=== PATIENT | female | born 1960 | race Caucasian/White ===

== ENCOUNTER → 2016-06-30 | Outpatient (CLI) | payer MEDICARE, MEDICAID ==
[~2016-06-30] MED LIST: ABILIFY5 MG PO; ACYCLOVIR800 MG PO; AEROCHAMBER1 DEV IH; AK-TRACIN500 U/GM OP; ALBUTEROL2 PUFFS/17 IN; AMOXICILLIN AND1 TA2 PO; AMOXIL500 MG PO; ARIPIPRAZOLE5 MG PO; AUGMENTIN; AUGMENTIN1 TA2 PO; AZITHROMYCIN250 M1 PO; BACLOFEN 10MG T10 MG PO; BACTROBAN2% TP; BENADRYL 50MG C50 MG PO; BENZONATATE100 MG PO; BISOPROLOL5 MG PO; BREO ELLIPTA1 POW IH; BROMFED DM COU118 ML PO; BUSPAR 10MG TAB10 MG PO; BUSPIRONE 5MG TA5 MG PO; CEFDINIR 300MG300 MG PO; CEFUROXIME AXE500 MG PO; CETIRIZINE HCL10 MG PO; CHEWABLE ASPIRI81 MG PO; CIPRO 250MG TA250 MG PO; CLINDAMYCIN HC300 MG PO; CLONAZEPAM0.5 M1 PO; DARVOCET-N6 EACH/PAK PO; DIABETA5 MG PO; DICLOFENAC 50MG50 MG PO; DOXEPIN 25MG CA25 MG PO; DOXYCYCLINE HY100 M3 PO; DOXYCYCLINE HY100 M4 PO; DOXYCYCLINE100 M1 PO; EC NAPROSYN500 MG PO; ESCITALOPRAM20 MG PO; ETODOLAC200 MG PO; ETODOLAC400 MG PO; FLEXERIL10 MG PO; FLUOXETINE HYDR20 MG PO; FUROSEMIDE 20MG20 MG PO; FUROSEMIDE 40MG40 M1 PO; GABAPENTIN 600600 MG PO; GABAPENTIN300 M1 PO; GABAPENTIN300 MG PO; GLYBURIDE5 MG PO; GOLYTELY 44000 ML/BO PO; HUMALOG100 U/ML SC; HYDROXYYZINE PA25 MG PO; HYDROXYZINE 25M25 MG PO; HYDROXYZINE PAM25 MG PO; INDOMETHACIN50 MG PO; INSULIN GL100 UNITS/ SC; Isosorbide Mono60 MG PO; K-DUR 2020 MEQ PO; KEFLEX 500MG.500 MG PO; KEFLEX500 M1 PO; LASIX40 MG PO; LEXAPRO 20 MG T20 MG PO; LISINOPRIL HCTZ1 TAB PO; LISINOPRIL10 MG PO; LISINOPRIL2.5 MG PO; LOMOTIL 2.5MG.2.5 MG PO; LORTAB 5/500 501 TAB PO; LORTAB 500 MG-71 TAB PO; LOVASTATIN20 MG PO; LYRICA50 M1 PO; MACROBID 100MG100 M1 PO; MACROBID 100MG100 MG PO; MACROBID100 M3 PO; MEDROL 4MG. DOSE4 MG PO; MELOXICAM15 MG PO; MORGIDOX 1X100100 MG PO; MOTRIN 600MG.600 MG PO; Monodox100 MG PO; NAPROSYN500 M1 PO; NAPROXEN SODIU500 MG PO; NOVOLIN 70/30 710 ML SC; NOVOLOG FLEX100 U/ML SC; NOVOLOG MIX 70/10 M1 SC; OMEPRAZOLE40 MG PO; OMNICEF 300 MG300 MG PO; ONDANSETRON HYDR8 MG PO; ONDANSETRON4 M1 PO; PENTOXIFYL XR400 MG PO; PERCOCET 325 MG1 TA3 PO; PERCOCET 325 MG1 TA4 PO; PHENERGAN 25MG.25 M1 PO; POTASSIUM CHLO10 ME1 PO; POTASSIUM CHLO20 ME4 PO; PRAMIPEXOLE DIHY1 M1 PO; PREDNISONE 10MG10 MG PO; PREDNISONE20 MG PO; PREGABALIN 50MG50 MG PO; PROAIR HFA0.09 MG/AC INH; PROZAC 20MG CAP20 MG PO; ROBAXIN500 M1 PO; SINGULAIR10 MG PO; SYNTHROID 0.1M0.1 MG PO; SYNTHROID0.075 MG PO; TESSALON PERLE100 M1 PO; TESSALON PERLE100 MG PO; TIZANIDINE HCL 44 MG PO; TOPAMAX50 MG PO; TRAMADOL 50MG T50 M1 PO; TRAMADOL 50MG T50 MG PO; TRAMADOL HYDROC50 M1 PO; TRIMOX500 MG PO; TUSSIONEX PENN115 ML PO; TYLENOL W/CODEI1 TA2 PO; ULTRAM 50 MG TA50 MG PO; ULTRAM50 MG PO; VIBRAMYCIN 100100 MG PO; ZITHROMAX TRI-500 M1 PO; ZITHROMAX Z PA250 MG PO; ZITHROMAX Z-PA250 M1 PO; ZOFRAN ODT4 MG PO; ZYPREXA15 MG PO; ZYPREXA5 MG PO
[2016-06-30 18:55] LABS: LYMPH # 2.8 K/mm3 (0.7-4.5); LYMPH % 31.3 % (10-50.0)
== END ==
LOC: LAB 17:50
PROVIDERS: Nurse Practitioner Family
DX: D72.829 Elevated white blood cell count, unspecified (principal)

== ENCOUNTER 2016-07-04 14:32 | Emergency (ER) | payer MEDICARE, MEDICAID ==
[~2016-07-04] VITALS: Ht 167.6 cm; Wt 102.1 kg
[~2016-07-04 14:32] MED LIST changes: -BROMFED DM COU118 ML PO
[2016-07-04 15:13] LABS: HEMOGLOBIN 12.3 g/dL (12.2-16.2); LYMPH # 3.5 K/mm3 (0.7-4.5); LYMPH % 26.3 % (10-50.0)
[2016-07-04 15:39] LABS: BUN 18 mg/dL (7-18)
[2016-07-04 15:41] LABS: GFR (ESTIMATED) 74 ML/MIN (59-)
--- NOTE | 2016-07-04 16:36 | Emergency Room Report ---
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 N Clinical Suspician of Infection? N Mental Status: 1 - Regular (Normal Baseline) Sepsis Risk:Low Sepsis Risk Have you (or family members/close friends) recently traveled outside the [place]? N If Yes, where/when: Have you had exposure to infectious disease within the past month? N TB? Other? Specify: Comment The patient says she is here because her blood pressure was low at home, 83 systolic. She says that she had a "blackout spell" on the toilet and caught herself before she fell. She says that her family told her that she was very drowsy. She denies alcohol or drug use. She says she is not on any pain medications or sedating medications such as nerve pills were benzodiazepines. She says she has a chronic cough for 3-4 years due to chronic obstructive pulmonary disease. She has had vomiting and diarrhea for 3 weeks. She says she has seen her PCP and has been diagnosed with a virus. She says that she has some chronic hoarseness and is supposed to have a swallowing test tomorrow. She has artery been evaluated by ENT and they told her she did not have a mass in her throat. ALLERGIES Coded Allergies: Sulfa (Sulfonamide Antibiotics) (06/06/16) levofloxacin (From LEVAQUIN) (06/06/16) Home Medications Active Scripts Naproxen (Naprosyn 500MG Tab) 500 MG PO BID #14 TAB Prov: 06/13/16 Methylprednisolone (Medrol Dose Vikram) 4 MG PO UD #1 VIKRAM Prov: 06/13/16 Reported Medications Furosemide 40 MG PO BID #30 TAB Topiramate (Topamax) 50 MG PO DAILY Buspirone Hcl (Buspar 10MG) 10 MG PO TID IBUPROFEN (Motrin 600MG) 600 MG PO Q6HP PRN PAIN #90 Gabapentin 300 MG PO TID #90 TIZANIDINE HCL (Tizanidine Hcl 4 Mg Tablet) 4 MG PO Q8 #90 FLUTICASONE/VILANTEROL (Breo Ellipta 100-25 Mcg INH) 1 POW IH DAILY #60 Pentoxifylline 400 MG PO DAILY #60 Levothyroxine Sodium (Synthroid 0.1MG) 100 MCG PO DAILY INSULIN ASPART PROTAM & ASPART (Novolog Mix 70-30 Vial) 65 UNITS SC BID Lovastatin 10 MG PO DAILY #15 Lisinopril 10 MG PO DAILY #30 Escitalopram Oxalate (Lexapro 20MG) 20 MG PO DAILY PRAMIPEXOLE DI-HCL (Pramipexole Dihydrochloride) 1 MG PO TID #90 TAB Omeprazole (Omeprazole 40MG) 40 MG PO DAILY #30 History Medical History General CAD? No Angina: Yes [place]: No Hypertension? Yes Hyperlipidemia? No CHF? Yes DVT? No PE? No COPD? Yes Asthma? Yes Anemia? No GERD? No Gastric ulcers? No GI Bleed? No Hernia? Yes Thyroid Problems? No Hypothyroidism? No CVA? No Seizures? 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 Yes Renal Insuffiency? No End Stage Renal Disease? No UTI? Yes Stones? No BPH? No GB Disease: Yes Nephritic Syndrome? No Asplenia? No Hepatitis? No Sickle Cell Disease? No Arthritis? Yes Migraines? No Cataracts? Yes Glaucoma? No MRSA? No HIV? No TB? No Anxiety? No Depression? No Cancer? No More? 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 Respiratory cough (chronic), shortness of breath (chronic) Cardiovascular denies chest pain Gastrointestinal denies diarrhea, denies vomiting Physical Exam Vital Signs Vital Signs Date Time Temp Pulse Resp B/P Pulse O2 O2 Flow FiO2 Ox Delivery Rate 07/04 1613 68 16 115/62 97 07/04 1443 98.5 71 16 134/70 96 General Appearance obese Eye Exam - bilateral eye normal exam, bilateral eye PERRL, bilateral eye EOMI Ear, Nose, Throat hearing grossly normal, normal ENT inspection Neck normal inspection, non-tender, supple, full range of motion Respiratory Status Yes: trachea midline, chest symmetrical, non tender chest. No: respiratory distress. Lung Sounds bilateral: normal breath sounds, lungs clear. 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 Mental status normal mood/affect Skin warm/dry, multiple scars on her chest back and arms. She says she has a nervous condition causing her to pick her skin. Medical Decision Making LABS/Meds/Orders Pt receiving controlled substance in ED? No Results/Orders Laboratory Tests 07/04/16 1659: ABG pH 7.32 L, ABG pCO2 (Temp Corrct 41.1, ABG pO2 (Temp Correct 79.0 L, ABG HCO3 20.9 L, ABG Total CO2 22.2 L, ABG O2 Sat (Calculated) 95.4, ABG Base Excess -5.1 L, [place]acho Test Y, Blood Gas Comments R/R 07/04/16 1650: Opiates Screen NEGATIVE, Urine Methadone Screen NEGATIVE, Barbiturates NEGATIVE, Phencyclidine Screen NEGATIVE, Amphetamines Screen NEGATIVE, Benzodiazepines Screen NEGATIVE, Cocaine Screen NEGATIVE, Marijuana (THC) Screen NEGATIVE, Urine Color YELLOW, Urine Appearance CLEAR, Urine pH 6.0, Ur Specific [place] <= 1.005 , Urine Protein NEGATIVE, Urine Ketones NEGATIVE, Urine Blood NEGATIVE, Urine Nitrate NEGATIVE, Urine Bilirubin NEGATIVE, Urine Urobilinogen 0.2, Ur Leukocyte Esterase 1+ H, Urine WBC 5-10, Ur Squamous Epith Cells OCC, Amorphous Sediment 1+, Urine Glucose NEGATIVE 07/04/16 1457: TSH 1.26, Free T4 1.04 07/04/16 1457: Sodium 141, Potassium 3.5, Chloride 105, Carbon Dioxide 25, BUN 18, Creatinine 0.8, Estimated Creat Clear 125, Estimated GFR (MDRD) 74, Glucose 160 H, Calcium 8.9, Total Bilirubin 0.2, AST 12 L, ALT 18, Alkaline Phosphatase 90, Creatine Kinase 82, CK-MB (CK-2) Rel Index 2.2, CK and CKMB Interp 1.8, Troponin I < 0.02 , Total Protein 7.2, Albumin 3.3 L, Globulin 3.9 H, Albumin/Globulin Ratio 0.8 L, WBC 13.2 H, RBC 4.33, Hgb 12.3, Hct 37.4, MCV 86.5, RDW 14.5, Plt Count 308 , MPV 8.3, Gran % 66.0, Gran # 8.7 H, Lymphocytes % 26.3, Monocytes % 4.1, Eosinophils % 2.9, Basophils % 0.7, Lymphocytes # 3.5, Monocytes # 0.5, Eosinophils # 0.4, Basophils # 0.1, PUBS MCHC 33.0, MCH 28.6, Salicylates 5.2, Acetaminophen 0 L, Alcohols 0 Current Medication Orders Sig/Lyla Start time Last Medication Dose Route Stop Time Status Admin Sodium Chloride 10 ML PRN PRN 07/04 1500 AC IV 07/05 1448 Orders Procedure Date/time Status CULTURE, URINE 07/04 1650 Active URINALYSIS/COMPLETE 07/04 1643 Complete ARTERIAL BLOOD GAS REQUEST 07/04 1635 Active THYROID STIMULATING HORMONE 07/04 1634 Complete SALICYLATE 07/04 1634 Complete FREE T4 07/04 1634 Complete DRUG ABUSE SCREEN (TRIAGE) 07/04 1634 Complete ALCOHOL 07/04 1634 Complete Acetaminophen 07/04 1634 Complete WRAPAROUND FACILITATOR 07/04 1459 Active ELECTROCARDIOGRAM REQUEST 07/04 1458 Active IV SALINE LOCK 07/04 1448 Active CBC WITH AUTO DIFF 07/04 1448 Complete CARDIAC ENZYMES 07/04 1448 Complete CHEM 12 PROFILE 07/04 1448 Complete 12 LEAD EKG-LUCIANA (INITIAL) 07/04 UNK Active CM/EKG CM/EKG Comments EKG interpreted by Gee Meeks MD: Rhythm: sinus Rate: 67 [place]: normal Ectopy: none Conduction: First-degree AV block ST Segment Changes: none T Wave Changes: none Q Waves: none No evidence of acute ischemia or injury Progress - The patient had a chest CT done here on June 28, result reviewed. She refuses chest x-ray today. 5:30 PM: The patient says she feels better and wants to go home. Blood pressure rechecked, 121 systolic in the LEFT arm on 2 sequential readings. Departure Departure Disposition DC Home or Self Care(routine) Clinical Impression Primary Impression: History of hypotension Secondary Impressions: Drowsiness, Near syncope Condition STABLE Referrals Pablo SANCHEZ,Jose Rafael Franks (Family) Call for appointment, to be seen within 2 days Additional Instructions Return to the emergency department if your blood pressure drops again or if fainting or any other concern. ED Critical Care Critical Care No at [id number]
[2016-07-04 17:00] LABS: ALLEN'S TEST Y; ARTERIAL ABE -5.1 MMOL/L (-2.4-+2.3); ARTERIAL TCO2 22.2 MMOL/L (23-27); OXYGEN R/A
[2016-07-04 17:04] LABS: URINE BILIRUBIN - DIPSTICK NEGATIVE (NEG); URINE BLOOD NEGATIVE (NEG)
[2016-07-04 17:16] LABS: AMPHETAMINES/METAMPHETAMINES NEGATIVE ng/mL (<1000)
[2016-07-04 17:27] LABS: URINE SQUAMOUS CELLS OCC #/hpf (0-5)
[2016-07-04 17:45] VITALS: BP 121/76
[2016-09-12] MEDS ORDERED: MEDROL 4MG. DOSE4 MG PO (13:10)
[2016-09-12] MEDS ORDERED: ZITHROMAX Z PA250 MG PO (13:10)
[2016-09-12] MEDS ORDERED: BROMFED DM COU118 ML PO (13:10)
== END 2016-07-04 17:46 | disposition home or self-care (01) ==
LOC: ER 14:32
PROVIDERS: Emergency Medicine
DX: I95.9 Hypotension, unspecified (principal); R55 Syncope and collapse; E10.9 Type 1 diabetes mellitus without complications; Z79.4 Long term (current) use of insulin; Z72.0 Tobacco use; J44.9 Chronic obstructive pulmonary disease, unspecified; Z79.899 Other long term (current) drug therapy
CPT/HCPCS: G6040

== ENCOUNTER 2016-07-12 15:51 | Emergency (ER) | payer MEDICARE, MEDICAID ==
[~2016-07-12] VITALS: Ht 167.6 cm; Wt 102.5 kg
--- NOTE | 2016-07-12 16:00 | Emergency Room Report ---
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 N Clinical Suspician of Infection? N Mental Status: 1 - Regular (Normal Baseline) Sepsis Risk:Low Sepsis Risk Have you (or family members/close friends) recently traveled outside the [place]? N If Yes, where/when: Have you had exposure to infectious disease within the past month? N TB? Other? Specify: Source patient, RN notes reviewed, old records Exam Limitations no limitations Comment This is a 55-year-old female with a past medical history significant for chronic obstructive pulmonary disease, hypertension, congestive heart failure, diabetes mellitus who presents to the emergency department for sternal chest pressure that is nonradiating and began last night while at rest. No exacerbating or alleviating factors except for coughing which makes the pain worse. However, she does have pain at baseline even when not coughing. She has no history of coronary stents, but does have nonocclusive disease on cardiac cath 10/2015. She has no shortness of breath, vomiting, diaphoresis with a pressure. It is nonradiating. She has had pain like this before secondary to her chronic obstructive pulmonary disease. She denies any recent illnesses including no fevers. ALLERGIES Coded Allergies: Sulfa (Sulfonamide Antibiotics) (06/06/16) levofloxacin (From LEVAQUIN) (06/06/16) Home Medications Active Scripts Naproxen (Naprosyn 500MG Tab) 500 MG PO BID #14 TAB Prov: 06/13/16 Methylprednisolone (Medrol Dose Vikram) 4 MG PO UD #1 VIKRAM Prov: 06/13/16 Reported Medications Furosemide 40 MG PO BID #30 TAB Topiramate (Topamax) 50 MG PO DAILY Buspirone Hcl (Buspar 10MG) 10 MG PO TID IBUPROFEN (Motrin 600MG) 600 MG PO Q6HP PRN PAIN #90 Gabapentin 300 MG PO TID #90 TIZANIDINE HCL (Tizanidine Hcl 4 Mg Tablet) 4 MG PO Q8 #90 FLUTICASONE/VILANTEROL (Breo Ellipta 100-25 Mcg INH) 1 POW IH DAILY #60 Pentoxifylline 400 MG PO DAILY #60 Levothyroxine Sodium (Synthroid 0.1MG) 100 MCG PO DAILY INSULIN ASPART PROTAM & ASPART (Novolog Mix 70-30 Vial) 65 UNITS SC BID Lovastatin 10 MG PO DAILY #15 Lisinopril 10 MG PO DAILY #30 Escitalopram Oxalate (Lexapro 20MG) 20 MG PO DAILY PRAMIPEXOLE DI-HCL (Pramipexole Dihydrochloride) 1 MG PO TID #90 TAB Omeprazole (Omeprazole 40MG) 40 MG PO DAILY #30 History Medical History General CAD? No Angina: Yes [place]: No Hypertension? Yes Hyperlipidemia? No CHF? Yes DVT? No PE? No COPD? Yes Asthma? Yes Anemia? No GERD? No Gastric ulcers? No GI Bleed? No Hernia? Yes Thyroid Problems? No Hypothyroidism? No CVA? No Seizures? 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 Yes Renal Insuffiency? No End Stage Renal Disease? No UTI? Yes Stones? No BPH? No GB Disease: Yes Nephritic Syndrome? No Asplenia? No Hepatitis? No Sickle Cell Disease? No Arthritis? Yes Migraines? No Cataracts? Yes Glaucoma? No MRSA? No HIV? No TB? No Anxiety? No Depression? No Cancer? No More? 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/A Family History Family Hx Diabetes Yes CAD Yes Hypertension Yes Hyperlipidemia No Cancer Yes TB No Social History Smoking Hx Smoker: Current Every Day Smoker Tobacco: Yes Type Cigarettes Packs/day 1 1/2 - 2 Packs Alcohol Alcohol: No Review of Systems All Other Systems Reviewed and Negative Physical Exam Vital Signs Vital Signs Date Time Temp Pulse Resp B/P Pulse O2 O2 Flow FiO2 Ox Delivery Rate 07/12 1553 98.4 78 16 150/80 96 General Appearance normal appearance, WD/WN Eye Exam - bilateral eye normal exam, bilateral eye PERRL, bilateral eye EOMI Neck normal inspection, non-tender, supple, full range of motion Respiratory Status Yes: chest symmetrical, non tender chest. No: respiratory distress. Lung Sounds bilateral: normal breath sounds, lungs clear. Cardiovascular normal exam, regular rate/rhythm, no peripheral edema, no gallop, no JVD, no murmur, no rub, normal peripheral pulses Peripheral Pulses Pulses normal Yes Gastrointestinal normal bowel sounds, normal exam, non tender Back normal inspection, no CVA tenderness, no vertebral tenderness Neurologic alert, no motor/sensory deficits, oriented x 3 Skin intact, normal color, warm/dry Medical Decision Making LABS/Meds/Orders Pt receiving controlled substance in ED? No Results/Orders Laboratory Tests 07/12/16 1605: Sodium 142, Potassium 3.2 L, Chloride 105, Carbon Dioxide 27, BUN 15, Creatinine 0.7, Estimated Creat Clear 143, Estimated GFR (MDRD) 86, Glucose 107 H, Calcium 9.2, Total Bilirubin 0.3, AST 11 L, ALT 16, Alkaline Phosphatase 91, Creatine Kinase 87, CK-MB (CK-2) Rel Index 1.6, CK and CKMB Interp 1.4, Troponin I < 0.02, Total Protein 7.3, Albumin 3.5, Globulin 3.8 H, Albumin/Globulin Ratio 0.9 L, WBC 10.4, RBC 3.99 L, Hgb 11.4 L, Hct 33.0 L, MCV 82.8, RDW 15.6, Plt Count 317, Gran % 74.7, Gran # 7.8, Lymphocytes % 21.1, Monocytes % 4.2, Lymphocytes # 2.2, Monocytes # 0.4, PUBS MCHC 34.5, MCH 28.6 Current Medication Orders Sig/Lyla Start time Last Medication Dose Route Stop Time Status Admin Aspirin 324 MG ONCE ONE 07/12 1600 DC 07/12 PO 07/12 1601 1601 Aspirin 0 .STK-MED ONE 07/12 1600 DC .ROUTE Sodium Chloride 10 ML PRN PRN 07/12 1600 AC IV 07/13 1558 Aspirin 0 .STK-MED ONE 07/12 1558 DC .ROUTE Orders Procedure Date/time Status TROPONIN I 07/12 1900 Active ELECTROCARDIOGRAM REQUEST 07/12 1559 Active IV SALINE LOCK 07/12 1558 Active CBC WITH AUTO DIFF 07/12 1558 Complete CARDIAC ENZYMES 07/12 155 Complete CHEM 12 PROFILE 07/12 155 Complete 12 LEAD EKG-PRISCILLA (INITIAL) 07/12 UNK Active CM/EKG CM/EKG EKG rate (75), no evid. of ischemic chgs, normal QRS, normal MS XRAY/CT/US XRAY/CT/US XRAY chest Xray Results normal/NAD Departure Departure Disposition Against Medical Advice Clinical Impression Primary Impression: Chest pain Qualifiers: Chest pain type: unspecified Qualified Code: R07.9 - Chest pain, unspecified Condition STABLE Referrals Lois Egan (Family) ED Critical Care Critical Care No Comments Patient has a reassuring chest x-ray with no signs of a widened mediastinum, cardiac megaly, pneumothorax or focal consolidation to suggest pneumonia. Electrocardiogram does not show any signs of acute ischemia. Her vital signs are stable with no signs of worrisome hypo-or significant hypertension. She does not have any distress while in the emergency department. She was given a full strength aspirin. Her initial troponin is negative and a second is ordered at 1900. However, when I went to reassess the patient and discussed results she decided that she would not like to wait and wants to leave AGAINST MEDICAL ADVICE. I have discussed the risks of this including , disability, worsening condition in front of her and 3 other family members with her and she still states that she would like to go home and understands these risks. She has sound decision-making capacity and leaves AGAINST MEDICAL ADVICE. She did recently have a cardiac catheterization in October of last year which showed nonocclusive disease, and this is reassuring, but would not rule out unstable angina which I have explained to her. She will need to follow up with primary care provider tomorrow for reevaluation. Other differential diagnoses include esophageal spasm, costochondritis, bronchospasm, chest wall strain. at 1706
[2016-07-12 16:13] LABS: HEMOGLOBIN 11.4 g/dL (12.2-16.2)
[2016-07-12 16:14] LABS: LYMPH # 2.2 K/mm3 (0.7-4.5); LYMPH % 21.1 % (10-50.0)
--- NOTE | 2016-07-12 16:33 | RADIOLOGY REPORT PS360 ---
CHEST(2 VIEWS-NOT PORTABLE) HISTORY: Chest pain, pressure, cough CHEST PAIN COMPARISON: 06/21/2016 FINDINGS: The cardiomediastinal silhouette and pulmonary vascularity are within normal limits. There is a described opacity in the left lung base is no longer apparent consistent with improvement in atelectasis or infiltrate. The lungs are clear. Mild again change thoracic spine.. No acute bony abnormalities. IMPRESSION: No acute finding
[2016-07-12 16:48] LABS: BUN 15 mg/dL (7-18)
[2016-07-12 16:50] LABS: GFR (ESTIMATED) 86 ML/MIN (59-)
[2016-07-12 17:10] VITALS: BP 145/78
[2016-09-12] MEDS ORDERED: BROMFED DM COU118 ML PO (13:10)
[2016-09-12] MEDS ORDERED: MEDROL 4MG. DOSE4 MG PO (13:10)
[2016-09-12] MEDS ORDERED: ZITHROMAX Z PA250 MG PO (13:10)
== END 2016-07-12 17:11 | disposition left against medical advice (07) ==
LOC: ER 15:51
PROVIDERS: Emergency Medicine
DX: R07.9 Chest pain, unspecified (principal); J44.9 Chronic obstructive pulmonary disease, unspecified; I50.9 Heart failure, unspecified; E11.9 Type 2 diabetes mellitus without complications; Z79.4 Long term (current) use of insulin; I10 Essential (primary) hypertension; Z72.0 Tobacco use

== ENCOUNTER → 2016-07-17 | Outpatient (CLI) | payer MEDICARE, MEDICAID ==
[~2016-07-17] MED LIST changes: +BROMFED DM COU118 ML PO
== END ==
LOC: RAD 09:11
DX: R10.10 Upper abdominal pain, unspecified (principal); K86.89 Other specified diseases of pancreas

== ENCOUNTER 2016-08-29 20:57 | Emergency (ER) | payer MEDICARE, MEDICAID ==
[~2016-08-29] VITALS: Ht 167.6 cm; Wt 90.7 kg
[~2016-08-29 20:57] MED LIST changes: -BROMFED DM COU118 ML PO
--- NOTE | 2016-08-29 21:59 | Emergency Room Report ---
History of Present Illness Time Seen by MD Kaba ALLERGIES Coded Allergies: Sulfa (Sulfonamide Antibiotics) (08/15/16) levofloxacin (From LEVAQUIN) (08/15/16) Home Medications Active Scripts Naproxen (Naprosyn 500MG Tab) 500 MG PO BID #14 TAB Prov: 06/13/16 Reported Medications Furosemide 40 MG PO BID #30 TAB Topiramate (Topamax) 50 MG PO DAILY Buspirone Hcl (Buspar 10MG) 10 MG PO TID IBUPROFEN (Motrin 600MG) 600 MG PO Q6HP PRN PAIN #90 FLUTICASONE/VILANTEROL (Breo Ellipta 100-25 Mcg INH) 1 POW IH DAILY #60 Levothyroxine Sodium (Synthroid 0.1MG) 100 MCG PO DAILY INSULIN ASPART PROTAM & ASPART (Novolog Mix 70-30 Vial) 65 UNITS SC BID Lovastatin 10 MG PO DAILY #15 Escitalopram Oxalate (Lexapro 20MG) 20 MG PO DAILY Omeprazole (Omeprazole 40MG) 40 MG PO DAILY #30 History Medical History General CAD? No Angina: Yes [place]: No Hypertension? Yes Hyperlipidemia? No CHF? Yes DVT? No PE? No COPD? Yes Asthma? Yes Anemia? No GERD? No Gastric ulcers? No GI Bleed? No Hernia? Yes Thyroid Problems? No Hypothyroidism? No CVA? No Seizures? 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 Yes Renal Insuffiency? No End Stage Renal Disease? No UTI? Yes Stones? No BPH? No GB Disease: Yes Nephritic Syndrome? No Asplenia? No Hepatitis? No Sickle Cell Disease? No Arthritis? Yes Migraines? No Cataracts? Yes Glaucoma? No MRSA? No HIV? No TB? No Anxiety? No Depression? No Cancer? No More? 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 Respiratory denies cough, denies shortness of breath Cardiovascular denies chest pain, denies syncope Gastrointestinal denies abdominal pain, denies diarrhea, denies vomiting Genitourinary denies: dysuria, frequency, hesitancy, hematuria. Musculoskeletal denies back pain, denies joint pain, denies joint swelling, denies neck pain Skin denies rash Psychiatric/Neurological see HPI, headache, denies seizure Physical Exam Vital Signs Vital Signs Date Time Temp Pulse Resp B/P Pulse O2 O2 Flow FiO2 Ox Delivery Rate 08/29 2058 98.5 77 16 110/62 98 - WBC >12,000 or <4,000 or 10% bands? 2 or more SIRS Criteria Met? B/P:110/62 MAP:78 Creatinine >2.0? UA output<0.5ml/kg/hr for 2 hrs? Platelet count >100,000? Lactate >2.0mmol/1? INR >1.2 or PTT > than 60 sec? Evidence of Organ Dysfunction? Provider documented clinical suspician of infection? N Sepsis Criteria Count: 0 Sepsis Risk: Low Sepsis Risk General Appearance no apparent distress Eye Exam - bilateral eye PERRL, bilateral eye EOMI Ear, Nose, Throat normal ENT inspection Neck non-tender Respiratory Status No: respiratory distress. 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 No Results/Orders Orders Procedure Date/time Status DIET-NOTHING BY MOUTH 08/[address] HEAD W/O CONTRAST 08/[address] CERVICAL SPINE W/O CONT. 08/[address] HEAD REQ 03/[address] SCAN REQ 08/29 2105 Complete XRAY/CT/US XRAY/CT/US CT head, C-spine CT interpretation by discussed w/radiologist Time results known: 2156 CT Results no fracture seen Departure Departure Time of Disposition 2153 Disposition DC Home or Self Care(routine) Clinical Impression Primary Impression: Head contusion Qualifiers: Encounter type: initial encounter Contusion of head detail: scalp Qualified Code: S00.03XA - Contusion of scalp, initial encounter Condition STABLE Referrals Pablo SANCHEZ,Jose Rafael Franks (Family) Patient Instructions DI for Headache Additional Instructions fluids and see pcp Discharge Counseling Counseled pt/family regarding diagnosis, test results, follow up needs ED Critical Care Critical Care No at 2155
[2016-08-29 22:02] VITALS: BP 115/60
--- NOTE | 2016-08-30 05:08 | RADIOLOGY REPORT PS360 ---
CT HEAD W/O CONTRAST HISTORY: Headache following injury HIT HEAD ON WINDOW SILL ORDERING PHYSICIAN: Daniela Shah MD PATIENT AGE: 55 years COMPARISON: 09/01/2015 TECHNIQUE: Axial images obtained without contrast. Brain and bone windows reviewed. FINDINGS: No midline shift, mass effect, intracranial hemorrhage, hydrocephalus, or extra-axial fluid collection is evident. The calvarium has an unremarkable appearance. No mastoid effusion. The visualized paranasal sinuses are unremarkable. IMPRESSION: Negative CT head without contrast. No acute finding.
--- NOTE | 2016-08-30 05:11 | RADIOLOGY REPORT PS360 ---
CT CERVICAL SPINE W/O CONT INDICATION: Neck pain following injury HIT HEAD ON WINDOW SILL ORDERING PHYSICIAN: Daniela Shah MD PATIENT AGE: 55 years COMPARISON: None TECHNIQUE: Axial images are obtained without contrast. Sagittal and coronal reformatted images are reviewed as well. FINDINGS: No fracture or dislocation is evident. C2-C3, C3-C4, present unremarkable appearance. Minimal degenerative disc disease C4-C5. Degenerative disc disease C5-C6 with uncovertebral hypertrophy and left-sided foraminal narrowing and lateral recess narrowing area in C6-C7: Degenerative disc disease with endplate hypertrophic change. C7-T1 unremarkable. Lung apices are clear. Scattered small nodes are present within the neck. IMPRESSION: 1. No acute fracture. 2. Spondylosis of the cervical spine as described above
[2016-09-12] MEDS ORDERED: MEDROL 4MG. DOSE4 MG PO (13:10)
[2016-09-12] MEDS ORDERED: BROMFED DM COU118 ML PO (13:10)
[2016-09-12] MEDS ORDERED: ZITHROMAX Z PA250 MG PO (13:10)
== END 2016-08-29 22:03 | disposition home or self-care (01) ==
LOC: ER 20:57
DX: S00.03XA Contusion of scalp, initial encounter (principal); W22.8XXA Striking against or struck by other objects, initial encounter; Y92.009 Unspecified place in unspecified non-institutional (private) residence as the place of occurrence of the external cause

== ENCOUNTER 2016-12-11 08:37 | Emergency (ER) | payer MEDICARE ==
[~2016-12-11] VITALS: Ht 167.6 cm; Wt 99.8 kg
[~2016-12-11 08:37] MED LIST changes: +BENTYL GENERIC10 MG PO; +BROMFED DM COU118 ML PO; +RANITIDINE 150150 MG PO
--- NOTE | 2016-12-11 08:51 | Emergency Room Report ---
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 N Clinical Suspician of Infection? N Mental Status: 1 - Regular (Normal Baseline) Sepsis Risk:Low Sepsis Risk Have you (or family members/close friends) recently traveled outside the [place]? N If Yes, where/when: Have you had exposure to infectious disease within the past month? N TB? Other? Specify: Patient with chronic sciatica, also recently placed on diuretic per Dr. Pritchett for edema, which is improving. She states she always has foot numbness and is diabetic, but symptoms seem somewhat worse over the last 24 hours. No loss of bowel or bladder function. She states her "varicose vein popped out" on the right thigh and she is worried about possible DVT. No SOB. No calf pain or any new or acute edema today. ALLERGIES Coded Allergies: Sulfa (Sulfonamide Antibiotics) (08/15/16) levofloxacin (From LEVAQUIN) (08/15/16) Home Medications Reported Medications Hydroxyzine Pamoate 25 MG PO Q6 #90 Dicyclomine Hcl (Bentyl (Generic) 10MG Capsule) 10 MG PO Q6H #120 RANITIDINE HCL (Ranitidine HCl) 150 MG PO DAILY #30 Furosemide 40 MG PO BID #30 TAB Topiramate (Topamax) 50 MG PO DAILY Buspirone Hcl (Buspar 10MG) 10 MG PO TID FLUTICASONE/VILANTEROL (Breo Ellipta 100-25 Mcg INH) 1 POW IH DAILY #60 Levothyroxine Sodium (Synthroid 0.1MG) 100 MCG PO DAILY INSULIN ASPART PROTAM & ASPART (Novolog Mix 70-30 Vial) 65 UNITS SC BID Lovastatin 10 MG PO DAILY #15 Escitalopram Oxalate (Lexapro 20MG) 20 MG PO DAILY Omeprazole (Omeprazole 40MG) 40 MG PO DAILY #30 History Medical History General CAD? No Angina: Yes [place]: No Hypertension? Yes Hyperlipidemia? No CHF? Yes DVT? No PE? No COPD? Yes Asthma? Yes Anemia? No GERD? No Gastric ulcers? No GI Bleed? No Hernia? Yes Thyroid Problems? No Hypothyroidism? No CVA? No Seizures? 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 Yes Renal Insuffiency? No End Stage Renal Disease? No UTI? Yes Stones? No BPH? No GB Disease: Yes Nephritic Syndrome? No Asplenia? No Hepatitis? No Sickle Cell Disease? No Arthritis? Yes Migraines? No Cataracts? Yes Glaucoma? No MRSA? No HIV? No TB? No Anxiety? No Depression? No Cancer? No More? 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 LMP N/A Family History Family Hx Diabetes Yes CAD Yes Hypertension Yes Hyperlipidemia No Cancer Yes TB No Social History Smoking Hx Smoker: Current Every Day Smoker Tobacco: Yes Type Cigarettes Packs/day 1 1/2 - 2 Packs Alcohol Alcohol: No Review of Systems All Other Systems Reviewed and Negative Cardiovascular see HPI Musculoskeletal see HPI Psychiatric/Neurological see HPI Physical Exam Vital Signs Vital Signs Date Time Temp Pulse Resp B/P Pulse O2 O2 Flow FiO2 Ox Delivery Rate 12/11 0840 98.5 86 16 116/79 98 General Appearance normal appearance, WD/WN, no apparent distress Eye Exam - bilateral eye normal exam, bilateral eye PERRL, bilateral eye EOMI Neck normal inspection, non-tender, supple, full range of motion Respiratory Status Yes: trachea midline, chest symmetrical, non tender chest. No: respiratory distress, tender on palpation, use of accessory muscles, pain on inspiration, pain on expiration, productive cough, non productive cough. Lung Sounds bilateral: normal breath sounds, lungs clear. Cardiovascular normal exam, regular rate/rhythm, no peripheral edema, no gallop, no JVD, no murmur, no rub, normal peripheral pulses Peripheral Pulses Peripheral Pulses 2+ dorsalis pedis (R), 2+ dorsalis pedis (L) (and PT bilaterally) Gastrointestinal normal bowel sounds, normal exam, non tender, soft, no organomegaly, no pulsatile mass, no guarding, no rebound Back normal inspection, no vertebral tenderness, bowel/bladder continent, strt leg raising(L)-NML, strt leg raising(R)-NML Extremities non-tender, normal range of motion, normal capillary refill, no calf tenderness, varicosities on right lateral thigh, no ropiness, neg Reynold's, neg edema, no asymmetry Strength 5 Upper Ext (L), 5 Upper Ext (R), 5 Lower Ext (L), 5 Lower Ext (R) Neurologic alert, normal exam, no motor/sensory deficits, oriented x 3, peripheral neuropathy bilateral feet, neg straight leg test; no numbness to leg Glascow Coma Scale Glascow Coma Scale Response Value EYE response: 4 Spontaneously 4 MOTOR response: 6 OBEYS 6 VERBAL response: 5 Oriented & Converses 5 Total 15 Reflexes DTR 2+ ankle (R), 2+ ankle (L) Skin intact, normal color, warm/dry Medical Decision Making LABS/Meds/Orders Pt receiving controlled substance in ED? No Results/Orders Current Medication Orders Sig/Lyla Start time Last Medication Dose Route Stop Time Status Admin Naproxen 500 MG ONCE ONE 12/11 1000 AC PO 12/11 1001 Orders Procedure Date/time Status VENOUS LOWER EXT RT 12/11 0848 Complete XRAY/CT/US XRAY/CT/US Ultrasound lower extremity US results normal (neg DVT per tech) Departure Departure Time of Disposition 0956 Disposition DC Home or Self Care(routine) Clinical Impression Primary Impression: Right leg pain Ruled Out Impressions: DVT (deep venous thrombosis) Condition STABLE Referrals ORLY RODRIGUEZ (Family) Patient Instructions DI for Leg Pain Additional Instructions See your family doctor for follow up on pain of right leg and chronic sciatica; see Dr. Pritchett regarding chronic edema of leg; continue current medications; Rx Naproxen Discharge Counseling Counseled pt/family regarding diagnosis, test results, medications/RX, home care, follow up needs Prescriptions Current Visit Scripts NAPROXEN (NAPROXEN 500MG TAB) 500 MG PO BIDP PRN pain #20 TAB ED Critical Care Critical Care No at 1000
--- OUTSIDE RECORDS SUMMARY | 2016-12-11 09:24 | External Medical Summary Rpt ---
Author Author , Organization [employer] Address Unknown Phone Unavailable Care Team Providers Care Insurance Administrator Name Role Phone JARED-YANIQUE MOH, Unavailable Unavailable JARED-YANIQUE MOH PETER JULIÁN, PETER Unavailable Unavailable JULIÁN MIRANDA MICHAEL, MIRANDA Unavailable Unavailable MICHAEL [facility], Unavailable Unavailable [facility], Unavailable Unavailable [facility] [employer] Unavailable Unavailable INC, [employer] ALFARIS MOH, ALFARIS Unavailable Unavailable MOH JESUS SHANTHI, JESUS SHANTHI Unavailable Unavailable LUKE BERMUDEZ JR, Unavailable Unavailable LUKE BERMUDEZ JR, CHANI Unavailable Unavailable CHELSY MARRUFO, Unavailable Unavailable CHELSY DUEÑAS ALMAS FAD, ALMAS FAD Unavailable Unavailable [facility] Unavailable Unavailable SERVICES, [facility] Unavailable Unavailable SERVICES, [facility] Un[facility] Un[facility]available [facility]available [facility] COTTO BRO, COTTO Unavailable Unavailable BRO BEINEKE, BEINEKE Unavailable Unavailable BEINEKE ANITA, BEINEKE Unavailable Unavailable ANITA BESSON CATRACHITO, BESSON Unavailable Unavailable CATRACHITO BESSON, LAURIE A, Unavailable Unavailable BESSON, LAURIE A BAZZI TAR, BAZZI Unavailable Unavailable TAR ROB JANET, Unavailable Unavailable ROB JANET VIVIANA OLIVIA, Unavailable Unavailable VIVIANA OLIVIA MAR JARRELL, Unavailable Unavailable MAR JARRELL WILLIAM G, Unavailable Unavailable KANNAN LEYVA FLANNERY, FLANNERY Unavailable Unavailable FLANNERY ALL, FLANNERY ALL Unavailable Unavailable RISAGEORGIANA, Unavailable Unavailable [facility]ISAGE[facility]NA [facility] Unavailable Unavailable SERVICE, [facility] Unavailable Unavailable SERVICE, [facility] BRIZUELA JAM, BRIZUELA JAM Unavailable Unavailable SOMERS LAR, SOMERS LAR Unavailable Unavailable C SOPHIE LYONS MD Unavailable Unavailable [facility], José LYONS MD [facility], [facility] Unavailable Unavailable [facility], Unavailable [facility]available [facility]IP[facility] & Unavailable Unavailable DUBILIER, [facility] MICHAEL TER, MICHAEL TER Unavailable Unavailable CARIAS AMBREEN, CARIAS Unavailable Unavailable AMBREEN ARETHA, RAN J, Unavailable Unavailable CARIAS, RAN J [facility] Unavailable Unavailable [facility]available Unavailable [facility], Unavailable Unavailable [facility] Unavailable Unavailable ASSOCIATE, [facility]OCI[facility] Unavailable Unavailable LA, [facility] Unavailable Unavailable [facility], [facility], KHURRAM A, Unavailable Unavailable SUM[facility], KHURRAM A [facility] Unavailable Unavailable [facility] COOK KARLA, COOK KARLA Unavailable Unavailable CERDICK JR PETR, CEDRICK Unavailable Unavailable JR PETR HOMER AYLA, Unavailable Unavailable HOMER AYLA HOMER, FREDO, Unavailable Unavailable HOMER, FREDO [facility], Unavailable Unavailable [facility] Un[facility] Unavailable [facility]IP[facility], [facility] Unavailable Unavailable [facility], [facility] Unavailable Unavailable CON[facility]ULTANTS P[facility], [facility] JANELLE, JANELLE Unavailable Unavailable [facility] Unavailable [facility], [facility] ARVIZU DEIDRA, Unavailable Unavailable ARVIZU DEIDRA ARVIZU DEIDRA, Unavailable Unavailable ARVIZU DEIDRA GAFFNEY PJ, GAFFNEY PJ Unavailable Unavailable [facility] Unavailable Unavailable SPECIAL, [facility] Unavailable Unavailable [place], [facility] GARO FERNANDEZ, Unavailable Unavailable GARO FERNANDEZ [facility] Unavailable Unavailable LLC, [facility] [employer], [facility] [facility] Unavailable Unavailable [facility] INC, [facility] Unavailable Unavailable [facility] Unavailable Unavailable [facility], [facility] FALLUAMARA NEZAR M, Unavailable Unavailable IRMA NELAMAR M MUSTAPHA ZHAO, Unavailable Unavailable SIMBA NAJERA, Unavailable Unavailable SIMBA JOHNSON CHA, ISRA Unavailable Unavailable DAYANA LANDRUM, FOSTER Unavailable Unavailable [facility]OS[facility] LANDRUM, FERGUSON Unavailable Unavailable LUCITA SANFORD FRYMRA Unavailable Unavailable JR GINA MARTINEZ, Unavailable Unavailable JR GINA MARTINEZ GAINEY Unavailable Unavailable VICTORIA MAKI, VICTORIA Unavailable Unavailable SHANTHI VICTORIA, JOSEPH S, Unavailable Unavailable VICTORIA, JOSEPH S GAL THO, GAL THO Unavailable Unavailable MEJIA ROSARIO E, Unavailable Unavailable MEJIA ROSARIO E MANUEL OSWALD, JACKSON OSWALD Unavailable Unavailable GISELLE SHEA, Unavailable Unavailable GISELLE SHEA HARRIES Unavailable Unavailable JANET CARIN GONZALES HARRIES Unavailable Unavailable ERVIN RODRIGEZ, Unavailable Unavailable ERVIN DEL ROSARIO [facility] Unavailable Unavailable INC, [facility] Unavailable Unavailable HOSPITAL P, [facility] P BARRY CARY HARVEY, Unavailable Unavailable BARRY RAMIREZ, VIJI RAMIREZ Unavailable Unavailable [facility], Unavailable Unavailable [facility], Unavailable Unavailable [facility] MARIANA GALEANA, Unavailable Unavailable MARIANA GALEANA [facility] Unavailable Unavailable [place] SHAK[facility] HAYDEN SHAKILA Unavailable [facility]available [facility] Un[facility] KEKELLEN GONZALES KEDING Unavailable Unavailable JANET [facility] Unavailable Unavailable ERVIN WICK, Unavailable Unavailable ERVIN HOFF [facility] Unavailable Unavailable LLC, D, [facility], [facility] Un[facility] Unavailable Unavailable IMAGING [facility], [facility] LETTYFORTINO, LETTY, Unavailable Unavailable FORTINO [facility] Un[facility] Unavailable Unavailable HOLDING, [facility] Unavailable Unavailable HOLDING, [facility] MARY EDWARDS, HERNANDEZ Unavailable Unavailable JERRY OSWALDO HERNANDEZ, Unavailable Unavailable OSWALDO HERNANDEZ [facility] Un[facility] ERLIN CAMACHO, Unavailable Unavailable ERLIN CAMACHO LEVY LIZ Unavailable Unavailable LUCIANA JR, LUCIANA JR Unavailable Unavailable LUCIANA JR DWI, LUCIANA Unavailable Unavailable JR DWI HUA CHOWDHURY, Unavailable Unavailable HAU CHOWDHURY [facility] Unavailable Unavailable [facility], [facility] Unavailable Unavailable [email or web address] [facility] Unavailable Unavailable INTERNAL MED, [facility] Unavailable Unavailable INTERNAL [facility]I, [facility] M E D SUPPLIES, M E D Unavailable Unavailable SUPPLIES M E D SUPPL[facility], M E D Unavailable Unavailable SUPPLIES [facility], Unavailable Unavailable [facility] Unavailable Unavailable SERVICES, [facility] MARNI LUIS ALFREDO, Unavailable Unavailable MARNI LUIS ALFREDO MARNI LUIS ALFREDO, Unavailable Unavailable MARNI LUSI ALFREDO ESPINO JAM, Unavailable Unavailable ESPINO JAM ESPINO JAM, Unavailable Unavailable ESPINO JAM MCKEMIE JR PETR, Unavailable Unavailable MCKEMIE JR PETR MCKEMIE JR, KANNAN Unavailable Unavailable F, MCKEMIE JR, KANNAN F [facility], Unavailable [facility]available [facility] HONEY, RACHEL P, Unavailable Unavailable HONEY, RACHEL P PAGAN PETR, PAGAN PETR Unavailable Unavailable PAGAN, KANNAN F, Unavailable Unavailable PAGAN, KANNAN F MANN BET, MANN Unavailable Unavailable BET HANCOCK CAROLYN, HANCOCK Unavailable Unavailable LILIYA BAIRD, Unavailable Unavailable LILIYA ESCOBAR JOHN, Unavailable Unavailable [facility], [facility] Unavailable [facility] Unavailable Unavailable LABS, LLC [facility], Unavailable Unavailable PLL[facility], [facility] Unavailable Unavailable LAB, [facility] PAVEZ MAR, PAVEZ MAR Unavailable Unavailable PAWSAT MAR, PAWSAT Unavailable Unavailable MAR PAWSAT MAR, PAWSAT Unavailable Unavailable MAR JHONATAN JILLIAN, JHONATAN JILLIAN Unavailable Unavailable PETTEY JAM, PETTEY Unavailable Unavailable JAM NARGIS II LENORA, NARGIS Unavailable Unavailable II LENORA [facility], Unavailable Unavailable [facility] PUND, CHRISTOPHER R, Unavailable Unavailable PUND, CHRISTOPHER R [facility], Unavailable Unavailable [facility], Unavailable Unavailable [facility] ALBERTS, ALBERTS Unavailable Unavailable KEREN TOD, KEREN TOD Unavailable Unavailable RENUSCH, RENUSCH Unavailable Unavailable RENUSCH ILIR, RENUSCH Unavailable Unavailable ILIRCHERYL JACOBSEN A, Unavailable Unavailable CHERYL REAL A KEVIN CATRACHITO, KEVIN CATRACHITO Unavailable Unavailable [id number], Unavailable Unavailable [id number] Unavailable Unavailable [facility]38, [facility] SADEK MOH, SADEK MOH Unavailable Unavailable AKUA PETR, AKUA Unavailable Unavailable PETR SCALF, SCALF Unavailable Unavailable PALOMO CATRACHITO, Unavailable Unavailable PALOMO CATRACHITO [facility], Unavailable Unavailable [facility] SCIFRES ANG, SCIFRES Unavailable Unavailable ANG [facility], Unavailable Unavailable [facility] SHASHY SOBEIDA, SHASHY Unavailable Unavailable SOBEIDA SOKAN, SOKAN Unavailable Unavailable SOKAN, GRACE O, Unavailable Unavailable SOKAN, GRACE O [facility] Unavailable Unavailable EQU[facility], [facility] Unavailable Unavailable EQUIPME, [facility] SOTINGEANU ANITA, Unavailable Unavailable SOTINGEANU ANITA [facility] Unavailable Unavailable EMERGENCY PH[facility], [facility] GARCIA RAY, GARCIA Unavailable Unavailable RAY NATACHA PHI, NATACHA PHI Unavailable Unavailable NATACHA, NICOLE A, Unavailable Unavailable NATACHA, NICOLE A [facility] Unavailable Unavailable HOSPITALS, [facility], Unavailable Unavailable [facility] USERY AND, [facility]ERY AND Unavailable Unavailable [facility], Unavailable Unavailable [facility] Madelyn Lemus MD, Unavailable Unavailable Kylee Valverde MD, Unavailable Unavailable Kylee CORDERO [facility] Unavailable Unavailable [address], [facility] FRANCISCO SINGH Unavailable Unavailable MARCELINO DEIDRA, MARCELINO Unavailable Unavailable DEIDRA JULY SHANTHI, JULY Unavailable Unavailable SHANTHI [facility] Unavailable Unavailable OF [facility], [facility] [place] [facility], Unavailable [facility], Unavailable [facility] Purpose Continuity of Care Document - 07-11-2007 through 2016 Problems Code Diagnosis DOS Provider Status 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 C11531 PAIN IN 11-06-2016 [facility]G [facility] INC R01602 PAIN IN 11-06-2016 [facility] LEFT [facility]G [facility] INC 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 10-23-2016 [facility] RAL DISC [facility] D/O INC W/RADICULOP ATHY LUMB RGN M549 DORSALGIA 10-23-2016 [facility] UNSPECIFIED [facility] INC R300 DYSURIA 10-19-2016 [facility] INC E039 HYPOTHYROID 10-05-2016 [facility] ISM [facility] UNSPECIFIED INC M7702 MEDIAL 09-19-2016 [facility] EPICONDYLIT [facility] IS LEFT INC ELBOW J040 ACUTE 2016 [facility] LARYNGITIS PHYSICIAN GROUP [id number] SPONDYLOSIS 09-15-2016 [facility] MYELOPATH/R HOSPITALS ADICULOPATH Y THOR RGN [id number] SPONDYLOSIS 09-15-2016 [facility] MYELOPATH/R HOSPITALS ADICULPATHY LS RGN M546 PAIN IN 09-15-2016 [facility] J069 ACUTE UPPER 09-12-2016 [facility] RESPIRATORY INC INFECTION UNSPECIFIED E07.9 DISORDER OF 09-08-2016 THYROID, UNSPECIFIED E11.9 TYPE 2 09-08-2016 DIABET[facility] WITHOUT COMPLICATIO NS E78.00 PURE 09-08-2016 HYPERCHOLES TEROLEMIA, UNSPECIFIED F17.210 NICOTINE 09-08-2016 DEPENDENCE, CIGARETTES, UNCOMPLICAT ED F32.9 MAJOR 09-08-2016 DEPRESSIVE DISORDER, SINGLE EPISODE, UNSPECIFIED F41.9 ANXIETY 09-08-2016 DISORDER, UNSPECIFIED I10 ESSENTIAL 09-08-2016 (PRIMARY) HYPERTENSIO N 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 J40 BRONCHITIS, 09-08-2016 NOT SPECIFIED ACUTE OR CHRONIC J44.9 CHRONIC 09-08-2016 OBSTRUCTIVE PULMONARY DISEASE, UNSPECIFIED K21.9 GASTRO-ESOP 09-08-2016 HAGEAL REFLUX DISEASE WITHOUT ESOPHAGITIS R05 COUGH 09-08-2016 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 OF NON-STEROID AL ANTI-INFLAM MATORIES (NSAID) Z79.4 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 APPRENTICE 09-08-2016 (CURRENT) USE OF INSULIN Z79.82 MARINE ENGINE MACHINIST APPRENTICE 09-08-2016 (CURRENT) USE OF ASPIRIN Z79.899 OTHER LONG 09-08-2016 TERM (CURRENT) DRUG THERAPY Z88.2 ALLERGY 09-08-2016 STATUS TO SULFONAMIDE S STATUS Z88.3 ALLERGY 09-08-2016 STATUS TO OTHER ANTI-INFECT ANNABELLA AGENTS STATUS K35609 PAIN IN 09-08-2016 [facility] LEFT ELBOW PHYSICIANS GROUP J40 BRONCHITIS 09-06-2016 [facility] NOT N EMERGENCY SPECIFIED PHYS ACUTE OR CHRONIC R05 COUGH 09-06-2016 [facility] R0602 SHORTNESS 09-06-2016 [facility] M542 CERVICALGIA 08-29-2016 [facility] R51 HEADACHE 08-29-2016 [facility] [id number] CONTUSION 08-29-2016 [facility] OF SCALP PHYSICIANS, INITIAL PLLC ENCOUNTER M229EQD UNSPECIFIED 08-29-2016 [facility] OF MEDICAL NECK IMAGING ASS INITIAL ENCOUNTER S44KSXA UNSPECIFIED 08-29-2016 [facility] INITIAL SERVICE ENCOUNTER E52530 PRIMARY 08-22-2016 [facility] OSTEOARTHRI MEDICAL TIS LEFT IMAGING ASS ELBOW E119 TYPE 2 08-15-2016 [facility]ABETES [facility] MELLITUS INC WITHOUT COMPLICATIO NS I10 ESSENTIAL 08-15-2016 [facility] PRIMARY [facility] HYPERTENSIO INC N J449 CHRONIC 08-15-2016 [facility] OBSTRUCTIVE [facility] PULMONARY INC DISEASE UNS K8689 OTHER 08-15-2016 [facility] SPECIFIED [facility]ICIANS, DISEASES OF [facility] PANCREAS R1084 GENERALIZED 08-15-2016 [facility] ABDOMINAL PHYSICIANS, PAIN [facility] Z720 TOBACCO USE 08-15-2016 [facility] INC Z794 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 ENGINE MACHINIST APPRENTICE 08-15-2016 [facility] CURRENT USE [facility] OF INSULIN INC R8299 OTHER 08-07-2016 [facility] ABNORMAL [facility] FINDINGS IN INC URINE L15921 MIGRAINE 08-04-2016 [facility] UNS [facility]YSICIANS, INTRACTABLE PLLC W/STATUS MIGRAINOSUS E56202 UNSPECIFIED 08-04-2016 [facility] WITH ACUTE LLC EXACERBATIO N F8336WZ CONTUSION 08-04-2016 [facility] EYEBALL & PHYSICIANS, ORBITAL PLLC TISSUES RT EYE INIT E95927 ELEVATED 07-26-2016 [facility] BLOOD [facility] CELL [facility]OS[facility] P UNSPECIFIED K529 NONINFECTIV 07-14-2016 [facility] E [facility] GASTROENTER INC ITIS & COLITIS UNS I509 HEART 07-12-2016 [facility] P R0789 OTHER CHEST 07-12-2016 [facility]ANS, [facility] R079 CHEST PAIN 07-12-2016 [facility] P I272 OTHER 07-05-2016 [facility] SECONDARY [facility] PULMONARY INC HYPERTENSIO N I5030 UNSPECIFIED 07-05-2016 [facility] DIASTOLIC [facility] CONGESTIVE INC HEART FAILURE I959 HYPOTENSION 07-05-2016 [facility] UNSPECIFIED INC E109 TYPE 1 07-04-2016 [facility] MELLITUS [facility] P WITHOUT COMPLICATIO NS I9589 OTHER 07-04-2016 [facility] HYPOTENSION PHYSICIANS, [facility] R400 SOMNOLENCE 07-04-2016 [facility], PLLC R55 SYNCOPE AND 07-04-2016 [facility] COLLAPSE PHYSICIANS, [facility] P80808 OTHER LONG 07-04-2016 [facility] TERM [facility] CURRENT INC DRUG THERAPY G8929 OTHER 06-29-2016 [facility] CHRONIC [facility] PAIN INC M4807 SPINAL 06-29-2016 [facility] STENOSIS [facility] LUMBOSACRAL INC REGION R042 HEMOPTYSIS 06-28-2016 [facility] R918 OTHER 06-28-2016 [facility] NONSPECIFIC [facility] ABNORMAL INC FINDING OF LUNG FIELD Q08765 TYPE 2 06-21-2016 [facility] DIABETES [facility] MELLITUS INC W/HYPOGLYCE NIKOLAY W/O COMA M5432 SCIATICA 06-13-2016 [facility] LEFT SIDE PHYSICIANS, [facility] M5442 LUMBAGO 06-13-2016 [facility] WITH PHYSICIANS, SCIATICA PLL LEFT SIDE Z85566 TYPE 2 06-12-2016 [facility] MELLITUS MEDICAL WITH FOOT EQUIPME ULCER V96095 TYPE 2 06-12-2016 [facility] MELLITUS MEDICAL WITH OTHER EQUIPME SKIN ULCER G894 CHRONIC 06-12-2016 [facility] PAIN PHYSICIANS SYNDROME GROUP M4307 SPONDYLOLYS 06-12-2016 [facility] IS PHYSICIANS LUMBOSACRAL GROUP REGION C39793 PERSONAL 06-12-2016 [facility] HISTORY OF PHYSICIANS NICOTINE GROUP DEPENDENCE N19652 PERSONAL 06-12-2016 [facility] HISTORY OF PHYSICIANS OTHER GROUP SPECIFIED CONDITIONS E876 HYPOKALEMIA 06-06-2016 [facility] PH[facility]ANS, [facility] K5900 CONSTIPATIO 06-06-2016 [facility] N [facility]ICAL UNSPECIFIED IMAGING ASS N200 CALCULUS OF 06-06-2016 [facility] N3000 ACUTE 06-06-2016 [facility] CYSTITIS PHYSICIANS, WITHOUT PLLC HEMATURIA N390 URINARY 06-06-2016 [facility] TRACT PHYSICIANS, INFECTION [facility] SITE NOT SPECIFIED R531 WEAKNESS 06-06-2016 [facility] R634 ABNORMAL 06-06-2016 [facility] J050 ACUTE 05-18-2016 [facility] OBSTRUCTIVE PHYSICIANS, LARYNGITIS PLL CROUP L299 PRURITUS 05-18-2016 [facility] UNSPECIFIED PHYSICIANS, PLLC M5127 OTH 05-17-2016 [facility] INTERVERTEB MEDICAL RAL DISC IMAGING ASS DISPLACEMEN T LS REGION M5136 OTH 05-17-2016 [facility] 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 M545 LOW BACK 05-17-2016 [facility] PAIN [facility]ICAL [facility] ASS I55538 PAIN IN 05-13-2016 [facility] KNEE [facility]ICAL IMAGING ASS N5243WA CONTUSION 05-13-2016 [facility] OF RIGHT PHYSICIANS, KNEE PLLC INITIAL ENCOUNTER L75416 MIGRAINE 05-09-2016 [facility] W/O AURA PHYSICIANS, NOT INTRACT PLLC W/O STAT MIGRAIN U83791 PAIN IN 05-08-2016 [facility] RIGHT HIP [facility] INC B351 TINEA 04-13-2016 [facility] UNGUIUM [facility] ANKLE CE I7090 UNSPECIFIED 04-13-2016 [place] FOOT & ATHEROSCLER ANKLE CE OSIS C56696 PAIN IN 04-13-2016 [facility] & LIMB ANKLE CE R0781 PLEURODYNIA 03-31-2016 [facility] R52 PAIN 03-31-2016 [facility] UNSPECIFIED [facility]ANCE SERVICE O73857Y CONTUSION 03-31-2016 [facility] UNS FRONT PHYSICIANS, WALL THORAX PLLC INITIAL ENCNTR X896CTC UNSPECIFIED 03-31-2016 [facility] INJURY OF MEDICAL THORAX IMAGING ASS INITIAL ENCOUNTER L0291 CUTANEOUS 03-20-2016 [facility] ABSCESS [facility] UNSPECIFIED INC T28870R CONTUSION 03-17-2016 [facility] LEFT FRONT PHYSICIANS, WALL THORAX PLLC INITIAL ENC N00595W CONTUSION 03-17-2016 [facility] OF LEFT PHYSICIANS, SHOULDER PLLC INITIAL ENCOUNTER J30203 NON-PRSS 03-14-2016 [facility] CHRN ULCER PHYSICIANS SKIN OTH GROUP SITES UNS SEVERITY M70552 CELLULITIS 03-09-2016 [facility] OF [facility]OS[facility] ABDOMINAL INC WALL L8453SG OTHER 03-09-2016 [facility] COMPLICATIO PHYSICIANS, NS PROC NEC PLLC INITIAL ENCOUNTER E049 NONTOXIC 02-17-2016 [facility] GOITER PHYSICIANS UNSPECIFIED GROUP R1310 DYSPHAGIA 02-17-2016 [facility] UNSPECIFIED PHYSICIANS GROUP [id number] UNS FOREIGN 02-17-2016 [facility] BODY PHYSICIANS LARYNX CAUS GROUP OTH INJURY INIT ENC J05984 PAIN IN 02-10-2016 [facility] LEFT HIP MEDICAL IMAGING ASS I909MEG STRAIN 02-10-2016 [facility] MUSCLE FASC [facility] & TENDON INC NECK LEVL INIT ENC D8646VT CONTUSION 02-10-2016 [facility] OF LEFT HIP MEM [facility]OS[facility] INITIAL INC ENCOUNTER V76940I UNSPECIFIED 02-10-2016 [facility] INJURY MEDICAL LEFT HIP IMAGING ASS INITIAL ENCOUNTER U44866 UNSPECIFIED 02-07-2016 [facility] KERATITIS LEFT EYE R221 LOCALIZED 02-05-2016 [facility] SWELLING [facility] MASS AND INC LUMP NECK R4702 DYSPHASIA 02-03-2016 [facility] INC R5383 OTHER 06-15-2015 [facility] FATIGUE [facility] INC K10666R CONTUSION 06-03-2015 [facility] RT FRONT PHYSICIANS, WALL THORAX PLLC INITIAL ENCOUNTER K72986 PAIN IN 05-29-2015 [facility] RIGHT WRIST MEDICAL IMAGING ASS C38631 PAIN IN 05-29-2015 [facility] UNSPECIFIED MEDICAL HIP IMAGING ASS Z79689 PAIN IN 05-29-2015 [facility] LEFT KNEE MEDICAL IMAGING ASS K2866IB CONTUSION 05-29-2015 [facility] OF NOSE MEDICAL INITIAL IMAGING ASS ENCOUNTER M4976QR CONTUSION 05-29-2015 [facility] OTHER PART PHYSICIANS, OF HEAD PLL INITIAL ENCOUNTER F30117I UNSPECIFIED 05-29-2015 [facility] SPRAIN [facility] RIGHT WRIST INC INITIAL ENCOUNTER L3906TC SPRAIN 05-29-2015 [facility] UNSPECIFIED [facility] SITE LT INC KNEE INITIAL ENCNTR Z043 ENCOUNTER 05-29-2015 [facility] EXAM & MEDICAL OBSERVATION IMAGING ASS FOLLOW OTH ACCIDENT E1121 TYPE 2 05-25-2015 [facility] MELLITUS HOSPITAL P W/DIABETIC NEPHROPATHY I96 GANGRENE 05-25-2015 [facility] NOT ANESTH OF ELSEWHERE THE BLUE CLASSIFIED H51380 NON-PRSS 05-25-2015 [facility] TORO & OTH PART RT DUBILIER FT W/UNS SEVERITY P21915 OTHER ACUTE 05-25-2015 [facility] OSTEOMYELIT HOSPITAL P IS RIGHT ANKLE AND FOOT Z9111 PATIENTS 05-25-2015 [facility] CE WITH HOSPITAL P DIETARY REGIMEN [id number] NON-PRSS 05-24-2015 [facility] FOOT UNS SEVERITY M2011 HALLUX 05-24-2015 [facility], ACQUIRED [facility] RIGHT FOOT 7231 CERVICALGIA 03-06-2015 [facility] 7802 SYNCOPE AND 03-06-2015 [facility] 7840 HEADACHE 03-06-2015 [facility] 65314 INJURY OF 03-06-2015 [facility] OTHER [facility] AND UNSPECIFIED 87621 ACUTE PAIN 03-05-2015 [facility] TO [facility] TRAUMA SERVICE 74949 PAIN IN 03-05-2015 [facility] REGION AND THIGH 8470 NECK SPRAIN 03-05-2015 [facility], [facility] 920 CONTUSION 03-05-2015 [facility], [facility] NECK EXCEPT EYE [id number] UNSPECIFIED 03-05-2015 [facility] 7881 DYSURIA 02-24-2015 [place] [address] DIAB W/O 02-09-2015 [facility] COMP TYPE I HOME [JUV] NOT MEDICAL STATED EQUIPME UNCNTRL 53438 OBSTRUCTIVE 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 EQUIPME 59280 EXTRINSIC 02-09-2015 [facility] ASTHMA, HOME UNSPECIFIED MEDICAL EQUIPME 55541 DIAB W/OTH 02-03-2015 [facility] TYPE I INC [JUV] NOT UNCNTRL 4019 UNSPECIFIED 02-03-2015 [facility] HYPERTENSIO INC N 4139 OTHER AND 02-03-2015 [facility]NSPECIFIED [facility] ANGINA INC PECTORIS 496 CHRONIC 02-03-2015 [facility] [facility] OBSTRUCTION INC NEC 46474 OTHER 02-03-2015 [facility] FATIGUE INC V5867 LONG-TERM 02-03-2015 [facility] USE OF [facility] INSULIN INC 7906 OTHER 02-01-2015 [facility] ABNORMAL [facility] BLOOD INC CHEMISTRY V7389 SPECIAL 02-01-2015 [facility] SCREENING [facility] EXAMINATION INC OTH SPEC VIRAL DZ 7295 PAIN IN 01-06-2015 [facility] SOFT MEDICAL TISSUES OF IMAGING ASS LIMB 94791 SWELLING OF 01-06-2015 [facility] LIMB [facility]ICAL IMAGING ASS 7823 EDEMA 01-06-2015 [facility] INC 64858 CHEST PAIN 12-31-2014 [place] UNSPECIFIED MEDICAL IMAGING ASS 67029 PAIN IN 12-17-2014 [place] JOINT, MEDICAL SHOULDER IMAGING ASS REGION 12906 PAIN IN 12-17-2014 [place] JOINT, MEDICAL FOREARM IMAGING ASS 56169 PAIN IN 12-17-2014 [place] JOINT, MEDICAL LOWER LEG IMAGING ASS 8408 SPRAIN&STRA 12-17-2014 [facility] IN OTH SPEC [facility] SITES INC SHOULDER&UP PER ARM 8409 SPRAIN&STRA 12-17-2014 [facility] IN UNSPEC PHYSICIANS, SITE [facility] SHOULDER&UP PER ARM 42492 SPRAIN AND 12-17-2014 [facility] STRAIN OF [facility] UNSPECIFIED INC SITE OF WRIST 8449 SPRAIN&STRA 12-17-2014 [facility] IN OF [facility] UNSPECIFIED INC SITE OF KNEE&LEG 9221 CONTUSION 12-17-2014 [facility] OF CHEST [facility] WALL INC 28304 OTHER 12-17-2014 [place] INJURY OF MEDICAL CHEST WALL IMAGING ASS 99564 OTHER 12-17-2014 [place] INJURY OF MEDICAL OTHER SITES IMAGING ASS OF TRUNK 9592 INJURY 12-17-2014 [place] OTHER&UNSPE MEDICAL CIFIED IMAGING ASS SHOULDER&UP PER ARM 9593 INJURY 12-17-2014 [place] OTHER&UNSPE MEDICAL CIFIED IMAGING ASS ELBOW FOREARM&WRI ST 9597 INJURY 12-17-2014 [place] OTHER&UNSPE MEDICAL CIFIED KNEE IMAGING ASS LEG ANKLE&FOOT V714 OBSERVATION 12-17-2014 [facility] OTHER IMAGING ASS ACCIDENT 5718 OTHER 12-16-2014 [facility] C LIVER DISEASE 70918 ABDOMINAL 12-16-2014 [facility] PAIN RIGHT SERV UPPER [facility] QUADRANT 7892 SPLENOMEGAL 12-16-2014 [facility] 2512 HYPOGLYCEMI 11-25-2014 [facility] A, [facility] UNSPECIFIED INC 13570 SHORTNESS 11-11-2014 [facility] OF BREATH SERV [facility] 07062 DIAB 10-23-2014 [facility] W/NEURO [facility] MANIFESTS INC TYPE II/UNS TYPE UNCNTRL 92100 UNSPECIFIED 10-23-2014 [facility] CELLULITIS [facility] AND INC ABSCESS OF TOE 77805 ULCER OF 10-23-2014 [facility] OTHER PART PATHOLOGY OF FOOT SERVICES 7224 DEGENERATIO 10-17-2014 [place] N OF MEDICAL CERVICAL IMAGING ASS INTERVERTEB RAL DISC 25376 DIAB W/O 09-27-2014 [facility] COMP TYPE [facility] II/UNS NOT INC STATED UNCNTRL 2724 OTHER AND 09-27-2014 [facility] UNSPECIFIED [facility] INC HYPERLIPIDE NIKOLAY 44257 OBESITY, 09-27-2014 [facility] UNSPECIFIED SEAGRAVES INTERNAL MED 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 INC UNSPECIFIED 49004 ALTERED 09-27-2014 [facility] MENTAL SEAGRAVES STATUS INTERNAL MED 7862 COUGH 09-27-2014 [facility] 11208 POISONING 09-27-2014 [facility] BY OPIUM , ZACKERY UNSPECIFIED INTERNAL MED E8502 ACCIDENTAL 09-27-2014 [facility] P ATED NARCOTICS 5180 PULMONARY 09-26-2014 [facility] COLLAPSE [facility]ICAL IMAGING ASS 28508 FEVER 09-26-2014 [facility] 7869 OTH 09-26-2014 [place] SYMPTOMS MEDICAL INVOLVING IMAGING ASS RESPIRATORY SYSTEM&CHES T V053 NEED PROPH 09-07-2014 [place] [facility] VACC&INOCUL SERV AT AGAINST FOUNDATION VIRAL HEP 48741 CONTUSION 09-03-2014 [facility] P 61031 CONTUSION 09-03-2014 [facility] P 32404 CLOSED 05-01-2014 [facility] FRACTURE PHYSICIANS METACARPAL GROUP BONE SITE UNSPECIFIED E8888 OTHER FALL 04-28-2014 [facility] N EMERGENCY PHYS V1582 PERS HX 04-28-2014 [facility] TOBACCO USE [facility] PRESENTING INC HAZARDS HEALTH 2104 BENIGN 04-27-2014 E[facility], NOSE NEOPLASM AND THROAT OTHER&UNSPE SPECIAL CIFIED PARTS MOUTH 80814 DYSFUNCTION 04-27-2014 E[facility], NOSE OF AND THROAT EUSTACHIAN SPECIAL TUBE 75231 OTOGENIC 04-27-2014 E[facility], NOSE PAIN AND THROAT SPECIAL 98482 DYSPHAGIA 04-27-2014 E[facility], NOSE UNSPECIFIED AND THROAT SPECIAL 4770 ALLERGIC 04-13-2014 [facility] RHINITIS [facility] DUE TO POLLEN 4778 ALLERGIC 04-13-2014 [facility] RHINITIS [facility] DUE TO OTHER ALLERGEN 4772 ALLERGIC 04-06-2014 [facility] RHINITIS [facility] DUE TO ANIMAL HAIR AND DANDER 49340 CHRONIC 04-06-2014 [facility] OBSTRUCTIVE [facility] AL[facility] ASTHMA UNSPECIFIED 97876 SENSORINEUR 04-03-2014 [facility], NOSE AL HEARING AND THROAT LOSS SPECIAL BILATERAL 2728 OTHER 03-19-2014 [facility] 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 28260 DIAB 03-16-2014 [facility]/OPHTH VISION [facility]IF[facility]S CENTER TYPE II/UNS NOT UNCNTRL 5939 UNSPECIFIED 03-03-2014 [facility] DISORDER N EMERGENCY OF KIDNEY PHYS AND URETER 5990 URINARY 03-03-2014 [facility] TRACT N EMERGENCY INFECTION PHYS SITE NOT SPECIFIED 94769 OTHER 01-28-2014 [facility] DISORDER OF STOMACH AND DUODENUM 5715 CIRRHOSIS 01-28-2014 [facility] WITHOUT MENTION OF ALCOHOL 5723 PORTAL 01-28-2014 [facility] N V7651 SPECIAL 01-28-2014 [facility] NEOPLASMS COLON 2168 BENIGN 01-21-2014 [facility] NEOPLASM OF DERMATOLOGY OTHER SPECIFIED SITES OF SKIN 2382 NEOPLASM OF 01-21-2014 [facility] UNCERTAIN DERMATOLOGY BEHAVIOR OF SKIN 6869 UNSPEC 01-21-2014 [facility] LOCAL DERMATOLOGY INFECTION SKIN&SUBCUT ANEOUS TISSUE 6983 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 CHRONICUS 6984 DERMATITIS 01-21-2014 [facility] FACTITIA DERMATOLOGY 7821 RASH AND 01-21-2014 [facility] OTHER DIAGNOSTICS NONSPECIFIC SKIN ERUPTION 7291 UNSPECIFIED 01-14-2014 [facility]ALGIA [facility] AND INC MYOSITIS 2409 GOITER, 12-23-2013 [facility] UNSPECIFIED [facility] INC 06121 ABDOMINAL 12-15-2013 [facility] PAIN OTHER [facility] SPECIFIED INC SITE 62557 OTHER ACUTE 12-01-2013 [facility] 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 5778 OTHER 12-01-2013 [facility] MEDICAL SPECIFIED SERV DISEASE OF FOUNDATIO PANCREAS 58336 DIARRHEA 12-01-2013 [facility] 09426 ABDOMINAL 12-01-2013 [facility] PAIN, SERV UNSPECIFIED FOUNDATIO SITE 7948 NONSPECIFIC 12-01-2013 [place] MEDICAL ABNORMAL SERV RESULTS FOUNDATIO LIVR FUNCTION STUDY V762 SCREENING 11-19-2013 [facility] MALIGNANT NEOPLASM OF THE CERVIX 92269 OTHER CHEST 11-08-2013 [facility] PAIN N EMERGENCY PHYS 71601 OTHER 11-08-2013 [place] NONSPECIFIC MEDICAL ABNORMAL IMAGING ASS FINDING OF LUNG FIELD 7242 LUMBAGO 09-23-2013 [facility] INC V571 OTHER 09-23-2013 [facility] PHYSICAL [facility] THERAPY INC V5869 LONG-TERM 09-17-2013 [facility] (CURRENT) [facility] USE OF INC OTHER MEDICATIONS 7226 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 UNSPEC 86343 DEGEN 09-11-2013 [facility] MEDICAL LUMBAR/LUMB SERV OSACRAL FOUNDATIO INTERVERTEB RAL DISC 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-2013 [facility] 43910 MORBID 08-25-2013 [facility] OBESITY [facility] P 4409 GENERALIZED 08-25-2013 [place] AND MEDICAL UNSPECIFIED IMAGING ASS ATHEROSCLER OSIS 4471 STRICTURE 08-25-2013 [place] OF ARTERY MEDICAL IMAGING ASS 4830 PNEUMONIA 08-25-2013 [facility] DUE TO [facility] P PNEUMONIAE 73096 SCOLIOSIS , 08-25-2013 [place] IDIOPATHIC MEDICAL IMAGING ASS V8541 BODY MASS 08-25-2013 [facility] 40.0-44.9 HOSPITAL P ADULT 4829 UNSPECIFIED 08-23-2013 [facility] BACTERIAL EMERGENCY PNEUMONIA SERVICES 72988 OTHER 08-23-2013 [place] DISEASES OF MEDICAL LUNG NOT IMAGING ASS ELSEWHERE CLASSIFIED 16272 DEGEN 08-23-2013 [place] THORACIC/TH MEDICAL ORACOLUMBAR IMAGING ASS INTERVERTEB RAL DISC 3540 CARPAL 08-20-2013 [facility] MITCH 7238 OTHER 08-20-2013 [facility] SYNDROMES NEUROLOGY AFFECTING CENTER MITCH CERVICAL REGION 68193 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-2013 [place]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 64160 SPINAL STEN 08-18-2013 [place] LUMB REG MEDICAL W/O IMAGING ASS NEUROGENIC CLAUDICATIO N 8404 ROTATOR 07-26-2013 [facility] CUFF SPRAIN [facility] AND STRAIN INC 5989 UNSPECIFIED 05-06-2013 [facility] STRICTURE [facility] P 55962 UNSPECIFIED 04-29-2013 [facility] URETHRITIS [facility] P 5952 OTHER 04-08-2013 [facility] CYSTITIS [facility] P 74641 DIAB W/O 04-03-2013 [facility] MENTION [facility] COMP TYPE I INC [JUV TYPE] UNCNTRL 93463 UNSPECIFIED 04-03-2013 [facility] EMERGENCY CONSTIPATIO SERVICES N 79299 OTHER 03-31-2013 [facility] CHRONIC [facility]FR[facility]O ALLERGIC CONJUNCTIVI TIS 24213 NUCLEAR 03-18-2013 [facility] 3669 UNSPECIFIED 03-18-2013 [facility] CATARACT [facility] INC V148 PERSONAL 03-18-2013 [facility] HISTORY [facility] ALLERGY OTH INC SPEC MEDICINAL AGTS 2689 UNSPECIFIED 02-25-2013 [facility] VITAMIN D [facility] DEFICIENCY 4919 UNSPECIFIED 02-04-2013 [facility] CHRONIC [facility] BRONCHITIS 91489 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 [facility] 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[facility] STATUS ASTHMATICUS 08411 MIGRAINE 01-30-2013 [facility] UNSP W/O VALLEY INTRACT W/O INTERNAL STATUS MED MIGRAINOSUS 08879 ABDOMINAL 01-23-2013 [facility] PAIN, LEFT PHYSICIANS LOWER LA QUADRANT 460 ACUTE 01-22-2013 [facility] NASOPHARYNG VALLEY ITIS INTERNAL MEDI 65478 VISUAL 01-14-2013 [facility] 3688 OTHER 01-14-2013 [place] SPECIFIED EYE VISUAL INSTITUTE DISTURBANCE S 490 BRONCHITIS 12-28-2012 [facility] NOT VALLEY SPECIFIED INTERNAL ACUTE OR MED CHRONIC 5110 PLEURISY 12-20-2012 [facility] WITHOUT [facility] MENTION INC EFFUS/[place] [address] PAINFUL 12-20-2012 [facility] RESPIRATION SEAGRAVES INTERNAL MED 78354 DIAB W/O 12-17-2012 M E D MENTION SUPPLIES COMP TYPE II/UNS TYPE UNCNTRL 78546 URINARY 11-27-2012 [facility] FREQUENCY SEAGRAVES INTERNAL MEDI 6279 UNSPECIFIED 11-13-2012 [facility] MENOPAUSAL& INC POSTMENOPAU HERBERT DISORDER 33344 PATELLAR 11-13-2012 [facility] TENDINITIS PHYSICIANS GROUP 51833 ACHILLES 11-13-2012 [facility] BURSITIS OR HOME TENDINITIS MEDICAL EQUIPME 00848 OTHER 11-13-2012 [facility] SYNOVITIS PHYSICIANS AND GROUP TENOSYNOVIT IS 7289 UNSPECIFIED 11-13-2012 [facility] DISORDER PHYSICIANS OF MUSCLE GROUP LIGAMENT&FA SCIA 53509 DISORDER OF 11-13-2012 [place] BONE AND MEDICAL CARTILAGE IMAGING ASS UNSPECIFIED V4981 ASYMPTOMATI 11-13-2012 [facility] MEDICAL POSTMENOPAU IMAGING ASS HERBERT STATUS 94682 OSTEOARTHRO 11-07-2012 [facility] UNSPEC MEDICAL WHETHER IMAGING ASS GEN/LOC LOWER LEG 4739 UNSPECIFIED 10-17-2012 [facility] SINUSITIS SEAGRAVES INTERNAL MEDI 6931 DERMATITIS 09-30-2012 [facility] DUE TO FOOD [facility] ALFR[facility] TAKEN INTERNALLY V727 DIAGNOSTIC 09-30-2012 [facility] SKIN AND LUIS ALFREDO SENSITIZATI ON TESTS 78423 URGE 08-29-2012 [facility] P 2449 UNSPECIFIED 08-28-2012 [facility] HYPOTHYROID INTERNAL ISM MEDI 49067 OTHER 08-23-2012 [place] SPECIFIED MEDICAL DISORDERS IMAGING ASS OF BLADDER V7612 OTHER 08-23-2012 [place] SCREENING MEDICAL MAMMOGRAM IMAGING ASS 5932 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 [place]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 7533 OTHER 08-09-2012 [place] 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 0419 BACTERIAL 08-08-2012 [facility] INFECTION SEAGRAVES UNSPECIFIED INTERNAL CCE & UNS MED SITE 91414 DEHYDRATION 08-08-2012 [facility] SEAGRAVES INTERNAL MED V7231 ROUTINE 08-05-2012 [facility]AM[facility] SONIA 4720 CHRONIC 08-02-2012 [facility] RHINITIS SEAGRAVES INTERNAL MEDI 84038 MASTODYNIA 08-02-2012 [facility] INTERNAL MEDI 4011 ESSENTIAL 07-09-2012 [facility] HYPERTENSI[facility]SC N, BENIGN 7964 OTHER 07-05-2012 [facility]AL [facility] CLINICAL FINDING 74916 COR 07-01-2012 [facility]PAT[facility] ATHEROSLERO CARE, PLL[facility] UNSPEC TYPE VESSEL OMAHA/ELSA T 36897 UNSPECIFIED 06-19-2012 [facility] [place] VIRAL EMERGENCY INFECTION SERVICES IN CCE & UNS SITE 75014 CONTUSION 06-14-2012 [facility] INC 9233 CONTUSION 06-14-2012 [facility]ER [facility] INC 18664 CONTUSION 06-14-2012 [facility] OF KNEE [facility] INC 9599 INJURY 06-14-2012 [place] OTHER AND MEDICAL UNSPECIFIED IMAGING ASS UNSPECIFIED SITE 4659 ACUTE URIS 06-05-2012 [facility] UNSPECIFIED CENTER SITE 8489 UNSPECIFIED 06-05-2012 [facility] SPRAIN AND CENTER STRAIN V8542 BODY MASS 05-23-2012 [facility] INDEX [facility] 45.0-49.9 CENTER ADULT 15208 ATROPHIC 05-20-2012 [facility] GASTRITIS SURGIAL WITHOUT ASSOCIATE MENTION OF HEMORRHAGE 01809 NAUSEA WITH 05-20-2012 [facility] VOMITING SURGIAL ASSOCIATE V1279 PERSONAL 05-20-2012 [facility] HISTORY OTH PHYS SURG DISEASES CTR DIGESTIVE DISEASE 4660 ACUTE 05-05-2012 [facility] BRONCHITIS N EMERGENCY PHYS 55563 ASTHMA, 05-05-2012 [facility] UNSPECIFIED N EMERGENCY , PHYS UNSPECIFIED STATUS 1129 CANDIDIASIS 05-03-2012 [facility] UNSPECIFIED CENTER SITE 4619 ACUTE 05-03-2012 [facility] SINUSITIS, HEALTHCARE UNSPECIFIED CENTER V0481 NEED 04-17-2012 [facility] PROPHYLACTI [facility]CARE C CENTER VACCINATION &INOCULATIO N FLU 45440 ESOPHAGEAL 04-16-2012 [facility] REFLUX SURGIAL ASSOCIATE 5559 REGIONAL 04-16-2012 [facility] ENTERITIS SURGIAL OF ASSOCIATE UNSPECIFIED SITE 01629 POLYURIA 03-29-2012 [facility] [employer] 98718 UNSPECIFIED 03-18-2012 [facility] VAGINITIS PSC AND VULVOVAGINI TIS 6235 LEUKORRHEA 03-18-2012 [facility] NOT PSC SPECIFIED INFECTIVE 6248 OTH SPEC 03-17-2012 INPATIENT NONINFLAMMA CARE, PLLC TORY DISORDER VULVA&PERIN EUM 79001 LOSS OF 02-20-2012 C SOPHIE WEIGHT ELOY SANCHEZ PSC 56758 UNSPECIFIED 02-14-2012 [facility] VALLEY ARTHROPATHY INTERNAL MULTIPLE MEDI SITES 54362 ABDOMINAL 02-14-2012 [facility] PAIN, VALLEY GENERALIZED INTERNAL MEDI V741 SCREENING 02-14-2012 [facility] EXAMINATION VALLEY FOR INTERNAL PULMONARY MEDI TUBERCULOSI S 48021 ABDOMINAL 02-07-2012 [facility] PAIN, LEFT [facility] UPPER INC QUADRANT 17711 VASCULAR 01-06-2012 [facility] ES OF CONJUNCTIVA 67313 SWELLING OR 01-06-2012 [facility] EYE 34101 REDNESS OR 01-06-2012 [facility] EYE 28203 OTHER 01-06-2012 [place] MEDICAL DISEASES OF SERV NASAL FOUNDATIO CAVITY AND SINUSES 0539 HERPES 12-14-2011 [facility] ZOSTER VALLEY WITHOUT INTERNAL MENTION OF MED COMPLICATIO N 7891 HEPATOMEGAL 12-07-2011 [facility] 98601 PAIN IN 11-11-2011 [facility] JOINT, VALLEY ANKLE AND INTERNAL FOOT MED 66289 TRANSIENT 11-10-2011 [facility] ARTHROPATHY [facility] ANKLE AND INC FOOT 6826 CELLULITIS 10-19-2011 [facility] AND ABSCESS VALLEY OF LEG INTERNAL EXCEPT FOOT MED 4780 HYPERTROPHY 10-12-2011 [facility] OF NASAL LUIS ALFREDO TURBINATES 9164 HIP THI 10-03-2011 [facility] LEG&ANK VALLEY INSECT BITE INTERNAL MED NONVENOMOUS W/O INF E9064 BITE OF 10-03-2011 [facility] NONVENOMOUS VALLEY ARTHROPOD INTERNAL MED 05077 TRANSIENT 09-25-2011 [facility] VISUAL LOSS [facility] INC 46180 SCOTOMA 09-25-2011 [facility] INVOLVING [facility] CENTRAL INC AREA IN VISUAL FIELD 05107 DISORDERS 09-25-2011 [facility] VISUAL [facility] CORTEX INC ASSOCIATED W/NEOPLASMS 7842 SWELLING 09-25-2011 [facility] MASS OR MEDICAL LUMP IN IMAGING ASS HEAD AND NECK 35054 BORDERLINE 09-15-2011 [facility] GLAUC OPEN JAM ANGLE BL FINDINGS LOW RSK 04624 CHRONIC 09-07-2011 [facility] OBSTRUCTIVE LU[facility] ALFREDO 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EXACERBATIO N 77156 OBSTRUCTIVE 08-30-2011 [facility] CHRONIC VALLEY BRONCHITIS INTERNAL WITH MED EXACERBATIO N 4293 CARDIOMEGAL 08-17-2011 [place] Y MEDICAL IMAGING ASS 04476 CHRONIC 08-09-2011 [facility] TENSION JAM TYPE HEADACHE 26346 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-2011 [facility] 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 26380 DIAB 06-25-2011 [facility] W/RENAL [facility] MANIFESTS INC TYPE I [JUV TYPE] UNCNTRL 11602 OBST 06-25-2011 [facility] CHRONIC [facility] BRONCHITIS INC W/ACUTE BRONCHITIS 92109 NAUSEA 06-25-2011 [facility] EMERGENC[facility] SERVICES 7841 THROAT PAIN 06-06-2011 [facility]ICAL SERV FOUNDATIO 39245 OTHER 05-25-2011 [facility] SYMPTOMS [facility] INVOLVING INC HEAD AND NECK 4721 CHRONIC 05-15-2011 EAR, NOSE PHARYNGITIS AND THROAT SPECIAL 462 ACUTE 05-09-2011 [facility] PHARYNGITIS SEAGRAVES INTERNAL MED 45951 UNSPECIFIED 04-12-2011 [facility] PHYSICIANS ARTHROPATHY LA ANKLE AND FOOT 6989 UNSPECIFIED 03-28-2011 [facility] PRURITIC [facility] DISORDER INC 6929 CONTACT 03-27-2011 DERMATOLOGY DERMATITIS& OTHER CONSULTANTS ECZEMA DUE PSC UNSPEC CAUSE 80306 WHEEZING 03-20-2011 [facility] EMERGENCY SERVICES 7391 NONALLOPATH 03-08-2011 [facility] GONZALES IC LESION OF CERVICAL REGION NEC 4548 VARICOSE 02-23-2011 [facility] [place]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 SERVICES EXTREMITIES W/OTH COMPS 7827 SPONTANEOUS 02-23-2011 [facility] ECCHYMOSES [facility] INC 05032 CONTUSION 02-23-2011 [facility] [place] OF THIGH EMERGENCY SERVICES 4439 UNSPECIFIED 02-17-2011 [place] PERIPHERAL MEDICAL VASCULAR IMAGING ASS DISEASE 1101 DERMATOPHYT 02-10-2011 [facility] OSIS OF NAIL 71772 DIAB 02-10-2011 [facility] W/NEURO MANIFESTS TYPE II/UNS NOT UNCNTRL 80205 DIAB 02-10-2011 [facility] W/PERIPH CIRC D/O TYPE II/UNS NOT UNCNTRL 09033 ABDOMINAL 01-18-2011 [place] PAIN RIGHT MEDICAL LOWER IMAGING ASS QUADRANT 30181 HYPERSOMNIA 12-27-2010 [facility] WITH SLEEP DEIDRA APNEA UNSPECIFIED 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 53312 OTHER 10-26-2010 [facility] ALTERATION [facility] OF INC CONSCIOUSNE SS 9953 ALLERGY 09-13-2010 [facility] UNSPECIFIED AMBULANCE NOT SERVICE ELSEWHERE CLASSIFIED V1272 PERSONAL 08-25-2010 [facility] HISTORY OF [facility] COLONIC INC POLYPS 66580 BACKGROUND 07-28-2010 [facility] DIABETIC VISION RETINOPATHY 22804 UNSPECIFIED 07-27-2010 [facility] INFECTIVE [facility] OTITIS INC EXTERNA 06551 HYPOXEMIA 06-27-2010 [facility] 5589 OTH&UNSPEC 10-12-2009 [facility] NONINFECTIO EMERGENCY US SERVICES GASTROENTER ASSOCIATES ITIS&COLITI S 77728 PAPANICOLAO 04-16-2009 PATHOLOGY & U SMEAR OF CYTOLOGY VAGINA WITH LAB ASC-US 04090 ABDOMINAL 04-14-2009 [facility] PAIN, SEAGRAVES EPIGASTRIC INTERNAL MED 24715 ASTHMA 03-19-2009 [facility] UNSPECIFIED EMERGENCY WITH SERVICES EXACERBATIO ASSOCIATES N 7393 NONALLOPATH 03-17-2009 [place] IC LESION FAMILY OF LUMBAR CHIROPRACTI REGION NEC C 5999 UNSPECIFIED 03-09-2009 [facility], DISORDER CHELSY [place] OF URETHRA&URI NARY TRACT 30528 OSTEOARTHRO 03-09-2009 Mamta DUEÑAS INVLV MX CHELSY W [place]ITES [place] [address] OTHER 02-18-2009 [facility] [place] ABNORMAL EMERGENCY GLUCOSE SERVICES ASSOCIATES V5883 ENCOUNTER 01-25-2009 CARDIOLOGY FOR ASSOCIATES THERAPEUTIC OF DRUG [place] MONITORING 4580 ORTHOSTATIC 01-14-2009 [facility] AMBULANCE HYPOTENSION SERVICE 11829 ASPHYXIA 01-14-2009 [place] ASSOCIATES 7336 TIETZES 12-16-2008 [facility] DISEASE SEAGRAVES INTERNAL MED 37475 STOMATITIS 12-04-2008 [facility] DUEÑAS MUCOSITIS UNSPECIFIED 9778 POISONING 11-26-2008 [facility] OTHER SPEC EMERGENCY DRUGS&MEDIC SERVICES INAL ASSOCIATES SUBSTANCES 70534 UNSPECIFIED 10-30-2008 [facility], SITE OF CHELSY [place] ANKLE SPRAIN AND STRAIN E8498 OTHER 10-28-[address] [place] [address] OF IMAGING OCCURRENCE ASSOCIATES E8859 FALL FROM 10-28-2008 [place] OTHER MEDICAL SLIPPING IMAGING TRIPPING OR ASSOCIATES STUMBLING 7873 FLATULENCE 10-21-2008 [place] MEDICAL ERUCTATION SERV AND GAS FOUNDATIO PAIN 30788 VOMITING 09-22-2008 [facility] [place] ALONE EMERGENCY SERVICES ASSOCIATES 45398 VARIANTS 08-06-2008 [facility], MIGRAINE CHELSY W NEC INTRACT MIGRAINE W/[place] 93086 UNS 07-24-2008 [facility], GASTRITIS&G CHELSY W ASTRODUODIT IS W/O MENTION HEMORR 40016 ABDOMINAL/P 05-25-2008 [facility] ELVIC [facility] SWELLING INC MASS/LUMP UNSPEC SITE 01884 NEPHROTIC 04-27-2008 [facility] SYND W/OTH [facility] PATHAL LES INC DZ CLASS ELSW 27895 OTHER SPEC 04-15-2008 [place] MEDICAL GASTRITIS SERV WITHOUT FOUNDATIO MENTION HEMORRHAGE 39347 ERYTHEMA 03-04-2008 [facility] DUE TO BURN [facility] OF INC ABDOMINAL WALL 99627 BLISTERS 03-04-2008 RODRIGUE[facility] W/EPIDERMAL NATIONAL LOSS DUE CORPORATION BURN ABD WALL 31053 DERMATITIS 02-23-2008 [facility] DUE TO [facility] OTHER INC RADIATION 05891 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-2007 [facility] CARDIOLOGY OSIS [place] CLIENT SUCCESS SPECIALIST CORONARY ARTERY 43168 OTHER 12-18-2007 [facility]YSPNEA AND [facility] RESPIRATORY ABNORMALITI ES 7931 NONSPEC 12-18-2007 [facility] FIND RAD [facility] OTH EXAM HOSP BODY STRUCT LUNG FIELD 36601 NONSPECIFIC 12-18-2007 [facility] ABNORMAL [facility] ELECTROCARD HOSP IOGRAM V142 PERSONAL 12-18-2007 [facility] HISTORY OF [facility] ALLERGY TO HOSP SULFONAMIDE S 2443 OTHER 10-04-2007 [facility] HYPOTHYROID [facility] IS PROF SERV 2810 PERNICIOUS 09-20-2007 [facility] INTERNAL MED 7244 THORACIC/ANIL 09-17-2007 [facility]OFFCRB[facility] NEURITIS/RA DICULITIS UNSPEC 7246 DISORDERS 09-17-2007 [facility] ERVIN [facility] 0340 STREPTOCOCC 09-12-2007 [facility]RO[facility] INTERNAL MED 4149 UNSPECIFIED 08-30-2007 [facility] ISCHEMIC INTERNAL HEART MED DISEASE 3569 UNSPEC 08-20-2007 [facility] PERIPHERAL NEUROPATHY 7812 ABNORMALITY 08-20-2007 [place], OF GAIT [place] 7820 DISTURBANCE 08-20-2007 [place], OF SKIN CHUCK SENSATION 244.9 250.00 250.01 272.4 401.9 599.0 724.5 Chronic [place] back pain [facility] [id number] [facility] B37.2 CANDIDIASIS OF SKIN AND NAIL D72.829 ELEVATED WHITE BLOOD CELL COUNT, UNSPECIFIED E03.9 HYPOTHYROID ISM, UNSPECIFIED E11.649 TYPE 2 DIABETES MELLITUS WITH HYPOGLYCEMI A WITHOUT COMA E78.4 OTHER HYPERLIPIDE NIKOLAY E86.0 DEHYDRATION E87.6 HYPOKALEMIA G43.909 MIGRAINE, UNSP, NOT INTRACTABLE , WITHOUT STATUS MIGRAINOSUS H70.90 UNSPECIFIED MASTOIDITIS , UNSPECIFIED EAR H92.02 OTALGIA, LEFT EAR J04.0 ACUTE LARYNGITIS J06.9 ACUTE UPPER RESPIRATORY INFECTION, UNSPECIFIED J18.9 PNEUMONIA, UNSPECIFIED ORGANISM J44.1 CHRONIC OBSTRUCTIVE PULMONARY DISEASE W (ACUTE) EXACERBATIO N J45.909 UNSPECIFIED ASTHMA, UNCOMPLICAT ED K52.9 NONINFECTIV E GASTROENTER ITIS AND COLITIS, UNSPECIFIED K86.89 OTHER SPECIFIED DISEASES OF PANCREAS L03.119 CELLULITIS OF UNSPECIFIED PART OF LIMB L03.90 CELLULITIS, UNSPECIFIED L08.9 LOCAL INFECTION OF THE SKIN AND SUBCUTANEOU S TISSUE, UNSP L29.9 PRURITUS, UNSPECIFIED M21.611 BUNION OF RIGHT FOOT M51.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 HY, LUMBAR REGION M54.5 LOW BACK PAIN M54.9 DORSALGIA, UNSPECIFIED N23 UNSPECIFIED RENAL COLIC N28.9 DISORDER OF KIDNEY AND URETER, UNSPECIFIED N39.0 URINARY TRACT INFECTION, SITE NOT SPECIFIED R07.89 OTHER CHEST PAIN R07.9 CHEST PAIN, UNSPECIFIED R10.10 UPPER ABDOMINAL PAIN, UNSPECIFIED R10.84 GENERALIZED ABDOMINAL PAIN R13.10 DYSPHAGIA, UNSPECIFIED R16.0 HEPATOMEGAL Y, NOT ELSEWHERE CLASSIFIED R30.0 DYSURIA R40.0 SOMNOLENCE R47.02 DYSPHASIA R51 HEADACHE R53.83 OTHER FATIGUE R55 SYNCOPE AND COLLAPSE R60.0 LOCALIZED EDEMA R82.99 OTHER ABNORMAL FINDINGS IN URINE S00.83XA CONTUSION OF OTHER PART OF HEAD, INITIAL ENCOUNTER S00.93XA CONTUSION OF UNSPECIFIED PART OF HEAD, INITIAL ENCOUNTER S05.10XA CONTUSION OF EYEBALL AND ORBITAL TISSUES, UNSP EYE, INIT S16.1XXA STRAIN OF MUSCLE, FASCIA AND TENDON AT NECK LEVEL, INIT S20.211A CONTUSION OF RIGHT FRONT WALL OF THORAX, INITIAL ENCOUNTER S20.212A CONTUSION OF LEFT FRONT WALL OF THORAX, INITIAL ENCOUNTER S20.219A CONTUSION OF UNSPECIFIED FRONT WALL OF THORAX, INIT ENCNTR S40.012A CONTUSION OF LEFT SHOULDER, INITIAL ENCOUNTER S43.409A UNSP SPRAIN OF UNSPECIFIED SHOULDER JOINT, INIT ENCNTR S62.308A UNSP FRACTURE OF OTH METACARPAL BONE, INIT FOR CLOS FX S63.501A UNSPECIFIED SPRAIN OF RIGHT WRIST, INITIAL ENCOUNTER S63.509A UNSPECIFIED SPRAIN OF UNSPECIFIED WRIST, INITIAL ENCOUNTER S70.02XA CONTUSION OF LEFT HIP, INITIAL ENCOUNTER S73.109A UNSPECIFIED SPRAIN OF UNSPECIFIED HIP, INITIAL ENCOUNTER S80.01XA CONTUSION OF RIGHT KNEE, INITIAL ENCOUNTER S80.211A ABRASION, RIGHT KNEE, INITIAL ENCOUNTER S83.90XA SPRAIN OF UNSPECIFIED SITE OF UNSPECIFIED KNEE, INIT ENCNTR S83.92XA SPRAIN OF UNSPECIFIED SITE OF LEFT KNEE, INITIAL ENCOUNTER T14.8 OTHER INJURY OF UNSPECIFIED BODY REGION Z20.6 CONTACT W AND (SUSPECTED) EXPOSURE TO HUMAN IMMUNODEF VIRUS Z86.69 PERSONAL HISTORY OF DIS OF THE NERVOUS SYS AND SENSE ORGANS Z86.79 PERSONAL HISTORY OF OTHER DISEASES OF THE CIRCULATORY SYSTEM Allergies, Adverse Reactions, Alerts Type Drug Allergy Adverse Reaction to Substance Substance Reaction Severity SULFA (sulfonamide) I-HIVES Unknown Levofloxacin I-HIVES Unknown Clinical Alert Notifications Alert Asthma: no influenza vaccine in the last 365 days Diabetes: no A1C in the last 6 months Diabetes: no eye exam in the last 365 days Diabetes: no influenza vaccine in the last 365 days Diabetes: no lipid panel in the last 365 days Member has >/= 10 ED visits within the past 365 days Medications Na ND Rx Da Fi Fi Am Da Di Ph RX Ph St me C No te ll ll ou ys ag ar # ys at rm s nt no ma ic us Or Da si cy ia de te s n re d NO 00 11 0 No VO 16 -1 LI 91 3- Lo N 83 20 ng R 31 13 er 10 1 0 Ac UN ti IT ve S/ ML AL KE 00 10 0 No TO 40 -1 RO 93 0- Lo LA 79 20 ng C 60 13 er 60 1 Ac MG ti /2 ve ML AL EN 00 10 0 No EM 53 -1 A 67 0- Lo 41 20 ng 55 13 er 1 Ac ti ve CI 24 10 0 No TR 38 -1 AT 50 0- Lo E 67 20 ng OF 51 13 er 0 MA Ac GN ti ES ve IA SO LN ON 00 10 0 No DA 64 -1 NS 16 0- Lo ET 08 20 ng RO 02 13 er N 5 HC Ac L ti 4 ve MG /2 ML AL HY 00 08 10 01 90 30 RI [address] 18 -0 -0 .0 TE 42 AN ti OX 50 2- 8- 00 25 TA ve YZ 61 20 20 AI IN 50 09 09 D RA E 1 PH ME PA AR SH M M 50 #3 93 MG 8 CA P BE 65 09 10 00 9. 3 RI 80 GA Ac NZ 16 -2 -0 00 TE 16 IN ti ON 20 5- 8- 0 34 EY ve AT 53 20 20 AI AT 61 09 09 D WY E 0 PH CH 10 AR AE 0 M L MG #3 S 93 CA 8 PS UL E NO 00 09 10 01 10 25 RI 79 AR Ac VO 16 -0 -0 .0 TE 81 NO ti LI 91 2- 8- 00 84 LD ve N 83 20 20 AI 70 71 09 09 D RI -3 1 PH CH 0 AR AR 10 M D 0 #3 W UN 93 IT 8 /M L AL 60 09 09 00 20 10 EA 14 AR Ac 50 -1 -[address] 27 NO ti 51 5- 4- 00 SI 01 LD ve 30 20 20 DE 90 09 09 RI 1 PH CH AR AR MA D CY W OF CY NT HI AN A ZY 00 08 09 01 30 30 RI 79 GH Ac IN 00 -0 -2 .0 TE 42 AN ti EX 24 2- 4- 00 23 TA ve A 11 20 20 AI 5 53 09 09 D RA MG 0 PH ME AR SH TA M BL #3 ET 93 8 CE 00 08 09 00 20 10 RI 79 MC Ac FD 78 -2 -1 .0 TE 76 KE ti IN 12 8- 0- 00 43 WY ve IR 17 20 20 AI E 66 09 09 D JR 30 0 PH 0 AR WI MG M LL #3 IA CA 93 M PS 8 F UL E NO 00 09 09 00 10 25 RI 79 AR Ac VO 16 -0 -1 .0 TE 81 NO ti LI 91 2- 0- 00 84 LD ve N 83 20 20 AI 70 71 09 09 D RI -3 1 PH CH 0 AR AR 10 M D 0 #3 W UN 93 IT 8 /M L AL VY 66 05 09 03 30 30 RI 78 AR Ac TO 58 -2 -1 .0 TE 60 NO ti RI 20 8- 0- 00 07 LD ve N 31 20 20 AI 10 33 09 09 D RI -4 1 PH CH 0 AR AR MG M D #3 W TA 93 BL 8 ET ZY 00 08 09 01 30 30 RI 79 GH Ac IN 00 -0 -1 .0 TE 42 AN ti EX 24 2- 0- 00 24 TA ve A 41 20 20 AI 15 53 09 09 D RA 0 PH ME MG AR SH M TA #3 BL 93 ET 8 BI 00 02 08 06 30 30 RI 77 AR Ac SO 37 -1 -2 .0 TE 04 NO ti IN 80 2- 7- 00 86 LD ve OL 52 20 20 AI OL 39 09 09 D RI 3 PH CH FU AR AR MA M D RA #3 W TE 93 5 8 MG TA B AM 65 08 08 00 21 7 RI 79 GA Ac OX 86 -2 -2 .0 TE 65 IN ti IC 20 1- 7- 00 80 EY ve IL 01 20 20 AI LI 70 09 09 D WY N 5 PH CH 50 AR AE 0 M L MG #3 S 93 CA 8 PS UL E LE 00 07 08 01 30 30 RI 79 AR Ac VO 37 -1 -2 .0 TE 20 NO ti TH 81 6- 7- 00 96 LD ve YR 80 20 20 AI OX 50 09 09 D RI IN 1 PH CH E AR AR 75 M D #3 W MC 93 G 8 TA BL ET ZY 00 08 08 00 30 30 RI 79 GH Ac IN 00 -0 -1 .0 TE 42 AN ti EX 24 2- 3- 00 23 TA ve A 11 20 20 AI 5 53 09 09 D RA MG 0 PH ME AR SH TA M BL #3 ET 93 8 NO 00 08 08 00 10 26 RI 79 LE Ac VO 16 -0 -1 .0 TE 42 VY ti LI 91 3- 3- 00 28 ve N 83 20 20 AI LI 70 71 09 09 D ZA -3 1 PH 0 AR 10 M 0 #3 UN 93 IT 8 /M L AL HY 00 08 08 00 90 30 RI [address] 18 -0 -1 .0 TE 42 AN ti OX 50 2- 3- 00 25 TA ve YZ 61 20 20 AI IN 50 09 09 D RA E 1 PH ME PA AR SH M M 50 #3 93 MG 8 CA P LA 00 08 08 00 30 30 RI 79 LE Ac NT 08 -0 -1 .0 TE 42 VY ti US 82 3- 3- 00 27 ve 22 20 20 AI LI 10 03 09 09 D ZA 0 3 PH UN AR IT M S/ #3 ML 93 8 AL TR 60 05 08 02 30 30 RI 78 AR Ac IA 50 -1 -1 .0 TE 46 NO ti MT 52 8- 3- 00 61 LD ve ER 65 20 20 AI EN 70 09 09 D RI E- 1 PH CH HC AR AR TZ M D #3 W 75 93 -5 8 0 MG TA B FU 00 07 07 00 30 30 RI 79 AR Ac RO 37 -2 -3 .0 TE 27 NO ti SE 80 1- 0- 00 15 LD ve WY 21 20 20 AI DE 61 09 09 D RI 0 PH CH 40 AR AR M D MG #3 W 93 TA 8 BL ET IN 00 05 07 01 90 30 RI 78 AR Ac DO 37 -1 -3 .0 TE 40 NO ti ME 80 3- 0- 00 02 LD ve TH 14 20 20 AI AC 70 09 09 D RI IN 1 PH CH AR AR 50 M D #3 W MG 93 8 CA PS UL E HY 68 06 07 01 60 20 RI [address] 46 -3 -3 .0 TE 00 NO ti OX 20 0- 0- 00 85 LD ve YZ 36 20 20 AI IN 10 09 09 D RI E 1 PH CH HC AR AR L M D 25 #3 W 93 MG 8 TA BL ET BI 00 02 07 05 30 30 RI 77 AR Ac SO 37 -1 -3 .0 TE 04 NO ti IN 80 2- 0- 00 86 LD ve OL 52 20 20 AI OL 39 09 09 D RI 3 PH CH FU AR AR MA M D RA #3 W TE 93 5 8 MG TA B LA 00 07 07 00 20 30 RI 79 AR Ac NT 08 -1 -3 .0 TE 23 NO ti US 82 8- 0- 00 51 LD ve 22 20 20 AI 10 03 09 09 D RI 0 3 PH CH UN AR AR IT M D S/ #3 W ML 93 8 AL GL 00 07 07 03 30 30 RI 74 HU Ac YB 09 -1 -3 .0 TE 18 NT ti UR 39 7- 0- 00 52 ER ve ID 36 20 20 AI E 41 08 09 D NA 5 0 PH NC MG AR Y M C TA #3 BL 93 ET 8 GA 59 07 07 00 90 30 RI 79 AR Ac BA 76 -2 -3 .0 TE 27 NO ti PE 25 1- 0- 00 14 LD ve NT 02 20 20 AI IN 70 09 09 D RI 1 PH CH 30 AR AR 0 M D MG #3 W 93 CA 8 PS UL E 00 07 07 00 30 30 RI 79 AR Ac 08 -2 -3 .0 TE 27 NO ti 51 1- 0- 00 16 LD ve 71 20 20 AI 80 09 09 D RI 2 PH CH AR AR M D #3 W 93 8 CL 00 07 07 00 90 30 RI 79 AR Ac ON 09 -2 -3 .0 TE 27 NO ti AZ 30 2- 0- 00 50 LD ve EP 83 20 20 AI AM 30 09 09 D RI 1 1 PH CH AR AR MG M D #3 W TA 93 BL 8 ET AZ 59 07 07 00 6. 5 RI 79 AR Ac IT 76 -2 -3 00 TE 27 NO ti HR 23 1- 0- 0 13 LD ve OM 06 20 20 AI YC 00 09 09 D RI IN 1 PH CH AR AR 25 M D 0 #3 W MG 93 8 TA BL ET LE 00 07 07 00 30 30 RI 79 AR Ac VO 37 -1 -3 .0 TE 20 NO ti TH 81 6- 0- 00 96 LD ve YR 80 20 20 AI OX 50 09 09 D RI IN 1 PH CH E AR AR 75 M D #3 W MC 93 G 8 TA BL ET VY 66 05 07 02 30 30 RI 78 AR Ac TO 58 -2 -3 .0 TE 60 NO ti RI 20 8- 0- 00 07 LD ve N 31 20 20 AI 10 33 09 09 D RI -4 1 PH CH 0 AR AR MG M D #3 W TA 93 BL 8 ET CE 00 07 07 00 20 10 RI 79 AR Ac FD 78 -0 -1 .0 TE 06 NO ti IN 12 4- 6- 00 41 LD ve IR 17 20 20 AI 66 09 09 D RI 30 0 PH CH 0 AR AR MG M D #3 W CA 93 PS 8 UL E 00 06 07 01 90 30 RI 78 No Ac 09 -0 -1 .0 TE 73 t ti 34 4- 6- 00 42 Av ve 35 20 20 AI ai 60 09 09 D la 1 PH bl AR e M #3 93 8 HY 68 06 07 00 60 20 RI [address] 46 -3 -1 .0 TE 00 NO ti OX 20 0- 6- 00 85 LD ve YZ 36 20 20 AI IN 10 09 09 D RI E 1 PH CH HC AR AR L M D 25 #3 W 93 MG 8 TA BL ET 00 06 07 01 30 30 RI 78 No Ac 09 -0 -1 .0 TE 73 t ti 37 4- 6- 00 43 Av ve 24 20 20 AI ai 20 09 09 D la 6 PH bl AR e M #3 93 8 TR 00 05 07 01 12 30 RI 78 AR Ac AM 09 -1 -1 0. TE 40 NO ti AD 30 3- 6- 00 03 LD ve OL 05 20 20 0 AI 80 09 09 D RI HC 1 PH CH L AR AR 50 M D #3 W MG 93 8 TA BL ET TR 60 05 07 01 30 30 RI 78 AR Ac IA 50 -1 -1 .0 TE 46 NO ti MT 52 8- 6- 00 61 LD ve ER 65 20 20 AI EN 70 09 09 D RI E- 1 PH CH HC AR AR TZ M D #3 W 75 93 -5 8 0 MG TA B VY 66 05 07 01 30 30 RI 78 AR Ac TO 58 -2 -0 .0 TE 60 NO ti RI 20 8- 2- 00 07 LD ve N 31 20 20 AI 10 33 09 09 D RI -4 1 PH CH 0 AR AR MG M D #3 W TA 93 BL 8 ET LA 00 07 07 05 20 28 RI 74 AR Ac NT 08 -1 -0 .0 TE 16 NO ti US 82 6- 2- 00 17 LD ve 22 20 20 AI 10 03 08 09 D RI 0 3 PH CH UN AR AR IT M D S/ #3 W ML 93 8 AL LO 00 05 07 01 90 30 RI 78 AR Ac RA 22 -2 -0 .0 TE 60 NO ti ZE 82 8- 2- 00 06 LD ve PA 05 20 20 AI M 95 09 09 D RI 1 0 PH CH MG AR AR M D TA #3 W BL 93 ET 8 NO 00 05 07 01 10 30 RI 78 AR Ac VO 16 -3 -0 .0 TE 62 NO ti LI 91 1- 2- 00 73 LD ve N 83 20 20 AI 70 71 09 09 D RI -3 1 PH CH 0 AR AR 10 M D 0 #3 W UN 93 IT 8 /M L AL BI 00 02 07 04 30 30 RI 77 AR Ac SO 37 -1 -0 .0 TE 04 NO ti IN 80 2- 2- 00 86 LD ve OL 52 20 20 AI OL 39 09 09 D RI 3 PH CH FU AR AR MA M D RA #3 W TE 93 5 8 MG TA B GL 00 07 07 02 30 30 RI 74 HU Ac YB 09 -1 -0 .0 TE 18 NT ti UR 39 7- 2- 00 52 ER ve ID 36 20 20 AI E 41 08 09 D NA 5 0 PH NC MG AR Y M C TA #3 BL 93 ET 8 ME 60 06 07 00 30 30 EA 13 BE Ac LO 50 -2 -[address] 25 SS ti XI 52 4- 2- 00 SI 16 ON ve CA 55 20 20 DE M [address] 15 1 PH EP AR HE MG MA N CY A TA BL OF ET CY NT HI AN A LE 00 07 07 09 30 30 RI 74 AR Ac VO 37 -1 -0 .0 TE 16 NO ti TH 81 6- 2- 00 14 LD ve YR 80 20 20 AI OX 50 08 09 D RI IN 1 PH CH E AR AR 75 M D #3 W MC 93 G 8 TA BL ET ME 00 06 07 00 21 6 EA 13 BE Ac TH 78 -2 -[address] 25 SS ti YL 15 4- 2- 00 SI 15 ON ve IN 02 20 20 DE ED [address] NI 7 PH EP SO AR HE LO MA N NE CY A 4 OF MG CY NT DO HI SE AN PK A NO 00 05 06 00 10 30 RI 78 AR Ac VO 16 -3 -1 .0 TE 62 NO ti LI 91 1- 8- 00 73 LD ve N 83 20 20 AI 70 71 09 09 D RI -3 1 PH CH 0 AR AR 10 M D 0 #3 W UN 93 IT 8 /M L AL 00 06 06 00 90 30 RI 78 No Ac 09 -0 -1 .0 TE 73 t ti 34 4- 8- 00 42 Av ve 35 20 20 AI ai 60 09 09 D la 1 PH bl AR e M #3 93 8 NI 00 06 06 00 14 7 EA 13 GIBBS Ac TR 18 -0 -[address] 01 MO ti OF 50 4- 8- 00 SI 72 N ve UR 12 20 20 DE AN AN [address] TO 1 PH EW IN AR R MA MO CY NO -M OF CR CY NT 10 HI 0 AN MG A 00 06 06 00 30 30 RI 78 No Ac 09 -0 -1 .0 TE 73 t ti 37 4- 8- 00 43 Av ve 24 20 20 AI ai 20 09 09 D la 6 PH bl AR e M #3 93 8 CE 00 06 06 00 20 6 RI 78 AR Ac PH 09 -1 -1 0. TE 80 NO ti AL 34 2- 8- 00 07 LD ve EX 17 20 20 0 AI IN 77 09 09 D RI 3 PH CH 25 AR AR 0 M D MG #3 W /5 93 8 ML PHELPS SP LA 00 07 06 04 20 28 RI 74 AR Ac NT 08 -1 -1 .0 TE 16 NO ti US 82 6- 8- 00 17 LD ve 22 20 20 AI 10 03 08 09 D RI 0 3 PH CH UN AR AR IT M D S/ #3 W ML 93 8 AL BI 00 02 06 03 30 30 RI 77 AR Ac SO 37 -1 -0 .0 TE 04 NO ti IN 80 2- 4- 00 86 LD ve OL 52 20 20 AI OL 39 09 09 D RI 3 PH CH FU AR AR MA M D RA #3 W TE 93 5 8 MG TA B 00 05 06 00 40 10 RI 78 AR Ac 40 -1 -0 .0 TE 46 NO ti 60 8- 4- 00 62 LD ve 35 20 20 AI 90 09 09 D RI 1 PH CH AR AR M D #3 W 93 8 GL 00 07 06 01 30 30 RI 74 HU Ac YB 09 -1 -0 .0 TE 18 NT ti UR 39 7- 4- 00 52 ER ve ID 36 20 20 AI E 41 08 09 D NA 5 0 PH NC MG AR Y M C TA #3 BL 93 ET 8 LE 00 07 06 08 30 30 RI 74 AR Ac VO 37 -1 -0 .0 TE 16 NO ti TH 81 6- 4- 00 14 LD ve YR 80 20 20 AI OX 50 08 09 D RI IN 1 PH CH E AR AR 75 M D #3 W MC 93 G 8 TA BL ET LO 00 05 06 00 90 30 RI 78 AR Ac RA 22 -2 -0 .0 TE 60 NO ti ZE 82 8- 4- 00 06 LD ve PA 05 20 20 AI M 95 09 09 D RI 1 0 PH CH MG AR AR M D TA #3 W BL 93 ET 8 AZ 59 05 06 00 6. 5 RI 78 AR Ac IT 76 -2 -0 00 TE 60 NO ti HR 23 8- 4- 0 03 LD ve OM 06 20 20 AI YC 00 09 09 D RI IN 1 PH CH AR AR 25 M D 0 #3 W MG 93 8 TA BL ET VY 66 05 06 00 30 30 RI 78 AR Ac TO 58 -2 -0 .0 TE 60 NO ti RI 20 8- 4- 00 07 LD ve N 31 20 20 AI 10 33 09 09 D RI -4 1 PH CH 0 AR AR MG M D #3 W TA 93 BL 8 ET LO 00 06 06 06 30 30 RI 75 AR Ac RA 78 -1 -0 .0 TE 32 NO ti TA 15 9- 4- 00 00 LD ve DI 07 20 20 AI NE 70 08 09 D RI 1 PH CH 10 AR AR M D MG #3 W 93 TA 8 BL ET 60 05 06 00 24 6 RI 78 AR Ac 25 -2 -0 0. TE 60 NO ti 80 8- 4- 00 04 LD ve 23 20 20 0 AI 91 09 09 D RI 6 PH CH AR AR M D #3 W 93 8 TR 60 05 06 00 30 30 RI 78 AR Ac IA 50 -1 -0 .0 TE 46 NO ti MT 52 8- 4- 00 61 LD ve ER 65 20 20 AI EN 70 09 09 D RI E- 1 PH CH HC AR AR TZ M D #3 W 75 93 -5 8 0 MG TA B IN 00 05 05 00 90 30 RI 78 AR Ac DO 37 -1 -2 .0 TE 40 NO ti ME 80 3- 1- 00 02 LD ve TH 14 20 20 AI AC 70 09 09 D RI IN 1 PH CH AR AR 50 M D #3 W MG 93 8 CA PS UL E 00 05 05 00 60 30 RI 78 AR Ac 59 -0 -2 .0 TE 34 NO ti 10 8- 1- 00 16 LD ve 33 20 20 AI 90 09 09 D RI 1 PH CH AR AR M D #3 W 93 8 00 03 05 01 90 30 RI 77 No Ac 09 -1 -2 .0 TE 82 t ti 34 2- 1- 00 08 Av ve 35 20 20 AI ai 60 09 09 D la 1 PH bl AR e M #3 93 8 TR 00 05 05 00 12 30 RI 78 AR Ac AM 09 -1 -2 0. TE 40 NO ti AD 30 3- 1- 00 03 LD ve OL 05 20 20 0 AI 80 09 09 D RI HC 1 PH CH L AR AR 50 M D #3 W MG 93 8 TA BL ET NO 00 11 05 03 10 30 RI 75 MC Ac VO 16 -0 -2 .0 TE 72 KE ti LI 91 8- 1- 00 90 [place] ve N 83 20 20 AI E 70 71 08 09 D JR -3 1 PH 0 AR WI 10 M LL 0 #3 IA UN 93 M IT 8 F /M L AL 00 05 05 00 60 15 RI 78 AR Ac 60 -0 -2 .0 TE 30 NO ti 35 5- 1- 00 57 LD ve 46 20 20 AI 72 09 09 D RI 8 PH CH AR AR M D #3 W 93 8 IN 37 05 05 00 28 28 RI 78 AR Ac IL 00 -0 -2 .0 TE 25 NO ti OS 00 4- 1- 00 86 LD ve EC 45 20 20 AI 50 09 09 D RI OT 3 PH CH C AR AR 20 M D .6 #3 W 93 MG 8 TA BL ET CL 00 12 05 05 60 30 RI 76 AR Ac ON 09 -3 -0 .0 TE 45 NO ti AZ 30 0- 7- 00 30 LD ve EP 83 20 20 AI AM 20 08 09 D RI 1 PH CH 0. AR AR 5 M D MG #3 W 93 TA 8 BL ET GL 00 07 05 00 30 30 RI 74 HU Ac YB 09 -1 -0 .0 TE 18 NT ti UR 39 7- 7- 00 52 ER ve ID 36 20 20 AI E 41 08 09 D NA 5 0 PH NC MG AR Y M C TA #3 BL 93 ET 8 00 03 05 00 90 30 RI 78 AR Ac 17 -1 -0 .0 TE 07 NO ti 25 9- 7- 00 82 LD ve 66 20 20 AI 46 09 09 D RI 0 PH CH AR AR M D #3 W 93 8 GO 52 04 05 00 40 1 RI 78 HAYDEN Ac LY 26 -2 -0 00 TE 16 SC ti TE 80 2- 7- .0 50 H ve LY 10 20 20 00 AI AN 00 09 09 D TO SO 1 PH NI ANIL AR O TI M ON #3 93 8 LE 00 07 05 07 30 30 RI 74 AR Ac VO 37 -1 -0 .0 TE 16 NO ti TH 81 6- 7- 00 14 LD ve YR 80 20 20 AI OX 50 08 09 D RI IN 1 PH CH E AR AR 75 M D #3 W MC 93 G 8 TA BL ET ME 00 04 05 00 2. 1 RI 78 HAYDEN Ac TO 09 -2 -0 00 TE 16 SC ti CL 32 7- 7- 0 52 H ve OP 20 20 20 AI AN RA 30 09 09 D TO [place] 5 PH NI DE AR O M 10 #3 93 MG 8 TA BL ET 00 04 04 00 47 12 RI 77 AR Ac 18 -1 -2 3. TE 97 NO ti 20 3- 3- 00 48 LD ve 25 20 20 0 AI 94 09 09 D RI 0 PH CH AR AR M D #3 W 93 8 BI 00 02 04 02 30 30 RI 77 AR Ac SO 37 -1 -2 .0 TE 04 NO ti IN 80 2- 3- 00 86 LD ve OL 52 20 20 AI OL 39 09 09 D RI 3 PH CH FU AR AR MA M D RA #3 W TE 93 5 8 MG TA B BA 00 10 04 03 60 30 RI 75 OC Ac CL 17 -1 -2 .0 TE 43 ON ti OF 24 7- 3- 00 59 NE ve EN 09 20 20 AI LL 66 08 09 D 10 0 PH TATO AR HN MG M #3 TA 93 BL 8 ET CI 00 04 04 00 20 10 RI 77 AR Ac IN 17 -1 -2 .0 TE 97 NO ti OF 25 3- 3- 00 44 LD ve LO 31 20 20 AI XA 26 09 09 D RI CI 0 PH CH N AR AR HC M D L #3 W 50 93 0 8 MG TA B DI 00 04 04 00 30 6 RI 77 AR Ac PH 37 -1 -2 .0 TE 97 NO ti EN 80 3- 3- 00 45 LD ve OX 41 20 20 AI YL 50 09 09 D RI AT 1 PH CH E- AR AR AT M D RO #3 W P 93 2. 8 5- 0. 02 5 LO 00 06 04 05 30 30 RI 75 AR Ac RA 78 -1 -2 .0 TE 32 NO ti TA 15 9- 3- 00 00 LD ve DI 07 20 20 AI NE 70 08 09 D RI 1 PH CH 10 AR AR M D MG #3 W 93 TA 8 BL ET BU 00 02 04 01 60 15 RI 77 AR Ac TA 60 -1 -2 .0 TE 04 NO ti LB 32 2- 3- 00 85 LD ve -A 54 20 20 AI CE 42 09 09 D RI TA 1 PH CH W[place] AR AR N- M D CA #3 W FF 93 8 50 -3 25 -4 0 00 06 04 02 30 30 RI 76 OC Ac 09 -2 -2 .0 TE 24 ON ti 37 5- 3- 00 70 NE ve 15 20 20 AI LL 55 08 09 D 6 PH TATO AR HN M #3 93 8 00 03 04 00 90 30 RI 77 No Ac 09 -1 -0 .0 TE 82 t ti 34 2- 9- 00 08 Av ve 35 20 20 AI ai 60 09 09 D la 1 PH bl AR e M #3 93 8 CL 00 12 04 04 60 30 RI 76 AR Ac ON 09 -3 -0 .0 TE 45 NO ti AZ 30 0- 9- 00 30 LD ve EP 83 20 20 AI AM 20 08 09 D RI 1 PH CH 0. AR AR 5 M D MG #3 W 93 TA 8 BL ET 00 03 04 00 30 30 RI 77 No Ac 09 -1 -0 .0 TE 82 t ti 37 2- 9- 00 10 Av ve 24 20 20 AI ai 20 09 09 D la 6 PH bl AR e M #3 93 8 TR 50 03 04 00 30 30 RI 77 No Ac AZ 11 -1 -0 .0 TE 82 t ti OD 10 2- 9- 00 09 Av ve ON 43 20 20 AI ai E 30 09 09 D la 50 1 PH bl AR e MG M #3 TA 93 BL 8 ET BI 00 02 03 01 30 30 RI 77 AR Ac SO 37 -1 -2 .0 TE 04 NO ti IN 80 2- 6- 00 86 LD ve OL 52 20 20 AI OL 39 09 09 D RI 3 PH CH FU AR AR MA M D RA #3 W TE 93 5 8 MG TA B 00 03 03 00 90 30 RI 77 AR Ac 17 -1 -2 .0 TE 61 NO ti 25 9- 6- 00 48 LD ve 66 20 20 AI 46 09 09 D RI 0 PH CH AR AR M D #3 W 93 8 LA 00 07 03 03 20 28 RI 74 AR Ac NT 08 -1 -2 .0 TE 16 NO ti US 82 6- 6- 00 17 LD ve 22 20 20 AI 10 03 08 09 D RI 0 3 PH CH UN AR AR IT M D S/ #3 W ML 93 8 AL 00 01 03 01 60 30 RI 76 AR Ac 59 -3 -2 .0 TE 88 NO ti 10 0- 6- 00 37 LD ve 33 20 20 AI 90 09 09 D RI 1 PH CH AR AR M D #3 W 93 8 GL 00 07 03 07 30 30 RI 74 AR Ac YB 09 -1 -2 .0 TE 16 NO ti UR 39 6- 6- 00 15 LD ve ID 36 20 20 AI E 41 08 09 D RI 5 0 PH CH MG AR AR M D TA #3 W BL 93 ET 8 DE 00 12 03 02 30 30 RI 76 AR Ac TR 00 -3 -1 .0 TE 46 NO ti OL 95 0- 2- 00 01 LD ve 19 20 20 AI LA 10 08 09 D RI 4 1 PH CH AR AR MG M D #3 W CA 93 PS 8 UL E 00 01 03 01 90 30 RI 76 No Ac 09 -2 -1 .0 TE 88 t ti 34 9- 2- 00 89 Av ve 35 20 20 AI ai 60 09 09 D la 1 PH bl AR e M #3 93 8 NO 00 11 03 02 10 30 RI 75 MC Ac VO 16 -0 -1 .0 TE 72 KE ti LI 91 8- 2- 00 90 [place] ve N 83 20 20 AI E 70 71 08 09 D JR -3 1 PH 0 AR WI 10 M LL 0 #3 IA UN 93 M IT 8 F /M L AL LO 00 06 03 04 30 30 RI 75 AR Ac RA 78 -1 -1 .0 TE 32 NO ti TA 15 9- 2- 00 00 LD ve DI 07 20 20 AI NE 70 08 09 D RI 1 PH CH 10 AR AR M D MG #3 W 93 TA 8 BL ET CL 00 12 03 03 60 30 RI 76 AR Ac ON 09 -3 -1 .0 TE 45 NO ti AZ 30 0- 2- 00 30 LD ve EP 83 20 20 AI AM 20 08 09 D RI 1 PH CH 0. AR AR 5 M D MG #3 W 93 TA 8 BL ET BI 00 02 02 00 30 30 RI 77 AR Ac SO 37 -1 -2 .0 TE 04 NO ti IN 80 2- 6- 00 86 LD ve OL 52 20 20 AI OL 39 09 09 D RI 3 PH CH FU AR AR MA M D RA #3 W TE 93 5 8 MG TA B 00 10 02 02 60 30 RI 75 OC Ac 04 -1 -2 .0 TE 43 ON ti 50 7- 6- 00 58 NE ve 64 20 20 AI LL 06 08 09 D 5 PH TATO AR HN M #3 93 8 LE 00 07 02 06 30 30 RI 74 AR Ac VO 37 -1 -2 .0 TE 16 NO ti TH 81 6- 6- 00 14 LD ve YR 80 20 20 AI OX 50 08 09 D RI IN 1 PH CH E AR AR 75 M D #3 W MC 93 G 8 TA BL ET BU 00 02 02 00 60 15 RI 77 AR Ac TA 60 -1 -2 .0 TE 04 NO ti LB 32 2- 6- 00 85 LD ve -A 54 20 20 AI CE 42 09 09 D RI TA 1 PH CH WY AR AR N- M D CA #3 W FF 93 8 50 -3 25 -4 0 00 06 02 01 30 30 RI 76 OC Ac 09 -2 -2 .0 TE 24 ON ti 37 5- 6- 00 70 NE ve 15 20 20 AI LL 55 08 09 D 6 PH TATO AR HN M #3 93 8 00 01 02 01 40 20 RI 76 AR Ac 59 -1 -2 .0 TE 62 NO ti 13 0- 6- 00 87 LD ve 96 20 20 AI 80 09 09 D RI 1 PH CH AR AR M D #3 W 93 8 BA 00 10 02 02 60 30 RI 75 OC Ac CL 17 -1 -2 .0 TE 43 ON ti OF 24 7- 6- 00 59 NE ve EN 09 20 20 AI LL 66 08 09 D 10 0 PH TATO AR HN MG M #3 TA 93 BL 8 ET CI 00 02 02 00 20 10 RI 77 AR Ac IN 17 -1 -2 .0 TE 04 NO ti OF 25 2- 6- 00 84 LD ve LO 31 20 20 AI XA 26 09 09 D RI CI 0 PH CH N AR AR HC M D L #3 W 50 93 0 8 MG TA B GL 00 07 02 06 30 30 RI 74 AR Ac YB 09 -1 -2 .0 TE 16 NO ti UR 39 6- 6- 00 15 LD ve ID 36 20 20 AI E 41 08 09 D RI 5 0 PH CH MG AR AR M D TA #3 W BL 93 ET 8 TR 50 01 02 00 30 30 RI 76 RI Ac AZ 11 -2 -1 .0 TE 88 TE ti OD 10 9- 2- 00 93 ve ON 43 20 20 AI AI E 30 09 09 D D 50 1 PH PH AR AR MG M MA #3 CY TA 93 BL 8 #3 ET 93 8 00 01 02 00 30 30 RI 76 RI Ac 09 -2 -1 .0 TE 88 TE ti 37 9- 2- 00 88 ve 24 20 20 AI AI 20 09 09 D D 6 PH PH AR AR M MA #3 CY 93 8 #3 93 8 55 01 02 00 9. 30 RI 76 AR Ac 11 -3 -1 00 TE 87 NO ti 10 0- 2- 0 98 LD ve 73 20 20 AI 70 09 09 D RI 9 PH CH AR AR M D #3 W 93 8 00 01 02 00 90 30 RI 76 RI Ac 09 -2 -1 .0 TE 88 TE ti 34 9- 2- 00 89 ve 35 20 20 AI AI 60 09 09 D D 1 PH PH AR AR M MA #3 CY 93 8 #3 93 8 00 01 02 00 60 30 RI 76 AR Ac 59 -3 -1 .0 TE 88 NO ti 10 0- 2- 00 37 LD ve 33 20 20 AI 90 09 09 D RI 1 PH CH AR AR M D #3 W 93 8 LO 00 06 02 03 30 30 RI 75 AR Ac RA 78 -1 -1 .0 TE 32 NO ti TA 15 9- 2- 00 00 LD ve DI 07 20 20 AI NE 70 08 09 D RI 1 PH CH 10 AR AR M D MG #3 W 93 TA 8 BL ET DE 00 12 02 01 30 30 RI 76 AR Ac TR 00 -3 -1 .0 TE 46 NO ti OL 95 0- 2- 00 01 LD ve 19 20 20 AI LA 10 08 09 D RI 4 1 PH CH AR AR MG M D #3 W CA 93 PS 8 UL E CL 00 12 02 02 60 30 RI 76 AR Ac ON 3 -1 .0 TE 45 NO ti AZ 30 0- 2- 00 30 LD ve EP 83 20 20 AI AM 20 08 09 D RI 1 PH CH 0. AR AR 5 M D MG #3 W 93 TA 8 BL ET TI 55 02 01 00 60 30 RI 76 OC Ac ZA 11 -0 -3 .0 TE 75 ON ti NI 10 8- 0- 00 52 NE ve DI 17 20 20 AI LL NE 91 08 09 D 5 PH TATO HC AR HN L M 2 #3 MG 93 8 TA BL ET ME 00 01 01 00 90 30 RI 76 HAYDEN Ac TO 09 -0 -3 .0 TE 67 SC ti CL 32 7- 0- 00 19 H ve OP 20 20 20 AI AN RA 30 09 09 D TO [place] 5 PH NI DE AR O M 10 #3 93 MG 8 TA BL ET CL 00 12 01 01 60 30 RI 76 AR Ac ON 09 3 -3 .0 TE 45 NO ti AZ 30 0- 0- 00 30 LD ve EP 83 20 20 AI AM 20 08 09 D RI 1 PH CH 0. AR AR 5 M D MG #3 W 93 TA 8 BL ET NO 00 11 01 01 10 30 RI 75 MC Ac VO 16 -0 -3 .0 TE 72 KE ti LI 91 8- 0- 00 90 [place] ve N 83 20 20 AI E 70 71 08 09 D JR -3 1 PH 0 AR WI 10 M LL 0 #3 IA UN 93 M IT 8 F /M L AL 00 01 01 00 40 20 RI 76 AR Ac 09 -1 -3 .0 TE 62 NO ti 30 0- 0- 00 87 LD ve 54 20 20 AI 20 09 09 D RI 1 PH CH AR AR M D #3 W 93 8 60 01 01 00 18 7 RI 76 AR Ac 25 -1 -3 0. TE 62 NO ti 80 0- 0- 00 89 LD ve 23 20 20 0 AI 91 09 09 D RI 6 PH CH AR AR M D #3 W 93 8 AM 00 01 01 00 30 10 RI 76 AR Ac OX 09 -1 -3 .0 TE 62 NO ti IC 33 0- 0- 00 86 LD ve IL 10 20 20 AI LI 90 09 09 D RI N 5 PH CH 50 AR AR 0 M D MG #3 W 93 CA 8 PS UL E GL 00 07 01 05 30 30 RI 74 AR Ac YB 09 -1 -3 .0 TE 16 NO ti UR 39 6- 0- 00 15 LD ve ID 36 20 20 AI E 41 08 09 D RI 5 0 PH CH MG AR AR M D TA #3 W BL 93 ET 8 00 10 01 01 60 30 RI 75 OC Ac 04 -1 -1 .0 TE 43 ON ti 50 7- 5- 00 58 NE ve 64 20 20 AI LL 06 08 09 D 5 PH TATO AR HN M #3 93 8 DE 00 12 01 00 30 30 RI 76 AR Ac TR 00 -3 -1 .0 TE 46 NO ti OL 95 0- 5- 00 01 LD ve 19 20 20 AI LA 10 08 09 D RI 4 1 PH CH AR AR MG M D #3 W CA 93 PS 8 UL E CL 00 12 01 00 60 30 RI 76 AR Ac ON 09 -3 -1 .0 TE 45 NO ti AZ 30 0- 5- 00 30 LD ve EP 83 20 20 AI AM 20 08 09 D RI 1 PH CH 0. AR AR 5 M D MG #3 W 93 TA 8 BL ET 00 12 01 00 90 30 RI 76 RI Ac 09 -2 -1 .0 TE 52 TE ti 34 2- 5- 00 21 ve 35 20 20 AI AI 60 08 09 D D 1 PH PH AR AR M MA #3 CY 93 8 #3 93 8 BA 00 10 01 01 60 30 RI 75 OC Ac CL 17 -1 -1 .0 TE 43 ON ti OF 24 7- 5- 00 59 NE ve EN 09 20 20 AI LL 66 08 09 D 10 0 PH TATO AR HN MG M #3 TA 93 BL 8 ET 00 12 01 00 60 30 RI 76 AR Ac 09 -3 -1 .0 TE 45 NO ti 35 0- 5- 00 99 LD ve 50 20 20 AI 20 08 09 D RI 1 PH CH AR AR M D #3 W 93 8 00 12 01 00 30 30 RI 76 RI Ac 09 -2 -1 .0 TE 52 TE ti 37 2- 5- 00 20 ve 24 20 20 AI AI 20 08 09 D D 6 PH PH AR AR M MA #3 CY 93 8 #3 93 8 BI 00 03 01 03 30 30 RI 72 MC Ac SO 37 -0 -0 .0 TE 32 KE ti IN 80 6- 1- 00 28 [place] ve OL 52 20 20 AI E OL 39 08 09 D JR 3 PH FU AR WI MA M LL RA #3 IA TE 93 M 5 8 F MG TA B 00 06 01 00 30 30 RI 76 OC Ac 09 -2 -0 .0 TE 24 ON ti 37 5- 1- 00 70 NE ve 15 20 20 AI LL 55 08 09 D 6 PH TATO AR HN M #3 93 8 IN 00 09 01 01 40 20 RI 74 AR Ac OC 09 -1 -0 .0 TE 92 NO ti HL 39 1- 1- 00 87 LD ve OR 65 20 20 AI PE 20 08 09 D RI RA 1 PH CH ZI AR AR NE M D #3 W 10 93 8 MG TA B LE 00 07 01 05 30 30 RI 74 AR Ac VO 37 -1 -0 .0 TE 16 NO ti TH 81 6- 1- 00 14 LD ve YR 80 20 20 AI OX 50 08 09 D RI IN 1 PH CH E AR AR 75 M D #3 W MC 93 G 8 TA BL ET LO 00 06 01 02 30 30 RI 75 AR Ac RA 78 -1 -0 .0 TE 32 NO ti TA 15 9- 1- 00 00 LD ve DI 07 20 20 AI NE 70 08 09 D RI 1 PH CH 10 AR AR M D MG #3 W 93 TA 8 BL ET GL 00 07 01 04 30 30 RI 74 AR Ac YB 09 -1 -0 .0 TE 16 NO ti UR 39 6- 1- 00 15 LD ve ID 36 20 20 AI E 41 08 09 D RI 5 0 PH CH MG AR AR M D TA #3 W BL 93 ET 8 00 11 12 00 90 30 RI 76 No Ac 09 -2 -1 .0 TE 04 t ti 31 4- 8- 00 06 Av ve 04 20 20 AI ai 30 08 08 D la 1 PH bl AR e M #3 93 8 LE 00 07 12 04 30 30 RI 74 AR Ac VO 37 -1 -1 .0 TE 16 NO ti TH 81 6- 8- 00 14 LD ve YR 80 20 20 AI OX 50 08 08 D RI IN 1 PH CH E AR AR 75 M D #3 W MC 93 G 8 TA BL ET 00 12 12 00 15 15 RI 76 No Ac 09 -0 -1 .0 TE 04 t ti 37 1- 8- 00 07 Av ve 24 20 20 AI ai 20 08 08 D la 6 PH bl AR e M #3 93 8 CL 00 06 12 05 60 30 RI 73 AR Ac ON 09 -0 -1 .0 TE 62 NO ti AZ 30 5- 8- 00 67 LD ve EP 83 20 20 AI AM 20 08 08 D RI 1 PH CH 0. AR AR 5 M D MG #3 W 93 TA 8 BL ET NA 00 12 12 00 60 30 RI 76 AR Ac IN 09 -1 -1 .0 TE 18 NO ti OX 30 0- 8- 00 98 LD ve EN 14 20 20 AI 90 08 08 D RI 50 1 PH CH 0 AR AR MG M D #3 W TA 93 BL 8 ET 37 11 12 00 28 28 RI 75 HAYDEN Ac 00 -2 -0 .0 TE 89 SC ti 00 0- 4- 00 59 H ve 05 20 20 AI AN 84 08 08 D TO 5 PH NI AR O M #3 93 8 LE 00 07 11 03 30 30 RI 74 AR Ac VO 37 -1 -2 .0 TE 16 NO ti TH 81 6- 0- 00 14 LD ve YR 80 20 20 AI OX 50 08 08 D RI IN 1 PH CH E AR AR 75 M D #3 W MC 93 G 8 TA BL ET 00 11 11 00 90 30 RI 75 AR Ac 09 -0 -2 .0 TE 63 NO ti 31 2- 0- 00 10 LD ve 04 20 20 AI 30 08 08 D RI 1 PH CH AR AR M D #3 W 93 8 NO 00 11 11 00 10 30 RI 75 MC Ac VO 16 -0 -2 .0 TE 72 KE ti LI 91 8- 0- 00 90 [place] ve N 83 20 20 AI E 70 71 08 08 D JR -3 1 PH 0 AR WI 10 M LL 0 #3 IA UN 93 M IT 8 F /M L AL LO 00 06 11 01 30 30 RI 75 AR Ac RA 78 -1 -2 .0 TE 32 NO ti TA 15 9- 0- 00 00 LD ve DI 07 20 20 AI NE 70 08 08 D RI 1 PH CH 10 AR AR M D MG #3 W 93 TA 8 BL ET GL 00 07 11 03 30 30 RI 74 AR Ac YB 09 -1 -2 .0 TE 16 NO ti UR 39 6- 0- 00 15 LD ve ID 36 20 20 AI E 41 08 08 D RI 5 0 PH CH MG AR AR M D TA #3 W BL 93 ET 8 CL 00 06 11 04 60 30 RI 73 AR Ac ON 09 -0 -2 .0 TE 62 NO ti AZ 30 5- 0- 00 67 LD ve EP 83 20 20 AI AM 20 08 08 D RI 1 PH CH 0. AR AR 5 M D MG #3 W 93 TA 8 BL ET ME 00 11 11 00 21 6 RI 75 AR Ac TH 60 -0 -2 .0 TE 63 NO ti YL 34 2- 0- 00 11 LD ve IN 59 20 20 AI ED 31 08 08 D RI NI 5 PH CH SO AR AR LO M D NE #3 W 4 93 8 MG DO SE PK LA 00 07 11 02 20 28 RI 74 AR Ac NT 08 -1 -2 .0 TE 16 NO ti US 82 6- 0- 00 17 LD ve 22 20 20 AI 10 03 08 08 D RI 0 3 PH CH UN AR AR IT M D S/ #3 W ML 93 8 AL BI 00 03 11 02 30 30 RI 72 MC Ac SO 37 -0 -2 .0 TE 32 KE ti IN 80 6- 0- 00 28 [place] ve OL 52 20 20 AI E OL 39 08 08 D JR 3 PH FU AR WI MA M LL RA #3 IA TE 93 M 5 8 F MG TA B LO 00 06 10 00 30 30 RI 75 AR Ac RA 78 -1 -2 .0 TE 32 NO ti TA 15 9- 3- 00 00 LD ve DI 07 20 20 AI NE 70 08 08 D RI 1 PH CH 10 AR AR M D MG #3 W 93 TA 8 BL ET 00 10 10 00 60 30 RI 75 OC Ac 04 -1 -2 .0 TE 43 ON ti 50 7- 3- 00 58 NE ve 64 20 20 AI LL 06 08 08 D 5 PH TATO AR HN M #3 93 8 00 06 10 02 30 30 RI 73 No Ac 09 -2 -2 .0 TE 90 t ti 37 5- 3- 00 75 Av ve 15 20 20 AI ai 55 08 08 D la 6 PH bl AR e M #3 93 8 BA 00 10 10 00 60 30 RI 75 OC Ac CL 17 -1 -2 .0 TE 43 ON ti OF 24 7- 3- 00 59 NE ve EN 09 20 20 AI LL 66 08 08 D 10 0 PH TATO AR HN MG M #3 TA 93 BL 8 ET CI 00 09 10 00 20 10 RI 75 AR Ac IN 17 -2 -0 .0 TE 17 NO ti OF 25 9- 9- 00 31 LD ve LO 31 20 20 AI XA 26 08 08 D RI CI 0 PH CH N AR AR HC M D L #3 W 50 93 0 8 MG TA B BU 00 09 10 00 60 15 RI 75 AR Ac TA 60 -2 -0 .0 TE 08 NO ti LB 32 2- 9- 00 04 LD ve -A 54 20 20 AI CE 42 08 08 D RI TA 1 PH CH WY AR AR N- M D CA #3 W FF 93 8 50 -3 25 -4 0 00 08 10 00 90 30 RI 75 No Ac 09 -2 -0 .0 TE 08 t ti 31 8- 9- 00 05 Av ve 04 20 20 AI ai 30 08 08 D la 1 PH bl AR e M #3 93 8 GL 00 07 10 02 30 30 RI 74 AR Ac YB 09 -1 -0 .0 TE 16 NO ti UR 39 6- 9- 00 15 LD ve ID 36 20 20 AI E 41 08 08 D RI 5 0 PH CH MG AR AR M D TA #3 W BL 93 ET 8 LE 00 07 10 02 30 30 RI 74 AR Ac VO 37 -1 -0 .0 TE 16 NO ti TH 81 6- 9- 00 14 LD ve YR 80 20 20 AI OX 50 08 08 D RI IN 1 PH CH E AR AR 75 M D #3 W MC 93 G 8 TA BL ET CL 00 06 10 03 60 30 RI 73 AR Ac ON 09 -0 -0 .0 TE 62 NO ti AZ 30 5- 9- 00 67 LD ve EP 83 20 20 AI AM 20 08 08 D RI 1 PH CH 0. AR AR 5 M D MG #3 W 93 TA 8 BL ET TR 00 09 09 00 40 8 RI 74 AR Ac AM 09 -1 -2 .0 TE 92 NO ti AD 30 1- 6- 00 88 LD ve OL 05 20 20 AI 80 08 08 D RI HC 1 PH CH L AR AR 50 M D #3 W MG 93 8 TA BL ET IN 00 09 09 00 40 20 RI 74 AR Ac OC 09 -1 -2 .0 TE 92 NO ti HL 39 1- 6- 00 87 LD ve OR 65 20 20 AI PE 20 08 08 D RI RA 1 PH CH ZI AR AR NE M D #3 W 10 93 8 MG TA B IN 37 09 09 00 28 28 RI 74 AR Ac IL 00 -1 -2 .0 TE 92 NO ti OS 00 1- 6- 00 85 LD ve EC 45 20 20 AI 50 08 08 D RI OT 2 PH CH C AR AR 20 M D .6 #3 W 93 MG 8 TA BL ET GL 00 07 09 01 30 30 RI 74 AR Ac YB 09 -1 -1 .0 TE 16 NO ti UR 39 6- 1- 00 15 LD ve ID 36 20 20 AI E 41 08 08 D RI 5 0 PH CH MG AR AR M D TA #3 W BL 93 ET 8 DE 00 07 09 01 30 30 RI 74 AR Ac TR 00 -2 -1 .0 TE 23 NO ti OL 95 2- 1- 00 61 LD ve 19 20 20 AI LA 10 08 08 D RI 4 1 PH CH AR AR MG M D #3 W CA 93 PS 8 UL E HY 68 06 09 00 12 30 RI [address] 46 -2 -1 0. TE 83 t ti OX 20 6- 1- 00 75 Av ve YZ 36 20 20 0 AI ai IN 20 08 08 D la E 1 PH bl HC AR e L M 50 #3 93 MG 8 TA BL ET CL 00 06 09 02 60 30 RI 73 AR Ac ON 09 -0 -1 .0 TE 62 NO ti AZ 30 5- 1- 00 67 LD ve EP 83 20 20 AI AM 20 08 08 D RI 1 PH CH 0. AR AR 5 M D MG #3 W 93 TA 8 BL ET 00 06 09 01 30 30 RI 73 No Ac 09 -2 -1 .0 TE 90 t ti 37 5- 1- 00 75 Av ve 15 20 20 AI ai 55 08 08 D la 6 PH bl AR e M #3 93 8 NO 00 12 09 04 10 30 RI 70 MC Ac VO 16 -0 -1 .0 TE 85 KE ti LI 91 1- 1- 00 61 [place] ve N 83 20 20 AI E 70 71 07 08 D JR -3 1 PH 0 AR WI 10 M LL 0 #3 IA UN 93 M IT 8 F /M L AL ME 00 09 09 00 21 6 RI 74 AR Ac TH 60 -0 -1 .0 TE 83 NO ti YL 34 4- 1- 00 10 LD ve IN 59 20 20 AI ED 31 08 08 D RI NI 5 PH CH SO AR AR LO M D NE #3 W 4 93 8 MG DO SE PK LA 00 07 09 01 20 28 RI 74 AR Ac NT 08 -1 -1 .0 TE 16 NO ti US 82 6- 1- 00 17 LD ve 22 20 20 AI 10 03 08 08 D RI 0 3 PH CH UN AR AR IT M D S/ #3 W ML 93 8 AL LE 00 07 09 01 30 30 RI 74 AR Ac VO 37 -1 -1 .0 TE 16 NO ti TH 81 6- 1- 00 14 LD ve YR 80 20 20 AI OX 50 08 08 D RI IN 1 PH CH E AR AR 75 M D #3 W MC 93 G 8 TA BL ET AM 00 09 09 00 30 10 RI 74 AR Ac OX 09 -0 -1 .0 TE 83 NO ti IC 33 4- 1- 00 11 LD ve IL 10 20 20 AI LI 90 08 08 D RI N 5 PH CH 50 AR AR 0 M D MG #3 W 93 CA 8 PS UL E CL 00 06 08 02 60 30 RI 73 AR Ac ON 09 -0 -2 .0 TE 62 NO ti AZ 30 5- 8- 00 67 LD ve EP 83 20 20 AI AM 20 08 08 D RI 1 PH CH 0. AR AR 5 M D MG #3 W 93 TA 8 BL ET LE 00 07 08 01 30 30 RI 74 AR Ac VO 37 -1 -2 .0 TE 16 NO ti TH 81 6- 8- 00 14 LD ve YR 80 20 20 AI OX 50 08 08 D RI IN 1 PH CH E AR AR 75 M D #3 W MC 93 G 8 TA BL ET GL 00 07 08 01 30 30 RI 74 AR Ac YB 09 -1 -2 .0 TE 16 NO ti UR 39 6- 8- 00 15 LD ve ID 36 20 20 AI E 41 08 08 D RI 5 0 PH CH MG AR AR M D TA #3 W BL 93 ET 8 00 06 08 01 30 30 RI 73 No Ac 09 -2 -2 .0 TE 90 t ti 37 5- 8- 00 75 Av ve 15 20 20 AI ai 55 08 08 D la 6 PH bl AR e M #3 93 8 LO 00 06 08 02 30 30 RI 73 AR Ac RA 78 -1 -2 .0 TE 79 NO ti TA 15 9- 8- 00 67 LD ve DI 07 20 20 AI NE 70 08 08 D RI 1 PH CH 10 AR AR M D MG #3 W 93 TA 8 BL ET NO 00 12 08 04 10 30 RI 70 MC Ac VO 16 -0 -2 .0 TE 85 KE ti LI 91 1- 8- 00 61 [place] ve N 83 20 20 AI E 70 71 07 08 D JR -3 1 PH 0 AR WI 10 M LL 0 #3 IA UN 93 M IT 8 F /M L AL LA 00 07 08 00 20 28 RI 74 AR Ac NT 08 -1 -0 .0 TE 16 NO ti US 82 6- 1- 00 17 LD ve 22 20 20 AI 10 03 08 08 D RI 0 3 PH CH UN AR AR IT M D S/ #3 W ML 93 8 AL DE 00 07 08 00 30 30 RI 74 AR Ac TR 00 -2 -0 .0 TE 23 NO ti OL 95 2- 1- 00 61 LD ve 19 20 20 AI LA 10 08 08 D RI 4 1 PH CH AR AR MG M D #3 W CA 93 PS 8 UL E HY 00 07 08 00 12 30 RI [address] 60 -2 -0 0. TE 28 t ti OX 33 4- 1- 00 11 Av ve YZ 96 20 20 0 AI ai IN 92 08 08 D la E 1 PH bl HC AR e L M 50 #3 93 MG 8 TA BL ET LO 00 06 08 01 30 30 RI 73 AR Ac RA 78 -1 -0 .0 TE 79 NO ti TA 15 9- 1- 00 67 LD ve DI 07 20 20 AI NE 70 08 08 D RI 1 PH CH 10 AR AR M D MG #3 W 93 TA 8 BL ET TR 50 07 08 00 30 30 RI 74 No Ac AZ 11 -2 -0 .0 TE 28 t ti OD 10 4- 1- 00 12 Av ve ON 43 20 20 AI ai E 40 08 08 D la 10 1 PH bl 0 AR e MG M #3 TA 93 BL 8 ET LE 00 07 08 00 30 30 RI 74 AR Ac VO 37 -1 -0 .0 TE 16 NO ti TH 81 6- 1- 00 14 LD ve YR 80 20 20 AI OX 50 08 08 D RI IN 1 PH CH E AR AR 75 M D #3 W MC 93 G 8 TA BL ET 00 07 08 00 30 30 RI 74 No Ac 09 -2 -0 .0 TE 28 t ti 37 4- 1- 00 08 Av ve 24 20 20 AI ai 20 08 08 D la 6 PH bl AR e M #3 93 8 00 07 08 00 90 30 RI 74 No Ac 09 -2 -0 .0 TE 28 t ti 31 4- 1- 00 10 Av ve 04 20 20 AI ai 30 08 08 D la 1 PH bl AR e M #3 93 8 GL 00 07 08 00 30 30 RI 74 AR Ac YB 09 -1 -0 .0 TE 16 NO ti UR 39 6- 1- 00 15 LD ve ID 36 20 20 AI E 41 08 08 D RI 5 0 PH CH MG AR AR M D TA #3 W BL 93 ET 8 CL 00 06 07 01 60 30 RI 73 AR Ac ON 09 -0 -1 .0 TE 62 NO ti AZ 30 5- 7- 00 67 LD ve EP 83 20 20 AI AM 20 08 08 D RI 1 PH CH 0. AR AR 5 M D MG #3 W 93 TA 8 BL ET NO 00 12 07 03 10 30 RI 70 MC Ac VO 16 -0 -1 .0 TE 85 KE ti LI 91 1- 7- 00 61 [place] ve N 83 20 20 AI E 70 71 07 08 D JR -3 1 PH 0 AR WI 10 M LL 0 #3 IA UN 93 M IT 8 F /M L AL 00 06 07 00 30 30 RI 73 No Ac 09 -2 -0 .0 TE 90 t ti 37 5- 3- 00 75 Av ve 15 20 20 AI ai 55 08 08 D la 6 PH bl AR e M #3 93 8 HY 00 06 07 00 12 30 RI [address] 60 -2 -0 0. TE 90 t ti OX 33 6- 3- 00 73 Av ve YZ 96 20 20 0 AI ai IN 92 08 08 D la E 1 PH bl HC AR e L M 50 #3 93 MG 8 TA BL ET TR 50 06 07 00 30 30 RI 73 No Ac AZ 11 -2 -0 .0 TE 90 t ti OD 10 6- 3- 00 71 Av ve ON 43 20 20 AI ai E 40 08 08 D la 10 1 PH bl 0 AR e MG M #3 TA 93 BL 8 ET DU 49 04 07 02 18 30 PU 18 No Ac ON 50 -2 -0 0. LM 03 t ti EB 20 1- 3- 00 O 39 Av ve 67 20 20 0 DO 9 ai 0. 26 08 08 SE la 5 0 bl MG PH e -3 AR MA MG CY /3 ML SO LN AZ 59 06 07 00 6. 5 RI 73 AR Ac IT 76 -1 -0 00 TE 79 NO ti HR 23 9- 3- 0 66 LD ve OM 06 20 20 AI YC 00 08 08 D RI IN 1 PH CH AR AR 25 M D 0 #3 W MG 93 8 TA BL ET 00 06 07 00 90 30 RI 73 No Ac 09 -2 -0 .0 TE 90 t ti 31 6- 3- 00 74 Av ve 04 20 20 AI ai 30 08 08 D la 1 PH bl AR e M #3 93 8 LI 00 06 07 00 30 30 RI 73 No Ac SI 37 -2 -0 .0 TE 90 t ti NO 82 5- 3- 00 76 Av ve IN 07 20 20 AI ai IL 20 08 08 D la 1 PH bl 2. AR e 5 M MG #3 93 TA 8 BL ET IN 00 06 07 00 40 10 RI 73 AR Ac OM 60 -1 -0 .0 TE 79 NO ti ET 35 9- 3- 00 68 LD ve GIBBS 43 20 20 AI ZI 82 08 08 D RI NE 1 PH CH AR AR 25 M D #3 W MG 93 8 TA BL ET LO 00 06 07 00 30 30 RI 73 AR Ac RA 78 -1 -0 .0 TE 79 NO ti TA 15 9- 3- 00 67 LD ve DI 07 20 20 AI NE 70 08 08 D RI 1 PH CH 10 AR AR M D MG #3 W 93 TA 8 BL ET RI 50 06 07 00 30 30 RI 73 No Ac SP 45 -2 -0 .0 TE 90 t ti ER 80 6- 3- 00 72 Av ve DA 33 20 20 AI ai L 00 08 08 D la 3 6 PH bl MG AR e M TA #3 BL 93 ET 8 00 06 06 00 5. 5 RI 73 AR Ac 04 -0 -1 00 TE 62 NO ti 51 5- 2- 0 29 LD ve 53 20 20 AI 02 08 08 D RI 0 PH CH AR AR M D #3 W 93 8 CL 00 06 06 00 60 30 RI 73 AR Ac ON 09 -0 -1 .0 TE 62 NO ti AZ 30 5- 2- 00 67 LD ve EP 83 20 20 AI AM 20 08 08 D RI 1 PH CH 0. AR AR 5 M D MG #3 W 93 TA 8 BL ET IO 00 06 06 00 18 9 RI 73 AR Ac PH 60 -0 -1 0. TE 62 NO ti EN 31 5- 2- 00 30 LD ve 33 20 20 0 AI DM 05 08 08 D RI -N 8 PH CH R AR AR LI M D QU #3 W ID 93 8 GL 00 03 06 02 30 30 RI 72 HU Ac YB 09 -0 -1 .0 TE 34 NT ti UR 39 7- 2- 00 51 ER ve ID 36 20 20 AI E 41 08 08 D NA 5 0 PH NC MG AR Y M C TA #3 BL 93 ET 8 LE 00 10 06 05 30 30 RI 70 MC Ac VO 37 -2 -1 .0 TE 29 KE ti TH 81 4- 2- 00 59 [place] ve YR 80 20 20 AI E OX 50 07 08 D JR IN 1 PH E AR WI 75 M LL #3 IA MC 93 M G 8 F TA BL ET TE 00 05 06 00 20 3 RI 73 CL Ac RC 59 -2 -0 .0 TE 41 AR ti ON 13 1- 5- 00 71 KE ve AZ 19 20 20 AI OL 75 08 08 D DE E 2 PH RE 0. AR K 8% M J #3 CR 93 EA 8 M HY 00 05 06 00 12 30 RI [address] 18 -2 -0 0. TE 44 t ti OX 50 2- 5- 00 36 Av ve YZ 61 20 20 0 AI ai IN 50 08 08 D la E 1 PH bl PA AR e M M 50 #3 93 MG 8 CA P 60 05 06 00 24 6 RI 73 AR Ac 25 -2 -0 0. TE 49 NO ti 80 7- 5- 00 32 LD ve 23 20 20 0 AI 91 08 08 D RI 6 PH CH AR AR M D #3 W 93 8 RI 50 05 06 00 30 30 RI 73 No Ac SP 45 -2 -0 .0 TE 44 t ti ER 80 2- 5- 00 37 Av ve DA 33 20 20 AI ai L 00 08 08 D la 3 6 PH bl MG AR e M TA #3 BL 93 ET 8 00 05 06 00 90 30 RI 73 No Ac 09 -2 -0 .0 TE 44 t ti 31 2- 5- 00 35 Av ve 04 20 20 AI ai 30 08 08 D la 1 PH bl AR e M #3 93 8 ME 00 05 06 00 21 6 RI 73 AR Ac TH 60 -2 -0 .0 TE 52 NO ti YL 34 9- 5- 00 01 LD ve IN 59 20 20 AI ED 31 08 08 D RI NI 5 PH CH SO AR AR LO M D NE #3 W 4 93 8 MG DO SE PK 17 05 06 00 17 16 RI 73 AR Ac 27 -2 -0 .0 TE 49 NO ti 00 7- 5- 00 31 LD ve 72 20 20 AI 10 08 08 D RI 1 PH CH AR AR M D #3 W 93 8 CE 00 05 06 00 20 10 RI 73 AR Ac FD 09 -2 -0 .0 TE 49 NO ti IN 33 7- 5- 00 30 LD ve IR 16 20 20 AI 00 08 08 D RI 30 6 PH CH 0 AR AR MG M D #3 W CA 93 PS 8 UL E DU 49 04 06 01 18 30 PU 18 No Ac ON 50 -2 -0 0. LM 03 t ti EB 20 1- 5- 00 O 39 Av ve 67 20 20 0 DO 9 ai 0. 26 08 08 SE la 5 0 bl MG PH e -3 AR MA MG CY /3 ML SO LN CL 00 05 05 00 60 30 RI 73 No Ac ON 09 -1 -2 .0 TE 27 t ti AZ 30 0- 2- 00 45 Av ve EP 83 20 20 AI ai AM 20 08 08 D la 1 PH bl 0. AR e 5 M MG #3 93 TA 8 BL ET DU 49 04 05 00 18 30 PU 18 No Ac ON 50 -2 -0 0. LM 03 t ti EB 20 1- 8- 00 O 39 Av ve 67 20 20 0 DO 9 ai 0. 26 08 08 SE la 5 0 bl MG PH e -3 AR MA MG CY /3 ML SO LN FL 00 05 05 00 30 30 WA 69 No Ac UO 09 -0 -0 .0 L- 70 t ti XE 37 1- 8- 00 MA 26 Av ve TI 19 20 20 RT 3 ai NE 85 08 08 la 6 PH bl HC AR e L MA 40 CY MG #5 91 CA PS UL E 00 05 05 00 30 30 WA 69 No Ac 55 -0 -0 .0 L- 70 t ti 50 1- 8- 00 MA 26 Av ve 87 20 20 RT 5 ai 70 08 08 la 2 PH bl AR e MA CY #5 91 GL 00 03 05 01 30 30 RI 72 No Ac YB 09 -0 -0 .0 TE 34 t ti UR 39 7- 8- 00 51 Av ve ID 36 20 20 AI ai E 41 08 08 D la 5 0 PH bl MG AR e M TA #3 BL 93 ET 8 CY 00 03 05 02 1. 7 CL 16 No Ac AN 51 -2 -0 00 IN 78 t ti OC 70 8- 8- 0 IC 79 Av ve OB 03 20 20 ai AL 12 08 08 PH la AM 5 AR bl IN MA e CY 1, 00 0 MC G/ ML RI 50 05 05 00 30 30 WA 69 No Ac SP 45 -0 -0 .0 L- 70 t ti ER 80 1- 8- 00 MA 26 Av ve DA 30 20 20 RT 7 ai L 00 08 08 la 1 6 PH bl MG AR e MA TA CY BL ET #5 91 LE 00 10 05 04 30 30 RI 70 No Ac VO 37 -2 -0 .0 TE 29 t ti TH 81 4- 8- 00 59 Av ve YR 80 20 20 AI ai OX 50 07 08 D la IN 1 PH bl E AR e 75 M #3 MC 93 G 8 TA BL ET 50 05 05 00 12 30 WA 69 No Ac 11 -0 -0 0. L- 70 t ti 10 1- 8- 00 MA 26 Av ve 30 20 20 0 RT 4 ai 90 08 08 la 1 PH bl AR e MA CY #5 91 BI 00 03 05 01 30 30 RI 72 No Ac SO 37 -0 -0 .0 TE 32 t ti IN 80 6- 8- 00 28 Av ve OL 52 20 20 AI ai OL 39 08 08 D la 3 PH bl FU AR e MA M RA #3 TE 93 5 8 MG TA B NO 00 12 05 02 10 30 RI 70 No Ac VO 16 -0 -0 .0 TE 85 t ti LI 91 1- 8- 00 61 Av ve N 83 20 20 AI ai 70 71 07 08 D la -3 1 PH bl 0 AR e 10 M 0 #3 UN 93 IT 8 /M L AL CI 00 04 04 00 20 10 RI 72 No Ac IN 17 -1 -2 .0 TE 89 t ti OF 25 4- 4- 00 61 Av ve LO 31 20 20 AI ai XA 16 08 08 D la CI 0 PH bl N AR e HC M L #3 25 93 0 8 MG TA B CL 00 04 04 00 60 30 RI 72 No Ac ON 09 -0 -2 .0 TE 76 t ti AZ 30 5- 4- 00 83 Av ve EP 83 20 20 AI ai AM 20 08 08 D la 1 PH bl 0. AR e 5 M MG #3 93 TA 8 BL ET FL 00 04 04 00 30 30 RI 72 No Ac UO 09 -0 -2 .0 TE 77 t ti XE 37 5- 4- 00 33 Av ve TI 19 20 20 AI ai NE 85 08 08 D la 6 PH bl HC AR e L M 40 #3 93 MG 8 CA PS UL E RI 50 04 04 00 30 30 RI 72 No Ac SP 45 -0 -2 .0 TE 77 t ti ER 80 5- 4- 00 32 Av ve DA 33 20 20 AI ai L 00 08 08 D la 3 6 PH bl MG AR e M TA #3 BL 93 ET 8 HY 00 04 04 00 12 30 RI [address] 18 -0 -2 0. TE 77 t ti OX 50 5- 4- 00 30 Av ve YZ 61 20 20 0 AI ai IN 50 08 08 D la E 1 PH bl PA AR e M M 50 #3 93 MG 8 CA P CY 00 03 04 01 1. 7 CL 16 No Ac AN 51 -2 -2 00 IN 78 t ti OC 70 8- 4- 0 IC 79 Av ve OB 03 20 20 ai AL 12 08 08 PH la AM 5 AR bl IN MA e CY 1, 00 0 MC G/ ML TR 00 03 04 00 8. 2 RI 72 No Ac AM 09 -1 -1 00 TE 50 t ti AD 30 8- 7- 0 40 Av ve OL 05 20 20 AI ai 80 08 08 D la HC 1 PH bl L AR e 50 M #3 MG 93 8 TA BL ET CE 00 03 04 00 28 7 RI 72 No Ac PH 09 -1 -1 .0 TE 50 t ti AL 33 8- 7- 00 42 Av ve EX 14 20 20 AI ai IN 70 08 08 D la 1 PH bl 50 AR e 0 M MG #3 93 CA 8 PS UL E CY 00 03 04 00 1. 7 CL 16 No Ac AN 51 -1 -1 00 IN 67 t ti OC 70 1- 7- 0 IC 31 Av ve OB 03 20 20 ai AL 12 08 08 PH la AM 5 AR bl IN MA e CY 1, 00 0 MC G/ ML CY 00 03 04 00 1. 7 CL 16 No Ac AN 51 -2 -1 00 IN 78 t ti OC 70 8- 0- 0 IC 79 Av ve OB 03 20 20 ai AL 12 08 08 PH la AM 5 AR bl IN MA e CY 1, 00 0 MC G/ ML BI 00 03 04 00 30 30 RI 72 No Ac SO 37 -0 -0 .0 TE 32 t ti IN 80 6- 7- 00 28 Av ve OL 52 20 20 AI ai OL 39 08 08 D la 3 PH bl FU AR e MA M RA #3 TE 93 5 8 MG TA B GL 00 03 04 00 30 30 RI 72 No Ac YB 09 -0 -0 .0 TE 34 t ti UR 39 7- 7- 00 51 Av ve ID 36 20 20 AI ai E 41 08 08 D la 5 0 PH bl MG AR e M TA #3 BL 93 ET 8 FL 00 02 04 00 30 30 RI 72 No Ac UO 09 -2 -0 .0 TE 31 t ti XE 37 9- 7- 00 18 Av ve TI 19 20 20 AI ai NE 85 08 08 D la 6 PH bl HC AR e L M 40 #3 93 MG 8 CA PS UL E HY 00 02 04 00 12 30 RI [address] 18 -2 -0 0. TE 31 t ti OX 50 9- 7- 00 17 Av ve YZ 61 20 20 0 AI ai IN 50 08 08 D la E 1 PH bl PA AR e M M 50 #3 93 MG 8 CA P LE 00 10 04 03 30 30 RI 70 No Ac VO 37 -2 -0 .0 TE 29 t ti TH 81 4- 7- 00 59 Av ve YR 80 20 20 AI ai OX 50 07 08 D la IN 1 PH bl E AR e 75 M #3 MC 93 G 8 TA BL ET TI 55 02 04 00 60 30 RI 72 No Ac ZA 11 -0 -0 .0 TE 17 t ti NI 10 8- 7- 00 71 Av ve DI 17 20 20 AI ai NE 91 08 08 D la 5 PH bl HC AR e L M 2 #3 MG 93 8 TA BL ET RI 50 02 04 00 30 30 RI 72 No Ac SP 45 -2 -0 .0 TE 31 t ti ER 80 9- 7- 00 19 Av ve DA 30 20 20 AI ai L 00 08 08 D la 1 6 PH bl MG AR e M TA #3 BL 93 ET 8 NO 00 12 04 01 10 30 RI 70 No Ac VO 16 -0 -0 .0 TE 85 t ti LI 91 1- 7- 00 61 Av ve N 83 20 20 AI ai 70 71 07 08 D la -3 1 PH bl 0 AR e 10 M 0 #3 UN 93 IT 8 /M L AL RI 50 01 03 00 30 30 RI 71 No Ac SP 45 -3 -2 .0 TE 81 t ti ER 80 1- 6- 00 37 Av ve DA 33 20 20 AI ai L 00 08 08 D la 3 6 PH bl MG AR e M TA #3 BL 93 ET 8 HY 00 01 03 00 12 30 RI [address] 18 -3 -2 0. TE 81 t ti OX 50 1- 6- 00 35 Av ve YZ 61 20 20 0 AI ai IN 50 08 08 D la E 1 PH bl PA AR e M M 50 #3 93 MG 8 CA P NA 00 02 03 00 60 30 RI 71 No Ac BU 09 -1 -2 .0 TE 99 t ti ME 31 4- 6- 00 86 Av ve TO 01 20 20 AI ai NE 60 08 08 D la 1 PH bl 75 AR e 0 M MG #3 93 TA 8 BL ET CL 00 02 03 00 60 30 RI 71 No Ac ON 09 -0 -2 .0 TE 86 t ti AZ 30 5- 6- 00 42 Av ve EP 83 20 20 AI ai AM 20 08 08 D la 1 PH bl 0. AR e 5 M MG #3 93 TA 8 BL ET LI 00 10 03 02 30 30 RI 70 No Ac SI 17 -2 -2 .0 TE 29 t ti NO 25 4- 6- 00 61 Av ve IN 03 20 20 AI ai IL 26 07 08 D la -H [address] AR e Z M 20 #3 -2 93 5 8 MG TA B FL 00 12 03 01 30 30 RI 71 No Ac UO 09 -1 -2 .0 TE 04 t ti XE 37 3- 5- 00 39 Av ve TI 19 20 20 AI ai NE 85 07 08 D la 6 PH bl HC AR e L M 40 #3 93 MG 8 CA PS UL E GA 59 01 03 00 90 30 RI 71 No Ac BA 76 -1 -2 .0 TE 55 t ti PE 25 7- 5- 00 04 Av ve NT 02 20 20 AI ai IN 70 08 08 D la 1 PH bl 30 AR e 0 M MG #3 93 CA 8 PS UL E 00 01 03 00 30 5 RI 71 No Ac 17 -2 -2 .0 TE 60 t ti 26 1- 5- 00 69 Av ve 35 20 20 AI ai 96 08 08 D la 0 PH bl AR e M #3 93 8 LA 00 01 03 00 20 30 RI 71 No Ac NT 08 -1 -2 .0 TE 46 t ti US 82 1- 4- 00 17 Av ve 22 20 20 AI ai 10 03 08 08 D la 0 3 PH bl UN AR e IT M S/ #3 ML 93 8 AL SK 60 01 03 00 90 30 RI 71 No Ac EL 79 -1 -2 .0 TE 46 t ti AX 30 1- 4- 00 16 Av ve IN 13 20 20 AI ai 60 08 08 D la 80 1 PH bl 0 AR e MG M #3 TA 93 BL 8 ET ET 60 01 03 00 60 30 RI 71 No Ac OD 50 -1 -2 .0 TE 46 t ti OL 50 1- 4- 00 15 Av ve AC 10 20 20 AI ai 20 08 08 D la 50 1 PH bl 0 AR e MG M #3 TA 93 BL 8 ET LE 00 10 03 02 30 30 RI 70 No Ac VO 37 -2 -2 .0 TE 29 t ti TH 81 4- 4- 00 59 Av ve YR 80 20 20 AI ai OX 50 07 08 D la IN 1 PH bl E AR e 75 M #3 MC 93 G 8 TA BL ET Immunization Name Date Route CVX Reacti Commen Provid Is Given on t er Refuse d HEPATI [place] No TIS A 2014 [facility] HEPA-H EPB ADULT IM HEPATI [place] No TIS A 2013 [facility] E HEPA-H EPB ADULT IM Vital Signs 04-03-2013 21:27 Name Value Interpretat Reference Comment ion Range Body 98.7 [degF] Temperature BP 99 mm[Hg] Diastolic BP Systolic 142 mm[Hg] Heart 88 /min Rate/Pulse O2% 95 % Respiratory 20 /min Rate 04-03-2013 19:01 Name Value Interpretat Reference Comment ion Range BP 110 mm[Hg] Diastolic BP Systolic 150 mm[Hg] Heart 99 /min Rate/Pulse O2% 95 % Respiratory 20 /min Rate Results Labs Lab Lab Date Result Refere Interp Status Commen Order Detail nces retati t Range on COMPREHENSIVE METABOLIC PANEL (04-03-2013 18:10) Glucose 336 74-106 complet 013 mg/dL ed Bld-mCn 18:10 c BUN 10-10-2 10 7-18 complet Bld-mCn 013 mg/dL ed c 18:10 Creat 2 1.0 0.6-1.0 complet SerPl-m 013 mg/dL ed Cnc 18:10 ESTIMAT 10-2 127 50-200 complet ED 013 ML/MIN ed CREATIN 18:10 INE CLEARAN CE GFR 04-03- 58 59- complet (ESTIMA 013 ML/MIN ed ML) 18:10 Sodium 04-03- 138 136-145 complet SerPl-s 013 mmoL/L ed Cnc 18:10 Potassi 3.5 3.5-5.1 complet um 013 mmoL/L ed SerPl-s 18:10 Cnc Chlorid 04-03- 101 98-107 complet e 013 mmoL/L ed SerPl-s 18:10 Cnc CO2 22 21.0-32 complet SerPl-s 013 mmoL/L .0 ed Cnc 18:10 Calcium 9.0 8.5-10. complet 013 mg/dL 1 ed SerPl-m 18:10 Cnc Prot 7.3 6.4-8.2 complet SerPl-m 013 gm/dL ed Cnc 18:10 Albumin 04-03-2 3.6 3.4-5.0 complet 013 gm/dL ed SerPl-m 18:10 Cnc Globuli 04-03- 3.7 1.3-3.2 complet n 013 gm/dL ed Ser-mCn 18:10 c Albumin 04-03-2 1.0 UNK 1.1-1.8 complet /Glob 013 ed SerPl-m 18:10 Rto Bilirub 0.3 0.2-1.0 complet 013 mg/dL ed SerPl-m 18:10 Cnc AST 04-03- 35 U/L 15-37 complet SerPl-c 013 ed Cnc 18:10 ALT 04-03- 81 U/L 30-65 complet SerPl-c 013 ed Cnc 18:10 ALP 04-03- 147 U/L 50-136 complet SerPl-c 013 ed Cnc 18:10 LIPASE (04-03-2013 18:10) LIPASE 04-03- 53 U/L 73-393 complet 013 ed 18:10 CBC with AUTO DIFF (04-03-2013 18:10) WBC # 10-10-2 8.4 4.8-10. complet Bld 013 K/MM3 8 ed Auto 18:10 RBC # 10-10-2 4.82 4.2-5.4 complet Bld 013 M/mm3 ed Auto 18:10 Hgb 10-10-2 14.0 12.2-16 complet Bld-mCn 013 g/dL .2 ed c 18:10 Hct Fr 10-10-2 42.4 % 37.0-47 complet Bld 013 .0 ed 18:10 MCV RBC 10-10-2 87.9 fl 82.2-97 complet 013 .8 ed 18:10 MCH RBC 10-10-2 29.1 pg 27-31.2 complet Qn 013 ed Auto 18:10 MEAN 10-10-2 33.1 31.8-35 complet CORPUSC 013 g/dl .4 ed ULAR 18:10 HGB CONC RDW RBC 10-10-2 14.9 % 11.5-17 complet Auto 013 .5 ed 18:10 Platele 10-10-2 282 142-424 complet t Bld 013 K/mm3 ed Ql 18:10 Manual MEAN 10-10-2 7.3 fl 7.4-10. complet PLATELE 013 4 ed T 18:10 VOLUME Granulo 10-10-2 57.2 % 37.0-80 complet cytes 013 .0 ed Fr Bld 18:10 Auto LYMPH % 10-10-2 32.2 % 10-50.0 complet 013 ed 18:10 Monocyt 10-10-2 4.7 % 1.7-9.3 complet es Fr 013 ed Bld 18:10 Auto Eosinop 10-10-2 4.9 % 0.1-12. complet hil Fr 013 0 ed Bld 18:10 Auto Basophi 10-10-2 0.9 % 0.1-2.0 complet ls Fr 013 ed Bld 18:10 Auto Granulo 10-10-2 4.8 1.8-7.8 complet cytes # 013 K/mm3 ed Bld 18:10 Auto Lymphoc 10-10-2 2.7 0.7-4.5 complet ytes Fr 013 K/mm3 ed Bld 18:10 Auto Monocyt 10-10-2 0.4 0.1-1.0 complet es # 013 K/mm3 ed Bld 18:10 Auto Eosinop 10-10-2 0.4 0.0-0.4 complet hil # 013 K/mm3 ed Bld 18:10 Auto Basophi 10-10-2 0.1 0-0.2 complet ls # 013 K/MM3 ed Bld 18:10 Auto Procedures Procedure DOS Code Location Performer Comment ECG [id number] [facility] ECG INC INC W/LEAST 12 LDS TRCG ONLY W/O I&R CREATINE [id number] [facility]INASE [facility] TOTAL INC INC THER 16003 [facility] PROPH/DX [facility] NJX IV INC INC PUSH SINGLE/1S T SBST/DRUG ECG [id number] [facility] ECG INC INC W/LEAST 12 LDS TRCG ONLY W/O I&R COMPREHEN 69331 [facility] SIVE [facility] METABOLIC INC INC PANEL CREATINE 27785 [facility] KINASE MB [facility] FRACTION INC INC ONLY INJECTION J2405 [facility] OND[facility] INC ON HCL PER 1 MG CULTURE 11917 [facility] BACTERIAL [facility] INC INC QUANTTATI VE COLONY COUNT URINE CULTURE 18841 [facility] BCT [facility] ISOL&PRSM INC INC PTV ID ISOLATE EA URINE THER 13892 [facility] PROPH/DX [facility] NJX EA INC INC SEQL IV PUSH SBST/DRUG FAC RHYTHM 82618 [facility] ECG 1-3 [facility] LEADS [facility] INC TRACING ONLY W/O I&[place] [address] [facility] TROPONIN [facility] QUANTITAT INC INC ANNABELLA BLOOD 42183 [facility] COUNT [facility] COMPLETE INC INC AUTO&AUTO DIFRNTL WBC SUSCEPTIB 52476 [facility] LTY STDY [facility] ANTIMICRB INC INC IAL MICRO/AGA R DILUTJ URNLS DIP 13531 [facility] STICK/TAB INC INC LET REAGENT AUTO MICROSCOP Y RADIOLOGI 50695 [facility] C EXAM [facility] CHEST 2 INC INC VIEWS FRONTAL&L ATERAL THERAPEUT 77810 [facility] IC [facility] INJECTION INC INC IV PUSH EACH NEW DRUG CULTURE 19034 [facility] BACTERIAL [facility] INC INC QUANTTATI VE COLONY COUNT URINE BLOOD 16611 [facility] COUNT 7 [facility] COMPLETE INC INC AUTO&[place] [address] [facility] FREE [facility] [place] [address] [facility] THYROID [facility] STIMULATI INC INC NG HORMONE TSH COLLECTIO 29237 [facility] N VENOUS [facility] [place] [address] [facility] FREE [facility] [place] [address] [facility] THYROID [facility] [place] [address] [facility] TRIIODOTH [facility] YRONINE INC INC T3 FREE OCCUPATIO 99671 [facility] NAL [facility] THERAPY INC INC EVAL LOW COMPLEX 30 MINS APPL 83172 [facility] MODALITY 7 [facility] 1/> AREAS INC INC IONTOPHOR ESIS EA 15 MIN THERAPEUT 20963 [facility] IC PX 1/> 7 [facility] AREAS INC INC EACH 15 MIN EXERCISES [facility] [id number] [facility] H[facility]ITALS ASSESS & MGMT PT IAADIADOO 72682 [facility] INFLUENZA INC INC HOSPITAL G0463 [facility] OUTPATIEN 7 [facility] T CLIN INC INC VISIT ASSESS & MGMT PT IAADIADOO 79379 [facility] STREPTOCO INC INC CCUS GROUP A INJ J0702 [facility] LEXUS BETAMETHA 7 PHYSICIAN DELMAR Oleary GROUP ACETATE & PHOSPHATE 3 MG RADIOLOGI 29996 [facility] [place] SCALF C EXAM 7 RADIOLOGY CHEST 2 VIEWS FRONTAL&L ATERAL AMBULANCE A0429 [facility] SERVICE 7 AMBULANCE AMBULANCE BLS SERVICE SERVICE EMERGENCY TRANSPORT GROUND A0425 [facility] MILEAGE 7 AMBULANCE AMBULANCE [place] [address] [facility] HEAD/BRAI [facility] N W/[place] [address] [facility] CERVICAL [facility] SPINE W/O INC INC CONTRAST MATERIAL RADEX 73449 [facility] 7 MEDICAL COMPLETE IMAGING MINIMUM 3 [place] [address] [facility] LIPASE [facility] INC INC INJECTION J2405 [facility] ONDANSETR INC INC ON HCL PER 1 MG LOCM Q9967 [facility] [phone] [facility] MG/ML INC INC IODINE CONCENTRA TION PER ML CULTURE 70343 [facility] BACTERIAL [facility] INC INC QUANTTATI VE COLONY COUNT URINE CULTURE 24265 [facility]CT [facility] [facility]PRSM INC [place] [address] [facility]ION 7 [facility] THERAPY/P INC INC ROPHYLAXI S /DX 1ST TO 1 HR BLOOD 49243 [facility] COUNT [facility] COMPLETE INC INC AUTO&AUTO DIFRNTL WBC SUSCEPTIB 14386 [facility] LTY STDY 7 [facility] ANTIMICRB INC INC IAL MICRO/AGA R DILUTJ URNLS DIP 87668 [facility] STICK/TAB INC [place] [address] [facility] ABDOMEN & 7 [facility] PELVIS INC INC W/CONTRAS T MATERIAL THERAPEUT 02738 [facility] IC [facility] INJECTION INC INC IV PUSH EACH NEW DRUG COMPREHEN 76745 [facility] SIVE 7 [facility] [address] [facility] AMYLASE 7 [facility] INC INC CULTURE 23323 [facility] BACTERIAL 7 [facility] INC INC QUANTTATI VE COLONY COUNT URINE CULTURE 50810 [facility] BCT 7 [facility] ISOL&PRSM INC INC PTV ID ISOLATE EA URINE SUSCEPTIB 88556 [facility] LTY STDY 7 [facility] ANTIMICRB INC INC IAL MICRO/AGA R DILUTJ ALBUTEROL J7613 YOUR YOUR INHAL 7 PHARMACY PHARMACY NON-CP [employer] [facility] PROD THRU DME U DOSE 1 MG INJECTION J2405 [facility] ONDANSETR INC INC ON HCL PER 1 MG ADMN SET A7003 YOUR YOUR SM VOL 7 PHARMACY PHARMACY NONFILTR [employer] [facility] PNEUMAT NEBULIZR DISPBL THERAPEUT 94082 [facility] IC [facility] PROPHYLAC INC INC TIC/DX INJECTION SUBQ/IM PHRM Q0513 YOUR YOUR DISPENSIN 7 PHARMACY PHARMACY G FEE [employer] [facility] INHALATIO N RX; PER 30 DAYS OVA&NOEL 56828 [facility] ITES 7 [facility] DIRECT INC INC SMEARS CONCENTRA TION & ID LACTOFERR 64909 [facility] IN FECAL 7 [facility] QUALITATI INC INC VE IADNA-DNA 80935 [facility] /RNA GI [facility] PTHGN INC INC MULTIPLEX PROBE TQ 12- CREATINE 41688 [facility] KINASE [facility] TOTAL INC INC ECG 46422 [facility] ROUTINE 7 [facility] ECG INC INC W/LEAST 12 LDS TRCG ONLY W/O I&R RADIOLOGI 05913 [facility] EXAM 7 MEDICAL CHEST 2 IMAGING VIEWS ASS FRONTAL&L ATERAL APPLICATI 95275 [facility] ON 7 [facility] MODALITY INC INC 1/> AREAS HOT/COLD PACKS APPL 96754 [facility] MODALITY 7 [facility] 1/> AREAS INC INC ULTRASOUN D EA 15 MIN ECG 55172 [facility] SINGH ROUTINE 7 PHYSICIAN ECG S, PLLC W/LEAST 12 LDS I&R ONLY E-STIM G0283 [facility] 1/> AREAS 7 [facility] OTH THAN INC INC WND CARE PART TX PLAN COMPREHEN 75513 [facility] SIVE 7 [facility] METABOLIC INC INC PANEL CREATINE 06325 [facility] KINASE MB 7 [facility] FRACTION INC INC ONLY BLOOD 92145 [facility] COUNT 7 [facility] COMPLETE INC INC AUTO&[place] [address] [facility] TROPONIN 7 [facility] QUANTITAT INC INC ANNABELLA APPL 89837 [facility] MODALITY 7 [facility] 1/> AREAS INC INC ULTRASOUN D EA 15 MIN APPLICATI 14901 [facility] ON 7 [facility] MODALITY INC INC 1/> AREAS HOT/COLD PACKS E-STIM G0283 [facility] 1/> AREAS 7 [facility] OTH THAN INC INC WND CARE PART TX PLAN ECG 98352 [facility] ROUTINE 7 [facility] ECG INC INC W/LEAST 12 LDS TRCG ONLY W/O I&R ECG 70903 [facility] PEDROZA ROUTINE 7 PHYSICIAN ECG S, PLLC W/LEAST 12 LDS I&R ONLY CREATINE 92749 [facility] KINASE 7 [facility] TOTAL INC INC ECG 93247 [facility] ROUTINE 7 [facility] ECG INC INC W/LEAST 12 LDS TRCG ONLY W/O I&R DRUG TEST G0480 [facility] DEFINITV [address] [facility] [address] [address] ID INC INC METH P DAY 1-7 DRUG CL COMPREHEN 49364 [facility] SIVE 7 [facility] METABOLIC INC INC PANEL CREATINE 40592 [facility] KINASE MB 7 [facility] [place] [address] [facility] FREE 7 [facility] [place] [address] [facility] THYROID 7 [facility] STIMULATI INC INC NG HORMONE TSH DRUG TEST 21544 [facility] PRSMV 7 [facility] INSTRMNT INC INC CHEMISTRY ANALYZERS CULTURE 19284 [facility] BACTERIAL 7 [facility] INC INC QUANTTATI VE COLONY COUNT URINE CULTURE 65673 [facility] BCT 7 [facility] ISOL&PRSM INC INC PTV ID ISOLATE EA URINE BLOOD 55836 [facility] GASES ANY 7 [facility] INC INC COMBINATI ON PH PCO2 PO2 CO2 HCO3 BLOOD 37179 [facility] COUNT 7 [facility] COMPLETE INC INC AUTO&AUTO DIFRNTL WBC SUSCEPTIB 92653 [facility] LTY STDY 7 [facility] ANTIMICRB INC INC IAL MICRO/AGA R DILUTJ URNLS DIP 88708 [facility] STICK/TAB INC INC [place] [address] [facility] TROPONIN 7 [facility] QUANTITAT INC INC ANNABELLA DRUG TEST G0481 [facility] R[facility]AGO[facility] DEFINITV [address] [address] ID INC INC METH P DAY 8-14 DRUG CL APPLICATI 70046 [facility] ON 7 [facility] MODALITY INC INC 1/> AREAS HOT/COLD PACKS APPL 40979 [facility] MODALITY 7 [facility] 1/> AREAS INC INC ULTRASOUN D EA 15 MIN E-STIM G0283 [facility] 1/> AREAS 7 [facility] OTH THAN INC INC WND CARE PART TX PLAN BLOOD 63439 [facility] COUNT 7 [facility] COMPLETE INC INC AUTO&AUTO DIFRNTL WBC APPLICATI 88269 [facility] ON 7 [facility] MODALITY INC INC 1/> AREAS HOT/COLD PACKS E-STIM G0283 [facility] 1/> AREAS 7 [facility] OTH THAN INC INC WND CARE PART TX PLAN APPL 50555 [facility] MODALITY 7 [facility] 1/> AREAS INC INC ULTRASOUN D EA 15 MIN PHYSICAL 13319 [facility] THERAPY 7 [facility] EVALUATIO INC INC N MOD COMPLEX [address] THORAX 16534 [facility] W/O 7 MEDICAL CONTRAST IMAGING MATERIAL ASS BLOOD 08860 [facility] COUNT 6 [facility] COMPLETE INC INC AUTO&AUTO DIFRNTL WBC RADIOLOGI 72115 [facility] C EXAM 6 [facility] CHEST 2 INC INC VIEWS FRONTAL&L ATERAL DRUG TST G0477 [facility] PRESUMP;C 6 [facility] PBL BEING INC INC READ DC OPT OBV ONLY COLLECTIO 43601 [facility] N VENOUS 6 [facility] BLOOD INC INC VENIPUNCT URE COMPREHEN 54991 [facility] SIVE 6 [facility] [place] [address] [facility] THYROID 6 [facility] STIMULATI [place] [address] [facility] THYROXINE 6 [facility] TOTAL INC INC THERAPEUT 46246 [facility] IC 6 [facility] PROPHYLAC INC INC TIC/DX INJECTION SUBQ/IM GLUC BLD 73030 [facility] GLUC MNTR 6 [facility] DEV INC INC CLEARED FDA SPEC HOME USE BLD GLU A4253 [facility] AMARAL TEST/REAG 6 HOME HOME T [facility] BLD EQUIPME EQUIPME GLU MON-50 LANCETS A4259 [facility] AMARAL PER BOX 6 HOME HOME OF 100 MEDICAL MEDICAL EQUIPME EQUIPME SBSQ 78460 [facility] 6 PHYSICIAN SHANTHI CARE/DAY [place] [address] [place] [address] [facility]EN & 6 MEDICAL PELVIS IMAGING W/O ASS CONTRAST MATERIAL RADIOLOGI 51876 [facility] C 6 MEDICAL EXAMINATI IMAGING ON CHEST ASS [place] FRONTAL CRITICAL 38034 [facility] 6 PHYSICIAN ILL/INJUR S, PLLC ED PATIENT INIT 30-74 MIN ECG 70049 [facility] CHOWDHURY JR ROUTINE 6 [facility] W/LEAST P 12 LDS I&R ONLY INITIAL 48946 [facility] 6 PHYSICIAN SHANTHI CARE/DAY S GROUP 50 MINUTES RADIOLOGI 01256 [facility] C EXAM 6 MEDICAL ANITA CHEST 2 IMAGING VIEWS ASS FRONTAL&L ATERAL COLLECTIO 57540 [facility] N VENOUS 6 [facility] BLOOD INC INC VENIPUNCT URE COMPREHEN 79030 [facility] SIVE 6 [facility] [place] [address] [facility] STREPTOCO 6 [facility] CCUS INC INC GROUP A CULTURE 23526 [facility] BCT 6 [facility] ISOL&PRSM INC INC PTV ID ISOLATE EA URINE SUSCEPTIB 03981 [facility] LTY STDY 6 [facility] ANTIMICRB INC INC IAL MICRO/AGA R DILUTJ CUL BACT 20273 [facility] XCPT 6 [facility] URINE INC INC BLOOD/STO OL AEROBIC ISOL CULTURE 48556 [facility] BACTERIAL 6 [facility] INC INC QUANTTATI VE COLONY COUNT URINE THERAPEUT 43102 [facility] IC 6 [facility] PROPHYLAC INC INC TIC/DX INJECTION SUBQ/IM IAADI 67048 [facility] INFLUENZA 6 [facility] B VIRUS INC INC BLOOD 27630 [facility] COUNT 6 [facility] COMPLETE INC INC AUTO&AUTO DIFRNTL WBC URNLS DIP 03290 [facility] 6 [facility] STICK/TAB INC INC LET REAGENT AUTO MICROSCOP Y IAADI 87094 [facility] INFFLUENZ 6 [facility] A A VIRUS INC INC MRI 54980 [facility] SPINAL 6 [facility] CANAL INC INC LUMBAR W/O CONTRAST MATERIAL 3D 47750 [facility] RENDERING 6 [facility] W/INTERP INC INC & POSTPROCE SS SUPERVISI ON RADIOLOGI 37178 [facility] CRISOSTOMOINELETITIA C 6 MEDICAL ANITA EXAMINATI IMAGING ON KNEE 3 ASS VIEWS THERAPEUT 67040 [facility] IC 6 [facility] INJECTION INC INC IV PUSH EACH NEW DRUG THER 57559 [facility] PROPH/DX 6 [facility] NJX IV INC INC PUSH SINGLE/1S T SBST/DRUG E-STIM G0283 [facility] 1/> AREAS 6 [facility] OTH THAN INC INC WND CARE PART TX PLAN APPLICATI 50172 [facility] ON 6 [facility] MODALITY INC INC 1/> AREAS HOT/COLD PACKS THERAPEUT 18800 [facility] IC PX 1/> 6 [facility] AREAS INC INC EACH 15 MIN EXERCISES PHYSICAL 34914 [facility] THERAPY 6 [facility] EVALUATIO INC INC N LANCETS A4259 [facility] CRISTIN PER BOX 6 HOME HOME OF 100 MEDICAL MEDICAL EQUIPME EQUIPME BLD GLU A4253 [facility] CRISTIN TEST/REAG 6 HOME HOME T [facility] HOME BLD EQUIPME EQUIPME GLU MON-50 DEBRIDEME 78413 [facility] NT NAIL 6 FOOT & ANY ANKLE CE METHOD 6/> POTASSIUM 89479 [facility] SERUM 6 [facility] PLASMA/WH INC INC OLE BLOOD COLLECTIO 38774 [facility] N VENOUS 6 [facility] BLOOD INC INC VENIPUNCT URE AMBULANCE A0429 [facility] SERVICE 6 AMBULANCE AMBULANCE BLS SERVICE SERVICE EMERGENCY TRANSPORT GROUND A0425 [facility] MILEAGE 6 AMBULANCE AMBULANCE PER SERVICE SERVICE STATUTE MILE POTASSIUM 56749 [facility] SERUM 6 [facility] PLASMA/WH INC INC OLE BLOOD COMPREHEN 84870 [facility] SIVE 6 [facility] METABOLIC INC INC PANEL RADEX 96213 [place] [facility] RIBS UNI 6 MEDICAL W/POSTERO IMAGING ANT CH ASS MINIMUM 3 VIEWS BLOOD 47469 [facility] COUNT 6 [facility] COMPLETE INC INC AUTO&AUTO DIFRNTL WBC COLLECTIO 40378 [facility] N VENOUS 6 [facility] BLOOD INC INC VENIPUNCT URE COMPREHEN 42954 [facility] SIVE 6 [facility] METABOLIC INC INC PANEL BLOOD 95279 [facility] COUNT 6 [facility] COMPLETE INC INC AUTO&AUTO DIFRNTL WBC RADEX 19819 [facility] 6 MEDICAL MEDICAL COMPLETE IMAGING IMAGING MINIMUM 2 ASS ASS VIEWS RADIOLOGI 59728 [place] [facility] ALL C EXAM 6 MEDICAL CHEST 2 IMAGING VIEWS ASS FRONTAL&L ATERAL COMPREHEN 08437 [facility] SIVE 6 [facility] METABOLIC INC INC PANEL COLLECTIO 79856 [facility] N VENOUS 6 [facility] BLOOD INC INC VENIPUNCT URE RADEX 56297 [facility] RIBS UNI 6 [facility] W/POSTERO INC INC ANT CH MINIMUM 3 VIEWS COLLECTIO 57482 [facility] N VENOUS 6 [facility] BLOOD INC INC VENIPUNCT URE COMPREHEN 98708 [facility] SIVE 6 [facility] [place] [address] [facility] LACTATE 6 [facility] INC INC BLOOD 75619 [facility] COUNT 6 [facility] COMPLETE INC INC AUTO&AUTO DIFRNTL WBC CULTURE 06207 [facility] BACTERIAL 6 [facility] BLOOD INC INC AEROBIC W/ID ISOLATES SUSCEPTIB 36825 [facility] LTY STDY 6 [facility] ANTIMICRB INC INC IAL MICRO/AGA R DILUTJ CUL BACT 91837 [facility] XCPT 6 [facility] URINE INC INC BLOOD/STO OL AEROBIC ISOL CUL BACT 98065 [facility] AEROBIC 6 [facility] ADDL INC INC METHS DEFINITIV E EA ISOL LANCETS A4259 CRISTIN CRISTIN PER BOX 6 HOME HOME OF 100 MEDICAL MEDICAL EQUIPME EQUIPME BLD GLU A4253 C[facility]ST[facility] AMARAL TEST/REAG 6 HOME HOME T [facility] HOME BLD EQUIPME EQUIPME GLU MON-50 CT SOFT 15872 [facility] TISSUE 6 [facility] NECK INC INC W/CONTRAS T MATERIAL LOCM Q9967 [facility] 300-399 6 [facility] MG/ML INC INC IODINE CONCENTRA TION PER ML RADEX 39676 [facility] ESOPHAGUS 6 [facility] INC INC RADEX 40768 [facility] SPINE 6 [facility] CERVICAL INC INC 4 OR 5 VIEWS RADEX HIP 64258 [facility] 6 [facility] UNILATERA INC INC L WITH PELVIS 2-3 VIEWS RADEX HIP 76493 [facility] ALL 6 MEDICAL UNILATERA IMAGING L WITH ASS PELVIS 1 VIEW RADEX 55619 [facility] ALL SPINE 6 MEDICAL CERVICAL IMAGING 2 OR 3 ASS VIEWS BLOOD 40916 [facility] COUNT 6 [facility] COMPLETE INC INC AUTO&AUTO DIFRNTL WBC COMPREHEN 39446 [facility] SIVE 6 [facility] [place] [address] [facility] AMMONIA 6 [facility] INC INC COLLECTIO 25962 [facility] N VENOUS 6 [facility] BLOOD INC INC VENIPUNCT URE CREATININ 82249 [facility] E BLOOD 6 [facility] INC INC BLOOD 50755 [facility] COUNT 6 [facility] COMPLETE INC INC AUTO&AUTO DIFRNTL WBC COLLECTIO 46399 [facility] N VENOUS 6 [facility] [place] [address] [facility] FREE 6 [facility] [place] [address] [facility] THYROID 6 [facility] STIMULATI [place] [address] [facility] UREA 6 [facility] NITROGEN INC INC QUANTITAT ANNABELLA COLLECTIO 70687 [facility] N VENOUS 5 [facility] BLOOD INC INC VENIPUNCT URE COMPREHEN 55622 [facility]AL[facility] SIVE 5 [facility] [address] [facility] THYROID 5 [facility] STIMULATI INC INC NG HORMONE TSH BLOOD 10300 [facility] COUNT 5 [facility] COMPLETE INC INC AUTO&AUTO DIFRNTL WBC RADIOLOGI 50117 [facility] C EXAM 5 MEDICAL CHEST 2 IMAGING VIEWS ASS FRONTAL&L ATERAL TX PROC G0238 [facility] IMPRV 5 [facility] RESP INC INC FUNCT NOT G0237 FCE-FCE 15MIN CT THORAX 55600 [facility] W/O 5 [facility] CONTRAST INC INC MATERIAL PRESSURIZ 25475 [facility] ED/NONPRE 5 [facility] SSURIZED INC INC INHALATIO N TREATMENT RADIOLOGI 14130 [facility] C 5 MEDICAL ANITA EXAMINATI IMAGING ON PELVIS ASS 1/2 VIEWS RADEX 09156 [facility] WRIST 5 MEDICAL ANITA COMPLETE IMAGING MINIMUM 3 ASS VIEWS RADEX 11103 [facility] HAND 5 [facility] MINIMUM 3 INC INC VIEWS APPLICATI 22218 [facility] ON SHORT 5 [facility] ARM INC INC SPLINT FOREARM-H AND STATIC WRIST L3908 [facility] HAND 5 TECHNOLOG TECHNOLOG ORTHOSIS IES INC IES INC EXT CONTROL COCK-UP PREFAB RADIOLOGI 87829 [facility] C 5 MEDICAL ANITA EXAMINATI IMAGING ON KNEE 3 ASS VIEWS RADEX 74885 [facility] RIBS UNI 5 MEDICAL ANITA W/POSTERO IMAGING ANT CH ASS MIN[place] [address] [place] [address] [facility] B[facility] MAXILLOFA 5 MEDICAL ANITA CIAL W/O IMAGING CONTRAST ASS MATERIAL DIAB ONLY A5500 [facility] FIT CSTM 5 MEDICAL MEDICAL PREP&SPL SUPPLY SUPPLY SHOE [facility] DNSITY INSRT FOR DIAB A5512 [facility] ONLY MX 5 MEDICAL MEDICAL DNSITY SUPPLY [employer]PPLY [employer] FORMD PRFAB EA ANES OPEN 16698 [facility] PJ PROC 5 ANESTH BONES OF THE LOWER BLUE LEG/ANKLE /FOOT NOS ECG 51647 BR[facility] CHOWDHURY JR ROUTINE 5 [facility] W/LEAST P 12 [place] [address] SURG 5 TORO & PATHOLOGY DUBILIER GROSS&SHANTHI ROSCOPIC EXAM DECALCIFI [address] CATION 5 TORO & PROCEDURE DUBILIER RADEX 13458 [place] [facility] FOOT 5 MEDICAL AYLA COMPLETE IMAGING MINIMUM [address] [place] [address] [facility] HEAD/BRAI 5 MEDICAL AYLA [place] [address] [place] [facility] CERVICAL 5 MEDICAL AYLA SPINE W/O IMAGING CONTRAST ASS MATERIAL GROUND A0425 [facility] MILEAGE 5 AMBULANCE AMBULANCE PER SERVICE SERVICE STATUTE MILE RADEX HIP 25744 [place] [facility] 5 MEDICAL AYLA UNILATERA IMAGING L ASS COMPLETE MINIMUM 2 VIEWS AMB A0427 [facility] SERVICE 5 AMBULANCE AMBULANCE ALS SERVICE SERVICE EMERGENCY TRANSPORT LEVEL 1 RADIOLOGI 73342 [place] [facility] C 5 MEDICAL AYLA EXAMINATI IMAGING ON PELVIS ASS 1/2 VIEWS CULTURE 69026 COMBINED COMBINED BACTERIAL 5 PHYSICIAN PHYSICIAN S LA S LA QUANTTATI VE COLONY COUNT URINE BLD GLU A4253 CRISTIN AMARAL TEST/REAG 5 HOME HOME T STRIPS MEDICAL MEDICAL HOME BLD EQUIPME EQUIPME GLU MON-50 GLUC BLD 19710 [facility] GLUC MNTR 5 [facility] DEV INC INC CLEARED FDA SPEC HOME USE BLOOD 89963 [facility] COUNT 5 [facility] COMPLETE INC INC AUTO&AUTO DIFRNTL WBC SUSCEPTIB 21923 [facility] LTY STDY 5 [facility] ANTIMICRB INC INC IAL MICRO/AGA R DILUTJ URNLS DIP 36119 [facility] 5 [facility] STICK/TAB INC INC LET REAGENT AUTO MICROSCOP Y CULTURE 85790 [facility] BACTERIAL 5 [facility] INC INC QUANTTATI VE COLONY COUNT URINE CULTURE 25224 [facility] BCT 5 [facility] ISOL&PRSM INC INC PTV ID ISOLATE EA URINE COLLECTIO 79128 [facility] N VENOUS 5 [facility] BLOOD INC INC VENIPUNCT URE COMPREHEN 04174 [facility] SIVE 5 [facility] METABOLIC INC INC PANEL THER 32597 [facility] PROPH/DX 5 [facility] NJX IV INC INC PUSH SINGLE/1S T SBST/[place] [address] [facility] HEPATITIS 5 [facility] B INC INC SURFACE ANTIGEN HEPATITIS 87610 [facility] Boyd CORE 5 [facility] ANTIBODY INC INC HBCAB TOTAL HEPATITIS 23066 [facility] B SURF 5 [facility] ANTIBODY INC INC HBSAB HEPATITIS 16985 [facility] A 5 [facility] ANTIBODY INC INC HAAB COLLECTIO 48472 [facility] N VENOUS 5 [facility] BLOOD INC INC VENIPUNCT URE COMPREHEN 23873 [facility] SIVE 5 [facility] METABOLIC INC INC PANEL HEPATITIS 39007 [facility] C 5 [facility] ANTIBODY INC INC BLOOD 39851 [facility] COUNT 5 [facility] COMPLETE INC INC AUTO&AUTO DIFRNTL WBC DUP-SCAN 10552 [facility] XTR VEINS 5 [facility] INC INC UNILATERA L/LIMITED STUDY CV STRS 58254 [facility] KILLIAN ACOSTA TST 5 PHYSICIAN XERS&/OR S GROUP RX CONT ECG W/O I&R CV STRS 13328 BRANDON WELLS TST 5 [facility] XERS&/OR HOSPITAL RX CONT P ECG I&R ONLY MYOCARDIA 44404 [facility] Yoon SPECT 5 [facility] MULTIPLE INC INC STUDIES TECHNETIU A9500 [facility] Wayne TC-99M 5 [facility] SESTAMIBI INC INC DX PER STUDY DOSE CV STRS 49126 BRANDON BRANDON TST 5 [facility] XERS&/OR INC INC RX CONT ECG TRCG ONLY INJECTION [id number] BRANDON TAYLOR 5 [facility] REGADENOS INC INC ON 0.1 MG RADEX 15300 [facility] WRIST 5 MEDICAL COMPLETE IMAGING MINIMUM 3 ASS VIEWS RADIOLOGI 66015 [place] [facility] C 5 MEDICAL EXAMINATI IMAGING ON PELVIS ASS 1/2 VIEWS RADEX 36350 [place] SHOULDER 5 MEDICAL COMPLETE IMAGING MINIMUM 2 ASS VIEWS RADIOLOGI 42791 [facility] C 5 MEDICAL EXAMINATI IMAGING ON KNEE 3 ASS VIEWS RADEX 67905 [facility] RIBS 5 MEDICAL UNILATERA IMAGING L 2 VIEWS ASS AMBULANCE A0429 [facility] SERV[facility] 5 AMBULANCE AMBULANCE BLS SERVICE SERVICE EMERGENCY TRANSPORT GROUND A0425 [facility] 5 AMBULANCE AMBULANCE PER SERVICE SERVICE STATUTE MILE RADIOLOGI 18970 BR[facility]ON TAYLOR C 5 [facility] EXAMINATI INC INC ON CHEST [place] FRONTAL RADEX 38485 BRANDON T[facility]LOR RIBS UNI 5 [facility] W/POSTERO INC INC ANT CH MINIMUM 3 VIEWS COLLECTIO 51094 [facility] N VENOUS 5 [facility] BLOOD INC INC VENIPUNCT URE BASIC 48018 BR[facility] T[facility] METABOLIC 5 [facility] PANEL INC INC CALCIUM TOTAL BLOOD 46016 BRANDON TAYLOR COUNT 5 [facility] COMPLETE INC INC AUTO&AUTO DIFRNTL WBC BLD GLU A4253 CRISTIN AMARAL TEST/REAG 5 HOME [facility] BLD EQUIPME [place]QUIPME GLU MON-[address] [place] [address] [facility] & 5 MEDICAL ANITA PELVIS IMAGING W/CONTRAS ASS T MATERIAL BLOOD 30735 [facility] UNIVERS COUNT 5 Y Y COMPLETE [facility] AUTOMATED THROMBOPL 63390 [facility] ASTIN 5 Y Y [facility] PARTIAL PLASMA/WH OLE BLOOD INFUSION J7030 [facility] NORMAL 5 Y Y [facility]INE [facility] SOLUTION 1000 CC PROTHROMB 33666 [facility] IN TIME 5 Y Y HOSPITAL HOSPITAL SPCL STN 00420 [facility] 2 I&R 5 Y Y EXCPT HEALTH SYSTEM MICROORG/ ENZYME/IM CYT LEVEL V 69048 [facility] SURG 5 Y Y PATHOLOGY HOSPITAL [facility] GROSS&SHANTHI ROSCOPIC EXAM BIOPSY 27376 [facility] LIVER 5 Y Y [facility] PERCUTANE OUS GLUCOSE 31338 [facility] QUANTITAT 5 Y Y ANNABELLA BLOOD HEALTH SYSTEM XCPT REAGENT STRIP RADIOLOGI 43572 [place] JULY C 5 MEDICAL SHANTHI EXAMINATI SERV ON CHEST FOUNDATIO [place] FRONTAL IMHISTOCH 60388 LOC [facility] EM/CYTCHM 5 PATHOLOGY PATHOLOGY EA [facility] [employer] [place] [address] LOC [facility] SURG 5 PATHOLOGY PATHOLOGY PATHOLOGY SERVICES SERVICES GROSS&SHANTHI ROSCOPIC EXAM IMHISTOCH 15009 LOC [facility] EM/CYTCHM 5 PATHOLOGY PATHOLOGY 1ST SERVICES SERVICES ANTIBODY STAIN PROCEDURE CUL BACT 87491 [facility] XCPT 5 [facility] URINE INC INC BLOOD/STO OL AEROBIC ISOL CUL BACT 84342 [facility] AEROBIC 5 [facility] ADDL INC INC METHS DEFINITIV E EA ISOL SUSCEPTIB 76892 BR[facility] LTY STDY 5 [facility] ANTIMICRB INC INC IAL MICRO/AGA R DILUTJ RADEX 31452 [place] [facility] SPINE 5 MEDICAL AYLA CERVICAL IMAGING 2 OR 3 ASS VIEWS BASIC 25956 [facility] METABOLIC 5 [facility] EED MOH PANEL INC CALCIUM TOTAL OBSERVATI 97295 [place] USERY AND ON CARE 5 SEAGRAVES DISCHARGE INTERNAL MED MANAGEMEN T NONINVASI 58849 [facility] VE 5 [facility] EAR/PULSE INC INC OXIMETRY SINGLE DETER GLUC BLD 00234 [facility] GLUC MNTR 5 [facility] DEV INC INC CLEARED FDA SPEC HOME USE BLOOD 24965 [facility] COUNT 5 [facility] COMPLETE INC INC AUTO&AUTO DIFRNTL WBC PRESSURIZ 43580 [facility] ED/NONPRE 5 [facility] SSURIZED INC INC INHALATIO [facility] G0378 [facility] OBSERVATI 5 [facility] ON INC INC SERVICE PER HOUR COLLECTIO 69796 [facility] N VENOUS 5 [facility] [place] [address] [facility] STREPTOCO 5 [facility] [place] [address] [facility] INFUSION 5 [facility] THER INC INC PROPH ADDL SEQUENTIA L TO 1 HR THERAPEUT 05152 [facility] IC [facility] INJECTION INC INC IV PUSH EACH NEW DRUG SUSCEPTIB 27260 [facility] LTY STDY 5 [facility] ANTIMICRB INC INC IAL MICRO/AGA R DILUTJ CULTURE 83218 [facility] BACTERIAL 5 [facility] BLOOD INC INC AEROBIC W/ID ISOLATES BLOOD 58805 [facility] COUNT 5 [facility] COMPLETE INC INC AUTO&AUTO DIFRNTL WBC GLUC BLD 34462 [facility] GLUC MNTR 5 [facility] DEV INC INC CLEARED FDA SPEC HOME USE INJECTION J2310 [facility] NALOXONE 5 [facility] HCL PER INC INC 1 MG INITIAL 82933 [place] [facility]ERY AND OBSERVATI 5 [facility]/DAY MED 30 [place] [address] [facility] INFUSION 5 [facility] THERAPY/P INC INC ROPHYLAXI S /DX 1ST TO 1 HR IAADI 81162 [facility] INFLUENZA 5 [facility] B VIRUS INC INC IAADI 85400 [facility] INFFLUENZ 5 [facility] A A VIRUS INC INC HOSP[facility] G0378 [facility] OBSERVATI 5 [facility] ON INC INC SERVICE PER HOUR RADIOLOGI 78703 [facility] C 5 [facility] EXAMINATI INC INC ON CHEST SINGLE VIEW FRONTAL CUL BACT 94777 [facility] XCPT 5 [facility] URINE INC INC BLOOD/STO OL AEROBIC ISOL CUL BACT 14621 [facility] AEROBIC 5 [facility] ADDL INC INC METHS DEFINITIV E EA ISOL RADIOLOGI 28398 [facility] 5 MED[facility] AYLA EXAMINATI IMAGING ON CHEST ASS SINGLE VIEW FRONTAL PROTHROMB 27641 [facility] IN TIME 5 [facility] INC INC COMPREHEN 27393 [facility] SIVE 5 [facility] METABOLIC INC INC PANEL COLLECTIO 44170 [facility] N VENOUS 5 [facility] [place] [address] [facility] GAMMAGLOB 5 [facility] ULIN IGA INC INC IGD IGG IGM EACH BLOOD 19161 [facility] COUNT 5 [facility] COMPLETE INC INC AUTO&AUTO DIFRNTL WBC IM ADM 60664 [place] PRQ ID 5 MEDICAL AYANANE SUBQ/IM SERV ACH NJXS 1 FOUNDATIO VACCINE N HEPATITIS 03172 [place] A & B 5 MEDICAL AYANANE VACCINE SERV ACH HEPA-HEPB FOUNDATIO ADULT IM N RADEX 05800 [place] [facility] SHOULDER 5 MEDICAL AYLA COMPLETE IMAGING MINIMUM 2 ASS VIEWS RADEX HIP 15461 [place] [facility] 5 MEDICAL AYLA UNILATERA IMAGING L ASS COMPLETE MINIM[place] [address] [place] [address] [place] HEAD/BRAI 5 MEDICAL AYLA N W/O IMAGING CONTRAST ASS MATERIAL RADEX 62857 [facility] RABAGOON WRIST 4 [facility] COMPLETE INC INC MINIMUM 3 VIEWS RADEX 16876 [facility] HAND 4 [facility] MINIMUM 3 INC INC VIEWS APPLICATI 68261 [facility]ORT 4 KAMAR MOH ARM EMERGENCY SPLINT PHYS FOREARM-H AND STATIC PREPJ& 49009 MARNI MARNI ALLERGEN 4 LUIS ALFREDO LUIS ALFREDO IMMUNOTHE RAPY 1/EVICTION SPECIALIST ANTIGEN BLD GLU A4253 CRISTIN CRISTIN TEST/REAG 4 HOME HOME T [facility] BLD EQUIPME EQUIPME GLU MON-50 ADMINISTR G0010 BUNNY SOURIANAR ATION OF 4 MEDICAL AYANANE HEPATITIS SERV ACH B FOUNDATIO VACCINE N HEPATITIS 39774 [place] A & B 4 MEDICAL AYANANE VACCINE SERV ACH HEPA-HEPB FOUNDATIO ADULT IM N SPMTRY 59618 MARNI MARNI W/VC 4 LUIS ALFREDO LUIS ALFREDO EXPIRATOR Y LULU W/WO MXML VOL VNTJ COMPRE 89463 EAR, NOSE EAR, NOSE AUDIOMETR 4 AND AND Y THROAT THROAT THRESHOLD SPECIAL SPECIAL EVAL SP RECOGNIJ TYMPANOME 28294 EAR, NOSE SHASHY TRY 4 AND SOBEIDA THROAT SPECIAL RADEX HIP 74952 [place] [facility] 4 MEDICAL AYLA UNILATERA IMAGING L ASS COMPLETE MINIMUM 2 VIEWS COLLECTIO 85258 [facility] N VENOUS 4 [facility] [place] [address] [facility] THYROID 4 [facility] STIMULATI INC INC NG HORMONE TSH COMPREHEN 32414 [facility] SIVE 4 [facility] [address] [facility] AMMONIA 4 [facility] INC INC LIPID 03422 [facility] PANEL 4 [facility] INC INC HEMOGLOBI 06921 [facility] N 4 [facility] GLYCOSYLA INC INC ML A1C BLOOD 83229 [facility] COUNT 4 [facility] COMPLETE INC INC AUTO&AUTO DIFRNTL WBC ALBUMIN 31226 [facility] URINE 4 [facility] MICROALBU INC INC MIN QUANTIATI VE DETERMINA 35752 EVELYN RAMIREZ TION 4 [facility] E [facility] 93150 [facility] 4 VISION XM&EVAL CENTER COMPRHNSV ESTAB PT 1/> COLLECTIO 31908 [facility] N VENOUS 4 Y Y BLOOD HEALTH SYSTEM VENIPUNCT URE COMPREHEN 06000 [facility] 4 Y Y METABOLIC HEALTH SYSTEM PANEL ANTINUCLE 87366 [facility] AR [facility] NADINE ANTINUCLE 86019 [facility] 4 Y [facility] S NADINE TITER BLD GLU A4253 CRISTIN CRISTIN TEST/REAG 4 HOME HOME T [facility] BLD EQUIPME EQUIPME GLU MON-50 FOR DIAB A5512 [facility] ONLY MX 4 MEDICAL MEDICAL DNSITY SUPPLY SUPPLY [employer] FORMD PRFAB EA DIAB ONLY A5500 [facility] FIT CSTM 4 MEDICAL MEDICAL PREP&SPL SUPPLY SUPPLY SHOE [employer] DNSITY INSRT INFUSION J7030 [facility] 4 Y Y SALINE HEALTH SYSTEM SOLUTION 1000 CC COLOREC G0121 [place] CANCR 4 MEDICAL AMANDA SCR; SERV COLNSCPY FOUNDATIO NOT MEET HI RISK GLUCOSE 16486 [facility] 4 Y Y ANNABELLA BLOOD HEALTH SYSTEM XCPT REAGENT STRIP ESOPHAGOG 61264 [place]IL[place] ASTRODUOD 4 MEDICAL AMANDA ENOSCOPY SERV TRANSORAL FOUNDATIO DIAGNOSTI C CUL BACT 69071 [facility] XCPT 4 DIAGNOSTI DIAGNOSTI URINE CS CS BLOOD/[place] [address] ADVANCED ADVANCED SURG 4 DERMATOLO DERMATOLO PATHOLOGY GY GY GROSS&SHANTHI ROSCOPIC EXAM BX SKIN 81104 ADVANCED ADVANCED SUBCUTANE 4 DERMATOLO DERMATOLO OUS&/MUCO GY GY US MEMBRANE 1 LESION BIOPSY 70780 ADVANCED ADVANCED SKIN 4 DERMATOLO DERMATOLO SUBQ&/MUC GY GY OUS MEMBRANE EA ADDL LESN COLLECTIO 26442 [facility] N VENOUS 4 [facility] BLOOD INC INC VENIPUNCT URE COMPREHEN 82411 [facility] SIVE 4 [facility] METABOLIC INC INC PANEL BLOOD 60281 [facility] COUNT 4 [facility] COMPLETE INC INC AUTO&AUTO DIFRNTL WBC BLD GLU A4253 CRISTIN JORDANRELL TEST/REAG 4 HOME HOME T [facility] BLD EQUIPME EQUIPME GLU MON-50 US SOFT 04057 [facility] TISSUE 4 [facility] HEAD & INC INC NECK REAL TIME IMGE DOCM RADIOLOGI 03330 [facility] CORONEL C EXAM 4 MEDICAL AYLA CHEST 2 IMAGING VIEWS ASS FRONTAL&L ATERAL CULTURE 26892 [facility] RABAGOON BACTERIAL 4 [facility] INC INC QUANTTATI VE COLONY COUNT URINE BLOOD 50694 [facility] COUNT 4 [facility] COMPLETE INC INC AUTO&AUTO DIFRNTL WBC CULTURE 66674 [facility] BACTERIAL 4 [facility] BLOOD INC INC AEROBIC W/ID ISOLATES COLLECTIO 07598 [facility] N VENOUS 4 [facility] BLOOD INC INC VENIPUNCT URE COMPREHEN 27084 [facility] SIVE 4 [facility] METABOLIC INC INC PANEL COLLECTIO 34265 [facility] N VENOUS 4 Y Y BLOOD HEALTH SYSTEM VENIPUNCT URE ANTIBODY 04753 [facility] Y Y [facility]ION [facility] LEUKOCYTE ANTIBODIE S HEPATITIS 91680 [facility] A 4 Y Y [facility] HAAB IADNA 56427 [facility] HEPATITIS 4 Y Y C [facility]VERSE TRANSCRIP TION HEPATITIS 07223 [facility] C 4 [place] [address] [facility] HEPATITIS 4 Y Y B HEALTH SYSTEM SURFACE ANTIGEN HEPATITIS 27975 [facility] CORE 4 Y Y [facility] HBCAB TOTAL HEPATITIS 46872 [facility] SURF 4 Y Y [facility] HBSAB FLUORESCE 99953 [facility] NT 4 Y Y NONNFCT HEALTH SYSTEM AGT ANTB SCREEN EA ANTIBODY INFUSION J7030 [facility] NORMAL 4 Y Y [facility] SOLUTION 1000 CC COMPREHEN [address]8560 [place] [address] Y Y METABOLIC HEALTH SYSTEM PANEL URNLS DIP 80928 [facility] 4 Y Y STICK/TAB HEALTH SYSTEM LET RGNT AUTO W/O MICROSCOP Y INJECTION J2405 [facility] 4 Y [facility] H[facility] PER 1 MG LOCM Q9967 [facility] [phone] 4 Y Y MG/ML HEALTH SYSTEM IODINE CONCENTRA TION PER ML THER 70531 [facility] PROPH/DX 4 Y Y NJX IV HEALTH SYSTEM PUSH SINGLE/1S T SBST/DRUG RINGERS J7120 [facility] LACTATE 4 Y Y INFUSION HEALTH SYSTEM UP TO 1000 CC BLOOD 36850 [facility] COUNT 4 Y [place] [address] [place] ABDOMEN & 4 MEDICAL OLIVIA PELVIS SERV W/[place] [address] [facility] LIPASE 4 [facility] INC INC CULTURE 95264 [facility] BACTERIAL 4 [facility] INC INC QUANTTATI VE COLONY COUNT URINE CULTURE 67117 [facility] BCT 4 [facility] ISOL&PRSM INC INC PTV ID ISOLATE EA URINE COLLECTIO 85914 [facility] N VENOUS 4 [facility] BLOOD INC INC VENIPUNCT URE COMPREHEN 65590 [facility] SIVE 4 [facility] [address] [facility] AMYLASE 4 [facility] INC INC BLOOD 16210 [facility] COUNT 4 [facility] COMPLETE INC INC AUTO&AUTO DIFRNTL WBC SUSCEPTIB 32366 [facility] LTY STDY 4 [facility] ANTIMICRB INC INC IAL MICRO/AGA R DILUTJ URNLS DIP 39736 [facility] 4 [facility] STICK/TAB INC INC LET REAGENT AUTO MICROSCOP Y SCR G0145 [facility] CYTOPATH 4 [facility] CERV/VAG SCR AUTO&MNL RSCR PHYS ECG 87934 [facility] WELLS ROUTINE [address] [facility] W/LEAST P 12 LDS I&R ONLY RADIOLOGI 77166 [facility] CORONEL C EXAM 4 MEDICAL AYLA CHEST 2 IMAGING VIEWS ASS FRONTAL&[place] [address] [facility] TROPONIN 4 [facility] QUANTITAT INC INC ANNABELLA NATRIURET 31060 [facility] IC 4 [facility] PEPTIDE INC INC BLOOD 51358 [facility] COUNT 4 [facility] COMPLETE INC INC AUTO&AUTO DIFRNTL WBC ECG 53757 [facility] WE[facility]S ROUTINE [address] [facility] W/LEAST P 12 LDS I&R ONLY COLLECTIO 65275 [facility] N VENOUS 4 [facility] BLOOD INC INC VENIPUNCT URE CREATINE 12554 [facility] KINASE MB 4 [facility] FRACTION INC INC ONLY CREATINE 88880 [facility] KINASE 4 [facility] TOTAL INC INC ECG 70581 [facility] ROUTINE 4 [facility] ECG INC INC W/LEAST 12 LDS TRCG ONLY W/O I&R BASIC 90120 [facility] METABOLIC 4 [facility] PANEL INC INC CALCIUM TOTAL ALBUTEROL J7613 YOUR YOUR INHAL 4 PHARMACY PHARMACY NON-CP [employer] Media PROD THRU DME U DOSE 1 MG ADMN SET A7005 YOUR YOUR W/SM VOL 4 PHARMACY PHARMACY NONFILTR [employer] [facility] NEBULIZR NON-DISPB L PHRM Q0513 YOUR YOUR DISPENSIN 4 PHARMACY PHARMACY G FEE [employer] [facility] INHALATIO N RX; PER 30 DAYS BLD GLU A4253 CRISTIN AMARAL TEST/REAG 4 HOME HOME T [facility] BLD EQUIPME EQUIPME GLU MON-50 LANCETS A4259 CRISTIN AMARAL PER BOX 4 HOME HOME OF 100 MEDICAL MEDICAL EQUIPME EQUIPME E-STIM G0283 [facility] 1/> AREAS 4 [facility] OTH THAN INC INC WND CARE PART TX PLAN APPLICATI 69338 [facility] ON 4 [facility] MODALITY INC INC 1/> AREAS HOT/COLD PACKS APPLICATI 55932 [facility] ON 4 [facility] MODALITY INC INC 1/> AREAS HOT/COLD PACKS APPL 20740 [facility] MODALITY 4 [facility] 1/> AREAS INC INC 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 L E-STIM G0283 [facility] 1/> AREAS 4 [facility] OTH THAN INC INC WND CARE PART TX PLAN E-STIM G0283 [facility] 1/> AREAS 4 [facility] OTH THAN INC INC WND CARE PART TX PLAN APPL 83504 [facility] MODALITY 4 [facility] 1/> AREAS INC INC 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 L APPLICATI 83732 [facility] ON 4 [facility] MODALITY INC INC 1/> AREAS HOT/COLD PACKS COLLECTIO 34415 [facility] N VENOUS 4 [facility] BLOOD INC INC VENIPUNCT URE COMPREHEN 28095 [facility] SIVE 4 [facility] METABOLIC INC INC PANEL LIPID 30752 [facility] PANEL 4 [facility] INC INC TENS E0730 EMPI INC EMPI INC DEVICE 4 4/MORE LEADS MULTI NERVE STIMULATI ON APPLICATI 99926 [facility] ON 4 [facility] MODALITY INC INC 1/> AREAS HOT/COLD PACKS APPL 02929 [facility] MODALITY 4 [facility] 1/> AREAS INC INC 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 L E-STIM G0283 [facility] 1/> AREAS 4 [facility] OTH THAN INC INC WND CARE PART TX PLAN APPL 19416 [facility] MODALITY 4 [facility] 1/> AREAS INC INC ELEC STIMJ EA 15 MIN E-STIM G0283 [facility] 1/> AREAS 4 [facility] OTH THAN INC INC WND CARE PART TX PLAN APPL 64959 [facility] MODALITY 4 [facility] 1/> AREAS INC INC 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 L APPLICATI 71972 [facility] ON 4 [facility] MODALITY INC INC 1/> AREAS HOT/COLD PACKS BLD GLU A4253 CRISTIN JORDANRELL TEST/REAG 4 HOME HOME T [facility] BLD EQUIPME EQUIPME GLU MON-50 LANCETS A4259 CRISTIN AMARAL PER BOX 4 HOME HOME OF 100 MEDICAL MEDICAL EQUIPME EQUIPME URNLS DIP 88732 [facility] MIRANDA 4 [facility] LET RGNT P NON-AUTO W/O MICRSCP APPLICATI 65040 [facility] ON 4 [facility] MODALITY INC INC 1/> AREAS HOT/COLD PACKS E-STIM G0283 [facility] 1/> AREAS 4 [facility] OTH THAN INC INC WND CARE PART TX PLAN ECG 10481 [facility] [address]INE [address] [facility] W/LEAST P 12 LDS I&R ONLY RADIOLOGI 58533 [facility] C EXAM 4 MEDICAL AYLA CHEST 2 IMAGING VIEWS ASS FRONTAL&L ATERAL RADIOLOGI 46737 [facility] C EXAM 4 MEDICAL AYLA CHEST 2 IMAGING VIEWS ASS FRONTAL&L ATERAL ECG 91092 BRANDON CHOWDHURY JR ROUTINE 4 [facility] W/LEAST P 12 LDS I&R ONLY E-STIM G0283 [facility] 1/> AREAS 4 [facility] OTH THAN INC INC WND CARE PART TX PLAN APPL 88532 [facility] MODALITY 4 [facility] 1/> AREAS INC INC ULTRASOUN D EA 15 MIN APPL 24808 [facility] MODALITY 4 [facility] 1/> AREAS INC INC 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 L APPLICATI 62611 [facility] ON 4 [facility] MODALITY INC INC 1/> AREAS HOT/COLD PACKS NEEDLE 31168 BUDDHISM GARO EMG EA [facility] W/PARASPI MITCH NL AREA COMPLETE APPL 62974 [facility] MODALITY 4 [facility] 1/> AREAS INC INC ULTRASOUN D EA 15 MIN APPL 64923 [facility] MODALITY 4 [facility] 1/> AREAS INC INC 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 L NERVE 95629 AMA MILLERIO 4 NEUROLOGY [facility] ST[facility] 5-6 MITCH STUDIES MRI 26783 [facility] CORONEL SPINAL 4 MEDICAL AYLA CANAL IMAGING LUMBAR ASS W/O CONTRAST MATERIAL 3D 30296 [facility] CORONEL RENDERING 4 MEDICAL AYLA IMAGING W/INTERP& ASS POSTPROC DIFF WORK STATION 3D 55966 [facility] RENDERING 4 [facility] W/INTERP INC INC & POSTPROCE SS SUPERVISI ON APPL 63062 [facility] MODALITY 4 [facility] 1/> AREAS INC INC ULTRASOUN D EA 15 MIN APPL 19623 [facility] MODALITY 4 [facility] 1/> AREAS INC INC 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 L APPLICATI 33197 [facility] ON 4 [facility] MODALITY INC INC 1/> AREAS HOT/COLD PACKS E-STIM G0283 [facility] 1/> AREAS 4 [facility] OTH THAN INC INC WND CARE PART TX PLAN E-STIM G0283 [facility] 1/> AREAS 4 [facility] OTH THAN INC INC WND CARE PART TX PLAN PHYSICAL 02870 [facility] THERAPY 4 [facility] EVALUATIO INC INC N APPLICATI 90879 [facility] ON 4 [facility] MODALITY INC INC 1/> AREAS HOT/COLD PACKS APPL 28285 [facility] MODALITY 4 [facility] 1/> AREAS INC INC ULTRASOUN D EA 15 MIN APPL 86915 [facility] MODALITY 4 [facility] 1/> AREAS INC INC 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 L APPL 58092 [facility] MODALITY 4 [facility] 1/> AREAS INC INC ULTRASOUN D EA 15 MIN E-STIM G0283 [facility] 1/> AREAS 4 [facility] OTH THAN INC INC WND CARE PART TX PLAN APPLICATI 57535 [facility] ON 4 [facility] MODALITY INC INC 1/> AREAS HOT/COLD PACKS APPLICATI 72009 [facility] ON 4 [facility] MODALITY INC INC 1/> AREAS HOT/COLD PACKS E-STIM G0283 [facility] 1/> AREAS 4 [facility] OTH THAN INC INC WND CARE PART TX PLAN APPL 43320 [facility] MODALITY 4 [facility] 1/> AREAS INC INC ULTRASOUN D EA 15 MIN APPL 19198 [facility] MODALITY 4 [facility] 1/> AREAS INC INC 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 L APPL 01618 [facility] MODALITY 4 [facility] 1/> AREAS INC INC 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 L BLD GLU A4253 CRISTIN AMARAL TEST/REAG 4 HOME HOME T [facility] BLD EQUIPME EQUIPME GLU MON-50 LANCETS A4259 CRISTIN JORDANRELL PER BOX 4 HOME HOME OF 100 MEDICAL MEDICAL EQUIPME EQUIPME APPL 65932 [facility] MODALITY 4 [facility] 1/> AREAS INC INC ULTRASOUN D EA 15 MIN E-STIM G0283 [facility] 1/> AREAS 4 [facility] OTH THAN INC INC WND CARE PART TX PLAN APPLICATI 60144 [facility] ON 4 [facility] MODALITY INC INC 1/> AREAS HOT/COLD PACKS APPLICATI 23373 [facility] ON 4 [facility] MODALITY INC INC 1/> AREAS HOT/COLD PACKS E-STIM G0283 [facility] 1/> AREAS 4 [facility] OTH THAN INC INC WND CARE PART TX PLAN APPL 45386 [facility] MODALITY 4 [facility] 1/> AREAS INC INC ULTRASOUN D EA 15 MIN APPL 33593 [facility] MODALITY 4 [facility] 1/> AREAS INC INC 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 L APPL 47866 [facility] MODALITY 4 [facility] 1/> AREAS INC INC 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 L APPL 65108 BR[facility] BRANDON MODALITY 4 [facility] 1/> AREAS INC INC ULTRASOUN D EA 15 MIN E-STIM G0283 [facility] 1/> AREAS 4 [facility] OTH THAN INC INC WND CARE PART TX PLAN APPLICATI 95739 [facility] ON 4 [facility] MODALITY INC INC 1/> AREAS HOT/COLD PACKS E-STIM G0283 [facility] 1/> AREAS 4 [facility] OTH THAN INC INC WND CARE PART TX PLAN APPL 58577 [facility] MODALITY 4 [facility] 1/> AREAS INC INC ULTRASOUN D EA 15 MIN APPLICATI 36654 [facility] INC 1/> AREAS HOT/COLD PACKS APPL 27783 [facility]ALITY 4 [facility] 1/> AREAS INC INC 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 L ANES 84863 [facility] TRANSURET 3 ANESTH HRAL OF THE W/[place] N[place] [address] [facility] INFUSION 3 [facility] THERAPY/P INC INC ROPHYLAXI S /DX 1ST TO 1 HR GLUC BLD 68447 [facility] GLUC MNTR 3 [facility] DEV INC INC CLEARED FDA SPEC HOME USE THERAPEUT 10097 [facility] IC 3 [facility] INJECTION INC INC IV PUSH EACH NEW DRUG INJECTION J2405 [facility] ONDANSETR INC [place] H[place] 1 [place] [address] [facility] INFUSION 3 [facility] THERAPY INC INC PROPHYLAX IS/DX EA HOUR CYSTO 99098 [facility] MIRANDA CALIBRATI 3 [facility] ON DILAT [facility] URTL P STRIX/CATRACHITO NOSIS URNLS DIP 60025 [facility] MIRANDA 3 [facility] LET RGNT P NON-AUTO W/O MICRSCP PROF SVCS 27358 MARNI MARNI ALLG 3 LUIS ALFREDO LUIS ALFREDO IMMNTX X W/PRV ALLGIC XTRCS NJXS PROF SVCS 07819 MARNI MARNI ALLG 3 LUIS ALFREDO LOBATO IMMNTX X W/PRV ALLGIC XTRCS NJXS SMR PRIM 26341 [facility] SRC 3 [facility] GRAM/GIEM INC INC SA STAIN BCT FUNGI/VERÓNICA L SUSCEPTIB 23025 [facility] LTY STDY 3 [facility] ANTIMICRB INC INC IAL MICRO/AGA R DILUTJ MYOCARDIA 82326 [facility] L SPECT 3 [facility] MULTIPLE INC INC STUDIES INJECTION J2785 [facility] 3 [facility] REGADENOS INC INC ON 0.1 MG CUL BACT 01196 [facility] STOOL 3 [facility] AEROBIC INC INC ISOL SALMONELL A&SHIGELL TECHNETIU A9500 [facility] Wayne TC-99M 3 [facility] SESTAMIBI INC INC DX PER STUDY DOSE CV STRS 44624 [facility] TST 3 [facility] XERS&/OR INC [place] [address] [facility] LIPASE 3 [facility] INC INC BLOOD 81175 [facility] COUNT 3 [facility] COMPLETE INC INC AUTO&AUTO DIFRNTL WBC COLLECTIO 46014 [facility] Bhatti VENOUS 3 [facility] BLOOD INC INC VENIPUNCT URE COMPREHEN 67336 [facility] SIVE 3 [facility] [place] [address] [facility] AMYLASE 3 [facility] INC INC ALBUTEROL J7613 YOUR YOUR INHAL 3 PHARMACY PHARMACY NON-CP [employer] PROD THRU DME U DOSE 1 MG PHRM Q0513 YOUR YOUR DISPENSIN 3 PHARMACY PHARMACY G FEE [employer] INHALATIO N RX; PER 30 DAYS CULTURE 84566 [facility] BACTERIAL 3 [facility] INC INC QUANTTATI VE COLONY COUNT URINE CULTURE 04504 [facility] BCT 3 [facility] ISOL&PRSM INC INC PTV ID ISOLATE EA URINE INSJ 10712 [facility] RUBEN NON-NDWEL 3 [facility] BLADDER P CATHETER URNLS DIP 09840 [facility] MIRANDA 3 [facility] LET RGNT P NON-AUTO W/O MICRSCP SUSCEPTIB 39050 [facility] LTY STDY 3 [facility] ANTIMICRB INC INC IAL MICRO/AGA R DILUTJ INJECTION J2405 [facility] 3 [facility] ONDANSETR INC INC ON HCL PER 1 MG COMPREHEN 19541 [facility] SIVE 3 [facility] METABOLIC INC INC PANEL THERAPEUT 64637 [facility] IC 3 [facility] PROPHYLAC INC INC TIC/DX INJECTION SUBQ/IM BLOOD 29233 [facility] COUNT 3 [facility] COMPLETE INC INC AUTO&AUTO DIFRNTL WBC RADEX ABD 40546 [facility] COMPL 3 [facility] AQT ABD INC INC W/S/E/D VIEWS 1 VIEW CH 3D 57178 [facility] RENDERING 3 [facility] INC INC W/INTERP& [place] [address] [facility] LIPASE 3 [place] [address] [facility] ABDOMEN & [facility] PELVIS INC INC W/O CONTRAST MATERIAL PROF [facility] 49746 MARNI MARNI ALLG 3 LUIS ALFREDO LUIS ALFREDO IMMNTX X W/PRV ALLGIC XTRCS NJXS SPMTRY 08609 MARNI MARNI W/VC 3 LUIS ALFREDO LUIS ALFREDO EXPIRATOR Y LULU W/WO MXML VOL VNTJ PROF SVCS 34709 MARNI MARNI ALLG 3 LUIS ALFREDO LUIS ALFREDO IMMNTX X W/PRV ALLGIC XTRCS NJXS CULTURE 11025 [facility] BACTERIAL 3 [facility] INC INC QUANTTATI VE COLONY COUNT URINE PROF SVCS 45689 MARNI MARNI ALLG 3 LUIS ALFREDO LUIS ALFREDO IMMNTX X W/PRV ALLGIC XTRCS NJXS PROF SVCS 52762 MARNI MARNI ALLG 3 LUIS ALFREDO LUIS ALFREDO IMMNTX X W/PRV ALLGIC XTRCS NJXS COLLECTIO 27818 [facility] N VENOUS 3 [facility] BLOOD INC INC VENIPUNCT URE CULTURE 94573 COMBINED COMBINED BACTERIAL 3 PHYSICIAN PHYSICIAN S LA S LA QUANTTATI VE COLONY COUNT URINE BLOOD 19339 [facility] COUNT 3 [facility] COMPLETE INC INC AUTO&[place] [address] [facility] INFUSION 3 [facility] THERAPY INC INC PROPHYLAX IS/DX EA HOUR POSTERIOR V2632 [facility] CHAMBER 3 [facility] [place] [address] [facility] INFUSION 3 [facility] THERAPY/P INC INC ROPHYLAXI S /DX 1ST TO 1 HR GLUC BLD 15821 [facility] GLUC MNTR 3 [facility] DEV INC INC CLEARED FDA SPEC HOME USE CATARACT 60393 [facility] REMOVAL 3 [place] [address] MARNI MARNI ALLG 3 LUIS ALFREDO LUIS ALFREDO IMMNTX X W/PRV ALLGIC XTRCS NJXS COLLECTIO 63153 [facility] N VENOUS 3 [facility] BLOOD INC INC VENIPUNCT URE COMPREHEN 91141 [facility] SIVE 3 [facility] METABOLIC INC INC PANEL BLOOD 10247 [facility] COUNT 3 [facility] COMPLETE INC INC AUTO&AUTO DIFRNTL WBC CULTURE 24348 [facility] BACTERIAL 3 [facility] INC INC QUANTTATI VE COLONY COUNT URINE PROF SVCS 80879 MARNI MARNI ALLG 3 LUIS ALFREDO LUIS ALFREDO IMMNTX X W/PRV ALLGIC XTRCS NJXS PROF SVCS 90235 MARNI MARNI ALLG 3 LUIS ALFREDO LUIS ALFREDO IMMNTX X W/PRV ALLGIC XTRCS NJXS SPMTRY 69267 MARNI MARNI W/VC 3 LUIS ALFREDO LUIS ALFREDO EXPIRATOR Y LULU W/WO MXML VOL VNTJ OPH BMTRY 94400 [facility] [address] [facility] A-SCAN IO LENS PWR CHETAN GLUC BLD 11167 [facility] GLUC MNTR 3 [facility] DEV INC [place] [address] [facility] INFUSION 3 [facility] THERAPY/P INC INC ROPHYLAXI S /DX 1ST TO 1 HR CATARACT 85982 [facility] REMOVAL 3 [facility] INSERTION INC INC OF LENS POSTERIOR V2632 [facility] CHAMBER 3 [facility] [place] [address] [facility] INFUSION 3 [facility] THERAPY INC INC PROPHYLAX IS/DX EA HOUR SUSCEPTIB 58232 [facility] LTY STDY 3 [facility] ANTIMICRB INC INC IAL MICRO/AGA R DILUTJ CULTURE 40563 [facility] BACTERIAL 3 [facility] INC INC QUANTTATI VE COLONY COUNT URINE CULTURE 69781 [facility] BCT 3 [facility] ISOL&PRSM INC INC PTV ID ISOLATE EA URINE URNLS DIP 84371 [facility] STICK/TAB INTERNAL LET RGNT MED NON-AUTO W/O MICRSCP PHRM Q0513 YOUR YOUR DISPENSIN 3 PHARMACY PHARMACY G FEE [facility] INHALATIO N RX; PER 30 DAYS ALBUTEROL J7613 YOUR YOUR INHAL 3 PHARMACY PHARMACY NON-CP [facility] PROD THRU DME U DOSE 1 MG ADMN SET A7005 YOUR YOUR W/SM VOL 3 PHARMACY PHARMACY NONFILTR [facility] NEBULIZR NON-DISPB L INJECTION J1040 MARNI MARNI 3 LUIS ALFREDO LUIS ALFREDO METHYLPRE DNISOLONE ACETATE 80 MG COLLECTIO 48780 [facility] N VENOUS 3 [facility] BLOOD INC INC VENIPUNCT URE ANTIBODY 16431 [facility] BACTERIUM 3 [facility] NOT INC INC ELSEWHERE SPECIFIED C-REACTIV 77190 [facility] E PROTEIN 3 [place] [address] [facility] THYROID 3 [facility] STIMULATI [place] [address] [facility] GAMMAGLOB 3 [facility] ULIN IGE INC INC BRNCDILAT 87989 MARNI MARNI RSPSE 3 LUIS ALFREDO LOBATO SPMTRY PRE&POST- BRNCDILAT ADMN PRESSURIZ 59690 MARNI MARNI ED/NONPRE 3 LUIS ALFREDO LOBATO SSURIZED INHALATIO N TREATMENT INJECTION J2010 MARNI MARNI 3 LUIS ALFREDO LOBATO LINCOMYCI N HCL UP TO 300 MG GAMMAGLOB 09099 [facility] ULIN 3 [facility] IMMUNOGLO [place] [address] [facility] THYROXINE 3 [facility] TOTAL INC INC BLOOD 76733 [facility] COUNT 3 [facility] COMPLETE INC INC AUTO&AUTO DIFRNTL WBC RADIOLOGI 54395 [facility] C EXAM 3 [facility] CHEST 2 INC INC VIEWS FRONTAL&[place] [address] [facility] GAMMAGLOB 3 [facility] ULIN IGA INC INC IGD IGG IGM EACH COMPLEMEN 59625 [facility] T TOTAL 3 [facility] HEMOLYTIC INC INC RHEUMATOI 84874 [facility] D FACTOR 3 [facility] QUANTITAT INC INC ANNABELLA ANTINUCLE 99989 [facility] AR 3 [facility] ANTIBODIE INC INC S NADINE CYANOCOBA 87013 [facility] PRATEEK 3 [facility] VITAMIN INC INC B-12 DEMO&/POLLY 69257 MARNI GRIDER L OF PT 3 LUIS ALFREDO LOBATO UTILIZ AERSL GEN/NEB/I NHLR/IP 25 39384 [facility] HYDROXY 3 [facility] INCLUDES INC INC FRACTIONS IF PERFORMED SEDIMENTA 32663 [facility] TION RATE 3 [facility] RBC INC INC NON-AUTOM ATED THERAPEUT 05129 MARNI MARNI IC 3 LUIS ALFREDO LUIS ALFREDO PROPHYLAC TIC/DX INJECTION SUBQ/IM RADEX 81840 [facility] RIBS UNI 3 [facility] W/POSTERO INC INC ANT CH MINIMUM 3 VIEWS CULTURE 97276 COMBINED COMBINED BACTERIAL 3 PHYSICIAN PHYSICIAN S LA S LA QUANTTATI VE COLONY COUNT URINE PROF SVCS 09196 MARNI MARNI ALLG 3 LUIS ALFREDO LOBATO IMMNTX X W/PRV ALLGIC XTRCS NJXS URNLS DIP 35732 [facility] 3 VALLEY CECE STICK/TAB INTERNAL LET RGNT MEDI NON-AUTO W/O MICRSCP OPH BMTRY 70127 [facility] A-SCAN IO LENS PWR [place] OPHTH 62654 [facility] 3 EYE JANET XM&EVAL INSTITUTE COMPRE NEW PT 1/> VST BLOOD 98252 [facility] COUNT 3 [facility] COMPLETE INC INC AUTO&AUTO DIFRNTL WBC COLLECTIO 09746 [facility] N VENOUS 3 [facility] BLOOD INC INC VENIPUNCT URE COLLECTIO 96548 [facility] N VENOUS 3 [facility] BLOOD INC INC VENIPUNCT URE COMPREHEN 28224 [facility] SIVE 3 [facility] METABOLIC INC INC PANEL URNLS DIP 63220 [place] [facility] 3 VALLEY JR PETR STICK/TAB INTERNAL LET RGNT MED NON-AUTO W/O MICRSCP RADIOLOGI 03342 [facility] C EXAM 3 [facility] CHEST 2 INC INC VIEWS FRONTAL&L ATERAL BLOOD 46232 [facility] COUNT 3 [facility] COMPLETE INC INC AUTO&AUTO DIFRNTL WBC PROF SVCS 35786 MARNI MARNI ALLG 3 LUIS ALFREDO LUIS ALFREDO IMMNTX X W/PRV ALLGIC XTRCS NJXS PROF SVCS 73889 MARNI MARNI ALLG 3 LUIS ALFREDO LUIS ALFREDO IMMNTX X W/PRV ALLGIC XTRCS NJXS BLD GLU A4253 M E D M E D TEST/REAG 3 SUPPLIES SUPPLIES T STRIPS HOME BLD GLU MON-50 LANCETS A4259 M E D M E D PER BOX 3 SUPPLIES SUPPLIES OF 100 PREPJ& 57104 MARNI MARNI ALLERGEN 3 LUIS ALFREDO LUIS ALFREDO IMMUNOTHE RAPY 1/EVICTION SPECIALIST ANTIGEN PROF [facility] 68734 MARNI MARNI ALLG 3 LUIS ALFREDO LUIS ALFREDO IMMNTX X W/PRV ALLGIC XTRCS NJXS PROF [facility] 50324 MARNI MARNI ALLG 3 LUIS ALFREDO LUIS ALFREDO IMMNTX X W/PRV ALLGIC XTRCS NJXS COLLECTIO 18074 [facility] N VENOUS 3 [facility] BLOOD INC INC VENIPUNCT URE COMPREHEN 62488 [facility] SIVE 3 [facility] METABOLIC INC INC PANEL BLOOD 54399 [facility] COUNT 3 [facility] COMPLETE INC INC AUTO&AUTO DIFRNTL WBC SUSCEPTIB 00290 [facility] LTY STDY 3 [facility] ANTIMICRB INC INC IAL MICRO/AGA R DILUTJ URNLS DIP 25051 [facility] STICK/TAB INC INC LET REAGENT AUTO MICROSCOP Y CULTURE 90623 [facility] BACTERIAL 3 [facility] INC INC QUANTTATI VE COLONY COUNT URINE CULTURE 94504 [facility] BCT 3 [facility] ISOL&PRSM INC INC PTV ID ISOLATE EA URINE DXA BONE 85698 [facility] DENSITY 3 MEDICAL AYLA STUDY 1/> IMAGING SITES ASS AXIAL SKEL CANE INCL E0100 CRISTIN CRISTIN CANES 3 HOME HOME ALL MEDICAL MEDICAL MATERIAL EQUIPME EQUIPME ADJUSTBLE /FIX W/TIP RADIOLOGI 75641 [facility] C EXAM 3 MEDICAL AYLA CHEST 2 IMAGING VIEWS ASS FRONTAL&L ATERAL RADIOLOGI 29456 [facility] C EXAM 3 MEDICAL AYLA KNEE IMAGING COMPLETE ASS 4/MORE VIEWS PROF [facility] 98968 MARNI MARNI ALLG 3 LUIS ALFREDO LUIS ALFREDO IMMNTX X W/PRV ALLGIC XTRCS NJXS PROF [facility] 31358 MARNI MARNI ALLG 3 LUIS ALFREDO LUIS ALFREDO IMMNTX X W/PRV ALLGIC XTRCS NJXS URNLS DIP 03767 [facility] 3 VALLEY CECE STICK/TAB INTERNAL LET RGNT MEDI NON-AUTO W/O MICRSCP CULTURE 41249 COMBINED COMBINED BACTERIAL 3 PHYSICIAN PHYSICIAN S LA S LA QUANTTATI VE COLONY COUNT URINE PROF [facility] 17548 MARNI MARNI ALLG 3 LUIS ALFREDO LUIS ALFREDO IMMNTX X W/PRV ALLGIC XTRCS NJXS COLLECTIO 63373 [facility] N VENOUS 3 [facility] [place] [address] [facility] BLOOD/URI 3 [facility] C ACID INC INC PROF [facility] 95724 MARNI MARNI ALLG 3 LUIS ALFREDO LUIS ALFREDO IMMNTX X W/PRV ALLGIC XTRCS NJXS PROF [facility] 27671 MARNI MARNI ALLG 3 LUIS ALFREDO LUIS ALFREDO IMMNTX X W/PRV ALLGIC XTRCS NJXS PROF [facility] 57988 MARNI MARNI ALLG 3 LUIS ALFREDO LUIS ALFREDO IMMNTX X W/PRV ALLGIC XTRCS NJXS PROF [facility] 05483 MARNI MARNI ALLG 3 LUIS ALFREDO LUIS ALFREDO IMMNTX X W/PRV ALLGIC XTRCS NJXS PROF [facility] 14702 MARNI MARNI ALLG 3 LUIS ALFREDO LUIS ALFREDO IMMNTX X W/PRV ALLGIC XTRCS NJXS PERCUTANE 28256 MARNI MARNI OUS TESTS 3 LUIS ALFREDO LUIS ALFREDO W/ALLERGE ALVARADO EXTRACTS SPMTRY 05931 MARNI MARNI W/VC 3 LUIS ALFREDO LUIS ALFREDO EXPIRATOR Y LULU W/WO MXML VOL VNTJ BLD GLU A4253 M E D M E D TEST/REAG 3 SUPPLIES SUPPLIES T STRIPS HOME BLD GLU MON-50 LANCETS A4259 M E D M E D PER BOX 3 SUPPLIES SUPPLIES OF 100 NORMAL A4256 M E D M E D LOW AND 3 SUPPLIES SUPPLIES HIGH CALIBRATO R SOLUTION/ CHIPS CICERO-PO A4258 M E D M E D WERED 3 SUPPLIES SUPPLIES DEVICE FOR LANCET EACH REPL DEYSI A4235 M E D M E D LITHIUM 3 SUPPLIES SUPPLIES MED NECES OSCAR BG MON OWN PT EA FOR DIAB A5513 CLINIC CLINIC ONLY MX 3 PHARMACY PHARMACY DNSITY INSRT CSTM MOLD CSTM EA DIAB ONLY A5500 CLINIC CLINIC FIT CSTM 3 PHARMACY PHARMACY PREP&SPL SHOE MX DNSITY INSRT SPMTRY 38362 MARNI MARNI W/VC 3 LUIS ALFREDO LUIS ALFREDO EXPIRATOR Y LULU W/WO MXML VOL VNTJ CYSTOURET 52192 [facility] PHILIP JR HROSCOPY 3 [facility] P SCREENING G0202 [facility] 3 MEDICAL AYLA MAMMOGRAP IMAGING HY DURGA ASS INCL CAD WHEN PERFORMD LOC Q9965 [facility] 100-199 3 [facility] MG/ML INC INC IODINE CONCENTRA TION PER ML NJX 68570 [facility] RETROGRAD 3 MEDICAL AYLA E IMAGING URETHROCS ASS TOGRAPY URETHROCY 05343 [facility] STOGRAPHY 3 [facility] [place] [address] [facility] TRANSVAGI 3 [facility] NAL INC INC [facility]- 02255 [facility] [facility] AIDED 3 MEDICAL AYLA DETECTION IMAGING ASS SCREENING MAMMOGRAP HY CULTURE 67029 COMBINED COMBINED BACTERIAL 3 PHYSICIAN PHYSICIAN S LA S LA QUANTTATI VE COLONY COUNT URINE INJECTION J0696 [facility] 3 VALLEY CECE CEFTRIAXO INTERNAL NE SODIUM MEDI PER 250 MG URNLS DIP 32020 [facility] [place] 3 VALLEY VALLEY STICK/TAB INTERNAL INTERNAL LET RGNT MEDI MEDI NON-AUTO W/O MICRSCP IM ADM 74553 [facility] PRQ ID 3 VALLEY CECE SUBQ/IM INTERNAL NJXS [address] [facility] 36402 [place] DISCHARGE 3 [facility] DAY INTERNAL MANAGEMEN MED T 30 MIN/< SBSQ [address] CARE/DAY INTERNAL 25 MED MINUTES SBSQ [address] CARE/DAY INTERNAL 25 MED MINUTES SBSQ [address] CARE/DAY INTERNAL 25 MED MINUTES 15507 [facility] RETROPERI 3 MEDICAL AYLA TONEAL IMAGING REAL TIME ASS W/IMAGE COMPLETE FULL FACE A7030 [facility]ERTY LIBERTY MASK 3 MEDICAL MEDICAL USED SUPPLY SUPPLY W/POS INC. INC. [employer] DEVICE EA SBSQ [address] CARE/DAY INTERNAL 25 MED MINUTES INITIAL [address] CARE/DAY INTERNAL 50 MED MINUTES SCREEN Q0091 [facility] PAP 3 [facility] SMEAR; CLINIC OF OBTAIN SONIA PREP &C ONVEY TO LAB URNLS DIP 33355 [facility] STICK/TAB CLINIC OF LET RGNT SONIA NON-AUTO W/O MICRSCP CULTURE 14633 COMBINED COMBINED BACTERIAL 3 PHYSICIAN PHYSICIAN S LA S LA QUANTTATI VE COLONY COUNT URINE CERV/VAGI G0101 [facility] NAL 3 [facility] CANCER CLINIC OF SCR; SONIA PELV&CLIN BREAST EXAM SCR G0145 PATHOLOGY PATHOLOGY CYTOPATH 3 & & CERV/VAG CYTOLOGY CYTOLOGY SCR LAB LAB AUTO&MNL RSCR PHYS CULTURE 54979 COMBINED COMBINED BACTERIAL 3 PHYSICIAN PHYSICIAN S LA S LA QUANTTATI VE COLONY COUNT URINE URNLS DIP [address] CECE STICK/TAB INTERNAL LET RGNT MEDI NON-AUTO W/O MICRSCP CULTURE 54536 [facility] BACTERIAL 3 [facility] INC INC QUANTTATI VE COLONY COUNT URINE CULTURE 94553 [facility] BCT 3 [facility] ISOL&PRSM INC INC PTV ID ISOLATE EA URINE COLLECTIO 36838 [facility] N VENOUS 3 [facility] BLOOD INC INC VENIPUNCT URE COMPREHEN 55804 [facility] SIVE 3 [facility] [place] [address] [facility] THYROID 3 [facility] STIMULATI INC INC NG HORMONE TSH ALBUMIN 81969 [facility] URINE 3 [facility] MICROALBU INC INC MIN QUANTIATI VE LIPID 91278 [facility] PANEL 3 [facility] INC INC HEMOGLOBI 15853 [facility] N 3 [facility] GLYCOSYLA INC INC ML A1C BLOOD 95605 [facility] COUNT 3 [facility] COMPLETE INC INC AUTO&AUTO DIFRNTL WBC SUSCEPTIB 11636 [facility] LTY STDY 3 [facility] ANTIMICRB INC INC IAL MICRO/AGA R DILUTJ INITIAL 77397 [facility] INPATIENT 3 PSC CONSULT NEW/ESTAB PT 80 MIN SBSQ 07107 [facility] HOSPITAL 3 PSC CARE/DAY 35 MINUTES SBSQ 58700 INPATIENT [facility] 3 CARE, CARE/DAY PLLC 25 MINUTES SBSQ 23397 INPATIENT [facility] 3 CARE, CARE/DAY PLLC 35 MINUTES NEBULIZER E0570 CRISTIN AMARAL WITH 3 HOME HOME COMPRESSO MEDICAL MEDICAL R EQUIPME EQUIPME SBSQ 81705 INPATIENT [facility] 3 CARE, CARE/DAY PLLC 25 MINUTES SBSQ 23654 INPATIENT [facility] 3 CARE, CARE/DAY PLLC 35 MINUTES INITIAL 32107 INPATIENT [facility] 3 CARE, CARE/DAY PLLC 50 MINUTES BLD GLU A4253 M E D M E D TEST/REAG 2 SUPPLIES SUPPLIES T STRIPS HOME BLD GLU SUN- LANCETS A4259 M E D M E D PER BOX 2 SUPPLIES SUPPLIES OF 100 [place] [address] [facility] INFUSION 2 [facility] THERAPY INC INC PROPHYLAX IS/DX EA HOUR BASIC 75530 [facility] METABOLIC 2 [facility] PANEL INC INC CALCIUM TOTAL CULTURE 58425 [facility] BACTERIAL 2 [facility] INC INC QUANTTATI VE COLONY COUNT URINE CULTURE 96720 [facility] BCT 2 [facility] ISOL&PRSM INC INC PTV ID ISOLATE EA URINE INJECTION J2405 [facility] 2 [facility] ONDANSETR INC INC ON HCL PER 1 [place] [address] [facility] INFUSION 2 [facility] THERAPY/P INC INC ROPHYLAXI S /DX 1ST TO 1 HR BLOOD 37448 [facility] COUNT 2 [facility] COMPLETE INC INC AUTO&AUTO DIFRNTL WBC SUSCEPTIB 66812 [facility] LTY STDY 2 [facility] ANTIMICRB INC INC IAL MICRO/AGA R DILUTJ URNLS DIP 43851 [facility] 2 [facility] STICK/TAB INC INC LET REAGENT AUTO MICROSCOP Y RADIOLOGI 22240 [facility] C EXAM 2 [facility] CHEST 2 INC INC VIEWS FRONTAL&L ATERAL THERAPEUT 63243 [facility] IC 2 [facility] INJECTION INC INC IV PUSH EACH NEW DRUG HEADGEAR A7035 [facility] USED 2 MEDICAL MEDICAL W/POSITIV SUPPLY SUPPLY E [employer] INC. INC. PRESSURE DEVICE NASL A7034 [facility] INTRFCE 2 MEDICAL MEDICAL POS ARWAY SUPPLY SUPPLY PRSS INC. INC. DEVC W/WO HEAD STRAP RADEX 31577 [facility] HUMERUS 2 MEDICAL AYLA MINIMUM 2 IMAGING VIEWS ASS RADEX 69254 [place] FINGR 2 MEDICAL AYLA MINIMUM 2 IMAGING VIEWS ASS RADIOLOGI 53088 [facility] C 2 MEDICAL AYLA EXAMINATI IMAGING ON KNEE ASS 1/2 VIEWS BLD GLU A4253 [facility] TEST/REAG 2 CVS CVS T STRIPS PHARMACY PHARMACY HOME BLD LLC, D LLC, D GLU MON-50 NEBULIZER E0570 CRISTIN AMARAL WITH 2 HOME HOME COMPRESSO MEDICAL MEDICAL R EQUIPME EQUIPME ANES 47957 [facility] [place] LOWER 2 [place] JAM INTESTINE ANESTHESI A ENDOSCOPY DISTAL DUODENUM COLONOSCO 01225 BUDDHISM BUDDHISM PY 2 PHYS SURG PHYS SURG W/BIOPSY CTR CTR SINGLE/MU LTIPLE EGD 93265 COLORECTA PALOMO TRANSORAL 2 L SURGIAL CATRACHITO BIOPSY SINGLE/MU ASSOCIATE LTIPLE ENDOSCOPY 55331 BUDDHISM BUDDHISM UPPER 2 PHYS SURG PHYS SURG SMALL CTR CTR IN[place] [address] [facility] SURG 2 BUDDHISM BUDDHISM PATHOLOGY HOSP HOSP GROSS&SHANTHI ROSCOPIC EXAM RADEX 00893 [facility] SMALL 2 BUDDHISM BUDDHISM INTESTINE HOSP HOSP W/MULTIPL E SERIAL IMAGES SPECIAL 45966 [facility] STAIN 2 BUDDHISM BUDDHISM GROUP 1 HOSP HOSP MICROORGA NISMS I&R ECG 45535 [facility] ROUTINE 2 KAMAR DEIDRA ECG EMERGENCY W/LEAST PHYS 12 LDS I&R ONLY RADIOLOGI 45548 [facility] [place] GARCIA C 2 RADIOLOGY RAY EXAMINATI ON CHEST SINGLE VIEW FRONTAL NEBULIZER E0570 CRISTIN CRISTIN WITH 2 HOME HOME COMPRESSO MEDICAL MEDICAL R EQUIPME EQUIPME BLD GLU A4253 [facility] TEST/REAG 2 CVS CVS T STRIPS PHARMACY PHARMACY HOME BLD LLC, D LLC, D GLU MON-50 CYANOCOBA 14369 LAB [facility] PRATEEK 2 AMERIC AMERIC VITAMIN HOLDING HOLDING B-12 [place] [address] LAB [facility] LAB Y[facility] LIPASE 2 AMERIC AMERIC HOLDING HOLDING ADMINISTR G0008 [facility] BAZZ[facility] ATION OF 2 HEALTHCAR TAR INFLUENZA E CENTER VIRUS VACCINE HEMOGLOBI 36472 LAB [facility] LAB YANIRA N 2 AMERIC AMERIC GLYCOSYLA HOLDING HOLDING ML A1C INFLUENZA Q2036 [facility] BAZZ[facility] VACC 2 HEALTHCAR TAR SPLIT E CENTER VIRUS 3 YRS & > [place] [address] LAB Y[facility]IRA LAB Y[facility] FOLIC 2 AMERIC AMERIC [place] [address] LAB Y[facility]IR[facility] LAB Y[facility] AMYLASE 2 AMERIC AMERIC HOLDING HOLDING ACUTE 70894 LAB YANIR[facility] LAB YANIRA HEPATITIS 2 AMERIC AMERIC PANEL HOLDING HOLDING NEBULIZER E0570 CRISTIN AMARAL WITH 2 HOME HOME COMPRESSO MEDICAL MEDICAL R EQUIPME EQUIPME HOME E0607 [facility] BLOOD 2 CVS CVS GLUCOSE PHARMACY PHARMACY MONITOR LLC, D LLC, D LANCETS A4259 [facility] PER BOX 2 CVS CVS OF 100 PHARMACY PHARMACY LLC, D LLC, D COMPREHEN 01814 LAB [facility] Y[facility] SIVE 2 AMERIC [employer] METABOL[place] [address] LAB Y[facility]IR[facility] THYROID 2 AMERIC AMERIC STIMULATI HOLDING HOLDING NG HORMONE TSH HEPATITIS [id number] [facility] ANTIBODY 2 [employer] HAAB IGM HOLDING HOLDING ANTIBODY SPRING-PO A4258 M E D M E D WERED 2 SUPPLIES SUPPLIES DEVICE FOR LANCET EACH BLD GLU A4253 M E D M E D TEST/REAG 2 SUPPLIES SUPPLIES T STRIPS HOME BLD GLU MON-50 LANCETS A4259 M E D M E D PER BOX 2 SUPPLIES SUPPLIES OF 100 NORMAL A4256 M E D M E D LOW AND 2 SUPPLIES SUPPLIES HIGH CALIBRATO R SOLUTION/ CHIPS REPL DEYSI A4235 M E D M E D LITHIUM 2 SUPPLIES SUPPLIES MED NECES OSCAR BG MON OWN PT EA SET-UP Q0092 [facility] PORTABLE 2 MOBILE MOBILE X-RAY DIAGNOSTI DIAGNOSTI EQUIPMENT C SE C SE RADEX 98279 [facility] SPINE 2 MOBILE MOBILE CERVICAL DIAGNOSTI DIAGNOSTI 2 OR 3 C SE C SE VIEWS TRANS R0070 [facility] PRTBL 2 MOBILE MOBILE X-RAY DIAGNOSTI DIAGNOSTI EQP&PERS C SE C SE OSCAR/NRS OSCAR-TRIP 1 PT SBSQ 65791 [facility] 2 PSC CARE/DAY 25 MINUTES SBSQ 95058 [facility] 2 PSC CARE/DAY 25 MINUTES SBSQ 34768 INPATIENT [facility] 2 CARE, CARE/DAY PLLC 25 MINUTES ECG 88136 STAnnita HNACOCK ROUTINE 2 FORTINO LEON ECG CARDIOLOG W/LEAST Y CLINIC 12 LDS I&[place] [address] [facility] [place] [facility] HEAD/BRAI 2 RADIOLOGY JULIÁN N W/O CONTRAST MATERIAL SBSQ 56084 [facility] 2 PSC CARE/DAY 25 MINUTES SBSQ 44406 [facility] 2 PSC CARE/DAY 25 MINUTES NEBULIZER E0570 CRISTIN AMARAL WITH 2 HOME HOME [facility] R EQUIPME EQUIPME DUP-SCAN 62910 [facility] [place] BRIZUELA JAM XTR VEINS 2 RADIOLOGY UNILATERA L/LIMITED STUDY ECG 03024 [facility] ROUTINE 2 MOBILE MOBILE ECG DIAGNOSTI DIAGNOSTI W/LEAST C SE C SE 12 LDS TRCG ONLY W/O I&R RADIOLOGI 92816 [facility] C EXAM 2 MOBILE MOBILE CHEST 2 DIAGNOSTI DIAGNOSTI VIEWS C SE C SE FRONTAL&L ATERAL TRANS R0075 [facility] PRTBL 2 MOBILE MOBILE XRAY DIAGNOSTI DIAGNOSTI EQP&PERS C SE C SE OSCAR/NRS OSCAR-TRIP> 1 PT SET-UP Q0092 [facility] PORTABLE 2 MOBILE MOBILE X-RAY DIAGNOSTI DIAGNOSTI EQUIPMENT C SE C SE SBSQ 65179 [facility] 2 PSC CARE/DAY 35 MINUTES COLLECTIO 16235 [facility] N VENOUS 2 [facility] BLOOD INC INC VENIPUNCT URE DNA 78911 [facility] ANTIBODY 2 [facility] OMAHA/DO INC INC UBLE STRANDED DNA 27841 [facility] ANTIBODY 2 [facility] SINGLE INC INC STRANDED IM ADM 67935 [facility] PRQ ID 2 [facility] SUBQ/IM INTERNAL NJXS 1 MEDI VACCINE SEDIMENTA 67755 [facility] TION RATE 2 [facility] RBC INC INC NON-AUTOM ATED SKIN TEST 46787 [facility] 2 VALLEY CECE TUBERCULO INTERNAL SIS MEDI INTRADERM AL BASIC 90794 [facility] METABOLIC 2 [facility] PANEL INC INC CALCIUM TOTAL ANTINUCLE 81622 [facility] AR 2 [facility] ANTIBODIE INC INC S NADINE CARCINOEM 44921 [facility] BRYONIC 2 [facility] [place] [address] [facility] LIPASE 2 [facility] INC INC COLLECTIO 83891 [facility] N VENOUS 2 [facility] BLOOD INC INC VENIPUNCT URE BLOOD 94910 [facility] COUNT 2 [facility] COMPLETE INC INC AUTO&AUTO DIFRNTL WBC COMPREHEN 57113 [facility] SIVE 2 [facility] [place] [address] [facility] AMYLASE 2 [place] [address] [facility] THYROID 2 [facility] INC NG HORMONE TSH NEBULIZER E0570 CRISTIN AMARAL WITH 2 HOME [facility] [place] [address] [facility] MAXILLOFA 2 Y Y [facility] W/CONTRAS T MATERIAL BASIC 33508 [facility] METABOLIC 2 Y Y PANEL [facility]ALTH [facility] CALCIUM TOTAL COLLECTIO 26478 [facility] N VENOUS 2 Y Y BLOOD HEALTH SYSTEM VENIPUNCT URE INJECTION J2405 [facility] LOCM Q9967 [facility] [phone] 2 Y Y MG/ML HEALTH SYSTEM IODINE CONCENTRA TION PER ML BLOOD 43167 [facility] COUNT 2 Y Y COMPLETE HEALTH SYSTEM AUTO&AUTO DIFRNTL WBC THERAPEUT 05662 [facility] IC 2 Y Y INJECTION HEALTH SYSTEM IV PUSH EACH NEW DRUG INJECTION J2270 [facility] MORPHINE 2 Y Y [facility] UP TO [address] [place] [address] [facility] INFUSION 2 Y Y THERAPY/P [facility]ALTH SYSTEM ROPHYLAXI S /DX 1ST TO 1 HR PREPJ& 55974 MARNI GRIDER ALLERGEN 2 LUIS ALFREDO LUIS ALFREDO IMMUNOTHE RAPY 1/EVICTION SPECIALIST ANTIGEN NEBULIZER E0570 CRISTIN AMARAL WITH 2 HOME HOME [facility] R EQUIPME EQUIPME PROF SVCS 43406 MARNI AMRNI ALLG 2 LUIS ALFREDO LUIS ALFREDO IMMNTX X W/PRV ALLGIC XTRCS NJXS PROF [facility] 15040 MARNI MARNI ALLG 2 LUIS ALFREDO LUIS ALFREDO IMMNTX X W/PRV ALLGIC XTRCS NJXS PROF [facility] 59427 MARNI MARNI ALLG 2 LUIS ALFREDO LUIS ALFREDO IMMNTX X W/PRV ALLGIC XTRCS NJXS BLD GLU A4253 M E D M E D TEST/REAG 2 SUPPLIES SUPPLIES T STRIPS HOME BLD GLU MON-50 LANCETS A4259 M E D M E D PER BOX 2 SUPPLIES SUPPLIES OF 100 NORMAL A4256 M E D M E D LOW AND 2 SUPPLIES SUPPLIES HIGH CALIBRATO R SOLUTION/ CHIPS PROF [facility] 44796 MARNI MARNI ALLG 2 LUIS ALFREDO LUIS ALFREDO IMMNTX X W/PRV ALLGIC XTRCS NJXS PROF [facility] 94659 MARNI MARNI ALLG 2 LUIS ALFREDO LUIS ALFREDO IMMNTX X W/PRV ALLGIC XTRCS NJXS ECG 24192 MARLO FATIMA ROUTINE 2 EMERGENCY PETR ECG SERVICES W/LEAST 12 LDS I&[place] [address] [facility]OPONIN [facility] QUANTITAT INC INC ANNABELLA NATRIURET 64247 [facility] IC [facility] PEPTIDE INC INC BLOOD 75613 [facility] COUNT 2 [facility] COMPLETE INC INC AUTO&AUTO DIFRNTL WBC COMPREHEN 14236 [facility] SIVE 2 [facility] METABOLIC INC INC PANEL CREATINE 77367 [facility] KINASE MB 2 [facility] FRACTION INC INC ONLY ECG 01360 [facility] ROUTINE 2 [facility] ECG INC INC W/LEAST 12 LDS TRCG ONLY W/O I&R THER 41711 [facility] PROPH/DX 2 [facility] NJX IV INC INC PUSH SINGLE/1S T SBST/DRUG RADIOLOGI 13749 [facility] C 2 [facility] EXAMINATI INC INC ON CHEST SINGLE VIEW FRONTAL CREATINE 43630 [facility] KINASE 2 [facility] [place] [address] MARNI MARNI ALLG 2 LUIS ALFREDO LUIS ALFREDO IMMNTX X W/PRV ALLGIC XTRCS NJXS PROF [facility] 76606 MARNI MARNI ALLG 2 LUIS ALFREDO LUIS ALFREDO IMMNTX X W/PRV ALLGIC XTRCS NJXS THER 41791 [facility] PROPH/DX 2 [facility] NJX IV INC INC PUSH SINGLE/1S T SBST/DRUG COMPREHEN 08262 [facility] SIVE 2 [facility] METABOLIC INC INC PANEL INJECTION J2405 [facility] 2 [facility] ONDANSETR INC INC ON HCL PER 1 MG BLOOD 83820 [facility] COUNT 2 [facility] COMPLETE INC INC AUTO&AUTO DIFRNTL WBC SUSCEPTIB 86844 [facility] LTY STDY 2 [facility] ANTIMICRB INC INC IAL MICRO/AGA R DILUTJ URNLS DIP 66564 [facility]ENDING 2 [facility] HEARTS STICK/TAB INC LET REAGENT AUTO MICROSCOP Y THERAPEUT 05074 [facility] IC [facility] INJECTION INC [place] [address] SHELLIECAL HOMER ABDOMEN & 2 MEDICAL A[facility]LA PELVIS IMAGING W/O ASS CONTRAST MATERIAL CULTURE 51476 [facility] BACTERIAL 2 [facility] INC INC QUANTTATI VE COLONY COUNT URINE CULTURE 31428 [facility] BCT 2 [facility] ISOL&PRSM INC INC PTV ID ISOLATE EA URINE 3D 31043 [facility] RENDERING 2 MEDICAL AYLA IMAGING W/INTERP& ASS POSTPROC DIFF WORK STATION PROF [facility] 75736 MARNI MARNI ALLG 2 LUIS ALFREDO LUIS ALFREDO IMMNTX X W/PRV ALLGIC XTRCS NJXS PROF [facility] 08479 MARNI MARNI ALLG 2 LUIS ALFREDO LUIS ALFREDO IMMNTX X W/PRV ALLGIC XTRCS NJXS NEBULIZER E0570 CRISTIN AMARAL WITH 2 HOME [facility] EQUIPME EQUIPME PROF [facility] 80632 MARNI MARNI ALLG 2 LUIS ALFREDO LUIS ALFREDO IMMNTX X W/PRV ALLGIC XTRCS NJXS PROF [facility] 07446 MARNI MARNI ALLG 2 LUIS ALFREDO LUIS ALFREDO IMMNTX X W/PRV ALLGIC XTRCS NJXS PROF [facility] 25647 MARNI MARNI ALLG 2 LUIS ALFREDO LUIS ALFREDO IMMNTX X W/PRV ALLGIC XTRCS NJXS PROF [facility] 08676 MARNI MARNI ALLG 2 LUIS ALFREDO LUIS ALFREDO IMMNTX X W/PRV ALLGIC XTRCS NJXS RADEX 56379 [facility] FOOT 2 [facility] COMPLETE INC INC MINIMUM 3 VIEWS COMPREHEN 68635 [facility] SIVE 2 [facility] METABOLIC INC INC PANEL SEDIMENTA 51007 [facility] TIKATI RATE 2 [facility] RBC INC INC NON-AUTOM ATED BLOOD 59363 [facility] COUNT 2 [facility] COMPLETE INC INC AUTO&AUTO DIFRNTL WBC URNLS DIP 31730 [facility] 2 [facility] STICK/TAB INC INC [place] [address] [facility] BLOOD/URI 2 [facility] C ACID INC INC PROF [facility] 58678 MARNI MARNI ALLG 2 LUIS ALFREDO LUIS ALFREDO IMMNTX X W/PRV ALLGIC XTRCS NJXS PROF [facility] 00975 MARNI MARNI ALLG 2 LUIS ALFREDO LUIS ALFREDO IMMNTX X W/PRV ALLGIC XTRCS NJXS NEBULIZER E0570 CRISTIN AMARAL WITH 2 HOME [facility] EQUIPME EQUIPME PROF [facility] 52012 MARNI MARNI ALLG 2 LUIS ALFREDO LUIS ALFREDO IMMNTX X W/PRV ALLGIC XTRCS NJXS PROF [facility] 50758 MARNI MARNI ALLG 2 LUIS ALFREDO LUIS ALFREDO IMMNTX X W/PRV ALLGIC XTRCS NJXS PROF [facility] 56094 MARNI MARNI ALLG 2 LUIS ALFREDO LUIS ALFREDO IMMNTX X W/PRV ALLGIC XTRCS NJXS PROF [facility] 62360 MARNI MARNI ALLG 2 LUIS ALFREDO LUIS ALFREDO IMMNTX X W/PRV ALLGIC XTRCS NJXS PROF [facility] 74547 MARNI MARNI ALLG 2 LUIS ALFREDO LUIS ALFREDO IMMNTX X W/PRV ALLGIC XTRCS NJXS PREPJ& 95448 MARNI MARNI ALLERGEN 2 LUIS ALFREDO LUIS ALFREDO IMMUNOTHE RAPY 1/EVICTION SPECIALIST ANTIGEN CULTURE 43450 [facility] BACTERIAL [facility] INC INC QUANTTATI VE COLONY COUNT URINE CULTURE 40238 [facility] BCT 2 [facility] ISOL&PRSM INC INC PTV ID ISOLATE EA URINE PROF [facility] 54087 MARNI MARNI ALLG 2 LUIS ALFREDO LUIS ALFREDO IMMNTX X W/PRV ALLGIC XTRCS NJXS LIPID 60399 [facility] PANEL 2 [facility] INC INC BLOOD 18100 [facility] COUNT 2 [facility] COMPLETE INC INC AUTO&AUTO DIFRNTL WBC SUSCEPTIB 24159 [facility] LTY STDY 2 [facility] ANTIMICRB INC INC IAL MICRO/AGA R DILUTJ URNLS DIP 79268 [facility] 2 [facility] STICK/TAB INC INC LET REAGENT AUTO MICROSCOP Y COLLECTIO 44047 [facility] N VENOUS 2 [facility] BLOOD INC INC VENIPUNCT URE COMPREHEN 62072 [facility] SIVE 2 [facility] [place] [address] [facility] THYROID 2 [facility] STIMULATI INC INC NG HORMONE TSH SPMTRY 39425 MARNI MARNI W/VC 2 LUIS ALFREDO LUIS ALFREDO EXPIRATOR Y LULU W/WO MXML VOL VNTJ PROF [facility] 34567 MARNI MARNI ALLG 2 LUIS ALFREDO LUIS ALFREDO IMMNTX X W/PRV ALLGIC XTRCS NJXS PROF [facility] 53030 MARNI MARNI ALLG 2 LUIS ALFREDO LUIS ALFREDO IMMNTX X W/[place] [address] MARNI MARNI ALLG 2 LUIS ALFREDO LOBATO IMMNTX X W/PRV ALLGIC XTRCS NJXS BLOOD 31558 [facility] COUNT 2 [facility] COMPLETE INC INC AUTO&AUTO DIFRNTL WBC GLUC BLD 45387 [facility] GLUC MNTR 2 [facility] DEV INC INC CLEARED FDA [facility]C [facility] G0378 [facility] OBSERVATI 2 [facility] ON INC INC SERVICE PER HOUR COLLECTIO 37126 [facility] N VENOUS 2 [facility] BLOOD INC INC VENIPUNCT URE COMPREHEN 68854 [facility] SIVE 2 [facility] METABOLIC INC INC PANEL INJECTION J2405 [facility] 2 [facility] ONDANSETR INC INC ON HCL PER 1 MG OBSERVATI 79207 [place] [facility] CARE 2 [facility] CATRACHITO DISCHARGE INTERNAL MED MANAGEMEN T NEBULIZER E0570 CRISTIN AMARAL WITH 2 HOME HOME [facility] R EQUIPME EQUIPME PRESSURIZ 56881 [facility] ED/NONPRE 2 [facility] SSURIZED INC INC INHALATIO N TREATMENT NONINVASI 29074 [facility] VE 2 [facility] EAR/PULSE INC INC OXIMETRY SINGLE DETER PROF [facility] 87185 MARNI MARNI ALLG 2 LUIS ALFREDO LOBATO IMMNTX X W/PRV ALLGIC XTRCS NJXS URNLS DIP 23357 [facility] 2 [facility] STICK/TAB INC INC LET REAGENT AUTO MICROSCOP Y URNLS DIP 25684 [place] [facility] STICK/TAB INTERNAL INTERNAL LET RGNT MED MED NON-AUTO W/O MICRSCP CUL BACT 71156 [facility] XCPT 2 [facility] URINE INC INC BLOOD/STO OL AEROBIC ISOL CUL BACT 94862 [facility] AEROBIC 2 [facility] ADDL INC INC METHS DEFINITIV E EA ISOL CULTURE 35692 [facility] BACTERIAL 2 [facility] INC INC QUANTTATI VE COLONY COUNT URINE HOSPITAL G0378 [facility] OBSERVATI 2 [facility] ON INC INC SERVICE PER HOUR INJECTION J2405 [facility] 2 [facility] ONDANSETR INC INC ON HCL PER 1 MG COMPREHEN 92629 [facility] SIVE 2 [facility] METABOLIC INC INC PANEL COLLECTIO 86904 [facility] N VENOUS 2 [facility] BLOOD INC INC VENIPUNCT URE SEDIMENTA 61115 [facility] TIKATI RATE 2 [facility] RBC INC INC NON-AUTOM ATED GLUC BLD 12457 [facility] GLUC MNTR 2 [facility] DEV INC INC CLEARED FDA SPEC HOME USE BLOOD 24008 [facility] COUNT 2 [facility] COMPLETE INC INC AUTO&AUTO DIFRNTL WBC SUSCEPTIB 04464 [facility] LTY STDY 2 [facility] ANTIMICRB INC INC IAL MICRO/AGA R DILUTJ INITIAL 83705 [place] SCOTTY DALLASATI 2 ZACKERY EDWARD PETR ON INTERNAL CARE/DAY MED 30 MINUTES THERAPEUT 38767 [facility] IC 2 [facility] PROPHYLAC INC INC TIC/DX INJECTION SUBQ/IM PROF [facility] 34757 MARNI MARNI ALLG 2 LUIS ALFREDO LUIS ALFREDO IMMNTX X W/PRV ALLGIC XTRCS NJXS PROF [facility] 32352 MARNI MARNI ALLG 2 LUIS ALFREDO LUIS ALFREDO IMMNTX X [place] [address] [facility] UREA 2 [facility] NITROGEN INC INC QUANTITAT ANNABELLA LOCM Q9967 [facility] 300-399 2 [facility] MG/ML INC INC IODINE CONCENTRA TION PER ML CREATININ 67737 [facility] E BLOOD 2 [facility] INC INC 3D 08644 [facility] RENDERING 2 [facility] W/INTERP INC INC & POSTPROCE SS SUPERVISI ON COLLECTIO 25325 [facility] N VENOUS 2 [facility] [address] [facility] HEAD/BRAI 2 [facility] N W/O & INC INC W/[place] [address] [facility] MAXILLOFA 2 [facility] CIAL W/O INC INC & [place] [address] [facility] [facility] HEAD/BRAI 2 MEDICAL AYLA N W/O IMAGING CONTRAST ASS MATERIAL 3D 48841 [facility] RENDERING 2 [facility] INC INC W/INTERP& POSTPROC DIFF WORK STATION CT ORBIT 30127 [place] [facility] SELLA/POS 2 MEDICAL [facility] T IMAGING FOSSA/EAR ASS W/O & W/[place] [address] [place] [facility] MAXILLOFA 2 MEDICAL A[facility]LA CIAL W/O IMAGING CONTRAST ASS MATERIAL [facility] A4258 M E D M E D WERED 2 SUPPLIES SUPPLIES DEVICE FOR LANCET EACH REPL DEYSI A4233 M E D M E D ALKALINE 2 SUPPLIES SUPPLIES NOT J CELL OSCAR BG MON OWND PT BLD GLU A4253 M E D M E D TEST/REAG 2 SUPPLIES SUPPLIES T STRIPS HOME BLD GLU MON-50 LANCETS A4259 M E D M E D PER BOX 2 SUPPLIES SUPPLIES OF 100 NORMAL A4256 M E D M E D LOW AND 2 SUPPLIES SUPPLIES HIGH CALIBRATO R SOLUTION/ CHIPS PROF [facility] 86985 MARNI MARNI ALLG 2 LUIS ALFREDO LUIS ALFREDO IMMNTX X W/[place] [address] MARNI MARNI ALLG 2 LUIS ALFREDO LUIS ALFREDO IMMNTX X W/PRV ALLGIC XTRCS NJXS FUNDUS 94390 KENZIE ESPINO PHOTOGRAP 2 JAM JAM HY W/INTERPR ETATION & REPORT VISUAL 11834 KENZIE ESPINO FIELD XM 2 JAM JAM UNI/BI W/INTERP EXTENDED EXAM PREPJ& 43159 MARNI MARNI ALLERGEN 2 LUIS ALFREDO LUIS ALFREDO IMMUNOTHE RAPY 1/EVICTION SPECIALIST ANTIGEN PROF SVCS 14376 MARNI MARNI ALLG 2 LUIS ALFREDO LUIS ALFREDO IMMNTX X W/PRV ALLGIC XTRCS NJXS BRNCDILAT 45056 MARNI MARNI RSPSE 2 LUIS ALFREDO LOBATO SPMTRY PRE&POST- BRNCDILAT ADMN PERCUTANE 39298 MARNI MANN OUS TESTS 2 LUIS ALFREDO BET W/ALLERGE ALVARADO EXTRACTS INTRACUTA 57941 MARNI MARNI NEOUS 2 LUIS ALFREDO LUIS ALFREDO TESTS W/ALLERGE ALVARADO EXTRACTS DEMO&/POLLY 10307 MARNI MARNI L OF PT 2 LUIS ALFREDO LUIS ALFREDO UTILIZ AERSL GEN/NEB/I NHLR/IP NEBULIZER E0570 CRISTIN AMARAL WITH 2 HOME HOME [facility] [address] [place] [facility] DISCHARGE 2 [facility] DAY INTERNAL MANAGEMEN MED T 30 MIN/< SBSQ 32082 [facility] 2 [facility] CATRACHIT[facility] CARE/DAY INTERNAL 25 MED MINUTES INITIAL [address] CATRACHITO CARE/DAY INTERNAL 50 MED MINUTES RADIOLOGI 87171 [facility] C EXAM 2 MED[facility] CHEST 2 IMAGING VIEWS ASS FRONTAL&L ATERAL INJECTION J0696 [place] MUSTAPHA 2 [facility] CECE CEFTRIAXO INTERNAL NE SODIUM MEDI PER 250 MG THERAPEUT 41844 [place] [facility] IC 2 [facility] CE[facility] PROPHYLAC INTERNAL TIC/DX MEDI INJECTION SUBQ/IM INJECTION J3301 [place] 2 [facility] TRIAMCINO INTERNAL INTERNAL LONE MEDI MEDI ACETONIDE NOS 10 MG RADIOLOGI 42289 [facility] C 2 [facility] EXAMINATI INC INC ON CHEST SINGLE VIEW FRONTAL COMPREHEN 58736 [facility] SIVE 2 [facility] METABOLIC INC INC PANEL CREATINE 89073 [facility] KINASE MB 2 [facility] FRACTION INC INC ONLY CREATINE 79509 [facility] KINASE 2 [facility] TOTAL INC INC THER 66626 [facility] PROPH/DX 2 [facility] NJX IV INC INC PUSH SINGLE/1S T SBST/DRUG ECG 30651 [facility] ROUTINE 2 [facility] ECG INC INC W/LEAST 12 LDS TRCG ONLY W/O I&[place] [address] [facility] TROPONIN 2 [facility] QUANTITAT INC INC ANNABELLA THERAPEUT 96561 [facility] IC 2 [facility] INJECTION INC INC IV PUSH EACH NEW DRUG ECG 91502 [facility] HEATHERMIChristiano ROUTINE 2 [facility] W/LEAST P 12 LDS I&R ONLY NATRIURET 62469 [facility] IC 2 [facility] PEPTIDE INC INC BLOOD 11349 [facility] COUNT 2 [facility] COMPLETE INC INC AUTO&AUTO DIFRNTL WBC INJECTION J2405 [facility] 2 [facility] ONDANSETR INC INC ON HCL PER 1 MG DETERMINA 64356 KENZIE ESPINO TION 2 JAM JAM REFRACTIV E STATE OPHTHALMO 47034 KENZIE ESPINO SCPY 2 JAM JAM EXTENDED RETINAL DRAWING I&R 1ST NEBULIZER E0570 CRISTIN AMARAL WITH 2 HOME HOME [facility] EQUIPME EQUIPME ADMN SET A7003 YOUR YOUR SM VOL 2 PHARMACY PHARMACY NONFILTR [employer] PNEUMAT NEBULIZR DISPBL PHARM G0333 YOUR YOUR DISPEN 2 PHARMACY PHARMACY FEE INHAL [employer] RX; INITIAL 30-DAY SUPPLY NEBULIZER E0570 CRISTIN AMARAL WITH 2 HOME HOME [facility] R EQUIPME EQUIPME ALBUTEROL J7613 YOUR YOUR INHAL 2 PHARMACY PHARMACY NON-CP Tabl Media PROD THRU DME U DOSE 1 MG RADIOLOGI 20954 LEONA Kumar EXAM 2 MEDICAL AYLA CHEST 2 IMAGING VIEWS ASS FRONTAL&L ATERAL NONINVASI 64548 [place] [facility] VE 2 [facility] CECE EAR/PULSE INTERNAL OXIMETRY MEDI SINGLE DETER THERAPEUT 26619 [facility] IC 2 [facility] INJECTION INC [place] [address] [facility] INFUSION 2 [facility] THERAPY/P INC INC ROPHYLAXI S /DX 1ST TO 1 [place] [address] [facility] TROPONIN 2 [facility] QUANTITAT INC INC ANNABELLA BLOOD 22336 [facility] COUNT 2 [facility] COMPLETE INC INC AUTO&AUTO DIFRNTL WBC PRESSURIZ 70564 [facility] ED/NONPRE 2 [facility] SSURIZED INC INC INHALATIO N TREATMENT RADIOLOGI 65433 [facility] C EXAM 2 [facility] CHEST 2 INC INC VIEWS FRONTAL&L ATERAL COMPREHEN 51693 [facility] SIVE 2 [facility] METABOLIC INC INC PANEL CREATINE 14236 [facility] KINASE MB 2 [facility] FRACTION INC INC ONLY CREATINE 56431 [facility] KINASE 2 [facility] TOTAL INC INC IAADI 18840 [facility] INFLUENZA 2 [facility] B VIRUS INC INC IAADI 36647 [facility] INFFLUENZ 2 [facility] A A VIRUS INC INC BLD GLU A4253 M E D M E D TEST/REAG 1 SUPPLIES SUPPLIES T STRIPS HOME BLD GLU MON-50 LANCETS A4259 M E D M E D PER BOX 1 SUPPLIES SUPPLIES OF 100 NORMAL A4256 M E D M E D LOW AND 1 SUPPLIES SUPPLIES HIGH CALIBRATO R SOLUTION/ [facility]IPS LARYNGOS[facility] 40698 EAR, NOSE SHASHY OPY 1 AND SOBEIDA FLEXIBLE THROAT DIAGNOSTI SPECIAL C SMOKE TOB G0436 EAR, NOSE EAR, NOSE 1 AND AND CESSATION THROAT THROAT CNSL SPECIAL SPECIAL PT; INTRMED 3-10 MIN ESOPHAGOG 90131 José LYONS ASTRODUOD 1 ELOY MAHER MD [facility] [place] [address] [facility] INFUSION 1 [facility] THERAPY/P INC INC ROPHYLAXI S /DX 1ST TO 1 HR GLUC BLD 03695 [facility] GLUC MNTR 1 [facility] DEV INC [place] [address] [facility] INFUSION 1 [facility] THERAPY INC INC PROPHYLAX IS/DX EA HOUR LARYNGOSC 69242 EAR, NOSE SHASHY OPY 1 AND SOBEIDA FLEXIBLE THROAT DIAGNOSTI SPECIAL C BASIC 86231 COMBINED COMBINED METABOLIC 1 PHYSICIAN PHYSICIAN [place] [address] COMBINED COMBINED BLOOD/URI 1 PHYSICIAN PHYSICIAN C ACID S LA S LA COLLECTIO 88231 COMBINED COMBINED N VENOUS 1 PHYSICIAN PHYSICIAN BLOOD S LA S LA VENIPUNCT URE HEMOGLOBI 15766 COMBINED COMBINED N 1 PHYSICIAN PHYSICIAN GLYCOSYLA S LA S LA ML A1C CT SOFT 49393 [facility] H[facility]ER TISSUE 1 MEDICAL AYLA NECK W/O IMAGING CONTRAST ASS MATERIAL 3D 00519 [facility] RENDER[facility] 1 MEDICAL AYLA IMAGING W/INTERP& ASS POSTPROC DIFF WORK STATION [facility] E0601 CRISTIN JORDANRELL S 1 HOME HOME POSITIVE MEDICAL MEDICAL AIRWAY EQUIP[place] [address] [facility] THYROID 1 [facility] STIMULATI INC INC NG HORMONE TSH COMPREHEN 23686 [facility] SIVE 1 [facility] METABOLIC INC INC PANEL BLOOD 60140 [facility] COUNT 1 [facility] COMPLETE INC INC AUTO&[place] [address] [facility] FERRITIN 1 [facility] INC INC COLLECTIO 46253 [facility] N VENOUS 1 [facility] [place] [address] DERMATOLO NARGIS II SURG 1 [facility] CONSULTAN TS PSC GROSS&SHANTHI ROSCOPIC EXAM SPRING- A4258 M E D M E D WERED 1 SUPPLIES SUPPLIES DEVICE FOR LANCET EACH REPL DEYSI A4233 M E D M E D ALKALINE 1 SUPPLIES SUPPLIES NOT J CELL OSCAR BG MON OWND PT BLD GLU A4253 M E D M E D TEST/REAG 1 SUPPLIES SUPPLIES T STRIPS HOME BLD GLU MON-50 LANCETS A4259 M E D M E D PER BOX 1 SUPPLIES SUPPLIES OF 100 NORMAL A4256 M E D M E D LOW AND 1 SUPPLIES SUPPLIES HIGH CALIBRATO R SOLUTION/ [facility] AMBULANCE A0429 [facility] SERVICE 1 AMBULANCE AMBULANCE BLS SERVICE SERVICE EMERGENCY TRANSPORT GROUND A0425 [facility] MILEAGE 1 AMBULANCE AMBULANCE PER SERVICE SERVICE STATUTE MILE COMPREHEN 10905 [facility] SIVE 1 [facility] METABOLIC INC INC PANEL THER 16330 [facility] PROPH/DX 1 [facility] NJX IV INC INC PUSH SINGLE/1S T SBST/DRUG RADIOLOGI 15263 [facility] HOMER C EXAM 1 MEDICAL AYLA CHEST 2 IMAGING VIEWS ASS FRONTAL&L ATERAL BLOOD 31422 [facility] COUNT 1 [facility] COMPLETE INC INC AUTO&AUTO DIFRNTL WBC PRESSURIZ 36934 [facility] ED/NONPRE 1 [facility] SSURIZED INC INC INHALATIO N TREATMENT THERAPEUT 82786 [facility] IC 1 [facility] INJECTION INC INC IV PUSH EACH NEW DRUG SUSCEPTIB 69225 [facility] LTY STDY 1 [facility] ANTIMICRB INC INC IAL MICRO/AGA R DILUTJ CULTURE 76229 [facility] BACTERIAL 1 [facility] INC INC QUANTTATI VE COLONY COUNT URINE CULTURE 71454 [facility] BCT 1 [facility] ISOL&PRSM INC INC PTV ID ISOLATE EA URINE CHIROPRAC 23052 LETITIAKELLEN KAVYA TIC 1 JANET JANET MANIPULAT ANNABELLA [place] SPINAL 1-2 REGIONS CONTINUOU E0601 CRISTIN AMARAL S 1 HOME HOME POSITIVE MEDICAL MEDICAL AIRWAY EQUIPME EQUIPME PRESSURE DEVICE NON-INVAS 22489 LEONA CORONEL ANNABELLA 1 MEDICAL AYLA PHYSIOLOG IMAGING IC STUDY ASS EXTREMITY 3 LEVLS DUP-SCAN 20463 LEONA CORONEL XTR VEINS 1 MEDICAL AYLA COMPLETE IMAGING ASS BILATERAL STUDY DUP-SCAN 98896 [facility] XTR VEINS 1 [facility] INC INC UNILATERA L/LIMITED STUDY DEBRIDEME 17496 PAWSAT PAWSAT NT NAIL 1 MAR MAR ANY METHOD 6/> CHIROPRAC 53272 KAVYA HOFF TIC 1 JANET JANET MANIPULAT ANNABELLA TX SPINAL 1-2 REGIONS CONTINUOU E0601 CRISTIN AMARAL S 1 HOME HOME POSITIVE MEDICAL MEDICAL AIRWAY EQUIPME EQUIPME PRESSURE DEVICE COMPREHEN 32855 [facility] SIVE 1 [facility] [address] [facility] AMYLASE 1 [facility] INC INC BLOOD 83508 BR[facility] COUNT 1 [facility] COMPLETE INC INC AUTO&AUTO DIFRNTL WBC SUSCEPTIB 58118 BR[facility] LTY STDY 1 [facility] ANTIMICRB INC INC IAL MICRO/AGA R DILUTJ URNLS DIP 76354 [facility] 1 [facility] STICK/TAB INC INC [place] [address] [facility] LIPASE 1 [facility] INC INC THERAPEUT 02563 [facility] IC 1 [facility] PROPHYLAC INC INC TIC/DX INJECTION SUBQ/IM CULTURE 50041 [facility] BCT 1 [facility] ISOL&PRSM INC INC PTV ID ISOLATE EA URINE CULTURE 02052 [facility] BACTERIAL 1 [facility] INC INC QUANTTATI VE COLONY COUNT URINE CHIROPRA 77149 KAVYA HOFF TIC 1 JANET JANET MANIPULAT ANNABELLA [place] SPINAL 1-2 REGIONS COLLECTIO 93482 [facility] N VENOUS 1 [facility] BLOOD INC INC VENIPUNCT URE COMPREHEN 84127 [facility]AL[facility] SIVE 1 [facility] [address] [facility] THYROID 1 [facility] STIMULATI INC INC NG HORMONE TSH HEMOGLOBI 63865 [facility] N 1 [facility] [place] [address] [facility] ABDOMEN & 1 [facility] PELVIS INC INC W/CONTRAS T MATERIAL 3D 49575 BRANDON BRANDON RENDERING 1 [facility] INC INC W/INTERP& POSTPROC DIFF WORK STATION THERAPEUT 07325 BRANDON RABAGOON IC PX 1/> 1 [facility] AREAS INC INC EACH 15 MIN EXERCISES APPL 15636 [facility] MODALITY 1 [facility] 1/> AREAS INC INC ULTRASOUN D EA 15 MIN E-STIM [id number] [facility] 1/> AREAS 1 [facility] OTH THAN INC INC WND CARE PART TX PLAN LIPID 93072 [facility] PANEL 1 [facility] INC INC COMPUTER- 86596 [facility] AIDED 1 [facility] DETECTION INC INC SCREENING MAMMOGRAP HY SCREENING G0202 [facility] 1 [facility] MAMMOGRAP INC INC HY DURGA INCL CAD WHEN PERFORMD E-STIM G0283 [facility] 1/> AREAS 1 [facility] OTH THAN INC INC WND CARE PART TX PLAN APPL 84727 [facility] MODALITY 1 [facility] 1/> AREAS INC INC ULTRASOUN D EA 15 MIN THERAPEUT 66573 BR[facility] T[facility] IC PX 1/> 1 [facility] AREAS INC INC EACH 15 MIN EXERCISES THERAPEUT 49825 [facility] IC PX 1/> 1 [facility] AREAS INC INC EACH 15 MIN EXERCISES APPL 88165 [facility]ITY 1 [facility]/> AREAS INC INC ULTRASOUN D EA 15 MIN E-STIM [id number] [facility] 1/> AREAS [facility] OTH THAN INC INC WND CARE PART TX PLAN CHIROPRAC 81995 KAVYA HOFF TIC 1 JANET JANET MANIPULAT [place] SPINAL 1-2 REGIONS E-STIM G0283 [facility] 1/> AREAS 1 [facility] OTH THAN INC INC WND CARE PART TX PLAN THERAPEUT 09666 [facility] T[facility] IC PX 1/> 1 [facility] AREAS INC INC EACH 15 MIN EXERCISES PHYSICAL 74099 [facility] THERAPY 1 [facility] EVALUATIO INC INC N APPL 88651 BR[facility] MODALITY 1 [facility] 1/> AREAS INC INC ULTRASOUN D EA 15 MIN CHIROPRAC 59092 KAVYA [place] TIC 1 JANET JANET MANIPULAT [place]LLA [place] SPINAL 1-2 REGIONS CONTINUOU E0601 CRISTIN AMARAL S 1 HOME HOME POSITIVE MEDICAL MEDICAL AIRWAY EQUIPME EQUIPME PRESSURE DEVICE RADEX 98935 LEONA CORONEL UPPER GI 1 MEDICAL AYLA W/WO IMAGING GLUCAGON/ ASS DELAY IMAGES W/KUB CHIROPRAC 19209 KAVYA KED[place] TIC 1 JANET JANET MANIPULAT ANNABELLA [place] SPINAL 1-2 REGIONS CHIROPRA 40210 [place] TIC 1 JANET JANET MANIPULAT [place] SPINAL 1-2 REGIONS BLD GLU A4253 M E D M E D TEST/REAG 1 SUPPLIES SUPPLIES T STRIPS HOME BLD GLU MON-50 LANCETS A4259 M E D M E D PER BOX 1 SUPPLIES SUPPLIES OF 100 NORMAL A4256 M E D M E D LOW AND 1 SUPPLIES SUPPLIES HIGH CALIBRATO R SOLUTION/ CHIPS CHIROPRA 40627 [place] TIC 1 JANET JANET MANIPULAT ANNABELLA TX SPINAL 1-2 REGIONS CHIROPRA 86301 [place] TIC 1 JANET JANET MANIPULAT ANNABELLA TX SPINAL 1-2 REGIONS CHIROPRA 43391 [place] TIC 1 JANET JANET MANIPULAT ANNABELLA TX SPINAL 1-2 REGIONS CHIROPRA 75791 [place] TIC 1 JANET JANET MANIPULAT ANNABELLA TX SPINAL 1-2 REGIONS CHIROPRA 06649 K[place] TIC 1 JANET JANET MANIPULAT ANNABELLA [place] SPINAL 1-2 REGIONS HEADGEAR A7035 CRISTIN AMARAL USED 1 HOME HOME W/POSITIV MEDICAL MEDICAL E AIRWAY EQUIPME EQUIPME PRESSURE DEVICE HUMDIFIR E0562 CRISTIN CRISTIN HEATED 1 HOME HOME USED MEDICAL MEDICAL W/POS EQUIPME EQUIPME ARWAY PRESSURE DEVICE TUBING A7037 CRISTINDIGNA AMARAL USED WITH 1 HOME HOME POSITIVE MEDICAL MEDICAL AIRWAY EQUIPME EQUIPME PRESSURE DEVICE FILTER A7038 CRISTIN AMARAL DISPBL 1 HOME HOME USED MEDICAL MEDICAL W/POS EQUIPME EQUIPME ARWAY PRESSURE DEVICE FULL FACE A7030 CRISTIN AMARAL MASK 1 HOME HOME USED MEDICAL MEDICAL W/POS EQUIPME EQUIPME ARWAY PRESS DEVICE EA CONTINUOU E0601 CRISTIN AMARAL S 1 HOME HOME POSITIVE MEDICAL MEDICAL AIRWAY EQUIPME EQUIPME PRESSURE DEVICE CHIROPRAC 24710 [place] TIC 1 JANET JANET MANIPULAT [place] SPINAL 1-2 REGIONS CHIROPRAC 05857 KAVYA [place]EDING TIC 1 JANET JANET MANIPULAT [place]NABELLA [place] SPINAL 1-2 REGIONS POLYSOM 39169 [facility] 6/>YRS 1 DEIDRA DEIDRA SLEEP W/CPAP 4/> ADDL JENNIE ATTND POLYSOM 61155 [facility] 6/>YRS 1 DEIDRA DEIDRA SLEEP 4/> ADDL JENNIE ATTND POLYSOM 20082 [facility] 6/>YRS 1 [facility] SLEEP 4/> INC INC ADDL JENNIE ATTND 3D 50947 [facility] RENDERING 1 [facility] W/INTERP INC INC & POSTPROCE SS SUPERVISI ON MRI 61149 [facility] SPINAL 1 [facility] CANAL INC INC LUMBAR W/O CONTRAST MATERIAL BLOOD 15696 [facility] COUNT 1 [facility] COMPLETE INC INC AUTO&AUTO DIFRNTL WBC COLLECTIO 99035 [facility] N VENOUS 1 [facility] BLOOD INC INC VENIPUNCT URE COMPREHEN 58625 [facility] SIVE 1 [facility] [place] [address] BR[facility] T[facility] THYROID 1 [facility] STIMULATI INC INC NG HORMONE TSH CREATINE 44974 BR[facility] KINASE 1 [facility] TOTAL INC INC SEDIMENTA 41585 [facility] TION RATE 1 [facility] RBC INC INC NON-AUTOM ATED AMBULANCE A0429 [facility] SERVICE 1 AMBULANCE AMBULANCE BLS SERVICE SERVICE EMERGENCY TRANSPORT GROUND A0425 [facility] AMBUL[facility] PER SERVICE SERVICE STATUTE MILE THER 67110 BR[facility] PROPH/DX 1 [facility] NJX IV INC INC PUSH SINGLE/1S T SBST/DRUG RADEX 14141 [facility] SPINE 1 [facility] LUMBOSACR INC INC AL 2/3 VIEWS URNLS DIP 86299 [facility] 1 [facility] STICK/TAB INC INC LET REAGENT AUTO MICROSCOP Y RADIOLOGI 35961 BRANDON Kumar EXAM 1 [facility] CHEST 2 INC INC VIEWS FRONTAL&L ATERAL THERAPEUT 74537 [facility] IC 1 [facility] INJECTION INC INC IV PUSH EACH NEW DRUG CULTURE 97091 [facility] BACTERIAL 1 [facility] INC INC QUANTTATI VE COLONY COUNT URINE BLOOD 46017 [facility] COUNT 1 [facility] COMPLETE INC INC AUTO&AUTO DIFRNTL WBC COMPREHEN 53920 [facility] SIVE 1 [facility] METABOLIC INC INC PANEL HEMOGLOBI 10157 [facility] N 1 [facility] GLYCOSYLA INC INC ML A1C COLLECTIO 20409 [facility] N VENOUS 1 [facility] BLOOD INC INC VENIPUNCT URE CYANOCOBA 92863 [facility] PRATEEK 1 [facility] VITAMIN INC INC B-12 GROUND A0425 [facility] AM[facility]ULANCE AMBULANCE PER SERVICE SERVICE STATUTE MILE ECG 65166 BRANDON LEMUS ROUTINE 1 [facility] W/LEAST P 12 LDS I&R ONLY RADIOLOGI 92413 LEONA Kumar 1 MEDICAL AYLA EXAMINATI IMAGING ON CHEST ASS SINGLE VIEW FRONTAL AMB A0427 [facility] SERVICE 1 AMBULANCE AMBULANCE ALS SERVICE SERVICE EMERGENCY TRANSPORT LEVEL 1 TECHNETIU A9502 BRANDON Wayne TC-99M 1 [facility] TETROFOSM INC INC IN DX PER STUDY DOSE MYOCARDIA 16212 [facility] L SPECT 1 [facility] MULTIPLE INC INC STUDIES CV STRS 41327 BR[facility] T[facility] TST 1 [facility] XERS&/OR [place] [address] [facility] HEAD/BRAI 1 MEDICAL AYLA N IMAGING W/CONTRAS ASS T MATERIAL 3D 82568 [facility] RENDERING 1 [facility] W/INTERP INC INC & POSTPROCE SS SUPERVISI ON CT SOFT 17814 [facility] TISSUE 1 MEDICAL MEDICAL NECK IMAGING IMAGING W/[place] [address] [facility] HEAD/BRAI 1 [facility] N W/O & INC INC W/CONTRAS T MATERIAL 3D 42443 [place] [facility] RENDERING 1 MEDICAL AYLA IMAGING W/INTERP& ASS POSTPROC DIFF WORK STATION COLLECTIO 75210 BRANDON BRANDON N VENOUS 1 [facility] [place] [address] [facility] UREA 1 [facility] NITROGEN INC INC QUANTITAT ANNABELLA CREATININ 71399 BRANDON ATYLOR E BLOOD 1 [place] [address] [facility] INFUSION 1 [facility] THERAPY/P INC INC ROPHYLAXI S /DX 1ST TO 1 HR GLUC BLD 48112 [facility] GLUC MNTR 1 [facility] DEV INC [place] [address] [facility] INFUSION 1 [facility] THERAPY INC INC PROPHYLAX IS/DX EA HOUR ANES 59120 [facility] PETR LOWER 1 ANESTH INTESTINE OF THE BLUE ENDOSCOPY DISTAL DUODENUM COLONOSCO 05725 C SOPHIE LYONS PY FLX DX 1 ELOY GAMBOA W/FLORENCIO SANCHEZ PSC SPEC WHEN PFRMD REPL DEYSI A4233 M E D M E D ALKALINE 1 SUPPLIES SUPPLIES NOT J CELL OSCAR BG MON OWND PT BLD GLU A4253 M E D M E D TEST/REAG 1 SUPPLIES SUPPLIES T STRIPS HOME BLD GLU MON-50 LANCETS A4259 M E D M E D PER BOX 1 SUPPLIES SUPPLIES OF 100 NORMAL A4256 M E D M E D LOW AND 1 SUPPLIES SUPPLIES HIGH CALIBRATO R SOLUTION/ CHIPS [facility] A4258 M E D M E D WERED 1 SUPPLIES SUPPLIES DEVICE FOR LANCET EACH RADIOLOGI 00585 [facility] C EXAM 1 MEDICAL AYLA CHEST 2 IMAGING VIEWS ASS FRONTAL&L ATERAL OPHTH 78824 ELLEN HALLMAN [facility] MEDICAL 1 VISION XM&EVAL COMPRHNSV ESTAB PT 1/> BLOOD 10683 BR[facility]ON TAYLOR COUNT 1 [facility] COMPLETE INC INC AUTO&AUTO DIFRNTL WBC COLLECTIO 77476 BRANDON TAYLOR N VENOUS 1 [facility] BLOOD INC INC VENIPUNCT URE BASIC 14992 BRAND[facility] TAYLOR METABOLIC 1 [facility] PANEL INC INC CALCIUM TOTAL RADIOLOGI 64846 [facility] C EXAM 1 MEDICAL AYLA CHEST 2 IMAGING VIEWS ASS FRONTAL&L ATERAL REPL DEYSI A4233 [facility] ALKALINE 0 MEDICAL MEDICAL NOT J FLY MOORE BG MON OWND PT NORMAL A4256 CCS CCS LOW AND 0 MEDICAL MEDICAL HIGH CALIBRATO R SOLUTION/ CHIPS [facility] A4258 CCS CCS WERED 0 MEDICAL 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 EACH LANCETS A4259 CCS CCS PER BOX 0 MEDICAL MEDICAL OF 100 BLD GLU A4253 [facility]CS CCS TEST/REAG 0 MEDICAL MEDICAL T STRIPS HOME BLD GLU MON-50 BLD GLU A4253 SECURE SECURE TEST/REAG 0 CARE CARE T STRIPS MEDICAL MEDICAL HOME BLD GLU MON-50 LANCETS A4259 SECURE SECURE PER BOX 0 CARE CARE OF 100 MEDICAL MEDICAL NORMAL A4256 SECURE SECURE LOW AND 0 CARE CARE HIGH MEDICAL MEDICAL CALIBRATO R SOLUTION/ CHIPS BLD GLU E2100 SECURE SECURE MONITOR 0 CARE CARE W/INTEGRA MEDICAL MEDICAL ML VOICE SYNTHESIZ ER [facility] A4258 SECURE SECURE WERED 0 CARE CARE DEVICE MEDICAL MEDICAL FOR LANCET EACH RADIOLOGI 73539 José CACERES 0 MEDICAL FREDO EXAMINATI IMAGING ON KNEE 3 ASSOCIATE VIEWS S BASIC 40429 [facility] METABOLIC 0 [facility] PANEL INC INC CALCIUM TOTAL CULTURE 04449 [facility] BACTERIAL 0 [facility] INC INC QUANTTATI VE COLONY COUNT URINE RADIOLOGI 31059 LEONA CORONEL C 0 MEDICAL FREDO EXAMINATI IMAGING ON [place] [address] [facility] INFUSION 0 [facility] HYDRATION INC INC INITIAL 31 MIN-1 HOUR HEMOGLOBI 48407 [facility] N 0 [facility] GLYCOSYLA INC INC ML A1C BLOOD 15351 [facility] COUNT 0 [facility] COMPLETE INC INC AUTO&AUTO DIFRNTL WBC URNLS DIP 10399 [facility] 0 [facility] STICK/TAB INC INC LET REAGENT AUTO MICROSCOP Y O2 CONC 1 E1390 EVELYN RIVAS [place] 9 HOME HOME 85%/>02 MEDICAL MEDICAL CONC AT EQUIPMENT EQUIPMENT PRSC FLW RATE PRTBLE E0431 CYNMIGUEL RIVAS GASEOUS 9 HOME HOME O2 SYS MEDICAL MEDICAL RENT; EQUIPMENT EQUIPMENT FLWMTR HUMIDFR&M ASK SCR G0124 PATHOLOGY PATHOLOGY CYTOPATH 9 & & CERV/VAG CYTOLOGY CYTOLOGY THIN LAY LAB LAB PREP INTEPR PHYS SCR G0145 PATHOLOGY PATHOLOGY CYTOPATH 9 & & CERV/VAG CYTOLOGY CYTOLOGY SCR LAB LAB AUTO&MNL RSCR PHYS IADNA 65404 PATHOLOGY PATHOLOGY PAPILLOMA 9 & & VIRUS CYTOLOGY CYTOLOGY HUMAN LAB LAB AMPLIFIED PROBE TQ PHARM G0333 [facility] DIS[facility] 9 PHARMACY PHARMACY FEE INHAL 3938 3938 RX; INITIAL 30-DAY SUPPLY RADIOLOGI 90011 José CACERES EXAM 9 MEDICAL FREDO CHEST 2 IMAGING VIEWS ASSOCIATE FRONTAL&L S ATERAL PRESSURIZ 75702 [facility], ED/NONPRE 9 SEAGRAVES LAURIE A SSURIZED INTERNAL INHALATIO MED N TREATMENT ALBUTEROL J7620 [facility] TO 2.5 9 PHARMACY PHARMACY MG & 3938 3938 IPRATROPI UM BROM TO 0.5 MG O2 CONC 1 E1390 [place]N R[place]AS [place] 9 HOME HOME 85%/>02 MEDICAL MEDICAL CONC AT EQUIPMENT EQUIPMENT PRSC FLW RATE PRTBLE E0431 EVELYN RIVAS GASEOUS 9 HOME HOME O2 SYS MEDICAL MEDICAL RENT; EQUIPMENT EQUIPMENT FLWMTR HUMIDFR&M ASK PRESSURIZ 25201 CHRIS PRISCILLA, ED/NONPRE 9 SEAGRAVES LAURIE A SSURIZED INTERNAL INHALATIO MED N TREATMENT URNLS DIP 54220 [facility] 9 [facility] STICK/TAB INC INC LET REAGENT AUTO MICROSCOP Y IAADI 31798 [facility] INFFLUENZ 9 [facility] A A VIRUS INC INC IAADI 54127 [facility] INFLUENZA 9 [facility] B VIRUS INC INC CULTURE 21020 [facility] BACTERIAL 9 [facility] INC INC QUANTTATI VE COLONY COUNT URINE APPL 67986 [place] ESCOBAR, MODALITY 9 FAMILY LILIYA C 1/> AREAS CHIROPRAC ELEC TIC STIMJ EA 15 MIN THERAPEUT 74678 CYNMIGUEL ESCOBAR, IC PX 1/> 9 FAMILY LILIYA C AREAS CHIROPRAC EACH 15 TIC MIN EXERCISES CHIROPRAC 96954 [place] ESCOBAR, TIC 9 FAMILY LILIYA C MANIPULAT CHIROPRAC ANNABELLA TX TIC SPINAL 3-4 REGIONS APPL 69903 [place] ESCOBAR, MODALITY 9 FAMILY LILIYA C 1/> AREAS CHIROPRAC TRACTION TIC MECHANICA L APPL 20848 [place] ESCOBAR, MODALITY 9 FAMILY LILIYA C 1/> AREAS CHIROPRAC TRACTION TIC MECHANICA L APPL 57601 [place] ESCOBAR, MODALITY 9 FAMILY LILIYA C 1/> AREAS CHIROPRAC ELEC TIC STIMJ EA 15 MIN CHIROPRAC 53030 [place] ESCOBAR, TIC 9 FAMILY LILIYA C MANIPULAT CHIROPRAC ANNABELLA TX TIC SPINAL 3-4 REGIONS THERAPEUT 67126 [place] ESCOBAR, IC PX 1/> 9 FAMILY LILIYA C AREAS CHIROPRAC EACH 15 TIC MIN EXERCISES CHIROPRAC 68038 [place] ESCOBAR, TIC 9 FAMILY LILIYA C MANIPULAT CHIROPRAC ANNABELLA TX TIC SPINAL 3-4 REGIONS APPL 61148 [place] ESCOBAR, MODALITY 9 FAMILY LILIYA C 1/> AREAS CHIROPRAC ELEC TIC STIMJ EA 15 MIN THERAPEUT 66807 [place] ESCOBAR, IC PX 1/> 9 FAMILY LILIYA C AREAS CHIROPRAC EACH 15 TIC MIN EXERCISES APPL 26656 [place] ESCOBAR, MODALITY 9 FAMILY LILIYA C 1/> AREAS CHIROPRAC TRACTION TIC MECHANICA L THERAPEUT 50771 [place] ESCOBAR, IC PX 1/> 9 FAMILY LILIYA C AREAS CHIROPRAC EACH 15 TIC MIN EXERCISES APPL 28624 [place] ESCOBAR, MODALITY 9 FAMILY LILIYA C 1/> AREAS CHIROPRAC ELEC TIC STIMJ EA 15 MIN SELF-CARE 61052 [place] ESCOBAR, /HOME 9 FAMILY LILIYA C MGMT CHIROPRAC TRAINING TIC EACH 15 MINUTES APPL 28259 [place] ESCOBAR, MODALITY 9 FAMILY LILIYA C 1/> AREAS CHIROPRAC TRACTION TIC MECHANICA L CHIROPRAC 75604 [place] ESCOBAR, TIC 9 FAMILY ILLIYA C MANIPULAT CHIROPRAC ANNABELLA TX TIC SPINAL 3-4 REGIONS INJ J0702 LEANA DUEÑAS, BETAMETHA 9 CHELSY W CHELSY W SONE ACETATE & PHOSPHATE 3 MG INITIAL 55507 [facility] 9 Y OF CHERYL CARE/DAY [place] A 70 INTERNAL MINUTES MEDICINE RADIOLOGI 37358 José DUMAS EXAM 9 MEDICAL FORTINO G CHEST 2 SERV VIEWS FOUNDATIO FRONTAL&L ATERAL ECG 87748 BUNNY JOHNSON, ROUTINE 9 MEDICAL SIMBA C ECG SERV W/LEAST FOUNDATIO 12 LDS I&R ONLY PRTBLE E0431 [place] GASEOUS 9 HOME HOME O2 SYS MEDICAL MEDICAL RENT; EQUIPMENT EQUIPMENT FLWMTR HUMIDFR&M ASK O2 CONC 1 E1390 [place]N [place]AS [place] 9 HOME HOME 85%/>02 MEDICAL MEDICAL CONC AT EQUIPMENT EQUIPMENT PRSC FLW RATE OBSERVATI 01040 [place] PRISCILLA, ON CARE 9 SEAGRAVES LAURIE A DISCHARGE INTERNAL MED MANAGEMEN T INITIAL 84324 [place] PRISCILLA, OBSERVATI 9 SEAGRAVES LAURIE A ON INTERNAL CARE/DAY MED 30 MINUTES BLOOD 36303 [facility] COUNT 9 [facility] COMPLETE INC INC AUTO&AUTO DIFRNTL WBC URNLS DIP 18373 [facility] 9 [facility] STICK/TAB INC INC LET REAGENT AUTO MICROSCOP Y COMPREHEN 93631 [facility] SIVE 9 [facility] METABOLIC INC INC PANEL CULTURE 03155 [facility] BACTERIAL 9 [facility] INC INC QUANTTATI VE COLONY COUNT URINE SBSQ 56930 [facility] 9 CARE/DAY 15 MINUTES ECG 22787 CARDIOLOG SUMMERS, ROUTINE 9 Y KHURRAM A ECG ASSOCIATE W/LEAST S OF 12 [facility] I&R ONLY SBSQ 19134 [facility] 9 CARE/DAY 15 MINUTES O2 CONC 1 E1390 EVELYN GUZMAN [facility] 9 HOME HOME 85%/>02 MEDICAL MEDICAL CONC AT EQUIPMENT EQUIPMENT PRSC FLW RATE PRTBLE E0431 EVELYN RIVAS GASEOUS 9 HOME HOME O2 SYS MEDICAL MEDICAL RENT; EQUIPMENT EQUIPMENT FLWMTR HUMIDFR&M ASK SBSQ 71356 [facility] 9 CARE/DAY 15 MINUTES SBSQ 64190 [facility] 9 CARE/DAY 15 MINUTES SBSQ 92776 [facility] 9 CARE/DAY 15 MINUTES ECG 60572 CARDIOLOG WINSTED ROUTINE 9 Y , D L ECG ASSOCIATE W/LEAST S OF 12 [facility] I&R ONLY INITIAL 23484 [facility] 9 CARE/DAY 30 MINUTES GROUND A0425 [facility] AMBULANCE PER SERVICE SERVICE STATUTE MILE AMBULANCE A0429 [facility] SERVICE 9 AMBULANCE AMBULANCE BLS SERVICE SERVICE EMERGENCY TRANSPORT RADIOLOGI 33640 José CACERES 9 MEDICAL FREDO EXAMINATI IMAGING ON CHEST ASSOCIATE SINGLE S VIEW FRONTAL AMB A0422 JULEE LADD OXYGEN&O2 9 AMBULANCE AMBULANCE SUPPLIES SERVICE SERVICE [place] [address] BRANDON TAYLOR INFUSION 9 [facility] THERAPY/P INC INC ROPHYLAXI S /DX 1ST TO 1 HR GLUC BLD 06599 [facility] T[facility] GLUC MNTR 9 [facility] DEV INC INC CLEARED FDA SPEC HOME USE BLOOD 75140 [facility] COUNT 9 [facility] COMPLETE INC INC AUTO&AUTO DIFRNTL WBC KETONE 44502 [facility] BODIES 9 [facility] SERUM INC INC QUALITATI VE THERAPEUT 19453 [facility] IC 9 [facility] PROPHYLAC INC INC TIC/DX INJECTION SUBQ/IM BASIC 88433 BR[facility] TAY[facility]OR METABOLIC 9 [facility] PANEL INC INC CALCIUM TOTAL PRTBLE E0431 EVELYN RIVAS GASEOUS 9 HOME HOME O2 SYS MEDICAL MEDICAL RENT; EQUIPMENT EQUIPMENT FLWMTR HUMIDFR&M ASK O2 CONC 1 E1390 [place]N R[place]AS [place] 9 HOME HOME 85%/>02 MEDICAL MEDICAL CONC AT EQUIPMENT EQUIPMENT PRSC FLW RATE GROUND A0425 [facility]ANCE AMBULANCE PER SERVICE SERVICE STATUTE MILE INITIAL 63041 CHUY DIAZ 9 [facility] ON INTERNAL CARE/DAY MED 30 MINUTES AMB A0427 JULEE LADD SERVICE 9 AMBULANCE AMBULANCE ALS SERVICE SERVICE EMERGENCY TRANSPORT LEVEL 1 AMB A0422 JULEE LADD OXYGEN&O2 9 AMBULANCE AMBULANCE SUPPLIES SERVICE SERVICE [facility] G0378 [facility] T[facility] OBSERVATI 9 [facility] [place] [address] BRAND[facility] INFUSION 9 [facility] THERAPY/P INC INC ROPHYLAXI S /DX 1ST TO 1 HR GLUC BLD 77971 [facility] GLUC MNTR 9 [facility] DEV INC [place] [address] BR[facility] TROPONIN 9 [facility] QUANTITAT INC INC ANNABELLA COMPREHEN 55984 [facility] SIVE 9 [facility] METABOLIC INC INC PANEL CREATINE 98918 BRANDON BRANDON KINASE MB 9 [facility] FRACTION INC INC ONLY RADIOLOGI 08780 BR[facility] TAY[facility] C 9 [facility] EXAMINATI INC INC ON CHEST SINGLE VIEW FRONTAL CREATINE 02458 BRANDON BRANDON KINASE 9 [facility] TOTAL INC INC BASIC 94937 BR[facility] TAY[facility] METABOLIC 9 [facility] PANEL INC INC CALCIUM TOTAL ECG 34240 BRANDON JAUREGUIKEMIE ROUTINE 9 [facility] W/LEAST PROF SERV 12 LDS I&R ONLY ECG 21852 BRANDON TAYLOR ROUTINE 9 [facility] ECG INC INC W/LEAST 12 LDS TRCG ONLY W/O I&R BLOOD 39908 BRANDON TAYLOR COUNT 9 [facility] COMPLETE INC INC AUTO&AUTO DIFRNTL WBC RADEX 45066 BRANDON BRANDON ESOPHAGUS 9 [facility] INC INC 3D 22419 BR[facility] T[facility] RENDERING 9 [facility] INC INC W/INTERP& POSTPROC DIFF WORK STATION CT SOFT 68921 BR[facility]ON TAYLOR TISSUE 9 [facility] NECK INC INC W/CONTRAS T MATERIAL LOCM Q9967 BR[facility]ON T[facility]LOR [phone] [facility] MG/ML INC INC IODINE CONCENTRA TION PER ML COLLECTIO 42613 BRANDON TAYLOR N VENOUS 9 [facility] BLOOD INC INC VENIPUNCT URE CALCIUM 17326 BRANDON TAYLOR TOTAL 9 [facility] [place] [address] BRANDON TAYLOR THYROID 9 [facility] STIMULATI [place] [address] BRANDON TAYL[facility] UREA 9 [facility] NITROGEN [place] [address] BRANDON TAYLOR THYROXINE 9 [facility] TOTAL INC INC CREATININ 88500 BRANDON TAYLOR E BLOOD 9 [facility] INC INC NORMAL A4256 DIABETES DIABETES LOW AND 9 [facility] CALIBRATO R SOLUTION/ CHIPS PRTBLE E0431 EVELYN RIVAS GASEOUS 9 HOME HOME O2 SYS MEDICAL MEDICAL RENT; EQUIPMENT EQUIPMENT FLWMTR HUMIDFR&M ASK O2 CONC 1 E1390 EVELYN RIVAS DEL PORT 9 HOME HOME 85%/>02 MEDICAL MEDICAL CONC AT EQUIPMENT EQUIPMENT PRSC FLW RATE COLLECTIO 91528 BRANDON TAYLOR N VENOUS 9 [facility] BLOOD INC INC VENIPUNCT URE COMPREHEN 63984 BRANDON TAYLOR SIVE 9 [facility] METABOLIC INC INC PANEL LIPID 94829 BRANDON TAYLOR PANEL 9 [facility] INC INC RADIOLOGI 99339 BRANDON TAYLOR C 9 [facility] EXAMINATI INC INC ON KNEE 3 VIEWS RADEX 76521 BRANDON TAYLOR ANKLE 9 [facility] COMPLETE INC INC MINIMUM 3 VIEWS PRTBLE E0431 EVELYN RIVAS GASEOUS 9 HOME HOME O2 SYS MEDICAL MEDICAL RENT; EQUIPMENT EQUIPMENT FLWMTR HUMIDFR&M ASK O2 CONC 1 E1390 EVELYN RIVAS DEL PORT 9 HOME HOME 85%/>02 MEDICAL MEDICAL CONC AT EQUIPMENT EQUIPMENT PRSC FLW RATE COLONOSCO 59628 [place] RISA, PY 9 MEDICAL [place] W/BIOPSY SERV SINGLE[place] [address] BRANDON TAYLOR INFUSION 9 [facility] THERAPY/P INC INC ROPHYLAXI S /DX 1ST TO 1 HR GLUC BLD 00071 BRANDON TAYLOR GLUC MNTR 9 [facility] DEV INC INC [place] [address] PATHOLOGY PATHOLOGY SURG 9 & & PATHOLOGY CYTOLOGY CYTOLOGY LAB LAB GROSS&SHANTHI ROSCOPIC EXAM ANES 05845 [facility] 9 ANESTH KANNAN Ortega [facility] [address] BRANDON TAYLOR INFUSION 9 [facility] THERAPY INC INC PROPHYLAX IS/DX EA HOUR THER 96677 BRANDON TAYLOR PROPH/DX 9 [facility] NJX IV INC INC PUSH SINGLE/1S T SBST/DRUG CREATINE 82124 BRANDON TAYLOR KINASE 9 [facility] [place] [address] BRANDON TAYLOR LIPASE 9 [place] [address] BRANDON TAYLOR TROPONIN 9 [facility] QUANTITAT INC INC ANNABELLA BLOOD 47346 BRANDON TAYLOR COUNT 9 [facility] COMPLETE INC INC AUTO&AUTO DIFRNTL WBC URNLS DIP 00356 BRANDON TAYLOR 9 [facility] STICK/TAB INC INC LET REAGENT AUTO MICROSCOP Y THERAPEUT 78101 BRANDON TAYLOR IC 9 [facility] INJECTION INC INC IV PUSH EACH NEW DRUG INJECTION J2405 BRANDON TAYLOR 9 [facility] ONDANSETR INC INC ON HCL PER 1 MG COMPREHEN 31545 BRANDON TAYLOR SIVE 9 [facility] [place] [address] BRANDON TAYLOR AMYLASE 9 [facility] INC INC CREATINE 17438 BRANDON TAYLOR KINASE MB 9 [facility] FRACTION INC INC ONLY ECG 15079 BRANDON TAYLOR ROUTINE 9 [facility] ECG INC INC W/LEAST 12 LDS TRCG ONLY W/O I&R ECG 58849 BRANDON CHOWDHURY, ROUTINE 9 [facility] W/LEAST PROF SERV 12 LDS I&R ONLY AMB A0427 JULEE LADD SERVICE 9 AMBULANCE AMBULANCE ALS SERVICE SERVICE EMERGENCY TRANSPORT LEVEL 1 GROUND A0425 JULEE LADD MILEAGE 9 AMBULANCE AMBULANCE PER SERVICE SERVICE STATUTE MILE AMB A0422 JULEE LADD OXYGEN&O2 9 AMBULANCE AMBULANCE SUPPLIES SERVICE SERVICE LIFE SUSTAININ G SITUATION KETONE 59161 BRANDON TAYLOR BODIES 9 [facility] [place] [address] BRANDON TAYLOR INFUSION 9 [facility] THERAPY/P INC INC ROPHYLAXI S /DX 1ST TO 1 HR BLOOD 68210 BRANDON TAYLOR COUNT 9 [facility] COMPLETE INC INC AUTO&AUTO DIFRNTL WBC SUSCEPTIB 45443 BRANDON TAYLOR LTY STDY 9 [facility] ANTIMICRB INC INC IAL MICRO/AGA R DILUTJ URNLS DIP 69761 BRANDON TAYLOR 9 [facility] STICK/TAB INC INC LET REAGENT AUTO MICROSCOP Y THERAPEUT 84282 BRANDON TAYLOR IC 9 [facility] INJECTION INC INC IV PUSH EACH NEW DRUG CULTURE 98650 BRANDON TAYLOR BACTERIAL 9 [facility] INC INC QUANTTATI VE COLONY COUNT URINE CULTURE 30725 BRANDON TAYLOR BCT 9 [facility] ISOL&PRSM INC INC PTV ID ISOLATE EA URINE COMPREHEN 12942 BRANDON TAYLOR SIVE 9 [facility] METABOLIC INC INC PANEL PRTBLE E0431 EVELYN RIVAS GASEOUS 9 HOME HOME O2 SYS MEDICAL MEDICAL RENT; EQUIPMENT EQUIPMENT FLWMTR HUMIDFR&M ASK O2 CONC 1 E1390 EVELYN GUZMAN PORT 9 HOME HOME 85%/>02 MEDICAL MEDICAL CONC AT EQUIPMENT EQUIPMENT PRSC FLW RATE GLUC BLD 71352 BRANDON TAYLOR GLUC MNTR 9 [facility] DEV INC INC CLEARED FDA SPEC HOME USE THERAPEUT 59852 BRANDON TAYLOR IC 9 [facility] PROPHYLAC INC INC TIC/DX INJECTION SUBQ/IM BLD GLU A4253 DIABETES DIABETES TEST/REAG 9 [facility] [employer] HOME BLD GLU MON-50 LANCETS A4259 DIABETES DIABETES PER BOX 9 [facility] LLC O2 CONC 1 E1390 EVELYN RIVAS DEL PORT 9 HOME HOME 85%/>02 MEDICAL MEDICAL CONC AT EQUIPMENT EQUIPMENT PRSC FLW RATE PRTBLE E0431 EVELYN RIVAS GASEOUS 9 HOME HOME O2 SYS MEDICAL MEDICAL RENT; EQUIPMENT EQUIPMENT FLWMTR HUMIDFR&M ASK LANCETS A4259 DIABETES DIABETES PER BOX 9 [facility] 100 [facility] BLD GLU A4253 DIABETES DIABETES TEST/REAG 9 [facility] T [facility] HOME BLD GLU MON-50 O2 CONC 1 E1390 EVELYN RIVAS DEL PORT 9 HOME HOME 85%/>02 MEDICAL MEDICAL CONC AT EQUIPMENT EQUIPMENT PRSC FLW RATE NORMAL A4256 DIABETES DIABETES LOW AND 9 CARE [facility] CARE CLUB HIGH [facility] CALIBRATO R SOLUTION/ CHIPS PRTBLE E0431 EVELYN RIVAS GASEOUS 9 HOME HOME O2 SYS MEDICAL MEDICAL RENT; EQUIPMENT EQUIPMENT FLWMTR HUMIDFR&M ASK PRTBLE E0431 EVELYN RIVAS GASEOUS 8 HOME HOME O2 SYS MEDICAL MEDICAL RENT; EQUIPMENT EQUIPMENT FLWMTR HUMIDFR&M ASK O2 CONC 1 E1390 EVELYN RIVAS DEL PORT 8 HOME HOME 85%/>02 MEDICAL MEDICAL CONC AT EQUIPMENT EQUIPMENT PRSC FLW RATE LANCETS A4259 DIABETES DIABETES PER BOX 8 [facility] 100 [facility] BLD GLU A4253 DIABETES DIABETES TEST/REAG 8 CARE [facility] CARE CLUB T STRIPS [facility] HOME BLD GLU MON-50 GASTRIC 69890 LEONA CORONEL [facility] 8 MEDICAL FREDO IMAGING IMAGING STUDY ASSOCIATE S O2 CONC 1 E1390 EVELYN RIVAS DEL PORT 8 HOME HOME 85%/>02 MEDICAL MEDICAL CONC AT EQUIPMENT EQUIPMENT PRSC FLW RATE PRTBLE E0431 EVELYN RIVAS GASEOUS 8 HOME HOME O2 SYS MEDICAL MEDICAL RENT; EQUIPMENT EQUIPMENT FLWMTR HUMIDFR&M ASK LANCETS A4259 DIABETES DIABETES PER BOX 8 [facility] 100 [facility] BLD GLU A4253 DIABETES DIABETES TEST/REAG 8 [facility] C[facility] T [facility] HOME BLD GLU MON-50 IV NFUS 31649 BRANDON TAYLOR THER 8 [facility] PROPH/DX INC INC EA HR URNLS DIP 56998 BRANDON TAYLOR 8 [facility] STICK/TAB INC INC LET REAGENT AUTO MICROSCOP Y GLUC BLD 60002 BRANDON TAYLOR GLUC MNTR 8 [facility] DEV INC [place] [address] BRANDONKATI TAYLOR THER 8 [facility] PROPH/DX INC INC 1ST >1 HR BLOOD 33624 BRANDON TAYLOR COUNT 8 [facility] COMPLETE INC INC AUTO&AUTO DIFRNTL WBC BASIC 91877 BRANDON TAYLOR METABOLIC 8 [facility] PANEL INC INC CALCIUM TOTAL PRTBLE E0431 EVELYN RIVAS GASEOUS 8 HOME HOME O2 SYS MEDICAL MEDICAL RENT; EQUIPMENT EQUIPMENT FLWMTR HUMIDFR&M ASK O2 CONC 1 E1390 EVELYN RIVAS DEL PORT 8 HOME HOME 85%/>02 MEDICAL MEDICAL CONC AT EQUIPMENT EQUIPMENT PRSC FLW RATE 3D 24392 UMM DUKES 8 MEDICAL RACHEL P W/INTERP IMAGING & [place] [address] BRANDON TAYLOR HEAD/BRAI 8 [facility] N W/O INC INC CONTRAST MATERIAL CUL 97370 BRANDON TAYLOR PRSMPTV 8 [facility] PTHGNC INC INC ORGANISMS SCR DNS CHART SPECIAL 70820 PATHOLOGY PATHOLOGY STAIN 8 & & GROUP 1 CYTOLOGY CYTOLOGY MICROORGA LAB LAB [facility] I&R GLUC BLD 40904 BRANDON TAYLOR GLUC MNTR 8 [facility] DEV INC INC CLEARED FDA SPEC HOME USE EGD 35407 EVELYN BARNARD 8 MEDICAL [place] BIOPSY SERV SINGLE/[place] NFS [address] BRANDON TAYLOR THER 8 [facility] PROPH/DX INC INC 1ST >1 HR ANES 24345 [facility] DOUG UPPER GI 8 ANESTH ERLIN L ENDOSCOPY OF THE [place] [address] PATHOLOGY PATHOLOGY SURG 8 & & PATHOLOGY CYTOLOGY CYTOLOGY LAB LAB GROSS&SHANTHI ROSCOPIC EXAM ESOPHAGOG 4516 BRANDON TAYLOR ASTRODUOD 8 [facility] ENOSCOPY INC INC WITH CLOSED BIOPSY LANCETS A4259 DIABETES DIABETES PER BOX 8 [facility] OF 100 LLC LLC NORMAL A4256 DIABETES DIABETES LOW AND 8 [facility] CARE [facility] HIGH LLC LLC CALIBRATO R SOLUTION/ CHIPS BLD GLU A4253 DIABETES DIABETES TEST/REAG 8 [facility] C[facility] [employer] [facility] HOME BLD GLU MON-50 PRTBLE E0431 EVELYN RIVAS GASEOUS 8 HOME HOME O2 SYS MEDICAL MEDICAL RENT; EQUIPMENT EQUIPMENT FLWMTR HUMIDFR&M ASK O2 CONC 1 E1390 EVELYN RIVAS DEL PORT 8 HOME HOME 85%/>02 MEDICAL MEDICAL CONC AT EQUIPMENT EQUIPMENT PRSC FLW RATE COMPREHEN 59100 BRANDON TAYLOR SIVE 8 [facility] METABOLIC INC INC PANEL HEPATITIS 14920 BRANDON TAYLOR A 8 [facility] [address] BRANDON TAYLOR AMYLASE 8 [facility] INC INC ACUTE 90806 BRANDON TAYLOR HEPATITIS 8 [facility] PANEL INC INC HEPATITIS 16902 BRANDON TAYLOR B SURF 8 [facility] [place] [address] BRANDON TAYLOR LIPASE 8 [facility] INC INC HEPATITIS 49391 BRANDON TAYLOR B CORE 8 [facility] ANTIBODY INC INC HBCAB TOTAL URNLS DIP 69065 BRANDON TAYLOR 8 [facility] STICK/TAB INC INC LET REAGENT AUTO MICROSCOP Y RADEX ABD 93086 [facility] MEDICAL FREDO AQT ABD IMAGING W/S/E/D ASSOCIATE VIEWS 1 S VIEW CH SUSCEPTIB 09311 BRANDON TAYLOR LTY STDY 8 [facility] ANTIMICRB INC INC IAL MICRO/AGA R DILUTJ COMPREHEN 80098 BRANDON TAYLOR SIVE 8 [facility] METABOLIC INC INC PANEL BLOOD 67136 BRANDON TAYLOR COUNT 8 [facility] COMPLETE INC INC AUTO&AUTO DIFRNTL WBC CULTURE 00873 BRANDON TAYLOR BCT 8 [facility] ISOL&PRSM INC INC PTV ID ISOLATE EA URINE CULTURE 75024 BRANDON TAYLOR BACTERIAL 8 [facility] INC INC QUANTTATI VE COLONY COUNT URINE O2 CONC 1 E1390 EVELYN RIVAS DEL PORT 8 HOME HOME 85%/>02 MEDICAL MEDICAL CONC AT EQUIPMENT EQUIPMENT PRSC FLW RATE PRTBLE E0431 EVELYN RIVAS GASEOUS 8 HOME HOME O2 SYS MEDICAL MEDICAL RENT; EQUIPMENT EQUIPMENT FLWMTR HUMIDFR&M ASK PRTBLE E0431 EVELYN RIVAS GASEOUS 8 HOME HOME O2 SYS MEDICAL MEDICAL RENT; EQUIPMENT EQUIPMENT FLWMTR HUMIDFR&M ASK O2 CONC 1 E1390 EVELYN GUZMAN PORT 8 HOME HOME 85%/>02 MEDICAL MEDICAL CONC AT EQUIPMENT EQUIPMENT PRSC FLW RATE SPRING-PO A4258 DIABETES DIABETES WERED 8 CARE CLUB CARE CLUB DEVICE [employer] FOR LANCET EACH NORMAL A4256 DIABETES DIABETES LOW AND 8 [facility] CARE CLUB HIGH [employer] CALIBRATO R SOLUTION/ CHIPS LANCETS A4259 DIABETES DIABETES PER BOX 8 [facility] OF 100 [facility] LLC BLD GLU A4253 DIABETES DIABETES TEST/REAG 8 [facility] CARE [facility] T [employer] HOME BLD GLU MON-50 HOME E0607 DIABETES DIABETES BLOOD 8 [facility] CLUB CARE CLUB GLUCOSE [facility] MONITOR O2 CONC 1 E1390 EVELYN RIVAS DEL PORT 8 HOME HOME 85%/>02 MEDICAL MEDICAL CONC AT EQUIPMENT EQUIPMENT PRSC FLW RATE PRTBLE E0431 EVELYN RIVAS GASEOUS 8 HOME HOME O2 SYS MEDICAL MEDICAL RENT; EQUIPMENT EQUIPMENT FLWMTR HUMIDFR&M ASK LIPID 39842 [facility] PANEL 8 [facility] HOSP I SI&R 58285 [facility] F/NJX PX 8 ORTH, DURING CARDIOLOG MARIANA C-CATHJ Y PULM&/OR CONSULTAN SELECT T L HRT 68389 [facility] CATHETERI 8 ORTH, ZATION CARDIOLOG [place]NA RETROGRAD Y [place] [address] [facility] C-CATHJ 8 ORTH, F/SLCTV C CARDIOLOG MARIANA ANGRPH Y CONSULTAN T GLUCOSE 62277 [facility] BLOOD 8 [facility] REAGENT [facility] HOSP STRIP COLLECTIO 50219 [facility] N VENOUS 8 [facility] BLOOD HOSP HOSP VENIPUNCT URE I SI&R 18507 [facility] F/NJX PX 8 [facility] DURING [facility] HOSP C-CATHJ VENTR&/AT R ANGRPH INJECTION 64964 [facility] CARDIAC 8 ORTH, CATHJ L CARDIOLOG MARIANA VENTR/L Y ATR CONSULTAN ANGIOGRAP T H ANGIOCARD 8853 [facility] IOGRAPHY 8 [facility] OF LEFT HOSP HOSP HEART STRUCTURE S LEFT 3722 [facility] HEART 8 [facility] CARDIAC HOSP HOSP CATHETERI ZATION CORONARY 8856 [facility] CENTRAL ARTERIOGR 8 [facility] APHY HOSP HOSP USING TWO CATHETERS BASIC 93165 [facility] METABOLIC 8 [facility] PANEL HOSP HOSP CALCIUM TOTAL COLLECTIO 96208 [facility] N VENOUS 8 [facility] BLOOD HOSP HOSP VENIPUNCT URE ECG 18082 [facility] ROUTINE 8 ORTH, ECG CARDIOLOG MARIANA W/LEAST Y 12 LDS CONSULTAN I&R ONLY T RADIOLOGI 53476 [facility] C EXAM 8 [facility] CHEST 2 HOSP HOSP VIEWS FRONTAL&L ATERAL BLOOD 17586 [facility] COUNT 8 [facility] COMPLETE HOSP HOSP AUTOMATED ECG 62599 [facility] ROUTINE 8 [facility] ECG HOSP HOSP W/LEAST 12 LDS TRCG ONLY W/O I&R ADMN SET A7003 [place] SM VOL 8 HOME HOME NONFILTR MEDICAL MEDICAL PNEUMAT EQUIPMENT EQUIPMENT NEBULIZR DISPBL SMALL A7004 [place] VOLUME 8 HOME HOME NONFILTR MEDICAL MEDICAL PNEUMATIC EQUIPMENT EQUIPMENT NEBULIZER DISPBL PRTBLE E0431 [place] GASEOUS 8 HOME HOME O2 SYS MEDICAL MEDICAL RENT; EQUIPMENT EQUIPMENT FLWMTR HUMIDFR&M ASK O2 CONC 1 E1390 EVELYN GUZMAN PORT 8 HOME HOME 85%/>02 MEDICAL MEDICAL CONC AT EQUIPMENT EQUIPMENT PRS FLW RATE CYTP 73556 [facility] WESLY, CERV/VAG 8 [place] INC MAR P AUTO THIN LAYER PREP MNL SCREEN RADIOLOGI 39901 BRANDON TAYLOR C 8 [facility]OSP EXAMINATI INC INC ON CHEST SINGLE VIEW FRONTAL AMB A0427 [facility] SERVICE 8 AMBULANCE AMBULANCE ALS SERVICE SERVICE EMERGENCY TRANSPORT LEVEL 1 CREATINE 94876 BRANDON TAYLOR KINASE 8 [facility] TOTAL INC INC CREATINE 99973 BRANDON TAYLOR KINASE MB 8 [facility] [place] [address] BRANDON TAYLOR TROPONIN 8 [facility] QUANTITAT INC INC ANNABELLA AMB A0422 JULEE LADD OXYGEN&O2 8 AMBULANCE AMBULANCE SUPPLIES SERVICE SERVICE LIFE SUSTAININ G SITUATION ECG 31461 BRANDON TAYLOR ROUTINE 8 [facility] ECG INC INC W/LEAST 12 LDS TRCG ONLY W/O I&R ECG 80697 BRANDON LEMUS ROUTINE 8 [facility] W/LEAST PROF SERV 12 LDS I&R ONLY BLOOD 66937 BRANDON TAYLOR COUNT 8 [facility] COMPLETE INC INC AUTO&AUTO DIFRNTL WBC BASIC 54854 BRANDON TAYLOR METABOLIC 8 [facility] PANEL INC INC CALCIUM TOTAL RHYTHM 71143 BRANDON TAYLOR ECG 1-3 8 [facility] LEADS INC INC TRACING ONLY W/O I&R GROUND A0425 JULEE LADD MILEAGE 8 AMBULANCE AMBULANCE PER SERVICE SERVICE STATUTE MILE PRTBLE E0431 EVELYN RIVAS GASEOUS 8 HOME HOME O2 SYS MEDICAL MEDICAL RENT; EQUIPMENT EQUIPMENT FLWMTR HUMIDFR&M ASK O2 CONC 1 E1390 EVELYN GUZMAN PORT 8 HOME HOME 85%/>02 MEDICAL MEDICAL CONC AT EQUIPMENT EQUIPMENT PRS FLW RATE DOPPLER 58606 BRANDON LEMUS ECHOCARD 8 [facility] KANNAN WAVE PROF SERV W/SPECTRA L DISPLAY DOP 11766 BRANDON LEMUS ECHOCARD [address] [facility] [place]AN[place] FLOW PROF SERV VELOCITY MAPPING ECHO 22330 BRANDON TAYLOR TRANSTHOR 8 [facility] AC R-T 2D INC INC W/WO M-MODE REC COMP INITIAL 85052 [place] SCOTTY OBSERVATI 8 [facility] ON [facility]NAL [facility] CARE/DAY MED 30 MINUTES RADIOLOGI 02192 [place] José MÉNDEZ EXAM 8 MEDICAL RACHEL P CHEST 2 IMAGING VIEWS ASSOCIATE FRONTAL&L S ATERAL NJX 25467 [facility] ANES&/STR 8 ERVIN Pichardo JLuis Carlos NRV CRV/THRC 1 LVL FLUOR 93734 [facility], NEEDLE/CA 8 ERVIN Nunn TH SPINE/PAR ASPINAL DX/[place] NJX 14707 [facility] ANES&/STR 8 ERVIN RICARDO NRV CRV/THRC EA LVL COMPREHEN 87600 BRANDON TAYLOR SIVE 8 [facility] [place] [address] BRANDON T[facility] THYROID 8 [facility] STIMULATI INC INC NG HORMONE TSH 25 88978 BRANDON TAYLOR HYDROXY 8 [facility] INCLUDES [place] [address] BRANDON TAYLOR THYROXINE 8 [facility] TOTAL INC INC THROMBOPL 97195 BRANDON TAYLOR ASTIN 8 [facility] TIME INC INC PARTIAL PLASMA/WH OLE BLOOD THYROID 98805 BRANDON TAYLOR HORM 8 [facility] UPTK/THYR INC INC OID HORMONE BINDING RATIO ECG 03007 BRANDON LEMUS ROUTINE 8 [facility] W/LEAST PROF SERV 12 LDS I&R ONLY PROTHROMB 27352 BRANDON TAYLOR IN TIME 8 [facility] INC INC BLOOD 77751 BRANDON TAYLOR COUNT 8 [facility] COMPLETE INC INC AUTO&AUTO DIFRNTL WBC ECG 66657 BRANDON TAYLOR ROUTINE 8 [facility] ECG INC INC W/LEAST 12 LDS TRCG ONLY W/O I&R O2 CONC 1 E1390 EVELYN GUZMAN PORT 8 HOME HOME 85%/>02 MEDICAL MEDICAL CONC AT EQUIPMENT EQUIPMENT PRSC FLW RATE PRTBLE E0431 EVELYN RIVAS GASEOUS 8 HOME HOME O2 SYS MEDICAL MEDICAL RENT; EQUIPMENT EQUIPMENT FLWMTR HUMIDFR&M ASK THERAPEUT 60802 KAVYA HOFF, ACTVITY 8 ERVIN Huffman DIRECT PT CONTACT EACH 15 MIN APPL 06309 KAVYA HOFF, MODALITY 8 ERVIN Huffman 1/> AREAS 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 L CHIROPRAC 35565 KAVYA HOFF, TIC 8 ERVIN Huffman MANIPULAT ANNABELLA [place] SPINAL 3-4 REGIONS APPLICATI 45301 KAVYA HOFF, ON 8 ERVIN Hufmfan MODALITY 1/> AREAS HOT/COLD PACKS APPLICATI 75411 KAVYA HOFF, ON 8 ERVIN Huffman MODALITY 1/> AREAS HOT/COLD PACKS THERAPEUT 51921 KAVYA HOFF, ACTVITY 8 ERVIN Huffman DIRECT PT CONTACT EACH 15 MIN CHIROPRAC 22831 KAVYA HOFF, TIC 8 ERVIN Huffman MANIPULAT ANNABELLA [place] SPINAL 3-4 REGIONS APPL 66669 KAVYA HOFF, MODALITY 8 ERVIN Huffman 1/> AREAS 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 L APPLICATI 62370 KAVYA HOFF, ON 8 ERVIN Huffman MODALITY 1/> AREAS HOT/COLD PACKS THERAPEUT 76102 KAVYA HOFF, ACTVITY 8 ERVIN Huffman DIRECT PT CONTACT EACH 15 MIN CHIROPRAC 38395 KAVYA HOFF, TIC 8 ERVIN Hfufman MANIPULAT ANNABELLA [place] SPINAL 3-4 REGIONS APPL 13051 KAVYA HOFF, MODALITY 8 ERVIN Huffman 1/> AREAS 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 L CV STRS 13423 LEONA SOLIS TST 8 HEART & NEZAR M XERS&/OR VASCULAR RX CONT ASSOC ECG I&R ONLY HOSPITAL G0378 BRANDON TAYLOR OBSERVATI 8 [facility] ON INC INC SERVICE PER HOUR MYOCRD 72208 LE[facility] SOLIS PRFUJ IMG 8 HEART & NEZAR M TOMOG VASCULAR SPECT EVICTION SPECIALIST ASSOC STD CV STRS 51767 BRANDON TAYLOR TST 8 [facility] XERS&/OR INC INC RX CONT ECG TRCG ONLY CV STRS 93535 LE[facility] SOLIS TST 8 HEART & NEZAR M XERS&/OR VASCULAR RX CONT ASSOC ECG W/O I&R MYOCRD 86650 LEONA SOLIS PRFUJ STD 8 HEART & NEZAR M WALL VASCULAR MOTION ASSOC QUAL/CASSANDRA STD TECHNETIU A9500 BRANDON Wayne TC-99M 8 [facility] SESTAMIBI INC INC DX PER STUDY DOSE MYOCRD 96708 BRANDON TAYLOR PRFUJ STD 8 [facility]OS[facility] EJEC FXJ INC INC OBSERVATI 45064 [place] RAEANN ON CARE 8 [facility] INTERNAL MED MANAGEMEN T GLUC BLD 32283 BRANDON TAYLOR GLUC MNTR 8 [facility] DEV INC INC CLEARED FDA SPEC HOME USE LIPID 00754 BRANDON TAYLOR PANEL 8 [facility] INC INC ECG 00302 BRANDON CARY, ROUTINE 8 [facility] W/LEAST PROF SERV 12 LDS I&R ONLY GLUC BLD 76369 BRANDON TAYLOR GLUC MNTR 8 [facility] DEV INC INC CLEARED FDA SPEC HOME USE BASIC 30442 BRANDON TAYLOR METABOLIC 8 [facility] PANEL INC INC CALCIUM TOTAL GROUND A0425 [facility] AM[facility]ULANCE AMBULANCE PER SERVICE SERVICE STATUTE MILE BLOOD 19736 BRANDON TAYLOR COUNT 8 [facility] COMPLETE INC INC AUTO&AUTO DIFRNTL WBC INITIAL 57348 [place] SCOTTY OBSERVATI 8 ZACKERY , ON INTERNAL [place]AN[place] F CARE/DAY MED 30 [place] [address] BRANDON TAYLOR TROPONIN 8 [facility] QUANTITAT INC INC ANNABELLA RHYTHM 33832 BRANDON TAYLOR ECG 1-3 8 [facility] LEADS INC INC TRACING ONLY W/O I&R IV NFUS 31717 BRANDON TAYLOR THER 8 [facility] PROPH/DX INC INC EA HR CREATINE 82335 BRANDON TAYLOR KINASE 8 [facility] TOTAL INC INC AMB A0427 [facility] SERVICE 8 AMBULANCE AMBULANCE ALS SERVICE SERVICE EMERGENCY TRANSPORT LEVEL 1 IV NFS 37648 BRANDON TAYLOR THER 8 [facility] PROPH/DX INC INC 1ST >1 HR RADIOLOGI 42184 José DUKES 8 MEDICAL RACHEL Nunn EXAMINATI IMAGING ON CHEST ASSOCIATE SINGLE S VIEW FRONTAL ECG 02597 BRANDON TAYLOR ROUTINE 8 [facility] ECG INC INC W/LEAST 12 LDS TRCG ONLY W/O I&R CREATINE 72883 BRANDON TAYLOR KINASE MB 8 [facility] FRACTION INC INC ONLY HOSPITAL G0378 BR[facility]ON TAYLOR OBSERVATI 8 [facility] ON INC INC SERVICE PER HOUR O2 CONC 1 E1390 EVELYN RIVAS DEL PORT 8 HOME HOME 85%/>02 MEDICAL MEDICAL CONC AT EQUIPMENT EQUIPMENT PRSC FLW RATE PRTBLE E0431 EVELYN RIVAS GASEOUS 8 HOME HOME O2 SYS MEDICAL MEDICAL RENT; EQUIPMENT EQUIPMENT FLWMTR HUMIDFR&M ASK BLOOD 49038 BRANDON TAYLOR COUNT 8 [facility] COMPLETE INC INC AUTO&AUTO DIFRNTL WBC NDL EMG 2 12922 SAMANTA ENGLAND, OSWALDOR W/WO 8 CHUCK CHUCK RELATED PARASPINA L AREAS HEMOGLOBI 97953 BRANDON TAYLOR N 8 [facility] GLYCOS[place] [address] BRANDON TAYLOR FOLIC 8 [facility] [place] [address] BRANDON BRANDON THYROXINE 8 [facility] TOTAL INC INC RHEUMATOI 97942 BRANDON TAYLOR D FACTOR 8 [facility] [place] [address] BRANDON BRANDON THYROID 8 [facility] STIMULATI INC INC NG HORMONE TSH SYPHILIS 01011 BRANDON BRANDON TEST 8 [facility] NON-TREPO INC INC NEMAL ANTIBODY QUAL NRV CNDJ 13615 SAMANTA ENGLAND, AMPLT&LAT 8 CHUCK HAYWARDY EA NRV MOTOR W/F-WAVE STD COMPREHEN 06525 BRANDON TAYLOR SIVE 8 [facility] METABOLIC INC INC PANEL NRV CNDJ 81353 SAMANTA ENGLAND, AMPLITUDE 8 CHUCK OWODS & [place] [address] BRANDONKATI TAYLOR THIAMINE- 8 [facility] VITAMIN INC INC B-1 CYANOCOBA 83840 BRANDON TAYLOR PRATEEK 8 [facility] VITAMIN INC INC B-12 O2 CONC 1 E1390 EVELYN RIVAS DEL PORT 8 HOME HOME 85%/>02 MEDICAL MEDICAL CONC AT EQUIPMENT EQUIPMENT PRSC FLW RATE PRTBLE E0431 EVELYN RIVAS GASEOUS 8 HOME HOME O2 SYS MEDICAL MEDICAL RENT; EQUIPMENT EQUIPMENT FLWMTR HUMIDFR&M ASK Encounters Encounter Start End Date Code Location Performer Type Date [facility] - 7 7 [id number] 7 7 [facility] VISIT [facility]IGH/URGE NT SEVERITY HOSPITAL [facility] 7 7 [facility] 7 7 [facility] BRAND[facility] - OTHER 7 7 [facility] BR[facility] - 7 7 [facility] 7 7 [facility] OUTPATIEN INC T OFFICE [id number] [facility] YMRA OUTPATIEN 7 7 PHYSICIAN T VISIT GROUP 15 MINUTES OFFICE 96214 [facility] P[facility]IAM OUTPATIEN 7 7 MEDICAL ASTELLANO T [facility] 30 SERV S MINUT[facility] - 7 7 [facility] T OFFICE [id number] [facility] OUTPATIEN 7 7 PHYSICIAN T VISIT S GROUP [address] [facility] 7 7 [facility] PHYS HIGH/URGE NT SEVERITY EMERGENCY 52293 [facility] 7 7 [facility] T VISIT LOW/MODER SEVERITY EMERGENCY 46798 [facility] SHAH DEPT 7 7 PHYSICIAN VISIT S, [facility] HIGH SEVERITY& THREAT [facility]ANDON - 7 7 [facility] - 7 7 [facility] 72503 [facility] 7 7 [facility] T VISIT [facility]IGH/URGE NT SEVERITY EMERGENCY 38829 [facility] PEDROZA DEPT 7 7 [facility]YSIC[facility] S, [facility]& THREAT [facility] BRANDON - 7 7 [facility] - OTHER 7 7 [facility] - 7 7 [facility]IEN INC T EMERGENCY 07837 [facility] 7 7 [facility] T VISIT MODERATE SEVERITY EMERGENCY [id number] LEIGHTON LOPEZ 7 7 PHYSICIAN DEPARTMEN S, [facility] T VISIT HIGH/URGE NT SEVERITY OFFICE [id number] BRANDON LUIS OUTPATIEN [address] MINUTES [facility] BRANDON - OTHER 7 7 [facility] EMERGENCY [id number] BRAND[facility] 7 7 [facility] VISIT LOW/MODER SEVERITY EMERGENCY 87584 LEIGHT[facility] SINGH DEPT 7 7 PHYSICIAN VISIT S, [facility] HIGH SEVERITY& THREAT [facility] BRANDON - 7 7 [facility] - 7 7 [facility] - 7 7 [facility] 95820 [facility] 7 7 [facility] VISIT LOW/MODER SEVERITY EMERGENCY 76544 LEIGHT[facility] PEDROZA DEPT 7 7 PHYSICIAN VISIT S, [facility] HIGH SEVERITY& THREAT [facility] BRANDON - OTHER [address] [facility] BRANDON - 7 7 [facility] OUTPATIEN [facility] - 7 7 [facility] - 6 6 [facility] 78048 LEIGHTON PEDROZA 6 6 PHYSICIAN DEPARTMEN S, [facility] T VISIT HIGH/URGE NT SEVERITY HOSPITAL BR[facility]ON - 6 6 [facility] 99651 BR[facility] 6 6 [facility] [facility] VISIT LOW/MODER SEVERITY OFFICE 52566 [facility] LORIE BANNER [facility] OUTPATIEN 6 6 PHYSICIAN T VISIT S GROUP 25 MINUT[facility] HOSPITAL [facility] 6 6 [facility] - 6 6 [facility] EMERGENCY 64836 [facility] 6 6 [facility] T VISIT LOW/MODER SEVERITY EMERGENCY 71239 [facility] PEDROZA 6 6 PHYSICIAN ILIR Oleary [facility] T VISIT HIGH/URGE NT SEVERITY HOSPITAL [facility] - 6 6 [facility] OUTPATIEN [facility] T OFFICE 80262 [facility] LORIE MCNALLY OUTPATISABRINA 6 6 PHYSICIAN Luis Carlos NEW 45 S GROUP MINUTES EMERGENCY 29984 [facility] PEDROZA 6 6 PHYSICIAN ILIR DANIELS S [facility] T VISIT HIGH/URGE NT SEVERITY EMERGENCY 78642 [facility] JHAVERI 6 6 PHYSICIAN FRANCES Oleary [facility] T VISIT HIGH/URGE NT SEVERITY HOSPITAL [facility] - 6 6 [facility] OUTPATIEN [facility] EMERGENCY 14701 [facility] 6 6 [facility] T VISIT LOW/MODER SEVERITY HOSPITAL [facility] - 6 6 [facility] OUTPATIEN [facility] OFFICE 08917 [facility] 6 6 FOOT & T NEW 30 ANKLE CE MINUTES HOSPITAL [facility] 6 6 [facility] OUTPATIEN [facility] EMERGENCY 29618 [facility] 6 6 [facility] T VISIT LOW/MODER SEVERITY EMERGENCY 14755 [facility] SHAH 6 6 PHYSICIAN SHANTHI Oleary [facility] T VISIT HIGH/URGE NT SEVERITY HOSPITAL [facility] - 6 6 [facility] OUTPATIEN [facility] BR[facility] - 6 6 [facility] OUTPATIEN [facility] T EMERGENCY 23198 [facility] MARTINEZ 6 6 PHYSICIAN JR GINA DANIELS S [facility] T VISIT HIGH/URGE NT SEVERITY EMERGENCY 96682 [facility] 6 6 [facility] T VISIT LOW/MODER SEVERITY HOSPITAL [facility] - 6 6 [facility] OUTPATIEN INC T OFFICE 58570 [facility] KEREN ALMAGUER OUTPATIEN 6 6 PHYSICIAN T VISIT S GROUP 10 MINUTES HOSPITAL [facility] - 6 6 [facility] INC T EMERGENCY 41297 [facility] MAC 6 6 PHYSICIAN U ANITA [facility], [facility] VISIT HIGH/URGE NT SEVERITY EMERGENCY 65372 [facility] 6 6 [facility] LOW/MODER SEVERITY [facility] - 6 6 [facility] OUTPATIEN [facility] T EMERGENCY 08154 [facility] SHAH 6 6 [facility] T VISIT HIGH/URGE NT SEVERITY EMERGENCY 84712 [facility] 6 6 [facility] T VISIT LIMITED/M INOR PROB OFFICE 50177 [facility] 6 6 PHYSICIAN JERRY T VISIT S GROUP 10 MINUTES HOSPITAL [facility] - 6 6 [facility] OUTPATIEN [facility] T EMERGENCY 98005 [facility] 6 6 [facility] T VISIT LOW/MODER SEVERITY HOSPITAL [facility] - 6 6 [facility] OUTPATIEN [facility] T OFFICE 11396 EVELYN HALLMAN JAMES OUTPATIEN 6 6 [facility] 10 MINUTES HOSPITAL [facility] - OTHER 6 6 [facility] HOSPITAL BRNADON - OTHER 6 6 [facility] OTHER 5 5 [facility] HOSPITAL [facility] - 5 5 [facility] OUTPATIEN [facility] T EMERGENCY 56917 [facility] SHAH DEPT 5 5 PHYSICIAN SHANTHI VISIT S, [facility] HIGH SEVERITY& THREAT [facility] EMERGENCY 77418 [facility] 5 5 [facility] T VISIT MODERATE SEVERITY HOSPITAL [facility] - 5 5 [facility] EMERGENCY 53946 [facility] SHAH 5 5 PHYSICIAN [facility] S, [facility] T VISIT HIGH/URGE NT SEVERITY EMERGENCY 16195 LEIGHTON MAC 5 5 PHYSICIAN U ANITA [facility] S, [facility] T VISIT HIGH/URGE NT SEVERITY OFFICE 21784 [facility] 5 5 [facility] T VISIT INTERNAL 15 MED MINUTES EMERGENCY 28145 LEIGHTON SHAH DEPT 5 5 PHYSICIAN SHANTHI VISIT S, [facility] HIGH SEVERITY& THREAT FUNCJ EMERGENCY 90773 [facility] 5 5 [facility] T VISIT HIGH/URGE NT SEVERITY HOSPITAL [facility] - 5 5 [facility] BR[facility] - 5 5 [facility] - 5 5 [facility] - 5 5 [facility] 5 5 [facility] EMERGENCY 85492 LE[place] SHAH 5 5 PHYSICIAN [facility] S, [facility] T VISIT HIGH/URGE NT SEVERITY EMERGENCY 98788 [facility] 5 5 [facility] T VISIT LOW/MODER SEVERITY OFFICE 45330 [place] [facility] [facility] 5 5 MEDICAL AYANANE T VISIT SERV ACH 25 FOUNDATIO MINUTES HOSPITAL [facility] - 5 5 [facility] 5 5 [facility] - OTHER 5 5 [facility] EMERGENCY 25310 [facility] MARTINEZ, 5 5 [facility] T VISIT P HIGH/URGE NT SEVERITY HOSPITAL [facility] - 5 5 [facility] OUTPATIEN INC T OFFICE 74652 [place] OUTPATIEN 5 5 MEDICAL AYANANE T VISIT SERV ACH 25 FOUNDATIO MINUTES [facility] BRANDON - 5 5 [facility] INC T EMERGENCY 98941 [facility] MENARD [facility] 5 5 [facility] T VISIT P HIGH/URGE NT SEVERITY OFFICE 75389 [facility] PETTEY OUTPATIEN 4 4 PHYSICIAN JAM T VISIT S GROUP 25 MINUTES EMERGENCY 13723 [facility] 4 4 [facility] INC T VISIT LOW/MODER SEVERITY HOSPITAL [facility] - 4 4 [facility] OUTPATIEN INC T EMERGENCY 54868 [facility] 4 4 [facility] EMERGENCY T VISIT PHYS MODERATE SEVERITY OFFICE 50542 EAR, NOSE SHASHY OUTPATIEN 4 4 AND SOBEIDA T VISIT THROAT 25 SPECIAL MINUTES OFFICE 73344 MARNI MARNI OUTPATIEN 4 4 LUIS ALFREDO LUIS ALFREDO T VISIT 25 MINUTES OFFICE 59421 EAR, NOSE SHASHY OUTPATIEN 4 4 AND SOBEIDA T VISIT THROAT 25 SPECIAL MINUTES HOSPITAL [facility] - 4 4 [facility] INC T OFFICE 15161 [place] OUTPATIEN 4 4 MEDICAL AYANANE T VISIT SERV ACH 25 FOUNDATIO MINUTES HOSPITAL UNIVERSIT - 4 4 [facility] T EMERGENCY 09155 DOM VICTORIA 4 4 K[facility]AR [facility] EMERGENCY T VISIT PHYS HIGH/URGE NT SEVERITY HOSPITAL UNIVERSIT - 4 4 [facility] T OFFICE 59279 [facility] OUTPATIEN 4 4 DERMATOLO DERMATOLO T NEW 30 GY GY MINUTES HOSPITAL [facility] - 4 4 [facility] - 4 4 [facility] BRAND[facility] - 4 4 [facility]IEN [facility] UNIVERSIT - OTHER 4 4 Y [facility] HOSPITAL UNIVERSIT - 4 4 Y [facility] EMERGENCY 81946 UNIVERSIT 4 4 Y [facility] VISIT HIGH/URGE NT SEVERITY [facility] BRANDON - OTHER 4 4 [facility] EMERGENCY 04864 [facility] DEPT 4 4 KAMAR VISIT EMERGENCY HIGH PHYS SEVERITY& THREAT [facility] BRANDON - 4 4 [facility]IEN [facility] BRANDON - Sue 4 [facility] BRANDON - DHARMESH 4 4 MEM H[facility] INC OFFICE 74625 [place] NATACHA PHI OUTPATIEN 4 4 MEDICAL T NEW 30 [facility] FOUNDATIO OFFICE 81836 [facility] MIRANDA OUTPATIEN 4 4 [facility] 15 P MINUTES [facility]ON - 4 4 [facility]EN [facility] EMERGENCY 17830 MARLO SHAH DEPT 4 4 EMERGENCY SHANTHI VISIT SERVICES HIGH SEVERITY& THREAT [facility] OFFICE 82394 BUDDHISM GARO OUTPATIEN 4 4 NEUROLOGY FERNANDEZ T NEW 45 [facility] BR[facility] Tran 4 4 [facility] BRANDON - 4 4 [facility] OUTPATIEN [facility] BRANDON - 4 4 [facility]EN [facility] Emergency WALLY Shah MD (ER) 3 00:03 3 00:46 [facility] EMERGENCY 62317 MARLO SHAH DEPT 3 3 EMERGENCY SHANHTI VISIT SERVICES HIGH SEVERITY& THREAT [facility] BRANDON - 3 3 [facility] OUTPATIEN INC OFFICE 80691 [facility] RUBEN OUTPATIEN 3 3 [facility] 10 P MINUTES [facility] BRANDON - 3 3 [facility] OUTPATIEN INC [facility] BRANDON - 3 3 [facility] OUTPATIEN INC OFFICE 79556 [facility] MIRANDA OUTPATIEN 3 3 [facility] 10 P MINUTES [facility] BRANDON - 3 3 [facility] OUTPATIEN INC Emergency WALLY Shah MD (ER) 3 18:37 3 21:35 [facility] BR[facility]ON - 3 3 [facility] OUTPATIEN INC EMERGENCY 72436 [facility] 3 3 [facility] DEPARTMEN [facility] T VISIT LOW/MODER SEVERITY EMERGENCY 48086 MARLO COTTO DEPT 3 3 EMERGENCY BRO VISIT SERVICES HIGH SEVERITY& THREAT [facility] OFFICE 65271 MARNI MICHELLEHBURN OUTPATIEN 3 3 LUIS ALFREDO LOBATO T VISIT 15 MINUTES HOSPITAL [facility] - 3 3 [facility]EN [facility] - 3 3 [facility] - 3 3 [facility] - 3 3 [facility] OUTPATIEN INC T OFFICE 83969 MARNI MARNI OUTPATIEN 3 3 LUIS ALFREDO LOBATO T VISIT 25 MINUTES HOSPITAL [facility] - 3 3 [facility] OUTPATIEN INC T OFFICE 11204 [place] MCKEMIE OUTPATIEN 3 3 ZACKERY HUMPHREYS T VISIT INTERNAL 15 MED MINUTES HOSPITAL [facility] - 3 3 [facility] OUTPATIEN INC T OFFICE 34778 MARNI MARNI OUTPATIEN 3 3 LUIS ALFREDO LOBATO T VISIT 40 MINUTES HOSPITAL [facility] - 3 3 [facility] OUTPATIEN INC T OFFICE 09215 [place] MCKEMIE OUTPATIEN 3 3 AZCKERY HUMPHREYS T VISIT INTERNAL 15 MED MINUTES HOSPITAL [facility] - 3 3 [facility] OUTPATIEN INC T OFFICE 67648 [place] MUSTAPHA OUTPATIEN 3 3 ZACKERY ZHAO T VISIT INTERNAL 15 MEDI MINUTES OFFICE 43412 [place] MCKEMIE OUTPATIEN 3 3 ZACKERY HUMPHREYS T VISIT INTERNAL 15 MED MINUTES OFFICE 69272 [place] MCKEMIE OUTPATIEN 3 3 ZACKERY HUMPHREYS T VISIT INTERNAL 15 MED MINUTES OFFICE 15514 [place] MUSTAPHA OUTPATIEN 3 3 ZACKERY ZHAO T VISIT INTERNAL 15 MEDI MINUTES HOSPITAL [facility] - 3 3 [facility] OUTPATIEN INC T OFFICE 48674 [place] MCKEMIE OUTPATIEN 3 3 ZACKERY HUMPHREYS T VISIT INTERNAL 15 MED MINUTES HOSPITAL [facility] - 3 3 [facility] OUTPATIEN INC T OFFICE 12209 [place] MUSTAPHA OUTPATIEN 3 3 ZACKERY ZHAO T VISIT INTERNAL 15 MEDI MINUTES HOSPITAL [facility] - 3 3 [facility] OUTPATIEN INC [facility] - 3 3 [facility] OUTPATIEN INC T OFFICE 08345 [facility] PETTEY OUTPATIEN 3 3 PHYSICIAN LUCITA T NEW 30 S GROUP MINUTES OFFICE 36338 [place] MUSTAPHA OUTPATIEN 3 3 VALLEY CECE T VISIT INTERNAL 15 MEDI MINUTES HOSPITAL [facility] - 3 3 [facility] OUTPATIEN INC T OFFICE 47868 [place] MUSTAPHA OUTPATIEN 3 3 ZACKERY CECE T VISIT INTERNAL 15 MEDI MINUTES OFFICE 44359 MARNI MARNI OUTPATIEN 3 3 LUIS ALFREDO LUIS ALFREDO T VISIT 25 MINUTES OFFICE 13340 MARNI MARNI OUTPATIEN 3 3 LUI SALFREDO LUIS ALFREDO T VISIT 25 MINUTES OFFICE 68874 [place] MUSTAPHA OUTPATIEN 3 3 SEAGRAVES CECE T VISIT INTERNAL 15 MEDI MINUTES HOSPITAL [facility] - 3 3 [facility] OUTPATIEN INC T OFFICE 35007 [facility] PHILIP OUTPATIEN 3 3 [facility] 30 HOSPITAL MINUTES P OFFICE 79117 [place] MUSTAPHA OUTPATIEN 3 3 SEAGRAVES CECE T VISIT INTERNAL 15 MEDI MINUTES OFFICE 29532 [place] MCKEMIE OUTPATIEN 3 3 ZACKERY HUMPHREYS T VISIT INTERNAL 15 MED MINUTES HOSPITAL [facility] - 3 3 [facility] INPATIENT INC OFFICE 80370 [place] MUSTAPHA OUTPATIEN 3 3 SEAGRAVES CECE T VISIT INTERNAL 15 MEDI MINUTES HOSPITAL [facility] - 3 3 [facility] OUTPATIEN INC [facility] - 2 2 [facility] OUTPATIEN INC T EMERGENCY 41333 MARLO DHALIWAL 2 2 EMERGENCY JAM [facility] SERVICES T VISIT HIGH/URGE NT SEVERITY OFFICE 93054 [place] MCKEMIE OUTPATIEN 2 2 ZACKERY HUMPHREYS T VISIT INTERNAL 15 MED MINUTES HOSPITAL [facility] - 2 2 [facility] OUTPATIEN INC T OFFICE 35311 H[facility]IZON BAZZI OUTPATIEN 2 2 [facility] 15 MINUTES OFFICE 97109 H[facility]IZ[facility] BAZZI OUTPATIEN 2 2 [facility] VIS[facility] C[facility] 15 MINUTES HOSPITAL CENTRAL - 2 2 BUDDHISM OUTPATIEN HOSP T EMERGENCY 55784 [facility] MARCELINO DEPT 2 2 KAMAR DEIDRA VISIT EMERGENCY HIGH PHYS SEVERITY& THREAT F[facility]J OFFICE 34648 HORIZON BAZZI OUTPATIEN 2 2 [facility] 15 MINUTES OFFICE 35336 [facility] BAZZI OUTPATIEN 2 2 [facility] 15 MINUTES OFFICE 58303 [facility]IZ[facility] BAZZI OUTPATIEN 2 2 [facility] T VISIT [facility] CENTER 15 MINUTES OFFICE 35834 COLORECTA PALOMO OUTPATIEN 2 2 L SURGIAL CATRACHITO T NEW 45 MINUTES ASSOCIATE OFFICE 68592 HORIZON BAZZI OUTPATIEN 2 2 [facility] T NEW 45 E CENTER MINUTES EMERGENCY 89442 [facility] 2 2 [facility] DEPARTMEN EMERGENCY T VISIT SERVI HIGH/URGE NT SEVERITY OFFICE 51766 José LYONS OUTPATIEN 2 2 ELOY GAMBOA T VISIT MD [facility] 25 MINUTES OFFICE 65234 [place] MUSTAPHA OUTPATIEN 2 2 [facility] T VISIT INTERNAL 15 MEDI MINUTES HOSPITAL [facility] - 2 2 [facility] OUTPATIEN INC T HOSPITAL [facility] - 2 2 [facility] OUTPATIEN INC T OFFICE 44908 [place] MCKEMIE OUTPATIEN 2 2 [facility] T VISIT INTERNAL 15 MED MINUTES HOSPITAL UNIVERSIT - 2 2 Y OUTPATIEN HOSPITAL T EMERGENCY 15248 UNIVERSIT DEPT 2 2 Y VISIT HOSPITAL HIGH SEVERITY& THREAT [facility] EMERGENCY 89883 [facility] 2 2 [facility] DEPARTMEN INC T VISIT HIGH/URGE NT SEVERITY HOSPITAL [facility] - 2 2 [facility] OUTPATIEN INC T EMERGENCY 47615 MARLO FATIMA DEPT 2 2 EMERGENCY PETR VISIT SERVICES HIGH SEVERITY& THREAT [facility] OFFICE 94597 [place] MCKEMIE OUTPATIEN 2 2 ZACKERY HUMPHREYS T VISIT INTERNAL 15 MED MINUTES EMERGENCY 78761 MARLO SHAH DEPT 2 2 EMERGENCY SHANTHI VISIT SERVICES HIGH SEVERITY& THREAT [facility] BR[facility] - 2 2 [facility] OUTPATIEN INC T EMERGENCY 52573 [facility] 2 2 [facility] DEPARTMEN INC T VISIT HIGH/URGE NT SEVERITY OFFICE 36944 [place] BESSON OUTPATIEN 2 2 [facility] T VISIT INTERNAL 15 MED MINUTES HOSPITAL [facility] - 2 2 [facility] OUTPATIEN INC T EMERGENCY 77626 MARLO SHAH 2 2 EMERGENCY [facility] DEPARTMEN SERVICES T VISIT HIGH/URGE NT SEVERITY HOSPITAL [facility] - 2 2 [facility] OUTPATIEN INC T EMERGENCY 29922 [facility] 2 2 [facility] DEPARTMEN INC T VISIT MODERATE SEVERITY OFFICE 07863 [place] MCKEMIE OUTPATIEN 2 2 ZACKERY HUMPHREYS T VISIT INTERNAL 15 MED MINUTES OFFICE 22063 [place] BESSON OUTPATIEN 2 2 [facility] T VISIT INTERNAL 25 MED MINUTES HOSPITAL [facility] - 2 2 [facility] OUTPATIEN INC T OFFICE 37795 MARNI MARNI OUTPATIEN 2 2 LUIS ALFREDO LUIS ALFREDO T VISIT 25 MINUTES HOSPITAL [facility] - 2 2 [facility] OUTPATIEN INC T EMERGENCY 30862 [facility] 2 2 [facility] DEPARTMEN INC T VISIT MODERATE SEVERITY [facility]OSPITAL [facility] - 2 2 [facility] OUTPATIEN INC T HOSPITAL [facility] - 2 2 [facility] OUTPATIEN INC T OFFICE 34123 MARNI MARNI OUTPATIEN 2 2 LUIS ALFREDO LOBATO T NEW 45 MINUTES OFFICE 45742 [place] MUSTAPHA OUTPATIEN 2 2 ZACKERY ZHAO T VISIT INTERNAL 15 MEDI MINUTES OFFICE 21708 [place] MUSTAPHA OUTPATIEN 2 2 ZACKERY CECE T VISIT INTERNAL 15 MEDI MINUTES OFFICE 53634 [place] MUSTAPHA OUTPATIEN 2 2 ZACKERY CECE T VISIT INTERNAL 10 MEDI MINUTES EMERGENCY 33094 MARLO AKERS DEPT 2 2 EMERGENCY VISIT SERVICES HIGH SEVERITY& THREAT FUNJ EMERGENCY 87096 [facility] 2 2 [facility] DEPARTMEN INC T VISIT HIGH/URGE NT SEVERITY HOSPITAL [facility] - 2 2 [facility] OUTPATIEN INC T OFFICE 08144 [place] MCKEMIE OUTPATIEN 2 2 ZACKERY HUMPHREYS T VISIT INTERNAL 15 MED MINUTES OFFICE 11947 KENZIE ESPINO OUTPATIEN 2 2 LUCITA LANDRUM T NEW 60 MINUTES OFFICE 78761 [place] BESSON OUTPATIEN 2 2 ZACKERY IRIZARRY VISIT INTERNAL 15 MED MINUTES EMERGENCY 84309 [facility] 2 2 [facility] DE[facility]MEN INC T VISIT HIGH/URGE NT SEVERITY [facility]OSPITAL [facility] - 2 2 [facility] OUTPATIEN INC T OFFICE 00809 [place] GAL [facility] OUTPATIEN 1 1 MEDICAL T NEW 30 SERV MINUTES FOUNDATIO OFFICE 29376 EAR, NOSE SHASHY OUTPATIEN 1 1 AND SOBEIDA T VISIT THROAT 25 SPECIAL MINUTES HOSPITAL [facility] - 1 1 [facility] OUTPATIEN INC T OFFICE 12840 EAR, NOSE SHASHY OUTPATIEN 1 1 AND SOBEIDA T NEW 30 THROAT MINUTES SPECIAL OFFICE 87901 [facility] WELLS OUTPATIEN 1 1 [facility] T VISIT INTERNAL 15 MED MINUTES HOSPITAL [facility] - 1 1 [facility] BR[facility] - 1 1 [facility] OUTPATIEN INC T EMERGENCY 07972 [facility] 1 1 [facility] DEPARTMEN [facility] T VISIT HIGH/URGE NT SEVERITY HOSPITAL [facility] - 1 1 [facility]EN [facility] - 1 1 [facility] OFFICE 38339 ELLEN LIMON OUTPATIEN 1 1 [facility] T VISIT 10 MINUTES EMERGENCY 55126 [facility] 1 1 [facility] T VISIT LIMITED/M INOR PROB EMERGENCY 55132 MARLO AKERS 1 1 EMERGENCY DEPARTMEN SERVICES T VISIT HIGH/URGE NT SEVERITY [facility]OSPITAL [facility] - 1 1 [facility] BR[facility]ON - 1 1 [facility] BRANDON - 1 1 [facility] OFFICE 87566 PAWSAT PAWSAT OUTPATIEN 1 1 MAR AUG T NEW 30 MINUTES EMERGENCY 64127 [facility] 1 1 [facility] T VISIT MODERATE SEVERITY HOSPITAL [facility] - 1 1 [facility] OUTPATIEN INC T EMERGENCY 04463 MARLO SHAH 1 1 EMERGENCY SHANTHI DEPARTMEN SERVICES T VISIT HIGH/URGE NT SEVERITY [facility]OSPITAL [facility] - 1 1 [facility]EN [facility] - 1 1 [facility] - 1 1 [facility] - 1 1 [facility] OUTPATIEN INC OFFICE 64331 [facility] OUTPATIEN 1 1 DEIDRA GAY [facility] 45 MINUTES OFFICE 12985 CARIN DEL ROSARIO OUTPATIEN 1 1 JANET GONZALES [facility] 45 MINUTES HOSPITAL [facility] - 1 1 [facility] - 1 1 [facility]PAT[facility] - 1 1 [facility] - 1 1 [facility] OUTPATIEN INC EMERGENCY 75924 MARLO JACKSON OSWALD 1 1 EMERGENCY DEPARTMEN SERVICES VISIT HIGH/URGE NT SEVERITY EMERGENCY 34709 [facility] 1 1 [facility] VISIT HIGH/URGE NT SEVERITY HOSPITAL [facility] - 1 1 [facility] OUTPATIEN [facility] EMERGENCY 50273 MARLO JACKSON OSWALD DEPT 1 1 EMERGENCY VISIT SERVICES HIGH SEVERITY& THREAT [facility] BRANDON - 1 1 [facility] OUTPATIEN [facility] BRANDON - 1 1 [facility]PAT[facility] INC [facility] - 1 1 [facility]PAT[facility]EN [facility] - 1 1 [facility]PAT[facility]EN [facility] - 1 1 [facility] OUTPATIEN [facility] - 1 1 [facility] OUTPATIEN INC OFFICE 61242 José LYONS OUTPATIEN 1 1 ELOY SIMEON 45 MD [facility] - 1 1 [facility] OUTPATIEN INC [facility] T EMERGENCY 57857 MARLO SHAH, 0 0 EMERGENCY [facility] DEPARTMEN SERVICES T VISIT MODERATE ASSOCIATE SEVERITY S EMERGENCY [id number] [facility] 0 0 [facility] T VISIT LOW/MODER SEVERITY [facility] T EMERGENCY [id number] [facility] 0 0 [facility] T VISIT MODERATE SEVERITY [facility] T EMERGENCY 48803 MARLO CORTÉS, 0 0 EMERGENCY [facility] DEPARTMEN SERVICES O T VISIT HIGH/URGE ASSOCIATE NT S SEVERITY EMERGENCY 36295 MARLO SHAH, 0 0 EMERGENCY [facility] DEPARTMEN SERVICES T VISIT MODERATE ASSOCIATE SEVERITY S [facility] T EMERGENCY 57848 [facility] 0 0 [facility] DE[facility] T VISIT LOW/MODER SEVERITY [facility] 9 [facility] T OFFICE 56396 [facility], [facility]PATIEN 9 9 [facility] T VISIT INTERNAL 15 MED MINUTES OFFICE 53525 [facility], OUTPATIEN 9 9 [facility] T VISIT INTERNAL 25 MED MINUTES [facility] 9 [facility] T OFFICE 28111 [facility] ROSAURAE OUTPATIEN 9 9 ZACKERY JR, T VISIT INTERNAL KANNAN F 10 MED MINUTES OFFICE 98802 [facility] BESJEWEL, OUTPATIEN 9 9 [facility] T VISIT INTERNAL 15 MED MINUTES [facility] 9 [facility] T EMERGENCY 60855 [facility] 9 9 [facility] DEPART[facility] INC T VISIT MODERATE SEVERITY EMERGENCY 88950 MARLO SHAH, 9 9 EMERGENCY [facility] DEPARTMEN SERVICES T VISIT HIGH/URGE ASSOCIATE NT S SEVERITY OFFICE 80546 LEANA DUEÑAS OUTPATIEN 9 9 CHELSY Headley T VISIT 15 MINUTES EMERGENCY 98165 MARLO SHAH, 9 9 EMERGENCY [facility] DEPARTMEN SERVICES T VISIT MODERATE ASSOCIATE SEVERITY S EMERGENCY 34238 MARLO CORTÉS, DEPT 9 9 EMERGENCY [facility] VISIT SERVICES O HIGH SEVERITY& ASSOCIATE THREAT S FUN EMERGENCY 05032 [facility] 9 9 [facility] DE[facility] T VISIT MODERATE SEVERITY EMERGENCY 59232 MARLO SHAH, 9 9 EMERGENCY [facility] DEPARTMEN SERVICES T VISIT HIGH/URGE ASSOCIATE NT S SEVERITY [facility] 9 9 [facility] T OFFICE 02849 LEANA DUEÑAS OUTPATIEN 9 9 CHE[facility] T VISIT 15 MINUTES [facility] - 9 9 [facility] T EMERGENCY 20992 [facility] 9 9 [facility] T VISIT HIGH/URGE NT SEVERITY EMERGENCY 15890 MARLO CORTÉS DEPT 9 9 [facility]ENC[facility] VISIT SERVICES O HIGH SEVERITY& ASSOCIATE THREAT S FUN EMERGENCY 26030 MARLO CENTENO DEPT 9 9 EMERGENCY [facility] VISIT SERVICES HIGH SEVERITY& ASSOCIATE THREAT S FUN EMERGENCY 09184 [facility] HARRIST 9 9 [facility] HIGH SEVERITY& THREAT FUNJ [facility]OS[facility] - 9 9 [facility] T OFFICE 84810 MARY HERNANDEZ OUTPATIEN 9 9 OSWALDO Franz T VISIT 10 MINUTES [facility] 9 9 [facility] 9 [facility] T OFFICE 11347 MARY HERNANDEZ OUTPATIEN 9 9 OSWALDO Franz T VISIT 15 MINUTES OFFICE 54012 LEANA DUEÑAS OUTPATIEN 9 9 CHELSY Headley T VISIT 15 MINUTES OFFICE 17286 LEANA DUEÑAS OUTPATIEN 9 9 CHELSY Headley CHELSY W T VISIT 15 MINUTES EMERGENCY 53693 MARLO SHEA, KIMBERLYT 9 9 EMERGENCY [facility] VISIT SERVICES HIGH SEVERITY& ASSOCIATE THREAT S [facility] - 9 9 [facility] T OFFICE 76822 LEANA DUEÑAS OUTPATIEN 9 9 CHE[facility]Y [place] CHELSY W T VISIT 15 MINUTES OFFICE 29879 LEANA DUEÑAS OUTPATIEN 9 9 CHELSY VALENTINO W T VISIT 15 MINUTES EMERGENCY 49543 MARLO CORTÉS 9 9 EMERGENCY [facility] DEPARTMEN SERVICES O T VISIT MODERATE ASSOCIATE SEVERITY S EMERGENCY 09700 [facility] 9 9 [facility] DEPARTMEN INC T VISIT LOW/MODER [facility] T OFFICE 07532 LEANA DUEÑAS OUTPATIEN 9 9 CHELSY W CHELSY W T VISIT 15 MINUTES [facility] T OFFICE 64792 ART BARNARD 9 9 MT STONER T VISIT SERV 25 FOUNDATIO MINUTES EMERGENCY 05202 [facility] 9 [facility] T VISIT HIGH/URGE NT SEVERITY [facility] T EMERGENCY 51425 MARLO SHAH, DEPT 9 9 EMERGENCY JOSEPH S VISIT SERVICES HIGH SEVERITY& ASSOCIATE THREAT S [facility] OFFICE 54781 LEANA DUEÑAS OUTPATIEN 9 9 CHELSY Headlye T VISIT 15 MINUTES EMERGENCY 77629 MARLO VIDES, DEPT 9 9 EMERGENCY [facility] VISIT SERVICES ER R HIGH SEVERITY& ASSOCIATE THREAT S [facility] - [facility] 9 [facility] T EMERGENCY 27614 [facility] T VISIT MODERATE SEVERITY OFFICE 43208 LEANA DUEÑAS OUTPATIEN 9 9 CHELSY VALENTINO W T VISIT 15 MINUTES [facility] T EMERGENCY 22255 [facility] 9 9 [facility] T VISIT LOW/MODER SEVERITY OFFICE 10566 LEANA DUEÑAS OUTPATIEN 9 9 CHELSY Headley CHELSY W T VISIT 15 MINUTES OFFICE 40853 LEANA DUEÑAS OUTPATIEN 9 9 CHELSY Headley CHELSY W T VISIT 15 MINUTES OFFICE 48614 LEANA DUEÑAS OUTPATIEN 9 9 CHELSY Fang CHELSY W T VISIT 15 MINUTES OFFICE 06234 ART BARNARD 9 9 MT [place] T VISIT SERV 25 FOUNDATIO MINUTES OFFICE 04790 LEANA DUEÑAS OUTPATIEN 8 8 CHELSY VALENTINO W T VISIT 15 MINUTES OFFICE 55591 LEANA DUEÑAS OUTPATIEN 8 8 CHELSY VALENTINO W T VISIT 15 MINUTES [facility] T EMERGENCY 74551 [facility] 8 [facility] T VISIT LIMITED/M INOR PROB OFFICE 45164 ART BARNARD 8 8 MT [place] VISIT SERV 25 FOUNDATIO MINUTES OFFICE 71759 LEANA DUEÑAS OUTPATIEN 8 8 CHELSY Headley T VISIT 15 MINUTES OFFICE 46008 LEANA DUEÑAS OUTPATIEN 8 8 CHELSY Fang CHELSY Fang T VISIT 15 MINUTES [facility] 8 8 [facility] T EMERGENCY 81340 JENNIFER ROSARIO, 8 8 [facility] T VISIT ON MODERATE SEVERITY EMERGENCY 96082 [facility] 8 8 [facility] T VISIT HIGH/URGE NT SEVERITY OFFICE 57733 LEANA DUEÑAS OUTPATIEN 8 8 CHELSY Headley T VISIT 15 MINUTES [facility] 8 8 [facility] - 8 8 [facility] T OFFICE 63898 SAMANTA ENGLAND OUTPATIEN 8 8 CHUCK WOODS T VISIT 25 MINUTES OFFICE 40193 BUNNY LORD, CONSULTAT 8 8 [facility] [place] ION SERV NEW/ESTAB FOUNDATIO PATIENT 60 MIN OFFICE 53190 LEANA DUEÑAS OUTPATIEN 8 8 CHELSY Headley T VISIT 15 MINUTES EMERGENCY 81683 [facility] 8 8 [facility] T VISIT LIMITED/M INOR PROB [facility] - 8 8 [facility] T OFFICE 04253 ALLRAN ALLRAN CONSULTAT 8 8 JR EDWARD ION CHARLES F CHARLES F NEW/ESTAB PATIENT 60 MIN [facility] 8 8 [facility] 8 [facility] T EMERGENCY 91463 [facility] 8 8 [facility] INC T VISIT MODERATE SEVERITY EMERGENCY 40177 RODRIGUEZ MARLENE, 8 8 [facility] E DEPARTMEN CORPORATI T VISIT ON HIGH/URGE NT SEVERITY OFFICE 08039 LEANA DUEÑAS OUTPATIEN 8 8 CHELSY VALENTINO W T VISIT 15 MINUTES [facility] T EMERGENCY 52749 JENNIFER CORTÉS, 8 8 [facility] DEPARTMEN CORPORATI O T VISIT ON LOW/MODER SEVERITY EMERGENCY 14173 [facility] 8 8 [facility] T VISIT LIMITED/M INOR PROB EMERGENCY 54363 [facility] 8 8 [facility] T VISIT LOW/MODER SEVERITY [facility] T OFFICE 14375 LEANA DUEÑAS OUTPATIEN 8 8 CHELSY VALENTINO W T VISIT 15 MINUTES [facility]OSP[facility] - 8 8 [facility] T OFFICE 73753 LEANA DUEÑAS OUTPATIEN 8 8 CHELSY VALENTINO W T VISIT 15 MINUTES OFFICE 68955 ART LANDIN 8 8 KANNAN Franz T VISIT CARDIOLOG 40 Y MINUTES CONSULTAN T OFFICE 77211 LEANA DUEÑAS OUTPATIEN 8 8 CHELSY Headley T VISIT 15 MINUTES OFFICE 64047 LEANA DUEÑAS OUTPATIEN 8 8 CHELSY VALENTINO W T NEW 30 MINUTES INITIAL 11010 [facility]EN'S SHARI CARIASIV 8 8 [facility] PATIENT PLLC [id number] EMERGENCY 33799 [facility] 8 8 [facility] DE[facility] T VISIT HIGH/URGE NT SEVERITY [facility] 8 8 [facility] T OFFICE 33626 [facility] 8 8 [facility], VISIT INTERNAL KANNAN F 15 MED MINUTES [facility]OSP[facility] 8 8 [facility] 8 8 [facility] T OFFICE 50864 [facility] 8 8 [facility], VISIT 5 INTERNAL KANNAN F MINUTES MED OFFICE 46730 [facility] ROSAURAE OUTPATIEN 8 8 [facility], VISIT INTERNAL KANNAN F 15 MED MINUTES EMERGENCY 30827 [facility] 8 8 [facility] DEPARTMEN INC T VISIT LIMITED/M INOR [facility] - 8 8 [facility] T OFFICE 79291 [facility] OUT[facility] 8 8 [facility], VISIT INTERNAL KANNAN F 15 MED MINUTES EMERGENCY 80782 [facility] DEPT 8 8 [facility] VISIT INC HIGH SEVERITY& [facility] - 8 8 [facility] T OFFICE 30676 SAMANTA ENGLAND, CONSULTAT 8 8 CHUCK TERAN NEW/ESTAB PATIENT 80 MIN OFFICE 53797 [place] JAEL MANZANOAT 8 8 MT TERAN SERV NEW/ESTAB FOUNDATIO PATIENT 40 MIN
--- OUTSIDE RECORDS SUMMARY | 2016-12-11 09:24 | External Medical Summary Rpt ---
Author Author , Organization [employer] Address Unknown Phone Unavailable Care Team Providers Care Rewind Operator Name Role Phone JARED-YANIQUE MOH, Unavailable Unavailable [...] PATHOLOGY Unavailable Unavailable SERVICES, [facility] Un[facility] Unavailable [facility], [facility] Unavailable Unavailable [facility], [facility] COTTO BRO, COTTO Unavailable [...] Unavailable [facility] Unavailable Unavailable SERVICE, [facility] Unavailable Unavailable SERVICE, [facility] BRIZUELA JAM, BRIZUELA JAM Unavailable Unavailable SOMERS LAR, SOMERS LAR Unavailable Unavailable C SOPHIE LYONS MD Unavailable Unavailable [facility], José LYONS MD [facility], [facility] Unavailable Unavailable [facility] Unavailable [facility] & Unavailable Unavailable DUBILIER, [...] COMMUN[facility] ANEST[facility] OF Unavailable Unavailable [facility], [facility] COOK KARLA, COOK KARLA Unavailable Unavailable CEDRICK JR PETR, CEDRICK Unavailable Unavailable JR PETR HOMER AYLA, Unavailable Unavailable HOMER AYLA HOMER, FREDO, Unavailable Unavailable HOMER, FREDO [facility], Unavailable Unavailable [facility] Unavailable Unavailable [facility], [facility] Unavailable Unavailable [facility], [facility] Unavailable Unavailable [facility], [facility] JANELLE, JANELLE Unavailable Unavailable [facility] Unavailable [facility], [facility] ARVIZU DEIDRA, Unavailable Unavailable ARVIZU DEIDRA ARVIZU DEIDRA, Unavailable Unavailable ARVIZU DEIDRA GAFFNEY PJ, GAFFNEY PJ Unavailable Unavailable [facility] Unavailable Unavailable SPECIAL, [facility] Unavailable Unavailable [place] GARO FERNANDEZ, Unavailable Unavailable GARO [...] ERVIN RODRIGEZ, Unavailable Unavailable ERVIN DEL ROSARIO [facility] Unavailable Unavailable INC, [facility] Unavailable Unavailable HOSPITAL P, [facility] BARRY CARY HARVEY, Unavailable Unavailable BARRY RAMIREZ, VIJI RAMIREZ Unavailable Unavailable [facility], Unavailable Unavailable [facility], Unavailable Unavailable [facility] MARIANA GALEANA, Unavailable Unavailable MARIANA GALEANA [facility] Unavailable Unavailable [place] SH[facility], HAYDEN SHAKILA Unavailable Un[facility]EN GONZALES [facility] Unavailable Unavailable JANET [facility] Unavailable Unavailable ERVIN WICK, Unavailable Unavailable ERVIN HOFF [facility] Unavailable Unavailable LLC, D, [facility], [facility] Un[facility], [facility] Unavailable Unavailable IMAGING [facility], [facility] LETTYFORTINO, LETTY, Unavailable Unavailable [...] Unavailable JR DWI HUA CHOWDHURY, Unavailable Unavailable HUA CHOWDHURY [facility] Unavailable Unavailable [facility], [facility] Unavailable Unavailable [employer] [facility] Unavailable Unavailable INTERNAL MED, [facility] Unavailable [facility]available [facility], [facility] M E D SUPPL[facility], M E D Unavailable Unavailable SUPPLIES M E D [facility], M E D Unavailable Unavailable SUPPLIES [facility], Unavailable Unavailable [facility] Unavailable Unavailable SERVICES, [facility] MARNI LUIS ALFREDO, Unavailable Unavailable MARNI LUIS ALFREDO MARNI LUIS ALFREDO, Unavailable Unavailable MARNI LUIS ALFREDO ESPINO JAM, Unavailable Unavailable ESPINO JAM [...] [facility], Unavailable Unavailable [facility] Unavailable Unavailable EMERGENCY PH[facility], [facility] GARCIA RAY, GARCIA Unavailable Unavailable RAY NATACHA PHI, NATACHA PHI Unavailable Unavailable NATACHA, NICOLE A, Unavailable Unavailable NATACHA, NICOLE A [facility] Unavailable Unavailable HOSPITALS, [facility], Unavailable Unavailable [facility] USERY AND, USERY AND Unavailable Unavailable [facility], Unavailable Unavailable [facility] Madelyn Lemus MD, Unavailable Unavailable Kylee Valverde MD, Unavailable Unavailable Kylee CORDERO [facility] Unavailable Unavailable [address], [facility] Unavailable Unavailable MARCELINO DEIDRA, MARCELINO Unavailable Unavailable DEIDRA JULY SHANTHI, JULY Unavailable Unavailable SHANTHI [facility] Unavailable Unavailable [facility], [facility] [place] [facility], Unavailable [facility]available [facility], Unavailable Unavailable [facility] Purpose Continuity of Care Document - 07-11-2007 through 2016 Problems Code Diagnosis DOS Provider Status 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 X90350 PAIN IN 11-06-2016 [facility] RIGHT LEG [facility] INC R24753 PAIN IN 11-06-2016 [facility] LEFT LEG [facility] INC 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 ATHY LUMB RGN M549 DORSALGIA 10-23-2016 [facility] UNSPECIFIED [facility] INC R300 DYSURIA 10-19-2016 [facility] INC E039 HYPOTHYROID 10-05-2016 [facility] ISM [facility] UNSPECIFIED INC M7702 MEDIAL 09-19-2016 [facility] EPICONDYLIT [facility] IS LEFT INC ELBOW J040 ACUTE 2016 [facility] [id number] SPONDYLOSIS 09-15-2016 [facility] MYELOPATH/R HOSPITALS ADICULOPATH Y THOR RGN K77059 SPONDYLOSIS 09-15-2016 [facility] MYELOPATH/R HOSPITALS ADICULPATHY LS RGN M546 PAIN IN 09-15-2016 [facility] J069 ACUTE UPPER 09-12-2016 [facility] RESPIRATORY INC INFECTION UNSPECIFIED E07.9 DISORDER OF 09-08-2016 THYROID, UNSPECIFIED E11.9 TYPE 2 09-08-2016 DIABET[facility] MELLITUS WITHOUT COMPLICATIO NS E78.00 PURE 09-08-2016 HYPERCHOLES TEROLEMIA, UNSPECIFIED F17.210 NICOTINE 09-08-2016 DEPENDENCE, CIGARETTES, UNCOMPLICAT ED F32.9 MAJOR 09-08-2016 DEPRESSIVE DISORDER, SINGLE EPISODE, UNSPECIFIED F41.9 ANXIETY 09-08-2016 DISORDER, UNSPECIFIED I10 ESSENTIAL 09-08-2016 (PRIMARY) HYPERTENSIO N 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 J40 BRONCHITIS, 09-08-2016 NOT SPECIFIED ACUTE OR CHRONIC J44.9 CHRONIC 09-08-2016 OBSTRUCTIVE PULMONARY DISEASE, UNSPECIFIED K21.9 GASTRO-ESOP 09-08-2016 HAGE[facility] REFLUX DISEASE WITHOUT ESOPHAGITIS R05 COUGH 09-08-2016 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 09-08-2016 (CURRENT) USE OF NON-STEROID AL ANTI-INFLAM MATORIES (NSAID) Z79.4 BRAKE REPAIRER RAILROAD 09-08-2016 (CURRENT) USE OF INSULIN Z79.82 BRAKE REPAIRER RAILROAD 09-08-2016 (CURRENT) USE OF ASPIRIN Z79.899 OTHER LONG 09-08-2016 TERM (CURRENT) DRUG THERAPY Z88.2 ALLERGY 09-08-2016 STATUS TO SULFONAMIDE S STATUS Z88.3 ALLERGY 09-08-2016 STATUS TO OTHER ANTI-INFECT ANNABELLA AGENTS STATUS F23550 PAIN IN 09-08-2016 [facility] LEFT ELBOW PHYSICIANS GROUP J40 BRONCHITIS 09-06-2016 [facility]ERG[facility] SPECIFIED PHYS ACUTE OR CHRONIC R05 COUGH 09-06-2016 [facility] R0602 SHORTNESS 09-06-2016 [facility] [place] OF BREATH RADIOLOGY M542 CERVICALGIA 08-29-2016 [facility] R51 HEADACHE 08-29-2016 [facility] L9618IA CONTUSION 08-29-2016 [facility] OF SCALP PHYSICIANS, INITIAL PLLC ENCOUNTER R982WSQ UNSPECIFIED 08-29-2016 [facility] INJURY OF MEDICAL NECK IMAGING ASS INITIAL ENCOUNTER Y74RDNQ UNSPECIFIED 08-29-2016 [facility] INITIAL SERVICE ENCOUNTER G59220 PRIMARY 08-22-2016 [facility] OSTEOARTHRI MEDICAL TIS LEFT IMAGING ASS ELBOW E119 TYPE 2 08-15-2016 [facility] DIABETES [facility] MELLITUS INC WITHOUT COMPLICATIO NS I10 ESSENTIAL 08-15-2016 [facility] PRIMARY [facility] HYPERTENSIO INC N J449 CHRONIC 08-15-2016 [facility] OBSTRUCTIVE [facility] PULMONARY INC DISEASE UNS K8689 OTHER 08-15-2016 [facility] SPECIFIED PHYSICIANS, DISEASES OF [facility] PANCREAS R1084 GENERALIZED 08-15-2016 [facility] ABDOMINAL PHYSICIANS, PAIN [facility] Z720 TOBACCO USE 08-15-2016 [facility] INC Z794 BRAKE REPAIRER RAILROAD 08-15-2016 [facility] CURRENT USE [facility] OF INSULIN INC R8299 OTHER 08-07-2016 [facility] ABNORMAL [facility] FINDINGS IN INC URINE G32481 MIGRAINE 08-04-2016 [facility] UNS PHYSICIANS, INTRACTABLE PLLC W/STATUS MIGRAINOSUS I62873 UNSPECIFIED 08-04-2016 [facility] WITH ACUTE LLC EXACERBATIO N F0025UU CONTUSION 08-04-2016 [facility] EYEBALL & PHYSICIANS, ORBITAL PLLC TISSUES RT EYE INIT T07105 ELEVATED 07-26-2016 [facility] BLOOD [facility] CELL COUNT HOSPITAL P UNSPECIFIED K529 NONINFECTIV 07-14-2016 [facility] E [facility] GASTROENTER INC ITIS & COLITIS UNS I509 HEART 07-12-2016 [facility] P R0789 OTHER CHEST 07-12-2016 [facility], [facility] R079 CHEST PAIN 07-12-2016 [facility] P I272 OTHER 07-05-2016 [facility] SECONDARY [facility] PULMONARY INC HYPERTENSIO N I5030 UNSPECIFIED 07-05-2016 [facility] DIASTOLIC [facility] CONGESTIVE INC HEART FAILURE I959 HYPOTENSION 07-05-2016 [facility] UNSPECIFIED INC E109 TYPE 1 07-04-2016 [place] DIABETES [facility] MELLITUS [place] [employer] P WITHOUT COMPLICATIO NS I9589 OTHER 07-04-2016 [facility] HYPOTENSION PHYSICIANS, [facility] R400 SOMNOLENCE 07-04-2016 [facility] PHYSICIANS, PLLC R55 SYNCOPE AND 07-04-2016 [facility] COLLAPSE PHYSICIANS, [facility] Z10458 OTHER LONG 07-04-2016 [facility] TERM [facility] CURRENT INC DRUG THERAPY G8929 OTHER 06-29-2016 [facility] CHRONIC [facility] PAIN INC M4807 SPINAL 06-29-2016 [facility] STENOSIS [facility] LUMBOSACRAL INC REGION R042 HEMOPTYSIS 06-28-2016 [facility] R918 OTHER 06-28-2016 [facility] NONSPECIFIC [facility] ABNORMAL INC FINDING OF LUNG FIELD P81362 TYPE 2 06-21-2016 [facility] DIABETES [facility] MELLITUS INC W/HYPOGLYCE NIKOLAY W/O COMA M5432 SCIATICA 06-13-2016 [facility] LEFT SIDE PHYSICIANS, [facility] M5442 LUMBAGO 06-13-2016 [facility] WITH PHYSICIANS, SCIATICA PLL LEFT SIDE X24751 TYPE 2 06-12-2016 [facility] MELLITUS MEDICAL WITH FOOT EQUIPME ULCER W74007 TYPE 2 06-12-2016 [facility] MELLITUS MEDICAL WITH OTHER EQUIPME SKIN ULCER G894 CHRONIC 06-12-2016 [facility] PAIN PHYSICIANS SYNDROME GROUP M4307 SPONDYLOLYS 06-12-2016 [facility] IS PHYSICIANS LUMBOSACRAL GROUP REGION E78976 PERSONAL 06-12-2016 [facility] HISTORY OF PHYSICIANS NICOTINE GROUP DEPENDENCE I63797 PERSONAL 06-12-2016 [facility] HISTORY OF PHYSICIANS OTHER GROUP SPECIFIED CONDITIONS E876 HYPOKALEMIA 06-06-2016 [facility] PHYSICIANS, [facility] K5900 CONSTIPATIO 06-06-2016 [place] N MEDICAL UNSPECIFIED IMAGING ASS N200 CALCULUS OF 06-06-2016 [facility] KIDNEY [facility] N3000 ACUTE 06-06-2016 [facility] CYSTITIS PHYSICIANS, WITHOUT PLLC HEMATURIA N390 URINARY 06-06-2016 [facility] TRACT PHYSICIANS, INFECTION [facility] SITE NOT SPECIFIED R531 WEAKNESS 06-06-2016 [facility] R634 ABNORMAL 06-06-2016 [facility] WEIGHT LOSS [facility] J050 ACUTE 05-18-2016 [facility] OBSTRUCTIVE PHYSICIANS, LARYNGITIS PLL CROUP L299 PRURITUS 05-18-2016 [facility] UNSPECIFIED PHYSICIANS, PLLC M5127 OTH 05-17-2016 [place] INTERVERTEB MEDICAL RAL DISC IMAGING ASS DISPLACEMEN T LS REGION M5136 OTH 05-17-2016 [place] 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 M545 LOW BACK 05-17-2016 [place] PAIN MEDICAL IMAGING ASS M11928 PAIN IN 05-13-2016 [place] RIGHT KNEE MEDICAL IMAGING ASS V5030FD CONTUSION 05-13-2016 [facility] OF RIGHT PHYSICIANS, KNEE PLLC INITIAL ENCOUNTER Z32346 MIGRAINE 05-09-2016 [facility] W/O AURA PHYSICIANS, NOT INTRACT PLLC W/O STAT MIGRAIN M27692 PAIN IN 05-08-2016 [facility] RIGHT HIP [facility] INC B351 TINEA 04-13-2016 [place] UNGUIUM FOOT & ANKLE CE I7090 UNSPECIFIED 04-13-2016 [place] FOOT & ATHEROSCLER ANKLE CE OSIS R35757 PAIN IN 04-13-2016 [facility]PEC[facility] FOOT & LIMB ANKLE CE R0781 PLEURODYNIA 03-31-2016 [facility] R52 PAIN 03-31-2016 [facility] UNSPECIFIED AMBULANCE SERVICE C46388V CONTUSION 03-31-2016 [facility] UNS FRONT PHYSICIANS, WALL THORAX PLLC INITIAL ENCNTR Y824MTN UNSPECIFIED 03-31-2016 [place] INJURY OF MEDICAL THORAX IMAGING ASS INITIAL ENCOUNTER L0291 CUTANEOUS 03-20-2016 [facility] ABSCESS [facility] UNSPECIFIED INC L69493K CONTUSION 03-17-2016 [facility] LEFT FRONT PHYSICIANS, WALL THORAX PLLC INITIAL ENC I06720S CONTUSION 03-17-2016 [facility] OF LEFT PHYSICIANS, SHOULDER PLLC INITIAL ENCOUNTER B13361 NON-PRSS 03-14-2016 [facility] CHRN ULCER PHYSICIANS SKIN OTH GROUP SITES UNS SEVERITY Q71356 CELLULITIS 03-09-2016 [facility] OF [facility] ABDOMINAL INC WALL Y7612YT OTHER 03-09-2016 [place] COMPLICATIO PHYSICIANS, NS PROC NEC PLLC INITIAL ENCOUNTER E049 NONTOXIC 02-17-2016 [facility] GOITER PHYSICIANS UNSPECIFIED GROUP R1310 DYSPHAGIA 02-17-2016 [facility] UNSPECIFIED PHYSICIANS GROUP X12298J UNS FOREIGN 02-17-2016 [facility] BODY PHYSICIANS LARYNX CAUS GROUP OTH INJURY INIT ENC A18276 PAIN IN 02-10-2016 [place] LEFT HIP MEDICAL IMAGING ASS P119XCN STRAIN 02-10-2016 [facility] MUSCLE FASC [facility] & TENDON INC NECK LEVL INIT ENC V1013SN CONTUSION 02-10-2016 [facility] OF LEFT HIP MEM [facility]OS[facility] INITIAL INC ENCOUNTER Z42399P UNSPECIFIED 02-10-2016 [place] INJURY MEDICAL LEFT HIP IMAGING ASS INITIAL ENCOUNTER W64701 UNSPECIFIED 02-07-2016 [facility] CENTER KERATITIS LEFT EYE R221 LOCALIZED 02-05-2016 [facility] SWELLING [facility] MASS AND INC LUMP NECK R4702 DYSPHASIA 02-03-2016 [facility] INC R5383 OTHER 06-15-2015 [facility] FATIGUE [facility] INC W40522L CONTUSION 06-03-2015 [facility] RT FRONT PHYSICIANS, WALL THORAX PLLC INITIAL ENCOUNTER I20217 PAIN IN 05-29-2015 [place] RIGHT WRIST MEDICAL IMAGING ASS G86908 PAIN IN 05-29-2015 [place] UNSPECIFIED MEDICAL HIP IMAGING ASS Q67212 PAIN IN 05-29-2015 [place] LEFT KNEE MEDICAL IMAGING ASS J0318GO CONTUSION 05-29-2015 [place] OF NOSE MEDICAL INITIAL IMAGING ASS ENCOUNTER V7593LA CONTUSION 05-29-2015 [facility] OTHER PART PHYSICIANS, OF HEAD PLL INITIAL ENCOUNTER X68971X UNSPECIFIED 05-29-2015 [facility] SPRAIN [facility] RIGHT WRIST INC INITIAL ENCOUNTER R4439OA SPRAIN 05-29-2015 [facility] UNSPECIFIED [facility] SITE LT INC KNEE INITIAL ENCNTR Z043 ENCOUNTER 05-29-2015 [place] EXAM & MEDICAL OBSERVATION IMAGING ASS FOLLOW OTH ACCIDENT E1121 TYPE 2 05-25-2015 [place] DIABETES [facility] MELLITUS HOSPITAL P W/DIABETIC NEPHROPATHY I96 GANGRENE 05-25-2015 [facility] NOT ANESTH OF ELSEWHERE THE BLUE CLASSIFIED F50545 NON-PRSS 05-25-2015 [facility] TORO & OTH PART RT DUBILIER FT W/UNS SEVERITY P62710 OTHER ACUTE 05-25-2015 [facility] OSTEOMYELIT HOSPITAL P IS RIGHT ANKLE AND FOOT Z9111 PATIENTS 05-25-2015 [place] NONCOMPLIAN [facility] CE WITH HOSPITAL P DIETARY REGIMEN V74800 NON-PRSS 05-24-2015 [facility] MEDICAL OTH PART LT IMAGING ASS FOOT UNS SEVERITY M2011 HALLUX 05-24-2015 [facility] VALGUS PHYSICIANS, ACQUIRED [facility] RIGHT FOOT 7231 CERVICALGIA 03-06-2015 [facility] 7802 SYNCOPE AND 03-06-2015 [place] COLLAPSE [facility]ICAL IM[facility]ING ASS 7840 HEADACHE 03-06-2015 [facility] 41028 INJURY OF 03-06-2015 [place] FACE AND MEDICAL NECK OTHER IMAGING ASS AND UNSPECIFIED 03598 ACUTE PAIN 03-05-2015 [facility] DUE TO AMBULANCE TRAUMA SERVICE 33813 PAIN IN 03-05-2015 [place] JOINT MEDICAL PELVIC IMAGING ASS REGION AND THIGH 8470 NECK SPRAIN 03-05-2015 [facility] AND STRAIN PHYSICIANS, [facility] 920 CONTUSION 03-05-2015 [facility] OF FACE PHYSICIANS, SCALP AND [facility] NECK EXCEPT EYE E8889 UNSPECIFIED 03-05-2015 [facility] 7881 DYSURIA 02-24-2015 [place] [address] DIAB W/O 02-09-2015 [facility] COMP TYPE I HOME [JUV] NOT MEDICAL STATED EQUIPME UNCNTRL 35054 OBSTRUCTIVE 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 EQUIPME 06437 EXTRINSIC 02-09-2015 [facility] ASTHMA, HOME UNSPECIFIED MEDICAL EQUIPME 11206 DIAB W/OTH 02-03-2015 [facility] MANIFESTS [facility] TYPE I INC [JUV] NOT UNCNTRL 4019 UNSPECIFIED 02-03-2015 [facility] ESSENTIAL [facility] HYPERTENSIO INC N 4139 OTHER AND 02-03-2015 [facility] UNSPECIFIED [facility] ANGINA INC PECTORIS 496 CHRONIC 02-03-2015 [facility] AIRWAY [facility] OBSTRUCTION INC NEC 42246 OTHER 02-03-2015 [facility] MALAISE AND [facility] FATIGUE INC V5867 LONG-TERM 02-03-2015 [facility] USE OF [facility] INSULIN INC 7906 OTHER 02-01-2015 [facility] ABNORMAL [facility] BLOOD INC CHEMISTRY V7389 SPECIAL 02-01-2015 [facility] SCREENING [facility] EXAMINATION INC OTH SPEC VIRAL DZ 7295 PAIN IN 01-06-2015 [place] SOFT MEDICAL TISSUES OF IMAGING ASS LIMB 71993 SWELLING OF 01-06-2015 [place] LIMB MEDICAL IMAGING ASS 7823 EDEMA 01-06-2015 [facility] INC 58791 CHEST PAIN 12-31-2014 [place] UNSPECIFIED MEDICAL IMAGING ASS 15711 PAIN IN 12-17-2014 [place] JOINT, MEDICAL SHOULDER IMAGING ASS REGION 98063 PAIN IN 12-17-2014 [place] JOINT, MEDICAL FOREARM IMAGING ASS 17433 PAIN IN 12-17-2014 [place] [facility], MEDICAL LOWER LEG IMAGING ASS 8408 SPRAIN&STRA 12-17-2014 [facility] IN OTH SPEC [facility]OS[facility] SITES INC SHOULDER&UP PER ARM 8409 SPRAIN&STRA 12-17-2014 [facility] IN UNSPEC PHYSICIANS, SITE [facility] SHOULDER&UP PER ARM 23948 SPRAIN AND 12-17-2014 [facility] STRAIN OF [facility] UNSPECIFIED INC SITE OF WRIST 8449 SPRAIN&STRA 12-17-2014 [facility] IN OF [facility]OS[facility] UNSPECIFIED INC SITE OF KNEE&LEG 9221 CONTUSION 12-17-2014 [facility] OF CHEST [facility] WALL INC 83885 OTHER 12-17-2014 [place] INJURY OF MEDICAL CHEST WALL IMAGING ASS 79464 OTHER 12-17-2014 [place] INJURY OF MEDICAL OTHER SITES IMAGING ASS OF TRUNK 9592 INJURY 12-17-2014 [place] OTHER&UNSPE MEDICAL CIFIED IMAGING ASS SHOULDER&UP PER ARM 9593 INJURY 12-17-2014 [place] OTHER&UNSPE MEDICAL CIFIED IMAGING ASS ELBOW FOREARM&WRI ST 9597 INJURY 12-17-2014 [place] OTHER&UNSPE MEDICAL CIFIED KNEE IMAGING ASS LEG ANKLE&FOOT V714 OBSERVATION 12-17-2014 [facility] OTHER IMAGING [facility] ACCIDENT 5718 OTHER 12-16-2014 [facility] CHRONIC SERV NONALCOHOLI [facility] [place] C LIVER DISEASE 56147 ABDOMINAL 12-16-2014 [facility] PAIN RIGHT SERV UPPER [facility] QUADRANT 7892 SPLENOMEGAL 12-16-2014 [facility] 2512 HYPOGLYCEMI 11-25-2014 [facility] A, [facility] UNSPECIFIED INC 36900 SHORTNESS 11-11-2014 [facility] OF BREATH SERV [facility] 85029 DIAB 10-23-2014 [facility] W/NEURO [facility] MANIFESTS INC TYPE II/UNS TYPE UNCNTRL 69961 UNSPECIFIED 10-23-2014 [facility] CELLULITIS [facility] AND INC ABSCESS OF TOE 17226 ULCER OF 10-23-2014 [facility] OTHER PART PATHOLOGY OF FOOT SERVICES 7224 DEGENERATIO 10-17-2014 [place] N OF MEDICAL CERVICAL IMAGING ASS INTERVERTEB RAL DISC 90266 DIAB W/O 09-27-2014 [facility] COMP TYPE [facility] II/UNS NOT INC STATED UNCNTRL 2724 OTHER AND 09-27-2014 [facility] UNSPECIFIED [facility] INC HYPERLIPIDE NIKOLAY 67409 OBESITY, 09-27-2014 [place] UNSPECIFIED [place] INTERNAL MED 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 INC UNSPECIFIED 64846 ALTERED 09-27-2014 [facility] MENTAL [place] STATUS INTERNAL MED 7862 COUGH 09-27-2014 [facility] 48015 POISONING 09-27-2014 [facility] BY OPIUM , ZACKERY UNSPECIFIED INTERNAL MED E8502 ACCIDENTAL 09-27-2014 [facility] P ATED NARCOTICS 5180 PULMONARY 09-26-2014 [place] COLLAPSE MEDICAL IMAGING ASS 01855 FEVER 09-26-2014 [facility] UNSPEC[facility] MEDICAL IMAGING ASS 7869 OTH 09-26-2014 [place] SYMPTOMS MEDICAL INVOLVING IMAGING ASS RESPIRATORY SYSTEM&CHES T V053 NEED PROPH 09-07-2014 [place] [facility] VACC&INOCUL SERV AT AGAINST FOUNDATION VIRAL HEP 03920 CONTUSION 09-03-2014 [facility] P 97535 CONTUSION 09-03-2014 [facility] P 11081 CLOSED 05-01-2014 [facility] FRACTURE PHYSICIANS METACARPAL GROUP BONE SITE UNSPECIFIED E8888 OTHER FALL 04-28-2014 [facility] V1582 PERS HX 04-28-2014 [facility] USE [facility] PRESENTING INC HAZARDS HEALTH 2104 BENIGN 04-27-2014 EAR, NOSE NEOPLASM AND THROAT OTHER&UNSPE SPECIAL CIFIED PARTS MOUTH 13559 DYSFUNCTION 04-27-2014 E[facility], NOSE OF AND THROAT EUSTACHIAN SPECIAL TUBE 86338 OTOGENIC 04-27-2014 E[facility], NOSE PAIN AND THROAT SPECIAL 98440 DYSPHAGIA 04-27-2014 EAR, NOSE UNSPECIFIED AND THROAT SPECIAL 4770 ALLERGIC 04-13-2014 [facility]FR[facility] DUE TO POLLEN 4778 ALLERGIC 04-13-2014 [facility] DUE TO OTHER ALLERGEN 4772 ALLERGIC 04-06-2014 [facility] DUE TO ANIMAL HAIR AND DANDER 68978 CHRONIC 04-06-2014 [facility] OBSTRUCTIVE [facility] ASTHMA UNSPECIFIED 69427 SENSORINEUR 04-03-2014 EAR, NOSE AL HEARING AND THROAT LOSS SPECIAL BILATERAL 2728 OTHER 03-19-2014 [facility] 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 34780 DIAB 03-16-2014 [facility] TYPE II/UNS NOT UNCNTRL 5939 UNSPECIFIED 03-03-2014 [facility] DISORDER N EMERGENCY OF KIDNEY PHYS AND URETER 5990 URINARY 03-03-2014 [facility] N EMERGENCY INFECTION PHYS SITE NOT SPECIFIED 18816 OTHER 01-28-2014 [facility] DISORDER OF STOMACH AND DUODENUM 5715 CIRRHOSIS 01-28-2014 [facility] WITHOUT MENTION OF ALCOHOL 5723 PORTAL 01-28-2014 [facility] N V7651 SPECIAL 01-28-2014 [facility] FOR MALIGNANT NEOPLASMS COLON 2168 BENIGN 01-21-2014 [...] GOITER, 12-23-2013 [facility]PECIF[facility] INC 11160 ABDOMINAL 12-15-2013 [facility] PAIN OTHER [facility] SPECIFIED INC SITE 36460 OTHER ACUTE 12-01-2013 [facility] 19446 ANEURYSM OF 12-01-2013 [facility] 5778 OTHER 12-01-2013 [facility] DISEASE OF [facility] PANCREAS 51801 DIARRHEA 12-01-2013 [facility] 64152 ABDOMINAL 12-01-2013 [facility] UNSPECIFIED [facility] SITE 7948 NONSPECIFIC 12-01-2013 [facility] RESULTS [facility] LIVR FUNCTION STUDY V762 SCREENING 11-19-2013 [facility] MALIGNANT NEOPLASM OF THE CERVIX 66066 OTHER CHEST 11-08-2013 [facility] EMERG[facility]Y PHYS 37918 OTHER 11-08-2013 [place] NONSPECIFIC MEDICAL ABNORMAL IMAGING ASS FINDING OF LUNG FIELD 7242 LUMBAGO 09-23-2013 [facility] INC V571 OTHER 09-23-2013 [facility] THERAPY INC V5869 LONG-TERM 09-17-2013 [facility] [facility] USE OF INC OTHER MEDICATIONS 7226 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 UNSPEC 99846 DEGEN 09-11-2013 [facility] L[facility]LUMB SERV OSACRAL FOUNDATIO INTERVERTEB RAL DISC 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 82847 MORBID 08-25-2013 [place] OBESITY [facility] P 4409 GENERALIZED 08-25-2013 [place] AND MEDICAL UNSPECIFIED IMAGING ASS ATHEROSCLER OSIS 4471 STRICTURE 08-25-2013 [place] OF [facility] 4830 PNEUMONIA 08-25-2013 [place] DUE TO [facility] P PNEUMONIAE 83187 SCOLIOSIS , 08-25-2013 [place] IDIOPATHIC [facility]ICAL IMAGING ASS V8541 BODY MASS 08-25-2013 [facility] 40.0-44.9 HOSPITAL P ADULT 4829 UNSPECIFIED 08-23-2013 [facility] BACTERIAL EMERGENCY PNEUMONIA SERVICES 51970 OTHER 08-23-2013 [place] DISEASES OF MEDICAL LUNG NOT IMAGING ASS ELSEWHERE CLASSIFIED 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 3540 CARPAL 08-20-2013 [facility] MITCH 7238 OTHER 08-20-2013 [facility] SYNDROMES NEUROLOGY AFFECTING CENTER MITCH CERVICAL REGION 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 50160 SPINAL STEN 08-18-2013 [place] LUMB REG MEDICAL W/O IMAGING ASS NEUROGENIC CLAUDICATIO N 8404 ROTATOR 07-26-2013 [place] CUFF SPRAIN [facility] AND STRAIN INC 5989 UNSPECIFIED 05-06-2013 [place] URETHRAL [facility] STRICTURE [place] [facility] P 27069 UNSPECIFIED 04-29-2013 [place] URETHRITIS [facility] P 5952 OTHER 04-08-2013 [facility] CYSTIT[facility] [place] [facility] P 01319 DIAB W/O 04-03-2013 [place] MENTION [facility] COMP TYPE I INC [JUV TYPE] UNCNTRL 71863 UNSPECIFIED 04-03-2013 [facility] EMERGENCY CONSTIPATIO SERVICES N 22490 OTHER 03-31-2013 [facility] CHRONIC [facility] ALLERGIC CONJUNCTIVI TIS 03184 NUCLEAR 03-18-2013 [place] [facility] 3669 UNSPECIFIED 03-18-2013 [facility] CATARACT [facility] INC V148 PERSONAL 03-18-2013 [place] HISTORY [facility] ALLERGY OTH INC SPEC MEDICINAL AGTS 2689 UNSPECIFIED 02-25-2013 [facility] VITAMIN D [facility] DEFICIENCY 4919 UNSPECIFIED 02-04-2013 [facility] CHRONIC [facility] BRONCHITIS 33054 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 [facility] 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[facility] STATUS ASTHMATICUS 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 01-30-2013 [facility] UNSP W/O VALLEY INTRACT W/O INTERNAL STATUS MED MIGRAINOSUS 98410 ABDOMINAL 01-23-2013 [facility], LEFT PHYSICIANS LOWER LA QUADRANT 460 ACUTE 01-22-2013 [facility] NASOPHARYNG VALLEY ITIS INTERNAL MEDI 20172 VISUAL 01-14-2013 [place] [facility] 3688 OTHER 01-14-2013 [place] SPECIFIED EYE VISUAL INSTITUTE DISTURBANCE S 490 BRONCHITIS 12-28-2012 [facility] NOT VALLEY SPECIFIED INTERNAL ACUTE OR MED CHRONIC 5110 PLEURISY 12-20-2012 [facility] WITHOUT [facility] MENTION INC EFFUS/[place] [address] PAINFUL 12-20-2012 [facility] RESPIRATION [place] INTERNAL MED 87018 DIAB W/O 12-17-2012 M E D MENTION SUPPLIES COMP TYPE II/UNS TYPE UNCNTRL 56959 URINARY 11-27-2012 [facility] FREQUENCY [place] INTERNAL MEDI 6279 UNSPECIFIED 11-13-2012 [place] [facility] MENOPAUSAL& INC POSTMENOPAU HERBERT DISORDER 30541 PATELLAR 11-13-2012 [facility] TENDINITIS PHYSICIANS GROUP 45103 ACHILLES 11-13-2012 [facility] B[facility]SIT[facility] OR HOME TENDINITIS MEDICAL EQUIPME 10066 OTHER 11-13-2012 [facility] SYNOVITIS PHYSICIANS AND GROUP TENOSYNOVIT IS 7289 UNSPECIFIED 11-13-2012 [facility] DISORDER PHYSICIANS OF MUSCLE GROUP LIGAMENT&FA SCIA 90687 DISORDER OF 11-13-2012 [place] BONE AND MEDICAL CARTILAGE IMAGING ASS UNSPECIFIED V4981 ASYMPTOMATI 11-13-2012 [facility] MEDICAL POSTMENOPAU IMAGING ASS HERBERT STATUS 76367 OSTEOARTHRO 11-07-2012 [facility] UNSPEC MEDICAL WHETHER IMAGING ASS GEN/LOC LOWER LEG 4739 UNSPECIFIED 10-17-2012 [facility] SINUSITIS [place] INTERNAL MEDI 6931 DERMATITIS 09-30-2012 [facility] DUE TO FOOD [facility] TAKEN INTERNALLY V727 DIAGNOSTIC 09-30-2012 [facility] SKIN AND [facility] [facility] SENSITIZATI ON TESTS 67004 URGE 08-29-2012 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 0419 BACTERIAL 08-08-2012 [facility] INFECTION [place] UNSPECIFIED INTERNAL CCE & UNS MED SITE 08179 DEHYDRATION 08-08-2012 [facility] [place] INTERNAL MED V7231 ROUTINE 08-05-2012 [facility]AM[facility]ATION SONIA 4720 CHRONIC 08-02-2012 [facility] RHINITIS [place] INTERNAL MEDI 72462 MASTODYNIA 08-02-2012 [facility] INTER[facility] MED[facility] 4011 ESSENTIAL 07-09-2012 [facility] HYPERTEN[facility] N, BENIGN 7964 OTHER 07-05-2012 [facility] CLINICAL FINDING 13713 COR 07-01-2012 [facility]PAT[facility] ATHEROSLERO [facility]ARE[facility] UNSPEC TYPE VESSEL NUNAPITCHUK/ELSA T 06482 UNSPECIFIED 06-19-2012 [facility] VIRAL EMERGENCY INFECTION SERVICES IN CCE & UNS SITE 29083 CONTUSION 06-14-2012 [facility] INC 9233 CONTUSION 06-14-2012 [facility] INC 67415 CONTUSION 06-14-2012 [facility] INC 9599 INJURY 06-14-2012 [place] OTHER AND MEDICAL UNSPECIFIED IMAGING ASS UNSPECIFIED SITE 4659 ACUTE URIS 06-05-2012 [facility] UNSPECIFIED CENTER SITE 8489 UNSPECIFIED 06-05-2012 [facility] S[facility] SPRAIN AND CENTER STRAIN V8542 BODY MASS 05-23-2012 [facility] IN[facility] 45.0-49.9 CENTER ADULT 86004 ATROPHIC 05-20-2012 [facility] GASTRITIS SURGIAL WITHOUT ASSOCIATE MENTION OF HEMORRHAGE 32526 NAUSEA WITH 05-20-2012 [facility] VOMITING SURGIAL ASSOCIATE V1279 PERSONAL 05-20-2012 [facility] OTH PHYS SURG DISEASES CTR DIGESTIVE DISEASE 4660 ACUTE 05-05-2012 [facility] BRON[facility] EMERGENCY PHYS 64335 ASTHMA, 05-05-2012 [facility] UNSPECIFIED N EMERGENCY , PHYS UNSPECIFIED STATUS 1129 CANDIDIASIS 05-03-2012 [facility] UNSPECIFIED CENTER SITE 4619 ACUTE 05-03-2012 [facility] SINUSITIS, HEALTHCARE UNSPECIFIED CENTER V0481 NEED 04-17-2012 [facility] PROPHYLACTI [facility]ARE C CENTER VACCINATION &INOCULATIO N FLU 07752 ESOPHAGEAL 04-16-2012 [facility] REFLUX SURGIAL ASSOCIATE 5559 REGIONAL 04-16-2012 [facility] ENTERITIS SURGIAL OF ASSOCIATE UNSPECIFIED SITE 12281 POLYURIA 03-29-2012 [facility] [employer] 28903 UNSPECIFIED 03-18-2012 [facility] VAGINITIS PSC AND VULVOVAGINI TIS 6235 LEUKORRHEA 03-18-2012 [facility] NOT PSC SPECIFIED INFECTIVE 6248 OTH SPEC 03-17-2012 INPATIENT NONINFLAMMA CARE, PLLC TORY DISORDER VULVA&PERIN EUM 60302 LOSS OF 02-20-2012 C SOPHIE WEIGHT ELOY SANCHEZ PSC 38605 UNSPECIFIED 02-14-2012 [facility] ARTHROPATHY INTERNAL MULTIPLE MEDI SITES 48872 ABDOMINAL 02-14-2012 [facility] PAIN, VALLEY GENERALIZED INTERNAL MEDI V741 SCREENING 02-14-2012 [facility] EXAMINATION VALLEY FOR INTERNAL PULMONARY MEDI TUBERCULOSI S 58568 ABDOMINAL 02-07-2012 [facility] PAIN, LEFT [facility] UPPER INC QUADRANT 31195 VASCULAR 01-06-2012 [facility] ES OF CONJUNCTIVA 96736 SWELLING OR 01-06-2012 [facility] EYE 08840 REDNESS OR 01-06-2012 [facility] EYE 46279 OTHER 01-06-2012 [facility] MEDICAL DISEASES OF SERV NASAL FOUNDATIO CAVITY AND SINUSES 0539 HERPES 12-14-2011 [facility] ZOSTER VALLEY WITHOUT INTERNAL MENTION OF MED COMPLICATIO N 7891 HEPATOMEGAL 12-07-2011 [facility] Y MEDICAL IMAGING ASS 75983 PAIN IN 11-11-2011 [facility] JOINT, VALLEY ANKLE AND INTERNAL FOOT MED 77372 TRANSIENT 11-10-2011 [facility] ARTHROPATHY [facility] ANKLE AND INC FOOT 6826 CELLULITIS 10-19-2011 [facility] AND ABSCESS VALLEY OF LEG INTERNAL EXCEPT FOOT MED 4780 HYPERTROPHY 10-12-2011 [facility] OF NASAL [facility] TURBINATES 9164 HIP THI 10-03-2011 [facility] LEG&ANK VALLEY INSECT BITE INTERNAL MED NONVENOMOUS W/O INF E9064 BITE OF 10-03-2011 [facility] NONVENOMOUS VALLEY ARTHROPOD INTERNAL MED 95468 TRANSIENT 09-25-2011 [facility] VISUAL LOSS [facility] INC 93580 SCOTOMA 09-25-2011 [facility] INVOLVING [facility] CENTRAL INC AREA IN VISUAL FIELD 03412 DISORDERS 09-25-2011 [facility] VISUAL [facility] CORTEX INC ASSOCIATED W/NEOPLASMS 7842 SWELLING 09-25-2011 [facility] MASS OR MEDICAL LUMP IN IMAGING ASS HEAD AND NECK 66470 BORDERLINE 09-15-2011 [facility] GLAUC OPEN JAM ANGLE BL FINDINGS LOW RSK 59699 CHRONIC 09-07-2011 [facility] OBSTRUCTIVE [facility] 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EXACERBATIO N 19016 OBSTRUCTIVE 08-30-2011 [facility] CHRONIC VALLEY BRONCHITIS INTERNAL WITH MED EXACERBATIO N 4293 CARDIOMEGAL 08-17-2011 [place] Y MEDICAL IMAGING ASS 43223 CHRONIC 08-09-2011 [facility] TENSION JAM TYPE HEADACHE 59546 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-2011 [facility] 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 39265 DIAB 06-25-2011 [facility] W/RENAL [facility] MANIFESTS INC TYPE I [JUV TYPE] UNCNTRL 43064 OBST 06-25-2011 [facility] CHRONIC [facility] BRONCHITIS INC W/ACUTE BRONCHITIS 47115 NAUSEA 06-25-2011 [facility] EMERGENCY SERVICES 7841 THROAT PAIN 06-06-2011 [facility] SERV FOUNDATIO 81994 OTHER 05-25-2011 [facility] SYMPTOMS [facility] INVOLVING INC HEAD AND NECK 4721 CHRONIC 05-15-2011 EAR, NOSE PHARYNGITIS AND THROAT SPECIAL 462 ACUTE 05-09-2011 [facility] PHARYNGITIS [place] INTERNAL MED 40192 UNSPECIFIED 04-12-2011 [facility] PHYSICIANS ARTHROPATHY LA ANKLE AND FOOT 6989 UNSPECIFIED 03-28-2011 [facility] PRURITIC [facility] DISORDER INC 6929 CONTACT 03-27-2011 DERMATOLOGY DERMATITIS& OTHER CONSULTANTS ECZEMA DUE PSC UNSPEC CAUSE 38044 WHEEZING 03-20-2011 [facility] EM[facility] SERVICES 7391 NONALLOPATH 03-08-2011 K[facility] GONZALES IC LESION OF CERVICAL REGION NEC 4548 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 SERVICES EXTREMITIES W/OTH COMPS 7827 SPONTANEOUS 02-23-2011 [facility] ECCHYMOSES [facility] INC 16222 CONTUSION 02-23-2011 [facility] OF THIGH EMERGENCY SERVICES 4439 UNSPECIFIED 02-17-2011 [place] PERIPHERAL MEDICAL VASCULAR IMAGING ASS DISEASE 1101 DERMATOPHYT 02-10-2011 [facility] MAR OSIS OF NAIL 58934 DIAB 02-10-2011 [facility] W/NEURO MANIFESTS TYPE II/UNS NOT UNCNTRL 76161 DIAB 02-10-2011 [facility] W/PERIPH CIRC D/O TYPE II/UNS NOT UNCNTRL 40124 ABDOMINAL 01-18-2011 [place] PAIN RIGHT MEDICAL LOWER IMAGING ASS QUADRANT 69355 HYPERSOMNIA 12-27-2010 [facility] WITH SLEEP DEIDRA APNEA UNSPECIFIED 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 96946 OTHER 10-26-2010 [facility] ALTERATION [facility] OF INC CONSCIOUSNE SS 9953 ALLERGY 09-13-2010 [facility] UNSPECIFIED AMBULANCE NOT SERVICE ELSEWHERE CLASSIFIED V1272 PERSONAL 08-25-2010 [facility] HISTORY OF [facility] COLONIC INC POLYPS 34780 BACKGROUND 07-28-2010 [facility] DIABETIC VISION RETINOPATHY 92828 UNSPECIFIED 07-27-2010 [facility] INFECTIVE [facility] OTITIS INC EXTERNA 82870 HYPOXEMIA 06-27-2010 [place] [facility] 5589 OTH&UNSPEC 10-12-2009 [facility] NONINFECTIO EMERGENCY US SERVICES GASTROENTER ASSOCIATES ITIS&COLITI S 91342 PAPANICOLAO 04-16-2009 PATHOLOGY & U SMEAR OF CYTOLOGY VAGINA WITH LAB ASC-US 54608 ABDOMINAL 04-14-2009 [facility] PAIN, [place] EPIGASTRIC INTERNAL MED 00242 ASTHMA 03-19-2009 [facility] UNSPECIFIED EMERGENCY WITH SERVICES EXACERBATIO ASSOCIATES N 7393 NONALLOPATH 03-17-2009 [place] IC LESION FAMILY OF LUMBAR CHIROPRACTI REGION NEC C 5999 UNSPECIFIED 03-09-2009 [facility], DISORDER CHELSY [place] OF URETHRA&URI NARY TRACT 49714 OSTEOARTHRO 03-09-2009 Mamta DUEÑAS INVLV MX CHELSY W SITES BUT NOT SPEC GEN 84709 OTHER 02-18-2009 [facility] ABNORMAL EMERGENCY GLUCOSE SERVICES ASSOCIATES V5883 ENCOUNTER 01-25-2009 CARDIOLOGY FOR ASSOCIATES THERAPEUTIC OF DRUG [place] MONITORING 4580 ORTHOSTATIC 01-14-2009 [facility] AMBULANCE HYPOTENSION SERVICE 56252 ASPHYXIA 01-14-2009 [place] [facility] IM[facility] ASSOCIATES 7336 TIETZES 12-16-2008 [facility] DISEASE [place] INTERNAL MED 22159 STOMATITIS 12-04-2008 BECK DUEÑAS MUCOSITIS UNSPECIFIED 9778 POISONING 11-26-2008 [facility] OTHER SPEC EMERGENCY DRUGS&MEDIC SERVICES INAL ASSOCIATES SUBSTANCES 56703 UNSPECIFIED 10-30-2008 [facility], SITE OF CHELSY [place] ANKLE SPRAIN AND STRAIN E8498 OTHER 10-28-[address] [place] [address] OF IMAGING OCCURRENCE ASSOCIATES E8859 FALL FROM 10-28-2008 [place] OTHER MEDICAL SLIPPING IMAGING TRIPPING OR ASSOCIATES STUMBLING 7873 FLATULENCE 10-21-2008 [facility] ERUCTATION SERV AND GAS FOUNDATIO PAIN 97402 VOMITING 09-22-2008 [facility] ALONE EMERGENCY SERVICES ASSOCIATES 34662 VARIANTS 08-06-2008 [facility], MIGRAINE CHELSY W NEC INTRACT MIGRAINE W/[place] [address] UNS 07-24-2008 [facility], GASTRITIS&G CHELSY W ASTRODUODIT IS W/O MENTION HEMORR 96789 ABDOMINAL/P 05-25-2008 [facility] ELVIC [facility] SWELLING INC MASS/LUMP UNSPEC SITE 77745 NEPHROTIC 04-27-2008 [facility] SYND W/OTH [facility] PATHAL LES INC DZ CLASS ELSW 75490 OTHER SPEC 04-15-2008 [place] [facility] GASTRITIS SERV WITHOUT FOUNDATIO MENTION HEMORRHAGE 63757 ERYTHEMA 03-04-2008 [facility] DUE TO BURN [facility] OF INC ABDOMINAL WALL 05426 BLISTERS 03-04-2008 RODRIGUEZ W/EPIDERMAL NATIONAL LOSS DUE [employer]PORATION BURN ABD WALL 73697 DERMATITIS 02-23-2008 [facility] DUE TO [facility] OTHER INC RADIATION 98401 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-2007 [facility] CARDIOLOGY OSIS NUNAP[place] TICKET COLLECTOR CORONARY ARTERY 81158 OTHER 12-18-2007 [facility]SPNEA [facility] RESPIRATORY ABNORMALITI ES 7931 NONSPEC 12-18-2007 [facility] FIND RAD [facility] OTH EXAM HOSP BODY STRUCT LUNG FIELD 40824 NONSPECIFIC 12-18-2007 [facility] ABNORMAL [facility] ELECTROCARD HOSP IOGRAM V142 PERSONAL 12-18-2007 [facility] HISTORY OF [facility] ALLERGY TO HOSP SULFONAMIDE S 2443 OTHER 10-04-2007 [facility] HYPOTHYROID [place] [facility] RES[facility] SSD IS PROF SERV 2810 PERNICIOUS 09-20-2007 [facility] INTERNAL MED 7244 THORACIC/ANIL 09-17-2007 [facility] HOFFCRBENJAMIN [place] NEURITIS/RA DICULITIS UNSPEC 7246 DISORDERS 09-17-2007 [facility] OF SACRUM ERVIN Huff[place] 0340 STREPTOCOCC 09-12-2007 [facility] AL SORE [place] THROAT INTERNAL MED 4149 UNSPECIFIED 08-30-2007 [facility] ISCHEMIC INTERNAL HEART MED DISEASE 3569 UNSPEC 08-20-2007 [facility] HEREDIT&IDI [facility] OPATHIC INC PERIPHERAL NEUROPATHY 7812 ABNORMALITY 08-20-2007 [place], OF GAIT CHUCK 7820 DISTURBANCE 08-20-2007 [place], OF SKIN CHUCK SENSATION 244.9 250.00 250.01 272.4 401.9 599.0 724.5 Chronic [place] back pain [facility] [id number] [facility] B37.2 CANDIDIASIS OF SKIN AND NAIL D72.829 [...] 20 AI AT 61 09 09 D NV E 0 PH CH 10 AR AE [...] 01 30 30 RI 79 GH Ac PA 00 -0 -2 .0 TE 42 AN [...] ti IN 12 8- 0- 00 43 NV ve IR 17 20 20 AI E [...] 01 30 30 RI 79 GH Ac PA 00 -0 -1 .0 TE 42 AN ti EX 24 2- 0- 00 24 TA ve A 41 20 20 AI 15 53 09 09 D RA 0 PH ME MG AR SH M TA #3 BL 93 ET 8 BI 00 02 08 06 30 30 RI 77 AR Ac SO 37 -1 -2 .0 TE 04 NO ti PA 80 2- 7- 00 86 LD ve [...] 20 AI LI 70 09 09 D NV N 5 PH CH 50 AR AE [...] 00 30 30 RI 79 GH Ac PA 00 -0 -1 .0 TE 42 AN [...] 80 1- 0- 00 15 LD ve NV 21 20 20 AI DE 61 09 [...] -1 -3 .0 TE 04 NO ti PA 80 2- 0- 00 86 LD ve [...] -1 -0 .0 TE 04 NO ti PA 80 2- 2- 00 86 LD ve [...] 4- 2- 00 SI 15 ON ve PA 02 20 20 DE ED 20 09 [...] -1 -0 .0 TE 04 NO ti PA 80 2- 4- 00 86 LD ve [...] ti LI 91 8- 1- 00 90 NV ve N 83 20 20 AI E [...] AR M D #3 W 93 8 PA 37 05 05 00 28 28 RI [...] AN RA 30 09 09 D TO NV 5 PH NI DE AR O M [...] -1 -2 .0 TE 04 NO ti PA 80 2- 3- 00 86 LD ve [...] 00 20 10 RI 77 AR Ac PA 17 -1 -2 .0 TE 97 NO [...] 09 D RI TA 1 PH CH NV AR AR N- M D CA #3 [...] -1 -2 .0 TE 04 NO ti PA 80 2- 6- 00 86 LD ve [...] ti LI 91 8- 2- 00 90 NV ve N 83 20 20 AI E [...] -1 -2 .0 TE 04 NO ti PA 80 2- 6- 00 86 LD ve [...] 09 D RI TA 1 PH CH NV AR AR N- M D CA #3 [...] 00 20 10 RI 77 AR Ac PA 17 -1 -2 .0 TE 04 NO [...] AN RA 30 09 09 D TO NV 5 PH NI DE AR O M [...] ti LI 91 8- 0- 00 90 NV ve N 83 20 20 AI E [...] -0 -0 .0 TE 32 KE ti PA 80 6- 1- 00 28 NV ve OL 52 20 20 AI E [...] TATO AR HN M #3 93 8 PA 00 09 01 01 40 20 RI [...] 00 60 30 RI 76 AR Ac PA 09 -1 -1 .0 TE 18 NO [...] ti LI 91 8- 0- 00 90 NV ve N 83 20 20 AI E [...] 34 2- 0- 00 11 LD ve PA 59 20 20 AI ED 31 08 [...] -0 -2 .0 TE 32 KE ti PA 80 6- 0- 00 28 NV ve OL 52 20 20 AI E [...] 00 20 10 RI 75 AR Ac PA 17 -2 -0 .0 TE 17 NO [...] 08 D RI TA 1 PH CH NV AR AR N- M D CA #3 [...] W MG 93 8 TA BL ET PA 00 09 09 00 40 20 RI 74 AR Ac OC 09 -1 -2 .0 TE 92 NO ti HL 39 1- 6- 00 87 LD ve OR 65 20 20 AI PE 20 08 08 D RI RA 1 PH CH ZI AR AR NE M D #3 W 10 93 8 MG TA B PA 37 09 09 00 28 28 RI [...] ti LI 91 1- 1- 00 61 NV ve N 83 20 20 AI E 70 71 07 08 D JR -3 1 PH 0 AR WI 10 M LL 0 #3 IA UN 93 M IT 8 F /M L AL ME 00 09 09 00 21 6 RI 74 AR Ac TH 60 -0 -1 .0 TE 83 NO ti YL 34 4- 1- 00 10 LD ve PA 59 20 20 AI ED 31 08 [...] ti LI 91 1- 8- 00 61 NV ve N 83 20 20 AI E [...] ti LI 91 1- 7- 00 61 NV ve N 83 20 20 AI E [...] 82 5- 3- 00 76 Av ve PA 07 20 20 AI ai IL 20 08 08 D la 1 PH bl 2. AR e 5 M MG #3 93 TA 8 BL ET PA 00 06 07 00 40 10 RI [...] ti TH 81 4- 2- 00 59 NV ve YR 80 20 20 AI E [...] 34 9- 5- 00 01 LD ve PA 59 20 20 AI ED 31 08 [...] -0 -0 .0 TE 32 t ti PA 80 6- 8- 00 28 Av ve [...] 00 20 10 RI 72 No Ac PA 17 -1 -2 .0 TE 89 t [...] -0 -0 .0 TE 32 t ti PA 80 6- 7- 00 28 Av ve [...] 25 4- 6- 00 61 Av ve PA 03 20 20 AI ai IL 26 [...] Procedure DOS Code Location Performer Comment ECG 10650 [facility] ROUTINE [facility] ECG INC INC W/LEAST 12 LDS TRCG ONLY W/O I&R CREATINE 84584 [facility] KINASE 7 [facility] TOTAL INC INC THER 08426 [facility] PROPH/DX 7 [facility] NJX IV INC INC PUSH SINGLE/1S T SBST/DRUG ECG 75904 [facility] ROUTINE 7 [facility] ECG INC INC W/LEAST 12 LDS TRCG ONLY W/O I&R COMPREHEN 31826 [facility] SIVE 7 [facility] METABOLIC INC INC PANEL CREATINE 17378 [facility] KINASE MB 7 [facility] FRACTION INC INC ONLY INJECTION J2405 [facility] 7 [facility] ONDANSETR INC INC ON HCL PER 1 MG CULTURE 03129 [facility] BACTERIAL 7 [facility] INC INC QUANTTATI VE COLONY COUNT URINE CULTURE 92872 [facility] BCT 7 [facility] ISOL&PRSM INC INC PTV ID ISOLATE EA URINE THER 70583 [facility] PROPH/DX 7 [facility] NJX EA INC INC SEQL IV PUSH SBST/DRUG FAC RHYTHM 00713 [facility] ECG 1-3 7 [facility] LEADS INC INC TRACING ONLY W/O I&[place] [address] [facility] TROPONIN 7 [facility] QUANTITAT INC INC ANNABELLA BLOOD 52074 [facility] COUNT 7 [facility] COMPLETE INC INC AUTO&AUTO DIFRNTL WBC SUSCEPTIB 44002 [facility] LTY STDY 7 [facility] ANTIMICRB INC INC IAL MICRO/AGA R DILUTJ URNLS DIP 69075 [facility] 7 [facility] STICK/TAB INC INC LET REAGENT AUTO MICROSCOP Y RADIOLOGI 14980 [facility] C EXAM 7 [facility] CHEST 2 INC INC VIEWS FRONTAL&L ATERAL THERAPEUT 55244 [facility] IC 7 [facility] INJECTION INC INC IV PUSH EACH NEW DRUG CULTURE 38508 [facility] BACTERIAL 7 [facility] INC INC QUANTTATI VE COLONY COUNT URINE BLOOD 26230 [facility] COUNT 7 [facility] COMPLETE INC INC AUTO&[place] [address] [facility] FREE 7 [facility] [place] [address] [facility] THYROID 7 [facility] STIMULATI INC INC NG HORMONE TSH COLLECTIO 68442 [facility] N VENOUS 7 [facility] [place] [address] [facility] FREE 7 [facility] [place] [address] [facility] THYROID 7 [facility] [place] [address] [facility] TRIIODOTH 7 [facility] YRONINE INC INC T3 FREE OCCUPATIO 53927 [facility] NAL 7 [facility] THERAPY INC INC EVAL LOW COMPLEX 30 MINS APPL 33163 [facility] MODALITY 7 [facility] 1/> AREAS INC INC IONTOPHOR ESIS EA 15 MIN THERAPEUT 89747 [facility] IC PX 1/> 7 MEM [facility] AREAS INC INC EACH 15 MIN EXERCISES HOSPITAL G0463 [facility] OUTPATIEN [facility] E E VISIT HOSPITALS HOSPITALS ASSESS & MGMT PT IAADIADOO 60428 [facility] 7 [facility] INFLUENZA INC INC HOSPITAL G0463 [facility] OUTPATIEN 7 [facility] T CLIN INC INC VISIT ASSESS & MGMT PT IAADIADOO 35951 [facility] 7 [facility] STREPTOCO INC INC CCUS GROUP A INJ J0702 [facility] BETAMETHA 7 PHYSICIAN DELMAR Oleary GROUP ACETATE & PHOSPHATE 3 MG RADIOLOGI 39952 [facility] [place] SCALF C EXAM 7 RADIOLOGY CHEST 2 VIEWS FRONTAL&L ATERAL AMBULANCE A0429 [facility] SERVICE 7 AMBULANCE AMBULANCE BLS SERVICE SERVICE EMERGENCY TRANSPORT GROUND A0425 [facility] MILEAGE 7 AMBULANCE AMBUL[place] [address] [facility] HEAD/BRAI [facility] N W/[place] [address] [facility] CERVICAL [facility] SPINE W/O INC INC CONTRAST MATERIAL RADEX 02756 [facility] 7 MEDICAL COMPLETE IMAGING MINIMUM [address] [place] [address] [facility] LIPASE [facility] INC INC INJECTION J2405 [facility] ONDANSETR INC INC ON HCL PER 1 MG LOCM Q9967 [facility] [phone] MG/ML INC INC IODINE CONCENTRA TION PER ML CULTURE 70167 [facility] BACTERIAL 7 [facility] INC INC QUANTTATI VE COLONY COUNT URINE CULTURE 41295 [facility] BCT [facility] ISOL&PRSM [place] [address] [facility] INFUSION [facility] THERAPY/P INC INC ROPHYLAXI S /DX 1ST TO 1 HR BLOOD 55626 [facility] COUNT [facility] COMPLETE INC INC AUTO&AUTO DIFRNTL WBC SUSCEPTIB 37947 [facility] LTY STDY 7 [facility] ANTIMICRB INC INC IAL MICRO/AGA R DILUTJ URNLS DIP 48065 [facility] STICK/TAB INC [place] [address] [facility] ABDOMEN & 7 [facility] PELVIS INC INC W/CONTRAS T MATERIAL THERAPEUT 73092 [facility] IC [facility] INJECTION INC INC IV PUSH EACH NEW DRUG COMPREHEN 41718 [facility] SIVE 7 [facility] [address] [facility] AMYLASE 7 [facility] INC INC CULTURE 69750 [facility] BACTERIAL 7 [facility] INC INC QUANTTATI VE COLONY COUNT URINE CULTURE 22473 [facility] BCT 7 [facility] ISOL&PRSM INC INC PTV ID ISOLATE EA URINE SUSCEPTIB 58726 [facility] LTY STDY 7 [facility] ANTIMICRB INC INC IAL MICRO/AGA R DILUTJ ALBUTEROL J7613 YOUR YOUR INHAL 7 PHARMACY PHARMACY NON-CP Degreed [facility] PROD THRU DME U DOSE 1 MG INJECTION J2405 [facility] ONDANSETR INC INC ON HCL PER 1 MG ADMN SET A7003 YOUR YOUR SM VOL 7 PHARMACY PHARMACY NONFILTR Degreed [facility] PNEUMAT NEBULIZR DISPBL THERAPEUT 05681 [facility] IC [facility] PROPHYLAC INC INC TIC/DX INJECTION SUBQ/IM PHRM Q0513 YOUR YOUR DISPENSIN 7 PHARMACY PHARMACY G FEE Degreed [facility] INHALATIO N RX; PER 30 DAYS OVA&NOEL 72649 [facility] ITES 7 [facility] DIRECT INC INC SMEARS CONCENTRA TION & ID LACTOFERR 79652 [facility] IN FECAL 7 [facility] QUALITATI INC INC VE IADNA-DNA 23521 [facility] /RNA GI 7 [facility] PTHGN INC INC MULTIPLEX PROBE TQ 12- CREATINE 34993 [facility] KINASE 7 [facility] TOTAL INC INC ECG 66549 [facility] ROUTINE 7 [facility] ECG INC INC W/LEAST 12 LDS TRCG ONLY W/O I&R RADIOLOGI 72790 [facility] [facility] EXAM 7 MEDICAL CHEST 2 IMAGING VIEWS ASS FRONTAL&L ATERAL APPLICATI 42908 [facility] MODALITY INC INC 1/> AREAS HOT/COLD PACKS APPL 50314 [facility] MODALITY 7 [facility] 1/> AREAS INC INC ULTRASOUN D EA 15 MIN ECG 01140 [facility] SINGH ROUTINE 7 PHYSICIAN ECG S, PLLC W/LEAST 12 LDS I&R ONLY E-STIM G0283 [facility] 1/> AREAS 7 [facility] OTH THAN INC INC WND CARE PART TX PLAN COMPREHEN 86594 [facility] SIVE 7 [facility] METABOLIC INC INC PANEL CREATINE 77877 [facility] KINASE MB 7 [facility] FRACTION INC INC ONLY BLOOD 67855 [facility] COUNT 7 [facility] COMPLETE INC INC AUTO&[place] [address] [facility] TROPONIN 7 [facility] QUANTITAT INC INC ANNABELLA APPL 82347 [facility] MODALITY 7 [facility] 1/> AREAS INC INC ULTRASOUN D EA 15 MIN APPLICATI 65921 [facility] ON 7 [facility] MODALITY INC INC 1/> AREAS HOT/COLD PACKS E-STIM G0283 [facility] 1/> AREAS 7 [facility] OTH THAN INC INC WND CARE PART TX PLAN ECG 21695 [facility] ROUTINE 7 [facility] ECG INC INC W/LEAST 12 LDS TRCG ONLY W/O I&R ECG 90240 LEIGHT[facility] PEDROZA ROUTINE 7 PHYSICIAN ECG S, PLLC W/LEAST 12 LDS I&R ONLY CREATINE 17205 [facility] KINASE 7 [facility] TOTAL INC INC ECG 15436 [facility] ROUTINE 7 [facility] ECG INC INC W/LEAST 12 LDS TRCG ONLY W/O I&R DRUG TEST G0480 [facility] DEFINITV [address] ID INC INC METH P DAY 1-7 DRUG CL COMPREHEN 94598 [facility] SIVE 7 [facility] METABOLIC INC INC PANEL CREATINE 08983 [facility] KINASE MB 7 [facility] [place] [address] [facility] FREE 7 [facility] [place] [address] [facility] THYROID 7 [facility] STIMULATI INC INC NG HORMONE TSH DRUG TEST 04975 [facility] PRSMV 7 [facility] INSTRMNT INC INC CHEMISTRY ANALYZERS CULTURE 25776 [facility] BACTERIAL 7 [facility] INC INC QUANTTATI VE COLONY COUNT URINE CULTURE 26023 [facility] RABAGOON BCT 7 [facility] ISOL&PRSM INC INC PTV ID ISOLATE EA URINE BLOOD 90453 [facility] GASES ANY 7 [facility] INC INC COMBINATI ON PH PCO2 PO2 CO2 HCO3 BLOOD 87307 [facility] COUNT 7 [facility] COMPLETE INC INC AUTO&AUTO DIFRNTL WBC SUSCEPTIB 63797 [facility]ONKATI T[facility] LTY STDY 7 [facility] ANTIMICRB INC INC IAL MICRO/AGA R DILUTJ URNLS DIP 77796 [facility] 7 [facility] STICK/TAB INC INC [place] [address] [facility] TROPONIN 7 [facility] QUANTITAT INC INC ANNABELLA DRUG TEST G0481 BR[facility] RABAGOON DEFINITV [address] ID INC INC METH P DAY 8-14 DRUG CL APPLICATI 86531 [facility] ON 7 [facility] MODALITY INC INC 1/> AREAS HOT/COLD PACKS APPL 33527 [facility] MODALITY 7 [facility] 1/> AREAS INC INC ULTRASOUN D EA 15 MIN E-STIM G0283 [facility] 1/> AREAS 7 [facility] OTH THAN INC INC WND CARE PART TX PLAN BLOOD 92259 [facility] COUNT 7 [facility] COMPLETE INC INC AUTO&AUTO DIFRNTL WBC APPLICATI 32926 [facility] ON 7 [facility] MODALITY INC INC 1/> AREAS HOT/COLD PACKS E-STIM G0283 [facility] 1/> AREAS 7 [facility] OTH THAN INC INC WND CARE PART TX PLAN APPL 39220 [facility] MODALITY 7 [facility] 1/> AREAS INC INC ULTRASOUN D EA 15 MIN PHYSICAL 41359 [facility] THERAPY 7 [facility] EVALUATIO INC INC N MOD COMPLEX [address] THORAX 85543 [facility] W/O 7 MEDICAL CONTRAST IMAGING MATERIAL ASS BLOOD 32735 [facility] COUNT 6 [facility] COMPLETE INC INC AUTO&AUTO DIFRNTL WBC RADIOLOGI 55166 [facility] C EXAM 6 [facility] CHEST 2 INC INC VIEWS FRONTAL&L ATERAL DRUG TST G0477 [facility] PRESUMP;C 6 [facility] PBL BEING INC INC READ DC OPT OBV ONLY COLLECTIO 58156 [facility] N VENOUS 6 [facility] BLOOD INC INC VENIPUNCT URE COMPREHEN 29099 [facility] SIVE 6 [facility] [place] [address] [facility] THYROID 6 [facility] STIMULAT[place] [address] [facility] THYROXINE 6 [facility] TOTAL INC INC THERAPEUT 42454 [facility] IC 6 [facility] PROPHYLAC INC INC TIC/DX INJECTION SUBQ/IM GLUC BLD 60088 [facility] GLUC MNTR 6 [facility] DEV INC INC CLEARED FDA SPEC HOME USE BLD GLU A4253 CRISTIN AMARAL TEST/REAG 6 HOME HOME T [facility] HOME BLD EQUIPME EQUIPME GLU MON-50 LANCETS A4259 CRISTIN AMARAL PER BOX 6 HOME HOME OF 100 MEDICAL MEDICAL EQUIPME EQUIPME SBSQ 99562 [facility] 6 PHYSICIAN SHANTHI CARE/DAY S [place] [address] [place] [address] [facility] PRUDENCIO ABDOMEN & 6 MEDICAL PELVIS IMAGING W/O ASS CONTRAST MATERIAL RADIOLOGI 44768 [facility] C 6 MEDICAL EXAMINATI IMAGING ON CHEST ASS SING[place]IEW FRONTAL CRITICAL 06267 [facility] HAYDEN SHAKILA CARE 6 PHYSICIAN ILL/INJUR S, PLLC ED PATIENT INIT 30-74 MIN ECG 93452 BRANDON CHOWDHURY JR ROUTINE 6 [facility] W/LEAST P 12 LDS I&R ONLY INITIAL 95067 [facility] 6 PHYSICIAN SHANTHI CARE/DAY S GROUP 50 MINUTES RADIOLOGI 91372 [facility] C EXAM 6 MEDICAL ANITA CHEST 2 IMAGING VIEWS ASS FRONTAL&L ATERAL COLLECTIO 98641 [facility] N VENOUS 6 [facility] BLOOD INC INC VENIPUNCT URE COMPREHEN 35266 [facility] SIVE 6 [facility] [place] [address] [facility] STREPTOCO 6 [facility] CCUS INC INC GROUP A CULTURE 72190 [facility] BCT 6 [facility] ISOL&PRSM INC INC PTV ID ISOLATE EA URINE SUSCEPTIB 10155 [facility] LTY STDY 6 [facility] ANTIMICRB INC INC IAL MICRO/AGA R DILUTJ CUL BACT 74739 [facility] XCPT 6 [facility] URINE INC INC BLOOD/STO OL AEROBIC ISOL CULTURE 95928 [facility] BACTERIAL 6 [facility] INC INC QUANTTATI VE COLONY COUNT URINE THERAPEUT 05769 [facility] IC 6 [facility] PROPHYLAC INC INC TIC/DX INJECTION SUBQ/IM IAADI 23904 [facility] INFLUENZA 6 [facility] B VIRUS INC INC BLOOD 01841 [facility] COUNT 6 [facility] COMPLETE INC INC AUTO&AUTO DIFRNTL WBC URNLS DIP 88024 [facility] 6 [facility] STICK/TAB INC INC LET REAGENT AUTO MICROSCOP Y IAADI 98736 [facility] INFFLUENZ 6 [facility] A A VIRUS INC INC MRI 03942 [facility] SPINAL 6 [facility] CANAL INC INC LUMBAR W/O CONTRAST MATERIAL 3D 15480 [facility] RENDERING 6 [facility] W/INTERP INC INC & POSTPROCE SS SUPERVISI ON RADIOLOGI 75929 [facility] CRISOSTOMOINELETITIA C 6 MEDICAL ANITA EXAMINATI IMAGING ON KNEE 3 ASS VIEWS THERAPEUT 63901 [facility] IC 6 [facility] INJECTION INC INC IV PUSH EACH NEW DRUG THER 79251 [facility] PROPH/DX 6 [facility] NJX IV INC INC PUSH SINGLE/1S T SBST/DRUG E-STIM G0283 [facility] 1/> AREAS 6 [facility] OTH THAN INC INC WND CARE PART TX PLAN APPLICATI 17472 [facility] ON 6 [facility] MODALITY INC INC 1/> AREAS HOT/COLD PACKS THERAPEUT 15412 [facility] IC PX 1/> 6 [facility] AREAS INC INC EACH 15 MIN EXERCISES PHYSICAL 43724 [facility] THERAPY 6 [facility] EVALUATIO INC INC N LANCETS A4259 CRISTIN CRISTIN PER BOX 6 HOME HOME OF 100 MEDICAL MEDICAL EQUIPME EQUIPME BLD GLU A4253 CRISTIN CRISTIN TEST/REAG 6 HOME HOME T STRIPS MEDICAL MEDICAL HOME BLD EQUIPME EQUIPME GLU MON-50 DEBRIDEME 89658 [facility] [facility] NAIL 6 FOOT & ANY ANKLE CE METHOD 6/> POTASSIUM 92610 [facility] SERUM 6 [facility] PLASMA/WH INC INC OLE BLOOD COLLECTIO 60582 [facility] N VENOUS 6 [facility] BLOOD INC INC VENIPUNCT URE AMBULANCE A0429 [facility] SERVICE 6 AMBULANCE AMBULANCE BLS SERVICE SERVICE EMERGENCY TRANSPORT GROUND A0425 [facility] MILEAGE 6 AMBULANCE AMBULANCE PER SERVICE SERVICE STATUTE MILE POTASSIUM 14128 [facility] SERUM 6 [facility] PLASMA/WH INC INC OLE BLOOD COMPREHEN 41798 [facility] SIVE 6 [facility] METABOLIC INC INC PANEL RADEX 78322 [facility] [facility] ALL RIBS UNI 6 MEDICAL W/POSTERO IMAGING ANT CH ASS MINIMUM 3 VIEWS BLOOD 26332 [facility] COUNT 6 [facility] COMPLETE INC INC AUTO&AUTO DIFRNTL WBC COLLECTIO 95716 [facility] N VENOUS 6 [facility] BLOOD INC INC VENIPUNCT URE COMPREHEN 25841 [facility] SIVE 6 [facility] METABOLIC INC INC PANEL BLOOD 81562 [facility] COUNT 6 [facility] COMPLETE INC INC AUTO&AUTO DIFRNTL WBC RADEX 80574 [facility] SH[facility] 6 MEDICAL MEDICAL COMPLETE IMAGING IMAGING MINIMUM 2 ASS ASS VIEWS RADIOLOGI 06799 [facility] ALL C EXAM 6 MEDICAL CHEST 2 IMAGING VIEWS ASS FRONTAL&L ATERAL COMPREHEN 31987 [facility] SIVE 6 [facility] METABOLIC INC INC PANEL COLLECTIO 69604 [facility] N VENOUS 6 [facility] BLOOD INC INC VENIPUNCT URE RADEX 94474 [facility] RIBS UNI 6 [facility] W/POSTERO INC INC ANT CH MINIMUM 3 VIEWS COLLECTIO 35034 [facility] N VENOUS 6 [facility] BLOOD INC INC VENIPUNCT URE COMPREHEN 06012 [facility] SIVE 6 [facility] [place] [address] [facility] LACTATE 6 [facility] INC INC BLOOD 31476 [facility] COUNT 6 [facility] COMPLETE INC INC AUTO&AUTO DIFRNTL WBC CULTURE 40911 [facility] BACTERIAL 6 [facility] BLOOD INC INC AEROBIC W/ID ISOLATES SUSCEPTIB 47720 [facility] LTY STDY 6 [facility] ANTIMICRB INC INC IAL MICRO/AGA R DILUTJ CUL BACT 01301 [facility] XCPT 6 [facility] URINE INC INC BLOOD/STO OL AEROBIC ISOL CUL BACT 58538 [facility] AEROBIC 6 [facility] ADDL INC INC METHS DEFINITIV E EA ISOL LANCETS A4259 CRISTIN CRISTIN PER BOX 6 HOME HOME OF 100 MEDICAL MEDICAL EQUIPME EQUIPME BLD GLU A4253 CRISTIN AMARAL TEST/REAG 6 HOME HOME T [facility] MED[facility] MEDICAL HOME BLD EQUIPME EQUIPME GLU MON-50 CT SOFT 36241 [facility] TISSUE 6 [facility] NECK INC INC W/CONTRAS T MATERIAL LOCM Q9967 [facility] 300-399 6 [facility] MG/ML INC INC IODINE CONCENTRA TION PER ML RADEX 23201 [facility] ESOPHAGUS 6 [facility] INC INC RADEX 79979 [facility] SPINE 6 [facility] CERVICAL INC INC 4 OR 5 VIEWS RADEX HIP 98474 [facility] 6 [facility] UNILATERA INC INC L WITH PELVIS 2-3 VIEWS RADEX HIP 73268 [facility] FLANNERY ALL 6 MEDICAL UNILATERA IMAGING L WITH ASS PELVIS 1 VIEW RADEX 69194 [facility] ALL SPINE 6 MEDICAL CERVICAL IMAGING 2 OR 3 ASS VIEWS BLOOD 68465 [facility] BR[facility]ON COUNT 6 [facility] COMPLETE INC INC AUTO&AUTO DIFRNTL WBC COMPREHEN 87518 [facility] SIVE 6 [facility] [place] [address] BR[facility] AMMONIA 6 [facility] INC INC COLLECTIO 44888 [facility] N VENOUS 6 [facility] BLOOD INC INC VENIPUNCT URE CREATININ 91468 [facility] E BLOOD 6 [facility] INC INC BLOOD 45685 [facility] COUNT 6 [facility] COMPLETE INC INC AUTO&AUTO DIFRNTL WBC COLLECTIO 06135 [facility] N VENOUS 6 [facility] [place] [address] [facility] FREE 6 [facility] [place] [address] [facility] THYROID 6 [facility] STIMULATI [place] [address] [facility] UREA 6 [facility] NITROGEN INC INC QUANTITAT ANNABELLA COLLECTIO 81992 [facility] N VENOUS 5 [facility] BLOOD INC INC VENIPUNCT URE COMPREHEN 21910 [facility] SIVE 5 [facility] [address] [facility] THYROID 5 [facility] STIMULATI INC INC NG HORMONE TSH BLOOD 27879 [facility] COUNT 5 [facility] COMPLETE INC INC AUTO&AUTO DIFRNTL WBC RAD[facility]OLOGI 71272 [facility] EXAM 5 MEDICAL CHEST 2 IMAGING VIEWS ASS FRONTAL&L ATERAL TX PROC G0238 [facility] IMPRV 5 [facility] RESP INC INC FUNCT NOT G0237 FCE-FCE 15MIN CT THORAX 95888 [facility] W/O 5 [facility] CONTRAST INC INC MATERIAL PRESSURIZ 03373 [facility] ED/NONPRE 5 [facility] SSURIZED INC INC INHALATIO N TREATMENT RADIOLOGI 28952 [facility] C 5 MEDICAL ANITA EXAMINATI IMAGING ON PELVIS ASS 1/2 VIEWS RADEX 05053 [facility] WRIST 5 MEDICAL ANITA COMPLETE IMAGING MINIMUM 3 ASS VIEWS RADEX 02779 [facility] HAND 5 [facility] MINIMUM 3 INC INC VIEWS APPLICATI 28848 [facility] ON SHORT 5 [facility] ARM INC INC SPLINT FOREARM-H AND STATIC WRIST L3908 [facility] HAND 5 TECHNOLOG TECHNOLOG ORTHOSIS IES INC IES INC EXT CONTROL COCK-UP PREFAB RADIOLOGI 18838 [facility] C 5 MEDICAL ANITA EXAMINATI IMAGING ON KNEE 3 ASS VIEWS RADEX 33368 [facility] RIBS UNI 5 MEDICAL ANITA W/POSTERO IMAGING ANT CH [place] MIN[place] [address] [place] [address] [facility] MAXILLOFA 5 MEDICAL ANITA CIAL W/O IMAGING CONTRAST ASS MATERIAL DIAB ONLY A5500 [facility] FIT CSTM 5 MEDICAL MEDICAL PREP&SPL SUPPLY SUPPLY SHOE [facility] DNSITY INSRT FOR DIAB A5512 [place] [place] ONLY MX 5 MEDICAL MEDICAL DNSITY SUPPLY [employer] FORMD PRFAB EA ANES OPEN 24781 [facility] PJ PROC 5 ANESTH BONES OF THE LOWER BLUE LEG/ANKLE /FOOT NOS ECG 01052 BRANDON CHOWDHURY JR ROUTINE 5 [facility] W/LEAST P 12 [place] [address] SURG 5 TORO & PATHOLOGY DUBILIER GROSS&SHANTHI ROSCOPIC EXAM DECALCIFI [address] CATION 5 TORO & PROCEDURE DUBILIER RADEX 18307 [facility] FOOT 5 MEDICAL AYLA COMPLETE IMAGING MINIMUM [address] [place] [address] [facility] HEAD/BRAI 5 MEDICAL AYLA [place] [address] [facility] CERVICAL 5 MEDICAL AYLA SPINE W/O IMAGING CONTRAST ASS MATERIAL GROUND A0425 [facility] MILEAGE 5 AMBULANCE AMBULANCE PER SERVICE SERVICE STATUTE MILE RADEX HIP 17438 [facility] 5 MEDICAL AYLA UNILATERA IMAGING L ASS COMPLETE MINIMUM 2 VIEWS AMB A0427 [facility] SERVICE 5 AMBULANCE AMBULANCE ALS SERVICE SERVICE EMERGENCY TRANSPORT LEVEL 1 RADIOLOGI 54351 [facility] C 5 MEDICAL AYLA EXAMINATI IMAGING ON PELVIS ASS 1/2 VIEWS CULTURE 54773 COMBINED COMBINED BACTERIAL 5 PHYSICIAN PHYSICIAN S LA S LA QUANTTATI VE COLONY COUNT URINE BLD GLU A4253 CRISTIN AMARAL TEST/REAG 5 HOME HOME T [facility] MEDICAL MEDICAL HOME BLD EQUIPME EQUIPME GLU MON-50 GLUC BLD 29095 [facility] GLUC MNTR 5 [facility] DEV INC INC CLEARED FDA SPEC HOME USE BLOOD 29306 [facility] COUNT 5 [facility] COMPLETE INC INC AUTO&AUTO DIFRNTL WBC SUSCEPTIB 72240 [facility] LTY STDY 5 [facility] ANTIMICRB INC INC IAL MICRO/AGA R DILUTJ URNLS DIP 41975 [facility] 5 [facility] STICK/TAB INC INC LET REAGENT AUTO MICROSCOP Y CULTURE 71691 [facility] BACTERIAL 5 [facility] INC INC QUANTTATI VE COLONY COUNT URINE CULTURE 34976 [facility] BCT 5 [facility] ISOL&PRSM INC INC PTV ID ISOLATE EA URINE COLLECTIO 45094 [facility] N VENOUS 5 [facility] BLOOD INC INC VENIPUNCT URE COMPREHEN 13888 [facility] SIVE 5 [facility] METABOLIC INC INC PANEL THER 12875 [facility] PROPH/DX 5 [facility] NJX IV INC INC PUSH SINGLE/1S T SBST/[place] [address] [facility] HEPATITIS 5 [facility] B INC INC SURFACE ANTIGEN HEPATITIS 40507 BRANDON Boyd CORE 5 [facility] ANTIBODY INC INC HBCAB TOTAL HEPATITIS 95415 [facility] B SURF 5 [facility] ANTIBODY INC INC HBSAB HEPATITIS 93693 [facility] A 5 [facility] ANTIBODY INC INC HAAB COLLECTIO 37501 [facility] N VENOUS 5 [facility] BLOOD INC INC VENIPUNCT URE COMPREHEN 59845 [facility] SIVE 5 [facility] METABOLIC INC INC PANEL HEPATITIS 26437 [facility] C 5 [facility] ANTIBODY INC INC BLOOD 94255 [facility] COUNT 5 [facility] COMPLETE INC INC AUTO&AUTO DIFRNTL WBC DUP-SCAN 96183 [facility] XTR VEINS 5 [facility] INC INC UNILATERA L/LIMITED STUDY CV STRS 44681 [facility] KILLIAN ACOSTA TST 5 PHYSICIAN XERS&/OR S GROUP RX CONT ECG W/O I&R CV STRS 55[address] [facility] WE[address]S TST [address] [facility] XERS&/OR HOSPITAL RX CONT P ECG I&R ONLY MYOCARDIA 78902 BRANDON Yoon SPECT 5 [facility] MULTIPLE INC INC STUDIES TECHNETIU A9500 [facility]ANDON Wayne TC-99M 5 [facility] SESTAMIBI INC INC DX PER STUDY DOSE CV STRS 29945 BRANDON BRANDON TST 5 [facility] XERS&/OR INC INC RX CONT ECG TRCG ONLY INJECTION J2785 [facility] 5 [facility] REGADENOS INC INC ON 0.1 MG RADEX 20041 [facility] FLANNERY ALL WRIST 5 MEDICAL COMPLETE IMAGING MINIMUM 3 ASS VIEWS RADIOLOGI 88930 [facility] ALL C 5 MEDICAL EXAMINATI IMAGING ON PELVIS ASS 1/2 VIEWS RADEX 36179 [facility] [facility] ALL SHOULDER 5 MEDICAL COMPLETE IMAGING MINIMUM 2 ASS VIEWS RADIOLOGI 03493 [facility] FLANNERY ALL C 5 MEDICAL EXAMINATI IMAGING ON KNEE 3 ASS VIEWS RADEX 41958 [facility] FLANNERY ALL RIBS 5 MEDICAL UNILATERA IMAGING L 2 VIEWS ASS AMBULANCE A0429 [facility] SERVICE 5 AMBULANCE AMBULANCE BLS SERVICE SERVICE EMERGENCY TRANSPORT GROUND A0425 [facility] 5 AMBULANCE AMBULANCE PER SERVICE SERVICE STATUTE MILE RADIOLOGI 55459 [facility] T[facility] C 5 [facility] EXAMINATI INC INC ON CHEST SINGLE VIEW FRONTAL RADEX 38234 [facility] T[facility] RIBS UNI 5 [facility] W/POSTERO INC INC ANT CH MINIMUM 3 VIEWS COLLECTIO 62769 [facility] N VENOUS 5 [facility] BLOOD INC INC VENIPUNCT URE BASIC 22402 [facility] METABOLIC 5 [facility] PANEL INC INC CALCIUM TOTAL BLOOD 44167 [facility] COUNT 5 [facility] COMPLETE INC INC AUTO&AUTO DIFRNTL WBC BLD GLU A4253 CRISTIN AMARAL TEST/REAG 5 HOME HOME T [facility] MEDICAL HOME BLD EQUIPME EQUIPME GLU MON-[place] [address] [facility] [place] ABDOMEN & 5 MEDICAL ANITA PELVIS IMAGING W/CONTRAS ASS T MATERIAL BLOOD 53992 [facility] UNIV[facility] COUNT 5 Y Y COMPLETE [facility] AUTOMATED THROMBOPL 91837 [facility] ASTIN 5 Y Y TIME [facility] PARTIAL PLASMA/WH OLE BLOOD INFUSION J7030 [facility] NORMAL 5 Y Y [facility] SOLUTION 1000 CC PROTHROMB 44860 [facility] IN TIME 5 Y Y HOSPITAL HOSPITAL SPCL STN 53448 [facility] 2 I&R 5 Y Y EXCPT [facility] MICROORG/ ENZYME/IM CYT LEVEL V 38273 [facility] SURG 5 Y Y PATHOLOGY HOSPITAL [facility] GROSS&SHANTHI ROSCOPIC EXAM BIOPSY 11057 [facility] LIVER 5 Y Y [facility]LE [facility] PERCUTANE OUS GLUCOSE 86844 [facility] QUANTITAT 5 Y Y ANNABELLA BLOOD [facility] XCPT REAGENT STRIP RADIOLOGI 49620 [place] JULY C 5 MEDICAL SHANTHI EXAMINATI SERV ON CHEST FOUNDATIO SINGLE N VIEW FRONTAL IMHISTOCH 57601 LOC [facility] EM/CYTCHM 5 PATHOLOGY PATHOLOGY EA [employer] [place] [address] LOC [facility] SURG 5 PATHOLOGY PATHOLOGY PATHOLOGY SERVICES SERVICES GROSS&SHANTHI ROSCOPIC EXAM IMHISTOCH 44592 LOC [facility] EM/CYTCHM 5 PATHOLOGY PATHOLOGY 1ST SERVICES SERVICES ANTIBODY STAIN PROCEDURE CUL BACT 79362 [facility] XCPT 5 [facility] URINE INC INC BLOOD/STO OL AEROBIC ISOL CUL BACT 84342 [facility] AEROBIC 5 [facility] ADDL INC INC METHS DEFINITIV E EA ISOL SUSCEPTIB 73701 [facility] LTY STDY 5 [facility] ANTIMICRB INC INC IAL MICRO/AGA R DILUTJ RADEX 19721 [facility] SPINE 5 MEDICAL A[facility] CERVICAL IMAGING 2 OR 3 ASS VIEWS BASIC 91123 [facility] METABOLIC 5 [facility] EED MOH PANEL INC CALCIUM TOTAL OBSERVATI 68155 [place] USERY AND ON CARE 5 NEW [place] DISCHARGE INTERNAL MED MANAGEMEN T NONINVASI 96003 [facility] VE 5 [facility] EAR/PULSE INC INC OXIMETRY SINGLE DETER GLUC BLD 16279 [facility] GLUC MNTR 5 [facility] DEV INC INC CLEARED FDA SPEC HOME USE BLOOD 26839 [facility] COUNT 5 [facility] COMPLETE INC INC AUTO&AUTO DIFRNTL WBC PRESSURIZ 37654 [facility] ED/NONPRE 5 [facility] SSURIZED INC [facility]IO [facility] G0378 [facility] OBSERVATI 5 [facility] ON INC INC SERVICE PER HOUR COLLECTIO 48006 [facility] N VENOUS 5 [facility] [place] [address] [facility] STREPTOCO 5 [facility] [place] [address] [facility] INFUSION 5 [facility] THER INC INC PROPH ADDL SEQUENTIA L TO 1 HR THERAPEUT 44024 [facility] IC 5 [facility] INJECTION INC INC IV PUSH EACH NEW DRUG SUSCEPTIB 44511 [facility] LTY STDY 5 [facility] ANTIMICRB INC INC IAL MICRO/AGA R DILUTJ CULTURE 05797 [facility] BACTERIAL 5 [facility] BLOOD INC INC AEROBIC W/ID ISOLATES BLOOD 78592 [facility] COUNT 5 [facility] COMPLETE INC INC AUTO&AUTO DIFRNTL WBC GLUC BLD 85782 [facility] GLUC MNTR 5 [facility] DEV INC INC CLEARED FDA SPEC HOME USE INJECTION J2310 [facility] NALOXONE 5 [facility] HCL PER INC INC 1 MG INITIAL 01603 [facility] USERY AND OBSERVATI 5 [facility]/DAY MED 30 [place] [address] [facility] INFUSION 5 [facility] THERAPY/P INC INC ROPHYLAXI S /DX 1ST TO 1 HR IAADI 81138 [facility] INFLUENZA 5 [facility] B VIRUS INC INC IAADI 07956 [facility] INFFLUENZ 5 [facility] A A VIRUS INC INC HOSPITAL G0378 [facility] OBSERVATI 5 [facility] ON INC INC SERVICE PER HOUR RADIOLOGI 93648 [facility] C 5 [facility] EXAMINATI INC INC ON CHEST SING[place] FRONTAL CUL BACT 04021 [facility] XCPT 5 [facility] URINE INC INC BLOOD/STO OL AEROBIC ISOL CUL BACT 65977 [facility] AEROBIC 5 [facility] ADDL INC INC METHS DEFINITIV E EA ISOL RADIOLOGI 13597 [facility] COR[facility]EL C 5 MEDICAL AYLA EXAMINATI IMAGING ON CHEST ASS SINGLE VIEW FRONTAL PROTHROMB 45615 [facility] IN TIME 5 [facility] INC INC COMPREHEN 73110 [facility] SIVE 5 [facility] METABOLIC INC INC PANEL COLLECTIO 86888 [facility] T[facility] N VENOUS 5 [facility] [place] [address] BRANDON BRANDON GAMMAGLOB 5 [facility] ULIN IGA INC INC IGD IGG IGM EACH BLOOD 44237 [facility] BRANDON COUNT 5 [facility] COMPLETE INC INC AUTO&AUTO DIFRNTL WBC IM ADM 98636 [place] PRQ ID 5 MEDICAL [facility] SUBQ/IM SERV ACH NJXS 1 FOUNDATIO VACCINE N HEPATITIS 52538 [place] A & B 5 MEDICAL [facility] VACCINE SERV ACH HEPA-HEPB FOUNDATIO ADULT IM N RADEX 81384 [facility] SHOULDER 5 MEDICAL [facility] COMPLETE IMAGING MINIMUM 2 ASS VIEWS RADEX HIP 68202 [facility] 5 MEDICAL AYLA UNILATERA IMAGING L ASS COMPLE[place] [address] [place] [address] [place] [facility] HEAD/BRAI 5 MEDICAL [facility]YLA N W/O IMAGING CONTRAST ASS MATERIAL RADEX 70779 BRANDON RABAGOON WRIST 4 [facility] COMPLETE INC INC MINIMUM 3 VIEWS RADEX 88971 BRANDON TAYLOR HAND 4 [facility] MINIMUM 3 INC INC VIEWS APPLICATI 66887 [facility]ORT 4 KAMAR MOH ARM EMERGENCY SPLINT PHYS FOREARM-H AND STATIC PREPJ& 65614 MARNI MARNI ALLERGEN 4 LUIS ALFREDO LUIS ALFREDO IMMUNOTHE RAPY 1/OIL DIPPER ANTIGEN BLD GLU A4253 CRISTIN CRISTIN TEST/REAG 4 HOME HOME T [facility] BLD EQUIPME EQUIPME GLU MON-50 ADMINISTR G0010 BUNNY SOURIANAR ATION OF 4 MEDICAL AYANANE HEPATITIS SERV ACH B FOUNDATIO VACCINE N HEPATITIS 21528 [place] A & B 4 MEDICAL [facility]YA[facility]NE VACCINE SERV ACH HEPA-HEPB FOUNDATIO ADULT IM N SPMTRY 25658 MARNI MARNI W/VC 4 LUIS ALFREDO LUIS ALFREDO EXPIRATOR Y LULU W/WO MXML VOL VNTJ COMPRE 61432 EAR, NOSE EAR, NOSE AUDIOMETR 4 AND AND Y THROAT THROAT THRESHOLD SPECIAL SPECIAL EVAL SP RECOGNIJ TYMPANOME 86827 EAR, NOSE SHASHY TRY 4 AND SOBEIDA THROAT SPECIAL RADEX HIP 22136 [facility] [facility] 4 MEDICAL AYLA UNILATERA IMAGING L ASS COMPLETE MINIMUM 2 VIEWS COLLECTIO 74850 [facility] N VENOUS 4 [facility] [place] [address] [facility] THYROID 4 [facility] STIMULATI INC INC NG HORMONE TSH COMPREHEN 52525 [facility] ATYLOR SIVE 4 [facility] [address] [facility] AMMONIA 4 [facility] INC INC LIPID 35249 [facility] PANEL 4 [facility] INC INC HEMOGLOBI 77097 [facility] N 4 [facility] GLYCOSYLA INC INC ML A1C BLOOD 35725 [facility] COUNT 4 [facility] COMPLETE INC INC AUTO&AUTO DIFRNTL WBC ALBUMIN 60633 [facility] URINE 4 [facility] MICROALBU INC INC MIN QUANTIATI VE DETERMINA 17432 EVELYN RAMIREZ TION 4 [facility] 98539 [facility] 4 VISION XM&EVAL CENTER COMPRHNSV ESTAB PT 1/> COLLECTIO 09832 [facility] N VENOUS 4 Y Y [facility]LO[facility] VENIPUNCT URE COMPREHEN 77019 [facility] 4 Y Y [facility] PANEL ANTINUCLE 99281 [facility] AR 4 Y Y ANTIBSUTTER [facility] S NADINE ANTINUCLE 36602 [facility] 4 Y Y ANTIBSUTTER [facility] S NADINE TITER BLD GLU A4253 [...] [employer] DNSITY INSRT INFUSION J7030 [facility] 4 Y Y [facility] SOLUTION 1000 CC COLOREC G0121 [place] CANCR 4 MEDICAL AMANDA SCR; SERV COLNSCPY FOUNDATIO NOT MEET HI RISK GLUCOSE 87242 [facility] 4 Y Y ANNABELLA [facility]LOOD [facility] XCPT REAGENT STRIP ESOPHAGOG 06903 [place] ASTRODUOD 4 MEDICAL AMANDA ENOSCOPY SERV TRANSORAL FOUNDATIO DIAGNOSTI C CUL BACT 45066 [facility] XCPT 4 DIAGNOSTI DIAGNOSTI URINE CS CS BLOOD/[place] [address] ADVANCED ADVANCED SURG 4 DERMATOLO DERMATOLO PATHOLOGY GY GY GROSS&SHANTHI ROSCOPIC EXAM BX SKIN 69736 ADVANCED ADVANCED SUBCUTANE 4 DERMATOLO DERMATOLO OUS&/MUCO GY GY US MEMBRANE 1 LESION BIOPSY 55488 ADVANCED ADVANCED SKIN 4 DERMATOLO DERMATOLO SUBQ&/MUC GY GY OUS MEMBRANE EA ADDL LESN COLLECTIO 21373 [facility] T[facility] N VENOUS 4 [facility] BLOOD INC INC VENIPUNCT URE COMPREHEN 96763 [facility] SIVE 4 [facility] METABOLIC INC INC PANEL BLOOD 86973 BRANDON BRANDON COUNT 4 [facility] COMPLETE INC INC AUTO&AUTO DIFRNTL WBC BLD GLU A4253 CRISTIN JORDANRELL TEST/REAG 4 HOME HOME T [facility] BLD EQUIPME EQUIPME GLU MON-50 US SOFT 09426 [facility] TISSUE 4 [facility] HEAD & INC INC NECK REAL TIME IMGE DOCM RADIOLOGI 77569 LEONA CORONEL C EXAM 4 MEDICAL AYLA CHEST 2 IMAGING VIEWS ASS FRONTAL&L ATERAL CULTURE 59557 BRANDON RABAGOON BACTERIAL 4 [facility] INC INC QUANTTATI VE COLONY COUNT URINE BLOOD 76721 [facility] COUNT 4 [facility] COMPLETE INC INC AUTO&AUTO DIFRNTL WBC CULTURE 62057 [facility] BACTERIAL 4 [facility] BLOOD INC INC AEROBIC W/ID ISOLATES COLLECTIO 66232 [facility] N VENOUS 4 [facility] BLOOD INC INC VENIPUNCT URE COMPREHEN 87733 [facility] SIVE 4 [facility] METABOLIC INC INC PANEL COLLECTIO 79879 [facility] N VENOUS 4 Y Y [facility]LO[facility] VENIPUNCT URE ANTIBODY 26866 [facility] 4 Y Y [facility] LEUKOCYTE ANTIBODIE S HEPATITIS 94379 [facility] A 4 Y Y [facility] HAAB IADNA 37353 [facility] HEPATITIS 4 Y Y C [facility] TR[facility] TION HEPATITIS 79302 [facility] C 4 [place] [address] [facility] HEPATITIS 4 Y Y B [facility] SURFACE ANTIGEN HEPATITIS 69526 [facility] CORE 4 Y Y [facility] HBCAB TOTAL HEPATITIS 53115 [facility] SURF 4 Y Y [facility] HBSAB FLUORESCE 83400 [facility] NT 4 Y Y NONNFCT [facility] AGT ANTB SCREEN EA ANTIBODY INFUSION J7030 [facility] NORMAL 4 Y Y [facility] SOLUTION 1000 CC COMPREHEN 17660 [place] [address] Y Y [facility] PANEL URNLS DIP 97079 [facility] 4 Y Y STICK/TAB [facility] LET RGNT AUTO W/O MICROSCOP Y INJECTION J2405 [facility] 4 Y [facility] H[facility] PER 1 MG LOCM Q9967 [facility] [phone] Y Y MG/ML [facility] IODINE CONCENTRA TION PER ML THER 23210 [facility] PROPH/DX 4 Y Y NJX IV [facility] PUSH SINGLE/1S T SBST/DRUG RINGERS J7120 [facility] LACTATE 4 Y Y INFUS[facility] UP TO 1000 CC BLOOD 02726 [facility] COUNT 4 Y [place] [address] [place] ABDOMEN & 4 MEDICAL OLIVIA PELVIS SERV W/[place] [address] BR[facility] T[facility] LIPASE 4 [facility] INC INC CULTURE 55542 [facility] BACTERIAL 4 [facility] INC INC QUANTTATI VE COLONY COUNT URINE CULTURE 54204 [facility] BCT 4 [facility] ISOL&PRSM INC INC PTV ID ISOLATE EA URINE COLLECTIO 82515 [facility] N VENOUS 4 [facility] BLOOD INC INC VENIPUNCT URE COMPREHEN 32772 [facility] SIVE 4 [facility] [address] [facility] T[facility] AMYLASE 4 [facility] INC INC BLOOD 00430 [facility] COUNT 4 [facility] COMPLETE INC INC AUTO&AUTO DIFRNTL WBC SUSCEPTIB 59851 [facility] T[facility] LTY STDY 4 [facility] ANTIMICRB INC INC IAL MICRO/AGA R DILUTJ URNLS DIP 05449 [facility] 4 [facility] STICK/TAB INC INC LET REAGENT AUTO MICROSCOP Y SCR G0145 [facility] CYTOPATH [facility] CERV/VAG SCR AUTO&MNL RSCR PHYS ECG 40489 BRANDON WELLS ROUTINE 4 [facility] W/LEAST P 12 LDS I&R ONLY RADIOLOGI 43343 [facility] CORONEL C EXAM 4 MEDICAL AYLA CHEST 2 IMAGING VIEWS ASS FRONTAL&[place] [address] BR[facility] TAY[facility]OR TROPONIN 4 [facility] QUANTITAT INC INC ANNABELLA NATRIURET 16331 [facility] T[facility] IC 4 [facility] PEPTIDE INC INC BLOOD 66186 [facility] COUNT 4 [facility] COMPLETE INC INC AUTO&AUTO DIFRNTL WBC ECG 74422 RBANDON WELLS ROUTINE 4 [facility] W/LEAST P 12 LDS I&R ONLY COLLECTIO 89591 [facility] T[facility]OR N VENOUS 4 [facility] BLOOD INC INC VENIPUNCT URE CREATINE 55228 BRANDON TAYLOR KINASE MB 4 [facility] FRACTION INC INC ONLY CREATINE 98087 [facility] KINASE 4 [facility] TOTAL INC INC ECG 86024 [facility] T[facility] ROUTINE 4 [facility] ECG INC INC W/LEAST 12 LDS TRCG ONLY W/O I&R BASIC 70275 BR[facility] TAY[facility]OR METABOLIC 4 [facility] PANEL INC INC CALCIUM TOTAL ALBUTEROL J7613 YOUR YOUR INHAL 4 PHARMACY PHARMACY NON-CP [employer] PROD THRU DME U DOSE 1 MG ADMN SET A7005 YOUR YOUR W/SM VOL 4 PHARMACY PHARMACY NONFILTR [facility] NEBULIZR NON-DISPB L PHRM Q0513 YOUR YOUR DISPENSIN 4 PHARMACY PHARMACY G FEE [employer] INHALATIO N RX; PER 30 DAYS BLD GLU A4253 CRISTIN AMARAL TEST/REAG 4 HOME HOME T [facility] BLD EQUIPME EQUIPME GLU MON-50 LANCETS A4259 CRISTIN AMARAL PER BOX 4 HOME HOME OF 100 MEDICAL MEDICAL EQUIPME EQUIPME E-STIM G0283 BRANDON TAYLOR 1/> AREAS 4 [facility] OTH THAN INC INC WND CARE PART TX PLAN APPLICATI 38655 [facility] ON 4 [facility] MODALITY INC INC 1/> AREAS HOT/COLD PACKS APPLICATI 25418 [facility] ON 4 [facility] MODALITY INC INC 1/> AREAS HOT/COLD PACKS APPL 31935 [facility] T[facility] MODALITY 4 [facility] 1/> AREAS INC INC 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 L E-STIM G0283 [facility]OR 1/> AREAS 4 [facility] OTH THAN INC INC WND CARE PART TX PLAN E-STIM G0283 [facility] 1/> AREAS 4 [facility] OTH THAN INC INC WND CARE PART TX PLAN APPL 19248 [facility] T[facility] MODALITY 4 [facility] 1/> AREAS INC INC 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 L APPLICATI 37470 [facility] T[facility] ON 4 [facility] MODALITY INC INC 1/> AREAS HOT/COLD PACKS COLLECTIO 30675 [facility] T[facility] N VENOUS 4 [facility] BLOOD INC INC VENIPUNCT URE COMPREHEN 52990 [facility] SIVE 4 [facility] METABOLIC INC INC PANEL LIPID 56171 [facility] PANEL 4 [facility] INC INC TENS E0730 EMPI INC EMPI INC DEVICE 4 4/MORE LEADS MULTI NERVE STIMULATI ON APPLICATI 84227 [facility] T[facility] ON 4 [facility] MODALITY INC INC 1/> AREAS HOT/COLD PACKS APPL 96224 [facility] T[facility] MODALITY 4 [facility] 1/> AREAS INC INC 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 L E-STIM G0283 BRAND[facility] TAYOLR 1/> AREAS 4 [facility] OTH THAN INC INC WND CARE PART TX PLAN APPL 69787 BR[facility] T[facility] MODALITY 4 [facility] 1/> AREAS INC INC ELEC STIMJ EA 15 MIN E-STIM G0283 BR[facility] 1/> AREAS 4 [facility] OTH THAN INC INC WND CARE PART TX PLAN APPL 68363 BR[facility]ON T[facility] MODALITY 4 [facility] 1/> AREAS INC INC 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 L APPLICATI 11526 [facility] T[facility]OR ON 4 [facility] MODALITY INC INC 1/> AREAS HOT/COLD PACKS BLD GLU A4253 CRISTIN JORDANRELL TEST/REAG 4 HOME HOME T [facility] BLD EQUIPME EQUIPME GLU MON-50 LANCETS A4259 CRISTIN AMARAL PER BOX 4 HOME HOME OF 100 MEDICAL MEDICAL EQUIPME EQUIPME URNLS DIP 59479 BRANDON MIRANDA 4 [facility] LET RGNT P NON-AUTO W/O MICRSCP APPLICATI 85567 BR[facility] TAYLOR ON 4 [facility] MODALITY INC INC 1/> AREAS HOT/COLD PACKS E-STIM G0283 [facility] TAY[facility]OR 1/> AREAS 4 [facility] OTH THAN INC INC WND CARE PART TX PLAN ECG 43310 BRANDON WELLS ROUTINE 4 [facility] W/LEAST P 12 LDS I&R ONLY RADIOLOGI 75423 [facility] C EXAM 4 MEDICAL AYLA CHEST 2 IMAGING VIEWS ASS FRONTAL&L ATERAL RADIOLOGI 91295 [facility] C EXAM 4 MEDICAL AYLA CHEST 2 IMAGING VIEWS ASS FRONTAL&L ATERAL ECG 89961 BRANDON CHOWDHURY JR ROUTINE 4 [facility] W/LEAST P 12 LDS I&R ONLY E-STIM G0283 [facility] TAYLOR 1/> AREAS 4 [facility] OTH THAN INC INC WND CARE PART TX PLAN APPL 66545 [facility] T[facility] MODALITY 4 [facility] 1/> AREAS INC INC ULTRASOUN D EA 15 MIN APPL 33605 [facility] T[facility] MODALITY 4 [facility] 1/> AREAS INC INC 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 L APPLICATI 87445 [facility] ON 4 [facility] MODALITY INC INC 1/> AREAS HOT/COLD PACKS NEEDLE 69328 PROTESTANT GARO EMG EA [facility]PAR[facility] MITCH NL AREA COMPLETE APPL 91798 BRANDON TAYLOR MODALITY 4 [facility] 1/> AREAS INC INC ULTRASOUN D EA 15 MIN APPL 25366 BR[facility] TAY[facility]OR MODALITY 4 [facility] 1/> AREAS INC INC 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 L NERVE 79165 AMA MILLERIO 4 NEUROLOGY [facility] 5-6 MITCH STUDIES MRI 13633 LEONA CORONEL SPINAL 4 MEDICAL AYLA CANAL IMAGING LUMBAR ASS W/O CONTRAST MATERIAL 3D 47691 LEONA CORONEL RENDERING 4 MEDICAL AYLA IMAGING W/INTERP& ASS POSTPROC DIFF WORK STATION 3D 95461 BR[facility] T[facility] RENDERING 4 [facility] W/INTERP INC INC & POSTPROCE SS SUPERVISI ON APPL 15657 [facility] TAY[facility]OR MODALITY 4 [facility] 1/> AREAS INC INC ULTRASOUN D EA 15 MIN APPL 04568 [facility] T[facility] MODALITY 4 [facility] 1/> AREAS INC INC 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 L APPLICATI 51736 [facility] T[facility]OR ON 4 [facility] MODALITY INC INC 1/> AREAS HOT/COLD PACKS E-STIM G0283 [facility] TAY[facility]OR 1/> AREAS 4 [facility] OTH THAN INC INC WND CARE PART TX PLAN E-STIM G0283 [facility] 1/> AREAS 4 [facility] OTH THAN INC INC WND CARE PART TX PLAN PHYSICAL 00726 [facility] T[facility] THERAPY 4 [facility] EVALUATIO INC INC N APPLICATI 49566 BR[facility] T[facility]LOR ON 4 [facility] MODALITY INC INC 1/> AREAS HOT/COLD PACKS APPL 54800 BR[facility] TAY[facility] MODALITY 4 [facility] 1/> AREAS INC INC ULTRASOUN D EA 15 MIN APPL 88088 [facility] T[facility] MODALITY 4 [facility] 1/> AREAS INC INC 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 L APPL 95911 [facility] MODALITY 4 [facility] 1/> AREAS INC INC ULTRASOUN D EA 15 MIN E-STIM G0283 [facility] 1/> AREAS 4 [facility] OTH THAN INC INC WND CARE PART TX PLAN APPLICATI 38722 BR[facility] T[facility] ON 4 [facility] MODALITY INC INC 1/> AREAS HOT/COLD PACKS APPLICATI 53248 BRANDON TALYOR ON 4 [facility] MODALITY INC INC 1/> AREAS HOT/COLD PACKS E-STIM G0283 [facility] TAY[facility]OR 1/> AREAS 4 [facility] OTH THAN INC INC WND CARE PART TX PLAN APPL 46427 RBANDON TAYLOR MODALITY 4 [facility] 1/> AREAS INC INC ULTRASOUN D EA 15 MIN APPL 92565 BR[facility] TAYLOR MODALITY 4 [facility] 1/> AREAS INC INC 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 L APPL 08194 [facility] T[facility] MODALITY 4 [facility] 1/> AREAS INC INC 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 L BLD GLU A4253 CRISTIN AMARAL TEST/REAG 4 HOME HOME T [facility] BLD EQUIPME EQUIPME GLU MON-50 LANCETS A4259 CRISTIN JORDANRELL PER BOX 4 HOME HOME OF 100 MEDICAL MEDICAL EQUIPME EQUIPME APPL 29686 [facility] TAY[facility]OR MODALITY 4 [facility] 1/> AREAS INC INC ULTRASOUN D EA 15 MIN E-STIM G0283 [facility] 1/> AREAS 4 [facility] OTH THAN INC INC WND CARE PART TX PLAN APPLICATI 22051 BR[facility] TAYLOR ON 4 [facility] MODALITY INC INC 1/> AREAS HOT/COLD PACKS APPLICATI 10412 BR[facility] T[facility]LOR ON 4 [facility] MODALITY INC INC 1/> AREAS HOT/COLD PACKS E-STIM G0283 [facility] T[facility]OR 1/> AREAS 4 [facility] OTH THAN INC INC WND CARE PART TX PLAN APPL 73553 [facility] T[facility] MODALITY 4 [facility] 1/> AREAS INC INC ULTRASOUN D EA 15 MIN APPL 26882 BR[facility] T[facility] MODALITY 4 [facility] 1/> AREAS INC INC 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 L APPL 01003 BR[facility] TAY[facility]OR MODALITY 4 [facility] 1/> AREAS INC INC 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 L APPL 84182 BRANDON BRANDON MODALITY 4 [facility] 1/> AREAS INC INC ULTRASOUN D EA 15 MIN E-STIM G0283 [facility] 1/> AREAS 4 [facility] OTH THAN INC INC WND CARE PART TX PLAN APPLICATI 64079 [facility] T[facility] ON 4 [facility] MODALITY INC INC 1/> AREAS HOT/COLD PACKS E-STIM G0283 [facility]OR 1/> AREAS 4 [facility] OTH THAN INC INC WND CARE PART TX PLAN APPL 82869 [facility] T[facility] MODALITY 4 [facility] 1/> AREAS INC INC ULTRASOUN D EA 15 MIN APPLICATI 46379 BR[facility] T[facility]OR ON 4 [facility] MODALITY INC INC 1/> AREAS HOT/COLD PACKS APPL 58049 BRANDON BRANDON MODALITY 4 [facility] 1/> AREAS INC INC 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 L ANES 18441 [facility] TRANSURET 3 ANESTH HRAL OF THE W/[place] [address] BR[facility] TAYL[facility] INFUSION 3 [facility] THERAPY/P INC INC ROPHYLAXI S /DX 1ST TO 1 HR GLUC BLD 96992 [facility] GLUC MNTR 3 [facility] DEV INC INC CLEARED FDA SPEC HOME USE THERAPEUT 41822 [facility] IC 3 [facility] INJECTION INC INC IV PUSH EACH NEW DRUG INJECTION J2405 [facility] 3 [facility] ONDANSETR INC INC [place] HCL PER 1 [place] [address] [facility] INFUSION 3 [facility] THERAPY INC INC PROPHYLAX IS/DX EA HOUR CYSTO 85355 BRANDON MIRANDA CALIBRATI 3 [facility] ON DILAT [place] [employer] SSD URTL P STRIX/CATRACHITO NOSIS URNLS DIP 85622 BRANDON MIRANDA 3 [facility] LET RGNT P NON-AUTO W/O MICRSCP PROF SVCS 90030 MARNI MRANI ALLG 3 LUIS ALFREDO LUIS ALFREDO IMMNTX X W/PRV ALLGIC XTRCS NJXS PROF SVCS 95832 MARNI MARNI ALLG 3 LUIS ALFREDO LOBATO IMMNTX X W/PRV ALLGIC XTRCS NJXS SMR PRIM 12696 [facility] SRC 3 [facility] GRAM/GIEM INC INC SA STAIN BCT FUNGI/VERÓNICA L SUSCEPTIB 36446 [facility] TAY[facility] LTY STDY 3 [facility] ANTIMICRB INC INC IAL MICRO/AGA R DILUTJ MYOCARDIA 30755 [facility] L SPECT 3 [facility] MULTIPLE INC INC STUDIES INJECTION J2785 [facility] 3 [facility] REGADENOS INC INC ON 0.1 MG CUL BACT 09122 BR[facility] TAY[facility] STOOL 3 [facility] AEROBIC INC INC ISOL SALMONELL A&SHIGELL TECHNETIU A9500 BRANDON Wayne TC-99M 3 [facility] SESTAMIBI INC INC DX PER STUDY DOSE CV STRS 39833 [facility] TST 3 [facility] XERS&/OR INC [place] [address] [facility] T[facility] LIPASE 3 [facility] INC INC BLOOD 66711 BR[facility] TAYLOR COUNT 3 [facility] COMPLETE INC INC AUTO&AUTO DIFRNTL WBC COLLECTIO 45861 BRANDON Bhatti VENOUS 3 [facility] BLOOD INC INC VENIPUNCT URE COMPREHEN 01323 [facility] SIVE 3 [facility] [place] [address] BR[facility] TAYLOR AMYLASE 3 [facility] INC INC ALBUTEROL J7613 YOUR YOUR INHAL 3 PHARMACY PHARMACY NON-CP [employer] PROD THRU DME U DOSE 1 MG PHRM Q0513 YOUR YOUR DISPENSIN 3 PHARMACY PHARMACY G FEE [employer] INHALATIO N RX; PER 30 DAYS CULTURE 23880 [facility] BACTERIAL 3 [facility] INC INC QUANTTATI VE COLONY COUNT URINE CULTURE 23130 [facility] T[facility] BCT 3 [facility] ISOL&PRSM INC INC PTV ID ISOLATE EA URINE INSJ 47920 BRANDON RUBEN NON-NDWEL 3 [facility] BLADDER P CATHETER URNLS DIP 73705 [facility] MIRANDA 3 [facility] LET RGNT P NON-AUTO W/O MICRSCP SUSCEPTIB 44616 [facility] LTY STDY 3 [facility] ANTIMICRB INC INC IAL MICRO/AGA R DILUTJ INJECTION J2405 [facility] ONDANSETR INC INC ON HCL PER 1 MG COMPREHEN 69686 [facility] SIVE 3 [facility] METABOLIC INC INC PANEL THERAPEUT 59536 [facility] IC 3 [facility] PROPHYLAC INC INC TIC/DX INJECTION SUBQ/IM BLOOD 93377 [facility] COUNT 3 [facility] COMPLETE INC INC AUTO&AUTO DIFRNTL WBC RADEX ABD 92109 [facility] COMPL 3 [facility] AQT ABD INC INC W/S/E/D VIEWS 1 VIEW CH 3D 44195 [facility] RENDERING 3 [facility] INC W/INTERP& [place] [address] [facility] LIPASE 3 [place] [address] [facility] ABDOMEN & 3 [facility] PELVIS INC INC W/O CONTRAST MATERIAL PROF [facility] 77888 MARNI MARNI ALLG 3 [facility] IMMNTX X W/PRV ALLGIC XTRCS NJXS SPMTRY 43498 MARNI MARNI W/VC 3 [facility] EXPIRATOR Y LULU W/WO MXML VOL VNTJ PROF SVCS 40051 MARNI MARNI ALLG 3 [facility] IMMNTX X W/PRV ALLGIC XTRCS NJXS CULTURE 37275 [facility] BACTERIAL 3 [facility] INC INC QUANTTATI VE COLONY COUNT URINE PROF SVCS 88884 MARNI MARNI ALLG 3 LUIS ALFREDO LUIS ALFREDO IMMNTX X W/PRV ALLGIC XTRCS NJXS PROF SVCS 70788 MARNI MARNI ALLG 3 [facility] AL[facility] LUIS ALFREDO IMMNTX X W/PRV ALLGIC XTRCS NJXS COLLECTIO 43746 [facility] N VENOUS 3 [facility] BLOOD INC INC VENIPUNCT URE CULTURE 38244 COMBINED COMBINED BACTERIAL 3 PHYSICIAN PHYSICIAN S [place] [facility] [place] QUANTTATI VE COLONY COUNT URINE BLOOD 00588 [facility] COUNT 3 [facility] COMPLETE INC INC AUTO&[place] [address] [facility] INFUSION 3 [facility] THERAPY INC INC PROPHYLAX IS/DX EA HOUR POSTERIOR V2632 [facility] CHAMBER 3 [facility] [place] [address] [facility] INFUSION 3 [facility] THERAPY/P INC INC ROPHYLAXI S /DX 1ST TO 1 HR GLUC BLD 86739 [facility] GLUC MNTR 3 [facility] DEV INC INC CLEARED FDA SPEC HOME USE CATARACT 66777 [facility] REMOVAL 3 [place] [address] MARNI MARNI ALLG 3 LUIS ALFREDO LUIS ALFREDO IMMNTX X W/PRV ALLGIC XTRCS NJXS COLLECTIO 87332 [facility] N VENOUS 3 [facility] BLOOD INC INC VENIPUNCT URE COMPREHEN 97090 [facility] SIVE 3 [facility] METABOLIC INC INC PANEL BLOOD 77790 [facility] COUNT 3 [facility] COMPLETE INC INC AUTO&AUTO DIFRNTL WBC CULTURE 25919 [facility] BACTERIAL 3 [facility] INC INC QUANTTATI VE COLONY COUNT URINE PROF SVCS 72565 MARNI MARNI ALLG 3 [facility]IS ALFR[facility]O LUIS ALFREDO IMMNTX X W/PRV ALLGIC XTRCS NJXS PROF SVCS 02092 MARNI MARNI ALLG 3 [facility] LUIS ALFREDO IMMNTX X W/PRV ALLGIC XTRCS NJXS SPMTRY 16206 MARNI MARNI W/VC 3 [facility] LU[facility] ALFR[facility]O EXPIRATOR Y LULU W/WO MXML VOL VNTJ OPH BMTRY 62754 [facility] GUILLENROB US 3 [facility] IO LENS PWR CHETAN GLUC BLD 73213 [facility] GLUC MNTR 3 [facility] DEV INC [place] [address] [facility] INFUSION 3 [facility] THERAPY/P INC INC ROPHYLAXI S /DX 1ST TO 1 HR CATARACT 93922 [facility] REMOVAL 3 [facility] INSERTION INC INC OF LENS POSTERIOR V2632 [facility] CHAMBER 3 [facility] [place] [address] [facility] INFUSION 3 [facility] THERAPY INC INC PROPHYLAX IS/DX EA HOUR SUSCEPTIB 57855 [facility] LTY STDY 3 [facility] ANTIMICRB INC INC IAL MICRO/AGA R DILUTJ CULTURE 20148 [facility] BACTERIAL 3 [facility] INC INC QUANTTATI VE COLONY COUNT URINE CULTURE 32830 [facility] BCT 3 [facility] ISOL&PRSM INC INC PTV ID ISOLATE EA URINE URNLS DIP [address] [facility] 3 [facility] STICK/TAB INTERNAL LET RGNT MED NON-AUTO W/O MICRSCP PHRM Q0513 YOUR YOUR DISPENSIN [address] [facility] [facility] INHALATIO N RX; PER 30 DAYS ALBUTEROL J7613 YOUR YOUR INHAL 3 PHARMACY PHARMACY NON-CP [facility] PROD THRU DME U DOSE 1 MG ADMN SET A7005 YOUR YOUR W/SM VOL [address] [facility] NEBULIZR NON-DISPB L INJECTION J1040 MARNI MARNI 3 LUIS ALFREDO LUIS ALFREDO METHYLPRE DNISOLONE ACETATE 80 MG COLLECTIO 42751 [facility] N VENOUS 3 [facility] BLOOD INC INC VENIPUNCT URE ANTIBODY 73549 [facility] BACTERIUM 3 [facility] NOT INC INC ELSEWHERE SPECIFIED C-REACTIV 19813 [facility] E PROTEIN 3 [place] [address] [facility] THYROID 3 [facility] STIMULATI [place] [address] [facility] GAMMAGLOB 3 [facility] ULIN IGE INC INC BRNCDILAT 55293 MARNI MARNI RSPSE 3 LUIS ALFREDO LOBATO SPMTRY PRE&POST- BRNCDILAT ADMN PRESSURIZ 71992 MARNI MARNI ED/NONPRE 3 LUIS AL[facility]O LOBATO SSURIZED INHALATIO N TREATMENT INJECTION J2010 MARNI MARNI 3 LUIS ALFREDO LOBATO LINCOMYCI N HCL UP TO 300 MG GAMMAGLOB 14069 [facility] ULIN 3 [facility] IMMUNOGLO [place] [address] [facility] THYROXINE 3 [facility] TOTAL INC INC BLOOD 83353 [facility] COUNT 3 [facility] COMPLETE INC INC AUTO&AUTO DIFRNTL WBC RADIOLOGI 16420 [facility] C EXAM 3 [facility] CHEST 2 INC INC VIEWS FRONTAL&[place] [address] [facility] GAMMAGLOB 3 [facility] ULIN IGA INC INC IGD IGG IGM EACH COMPLEMEN 11852 [facility] T TOTAL 3 [facility] HEMOLYTIC INC INC RHEUMATOI 99056 [facility] D FACTOR 3 [facility] QUANTITAT INC INC ANNABELLA ANTINUCLE 62080 [facility] AR [facility] ANTIBODIE INC INC S NADINE CYANOCOBA 45979 [facility] PRATEEK 3 [facility] VITAMIN INC INC B-12 DEMO&/POLLY 68768 MARNI GRIDER L OF PT 3 LUIS ALFREDO LOBATO UTILIZ AERSL GEN/NEB/I NHLR/IP 25 04657 [facility] HYDROXY 3 [facility] INCLUDES INC INC FRACTIONS IF PERFORMED SEDIMENTA 65156 [facility] TION RATE 3 [facility] RBC INC INC NON-AUTOM ATED THERAPEUT 54763 MARNI MARNI IC 3 LUIS ALFREDO LUIS ALFREDO PROPHYLAC TIC/DX INJECTION SUBQ/IM RADEX 01577 [facility] RIBS UNI 3 [facility] W/POSTERO INC INC ANT CH MINIMUM 3 VIEWS CULTURE 64421 COMBINED COMBINED BACTERIAL 3 PHYSICIAN PHYSICIAN S LA S LA QUANTTATI VE COLONY COUNT URINE PROF SVCS 34648 MARNI MARNI ALLG 3 LUIS ALFREDO LOBATO IMMNTX X W/PRV ALLGIC XTRCS NJXS URNLS DIP 17874 [facility] 3 VALLEY CECE STICK/TAB INTERNAL LET RGNT MEDI NON-AUTO W/O MICRSCP OPH BMTRY 37346 [facility] A-SCAN IO LENS PWR [place] OPHTH 06672 [facility] 3 [facility] XM&EVAL IN[facility] COMPRE NEW PT 1/> VST BLOOD 18561 [facility] COUNT 3 [facility] COMPLETE INC INC AUTO&AUTO DIFRNTL WBC COLLECTIO 49623 [facility] N VENOUS 3 [facility] BLOOD INC INC VENIPUNCT URE COLLECTIO 55086 [facility] N VENOUS 3 [facility] BLOOD INC INC VENIPUNCT URE COMPREHEN 83933 [facility] SIVE 3 [facility] METABOLIC INC INC PANEL URNLS DIP 99503 [facility] 3 VALLEY JR PETR STICK/TAB INTERNAL LET RGNT MED NON-AUTO W/O MICRSCP RADIOLOGI 40667 [facility] C EXAM 3 [facility] CHEST 2 INC INC VIEWS FRONTAL&L ATERAL BLOOD 48242 [facility] COUNT 3 [facility] COMPLETE INC INC AUTO&AUTO DIFRNTL WBC PROF SVCS 32984 MARNI MARNI ALLG 3 LUIS ALFREDO LUIS ALFREDO IMMNTX X W/PRV ALLGIC XTRCS NJXS PROF SVCS 87420 MARNI MARNI ALLG 3 LUIS ALFREDO LUIS ALFREDO IMMNTX X W/PRV ALLGIC XTRCS NJXS BLD GLU A4253 M E D M E D TEST/REAG 3 SUPPLIES SUPPLIES T STRIPS HOME BLD GLU MON-50 LANCETS A4259 M E D M E D PER BOX 3 SUPPLIES SUPPLIES OF 100 PREPJ& 32538 MARNI MARNI ALLERGEN 3 LUIS ALFREDO LUIS ALFREDO IMMUNOTHE RAPY 1/OIL DIPPER ANTIGEN PROF [facility] 94736 MARNI MARNI ALLG 3 LUIS ALFREDO LUIS ALFREDO IMMNTX X W/PRV ALLGIC XTRCS NJXS PROF [facility] 09377 MARNI MARNI ALLG 3 LUIS ALFREDO LUIS ALFREDO IMMNTX X W/PRV ALLGIC XTRCS NJXS COLLECTIO 97481 [facility] N VENOUS 3 [facility] BLOOD INC INC VENIPUNCT URE COMPREHEN 92644 [facility] SIVE 3 [facility] METABOLIC INC INC PANEL BLOOD 73571 [facility] COUNT 3 [facility] COMPLETE INC INC AUTO&AUTO DIFRNTL WBC SUSCEPTIB 98806 [facility] LTY STDY 3 [facility] ANTIMICRB INC INC IAL MICRO/AGA R DILUTJ URNLS DIP 30808 [facility] STICK/TAB INC INC LET REAGENT AUTO MICROSCOP Y CULTURE 96009 [facility] BACTERIAL 3 [facility] INC INC QUANTTATI VE COLONY COUNT URINE CULTURE 74913 [facility] BCT 3 [facility] ISOL&PRSM INC INC PTV ID ISOLATE EA URINE DXA BONE 66121 [facility] DENSITY 3 MEDICAL AYLA STUDY 1/> IMAGING SITES ASS AXIAL SKEL CANE INCL E0100 C[facility] CRISTIN CANES 3 HOME HOME ALL MEDICAL MEDICAL MATERIAL EQUIPME EQUIPME ADJUSTBLE /FIX W/TIP RADIOLOGI 87272 [facility] C EXAM 3 MEDICAL AYLA CHEST 2 IMAGING VIEWS ASS FRONTAL&L ATERAL RADIOLOGI 80225 [facility] C EXAM 3 MEDICAL AYLA KNEE IMAGING COMPLETE ASS 4/MORE VIEWS PROF [facility] 33448 MARNI MARNI ALLG 3 LUIS ALFREDO LUIS ALFREDO IMMNTX X W/PRV ALLGIC XTRCS NJXS PROF [facility] 77288 MARNI MARNI ALLG 3 LUIS ALFREDO LUIS ALFREDO IMMNTX X W/PRV ALLGIC XTRCS NJXS URNLS DIP 12272 [facility] 3 VALLEY CECE STICK/TAB INTERNAL LET RGNT MEDI NON-AUTO W/O MICRSCP CULTURE 78462 COMBINED COMBINED BACTERIAL 3 PHYSICIAN PHYSICIAN S LA S LA QUANTTATI VE COLONY COUNT URINE PROF [facility] 76025 MARNI MARNI ALLG 3 LUIS ALFREDO LUIS ALFREDO IMMNTX X W/PRV ALLGIC XTRCS NJXS COLLECTIO 99699 [facility] N VENOUS 3 [facility] [place] [address] [facility] BLOOD/URI 3 [facility] C ACID INC INC PROF [facility] 09023 MARNI MARNI ALLG 3 LUIS ALFREDO LUIS ALFREDO IMMNTX X W/PRV ALLGIC XTRCS NJXS PROF [facility] 54455 MARNI MARNI ALLG 3 LUIS ALFREDO LUIS ALFREDO IMMNTX X W/PRV ALLGIC XTRCS NJXS PROF [facility] 24887 MARNI MARNI ALLG 3 LUIS ALFREDO LUIS ALFREDO IMMNTX X W/PRV ALLGIC XTRCS NJXS PROF [facility] 94046 MARNI MARNI ALLG 3 LUIS ALFREDO LUIS ALFREDO IMMNTX X W/PRV ALLGIC XTRCS NJXS PROF [facility] 08538 MARNI MARNI ALLG 3 LUIS ALFREDO LUIS ALFREDO IMMNTX X W/PRV ALLGIC XTRCS NJXS PERCUTANE 55665 MARNI MARNI OUS TESTS 3 LUIS ALFREDO LUIS ALFREDO W/ALLERGE ALVARADO EXTRACTS SPMTRY 21521 MARNI MARNI W/VC 3 LUIS ALFREDO LUIS [...] SUPPLIES SUPPLIES HIGH CALIBRATO R SOLUTION/ CHIPS [place]-PO A4258 M E D M E D [...] PHARMACY PREP&SPL SHOE MX DNSITY INSRT SPMTRY 30314 MARNI MARNI W/VC 3 LUIS ALFREDO LUIS ALFREDO EXPIRATOR Y LULU W/WO MXML VOL VNTJ CYSTOURET 03299 [facility] JR HROSCOPY 3 [facility] P SCREENING G0202 [facility] 3 MEDICAL AYLA MAMMOGRAP IMAGING HY DURGA ASS INCL CAD WHEN PERFORMD LOC Q9965 [facility] 100-199 [facility] MG/ML INC INC IODINE CONCENTRA TION PER ML NJX 40301 [facility] RETROGRAD 3 MEDICAL AYLA E IMAGING URETHROCS ASS TOGRAPY URETHROCY 90888 [facility] STOGRAPHY 3 [facility] [place] [address] [facility] TRANSVAGI 3 [facility] NAL INC INC [facility] 67147 [place] [facility] AIDED 3 MEDICAL AYLA DETECTION IMAGING ASS SCREENING MAMMOGRAP HY CULTURE 58812 COMBINED COMBINED BACTERIAL 3 PHYSICIAN PHYSICIAN S LA S LA QUANTTATI VE COLONY COUNT URINE INJECTION J0696 [facility] 3 VALLEY CECE CEFTRIAXO INTERNAL NE SODIUM MEDI PER 250 MG URNLS DIP 96786 [facility] 3 VALLEY VALLEY STICK/TAB INTERNAL INTERNAL LET RGNT MEDI MEDI NON-AUTO W/O MICRSCP IM ADM 19359 [facility] PRQ ID 3 VALLEY CECE SUBQ/IM INTERNAL NJXS 1 [facility] 78374 [facility] DISCHARGE 3 [facility] [employer] DAY INTERNAL MANAGEMEN MED T 30 MIN/< SBSQ [address] CARE/DAY INTERNAL 25 MED MINUTES SBSQ [address] CARE/DAY INTERNAL 25 MED MINUTES SBSQ [address] CARE/DAY INTERNAL 25 MED MINUTES 10295 [facility] RETROPERI 3 MEDICAL AYLA TONEAL IMAGING REAL TIME ASS W/IMAGE COMPLETE FULL FACE A7030 [facility] MASK 3 MEDICAL MEDICAL USED SUPPLY SUPPLY W/POS INC. INC. [employer] DEVICE EA SBSQ [address] CARE/DAY INTERNAL 25 MED MINUTES INITIAL [address] CARE/DAY INTERNAL 50 MED MINUTES SCREEN Q0091 [facility] PAP 3 [facility] SME[facility]; CLINIC OF OBTAIN SONIA PREP &C ONVEY TO LAB URNLS DIP 58790 [facility] STICK/TAB CLINIC OF LET RGNT SONIA NON-AUTO W/O MICRSCP CULTURE 30458 COMBINED COMBINED BACTERIAL 3 PHYSICIAN PHYSICIAN S LA S LA QUANTTATI VE COLONY COUNT URINE CERV/VAGI G0101 [facility] NAL 3 [facility] OF SCR; SONIA PELV&CLIN BREAST EXAM SCR G0145 PATHOLOGY PATHOLOGY CYTOPATH 3 & & CERV/VAG CYTOLOGY CYTOLOGY SCR LAB LAB AUTO&MNL RSCR PHYS CULTURE 98752 COMBINED COMBINED BACTERIAL 3 PHYSICIAN PHYSICIAN S LA S LA QUANTTATI VE COLONY COUNT URINE URNLS DIP [address] CECE STICK/TAB INTERNAL LET RGNT MEDI NON-AUTO W/O MICRSCP CULTURE 57189 [facility] BACTERIAL 3 [facility] INC INC QUANTTATI VE COLONY COUNT URINE CULTURE 54826 [facility] BCT 3 [facility] ISOL&PRSM INC INC PTV ID ISOLATE EA URINE COLLECTIO 21688 [facility] N VENOUS 3 [facility] BLOOD INC INC VENIPUNCT URE COMPREHEN 82951 [facility] SIVE 3 [facility] [address] [facility] THYROID 3 [facility] STIMULATI INC INC NG HORMONE TSH ALBUMIN 37464 [facility] URINE 3 [facility] MICROALBU INC INC MIN QUANTIATI VE LIPID 01823 [facility] PANEL 3 [facility] INC INC HEMOGLOBI 06232 [facility] N 3 [facility] GLYCOSYLA INC INC ML A1C BLOOD 44076 [facility] COUNT 3 [facility] COMPLETE INC INC AUTO&AUTO DIFRNTL WBC SUSCEPTIB 08897 [facility] LTY STDY 3 [facility] ANTIMICRB INC INC IAL MICRO/AGA R DILUTJ INITIAL 84711 [facility] INPATIENT 3 PSC CONSULT NEW/ESTAB PT 80 MIN SBSQ 25572 [facility] 3 PSC CARE/DAY 35 MINUTES SBSQ [address] [facility] 3 CARE, CARE/DAY PLLC 25 MINUTES SBSQ [address] [facility] 3 CARE, CARE/DAY PLLC 35 MINUTES NEBULIZER E0570 CRISTIN AMARAL WITH 3 HOME HOME [facility] MEDICAL MEDICAL R EQUIPME EQUIPME SBSQ [address] [facility] 3 CARE, CARE/DAY PLLC 25 MINUTES SBSQ [address] [facility] 3 CARE, CARE/DAY PLLC 35 MINUTES INITIAL [address] [facility] 3 CARE, CARE/DAY PLLC 50 MINUTES BLD GLU A4253 M E D M E D TEST/REAG 2 SUPPLIES SUPPLIES T STRIPS HOME BLD GLU SUN- LANCETS A4259 M E D M E D PER BOX 2 SUPPLIES SUPPLIES [place] 100 [place] [address] [facility] INFUSION 2 [facility] THERAPY INC INC PROPHYLAX IS/DX EA HOUR BASIC 24276 [facility] METABOLIC 2 [facility] PANEL INC INC CALCIUM TOTAL CULTURE 49106 [facility] BACTERIAL 2 [facility] INC INC QUANTTATI VE COLONY COUNT URINE CULTURE 45337 [facility] BCT 2 [facility] ISOL&PRSM INC INC PTV ID ISOLATE EA URINE INJECTION J2405 [facility] 2 [facility] ONDANSETR INC INC [place] HCL PER 1 [place] [address] [facility] INFUSION 2 [facility] THERAPY/P INC INC ROPHYLAXI S /DX 1ST TO 1 HR BLOOD 14358 [facility] COUNT 2 [facility] COMPLETE INC INC AUTO&AUTO DIFRNTL WBC SUSCEPTIB 67762 [facility] LTY STDY 2 [facility] ANTIMICRB INC INC IAL MICRO/AGA R DILUTJ URNLS DIP 84074 [facility] 2 [facility] STICK/TAB INC INC LET REAGENT AUTO MICROSCOP Y RADIOLOGI 41636 [facility] C EXAM 2 [facility] CHEST 2 INC INC VIEWS FRONTAL&L ATERAL THERAPEUT 43128 [facility] IC 2 [facility] INJECTION INC INC IV PUSH EACH NEW DRUG HEADGEAR A7035 [facility] USED 2 MEDICAL MEDICAL W/POSITIV SUPPLY SUPPLY E [employer] INC. INC. PRESSURE DEVICE NASL A7034 [facility] G[facility] INTRFCE 2 MEDICAL MEDICAL POS ARWAY SUPPLY SUPPLY PRSS INC. INC. DEVC W/WO HEAD STRAP RADEX 19605 [facility] HUMERUS 2 MEDICAL AYLA MINIMUM 2 IMAGING VIEWS ASS RADEX 77985 [facility] FINGR 2 MEDICAL AYLA MINIMUM 2 IMAGING VIEWS ASS RADIOLOGI 53931 [facility] C 2 MEDICAL AYLA EXAMINATI IMAGING ON KNEE ASS 1/2 VIEWS BLD GLU A4253 [place] [facility] TEST/REAG 2 [facility] T STRIPS PHARMACY PHARMACY HOME BLD LLC, D LLC, D GLU MON-50 NEBULIZER E0570 CRISTIN AMARAL WITH 2 HOME HOME [facility] MEDICAL MEDICAL R EQUIPME EQUIPME ANES 42003 [facility] LOWER 2 [place] [facility] INTESTINE ANESTHESI A ENDOSCOPY DISTAL DUODENUM COLONOSCO 15395 PROTESTANT PROTESTANT PY 2 PHYS SURG PHYS SURG W/BIOPSY CTR CTR SINGLE/MU LTIPLE EGD 06393 COLORECTA PALOMO TRANSORAL 2 L SURGIAL CATRACHITO BIOPSY SINGLE/MU ASSOCIATE LTIPLE ENDOSCOPY 59684 PROTESTANT PROTESTANT UPPER 2 PHYS SURG PHYS SURG SMALL CTR [place] [address] [facility] SURG 2 PROTESTANT PROTESTANT PATHOLOGY HOSP HOSP GROSS&SHANTHI ROSCOPIC EXAM RADEX 25265 [facility] SMALL 2 PROTESTANT PROTESTANT INTESTINE HOSP HOSP W/MULTIPL E SERIAL IMAGES SPECIAL 15678 [facility] STAIN 2 PROTESTANT PROTESTANT GROUP 1 HOSP HOSP MICROORGA NISMS I&R ECG 77287 [facility] ROUTINE 2 KAMAR DEIDRA ECG EMERGENCY W/LEAST PHYS 12 LDS I&R ONLY RADIOLOGI 35914 [facility] [place] GARCIA C 2 RADIOLOGY RAY EXAMINATI ON CHEST SINGLE VIEW FRONTAL NEBULIZER E0570 CRISTIN CRISTIN WITH 2 HOME HOME [facility] MEDICAL MEDICAL R EQUIPME EQUIPME BLD GLU A4253 [facility] TEST/REAG 2 CVS CVS T STRIPS PHARMACY PHARMACY HOME BLD LLC, D LLC, D GLU MON-50 CYANOCOBA 47358 [facility] PRATEEK 2 AMERIC AMERIC VITAMIN HOLDING HOLDING B-12 [place] [address] LAB [facility] LIPASE 2 [employer] HOLDING HOLDING ADMINISTR G0008 [facility] BAZZI ATION OF 2 HEALTHCAR TAR INFLUENZA E CENTER VIRUS VACCINE HEMOGLOBI 08376 [facility] YAN[facility] N 2 AMERIC AMERIC GLYCOSYLA HOLDING HOLDING ML A1C INFLUENZA Q2036 [facility] VACC 2 HEALTHCAR TAR SPLIT E CENTER VIRUS 3 YRS & > [place] [address] LAB [facility] FOLIC 2 AMERIC AMER[employer] [place] [address] LAB [facility] AMYLASE 2 [employer] HOLDING HOLDING ACUTE 05063 LAB [facility] HEPATITIS 2 AMERIC AMERIC PANEL HOLDING HOLDING NEBULIZER E0570 CRISTIN AMARAL WITH 2 HOME HOME [facility]PRESS[facility] MEDICAL MEDICAL R EQUIPME EQUIPME HOME E0607 [facility] BLOOD 2 CVS CVS GLUCOSE PHARMACY PHARMACY MONITOR LLC, D LLC, D LANCETS A4259 [facility] PER BOX 2 CVS CVS OF 100 PHARMACY PHARMACY LLC, D LLC, D COMPREHEN 08115 [facility] SIVE 2 AMERIC [employer] METABOL[place] [address] LAB [facility] THYROID 2 AMERIC AMERIC STIMULATI HOLDING HOLDING NG HORMONE TSH HEPATITIS 61938 LAB YANIR[facility] LAB YANIRA ANTIBODY 2 AMERIC [...] DIAGNOSTI EQUIPMENT C SE C SE RADEX 65413 [facility] SPINE 2 MOBILE MOBILE CERVICAL DIAGNOSTI DIAGNOSTI 2 OR 3 C SE C SE VIEWS TRANS R0070 [facility] PRTBL 2 MOBILE MOBILE X-RAY DIAGNOSTI DIAGNOSTI EQP&PERS C SE C SE OSCAR/NRS OSCAR-TRIP 1 PT SBSQ 22337 [facility] 2 PSC CARE/DAY 25 MINUTES SBSQ [address] [facility] 2 PSC CARE/DAY 25 MINUTES SBSQ [address] [facility] 2 CARE, CARE/DAY PLLC 25 MINUTES ECG 27387 STAnnita HANCOCK ROUTINE 2 FORTINO LEON ECG CARDIOLOG W/LEAST Y CLINIC 12 LDS I&[place] [address] [facility] [place] PETER HEAD/BRAI 2 RADIOLOGY JULIÁN N W/O CONTRAST MATERIAL SBSQ [address] [facility] 2 PSC CARE/DAY 25 MINUTES SBSQ [address] [facility] 2 PSC CARE/DAY 25 MINUTES NEBULIZER E0570 CRISTIN AMARAL WITH 2 HOME HOME [facility] MEDICAL MEDICAL R EQUIPME EQUIPME DUP-SCAN 36536 [facility] [place] BRIZUELA JAM XTR VEINS 2 RADIOLOGY UNILATERA L/LIMITED STUDY ECG 00084 [facility] ROUTINE 2 MOBILE MOBILE ECG DIAGNOSTI DIAGNOSTI W/LEAST C SE C SE 12 LDS TRCG ONLY W/O I&R RADIOLOGI 72448 [facility] C EXAM 2 MOBILE MOBILE CHEST 2 DIAGNOSTI DIAGNOSTI VIEWS C SE C SE FRONTAL&L ATERAL TRANS R0075 [facility] PRTBL 2 MOBILE MOBILE XRAY DIAGNOSTI DIAGNOSTI EQP&PERS C SE C SE OSCAR/NRS OSCAR-TRIP> 1 PT SET-UP Q0092 [facility] PORTABLE 2 MOBILE MOBILE X-RAY DIAGNOSTI DIAGNOSTI EQUIPMENT C SE C SE SBSQ [address] [facility] 2 PSC CARE/DAY 35 MINUTES COLLECTIO 43038 [facility] N VENOUS 2 [facility] BLOOD INC INC VENIPUNCT URE DNA 54520 [facility] ANTIBODY 2 [facility] NUNAPITCHUK/DO INC INC UBLE STRANDED DNA 41852 [facility] ANTIBODY 2 [facility] SINGLE INC INC STRANDED IM ADM 22038 [facility] PRQ ID 2 VALLEY CECE SUBQ/IM INTERNAL NJXS 1 MEDI VACCINE SEDIMENTA 17155 [facility] TION RATE 2 [facility] RBC INC INC NON-AUTOM ATED SKIN TEST 52812 [facility] 2 VALLEY CECE TUBERCULO INTERNAL SIS MEDI INTRADERM AL BASIC 51862 [facility] METABOLIC 2 [facility] PANEL INC INC CALCIUM TOTAL ANTINUCLE 02121 [facility] AR 2 [facility] ANTIBODIE INC INC S NADINE CARCINOEM 09002 [facility] BRYONIC 2 [facility] [place] [address] [facility] LIPASE 2 [facility] INC INC COLLECTIO 82317 [facility] N VENOUS 2 [facility] BLOOD INC INC VENIPUNCT URE BLOOD 13165 [facility] COUNT 2 [facility] COMPLETE INC INC AUTO&AUTO DIFRNTL WBC COMPREHEN 42184 [facility] SIVE 2 [facility] [place] [address] [facility] AMYLASE 2 [place] [address] [facility] THYROID 2 [facility] STIMULATI INC INC NG HORMONE TSH NEBULIZER E0570 CRISTIN AMARAL WITH 2 HOME HOME [facility] [place] [address] [facility] MAXILLOFA 2 Y Y [facility] W/CONTRAS T MATERIAL BASIC 43881 [facility] METABOLIC 2 Y Y PANEL [facility] CALCIUM TOTAL COLLECTIO 41748 [facility] N VENOUS 2 Y Y BLOOD [facility] VENIPUNCT URE INJECTION J2405 [facility] PER 1 MG LOCM Q9967 [facility] [phone] 2 Y Y MG/ML [facility] IODINE CONCENTRA TION PER ML BLOOD 75894 [facility] COUNT 2 Y Y COMPLETE [facility] AUTO&AUTO DIFRNTL WBC THERAPEUT 06096 [facility] IC 2 Y Y INJECTION [facility] IV PUSH EACH NEW DRUG INJECTION J2270 [facility] MORPHINE 2 Y Y [facility] [place] 10 [place] [address] [facility] INFUSION 2 Y Y THERAPY/P [facility] ROPHYLAXI S /DX 1ST TO 1 HR PREPJ& 38801 MARNI GRIDER ALLERGEN 2 [facility] LUIS ALFREDO IMMUNOTHE RAPY 1/OIL DIPPER ANTIGEN NEBULIZER [id number] CRISTIN AMARAL WITH 2 HOME HOME [facility] R EQUIPME EQUIPME PROF SVCS 32043 MARNI MARNI ALLG 2 LUIS ALFREDO LUIS ALFREDO IMMNTX X W/PRV ALLGIC XTRCS NJXS PROF [facility] 77308 MARNI MARNI ALLG 2 LUIS ALFREDO LUIS ALFREDO IMMNTX X W/PRV ALLGIC XTRCS NJXS PROF [facility] 34908 MARNI MARNI ALLG 2 LUIS ALFREDO LUIS [...] SUPPLIES HIGH CALIBRATO R SOLUTION/ CHIPS PROF [facility] 85776 MARNI MARNI ALLG 2 LUIS ALFREDO LUIS ALFREDO IMMNTX X W/PRV ALLGIC XTRCS NJXS PROF [facility] 39434 MARNI MARNI ALLG 2 LUIS ALFREDO LUIS ALFREDO IMMNTX X W/PRV ALLGIC XTRCS NJXS ECG 15343 MARLO FATIMA ROUTINE 2 EMERGENCY PETR ECG SERVICES W/LEAST 12 LDS I&[place] [address] [facility]OPONIN [facility] QUANTITAT INC INC ANNABELLA NATRIURET 58490 [facility] IC [facility] PEPTIDE INC INC BLOOD 67276 [facility] COUNT 2 [facility] COMPLETE INC INC AUTO&AUTO DIFRNTL WBC COMPREHEN 51383 [facility] SIVE 2 [facility] METABOLIC INC INC PANEL CREATINE 40585 [facility] KINASE MB 2 [facility] FRACTION INC INC ONLY ECG 76533 [facility] ROUTINE 2 [facility] ECG INC INC W/LEAST 12 LDS TRCG ONLY W/O I&R THER 10178 [facility] PROPH/DX 2 [facility] NJX IV INC INC PUSH SINGLE/1S T SBST/DRUG RADIOLOGI 14032 [facility] C 2 [facility] EXAMINATI INC INC ON CHEST SINGLE VIEW FRONTAL CREATINE 60558 [facility] KINASE 2 [facility] [place] [address] MARNI MARNI ALLG 2 LUIS ALFREDO LUIS ALFREDO IMMNTX X W/PRV ALLGIC XTRCS NJXS PROF [facility] 75914 MARNI MARNI ALLG 2 LUIS ALFREDO LUIS ALFREDO IMMNTX X W/PRV ALLGIC XTRCS NJXS THER 66729 [facility] PROPH/DX 2 [facility] NJX IV INC INC PUSH SINGLE/1S T SBST/DRUG COMPREHEN 93068 [facility] SIVE 2 [facility] METABOLIC INC INC PANEL INJECTION J2405 [facility] 2 [facility] ONDANSETR INC INC ON HCL PER 1 MG BLOOD 43899 [facility] COUNT 2 [facility] COMPLETE INC INC AUTO&AUTO DIFRNTL WBC SUSCEPTIB 52378 [facility] LTY STDY 2 [facility] ANTIMICRB INC INC IAL MICRO/AGA R DILUTJ URNLS DIP 47323 [facility]ING 2 [facility] HEARTS STICK/TAB INC LET REAGENT AUTO MICROSCOP Y THERAPEUT 44713 [facility] IC [facility] INJECTION INC [place] [address] SHELLIECAL [facility]OMER ABDOMEN & 2 MEDICAL [facility] PELVIS IMAGING W/O ASS CONTRAST MATERIAL CULTURE 70814 [facility] BACTERIAL [facility] INC INC QUANTTATI VE COLONY COUNT URINE CULTURE 92534 [facility] BCT 2 [facility] ISOL&PRSM INC INC PTV ID ISOLATE EA URINE 3D 34439 [facility] RENDERING 2 MEDICAL AYLA IMAGING W/INTERP& ASS POSTPROC DIFF WORK STATION PROF [facility] 84921 MARNI MARNI ALLG 2 LUIS ALFREDO LUIS ALFREDO IMMNTX X W/PRV ALLGIC XTRCS NJXS PROF [facility] 95560 MARNI MARNI ALLG 2 LUIS ALFREDO LUIS ALFREDO IMMNTX X W/PRV ALLGIC XTRCS NJXS NEBULIZER [id number] CRISTIN AMARAL WITH 2 HOME HOME [facility] R EQUIPME EQUIPME PROF [facility] 92529 MARNI MARNI ALLG 2 LUIS ALFREDO LUIS ALFREDO IMMNTX X W/PRV ALLGIC XTRCS NJXS PROF [facility] 60410 MARNI MARNI ALLG 2 LUIS ALFREDO LUIS ALFREDO IMMNTX X W/PRV ALLGIC XTRCS NJXS PROF [facility] 42353 MARNI MARNI ALLG 2 LUIS ALFREDO LUIS ALFREDO IMMNTX X W/PRV ALLGIC XTRCS NJXS PROF [facility] 55288 MARNI MARNI ALLG 2 LUIS ALFREDO LUIS ALFREDO IMMNTX X W/PRV ALLGIC XTRCS NJXS RADEX 14704 [facility] FOOT [facility] COMPLETE INC INC MINIMUM 3 VIEWS COMPREHEN 57363 [facility] SIVE 2 [facility] METABOLIC INC INC PANEL SEDIMENTA 01934 [facility] TIKATI RATE 2 [facility] RBC INC INC NON-AUTOM ATED BLOOD 82898 [facility] COUNT 2 [facility] COMPLETE INC INC AUTO&AUTO DIFRNTL WBC URNLS DIP 80306 [facility] 2 [facility] STICK/TAB INC INC [place] [address] [facility] BLOOD/URI 2 [facility] C ACID INC INC PROF [facility] 06369 MARNI MARNI ALLG 2 LUIS ALFREDO LUIS ALFREDO IMMNTX X W/PRV ALLGIC XTRCS NJXS PROF [facility] 14816 MARNI MARNI ALLG 2 LUIS ALFREDO LUIS ALFREDO IMMNTX X W/PRV ALLGIC XTRCS NJXS NEBULIZER E0570 CRISTIN AMARAL WITH 2 HOME HOME [facility]ICAL R EQUIPME EQUIPME PROF [facility] 10615 MARNI MARNI ALLG 2 LUIS ALFREDO LUIS ALFREDO IMMNTX X W/PRV ALLGIC XTRCS NJXS PROF [facility] 33405 MARNI MARNI ALLG 2 LUIS ALFREDO LUIS ALFREDO IMMNTX X W/PRV ALLGIC XTRCS NJXS PROF [facility] 88828 MARNI MARNI ALLG 2 LUIS ALFREDO LUIS ALFREDO IMMNTX X W/PRV ALLGIC XTRCS NJXS PROF [facility] 99014 MARNI MARNI ALLG 2 LUIS ALFREDO LUIS ALFREDO IMMNTX X W/PRV ALLGIC XTRCS NJXS PROF [facility] 78915 MARNI MARNI ALLG 2 LUIS ALFREDO LUIS ALFREDO IMMNTX X W/PRV ALLGIC XTRCS NJXS PREPJ& 17348 MARNI MARNI ALLERGEN 2 LUIS ALFREDO LUIS ALFREDO IMMUNOTHE RAPY 1/OIL DIPPER ANTIGEN CULTURE 49568 [facility] BACTERIAL [facility] INC INC QUANTTATI VE COLONY COUNT URINE CULTURE 26868 [facility] BCT 2 [facility] ISOL&PRSM INC INC PTV ID ISOLATE EA URINE PROF [facility] 16913 MARNI MARNI ALLG 2 LUIS ALFREDO LUIS ALFREDO IMMNTX X W/PRV ALLGIC XTRCS NJXS LIPID 75624 [facility] PANEL 2 [facility] INC INC BLOOD 09244 [facility] COUNT 2 [facility] COMPLETE INC INC AUTO&AUTO DIFRNTL WBC SUSCEPTIB 90467 [facility] LTY STDY 2 [facility] ANTIMICRB INC INC IAL MICRO/AGA R DILUTJ URNLS DIP 25873 [facility] 2 [facility] STICK/TAB INC INC LET REAGENT AUTO MICROSCOP Y COLLECTIO 39973 [facility] N VENOUS 2 [facility] BLOOD INC INC VENIPUNCT URE COMPREHEN 68988 [facility] SIVE 2 [facility] [address] [facility] THYROID 2 [facility] STIMULATI INC INC NG HORMONE TSH SPMTRY 64967 MARNI MARNI W/VC 2 LUIS ALFREDO LUIS ALFREDO EXPIRATOR Y LULU W/WO MXML VOL VNTJ PROF [facility] 98594 MARNI MARNI ALLG 2 LUIS ALFREDO LUIS ALFREDO IMMNTX X W/PRV ALLGIC XTRCS NJXS PROF [facility] 94658 MARNI MARNI ALLG 2 LUIS ALFREDO LUIS ALFREDO IMMNTX X W/[place] [address] MARNI MARNI ALLG 2 LUIS ALFREDO LOBATO IMMNTX X W/PRV ALLGIC XTRCS NJXS BLOOD 28814 [facility] COUNT 2 [facility] COMPLETE INC INC AUTO&AUTO DIFRNTL WBC GLUC BLD 34029 [facility] GLUC MNTR 2 [facility] DEV INC INC CLEARED FDA SPEC [facility] [id number] [facility] OBSERVATI 2 [facility] ON INC INC SERVICE PER HOUR COLLECTIO 34193 [facility] N VENOUS 2 [facility] BLOOD INC INC VENIPUNCT URE COMPREHEN 36741 [facility] SIVE 2 [facility] METABOLIC INC INC PANEL INJECTION J2405 [facility] 2 [facility] ONDANSETR INC INC ON HCL PER 1 MG OBSERVATI 85996 [facility] BESSON ON CARE 2 [facility] DISCHARGE INTERNAL MED MANAGEMEN T NEBULIZER E0570 CRISTIN AMARAL WITH 2 HOME HOME [facility]ICAL R EQUIPME EQUIPME PRESSURIZ 43504 [facility] ED/NONPRE 2 [facility] SSURIZED INC INC INHALATIO N TREATMENT NONINVASI 51840 [facility] VE 2 [facility] EAR/PULSE INC INC OXIMETRY SINGLE DETER PROF [facility] 68214 MARNI MARNI ALLG 2 LUIS ALFREDO LOBATO IMMNTX X W/PRV ALLGIC XTRCS NJXS URNLS DIP 64876 [facility] 2 [facility] STICK/TAB INC INC LET REAGENT AUTO MICROSCOP Y URNLS DIP 81282 [facility] STICK/TAB INTERNAL INTERNAL LET RGNT MED MED NON-AUTO W/O MICRSCP CUL BACT 23487 [facility] XCPT 2 [facility] URINE INC INC BLOOD/STO OL AEROBIC ISOL CUL BACT 99513 [facility] AEROBIC 2 [facility] ADDL INC INC METHS DEFINITIV E EA ISOL CULTURE 96353 [facility] BACTERIAL 2 [facility] INC INC QUANTTATI VE COLONY COUNT URINE HOSPITAL G0378 [facility] OBSERVATI 2 [facility] ON INC INC SERVICE PER HOUR INJECTION J2405 [facility] 2 [facility] ONDANSETR INC INC ON HCL PER 1 MG COMPREHEN 02887 [facility] SIVE 2 [facility] METABOLIC INC INC PANEL COLLECTIO 13232 [facility] N VENOUS 2 [facility] BLOOD INC INC VENIPUNCT URE SEDIMENTA 66136 [facility] TIKATI RATE 2 [facility] RBC INC INC NON-AUTOM ATED GLUC BLD 29183 [facility] GLUC MNTR 2 [facility] DEV INC INC CLEARED FDA SPEC HOME USE BLOOD 66548 [facility] COUNT 2 [facility] COMPLETE INC INC AUTO&AUTO DIFRNTL WBC SUSCEPTIB 77421 [facility] LTY STDY 2 [facility] ANTIMICRB INC INC IAL MICRO/AGA R DILUTJ INITIAL 04125 [facility] SCOTTY DALLASATI 2 ZACKERY EDWARD PETR ON INTERNAL CARE/DAY MED 30 MINUTES THERAPEUT 65424 [facility] IC 2 [facility] PROPHYLAC INC INC TIC/DX INJECTION SUBQ/IM PROF [facility] 58965 MARNI MARNI ALLG 2 LUIS ALFREDO LUIS ALFREDO IMMNTX X W/PRV ALLGIC XTRCS NJXS PROF [facility] 59261 MARNI MARNI ALLG 2 LUI SALFREDO LUIS ALFREDO IMMNTX X W/[place] [address] [facility] UREA 2 [facility] NITROGEN INC INC QUANTITAT ANNABELLA LOCM Q9967 [facility] 300-399 2 [facility] MG/ML INC INC IODINE CONCENTRA TION PER ML CREATININ 91336 [facility] E BLOOD 2 [facility] INC INC 3D 90654 [facility] RENDERING 2 [facility] W/INTERP INC INC & POSTPROCE SS SUPERVISI ON COLLECTIO 86430 [facility] N VENOUS 2 [facility] [place] [address] [facility] HEAD/BRAI 2 [facility] N W/O & INC [place] W/[place] [address] [facility] MAXILLOFA 2 [facility] CIAL W/O INC INC & [place] [address] [facility] [facility] HEAD/BRAI 2 MEDICAL AYLA N W/O IMAGING CONTRAST ASS MATERIAL 3D 67576 [facility] RENDERING 2 [facility] INC INC W/INTERP& POSTPROC DIFF WORK STATION CT ORBIT 03259 [facility] SELLA/POS 2 MEDICAL [facility] T IMAGING FOSSA/EAR ASS W/O & W/[place] [address] [place] [facility] MAXILLOFA 2 MEDICAL [facility] CIAL W/O IMAGING CONTRAST ASS MATERIAL [facility] A4258 M E D M E D [...] SUPPLIES HIGH CALIBRATO R SOLUTION/ CHIPS PROF [facility] 82327 MARNI MARNI ALLG 2 LUIS ALFREDO LUIS ALFREDO IMMNTX X W/[place] [address] MARNI MARNI ALLG 2 LUIS ALFREDO LUIS ALFREDO IMMNTX X W/PRV ALLGIC XTRCS NJXS FUNDUS 03508 KENZIE ESPINO PHOTOGRAP 2 JAM JAM HY W/INTERPR ETATION & REPORT VISUAL 86451 KENZIE ESPINO FIELD XM 2 JAM JAM UNI/BI W/INTERP EXTENDED EXAM PREPJ& 49812 MARNI MARNI ALLERGEN 2 LUIS ALFREDO LUIS ALFREDO IMMUNOTHE RAPY 1/OIL DIPPER ANTIGEN PROF SVCS 46228 MARNI MARNI ALLG 2 LUIS ALFREDO LUIS ALFREDO IMMNTX X W/PRV ALLGIC XTRCS NJXS BRNCDILAT 83278 MARNI MARNI RSPSE 2 LUIS ALFREDO LOBATO SPMTRY PRE&POST- BRNCDILAT ADMN PERCUTANE 68419 MARNI MANN OUS TESTS 2 LUIS ALFREDO BET W/ALLERGE ALVARADO EXTRACTS INTRACUTA 02314 MARNI MARNI NEOUS 2 LUIS ALFREDO LUIS ALFREDO TESTS W/ALLERGE ALVARADO EXTRACTS DEMO&/POLLY 15296 MARNI MARNI L OF PT 2 LUIS ALFREDO LUIS ALFREDO UTILIZ AERSL GEN/NEB/I NHLR/IP NEBULIZER E0570 CRISTIN AMARAL WITH 2 HOME HOME [facility] R [facility] [address]88 [facility] DISCHARGE 2 [facility] DAY INTERNAL MANAGEMEN MED T 30 MIN/< SBSQ 29288 [facility] HOSP[facility] 2 [place] [facility] CARE/DAY INTERNAL 25 MED MINUTES INITIAL [address] CATRACHIT[place] CARE/DAY INTERNAL 50 MED MINUTES RADIOLOGI 29219 [facility] C EXAM 2 [facility] CHEST 2 IMAGING VIEWS ASS FRONTAL&L ATERAL INJECTION J0696 [facility] 2 [place] CECE CEFTRIAXO INTERNAL NE SODIUM MEDI PER 250 MG THERAPEUT 00082 [facility] IC 2 [facility] PROPHYLAC INTERNAL TIC/DX MEDI INJECTION SUBQ/IM INJECTION J3301 [facility] 2 [facility] TRIAMCINO INTERNAL INTERNAL LONE MEDI MEDI ACETONIDE NOS 10 MG RADIOLOGI 68650 [facility] C 2 [facility] EXAMINATI INC INC ON CHEST SINGLE VIEW FRONTAL COMPREHEN 19969 [facility] SIVE 2 [facility] METABOLIC INC INC PANEL CREATINE 81731 [facility] KINASE MB 2 [facility] FRACTION INC INC ONLY CREATINE 76503 [facility] KINASE 2 [facility] TOTAL INC INC THER 56616 [facility] PROPH/DX 2 [facility] NJX IV INC INC PUSH SINGLE/1S T SBST/DRUG ECG 02078 [facility] ROUTINE 2 [facility] ECG INC INC W/LEAST 12 LDS TRCG ONLY W/O I&[place] [address] [facility] TROPONIN 2 [facility] QUANTITAT INC INC ANNABELLA THERAPEUT 01196 [facility] IC 2 [facility] INJECTION INC INC IV PUSH EACH NEW DRUG ECG 22452 [facility] HEATHERMIChristiano ROUTINE 2 [facility] W/LEAST P 12 LDS I&R ONLY NATRIURET 99756 [facility] IC 2 [facility] PEPTIDE INC INC BLOOD 74624 [facility] COUNT 2 [facility] COMPLETE INC INC AUTO&AUTO DIFRNTL WBC INJECTION J2405 [facility] 2 [facility] ONDANSETR INC INC ON HCL PER 1 MG DETERMINA 62881 KENZIE ESPINO TION 2 JAM JAM REFRACTIV E STATE OPHTHALMO 05358 KENZIE ESPINO SCPY 2 JAM JAM EXTENDED RETINAL DRAWING I&R 1ST NEBULIZER E0570 CRISTIN AMARAL WITH 2 HOME [facility] R EQUIPME EQUIPME ADMN SET A7003 YOUR YOUR SM VOL 2 PHARMACY PHARMACY NONFILTR [employer] PNEUMAT NEBULIZR DISPBL PHARM G0333 YOUR YOUR DISPEN 2 PHARMACY PHARMACY FEE INHAL [employer] RX; INITIAL 30-DAY SUPPLY NEBULIZER E0570 CRISTIN AMARAL WITH 2 HOME [facility] R EQUIPME EQUIPME ALBUTEROL J7613 YOUR YOUR INHAL 2 PHARMACY PHARMACY NON-CP [employer] PROD THRU DME U DOSE 1 MG RADIOLOGI 22042 LEONA Kumar EXAM 2 MEDICAL AYLA CHEST 2 IMAGING VIEWS ASS FRONTAL&L ATERAL NONINVASI 51900 [facility] [place] VE 2 [facility] CE[facility] EAR/PULSE INTERNAL OXIMETRY MEDI SINGLE DETER THERAPEUT 92649 [facility] IC 2 [facility] INJECTION [place] [address] [facility] INFUSION 2 [facility] THERAPY/P INC INC ROPHYLAXI S /DX 1ST TO 1 [place] [address] [facility] TROPONIN 2 [facility] QUANTITAT INC INC ANNABELLA BLOOD 76239 [facility] COUNT 2 [facility] COMPLETE INC INC AUTO&AUTO DIFRNTL WBC PRESSURIZ 83604 [facility] ED/NONPRE 2 [facility] SSURIZED INC INC INHALATIO N TREATMENT RADIOLOGI 95066 [facility] C EXAM 2 [facility] CHEST 2 INC INC VIEWS FRONTAL&L ATERAL COMPREHEN 88945 [facility] SIVE 2 [facility] METABOLIC INC INC PANEL CREATINE 94536 [facility] KINASE MB 2 [facility] FRACTION INC INC ONLY CREATINE 73093 [facility] KINASE 2 [facility] TOTAL INC INC IAADI 94293 [facility] INFLUENZA 2 [facility] B VIRUS INC INC IAADI 38633 [facility] INFFLUENZ 2 [facility] MEM [...] SUPPLIES HIGH CALIBRATO R SOLUTION/ CHIPS LARYNGOSC 43510 EAR, NOSE SHASHY OPY 1 AND SOBEIDA FLEXIBLE THROAT DIAGNOSTI SPECIAL C SMOKE TOB G0436 EAR, NOSE EAR, NOSE 1 AND AND CESSATION THROAT THROAT CNSL SPECIAL SPECIAL PT; INTRMED 3-10 MIN ESOPHAGOG 17107 José LYONS ASTRODUOD 1 ELOY MAHER MD [facility] [address] [facility] INFUSION 1 [facility] THERAPY/P INC INC ROPHYLAXI S /DX 1ST TO 1 HR GLUC BLD 77018 [facility] GLUC MNTR 1 [facility] DEV INC [place] [address] [facility] INFUSION 1 [facility] THERAPY INC INC PROPHYLAX IS/DX EA HOUR LARYNGOSC 48811 EAR, NOSE SHASHY OPY 1 AND SOBEIDA FLEXIBLE THROAT DIAGNOSTI SPECIAL C BASIC 64293 COMBINED COMBINED METABOLIC 1 PHYSICIAN PHYSICIAN [place] [address] COMBINED COMBINED BLOOD/URI 1 PHYSICIAN PHYSICIAN C ACID S LA S LA COLLECTIO 73255 COMBINED COMBINED N VENOUS 1 PHYSICIAN PHYSICIAN BLOOD S LA S LA VENIPUNCT URE HEMOGLOBI 14128 COMBINED COMBINED N 1 PHYSICIAN PHYSICIAN GLYCOSYLA S LA S LA ML A1C CT SOFT 02569 LE[facility] HOMER TISSUE 1 MEDICAL AYLA NECK W/O IMAGING CONTRAST ASS MATERIAL 3D 69275 [facility] RENDERING 1 MEDICAL AYLA IMAGING W/INTERP& ASS POSTPROC DIFF WORK STATION [facility] E0601 CRISTIN JORDANRELL S 1 HOME HOME POSITIVE MEDICAL MEDICAL AIRWAY EQU[place] [address] [facility] THYROID 1 [facility] STIMULATI INC INC NG HORMONE TSH COMPREHEN 06496 [facility] SIVE 1 [facility] METABOLIC INC INC PANEL BLOOD 54833 [facility] COUNT 1 [facility] COMPLETE INC INC AUTO&[place] [address] [facility] FERRITIN 1 [facility] INC INC COLLECTIO 55332 [facility] N VENOUS 1 [facility] [place] [address] DERMATOLO NARGIS II SURG 1 [facility] PATHOLOGY CONSULTAN TS PSC GROSS&SHANTHI ROSCOPIC EXAM [...] HIGH CALIBRATO R SOLUTION/ CHIPS AMBULANCE A0429 [facility] SERVICE 1 AMBULANCE AMBULANCE BLS SERVICE SERVICE EMERGENCY TRANSPORT GROUND A0425 [facility] MILEAGE 1 AMBULANCE AMBULANCE PER SERVICE SERVICE STATUTE MILE COMPREHEN 38291 [facility] SIVE 1 [facility] METABOLIC INC INC PANEL THER 43691 [facility] PROPH/DX 1 [facility] NJX IV INC INC PUSH SINGLE/1S T SBST/DRUG RADIOLOGI 90809 LEONA HOMER C EXAM 1 MEDICAL AYLA CHEST 2 IMAGING VIEWS ASS FRONTAL&L ATERAL BLOOD 78576 [facility] COUNT 1 [facility] COMPLETE INC INC AUTO&AUTO DIFRNTL WBC PRESSURIZ 19043 [facility] ED/NONPRE 1 [facility] SSURIZED INC INC INHALATIO N TREATMENT THERAPEUT 49195 [facility] IC 1 [facility] INJECTION INC INC IV PUSH EACH NEW DRUG SUSCEPTIB 37172 [facility] LTY STDY 1 [facility] ANTIMICRB INC INC IAL MICRO/AGA R DILUTJ CULTURE 64934 [facility] BACTERIAL 1 [facility] INC INC QUANTTATI VE COLONY COUNT URINE CULTURE 39257 [facility] BCT 1 [facility] ISOL&PRSM INC INC PTV ID ISOLATE EA URINE CHIROPRAC 25583 LETITIAKELLEN KAVYA TIC 1 JANET JANET MANIPULAT ANNABELLA [place] SPINAL 1-2 REGIONS CONTINUOU E0601 CRISTIN AMARAL S 1 HOME HOME POSITIVE MEDICAL MEDICAL AIRWAY EQUIPME EQUIPME PRESSURE DEVICE NON-INVAS 15047 LEONA CORONEL ANNABELLA 1 MEDICAL AYLA PHYSIOLOG IMAGING IC STUDY ASS EXTREMITY 3 LEVLS DUP-SCAN 15454 [facility] CORONEL XTR VEINS 1 MEDICAL AYLA COMPLETE IMAGING ASS BILATERAL STUDY DUP-SCAN 41524 [facility] XTR VEINS 1 [facility] INC INC UNILATERA L/LIMITED STUDY DEBRIDEME 67711 PAWSAT PAWSAT NT NAIL 1 MAR MAR ANY METHOD 6/> CHIROPRAC 86313 KAVYA HOFF TIC 1 JANET JANET MANIPULAT ANNABELLA [place] SPINAL 1-2 REGIONS CONTINUOU E0601 CRISTIN AMARAL S 1 HOME HOME POSITIVE MEDICAL MEDICAL AIRWAY EQUIPME EQUIPME PRESSURE DEVICE COMPREHEN 64060 [facility] SIVE 1 [facility] [address] [facility] AMYLASE 1 [facility] INC INC BLOOD 27922 [facility] COUNT 1 [facility] COMPLETE INC INC AUTO&AUTO DIFRNTL WBC SUSCEPTIB 47586 [facility] LTY STDY 1 [facility] ANTIMICRB INC INC IAL MICRO/AGA R DILUTJ URNLS DIP 39670 [facility] 1 [facility] STICK/TAB INC INC LET [place] [address] [facility] LIPASE 1 [facility] INC INC THERAPEUT 56658 [facility] IC 1 [facility] PROPHYLAC INC INC TIC/DX INJECTION SUBQ/IM CULTURE 80900 [facility] BCT 1 [facility] ISOL&PRSM INC INC PTV ID ISOLATE EA URINE CULTURE 34915 [facility] BACTERIAL 1 [facility] INC INC QUANTTATI VE COLONY COUNT URINE CHIROPRA 73019 KAVYA HOFF TIC 1 JANET JANTE MANIPULAT ANNABELLA [place] SPINAL 1-2 REGIONS COLLECTIO 39275 [facility] N VENOUS 1 [facility] BLOOD INC INC VENIPUNCT URE COMPREHEN 41809 [facility] SIVE 1 [facility] [address] [facility] THYROID 1 [facility] STIMULATI INC INC NG HORMONE TSH HEMOGLOBI 30663 [facility] N 1 [facility] [place] [address] [facility] ABDOMEN & 1 [facility] PELVIS INC INC W/CONTRAS T MATERIAL 3D 28566 BRANDON [facility] RENDERING 1 [facility] INC INC W/INTERP& POSTPROC DIFF WORK STATION THERAPEUT 41171 BRAND[facility] RABAGOON IC PX 1/> 1 [facility] AREAS INC INC EACH 15 MIN EXERCISES APPL 45286 [facility] MODALITY 1 [facility] 1/> AREAS INC INC ULTRASOUN D EA 15 MIN E-STIM G0283 [facility] 1/> AREAS 1 [facility] OTH THAN INC INC WND CARE PART TX PLAN LIPID 68052 [facility] PANEL 1 [facility] INC INC COMPUTER- 65883 [facility] AIDED 1 [facility] DETECTION INC INC SCREENING MAMMOGRAP HY SCREENING G0202 [facility] 1 [facility] MAMMOGRAP INC INC HY DURGA INCL CAD WHEN PERFORMD E-STIM G0283 [facility] 1/> AREAS 1 [facility] OTH THAN INC INC WND CARE PART TX PLAN APPL 09858 [facility] MODALITY 1 [facility] 1/> AREAS INC INC ULTRASOUN D EA 15 MIN THERAPEUT 77019 [facility] IC PX 1/> 1 [facility] AREAS INC INC EACH 15 MIN EXERCISES THERAPEUT 81041 [facility] IC PX 1/> 1 [facility] AREAS INC INC EACH 15 MIN EXERCISES APPL 98693 [facility] MODALITY 1 [facility] 1/> AREAS INC INC ULTRASOUN D EA 15 MIN E-STIM G0283 [facility] 1/> AREAS 1 [facility] OTH THAN INC INC WND CARE PART TX PLAN CHIROPRAC 63969 KAVYA HOFF TIC 1 JANET JANET MANIPULAT ANNABELLA [place] SPINAL 1-2 REGIONS E-STIM G0283 [facility] 1/> AREAS 1 [facility] OTH THAN INC INC WND CARE PART TX PLAN THERAPEUT 04225 [facility] IC PX 1/> 1 [facility] AREAS INC INC EACH 15 MIN EXERCISES PHYSICAL 10502 [facility] THERAPY 1 [facility] EVALUATIO INC INC N APPL 73865 [facility] MODALITY 1 [facility] 1/> AREAS INC INC ULTRASOUN D EA 15 MIN CHIROPRAC 55520 KAVYA KEDING TIC 1 JANET JANET MANIPULAT [place] SPINAL 1-2 REGIONS CONTINUOU E0601 CRISTIN AMARAL S 1 HOME HOME POSITIVE MEDICAL MEDICAL AIRWAY EQUIPME EQUIPME PRESSURE DEVICE RADEX 81079 LEONA CORONEL UPPER GI 1 MEDICAL AYLA W/WO IMAGING GLUCAGON/ ASS DELAY IMAGES W/KUB CHIROPRAC 33533 KAVYA [place]ED[place] TIC 1 JANET JANET MANIPULAT [place] SPINAL 1-2 REGIONS CHIROPRA 15298 KED[facility] KED[place] TIC 1 JANET JANET MANIPULAT [...] SUPPLIES HIGH CALIBRATO R SOLUTION/ CHIPS CHIROPRA 08021 [facility] [place] TIC 1 JANET JANET MANIPULAT [place] SPINAL 1-2 REGIONS CHIROPRA 98298 [place] TIC 1 JANET JANET MANIPULAT [place] SPINAL 1-2 REGIONS CHIROPRA 93508 [place]ED[place] TIC 1 JANET JANET MANIPULAT [place] SPINAL 1-2 REGIONS CHIROPRA 71984 KED[place]ED[place] TIC 1 JANET JANET MANIPULAT [place] SPINAL 1-2 REGIONS CHIROPRA 25642 [place] TIC 1 JANET JANET MANIPULAT [...] MEDICAL AIRWAY EQUIPME EQUIPME PRESSURE DEVICE CHIROPRAC 46386 [place] TIC 1 JANET JANET MANIPULAT [place] SPINAL 1-2 REGIONS CHIROPRAC 47279 KAVYA [place]EDING TIC 1 JANET JANET MANIPULAT [place] SPINAL 1-2 REGIONS POLYSOM 10432 [facility] 6/>YRS 1 DEIDRA DEIDRA SLEEP W/CPAP 4/> ADDL JENNIE ATTND POLYSOM 96703 [facility] 6/>YRS 1 DEIDRA DEIDRA SLEEP 4/> ADDL JENNIE ATTND POLYSOM 25270 BR[facility]ON T[facility]LOR 6/>YRS 1 [facility] SLEEP 4/> INC INC ADDL JENNIE ATTND 3D 18591 [facility] RENDERING 1 [facility] W/INTERP INC INC & POSTPROCE SS SUPERVISI ON MRI 57126 BR[facility] SPINAL 1 [facility] CANAL INC INC LUMBAR W/O CONTRAST MATERIAL BLOOD 01586 [facility] T[facility] COUNT 1 [facility] COMPLETE INC INC AUTO&AUTO DIFRNTL WBC COLLECTIO 38583 [facility] N VENOUS 1 [facility] BLOOD INC INC VENIPUNCT URE COMPREHEN 57094 BR[facility]ON T[facility] SIVE 1 [facility] [place] [address] BR[facility]AYLOR THYROID 1 [facility] STIMULATI INC INC NG HORMONE TSH CREATINE 82236 BR[facility] T[facility] KINASE 1 [facility] TOTAL INC INC SEDIMENTA 52195 BR[facility] TION RATE 1 [facility] RBC INC INC NON-AUTOM ATED AMBULANCE A0429 [facility] SERVICE 1 AMBULANCE AMBULANCE BLS SERVICE SERVICE EMERGENCY TRANSPORT GROUND A0425 [facility] PER SERVICE SERVICE STATUTE MILE THER 72163 [facility] PROPH/DX 1 [facility] NJX IV INC INC PUSH SINGLE/1S T SBST/DRUG RADEX 12527 [facility] SPINE 1 [facility] LUMBOSACR INC INC AL 2/3 VIEWS URNLS DIP 95785 [facility] 1 [facility] STICK/TAB INC INC LET REAGENT AUTO MICROSCOP Y RADIOLOGI 43750 BRANDON Kumar EXAM 1 [facility] CHEST 2 INC INC VIEWS FRONTAL&L ATERAL THERAPEUT 07678 [facility] IC 1 [facility] INJECTION INC INC IV PUSH EACH NEW DRUG CULTURE 23110 [facility] BACTERIAL 1 [facility] INC INC QUANTTATI VE COLONY COUNT URINE BLOOD 08881 [facility] COUNT 1 [facility] COMPLETE INC INC AUTO&AUTO DIFRNTL WBC COMPREHEN 98496 [facility] SIVE 1 [facility] METABOLIC INC INC PANEL HEMOGLOBI 60159 [facility] N 1 [facility] GLYCOSYLA INC INC ML A1C COLLECTIO 46701 BRAND[facility] T[facility] N VENOUS 1 [facility] BLOOD INC INC VENIPUNCT URE CYANOCOBA 11450 [facility] PRATEEK 1 [facility] VITAMIN INC INC B-12 GROUND A0425 [facility] PER SERVICE SERVICE STATUTE MILE ECG 55462 BRANDON LEMUS ROUTINE 1 [facility] W/LEAST P 12 LDS I&R ONLY RADIOLOGI 62158 LEONA Kumar 1 MEDICAL AYLA EXAMINATI IMAGING ON CHEST ASS SINGLE VIEW FRONTAL AMB A0427 [facility] SERVICE 1 AMBULANCE AMBULANCE ALS SERVICE SERVICE EMERGENCY TRANSPORT LEVEL 1 TECHNETIU A9502 BRANDON Wayne TC-99M 1 [facility] TETROFOSM INC INC IN DX PER STUDY DOSE MYOCARDIA 45404 [facility] L SPECT 1 [facility] MULTIPLE INC INC STUDIES CV STRS 68498 BR[facility]ON TAYL[facility] TST 1 [facility] XERS&/OR [place] [address] [facility]/BRAI 1 MEDICAL AYLA N IMAGING W/CONTRAS ASS T MATERIAL 3D 23567 BR[facility]ON TAY[facility]OR RENDERING 1 [facility] W/INTERP INC INC & POSTPROCE SS SUPERVISI ON CT SOFT 01163 [facility] TISSUE 1 MEDICAL MEDICAL NECK IMAGING IMAGING W/[place] [address] BR[facility] T[facility] HEAD/BRAI 1 [facility] W/O & INC INC W/CONTRAS T MATERIAL 3D 28196 [place] [facility] R[facility]ERING 1 MEDICAL AYLA IMAGING W/INTERP& ASS POSTPROC DIFF WORK STATION COLLECTIO 40982 BRANDON BRANDON N VENOUS 1 [facility] [place] [address] [facility] UREA 1 [facility] NITROGEN INC INC QUANTITAT ANNABELLA CREATININ 74868 [facility] T[facility] E BLOOD 1 [place] [address] [facility] INFUSION 1 [facility] THERAPY/P INC INC ROPHYLAXI S /DX 1ST TO 1 HR GLUC BLD 71266 BR[facility] GLUC MNTR 1 [facility] DEV INC [place] [address] BR[facility] T[facility] INFUSION 1 [facility] THERAPY INC INC PROPHYLAX IS/DX EA HOUR ANES 49774 [facility] PET[facility] LOWER 1 ANESTH INTESTINE OF THE BLUE ENDOSCOPY DISTAL DUODENUM COLONOSCO 79604 C SOPHIE LYONS PY FLX DX 1 [...] SUPPLIES SUPPLIES HIGH CALIBRATO R SOLUTION/ CHIPS [facility] A4258 M E D M E D WERED 1 SUPPLIES SUPPLIES DEVICE FOR LANCET EACH RADIOLOGI 64590 [facility] C EXAM 1 MEDICAL AYLA CHEST 2 IMAGING VIEWS ASS FRONTAL&L ATERAL OPHTH 57056 ELLEN HALLMAN [facility] 1 VISION XM&EVAL COMPRHNSV ESTAB PT 1/> BLOOD 22915 [facility] T[facility] COUNT 1 [facility] COMPLETE INC INC AUTO&AUTO DIFRNTL WBC COLLECTIO 87851 BR[facility] TAYLOR N VENOUS 1 [facility] BLOOD INC INC VENIPUNCT URE BASIC 58806 BRANDON TAYLOR METABOLIC 1 [facility] PANEL INC INC CALCIUM TOTAL RADIOLOGI 53717 [facility] C EXAM 1 MEDICAL AYLA CHEST 2 IMAGING VIEWS ASS FRONTAL&L ATERAL REPL DEYSI A4233 [facility] ALKALINE 0 MEDICAL MEDICAL NOT J FLY MOORE BG MON OWND PT NORMAL A4256 [facility] LOW AND 0 MEDICAL MEDICAL HIGH CALIBRATO R SOLUTION/ CHIPS [facility] A4258 CCS CCS WERED 0 MEDICAL DIRECTOR OF LITIGATION FOR LANCET EACH LANCETS A4259 CCS CCS [...] W/INTEGRA MEDICAL MEDICAL ML VOICE SYNTHESIZ ER [facility] A4258 SECURE SECURE WERED 0 CARE CARE DEVICE MEDICAL MEDICAL FOR LANCET EACH RADIOLOGI 57807 José CACERES 0 MEDICAL FREDO EXAMINATI IMAGING ON KNEE 3 ASSOCIATE VIEWS S BASIC 77393 [facility] T[facility] METABOLIC 0 [facility] PANEL INC INC CALCIUM TOTAL CULTURE 41920 [facility] BACTERIAL 0 [facility] INC INC QUANTTATI VE COLONY COUNT URINE RADIOLOGI 31698 LEONA CORONEL C 0 MEDICAL FREDO EXAMINATI IMAGING ON CHE[place] [address] BR[facility] INFUSION 0 [facility] HYDRATION INC INC INITIAL 31 MIN-1 HOUR HEMOGLOBI 82014 [facility] N 0 [facility] GLYCOSYLA INC INC ML A1C BLOOD 28346 [facility] COUNT 0 [facility] COMPLETE INC INC AUTO&AUTO DIFRNTL WBC URNLS DIP 04194 [facility] 0 [facility] [...] SCR LAB LAB AUTO&MNL RSCR PHYS IADNA 92700 PATHOLOGY PATHOLOGY PAPILLOMA 9 & & VIRUS CYTOLOGY CYTOLOGY HUMAN LAB LAB AMPLIFIED PROBE TQ PHARM G0333 [facility] 9 PHARMACY PHARMACY FEE INHAL 3938 3938 RX; INITIAL 30-DAY SUPPLY RADIOLOGI 27583 José CACERES EXAM 9 MEDICAL FREDO CHEST 2 IMAGING VIEWS ASSOCIATE FRONTAL&L S ATERAL PRESSURIZ 55345 [place] BESSON, ED/NONPRE 9 [place] LA[place]IE A SSURIZED INTERNAL INHALATIO MED N [...] RENT; EQUIPMENT EQUIPMENT FLWMTR HUMIDFR&M ASK PRESSURIZ 13835 CHRIS PRISCILLA, ED/NONPRE 9 [place] A SSURIZED INTERNAL INHALATIO MED N TREATMENT URNLS DIP 99742 [facility] 9 [facility] STICK/TAB INC INC LET REAGENT AUTO MICROSCOP Y IAADI 30046 [facility] INFFLUENZ 9 [facility] A A VIRUS INC INC IAADI 63534 [facility] INFLUENZA 9 [facility] B VIRUS INC INC CULTURE 21837 [facility] BACTERIAL 9 [facility] INC INC QUANTTATI VE COLONY COUNT URINE APPL 15605 [place] ESCOBAR, MODALITY 9 FAMILY LILIYA C 1/> AREAS CHIROPRAC ELEC TIC STIMJ EA 15 MIN THERAPEUT 55200 CYNMIGUEL ESCOBAR, IC PX 1/> 9 FAMILY LILIYA C AREAS CHIROPRAC EACH 15 TIC MIN EXERCISES CHIROPRAC 29951 [place] ESCOBAR, TIC 9 FAMILY LILIYA C MANIPULAT CHIROPRAC ANNABELLA TX TIC SPINAL 3-4 REGIONS APPL 74699 [place] ESCOBAR, MODALITY 9 FAMILY LILIYA C 1/> AREAS CHIROPRAC TRACTION TIC MECHANICA L APPL 52676 [place] ESCOBAR, MODALITY 9 FAMILY LILIYA C 1/> AREAS CHIROPRAC TRACTION TIC MECHANICA L APPL 15843 [place] ESCOBAR, MODALITY 9 FAMILY LILIYA C 1/> AREAS CHIROPRAC ELEC TIC STIMJ EA 15 MIN CHIROPRAC 16905 [place] ESCOBAR, TIC 9 FAMILY LILIYA C MANIPULAT CHIROPRAC ANNABELLA TX TIC SPINAL 3-4 REGIONS THERAPEUT 98706 [place] ESCOBAR, IC PX 1/> 9 FAMILY LILIYA C AREAS CHIROPRAC EACH 15 TIC MIN EXERCISES CHIROPRAC 93957 [place] ESCOBAR, TIC 9 FAMILY LILIYA C MANIPULAT CHIROPRAC ANNABELLA TX TIC SPINAL 3-4 REGIONS APPL 40459 [place] ESCOBAR, MODALITY 9 FAMILY LILIYA C 1/> AREAS CHIROPRAC ELEC TIC STIMJ EA 15 MIN THERAPEUT 91903 [place] ESCOBAR, IC PX 1/> 9 FAMILY LILIYA C AREAS CHIROPRAC EACH 15 TIC MIN EXERCISES APPL 55252 [place] ESCOBAR, MODALITY 9 FAMILY LILIYA C 1/> AREAS CHIROPRAC TRACTION TIC MECHANICA L THERAPEUT 36365 [place] ESCOBAR, IC PX 1/> 9 FAMILY LILIYA C AREAS CHIROPRAC EACH 15 TIC MIN EXERCISES APPL 86481 [place] ESCOBAR, MODALITY 9 FAMILY LILIYA C 1/> AREAS CHIROPRAC ELEC TIC STIMJ EA 15 MIN SELF-CARE 84014 [place] ESCOBAR, /HOME 9 FAMILY LILIYA C MGMT CHIROPRAC TRAINING TIC EACH 15 MINUTES APPL 79680 [place] ESCOBAR, MODALITY 9 FAMILY LILIYA C 1/> AREAS CHIROPRAC TRACTION TIC MECHANICA L CHIROPRAC 64431 [place] ESCOBAR, TIC 9 FAMILY LILIYA C MANIPULAT CHIROPRAC ANNABELLA TX TIC SPINAL 3-4 REGIONS INJ J0702 LEANA DUEÑAS, BETAMETHA 9 CHELSY W CHELSY W SONE ACETATE & PHOSPHATE 3 MG INITIAL 34889 [facility] 9 Y OF CHERYL CARE/DAY [place] A 70 INTERNAL MINUTES MEDICINE RADIOLOGI 51063 José DUMAS EXAM 9 MEDICAL FORTINO G CHEST 2 SERV VIEWS FOUNDATIO FRONTAL&L ATERAL ECG 83861 BUNNY JOHNSON, ROUTINE 9 MEDICAL SIMBA C ECG SERV W/LEAST FOUNDATIO 12 LDS I&R ONLY PRTBLE E0431 [place] GASEOUS 9 HOME HOME O2 SYS MEDICAL MEDICAL RENT; EQUIPMENT EQUIPMENT FLWMTR HUMIDFR&M ASK O2 CONC 1 E1390 EVELYN RIVAS [place] 9 HOME HOME 85%/>02 MEDICAL MEDICAL CONC AT EQUIPMENT EQUIPMENT PRSC FLW RATE OBSERVATI 89805 [place] PRISCILLA, ON CARE 9 [place] A DISCHARGE INTERNAL MED MANAGEMEN T INITIAL 29527 [place] PRISCILLA, OBSERVATI 9 [place] LAURIE A ON INTERNAL CARE/DAY MED 30 MINUTES BLOOD 88771 [facility] COUNT 9 [facility] COMPLETE INC INC AUTO&AUTO DIFRNTL WBC URNLS DIP 05564 [facility] 9 [facility] STICK/TAB INC INC LET REAGENT AUTO MICROSCOP Y COMPREHEN 96208 [facility] SIVE 9 [facility] METABOLIC INC INC PANEL CULTURE 18032 [facility] T[facility] BACTERIAL 9 [facility] INC INC QUANTTATI VE COLONY COUNT URINE SBSQ 79642 [facility] 9 CARE/DAY 15 MINUTES ECG 90714 CARDIOLOG SUMMERS, ROUTINE 9 Y KHURRAM A ECG ASSOCIATE W/LEAST S OF 12 [facility] I&R ONLY SBSQ 47467 [facility] 9 CARE/DAY 15 MINUTES O2 CONC 1 E1390 EVELYN GUZMAN [facility] 9 HOME HOME 85%/>02 MEDICAL MEDICAL CONC AT EQUIPMENT EQUIPMENT PRSC FLW RATE PRTBLE E0431 EVELYN RIVAS GASEOUS 9 HOME HOME O2 SYS MEDICAL MEDICAL RENT; EQUIPMENT EQUIPMENT FLWMTR HUMIDFR&M ASK SBSQ 16954 [facility] 9 CARE/DAY 15 MINUTES SBSQ 09473 [facility] 9 CARE/DAY 15 MINUTES SBSQ 80187 [facility] 9 CARE/DAY 15 MINUTES ECG 46761 CARDIOLOG [place] ROUTINE 9 Y , D L ECG ASSOCIATE W/LEAST S OF 12 [facility] I&R ONLY INITIAL 04149 [facility] 9 CARE/DAY 30 MINUTES GROUND A0425 [facility] AM[facility]ULANCE AMBULANCE PER SERVICE SERVICE STATUTE MILE AMBULANCE A0429 [facility] SERVICE 9 AMBULANCE AMBULANCE BLS SERVICE SERVICE EMERGENCY TRANSPORT RADIOLOGI 43197 José CACERES 9 MEDICAL FREDO EXAMINATI IMAGING ON CHEST ASSOCIATE SINGLE S VIEW FRONTAL AMB A0422 JULEE LADD OXYGEN&O2 9 AMBULANCE AMBULANCE SUPPLIES SERVICE [place] [address] BR[facility] T[facility] INFUSION 9 [facility] THERAPY/P INC INC ROPHYLAXI S /DX 1ST TO 1 HR GLUC BLD 92598 BR[facility] T[facility] GLUC MNTR 9 [facility] DEV INC INC CLEARED FDA SPEC HOME USE BLOOD 74633 [facility] COUNT 9 [facility] COMPLETE INC INC AUTO&AUTO DIFRNTL WBC KETONE 60843 [facility] T[facility] BODIES 9 [facility] SERUM INC INC QUALITATI VE THERAPEUT 48066 [facility] T[facility] IC 9 [facility] PROPHYLAC INC INC TIC/DX INJECTION SUBQ/IM BASIC 20332 BRANDON TAYOLR METABOLIC 9 [facility] PANEL INC INC CALCIUM TOTAL PRTBLE E0431 EVELYN RIVAS GASEOUS 9 HOME HOME O2 SYS MEDICAL MEDICAL RENT; EQUIPMENT EQUIPMENT FLWMTR HUMIDFR&M ASK O2 CONC 1 E1390 [place]ELYN RIVAS [place] 9 HOME HOME 85%/>02 MEDICAL MEDICAL CONC AT EQUIPMENT EQUIPMENT PRSC FLW RATE GROUND A0425 [facility] 9 AMBULANCE AMBULANCE PER SERVICE SERVICE STATUTE MILE INITIAL 19990 CHUY DIAZ 9 [facility] ON INTERNAL CARE/DAY MED 30 MINUTES AMB A0427 JULEE LADD SERVICE 9 AMBULANCE AMBULANCE ALS SERVICE SERVICE EMERGENCY TRANSPORT LEVEL 1 AMB A0422 JULEE LADD OXYGEN&O2 9 AMBULANCE AMBULANCE SUPPLIES SERVICE SERVICE [facility] G0378 [facility] T[facility] OBSERVATI 9 [facility] [place] [address] BR[facility] T[facility] INFUSION 9 [facility] THERAPY/P INC INC ROPHYLAXI S /DX 1ST TO 1 HR GLUC BLD 95857 BR[facility] T[facility] GLUC MNTR 9 [facility] DEV INC [place] [address] BRANDON TAYL[facility] TROPONIN 9 [facility] QUANTITAT INC INC ANNABELLA COMPREHEN 66948 BRANDON TAYLOR SIVE 9 [facility] METABOLIC INC INC PANEL CREATINE 77014 BRANDON BRANDON KINASE MB 9 [facility] FRACTION INC INC ONLY RADIOLOGI 99894 BRANDON TAYLOR C 9 [facility] EXAMINATI INC INC ON CHEST [place] FRONTAL CREATINE 08558 BRANDON BRANDON KINASE 9 [facility] TOTAL INC INC BASIC 92339 [facility] METABOLIC 9 [facility] PANEL INC INC CALCIUM TOTAL ECG 27787 BRANDON JAUREGUIKEMIE ROUTINE 9 [facility] W/LEAST PROF SERV 12 LDS I&R ONLY ECG 09893 BRANDON TAYLOR ROUTINE 9 [facility] ECG INC INC W/LEAST 12 LDS TRCG ONLY W/O I&R BLOOD 50971 BRANDON TAYLOR COUNT 9 [facility] COMPLETE INC INC AUTO&AUTO DIFRNTL WBC RADEX 83365 BRANDON BRANDON ESOPHAGUS 9 [facility] INC INC 3D 71858 BR[facility]ON TAYL[facility] RENDERING 9 [facility] INC INC W/INTERP& POSTPROC DIFF WORK STATION CT SOFT 29071 BRANDON TAYLOR TISSUE 9 [facility] NECK INC INC W/CONTRAS T MATERIAL LOCM Q9967 BRANDON TAYLOR [phone] [facility] MG/ML INC INC IODINE CONCENTRA TION PER ML COLLECTIO 65383 BRANDON TAYLOR N VENOUS 9 [facility] BLOOD INC INC VENIPUNCT URE CALCIUM 68062 [facility] TOTAL 9 [facility] [place] [address] [facility] THYROID 9 [facility] STIMULATI [place] [address] BRANDON T[facility] UREA 9 [facility] NITROGEN [place] [address] BR[facility] THYROXINE 9 [facility] TOTAL INC INC CREATININ 95766 BRANDON TAYLOR E BLOOD 9 [facility] INC INC NORMAL A4256 DIABETES DIABETES LOW AND 9 CARE CLUB [facility] CALIBRATO R SOLUTION/ CHIPS PRTBLE E0431 EVELYN RIVAS GASEOUS 9 HOME HOME O2 SYS MEDICAL MEDICAL RENT; EQUIPMENT EQUIPMENT FLWMTR HUMIDFR&M ASK O2 CONC 1 E1390 EVELYN RIVAS [place] 9 HOME HOME 85%/>02 MEDICAL MEDICAL CONC AT EQUIPMENT EQUIPMENT PRSC FLW RATE COLLECTIO 22312 BR[facility] T[facility]OR N VENOUS 9 [facility] BLOOD INC INC VENIPUNCT URE COMPREHEN 41511 BR[facility] T[facility]OR SIVE 9 [facility] METABOLIC INC INC PANEL LIPID 58585 BR[facility] T[facility] PANEL 9 [facility] INC INC RADIOLOGI 67736 BRANDON TAYLOR C 9 [facility] EXAMINATI INC INC ON KNEE 3 VIEWS RADEX 09127 BR[facility]ON T[facility] ANKLE 9 [facility] COMPLETE INC INC MINIMUM 3 VIEWS PRTBLE E0431 EVELYN RIVAS GASEOUS 9 HOME HOME O2 SYS MEDICAL MEDICAL RENT; EQUIPMENT EQUIPMENT FLWMTR HUMIDFR&M ASK O2 CONC 1 E1390 EVELYN RIVAS [place] 9 HOME HOME 85%/>02 MEDICAL MEDICAL CONC AT EQUIPMENT EQUIPMENT PRSC FLW RATE COLONOSCO 00152 [place] RISA, PY 9 MEDICAL [place] W/BIOPSY SERV SINGLE/[place] [address] BRANDON TAYLOR INFUSION 9 [facility] THERAPY/P INC INC ROPHYLAXI S /DX 1ST TO 1 HR GLUC BLD 90394 BRANDON TAYLOR GLUC MNTR 9 [facility] DEV INC INC [place] [address] PATHOLOGY PATHOLOGY SURG 9 & & PATHOLOGY CYTOLOGY CYTOLOGY LAB LAB GROSS&SHANTHI ROSCOPIC EXAM ANES 77259 [facility] 9 ANESTH KANNAN Ortega [facility] [place] [address] BRAND[facility] T[facility] INFUSION 9 [facility] THERAPY INC INC PROPHYLAX IS/DX EA HOUR THER 19282 BRANDON TAYL[facility] PROPH/DX 9 [facility] NJX IV INC INC PUSH SINGLE/1S T SBST/DRUG CREATINE 09405 BRANDON TAYLOR KINASE 9 [facility] [place] [address] BRANDON TAYLOR LIPASE 9 [place] [address] BRANDON [facility]AYLOR TROPONIN 9 [facility] QUANTITAT INC INC ANNABELLA BLOOD 39037 BRANDON TAYLOR COUNT 9 [facility] COMPLETE INC INC AUTO&AUTO DIFRNTL WBC URNLS DIP 86010 BRANDON TAYLOR 9 [facility] STICK/TAB INC INC LET REAGENT AUTO MICROSCOP Y THERAPEUT 86599 BRANDON TAYLOR IC 9 [facility] INJECTION INC INC IV PUSH EACH NEW DRUG INJECTION J2405 BRANDON TAYLOR 9 [facility] ONDANSETR INC INC ON HCL PER 1 MG COMPREHEN 99131 BRANDON TAYLOR SIVE 9 [facility] [place] [address] BR[facility] AMYLASE 9 [facility] INC INC CREATINE 62397 BRANDON TAY[facility]OR KINASE MB 9 [facility] FRACTION INC INC ONLY ECG 94229 BRANDON TAYLOR ROUTINE 9 [facility] ECG INC INC W/LEAST 12 LDS TRCG ONLY W/O I&R ECG 23487 BRANDON CHOWDHURY, ROUTINE 9 [facility] W/LEAST PROF SERV 12 LDS I&R ONLY AMB A0427 JULEE LADD SERVICE 9 AMBULANCE AMBULANCE ALS SERVICE SERVICE EMERGENCY TRANSPORT LEVEL 1 GROUND A0425 JULEE LADD MILEAGE 9 AMBULANCE AMBULANCE PER SERVICE SERVICE STATUTE MILE AMB A0422 JULEE LADD OXYGEN&O2 9 AMBULANCE AMBULANCE SUPPLIES SERVICE SERVICE LIFE SUSTAININ G SITUATION KETONE 21949 BRANDON TAYLOR BODIES 9 [facility] [address] BRANDON TAYLOR INFUSION 9 [facility] THERAPY/P INC INC ROPHYLAXI S /DX 1ST TO 1 HR BLOOD 66927 BRANDON TAYLOR COUNT 9 [facility] COMPLETE INC INC AUTO&AUTO DIFRNTL WBC SUSCEPTIB 61724 BRANDON TAYLOR LTY STDY 9 [facility] ANTIMICRB INC INC IAL MICRO/AGA R DILUTJ URNLS DIP 87888 BRANDON TAYLOR 9 [facility] STICK/TAB INC INC LET REAGENT AUTO MICROSCOP Y THERAPEUT 42130 BRANDON TAYLOR IC 9 [facility] INJECTION INC INC IV PUSH EACH NEW DRUG CULTURE 18952 BR[facility] TAYLOR BACTERIAL 9 [facility] INC INC QUANTTATI VE COLONY COUNT URINE CULTURE 79573 BRANDON TAYLOR BCT 9 [facility] ISOL&PRSM INC INC PTV ID ISOLATE EA URINE COMPREHEN 30407 BRANDON TAYLOR SIVE 9 [facility] METABOLIC INC INC PANEL PRTBLE E0431 EVELYN RIVAS GASEOUS 9 HOME HOME O2 SYS MEDICAL MEDICAL RENT; EQUIPMENT EQUIPMENT FLWMTR HUMIDFR&M ASK O2 CONC 1 E1390 EVELYN GUZMAN PORT 9 HOME HOME 85%/>02 MEDICAL MEDICAL CONC AT EQUIPMENT EQUIPMENT PRSC FLW RATE GLUC BLD 59732 BRANDON TAYLOR GLUC MNTR 9 [facility] DEV INC INC CLEARED FDA SPEC HOME USE THERAPEUT 54418 BRANDON TAYLOR IC 9 [facility] PROPHYLAC INC INC TIC/DX INJECTION SUBQ/IM [...] 9 [facility] BLD GLU A4253 DIABETES DIABETES TEST/REAG 9 CARE CLUB CARE CLUB T STRIPS [facility] HOME BLD GLU MON-50 O2 CONC 1 E1390 EVELYN RIVAS [place] 9 HOME HOME 85%/>02 MEDICAL MEDICAL CONC AT EQUIPMENT EQUIPMENT PRSC FLW RATE NORMAL A4256 DIABETES DIABETES LOW AND 9 CARE [facility] CARE CL[facility] CALIBRATO R SOLUTION/ CHIPS PRTBLE E0431 [...] 8 CARE [facility]UB [facility] BLD GLU A4253 DIABETES DIABETES TEST/REAG 8 CARE [facility] CARE CLUB T STRIPS [facility] HOME BLD GLU MON-50 GASTRIC 02474 [facility] 8 MEDICAL FREDO IMAGING IMAGING STUDY ASSOCIATE S O2 CONC 1 E1390 EVELYN RIVAS [place] 8 HOME HOME 85%/>02 MEDICAL MEDICAL CONC AT EQUIPMENT EQUIPMENT PRSC FLW RATE PRTBLE E0431 EVELYN RIVAS GASEOUS 8 HOME HOME O2 SYS MEDICAL MEDICAL RENT; EQUIPMENT EQUIPMENT FLWMTR HUMIDFR&M ASK LANCETS A4259 DIABETES DIABETES PER BOX 8 [facility] 100 [facility] BLD GLU A4253 DIABETES DIABETES TEST/REAG 8 CARE [facility] CARE CLUB T STRIPS [facility] HOME BLD GLU MON-50 IV NFUS 53721 [facility] THER 8 [facility] PROPH/DX INC INC EA HR URNLS DIP 26014 [facility] STICK/TAB INC INC LET REAGENT AUTO MICROSCOP Y GLUC BLD 22003 [facility] GLUC MNTR 8 [facility] DEV INC INC [place] [address] [facility] THER 8 [facility] PROPH/DX INC INC 1ST >1 HR BLOOD 66730 [facility] COUNT 8 [facility] COMPLETE INC INC AUTO&AUTO DIFRNTL WBC BASIC 48630 [facility] METABOLIC 8 [facility] PANEL INC INC CALCIUM TOTAL PRTBLE E0431 EVELYN RIVAS GASEOUS 8 HOME HOME O2 SYS MEDICAL MEDICAL RENT; EQUIPMENT EQUIPMENT FLWMTR HUMIDFR&M ASK O2 CONC 1 E1390 EVELYN RIVAS [place] 8 HOME HOME 85%/>02 MEDICAL MEDICAL CONC AT EQUIPMENT EQUIPMENT PRSC FLW RATE 3D 11015 [facility] DUKES 8 MEDICAL RACHEL P W/INTERP IMAGING & [place] [address] [facility] HEAD/BRAI 8 [facility] N W/O INC INC CONTRAST MATERIAL CUL 17432 [facility] PRSMPTV 8 [facility] PTHGNC INC INC ORGANISMS SCR DNS CHART SPECIAL 36494 PATHOLOGY PATHOLOGY STAIN 8 & & GROUP 1 CYTOLOGY CYTOLOGY MICROORGA [facility] I&R GLUC BLD 55598 [facility] GLUC MNTR 8 [facility] DEV INC INC CLEARED FDA SPEC HOME USE EGD 63294 EVELYN BARNARD 8 MEDICAL [place] BIOPSY SERV SINGLE/[place] [address] [facility] THER 8 [facility] PROPH/DX INC INC 1ST >1 HR ANES 65968 [facility] DOUG UPPER GI 8 ANESTH ERLIN L ENDOSCOPY OF THE [place] [address] PATHOLOGY PATHOLOGY SURG 8 & & PATHOLOGY [...] AT EQUIPMENT EQUIPMENT PRSC FLW RATE COMPREHEN 59267 [facility] SIVE 8 [facility] METABOLIC INC INC PANEL HEPATITIS 88543 [facility] A 8 [facility] [address] [facility] AMYLASE 8 [facility] INC INC ACUTE 47963 [facility] HEPATITIS 8 [facility] PANEL INC INC HEPATITIS 97435 [facility] B SURF 8 [facility] [place] [address] [facility] LIPASE 8 [facility] INC INC HEPATITIS 96885 [facility] B CORE 8 [facility] ANTIBODY INC INC HBCAB TOTAL URNLS DIP 36829 [facility] 8 [facility] STICK/TAB INC INC LET REAGENT AUTO MICROSCOP Y RADEX ABD 25610 [facility] 8 MEDICAL [facility]O AQT ABD IMAGING W/S/E/D ASSOCIATE VIEWS 1 S VIEW CH SUSCEPTIB 49048 [facility] LTY STDY 8 [facility] ANTIMICRB INC INC IAL MICRO/AGA R DILUTJ COMPREHEN 55616 [facility] SIVE 8 [facility] METABOLIC INC INC PANEL BLOOD 98676 [facility] COUNT 8 [facility] COMPLETE INC INC AUTO&AUTO DIFRNTL WBC CULTURE 88248 [facility] BCT 8 [facility] ISOL&PRSM INC INC PTV ID ISOLATE EA URINE CULTURE 37387 [facility] BACTERIAL 8 [facility] MEM [...] WERED 8 CARE CLUB CARE CLUB DEVICE [employer] FOR LANCET EACH NORMAL A4256 DIABETES DIABETES LOW AND 8 [facility] CARE [facility] [employer] CALIBRATO R SOLUTION/ CHIPS LANCETS A4259 DIABETES DIABETES PER BOX 8 [facility] OF 100 [facility] BLD GLU A4253 DIABETES DIABETES TEST/REAG 8 C[facility] CARE CL[facility] T [facility] HOME BLD GLU MON-50 HOME E0607 DIABETES DIABETES BLOOD 8 CARE CL[facility] CARE CLUB GLUCOSE [facility] MONIT[facility] O2 CONC 1 E1390 EVELYN RIVAS [place] 8 HOME HOME 85%/>02 MEDICAL MEDICAL CONC AT EQUIPMENT EQUIPMENT PRSC FLW RATE PRTBLE E0431 EVELYN RIVAS GASEOUS 8 HOME HOME O2 SYS MEDICAL MEDICAL RENT; EQUIPMENT EQUIPMENT FLWMTR HUMIDFR&M ASK LIPID 74257 [facility] PANEL 8 [facility] H[facility] I SI&R 55956 [facility] F/NJX PX 8 ORTH, DURING CARDIOLOG [place] C-CATHJ Y PULM&/OR CONSULTAN SELECT T L HRT 15168 [facility] CATHETERI 8 ORTH, ZATION CARDIOLOG [place] RETROGRAD Y [place] [address] [facility] C-CATHJ 8 ORTH, F/SLCTV C CARDIOLOG [place] ANGRPH Y CONSULTAN T GLUCOSE 54994 [facility] BLOOD 8 [facility]P STRIP COLLECTIO 92397 [facility] N VENOUS 8 [facility] BLOOD HOSP HOSP VENIPUNCT URE I SI&R 74846 [facility] F/NJX PX 8 [facility] HOSP C-CATHJ VENTR&/AT R ANGRPH INJECTION 66613 [facility] CARDIAC 8 ORTH, CATHJ L CARDIOLOG [place] VENTR/L Y ATR CONSULTAN ANGIOGRAP T H ANGIOCARD 8853 [facility] IOGRAPHY 8 [facility] OF LEFT HOSP HOSP HEART STRUCTURE S LEFT 3722 [facility] HEART 8 [facility] CARDIAC [facility] HOSP CATHETERI ZATION CORONARY 8856 [facility] ARTERIOGR 8 [facility] APHY [facility]OS[facility] HOSP USING TWO CATHETERS BASIC 09808 [facility] METABOLIC 8 [facility] PANEL [facility] HOSP CALCIUM TOTAL COLLECTIO 16412 [facility] N VENOUS 8 [facility] BLOOD HOSP HOSP VENIPUNCT URE ECG 93834 [facility] ROUTINE 8 ORTH, ECG CARDIOLOG MARIANA W/LEAST Y 12 LDS CONSULTAN I&R ONLY T RADIOLOGI 31088 [facility] C EXAM 8 [facility] CHEST 2 HOSP HOSP VIEWS FRONTAL&L ATERAL BLOOD 01889 [facility] COUNT 8 [facility] COMPLETE HOSP HOSP AUTOMATED ECG 71993 [facility] ROUTINE 8 [facility] PROT[facility] ECG HOSP HOSP W/LEAST 12 LDS TRCG [...] AT EQUIPMENT EQUIPMENT PRS FLW RATE CYTP 75235 [facility] WESLY, CERV/VAG 8 [place] INC MAR P AUTO THIN LAYER PREP MNL SCREEN RADIOLOGI 39392 BRANDON TAYLOR C 8 [facility] HOSP EXAMINATI INC INC ON CHEST SINGLE VIEW FRONTAL AMB A0427 [facility] SERVICE 8 AMBULANCE AMBULANCE ALS SERVICE SERVICE EMERGENCY TRANSPORT LEVEL 1 CREATINE 67989 BRANDON TAYLOR KINASE 8 [facility] TOTAL INC INC CREATINE 01430 BRANDON TAYLOR KINASE MB 8 [facility] [place] [address] BR[facility]ON TAYLOR TROPONIN 8 [facility] QUANTITAT INC INC ANNABELLA AMB A0422 JULEE LADD OXYGEN&O2 8 AMBULANCE AMBULANCE SUPPLIES SERVICE SERVICE LIFE SUSTAININ G SITUATION ECG 11099 BRANDON TAYLOR ROUTINE 8 [facility] ECG INC INC W/LEAST 12 LDS TRCG ONLY W/O I&R ECG 33936 BRANDON LEMUS ROUTINE 8 [facility] W/LEAST PROF SERV 12 LDS I&R ONLY BLOOD 60545 BRANDON TAYLOR COUNT 8 [facility] COMPLETE INC INC AUTO&AUTO DIFRNTL WBC BASIC 12865 BRANDON TAYLOR METABOLIC 8 [facility] PANEL INC INC CALCIUM TOTAL RHYTHM 15660 BRANDON TAYLOR ECG 1-3 8 [facility] LEADS INC INC TRACING ONLY W/O I&R GROUND A0425 JULEE LADD MILEAGE 8 AMBULANCE AMBULANCE PER SERVICE SERVICE STATUTE MILE PRTBLE E0431 EVELYN RIVAS GASEOUS 8 HOME HOME O2 SYS MEDICAL MEDICAL RENT; EQUIPMENT EQUIPMENT FLWMTR HUMIDFR&M ASK O2 CONC 1 E1390 EVELYN GUZMAN PORT 8 HOME HOME 85%/>02 MEDICAL MEDICAL CONC AT EQUIPMENT EQUIPMENT PRS FLW RATE DOPPLER 94838 BRANDON LEMUS ECHOCARD 8 [facility] KANNAN WAVE PROF SERV W/SPECTRA L DISPLAY DOP 46202 BRANDON LEMUS ECHOCARD 8 [facility] KANNAN FLOW PROF SERV VELOCITY MAPPING ECHO 55450 BRANDON TAYLOR TRANSTHOR 8 [facility] AC R-T 2D INC INC W/WO M-MODE REC COMP INITIAL 77501 [place] SCOTTY OBSERVATI 8 [facility] ON INTERNAL [place] [facility] FOR INCURABLES CARE/DAY MED 30 MINUTES RADIOLOGI 85520 [place] José MÉNDEZ EXAM 8 MEDICAL RACHEL P CHEST 2 IMAGING VIEWS ASSOCIATE FRONTAL&L S ATERAL NJX 75219 CARIN DEL ROSARIO ANES&/STR 8 ERVIN Pichardo JLuis Carlos NRV CRV/THRC 1 LVL FLUOR 09460 CARIN DEL ROSARIO, NEEDLE/CA 8 ERVIN Nunn TH SPINE/PAR ASPINAL DX/THER [place] NJX [address]959 CARIN DEL ROSARIO ANES&/STR 8 ERVIN RICARDO NRV CRV/THRC EA LVL COMPREHEN 23179 BRANDON TAYLOR SIVE 8 [facility] [place] [address] BRANDON TAYLOR THYROID 8 [facility] STIMULATI INC INC NG HORMONE TSH 25 47179 BRANDON TAYLOR HYDROXY 8 [facility] INCLUDES [place] [address] BR[facility]ON TAYLOR THYROXINE 8 [facility] TOTAL INC INC THROMBOPL 96065 BRANDON TAYLOR ASTIN 8 [facility] TIME INC INC PARTIAL PLASMA/WH OLE BLOOD THYROID 03644 BRANDON TAYLOR HORM 8 [facility] UPTK/THYR INC INC OID HORMONE BINDING RATIO ECG 60154 BRANDON LEMUS ROUTINE 8 [facility] W/LEAST PROF SERV 12 LDS I&R ONLY PROTHROMB 01907 BRANDON TAYLOR IN TIME 8 [facility]OS[facility] INC INC BLOOD 42001 BRANDON TAYLOR COUNT 8 MEM [facility]OS[facility] HOSP COMPLETE INC INC AUTO&AUTO DIFRNTL WBC ECG 70661 BRANDON TAYLOR ROUTINE 8 MEM HOSP MEM HOSP ECG INC INC W/LEAST 12 LDS TRCG ONLY W/O I&R O2 CONC 1 E1390 EVELYN GUZMAN PORT 8 HOME HOME 85%/>02 MEDICAL MEDICAL CONC AT EQUIPMENT EQUIPMENT PRSC FLW RATE PRTBLE E0431 EVELYN RIVAS GASEOUS 8 HOME HOME O2 SYS MEDICAL MEDICAL RENT; EQUIPMENT EQUIPMENT FLWMTR HUMIDFR&M ASK THERAPEUT 40272 KAVYA HOFF, ACTVITY 8 ERVIN Huffman DIRECT PT CONTACT EACH 15 MIN APPL 25872 KAVYA HOFF, MODALITY 8 ERVIN Huffman 1/> AREAS 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 L CHIROPRAC 56841 KAVYA HOFF, TIC 8 ERVIN Huffman MANIPULAT ANNABELLA [place] SPINAL 3-4 REGIONS APPLICATI 78047 KAVYA HOFF, ON 8 ERVIN Huffman MODALITY 1/> AREAS HOT/COLD PACKS APPLICATI 88366 KAVYA HOFF, ON 8 ERVIN Huffman MODALITY 1/> AREAS HOT/COLD PACKS THERAPEUT 80745 KAVYA HOFF, ACTVITY 8 ERVIN Huffman DIRECT PT CONTACT EACH 15 MIN CHIROPRAC 05923 KAVYA HOFF, TIC 8 ERVIN Huffman MANIPULAT ANNABELLA [place] SPINAL 3-4 REGIONS APPL 38449 KAVYA HOFF, MODALITY 8 ERVIN Huffman 1/> AREAS 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 L APPLICATI 68772 KAVYA HOFF, ON 8 ERVIN Huffman MODALITY 1/> AREAS HOT/COLD PACKS THERAPEUT 80951 KAVYA HOFF, ACTVITY 8 ERVIN Huffman DIRECT PT CONTACT EACH 15 MIN CHIROPRAC 34241 KAVYA HOFF, TIC 8 ERVIN Huffman MANIPULAT ANNABELLA [place] SPINAL 3-4 REGIONS APPL 37734 KAVYA HOFF, MODALITY 8 ERVIN Huffman 1/> AREAS 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 L CV STRS 58348 LEONA SOLIS TST 8 HEART & NEZAR M XERS&/OR VASCULAR RX CONT ASSOC ECG I&R ONLY HOSPITAL G0378 BRANDON TAYLOR OBSERVATI 8 [facility] ON INC INC SERVICE PER HOUR MYOCRD 76696 LEONA SOLIS PRFUJ IMG 8 HEART & NEZAR M TOMOG VASCULAR SPECT OIL DIPPER ASSOC STD CV STRS 68757 BRANDON TAYLOR TST 8 MEM [facility]OS[facility] XERS&/OR INC INC RX CONT ECG TRCG ONLY CV STRS 43537 LEONA SOLIS TST 8 HEART & NEZAR M XERS&/OR VASCULAR RX CONT ASSOC ECG W/O I&R MYOCRD 00714 LEONA SOLIS PRFUJ STD 8 HEART & NEZAR M WALL VASCULAR MOTION ASSOC QUAL/CASSANDRA STD TECHNETIU A9500 BRANDON Wayne TC-99M 8 MEM HOS[facility]OS[facility] SESTAMIBI INC INC DX PER STUDY DOSE MYOCRD 76614 BRANDON TAYLOR PRFUJ STD 8 MEM [facility]OS[facility]OS[facility] EJEC FXJ INC INC OBSERVATI 89015 [place] RAEANN ON CARE 8 [facility] INTERNAL MED MANAGEMEN T GLUC BLD 60380 BRANDON TAYLOR GLUC MNTR 8 [facility] DEV INC INC CLEARED FDA SPEC HOME USE LIPID 94942 BRANDON TAYLOR PANEL 8 [facility] INC INC ECG 47879 BRANDON CARY, ROUTINE 8 [facility] W/LEAST PROF SERV 12 LDS I&R ONLY GLUC BLD 86608 BRANDON TAYLOR GLUC MNTR 8 [facility] DEV INC INC CLEARED FDA SPEC HOME USE BASIC 38271 BRANDON TAYLOR METABOLIC 8 [facility] PANEL INC INC CALCIUM TOTAL GROUND A0425 [facility] AMBULANCE AMBULANCE PER SERVICE SERVICE STATUTE MILE BLOOD 37884 BRANDON TAYLOR COUNT 8 [facility]OS[facility] COMPLETE INC INC AUTO&AUTO DIFRNTL WBC INITIAL 06261 [place] SCOTTY OBSERVATI 8 ZACKERY , ON INTERNAL KANNAN F CARE/DAY MED 30 [place] [address] BRANDON TAYLOR TROPONIN 8 [facility]OS[facility] QUANTITAT INC INC ANNABELLA RHYTHM 41911 BRANDON TAYLOR ECG 1-3 8 [facility] LEADS INC INC TRACING ONLY W/O I&R IV NFUS 02770 BRANDON TAYLOR THER 8 [facility] PROPH/DX INC INC EA HR CREATINE 75279 BRANDON TAYLOR KINASE 8 [facility] TOTAL INC INC AMB A0427 [facility] SERVICE 8 AMBULANCE AMBULANCE ALS SERVICE SERVICE EMERGENCY TRANSPORT LEVEL 1 IV NFS 67765 BRANDON TAYLOR THER 8 [facility] PROPH/DX INC INC 1ST >1 HR RADIOLOGI 96654 José DUKES 8 MEDICAL RACHEL Nunn EXAMINATI IMAGING ON CHEST ASSOCIATE SINGLE S [place]IEW FRONTAL ECG 50140 BRANDON TAYLOR ROUTINE 8 [facility] ECG INC INC W/LEAST 12 LDS TRCG ONLY W/O I&R CREATINE 57746 BRANDON TAYLOR KINASE MB 8 MEM HOSP [...] RENT; EQUIPMENT EQUIPMENT FLWMTR HUMIDFR&M ASK BLOOD 38683 BRANDON TAYLOR COUNT 8 [facility] COMPLETE INC INC AUTO&AUTO DIFRNTL WBC NDL EMG 2 28933 SAMANTA ENGLAND, OSWALDOR W/WO 8 CHUCK CHUCK RELATED PARASPINA L AREAS HEMOGLOBI 44688 BRANDON TAYLOR N 8 [facility] GLYCOS[place] [address] BRANDON TAYLOR FOLIC 8 [facility] [place] [address] BRANDON BRANDON THYROXINE 8 [facility] TOTAL INC INC RHEUMATOI 42479 BRANDON TAYLOR D FACTOR 8 [facility] [place] [address] BRANDON BRANDON THYROID 8 [facility] STIMULATI INC INC NG HORMONE TSH SYPHILIS 80486 BRANDON BRANDON TEST 8 [facility] NON-TREPO INC INC NEMAL ANTIBODY QUAL NRV CNDJ 23586 SAMANTA ENGLAND, AMPLT&LAT 8 CHUCK HAYWARDY EA NRV MOTOR W/F-WAVE STD COMPREHEN 18062 BRANDON TAYLOR SIVE 8 [facility] METABOLIC INC INC PANEL NRV CNDJ 34832 SAMANTA ENGLAND, AMPLITUDE 8 CHUCK WOODS & [place] [address] BRANDONKATI TAYLOR THIAMINE- 8 [facility] VITAMIN INC INC B-1 CYANOCOBA 85799 BRANDON TAYLOR PRATEEK 8 [facility] VITAMIN INC INC B-12 O2 CONC 1 E1390 EVELYN RIVAS DEL PORT 8 HOME HOME 85%/>02 MEDICAL MEDICAL CONC AT EQUIPMENT EQUIPMENT PRSC FLW RATE PRTBLE E0431 EVELYN RIVAS GASEOUS 8 HOME HOME O2 SYS MEDICAL MEDICAL RENT; EQUIPMENT EQUIPMENT FLWMTR HUMIDFR&M ASK Encounters Encounter Start End Date Code Location Performer Type Date [place] [facility]ON - 7 7 [facility]81 BR[facility]ON 7 7 [facility] VISIT HIGH/URGE NT SEVERITY HOSPITAL BR[facility]ON - 7 7 [facility] - OTHER 7 7 [facility] - OTHER 7 7 [facility] - 7 7 [facility] BRANDON - 7 7 [facility] OUTPATIEN INC T OFFICE 71456 [facility] OUTPATIEN 7 7 PHYSICIAN T VISIT GROUP 15 MINUTES OFFICE 11641 BUNNY PULLIAM OUTPATIEN 7 7 MEDICAL ASTELLANO T NEW 30 SERV S MINUTES [facility] OUTPATI[facility] BRANDON - 7 7 [facility] INC T OFFICE 26055 [facility] OUTPATIEN 7 7 PHYSICIAN T VISIT S GROUP 15 MINUTES EMERGENCY 93599 [facility] 7 7 [facility] T VISIT PHYS HIGH/URGE NT SEVERITY EMERGENCY 57389 BRANDON 7 7 [facility] T VISIT LOW/MODER SEVERITY EMERGENCY 66222 LEIGHT[facility] SHAH DEPT 7 7 PHYSICIAN VISIT S[facility] HIGH SEVERITY& THREAT [facility] BRANDON - 7 7 [facility] - 7 7 [facility] EMERGENCY 35048 BRANDON 7 7 [facility] T VISIT HIGH/URGE NT SEVERITY EMERGENCY 25470 LEIGHTON PEDROZA DEPT 7 7 PHYSICIAN [facility]ISIT S, [facility]& THREAT [facility] BR[facility]ON - 7 7 [facility] INC HOSPITAL BRANDON - OTHER 7 7 [facility] BRANDON - 7 7 [facility] OUTPATIEN INC T EMERGENCY 27534 BRANDON 7 7 [facility] T VISIT MODERATE SEVERITY EMERGENCY 09353 LEIGHTON LOPEZ 7 7 PHYSICIAN DEPARTMEN S, [facility] T VISIT HIGH/URGE NT SEVERITY OFFICE 14548 BRANDON LUIS OUTPATIEN [address] MINUTES [facility] BRANDON - OTHER 7 7 [facility] EMERGENCY 07765 BR[facility] 7 7 [facility] VISIT LOW/MODER SEVERITY EMERGENCY 33729 LEIGHTON SINGH DEPT 7 7 PHYSICIAN VISIT S, [facility] HIGH SEVERITY& THREAT [facility] BRANDON - 7 7 [facility] BRAND[facility] - 7 7 [facility] BR[facility] - 7 7 [facility] EMERGENCY 87498 [facility] 7 7 [facility] VISIT LOW/MODER SEVERITY EMERGENCY 87567 LEIGHTON PEDROZA DEPT 7 7 PHYSICIAN VISIT S, [facility] HIGH SEVERITY& THREAT [facility] HOSPITAL BRNADON - OTHER 7 7 [facility] BRANDON - 7 7 [facility] BRAND[facility] - 7 7 [facility] BRANDON - 6 6 [facility]EN [facility] EMERGENCY 54124 LEIGHTON PEDROZA 6 6 PHYSICIAN DEPARTMEN S, [facility] T VISIT HIGH/URGE NT SEVERITY HOSPITAL BRANDON - 6 6 [facility]PATIEN [facility] EMERGENCY 17691 BRANDON 6 6 [facility] VISIT LOW/MODER SEVERITY OFFICE 22329 [facility] OUTPATIEN 6 6 PHYSICIAN T VISIT S GROUP 25 MINUTES HOSPITAL BRANDON - 6 6 [facility] BRANDON - 6 6 [facility]EN [facility] EMERGENCY 34267 [facility]ON 6 6 [facility] T VISIT LOW/MODER SEVERITY EMERGENCY 52753 LEIGHTON PEDROZA 6 6 PHYSICIAN ILIR Oleary [facility] T VISIT HIGH/URGE NT SEVERITY HOSPITAL BRANDON - 6 6 [facility] OUTPATIEN [facility] T OFFICE 57888 [facility] LORIE MCNALLY OUTPATISABRINA 6 6 PHYSICIAN Luis Carlos NEW 45 S GROUP MINUTES EMERGENCY 44507 LEIGHTON PEDROZA 6 6 PHYSICIAN ILIR DANIELS S [facility] T VISIT HIGH/URGE NT SEVERITY EMERGENCY 76763 LEIGHTON JHAVERI 6 6 PHYSICIAN FRANCES Oleary [facility] T VISIT HIGH/URGE NT SEVERITY HOSPITAL BRANDON - 6 6 [facility] OUTPATIEN [facility] EMERGENCY 01473 BRANDON 6 6 [facility] T VISIT LOW/MODER SEVERITY HOSPITAL BRANDON - 6 6 [facility]EN [facility] OFFICE 43897 [facility] 6 6 [facility] NEW 30 ANKLE CE MINUTES HOSPITAL BRANDON - 6 6 [facility] OUTPATIEN [facility] EMERGENCY 63190 BRANDON 6 6 [facility] T VISIT LOW/MODER SEVERITY EMERGENCY 83820 LEIGHTON SHAH 6 6 PHYSICIAN SHANTHI Oleary [facility] T VISIT HIGH/URGE NT SEVERITY HOSPITAL BRANDON - 6 6 [facility] OUTPATIEN [facility] BRANDON - 6 6 [facility] OUTPATIEN [facility] T EMERGENCY 58880 LEIGHTON MARTINEZ 6 6 PHYSICIAN JR GINA DANIELS S [facility] T VISIT HIGH/URGE NT SEVERITY EMERGENCY 12353 BRANDON 6 6 [facility] T VISIT LOW/MODER SEVERITY HOSPITAL BRANDON - 6 6 [facility] OUTPATIEN INC T OFFICE 83878 [facility] KEREN ALMAGUER OUTPATIEN 6 6 PHYSICIAN T VISIT S GROUP 10 MINUTES HOSPITAL BRANDON - 6 6 [facility] OUTPATIEN INC T EMERGENCY 61309 LEIGHTON MAC 6 6 PHYSICIAN U ANITA DEPARTMEN S, [facility] T [facility] HIGH/URGE NT SEVERITY EMERGENCY 54137 BR[facility] 6 6 [facility] T VISIT LOW/MODER SEVERITY HOSPITAL BRANDON - 6 6 [facility] OUTPAT[facility]EN [facility] T EMERGENCY 93294 LE[facility] SHAH 6 6 [facility], [facility] T VISIT HIGH/URGE NT SEVERITY EMERGENCY 90564 BRANDON 6 6 [facility] T VISIT LIMITED/M INOR PROB OFFICE 89070 [facility] 6 6 PHYSICIAN JERRY T VISIT S GROUP 10 MINUTES HOSPITAL BRANDON - 6 6 [facility] OUTPAT[facility]EN [facility] T EMERGENCY 66951 BRANDON 6 6 [facility] T VISIT LOW/MODER SEVERITY HOSPITAL BRANDON - 6 6 [facility] OUTPAT[facility]EN [facility] T OFFICE 05669 EVELYN HALLMAN JAMES OUTPATIEN 6 6 [facility] 10 MINUTES HOSPITAL BRANDON - OTHER 6 6 [facility] HOSPITAL BRANDON - OTHER 6 6 [facility] BRANDON - OTHER 5 5 [facility] HOSPITAL BRANDON - 5 5 [facility] OUTPATIEN [facility] T EMERGENCY 01438 LE[facility] SHAH DEPT 5 5 PHYSICIAN SHANTHI VISIT S, [facility] HIGH SEVERITY& THREAT FUNCJ EMERGENCY 59423 BR[facility]ON 5 5 [facility] T VISIT MODERATE SEVERITY HOSPITAL BR[facility]ON - 5 5 [facility]EN [facility] EMERGENCY 90307 LEIGHTON SHAH 5 5 PHYSICIAN [facility] S, [facility] T VISIT HIGH/URGE NT SEVERITY EMERGENCY 14932 LEIGHTON MAC 5 5 PHYSICIAN U ANITA [facility] S, [facility] T VISIT HIGH/URGE NT SEVERITY OFFICE 72595 [facility] [facility] 5 5 [facility] T VISIT INTERNAL 15 MED MINUTES EMERGENCY 37188 LEIGHTON SHAH DEPT 5 5 PHYSICIAN SHANTHI VISIT S, [facility] HIGH SEVERITY& THREAT FUNCJ EMERGENCY 60303 RB[facility]ON 5 5 [facility] T VISIT HIGH/URGE NT SEVERITY HOSPITAL BRANDON - 5 5 [facility] BR[facility] - 5 5 [facility] - 5 5 [facility] - 5 5 [facility] - 5 5 [facility] EMERGENCY 57946 LEIGHTON SHAH 5 5 PHYSICIAN [facility] S, [facility] T VISIT HIGH/URGE NT SEVERITY EMERGENCY 42008 BRANDON 5 5 [facility] T VISIT LOW/MODER SEVERITY OFFICE 44839 [place] [facility] 5 5 MEDICAL AYANANE T VISIT SERV ACH 25 FOUNDATIO MINUTES HOSPITAL BRANDON - 5 5 [facility] BR[facility] - OTHER 5 5 [facility] EMERGENCY 20918 BRANDON MARTINEZ, 5 5 [facility] T VISIT P HIGH/URGE NT SEVERITY HOSPITAL BRANDON - 5 5 [facility] OUTPATIEN INC T OFFICE 91271 [place] SOURIANAR OUTPATIEN 5 5 MEDICAL AYANANE T VISIT SERV ACH 25 FOUNDATIO MINUTES [facility] BRANDON [facility] 5 5 [facility] T EMERGENCY 64986 [facility] MENARD [facility] [address] [facility] EMERGENCY ROOM T VISIT P HIGH/URGE NT SEVERITY OFFICE 34134 [facility] OUT[facility]IEN 4 4 PHYSICIAN JAM T VISIT S GROUP 25 MINUTES EMERGENCY 78610 [facility] 4 4 [facility] INC T VISIT LOW/MODER SEVERITY [facility]OSPITAL [facility] - 4 4 [facility] T EMERGENCY 60446 [facility] [address] [facility] EMERGENCY T VISIT PHYS MODERATE SEVERITY OFFICE 85215 EAR, NOSE SHASHY OUTPATIEN 4 4 AND SOBEIDA T VISIT THROAT 25 SPECIAL MINUTES OFFICE 15913 MARNI MARNI OUTPATIEN 4 4 LUIS ALFREDO LUIS ALFREDO T VISIT 25 MINUTES OFFICE 64936 EAR, NOSE SHASHY OUTPATIEN 4 4 AND SOBEIDA T VISIT THROAT 25 SPECIAL MINUTES [facility]OSPITAL [facility] - 4 4 [facility] INC T OFFICE 30251 [place] OUTPATI[place] 4 4 MEDICAL AYANANE T VISIT SERV ACH 25 FOUNDATIO MINUTES HOSPITAL UNIVERSIT - 4 4 [facility] T EMERGENCY 93720 DOM VICTORIA 4 4 [facility] EMERGENCY T VISIT PHYS HIGH/URGE NT SEVERITY HOSPITAL UNIVERSIT - 4 4 Y [facility]GOOD [facility] H[facility]PITAL T OFFICE 67717 [facility] OUTPATIEN 4 4 DERMATOLO DERMATOLO T NEW 30 GY GY MINUTES HOSPITAL [facility] 4 4 [facility]EN [facility] - 4 4 [facility] BR[facility] - 4 4 [facility] OUT[facility]IEN [facility] UNIVERSIT [facility] OTHER 4 4 Y [facility] UNIVERSIT - [address] [facility] EMERGENCY 44803 UNIVERSIT 4 4 [facility] VISIT [facility]IGH/URGE NT SEVERITY [facility] BR[facility] - OTHER 4 4 [facility] EMERGENCY 39578 [facility] DEPT 4 4 KAMAR VISIT EMERGENCY HIGH PHYS [facility]VERITY& THREAT [facility] BRANDON - 4 4 [facility] OUTPATIEN [facility] - Sue 4 [facility] BRANDON - DHARMESH 4 4 [facility] INC OFFICE 17168 [place] NATACHA PHI OUTPATIEN 4 4 MEDICAL T NEW 30 SERV [facility] OFFICE 31736 BR[facility] MIRANDA OUTPATIEN 4 4 [facility] 15 P MINUTES [facility] - 4 4 [facility]EN [facility] EMERGENCY 72068 MARLO SHAH DEPT 4 4 EMERGENCY SHANTHI VISIT SERVICES HIGH SEVERITY& THREAT [facility] OFFICE 85951 [facility] GARO OUTPATIEN 4 4 NEUROLOGY FERNANDEZ T NEW 45 [facility] BR[facility] Tran 4 4 [facility] BRANDON - 4 4 [facility] BRANDON - 4 4 [facility] OUTPATIEN [facility] Emergency WALLY Shah MD (ER) 3 00:03 3 00:46 [facility] EMERGENCY 14725 MARLO SHAH DEPT 3 3 EMERGENCY SHANTHI VISIT SERVICES HIGH SEVERITY& THREAT [facility] BRANDON - 3 3 [facility] OUTPATIEN INC OFFICE 42244 [facility] RUBEN OUTPATIEN 3 3 [facility] 10 P MINUTES [facility] - 3 3 [facility]PATIEN INC [facility] - 3 3 [facility] OUTPATIEN INC OFFICE 95250 [facility] MIRANDA OUTPATIEN 3 3 [facility] 10 P MINUTES [facility] BR[facility] - 3 3 [facility] OUTPATI[facility] INC Emergency WALLY Shah MD (ER) 3 18:37 3 21:35 [facility] BRANDON - 3 3 [facility] OUTPATIEN INC EMERGENCY 23332 [facility] 3 3 [facility] DEPARTMEN [facility] T VISIT LOW/MODER SEVERITY EMERGENCY 30278 MARLO COTTO DEPT 3 3 EMERGENCY BRO VISIT SERVICES HIGH SEVERITY& THREAT [facility] OFFICE 18502 MARNI MICHELLEHBURN OUTPATIEN 3 3 LUIS ALFREDO LOBATO T VISIT 15 MINUTES HOSPITAL [facility] - 3 3 [facility]PATIEN INC [facility]PITAL [facility] - 3 3 [facility] OUTPATIEN [facility] T OFFICE 17505 MARNI MARNI OUTPATIEN 3 3 LUIS ALFREDO LOBATO T VISIT 25 MINUTES [facility] T OFFICE 39167 [facility] MCKEMIE OUTPATIEN 3 3 ZACKERY HUMPHREYS T VISIT INTERNAL 15 MED MINUTES [facility] T OFFICE 92211 MARNI MARNI OUTPATIEN 3 3 LUIS ALFREDO LOBATO T VISIT 40 MINUTES [facility] T OFFICE 01798 [facility] MCKEM[facility] OUTPATIEN 3 3 ZACKERY HUMPHREYS T VISIT INTERNAL 15 MED MINUTES [facility] T OFFICE 32761 [facility] MUSTAPHA OUTPATIEN 3 3 ZACKERY ZHAO T VISIT INTERNAL 15 MEDI MINUTES OFFICE 85217 [facility] MCKEMIE OUTPATIEN 3 3 ZACKERY HUMPHREYS T VISIT INTERNAL 15 MED MINUTES OFFICE 84820 [facility] MCKEMIE OUTPATIEN 3 3 ZACKERY HUMPHREYS T VISIT INTERNAL 15 MED MINUTES OFFICE 46002 [place] MUSTAPHA OUTPATIEN 3 3 ZACKERY ZHAO T VISIT INTERNAL 15 MEDI MINUTES [facility] T OFFICE 47261 [facility] MCKEMIE OUTPATIEN 3 3 ZACKERY HUMPHREYS T VISIT INTERNAL 15 MED MINUTES [facility] 3 [facility] T OFFICE 55115 [facility] MUSTAPHA OUTPATIEN 3 3 ZACKERY ZHAO T VISIT INTERNAL 15 MEDI MINUTES [facility] T OFFICE 22443 [facility] 3 3 PHYSICIAN LUCITA T NEW 30 S GROUP MINUTES OFFICE 31219 [facility] OUTPATIEN 3 3 [facility] CECE T VISIT INTERNAL 15 MEDI MINUTES [facility] T OFFICE 27835 [facility] [place] OUTPATIEN 3 3 ZACKERY CECE T VISIT INTERNAL 15 MEDI MINUTES OFFICE 89465 MARNI MARNI OUTPATIEN 3 3 LUIS ALFREDO LUIS ALFREDO T VISIT 25 MINUTES OFFICE 88353 MARNI MANRI OUTPATIEN 3 3 LUIS ALFREDO LUIS ALFREDO T VISIT 25 MINUTES OFFICE 77517 [facility] [place] OUTPATIEN 3 3 NEW ROCHELLE CECE T VISIT INTERNAL 15 MEDI MINUTES [facility] T OFFICE 24815 [facility] OUT[facility] 3 3 [facility] 30 HOSPITAL MINUTES P OFFICE 03789 [place] MUSTAPHA OUTPATIEN 3 3 NEW ROCHELLE CECE T VISIT INTERNAL 15 MEDI MINUTES OFFICE 27887 [facility] MCKEMIE OUTPATIEN 3 3 ZACKERY HUMPHREYS T VISIT INTERNAL 15 MED MINUTES [facility] 3 [facility] INPATIENT INC OFFICE 27779 [place] OUTPATIEN 3 3 NEW ROCHELLE CECE T VISIT INTERNAL 15 MEDI MINUTES [facility] T EMERGENCY 08155 MARLO DHALIWAL 2 2 EMERGENCY [facility] SERVICES T VISIT HIGH/URGE NT SEVERITY OFFICE 78465 [place] MCK[facility] OUTPATIEN 2 2 ZACKERY HUMPHREYS T VISIT INTERNAL 15 MED MINUTES [facility] 2 [facility] T OFFICE 52614 [facility] BAZZI OUTPATIEN 2 2 [facility] 15 MINUTES OFFICE 98800 [facility] BAZZI OUTPATIEN 2 2 [facility] 15 MINUTES HOSPITAL CEN[facility]AL - 2 2 [facility] T EMERGENCY 86649 [facility] MARCELINO DEPT 2 2 KAMAR DEIDRA VISIT EMERGENCY HIGH PHYS SEVERITY& THREAT FUNCJ OFFICE 75853 [facility]IZ[facility] BAZZI OUTPATIEN 2 2 [facility] 15 MINUTES OFFICE 37407 [facility] BAZZI OUTPATIEN 2 2 [facility] 15 MINUTES OFFICE 00087 [facility] BAZZI OUTPATIEN 2 2 [facility] V[facility] C[facility] 15 MINUTES OFFICE 17991 [facility] PALOMO OUTPATIEN 2 2 L SURGIAL CATRACHITO T NEW 45 MINUTES ASSOCIATE OFFICE 16523 H[facility]IZON BAZZI OUTPATIEN 2 2 [facility] T NEW 45 E CENTER MINUTES EMERGENCY 01481 [facility] 2 2 [facility] DEPARTMEN EMERGENCY T VISIT SERVI HIGH/URGE NT SEVERITY OFFICE 84379 José LYONS OUTPATIEN 2 2 ELOY GAMBOA T VISIT MD [facility] 25 MINUTES OFFICE 93649 [place] MUSTAPHA OUTPATIEN 2 2 [facility] T VISIT INTERNAL 15 MEDI MINUTES [facility] - 2 2 [facility] - 2 2 [facility] T OFFICE 72764 [place] MCK[facility] OUTPATIEN 2 2 [facility] PETR T VISIT INTERNAL 15 MED MINUTES HOSPITAL UNIVERSIT - 2 2 Y OUTPATIEN HOSPITAL T EMERGENCY 87825 UNIVERSIT DEPT 2 2 Y VISIT HOSPITAL HIGH SEVERITY& THREAT FUNCJ EMERGENCY 81876 [facility] 2 2 [facility] DEPARTMEN INC T VISIT HIGH/URGE NT SEVERITY [facility] - 2 2 [facility] T EMERGENCY 96727 MARLO FATIMA DEPT 2 2 EMERGENCY PETR VISIT SERVICES HIGH SEVERITY& THREAT [facility] OFFICE 09266 [place] MCKEMIE OUTPATIEN 2 2 ZACKERY HUMPHREYS T VISIT INTERNAL 15 MED MINUTES EMERGENCY 18491 MARLO SHAH DEPT 2 2 EMERGENCY SHANTHI VISIT SERVICES HIGH SEVERITY& THREAT [facility] - 2 2 [facility] T EMERGENCY 41784 [facility] 2 2 [facility] DEPARTMEN INC T VISIT HIGH/URGE NT SEVERITY OFFICE 14182 [facility] BESSON OUTPATIEN 2 2 [facility] T VISIT INTERNAL 15 MED MINUTES [facility] - 2 2 [facility] T EMERGENCY 47616 MARLO SHAH 2 2 [facility] DEPARTMEN SERVICES T VISIT HIGH/URGE NT SEVERITY [facility] - 2 2 [facility] T EMERGENCY 63710 [facility] 2 2 [facility] DEPART[facility] INC T VISIT MODERATE SEVERITY OFFICE 04027 [facility] [facility] OUTPATIEN 2 2 ZACKERY HUMPHREYS T VISIT INTERNAL 15 MED MINUTES OFFICE 89999 [facility] BESSON OUTPATIEN 2 2 [facility] T VISIT INTERNAL 25 MED MINUTES [facility] - 2 2 [facility] T OFFICE 93954 MARNI MARNI OUTPATIEN 2 2 LUIS ALFREDO LUIS ALFREDO T VISIT 25 MINUTES [facility] - 2 2 [facility] T EMERGENCY 05576 [facility] 2 2 [facility] DEPARTMEN INC T VISIT MODERATE SEVERITY [facility] - 2 2 [facility] - 2 2 [facility] T OFFICE 07041 MARNI MARNI OUTPATIEN 2 2 LUIS ALFREDO LOBATO T NEW 45 MINUTES OFFICE 46099 [facility] OUTPATIEN 2 2 ZACKERY ZHAO T VISIT INTERNAL 15 MEDI MINUTES OFFICE 38173 [facility] OUTPATIEN 2 2 ZACKERY CECE T VISIT INTERNAL 15 MEDI MINUTES OFFICE 43308 [facility] [facility] OUTPATIEN 2 2 ZACKERY CECE T VISIT INTERNAL 10 MEDI MINUTES EMERGENCY 62117 MARLO AKERS DEPT 2 2 EMERGENCY VISIT SERVICES HIGH SEVERITY& THREAT FUNJ EMERGENCY 08574 [facility] 2 2 [facility] DEPARTMEN INC T VISIT HIGH/URGE NT SEVERITY [facility] - 2 2 [facility] T OFFICE 24222 [place] MCK[facility] OUTPATIEN 2 2 ZACKERY HUMPHREYS T VISIT INTERNAL 15 MED MINUTES OFFICE 07631 KENZIE ESPINO OUTPATIEN 2 2 LUCITA LANDRUM T NEW 60 MINUTES OFFICE 19100 [place] B[facility]ON OUTPATIEN 2 2 ZACKERY IRIZARRY VISIT INTERNAL 15 MED MINUTES EMERGENCY 23700 [facility] 2 2 [facility] DEPARTMEN INC T VISIT HIGH/URGE NT SEVERITY [facility] - 2 2 [facility] T OFFICE 58586 [place] GAL THO OUTPATIEN 1 1 MEDICAL T NEW 30 SERV MINUTES FOUNDATIO OFFICE 38355 EAR, NOSE SHASHY OUTPATIEN 1 1 AND SOBEIDA T VISIT THROAT 25 SPECIAL MINUTES [facility] 1 [facility] T OFFICE 38865 EAR, NOSE SHASHY OUTPATIEN 1 1 AND SOBEIDA T NEW 30 THROAT MINUTES SPECIAL OFFICE 91775 CHRIS WELLS OUTPATIEN 1 1 [facility] T VISIT INTERNAL 15 MED MINUTES [facility] - 1 1 [facility] 1 [facility] INC T EMERGENCY 38325 [facility] 1 1 [facility] DEPARTMEN [facility] T VISIT HIGH/URGE NT SEVERITY [facility] - 1 1 [facility] - 1 1 [facility] OFFICE 00978 ELLEN LIMON OUTPATIEN 1 1 [facility] T VISIT 10 MINUTES EMERGENCY 52276 [facility] T VISIT LIMITED/M INOR PROB EMERGENCY 79695 MARLO AKERS 1 1 EMERGENCY DEPARTMEN SERVICES T VISIT HIGH/URGE NT SEVERITY [facility] 1 1 [facility] - 1 1 [facility] - 1 1 [facility] OFFICE 17897 PAWSAT PAWSAT OUTPATIEN 1 1 MAR AUG T NEW 30 MINUTES EMERGENCY 78521 [facility] 1 1 [facility] T VISIT MODERATE SEVERITY [facility] 1 1 [facility] T EMERGENCY 48028 MARLO SHAH 1 1 EMERGENCY SHANTHI DEPARTMEN SERVICES T VISIT HIGH/URGE NT SEVERITY [facility] 1 1 [facility] - 1 1 [facility] - 1 1 [facility]EN [facility] - 1 1 [facility] INC OFFICE 53797 [facility] AR[facility]ZU OUTPATIEN 1 1 DEIDRA GAY [facility] 45 MINUTES OFFICE 63092 CARIN DEL ROSARIO OUTPATIEN 1 1 JANET GONZALES [facility] 45 MINUTES [facility] 1 [facility] - 1 1 [facility] 1 [facility] INC EMERGENCY 42377 MARLO JACKSON OSWALD 1 1 EMERGENCY DEPARTMEN SERVICES VISIT HIGH/URGE NT SEVERITY EMERGENCY 50070 [facility] 1 1 [facility] VISIT HIGH/URGE NT SEVERITY [facility] - 1 1 [facility] EMERGENCY 56078 MARLO JACKSON OSWALD DEPT 1 1 EMERGENCY VISIT SERVICES HIGH SEVERITY& THREAT [facility] - 1 1 [facility] OUTPATIEN [facility] - 1 1 [facility] 1 [facility] 1 [facility] 1 [facility] 1 [facility] INC OFFICE 89136 José LYONS OUTPATIEN 1 1 ELOY SIMEON 45 MD [facility] - 1 1 [facility] 0 0 [facility] T EMERGENCY 06534 MARLO SHAH, 0 0 EMERGENCY [facility] DEPARTMEN SERVICES T VISIT MODERATE ASSOCIATE SEVERITY S EMERGENCY 06392 [facility] 0 0 [facility] DEPARTMEN INC T VISIT LOW/MODER SEVERITY [facility] - 0 0 [facility] OUT[facility]EN INC T EMERGENCY 67350 [facility] 0 0 [facility] DEPARTMEN INC T VISIT MODERATE SEVERITY [facility] - 0 0 [facility] T EMERGENCY 50736 MARLO OCRTÉS, 0 0 EMERGENCY [facility] DEPARTMEN SERVICES O T VISIT HIGH/URGE ASSOCIATE NT S SEVERITY EMERGENCY 90805 MARLO SHAH, 0 0 EMERGENCY [facility] DEPARTMEN SERVICES T VISIT MODERATE ASSOCIATE SEVERITY S [facility] - 0 0 [facility] INC T EMERGENCY 46474 [facility] 0 0 [facility] DEPARTMEN INC T VISIT LOW/MODER SEVERITY [facility] - 9 9 [facility] T OFFICE 37423 [facility] BESSON, OUTPATIEN 9 9 [facility] LAURIE A T VISIT INTERNAL 15 MED MINUTES OFFICE 71144 [facility] BESSON, OUTPATIEN 9 9 [facility] LAUR[facility] A T VISIT INTERNAL 25 MED MINUTES [facility] - 9 9 [facility] T OFFICE 01893 [place] ROSAURAE OUTPATIEN 9 9 ZACKERY JR, T VISIT INTERNAL KANNAN F 10 MED MINUTES OFFICE 93009 [facility] BESJEWEL, OUTPATIEN 9 9 [facility] LAURIE A T VISIT INTERNAL 15 MED MINUTES [facility] - 9 9 [facility] T EMERGENCY 46017 [facility] 9 9 [facility] DEPARTMEN INC T VISIT MODERATE SEVERITY EMERGENCY 53302 MARLO SHAH, 9 9 EMERGENCY [facility] DEPARTMEN SERVICES T VISIT HIGH/URGE ASSOCIATE NT S SEVERITY OFFICE 31791 LEANA DUEÑAS OUTPATIEN 9 9 CHELSY Headley T VISIT 15 MINUTES EMERGENCY 77051 MARLO SHAH, 9 9 EMERGENCY [facility] DEPARTMEN SERVICES T VISIT MODERATE ASSOCIATE SEVERITY S EMERGENCY 46706 MARLO CORTÉS, DEPT 9 9 EMERGENCY [facility] VISIT SERVICES O HIGH SEVERITY& ASSOCIATE THREAT S FUN EMERGENCY 57673 [facility] 9 9 [facility] DEPARTMEN INC T VISIT MODERATE SEVERITY EMERGENCY 56392 MARLO SHAH, 9 9 EMERGENCY [facility] DEPARTMEN SERVICES T VISIT HIGH/URGE ASSOCIATE NT S SEVERITY [facility] - 9 9 [facility] INC T OFFICE 55601 LEANA DUEÑAS OUTPATIEN 9 9 CHELSY Headley T VISIT 15 MINUTES HOSPITAL [facility] - 9 9 [facility] OUT[facility] INC T EMERGENCY 49749 [facility] 9 9 [facility] DEPARTMEN INC T VISIT HIGH/URGE NT SEVERITY EMERGENCY 14474 MARLO CORTÉS DEPT 9 9 EMERGENCY [facility] VISIT SERVICES O HIGH SEVERITY& ASSOCIATE THREAT S FUN EMERGENCY 80731 MARLO CENTENO DEPT 9 9 EMERGENCY [facility] VISIT SERVICES HIGH SEVERITY& ASSOCIATE THREAT S FUN EMERGENCY 26869 [facility] HARRIST 9 9 [facility] VISIT INC HIGH SEVERITY& THREAT FUNJ [facility]OSP[facility] - 9 9 [facility] INC T OFFICE 32811 MARY HERNANDEZ OUTPATIEN 9 9 OSWALDO Franz T VISIT 10 MINUTES HOSP[facility] - 9 9 [facility] T [facility] - 9 9 [facility] T OFFICE 20351 MARY HERNANDEZ OUTPATIEN 9 9 OSWALDO Franz T VISIT 15 MINUTES OFFICE 69505 LEANA DUEÑAS OUTPATIEN 9 9 CHELSY Headley T VISIT 15 MINUTES OFFICE 39196 LEANA DUEÑAS OUTPATIEN 9 9 CHELSY Headley CHELSY W T VISIT 15 MINUTES EMERGENCY 62996 MARLO SHEA, KIMBERLYT 9 9 EMERGENCY GISELLE R VISIT SERVICES HIGH SEVERITY& ASSOCIATE THREAT S [facility] - 9 9 [facility] OUTPATIEN INC T OFFICE 63574 LEANA DUEÑAS OUTPATIEN 9 9 CHELSY Headley CHELSY W T VISIT 15 MINUTES OFFICE 81023 LEANA DUEÑAS OUTPATIEN 9 9 CHELSY VALENTINO W T VISIT 15 MINUTES EMERGENCY 52844 MARLO CORTÉS 9 9 EMERGENCY [facility] DEPARTMEN SERVICES O T VISIT MODERATE ASSOCIATE SEVERITY S EMERGENCY 85926 [facility] 9 9 [facility] DEPARTMEN INC T VISIT LOW/MODER SEVERITY [facility] - 9 9 [facility] OUT[facility]EN INC T OFFICE 16947 LEANA DUEÑAS OUTPATIEN 9 9 CHELSY W CHELSY W T VISIT 15 MINUTES HOSPITAL [facility] - 9 9 [facility]EN [facility] T OFFICE 99161 ART BARNARD 9 9 MT STONER T VISIT SERV 25 FOUNDATIO MINUTES EMERGENCY 57314 [facility] 9 9 [facility] DEPARTMEN INC T VISIT HIGH/URGE NT SEVERITY [facility]OSP[facility] - 9 9 [facility] INC T EMERGENCY 62250 MARLO SHAH, DEPT 9 9 EMERGENCY JOSEPH S VISIT SERVICES HIGH SEVERITY& ASSOCIATE THREAT S [facility] OFFICE 27996 LEANA DUEÑAS OUTPATIEN 9 9 CHELSY Headley T VISIT 15 MINUTES EMERGENCY 24270 MARLO VIDES, DEPT 9 9 EMERGENCY [facility] VISIT SERVICES ER R HIGH SEVERITY& ASSOCIATE THREAT S [facility] HOSPITAL [facility] - 9 9 [facility] OUTPATIEN INC T EMERGENCY 31344 [facility] 9 9 [facility] DEPARTMEN INC T VISIT MODERATE SEVERITY OFFICE 51705 LEANA DUEÑAS OUTPATIEN 9 9 CHELSY VALENTINO W T VISIT 15 MINUTES HOSPITAL [facility] - 9 9 [facility] OUTPATIEN INC T EMERGENCY 38192 [facility] 9 9 [facility] DEPARTMEN INC T VISIT LOW/MODER SEVERITY OFFICE 45287 LEANA DUEÑAS OUTPATIEN 9 9 CHELSY Headley CHELSY W T VISIT 15 MINUTES OFFICE 30481 LEANA DUEÑAS OUTPATIEN 9 9 CHELSY Headley CHELSY W T VISIT 15 MINUTES OFFICE 24527 LEANA DUEÑAS OUTPATIEN 9 9 CHELSY Fang CHELSY W T VISIT 15 MINUTES OFFICE 97341 ART BARNARD 9 9 MT GEORGIANA T VISIT SERV 25 FOUNDATIO MINUTES OFFICE 52414 LEANA DUEÑAS OUTPATIEN 8 8 CHELSY VALENTINO W T VISIT 15 MINUTES OFFICE 44350 LEANA DUEÑAS OUTPATIEN 8 8 CHELSY VALENTINO W T VISIT 15 MINUTES HOSPITAL [facility] - 8 8 [facility] OUTPAT[facility]EN INC T EMERGENCY 82798 [facility] 8 8 [facility] DEPARTMEN INC T VISIT LIMITED/M INOR PROB OFFICE 08409 ART BARNARD 8 8 MT [place] VISIT SERV 25 FOUNDATIO MINUTES OFFICE 14480 LEANA DUEÑAS OUTPATIEN 8 8 CHELSY Headley T VISIT 15 MINUTES OFFICE 47863 LEANA DUEÑAS OUTPATIEN 8 8 CHELSY Fang CHELSY Fang T VISIT 15 MINUTES HOSPITAL [facility] - 8 8 [facility] OUT[facility] INC T EMERGENCY 62353 JENNIFER ROSARIO, 8 8 [facility] T VISIT ON MODERATE SEVERITY EMERGENCY 89272 [facility] 8 8 [facility] DEPARTMEN INC T VISIT HIGH/URGE NT SEVERITY OFFICE 65203 LEANA DUEÑAS OUTPATIEN 8 8 CHELSY Headley T VISIT 15 MINUTES HOSPITAL [facility] - 8 8 [facility] OUTPATIEN [facility] T HOSPITAL [facility] - 8 8 [facility] OUTPATIEN INC T OFFICE 82599 SAMANTA ENGLAND OUTPATIEN 8 8 CHUCK WOODS T VISIT 25 MINUTES OFFICE 64792 BUNNY LORD, CONSULTAT 8 8 MEDICAL [place] ION SERV NEW/ESTAB FOUNDATIO PATIENT 60 MIN OFFICE 49915 LEANA DUEÑAS OUTPATIEN 8 8 CHELSY Headley T VISIT 15 MINUTES EMERGENCY 85927 [facility] 8 8 [facility] DEPARTMEN INC T VISIT LIMITED/M INOR PROB HOSPITAL [facility] - 8 8 [facility] OUTPATIEN INC T OFFICE 33470 ALLRAN ALLRAN CONSULTAT 8 8 JR EDWARD ION CHARLES F CHARLES F NEW/ESTAB PATIENT 60 MIN HOSPITAL [facility] - 8 8 [facility] INC T HOSPITAL [facility] - 8 8 [facility] OUTPATIEN INC T EMERGENCY 37651 [facility] 8 8 [facility] DEPARTMEN INC T VISIT MODERATE SEVERITY EMERGENCY 52147 RODRIGUEZ MARLENE, 8 8 [facility] E DEPARTMEN CORPORATI T VISIT ON HIGH/URGE NT SEVERITY OFFICE 31961 LEANA DUEÑAS OUTPATIEN 8 8 CHELSY VALENTINO W T VISIT 15 MINUTES HOSPITAL [facility] - 8 8 [facility] OUTPATIEN INC T EMERGENCY 25923 JENNIFER CORTÉS, 8 8 NATIONAL [facility] DEPARTMEN CORPORATI O T VISIT ON LOW/MODER SEVERITY EMERGENCY 35396 [facility] 8 8 [facility] DEPARTMEN INC T VISIT LIMITED/M INOR PROB EMERGENCY 28936 [facility] 8 8 [facility] DEPARTMEN INC T VISIT LOW/MODER SEVERITY [facility]OSP[facility] - 8 8 [facility] OUTPATIEN INC T OFFICE 78202 LEANA DUEÑAS OUTPATIEN 8 8 CHELSY VALENTINO W T VISIT 15 MINUTES HOSPITAL [facility] - 8 8 [facility] T OFFICE 09047 LEANA DUEÑAS OUTPATIEN 8 8 CHELSY VALENTINO W T VISIT 15 MINUTES OFFICE 46295 ART LANDIN 8 8 KANNAN Franz T VISIT CARDIOLOG 40 Y MINUTES CONSULTAN T OFFICE 81636 LEANA DUEÑAS OUTPATIEN 8 8 CHELSY Headley T VISIT 15 MINUTES OFFICE 44281 LEANA DUEÑAS OUTPATIEN 8 8 CHELSY VALENTINO W T NEW 30 MINUTES INITIAL 18422 [facility] CARIASIV 8 8 [facility] BLANCO RIVAS PATIENT PLLC [id number] EMERGENCY 80428 [facility] 8 8 [facility] DEPARTMEN INC T VISIT HIGH/URGE NT SEVERITY [facility]OSP[facility] - 8 8 [facility] OUTPATIEN INC T OFFICE 17527 [facility] OUTPATIEN 8 8 [facility], VISIT INTERNAL KANNAN F 15 MED MINUTES HOSPITAL [facility] - 8 8 [facility] OUTPATIEN INC [facility] - 8 8 [facility] OUTPATIEN INC T OFFICE 41848 [facility] OUTPATIEN 8 8 [facility], VISIT 5 INTERNAL KANNAN F MINUTES MED OFFICE 81295 [place] ROSAURAE OUTPATIEN 8 8 [facility], VISIT INTERNAL KANNAN F 15 MED MINUTES EMERGENCY 61623 [facility] 8 8 [facility] DEPARTMEN INC T VISIT LIMITED/M INOR [facility] - 8 8 [facility] OUTPATIEN INC T OFFICE 29677 [facility] HEATHER[facility] OUTPATIEN 8 8 [facility], VISIT INTERNAL KANNAN F 15 MED MINUTES EMERGENCY 08197 [facility] DEPT 8 8 [facility] VISIT INC HIGH SEVERITY& THREAT [facility] - 8 8 [facility] OUTPATIEN INC [facility] - 8 8 [facility] OUTPATIEN INC T OFFICE 37524 SAMANTA ENGLAND, CONSULTAT 8 8 CHUCK TERAN NEW/ESTAB PATIENT 80 MIN OFFICE 60279 [place] JAEL MANZANOAT 8 8 MT TERAN SERV NEW/ESTAB FOUNDATIO PATIENT 40 MIN
--- NOTE | 2016-12-11 09:44 | CARDIOVASCULAR REPORT ---
"Venous Exam Indications: 729.5 Pain in limb. 729.81 Swelling of limb. IMPRESSIONS 1. There is no evidence of significant Reflux. 2. No evidence of deep or superficial vein thrombosis involving the right lower extremity Right lower extremity venous duplex evaluation. Doppler flow study including spectral analysis, color and elizabeth scale imaging. Location: Vascular laboratory. Patient status: Emergency department. Incidental findings: A conspicuous lymph is noted incidentally on the right. Tables: Venous flow and imaging: + +-------+ + |Location |Overall|Flow properties | + +-------+ + |Right common femoral |Patent |Normal phasicity; spontaneous; | | | |normal augmentation; compressible| + +-------+ + |Right saphenofemoral junction|Patent |Compressible | + +-------+ + |Right profunda femoral |Patent |Compressible | + +-------+ + |Right femoral |Patent |Normal phasicity; spontaneous; | | | |normal augmentation; compressible| + +-------+ + |Right greater saphenous |Patent |Normal phasicity; spontaneous; | | | |normal augmentation; compressible| + +-------+ + |Right popliteal |Patent |Normal phasicity; spontaneous; | | | |normal augmentation; compressible| + +-------+ + |Right posterior tibial |Patent |Compressible | + +-------+ + |Right peroneal |Patent |Compressible | + +-------+ + |Right gastrocnemius |Patent |Compressible | + +-------+ + |Right soleal |Patent |Compressible | + +-------+ + (Report amended ) Electronically signed by: Rocco Rubio [id number]
[2016-12-11] MEDS ORDERED: NAPROXEN SODIU500 MG PO (09:58)
--- OUTSIDE RECORDS SUMMARY | 2016-12-11 10:00 | External Medical Summary Rpt ---
Author Author , Organization [employer] Address Unknown Phone Unavailable Care Team Providers Care Global Account Executive Name Role Phone JARED-YANIQUE MOH, Unavailable Unavailable JARED-YANIQUE MOH PETER JULIÁN, PETER Unavailable Unavailable JULIÁN MIRANDA MICHAEL, MIRANDA Unavailable Unavailable MICHAEL [facility], Unavailable Unavailable [facility], Unavailable Unavailable [facility] [employer] Unavailable Unavailable INC, [employer] [facility] ALFARIS MOH, ALFARIS Unavailable Unavailable MOH JESUS SHANTHI, JESUS SHANTHI Unavailable Unavailable LUKE BERMUDEZ JR, Unavailable Unavailable LUKE BERMUDEZ JR, RICHARD W, Unavailable Unavailable CHELSY DUEÑAS ALMAS FAD, ALMAS FAD Unavailable Unavailable [facility] Unavailable Unavailable SERVICES, [facility] Unavailable Unavailable SERVICES, [facility]available Unavailable [facility], [facility] Unavailable Unavailable [facility], [facility] COTTO BRO, COTTO Unavailable [...] Unavailable FLANNERY ALL, FLANNERY ALL Unavailable Unavailable RISA, [place], Unavailable Unavailable RISA, [place] [facility] Unavailable Unavailable SERVICE, [facility] Unavailable Unavailable SERVICE, [facility] BRIZUELA JAM, BRIZUELA JAM Unavailable Unavailable SOMERS LAR, SOMERS LAR Unavailable Unavailable C SOPHIE LYONS MD Unavailable Unavailable [facility], José LYONS MD [facility], [facility] Unavailable Unavailable [facility] Unavailable [facility]IP[facility] & Unavailable Unavailable DUBILIER, [facility]UB[facility] MICHAEL TER, MICHAEL TER Unavailable Unavailable CARIAS AMBREEN, CARIAS Unavailable Unavailable AMBREEN RAN CARIAS J, Unavailable Unavailable CARIASRAFIQK J [facility], Unavailable Unavailable [facility] Unavailable Unavailable [facility], Unavailable Unavailable [facility] COLORECT[facility] SURGIAL Unavailable Unavailable ASSOCIATE, COLOR[facility] SURGIAL ASSOCIATE [facility] Unavailable Unavailable LA, [facility] Unavailable Unavailable LA, [facility] SUMMERS, KHURRAM A, Unavailable Unavailable SUMMERS, KHURRAM A [facility] Unavailable Unavailable THE BLUE, [facility] OF [facility] COOK KARLA, COOK KARLA Unavailable Unavailable CEDRICK JR PETR, CEDRICK Unavailable Unavailable JR PETR HOMER AYLA, Unavailable Unavailable HOMER AYLA HOMER, FREDO, Unavailable Unavailable HOMER, FREDO [facility], Unavailable Unavailable [facility] Un[facility] Unavailable [facility]QUIP[facility], [facility] Un[facility]available [facility] Unavailable Unavailable CON[facility]ULTANTS [facility], [facility] JANELLE, JANELLE Unavailable Unavailable [facility]available [facility], [facility] ARVIZU DEIDRA, Unavailable Unavailable ARVIZU DEIDRA ARVIZU DEIDRA, Unavailable Unavailable ARVIZU DEIDRA GAFFNEY PJ, GAFFNEY PJ Unavailable Unavailable [facility] Unavailable Unavailable SPECIAL, [facility] Unavailable Unavailable [place], [facility] GARO FERNANDEZ, Unavailable Unavailable GARO FERNANDEZ [facility] Unavailable Unavailable LLC, [facility], [facility] Unavailable Unavailable [facility], [facility] Unavailable Unavailable [facility] Unavailable Unavailable [facility], [facility] JESSIE SOLIS M, Unavailable Unavailable JESSIE SOLIS, Unavailable Unavailable SIMBA NAJERA, Unavailable Unavailable SIMBA JOHNSON FOSTER DAYANA, FOSTER Unavailable Unavailable DAYANA FOSTER JAM, FOSTER Unavailable Unavailable JAM FERGUSON JAM, FERGUSON Unavailable Unavailable JAM FRYMAN, FRYMAN Unavailable Unavailable JR GINA MARTINEZ, Unavailable Unavailable JR GINA MARTINEZ GAINEY Unavailable Unavailable VICTORIA MAKI, VICTORIA Unavailable Unavailable SHANTHI JOSEPH KESSLER S, Unavailable Unavailable JOSEPH KESSLER S GAL THO, GAL THO Unavailable Unavailable MEJIA ROSARIO E, Unavailable Unavailable MEJIA ROSARIO E MANUEL OSWALD, JACKSON OSWALD Unavailable Unavailable GISELLE SHEA, Unavailable Unavailable HAMON, GISELLE R HARRIES JANET, HARRIES Unavailable Unavailable JANET CARIN JANET, HARRIES Unavailable Unavailable JANET ERVIN DEL ROSARIO, Unavailable Unavailable ERVIN DEL ROSARIO [facility] Unavailable Unavailable INC, [facility] Unavailable Unavailable HOSPITAL P, [facility] P BARRY CARY HARVEY, Unavailable Unavailable BARRY HALLMAN JAMES, VIJI JAMES Unavailable Unavailable [facility], Unavailable Unavailable [facility], Unavailable Unavailable [facility] MARIANA GALEANA, Unavailable Unavailable MARIANA GALEANA [facility] Unavailable Unavailable CENTER, [facility]ER SHAKILA, HAYDEN SHAKILA Unavailable [facility] ROB ZAMUDIO, Unavailable Unavailable ROB ZAMUDIO [facility] Unavailable Unavailable JANET KAVYA GONZALES [facility] Unavailable Unavailable ERVIN WICK, Unavailable Unavailable ERVIN HOFF [facility] Un[facility] Unavailable LLC, D, [facility], [facility], [facility] Unavailable Unavailable IMAGING [facility], [facility] POOL BARON, POOL TOD Unavailable Unavailable FORTINO SAENZ KING, Unavailable Unavailable FORTINO Franz [facility] Unavailable Unavailable HOLDING, [facility] Unavailable Unavailable HOLDING, [facility] HERNANDEZKATI EDWARDS HERNANDEZ Unavailable Unavailable JERRY OSWALDO HERNANDEZ, Unavailable Unavailable OSWALDO HERNANDEZ [facility] ERLIN CAMACHO, Unavailable Unavailable ERLIN CAMACHO LEVY LIZ Unavailable Unavailable LUCIANA JR, LUCIANA JR Unavailable Unavailable LUCIANA JR DWI, LUCIANA Unavailable Unavailable JR DWI LUCIANA, HUA E, Unavailable Unavailable LUCIANA, HUA E [facility] Unavailable Unavailable [facility], [facility] Unavailable Unavailable [facility] Unavailable Unavailable INTERNAL MED, [facility] Unavailable Unavailable INTERNAL MEDI, [facility] M E D SUPPLIES, M E D Unavailable Unavailable SUPPLIES M E D SUPPL[facility], M E D Unavailable Unavailable SUPPLIES [facility], Unavailable Unavailable [facility] Unavailable Unavailable SERVICES, [facility] MARNI LUIS ALFREDO, Unavailable Unavailable MARNI LUIS ALFREDO MARNI LUIS ALFREDO, Unavailable Unavailable MARNI LUIS ALFREDO ESPINO JAM, Unavailable Unavailable ESPINO JAM ESPINO JAM, Unavailable Unavailable ESPINO JAM MCLETITIAMIE PETR, Unavailable Unavailable MCKEMIE JR PETR MCLETITIAMIE JR, KANNAN Unavailable Unavailable F, MCKEMIE JR, KANNAN F [facility], Unavailable [facility]available [facility] HONEY, RACHEL P, Unavailable Unavailable HONEY, RACHEL P PAGAN PETR, PAGAN PETR Unavailable Unavailable PAGAN, KANNAN F, Unavailable Unavailable PAGAN, KANNAN F MANN BET, MANN Unavailable Unavailable BET HANCOCK CAROLYN, HANCOCK Unavailable Unavailable CAROLYN ESCOBAR, LILIYA C, Unavailable Unavailable ESCOBAR, LILIYA C ENGLAND, CHUCK, Unavailable Unavailable CHUCK [facility], [...] Unavailable RENUSCH ILIR, RENUSCH Unavailable Unavailable ILIRCHERYL JACOBSEN, Unavailable Unavailable CHERYL REAL KEVIN CATRACHITO, KEVIN CATRACHITO Unavailable Unavailable [facility] [...] [facility], Unavailable [facility] Unavailable Unavailable EMERGENCY PHYS, [facility] GARCIA RAY, GARCIA Unavailable Unavailable RAY NATACHA PHI, NATACHA PHI Unavailable Unavailable NATACHA, NICOLE A, Unavailable Unavailable NATACHA, NICOLE A [facility] Unavailable Unavailable HOSPITALS, [facility], Unavailable Unavailable [facility] USERY AND, USERY AND Unavailable Unavailable [facility], Unavailable Unavailable [facility] Kylee CORDERO, Unavailable Unavailable Kylee CORDERO [facility] Unavailable Unavailable [id number], [id number] FRANCISCO SINGH Unavailable Unavailable MARCELINO DEIDRA, MARCELINO Unavailable Unavailable MIKE CHAPA, Unavailable Unavailable MIKE KAPLAN WINKLER Unavailable Unavailable SHANTHI [facility] Unavailable Unavailable OF [place], [facility] [place] [facility], Un[facility], Unavailable [facility]available [facility] Purpose Continuity of Care Document - 07-11-2007 through 2016 Problems Code Diagnosis DOS Provider Status 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 ANGINA PECTORIS [id number] PAIN IN 11-06-2016 [facility] RIGHT LEG [facility] INC W68506 PAIN IN 11-06-2016 [facility] LEFT LEG [facility] INC 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 ATHY LUMB RGN M549 DORSALGIA 10-23-2016 [facility] UNSPECIFIED [facility] INC R300 DYSURIA 10-19-2016 [facility] INC E039 HYPOTHYROID 10-05-2016 [facility] ISM [facility] UNSPECIFIED INC M7702 MEDIAL 09-19-2016 [facility] EPICONDYLIT [facility] IS LEFT INC ELBOW J040 ACUTE 2016 [facility] LARYNGITIS PHYSICIAN GROUP [id number] SPONDYLOSIS 09-15-2016 [facility] MYELOPATH/R HOSPITALS ADICULOPATH Y THOR RGN U44746 SPONDYLOSIS 09-15-2016 [facility] MYELOPATH/R HOSPITALS ADICULPATHY LS RGN M546 PAIN IN 09-15-2016 [facility] J069 ACUTE UPPER 09-12-2016 [facility] RESPIRATORY INC INFECTION UNSPECIFIED B73534 PAIN IN 09-08-2016 [facility] LEFT ELBOW PHYSICIANS GROUP J40 BRONCHITIS 09-06-2016 [facility]ERGENCY SPECIFIED PHYS ACUTE OR CHRONIC R05 COUGH 09-06-2016 [facility] R0602 SHORTNESS 09-06-2016 [facility] [place] [facility] M542 CERVICALGIA 08-29-2016 [facility] R51 HEADACHE 08-29-2016 [facility] A3571XP CONTUSION 08-29-2016 [facility] OF SCALP PHYSICIANS, INITIAL PLLC ENCOUNTER R384YDR UNSPECIFIED 08-29-2016 [facility] INJURY OF MEDICAL NECK IMAGING ASS INITIAL ENCOUNTER B23ZKZT UNSPECIFIED 08-29-2016 [facility] INITIAL SERVICE ENCOUNTER E94101 PRIMARY 08-22-2016 [facility] OSTEOARTHRI [facility]ICAL TIS LEFT IMAGING ASS ELBOW E119 TYPE 2 08-15-2016 [facility] DIABETES [facility] MELLITUS INC WITHOUT COMPLICATIO NS I10 ESSENTIAL 08-15-2016 [facility] PRIMARY [facility] HYPERTENSIO INC N J449 CHRONIC 08-15-2016 [facility]STRUCTIVE [facility] PULMONARY INC DISEASE UNS K8689 OTHER 08-15-2016 [facility] SPECIFIED PHYSICIANS, DISEASES OF PLLC PANCREAS R1084 GENERALIZED 08-15-2016 [facility] ABDOMINAL PHYSICIANS, PAIN PLLC Z720 TOBACCO USE 08-15-2016 [facility] INC Z794 CUSTODIAL 08-15-2016 [facility] CURRENT USE [facility] OF INSULIN INC R8299 OTHER 08-07-2016 [facility] ABNORMAL [facility] FINDINGS IN INC URINE W51742 MIGRAINE 08-04-2016 [facility] UNS PHYSICIANS, INTRACTABLE PLLC W/STATUS MIGRAINOSUS V07909 UNSPECIFIED 08-04-2016 [facility] WITH ACUTE LLC EXACERBATIO N V0249YX CONTUSION 08-04-2016 [facility] EYEBALL & PHYSICIANS, ORBITAL PLLC TISSUES RT EYE INIT K61503 ELEVATED 07-26-2016 [facility] WHITE BLOOD [facility] CELL COUNT HOSPITAL P UNSPECIFIED K529 NONINFECTIV 07-14-2016 [facility] E [facility] GASTROENTER INC ITIS & COLITIS UNS I509 HEART 07-12-2016 [facility] UNSPECIFIED HOSPITAL P R0789 OTHER CHEST 07-12-2016 [facility] PAIN PHYSICIANS, [facility] R079 CHEST PAIN 07-12-2016 [place] UNSPECIFIED [facility] HOSPITAL P I272 OTHER 07-05-2016 [facility] SECONDARY [facility] PULMONARY INC HYPERTENSIO N I5030 UNSPECIFIED 07-05-2016 [facility] DIASTOLIC [facility] CONGESTIVE INC HEART FAILURE I959 HYPOTENSION 07-05-2016 [facility] UNSPECIFIED INC E109 TYPE 1 07-04-2016 [place] [facility] P WITHOUT COMPLICATIO NS I9589 OTHER 07-04-2016 [facility] HYPOTENSION PHYSICIANS, PLLC R400 SOMNOLENCE 07-04-2016 [facility] PHYSICIANS, PLLC R55 SYNCOPE AND 07-04-2016 [facility] COLLAPSE PHYSICIANS, [facility] Z51250 OTHER LONG 07-04-2016 [facility] TERM [facility] CURRENT INC DRUG THERAPY G8929 OTHER 06-29-2016 [facility] CHRONIC [facility] PAIN INC M4807 SPINAL 06-29-2016 [facility] STENOSIS [facility] LUMBOSACRAL INC REGION R042 HEMOPTYSIS 06-28-2016 [facility] R918 OTHER 06-28-2016 [facility] NONSPECIFIC [facility] ABNORMAL INC FINDING OF LUNG FIELD I75390 TYPE 2 06-21-2016 [place] DIABETES [facility] MELLITUS INC W/HYPOGLYCE NIKOLAY W/O COMA M5432 SCIATICA 06-13-2016 [facility] LEFT SIDE PHYSICIANS, [facility] M5442 LUMBAGO 06-13-2016 [facility] WITH PHYSICIANS, SCIATICA PLL LEFT SIDE F16088 TYPE 2 06-12-2016 [facility] MELLITUS MEDICAL WITH FOOT EQUIPME ULCER R07021 TYPE 2 06-12-2016 [facility] MELLITUS MEDICAL WITH OTHER EQUIPME SKIN ULCER G894 CHRONIC 06-12-2016 [facility] PAIN PHYSICIANS SYNDROME GROUP M4307 SPONDYLOLYS 06-12-2016 [facility] IS PHYSICIANS LUMBOSACRAL GROUP REGION 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 R98782 PERSONAL 06-12-2016 [facility] HISTORY OF PHYSICIANS OTHER GROUP SPECIFIED CONDITIONS E876 HYPOKALEMIA 06-06-2016 [facility], [facility] K5900 CONSTIPATIO 06-06-2016 [facility] MEDICAL UNSPECIFIED IMAGING ASS N200 CALCULUS OF 06-06-2016 [facility] N3000 ACUTE 06-06-2016 [facility] CYSTITIS PHYSICIANS, WITHOUT PLLC HEMATURIA N390 URINARY 06-06-2016 [facility] TRACT PHYSICIANS, INFECTION PLLC SITE NOT SPECIFIED R531 WEAKNESS 06-06-2016 [facility] R634 ABNORMAL 06-06-2016 [facility] LOSS [facility] J050 ACUTE 05-18-2016 [facility] OBSTRUCTIVE PHYSICIANS, LARYNGITIS PLLC CROUP L299 PRURITUS 05-18-2016 [facility] UNSPECIFIED PHYSICIANS, PLLC M5127 OTH 05-17-2016 [facility] INTERVERTEB MEDICAL RAL DISC IMAGING ASS DISPLACEMEN T LS REGION M5136 OTH 05-17-2016 [facility] 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 M545 LOW BACK 05-17-2016 [facility] PAIN MEDICAL IMAGING ASS K25929 PAIN IN 05-13-2016 [facility] RIGHT KNEE MEDICAL IMAGING ASS K5794OF CONTUSION 05-13-2016 [facility] OF RIGHT PHYSICIANS, KNEE PLLC INITIAL ENCOUNTER W72657 MIGRAINE 05-09-2016 [facility] W/O AURA PHYSICIANS, NOT INTRACT PLLC W/O STAT MIGRAIN V93350 PAIN IN 05-08-2016 [facility] RIGHT HIP [facility] INC B351 TINEA 04-13-2016 [facility] UNGUIUM FOOT & ANKLE CE I7090 UNSPECIFIED 04-13-2016 [place] FOOT & ATHEROSCLER ANKLE CE OSIS X53718 PAIN IN 04-13-2016 [facility] UNSPECIFIED FOOT & LIMB ANKLE CE R0781 PLEURODYNIA 03-31-2016 [facility] R52 PAIN 03-31-2016 [facility] UNSPECIFIED [facility]BULANCE SERVICE F84329P CONTUSION 03-31-2016 [facility] UNS FRONT PHYSICIANS, WALL THORAX PLLC INITIAL ENCNTR A777WQD UNSPECIFIED 03-31-2016 [facility] INJURY OF MEDICAL THORAX IMAGING ASS INITIAL ENCOUNTER L0291 CUTANEOUS 03-20-2016 [facility] ABSCESS [facility] UNSPECIFIED INC Z80596H CONTUSION 03-17-2016 [facility] LEFT FRONT PHYSICIANS, WALL THORAX PLLC INITIAL ENC L73359G CONTUSION 03-17-2016 [facility] OF LEFT PHYSICIANS, SHOULDER PLLC INITIAL ENCOUNTER K63942 NON-PRSS 03-14-2016 [facility] CHRN ULCER PHYSICIANS SKIN OTH GROUP SITES UNS SEVERITY G23874 CELLULITIS 03-09-2016 [facility] OF [facility] ABDOMINAL INC WALL Z0311YZ OTHER 03-09-2016 [facility] COMPLICATIO PHYSICIANS, NS PROC NEC PLLC INITIAL ENCOUNTER E049 NONTOXIC 02-17-2016 [facility] GOITER PHYSICIANS UNSPECIFIED GROUP R1310 DYSPHAGIA 02-17-2016 [facility] UNSPECIFIED PHYSICIANS GROUP D13107O UNS FOREIGN 02-17-2016 [facility] BODY PHYSICIANS LARYNX CAUS GROUP OTH INJURY INIT ENC W34445 PAIN IN 02-10-2016 [facility] LEFT HIP MEDICAL IMAGING ASS X017MQJ STRAIN 02-10-2016 [facility] MUSCLE FASC [facility] & TENDON INC NECK LEVL INIT ENC K3421NW CONTUSION 02-10-2016 [facility] OF LEFT HIP [facility]OS[facility] INITIAL INC ENCOUNTER N77086F UNSPECIFIED 02-10-2016 [facility] INJURY [facility]ICAL LEFT HIP IMAGING ASS INITIAL ENCOUNTER I82730 UNSPECIFIED 02-07-2016 [facility] KERATITIS LEFT EYE R221 LOCALIZED 02-05-2016 [facility] SWELLING [facility] MASS AND INC LUMP NECK R4702 DYSPHASIA 02-03-2016 [facility] INC R5383 OTHER 06-15-2015 [facility] FATIGUE [facility] INC Z54204I CONTUSION 06-03-2015 [facility] RT FRONT PHYSICIANS, WALL THORAX PLLC INITIAL ENCOUNTER F08664 PAIN IN 05-29-2015 [facility] RIGHT WRIST MEDICAL IMAGING ASS Z57537 PAIN IN 05-29-2015 [facility] UNSPECIFIED MEDICAL HIP IMAGING ASS L15237 PAIN IN 05-29-2015 [facility] LEFT KNEE MEDICAL IMAGING ASS D0058PH CONTUSION 05-29-2015 [facility] OF NOSE MEDICAL INITIAL IMAGING ASS ENCOUNTER Q9290DR CONTUSION 05-29-2015 [facility] OTHER PART PHYSICIANS, OF HEAD PLLC INITIAL ENCOUNTER A61717H UNSPECIFIED 05-29-2015 [facility] SPRAIN [facility] RIGHT WRIST INC INITIAL ENCOUNTER Q6144YY SPRAIN 05-29-2015 [facility] UNSPECIFIED [facility] SITE LT INC KNEE INITIAL ENCNTR Z043 ENCOUNTER 05-29-2015 [facility] EXAM & MEDICAL OBSERVATION IMAGING ASS FOLLOW OTH ACCIDENT E1121 TYPE 2 05-25-2015 [place] DIABETES [facility] MELLITUS [facility] P W/DIABETIC NEPHROPATHY I96 GANGRENE 05-25-2015 [facility] NOT ANESTH OF ELSEWHERE THE BLUE CLASSIFIED P52021 NON-PRSS 05-25-2015 [facility] ULCR TORO & OTH PART RT DUBILIER FT W/UNS SEVERITY B72383 OTHER ACUTE 05-25-2015 [facility] OSTEOMYELIT [facility] P IS RIGHT ANKLE AND FOOT Z9111 PATIENTS 05-25-2015 [facility] CE WITH HOSPITAL P DIETARY REGIMEN M57778 NON-PRSS 05-24-2015 [facility] MEDICAL OTH PART LT IMAGING ASS FOOT UNS SEVERITY M2011 HALLUX 05-24-2015 [facility] CABALLERO PHYSICIANS, ACQUIRED [facility] RIGHT FOOT 7231 CERVICALGIA 03-06-2015 [facility] 7802 SYNCOPE AND 03-06-2015 [facility] COLLAPSE [facility] 7840 HEADACHE 03-06-2015 [facility] 02441 INJURY OF 03-06-2015 [facility] FACE AND MEDICAL NECK OTHER IMAGING ASS AND UNSPECIFIED 93439 ACUTE PAIN 03-05-2015 [facility] DUE TO AMBULANCE TRAUMA SERVICE 47610 PAIN IN 03-05-2015 [facility] JOINT MEDICAL PELVIC IMAGING ASS REGION AND THIGH 8470 NECK SPRAIN 03-05-2015 [facility] AND STRAIN PHYSICIANS, PLLC 920 CONTUSION 03-05-2015 [facility] OF FACE PHYSICIANS, [facility] NECK EXCEPT EYE E8889 UNSPECIFIED 03-05-2015 [facility] 7881 DYSURIA 02-24-2015 [place] [address] DIAB W/O 02-09-2015 [facility] COMP TYPE I HOME [JUV] NOT MEDICAL STATED EQUIPME UNCNTRL 32284 OBSTRUCTIVE 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 EQUIPME 43096 EXTRINSIC 02-09-2015 [facility] ASTHMA, HOME UNSPECIFIED MEDICAL EQUIPME 45853 DIAB W/OTH 02-03-2015 [facility] MANIFESTS [facility] TYPE I INC [JUV] NOT UNCNTRL 4019 UNSPECIFIED 02-03-2015 [facility] ESSENTIAL [facility] HYPERTENSIO INC N 4139 OTHER AND 02-03-2015 [facility] UNSPECIFIED [facility] ANGINA INC PECTORIS 496 CHRONIC 02-03-2015 [facility] AIRWAY [facility] OBSTRUCTION INC NEC 41525 OTHER 02-03-2015 [facility] MALAISE AND [facility] FATIGUE INC V5867 LONG-TERM 02-03-2015 [facility] USE OF [facility] INSULIN INC 7906 OTHER 02-01-2015 [facility] ABNORMAL [facility] BLOOD INC CHEMISTRY V7389 SPECIAL 02-01-2015 [facility] SCREENING [facility] EXAMINATION INC OTH SPEC VIRAL DZ 7295 PAIN IN 01-06-2015 [facility] SOFT MEDICAL TISSUES OF IMAGING ASS LIMB 29750 SWELLING OF 01-06-2015 [facility] LIMB MEDICAL IM[facility] ASS 7823 EDEMA 01-06-2015 [facility] INC 55918 CHEST PAIN 12-31-2014 [facility] UNSPECIFIED [facility]ICAL IMAGING ASS 62892 PAIN IN 12-17-2014 [facility] JOINT, MEDICAL SHOULDER IMAGING ASS REGION 77581 PAIN IN 12-17-2014 [facility], MEDICAL FOREARM IMAGING ASS 36143 PAIN IN 12-17-2014 [facility] JOINT, MEDICAL LOWER LEG IMAGING ASS 8408 SPRAIN&STRA 12-17-2014 [facility] IN OTH SPEC [facility] SITES INC SHOULDER&UP PER ARM 8409 SPRAIN&STRA 12-17-2014 [facility] IN UNSPEC PHYSICIANS, SITE PLLC SHOULDER&UP PER ARM 37282 SPRAIN AND 12-17-2014 [facility] STRAIN OF [facility] UNSPECIFIED INC SITE OF WRIST 8449 SPRAIN&STRA 12-17-2014 [facility] IN OF [facility] UNSPECIFIED INC SITE OF KNEE&LEG 9221 CONTUSION 12-17-2014 [facility] OF CHEST [facility]OS[facility] WALL INC 08205 OTHER 12-17-2014 [facility] INJURY OF MEDICAL CHEST WALL IMAGING ASS 59030 OTHER 12-17-2014 [facility] INJURY OF MEDICAL OTHER SITES IMAGING ASS OF TRUNK 9592 INJURY 12-17-2014 [facility] OTHER&UNSPE MEDICAL CIFIED IMAGING ASS SHOULDER&UP PER ARM 9593 INJURY 12-17-2014 [facility] OTHER&UNSPE MEDICAL CIFIED IMAGING ASS ELBOW FOREARM&WRI ST 9597 INJURY 12-17-2014 [facility] OTHER&UNSPE MEDICAL CIFIED KNEE IMAGING ASS LEG ANKLE&FOOT V714 OBSERVATION 12-17-2014 [facility] FOLLOWING MEDICAL OTHER IMAGING ASS ACCIDENT 5718 OTHER 12-16-2014 [facility] CHRONIC SERV NON[place] FOUNDATION C LIVER DISEASE 98540 ABDOMINAL 12-16-2014 [facility] PAIN RIGHT SERV UPPER FOUNDATION QUADRANT 7892 SPLENOMEGAL 12-16-2014 [facility] Y SERV [facility] 2512 HYPOGLYCEMI 11-25-2014 [facility] UNSPECIFIED INC 19649 SHORTNESS 11-11-2014 [facility] OF BREATH SERV FOUNDATION 34429 DIAB 10-23-2014 [facility] W/[facility] MANIFESTS INC TYPE II/UNS TYPE UNCNTRL 27457 UNSPECIFIED 10-23-2014 [facility] CELLULITIS [facility] AND INC ABSCESS OF TOE 53799 ULCER OF 10-23-2014 [facility] OTHER PART PATHOLOGY OF FOOT SERVICES 7224 DEGENERATIO 10-17-2014 [facility] N OF MEDICAL CERVICAL IMAGING ASS INTERVERTEB RAL DISC 68361 DIAB W/O 09-27-2014 [facility] COMP TYPE [facility] II/UNS NOT INC STATED UNCNTRL 2724 OTHER AND 09-27-2014 [facility] UNSPECIFIED [facility] INC HYPERLIPIDE NIKOLAY 02959 OBESITY, 09-27-2014 [facility] UNSPECIFIED [place] INTERNAL MED 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 INC UNSPECIFIED 41090 ALTERED 09-27-2014 [facility] MENTAL [place] STATUS INTERNAL MED 7862 COUGH 09-27-2014 [facility] 82504 POISONING 09-27-2014 [facility] BY OPIUM , [place] UNSPECIFIED INTERNAL MED E8502 ACCIDENTAL 09-27-2014 [facility] PO[facility]N [facility] P ATED NARCOTICS 5180 PULMONARY 09-26-2014 [facility] CO[facility]SE [facility] 66288 FEVER 09-26-2014 [facility] UNSPECIFIED [facility]ICAL IMAGING ASS 7869 OT 09-26-2014 [facility] SYMPTOMS MEDICAL INVOLVING IMAGING ASS RESPIRATORY SYSTEM&CHES T V053 NEED PROPH 09-07-2014 [facility] VACC&INOCUL SERV AT AGAINST [facility] VIRAL HEP 71631 CONTUSION 09-03-2014 [facility] P 91286 CONTUSION 09-03-2014 [facility] P 85768 CLOSED 05-01-2014 [facility] FRACTURE PHYSICIANS METACARPAL GROUP BONE SITE UNSPECIFIED E8888 OTHER FALL 04-28-2014 [facility] V1582 PERS HX 04-28-2014 [facility] [facility] USE [facility] PRESENTING INC HAZARDS HEALTH 2104 BENIGN 04-27-2014 EAR, NOSE NEOPLASM AND THROAT OTHER&UNSPE SPECIAL CIFIED PARTS MOUTH 60807 DYSFUNCTION 04-27-2014 EAR, NOSE OF AND THROAT EUSTACHIAN SPECIAL TUBE 08322 OTOGENIC 04-27-2014 EAR, NOSE PAIN AND THROAT SPECIAL 27472 DYSPHAGIA 04-27-2014 EAR, NOSE UNSPECIFIED AND THROAT SPECIAL 4770 ALLERGIC 04-13-2014 [facility] RHINITIS [facility] DUE TO POLLEN 4778 ALLERGIC 04-13-2014 [facility] RHINITIS [facility] DUE TO OTHER ALLERGEN 4772 ALLERGIC 04-06-2014 [facility] RHINITIS [facility] DUE TO ANIMAL HAIR AND DANDER 57751 CHRONIC 04-06-2014 [facility] OBSTRUCTIVE [facility] ASTHMA UNSPECIFIED 54092 SENSORINEUR 04-03-2014 EAR, NOSE AL HEARING AND THROAT LOSS SPECIAL BILATERAL 2728 OTHER 03-19-2014 [facility] 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 18200 DIAB 03-16-2014 [facility]/OPHTH [facility]IF[facility] TYPE II/UNS NOT UNCNTRL 5939 UNSPECIFIED 03-03-2014 [facility] DISORDER N EMERGENCY OF KIDNEY PHYS AND URETER 5990 URINARY 03-03-2014 [facility] TRACT N EMERGENCY INFECTION PHYS SITE NOT SPECIFIED 61960 OTHER 01-28-2014 [facility] DISORDER OF STOMACH AND DUODENUM 5715 CIRRHOSIS 01-28-2014 [facility] WITHOUT MENTION OF ALCOHOL 5723 PORTAL 01-28-2014 [facility] N V7651 SPECIAL 01-28-2014 [facility] NE[facility]LAS[facility] COLON 2168 BENIGN 01-21-2014 [...] GOITER, 12-23-2013 [facility] UNSPECIFIED [facility] INC 02378 ABDOMINAL 12-15-2013 [facility] PAIN OTHER [facility] SPECIFIED INC SITE 61140 OTHER ACUTE 12-01-2013 [facility] 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[facility] 5778 OTHER 12-01-2013 [place] [facility] SPECIFIED SERV DISEASE OF FOUNDATIO PANCREAS 61722 DIARRHEA 12-01-2013 [facility] 57223 ABDOMINAL 12-01-2013 [place] MEDICAL PAIN, SERV UNSPECIFIED FOUNDATIO SITE 7948 NONSPECIFIC 12-01-2013 [place] MEDICAL ABNORMAL SERV RESULTS FOUNDATIO LIVR FUNCTION STUDY V762 SCREENING 11-19-2013 [facility] MALIGNANT NEOPLASM OF THE CERVIX 24733 OTHER CHEST 11-08-2013 [facility] PAIN N EMERGENCY PHYS 78236 OTHER 11-08-2013 [facility] NONSPECIFIC MEDICAL ABNORMAL IMAGING ASS FINDING OF LUNG FIELD 7242 LUMBAGO 09-23-2013 [facility] INC V571 OTHER 09-23-2013 [facility] PHYSICAL [facility] THERAPY INC V5869 LONG-TERM 09-17-2013 [facility] (CURRENT) [facility] USE OF INC OTHER MEDICATIONS 7226 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 UNSPEC 81614 DEGEN 09-11-2013 [place] [facility]ICAL LUMBAR/LUMB SERV OSACRAL FOUNDATIO INTERVERTEB RAL DISC 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 52408 MORBID 08-25-2013 [place] OBESITY [facility] P 4409 GENERALIZED 08-25-2013 [facility] AND MEDICAL UNSPECIFIED IMAGING ASS ATHEROSCLER OSIS 4471 STRICTURE 08-25-2013 [facility] OF [facility] 4830 PNEUMONIA 08-25-2013 [place] DUE TO [facility] P PNEUMONIAE 32287 SCOLIOSIS , 08-25-2013 [place] IDIOPATHIC [facility]ICAL IMAGING ASS V8541 BODY MASS 08-25-2013 [facility] 40.0-44.9 [facility] P ADULT 4829 UNSPECIFIED 08-23-2013 [facility] BACTERIAL EMERGENCY PNEUMONIA SERVICES 01911 OTHER 08-23-2013 [place] DISEASES OF MEDICAL LUNG NOT IMAGING ASS ELSEWHERE CLASSIFIED 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 7238 OTHER 08-20-2013 [facility] SYNDROMES NEUROLOGY AFFECTING CENTER MITCH CERVICAL REGION 85589 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-2013 [place]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 51192 SPINAL STEN 08-18-2013 [place] LUMB REG MEDICAL W/O IMAGING ASS NEUROGENIC CLAUDICATIO N 8404 ROTATOR 07-26-2013 [place] CUFF SPRAIN [facility] AND STRAIN INC 5989 UNSPECIFIED 05-06-2013 [place] URETHRAL [facility] STRICTURE [facility] P 86275 UNSPECIFIED 04-29-2013 [place] URETHRITIS [facility] P 5952 OTHER 04-08-2013 [place] CHRONIC [facility] CYSTITIS [facility] P 53220 DIAB W/O 04-03-2013 [place] MENTION [facility] COMP TYPE I INC [JUV TYPE] UNCNTRL 06797 UNSPECIFIED 04-03-2013 [facility] EMERGENCY CONSTIPATIO SERVICES N 71935 OTHER 03-31-2013 [facility] CHRONIC [facility]FR[facility] ALLERGIC CONJUNCTIVI TIS 91143 NUCLEAR 03-18-2013 [facility] 3669 UNSPECIFIED 03-18-2013 [place] CATARACT [facility] INC V148 PERSONAL 03-18-2013 [place] HISTORY [facility] ALLERGY OTH INC SPEC MEDICINAL AGTS 2689 UNSPECIFIED 02-25-2013 [facility] VITAMIN D [facility] DEFICIENCY 4919 UNSPECIFIED 02-04-2013 [facility] CHRONIC [facility] BRONCHITIS 61687 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 [facility] 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[facility] AL[facility]O STATUS ASTHMATICUS 70011 MIGRAINE 01-30-2013 [facility] UNSP W/O VALLEY INTRACT W/O INTERNAL STATUS MED MIGRAINOSUS 04942 ABDOMINAL 01-23-2013 [facility], LEFT PHYSICIANS LOWER LA QUADRANT 460 ACUTE 01-22-2013 [facility] NASOPHARYNG VALLEY ITIS INTERNAL MEDI 54557 VISUAL 01-14-2013 [facility] 3688 OTHER 01-14-2013 [place] SPECIFIED EYE VISUAL INSTITUTE DISTURBANCE S 490 BRONCHITIS 12-28-2012 [facility] NOT VALLEY SPECIFIED INTERNAL ACUTE OR MED CHRONIC 5110 PLEURISY 12-20-2012 [facility] MENTION INC EFFUS/[place] [address] PAINFUL 12-20-2012 [facility] RESPIRATION [place] INTERNAL MED 14335 DIAB W/O 12-17-2012 M E D MENTION SUPPLIES COMP TYPE II/UNS TYPE UNCNTRL 12776 URINARY 11-27-2012 [facility] FREQUENCY VALLEY INTERNAL MEDI 6279 UNSPECIFIED 11-13-2012 [facility] HOSP MENOPAUSAL& INC POSTMENOPAU HERBERT DISORDER 34949 PATELLAR 11-13-2012 [facility] TENDINITIS PHYSICIANS GROUP 72657 ACHILLES 11-13-2012 [facility] BURSITIS OR HOME TENDINITIS MEDICAL EQUIPME 17257 OTHER 11-13-2012 [facility] SYNOVITIS PHYSICIANS AND GROUP TENOSYNOVIT IS 7289 UNSPECIFIED 11-13-2012 [facility] DISORDER PHYSICIANS OF MUSCLE GROUP LIGAMENT&FA SCIA 72684 DISORDER OF 11-13-2012 [place] BONE AND MEDICAL CARTILAGE IMAGING ASS UNSPECIFIED V4981 ASYMPTOMATI 11-13-2012 [facility] MEDICAL POSTMENOPAU IMAGING ASS HERBERT STATUS 38970 OSTEOARTHRO 11-07-2012 [facility] UNSPEC MEDICAL WHETHER IMAGING ASS GEN/LOC LOWER LEG 8259 UNSPECIFIED 10-17-2012 [facility] SINUSITIS VALLEY INTERNAL MEDI 6931 DERMATITIS 09-30-2012 [facility] DUE TO FOOD LUIS ALFREDO TAKEN INTERNALLY V727 DIAGNOSTIC 09-30-2012 [facility] SKIN AND LUIS ALFREDO SENSITIZATI ON TESTS 76314 URGE 08-29-2012 [facility] P 2449 UNSPECIFIED 08-28-2012 [facility] HYPOTHYROID INTERNAL ISM MEDI 83497 OTHER 08-23-2012 [place] SPECIFIED MEDICAL DISORDERS IMAGING ASS OF BLADDER V7612 OTHER 08-23-2012 [place] SCREENING MEDICAL MAMMOGRAM IMAGING ASS 5932 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 [place]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 7533 OTHER 08-09-2012 [place] 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 0419 BACTERIAL 08-08-2012 [facility] INFECTION [place] UNSPECIFIED INTERNAL CCE & UNS MED SITE 33206 DEHYDRATION 08-08-2012 [facility] [place] INTERNAL MED V7231 ROUTINE 08-05-2012 [facility]AM[facility]ATION SONIA 4720 CHRONIC 08-02-2012 [facility] RHINITIS [place] INTERNAL MEDI 51282 MASTODYNIA 08-02-2012 [facility] VALLEY INTERNAL MEDI 4011 ESSENTIAL 07-09-2012 [facility] HYPERT[facility] N, BENIGN 7964 OTHER 07-05-2012 INPATIENT ABNORMAL CARE, [facility] CLINICAL FINDING 03238 COR 07-01-2012 INPATIENT ATHEROSLERO CARE, [facility] UNSPEC TYPE VESSEL PILOT POINT/ELSA T 59066 UNSPECIFIED 06-19-2012 [facility] VIRAL EMERGENCY INFECTION SERVICES IN CCE & UNS SITE 83417 CONTUSION 06-14-2012 [facility] OF [facility] INC 9233 CONTUSION 06-14-2012 [facility] OF FINGER [facility] INC 61617 CONTUSION 06-14-2012 [facility] OF KNEE [facility] INC 9599 INJURY 06-14-2012 [place] OTHER AND MEDICAL UNSPECIFIED IMAGING ASS UNSPECIFIED SITE 4659 ACUTE URIS 06-05-2012 [facility] UNSPECIFIED CENTER SITE 8489 UNSPECIFIED 06-05-2012 [facility] SITE OF [facility]ALTH[facility] SPRAIN AND CENTER STRAIN V8542 BODY MASS 05-23-2012 [facility] INDEX [facility] 45.0-49.9 CENTER ADULT 98689 ATROPHIC 05-20-2012 [facility] GASTRITIS SURGIAL WITHOUT ASSOCIATE MENTION OF HEMORRHAGE 93305 NAUSEA WITH 05-20-2012 [facility] VOMITING SURGIAL ASSOCIATE V1279 PERSONAL 05-20-2012 [facility] HISTORY OTH PHYS SURG DISEASES CTR DIGESTIVE DISEASE 4660 ACUTE 05-05-2012 [facility] BRONCHITIS N EMERGENCY PHYS 23366 ASTHMA, 05-05-2012 [facility] UNSPECIFIED N EMERGENCY , PHYS UNSPECIFIED STATUS 1129 CANDIDIASIS 05-03-2012 [facility] UNSPECIFIED CENTER SITE 4619 ACUTE 05-03-2012 [facility] SINUSITIS, HEALTHCARE UNSPECIFIED CENTER V0481 NEED 04-17-2012 [facility] PROPHYLACTI [facility]CARE C CENTER VACCINATION &INOCULATIO N FLU 39412 ESOPHAGEAL 04-16-2012 [facility] REFLUX SURGIAL ASSOCIATE 5559 REGIONAL 04-16-2012 [facility] ENTERITIS SURGIAL OF ASSOCIATE UNSPECIFIED SITE 74595 POLYURIA 03-29-2012 [facility] [employer] 24299 UNSPECIFIED 03-18-2012 [facility] VAGINITIS PSC AND VULVOVAGINI TIS 6235 LEUKORRHEA 03-18-2012 [facility] NOT PSC SPECIFIED INFECTIVE 6248 OTH SPEC 03-17-2012 INPATIENT NONINFLAMMA CARE, PLLC TORY DISORDER VULVA&PERIN EUM 35161 LOSS OF 02-20-2012 C SOPHIE PARAM LYONS MD [facility] 47395 UNSPECIFIED 02-14-2012 [facility] ARTHROPATHY INTERNAL MULTIPLE MEDI SITES 18712 ABDOMINAL 02-14-2012 [facility] PAIN, VALLEY GENERALIZED INTERNAL MEDI V741 SCREENING 02-14-2012 [facility] EXAMINATION VALLEY FOR INTERNAL PULMONARY MEDI TUBERCULOSI S 11573 ABDOMINAL 02-07-2012 [facility] PAIN, LEFT [facility] UPPER INC QUADRANT 90921 VASCULAR 01-06-2012 [facility] ES OF CONJUNCTIVA 23663 SWELLING OR 01-06-2012 [facility] EYE 06168 REDNESS OR 01-06-2012 [facility] EYE 09115 OTHER 01-06-2012 [place] MEDICAL DISEASES OF SERV NASAL FOUNDATIO CAVITY AND SINUSES 0539 HERPES 12-14-2011 [facility] ZOSTER VAL[facility] WITHOUT INTERNAL MENTION OF MED COMPLICATIO N 7891 HEPATOMEGAL 12-07-2011 [place] [facility] 55626 PAIN IN 11-11-2011 [facility] JOINT, VALLEY ANKLE AND INTERNAL FOOT MED 54422 TRANSIENT 11-10-2011 [facility] ARTHROPATHY [facility] ANKLE AND INC FOOT 6826 CELLULITIS 10-19-2011 [facility] AND ABSCESS VALLEY OF LEG INTERNAL EXCEPT FOOT MED 4780 HYPERTROPHY 10-12-2011 [facility] OF NASAL LUIS ALFREDO TURBINATES 9164 HIP THI 10-03-2011 [facility] LEG&ANK VALLEY INSECT BITE INTERNAL MED NONVENOMOUS W/O INF E9064 BITE OF 10-03-2011 [facility] NONVENOMOUS VALLEY ARTHROPOD INTERNAL MED 38728 TRANSIENT 09-25-2011 [facility] VISUAL LOSS [facility] INC 48347 SCOTOMA 09-25-2011 [facility] INVOLVING [facility] CENTRAL INC AREA IN VISUAL FIELD 57178 DISORDERS 09-25-2011 [facility] VISUAL [facility] CORTEX INC ASSOCIATED W/NEOPLASMS 7842 SWELLING 09-25-2011 [facility] OR MEDICAL LUMP IN IMAGING ASS HEAD AND NECK 34627 BORDERLINE 09-15-2011 [facility] ALTAMIRANO OPEN JAM ANGLE BL FINDINGS LOW RSK 78849 CHRONIC 09-07-2011 [facility] OBSTRUCTIVE [facility] ALFREDO 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EXACERBATIO N 26893 OBSTRUCTIVE 08-30-2011 [facility] CHRONIC VALLEY BRONCHITIS INTERNAL WITH MED EXACERBATIO N 4293 CARDIOMEGAL 08-17-2011 [facility] Y MEDICAL IMAGING ASS 29788 CHRONIC 08-09-2011 [facility] TENSION JAM TYPE HEADACHE 24111 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 29442 DIAB 06-25-2011 [facility] W/RENAL [facility] MANIFESTS INC TYPE I [JUV TYPE] UNCNTRL 85975 OBST 06-25-2011 [facility] CHRONIC [facility] BRONCHITIS INC W/ACUTE BRONCHITIS 67662 NAUSEA 06-25-2011 [facility] EMERGENCY SERVICES 7841 THROAT PAIN 06-06-2011 [place] MEDICAL SERV FOUNDATIO 57834 OTHER 05-25-2011 [facility] SYMPTOMS [facility] INVOLVING INC HEAD AND NECK 4721 CHRONIC 05-15-2011 E[facility], NOSE PHARYNGITIS AND THROAT SPECIAL 462 ACUTE 05-09-2011 [facility] PHARYNGITIS [place] INTERNAL MED 46854 UNSPECIFIED 04-12-2011 [facility] PHYSICIANS ARTHROPATHY LA ANKLE AND FOOT 6989 UNSPECIFIED 03-28-2011 [facility] PRURITIC [facility] DISORDER INC 6929 CONTACT 03-27-2011 DERMATOLOGY DERMATITIS& OTHER CONSULTANTS ECZEMA DUE PSC UNSPEC CAUSE 59999 WHEEZING 03-20-2011 [facility] SERVICES 7391 NONALLOPATH 03-08-2011 [facility] JANET IC LESION OF CERVICAL REGION NEC 4548 VARICOSE 02-23-2011 [facility]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 SERVICES EXTREMITIES W/OTH COMPS 7827 SPONTANEOUS 02-23-2011 [facility] ECCHYMOSES [facility] INC 71165 CONTUSION 02-23-2011 [facility] OF THIGH EMERGENCY SERVICES 4439 UNSPECIFIED 02-17-2011 [facility] PERIPHERAL MEDICAL VASCULAR IMAGING ASS DISEASE 1101 DERMATOPHYT 02-10-2011 [facility] MAR OSIS OF NAIL 99157 DIAB 02-10-2011 [facility] W/NEURO MANIFESTS TYPE II/UNS NOT UNCNTRL 75332 DIAB 02-10-2011 [facility] W/PERIPH CIRC D/O TYPE II/UNS NOT UNCNTRL 26025 ABDOMINAL 01-18-2011 [place] PA[place] RIGHT MEDICAL LOWER IMAGING ASS QUADRANT 59974 HYPERSOMNIA 12-27-2010 [facility] WITH SLEEP DEIDRA APNEA UNSPECIFIED 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 56917 OTHER 10-26-2010 [facility] ALTERATION [facility] OF INC CONSCIOUSNE SS 9953 ALLERGY 09-13-2010 [facility] UNSPECIFIED AMBULANCE NOT SERVICE ELSEWHERE CLASSIFIED V1272 PERSONAL 08-25-2010 [facility] HISTORY OF [facility] COLONIC INC POLYPS 55265 BACKGROUND 07-28-2010 [facility] DI[facility]ETIC VISION RETINOPATHY 91164 UNSPECIFIED 07-27-2010 [facility] INFECTIVE [facility] OTITIS INC EXTERNA 50507 HYPOXEMIA 06-27-2010 [facility] 5589 OTH&UNSPEC 10-12-2009 [facility] NONINFECTIO EMERGENCY US SERVICES GASTROENTER ASSOCIATES ITIS&COLITI S 62688 PAPANICOLAO 04-16-2009 PATHOLOGY & U SMEAR OF CYTOLOGY VAGINA WITH LAB ASC-US 82998 ABDOMINAL 04-14-2009 [facility] PAIN, [place] EPIGASTRIC INTERNAL MED 25316 ASTHMA 03-19-2009 [facility] UNSPECIFIED EMERGENCY WITH SERVICES EXACERBATIO ASSOCIATES N 7393 NONALLOPATH 03-17-2009 [place] LESION FAMILY OF LUMBAR CHIROPRACTI REGION NEC C 5999 UNSPECIFIED 03-09-2009 DONNIE DUEÑAS OF URETHRA&URI NARY TRACT 10087 OSTEOARTHRO 03-09-2009 Mamta DUEÑAS INVLV MX CHELSY [place] SITES BUT NOT SPEC GEN 07290 OTHER 02-18-2009 [facility] ABNORMAL EMERGENCY GLUCOSE SERVICES ASSOCIATES V5883 ENCOUNTER 01-25-2009 CARDIOLOG[facility] FOR ASSOCIATES THERAPEUTIC OF DRUG ORONOCO MONITORING 4580 ORTHOSTATIC 01-14-2009 [facility] AMBULANCE HYPOTENSION SERVICE 70435 ASPHYXIA 01-14-2009 [facility] IM[facility] ASSOCIATES 7336 TIETZES 12-16-2008 [facility] DISEASE [place] INTERNAL MED 06874 STOMATITIS 12-04-2008 [facility] DUEÑAS MUCOSITIS UNSPECIFIED 9778 POISONING 11-26-2008 [facility] OTHER SPEC EMERGENCY DRUGS&MEDIC SERVICES INAL ASSOCIATES SUBSTANCES 77673 UNSPECIFIED 10-30-2008 EMERY DUEÑAS OF CHELSY [place] ANKLE SPRAIN AND STRAIN E8498 OTHER 10-28-[address] [place] [address] OF IMAGING OCCURRENCE ASSOCIATES E8859 FALL FROM 10-28-2008 [facility] OTHER MEDICAL SLIPPING IMAGING TRIPPING OR ASSOCIATES STUMBLING 7873 FLATULENCE 10-21-2008 [place] MEDICAL ERUCTATION SERV AND GAS FOUNDATIO PAIN 06028 VOMITING 09-22-2008 [facility] EMERGENCY SERVICES ASSOCIATES 33132 VARIANTS 08-06-2008 AR[facility]ISSA, MIGRAINE CHELSY [place] NEC INTRACT MIGRAINE W/O [place] [address] UNS 07-24-2008 [facility]ISSA, GASTRITIS&G CHELSY [place] ASTRODUODIT IS W/O MENTION HEMORR 20351 ABDOMINAL/P 05-25-2008 [facility] ELVIC [facility] S[facility]LL[facility] INC MASS/LUMP UNSPEC SITE 80160 NEPHROTIC 04-27-2008 [facility] SYND W/OTH [facility] PATHAL LES INC DZ CLASS ELSW 25854 OTHER SPEC 04-15-2008 [place] MEDICAL GASTRITIS SERV WITHOUT FOUNDATIO MENTION HEMORRHAGE 94754 ERYTHEMA 03-04-2008 [facility] DUE TO BURN [facility] OF INC ABDOMINAL WALL 28188 BLISTERS 03-04-2008 RODRIGUEZ W/EPIDERMAL NATIONAL LOSS DUE CORPORATION BURN ABD WALL 86666 DERMATITIS 02-23-2008 [facility] DUE TO [facility] OTHER INC RADIATION 84644 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-2007 [facility] CARDIOLOGY OS[place] POWERPLANT OPERATOR CORONARY ARTERY 14294 OTHER 12-18-2007 [facility] DYSPNEA AND [facility] RESPIRATORY ABNORMALITI ES 7931 NONSPEC 12-18-2007 [facility] FIND RAD [facility] OTH EXAM HOSP BODY STRUCT LUNG FIELD 02820 NONSPECIFIC 12-18-2007 [facility] ABNORMAL [facility] ELECTROCARD HOSP IOGRAM V142 PERSONAL 12-18-2007 [facility] HISTORY OF [facility] ALLERGY TO HOSP SULFONAMIDE S 2443 OTHER 10-04-2007 [facility] IS PROF SERV 2810 PERNICIOUS 09-20-2007 [facility] ANEMIA [place] INTERNAL MED 7244 THORACIC/ANIL 09-17-2007 TIANNA HOFF NEURITIS/RA DICULITIS UNSPEC 7246 DISORDERS 09-17-2007 JASPAL HOFF SACRUM ERVIN [place]man 0340 STREPTOCOCC 09-12-2007 [facility] AL SORE [place] THROAT INTERNAL MED 4149 UNSPECIFIED 08-30-2007 [facility] CHRONIC [place] ISCHEMIC INTERNAL HEART MED DISEASE 3569 UNSPEC 08-20-2007 [facility] HEREDIT&IDI [facility] OPATHIC INC PERIPHERAL NEUROPATHY 7812 ABNORMALITY 08-20-2007 [facility] GAIT CHUCK 7820 DISTURBANCE 08-20-2007 [facility] SKIN CHUCK SENSATION Medications Na ND Rx Da Fi Fi Am Da Di Ph RX Ph St me C No te ll ll ou ys ag ar # ys at rm s nt no ma ic us Or Da si cy ia de te s n re d BE 65 09 10 00 9. 3 RI 80 GA Ac NZ 16 -2 -0 00 TE 16 IN ti ON 20 5- 8- 0 34 EY ve AT 53 20 20 AI AT 61 09 09 D PR E 0 PH CH 10 AR AE 0 M L MG #3 S 93 CA 8 PS UL E HY 00 08 10 01 90 30 RI [address] 18 -0 -0 .0 TE 42 AN ti OX 50 2- 8- 00 25 TA ve YZ 61 20 20 AI IN 50 09 09 D RA E 1 PH ME PA AR SH M M 50 #3 93 MG 8 CA P NO 00 09 10 01 10 25 RI 79 AR Ac VO 16 -0 -0 .0 TE 81 NO ti LI 91 2- 8- 00 84 LD ve N 83 20 20 AI 70 71 09 09 D RI -3 1 PH CH 0 AR AR 10 M D 0 #3 W UN 93 IT 8 /M L AL ZY 00 08 09 01 30 30 RI 79 GH Ac UT 00 -0 -2 .0 TE 42 AN ti EX 24 2- 4- 00 23 TA ve A 11 20 20 AI 5 53 09 09 D RA MG 0 PH ME AR SH TA M BL #3 ET 93 8 60 09 09 00 20 10 EA 14 AR Ac 50 -1 -[address] 27 NO ti 51 5- 4- 00 SI 01 LD ve 30 20 20 DE 90 09 09 RI 1 PH CH AR AR MA D CY W OF CY NT HI AN A NO 00 09 09 00 10 25 [...] 01 30 30 RI 79 GH Ac UT 00 -0 -1 .0 TE 42 AN ti EX 24 2- 0- 00 23 TA ve A 11 20 20 AI 5 53 09 09 D RA MG 0 PH ME AR SH TA M BL #3 ET 93 8 CE 00 08 09 00 20 10 RI 79 MC Ac FD 78 -2 -1 .0 TE 76 KE ti IN 12 8- 0- 00 43 PR ve IR 17 20 20 AI E 66 09 09 D JR 30 0 PH 0 AR WI MG M LL #3 IA CA 93 M PS 8 F UL E BI 00 02 08 06 30 30 RI 77 AR Ac SO 37 -1 -2 .0 TE 04 NO ti UT 80 2- 7- 00 86 LD ve [...] 20 AI LI 70 09 09 D PR N 5 PH CH 50 AR AE [...] MC 93 G 8 TA BL ET NO 00 08 08 00 10 26 RI 79 LE Ac VO 16 -0 -1 .0 TE 42 VY ti LI 91 3- 3- 00 28 ve N 83 20 20 AI LI 70 71 09 09 D ZA -3 1 PH 0 AR 10 M 0 #3 UN 93 IT 8 /M L AL TR 60 05 08 02 30 30 RI 78 AR Ac IA 50 -1 -1 .0 TE 46 NO ti MT 52 8- 3- 00 61 LD ve ER 65 20 20 AI EN 70 09 09 D RI E- 1 PH CH HC AR AR TZ M D #3 W 75 93 -5 8 0 MG TA B ZY 00 08 08 00 30 30 RI 79 GH Ac UT 00 -0 -1 .0 TE 42 AN ti EX 24 2- 3- 00 24 TA ve A 41 20 20 AI 15 53 09 09 D RA 0 PH ME MG AR SH M TA #3 BL 93 ET 8 HY 00 08 08 00 90 30 [...] M S/ #3 ML 93 8 AL 00 07 07 00 30 30 RI 79 AR Ac 08 -2 -3 .0 TE 27 NO ti 51 1- 0- 00 16 LD ve 71 20 20 AI 80 09 09 D RI 2 PH CH AR AR M D #3 W 93 8 IN 00 05 07 01 90 30 RI 78 AR Ac DO 37 -1 -3 .0 TE 40 NO ti ME 80 3- 0- 00 02 LD ve TH 14 20 20 AI AC 70 09 09 D RI IN 1 PH CH AR AR 50 M D #3 W MG 93 8 CA PS UL E CL 00 07 07 00 90 30 RI 79 AR Ac ON 09 -2 -3 .0 TE 27 NO ti AZ 30 2- 0- 00 50 LD ve EP 83 20 20 AI AM 30 09 09 D RI 1 1 PH CH AR AR MG M D #3 W TA 93 BL 8 ET GL 00 07 07 03 30 30 [...] W 93 CA 8 PS UL E BI 00 02 07 05 30 30 RI 77 AR Ac SO 37 -1 -3 .0 TE 04 NO ti UT 80 2- 0- 00 86 LD ve OL 52 20 20 AI OL 39 09 09 D RI 3 PH CH FU AR AR MA M D RA #3 W TE 93 5 8 MG TA B FU 00 07 07 00 30 30 RI 79 AR Ac RO 37 -2 -3 .0 TE 27 NO ti SE 80 1- 0- 00 15 LD ve PR 21 20 20 AI DE 61 09 09 D RI 0 PH CH 40 AR AR M D MG #3 W 93 TA 8 BL ET LE 00 07 07 00 [...] #3 W TA 93 BL 8 ET HY 68 06 07 01 60 20 RI [address] 46 -3 -3 .0 TE 00 NO ti OX 20 0- 0- 00 85 LD ve YZ 36 20 20 AI IN 10 09 09 D RI E 1 PH CH HC AR AR L M D 25 #3 W 93 MG 8 TA BL ET AZ 59 07 07 00 6. 5 RI 79 AR Ac IT 76 -2 -3 00 TE 27 NO ti HR 23 1- 0- 0 13 LD ve OM 06 20 20 AI YC 00 09 09 D RI IN 1 PH CH AR AR 25 M D 0 #3 W MG 93 8 TA BL ET LA 00 07 07 00 20 30 RI 79 AR Ac NT 08 -1 -3 .0 TE 23 NO ti US 82 8- 0- 00 51 LD ve 22 20 20 AI 10 03 09 09 D RI 0 3 PH CH UN AR AR IT M D S/ #3 W ML 93 8 AL 00 06 07 01 30 30 RI 78 No Ac 09 -0 -1 .0 TE 73 t ti 37 4- 6- 00 43 Av ve 24 20 20 AI ai 20 09 09 D la 6 PH bl AR e M #3 93 8 TR 60 05 07 01 30 30 RI 78 AR Ac IA 50 -1 -1 .0 TE 46 NO ti MT 52 8- 6- 00 61 LD ve ER 65 20 20 AI EN 70 09 09 D RI E- 1 PH CH HC AR AR TZ M D #3 W 75 93 -5 8 0 MG TA B TR 00 05 07 01 12 30 RI 78 AR Ac AM 09 -1 -1 0. TE 40 NO ti AD 30 3- 6- 00 03 LD ve OL 05 20 20 0 AI 80 09 09 D RI HC 1 PH CH L AR AR 50 M D #3 W MG 93 8 TA BL ET CE 00 07 07 00 20 [...] 8 TA BL ET GL 00 07 07 02 30 30 RI 74 HU Ac YB 09 -1 -0 .0 TE 18 NT ti UR 39 7- 2- 00 52 ER ve ID 36 20 20 AI E 41 08 09 D NA 5 0 PH NC MG AR Y M C TA #3 BL 93 ET 8 VY 66 05 07 01 30 30 [...] -1 -0 .0 TE 04 NO ti UT 80 2- 2- 00 86 LD ve OL 52 20 20 AI OL 39 09 09 D RI 3 PH CH FU AR AR MA M D RA #3 W TE 93 5 8 MG TA B ME 00 06 07 00 21 6 EA 13 BE Ac TH 78 -2 -[address] 25 SS ti YL 15 4- 2- 00 SI 15 ON ve UT 02 20 20 DE ED [address] NI 7 PH EP SO AR HE LO MA N NE CY A 4 OF MG CY NT DO HI SE AN PK A ME 60 06 07 00 30 30 [...] MC 93 G 8 TA BL ET NO 00 05 06 00 10 30 RI 78 AR Ac VO 16 -3 -1 .0 TE 62 NO ti LI 91 1- 8- 00 73 LD ve N 83 20 20 AI 70 71 09 09 D RI -3 1 PH CH 0 AR AR 10 M D 0 #3 W UN 93 IT 8 /M L AL NI 00 06 06 00 14 7 [...] W /5 93 8 ML PHELPS SP 00 06 06 00 90 30 RI 78 No Ac 09 -0 -1 .0 TE 73 t ti 34 4- 8- 00 42 Av ve 35 20 20 AI ai 60 09 09 D la 1 PH bl AR e M #3 93 8 LA 00 07 06 04 20 28 RI 74 AR Ac NT 08 -1 -1 .0 TE 16 NO ti US 82 6- 8- 00 17 LD ve 22 20 20 AI 10 03 08 09 D RI 0 3 PH CH UN AR AR IT M D S/ #3 W ML 93 8 AL LO 00 06 06 06 30 30 RI 75 AR Ac RA 78 -1 -0 .0 TE 32 NO ti TA 15 9- 4- 00 00 LD ve DI 07 20 20 AI NE 70 08 09 D RI 1 PH CH 10 AR AR M D MG #3 W 93 TA 8 BL ET 00 05 06 00 40 10 RI 78 AR Ac 40 -1 -0 .0 TE 46 NO ti 60 8- 4- 00 62 LD ve 35 20 20 AI 90 09 09 D RI 1 PH CH AR AR M D #3 W 93 8 60 05 06 00 24 6 RI [...] 93 -5 8 0 MG TA B BI 00 02 06 03 30 30 RI 77 AR Ac SO 37 -1 -0 .0 TE 04 NO ti UT 80 2- 4- 00 86 LD ve OL 52 20 20 AI OL 39 09 09 D RI 3 PH CH FU AR AR MA M D RA #3 W TE 93 5 8 MG TA B GL 00 07 06 01 30 30 [...] #3 W TA 93 BL 8 ET 00 05 05 00 60 30 RI [...] AR e M #3 93 8 00 05 05 00 60 15 RI 78 AR Ac 60 -0 -2 .0 TE 30 NO ti 35 5- 1- 00 57 LD ve 46 20 20 AI 72 09 09 D RI 8 PH CH AR AR M D #3 W 93 8 UT 37 05 05 00 28 28 RI 78 AR Ac IL 00 -0 -2 .0 TE 25 NO ti OS 00 4- 1- 00 86 LD ve EC 45 20 20 AI 50 09 09 D RI OT 3 PH CH C AR AR 20 M D .6 #3 W 93 MG 8 TA BL ET TR 00 05 05 00 12 30 [...] ti LI 91 8- 1- 00 90 PR ve N 83 20 20 AI E 70 71 08 09 D JR -3 1 PH 0 AR WI 10 M LL 0 #3 IA UN 93 M IT 8 F /M L AL IN 00 05 05 00 90 30 RI 78 AR Ac DO 37 -1 -2 .0 TE 40 NO ti ME 80 3- 1- 00 02 LD ve TH 14 20 20 AI AC 70 09 09 D RI IN 1 PH CH AR AR 50 M D #3 W MG 93 8 CA PS UL E LE 00 07 05 07 30 30 [...] AN RA 30 09 09 D TO PR 5 PH NI DE AR O M [...] #3 W 93 TA 8 BL ET GO 52 04 05 00 40 1 RI 78 HAYDEN Ac LY 26 -2 -0 00 TE 16 SC ti TE 80 2- 7- .0 50 H ve LY 10 20 20 00 AI AN 00 09 09 D TO SO 1 PH NI ANIL AR O TI M ON #3 93 8 00 03 05 00 90 30 RI 78 AR Ac 17 -1 -0 .0 TE 07 NO ti 25 9- 7- 00 82 LD ve 66 20 20 AI 46 09 09 D RI 0 PH CH AR AR M D #3 W 93 8 GL 00 07 05 00 30 30 RI 74 HU Ac YB 09 -1 -0 .0 TE 18 NT ti UR 39 7- 7- 00 52 ER ve ID 36 20 20 AI E 41 08 09 D NA 5 0 PH NC MG AR Y M C TA #3 BL 93 ET 8 BA 00 10 04 03 60 30 RI 75 OC Ac CL 17 -1 -2 .0 TE 43 ON ti OF 24 7- 3- 00 59 NE ve EN 09 20 20 AI LL 66 08 09 D 10 0 PH TATO AR HN MG M #3 TA 93 BL 8 ET 00 06 04 02 30 30 RI 76 OC Ac 09 -2 -2 .0 TE 24 ON ti 37 5- 3- 00 70 NE ve 15 20 20 AI LL 55 08 09 D 6 PH TAT[place] AR HN M #3 93 8 DI 00 04 04 00 30 6 [...] 09 D RI TA 1 PH CH PR AR AR N- M D CA #3 W FF 93 8 50 -3 25 -4 0 CI 00 04 04 00 20 10 RI 77 AR Ac UT 17 -1 -2 .0 TE 97 NO ti OF 25 3- 3- 00 44 LD ve LO 31 20 20 AI XA 26 09 09 D RI CI 0 PH CH N AR AR HC M D L #3 W 50 93 0 8 MG TA B 00 04 04 00 47 12 RI [...] -1 -2 .0 TE 04 NO ti UT 80 2- 3- 00 86 LD ve OL 52 20 20 AI OL 39 09 09 D RI 3 PH CH FU AR AR MA M D RA #3 W TE 93 5 8 MG TA B TR 50 03 04 00 30 30 RI 77 No Ac AZ 11 -1 -0 .0 TE 82 t ti OD 10 2- 9- 00 09 Av ve ON 43 20 20 AI ai E 30 09 09 D la 50 1 PH bl AR e MG M #3 TA 93 BL 8 ET 00 03 04 00 90 30 RI 77 No Ac 09 -1 -0 .0 TE 82 t ti 34 2- 9- 00 08 Av ve 35 20 20 AI ai 60 09 09 D la 1 PH bl AR e M #3 93 8 00 03 04 00 30 30 RI [...] W 93 TA 8 BL ET 00 01 03 01 60 30 RI [...] #3 W BL 93 ET 8 00 03 03 00 90 30 RI [...] ML 93 8 AL BI 00 02 03 01 30 30 RI 77 AR Ac SO 37 -1 -2 .0 TE 04 NO ti UT 80 2- 6- 00 86 LD ve OL 52 20 20 AI OL 39 09 09 D RI 3 PH CH FU AR AR MA M D RA #3 W TE 93 5 8 MG TA B 00 01 03 01 90 30 RI 76 No Ac 09 -2 -1 .0 TE 88 t ti 34 9- 2- 00 89 Av ve 35 20 20 AI ai 60 09 09 D la 1 PH bl AR e M #3 93 8 CL 00 12 03 03 60 30 RI 76 AR Ac ON 09 -3 -1 .0 TE 45 NO ti AZ 30 0- 2- 00 30 LD ve EP 83 20 20 AI AM 20 08 09 D RI 1 PH CH 0. AR AR 5 M D MG #3 W 93 TA 8 BL ET DE 00 12 03 02 30 30 RI 76 AR Ac TR 00 -3 -1 .0 TE 46 NO ti OL 95 0- 2- 00 01 LD ve 19 20 20 AI LA 10 08 09 D RI 4 1 PH CH AR AR MG M D #3 W CA 93 PS 8 UL E LO 00 06 03 04 30 30 RI 75 AR Ac RA 78 -1 -1 .0 TE 32 NO ti TA 15 9- 2- 00 00 LD ve DI 07 20 20 AI NE 70 08 09 D RI 1 PH CH 10 AR AR M D MG #3 W 93 TA 8 BL ET NO 00 11 03 02 10 30 RI 75 MC Ac VO 16 -0 -1 .0 TE 72 KE ti LI 91 8- 2- 00 90 PR ve N 83 20 20 AI E 70 71 08 09 D JR -3 1 PH 0 AR WI 10 M LL 0 #3 IA UN 93 M IT 8 F /M L AL BI 00 02 02 00 30 30 RI 77 AR Ac SO 37 -1 -2 .0 TE 04 NO ti UT 80 2- 6- 00 86 LD ve OL 52 20 20 AI OL 39 09 09 D RI 3 PH CH FU AR AR MA M D RA #3 W TE 93 5 8 MG TA B CI 00 02 02 00 20 10 RI 77 AR Ac UT 17 -1 -2 .0 TE 04 NO [...] W BL 93 ET 8 00 10 02 02 60 30 RI 75 OC Ac 04 -1 -2 .0 TE 43 ON ti 50 7- 6- 00 58 NE ve 64 20 20 AI LL 06 08 09 D 5 PH TATO AR HN M #3 93 8 BU 00 02 02 00 60 15 RI 77 AR Ac TA 60 -1 -2 .0 TE 04 NO ti LB 32 2- 6- 00 85 LD ve -A 54 20 20 AI CE 42 09 09 D RI TA 1 PH CH PR AR AR N- M D CA #3 W FF 93 8 50 -3 25 -4 0 00 01 02 01 40 20 RI [...] #3 TA 93 BL 8 ET 00 06 02 01 30 30 RI [...] 93 G 8 TA BL ET 00 01 02 00 60 30 RI [...] W 93 TA 8 BL ET 00 01 02 00 30 30 RI 76 RI Ac 09 -2 -1 .0 TE 88 TE ti 37 9- 2- 00 88 ve 24 20 20 AI AI 20 09 09 D D 6 PH PH AR AR M MA #3 CY 93 8 #3 93 8 00 01 02 00 90 30 RI 76 RI Ac 09 -2 -1 .0 TE 88 TE ti 34 9- 2- 00 89 ve 35 20 20 AI AI 60 09 09 D D 1 PH PH AR AR M MA #3 CY 93 8 #3 93 8 TR 50 01 02 00 30 30 RI 76 RI Ac AZ 11 -2 -1 .0 TE 88 TE ti OD 10 9- 2- 00 93 ve ON 43 20 20 AI AI E 30 09 09 D D 50 1 PH PH AR AR MG M MA #3 CY TA 93 BL 8 #3 ET 93 8 55 01 02 00 9. 30 RI 76 AR Ac 11 -3 -1 00 TE 87 NO ti 10 0- 2- 0 98 LD ve 73 20 20 AI 70 09 09 D RI 9 PH CH AR AR M D #3 W 93 8 GL 00 07 01 05 30 30 RI 74 AR Ac YB 09 -1 -3 .0 TE 16 NO ti UR 39 6- 0- 00 15 LD ve ID 36 20 20 AI E 41 08 09 D RI 5 0 PH CH MG AR AR M D TA #3 W BL 93 ET 8 60 01 01 00 18 7 [...] W 93 CA 8 PS UL E TI 55 02 01 00 60 30 RI 76 OC Ac ZA 11 -0 -3 .0 TE 75 ON ti NI 10 8- 0- 00 52 NE ve DI 17 20 20 AI LL NE 91 08 09 D 5 PH TATO HC AR HN L M 2 #3 MG 93 8 TA BL ET NO 00 11 01 01 10 30 RI 75 MC Ac VO 16 -0 -3 .0 TE 72 KE ti LI 91 8- 0- 00 90 PR ve N 83 20 20 AI E 70 71 08 09 D JR -3 1 PH 0 AR WI 10 M LL 0 #3 IA UN 93 M IT 8 F /M L AL ME 00 01 01 00 90 30 RI 76 HAYDEN Ac TO 09 -0 -3 .0 TE 67 SC ti CL 32 7- 0- 00 19 H ve OP 20 20 20 AI AN RA 30 09 09 D TO PR 5 PH NI DE AR O M 10 #3 93 MG 8 TA BL ET CL 00 12 01 01 60 30 RI 76 AR Ac ON 09 -3 -3 .0 TE 45 NO ti AZ 30 0- 0- 00 30 LD ve EP 83 20 20 AI AM 20 08 09 D RI 1 PH CH 0. AR AR 5 M D MG #3 W 93 TA 8 BL ET 00 01 01 00 40 20 RI [...] #3 TA 93 BL 8 ET 00 10 01 01 60 30 RI 75 OC Ac 04 -1 -1 .0 TE 43 ON ti 50 7- 5- 00 58 NE ve 64 20 20 AI LL 06 08 09 D 5 PH TATO AR HN M #3 93 8 00 12 01 00 90 30 RI 76 RI Ac 09 -2 -1 .0 TE 52 TE ti 34 2- 5- 00 21 ve 35 20 20 AI AI 60 08 09 D D 1 PH PH AR AR M MA #3 CY 93 8 #3 93 8 DE 00 12 01 00 30 30 RI 76 AR Ac TR 00 -3 -1 .0 TE 46 NO ti OL 95 0- 5- 00 01 LD ve 19 20 20 AI LA 10 08 09 D RI 4 1 PH CH AR AR MG M D #3 W CA 93 PS 8 UL E 00 12 01 00 60 30 RI 76 AR Ac 09 -3 -1 .0 TE 45 NO ti 35 0- 5- 00 99 LD ve 50 20 20 AI 20 08 09 D RI 1 PH CH AR AR M D #3 W 93 8 CL 00 12 01 00 60 30 RI 76 AR Ac ON -3 -1 .0 TE 45 NO ti AZ 30 0- 5- 00 30 LD ve EP 83 20 20 AI AM 20 08 09 D RI 1 PH CH 0. AR AR 5 M D MG #3 W 93 TA 8 BL ET BI 00 03 01 03 30 30 RI 72 MC Ac SO 37 -0 -0 .0 TE 32 KE ti UT 80 6- 1- 00 28 PR ve OL 52 20 20 AI E [...] TATO AR HN M #3 93 8 LO 00 06 01 02 30 30 RI 75 AR Ac RA 78 -1 -0 .0 TE 32 NO ti TA 15 9- 1- 00 00 LD ve DI 07 20 20 AI NE 70 08 09 D RI 1 PH CH 10 AR AR M D MG #3 W 93 TA 8 BL ET UT 00 09 01 01 40 20 RI [...] 8 TA BL ET GL 00 07 01 04 [...] 8 TA BL ET CL 00 06 12 05 60 30 [...] 00 60 30 RI 76 AR Ac UT 09 -1 -1 .0 TE 18 NO ti OX 30 0- 8- 00 98 LD ve EN 14 20 20 AI 90 08 08 D RI 50 1 PH CH 0 AR AR MG M D #3 W TA 93 BL 8 ET 00 12 12 00 15 15 RI 76 No Ac 09 -0 -1 .0 TE 04 t ti 37 1- 8- 00 07 Av ve 24 20 20 AI ai 20 08 08 D la 6 PH bl AR e M #3 93 8 37 11 12 00 28 28 RI 75 HAYDEN Ac 00 -2 -0 .0 TE 89 SC ti 00 0- 4- 00 59 H ve 05 20 20 AI AN 84 08 08 D TO 5 PH NI AR O M #3 93 8 LO 00 06 11 01 30 30 [...] 34 2- 0- 00 11 LD ve UT 59 20 20 AI ED 31 08 08 D RI NI 5 PH CH SO AR AR LO M D NE #3 W 4 93 8 MG DO SE PK 00 11 11 00 90 30 RI 75 AR Ac 09 -0 -2 .0 TE 63 NO ti 31 2- 0- 00 10 LD ve 04 20 20 AI 30 08 08 D RI 1 PH CH AR AR M D #3 W 93 8 LA 00 07 11 02 20 28 RI 74 AR Ac NT 08 -1 -2 .0 TE 16 NO ti US 82 6- 0- 00 17 LD ve 22 20 20 AI 10 03 08 08 D RI 0 3 PH CH UN AR AR IT M D S/ #3 W ML 93 8 AL LE 00 07 11 03 30 30 RI 74 AR Ac VO 37 -1 -2 .0 TE 16 NO ti TH 81 6- 0- 00 14 LD ve YR 80 20 20 AI OX 50 08 08 D RI IN 1 PH CH E AR AR 75 M D #3 W MC 93 G 8 TA BL ET NO 00 11 11 00 10 30 RI 75 MC Ac VO 16 -0 -2 .0 TE 72 KE ti LI 91 8- 0- 00 90 PR ve N 83 20 20 AI E 70 71 08 08 D JR -3 1 PH 0 AR WI 10 M LL 0 #3 IA UN 93 M IT 8 F /M L AL BI 00 03 11 02 30 30 RI 72 MC Ac SO 37 -0 -2 .0 TE 32 KE ti UT 80 6- 0- 00 28 PR ve OL 52 20 20 AI E OL 39 08 08 D JR 3 PH FU AR WI MA M LL RA #3 IA TE 93 M 5 8 F MG TA B 00 10 10 00 60 30 RI [...] M #3 93 8 LO 00 06 10 00 30 30 RI 75 AR Ac RA 78 -1 -2 .0 TE 32 NO ti TA 15 9- 3- 00 00 LD ve DI 07 20 20 AI NE 70 08 08 D RI 1 PH CH 10 AR AR M D MG #3 W 93 TA 8 BL ET BA 00 10 10 00 60 30 RI 75 OC Ac CL 17 -1 -2 .0 TE 43 ON ti OF 24 59 NE ve EN 09 20 20 AI LL 66 08 08 D 10 0 PH TATO AR HN MG M #3 TA 93 BL 8 ET 00 08 10 00 90 30 RI 75 No Ac 09 -2 -0 .0 TE 08 t ti 31 8- 9- 00 05 Av ve 04 20 20 AI ai 30 08 08 D la 1 PH bl AR e M #3 93 8 BU 00 09 10 00 60 15 RI 75 AR Ac TA 60 -2 -0 .0 TE 08 NO ti LB 32 2- 9- 04 LD ve -A 54 20 20 AI CE 42 08 08 D RI TA 1 PH CH PR AR AR N- M D CA #3 W FF 93 8 50 -3 25 -4 0 CI 00 09 10 00 20 10 RI 75 AR Ac UT 17 -2 -0 .0 TE 17 NO ti OF 25 31 LD ve LO 31 20 20 AI XA 26 08 08 D RI CI 0 PH CH N AR AR HC M D L #3 W 50 93 0 8 MG TA B CL 00 06 10 03 60 30 RI 73 AR Ac ON 09 -0 -0 .0 TE 62 NO ti AZ 30 67 LD ve EP 83 20 20 AI AM 20 08 08 D RI 1 PH CH 0. AR AR 5 M D MG #3 W 93 TA 8 BL ET GL 00 07 10 02 30 30 RI 74 AR Ac YB 09 -1 -0 .0 TE 16 NO ti UR 39 6 9- 00 15 LD ve ID 36 20 20 AI E 41 08 08 D RI 5 0 PH CH MG AR AR M D TA #3 W BL 93 ET 8 LE 00 07 10 02 30 30 RI 74 AR Ac VO 37 -1 -0 .0 TE 16 NO ti TH 81 6 9- 00 14 LD ve YR 80 20 20 AI OX 50 08 08 D RI IN 1 PH CH E AR AR 75 M D #3 W MC 93 G 8 TA BL ET UT 00 09 09 00 40 20 RI 74 AR Ac OC 09 -1 -2 .0 TE 92 NO ti HL 39 1- 6- 00 87 LD ve OR 65 20 20 AI PE 20 08 08 D RI RA 1 PH CH ZI AR AR NE M D #3 W 10 93 8 MG TA B TR 00 09 09 00 40 8 RI 74 AR Ac AM 09 -1 -2 .0 TE 92 NO ti AD 30 1- 6- 00 88 LD ve OL 05 20 20 AI 80 08 08 D RI HC 1 PH CH L AR AR 50 M D #3 W MG 93 8 TA BL ET UT 37 09 09 00 28 28 RI 74 AR Ac IL 00 -1 -2 .0 TE 92 NO ti OS 00 1- 6- 00 85 LD ve EC 45 20 20 AI 50 08 08 D RI OT 2 PH CH C AR AR 20 M D .6 #3 W 93 MG 8 TA BL ET AM 00 09 09 00 30 10 RI 74 AR Ac OX 09 -0 -1 .0 TE 83 NO ti IC 33 4- 1- 00 11 LD ve IL 10 20 20 AI LI 90 08 08 D RI N 5 PH CH 50 AR AR 0 M D MG #3 W 93 CA 8 PS UL E ME 00 09 09 00 21 6 RI 74 AR Ac TH 60 -0 -1 .0 TE 83 NO ti YL 34 4- 1- 00 10 LD ve UT 59 20 20 AI ED 31 08 08 D RI NI 5 PH CH SO AR AR LO M D NE #3 W 4 93 8 MG DO SE PK HY 68 06 09 00 12 30 RI [address] 46 -2 -1 0. TE 83 t ti OX 20 6- 1- 00 75 Av ve YZ 36 20 20 0 AI ai IN 20 08 08 D la E 1 PH bl HC AR e L M 50 #3 93 MG 8 TA BL ET LE 00 07 09 01 30 30 [...] TA 8 BL ET GL 00 07 09 01 [...] 93 PS 8 UL E 00 06 09 01 30 30 RI 73 No Ac 09 -2 -1 .0 TE 90 t ti 37 5- 1- 00 75 Av ve 15 20 20 AI ai 55 08 08 D la 6 PH bl AR e M #3 93 8 LA 00 07 09 01 20 28 RI 74 AR Ac NT 08 -1 -1 .0 TE 16 NO ti US 82 6- 1- 00 17 LD ve 22 20 20 AI 10 03 08 08 D RI 0 3 PH CH UN AR AR IT M D S/ #3 W ML 93 8 AL NO 00 12 09 04 10 30 RI 70 MC Ac VO 16 -0 -1 .0 TE 85 KE ti LI 91 1- 1- 00 61 PR ve N 83 20 20 AI E 70 71 07 08 D JR -3 1 PH 0 AR WI 10 M LL 0 #3 IA UN 93 M IT 8 F /M L AL GL 00 07 08 01 30 30 RI 74 AR Ac YB 09 -1 -2 .0 TE 16 NO ti UR 39 6- 8- 00 15 LD ve ID 36 20 20 AI E 41 08 08 D RI 5 0 PH CH MG AR AR M D TA #3 W BL 93 ET 8 LO 00 06 08 02 30 30 RI 73 AR Ac RA 78 -1 -2 .0 TE 79 NO ti TA 15 9- 8- 00 67 LD ve DI 07 20 20 AI NE 70 08 08 D RI 1 PH CH 10 AR AR M D MG #3 W 93 TA 8 BL ET CL 00 06 08 02 60 30 [...] MC 93 G 8 TA BL ET NO 00 12 08 04 10 30 RI 70 MC Ac VO 16 -0 -2 .0 TE 85 KE ti LI 91 1- 8- 00 61 PR ve N 83 20 20 AI E 70 71 07 08 D JR -3 1 PH 0 AR WI 10 M LL 0 #3 IA UN 93 M IT 8 F /M L AL 00 06 08 01 30 30 RI 73 No Ac 09 -2 -2 .0 TE 90 t ti 37 5- 8- 00 75 Av ve 15 20 20 AI ai 55 08 08 D la 6 PH bl AR e M #3 93 8 LE 00 07 08 00 30 30 RI 74 AR Ac VO 37 -1 -0 .0 TE 16 NO ti TH 81 6- 1- 00 14 LD ve YR 80 20 20 AI OX 50 08 08 D RI IN 1 PH CH E AR AR 75 M D #3 W MC 93 G 8 TA BL ET TR 50 07 08 00 30 30 RI 74 No Ac AZ 11 -2 -0 .0 TE 28 t ti OD 10 4- 1- 00 12 Av ve ON 43 20 20 AI ai E 40 08 08 D la 10 1 PH bl 0 AR e MG M #3 TA 93 BL 8 ET LO 00 06 08 01 30 30 RI 73 AR Ac RA 78 -1 -0 .0 TE 79 NO ti TA 15 9- 1- 00 67 LD ve DI 07 20 20 AI NE 70 08 08 D RI 1 PH CH 10 AR AR M D MG #3 W 93 TA 8 BL ET 00 07 08 00 90 30 RI 74 No Ac 09 -2 -0 .0 TE 28 t ti 31 4- 1- 00 10 Av ve 04 20 20 AI ai 30 08 08 D la 1 PH bl AR e M #3 93 8 00 07 08 00 30 30 RI 74 No Ac 09 -2 -0 .0 TE 28 t ti 37 4- 1- 00 08 Av ve 24 20 20 AI ai 20 08 08 D la 6 PH bl AR e M #3 93 8 LA 00 07 08 00 20 28 RI 74 AR Ac NT 08 -1 -0 .0 TE 16 NO ti US 82 6- 1- 00 17 LD ve 22 20 20 AI 10 03 08 08 D RI 0 3 PH CH UN AR AR IT M D S/ #3 W ML 93 8 AL GL 00 07 08 00 30 30 RI 74 AR Ac YB 09 -1 -0 .0 TE 16 NO ti UR 39 6- 1- 00 15 LD ve ID 36 20 20 AI E 41 08 08 D RI 5 0 PH CH MG AR AR M D TA #3 W BL 93 ET 8 DE 00 07 08 00 30 30 [...] 8 TA BL ET CL 00 06 07 01 60 30 [...] ti LI 91 1- 7- 00 61 PR ve N 83 20 20 AI E 70 71 07 08 D JR -3 1 PH 0 AR WI 10 M LL 0 #3 IA UN 93 M IT 8 F /M L AL 00 06 07 00 90 30 RI 73 No Ac 09 -2 -0 .0 TE 90 t ti 31 6- 3- 00 74 Av ve 04 20 20 AI ai 30 08 08 D la 1 PH bl AR e M #3 93 8 DU 49 04 07 02 18 30 PU 18 No Ac ON 50 -2 -0 0. LM 03 t ti EB 20 1- 3- 00 O 39 Av ve 67 20 20 0 DO 9 ai 0. 26 08 08 SE la 5 0 bl MG PH e -3 AR MA MG CY /3 ML SO LN UT 00 06 07 00 40 10 RI 73 AR Ac OM 60 -1 -0 .0 TE 79 NO ti ET 35 9- 3- 00 68 LD ve GIBBS 43 20 20 AI ZI 82 08 08 D RI NE 1 PH CH AR AR 25 M D #3 W MG 93 8 TA BL ET AZ 59 06 07 00 6. 5 [...] #3 BL 93 ET 8 00 06 07 00 30 30 RI [...] #3 93 MG 8 TA BL ET LI 00 06 07 00 30 30 RI 73 No Ac SI 37 -2 -0 .0 TE 90 t ti NO 82 5- 3- 00 76 Av ve UT 07 20 20 AI ai IL 20 08 08 D la 1 PH bl 2. AR e 5 M MG #3 93 TA 8 BL ET TR 50 06 07 00 30 30 RI 73 No Ac AZ 11 -2 -0 .0 TE 90 t ti OD 10 6- 3- 00 71 Av ve ON 43 20 20 AI ai E 40 08 08 D la 10 1 PH bl 0 AR e MG M #3 TA 93 BL 8 ET IO 00 06 06 00 18 9 RI 73 AR Ac PH 60 -0 -1 0. TE 62 NO ti EN 31 5- 2- 00 30 LD ve 33 20 20 0 AI DM 05 08 08 D RI -N 8 PH CH R AR AR LI M D QU #3 W ID 93 8 00 06 06 00 5. 5 RI 73 AR Ac 04 -0 -1 00 TE 62 NO ti 51 5- 2- 0 29 LD ve 53 20 20 AI 02 08 08 D RI 0 PH CH AR AR M D #3 W 93 8 GL 00 03 06 02 30 30 RI 72 HU Ac YB 09 -0 -1 .0 TE 34 NT ti UR 39 7- 2- 00 51 ER ve ID 36 20 20 AI E 41 08 08 D NA 5 0 PH NC MG AR Y M C TA #3 BL 93 ET 8 CL 00 06 06 00 60 30 RI 73 AR Ac ON 09 -0 -1 .0 TE 62 NO ti AZ 30 5- 2- 00 67 LD ve EP 83 20 20 AI AM 20 08 08 D RI 1 PH CH 0. AR AR 5 M D MG #3 W 93 TA 8 BL ET LE 00 10 06 05 30 30 RI 70 MC Ac VO 37 -2 -1 .0 TE 29 KE ti TH 81 4- 2- 00 59 PR ve YR 80 20 20 AI E OX 50 07 08 D JR IN 1 PH E AR WI 75 M LL #3 IA MC 93 M G 8 F TA BL ET 17 05 06 00 17 16 RI [...] MA MG CY /3 ML SO LN ME 00 05 06 00 21 6 RI 73 AR Ac TH 60 -2 -0 .0 TE 52 NO ti YL 34 9- 5- 00 01 LD ve UT 59 20 20 AI ED 31 08 08 D RI NI 5 PH CH SO AR AR LO M D NE #3 W 4 93 8 MG DO SE PK 60 05 06 00 24 6 RI [...] bl AR e M #3 93 8 TE 00 05 06 00 20 3 [...] 50 #3 93 MG 8 CA P CL 00 05 05 00 60 30 [...] MA MG CY /3 ML SO LN 50 05 05 00 12 30 WA [...] -0 -0 .0 TE 32 t ti UT 80 6- 8- 00 28 Av ve OL 52 20 20 AI ai OL 39 08 08 D la 3 PH bl FU AR e MA M RA #3 TE 93 5 8 MG TA B GL 00 03 05 01 30 30 RI 72 No Ac YB 09 -0 -0 .0 TE 34 t ti UR 39 7- 8- 00 51 Av ve ID 36 20 20 AI ai E 41 08 08 D la 5 0 PH bl MG AR e M TA #3 BL 93 ET 8 RI 50 05 05 00 30 30 [...] MC 93 G 8 TA BL ET NO 00 12 05 02 10 30 RI 70 No Ac VO 16 -0 -0 .0 TE 85 t ti LI 91 1- 8- 00 61 Av ve N 83 20 20 AI ai 70 71 07 08 D la -3 1 PH bl 0 AR e 10 M 0 #3 UN 93 IT 8 /M L AL FL 00 05 05 00 30 30 WA 69 No Ac UO 09 -0 -0 .0 L- 70 t ti XE 37 1- 8- 00 MA 26 Av ve TI 19 20 20 RT 3 ai NE 85 08 08 la 6 PH bl HC AR e L MA 40 CY MG #5 91 CA PS UL E CY 00 03 05 02 1. 7 CL 16 No Ac AN 51 -2 -0 00 IN 78 t ti OC 70 8- 8- 0 IC 79 Av ve OB 03 20 20 ai AL 12 08 08 PH la AM 5 AR bl IN MA e CY 1, 00 0 MC G/ ML 00 05 05 00 30 30 WA 69 No Ac 55 -0 -0 .0 L- 70 t ti 50 1- 8- 00 MA 26 Av ve 87 20 20 RT 5 ai 70 08 08 la 2 PH bl AR e MA CY #5 91 HY 00 04 04 00 12 30 RI [address] 18 -0 -2 0. TE 77 t ti OX 50 5- 4- 00 30 Av ve YZ 61 20 20 0 AI ai IN 50 08 08 D la E 1 PH bl PA AR e M M 50 #3 93 MG 8 CA P CI 00 04 04 00 20 10 RI 72 No Ac UT 17 -1 -2 .0 TE 89 t ti OF 25 4- 4- 00 61 Av ve LO 31 20 20 AI ai XA 16 08 08 D la CI 0 PH bl N AR e HC M L #3 25 93 0 8 MG TA B CY 00 03 04 01 1. 7 CL 16 No Ac AN 51 -2 -2 00 IN 78 t ti OC 70 8- 4- 0 IC 79 Av ve OB 03 20 20 ai AL 12 08 08 PH la AM 5 AR bl IN MA e CY 1, 00 0 MC G/ ML RI 50 04 04 00 30 30 RI 72 No Ac SP 45 -0 -2 .0 TE 77 t ti ER 80 5- 4- 00 31 Av ve DA 30 20 20 AI ai L 00 08 08 D la 1 6 PH bl MG AR e M TA #3 BL 93 ET 8 FL 00 04 04 00 30 30 RI 72 No Ac UO 09 -0 -2 .0 TE 77 t ti XE 37 5- 4- 00 33 Av ve TI 19 20 20 AI ai NE 85 08 08 D la 6 PH bl HC AR e L M 40 #3 93 MG 8 CA PS UL E CL 00 04 04 00 60 30 RI 72 No Ac ON 09 -0 -2 .0 TE 76 t ti AZ 30 5- 4- 00 83 Av ve EP 83 20 20 AI ai AM 20 08 08 D la 1 PH bl 0. AR e 5 M MG #3 93 TA 8 BL ET CY 00 03 04 00 1. 7 CL 16 No Ac AN 51 -2 -1 00 IN 73 t ti OC 70 0- 7- 0 IC 00 Av ve OB 03 20 20 ai [...] -0 -0 .0 TE 32 t ti UT 80 6- 7- 00 28 Av ve OL 52 20 20 AI ai OL 39 08 08 D la 3 PH bl FU AR e MA M RA #3 TE 93 5 8 MG TA B FL 00 02 04 00 30 30 RI 72 No Ac UO 09 -2 -0 .0 TE 31 t ti XE 37 9- 7- 00 18 Av ve TI 19 20 20 AI ai NE 85 08 08 D la 6 PH bl HC AR e L M 40 #3 93 MG 8 CA PS UL E RI 50 03 04 00 30 30 RI 72 No Ac SP 45 -0 -0 .0 TE 31 t ti ER 80 5- 7- 00 20 Av ve DA 33 20 20 AI ai L 00 08 08 D la 3 6 PH bl MG AR e M TA #3 BL 93 ET 8 LE 00 10 04 03 30 30 RI 70 No Ac VO 37 -2 -0 .0 TE 29 t ti TH 81 4- 7- 00 59 Av ve YR 80 20 20 AI ai OX 50 07 08 D la IN 1 PH bl E AR e 75 M #3 MC 93 G 8 TA BL ET HY 00 02 04 00 12 30 RI [address] 18 -2 -0 0. TE 31 t ti OX 50 9- 7- 00 17 Av ve YZ 61 20 20 0 AI ai IN 50 08 08 D la E 1 PH bl PA AR e M M 50 #3 93 MG 8 CA P NO 00 12 04 01 10 30 RI 70 No Ac VO 16 -0 -0 .0 TE 85 t ti LI 91 1- 7- 00 61 Av ve N 83 20 20 AI ai 70 71 07 08 D la -3 1 PH bl 0 AR e 10 M 0 #3 UN 93 IT 8 /M L AL GL 00 03 04 00 30 30 RI 72 No Ac YB 09 -0 -0 .0 TE 34 t ti UR 39 7- 7- 00 51 Av ve ID 36 20 20 AI ai E 41 08 08 D la 5 0 PH bl MG AR e M TA #3 BL 93 ET 8 TI 55 02 04 00 60 30 RI 72 No Ac ZA 11 -0 -0 .0 TE 17 t ti NI 10 8- 7- 00 71 Av ve DI 17 20 20 AI ai NE 91 08 08 D la 5 PH bl HC AR e L M 2 #3 MG 93 8 TA BL ET HY 00 01 03 00 12 30 [...] 25 4- 6- 00 61 Av ve UT 03 20 20 AI ai IL 26 07 08 D la -H [address] AR e Z M 20 #3 -2 93 5 8 MG TA B RI 50 01 03 00 30 30 RI 71 No Ac SP 45 -3 -2 .0 TE 81 t ti ER 80 1- 6- 00 36 Av ve DA 30 20 20 AI ai L 00 08 08 D la 1 6 PH bl MG AR e M TA #3 BL 93 ET 8 00 01 03 00 30 5 RI 71 No Ac 17 -2 -2 .0 TE 60 t ti 26 1- 5- 00 69 Av ve 35 20 20 AI ai 96 08 08 D la 0 PH bl AR e M #3 93 8 FL 00 12 03 01 30 30 [...] #3 93 CA 8 PS UL E SK 60 01 03 00 90 30 [...] MC 93 G 8 TA BL ET LA 00 01 03 00 20 30 RI 71 No Ac NT 08 -1 -2 .0 TE 46 t ti US 82 1- 4- 00 17 Av ve 22 20 20 AI ai 10 03 08 08 D la 0 3 PH bl UN AR e IT M S/ #3 ML 93 8 AL Immunization Name Date Route CVX Reacti Commen Provid Is Given on t er Refuse d HEPATI [place] No TIS A 2014 [facility] HEPA-H EPB ADULT IM HEPATI [place] No TIS A 2013 [facility] E HEPA-H EPB ADULT IM Procedures Procedure DOS Code Location Performer Comment ECG [id number] [facility] ECG INC INC W/LEAST 12 LDS TRCG ONLY W/O I&R CREATINE 47867 [facility]ASE [facility] TOTAL INC INC THER 70781 [facility] PROPH/DX [facility] NJX IV INC INC PUSH SINGLE/1S T SBST/DRUG ECG 87888 [facility] ECG INC INC W/LEAST 12 LDS TRCG ONLY W/O I&R RHYTHM 47726 [facility] ECG 1-3 [facility] LEADS INC INC TRACING ONLY W/O I&[place] [address] [facility] TROPONIN [facility] QUANTITAT INC INC ANNABELLA BLOOD 24369 [facility] COUNT [facility] COMPLETE INC INC AUTO&AUTO DIFRNTL WBC SUSCEPTIB 27832 [facility] LTY STDY 7 [facility] ANTIMICRB INC INC IAL MICRO/AGA R DILUTJ URNLS DIP 70989 [facility] 7 [facility] STICK/TAB INC INC LET REAGENT AUTO MICROSCOP Y RADIOLOGI 93676 [facility] C EXAM 7 [facility] CHEST 2 INC INC VIEWS FRONTAL&L ATERAL THERAPEUT 21879 [facility] IC 7 [facility] INJECTION INC INC IV PUSH EACH NEW DRUG COMPREHEN 63515 [facility] SIVE 7 [facility] METABOLIC INC INC PANEL CREATINE 65152 [facility] KINASE MB 7 [facility] FRACTION INC INC ONLY INJECTION [id number] [facility] 7 [facility] ONDANSETR INC INC ON HCL PER 1 MG CULTURE 44155 [facility] BACTERIAL 7 [facility] INC INC QUANTTATI VE COLONY COUNT URINE CULTURE 47600 [facility] BCT 7 [facility] ISOL&PRSM INC INC PTV ID ISOLATE EA URINE THER 21647 [facility]/DX [facility] NJX EA INC INC SEQL IV PUSH SBST/DRUG FAC CULTURE 71610 [facility] BACTERIAL 7 [facility] INC INC QUANTTATI VE COLONY COUNT URINE BLOOD 02343 [facility] COUNT 7 [facility] COMPLETE INC INC AUTO&[place] [address] [facility] FREE 7 [facility] [place] [address] [facility] THYROID [facility] STIMULAT[place] [address] [facility] TRIIODOTH 7 [facility] YRONINE INC INC T3 FREE COLLECTIO 22334 [facility] N VENOUS 7 [facility] [place] [address] [facility] FREE 7 [facility] [place] [address] [facility] THYROID 7 [facility] STIMULATI INC INC NG HORMONE TSH OCCUPATIO 30667 [facility] NAL 7 [facility] THERAPY INC INC EVAL LOW COMPLEX 30 MINS APPL 50080 [facility] MODALITY 7 [facility] 1/> AREAS INC INC IONTOPHOR ESIS EA 15 MIN THERAPEUT 59313 [facility] IC PX 1/> 7 [facility] AREAS INC INC EACH 15 MIN EXERCISES HOSPITAL G0463 [facility] E VISIT HOSP[facility]ALS HOSPITALS ASSESS & MGMT PT HOSPITAL G0463 [facility] OUTPATIEN [facility] T CLIN INC INC VISIT ASSESS & MGMT PT IAADIADOO 06558 [facility] INFLUENZA INC INC IAADIADOO 75416 [facility] STREPTOCO INC INC CCUS GROUP A INJ [id number] [facility]AMETHA 7 PHYSICIAN SONE S GROUP ACETATE & PHOSPHATE 3 MG RADIOLOGI 58488 [facility] [place] SCALF C EXAM 7 RADIOLOGY CHEST 2 VIEWS FRONTAL&L ATERAL AMBULANCE A0429 [facility] SERVICE 7 AMBULANCE AMBULANCE BLS SERVICE SERVICE EMERGENCY TRANSPORT GROUND A0425 [facility] MILEAGE 7 AMBULANCE AMBUL[place] [address] [place] [facility] HEAD[facility]BRAI 7 MEDICAL N W/[place] [address] [place] [facility] CERVICAL 7 MEDICAL SPINE W/O IMAGING CONTRAST ASS MATERIAL RADEX 43004 [facility] ELBOW 7 MEDICAL COMPLETE IMAGING MINIMUM 3 ASS VIEWS COMPREHEN 05088 [facility] SIVE [facility] [address] [facility] AMYLASE 7 [facility] INC INC INJECTION J2405 [facility] ONDANSETR INC INC ON HCL PER 1 MG LOCM Q9967 [facility] [phone] [facility] MG/ML INC INC IODINE CONCENTRA TION PER ML CULTURE 60284 [facility] BACTERIAL 7 [facility] INC INC QUANTTATI VE COLONY COUNT URINE CULTURE 58121 [facility] BCT [facility] ISOL&PRSM [place] [address] [facility] INFUSION [facility] THERAPY/P INC INC ROPHYLAXI S /DX 1ST TO 1 HR BLOOD 44395 [facility] COUNT [facility] COMPLETE INC INC AUTO&AUTO DIFRNTL WBC SUSCEPTIB 75105 [facility] LTY STDY 7 [facility] ANTIMICRB INC INC IAL MICRO/AGA R DILUTJ URNLS DIP 01755 [facility] STICK/TAB INC INC [place] [address] [facility] LIPASE 7 [place] [address] [facility] ABDOMEN & 7 [facility] PELVIS INC INC W/CONTRAS T MATERIAL THERAPEUT 40389 [facility] IC [facility] INJECTION INC INC IV PUSH EACH NEW DRUG SUSCEPTIB 88947 [facility] LTY STDY 7 [facility] ANTIMICRB INC INC IAL MICRO/AGA R DILUTJ CULTURE 24976 [facility] BCT 7 [facility] ISOL&PRSM INC INC PTV ID ISOLATE EA URINE CULTURE 11425 [facility] BACTERIAL 7 [facility] INC INC QUANTTATI VE COLONY COUNT URINE PHRM Q0513 YOUR YOUR DISPENSIN [address] [facility] [facility] INHALATIO N RX; PER 30 DAYS THERAPEUT 58255 [facility] IC [facility] PROPHYLAC INC INC TIC/DX INJECTION SUBQ/IM ADMN SET A7003 YOUR YOUR SM VOL 7 PHARMACY PHARMACY NONFILTR [facility] PNEUMAT NEBULIZR DISPBL ALBUTEROL J7613 YOUR YOUR INHAL 7 PHARMACY PHARMACY NON-CP [facility] PROD THRU DME U DOSE 1 MG INJECTION J2405 [facility] ONDANSETR INC INC ON HCL PER 1 MG IADNA-DNA 86950 [facility] /RNA GI 7 [facility] PTHGN INC INC MULTIPLEX PROBE TQ 06-18 LACTOFERR 08142 [facility] IN FECAL 7 [facility] QUALITATI INC INC VE OVA&NOEL 72599 [facility] ITES [facility] DIRECT INC INC SMEARS CONCENTRA TION & ID RADIOLOGI 29342 [place] C EXAM 7 MEDICAL CHEST 2 IMAGING VIEWS ASS FRONTAL&[place] [address] [facility] TROPONIN 7 [facility] QUANTITAT INC INC ANNABELLA BLOOD 95779 [facility] COUNT 7 [facility] COMPLETE INC INC AUTO&AUTO DIFRNTL WBC APPLICATI 48386 [facility] ON [facility] MODALITY INC INC 1/> AREAS HOT/COLD PACKS APPL 39196 [facility] MODALITY 7 [facility] 1/> AREAS INC INC ULTRASOUN D EA 15 MIN CREATINE 24967 [facility] KINASE 7 [facility] TOTAL INC INC ECG 99699 [facility] ROUTINE 7 [facility] ECG INC INC W/LEAST 12 LDS TRCG ONLY W/O I&R E-STIM [id number] [facility] 1/> AREAS 7 [facility] OTH THAN INC INC WND CARE PART TX PLAN ECG 10695 [facility] SINGH ROUTINE 7 PHYSICIAN ECG S, PLLC W/LEAST 12 LDS I&R ONLY COMPREHEN 83978 BRANDON RABAGOON SIVE 7 [facility] METABOLIC INC INC PANEL CREATINE 63627 BRANDON TAYLOR KINASE MB 7 [facility] FRACTION INC INC ONLY E-STIM G0283 BRANDON BRANDON 1/> AREAS 7 [facility] OTH THAN INC INC WND CARE PART TX PLAN APPL 16209 [facility] T[facility] MODALITY 7 [facility] 1/> AREAS INC INC ULTRASOUN D EA 15 MIN APPLICATI 03354 [facility] ON 7 [facility] MODALITY INC INC 1/> AREAS HOT/COLD PACKS ECG 42713 [facility] T[facility] ROUTINE 7 [facility] ECG INC INC W/LEAST 12 LDS TRCG ONLY W/O I&R DRUG TEST 47205 BRANDON TAYL[facility] PRSMV 7 [facility] INSTRMNT INC INC CHEMISTRY ANALYZERS COMPREHEN 70474 [facility] SIVE 7 [facility] METABOLIC INC INC PANEL CREATINE 42355 BRANDON TAYLOR KINASE MB 7 [facility] [place] [address] BRANDON TAYL[facility] FREE 7 [facility] [place] [address] BR[facility] T[facility] THYROID 7 [facility] STIMULATI INC INC NG HORMONE TSH ECG 44077 [facility] ROUTINE 7 PHYSICIAN ECG S, PLLC W/LEAST 12 LDS I&R ONLY CULTURE 03566 BR[facility] T[facility] BACTERIAL 7 [facility] INC INC QUANTTATI VE COLONY COUNT URINE CULTURE 19635 BRANDON TAYLOR BCT 7 [facility] ISOL&PRSM INC [place] [address] BRANDON T[facility] TROPONIN 7 [facility] QUANTITAT INC INC ANNABELLA DRUG TEST G0481 [facility] DEFINITV [address] ID INC INC METH P DAY 8-14 DRUG CL BLOOD 91257 BRANDON TAY[facility] GASES ANY 7 [facility] INC INC COMBINATI ON PH PCO2 PO2 CO2 HCO3 BLOOD 67374 BR[facility] T[facility] COUNT 7 [facility] COMPLETE INC INC AUTO&AUTO DIFRNTL WBC SUSCEPTIB 08390 BRANDON TAY[facility] LTY STDY 7 [facility] ANTIMICRB INC INC IAL MICRO/AGA R DILUTJ URNLS DIP 73618 [facility] 7 [facility] STICK/TAB INC INC LET REAGENT AUTO MICROSCOP Y DRUG TEST G0480 [facility] DEFINITV [address] ID INC INC METH P DAY 1-7 DRUG CL CREATINE 79891 BRANDON TAY[facility] KINASE 7 [facility] TOTAL INC INC ECG 18751 BRANDON TAYLOR ROUTINE 7 [facility] ECG INC INC W/LEAST 12 LDS TRCG ONLY W/O I&R E-STIM G0283 BRANDON TAYLOR 1/> AREAS 7 [facility] OTH THAN INC INC WND CARE PART TX PLAN APPL 59257 BRANDON TAY[facility] MODALITY 7 [facility] 1/> AREAS INC INC ULTRASOUN D EA 15 MIN APPLICATI 63236 BR[facility] T[facility]LOR ON 7 [facility] MODALITY INC INC 1/> AREAS HOT/COLD PACKS BLOOD 76343 BRANDON TAYL[facility] COUNT 7 [facility] COMPLETE INC INC AUTO&AUTO DIFRNTL WBC E-STIM G0283 BRANDON TAYLOR 1/> AREAS 7 [facility] OTH THAN INC INC WND CARE PART TX PLAN APPLICATI 04447 BRANDON TAYLOR ON 7 [facility] MODALITY INC INC 1/> AREAS HOT/COLD PACKS APPL 59170 BRANDON TAYL[facility] MODALITY 7 [facility] 1/> AREAS INC INC ULTRASOUN D EA 15 MIN PHYSICAL 10311 BR[facility] T[facility] THERAPY 7 [facility] EVALUATIO INC INC N MOD COMPLEX [address] THORAX 00077 LEONA BURTON W/O 7 MEDICAL [place] [address] BRANDON TAYL[facility] THYROXINE 6 [facility] TOTAL INC INC BLOOD 87159 BR[facility] T[facility] COUNT 6 [facility] COMPLETE INC INC AUTO&AUTO DIFRNTL WBC RADIOLOGI 65551 BRANDON TAYL[facility] C EXAM 6 [facility] CHEST 2 INC INC VIEWS FRONTAL&L ATERAL COLLECTIO 63048 BR[facility]ON TAYL[facility] N VENOUS 6 [facility] BLOOD INC INC VENIPUNCT URE COMPREHEN 73147 BRANDON T[facility] SIVE 6 [facility] [place] [address] BRANDON T[facility] THYROID 6 [facility] STIMULATI INC INC NG HORMONE TSH DRUG TST G0477 BRANDON TAYL[facility] PRESUMP;C 6 [facility] PBL BEING INC INC READ DC OPT OBV ONLY THERAPEUT 04528 BRANDON TAYL[facility] IC 6 [facility] PROPHYLAC INC INC TIC/DX INJECTION SUBQ/IM GLUC BLD 29716 BRANDON TAYLOR GLUC MNTR 6 [facility] DEV INC INC CLEARED FDA SPEC HOME USE BLD GLU A4253 CRISTIN AMARAL TEST/REAG 6 HOME [facility] T [facility] BLD EQUIPME EQUIPME GLU MON-50 LANCETS A4259 CRISTIN AMARAL PER BOX 6 HOME HOME OF 100 MEDICAL MEDICAL EQUIPME EQUIPME SBSQ 23382 [facility] 6 PHYSICIAN SHANTHI CARE/DAY S [place] [address] [place] [address] [facility] ABDOMEN & 6 MEDICAL PELVIS IMAGING W/O ASS CONTRAST MATERIAL ECG 78906 BRANDON CHOWDHURY JR ROUTINE 6 [facility] W/LEAST P 12 LDS I&R ONLY RADIOLOGI 52514 [facility] 6 MEDICAL EXAMINATI IMAGING ON CHEST ASS SINGLE VIEW FRONTAL CRITICAL 72090 LEIGHTON HAYDEN SHAK[facility] CARE 6 PHYSICIAN ILL/INJUR S, PLLC ED PATIENT INIT 30-74 MIN INITIAL 50111 [facility] 6 PHYSICIAN SHANTHI CARE/DAY S GROUP 50 MINUTES BLOOD 63126 BRANDON TAYLOR COUNT 6 [facility] COMPLETE INC INC AUTO&AUTO DIFRNTL WBC SUSCEPTIB 96932 BRANDON TAYLOR LTY STDY 6 [facility] ANTIMICRB INC INC IAL MICRO/AGA R DILUTJ URNLS DIP 85655 [facility] 6 [facility] STICK/TAB INC INC LET REAGENT AUTO MICROSCOP Y RADIOLOGI 77028 [facility] EXAM 6 MEDICAL ANITA CHEST 2 IMAGING VIEWS ASS FRONTAL&L ATERAL CUL BACT 64284 BRANDON TAYL[facility] XCPT 6 [facility] URINE INC INC BLOOD/STO OL AEROBIC ISOL CULTURE 33168 BRANDON TAYL[facility] BACTERIAL 6 [facility] INC INC QUANTTATI VE COLONY COUNT URINE CULTURE 24325 BR[facility] TAYLOR BCT 6 [facility] ISOL&PRSM INC INC PTV ID ISOLATE EA URINE IAADI 48490 BR[facility]ON TAYL[facility] INFLUENZA 6 [facility] B VIRUS INC INC IAADI 36957 BR[facility] TAYL[facility] INFFLUENZ 6 [facility] A A VIRUS INC INC THERAPEUT 75987 BR[facility] T[facility] IC 6 [facility] PROPHYLAC INC INC TIC/DX INJECTION SUBQ/IM COLLECTIO 44970 BR[facility] TAYL[facility] N VENOUS 6 [facility] BLOOD INC INC VENIPUNCT URE COMPREHEN 69045 BR[facility]ON TAYL[facility] SIVE 6 [facility] [place] [address] BRANDON TAYL[facility] STREPTOCO 6 [facility] CCUS INC INC GROUP A 3D 26398 BRANDON TAYLOR RENDERING 6 [facility] W/INTERP INC INC & POSTPROCE SS SUPERVISI ON MRI 29878 BRANDON TAYLOR SPINAL 6 [facility] CANAL INC INC LUMBAR W/O CONTRAST MATERIAL RADIOLOGI 03392 [facility] 6 MEDICAL ANITA EXAMINATI IMAGING ON KNEE 3 ASS VIEWS THER 52772 BRANDON TAYLOR PROPH/DX 6 [facility] NJX IV INC INC PUSH SINGLE/1S T SBST/DRUG THERAPEUT 33854 BRANDON TAYLOR IC 6 [facility] INJECTION INC INC IV PUSH EACH NEW DRUG E-STIM G0283 BRANDON TAYLOR 1/> AREAS 6 [facility] OTH THAN INC INC WND CARE PART TX PLAN APPLICATI 14790 BR[facility]ON TAYLOR ON 6 [facility] MODALITY INC INC 1/> AREAS HOT/COLD PACKS THERAPEUT 43004 BRANDONKATI TAYLOR IC PX 1/> 6 [facility] AREAS INC INC EACH 15 MIN EXERCISES PHYSICAL 16584 BRANDON TAYLOR THERAPY 6 [facility] EVALUATIO INC INC N BLD GLU A4253 CRISTIN CRISTIN TEST/REAG 6 HOME HOME T [facility] BLD EQUIPME EQUIPME GLU MON-50 LANCETS A4259 CRISTIN CRISTIN PER BOX 6 HOME HOME OF 100 MEDICAL MEDICAL EQUIPME EQUIPME DEBRIDEME 46123 [facility] NT NAIL 6 FOOT & ANY ANKLE CE METHOD 6/> POTASSIUM 80128 BRANDON TAYLOR SERUM 6 [facility] PLASMA/WH INC INC OLE BLOOD COLLECTIO 65039 BRANDON TAYLOR N VENOUS 6 [facility] BLOOD INC INC VENIPUNCT URE COMPREHEN 67302 BRANDON TAYLOR SIVE 6 [facility] METABOLIC INC INC PANEL RADEX 68186 [facility] ALL RIBS UNI 6 MEDICAL W/POSTERO IMAGING ANT CH ASS MINIMUM 3 VIEWS POTASSIUM 19245 BRANDONKATI TAYLOR SERUM 6 [facility] PLASMA/WH INC INC OLE BLOOD AMBULANCE A0429 [facility] SERVICE 6 AMBULANCE AMBULANCE BLS SERVICE SERVICE EMERGENCY TRANSPORT GROUND A0425 [facility] MILEAGE 6 AMBULANCE AMBULANCE PER SERVICE SERVICE STATUTE MILE BLOOD 09393 BRANDON TAYLOR COUNT 6 [facility] COMPLETE INC INC AUTO&AUTO DIFRNTL WBC COLLECTIO 68382 BR[facility]ON TAYLOR N VENOUS 6 [facility] BLOOD INC INC VENIPUNCT URE COMPREHEN 47567 BR[facility] T[facility]OR SIVE 6 [facility] METABOLIC INC INC PANEL BLOOD 18665 BRANDON TAYLOR COUNT 6 [facility] COMPLETE INC INC AUTO&AUTO DIFRNTL WBC RADEX 69059 [facility] 6 MEDICAL MEDICAL COMPLETE IMAGING IMAGING MINIMUM 2 ASS ASS VIEWS RADIOLOGI 03242 [place] [facility] ALL C EXAM 6 MEDICAL CHEST 2 IMAGING VIEWS ASS FRONTAL&L ATERAL COLLECTIO 06781 BR[facility] T[facility] N VENOUS 6 [facility] BLOOD INC INC VENIPUNCT URE COMPREHEN 06207 BR[facility] T[facility] SIVE 6 [facility] METABOLIC INC INC PANEL RADEX 65190 BRANDON TAYLOR RIBS UNI 6 [facility] W/POSTERO INC INC ANT CH MINIMUM 3 VIEWS COLLECTIO 44894 BR[facility] T[facility] N VENOUS 6 [facility] BLOOD INC INC VENIPUNCT URE COMPREHEN 04262 BR[facility] TAYLOR SIVE 6 [facility] [address] BR[facility] T[facility] LACTATE 6 [facility] INC INC BLOOD 12387 BR[facility] TAYLOR COUNT 6 [facility] COMPLETE INC INC AUTO&AUTO DIFRNTL WBC CULTURE 00445 BR[facility] T[facility] BACTERIAL 6 [facility] BLOOD INC INC AEROBIC W/ID ISOLATES SUSCEPTIB 85967 BR[facility]ON TAYLOR LTY STDY 6 [facility] ANTIMICRB INC INC IAL MICRO/AGA R DILUTJ CUL BACT 92682 [facility] TAY[facility] XCPT 6 [facility] URINE INC INC BLOOD/STO OL AEROBIC ISOL CUL BACT 07532 BR[facility] T[facility] AEROBIC 6 [facility] ADDL INC INC METHS DEFINITIV E EA ISOL BLD GLU A4253 CRISTIN JORDANRELL TEST/REAG 6 HOME HOME T [facility] BLD EQUIPME EQUIPME GLU MON-50 LANCETS A4259 CRISTIN CRISTIN PER BOX 6 HOME HOME OF 100 MEDICAL MEDICAL EQUIPME EQUIPME RADEX 18449 [facility] T[facility] ESOPHAGUS 6 [facility] INC [place] CT SOFT 89947 BR[facility] T[facility] TISSUE 6 [facility] NECK INC INC W/CONTRAS T MATERIAL LOCM Q9967 BR[facility] TAY[facility] 300-399 6 [facility] MG/ML INC INC IODINE CONCENTRA TION PER ML RADEX 99357 BRANDON TAYLOR SPINE 6 [facility] CERVICAL INC INC 4 OR 5 VIEWS RADEX HIP 52595 [facility] T[facility] 6 [facility] UNILATERA INC INC L WITH PELVIS 2-3 VIEWS RADEX HIP 30077 LEONA FLANNERY ALL 6 MEDICAL UNILATERA IMAGING L WITH ASS PELVIS 1 VIEW RADEX 08754 LEONA FLANNERY ALL SPINE 6 MEDICAL CERVICAL IMAGING 2 OR 3 ASS VIEWS COLLECTIO 05755 [facility] T[facility] N VENOUS 6 [facility] BLOOD INC INC VENIPUNCT URE COMPREHEN 21590 BRANDON BRANDON SIVE 6 [facility] [address] BR[facility] TAY[facility] AMMONIA 6 [facility] INC INC BLOOD 69151 BR[facility] TAYLOR COUNT 6 [facility] COMPLETE INC INC AUTO&AUTO DIFRNTL WBC COLLECTIO 25282 BRANDON RABAGOON N VENOUS 6 [facility] [place] [address] BR[facility] TAYL[facility] FREE 6 [facility] [place] [address] BRANDON TAY[facility] THYROID 6 [facility] STIMULAT[place] [address] BR[facility] TAY[facility] UREA 6 [facility] NITROGEN INC INC QUANTITAT ANNABELLA BLOOD 94573 [facility] T[facility] COUNT 6 [facility] COMPLETE INC INC AUTO&AUTO DIFRNTL WBC CREATININ 73342 BR[facility] TAYL[facility] E BLOOD 6 [facility] INC INC COLLECTIO 53554 [facility] T[facility] N VENOUS 5 [facility] BLOOD INC INC VENIPUNCT URE COMPREHEN 23796 [facility] T[facility] SIVE 5 [facility] [address] BR[facility] TAY[facility] THYROID 5 [facility] STIMULATI INC INC NG HORMONE TSH BLOOD 39946 [facility] T[facility] COUNT 5 [facility] COMPLETE INC INC AUTO&AUTO DIFRNTL WBC RADIOLOGI 38478 BR[facility] TAY[facility] C EXAM 5 [facility] CHEST 2 INC INC VIEWS FRONTAL&L ATERAL CT THORAX 50045 BR[facility] W/O 5 [facility] CONTRAST INC INC MATERIAL PRESSURIZ 82214 BRANDON TAYL[facility] ED/NONPRE 5 [facility] SSURIZED INC INC INHALATIO N TREATMENT TX PROC G0238 [facility] IMPRV 5 [facility] RESP INC INC FUNCT NOT G0237 FCE-FCE 15MIN RADEX 92047 [facility] T[facility] HAND 5 [facility] MINIMUM 3 INC INC VIEWS APPLICATI 62895 BR[facility] T[facility] ON SHORT 5 [facility] ARM INC INC SPLINT FOREARM-H AND STATIC RADIOLOGI 58636 [facility] T[facility] C 5 [facility] EXAMINATI INC INC ON PELVIS 1/[address] [place] [address] BR[facility]ON TAYL[facility] MAXILLOFA 5 [facility] CIAL W/O INC INC CONTRAST MATERIAL RADEX 25750 BRANDON TAYLOR RIBS UNI 5 [facility] W/POSTERO INC INC ANT CH MINIMUM 3 VIEWS RADIOLOGI 17351 BR[facility] TAY[facility] C 5 [facility] EXAMINATI INC INC ON KNEE 3 VIEWS WRIST L3908 [facility] HAND 5 TECHNOLOG TECHNOLOG ORTHOSIS IES INC IES INC EXT CONTROL COCK-UP PREFAB RADEX 78401 BR[facility] TAYLOR WRIST 5 [facility] COMPLETE INC INC MINIMUM 3 VIEWS DIAB ONLY A5500 [facility] FIT CSTM 5 MEDICAL MEDICAL PREP&SPL SUPPLY [employer] DNSITY INSRT FOR DIAB A5512 [place] ONLY MX 5 MEDICAL MEDICAL DNSITY SUPPLY SUPPLY INSRT DIR [facility] FORMD PRFAB EA ECG 12921 BRANDON CHOWDHURY JR ROUTINE 5 [facility] W/LEAST P 12 [place] [address] SURG 5 TORO & PATHOLOGY TOMMY GROSS&SHANTHI ROSCOPIC EXAM DECALCIFI [address] CATION 5 TORO & PROCEDURE DUBILIER ANES OPEN 85346 [facility] PROC 5 ANESTH BONES OF THE LOWER BLUE LEG/ANKLE /FOOT NOS RADEX 50714 ELENAY HOMER FOOT 5 MEDICAL AYLA COMPLETE IMAGING MINIMUM [address] [place] [address] [facility] CERVICAL 5 MEDICAL AYLA SPINE W/[place] [address] LEONA MORRISUTCHER HEAD/BRAI 5 MEDICAL AYLA N W/O IMAGING CONTRAST ASS MATERIAL AMB A0427 [facility] SERVICE 5 AMBULANCE AMBULANCE ALS SERVICE SERVICE EMERGENCY TRANSPORT LEVEL 1 RADEX HIP 81957 LEONA CORONEL 5 MEDICAL AYLA UNILATERA IMAGING L ASS COMPLETE MINIMUM 2 VIEWS GROUND A0425 [facility] MILEAGE 5 AMBULANCE AMBULANCE PER SERVICE SERVICE STATUTE MILE RADIOLOGI 77194 [facility] CORONEL C 5 MEDICAL AYLA EXAMINATI IMAGING ON PELVIS ASS 1/2 VIEWS CULTURE 96284 COMBINED COMBINED BACTERIAL 5 PHYSICIAN PHYSICIAN S LA S LA QUANTTATI VE COLONY COUNT URINE BLD GLU A4253 CRISTIN AMARAL TEST/REAG 5 HOME HOME T [facility]IPS MEDICAL MEDICAL HOME BLD EQUIPME EQUIPME GLU MON-50 BLOOD 05541 [facility] T[facility] COUNT 5 [facility] COMPLETE INC INC AUTO&AUTO DIFRNTL WBC SUSCEPTIB 97728 BR[facility] TAY[facility]OR LTY STDY 5 [facility] ANTIMICRB INC INC IAL MICRO/AGA R DILUTJ URNLS DIP 27350 [facility] 5 [facility] STICK/TAB INC INC LET REAGENT AUTO MICROSCOP Y CULTURE 09847 [facility] T[facility] BACTERIAL 5 [facility] INC INC QUANTTATI VE COLONY COUNT URINE CULTURE 50668 [facility] TAY[facility] BCT 5 [facility] ISOL&PRSM INC INC PTV ID ISOLATE EA URINE COLLECTIO 53654 [facility] TAY[facility] N VENOUS 5 [facility] BLOOD INC INC VENIPUNCT URE COMPREHEN 53813 [facility] T[facility] SIVE 5 [facility] METABOLIC INC INC PANEL THER 11986 BR[facility]ON TAYLOR PROPH/DX 5 [facility] NJX IV INC INC PUSH SINGLE/1S T SBST/DRUG GLUC BLD 49369 BR[facility] TAYLOR GLUC MNTR 5 [facility] DEV INC INC CLEARED FDA SPEC HOME USE HEPATITIS 38333 [facility] C 5 [facility] ANTIBODY INC INC BLOOD 95293 [facility] T[facility] COUNT 5 [facility] COMPLETE INC INC AUTO&AUTO DIFRNTL WBC HEPATITIS 77652 BRANDON Boyd CORE 5 [facility] ANTIBODY INC INC HBCAB TOTAL HEPATITIS 17494 BRANDON Boyd SURF 5 [facility] [place] [address] [facility] T[facility] HEPATITIS 5 [facility] B INC INC SURFACE ANTIGEN COLLECTIO 14668 BRANDON TAYLOR N VENOUS 5 [facility] BLOOD INC INC VENIPUNCT URE COMPREHEN 14063 BRANDON TAYLOR SIVE 5 [facility] METABOLIC INC INC PANEL HEPATITIS 24851 BRANDON TAYLOR A 5 [facility] ANTIBODY INC INC HAAB DUP-SCAN 82810 LEONA FLANNERY ALL XTR VEINS 5 MEDICAL IMAGING UNILATERA ASS L/LIMITED STUDY CV STRS 96021 BRANDON WELLS TST 5 [facility] XERS&/OR HOSPITAL RX CONT P ECG I&R ONLY CV STRS 15635 [facility] TST 5 PHYSICIAN XERS&/OR S GROUP RX CONT ECG W/O I&R TECHNETIU A9500 BRANDON BRANDON M TC-99M 5 [facility] SESTAMIBI INC INC DX PER STUDY DOSE CV STRS 47841 BR[facility] TAYLOR TST 5 [facility] XERS&/OR INC INC RX CONT ECG TRCG ONLY INJECTION J2785 BRANDON TAYLOR 5 [facility] REGADENOS INC INC ON 0.1 MG MYOCARDIA 40951 LEONA FLANNERY ALL L SPECT 5 MEDICAL MULTIPLE IMAGING STUDIES ASS AMBULANCE A0429 [facility] SERVICE 5 AMBULANCE AMBULANCE BLS SERVICE SERVICE EMERGENCY TRANSPORT GROUND A0425 [facility] MILEAGE 5 AMBULANCE AMBULANCE PER SERVICE SERVICE STATUTE MILE RADEX 02206 LEONA FLANNERY ALL SHOULDER 5 MEDICAL COMPLETE IMAGING MINIMUM 2 ASS VIEWS RADIOLOGI 97605 [facility] FLANNERY ALL C 5 MEDICAL EXAMINATI IMAGING ON PELVIS ASS 1/2 VIEWS RADEX 22328 LEONA FLANNERY ALL WRIST 5 MEDICAL COMPLETE IMAGING MINIMUM 3 ASS VIEWS RADEX 76031 [facility] FLANNERY ALL RIBS 5 MEDICAL UNILATERA IMAGING L 2 VIEWS ASS RADEX 20457 BRANDON TAYLOR RIBS UNI 5 [facility] W/POSTERO INC INC ANT CH MINIMUM 3 VIEWS RADIOLOGI 86360 [facility] FLANNERY ALL C 5 MEDICAL EXAMINATI IMAGING ON KNEE 3 ASS VIEWS RADIOLOGI 29207 [facility] FLANNERY ALL C 5 MEDICAL EXAMINATI IMAGING ON CHEST ASS SING[place] VIEW FRONTAL BASIC 81262 BRANDON TAYLOR METABOLIC 5 [facility] PANEL INC INC CALCIUM TOTAL COLLECTIO 91160 [facility] TAY[facility] N VENOUS 5 [facility] BLOOD INC INC VENIPUNCT URE BLOOD 07549 BRANDON TAYLOR COUNT 5 [facility] COMPLETE INC INC AUTO&AUTO DIFRNTL WBC BLD GLU A4253 CRISTIN AMARAL TEST/REAG 5 HOME HOME T STRIPS MEDICAL MEDICAL HOME BLD EQUIPME [place]QUIPME GLU MON-[place] [address] [facility] & 5 MEDICAL ANITA PELVIS IMAGING W/CONTRAS ASS T MATERIAL GLUCOSE 15923 [facility] QUANTITAT 5 Y Y ANNABELLA BLOOD [facility] XCPT REAGENT STRIP BLOOD 29458 [facility] COUNT 5 Y Y COMPLETE [facility] [place] [address] [facility] SURG 5 Y Y PATHOLOGY [facility] GROSS&SHANTHI ROSCOPIC EXAM BIOPSY 60360 [facility] LIVER 5 Y Y NEEDLE [facility] PERCUTANE OUS PROTHROMB 06734 [facility] IN TIME 5 Y Y [facility] SPCL STN 37790 [facility] 2 I&R 5 Y Y EXCPT [facility] MICROORG/ ENZYME/IM CYT THROMBOPL 35317 [facility] ASTIN 5 Y Y TIME [facility] PARTIAL PLASMA/WH OLE BLOOD RADIOLOGI 32446 [place] JULY C 5 MEDICAL SHANTHI EXAMINATI SERV ON CHEST FOUNDATIO SINGLE N VIEW FRONTAL INFUSION J7030 UNIVERSIT UNIVERSIT NORMAL 5 Y Y [facility] SOLUTION 1000 CC IMHISTOCH 43541 LOC PERKINSTalya EM/CYTCHM 5 PATHOLOGY PATHOLOGY EA ADDL SERVICES SERVICES ANTIBODY SLIDE CUL BACT 02660 BRANDONKATI TAYLOR XCPT 5 [facility] URINE INC INC BLOOD/STO OL AEROBIC ISOL CUL BACT 53679 BRANDON TAYLOR AEROBIC 5 [facility] ADDL INC INC [place] [address] LOC PERKINSTalya SURG 5 PATHOLOGY PATHOLOGY PATHOLOGY SERVICES SERVICES GROSS&SHANTHI ROSCOPIC EXAM IMHISTOCH 17818 LOC PERKINSTalya EM/CYTCHM 5 PATHOLOGY PATHOLOGY 1ST SERVICES SERVICES ANTIBODY STAIN PROCEDURE SUSCEPTIB 73245 BRANDON TAYLOR LTY STDY 5 [facility] ANTIMICRB INC INC IAL MICRO/AGA R DILUTJ RADEX 26633 [facility] SPINE 5 MEDICAL AYLA CERVICAL IMAGING 2 OR 3 ASS VIEWS BASIC 99595 BRANDON ADRIAN METABOLIC 5 [facility] EED MOH PANEL INC CALCIUM TOTAL COLLECTIO 25906 BRANDON TAYLOR N VENOUS 5 [facility] BLOOD INC INC [facility] G0378 BRANDON TAYLOR OBSERVATI 5 [facility] ON INC INC SERVICE PER HOUR PRESSURIZ 25285 BRANDON TAYLOR ED/NONPRE 5 [facility] SSURIZED INC INC INHALATIO N TREATMENT NONINVASI 76993 BRANDON TAYLOR VE 5 [facility] EAR/PULSE INC INC OXIMETRY SINGLE DETER GLUC BLD 03234 BRANDON TAYLOR GLUC MNTR 5 [facility] DEV INC INC CLEARED FDA SPEC HOME USE BLOOD 27519 BRANDON TAYLOR COUNT 5 [facility] COMPLETE INC INC AUTO&AUTO DIFRNTL WBC OBSERVATI 82380 [place] USERY AND ON CARE 5 [facility] DISCHARGE INTERNAL MED MANAGEMEN T RADIOLOGI 64613 [place] C 5 MEDICAL ANITA EXAMINATI IMAGING ON CHEST ASS SINGLE [place]IEW FRONTAL INITIAL 03443 [place] AND OBSERVATI 5 [facility] ON INTERNAL CARE/DAY MED 30 MINUTES CULTURE 61781 BR[facility] T[facility] BACTERIAL 5 [facility] BLOOD INC INC AEROBIC W/ID ISOLATES SUSCEPTIB 10191 BRANDON TAYLOR LTY STDY 5 [facility] ANTIMICRB INC INC IAL MICRO/AGA R DILUTJ BLOOD 14432 BRANDON TAYLOR COUNT 5 [facility] COMPLETE INC INC AUTO&[place] [address] BRANDON TAYLOR INFUSION 5 [facility] THERAPY/P INC INC ROPHYLAXI S /DX 1ST TO 1 HR GLUC BLD 15728 BRANDON TAYLOR GLUC MNTR 5 [facility] DEV INC INC CLEARED FDA SPEC HOME USE INJECTION J2310 BRANDON TAYLOR NALOXONE 5 [facility] HCL PER INC INC 1 MG THERAPEUT 83760 BRANDON TAYLOR IC 5 [facility] INJECTION INC [place] [address] BRANDON TAYLOR INFUSION 5 [facility] THER INC INC PROPH ADDL SEQUENTIA L [place] [address] BRANDON TAYLOR STREPTOCO 5 [facility] CCUS [facility] G0378 BRANDON TAYLOR OBSERVATI 5 [facility] ON INC INC SERVICE PER HOUR CUL BACT 69610 BRANDON TAYLOR XCPT 5 [facility] URINE INC INC BLOOD/STO OL AEROBIC ISOL CUL BACT 24518 BRANDON TAYLOR AEROBIC 5 [facility] ADDL INC INC METHS DEFINITIV E EA ISOL IAADI 85930 BRANDON TAYLOR INFLUENZA 5 [facility] B VIRUS INC INC IAADI 85635 BRANDON TAYLOR INFFLUENZ 5 [facility] A A VIRUS INC INC RADIOLOGI 49876 [place] [facility] Kumar 5 MEDICAL AYLA EXAMINATI IMAGING ON CHEST ASS SINGLE VIEW FRONTAL PROTHROMB 97478 BRANDON TAYLOR IN TIME 5 [facility] INC INC COLLECTIO 97434 BRANDON TAYLOR N VENOUS 5 [facility] BLOOD INC INC VENIPUNCT URE COMPREHEN 06125 [facility] SIVE 5 [facility] METABOLIC INC INC PANEL HEPATITIS 67883 [place] A & B 5 MEDICAL [facility] VACCINE SERV ACH HEPA-HEPB FOUNDATIO ADULT IM N IM ADM 05794 [place] PRQ ID 5 MEDICAL [facility] SUBQ/IM SERV ACH NJXS 1 [place] V[place] [address] [facility] GAMMAGLOB 5 [facility] ULIN IGA INC INC IGD IGG IGM EACH BLOOD 94615 [facility] COUNT 5 [facility] COMPLETE INC INC AUTO&AUTO DIFRNTL WBC RADEX 91798 [place] [facility] SH[facility]ER 5 MEDICAL [facility] COMPLETE IMAGING MINIMUM 2 ASS VIEWS RADEX HIP 99664 [place] [facility] 5 [facility]ICAL [facility] UNILATERA IMAGING L ASS COMPLETE MINIM[place] [address] [place] [address] [place] [facility] HEAD/BRAI 5 MEDICAL AYLA N W/O IMAGING CONTRAST ASS MATERIAL RADEX 92758 [facility] WRIST 4 [facility] COMPLETE INC INC MINIMUM 3 VIEWS RADEX 89171 [facility] HAND 4 [facility] MINIMUM 3 INC INC VIEWS APPLICATI 33562 [facility] ON SHORT 4 KAMAR MOH ARM EMERGENCY SPLINT PHYS FOREARM-H AND STATIC PREPJ& 16590 MARNI MARNI ALLERGEN 4 LUIS ALFREDO LUIS ALFREDO IMMUNOTHE RAPY 1/BANK AND SAVINGS SECURITIES TRADER ANTIGEN BLD GLU A4253 CRISTIN AMARAL TEST/REAG 4 HOME HOME T [facility] BLD EQUIPME EQUIPME GLU MON-50 ADMINISTR G0010 [place] ATION OF 4 MEDICAL [facility]YA[facility]NE HEPATITIS SERV ACH B FOUNDATIO VACCINE N HEPATITIS 99950 [place] A & B 4 MEDICAL [place]NE VACCINE SERV ACH HEPA-HEPB FOUNDATIO ADULT IM N SPMTRY 89627 MARNI MARNI W/VC 4 LUIS ALFREDO LUIS ALFREDO EXPIRATOR Y LULU W/WO MXML VOL VNTJ COMPRE 78950 EAR, NOSE EAR, NOSE AUDIOMETR 4 AND AND Y THROAT THROAT THRESHOLD SPECIAL SPECIAL EVAL SP RECOGNIJ TYMPANOME 29689 EAR, NOSE SHASHY TRY 4 AND SOBEIDA THROAT SPECIAL ALBUMIN 57209 [facility] URINE 4 [facility] MICROALBU INC INC MIN QUANTIATI VE RADEX HIP 89150 [facility] 4 [facility] UNILATERA INC INC L COMPLETE MINIMUM 2 VIEWS COLLECTIO 94497 [facility] N VENOUS 4 [facility] BLOOD INC INC VENIPUNCT URE COMPREHEN 05470 [facility] SIVE 4 [facility] [address] [facility] AMMONIA 4 [place] [address] [facility] THYROID 4 [facility] STIMULATI INC INC NG HORMONE TSH LIPID 69023 [facility] PANEL 4 [facility] INC INC HEMOGLOBI 34129 [facility] N 4 [facility] GLYCOSYLA INC INC ML A1C BLOOD 95673 [facility] COUNT 4 [facility] COMPLETE INC INC AUTO&AUTO DIFRNTL WBC DETERMINA 31798 EVELYN RAMIREZ TION 4 [facility] 86542 [facility] 4 VISION XM&EVAL CENTER COMPRHNSV ESTAB PT 1/> COLLECTIO 03489 [facility] N VENOUS 4 Y Y BLOOD [facility] VENIPUNCT URE COMPREHEN 07985 [facility] 4 Y Y [facility] PANEL ANTINUCLE 13729 [facility] 4 Y [facility] NADINE TITER ANTINUCLE 92498 [facility] 4 [facility] S NADINE BLD GLU A4253 CRISTIN AMARAL TEST/REAG 4 HOME HOME [facility] BLD EQUIPME EQUIPME GLU MON-50 FOR DIAB A5512 [facility] ONLY MX 4 MEDICAL MEDICAL DNSITY SUPPLY SUPPLY INSRT [employer] FORMD PRFAB EA DIAB ONLY A5500 [facility] FIT CSTM 4 MEDICAL MEDICAL PREP&SPL SUPPLY SUPPLY SHOE [employer] DNSITY INSRT COLOREC G0121 [facility] CANCR 4 Y Y SCR; [facility] NOT MEET HI RISK INFUSION J7030 [facility] NORMAL 4 Y Y SALINE [facility] SOLUTION 1000 CC ESOPHAGOG 19259 [facility] ASTRODUOD 4 Y Y [facility] TRANSORAL DIAGNOSTI C GLUCOSE 68133 [facility] QUANTITAT 4 Y Y ANNABELLA BLOOD [facility] XCPT REAGENT STRIP BX SKIN 05472 [facility] SUBCUTANE 4 DERMATOLO DERMATOLO OUS&/MUCO GY GY US MEMBRANE 1 [place] [address] [facility] SURG 4 DERMATOLO DERMATOLO PATHOLOGY GY GY GROSS&SHANTHI ROSCOPIC EXAM BIOPSY 99831 [facility] SKIN 4 DERMATOLO DERMATOLO SUBQ&/MUC GY GY OUS MEMBRANE EA ADDL LESN CUL BACT 36864 [facility] XCPT 4 DIAGNOSTI DIAGNOSTI URINE CS CS BLOOD/STO OL AEROBIC ISOL BLOOD 17117 [facility] COUNT 4 [facility] COMPLETE INC INC AUTO&AUTO DIFRNTL WBC COLLECTIO 17728 [facility] N VENOUS 4 [facility] BLOOD INC INC VENIPUNCT URE COMPREHEN 15708 [facility] SIVE 4 [facility] METABOLIC INC INC PANEL BLD GLU A4253 CRISTIN JORDANRELL TEST/REAG 4 HOME [facility] T [facility] BLD EQUIPME EQUIPME GLU MON-50 US SOFT 93134 [facility] TISSUE 4 [facility] HEAD & INC INC NECK REAL TIME IMGE DOCM CULTURE 27057 [facility] BACTERIAL 4 [facility] INC INC QUANTTATI VE COLONY COUNT URINE BLOOD 31438 [facility] COUNT 4 [facility] COMPLETE INC INC AUTO&AUTO DIFRNTL WBC CULTURE 49627 [facility] BACTERIAL 4 [facility] BLOOD INC INC AEROBIC W/ID ISOLATES RADIOLOGI 63344 LEONA CORNOEL C EXAM 4 MEDICAL AYLA CHEST 2 IMAGING VIEWS ASS FRONTAL&L ATERAL COMPREHEN 74878 [facility] SIVE 4 [facility] METABOLIC INC INC PANEL COLLECTIO 59674 [facility] N VENOUS 4 [facility] BLOOD INC INC VENIPUNCT URE COLLECTIO 03009 [facility] N VENOUS 4 Y Y BLOOD [facility] VENIPUNCT URE ANTIBODY 12699 [facility] IDENTIFIC 4 Y Y ATION [facility] LEUKOCYTE ANTIBODIE S HEPATITIS 20130 [facility] A 4 Y Y ANTIBODY [facility] HAAB IADNA 96104 [facility] HEPATITIS 4 Y Y C QUANT [facility] TRANSCRIP TION HEPATITIS 04264 [facility] C 4 Y Y ANTIBODY [facility] [place] [address] [facility] HEPATITIS 4 Y Y B [facility] SURFACE ANTIGEN HEPATITIS 40604 [facility] CORE 4 Y Y ANTIBODY [facility] HBCAB TOTAL HEPATITIS 25263 [facility] SURF 4 Y Y ANTIBODY [facility] HBSAB FLUORESCE 78199 [facility] NT 4 Y Y NONNFCT [facility] AGT ANTB SCREEN EA ANTIBODY INFUSION J7030 [facility] NORMAL 4 Y Y SALINE [facility] SOLUTION 1000 CC THER 43068 [facility] PROPH/DX 4 Y Y NJX IV [facility] PUSH SINGLE/1S T SBST/DRUG RINGERS J7120 [facility] LACTATE 4 Y Y INFUSION [facility] UP TO 1000 CC BLOOD 65006 [facility] COUNT 4 Y Y COMPLETE [facility] [place] [address] [place] ABDOMEN & 4 MEDICAL OLIVIA PELVIS SERV W/CONTRAS FOUNDATIO T MATERIAL COMPREHEN 49472 [facility] SIVE 4 Y Y METABOLIC [facility] PANEL URNLS DIP 93117 [facility] 4 Y Y STICK/TAB [facility] LET RGNT AUTO W/O MICROSCOP Y INJECTION J2405 [facility] H[facility] 1 [address] LOCM [address] [place] [address] [phone] Y Y MG/[facility] IODINE CONCENTRA TION PER ML COLLECTIO 03717 [facility] N VENOUS 4 [facility] BLOOD INC INC VENIPUNCT URE COMPREHEN 40464 [facility] SIVE 4 [facility] [place] [address] [facility] AMYLASE 4 [facility] INC INC BLOOD 94669 [facility] COUNT 4 [facility] COMPLETE INC INC AUTO&AUTO DIFRNTL WBC SUSCEPTIB 41305 [facility] LTY STDY 4 [facility] ANTIMICRB INC INC IAL MICRO/AGA R DILUTJ URNLS DIP 59662 [facility] 4 [facility] STICK/TAB INC INC [place] [address] [facility] LIPASE 4 [facility] INC INC CULTURE 10319 BRANDONKATI TAYLOR BACTERIAL 4 [facility] INC INC QUANTTATI VE COLONY COUNT URINE CULTURE 26783 BR[facility] RABAGOON BCT 4 [facility] ISOL&PRSM INC INC PTV ID ISOLATE EA URINE SCR G0145 [facility] CYTOPATH 4 [facility] CERV/VAG SCR AUTO&MNL RSCR PHYS RADIOLOGI 34961 [place] [facility] C EXAM 4 MEDICAL AYLA CHEST 2 IMAGING VIEWS ASS FRONTAL&L ATERAL ECG [address]2681 [facility] ROUTINE 4 KAMAR ECG EMERGENCY W/LEAST PHYS 12 LDS I&R ONLY COLLECTIO 82312 BRANDON BRANDON N VENOUS 4 [facility] BLOOD INC INC VENIPUNCT URE CREATINE 71003 [facility] KINASE MB 4 [facility] [place] [address] [facility] TROPONIN 4 [facility] QUANTITAT INC INC ANNABELLA NATRIURET 45058 [facility] IC 4 [facility] PEPTIDE INC INC BLOOD 83148 [facility] COUNT 4 [facility] COMPLETE INC INC AUTO&AUTO DIFRNTL WBC ECG 77180 [facility] WELLS ROUTINE 4 [facility] W/LEAST P 12 LDS I&R ONLY CREATINE 56486 [facility] KINASE 4 [facility] TOTAL INC INC ECG 52220 [facility] ROUTINE 4 [facility] ECG INC INC W/LEAST 12 LDS TRCG ONLY W/O I&R BASIC 90013 [facility] METABOLIC 4 [facility] PANEL INC INC CALCIUM TOTAL PHRM Q0513 YOUR YOUR DISPENSIN 4 PHARMACY PHARMACY G FEE [facility] INHALATIO N RX; PER 30 DAYS BLD GLU A4253 CRISTIN AMARAL TEST/REAG 4 HOME HOME T [facility] BLD EQUIPME EQUIPME GLU MON-50 LANCETS A4259 CRISTIN AMARAL PER BOX 4 HOME HOME OF 100 MEDICAL MEDICAL EQUIPME EQUIPME ALBUTEROL J7613 YOUR YOUR INHAL 4 PHARMACY PHARMACY NON-CP [facility] PROD THRU DME U DOSE 1 MG ADMN SET A7005 YOUR YOUR W/SM VOL 4 PHARMACY PHARMACY NONFILTR 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 L E-STIM G0283 [facility] 1/> AREAS 4 [facility] OTH THAN INC INC WND CARE PART TX PLAN E-STIM G0283 [facility] 1/> AREAS 4 [facility] OTH THAN INC INC WND CARE PART TX PLAN APPLICATI 86042 [facility] ON 4 [facility] MODALITY INC INC 1/> AREAS HOT/COLD PACKS APPL 38514 [facility] MODALITY 4 [facility] 1/> AREAS INC INC 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 L LIPID 80501 [facility] PANEL 4 [facility] INC INC COLLECTIO 27939 [facility] N VENOUS 4 [facility] BLOOD INC INC VENIPUNCT URE COMPREHEN 07732 [facility] SIVE 4 [facility] METABOLIC INC INC PANEL TENS E0730 EMPI INC EMPI INC DEVICE 4 4/MORE LEADS MULTI NERVE STIMULATI ON APPL 30851 [facility] MODALITY 4 [facility] 1/> AREAS INC INC 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 L APPLICATI 77923 [facility] ON 4 [facility] MODALITY INC INC 1/> AREAS HOT/COLD PACKS E-STIM G0283 BR[facility] 1/> AREAS 4 [facility] OTH THAN INC INC WND CARE PART TX PLAN APPL 45923 [facility] MODALITY 4 [facility] 1/> AREAS INC INC ELEC STIMJ EA 15 MIN E-STIM G0283 [facility] 1/> AREAS 4 [facility] OTH THAN INC INC WND CARE PART TX PLAN APPLICATI 78876 [facility] ON 4 [facility] MODALITY INC INC 1/> AREAS HOT/COLD PACKS APPL 98072 [facility] MODALITY 4 [facility] 1/> AREAS INC INC 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 L BLD GLU A4253 CRISTIN AMARAL TEST/REAG 4 HOME HOME T [facility] BLD EQUIPME EQUIPME GLU MON-50 LANCETS A4259 CRISTIN AMARAL PER BOX 4 HOME HOME OF 100 MEDICAL MEDICAL EQUIPME EQUIPME URNLS DIP 53045 BRANDON MIRANDA 4 [facility] LET RGNT P NON-AUTO W/O MICRSCP APPLICATI 90240 [facility] ON 4 [facility] MODALITY INC INC 1/> AREAS HOT/COLD PACKS E-STIM G0283 [facility] 1/> AREAS 4 [facility] OTH THAN INC INC WND CARE PART TX PLAN ECG 16132 BRAND[facility] WELLS ROUTINE 4 [facility] W/LEAST P 12 LDS I&R ONLY RADIOLOGI 85378 LEONA GARCHER C EXAM 4 MEDICAL AYLA CHEST 2 IMAGING VIEWS ASS FRONTAL&L ATERAL RADIOLOGI 17510 LEONA CORONEL C EXAM 4 MEDICAL AYLA CHEST 2 IMAGING VIEWS ASS FRONTAL&L ATERAL ECG 12468 BRANDON CHOWDHURY JR ROUTINE 4 [facility] W/LEAST P 12 LDS I&R ONLY E-STIM G0283 [facility] 1/> AREAS 4 [facility] OTH THAN INC INC WND CARE PART TX PLAN APPL 96802 [facility] MODALITY 4 [facility] 1/> AREAS INC INC 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 L APPLICATI 31664 [facility] ON 4 [facility] MODALITY INC INC 1/> AREAS HOT/COLD PACKS APPL 94042 [facility] MODALITY 4 [facility] 1/> AREAS INC INC ULTRASOUN D EA 15 MIN APPL 67702 [facility] MODALITY 4 [facility] 1/> AREAS INC INC ULTRASOUN D EA 15 MIN NERVE 82648 AMA [facility] CONDUCTIO 4 [facility]UROLOGY [facility] 5-6 MITCH STUDIES APPL 93846 [facility] MODALITY 4 [facility] 1/> AREAS INC INC 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 L NEEDLE 13191 ORIENTAL ORTHODOXYINKA WYMAN EMG EA 4 NEUROLOGY FER[facility] EXTREMTY CENTER W/PARASPI MITCH NL AREA COMPLETE 3D 94570 [facility] RENDERING 4 [facility] W/INTERP INC INC & POSTPROCE SS SUPERVISI ON MRI 38279 LEONA MORRISUTCHER SPINAL 4 MEDICAL AYLA CANAL IMAGING LUMBAR ASS W/O CONTRAST MATERIAL 3D 01194 LEONA HOMER RENDERING 4 MEDICAL AYLA IMAGING W/INTERP& ASS POSTPROC DIFF WORK STATION APPL 99205 [facility] MODALITY 4 [facility] 1/> AREAS INC INC ULTRASOUN D EA 15 MIN APPLICATI 36664 [facility] ON 4 [facility] MODALITY INC INC 1/> AREAS HOT/COLD PACKS E-STIM G0283 [facility] 1/> AREAS 4 [facility] OTH THAN INC INC WND CARE PART TX PLAN APPL 68896 [facility] MODALITY 4 [facility] 1/> AREAS INC INC 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 L APPL 97560 [facility] MODALITY 4 [facility] 1/> AREAS INC INC 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 L E-STIM G0283 [facility] 1/> AREAS 4 [facility] OTH THAN INC INC WND CARE PART TX PLAN PHYSICAL 32531 [facility] THERAPY 4 [facility] EVALUATIO INC INC N APPLICATI 70089 BR[facility] ON 4 [facility] MODALITY INC INC 1/> AREAS HOT/COLD PACKS APPL 41592 [facility] MODALITY 4 [facility] 1/> AREAS INC INC ULTRASOUN D EA 15 MIN APPL 12761 [facility] MODALITY 4 [facility] 1/> AREAS INC INC ULTRASOUN D EA 15 MIN APPLICATI 92021 [facility] ON 4 [facility] MODALITY INC INC 1/> AREAS HOT/COLD PACKS E-STIM G0283 [facility] 1/> AREAS 4 [facility] OTH THAN INC INC WND CARE PART TX PLAN E-STIM G0283 [facility] 1/> AREAS 4 [facility] OTH THAN INC INC WND CARE PART TX PLAN APPLICATI 45543 [facility] ON 4 [facility] MODALITY INC INC 1/> AREAS HOT/COLD PACKS APPL 25400 [facility] MODALITY 4 [facility] 1/> AREAS INC INC ULTRASOUN D EA 15 MIN APPL 46222 [facility] MODALITY 4 [facility] 1/> AREAS INC INC 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 L APPL 88864 [facility] MODALITY 4 [facility] 1/> AREAS INC INC 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 L APPL 04432 [facility] MODALITY 4 [facility] 1/> AREAS INC INC ULTRASOUN D EA 15 MIN APPLICATI 05890 [facility] ON 4 [facility] MODALITY INC INC 1/> AREAS HOT/COLD PACKS E-STIM G0283 [facility] 1/> AREAS 4 [facility] OTH THAN INC INC WND CARE PART TX PLAN BLD GLU A4253 CRISTIN JORDANRELL TEST/REAG 4 HOME HOME T [facility] HOME BLD EQUIPME EQUIPME GLU MON-50 LANCETS A4259 CRISTIN JORDANRELL PER BOX 4 HOME HOME OF 100 MEDICAL MEDICAL EQUIPME EQUIPME E-STIM G0283 [facility] 1/> AREAS 4 [facility] OTH THAN INC INC WND CARE PART TX PLAN APPLICATI 70158 [facility] ON 4 [facility] MODALITY INC INC 1/> AREAS HOT/COLD PACKS APPL 66546 [facility] MODALITY 4 [facility] 1/> AREAS INC INC ULTRASOUN D EA 15 MIN APPL 57746 [facility] MODALITY 4 [facility] 1/> AREAS INC INC 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 L APPL 36654 [facility] MODALITY 4 [facility] 1/> AREAS INC INC 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 L APPL 75331 [facility] MODALITY 4 [facility] 1/> AREAS INC INC ULTRASOUN D EA 15 MIN APPLICATI 06040 [facility] ON 4 [facility] MODALITY INC INC 1/> AREAS HOT/COLD PACKS E-STIM G0283 [facility] 1/> AREAS 4 [facility] OTH THAN INC INC WND CARE PART TX PLAN E-STIM G0283 [facility] 1/> AREAS 4 [facility] OTH THAN INC INC WND CARE PART TX PLAN APPLICATI 60617 [facility] ON 4 [facility] MODALITY INC INC 1/> AREAS HOT/COLD PACKS APPL 06866 [facility] MODALITY 4 [facility] 1/> AREAS INC INC ULTRASOUN D EA 15 MIN APPL 71213 [facility] MODALITY 4 [facility] 1/> AREAS INC INC 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 L INJECTION J2405 [facility] 3 [facility] ONDANSETR INC INC ON HCL PER 1 MG CYSTO 65538 BRANDON MIRANDA CALIBRATI 3 [facility] URTL P STRIX/[place] [address] BRAND[facility] INFUSION 3 [facility] THERAPY INC [place] [address] [facility] INFUSION 3 [facility] THERAPY/P INC INC ROPHYLAXI S /DX 1ST TO 1 HR GLUC BLD 19430 [facility] GLUC MNTR 3 [facility] DEV INC INC CLEARED FDA SPEC HOME USE THERAPEUT 74969 [facility] IC 3 [facility] INJECTION INC INC IV PUSH EACH NEW DRUG ANES 64400 [facility] TRANSURET 3 ANESTH HRAL OF THE W/URETHRO BLUE CYSTOSCOP Y NOS URNLS DIP 48208 BRANDON MIRANDA 3 [facility] LET RGNT P NON-AUTO W/O MICRSCP PROF SVCS 65075 MARNI MARNI ALLG 3 LUIS ALFREDO LUIS ALFREDO IMMNTX X W/PRV ALLGIC XTRCS NJXS PROF SVCS 91356 MARNI MARNI ALLG 3 LUIS ALFREDO LUIS ALFREDO IMMNTX X W/PRV ALLGIC XTRCS NJXS SMR PRIM 33423 [facility] SRC 3 [facility] GRAM/GIEM INC INC SA STAIN BCT FUNGI/VERÓNICA L SUSCEPTIB 82451 [facility] LTY STDY 3 [facility] ANTIMICRB INC INC IAL MICRO/AGA R DILUTJ MYOCARDIA 85768 LEONA Yoon SPECT 3 MEDICAL AYLA MULTIPLE IMAGING STUDIES ASS CUL BACT 68733 [facility] STOOL 3 [facility] AEROBIC INC INC ISOL SALMONELL A&SHIGELL TECHNETIU A9500 BRANDON Wayne TC-99M 3 [facility] SESTAMIBI INC INC DX PER STUDY DOSE CV STRS 52895 [facility] TST 3 [facility] XERS&/OR INC INC RX CONT ECG TRCG ONLY INJECTION J2785 [facility] 3 [facility] REGADENOS [place] 0.1 [place] [address] [facility] LIPASE 3 [facility] INC INC COLLECTIO 14027 [facility] N VENOUS 3 [facility] BLOOD INC INC VENIPUNCT URE COMPREHEN 84697 [facility] SIVE 3 [facility] [place] [address] [facility] AMYLASE 3 [facility] INC INC BLOOD 18773 [facility] COUNT 3 [facility] COMPLETE INC INC AUTO&AUTO DIFRNTL WBC PHRM Q0513 YOUR YOUR DISPENSIN 3 PHARMACY PHARMACY G FEE [facility] INHALATIO N RX; PER 30 DAYS ALBUTEROL J7613 YOUR YOUR INHAL 3 PHARMACY PHARMACY NON-CP [facility] PROD THRU DME U DOSE 1 MG SUSCEPTIB 51179 [facility] T[facility] LTY STDY 3 [facility] ANTIMICRB INC INC IAL MICRO/AGA R DILUTJ URNLS DIP 72572 BRANDON MIRANDA 3 [facility] LET RGNT P NON-AUTO W/O MICRSCP CULTURE 49039 [facility] T[facility] BACTERIAL 3 [facility] INC INC QUANTTATI VE COLONY COUNT URINE CULTURE 26253 [facility] BCT 3 [facility] ISOL&PRSM INC INC PTV ID ISOLATE EA URINE INSJ 82046 BR[facility] MIRANDA NON-NDWEL 3 [facility] BLADDER P CATHETER RADEX ABD 58552 [facility] COMPL 3 [facility] AQT ABD INC INC W/S/E/D VIEWS 1 VIEW CH 3D 56498 [facility] RENDERING 3 [facility] W/INTERP& [place] [address] [facility] LIPASE 3 [place] [address] [facility] ABDOMEN & 3 [facility] PELVIS INC INC W/O CONTRAST MATERIAL THERAPEUT 77716 [facility] IC 3 [facility] PROPHYLAC INC INC TIC/DX INJECTION SUBQ/IM BLOOD 76687 [facility] COUNT 3 [facility] COMPLETE INC INC AUTO&AUTO DIFRNTL WBC PROF SVCS 90596 MARNI MARNI ALLG 3 [facility] ALFR[facility]IS ALFREDO IMMNTX X W/PRV ALLGIC XTRCS NJXS COMPREHEN 17476 [facility] SIVE 3 [facility] METABOLIC INC INC PANEL INJECTION J2405 [facility] 3 [facility] ONDANSETR INC INC ON HCL PER 1 MG PROF SVCS 47491 MARNI MARNI ALLG 3 LUIS ALFREDO LUIS ALFREDO IMMNTX X W/PRV ALLGIC XTRCS NJXS SPMTRY 53397 MARNI MARNI W/VC 3 [facility] AL[facility] LUIS ALFREDO EXPIRATOR Y LULU W/WO MXML VOL VNTJ CULTURE 06516 [facility] BACTERIAL 3 [facility] INC INC QUANTTATI VE COLONY COUNT URINE PROF SVCS 26631 MARNI MARNI ALLG 3 LUIS ALFREDO LUIS ALFREDO IMMNTX X W/PRV ALLGIC XTRCS NJXS PROF SVCS 04052 MARNI MARNI ALLG 3 LUIS ALFREDO LUIS ALFREDO IMMNTX X W/PRV ALLGIC XTRCS NJXS COLLECTIO 03584 [facility] RABAGOON N VENOUS 3 [facility] BLOOD INC INC VENIPUNCT URE BLOOD 39716 [facility] COUNT 3 [facility] COMPLETE INC INC AUTO&AUTO DIFRNTL WBC CULTURE 11177 COMBINED COMBINED BACTERIAL 3 PHYSICIAN PHYSICIAN S [place] [address] [facility] INFUSION 3 [facility] THERAPY INC INC PROPHYLAX IS/DX EA HOUR POSTERIOR V2632 BRANDONKATI RABAGOON CHAMBER 3 [facility] [place] [address] [facility] INFUSION 3 [facility] THERAPY/P INC INC ROPHYLAXI S /DX 1ST TO 1 HR GLUC BLD 74557 [facility] GLUC MNTR 3 [facility] DEV INC INC CLEARED FDA SPEC HOME USE CATARACT 58534 [facility] PROF SVCS 83705 MARNI MARNI ALLG 3 LUIS ALFREDO LUIS ALFREDO IMMNTX X W/PRV ALLGIC XTRCS NJXS COLLECTIO 37529 [facility] N VENOUS 3 [facility] BLOOD INC INC VENIPUNCT URE COMPREHEN 27496 [facility] SIVE 3 [facility] METABOLIC INC INC PANEL BLOOD 00662 [facility] COUNT 3 [facility] COMPLETE INC INC AUTO&AUTO DIFRNTL WBC CULTURE 24447 [facility] BACTERIAL 3 [facility] INC [place] [address] MARNI MARNI ALLG 3 LUIS ALFREDO LUIS ALFREDO IMMNTX X W/PRV ALLGIC XTRCS NJXS PROF SVCS 55720 MARNI MARNI ALLG 3 [facility]IS ALFREDO LUIS ALFREDO IMMNTX X W/PRV ALLGIC XTRCS NJXS SPMTRY 08901 MARNI MARNI W/VC 3 [facility] LUIS ALFREDO EXPIRATOR Y LULU W/WO MXML VOL VNTJ GLUC BLD 73026 [facility] GLUC MNTR 3 [facility] DEV [place] [address] [facility] INFUSION 3 [facility] THERAPY/P INC INC ROPHYLAXI S /DX 1ST TO 1 HR CATARACT 50873 [facility] OPH BMTRY 67112 [place] ROB US [facility] [place] [address] [facility] INFUSION 3 [facility] THERAPY INC INC PROPHYLAX IS/DX EA HOUR POSTERIOR V2632 [facility] CHAMBER 3 [facility] INTRAOCUL INC INC AR LENS CULTURE 54438 [facility] BACTERIAL 3 [facility] INC INC QUANTTATI VE COLONY COUNT URINE CULTURE 45493 [facility] BCT 3 [facility] ISOL&PRSM INC INC PTV ID ISOLATE EA URINE SUSCEPTIB 72586 [facility] LTY STDY 3 [facility] ANTIMICRB INC INC IAL MICRO/AGA R DILUTJ URNLS DIP 41839 [facility] 3 [facility] JR PETR STICK/TAB INTERNAL LET RGNT MED NON-AUTO W/O MICRSCP PHRM Q0513 YOUR YOUR DISPENSIN 3 PHARMACY PHARMACY G FEE [facility] INHALATIO N RX; PER 30 DAYS ALBUTEROL J7613 YOUR YOUR INHAL 3 PHARMACY PHARMACY NON-CP [facility] PROD THRU DME U DOSE 1 MG ADMN SET A7005 YOUR YOUR W/SM VOL 3 PHARMACY PHARMACY NONFILTR [facility] NEBULIZR NON-DISPB L COLLECTIO 76527 [facility] N VENOUS [facility] [place] [address] [facility] THYROID 3 [facility] STIMULAT[place] [address] [facility] GAMMAGLOB 3 [facility] ULIN IGE INC INC C-REACTIV 56678 [facility] E PROTEIN 3 [facility] INC INC INJECTION J2010 MARNI MARNI 3 LUIS ALFREDO LUIS ALFREDO LINCOMYCI N HCL UP TO [address] [place] [address] [facility] GAMMAGLOB 3 [facility] ULIN IGA INC INC IGD IGG IGM EACH COMPLEMEN 76293 [facility] T TOTAL 3 [facility] HEMOLYTIC INC INC RHEUMATOI 21877 [facility] Pichardo FACTOR 3 [facility] QUANTITAT INC INC ANNABELLA ANTIBODY 46748 [facility] BACTERIUM 3 [facility] NOT INC INC ELSEWHERE SPECIFIED BLOOD 98634 [facility] COUNT 3 [facility] COMPLETE INC INC AUTO&AUTO DIFRNTL WBC RADIOLOGI 20971 [facility] C EXAM 3 [facility] CHEST 2 INC INC VIEWS FRONTAL&L ATERAL INJECTION J1040 MARNI MARNI 3 LUIS ALFREDO LUIS ALFR[facility]O METHYLPRE DNISOLONE ACETATE 80 MG BRNCDILAT 26227 MARNI MARNI RSPSE 3 LUI SALFREDO LUIS ALFR[facility] SPMTRY PRE&POST- BRNCDILAT ADMN PRESSURIZ 49791 MARNI MARNI ED/NONPRE 3 LUIS ALFR[facility] LOBATO SSURIZED INHALATIO N TREATMENT GAMMAGLOB 14046 [facility] ULIN 3 [facility] IMMUNOGLO [place] [address] [facility] THYROXINE 3 [facility] TOTAL INC INC ANTINUCLE 53842 [facility] AR 3 [facility] ANTIBODIE INC INC S NADINE THERAPEUT 28065 MARNI MICHELLEHBURN IC 3 LUIS AL[facility] LU[facility] AL[facility] PROPHYLAC TIC/DX INJECTION SUBQ/IM DEMO&/POLLY 94874 MARNI GRIDER L OF PT 3 LUIS ALFREDO LOBATO UTILIZ AERSL GEN/NEB/I NHLR/IP 25 33424 [facility] HYDROXY 3 [facility] INCLUDES INC INC FRACTIONS IF PERFORMED CYANOCOBA 23798 [facility] PRATEEK 3 [facility] VITAMIN INC INC B-12 SEDIMENTA 37527 [facility] TION RATE 3 [facility] RBC INC INC NON-AUTOM ATED RADEX 27684 [facility] RIBS UNI 3 [facility] W/POSTERO INC INC ANT CH MINIMUM 3 VIEWS CULTURE 42605 COMBINED COMBINED BACTERIAL 3 PHYSICIAN PHYSICIAN S LA S LA QUANTTATI VE COLONY COUNT URINE PROF SVCS 62369 MARNI MARNI ALLG 3 LUIS ALFREDO LUIS ALFREDO IMMNTX X W/PRV ALLGIC XTRCS NJXS URNLS DIP 81648 [facility] 3 [facility] CECE STICK/TAB INTERNAL LET RGNT MEDI NON-AUTO W/O MICRSCP OPH BMTRY 24641 [facility] US 3 EYE [facility] A-SCAN IO LENS PWR [place] OPHTH [address] [place] [address] EYE JANET XM&EVAL INSTITUTE COMPRE NEW PT 1/> VST COLLECTIO 18766 [facility] N VENOUS 3 [facility] BLOOD INC INC VENIPUNCT URE BLOOD 72555 [facility] COUNT 3 [facility] COMPLETE INC INC AUTO&AUTO DIFRNTL WBC BLOOD 30221 [facility] COUNT 3 [facility] COMPLETE INC INC AUTO&AUTO DIFRNTL WBC RADIOLOGI 63694 [facility] C EXAM 3 [facility] CHEST 2 INC INC VIEWS FRONTAL&L ATERAL COLLECTIO 48339 [facility] N VENOUS 3 [facility] BLOOD INC INC VENIPUNCT URE COMPREHEN 01158 [facility] SIVE 3 [facility] METABOLIC INC INC PANEL URNLS DIP 07914 [place] 3 [place] JR PETR STICK/TAB INTERNAL LET RGNT MED NON-AUTO W/O MICRSCP PROF [facility] 59676 MARNI MARNI ALLG 3 LUIS ALFREDO LUIS ALFREDO IMMNTX X W/PRV ALLGIC XTRCS NJXS PROF [facility] 80746 MARNI MARNI ALLG 3 LUIS ALFREDO LUIS ALFREDO IMMNTX X W/PRV ALLGIC XTRCS NJXS BLD GLU A4253 M E D M E D TEST/REAG 3 SUPPLIES SUPPLIES T STRIPS HOME BLD GLU MON-50 LANCETS A4259 M E D M E D PER BOX 3 SUPPLIES SUPPLIES OF 100 PREPJ& 19109 MARNI MARNI ALLERGEN 3 LUIS ALFREDO LUIS ALFREDO IMMUNOTHE RAPY 1/BANK AND SAVINGS SECURITIES TRADER ANTIGEN PROF [facility] 93399 MARNI MARNI ALLG 3 LUIS ALFREDO LUIS ALFREDO IMMNTX X W/PRV ALLGIC XTRCS NJXS PROF [facility] 23665 MARNI MARNI ALLG 3 LUIS ALFREDO LUIS ALFREDO IMMNTX X W/PRV ALLGIC XTRCS NJXS COLLECTIO 04003 [facility] N VENOUS 3 [facility] BLOOD INC INC VENIPUNCT URE COMPREHEN 90032 [facility] SIVE 3 [facility] METABOLIC INC INC PANEL BLOOD 19762 [facility] COUNT 3 [facility] COMPLETE INC INC AUTO&AUTO DIFRNTL WBC SUSCEPTIB 71723 [facility] LTY STDY 3 [facility] ANTIMICRB INC INC IAL MICRO/AGA R DILUTJ URNLS DIP 91580 [facility] 3 [facility] STICK/TAB INC INC LET REAGENT AUTO MICROSCOP Y CULTURE 76467 [facility] BACTERIAL 3 [facility] INC INC QUANTTATI VE COLONY COUNT URINE CULTURE 26663 [facility] BCT 3 [facility] ISOL&PRSM INC INC PTV ID ISOLATE EA URINE DXA BONE 26105 [facility] 3 MEDICAL AYLA STUDY 1/> IMAGING SITES ASS AXIAL SKEL CANE INCL E0100 CRISTIN CRISTIN CANES 3 HOME HOME ALL MEDICAL MEDICAL MATERIAL EQUIPME EQUIPME ADJUSTBLE /FIX W/TIP RADIOLOGI 44840 [facility] EXAM 3 MEDICAL AYLA KNEE IMAGING COMPLETE ASS 4/MORE VIEWS PROF [facility] 08952 MANRI MARNI ALLG 3 LUIS ALFREDO LUIS ALFREDO IMMNTX X W/PRV ALLGIC XTRCS NJXS RADIOLOGI 69720 [facility] EXAM 3 MEDICAL AYLA CHEST 2 IMAGING VIEWS ASS FRONTAL&L ATERAL PROF [facility] 04196 MARNI MARNI ALLG 3 LUIS ALFREDO LUIS ALFREDO IMMNTX X W/PRV ALLGIC XTRCS NJXS URNLS DIP 59366 [facility] [facility] 3 [facility] CECE STICK/TAB INTERNAL LET RGNT MEDI NON-AUTO W/O MICRSCP CULTURE 61280 COMBINED COMBINED BACTERIAL 3 PHYSICIAN PHYSICIAN S LA S LA QUANTTATI VE COLONY COUNT URINE PROF [facility] 62813 MARNI MARNI ALLG 3 LUIS ALFREDO LUIS ALFREDO IMMNTX X W/PRV ALLGIC XTRCS NJXS COLLECTIO 87677 [facility] N VENOUS 3 [facility] [place] [address] [facility] BLOOD/URI 3 [facility] C ACID INC INC PROF SVCS 13745 MARNI MARNI ALLG 3 LUIS ALFREDO LUIS ALFREDO IMMNTX X W/PRV ALLGIC XTRCS NJXS PROF SVCS 04720 MARNI MARNI ALLG 3 LUIS ALFREDO LUIS ALFREDO IMMNTX X W/PRV ALLGIC XTRCS NJXS PROF SVCS 19758 MARNI MARNI ALLG 3 LUIS ALFREDO LUIS ALFREDO IMMNTX X W/PRV ALLGIC XTRCS NJXS PROF SVCS 28815 MARNI MARNI ALLG 3 LUIS ALFREDO LUIS ALFREDO IMMNTX X W/PRV ALLGIC XTRCS NJXS PROF SVCS 11979 MARNI MARNI ALLG 3 LUIS ALFREDO LUIS ALFREDO IMMNTX X W/PRV ALLGIC XTRCS NJXS PERCUTANE 80736 MARNI MARNI OUS TESTS 3 LUIS ALFREDO LUIS ALFREDO W/ALLERGE ALVARADO EXTRACTS SPMTRY 04949 MARNI MARNI W/VC 3 LUIS ALFREDO LUIS [...] SUPPLIES SUPPLIES HIGH CALIBRATO R SOLUTION/ [facility] A4258 M E D M E D [...] PHARMACY PREP&SPL SHOE MX DNSITY INSRT SPMTRY 77014 MARNI MARNI W/VC 3 LUIS AL[facility] LUIS ALFREDO EXPIRATOR Y LULU W/WO MXML VOL VNTJ CYSTOURET 85729 [facility] PH[facility] JR HROSCOPY 3 [facility] P SCREENING G0202 [facility] MEDICAL AYLA MAMMOGRAP IMAGING HY DURGA ASS INCL CAD WHEN PERFORMD LOCM Q9965 [facility] 100-199 3 [facility] MG/ML INC INC IODINE CONCENTRA TION PER ML URETHROCY 17827 [facility] CORONEL STOGRAPHY 3 MEDICAL AYLA VOIDING IMAGING RS&I ASS NJX 92798 [facility] CORONEL RETROGRAD 3 MEDICAL AYLA E IMAGING URETHROCS ASS TOGRAPY COMPUTER- 50577 [facility] AIDED 3 MEDICAL AYLA DETECTION [place] [address] [facility] TRANSVAGI 3 [facility] NAL INC INC CULTURE 01484 COMBINED COMBINED BACTERIAL 3 PHYSICIAN PHYSICIAN S LA S LA QUANTTATI VE COLONY COUNT URINE URNLS DIP 98338 [facility] 3 [facility] STICK/TAB INTERNAL INTERNAL LET RGNT MEDI MEDI NON-AUTO W/O MICRSCP IM ADM 91624 [facility] PRQ ID 3 [place] CECE SUBQ/IM INTERNAL NJXS 1 MEDI VACCINE INJECTION J0696 [facility] 3 [facility] CEFTRIAXO INTERNAL NE SODIUM MEDI PER [facility] [address] [facility] DIS[facility] [address] [place] [address] INTERNAL MANAGEMEN MED T 30 MIN/< SBSQ [address] [place] [address] CARE/DAY INTERNAL 25 MED MINUTES SBSQ [address] [place] [address] CARE/DAY INTERNAL 25 MED MINUTES SBSQ [address] [place] [address] CARE/DAY INTERNAL 25 MED MINUTES 61519 [facility] CORONEL RETROPERI 3 MEDICAL AYLA TONEAL IMAGING REAL TIME ASS W/IMAGE COMPLETE FULL FACE A7030 [facility] MASK 3 MEDICAL MEDICAL USED SUPPLY SUPPLY W/POS INC. INC. [employer] DEVICE EA SBSQ [address] [place] [address]/DAY INTERNAL 25 MED MINUTES INITIAL 24215 [place] 3 [place] JR PETR CARE/DAY INTERNAL 50 MED MINUTES SCREEN Q0091 WOMEN'Mamta CARIAS PAP 3 [facility] SMEAR; CLINIC OF OBTAIN SONIA PREP &C ONVEY TO LAB CULTURE 35697 COMBINED COMBINED BACTERIAL 3 PHYSICIAN PHYSICIAN S LEVI Oleary LA QUANTTATI VE COLONY COUNT URINE URNLS DIP 77476 [facility] 3 [facility] STICK/TAB CLINIC OF LET RGNT SONIA NON-AUTO W/O MICRSCP CERV/VAGI G0101 [facility] ARETHA NAL 3 [facility] CLIN[facility] OF SCR; SONIA PELV&CLIN BREAST EXAM SCR G0145 PATHOLOGY PATHOLOGY CYTOPATH 3 & & CERV/VAG CYTOLOGY CYTOLOGY SCR LAB LAB AUTO&MNL RSCR PHYS URNLS DIP 03639 [facility] 3 [facility] STICK/TAB INTERNAL LET RGNT MEDI NON-AUTO W/O MICRSCP CULTURE 69198 COMBINED COMBINED BACTERIAL 3 PHYSICIAN PHYSICIAN S LEVI Oleary LA QUANTTATI VE COLONY COUNT URINE CULTURE 65782 [facility] BACTERIAL 3 [facility] INC INC QUANTTATI VE COLONY COUNT URINE CULTURE 87950 [facility] BCT 3 [facility] ISOL&PRSM INC INC PTV ID ISOLATE EA URINE LIPID 71148 [facility] PANEL 3 [facility] INC INC HEMOGLOBI 08053 [facility] N 3 [facility] GLYCOSYLA INC INC ML A1C BLOOD 53102 [facility] COUNT 3 [facility] COMPLETE INC INC AUTO&AUTO DIFRNTL WBC SUSCEPTIB 55178 [facility] LTY STDY 3 [facility] ANTIMICRB INC INC IAL MICRO/AGA R DILUTJ ALBUMIN 39938 [facility] URINE 3 [facility] MICROALBU INC INC MIN QUANTIATI VE COLLECTIO 52211 [facility] N VENOUS 3 [facility] BLOOD INC INC VENIPUNCT URE COMPREHEN 90993 [facility] SIVE 3 [facility] [address] [facility] THYROID 3 [facility] STIMULATI INC INC NG HORMONE TSH INITIAL 67271 [facility] INPATIENT 3 PSC CONSULT NEW/ESTAB PT 80 MIN SBSQ 23816 [facility] 3 PSC CARE/DAY 35 MINUTES SBSQ 30253 INPATIENT [facility] 3 CARE, CARE/DAY PLLC 25 MINUTES SBSQ 79188 INPATIENT [facility] 3 CARE, CARE/DAY PLLC 35 MINUTES NEBULIZER E0570 CRISTIN AMARAL WITH 3 HOME HOME [facility] MEDICAL MEDICAL R EQUIPME EQUIPME SBSQ 68317 INPATIENT [facility] 3 CARE, CARE/DAY PLLC 25 MINUTES SBSQ 48720 INPATIENT [facility] 3 CARE, CARE/DAY PLLC 35 MINUTES INITIAL 26963 INPATIENT [facility] 3 CARE, CARE/DAY PLLC 50 MINUTES BLD GLU A4253 M E D M E D TEST/REAG 2 SUPPLIES SUPPLIES T STRIPS HOME BLD GLU SUN- LANCETS A4259 M E D M E D PER BOX 2 SUPPLIES SUPPLIES OF 100 RADIOLOGI 40059 [facility] EXAM 2 MEDICAL AYLA CHEST 2 IMAGING VIEWS ASS FRONTAL&[place] [address] [facility] INFUSION 2 [facility] THERAPY/P INC INC ROPHYLAXI S /DX 1ST TO 1 HR BLOOD 83289 [facility] COUNT 2 [facility] COMPLETE INC INC AUTO&AUTO DIFRNTL WBC SUSCEPTIB 04721 [facility] LTY STDY 2 [facility] ANTIMICRB INC INC IAL MICRO/AGA R DILUTJ URNLS DIP 56009 [facility] 2 [facility] STICK/TAB INC INC LET REAGENT AUTO MICROSCOP Y THERAPEUT 76249 [facility] IC 2 [facility] [place]JECTION [place] [address] [facility] INFUSION 2 [facility] THERAPY INC INC PROPHYLAX IS/DX EA HOUR BASIC 10910 [facility] METABOLIC 2 [facility] PANEL INC INC CALCIUM TOTAL CULTURE 27141 [facility] BACTERIAL 2 [facility] INC INC QUANTTATI VE COLONY COUNT URINE CULTURE 92058 [facility] BCT 2 [facility] ISOL&PRSM INC INC PTV ID ISOLATE EA URINE INJECTION J2405 [facility] 2 [facility] ONDANSETR INC INC ON HCL PER 1 MG HEADGEAR A7035 [facility] USED 2 MEDICAL MEDICAL W/POSITIV SUPPLY SUPPLY E [employer] INC. INC. PRESSURE DEVICE NASL A7034 [facility] INTRFCE 2 MEDICAL MEDICAL POS ARWAY SUPPLY SUPPLY PRSS INC. INC. DEVC W/WO HEAD STRAP RADEX 04609 [facility] HUMERUS 2 MEDICAL AYLA MINIMUM 2 IMAGING VIEWS ASS RADEX 13389 [facility] FINGR 2 MEDICAL AYLA MINIMUM 2 IMAGING VIEWS ASS RADIOLOGI 05513 [facility] C 2 MEDICAL AYLA EXAMINATI IMAGING ON KNEE ASS 1/2 VIEWS BLD GLU A4253 [facility] TEST/REAG 2 [facility] T STRIPS PHARMACY PHARMACY HOME BLD LLC, D LLC, D GLU MON-50 NEBULIZER E0570 CRISTIN AMARAL WITH 2 HOME HOME [facility] MEDICAL MEDICAL R EQUIPME EQUIPME COLONOSCO 16899 [facility] PALOMO PY 2 L SURGIAL CATRACHITO W/BIOPSY SINGLE/MU ASSOCIATE LTIPLE SPECIAL 16840 [facility] STAIN 2 ORIENTAL ORTHODOX ORIENTAL ORTHODOX GROUP 1 HOSP HOSP MICROORGA NISMS I&[place] [address] [facility] SURG 2 ORIENTAL ORTHODOX ORIENTAL ORTHODOX PATHOLOGY HOSP HOSP GROSS&SHANTHI ROSCOPIC EXAM RADEX 40444 [facility] SMALL 2 ORIENTAL ORTHODOX ORIENTAL ORTHODOX INTESTINE HOSP HOSP W/MULTIPL E SERIAL IMAGES EGD 25521 COLORECTA PALOMO TRANSORAL 2 L SURGIAL CATRACHITO BIOPSY SINGLE/MU ASSOCIATE LTIPLE ENDOSCOPY 40629 ORIENTAL ORTHODOX ORIENTAL ORTHODOX UPPER 2 PHYS SURG PHYS SURG SMALL CTR CTR INTESTINE W/BIOPSY ANES 96663 [facility] FERGUSON LOWER 2 [place] [facility] INTESTINE ANESTHESI A ENDOSCOPY DISTAL DUODENUM RADIOLOGI 95778 [facility] [place] GARCIA C 2 RADIOLOGY RAY EXAMINATI ON CHEST SINGLE VIEW FRONTAL ECG 45645 [facility] MARCELINO ROUTINE 2 KAMAR DEIDRA ECG EMERGENCY W/LEAST PHYS 12 LDS I&R ONLY NEBULIZER E0570 CRISTIN AMARAL WITH 2 HOME HOME [facility]PRESS[facility] MEDICAL MEDICAL R EQUIPME EQUIPME BLD GLU A4253 [facility] TEST/REAG 2 CVS CVS T STRIPS PHARMACY PHARMACY HOME BLD LLC, D LLC, D GLU MON-50 CYANOCOBA 40297 [facility] PRATEEK 2 AMERIC AMERIC VITAMIN HOLDING [place]ING B-12 [place] [address] LAB [facility] LIPASE 2 AMERIC AMERIC HOLDING HOLDING ADMINISTR G0008 HORIZON BAZZI ATION OF 2 HEALTHCAR TAR INFL[place]EN[place] [address] [facility] FOLIC 2 AMERIC [employer] [place] [address] [facility] AMYLASE 2 AMERIC AMERIC HOLDING HOLDING ACUTE 54924 [facility] HEPATITIS 2 AMERIC AMERIC PANEL HOLDING HOLDING INFLUENZA Q2036 [facility] BAZZI VACC 2 HEALTHCAR TAR SPLIT E CENTER VIRUS 3 YRS & > IM FLULAVAL HEMOGLOBI 88133 [facility] N 2 AMERIC AMERIC GLYCOSYLA HOLDING HOLDING ML A1C NEBULIZER E0570 CRISTIN AMARAL WITH 2 HOME HOME COMPRESSO MEDICAL MEDICAL R EQUIPME EQUIPME HOME E0607 [facility] BLOOD 2 CVS CVS GLUCOSE PHARMACY PHARMACY MONITOR LLC, D LLC, D COMPREHEN 43793 [facility] SIVE 2 AMERIC [employer] METABOLIC [place] [address] [facility] THYROID 2 AMERIC AMERIC STIMULATI HOLDING HOLDING NG HORMONE TSH HEPATITIS 94477 LAB Y[facility] LAB [facility]IR[facility] ANTIBODY 2 AMERIC AMERIC HAAB IGM HOLDING HOLDING ANTIBODY LANCETS A4259 [facility] PER BOX 2 CVS CVS OF 100 PHARMACY PHARMACY LLC, D LLC, D BLD GLU A4253 M E D M E D TEST/REAG 2 SUPPLIES SUPPLIES T STRIPS HOME BLD GLU MON-50 LANCETS A4259 M E D M E D PER BOX 2 SUPPLIES SUPPLIES OF 100 NORMAL A4256 M E D M E D LOW AND 2 SUPPLIES SUPPLIES HIGH CALIBRATO R SOLUTION/ [facility]-PO A4258 M E D M E D WERED 2 SUPPLIES SUPPLIES DEVICE FOR LANCET EACH REPL DEYSI A4235 M E D M E D LITHIUM 2 SUPPLIES SUPPLIES MED NECES OSCAR BG MON OWN PT EA SBSQ 98477 [facility] 2 PSC CARE/DAY 25 MINUTES SET-UP Q0092 [facility] PORTABLE 2 MOBILE MOBILE X-RAY DIAGNOSTI DIAGNOSTI EQUIPMENT C SE C SE RADEX 32325 [facility] SPINE 2 MOBILE MOBILE CERVICAL DIAGNOSTI DIAGNOSTI 2 OR 3 C SE C SE VIEWS TRANS R0070 [facility] PRTBL 2 MOBILE MOBILE X-RAY DIAGNOSTI DIAGNOSTI EQP&PERS C SE C SE OSCAR/NRS OSCAR-TRIP 1 PT SBSQ 96914 [facility] 2 PSC CARE/DAY 25 MINUTES SBSQ 04297 INPATIENT [facility] 2 CARE, CARE/DAY PLLC [address] [facility] [place] ROUTINE 2 FORTINO CAROLYN ECG CARDIOLOG W/LEAST Y CLINIC 12 LDS I&[place] [address] [facility] [place] PETER HEAD/BRAI 2 RADIOLOGY JULIÁN N W/O CONTRAST MATERIAL SBSQ 47803 [facility] 2 PSC CARE/DAY 25 MINUTES SBSQ 46250 [facility] 2 PSC CARE/DAY 25 MINUTES NEBULIZER E0570 CRISTIN AMARAL WITH 2 HOME HOME [facility] MEDICAL MEDICAL R EQUIPME EQUIPME DUP-SCAN 00709 [facility] [place] BRIZUELA JAM XTR VEINS 2 RADIOLOGY UNILATERA L/LIMITED STUDY ECG 38036 [facility] ROUTINE 2 MOBILE MOBILE ECG DIAGNOSTI DIAGNOSTI W/LEAST C SE C SE 12 LDS TRCG ONLY W/O I&R TRANS R0075 [facility] PRTBL 2 MOBILE MOBILE XRAY DIAGNOSTI DIAGNOSTI EQP&PERS C SE C SE OSCAR/NRS OSCAR-TRIP> 1 PT SET-UP Q0092 [facility] PORTABLE 2 MOBILE MOBILE X-RAY DIAGNOSTI DIAGNOSTI EQUIPMENT C SE C SE RADIOLOGI 49678 [facility] C EXAM 2 MOBILE MOBILE CHEST 2 DIAGNOSTI DIAGNOSTI VIEWS C SE C SE FRONTAL&L ATERAL SBSQ 63597 [facility] 2 PSC CARE/DAY 35 MINUTES COLLECTIO 13373 [facility] N VENOUS 2 [facility] BLOOD INC INC VENIPUNCT URE DNA 72503 [facility] ANTIBODY 2 [facility] PILOT POINT/DO INC INC UBLE STRANDED DNA 80920 [facility] ANTIBODY 2 [facility] SINGLE INC INC STRANDED IM ADM 96851 [facility] PRQ ID 2 VALLEY CECE SUBQ/IM INTERNAL NJXS 1 MEDI VACCINE BASIC 94484 [facility] METABOLIC 2 [facility] PANEL INC INC CALCIUM TOTAL ANTINUCLE 01610 [facility] AR 2 [facility] ANTIBODIE INC INC S NADINE SEDIMENTA 06875 [facility] TION RATE 2 [facility] RBC INC INC NON-AUTOM ATED SKIN TEST 07711 [facility] 2 VALLEY CECE TUBERCULO INTER[place] [address] [facility] LIPASE 2 [facility] INC INC COLLECTIO 56949 [facility] N VENOUS 2 [facility] BLOOD INC INC VENIPUNCT URE COMPREHEN 54686 [facility] SIVE 2 [facility] [address] [facility] AMYLASE 2 [place] [address] [facility] THYROID 2 [facility] STIMULATI INC INC NG HORMONE TSH BLOOD 60555 [facility] COUNT 2 [facility] COMPLETE INC INC AUTO&AUTO DIFRNTL WBC CARCINOEM 23153 [facility] BRYONIC 2 [facility] ANTIGEN INC INC CEA NEBULIZER E0570 CRISTIN AMARAL WITH 2 HOME HOME [facility] MEDICAL MEDICAL R EQUIPME EQUIPME COLLECTIO 22813 [facility] N VENOUS 2 Y Y BLOOD [facility] VENIPUNCT URE INJECTION J2405 [facility] 2 Y [facility] [place] ON HCL PER 1 MG LOCM Q9967 [facility] [phone] Y Y MG/ML [facility] [place] [address] [place] MAXILLOFA 2 MEDICAL CIAL SERV W/CONTRAS FOUNDATIO T MATERIAL BASIC 11593 [facility] METABOLIC 2 Y Y PANEL [facility] [place] [address] [facility] INFUSION 2 Y Y THERAPY/P [facility] ROPHYLAXI S /DX 1ST TO 1 HR BLOOD 47250 [facility] COUNT 2 Y Y COMPLETE [facility] AUTO&AUTO DIFRNTL WBC THERAPEUT 86202 [facility] IC 2 Y Y INJECTION [facility] IV PUSH EACH NEW DRUG INJECTION J2270 [facility] MORPHINE 2 Y Y SULFATE [facility] UP TO 10 MG PREPJ& 11937 MARNI REYNAGAURN ALLERGEN 2 [facility] IMMUNOTHE TITIY 1/BANK AND SAVINGS 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 ANTIGEN NEBULIZER E0570 CRISTIN AMARAL WITH 2 HOME HOME [facility] R EQUIPME EQUIPME PROF [facility] [address]695 MARNI MARNI ALLG 2 LUIS ALFR[facility] LUIS ALFREDO IMMNTX X W/PRV ALLGIC XTRCS NJXS PROF [facility] 85955 MARNI MARNI ALLG 2 LUIS ALFREDO LUIS ALFREDO IMMNTX X W/PRV ALLGIC XTRCS NJXS PROF [facility] 35159 MARNI MARNI ALLG 2 LUIS ALFREDO LUIS [...] SUPPLIES HIGH CALIBRATO R SOLUTION/ CHIPS PROF [facility] 61396 MARNI MARNI ALLG 2 LUIS ALFREDO LUIS ALFREDO IMMNTX X W/PRV ALLGIC XTRCS [facility] PROF [facility] 60103 MARNI MARNI ALLG 2 LUIS ALFREDO LUIS ALFREDO IMMNTX X W/[place] [address] [facility]OPONIN [facility] QUANTITAT INC INC ANNABELLA NATRIURET 32625 [facility] IC [facility] PEPTIDE INC INC BLOOD 42436 [facility] COUNT 2 [facility] COMPLETE INC INC AUTO&AUTO DIFRNTL WBC ECG 49837 MARLO FATIMA ROUTINE 2 EMERGENCY PETR ECG SERVICES W/LEAST 12 LDS I&R ONLY CREATINE 41279 [facility] KINASE 2 [facility] TOTAL INC INC THER 88840 [facility] PROPH/DX 2 [facility] NJX IV INC INC PUSH SINGLE/1S T SBST/DRUG ECG 98388 [facility] ROUTINE 2 [facility] ECG INC INC W/LEAST 12 LDS TRCG ONLY W/O I&R COMPREHEN 69674 [facility] SIVE 2 [facility] METABOLIC INC INC PANEL CREATINE 53946 [facility] KINASE MB 2 [facility] FRACTION INC INC ONLY RADIOLOGI 44551 [facility] C 2 [facility] EXAMINATI INC [place] [address] MARNI MARNI ALLG 2 [facility] LUIS ALFREDO IMMNTX X W/PRV ALLGIC XTRCS [facility] PROF SVCS 76016 MARNI MARNI ALLG 2 LU[facility] ALFREDO LUIS ALFREDO IMMNTX X W/PRV ALLGIC XTRCS [facility] PROF SVCS 16285 MARNI MARNI ALLG 2 [facility] ALFREDO LUIS ALFREDO IMMNTX X W/PRV ALLGIC XTRCS [facility] CULTURE 04931 [facility] BACTERIAL [facility] INC INC QUANTTATI VE COLONY COUNT URINE CULTURE 17309 [facility] BCT 2 [facility] ISOL&PRSM INC INC PTV ID ISOLATE EA URINE 3D 69032 [facility] RENDERING 2 [facility] INC INC W/INTERP& POSTPROC DIFF WORK STATION COMPREHEN 53332 [facility] SIVE 2 [facility] METABOLIC INC INC PANEL INJECTION J2405 [facility] 2 [facility] ONDANSETR INC [place] H[place] [address] [place] [address] [facility] ABDOMEN & 2 [facility] PELVIS INC INC W/O CONTRAST MATERIAL THER 04334 [facility] PROPH/DX 2 [facility] NJX IV INC INC PUSH SINGLE/1S T SBST/DRUG BLOOD 55109 [facility] COUNT 2 [facility] COMPLETE INC INC AUTO&AUTO DIFRNTL WBC SUSCEPTIB 34446 [facility] LTY STDY 2 [facility] ANTIMICRB INC INC IAL MICRO/AGA R DILUTJ URNLS DIP 96294 [facility] MENDING 2 [facility] HEARTS STICK/TAB INC LET REAGENT AUTO MICROSCOP Y THERAPEUT 42736 [facility] IC 2 [facility] INJECTION INC INC IV PUSH EACH NEW DRUG PROF [facility] 267[address] MARNI MARNI ALLG 2 [facility] AL[facility]O LUIS ALFERDO IMMNTX X W/PRV ALLGIC XTRCS NJXS NEBULIZER E0570 CRISTIN AMARAL WITH 2 HOME HOME [facility] R EQUIPME EQUIPME PROF [facility] [address]8783 MARNI MARNI ALLG 2 [facility] LUIS ALFREDO IMMNTX X W/PRV ALLGIC XTRCS NJXS PROF [facility] 80074 MARNI MARNI ALLG 2 LUIS ALFREDO LUIS ALFREDO IMMNTX X W/PRV ALLGIC XTRCS NJXS PROF [facility] [address] MARNI MARNI ALLG 2 LUIS ALFREDO LUIS ALFREDO IMMNTX X W/PRV ALLGIC XTRCS NJXS PROF [facility] 71177 MARNI MARNI ALLG 2 LUIS ALFREDO LUIS ALFREDO IMMNTX X W/PRV ALLGIC XTRCS NJXS RADEX 99229 [place] [facility]OT 2 [facility] COMPLETE IMAGING MINIMUM 3 ASS VIEWS COMPREHEN 50036 [facility] SIVE 2 [facility] METABOLIC INC INC PANEL SEDIMENTA 98137 [facility] TION RATE 2 [facility] [place] [address] [facility] BLOOD/URI 2 [facility] C ACID INC INC BLOOD 94432 [facility] COUNT 2 [facility] COMPLETE INC INC AUTO&AUTO DIFRNTL WBC URNLS DIP 44216 [facility] 2 [facility] STICK/TAB INC INC LET REAGENT AUTO MICROSCOP Y PROF [facility] 84399 MARNI MARNI ALLG 2 LUIS ALFREDO LUIS ALFREDO IMMNTX X W/PRV ALLGIC XTRCS NJXS PROF [facility] 13249 MARNI MARNI ALLG 2 LUIS ALFREDO LUIS ALFREDO IMMNTX X W/PRV ALLGIC XTRCS NJXS PROF [facility] 45861 MARNI MARNI ALLG 2 LUIS ALFREDO LUIS ALFREDO IMMNTX X W/PRV ALLGIC XTRCS NJXS NEBULIZER E0570 CRISTIN AMARAL WITH 2 HOME HOME COMPRESSO MEDICAL MEDICAL R EQUIPME EQUIPME PROF [facility] 73855 MARNI MARNI ALLG 2 LUIS ALFREDO LUIS ALFREDO IMMNTX X W/PRV ALLGIC XTRCS NJXS PROF [facility] 44282 MARNI MARNI ALLG 2 LUIS ALFREDO LUIS ALFREDO IMMNTX X W/PRV ALLGIC XTRCS NJXS PROF [facility] 40359 MARNI MARNI ALLG 2 LUIS ALFREDO LUIS ALFREDO IMMNTX X W/PRV ALLGIC XTRCS NJXS PROF [facility] 87247 MARNI MARNI ALLG 2 LUIS ALFREDO LUIS ALFREDO IMMNTX X W/PRV ALLGIC XTRCS NJXS PREPJ& 31079 MARNI MARNI ALLERGEN 2 LUIS ALFREDO LUIS ALFREDO IMMUNOTHE RAPY 1/BANK AND SAVINGS SECURITIES TRADER ANTIGEN CULTURE 19045 [facility] BACTERIAL 2 [facility] INC INC QUANTTATI VE COLONY COUNT URINE CULTURE 24816 [facility] BCT 2 [facility] ISOL&PRSM INC INC PTV ID ISOLATE EA URINE LIPID 57244 [facility] PANEL 2 [facility] INC INC BLOOD 82166 [facility] COUNT 2 [facility] COMPLETE INC INC AUTO&AUTO DIFRNTL WBC SUSCEPTIB 55694 [facility] LTY STDY 2 [facility] ANTIMICRB INC INC IAL MICRO/AGA R DILUTJ URNLS DIP 83157 [facility] 2 [facility] STICK/TAB INC [place] [address] MARNI MARNI ALLG 2 LUIS ALFREDO LUIS ALFREDO IMMNTX X W/PRV ALLGIC XTRCS NJXS COLLECTIO 45071 [facility] N VENOUS 2 [facility] BLOOD INC INC VENIPUNCT URE COMPREHEN 79312 [facility] SIVE 2 [facility] [address] BR[facility] THYROID 2 [facility] STIMULATI INC INC NG HORMONE TSH PROF [facility] 49478 MARNI MARNI ALLG 2 LUIS ALFREDO LUIS ALFREDO IMMNTX X W/PRV ALLGIC XTRCS NJXS SPMTRY 90663 MARNI MARNI W/VC 2 LUIS ALFREDO LUIS ALFREDO EXPIRATOR Y LULU W/WO MXML VOL VNTJ PROF SVCS 19827 MARNI MARNI ALLG 2 LUIS ALFREDO LUIS ALFREDO IMMNTX X W/PRV ALLGIC XTRCS NJXS PROF [facility] 86811 MANRI MARNI ALLG 2 LUIS ALFREDO LUIS ALFREDO IMMNTX X W/PRV ALLGIC XTRCS NJXS PROF [facility] 95882 MARNI MARNI ALLG 2 LUIS ALFREDO LUIS ALFREDO IMMNTX X W/PRV ALLGIC XTRCS NJXS GLUC BLD 53394 [facility] GLUC MNTR 2 [facility] DEV INC INC CLEARED FDA SPEC HOME USE COLLECTIO 38986 [facility] N VENOUS 2 [facility] BLOOD INC INC VENIPUNCT URE COMPREHEN 89997 [facility] SIVE 2 [facility] METABOLIC INC INC PANEL INJECTION J2405 [facility] 2 [facility] ONDANSETR INC INC ON HCL PER [facility] G0378 [facility] OBSERVATI 2 [facility] ON INC INC SERVICE PER HOUR NEBULIZER E0570 CRISTIN AMARAL WITH 2 HOME HOME COMPRESSO MEDICAL MEDICAL R EQUIPME EQUIPME BLOOD 65168 [facility] COUNT 2 [facility] COMPLETE INC INC AUTO&AUTO DIFRNTL WBC PRESSURIZ 95461 [facility] ED/NONPRE 2 [facility] SSURIZED INC INC INHALATIO N TREATMENT NONINVASI 83986 [facility] VE 2 [facility] EAR/PULSE INC INC OXIMETRY SINGLE DETER OBSERVATI 35505 [facility]ARE 2 [place] [facility] DISCHARGE INTERNAL MED MANAGEMEN T CUL BACT 97583 BRANDON BRANDON XCPT 2 [facility] URINE INC INC BLOOD/STO OL AEROBIC ISOL CUL BACT 46024 [facility] AEROBIC 2 [facility] ADDL INC INC METHS DEFINITIV E EA ISOL CULTURE 46806 [facility] BACTERIAL 2 [facility] INC INC QUANTTATI VE COLONY COUNT URINE SUSCEPTIB 38204 BR[facility] LTY STDY 2 [facility] ANTIMICRB INC INC IAL MICRO/AGA R DILUTJ URNLS DIP 45981 BRANDONKATI TAYLOR 2 [facility] STICK/TAB INC INC LET REAGENT AUTO MICROSCOP Y GLUC BLD 72782 [facility] GLUC MNTR 2 [facility] DEV INC INC CLEARED FDA SPEC HOME USE BLOOD 75319 [facility] COUNT 2 [facility] COMPLETE INC INC AUTO&AUTO DIFRNTL WBC INITIAL 75916 [place] MCKEMIE OBSERVATI 2 [place] JR PETR ON INTERNAL CARE/DAY MED 30 MINUTES SEDIMENTA 43175 [facility] TIKATI RATE 2 [facility] RBC INC INC NON-AUTOM ATED COLLECTIO 80063 [facility] N VENOUS 2 [facility] BLOOD INC INC VENIPUNCT URE HOSPITAL G0378 [facility] OBSERVATI 2 [facility] ON INC INC SERVICE PER HOUR INJECTION J2405 [facility] 2 [facility] ONDANSETR INC INC ON HCL PER 1 MG COMPREHEN 60615 [facility] SIVE 2 [facility] METABOLIC INC INC PANEL URNLS DIP 80797 [facility] [place] 2 [facility] STICK/TAB INTERNAL INTERNAL LET RGNT MED MED NON-AUTO W/O MICRSCP THERAPEUT 19050 [facility] IC 2 [facility] PROPHYLAC INC INC TIC/DX INJECTION SUBQ/IM PROF SVCS 68634 MARNI MARNI ALLG 2 LUIS ALFREDO LUIS ALFREDO IMMNTX X W/PRV ALLGIC XTRCS NJXS PROF [facility] 85267 MARNI MARNI ALLG 2 LUIS ALFREDO LUIS ALFREDO IMMNTX X W/PRV ALLGIC XTRCS NJXS COLLECTIO 27335 [facility] N VENOUS 2 [facility] [place]LOOD [place] [address] BRANDON BRANDON UREA 2 [facility] NITROGEN INC INC QUANTITAT ANNABELLA LOCM Q9967 BR[facility] [phone] 2 [facility] MG/ML INC [place] [address] [facility] HEAD/BRAI 2 [facility] N W/O & INC INC W/[place] [address] BRANDON BRANDON MAXILLOFA 2 [facility] CIAL W/O INC INC & W/CONTRAS T MATERIAL CREATININ 35128 [facility] E BLOOD 2 [facility] INC INC 3D 21719 [facility] RENDERING 2 [facility] W/INTERP INC INC & POSTPROCE SS SUPERVISI ON CT ORBIT 24798 [facility] SELLA/POS 2 MEDICAL AYLA T IMAGING FOSSA/EAR ASS W/O & W/[place] [address] [facility] MAXILLOFA 2 MEDICAL AYLA CIAL W/[place] [address] [facility] HEAD/BRAI 2 MEDICAL AYLA N W/O IMAGING CONTRAST ASS MATERIAL 3D 24817 [facility] RENDERING 2 [facility] INC INC W/INTERP& POSTPROC DIFF WORK STATION [facility] A4258 M E D M E D [...] HIGH CALIBRATO R SOLUTION/ CHIPS REPL DEYSI A4233 M E D M E D ALKALINE 2 SUPPLIES SUPPLIES NOT J CELL OSCAR BG MON OWND PT PROF [facility] 56149 MARNI MARNI ALLG 2 LUIS ALFREDO LUIS ALFREDO IMMNTX X W/PRV ALLGIC XTRCS NJXS PROF [facility] 83567 MARNI MARNI ALLG 2 LUIS ALFREDO LUIS ALFREDO IMMNTX X W/PRV ALLGIC XTRCS NJXS FUNDUS 44703 KENZIE ESPINO PHOTOGRAP 2 JAM JAM HY W/INTERPR ETATION & REPORT VISUAL 06565 KENZIE ESPINO FIELD XM 2 JAM JAM UNI/BI W/INTERP EXTENDED EXAM PROF [facility] 83903 MARNI MARNI ALLG 2 LUIS ALFREDO LUIS ALFREDO IMMNTX X W/PRV ALLGIC XTRCS NJXS PREPJ& 10823 MARNI MARNI ALLERGEN 2 LUIS ALFREDO LUIS ALFREDO IMMUNOTHE RAPY 1/BANK AND SAVINGS SECURITIES TRADER ANTIGEN DEMO&/POLLY 67306 MARNI MARNI L OF PT 2 LUIS ALFREDO LUIS ALFREDO UTILIZ AERSL GEN/NEB/I NHLR/IP BRNCDILAT 10113 MARNI MARNI RSPSE 2 LUIS ALFREDO LUIS ALFREDO SPMTRY PRE&POST- BRNCDILAT ADMN PERCUTANE 92507 MARNI MANN OUS TESTS 2 LUIS ALFREDO BET W/ALLERGE ALVARADO EXTRACTS INTRACUTA 18214 MARNI MARNI NEOUS 2 LUIS ALFREDO LUIS ALFREDO TESTS W/ALLERGE ALVARADO EXTRACTS NEBULIZER E0570 CRISTIN AMARAL WITH 2 HOME HOME [facility] R [facility] 34400 [facility] DISCHARGE 2 [facility] DAY INTERNAL MANAGEMEN MED T 30 MIN/< SBSQ 15255 [facility] 2 [place] [facility] CARE/DAY INTERNAL 25 MED MINUTES INITIAL 79275 [facility] CARE/DAY INTERNAL 50 MED MINUTES RADIOLOGI 94619 [facility] C EXAM 2 MEDICAL AYLA CHEST 2 IMAGING VIEWS ASS FRONTAL&L ATERAL INJECTION J3301 [facility] [place] 2 [facility] TRIAMCINO INTERNAL INTERNAL LONE MEDI MEDI ACETONIDE NOS 10 MG THERAPEUT 65442 [place] [facility] IC 2 [facility] [place] PROPHYLAC INTERNAL TIC/DX MEDI INJECTION SUBQ/IM INJECTION J0696 [facility] 2 [facility] CEFTRIAXO INTERNAL NE SODIUM MEDI PER 250 MG RADIOLOGI 32125 [facility] C 2 [facility] EXAMINATI INC INC [place] [address] [facility] TROPONIN 2 [facility] QUANTITAT INC INC ANNABELLA NATRIURET 76791 [facility] IC 2 [facility] PEPTIDE INC INC BLOOD 03092 [facility] COUNT 2 [facility] COMPLETE INC INC AUTO&AUTO DIFRNTL WBC THERAPEUT 67831 [facility] IC 2 [facility] INJECTION INC INC IV PUSH EACH NEW DRUG ECG 25205 BRANDON FAJARDO ROUTINE 2 [facility] W/LEAST P 12 LDS I&R ONLY ECG 17177 [facility] ROUTINE 2 [facility] ECG INC INC W/LEAST 12 LDS TRCG ONLY W/O I&R CREATINE 07823 [facility] KINASE 2 [facility] TOTAL INC INC THER 68915 RBANDON T[facility]OR PROPH/DX 2 [facility] NJX IV INC INC PUSH SINGLE/1S T SBST/DRUG COMPREHEN 73964 [facility] SIVE 2 [facility] METABOLIC INC INC PANEL CREATINE 74107 [facility] KINASE MB 2 [facility] FRACTION INC INC ONLY INJECTION J2405 [facility] 2 [facility] ONDANSETR INC INC ON HCL PER 1 MG OPHTHALMO 43340 KENZIE ESPINO SCPY 2 [facility] EXTENDED RETINAL DRAWING I&R 1ST DETERMINA 62779 KENZIE ESPINO TION 2 [facility] REFRACTIV E STATE NEBULIZER E0570 CRISTIN AMARAL WITH 2 HOME HOME COMPRESSO MEDICAL MEDICAL R EQUIPME EQUIPME NEBULIZER E0570 CRISTIN AMARAL WITH 2 HOME HOME COMPRESSO MEDICAL MEDICAL R EQUIPME EQUIPME ADMN SET A7003 YOUR YOUR SM VOL 2 PHARMACY PHARMACY NONFILTR [facility] PNEUMAT NEBULIZR DISPBL PHARM G0333 YOUR YOUR DISPEN 2 PHARMACY PHARMACY FEE INHAL [facility] RX; INITIAL 30-DAY SUPPLY ALBUTEROL J7613 YOUR YOUR INHAL 2 PHARMACY PHARMACY NON-CP [facility] PROD THRU DME U DOSE 1 MG RADIOLOGI 09814 [facility] EXAM 2 MEDICAL AYLA CHEST 2 IMAGING VIEWS ASS FRONTAL&L ATERAL NONINVASI 72627 [facility] [place] VE 2 [facility] EAR/PULSE INTERNAL OXIMETRY MEDI SINGLE DETER RADIOLOGI 26412 [facility] EXAM 2 MEDICAL AYLA CHEST 2 IMAGING VIEWS ASS FRONTAL&[place] [address] [facility] INFUSION 2 [facility] THERAPY/P INC INC ROPHYLAXI S /DX 1ST TO 1 [place] [address] BR[facility] TROPONIN 2 [facility] QUANTITAT INC INC ANNABELLA BLOOD 13515 [facility] COUNT 2 [facility] COMPLETE INC INC AUTO&AUTO DIFRNTL WBC PRESSURIZ 37214 [facility] ED/NONPRE 2 [facility] SSURIZED INC INC INHALATIO N TREATMENT THERAPEUT 04099 [facility] IC 2 [facility] INJECTION INC INC IV PUSH EACH NEW DRUG COMPREHEN 13550 [facility] SIVE 2 [facility] METABOLIC INC INC PANEL CREATINE 96375 BRANDON BRANDON KINASE MB 2 [facility] FRACTION INC INC ONLY CREATINE 75435 [facility] KINASE 2 [facility] TOTAL INC INC IAADI 29524 BRANDON BR[facility] INFLUENZA 2 [facility] B VIRUS INC INC IAADI 53042 [facility] INFFLUENZ 2 [facility] MEM [...] SUPPLIES HIGH CALIBRATO R SOLUTION/ CHIPS LARYNGOSC 74567 EAR, NOSE SHASHY OPY 1 AND SOBEIDA FLEXIBLE THROAT DIAGNOSTI SPECIAL C SMOKE TOB G0436 EAR, NOSE EAR, NOSE 1 AND AND CESSATION THROAT THROAT CNSL SPECIAL SPECIAL PT; INTRMED 3-10 [place] [address] [facility] INFUSION 1 [facility] THERAPY INC [place] PROPHY[place]X IS/[place] [address] [facility] INFUSION 1 [facility] THERAPY/P INC INC ROPHYLAXI S /DX 1ST TO 1 HR GLUC BLD 77404 [facility] GLUC MNTR 1 [facility] DEV INC INC CLEARED FDA SPEC HOME USE ESOPHAGOG 78197 C SOPHIE LYONS ASTRODUOD 1 ELOY MAHER MD [facility] TRANSORAL DIAGNOSTI C LARYNGOSC 36986 EAR, NOSE SHASHY OPY 1 AND SOBEIDA FLEXIBLE THROAT DIAGNOSTI SPECIAL C HEMOGLOBI 00682 COMBINED COMBINED N 1 PHYSICIAN PHYSICIAN GLYCOSYLA S LA S LA ML A1C BASIC 55048 COMBINED COMBINED METABOLIC 1 PHYSICIAN PHYSICIAN [place] [address] COMBINED COMBINED BLOOD/URI 1 PHYSICIAN PHYSICIAN C ACID S LA S LA COLLECTIO 76414 COMBINED COMBINED N VENOUS 1 PHYSICIAN PHYSICIAN BLOOD S LA S LA VENIPUNCT URE CT SOFT 95243 [facility] TISSUE 1 [facility] NECK W/O INC INC CONTRAST MATERIAL 3D 15881 [facility] RENDERING 1 [facility] INC INC W/INTERP& POSTPROC DIFF WORK STATION CONTINUOU E0601 CRISTIN AMARAL S 1 HOME HOME POSITIVE MEDICAL MEDICAL AIRWAY EQUIPME EQUIPME PRESSURE DEVICE COLLECTIO 82629 [facility] N VENOUS 1 [facility] BLOOD INC INC VENIPUNCT URE COMPREHEN 45750 BRANDON T[facility]OR SIVE 1 [facility] [address] [facility] THYROID 1 [facility] STIMULATI [place] [address] BRANDON BRANDON FERRITIN 1 [facility] INC INC BLOOD 57321 [facility] COUNT 1 [facility] COMPLETE INC INC AUTO&[place] [address] DERMATOLO NARGIS II SURG 1 GY [facility] PATHOLOGY CONSULTAN TS PSC GROSS&SHANTHI ROSCOPIC EXAM REPL DYESI A4233 M E D M E D ALKALINE 1 SUPPLIES SUPPLIES NOT J CELL OSCAR BG MON OWND PT SPRING-PO A4258 M E D M E D WERED 1 SUPPLIES SUPPLIES DEVICE FOR LANCET EACH BLD GLU A4253 M E D M E D TEST/REAG 1 SUPPLIES SUPPLIES T STRIPS HOME BLD GLU MON-50 LANCETS A4259 M E D M E D PER BOX 1 SUPPLIES SUPPLIES OF 100 NORMAL A4256 M E D M E D LOW AND 1 SUPPLIES SUPPLIES HIGH CALIBRATO R SOLUTION/ CHIPS RADIOLOGI 05871 [facility] EXAM 1 MEDICAL AYLA CHEST 2 IMAGING VIEWS ASS FRONTAL&L ATERAL THER 01204 [facility] PROPH/DX 1 [facility] NJX IV INC INC PUSH SINGLE/1S T SBST/DRUG COMPREHEN 15639 [facility] SIVE 1 [facility] METABOLIC INC INC PANEL AMBULANCE A0429 [facility] SERVICE 1 AMBULANCE AMBULANCE BLS SERVICE SERVICE EMERGENCY TRANSPORT GROUND A0425 [facility] MILEAGE 1 AMBULANCE AMBULANCE PER SERVICE SERVICE STATUTE MILE BLOOD 46580 [facility] COUNT 1 [facility] COMPLETE INC INC AUTO&AUTO DIFRNTL WBC PRESSURIZ 39077 [facility] ED/NONPRE 1 [facility] SSURIZED INC INC INHALATIO N TREATMENT THERAPEUT 11391 [facility] IC 1 [facility] INJECTION INC INC IV PUSH EACH NEW DRUG SUSCEPTIB 63391 [facility] LTY STDY 1 [facility] ANTIMICRB INC INC IAL MICRO/AGA R DILUTJ CULTURE 06456 [facility] BACTERIAL 1 [facility] INC INC QUANTTATI VE COLONY COUNT URINE CULTURE 45947 [facility] BCT 1 [facility] ISOL&PRSM INC INC PTV ID ISOLATE EA URINE CHIROPRAC 55379 KAVYA HOFF TIC 1 JANET JANET MANIPULAT ANNABELLA [place] SPINAL 1-2 REGIONS CONTINUOU E0601 CRISTIN JORDANRELL S 1 HOME HOME POSITIVE MEDICAL MEDICAL AIRWAY EQUIPME EQUIPME PRESSURE DEVICE NON-INVAS 00039 [facility] MORRISHOMER ANNABELLA 1 MEDICAL AYLA PHYSIOLOG IMAGING IC STUDY ASS EXTREMITY 3 LEVLS DUP-SCAN 48478 [facility] GARHOMER XTR VEINS 1 MEDICAL AYLA COMPLETE IMAGING ASS BILATERAL STUDY DUP-SCAN 96974 BRANDONKATI TAYLOR XTR VEINS 1 [facility] INC INC UNILATERA L/LIMITED STUDY DEBRIDEME 49922 PAWSAT PAWSAT NT NAIL 1 MAR MAR ANY METHOD 6/> CHIROPRAC 24079 KAVYA HOFF TIC 1 JANET JANET MANIPULAT ANNABELLA [place] SPINAL 1-2 REGIONS CONTINUOU E0601 CRISTIN CRISTIN S 1 HOME HOME POSITIVE MEDICAL MEDICAL AIRWAY EQUIPME EQUIPME PRESSURE DEVICE COMPREHEN 27746 [facility] SIVE 1 [facility] [address] [facility] AMYLASE 1 [facility] INC INC BLOOD 69018 [facility] COUNT 1 [facility] COMPLETE INC INC AUTO&AUTO DIFRNTL WBC SUSCEPTIB 57265 [facility] LTY STDY 1 [facility] ANTIMICRB INC INC IAL MICRO/AGA R DILUTJ URNLS DIP 70382 [facility] 1 [facility] STICK/TAB INC INC [place] [address] [facility] LIPASE 1 [facility] INC INC THERAPEUT 31877 BRANDON BR[facility] IC 1 [facility] PROPHYLAC INC INC TIC/DX INJECTION SUBQ/IM CULTURE 96087 BRANDON BRANDON BACTERIAL 1 [facility] INC INC QUANTTATI VE COLONY COUNT URINE CULTURE 08858 [facility] BCT 1 [facility] ISOL&PRSM INC INC PTV ID ISOLATE EA URINE CHIROPRAC 31656 KAVYA HOFF TIC 1 JANET JANET MANIPULAT ANNABELLA [place] SPINAL 1-2 REGIONS COLLECTIO 84568 [facility] N VENOUS 1 [facility] BLOOD INC INC VENIPUNCT URE COMPREHEN 88174 [facility] SIVE 1 [facility] [address] BR[facility] THYROID 1 [facility] [place] [address] [facility] HOMER ABDOMEN & 1 MEDICAL AYLA PELVIS IMAGING W/CONTRAS ASS T MATERIAL E-STIM G0283 [facility] T[facility] 1/> AREAS 1 [facility] OTH THAN INC INC WND CARE PART TX PLAN LIPID 12639 [facility] PANEL 1 [facility] INC INC HEMOGLOBI 09713 [facility] N 1 [facility] GLYCOSYLA INC INC ML A1C THERAPEUT 96543 [facility] IC PX 1/> 1 [facility] AREAS INC INC EACH 15 MIN EXERCISES 3D 02755 [facility] RENDERING 1 MEDICAL AYLA IMAGING W/INTERP& ASS POSTPROC DIFF WORK STATION APPL 65221 [facility] MODALITY 1 [facility] 1/> AREAS INC INC ULTRASOUN D EA 15 MIN COMPUTER- 08103 [facility] AIDED 1 [facility] DETECTION INC INC SCREENING MAMMOGRAP HY SCREENING G0202 [facility] 1 [facility] MAMMOGRAP INC INC HY DURGA INCL CAD WHEN PERFORMD E-STIM G0283 [facility] R[facility] 1/> AREAS 1 [facility] OTH THAN INC INC WND CARE PART TX PLAN THERAPEUT 87734 BR[facility] T[facility] IC PX 1/> 1 [facility] AREAS INC INC EACH 15 MIN EXERCISES APPL 49718 BRANDONKATI TAYLOR MODALITY 1 [facility] 1/> AREAS INC INC ULTRASOUN D EA 15 MIN APPL 66854 [facility] MODALITY 1 [facility] 1/> AREAS INC INC ULTRASOUN D EA 15 MIN THERAPEUT 75856 BRAND[facility] BRANDON IC PX 1/> 1 [facility] INC EACH 15 MIN EXERCISES CHIROPRAC 07935 KAVYA HOFF TIC 1 JANET JANET MANIPULAT ANNABELLA [place] SPINAL 1-2 REGIONS E-STIM G0283 [facility] RABAG[facility] 1/> AREAS 1 [facility] OTH THAN INC INC WND CARE PART TX PLAN E-STIM G0283 [facility] 1/> AREAS 1 [facility] OTH THAN INC INC WND CARE PART TX PLAN THERAPEUT 09513 [facility] IC PX 1/> 1 [facility] AREAS INC INC EACH 15 MIN EXERCISES PHYSICAL 08399 [facility] THERAPY 1 [facility] EVALUATIO INC INC N APPL 81000 [facility] BRANDON MODALITY 1 [facility] 1/> AREAS INC INC ULTRASOUN D EA 15 MIN CHIROPRAC 91597 KAVYA HOFF TIC 1 JANET JANET MANIPULAT ANNABELLA [place] SPINAL 1-2 REGIONS CONTINUOU E0601 CRISTIN AMARAL S 1 HOME HOME POSITIVE MEDICAL MEDICAL AIRWAY EQUIPME EQUIPME PRESSURE DEVICE RADEX 60806 [place] [facility] UPPER GI 1 [facility] W/WO IMAGING GLUCAGON/ ASS DELAY IMAGES W/KUB CHIROPRAC 29573 KAVYA HOFF TIC 1 JANET JANET MANIPULAT ANNABELLA [place] SPINAL 1-2 REGIONS CHIROPRAC 57375 [place] T[place] 1 JANET JANET MANIPULAT [...] SUPPLIES SUPPLIES HIGH CALIBRATO R SOLUTION/ [facility]IPS [facility] 88428 [place] T[place] 1 JANET JANET MANIPULAT ANNABELLA [place] SPINAL 1-2 [facility] 26186 [place] T[place] 1 JANET JANET MANIPULAT ANNABE[place]A [place] SPINAL 1-[address] [facility] 60481 [place] T[place] 1 JANET JANET MANIPULAT ANNABELLA TX SPINAL 1-[address] [facility] 44834 [place] T[place] 1 JANET JANET MANIPULAT ANNABELLA [place] SPINAL 1-[address] [facility] 11224 [place] T[place] 1 JANET JANET MANIPULAT [place] SPINAL 1-2 REGIONS FILTER A7038 CRISTIN AMARAL DISPBL 1 HOME HOME USED MEDICAL MEDICAL W/POS EQUIPME EQUIPME ARWAY PRESSURE DEVICE FULL FACE A7030 CRISTIN AMARAL MASK 1 HOME HOME USED MEDICAL MEDICAL W/POS EQUIPME EQUIPME ARWAY PRESS DEVICE EA CONTINUOU E0601 CRISTIN AMARAL S 1 HOME HOME POSITIVE MEDICAL MEDICAL AIRWAY EQUIPME EQUIPME PRESSURE DEVICE TUBING A7037 CRISTIN AMARAL USED WITH 1 HOME HOME POSITIVE MEDICAL MEDICAL AIRWAY EQUIPME EQUIPME PRESSURE DEVICE HEADGEAR A7035 CRISTIN AMARAL USED 1 HOME HOME W/POSITIV MEDICAL MEDICAL E AIRWAY EQUIPME EQUIPME PRESSURE DEVICE HUMDIFIR E0562 CRISTIN AMARAL HEATED 1 HOME HOME USED MEDICAL MEDICAL W/POS EQUIPME EQUIPME ARWAY PRESSURE DEVICE CHIROPRA 52687 [place] TIC 1 JANET JANET MANIPULAT [place]NABELLA [place] SPINAL 1-2 REGIONS CHIROPRA 72607 [place] TIC 1 JANET JANET MANIPULAT [place]NABELLA [place] SPINAL 1-2 REGIONS POLYSOM 11954 [facility] 6/>YRS 1 DEIDRA DEIDRA SLEEP W/CPAP 4/> ADDL JENNIE ATTND POLYSOM 37286 [facility] 6/>YRS 1 DEIDRA DEIDRA SLEEP 4/> ADDL JENNIE ATTND POLYSOM 37301 BR[facility] RABAGOON 6/>YRS 1 [facility] SLEEP 4/> INC INC ADDL JENNIE ATTND 3D 06761 [facility]ONEL RENDERING 1 MEDICAL AYLA W/INTERP IMAGING & ASS POSTPROCE SS SUPERVISI ON MRI 89558 [facility]ONEL SPINAL 1 MEDICAL A[facility]LA CANAL IMAGING LUMBAR ASS W/O CONTRAST MATERIAL COLLECTIO 57003 [facility] N VENOUS 1 [facility] BLOOD INC INC VENIPUNCT URE COMPREHEN 85262 [facility] SIVE 1 [facility] [address] [facility] THYROID 1 [facility] STIMULATI INC INC NG HORMONE TSH BLOOD 64647 [facility] COUNT 1 [facility] COMPLETE INC INC AUTO&AUTO DIFRNTL WBC CREATINE 32424 [facility] KINASE 1 [facility] TOTAL INC INC SEDIMENTA 35848 [facility] TION RATE 1 [facility] RBC INC INC NON-AUTOM ATED THER 82698 [facility] PROPH/DX 1 [facility] NJX IV INC INC PUSH SINGLE/1S T SBST/DRUG RADIOLOGI 81233 [place] [facility] C EXAM 1 [facility] CHEST 2 IMAGING VIEWS ASS FRONTAL&L ATERAL URNLS DIP 22849 [facility] 1 [facility] STICK/TAB INC INC LET REAGENT AUTO MICROSCOP Y THERAPEUT 26226 [facility] T[facility] IC 1 [facility] INJECTION INC INC IV PUSH EACH NEW DRUG AMBULANCE A0429 [facility] SERVICE 1 AMBULANCE AMBULANCE BLS SERVICE SERVICE EMERGENCY TRANSPORT GROUND A0425 [facility] MILEAGE 1 AMBULANCE AMBULANCE PER SERVICE SERVICE STATUTE MILE RADEX 94136 [place] [facility] SPINE 1 MEDICAL AYLA LUMBOSACR IMAGING AL 07/28 ASS VIEWS CULTURE 69654 [facility] BACTERIAL 1 [facility] [facility] INC INC QUANTTATI VE COLONY COUNT URINE COMPREHEN 20058 [facility] 1 [facility] METABOLIC INC INC PANEL BLOOD 83542 [facility] COUNT 1 [facility] COMPLETE INC INC AUTO&AUTO DIFRNTL WBC HEMOGLOBI 52452 [facility] N 1 [facility] GLYCOSYLA INC INC ML A1C CYANOCOBA 08883 BR[facility] TAYLOR PRATEEK 1 [facility] VITAMIN INC INC B-12 COLLECTIO 58399 BRANDON T[facility] N VENOUS 1 [facility] BLOOD INC INC VENIPUNCT URE AMB A0427 [facility] SERVICE 1 AMBULANCE AMBULANCE ALS SERVICE SERVICE EMERGENCY TRANSPORT LEVEL 1 RADIOLOGI 54258 [place] [facility] C 1 MEDICAL AYLA EXAMINATI IMAGING ON CHEST ASS SINGLE VIEW FRONTAL GROUND A0425 [facility]EA 1 AMBULANCE AMBULANCE PER SERVICE SERVICE STATUTE MILE ECG 89214 BRANDON FAJARDO ROUTINE 1 [facility] W/LEAST P 12 LDS I&R ONLY MYOCARDIA 45679 [facility] Yoon SPECT 1 [facility] MULTIPLE INC INC STUDIES TECHNETIU A9502 BRANDON Wayne TC-99M 1 [facility] TETROFOSM INC INC IN DX PER STUDY DOSE CV STRS 31551 [facility] TST 1 [facility] XERS&/OR INC INC RX CONT ECG TRCG ONLY 3D 58088 [facility] RENDERING 1 [facility] W/INTERP INC INC & [place]PERVIS[place] ON 3D 85842 [place] [facility] RENDERING 1 MEDICAL AYLA IMAGING W/INTERP& ASS POSTPROC DIFF WORK STATION CT SOFT 64092 [facility] TISSUE 1 MEDICAL MEDICAL NECK IMAGING IMAGING W/[place] [address] [facility] HEAD/BRAI 1 MEDICAL AYLA [place] [address] BRANDON TAYLOR HEAD/BRAI 1 [facility] N W/O & INC INC W/CONTRAS T MATERIAL COLLECTIO 84035 [facility] N VENOUS 1 [facility] [place]LOOD [place] [address] BR[facility] T[facility] UREA 1 [facility] NITROGEN INC INC QUANTITAT ANNABELLA CREATININ 60485 BR[facility] TAYLOR E BLOOD 1 [place] [address] [facility] INFUSION 1 [facility] THERAPY INC INC PROPHYLAX IS/DX EA HOUR ANES 57335 [facility] LOWER 1 ANESTH INTESTINE OF THE BLUE ENDOSCOPY DISTAL DUODENUM COLONOSCO 00846 C SOPHIE LYONS PY FLX DX 1 ELOY GAMBOA W/FLORENCIO [place] [address] BR[facility] T[facility] INFUSION 1 [facility] THERAPY/P INC INC ROPHYLAXI S /DX 1ST TO 1 HR GLUC BLD 44122 BR[facility] TAYLOR GLUC MNTR 1 [facility] DEV INC INC CLEARED FDA SPEC HOME USE BLD GLU A4253 M E D M E D TEST/REAG 1 SUPPLIES SUPPLIES T STRIPS HOME BLD GLU MON-50 LANCETS A4259 M E D M E D PER BOX 1 SUPPLIES SUPPLIES OF 100 NORMAL A4256 M E D M E D LOW AND 1 SUPPLIES SUPPLIES HIGH CALIBRATO R SOLUTION/ [facility] A4258 M E D M E D WERED 1 SUPPLIES SUPPLIES DEVICE FOR LANCET EACH REPL DEYSI A4233 M E D M E D ALKALINE 1 SUPPLIES SUPPLIES NOT J CELL OSCAR BG MON OWND PT RADIOLOGI 34996 [facility] EXAM 1 MEDICAL AYLA CHEST 2 IMAGING VIEWS ASS FRONTAL&L ATERAL OPHTH 02139 [facility] MEDICAL 1 VISION XM&EVAL COMPRHNSV ESTAB PT 1/> BLOOD 35556 BRANDON BRANDON COUNT 1 [facility] COMPLETE INC INC AUTO&AUTO DIFRNTL WBC COLLECTIO 36014 [facility] T[facility] N VENOUS 1 [facility] BLOOD INC INC VENIPUNCT URE BASIC 37127 BR[facility] TAYLOR METABOLIC 1 [facility] PANEL INC INC CALCIUM TOTAL RADIOLOGI 71480 [place] [facility] C EXAM 1 MEDICAL AYLA CHEST 2 IMAGING VIEWS ASS FRONTAL&L ATERAL LANCETS A4259 [facility] CCS PER BOX 0 MEDICAL MEDICAL OF 100 BLD GLU A4253 [facility]CS CCS TEST/REAG 0 MEDICAL MEDICAL T STRIPS HOME BLD GLU MON-50 NORMAL A4256 [facility]CS CCS LOW AND 0 MEDICAL MEDICAL HIGH CALIBRATO R SOLUTION/ CHIPS REPL DEYSI A4233 [facility] ALKALINE 0 MEDICAL MEDICAL NOT J CELL OSCAR BG MON OWND PT SPRING-PO A4258 CCS CCS WERED 0 MEDICAL PEDIATRIC RADIOLOGIST FOR LANCET EACH BLD GLU E2100 SECURE SECURE MONITOR 0 CARE CARE W/[facility] MEDICAL ML VOICE SYNTHESIZ ER SPRING-PO A4258 SECURE SECURE WERED 0 CARE CARE DEVICE MEDICAL MEDICAL FOR LANCET EACH BLD GLU A4253 SECURE SECURE TEST/REAG 0 CARE CARE T STRIPS MEDICAL MEDICAL HOME BLD GLU MON-50 LANCETS A4259 SECURE SECURE PER BOX 0 CARE CARE OF 100 MEDICAL MEDICAL NORMAL A4256 SECURE SECURE LOW AND 0 CARE CARE HIGH MEDICAL MEDICAL CALIBRATO R SOLUTION/ CHIPS RADIOLOGI 49517 [place] [facility], C 0 MEDICAL FREDO EXAMINATI IMAGING ON KNEE 3 ASSOCIATE VIEWS S BASIC 37329 BR[facility] T[facility] METABOLIC 0 [facility] PANEL INC INC CALCIUM TOTAL CULTURE 01746 [facility] BACTERIAL 0 [facility] INC INC QUANTTATI VE COLONY COUNT URINE RADIOLOGI 06693 BR[facility] C 0 [facility] EXAMINATI INC INC ON CHEST SINGLE VIEW FRONTAL HEMOGLOBI 98799 BR[facility]ON RABAGOON N 0 [facility] GLYCOSYLA INC INC ML A1C BLOOD 57470 BR[facility]ON RABAGOON COUNT 0 [facility] COMPLETE INC INC AUTO&AUTO DIFRNTL WBC URNLS DIP 54579 [facility] 0 [facility] STICK/TAB INC [place] [address] [facility] T[facility] INFUSION 0 [facility] HYDRATION INC INC INITIAL 31 MIN-1 HOUR O2 CONC 1 E1390 [place]N RIVAS [place] 9 HOME HOME 85%/>02 MEDICAL MEDICAL CONC AT EQUIPMENT EQUIPMENT PRSC FLW RATE PRTBLE E0431 EVELYN RIVAS GASEOUS 9 HOME HOME O2 SYS MEDICAL MEDICAL RENT; EQUIPMENT EQUIPMENT FLWMTR HUMIDFR&M ASK IADNA 00333 PATHOLOGY PATHOLOGY PAPILLOMA 9 & & VIRUS CYTOLOGY CYTOLOGY HUMAN LAB LAB AMPLIFIED PROBE TQ SCR G0145 PATHOLOGY PATHOLOGY CYTOPATH 9 & & CERV/VAG CYTOLOGY CYTOLOGY SCR LAB LAB AUTO&MNL RSCR PHYS SCR G0124 PATHOLOGY PATHOLOGY CYTOPATH 9 & & CERV/VAG CYTOLOGY CYTOLOGY THIN LAY LAB LAB PREP INTEPR PHYS ALBUTEROL J7620 [facility]5 9 PHARMACY PHARMACY MG & 3938 3938 IPRATROPI UM BROM TO 0.5 MG PHARM G[facility]3 [facility] DISPEN 9 PHARMACY PHARMACY FEE INHAL 3938 3938 RX; INITIAL 30-DAY SUPPLY PRESSURIZ 46529 [facility] BESJEWEL, ED/NONPRE 9 [facility] SSURIZED INTERNAL INHALATIO MED N TREATMENT RADIOLOGI 25597 José CACERES EXAM 9 MEDICAL FREDO CHEST 2 IMAGING VIEWS ASSOCIATE FRONTAL&L S ATERAL O2 CONC 1 E1390 [place] RIVAS [place] 9 HOME HOME 85%/>02 MEDICAL MEDICAL CONC AT EQUIPMENT EQUIPMENT PRSC FLW RATE PRTBLE E0431 EVELYN RIVAS GASEOUS 9 HOME HOME O2 SYS MEDICAL MEDICAL RENT; EQUIPMENT EQUIPMENT FLWMTR HUMIDFR&M ASK PRESSURIZ 43640 [facility] BESJEWEL, ED/NONPRE 9 [facility] A SSURIZED INTERNAL INHALATIO MED N TREATMENT URNLS DIP 50613 [facility] 9 [facility] STICK/TAB INC INC LET REAGENT AUTO MICROSCOP Y IAADI 71587 [facility] T[facility] INFLUENZA 9 [facility] B VIRUS INC INC IAADI 78675 [facility] INFFLUENZ 9 [facility] A A VIRUS INC INC CULTURE 62926 [facility] BACTERIAL 9 [facility] INC INC QUANTTATI VE COLONY COUNT URINE APPL 94327 [place] ESCOBAR, MODALITY 9 FAMILY LILIYA C 1/> AREAS CHIROPRAC TRACTION TIC MECHANICA L APPL 33205 [place] ESCOBAR, MODALITY 9 FAMILY LILIYA C 1/> AREAS CHIROPRAC ELEC TIC STIMJ EA 15 MIN THERAPEUT 02906 [place] ESCOBAR, IC PX 1/> 9 FAMILY LILIYA C AREAS CHIROPRAC EACH 15 TIC MIN EXERCISES CHIROPRAC 17122 [place] ESCOBAR, TIC 9 FAMILY LILIYA C MANIPULAT CHIROPRAC ANNABELLA TX TIC SPINAL 3-4 REGIONS THERAPEUT 12301 [place] ESCOBAR, IC PX 1/> 9 FAMILY LILIYA C AREAS CHIROPRAC EACH 15 TIC MIN EXERCISES APPL 36044 [place] ESCOBAR, MODALITY 9 FAMILY LILIYA C 1/> AREAS CHIROPRAC ELEC TIC STIMJ EA 15 MIN APPL 88311 [place] ESCOBAR, MODALITY 9 FAMILY ILLIYA C 1/> AREAS CHIROPRAC TRACTION TIC MECHANICA L CHIROPRAC 89915 [place] ESCOBAR, TIC 9 FAMILY LILIYA C MANIPULAT CHIROPRAC ANNABELLA TX TIC SPINAL 3-4 REGIONS CHIROPRAC 32730 [place] ESCOBAR, TIC 9 FAMILY LILIYA C MANIPULAT CHIROPRAC ANNABELLA TX TIC SPINAL 3-4 REGIONS THERAPEUT 90843 [place] ESCOBAR, IC PX 1/> 9 FAMILY LILIYA C AREAS CHIROPRAC EACH 15 TIC MIN EXERCISES APPL 93196 [place] ESCOBAR, MODALITY 9 FAMILY LILIYA C 1/> AREAS CHIROPRAC TRACTION TIC MECHANICA L APPL 18597 [place] ESCOBAR, MODALITY 9 FAMILY LILIYA C 1/> AREAS CHIROPRAC ELEC TIC STIMJ EA 15 MIN APPL 11684 EVELYN ESCOBAR, MODALITY 9 FAMILY LILIYA C 1/> AREAS CHIROPRAC ELEC TIC STIMJ EA 15 MIN CHIROPRAC 22435 EVELYN ESCOBAR, TIC 9 FAMILY LILIYA C MANIPULAT CHIROPRAC ANNABELLA TX TIC SPINAL 3-4 REGIONS APPL 71443 EVELYN ESCOBAR, MODALITY 9 FAMILY LILIYA C 1/> AREAS CHIROPRAC TRACTION TIC MECHANICA L SELF-CARE 73834 EVELYN ESCOBAR, /HOME 9 FAMILY LILIYA C MGMT CHIROPRAC TRAINING TIC EACH 15 MINUTES THERAPEUT 47969 EVELYN ESCOBAR, IC PX 1/> 9 FAMILY LILIYA C AREAS CHIROPRAC EACH 15 TIC MIN EXERCISES INJ J0702 LEANA DUEÑAS BETAMETHA 9 CHELSY W CHELSY [place] SONE ACETATE & PHOSPHATE 3 MG INITIAL 01416 [facility] 9 Y OF CHERYL CARE/DAY [facility] 70 INTERNAL MINUTES MEDICINE RADIOLOGI 93521 BUNNY SAENZ, C EXAM 9 MEDICAL FORTINO G CHEST 2 SERV VIEWS FOUNDATIO FRONTAL&L ATERAL ECG 43823 BUNNY JOHNSON, ROUTINE 9 MEDICAL SIMBA C ECG SERV W/LEAST FOUNDATIO 12 LDS I&R ONLY PRTBLE E0431 EVELYN RIVAS GASEOUS 9 HOME HOME O2 SYS MEDICAL MEDICAL RENT; EQUIPMENT EQUIPMENT FLWMTR HUMIDFR&M ASK O2 CONC 1 E1390 [place]AS [place] 9 HOME HOME 85%/>02 MEDICAL MEDICAL CONC AT EQUIPMENT EQUIPMENT PRSC FLW RATE OBSERVATI 56668 [place] BESSON, ON CARE 9 [place] A DISCHARGE INTERNAL MED MANAGEMEN T INITIAL 99515 [facility] BESSON, OBSERVATI 9 [place] ON INTERNAL CARE/DAY MED 30 MINUTES COMPREHEN 05807 [facility] SIVE 9 [facility] METABOLIC INC INC PANEL BLOOD 22838 [facility] COUNT 9 [facility] COMPLETE INC INC AUTO&AUTO DIFRNTL WBC URNLS DIP 98099 [facility] 9 [facility] STICK/TAB INC INC LET REAGENT AUTO MICROSCOP Y CULTURE 40460 [facility] BACTERIAL 9 [facility] INC INC QUANTTATI VE COLONY COUNT URINE SBSQ 77671 [facility] 9 CARE/DAY 15 MINUTES ECG 43888 CARDIOLOG [place], ROUTINE 9 Y KHURRAM A ECG ASSOCIATE W/LEAST S OF 12 [facility] I&R ONLY SBSQ 27220 [facility] 9 CARE/DAY 15 MINUTES PRTBLE E0431 EVELYN RIVAS GASEOUS 9 HOME HOME O2 SYS MEDICAL MEDICAL RENT; EQUIPMENT EQUIPMENT FLWMTR HUMIDFR&M ASK O2 CONC 1 E1390 [place]N RIVAS [place] 9 HOME HOME 85%/>02 MEDICAL MEDICAL CONC AT EQUIPMENT EQUIPMENT PRSC FLW RATE SBSQ 73359 [facility] 9 CARE/DAY 15 MINUTES SBSQ 38745 [facility] 9 CARE/DAY 15 MINUTES SBSQ 41450 [facility] 9 CARE/DAY 15 MINUTES ECG 88542 CARDIOLOG RED CLOUD ROUTINE 9 Y , D L ECG ASSOCIATE W/LEAST S OF 12 [facility] I&R ONLY INITIAL 67830 [facility] 9 CARE/DAY 30 MINUTES GROUND A0425 [facility] MILEAGE 9 AMBULANCE AMBULANCE PER SERVICE SERVICE STATUTE MILE AMB A0422 [facility] OXYGEN&O2 9 AMBULANCE AMBULANCE SUPPLIES SERVICE SERVICE LIFE SUSTAININ G SITUATION RADIOLOGI 77959 José CACERES 9 MEDICAL FREDO EXAMINATI IMAGING ON CHEST ASSOCIATE SINGLE S VIEW FRONTAL AMBULANCE A0429 [facility] SERVICE 9 AMBULANCE AMBULANCE BLS SERVICE SERVICE EMERGENCY TRANSPORT KETONE 29265 BR[facility]ON TAY[facility]OR BODIES 9 [facility] SERUM INC INC QUALITATI VE THERAPEUT 21143 [facility] T[facility] IC 9 [facility] PROPHYLAC INC INC TIC/DX INJECTION SUBQ/IM BASIC 96340 BR[facility] TAYLOR METABOLIC 9 [facility] [address] BR[facility] TAY[facility] INFUSION 9 [facility] THERAPY/P INC INC ROPHYLAXI S /DX 1ST TO 1 HR GLUC BLD 23482 BR[facility]ON TAYLOR GLUC MNTR 9 [facility] DEV INC INC CLEARED FDA SPEC HOME USE BLOOD 69642 [facility] T[facility] COUNT 9 [facility] COMPLETE INC INC AUTO&AUTO DIFRNTL WBC O2 CONC 1 E1390 [place]N RIVAS [place] 9 HOME HOME 85%/>02 MEDICAL MEDICAL CONC AT EQUIPMENT EQUIPMENT PRSC FLW RATE PRTBLE E0431 EVELYN RIVAS GASEOUS 9 HOME HOME O2 SYS MEDICAL MEDICAL RENT; EQUIPMENT EQUIPMENT FLWMTR HUMIDFR&M ASK GROUND A0425 JULEE LADD MILEAGE 9 AMBULANCE AMBULANCE PER SERVICE SERVICE STATUTE MILE INITIAL 51977 CHUY DIAZ 9 [facility] ON INTERNAL CARE/DAY MED 30 MINUTES AMB A0427 JULEE LADD SERVICE 9 AMBULANCE AMBULANCE ALS SERVICE SERVICE EMERGENCY TRANSPORT LEVEL 1 AMB A0422 [facility] JULEE OXYGEN&O2 9 AMBULANCE AMBULANCE SUPPLIES SERVICE SERVICE LIFE SUSTAININ [facility] G0378 BR[facility]ON TAYLOR OBSERVATI 9 [facility] [place] [place] [address] BR[facility] TAYL[facility] INFUSION 9 [facility] THERAPY/P INC INC ROPHYLAXI S /DX 1ST TO 1 HR GLUC BLD 77849 BR[facility] TAY[facility]OR GLUC MNTR 9 [facility] DEV INC [place] [address] BR[facility] T[facility] TROPONIN 9 [facility] QUANTITAT INC INC ANNABELLA COMPREHEN 03688 BR[facility] SIVE 9 [facility] METABOLIC INC INC PANEL CREATINE 21843 BR[facility] TAY[facility] KINASE MB 9 [facility] FRACTION INC INC ONLY CREATINE 44071 [facility] KINASE 9 [facility] TOTAL INC INC ECG 21597 [facility] ROUTINE 9 [facility] ECG INC INC W/LEAST 12 LDS TRCG ONLY W/O I&R BASIC 15175 BR[facility] TAY[facility] METABOLIC 9 [facility] PANEL INC INC CALCIUM TOTAL RADIOLOGI 09997 [facility] C 9 [facility] EXAMINATI INC INC ON CHEST SINGLE VIEW FRONTAL BLOOD 68343 BRANDON TAYLOR COUNT 9 [facility] COMPLETE INC INC AUTO&AUTO DIFRNTL WBC ECG 98354 BRANDON JUVENTINOLETITIAMIChristiano ROUTINE 9 [facility] W/LEAST PROF SERV 12 LDS I&R ONLY 3D 74163 BRANDON TAYLOR RENDERING 9 [facility] INC INC W/INTERP& POSTPROC DIFF WORK STATION RADEX 39429 BRANDON TAYLOR ESOPHAGUS 9 [facility] INC INC CT SOFT 76727 BR[facility]ON TAYLOR TISSUE 9 [facility] NECK INC INC W/CONTRAS T MATERIAL LOCM Q9967 BRANDON TAYLOR [phone] 9 [facility] MG/ML INC INC IODINE CONCENTRA TION PER ML CREATININ 81725 BRANDONKATI TAYLOR E BLOOD 9 [facility] INC INC COLLECTIO 83248 BRANDON TAYLOR N VENOUS 9 [facility] BLOOD INC INC VENIPUNCT URE CALCIUM 10014 BRANDON BRANDON TOTAL 9 [facility] [place] [address] BRANDON TAYLOR THYROID 9 [facility] STIMULATI [place] [address] BR[facility] TAYLOR UREA 9 [facility] NITROGEN INC INC QUANTITAT ANNABELLA NORMAL A4256 DIABETES DIABETES LOW AND 9 [facility] CALIBRATO R SOLUTION/ [place] [address] BRANDON TAYLOR THYROXINE 9 [facility] TOTAL INC INC PRTBLE E0431 CYNMIGUEL [place] GASEOUS 9 HOME HOME O2 SYS MEDICAL MEDICAL RENT; EQUIPMENT EQUIPMENT FLWMTR HUMIDFR&M ASK O2 CONC 1 E1390 CYNPAULIENADINE EVELYN DEL PORT 9 HOME HOME 85%/>02 MEDICAL MEDICAL CONC AT EQUIPMENT EQUIPMENT PRSC FLW RATE COLLECTIO 19544 BRANDON BRANDON N VENOUS 9 [facility] BLOOD INC INC VENIPUNCT URE COMPREHEN 96811 [facility] SIVE 9 [facility] METABOLIC INC INC PANEL LIPID 89200 [facility] T[facility] PANEL 9 [facility] INC INC RADEX 86120 BR[facility] TAY[facility] ANKLE 9 [facility] COMPLETE INC INC MINIMUM 3 VIEWS RADIOLOGI 13204 BR[facility] TAY[facility]OR C 9 [facility] EXAMINATI INC INC ON KNEE 3 VIEWS O2 CONC 1 E1390 [place]N RIVAS [place] 9 HOME HOME 85%/>02 MEDICAL MEDICAL CONC AT EQUIPMENT EQUIPMENT PRSC FLW RATE PRTBLE E0431 EVELYN RIVAS GASEOUS 9 HOME HOME O2 SYS MEDICAL MEDICAL RENT; EQUIPMENT EQUIPMENT FLWMTR HUMIDFR&M ASK COLONOSCO 77182 BUNNY LORD PY 9 MEDICAL [place] W/BIOPSY SERV SINGLE/MU FOUNDATIO LTIPLE ANES 43376 [facility] 9 ANESTH [facility] IN[facility] [place]OSCOPY [place] [address] PATHOLOGY PATHOLOGY SURG 9 & & PATHOLOGY CYTOLOGY CYTOLOGY LAB LAB GROSS&[place] [address] BRANDON TAYLOR INFUSION 9 [facility] THERAPY/P INC INC ROPHYLAXI S /DX 1ST TO 1 HR GLUC BLD 71148 BRANDON TAYLOR GLUC MNTR 9 [facility] DEV INC [place] [address] BR[facility] TAY[facility] INFUSION 9 [facility] THERAPY INC INC PROPHYLAX IS/DX EA HOUR ECG 64158 BRANDON CHOWDHURY ROUTINE 9 [facility] W/LEAST PROF SERV 12 L[place] [address] BRANDON TAYLOR TROPONIN 9 [facility] QUANTITAT INC INC ANNABELLA BLOOD 06394 BR[facility] TAYLOR COUNT 9 [facility] COMPLETE INC INC AUTO&AUTO DIFRNTL WBC URNLS DIP 58257 [facility] 9 [facility] STICK/TAB INC INC LET REAGENT AUTO MICROSCOP Y THERAPEUT 63955 BRANDON TYALOR IC 9 [facility] INJECTION INC INC IV PUSH EACH NEW DRUG CREATINE 51601 [facility] KINASE 9 [facility] [place] [address] [facility] T[facility] LIPASE 9 [facility] INC INC THER 59593 BR[facility] TAYL[facility] PROPH/DX 9 [facility] NJX IV INC INC PUSH SINGLE/1S T SBST/DRUG ECG 16656 BRANDON TAYLOR ROUTINE 9 [facility] ECG INC INC W/LEAST 12 LDS TRCG ONLY W/O I&R COMPREHEN 62384 [facility] T[facility] SIVE 9 [facility] [place] [address] [facility] T[facility] AMYLASE 9 [facility] INC INC CREATINE 94348 BR[facility]ON TAYLOR KINASE MB 9 [facility] FRACTION INC INC ONLY INJECTION J2405 [facility]OR 9 [facility] ONDANSETR INC INC ON HCL PER 1 MG AMB A0427 JULEE LADD SERVICE 9 AMBULANCE AMBULANCE ALS SERVICE SERVICE EMERGENCY TRANSPORT LEVEL 1 AMB A0422 JULEE LADD OXYGEN&O2 9 AMBULANCE AMBULANCE SUPPLIES SERVICE SERVICE LIFE SUSTAININ G SITUATION GROUND A0425 JULEE LADD MILEAGE 9 AMBULANCE AMBULANCE PER SERVICE SERVICE STATUTE MILE KETONE 48457 BR[facility]ON TAYLOR BODIES 9 [facility] SERUM INC INC QUALITATI VE COMPREHEN 19682 [facility] SIVE 9 [facility] METABOLIC INC INC PANEL CULTURE 32448 [facility] BACTERIAL 9 [facility] INC INC QUANTTATI VE COLONY COUNT URINE CULTURE 63053 [facility] BCT 9 [facility] ISOL&PRSM [place] [address] [facility] T[facility] INFUSION 9 [facility] THERAPY/P INC INC ROPHYLAXI S /DX 1ST TO 1 HR BLOOD 78065 [facility] T[facility] COUNT 9 [facility] COMPLETE INC INC AUTO&AUTO DIFRNTL WBC SUSCEPTIB 95776 BRAND[facility] TAYLOR LTY STDY 9 [facility] ANTIMICRB INC INC IAL MICRO/AGA R DILUTJ URNLS DIP 53632 BRANDON BRANDON 9 [facility] STICK/TAB INC INC LET REAGENT AUTO MICROSCOP Y THERAPEUT 76627 [facility] T[facility] IC 9 [facility] INJECTION INC INC IV PUSH EACH NEW DRUG PRTBLE E0431 EVELYN RIVAS GASEOUS 9 HOME HOME O2 SYS MEDICAL MEDICAL RENT; EQUIPMENT EQUIPMENT FLWMTR HUMIDFR&M ASK O2 CONC 1 E1390 [place]N RIVAS [place] 9 HOME HOME 85%/>02 MEDICAL MEDICAL CONC AT EQUIPMENT EQUIPMENT PRSC FLW RATE THERAPEUT 36469 [facility] T[facility] IC 9 [facility] PROPHYLAC INC INC TIC/DX INJECTION SUBQ/IM GLUC BLD 35498 BRANDON TAYLOR GLUC MNTR 9 [facility] DEV INC INC CLEARED FDA SPEC HOME USE LANCETS A4259 DIABETES DIABETES PER BOX 9 [facility] BLD GLU A4253 DIABETES DIABETES TEST/REAG 9 [facility] C[facility] T STRIPS [facility] HOME BLD GLU MON PRTBLE E0431 EVELYN RIVAS GASEOUS 9 HOME HOME O2 SYS MEDICAL MEDICAL RENT; EQUIPMENT EQUIPMENT FLWMTR HUMIDFR&M ASK O2 CONC 1 E1390 EVELYN RIVAS [place] 9 HOME HOME 85%/>02 MEDICAL MEDICAL CONC AT EQUIPMENT EQUIPMENT PRSC FLW RATE O2 CONC 1 E1390 EVELYN RIVAS [place] 9 HOME HOME 85%/>02 MEDICAL MEDICAL CONC AT EQUIPMENT EQUIPMENT PRSC FLW RATE LANCETS A4259 DIABETES DIABETES PER BOX 9 [facility] PRTBLE E0431 EVELYN RIVAS GASEOUS 9 HOME HOME O2 SYS MEDICAL MEDICAL RENT; EQUIPMENT EQUIPMENT FLWMTR HUMIDFR&M ASK BLD GLU A4253 DIABETES DIABETES TEST/REAG 9 [facility] T [facility] HOME BLD GLU MON-50 NORMAL A4256 DIABETES DIABETES LOW AND 9 C[facility] CARE [facility]UB HIGH [facility] CALIBRATO R SOLUTION/ CHIPS PRTBLE E0431 EVELYN RIVAS GASEOUS 8 HOME HOME O2 SYS MEDICAL MEDICAL RENT; EQUIPMENT EQUIPMENT FLWMTR HUMIDFR&M ASK O2 CONC 1 E1390 EVELYN RIVAS [place] 8 HOME HOME 85%/>02 MEDICAL MEDICAL CONC AT EQUIPMENT EQUIPMENT PRSC FLW RATE BLD GLU A4253 DIABETES DIABETES TEST/REAG 8 [facility] HOME BLD GLU MON-50 LANCETS A4259 DIABETES DIABETES PER BOX 8 [facility] GASTRIC [address] [place] [facility] 8 MEDICAL FREDO IMAGING IMAGING STUDY ASSOCIATE S PRTBLE E0431 EVELYN RIVAS GASEOUS 8 HOME [...] [facility] HOME BLD GLU MON-50 GLUC BLD 24128 [facility] GLUC MNTR 8 [facility] DEV INC INC CLEARED FDA SPEC HOME USE BLOOD 31662 [facility] COUNT 8 [facility] COMPLETE INC INC AUTO&AUTO DIFRNTL WBC IV NFUS 10766 [facility] THER 8 [facility] PROPH/DX INC INC EA HR URNLS DIP 07514 [facility] 8 [facility] STICK/TAB INC INC [place]AGENT [place] N[place] 11985 [facility] THER 8 [facility] PROPH/DX INC INC 1ST >1 HR BASIC 27377 [facility] METABOLIC 8 [facility] PANEL INC INC CALCIUM TOTAL PRTBLE E0431 EVELYN RIVAS GASEOUS 8 HOME HOME O2 SYS MEDICAL MEDICAL RENT; EQUIPMENT EQUIPMENT FLWMTR HUMIDFR&M ASK O2 CONC 1 E1390 EVELYN GUZMAN PORT 8 HOME HOME 85%/>02 MEDICAL MEDICAL CONC AT EQUIPMENT EQUIPMENT PRSC FLW RATE 3D 60021 LEONA MÉNDEZ, RENDERING 8 MEDICAL RACHEL P W/INTERP IMAGING & [place]OC[place] [address] [facility] HEAD/BRAI 8 [facility] N W/O INC INC CONTRAST MATERIAL CUL 66955 [facility] PRSMPTV 8 [facility] PTHGNC INC INC ORGANISMS SCR DNS CHART SPECIAL 81108 PATHOLOGY PATHOLOGY STAIN 8 & & GROUP 1 CYTOLOGY CYTOLOGY MICROORGA LAB LAB [facility] [place] I&[place] [address] PATHOLOGY PATHOLOGY SURG 8 & & PATHOLOGY CYTOLOGY CYTOLOGY LAB LAB GROSS&[place] [address] [facility] THER 8 [facility] PROPH/DX INC INC 1ST >1 HR ANES 10030 [facility] UPPER GI 8 ANESTH ERLIN L ENDOSCOPY OF THE PROXIMAL [place] TO DUODENUM GLUC BLD 11677 [facility] GLUC MNTR 8 [facility] DEV INC INC CLEARED FDA SPEC HOME USE EGD 75652 [facility] TRANSORAL 8 [facility] BIOPSY INC INC SINGLE/MU LTIPLE ESOPHAGOG 4516 [facility] ASTRODUOD 8 [facility] ENOSCOPY INC INC WITH CLOSED BIOPSY LANCETS A4259 DIABETES DIABETES PER BOX 8 [facility] 100 [facility] BLD GLU A4253 DIABETES DIABETES TEST/REAG 8 [facility] CARE CL[facility] T [facility] HOME BLD GLU MON-50 NORMAL A4256 DIABETES DIABETES LOW AND 8 CARE CL[facility] CARE CLUB HIGH [facility] CALIBRATO R SOLUTION/ CHIPS PRTBLE E0431 CYNMIGUEL RIVAS GASEOUS 8 HOME HOME O2 SYS MEDICAL MEDICAL RENT; EQUIPMENT EQUIPMENT FLWMTR HUMIDFR&M ASK O2 CONC 1 E1390 EVELYN RIVAS [place] 8 HOME HOME 85%/>02 MEDICAL MEDICAL CONC AT EQUIPMENT EQUIPMENT [facility] [place] [address] [facility] LIPASE 8 [facility] INC INC HEPATITIS 06462 [facility] B SURF 8 [facility] ANTIBODY INC INC HBSAB HEPATITIS 36359 [facility] A 8 [facility] ANTIBODY INC INC HAAB COMPREHEN 36484 [facility] SIVE 8 [facility] METABOLIC INC INC PANEL HEPATITIS 19895 [facility] B CORE 8 [facility] ANTIBODY INC INC HBCAB TOTAL ACUTE 43729 [facility] HEPATITIS 8 [facility] [place] [address] [facility] AMYLASE 8 [facility] INC INC COMPREHEN 15283 [facility] 8 [facility] METABOLIC INC INC PANEL CULTURE 02553 [facility] BACTERIAL 8 [facility] INC INC QUANTTATI VE COLONY COUNT URINE CULTURE 41293 [facility] BCT 8 [facility] ISOL&PRSM INC INC PTV ID ISOLATE EA URINE RADEX ABD 74976 RITU CACERES 8 MEDICAL FREDO AQT ABD IMAGING W/S/E/D ASSOCIATE VIEWS 1 S VIEW CH SUSCEPTIB 96033 [facility] LTY STDY 8 [facility] ANTIMICRB INC INC IAL MICRO/AGA R DILUTJ BLOOD 80606 [facility] COUNT 8 [facility] COMPLETE INC INC AUTO&AUTO DIFRNTL WBC URNLS DIP 37352 [facility] STICK/TAB INC INC LET REAGENT AUTO MICROSCOP Y PRTBLE E0431 EVELYN RIVAS GASEOUS 8 HOME HOME O2 SYS MEDICAL MEDICAL RENT; EQUIPMENT EQUIPMENT FLWMTR HUMIDFR&M ASK O2 CONC 1 E1390 EVELYN RIVAS [place] 8 HOME HOME 85%/>02 MEDICAL MEDICAL CONC AT EQUIPMENT EQUIPMENT PRSC FLW RATE O2 CONC 1 E1390 EVELYN RIVAS DEL [place] 8 HOME HOME 85%/>02 MEDICAL MEDICAL CONC AT EQUIPMENT EQUIPMENT PRSC FLW RATE PRTBLE E0431 EVELYN RIVAS GASEOUS 8 HOME HOME O2 SYS MEDICAL MEDICAL RENT; EQUIPMENT EQUIPMENT FLWMTR HUMIDFR&M ASK NORMAL A4256 DIABETES DIABETES LOW AND 8 CARE CLUB CARE CLUB HIGH [facility] CALIBRATO R SOLUTION/ CHIPS LANCETS A4259 DIABETES DIABETES PER BOX 8 CARE CLUB CARE CLUB OF [employer] BLD GLU A4253 DIABETES DIABETES TEST/REAG 8 CARE CLUB CARE CLUB T [employer] [facility] HOME BLD GLU MON-50 HOME E0607 DIABETES DIABETES BLOOD 8 CARE CLUB CARE CLUB GLUCOSE [facility] MONITOR SPRING-PO A4258 DIABETES DIABETES WERED 8 CARE CLUB CARE CLUB DEVICE [facility] FOR LANCET EACH O2 CONC 1 E1390 EVELYN RIVAS DEL [place] 8 HOME HOME 85%/>02 MEDICAL MEDICAL CONC AT EQUIPMENT EQUIPMENT PRSC FLW RATE PRTBLE E0431 EVELYN RIVAS GASEOUS 8 HOME HOME O2 SYS MEDICAL MEDICAL RENT; EQUIPMENT EQUIPMENT FLWMTR HUMIDFR&M ASK LIPID 28474 [facility] CENTRAL PANEL 8 [facility]THODOX [facility]OX HOSP HOSP INJECTION 80772 [place] CARDIAC 8 ORTH, CATHJ L CARDIOLOG MARIANA VENTR/L Y ATR CONSULTAN ANGIOGRAP T H I SI&R 48069 CENTRAL CENTRAL F/NJX PX 8 ORIENTAL ORTHODOX ORIENTAL ORTHODOX DURING HOSP HOSP C-CATHJ PULM&/OR SELECT COLLECTIO 88725 CENTRAL CENTRAL N VENOUS 8 [facility] [place] [address] CENTRAL CENTRAL C-CATHJ 8 ORIENTAL ORTHODOX ORIENTAL ORTHODOX F/SLCTV C HOSP HOSP ANGRPH I SI&R 80547 ROBERTS CHAPEL F/NJX PX 8 ORTH, DURING CARDIOLOG MARIANA C-CATHJ Y VENTR&/AT CONSULTAN R ANGRPH T GLUCOSE 71430 CENTRAL CENTRAL BLOOD 8 ORIENTAL ORTHODOX ORIENTAL ORTHODOX REAGENT HOSP HOSP STRIP L HRT 81768 CENTRAL CENTRAL CATHETERI 8 ORIENTAL ORTHODOX ORIENTAL ORTHODOX ZATION HOSP HOSP RETROGRAD E BRACHIAL PERQ ANGIOCARD 8853 CENTRAL CENTRAL IOGRAPHY 8 ORIENTAL ORTHODOX ORIENTAL ORTHODOX OF LEFT HOSP HOSP HEART STRUCTURE S LEFT 3722 CENTRAL CENTRAL HEART 8 ORIENTAL ORTHODOX ORIENTAL ORTHODOX CARDIAC HOSP HOSP CATHETERI ZATION CORONARY 8856 CENTRAL CENTRAL ARTERIOGR 8 ORIENTAL ORTHODOX ORIENTAL ORTHODOX APHY HOSP HOSP USING TWO CATHETERS COLLECTIO 83139 CENTRAL CENTRAL N VENOUS 8 ORIENTAL ORTHODOX ORIENTAL ORTHODOX BLOOD HOSP HOSP VENIPUNCT URE BASIC 52535 CENTRAL CENTRAL METABOLIC 8 ORIENTAL ORTHODOX ORIENTAL ORTHODOX PANEL HOSP HOSP CALCIUM TOTAL ECG 73472 CENTRAL CENTRAL ROUTINE 8 ORIENTAL ORTHODOX ORIENTAL ORTHODOX ECG HOSP HOSP W/LEAST 12 LDS TRCG ONLY W/O I&R RADIOLOGI 10752 CENTRAL ZAMUDIO, C EXAM 8 RADIOLOGY ROB CHEST 2 ASSOC C VIEWS FRONTAL&L ATERAL BLOOD 44698 CENTRAL CENTRAL COUNT 8 ORIENTAL ORTHODOX ORIENTAL ORTHODOX COMPLETE HOSP HOSP AUTOMATED ECG 74236 [place] ROUTINE 8 ORTH, ECG CARDIOLOG MARIANA W/LEAST Y 12 LDS CONSULTAN I&R ONLY T SMALL A7004 [place] VOLUME 8 HOME HOME NONFILTR MEDICAL MEDICAL PNEUMATIC EQUIPMENT EQUIPMENT NEBULIZER DISPBL ADMN SET A7003 [place] SM VOL 8 HOME HOME NONFILTR MEDICAL MEDICAL PNEUMAT EQUIPMENT EQUIPMENT NEBULIZR DISPBL O2 CONC 1 E1390 [place] DEL PORT 8 HOME HOME 85%/>02 MEDICAL MEDICAL CONC AT EQUIPMENT EQUIPMENT PRSC FLW RATE PRTBLE E0431 [place] GASEOUS 8 HOME HOME O2 SYS MEDICAL MEDICAL RENT; EQUIPMENT EQUIPMENT FLWMTR HUMIDFR&M ASK CYTP 19856 [facility] WESLY, CERV/VAG 8 [place] INC MAR P AUTO THIN LAYER PREP MNL SCREEN BASIC 32866 BR[facility]ON TAYLOR METABOLIC 8 [facility] PANEL INC INC CALCIUM TOTAL AMB A0427 [facility] SERVICE 8 AMBULANCE AMBULANCE ALS SERVICE SERVICE EMERGENCY TRANSPORT LEVEL 1 [place] [address] BR[facility]ON TAYLOR TROPONIN 8 [facility] QUANTITAT INC INC ANNABELLA GROUND A0425 [facility] MILEAGE 8 AMBULANCE AMBULANCE PER SERVICE SERVICE STATUTE MILE ECG 88221 BRANDON FAJARDO ROUTINE 8 [facility] W/LEAST PROF SERV 12 LDS I&R ONLY RHYTHM 98281 BRANDON TAYLOR ECG 1-3 8 [facility] MEM HOSP LEADS INC INC TRACING ONLY W/O I&R BLOOD 95383 BRANDON TAYLOR COUNT 8 MEM [facility]OS[facility] COMPLETE INC INC AUTO&AUTO DIFRNTL WBC RADIOLOGI 69945 José CACERES 8 MEDICAL FREDO EXAMINATI IMAGING ON CHEST ASSOCIATE SINGLE S VIEW FRONTAL CREATINE 54942 BR[facility]ON T[facility] KINASE 8 [facility] TOTAL INC INC ECG 91772 BRANDON TAYLOR ROUTINE 8 [facility] HOSP ECG INC INC W/LEAST 12 LDS TRCG ONLY W/O I&R AMB A0422 JULEE LADD OXYGEN&O2 8 AMBULANCE AMBULANCE SUPPLIES SERVICE SERVICE LIFE SUSTAININ G SITUATION CREATINE 69645 BRANDON TAYLOR KINASE MB 8 [facility] HOSP FRACTION INC INC ONLY PRTBLE E0431 CYNMIGUEL SCOTTPAULIENADINE GASEOUS 8 HOME HOME O2 SYS MEDICAL MEDICAL RENT; EQUIPMENT EQUIPMENT FLWMTR HUMIDFR&M ASK O2 CONC 1 E1390 CYNMIGUEL JONANA DEL PORT 8 HOME HOME 85%/>02 MEDICAL MEDICAL CONC AT EQUIPMENT EQUIPMENT PRSC FLW RATE DOPPLER 41448 BR[facility]ON TAYLOR ECHOCARD 8 [facility] HOSP PULSE INC INC WAVE W/SPECTRA L DISPLAY DOP 79590 BR[facility]ON TAYLOR ECHOCARD 8 [facility] HOSP COLOR INC INC FLOW VELOCITY MAPPING ECHO 62405 BRANDON SCOTTY TRANSTHOR 8 [facility], AC R-T 2D [facility] W/WO PROF SERV M-MODE REC COMP RADIOLOGI 75687 José DUKES EXAM 8 MEDICAL RACEHL P CHEST 2 IMAGING VIEWS ASSOCIATE FRONTAL&L S ATERAL INITIAL 72421 [place] SCOTTY OBSERVATI 8 [facility], ON INTERNAL [facility] CARE/DAY MED 30 MINUTES FLUOR 34171 CARIN DEL ROSARIO, NEEDLE/CA 8 ERVIN Nunn TH SPINE/PAR ASPINAL DX/THER [place] NJX [address]3269 CARIN DEL ROSARIO ANES&/STR 8 ERVIN RICARDO NRV CRV/THRC 1 LVL NJX 38758 CARIN DEL ROSARIO ANES&/STR 8 ERVIN Pichardo JLuis Carlos NRV CRV/THRC EA LVL COMPREHEN 55222 [facility] SIVE 8 [facility] [place] [address] BR[facility] TAY[facility] THYROID 8 [facility] STIMULATI INC INC NG HORMONE TSH PROTHROMB 69140 BR[facility]ON TAYL[facility] IN TIME 8 [facility] INC INC 25 38379 BR[facility]ON TAY[facility]OR HYDROXY 8 [facility] INCLUDES INC INC FRACTIONS IF PERFORMED ECG 28788 BR[facility]ON TAYLOR ROUTINE 8 [facility] ECG INC INC W/LEAST 12 LDS TRCG ONLY W/O I&R ECG 89487 BRANDON HEATHERMIChristiano ROUTINE 8 [facility] W/LEAST PROF SERV 12 LDS I&R ONLY THYROID 49894 BR[facility]ON TAYLOR HORM 8 [facility] H[facility] UPTK/THYR INC INC OID HORMONE BINDING RATIO BLOOD 76340 BRANDON TAYLOR COUNT 8 MEM H[facility] COMPLETE INC INC AUTO&AUTO DIFRNTL WBC THROMBOPL 83932 BRANDON TAYLOR ASTIN 8 [facility] MEM HOS[facility] TIME INC INC PARTIAL PLASMA/[place] [address] BRANDON TAYLOR THYROXINE 8 MEM HOS[facility] TOTAL INC INC O2 CONC 1 E1390 EVELYN RIVAS DEL PORT 8 HOME HOME 85%/>02 MEDICAL MEDICAL CONC AT EQUIPMENT EQUIPMENT PRSC FLW RATE PRTBLE E0431 EVELYN RIVAS GASEOUS 8 HOME HOME O2 SYS MEDICAL MEDICAL RENT; EQUIPMENT EQUIPMENT FLWMTR HUMIDFR&M ASK THERAPEUT 04527 KAVYA HOFF, ACTVITY 8 ERVIN Huffman DIRECT PT CONTACT EACH 15 MIN APPLICATI 88370 KAVYA HOFF, ON 8 ERVIN Huffman MODALITY 1/> AREAS HOT/COLD PACKS CHIROPRAC 69227 KAVYA HOFF, TIC 8 ERVIN Huffman MANIPULAT ANNABELLA [place] SPINAL 3-4 REGIONS APPL 17148 KAVYA HOFF, MODALITY 8 ERVIN Huffman 1/> AREAS 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 L APPLICATI 91399 KAVYA HOFF, ON 8 ERVIN Huffman MODALITY 1/> AREAS HOT/COLD PACKS CHIROPRAC 66623 KAVYA HOFF, TIC 8 ERVIN Huffman MANIPULAT ANNABELLA [place] SPINAL 3-4 REGIONS THERAPEUT 85954 KAVYA HOFF, ACTVITY 8 ERVIN Huffman DIRECT PT CONTACT EACH 15 MIN APPL 84716 KAVYA HOFF, MODALITY 8 ERVIN Huffman 1/> AREAS 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 L THERAPEUT 02643 KAVYA HOFF, ACTVITY 8 ERVIN Huffman DIRECT PT CONTACT EACH 15 MIN CHIROPRAC 83286 KAVYA HOFF, TIC 8 ERVIN Huffman MANIPULAT ANNABELLA [place] SPINAL 3-4 REGIONS APPLICATI 58136 KAVYA HOFF, ON 8 ERVIN Huffman MODALITY 1/> AREAS HOT/COLD PACKS APPL 41841 KAVYA HOFF, MODALITY 8 ERVIN Huffman 1/> AREAS 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 L TECHNETIU A9500 BRANDON Wayne TC-99M 8 [facility] SESTAMIBI INC INC DX PER STUDY DOSE CV STRS 96115 BR[facility]ON TAYLOR TST 8 [facility] XERS&/OR INC INC RX CONT ECG TRCG ONLY CV STRS 64380 [facility] SOLIS TST 8 HEART & NEZAR M XERS&/OR VASCULAR RX CONT ASSOC ECG W/O I&R MYOCRD 27916 NIMA GONZALEZUJ STD 8 HEART & NEZAR M WALL VASCULAR MOTION ASSOC QUAL/CASSANDRA STD OBSERVATI 31823 [place] RAEANN ON CARE 8 [facility] DIS[facility]GE INTERNAL MED MANAGEMEN T MYOCRD 22123 BRANDON TAYLOR PRFUJ STD 8 [facility] EJEC FXJ INC INC GLUC BLD 35553 BRANDON TAYLOR GLUC MNTR 8 [facility] DEV INC INC CLEARED FDA SPEC HOME USE MYOCRD 45590 LEONA SOLIS, PRFUJ IMG 8 HEART & NEZAR M TOMOG VASCULAR S[facility] [employer] G0378 BR[facility]ON TAYLOR OBSERVATI 8 [facility] ON INC INC SERVICE PER HOUR CV STRS 07496 LEONA SOLIS, TST 8 HEART & NEZAR M XERS&/OR VASCULAR RX CONT ASSOC ECG I&R ONLY CREATINE 27663 BRANDON TAYLOR KINASE MB 8 MEM [facility] FRACTION INC INC ONLY GLUC BLD 30758 BRANDON TAYLOR GLUC MNTR 8 [facility] DEV INC INC CLEARED FDA SPEC HOME USE ECG 61788 BRANDON CARY, ROUTINE 8 [facility] W/LEAST PROF SERV 12 LDS I&R ONLY RHYTHM 67393 BRANDON TAYLOR ECG 1-3 8 [facility] LEADS INC INC TRACING ONLY W/O I&[place] [address] BRANDON TAYLOR TROPONIN 8 MEM [facility]OS[facility] QUANTITAT INC INC ANNABELLA GROUND A0425 [facility]EA 8 AMBULANCE AMBULANCE PER SERVICE SERVICE STATUTE MILE INITIAL 34591 [place] SCOTTY OBSERVATI 8 [facility], ON INTERNAL KANNAN F CARE/DAY MED 30 MINUTES BLOOD 93315 BRANDON TAYLOR COUNT 8 [facility] COMPLETE INC INC AUTO&AUTO DIFRNTL WBC BASIC 49072 BRANDON TAYLOR METABOLIC 8 [facility] PANEL INC INC CALCIUM TOTAL RADIOLOGI 39449 BRANDON TAYLOR C 8 [facility] EXAMINATI INC INC ON CHEST SINGLE VIEW FRONTAL AMB A0427 [facility] SERVICE 8 AMBULANCE AMBULANCE ALS SERVICE SERVICE EMERGENCY TRANSPORT LEVEL 1 IV NFS [address] BRANDON TAYLOR THER 8 [facility] PROPH/DX INC INC 1ST >1 HR LIPID 68116 BRANDON TAYLOR PANEL 8 [facility]OS[facility] INC INC IV NFUS 34308 BRANDON TAYLOR THER 8 [facility] PROPH/DX INC INC EA HR ECG 03547 BRANDON TAYLOR ROUTINE 8 [facility] ECG INC INC W/LEAST 12 LDS TRCG ONLY W/O I&R CREATINE 21913 BRANDON TAYLOR KINASE 8 [facility] TOTAL INC INC HOSPITAL G0378 BRANDON TAYLOR OBSERVATI 8 [facility] ON INC INC SERVICE PER HOUR O2 CONC 1 E1390 EVELYN RIVAS DEL PORT 8 HOME HOME 85%/>02 MEDICAL MEDICAL CONC AT EQUIPMENT EQUIPMENT PRSC FLW RATE PRTBLE E0431 EVELYN RIVAS GASEOUS 8 HOME HOME O2 SYS MEDICAL MEDICAL RENT; EQUIPMENT EQUIPMENT FLWMTR HUMIDFR&M ASK BLOOD 85378 BRANDON TAYLOR COUNT 8 [facility] COMPLETE INC INC AUTO&AUTO DIFRNTL WBC RHEUMATOI 58181 BRANDON TAYLOR D FACTOR 8 [facility]OS[facility] QUANTITAT INC INC ANNABELLA HEMOGLOBI 60244 BRANDON TAYLOR N 8 [facility] MEM HOS[facility] GLYCOSYLA INC INC ML A1C NDL EMG 2 76849 SAMANTA ENGLAND, XTR W/WO 8 [place] [place] [address] BRANDON TAYLOR THYROXINE 8 [facility] [place] [address] BRANDON TAYLOR THYROID 8 [facility] STIMULATI INC INC NG HORMONE TSH NRV CNDJ 79226 SAMANTA ENGLAND, AMPLT&LAT 8 [employer] WOODS ENCY EA NRV MOTOR W/F-WAVE STD NRV CNDJ 17097 SAMANTA ENGLAND, AMPLITUDE 8 CHUCK WOODS & LATENCY EACH NERVE SENSORY COMPREHEN 41376 BRANDON TAYLOR SIVE 8 [facility] [place] [address] BRANDON TAYLOR FOLIC 8 MEM [facility]OS[facility] ACID INC INC SERUM CYANOCOBA 52645 BRANDON TAYLOR PRATEEK 8 MEM [facility]OSP VITAMIN INC INC B-12 [place] [address] BRANDON TAYLOR THIAMINE- 8 [facility] VITAMIN INC INC B-1 SYPHILIS 40160 BRANDON TAYLOR TEST 8 [facility] HOSP NON-TREPO INC INC NEMAL ANTIBODY QUAL PRTBLE E0431 EVELYN RIVAS GASEOUS 8 HOME HOME O2 SYS MEDICAL MEDICAL RENT; EQUIPMENT EQUIPMENT FLWMTR HUMIDFR&M ASK O2 CONC 1 E1390 EVELYN RIVAS DEL PORT 8 HOME HOME 85%/>02 MEDICAL MEDICAL CONC AT EQUIPMENT EQUIPMENT PRSC FLW RATE Encounters Encounter Start End Date Code Location Performer Type Date HOSPITAL [facility]ON - 7 7 [facility] BR[facility] - 7 7 [facility] 55037 [facility] 7 7 [facility] T VISIT [facility]IGH/URGE NT SEVERITY HOSPITAL BRANDON - DHARMESH 7 7 [facility] BRANDON - OTHER 7 7 [facility] BRANDON - 7 7 [facility] BRANDON - 7 7 [facility] T OFFICE 38468 [facility] CLARIBEL CORDOVA 7 7 PHYSICIAN T VISIT GROUP 15 MINUTES OFFICE 23245 [facility] CORDOVA 7 7 MEDICAL ASTELLANO T [facility] 30 SERV S MINUTES [facility] 7 7 [facility] OUTPATI[facility] BRANDON - 7 7 [facility] OFF[facility] 91557 [facility] 7 7 PHYSICIAN T VISIT S GROUP [address] [facility] 7 7 [facility] T VISIT PHYS HIGH/URGE NT SEVERITY EMERGENCY 24210 LE[facility] KESSLER DEPT 7 7 PHYSICIAN VISIT S, PLLC HIGH SEVERITY& THREAT [facility] EMERGENCY 83136 BRAND[facility] 7 7 [facility] T VISIT LOW/MODER SEVERITY HOSPITAL BRANDON - 7 7 [facility]PATIEN [facility] BRANDON - 7 7 [facility]PATI[facility] BRANDON - 7 7 [facility] OUTPATIEN [facility] EMERGENCY 12692 BRANDON 7 7 [facility] T VISIT HIGH/URGE NT SEVERITY EMERGENCY 58486 LE[facility] PEDROZA DEPT 7 7 PHYSICIAN VISIT S, [facility] HIGH SEVERITY& THREAT [facility] BRANDON - OTHER 7 7 [facility] EMERGENCY 16005 BRANDON 7 7 [facility] T VISIT MODERATE SEVERITY EMERGENCY 19148 LEIGHTON LOPEZ 7 7 PHYSICIAN DEPARTMEN S, [facility] T VISIT HIGH/URGE NT SEVERITY HOSPITAL BRANDON - 7 7 [facility] OFF[facility] 08926 [facility] [address] BRANDON - OTHER 7 7 [facility] EMERGENCY 84503 LEIGHTON SINGH DEPT 7 7 PHYSICIAN VISIT S, [facility] HIGH SEVERITY& THREAT [facility] BRANDON - 7 7 [facility] OUTPATIEN [facility] EMERGENC[facility] 86698 BRANDON 7 7 [facility] T VISIT LOW/MODER SEVERITY HOSPITAL BRANDON - 7 7 [facility] OUTPATIEN [facility] EMERGENCY 21806 LEIGHTON PEDROZA DEPT 7 7 PHYSICIAN VISIT S, [facility] HIGH SEVERITY& THREAT [facility] BRANDON - 7 7 [facility] OUTPATIEN [facility] T EMERGENCY 42746 BRANDON 7 7 [facility] T [facility]ISIT LOW/MODER SEVERITY HOSPITAL BRANDON - OTHER 7 7 [facility] BRANDON - 7 7 [facility] BRANDON - 7 7 [facility] - 6 6 [facility] BRANDON - 6 6 [facility] EMERGENC[facility] 31129 LEIGHTON RENUSCH 6 6 PHYSICIAN FRANCES [employer] T VISIT HIGH/URGE NT SEVERITY EMERGENCY 80068 BRANDON 6 6 [facility] VISIT LOW/MODER SEVERITY OFFICE 41834 [facility] LORIE MCNALLY OUTSHABBIR 6 6 PHYSICIAN T VISIT S GROUP 25 MINUTES HOSPITAL BRANDON - 6 6 [facility] INPATIENT [facility] EMERGENCY 72310 LEIGHTON RENUSCH 6 6 PHYSICIAN BEBE ADAMSC T VISIT HIGH/URGE NT SEVERITY EMERGENCY 38014 BRANDON 6 6 [facility] T VISIT LOW/MODER SEVERITY HOSPITAL BRANDON - 6 6 [facility] BRANDON - 6 6 [facility] OFFICE 67238 [facility] LORIE MCNALLY OUTPATIEN 6 6 PHYSICIAN T NEW 45 S GROUP MINUTES EMERGENCY 48369 LEIGHTON RENUSCH 6 6 PHYSICIAN ILIR [employer] T VISIT HIGH/URGE NT SEVERITY EMERGENCY 56952 BRANDON 6 6 [facility] T VISIT LOW/MODER SEVERITY EMERGENCY 91653 LEIGHTON HAYDEN SHAKILA 6 6 PHYSICIAN FRANCES [employer] T VISIT HIGH/URGE NT SEVERITY HOSPITAL BRANDON - 6 6 [facility] OUTPATIEN [facility] BRANDON - 6 6 [facility] OUTPATIEN [facility]14 [facility] 6 6 [facility] NEW 30 ANKLE CE MINUTES HOSPITAL BRANDON - 6 6 [facility] OUTPATIEN [facility] BRANDON - 6 6 [facility] OUTPATIEN [facility] EMERGENCY 07895 LEIGHTON KESSLER 6 6 PHYSICIAN [facility] S, [facility] T VISIT HIGH/URGE NT SEVERITY EMERGENCY 05806 [facility] 6 6 [facility] T VISIT LOW/MODER SEVERITY HOSPITAL BRANDON - 6 6 [facility] OUTPATIEN [facility] BRANDON - 6 6 [facility] OUTPATIEN [facility] EMERGENCY 01490 LEIGHTON MARTINEZ, 6 6 PHYSICIAN JR FUENTES [facility] S, [facility] T VISIT HIGH/URGE NT SEVERITY EMERGENCY 63586 BRANDON 6 6 [facility] T VISIT LOW/MODER SEVERITY OFFICE 93757 [facility] 6 6 PHYSICIAN T VISIT S GROUP 10 HOSPITAL BRANDON - 6 6 [facility] OUTPATIEN [facility] T EMERGENCY 72654 LEIGHTON MAC 6 6 PHYSICIAN Meng HOWARD [facility] S, [facility] T VISIT HIGH/URGE NT SEVERITY EMERGENCY 56486 BR[facility]ON 6 6 [facility] T VISIT LOW/MODER SEVERITY EMERGENCY 47326 LEIGHTON KESSLER 6 6 PHYSICIAN SHANTHI [facility] S, [facility] T VISIT HIGH/URGE NT SEVERITY EMERGENCY 43703 [facility] 6 6 [facility] T [facility]ISIT LIMITED/M INOR PROB HOSPITAL BR[facility] - 6 6 [facility] OUTPATIEN [facility] T OFFICE [id number] [facility] OUTPATIEN 6 6 PHYSICIAN JERRY T VISIT S GROUP 10 MINUTES HOSPITAL [facility] 6 6 [facility] OUTPATIEN [facility] 6 6 [facility] OUTPATIEN [facility] T EMERGENCY [id number] [facility] 6 6 [facility] T VISIT LOW/MODER SEVERITY OFFICE 92520 EVELYN HALLMAN [facility] 10 [facility]ES H[facility] OTHER 6 6 [facility] BR[facility] - OTHER 6 6 [facility] BRAND[facility] - OTHER 5 5 [facility] EMERGENCY 70487 LEIGHTON KESSLER DEPT 5 5 PHYSICIAN SHANTHI VISIT S[facility] HIGH [facility]VERITY& [facility]AT [facility] 5 [facility] 93451 [facility] 5 5 [facility] T VISIT MODERATE SEVERITY EMERGENCY 17881 LEIGHTON KESSLER 5 5 PHYSICIAN SHANTHI DEPARTMEN S, [facility] T VISIT HIGH/URGE NT SEVERITY HOSPITAL [facility] - 5 5 [facility] 67520 LEIGHTON MAC 5 5 PHYSICIAN U ANITA DEPARTMEN S, [facility] T VISIT HIGH/URGE NT SEVERITY OFFICE 48230 [facility] 5 5 [facility] T VISIT INTERNAL 15 MED MINUTES EMERGENCY [id number] LEIGHTON KESSLER DEPT 5 5 PHYSICIAN SHANTHI VISIT S[facility] HIGH SEVERITY& THREAT [facility]PITAL [facility] - 5 5 [facility] OUTPATIEN [facility] EMERGENC[facility] 06995 [facility] 5 5 [facility] T VISIT [facility]IGH/URGE NT SEVERITY HOSPITAL [facility] - 5 5 [facility] 5 5 [facility] 5 5 [facility] - 5 5 [facility] EMERGENC[facility] 76856 LEIGHTON KESSLER 5 5 PHYS[facility], [facility] T VISIT HIGH/URGE NT SEVERITY EMERGENCY 82156 [facility] 5 5 [facility] VISIT LOW/MODER SEVERITY OFFICE 91437 [place] [facility] 5 5 MEDICAL AYANANE T VISIT SERV ACH 25 FOUNDATIO MINUTES HOSPITAL [facility] - 5 5 [facility] - 5 5 [facility] - OTHER 5 5 [facility] EMERGENCY 06899 BRANDON MARTINEZ, 5 5 [facility] T VISIT P HIGH[facility]URGE NT SEVERITY HOSPITAL [facility] - 5 5 [facility] 5 5 [facility] OFF[facility] 35024 [place] [facility] 5 5 MEDICAL AYANANE T VISIT SERV ACH 25 FOUNDATIO MINUTES N EMERGENCY 43052 [facility] MENARD [facility] 5 5 [facility] T VISIT P HIGH/URGE NT SEVERITY OFFICE 00286 [facility] 4 4 PHYSICIAN LUCITA T VISIT S GROUP 25 MINUTES EMERGENCY 06180 [facility] 4 4 [facility] EMERGENC[facility] T VISIT PHYS MODERATE SEVERITY HOSPITAL [facility] - 4 4 [facility] EMERGENCY 52702 [facility] 4 4 [facility] T VISIT LOW/MODER SEVERITY OFFICE 52386 EAR, NOSE SHASHY OUTPATIEN 4 4 AND SOBEIDA T VISIT THROAT 25 SPECIAL MINUTES OFFICE 62176 MARNI MARNI OUTPATIEN 4 4 LUIS ALFREDO LUIS ALFREDO T VISIT 25 MINUTES OFFICE 43027 EAR, NOSE SHASHY OUTPATIEN 4 4 AND SOBEIDA T VISIT THROAT 25 SPECIAL MINUTES HOSPITAL [facility] - 4 4 [facility] UNIVERSIT [facility] 4 4 Y [facility] T OFFICE 64396 [place] SOURIANAR OUTPATIEN 4 4 MEDICAL AYANANE T VISIT SERV ACH 25 FOUNDATIO MINUTES EMERGENCY [address] [facility] 4 4 [facility] VISIT PHYS HIGH/URGE NT SEVERITY HOSPITAL UNIVERSIT - 4 4 Y [facility] T OFFICE 17621 [facility] OUTPATIEN 4 4 DERMATOLO DERMATOLO T NEW 30 GY GY MINUTES HOSPITAL [facility] 4 4 [facility] - 4 4 [facility] - 4 4 [facility] HOSP[facility] UNIVERSIT - OTHER 4 4 Y [facility] HOSPITAL UNIVERSIT [facility] 4 4 Y [facility] T EMERGENCY 88652 UNIVERSIT 4 4 Y [facility] T VISIT HIGH/URGE NT SEVERITY HOSPITAL [facility] - OTHER 4 4 [facility] EMERGENCY 40912 [facility] DEPT 4 4 KAMAR VISIT EMERGENCY HIGH PHYS SEVERITY& THREAT [facility]EN [facility]ON - 4 4 [facility] - OTHER 4 4 [facility] INC OFFICE 82194 [place] [facility] OUTPATIEN 4 4 [facility] 30 SERV MINUTES FOUNDATI OFFICE 23076 [facility] MIRANDA OUTPATIEN 4 4 [facility] 15 P MINUTES EMERGENCY 17476 MARLO KESSLER DEPT 4 4 EMERGENCY SHANTHI VISIT SERVICES HIGH SEVERITY& THREAT [facility] 4 4 [facility] OFFICE 04306 [facility] GARO OUTPATIEN 4 4 [facility] 45 CENTER [facility] BRANDON - 4 4 [facility]PATIEN [facility] BRANDON [facility] 4 4 [facility] BRANDON - 4 4 [facility] EMERGENCY 70817 MARLO KESSLER DEPT 3 3 EMERGENCY SHANTHI VISIT SERVICES HIGH SEVERITY& THREAT [facility] 3 3 [facility] OFFICE 71145 [facility] MIRANDA OUTPATIEN 3 3 [facility] 10 P MINUTES [facility] BR[facility]ON - 3 3 [facility]PATIEN [facility] BRANDON - 3 3 [facility] OFFICE 60537 [facility] MIRANDA OUTPAT[facility]EN 3 3 [facility] 10 P MINUTES [facility] BR[facility]ON - 3 3 [facility]PAT[facility]EN [facility] BR[facility]ON - 3 3 [facility] EMERGENCY 13797 MARLO COTTO DEPT 3 3 EMERGENCY BRO VISIT SERVICES HIGH SEVERITY& THREAT [facility] EMERGENCY 55878 [facility] 3 3 [facility] DEPARTMEN INC T VISIT LOW/MODER SEVERITY OFFICE 39847 MARNI MARNI OUTPATIEN 3 3 LUIS LAFREDO LOBATO T VISIT 15 MINUTES HOSPITAL [facility] - 3 3 [facility]PATIEN INC T [facility] - 3 3 [facility] OUTPATIEN INC T [facility] - 3 3 [facility] INC T [facility] - 3 3 [facility] OUTPATIEN INC T OFFICE 14698 MARNI MARNI OUTPATIEN 3 3 LUIS ALFREDO LOBATO T VISIT 25 MINUTES HOSPITAL [facility] - 3 3 [facility] OUTPATIEN INC T OFFICE 44281 [place] MCKEMIE OUTPATIEN 3 3 ZACKERY HUMPHREYS T VISIT INTERNAL 15 MED MINUTES HOSPITAL [facility] - 3 3 [facility] OUTPATIEN INC T OFFICE 06822 MARNI REYNAGAURN OUTPATIEN 3 3 LUIS ALFREDO LOBATO T VISIT 40 MINUTES HOSPITAL [facility] - 3 3 [facility] OUTPATIEN INC T [facility]PITAL BRAD[facility] - 3 3 [facility] OUTPATIEN INC T OFFICE 61112 [place] MCKEMIE OUTPATIEN 3 3 ZACKERY HUMPHREYS T VISIT INTERNAL 15 MED MINUTES OFFICE 46364 [facility] MUSTAPHA OUTPATIEN 3 3 ZACKERY ZHAO T VISIT INTERNAL 15 MEDI MINUTES OFFICE 86507 [place] MCKEMIE OUTPATIEN 3 3 ZACKERY HUMPHREYS T VISIT INTERNAL 15 MED MINUTES OFFICE 05797 [place] MCKEMIE OUTPATIEN 3 3 ZACKERY HUMPHREYS T VISIT INTERNAL 15 MED MINUTES OFFICE 88086 [place] MUSTAPHA OUTPATIEN 3 3 [place] CE[facility] T VISIT INTERNAL 15 MEDI MINUTES HOSPITAL [facility] - 3 3 [facility] OUTPATIEN INC [facility] - 3 3 [facility] OUTPATIEN INC T OFFICE 83587 [place] MCKEMIE OUTPATIEN 3 3 [facility] PETR T VISIT INTERNAL 15 MED MINUTES HOSPITAL [facility] - 3 3 [facility] OUTPATIEN INC T OFFICE 48164 [place] MUSTAPHA OUTPATIEN 3 3 [place] CE[facility] T VISIT INTERNAL 15 MEDI MINUTES HOSPITAL [facility] - 3 3 [facility] OUTPATIEN INC T OFFICE 78562 [facility] PETTEY OUTPATIEN 3 3 [facility] NEW 30 S GROUP MINUTES OFFICE 97215 [place] MUSTAPHA OUTPATIEN 3 3 [place] CCEE T VISIT INTERNAL 15 MEDI MINUTES HOSPITAL [facility] - 3 3 [facility] OUTPATIEN INC T OFFICE 00292 [place] MUST[place]HA OUTPATIEN 3 3 [place] CE[facility] T VISIT INTERNAL 15 MEDI MINUTES OFFICE 31023 MARNI MARNI OUTPATIEN 3 3 LUIS ALFREDO LUIS ALFREDO T VISIT 25 MINUTES OFFICE 03228 MARNI MARNI OUTPATIEN 3 3 LUIS ALFREDO LUIS ALFREDO T VISIT 25 MINUTES OFFICE 21507 [place] MUST[place]HA OUTPATIEN 3 3 [place] CE[facility] T VISIT INTERNAL 15 MEDI MINUTES HOSPITAL [facility] - 3 3 [facility] OUTPATIEN INC T OFFICE 46386 [facility] PHILIP JR OUTPATIEN 3 3 [facility] PETR T NEW 30 HOSPITAL MINUTES P OFFICE 93668 [place] MUSTAPHA OUTPATIEN 3 3 [place] CECE T VISIT INTERNAL 15 MEDI MINUTES OFFICE 47229 [place] MCKEMIE OUTPATIEN 3 3 ZACKERY EDWARD PETR T VISIT INTERNAL 15 MED MINUTES HOSPITAL [facility] - 3 3 [facility] INPATIENT INC OFFICE 52756 [place] MUST[place]HA OUTPATIEN 3 3 [place] CE[facility] T VISIT INTERNAL 15 MEDI MINUTES HOSPITAL [facility] - 3 3 [facility] OUTPATIEN INC T HOSPITAL [facility] - 2 2 [facility] OUTPATIEN INC T EMERGENCY 16337 MARLO DANFORTH 2 2 EMERGENCY JAM DEPARTMEN SERVICES T VISIT HIGH/URGE NT SEVERITY OFFICE 08964 [place] MCLETITIAMIE OUTPATIEN 2 2 ZACKERY HUMPHREYS T VISIT INTERNAL 15 MED MINUTES HOSPITAL [facility] - 2 2 [facility] OUTPATIEN INC T OFFICE 20022 H[facility]IZ[facility] BAZZI OUTPATIEN 2 2 [facility] 15 MINUTES OFFICE 87480 [facility] BAZZI OUTPATIEN 2 2 [facility] 15 MINUTES HOSPITAL CENTRAL - 2 2 [facility] OUTPATIEN HOSP T EMERGENCY 19706 [facility] DEPT 2 2 KAMAR DEIDRA VISIT EMERGENCY HIGH PHYS SEVERITY& THREAT FUNCJ OFFICE 31640 [facility] BAZZI OUTPATIEN 2 2 [facility] 15 MINUTES OFFICE 06099 [facility] BAZZI OUTPATIEN 2 2 [facility]IS[facility] C[facility] 15 MINUTES OFFICE 06906 HORIZON BAZZI OUTPATIEN 2 2 [facility] T VISIT [facility] CENTER 15 MINUTES OFFICE 40235 COLOR[facility] PALOMO OUTPATIEN 2 2 L SURGIAL CATRACHITO T NEW 45 MINUTES ASSOCIATE OFFICE 89139 HORIZON BAZZI OUTPATIEN 2 2 [facility] T NEW 45 E CENTER MINUTES EMERGENCY 71950 DOM DHALIWAL 2 2 KAMAR DAYANA DEPARTMEN EMERGENCY T VISIT SERVI HIGH/URGE NT SEVERITY OFFICE 59498 José SOPHIE LYONS OUTPATIEN 2 2 ELOY GAMBOA T VISIT MD PSC 25 MINUTES HOSPITAL [facility] - 2 2 [facility] OUTPATIEN INC T OFFICE 85044 [place] MUST[place]HA OUTPATIEN 2 2 [place] CECE T VISIT INTERNAL 15 MEDI MINUTES HOSPITAL [facility] - 2 2 [facility] OUTPATIEN INC T OFFICE 56134 [place] MCKEMIE OUTPATIEN 2 2 ZACKERY HUMPHREYS T VISIT INTERNAL 15 MED MINUTES HOSPITAL [facility] 2 [facility] 94739 UNIVERSIT DEPT 2 2 Y VISIT HOSPITAL HIGH SEVERITY& THREAT FUNJ HOSPITAL [facility] - 2 2 [facility] OUTPATIEN [facility] T EMERGENCY 62894 [facility] 2 2 [facility] DEPARTMEN INC T VISIT HIGH/URGE NT SEVERITY EMERGENCY 11591 MARLO FATIMA DEPT 2 2 EMERGENCY PETR VISIT SERVICES HIGH SEVERITY& THREAT [facility] OFFICE 70671 [place] MCKEMIE OUTPATIEN 2 2 ZACKERY HUMPHREYS T VISIT INTERNAL 15 MED MINUTES EMERGENCY 86584 MARLO KESSLER DEPT 2 2 EMERGENCY SHANTHI VISIT SERVICES HIGH SEVERITY& THREAT FUN EMERGENCY 26875 [facility] 2 2 [facility] DEPARTMEN INC T VISIT HIGH/URGE NT SEVERITY HOSPITAL [facility] - 2 2 [facility] OUTPATIEN INC T OFFICE 51545 [place] BESSON OUTPATIEN 2 2 [place] CATRACHITO T VISIT INTERNAL 15 MED MINUTES HOSPITAL [facility] - 2 2 [facility] OUTPATIEN INC T EMERGENCY 40573 [facility] 2 2 [facility] DEPARTMEN INC T VISIT MODERATE SEVERITY EMERGENCY 21128 MARLO KESSLER 2 2 EMERGENCY SHANTHI DEPARTMEN SERVICES T VISIT HIGH/URGE NT SEVERITY HOSPITAL [facility] - 2 2 [facility] OUTPATIEN INC T OFFICE 13001 [place] MCKEMIE OUTPATIEN 2 2 ZACKERY HUMPHREYS T VISIT INTERNAL 15 MED MINUTES OFFICE 62763 [place] BESSON OUTPATIEN 2 2 ZACKERY WINSTON T VISIT INTERNAL 25 MED MINUTES HOSPITAL [facility] - 2 2 [facility] OUTPATIEN INC T OFFICE 32777 MARNI MARNI OUTPATIEN 2 2 LUIS ALFREDO LOBATO T VISIT 25 MINUTES HOSPITAL [facility] - 2 2 [facility] OUTPATIEN INC T EMERGENCY 70055 [facility] 2 2 [facility] DEPARTMEN INC T VISIT MODERATE SEVERITY [facility]OSP[facility] - 2 2 [facility] OUTPATIEN INC T [facility] - 2 2 [facility] OUTPATIEN INC T OFFICE 22964 MARNI MARNI OUTPATIEN 2 2 LUIS ALFREDO LOBATO T NEW 45 MINUTES OFFICE 69555 [place] MUSTAPHA OUTPATIEN 2 2 ZACKERY CECE T VISIT INTERNAL 15 MEDI MINUTES OFFICE 53399 [place] MUTSAPHA OUTPATIEN 2 2 ZACKERY CECE T VISIT INTERNAL 15 MEDI MINUTES OFFICE 42688 [place] MUSTAPHA OUTPATIEN 2 2 [place] CECE T VISIT INTERNAL 10 MEDI MINUTES HOSPITAL [facility] - 2 2 [facility] OUTPATIEN INC T EMERGENCY 46929 MARLO AKERS DEPT 2 2 EMERGENCY VISIT SERVICES HIGH SEVERITY& THREAT FUNCJ EMERGENCY 82027 [facility] 2 2 [facility] DEPARTMEN INC T VISIT HIGH/URGE NT SEVERITY OFFICE 11745 [place] MCKEMIE OUTPATIEN 2 2 ZACKERY HUMPHREYS T VISIT INTERNAL 15 MED MINUTES OFFICE 71732 KENZIE ESPINO OUTPATIEN 2 2 LUCITA LANDRUM T NEW 60 MINUTES OFFICE 78003 [place] BESSON OUTPATIEN 2 2 [facility] VISIT INTERNAL 15 MED MINUTES EMERGENCY 81585 [facility] 2 2 [facility] DEPARTMEN INC T VISIT HIGH/URGE NT SEVERITY HOSPITAL [facility] - 2 2 [facility] OUTPATIEN INC T OFFICE 85691 [place] GAL THO OUTPATIEN 1 1 MEDICAL T NEW 30 SERV MINUTES FOUNDATIO OFFICE 57699 EAR, NOSE SHASHY OUTPATIEN 1 1 AND SOBEIDA T VISIT THROAT 25 SPECIAL MINUTES HOSPITAL [facility] - 1 1 [facility] OUTPATIEN [facility] T OFFICE 54074 EAR, NOSE SHASHY OUTPATIEN 1 1 AND SOBEIDA T NEW 30 THROAT MINUTES SPECIAL OFFICE 70077 [place] BESSON OUTPATIEN 1 1 [facility] T VISIT INTERNAL 15 MED MINUTES HOSPITAL [facility] - 1 1 [facility] OUTPATIEN [facility] - 1 1 [facility] OUTPATIEN INC T EMERGENCY 55004 [facility] 1 1 [facility] DEPARTMEN INC T VISIT HIGH/URGE NT SEVERITY HOSPITAL [facility] - 1 1 [facility] OUTPATIEN INC [facility]OSPITAL [facility] - 1 1 [facility] OUTPATIEN INC T OFFICE 51964 ELLEN SCIEVELYN OUTPATIEN 1 1 VISION ANG T VISIT 10 MINUTES HOSPITAL [facility] - 1 1 [facility] OUTPATIEN INC T EMERGENCY 31723 [facility] 1 1 [facility] T VISIT LIMITED/M INOR PROB EMERGENCY 47892 MARLO AKERS 1 1 EMERGENCY DEPARTMEN SERVICES T VISIT HIGH/URGE NT SEVERITY HOSPITAL [facility] - 1 1 [facility] OUTPATIEN INC [facility] - 1 1 [facility] OUTPATIEN INC OFFICE 84732 AKUA VELASQUEZ OUTPATIEN 1 1 Aug NEW 30 MINUTES EMERGENCY 91755 MARLO KESSLER 1 1 EMERGENCY SHANTHI DEPARTMEN SERVICES T VISIT HIGH/URGE NT SEVERITY HOSPITAL [facility] - 1 1 [facility] OUTPATIEN INC EMERGENCY 41587 [facility] 1 1 [facility] T VISIT MODERATE SEVERITY HOSPITAL [facility] - 1 1 [facility]PAT[facility]EN INC [facility] - 1 1 [facility] INC [facility] - 1 1 [facility] INC [facility] - 1 1 [facility]PATIEN INC OFFICE 72443 [facility] [address] [facility] 45 MINUTES OFFICE 54118 RAKANHELEN CARIN OUTPATIEN [address] [facility] 45 MINUTES HOSPITAL [facility] - 1 1 [facility] INC [facility] - 1 1 [facility] - 1 1 [facility] OUTPATIEN INC T EMERGENCY 59125 [facility] 1 1 [facility] DEPARTMEN [facility] T VISIT HIGH/URGE NT SEVERITY EMERGENCY 06916 MARLO AKERS 1 1 EMERGENCY DEPARTMEN SERVICES T VISIT HIGH/URGE NT SEVERITY HOSPITAL [facility] - 1 1 [facility]PATIEN INC [facility] - 1 1 [facility] OUTPATIEN INC T EMERGENCY 52857 MARLO JACKSON OSWALD DEPT 1 1 EMERGENCY VISIT SERVICES HIGH SEVERITY& THREAT [facility] INC [facility] 1 1 [facility] INC [facility] - 1 1 [facility] 1 1 [facility] 1 1 [facility] - 1 1 [facility] OUTPATIEN INC OFFICE 06055 [facility] 1 ELOY Reaves MD [facility]ON - 1 1 [facility] OUTPATIEN INC T EMERGENCY 24961 MARLO KESSLER, 0 0 [facility] T VISIT MODERATE ASSOCIATE SEVERITY S EMERGENCY 03127 [facility] 0 0 [facility] DEPARTMEN INC T VISIT LOW/MODER SEVERITY HOSPITAL [facility] - 0 0 [facility]PAT[facility]EN [facility] - 0 0 [facility] OUTPATIEN INC T EMERGENCY 40605 MARLO CORTÉS, 0 0 EMERGENCY [facility] DEPARTMEN SERVICES O T VISIT HIGH/URGE ASSOCIATE NT S SEVERITY HOSPITAL [facility] - 0 0 [facility] OUTPATIEN INC T EMERGENCY 17732 [facility] 0 0 [facility] DEPARTMEN INC T VISIT MODERATE SEVERITY EMERGENCY 29327 MARLO KESSLER, 0 0 EMERGENCY [facility] DEPARTMEN SERVICES T VISIT MODERATE ASSOCIATE SEVERITY S HOSPITAL [facility] - 0 0 [facility] OUTPATIEN INC T EMERGENCY 00766 [facility] 0 0 [facility] DEPARTMEN INC T VISIT LOW/MODER SEVERITY [facility]OSP[facility] - 9 9 [facility] OUTPATIEN INC T OFFICE 69652 [place] PRISCILLA, OUTPATIEN 9 9 ZACKERY Blum T VISIT INTERNAL 15 MED MINUTES OFFICE 97117 [place] PRISCILLA OUTPATIEN 9 9 ZACKERY SULLIVAN A T VISIT INTERNAL 25 MED MINUTES HOSPITAL [facility] - 9 9 [facility] OUTPATIEN INC T OFFICE 39270 [place] SCOTTY OUTPATIEN 9 9 ZACKERY EDWARD, T VISIT INTERNAL KANNAN F 10 MED MINUTES OFFICE 32070 [place] PRISCILLA OUTPATIEN 9 9 ZACKERY SULLIVAN A T VISIT INTERNAL 15 MED MINUTES EMERGENCY 86866 MARLO KESSLER, 9 9 EMERGENCY [facility] DEPARTMEN SERVICES T VISIT HIGH/URGE ASSOCIATE NT S SEVERITY EMERGENCY 71316 [facility] 9 9 [facility] DEPARTMEN INC T VISIT MODERATE SEVERITY HOSPITAL [facility] - 9 9 [facility] OUTPATIEN INC T OFFICE 50632 LEANA DUEÑAS OUTPATIEN 9 9 CHELSY Headley T VISIT 15 MINUTES EMERGENCY 96900 MARLO CORTÉS, DEPT 9 9 EMERGENCY [facility] VISIT SERVICES O HIGH SEVERITY& ASSOCIATE THREAT S FUNCJ EMERGENCY 41189 MARLO KESSLER, 9 9 [facility] T VISIT MODERATE ASSOCIATE SEVERITY S EMERGENCY 22392 MARLO KESSLER, 9 9 EMERGENCY [facility] DEPARTMEN SERVICES T VISIT HIGH/URGE ASSOCIATE NT S SEVERITY EMERGENCY 95138 [facility] 9 9 [facility] DEPARTMEN INC T VISIT MODERATE SEVERITY HOSPITAL [facility] - 9 9 [facility] OUTPATIEN INC T OFFICE 49328 LEANA DUEÑAS OUTPATIEN 9 9 CHELSY Headley T VISIT 15 MINUTES EMERGENCY 46971 [facility] 9 9 [facility] DEPARTMEN INC T VISIT HIGH/URGE NT SEVERITY EMERGENCY 93140 MARLO CORTÉS DEPT 9 9 EMERGENCY [facility] VISIT SERVICES O HIGH SEVERITY& ASSOCIATE THREAT S [facility] 9 9 [facility] OUTPATIEN INC T EMERGENCY 29388 [facility] DEPT 9 9 [facility] VISIT INC HIGH SEVERITY& THREAT [facility] - 9 9 [facility] OUTPATIEN INC T EMERGENCY 43907 MARLO CENTENO DEPT 9 9 EMERGENCY SAL Huffman VISIT SERVICES HIGH SEVERITY& ASSOCIATE THREAT S [facility] OFFICE 38115 MARY HERNANDEZ OUTPATIEN 9 9 OSWALDO Franz T VISIT 10 MINUTES HOSPITAL [facility] - 9 9 [facility] OUTPATIEN INC T OFFICE 00917 MARY HERNANDEZ OUTPATIEN 9 9 OSWALDO Franz T VISIT 15 MINUTES HOSPITAL [facility] - 9 9 [facility] OUTPATIEN INC T OFFICE 82730 LEANA DUEÑAS OUTPATIEN 9 9 CHELSY Headley T VISIT 15 MINUTES OFFICE 12687 LEANA DUEÑAS OUTPATIEN 9 9 CHELSY Headley T VISIT 15 MINUTES EMERGENCY 81642 MARLO SHEA DEPT 9 9 EMERGENCY GISELLE Neely VISIT SERVICES HIGH SEVERITY& ASSOCIATE THREAT S [facility] - 9 9 [facility] OUTPATIEN INC T OFFICE 53369 LEANA DUEÑAS OUTPATIEN 9 9 CHELSY Headley T VISIT 15 MINUTES OFFICE 91547 LEANA DUEÑAS OUTPATIEN 9 9 CHELSY Headley T VISIT 15 MINUTES EMERGENCY 26978 [facility] 9 9 [facility] DEPARTMEN INC T VISIT LOW/MODER SEVERITY EMERGENCY 72632 MARLO CORTÉS, 9 9 [facility] T VISIT MODERATE ASSOCIATE SEVERITY S HOSPITAL [facility] - 9 9 [facility] OUTPATIEN INC T OFFICE 80975 LEANA DUEÑAS OUTPATIEN 9 9 CHELSY Headley T VISIT 15 MINUTES HOSPITAL [facility] - 9 9 [facility] OUTPATIEN INC T OFFICE 97420 ART BARNARD 9 9 MEDICAL GEOR[place]IANA T VISIT SERV 25 FOUNDATIO MINUTES EMERGENCY 51791 [facility] 9 9 [facility] DEPARTMEN INC T VISIT HIGH/URGE NT SEVERITY EMERGENCY 08799 MARLO KESSLER DEPT 9 9 EMERGENCY [facility] VISIT SERVICES HIGH SEVERITY& ASSOCIATE THREAT S [facility] 9 9 [facility] OUTPATIEN INC T OFFICE 01425 LEANA DUEÑAS OUTPATIEN 9 9 CHELSY Headley T VISIT 15 MINUTES EMERGENCY 93723 MARLO VIDES DEPT 9 9 EMERGENCY [facility] VISIT SERVICES ER R HIGH SEVERITY& ASSOCIATE THREAT S [facility] 9 9 [facility] OUTPATIEN INC T EMERGENCY 86751 [facility] 9 9 [facility] DEPARTMEN INC T VISIT MODERATE SEVERITY OFFICE 64882 LEANA DUEÑAS OUTPATIEN 9 9 CHELSY Headley T VISIT 15 MINUTES HOSPITAL [facility] - 9 9 [facility] OUTPATIEN INC T EMERGENCY 54075 [facility] 9 9 [facility] DEPARTMEN INC T VISIT LOW/MODER SEVERITY OFFICE 06437 LEANA DUEÑAS OUTPATIEN 9 9 CHELSY Headley T VISIT 15 MINUTES OFFICE 11573 LEANA DUEÑAS OUTPATIEN 9 9 CHELSY Headley T VISIT 15 MINUTES OFFICE 28280 LEANA DUEÑAS OUTPATIEN 9 9 CHELSY VALENTINO W T VISIT 15 MINUTES OFFICE 90471 ART BARNARD 9 9 MEDICAL [place] T VISIT SERV 25 FOUNDATIO MINUTES OFFICE 36046 LEANA DUEÑAS OUTPATIEN 8 8 CHELSY VALENTINO W T VISIT 15 MINUTES OFFICE 16193 LEANA DUEÑAS OUTPATIEN 8 8 CHELSY VALENTINO W T VISIT 15 MINUTES EMERGENCY 99045 [facility] 8 8 [facility] DEPARTMEN INC T VISIT LIMITED/M INOR [facility] BRANDON - 8 8 [facility] OUTPATIEN INC T OFFICE 89950 ART BARNARD 8 8 MEDICAL [place] T VISIT SERV 25 FOUNDATIO MINUTES OFFICE 97947 LEANA DUEÑAS OUTPATIEN 8 8 CHELSY Headley T VISIT 15 MINUTES OFFICE 00099 LEANA DUEÑAS OUTPATIEN 8 8 CHELSY Headley T VISIT 15 MINUTES HOSPITAL [facility] - 8 8 [facility] OUTPATIEN INC T EMERGENCY 33689 [facility] 8 8 [facility] DEPARTMEN INC T VISIT HIGH/URGE NT SEVERITY EMERGENCY 00754 JENNIFER ROSARIO, 8 8 [facility] VIS[facility] ON MODERATE SEVERITY OFFICE 20630 LEANA DUEÑAS OUTPATIEN 8 8 CHELSY Fang VALENTINO W T VISIT 15 MINUTES HOSPITAL [facility] - 8 8 [facility] OUTPAT[facility]EN INC T [facility] - 8 8 [facility] OUTPATIEN INC T OFFICE 84719 SAMANTA ENGLAND OUTPATIEN 8 8 CHUCK WOODS T VISIT 25 MINUTES OFFICE 44142 BUNNY LORD, CONSULTAT 8 8 [place] GRIFFITHS NEW/ESTAB FOUNDATIO PATIENT 60 MIN OFFICE 16083 LEANA DUEÑAS OUTPATIEN 8 8 CHELSY Headley T VISIT 15 MINUTES EMERGENCY 50865 [facility] 8 8 [facility] DEPARTMEN INC T VISIT LIMITED/M INOR PROB HOSPITAL [facility] - 8 8 [facility] OUTPATIEN INC T OFFICE 16114 ALLFAINA ALLRAN CONSULTAT 8 8 JR EDWARD ION CHARLES F CHARLES F NEW/ESTAB PATIENT 60 MIN [facility] OUT[facility] T EMERGENCY 46450 [facility] DEPARTMEN INC T VISIT MODERATE SEVERITY [facility] T EMERGENCY 85357 JENNIFER ROSARIO, 8 8 NATIONAL RONDAL E DEPARTMEN CORPORATI T VISIT ON HIGH/URGE NT SEVERITY OFFICE 37079 LEANA DUEÑAS OUTPATIEN 8 8 CHELSY Headley T VISIT 15 MINUTES EMERGENCY 54519 [facility] DEPARTMEN INC T VISIT LIMITED/M [facility] 8 8 [facility] OUT[facility] INC T EMERGENCY 98830 JENNIFER CORTÉS, 8 8 NATIONAL GRACE DEPARTMEN CORPORATI O T VISIT ON LOW/MODER SEVERITY EMERGENCY 24496 [facility] DEPARTMEN INC T VISIT LOW/MODER SEVERITY [facility] T OFFICE 00440 LEANA DUEÑAS OUTPATIEN 8 8 CHELSY Headley T VISIT 15 MINUTES [facility] 8 [facility] T OFFICE 21495 LEANA DUEÑAS OUTPATIEN 8 8 CHELSY Headley T VISIT 15 MINUTES OFFICE 06494 CARLOS LEYVA OUTPATISABRINA 8 8 KANNAN Franz T VISIT CARDIOLOG 40 Y MINUTES CONSULTAN T OFFICE 21676 LEANA DUEÑAS OUTPATIEN 8 8 CHELSY Headley T VISIT 15 MINUTES OFFICE 42066 LEANA DUEÑAS OUTPATISABRINA 8 8 CHELSY Headley T NEW 30 MINUTES INITIAL 50740 [facility] 8 8 [facility] - 8 8 [facility] OUTPATIEN INC T EMERGENCY 58761 [facility] 8 8 [facility] DEPARTMEN INC T VISIT HIGH/URGE NT SEVERITY OFFICE 05527 [facility] MCKEMIE OUTPATIEN 8 8 Luis Carlos VIZCARRA JR VISIT INTERNAL KANNAN F 15 MED MINUTES [facility]OSPITAL [facility] 8 8 [facility] - 8 8 [facility] OUTPATIEN INC T OFFICE 20015 [facility] OUTPATIEN 8 8 Luis Carlos VIZCARRA JR VISIT 5 INTERNAL KANNAN F MINUTES MED OFFICE 88695 [facility] OUTPATIEN 8 8 Luis Carlos VIZCARRA JR VISIT INTERNAL KANNAN F 15 MED MINUTES EMERGENCY 67623 [facility] 8 8 [facility] DEPARTMEN INC T VISIT LIMITED/M [facility] - 8 8 [facility] OUTPATIEN INC T OFFICE 22826 [facility] MCKEMIE OUTPATIEN 8 8 Luis Carlos VIZCARRA JR VISIT INTERNAL KANNAN F 15 MED MINUTES EMERGENCY 24215 [facility] KAPLAN, DEPT 8 8 [facility] PROF SERV [facility]VERITY& [facility] 8 8 [facility] - 8 8 [facility] OFFICE 08048 SAMANTA ENGLAND, CONSULTAT 8 8 CHUCK WOODS ION NEW/ESTAB PATIENT 80 MIN OFFICE 05946 BUNNY MANZANO, CONSULTAT 8 8 [facility] SERV NEW/ESTAB FOUNDATIO PATIENT 40 MIN
--- OUTSIDE RECORDS SUMMARY | 2016-12-11 10:00 | External Medical Summary Rpt ---
Author Author , Organization [employer] Address Unknown Phone Unavailable Care Team Providers Care Casino Games Dealer Name Role Phone JARED-YANIQUE MOH, Unavailable Unavailable [...] PATHOLOGY Unavailable Unavailable SERVICES, [facility] Un[facility]available [facility] Unavailable Unavailable [facility], [facility] Unavailable Unavailable [facility], [facility] COTTO BRO, COTTO Unavailable [...] RISA, [place] Unavailable Unavailable SERVICE, [facility] Unavailable Unavailable SERVICE, [facility] BRIZUELA JAM, BRIZUELA JAM Unavailable Unavailable SOMERS LAR, SOMERS LAR Unavailable Unavailable C SOPHIE LYONS MD Unavailable Unavailable [facility], José LYONS MD PSC [facility], [facility] Unavailable Unavailable [facility], Unavailable [facility] CHIPPS TORO & Unavailable Unavailable DUBILIER, [...] [facility] Unavailable Unavailable [facility] COOK KARLA, COOK KARLA Unavailable Unavailable CEDRICK JR PETR, CEDRICK Unavailable Unavailable JR PETR HOMER AYLA, Unavailable Unavailable HOMER AYLA HOMER, FREDO, Unavailable Unavailable HOMER, FREDO [facility], Unavailable Unavailable [facility] Unavailable Unavailable [facility]QUIP[facility], [facility] Un[facility], [facility] Unavailable Unavailable [facility]ULTANTS [facility], [facility] JANELLE, JANELLE Unavailable Unavailable [facility], [facility] ARVIZU DEIDRA, Unavailable Unavailable ARVIZU DEIDRA ARVIZU DEIDRA, Unavailable Unavailable ARVIZU DEIDRA GAFFNEY PJ, GAFFNEY PJ Unavailable Unavailable [facility] Unavailable Unavailable SPECIAL, [facility] Unavailable [facility]available [place] GARO FERNANDEZ, Unavailable [...] DEL ROSARIO, Unavailable Unavailable ERVIN DEL ROSARIO [facility] Unavailable Unavailable INC, [facility] Unavailable Unavailable HOSPITAL P, [facility] BARRY CARY HARVEY, Unavailable Unavailable BARRY HALLMAN JAMES, VIJI JAMES Unavailable Unavailable [facility], Unavailable Unavailable [facility], Unavailable Unavailable [facility] MARIANA GALEANA, Unavailable Unavailable MARIANA GALEANA [facility] Unavailable Unavailable [facility], [facility] SH[facility]ILA, HAYDEN SHAKILA Unavailable [facility] ROB ZAMUDIO, Unavailable Unavailable ROB ZAMUDIO [facility] Unavailable Unavailable JNAET KAVYA GONZALES [facility] Unavailable Unavailable ERVIN WICK, Unavailable Unavailable ERVIN HOFF [facility] Unavailable Unavailable LLC, D, [facility], [facility] Un[facility]available [facility] Unavailable Unavailable IMAGING ASS, [facility] POOL BARON, POOL TOD [...] [facility] Unavailable Unavailable [facility] Unavailable Unavailable [facility], [facility] Unavailable Unavailable [facility], [facility] M E D SUPPLIES, [...] [facility], Unavailable Unavailable [facility] Unavailable Unavailable EMERGENCY PH[facility], [facility] GARCIA RAY, GARCIA Unavailable Unavailable RAY NATAHCA PHI, NATACHA PHI Unavailable Unavailable NATACHA, NICOLE A, Unavailable Unavailable NATACHA, NICOLE A [facility] Unavailable Unavailable HOSPITALS, [facility], Unavailable Unavailable [facility], [facility] AND Unavailable Unavailable [facility], Unavailable Unavailable [facility] Kylee CORDERO, Unavailable Unavailable Kylee CORDERO [facility] Unavailable Unavailable [id number], [facility] FRANCISCO SINGH Unavailable Unavailable MARCELINO DEIDRA, MARCELINO Unavailable Unavailable MIEK CHAPA, Unavailable Unavailable MIKE KAPLAN WINKLER Unavailable Unavailable SHANTHI [facility] Unavailable Unavailable OF [place], [facility] [place] [facility], Unavailable [facility]available [facility], Unavailable Unavailable [facility] Purpose Continuity of Care Document - 07-11-2007 through 2016 Problems Code Diagnosis DOS Provider Status [id number] ASHD UPPER SKAGIT 11-06-2016 [facility]ARY [facility] ARTERY W/O INC ANGINA PECTORIS [id number] PAIN IN 11-06-2016 [facility] RIGHT LEG [facility] INC C56752 PAIN IN 11-06-2016 [facility] LEFT LEG [facility] INC 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 ATHY LUMB RGN M549 DORSALGIA 10-23-2016 [facility] UNSPECIFIED [facility] INC R300 DYSURIA 10-19-2016 [facility] INC E039 HYPOTHYROID 10-05-2016 [facility] ISM [facility] UNSPECIFIED INC M7702 MEDIAL 09-19-2016 [facility] EPICONDYLIT [facility] IS LEFT INC ELBOW J040 ACUTE 2016 [facility] LARYNGITIS PHYSICIAN GROUP Q60028 SPONDYLOSIS 09-15-2016 [facility] MYELOPATH/[facility] HOSPITALS ADICULOPATH Y THOR RGN [id number] SPONDYLOSIS 09-15-2016 [facility] MYELOPATH/R HOSPITALS ADICULPATHY LS RGN M546 PAIN IN 09-15-2016 [facility]ACIC SERV [facility] J069 ACUTE UPPER 09-12-2016 [facility] RESPIRATORY INC INFECTION UNSPECIFIED T45709 PAIN IN 09-08-2016 [facility] LEFT ELBOW PHYSICIANS GROUP J40 BRONCHITIS 09-06-2016 [facility] NOT N EMERGENCY SPECIFIED PHYS ACUTE OR CHRONIC R05 COUGH 09-06-2016 [facility] [place] [facility] R0602 SHORTNESS 09-06-2016 [facility] [place] OF BREATH RADIOLOGY M542 CERVICALGIA 08-29-2016 [facility] R51 HEADACHE 08-29-2016 [facility] [id number] CONTUSION 08-29-2016 [facility] OF SCALP PHYSICIANS, INITIAL PLLC ENCOUNTER C372DGF UNSPECIFIED 08-29-2016 [place] INJURY OF MEDICAL NECK IMAGING ASS INITIAL ENCOUNTER O09LWVA UNSPECIFIED 08-29-2016 [facility] INITIAL SERVICE ENCOUNTER D73583 PRIMARY 08-22-2016 [place] [place] OSTEOARTHRI MEDICAL TIS LEFT IMAGING ASS ELBOW [...] USE 08-15-2016 [facility] INC Z794 NURSING HOME 08-15-2016 [facility] CURRENT USE [facility] OF INSULIN INC R8299 OTHER 08-07-2016 [facility] ABNORMAL [facility] FINDINGS IN INC URINE Z82064 MIGRAINE 08-04-2016 [facility] UNS PHYSICIANS, INTRACTABLE PLLC W/STATUS MIGRAINOSUS Q27017 UNSPECIFIED 08-04-2016 [facility] WITH ACUTE LLC EXACERBATIO N [id number] CONTUSION 08-04-2016 [facility] EYEBALL & PHYSICIANS, ORBITAL PLLC TISSUES RT EYE INIT N70963 ELEVATED 07-26-2016 [facility] WHITE BLOOD [facility] CELL COUNT HOSPITAL P UNSPECIFIED K529 NONINFECTIV 07-14-2016 [facility] E [facility] GASTROENTER INC ITIS & COLITIS UNS I509 HEART 07-12-2016 [facility] UNSPECIFIED HOSPITAL P R0789 OTHER CHEST 07-12-2016 [facility] PAIN PHYSICIANS, [facility] R079 CHEST PAIN 07-12-2016 [facility] UNSPECIFIED [facility] HOSPITAL P I272 OTHER 07-05-2016 [facility]ONDARY [facility] PULMONARY INC HYPERTENSIO N I5030 UNSPECIFIED 07-05-2016 [facility] DIASTOLIC [facility] CONGESTIVE INC HEART FAILURE I959 HYPOTENSION 07-05-2016 [facility] UNSPECIFIED INC E109 TYPE 1 07-04-2016 [facility] P WITHOUT COMPLICATIO NS I9589 OTHER 07-04-2016 [facility] HYPOTENSION PHYSICIANS, PLLC R400 SOMNOLENCE 07-04-2016 [facility] PHYSICIANS, PLLC R55 SYNCOPE AND 07-04-2016 [facility] COLLAPSE PHYSICIANS, [facility] G65942 OTHER LONG 07-04-2016 [facility] TERM [facility] CURRENT INC DRUG THERAPY G8929 OTHER 06-29-2016 [facility] CHRONIC [facility] PAIN INC M4807 SPINAL 06-29-2016 [facility] STENOSIS [facility] LUMBOSACRAL INC REGION R042 HEMOPTYSIS 06-28-2016 [facility] R918 OTHER 06-28-2016 [facility] NONSPECIFIC [facility] ABNORMAL INC FINDING OF LUNG FIELD P98787 TYPE 2 06-21-2016 [facility] DIABETES [facility] MELLITUS INC W/HYPOGLYCE NIKOLAY W/O COMA M5432 SCIATICA 06-13-2016 [facility] LEFT SIDE PHYSICIANS, [facility] M5442 LUMBAGO 06-13-2016 [facility] WITH PHYSICIANS, SCIATICA PLL LEFT SIDE D62855 TYPE 2 06-12-2016 [facility] MELLITUS MEDICAL WITH FOOT EQUIPME ULCER L16695 TYPE 2 06-12-2016 [facility] MELLITUS MEDICAL WITH OTHER EQUIPME SKIN ULCER G894 CHRONIC 06-12-2016 [facility] PAIN PHYSICIANS SYNDROME GROUP M4307 SPONDYLOLYS 06-12-2016 [facility] IS PHYSICIANS LUMBOSACRAL GROUP REGION 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 MEDICAL UNSPECIFIED IMAGING ASS N200 CALCULUS OF 06-06-2016 [facility] [place] KIDNEY [facility] N3000 ACUTE 06-06-2016 [facility] CYSTITIS PHYSICIANS, WITHOUT PLLC HEMATURIA N390 URINARY 06-06-2016 [facility] TRACT PHYSICIANS, INFECTION PLLC SITE NOT SPECIFIED R531 WEAKNESS 06-06-2016 [facility] R634 ABNORMAL 06-06-2016 [facility] [place] WEIGHT LOSS MEDICAL IM[facility]ING ASS J050 ACUTE 05-18-2016 [facility] OBSTRUCTIVE PHYSICIANS, LARYNGITIS PLLC CROUP L299 PRURITUS 05-18-2016 [facility] UNSPECIFIED PHYSICIANS, PLLC M5127 OTH 05-17-2016 [place] INTERVERTEB MEDICAL RAL DISC IMAGING ASS DISPLACEMEN T LS REGION M5136 OTH 05-17-2016 [place] 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 M545 LOW BACK 05-17-2016 [place] PAIN MEDICAL IMAGING ASS X96961 PAIN IN 05-13-2016 [place] RIGHT KNEE MEDICAL IMAGING ASS X5734ZH CONTUSION 05-13-2016 [facility] OF RIGHT PHYSICIANS, KNEE PLLC INITIAL ENCOUNTER Y48187 MIGRAINE 05-09-2016 [facility] W/O AURA PHYSICIANS, NOT INTRACT PLLC W/O STAT MIGRAIN B45444 PAIN IN 05-08-2016 [facility] RIGHT HIP [facility] INC B351 TINEA 04-13-2016 [facility] UNGUIUM FOOT & ANKLE CE I7090 UNSPECIFIED 04-13-2016 [place] FOOT & ATHEROSCLER ANKLE CE OSIS W90128 PAIN IN 04-13-2016 [facility] UNSPECIFIED FOOT & LIMB ANKLE CE R0781 PLEURODYNIA 03-31-2016 [facility] R52 PAIN 03-31-2016 [facility] UNSPECIFIED AMBULANCE SERVICE K28276Y CONTUSION 03-31-2016 [facility] UNS FRONT PHYSICIANS, WALL THORAX PLLC INITIAL ENCNTR P642SXQ UNSPECIFIED 03-31-2016 [place] INJURY OF MEDICAL THORAX IMAGING ASS INITIAL ENCOUNTER L0291 CUTANEOUS 03-20-2016 [facility] ABSCESS [facility] UNSPECIFIED INC D98499D CONTUSION 03-17-2016 [facility] LEFT FRONT PHYSICIANS, WALL THORAX PLLC INITIAL ENC M00883N CONTUSION 03-17-2016 [facility] OF LEFT PHYSICIANS, SHOULDER PLLC INITIAL ENCOUNTER P13612 NON-PRSS 03-14-2016 [facility] CHRN ULCER PHYSICIANS SKIN OTH GROUP SITES UNS SEVERITY J58529 CELLULITIS 03-09-2016 [facility] OF [facility] ABDOMINAL INC WALL T6678IR OTHER 03-09-2016 [facility] COMPLICATIO PHYSICIANS, NS PROC NEC PLLC INITIAL ENCOUNTER E049 NONTOXIC 02-17-2016 [facility] GOITER PHYSICIANS UNSPECIFIED GROUP R1310 DYSPHAGIA 02-17-2016 [facility] UNSPECIFIED PHYSICIANS GROUP L77988D UNS FOREIGN 02-17-2016 [facility] BODY PHYSICIANS LARYNX CAUS GROUP OTH INJURY INIT ENC I30698 PAIN IN 02-10-2016 [place] LEFT HIP MEDICAL IMAGING ASS C582QYE STRAIN 02-10-2016 [facility] MUSCLE FASC [facility] & TENDON INC NECK LEVL INIT ENC H7398LF CONTUSION 02-10-2016 [facility] OF LEFT HIP [facility]OS[facility] INITIAL INC ENCOUNTER P18583C UNSPECIFIED 02-10-2016 [place] INJURY MEDICAL LEFT HIP IMAGING ASS INITIAL ENCOUNTER R34362 UNSPECIFIED 02-07-2016 [facility] KERATITIS LEFT EYE R221 LOCALIZED 02-05-2016 [facility] SWELLING [facility] MASS AND INC LUMP NECK R4702 DYSPHASIA 02-03-2016 [facility] INC R5383 OTHER 06-15-2015 [facility] FATIGUE [facility] INC U94380K CONTUSION 06-03-2015 [facility] RT FRONT PHYSICIANS, WALL THORAX PLLC INITIAL ENCOUNTER K21309 PAIN IN 05-29-2015 [place] RIGHT WRIST MEDICAL IMAGING ASS Q32286 PAIN IN 05-29-2015 [place] UNSPECIFIED MEDICAL HIP IMAGING ASS L86961 PAIN IN 05-29-2015 [place] LEFT KNEE MEDICAL IMAGING ASS N9647KT CONTUSION 05-29-2015 [place] OF NOSE MEDICAL INITIAL IMAGING ASS ENCOUNTER J6756BT CONTUSION 05-29-2015 [facility] OTHER PART PHYSICIANS, OF HEAD PLLC INITIAL ENCOUNTER V05223V UNSPECIFIED 05-29-2015 [facility] SPRAIN [facility] RIGHT WRIST INC INITIAL ENCOUNTER T6969OS SPRAIN 05-29-2015 [facility] UNSPECIFIED [facility] SITE LT INC KNEE INITIAL ENCNTR Z043 ENCOUNTER 05-29-2015 [place] EXAM & MEDICAL OBSERVATION IMAGING ASS FOLLOW OTH ACCIDENT E1121 TYPE 2 05-25-2015 [facility] DIABETES [facility] MELLITUS [facility] P W/DIABETIC NEPHROPATHY I96 GANGRENE 05-25-2015 [facility] NOT ANESTH OF ELSEWHERE THE BLUE CLASSIFIED Z36025 NON-PRSS 05-25-2015 [facility] ULCR TORO & OTH PART RT DUBILIER FT W/UNS SEVERITY Q55575 OTHER ACUTE 05-25-2015 [facility] OSTEOMYELIT [facility] P IS RIGHT ANKLE AND FOOT Z9111 PATIENTS 05-25-2015 [facility] CE WITH HOSPITAL P DIETARY REGIMEN Z54232 NON-PRSS 05-24-2015 [facility] MEDICAL OTH PART LT IMAGING ASS FOOT UNS SEVERITY M2011 HALLUX 05-24-2015 [facility] CABALLERO PHYSICIANS, ACQUIRED [facility] RIGHT FOOT 7231 CERVICALGIA 03-06-2015 [facility] 7802 SYNCOPE AND 03-06-2015 [facility] [place] COLLAPSE [facility]ICAL [facility]ING ASS 7840 HEADACHE 03-06-2015 [facility] 00042 INJURY OF 03-06-2015 [place] FACE AND MEDICAL NECK OTHER IMAGING ASS AND UNSPECIFIED 17839 ACUTE PAIN 03-05-2015 [facility] DUE TO AMBULANCE TRAUMA SERVICE 21414 PAIN IN 03-05-2015 [place] JOINT MEDICAL PELVIC IMAGING ASS REGION AND THIGH 8470 NECK SPRAIN 03-05-2015 [facility] AND STRAIN PHYSICIANS, PLLC 920 CONTUSION 03-05-2015 [facility] OF FACE PHYSICIANS, [facility] AND [facility] NECK EXCEPT EYE E8889 UNSPECIFIED 03-05-2015 [facility] SERV[facility] 7881 DYSURIA 02-24-2015 [place] [address] DIAB W/O 02-09-2015 [facility] COMP TYPE I HOME [JUV] NOT MEDICAL STATED EQUIPME UNCNTRL 16251 OBSTRUCTIVE 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 EQUIPME 76462 EXTRINSIC 02-09-2015 [facility] ASTHMA, HOME UNSPECIFIED MEDICAL EQUIPME 19944 DIAB W/OTH 02-03-2015 [facility] MANIFESTS [facility] TYPE I INC [JUV] NOT UNCNTRL 4019 UNSPECIFIED 02-03-2015 [facility] ESSENTIAL [facility] HYPERTENSIO INC N 4139 OTHER AND 02-03-2015 [facility] UNSPECIFIED [facility] ANGINA INC PECTORIS 496 CHRONIC 02-03-2015 [facility] AIRWAY [facility] OBSTRUCTION INC NEC 64317 OTHER 02-03-2015 [facility] MALAISE AND [facility] FATIGUE INC V5867 LONG-TERM 02-03-2015 [facility] USE OF [facility] INSULIN INC 7906 OTHER 02-01-2015 [facility] ABNORMAL [facility] BLOOD INC CHEMISTRY V7389 SPECIAL 02-01-2015 [facility] SCREENING [facility] EXAMINATION INC OTH SPEC VIRAL DZ 7295 PAIN IN 01-06-2015 [place] SOFT MEDICAL TISSUES OF IMAGING ASS LIMB 14571 SWELLING OF 01-06-2015 [place] LIMB MEDICAL IMAGING ASS 7823 EDEMA 01-06-2015 [facility] INC 84321 CHEST PAIN 12-31-2014 [place] UNSPECIFIED MEDICAL IMAGING ASS 76073 PAIN IN 12-17-2014 [facility] MEDICAL SHOULDER IMAGING ASS REGION 43652 PAIN IN 12-17-2014 [facility], MEDICAL FOREARM IMAGING ASS 25470 PAIN IN 12-17-2014 [place] JOINT, MEDICAL LOWER LEG IMAGING ASS 8408 SPRAIN&STRA 12-17-2014 [facility] IN OTH SPEC [facility]OS[facility] SITES INC SHOULDER&UP PER ARM 8409 SPRAIN&STRA 12-17-2014 [facility] IN UNSPEC PHYSICIANS, SITE PLLC SHOULDER&UP PER ARM 71941 SPRAIN AND 12-17-2014 [facility] STRAIN OF [facility] UNSPECIFIED INC SITE OF WRIST 8449 SPRAIN&STRA 12-17-2014 [facility] IN OF [facility]OS[facility] UNSPECIFIED INC SITE OF KNEE&LEG 9221 CONTUSION 12-17-2014 [facility] OF CHEST [facility] WALL INC 57559 OTHER 12-17-2014 [place] INJURY OF MEDICAL CHEST WALL IMAGING ASS 57322 OTHER 12-17-2014 [place] INJURY OF MEDICAL OTHER SITES IMAGING ASS OF TRUNK 9592 INJURY 12-17-2014 [place] OTHER&UNSPE MEDICAL CIFIED IMAGING ASS SHOULDER&UP PER ARM 9593 INJURY 12-17-2014 [place] OTHER&UNSPE MEDICAL CIFIED IMAGING ASS ELBOW FOREARM&WRI ST 9597 INJURY 12-17-2014 [place] OTHER&UNSPE MEDICAL CIFIED KNEE IMAGING ASS LEG ANKLE&FOOT V714 OBSERVATION 12-17-2014 [place] FOLLOWING MEDICAL OTHER IMAGING ASS ACCIDENT 5718 OTHER 12-16-2014 [facility] CHRONIC SERV NONALCOHOLI FOUNDATION C LIVER DISEASE 41948 ABDOMINAL 12-16-2014 [facility] PAIN RIGHT SERV UPPER FOUNDATION QUADRANT 7892 SPLENOMEGAL 12-16-2014 [facility] Y SERV [facility]OUNDATION 2512 HYPOGLYCEMI 11-25-2014 [facility] A, [facility] HOS[facility] UNSPECIFIED INC 45234 SHORTNESS 11-11-2014 [facility] MEDICAL OF BREATH SERV FOUNDATION 51839 DIAB 10-23-2014 [facility] W/NEURO [facility] MANIFESTS INC TYPE II/UNS TYPE UNCNTRL 84441 UNSPECIFIED 10-23-2014 [facility] CELLULITIS [facility] AND INC ABSCESS OF TOE 10228 ULCER OF 10-23-2014 [facility] OTHER PART PATHOLOGY OF FOOT SERVICES 7224 DEGENERATIO 10-17-2014 [place] N OF MEDICAL CERVICAL IMAGING ASS INTERVERTEB RAL DISC 23102 DIAB W/O 09-27-2014 [facility] COMP TYPE [facility] II/UNS NOT INC STATED UNCNTRL 2724 OTHER AND 09-27-2014 [facility] UNSPECIFIED [facility] INC HYPERLIPIDE NIKOLAY 97111 OBESITY, 09-27-2014 [facility] UNSPECIFIED [place] INTERNAL MED 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 INC UNSPECIFIED 20001 ALTERED 09-27-2014 [facility] MENTAL [place] STATUS INTERNAL MED 7862 COUGH 09-27-2014 [facility] 53583 POISONING 09-27-2014 [facility] BY OPIUM , [place] UNSPECIFIED INTERNAL MED E8502 ACCIDENTAL 09-27-2014 [facility] POISN [facility] P ATED NARCOTICS 5180 PULMONARY 09-26-2014 [facility] [place] COLLAPSE MEDICAL IMAGING ASS 42000 FEVER 09-26-2014 [place] UNSPECIFIED MEDICAL IMAGING ASS 7869 OT 09-26-2014 [place] SYMPTOMS MEDICAL INVOLVING IMAGING ASS RESPIRATORY SYSTEM&CHES T V053 NEED PROPH 09-07-2014 [place] MEDICAL VACC&INOCUL SERV AT AGAINST [facility] VIRAL HEP 17916 CONTUSION 09-03-2014 [facility] P 90318 CONTUSION 09-03-2014 [facility] P 69605 CLOSED 05-01-2014 [facility] FRACTURE PHYSICIANS METACARPAL GROUP BONE SITE UNSPECIFIED E8888 OTHER FALL 04-28-2014 [facility] V1582 PERS HX 04-28-2014 [facility] TOBACCO USE [facility] PRESENTING INC HAZARDS HEALTH 2104 BENIGN 04-27-2014 EAR, NOSE NEOPLASM AND THROAT OTHER&UNSPE SPECIAL CIFIED PARTS MOUTH 87084 DYSFUNCTION 04-27-2014 EAR, NOSE OF AND THROAT EUSTACHIAN SPECIAL TUBE 24790 OTOGENIC 04-27-2014 EAR, NOSE PAIN AND THROAT SPECIAL 05230 DYSPHAGIA 04-27-2014 EAR, NOSE UNSPECIFIED AND THROAT SPECIAL 4770 ALLERGIC 04-13-2014 [facility] RHINITIS LUIS ALFREDO DUE TO POLLEN 4778 ALLERGIC 04-13-2014 [facility] RHINITIS LUIS ALFREDO DUE TO OTHER ALLERGEN 4772 ALLERGIC 04-06-2014 [facility] RHINITIS LUIS ALFREDO DUE TO ANIMAL HAIR AND DANDER 77063 CHRONIC 04-06-2014 [facility] OBSTRUCTIVE LUIS ALFREDO ASTHMA UNSPECIFIED 12945 SENSORINEUR 04-03-2014 EAR, NOSE AL HEARING AND THROAT LOSS SPECIAL BILATERAL 2728 OTHER 03-19-2014 [facility] 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 09713 DIAB 03-16-2014 [facility] TYPE II/UNS NOT UNCNTRL 5939 UNSPECIFIED 03-03-2014 [facility] DISORDER N EMERGENCY OF KIDNEY PHYS AND URETER 5990 URINARY 03-03-2014 [facility] TRACT N EMERGENCY INFECTION PHYS SITE NOT SPECIFIED 83852 OTHER 01-28-2014 [facility] DISORDER OF STOMACH AND DUODENUM 5715 CIRRHOSIS 01-28-2014 [facility] WITHOUT MENTION OF ALCOHOL 5723 PORTAL 01-28-2014 [facility] N V7651 SPECIAL 01-28-[address] [facility] NEOPLASMS COLON 2168 BENIGN 01-21-2014 [...] GOITER, 12-23-2013 [facility] UNSPECIFIED [facility] INC 68866 ABDOMINAL 12-15-2013 [facility] PAIN OTHER [facility] SPECIFIED INC SITE 30319 OTHER ACUTE 12-01-2013 [facility] 91707 ANEURYSM OF 12-01-2013 [facility] SPLENIC SERV ARTERY FOUNDATIO 5778 OTHER 12-01-2013 [place] [facility] SPECIFIED SERV DISEASE OF FOUNDATIO PANCREAS 50733 DIARRHEA 12-01-2013 [facility] 33195 ABDOMINAL 12-01-2013 [place] [facility] PAIN, SERV UNSPECIFIED FOUNDATIO SITE 7948 NONSPECIFIC 12-01-2013 [place] MED[facility] ABNORMAL SERV RESULTS FOUNDATIO LIVR FUNCTION STUDY V762 SCREENING 11-19-2013 [facility] MALIGNANT NEOPLASM OF THE CERVIX 52519 OTHER CHEST 11-08-2013 [facility] PAIN N EMERGENCY PHYS 72082 OTHER 11-08-2013 [facility] [place] NONSPECIFIC MEDICAL ABNORMAL IMAGING ASS FINDING OF LUNG FIELD 7242 LUMBAGO 09-23-2013 [facility] INC V571 OTHER 09-23-2013 [facility] PHYSICAL [facility] THERAPY INC V5869 LONG-TERM 09-17-2013 [facility] (CURRENT) [facility] USE OF INC OTHER MEDICATIONS 7226 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 UNSPEC 69596 DEGEN 09-11-2013 [place] [facility]/LUMB SERV [facility]SACRAL FOUNDATIO INTERVERTEB RAL DISC 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 09-02-2013 [facility] INCONTINENC [facility] E [facility]GE [facility] HOSPITAL P STRESS 92050 MORBID 08-25-2013 [facility] OBESITY [facility] P 4409 GENERALIZED 08-25-2013 [facility] UNSPECIFIED IMAGING ASS ATHEROSCLER OSIS 4471 STRICTURE 08-25-2013 [place] OF [facility] 4830 PNEUMONIA 08-25-2013 [facility] DUE TO [facility] P PNEUMONIAE 81304 SCOLIOSIS , 08-25-2013 [place] IDIOPATHIC [facility]ICAL IMAGING ASS V8541 BODY MASS 08-25-2013 [facility] 40.0-44.9 [facility] P ADULT 4829 UNSPECIFIED 08-23-2013 [facility] BACTERIAL [facility]ERGENCY PNEUMONIA SERVICES 08326 OTHER 08-23-2013 [place] DISEASES OF MEDICAL LUNG NOT IMAGING ASS ELSEWHERE CLASSIFIED 11277 DEGEN 08-23-2013 [place] THORACIC/TH MEDICAL ORACOLUMBAR IMAGING ASS INTERVERTEB RAL DISC 3540 CARPAL 08-20-2013 [facility] MITCH 7238 OTHER 08-20-2013 [facility] SYNDROMES [facility]UROLOGY AFFECTING CENTER MITCH CERVICAL REGION 54583 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-2013 [place]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 76321 SPINAL STEN 08-18-2013 [place] LUMB REG MEDICAL W/O IMAGING ASS NEUROGENIC CLAUDICATIO N 8404 ROTATOR 07-26-2013 [facility] CUFF [facility] AND STRAIN INC 5989 UNSPECIFIED 05-06-2013 [facility] URETHRAL [facility] STRICTURE [facility] P 88058 UNSPECIFIED 04-29-2013 [facility] URETHRITIS [facility] P 5952 OTHER 04-08-2013 [facility] CHRONIC [facility] CYSTITIS [facility] P 60293 DIAB W/O 04-03-2013 [facility] MENTION [facility] COMP TYPE I INC [JUV TYPE] UNCNTRL 49986 UNSPECIFIED 04-03-2013 [facility] N 38621 OTHER 03-31-2013 [facility] CHRONIC [facility] ALLERGIC CONJUNCTIVI TIS 68612 NUCLEAR 03-18-2013 [place] [facility] 3669 UNSPECIFIED 03-18-2013 [facility] CATARACT [facility] INC V148 PERSONAL 03-18-2013 [facility] HISTORY [facility] ALLERGY OTH INC SPEC MEDICINAL AGTS 2689 UNSPECIFIED 02-25-2013 [facility] VITAMIN D [facility] DEFICIENCY 4919 UNSPECIFIED 02-04-2013 [facility] CHRONIC [facility] BRONCHITIS 95495 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 [facility] 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[facility] STATUS ASTHMATICUS 91905 MIGRAINE 01-30-2013 [facility] W/O [facility] INTRACT W/O INTERNAL STATUS MED MIGRAINOSUS 46882 ABDOMINAL 01-23-2013 [facility] PAIN, LEFT PHYSICIANS LOWER LA QUADRANT 460 ACUTE 01-22-2013 [facility] NASOPHARYNG [facility] ITIS INTERNAL MEDI 61992 VISUAL 01-14-2013 [facility] 3688 OTHER 01-14-2013 [place] SPE[facility] VISUAL INSTITUTE DISTURBANCE S 490 BRONCHITIS 12-28-2012 [facility] NOT VALLEY SPECIFIED INTERNAL ACUTE OR MED CHRONIC 5110 PLEURISY 12-20-2012 [facility] MENTION INC EFFUS/[place] [address] PAINFUL 12-20-2012 [facility] RESPIRATION [place] INTERNAL MED 85303 DIAB W/O 12-17-2012 M E D MENTION SUPPLIES COMP TYPE II/UNS TYPE UNCNTRL 65546 URINARY 11-27-2012 [facility] FREQUENCY [facility]LEY INTERNAL MEDI 6279 UNSPECIFIED 11-13-2012 [facility] HOSP MENOPAUSAL& INC POSTMENOPAU HERBERT DISORDER 35666 PATELLAR 11-13-2012 [facility] TENDINITIS PHYSICIANS GROUP 05590 ACHILLES 11-13-2012 [facility] OR HOME TENDINITIS MEDICAL EQUIPME 35883 OTHER 11-13-2012 [facility] SYNOVITIS PHYSICIANS AND GROUP TENOSYNOVIT IS 7289 UNSPECIFIED 11-13-2012 [facility] DISORDER PHYSICIANS OF MUSCLE GROUP LIGAMENT&FA SCIA 29391 DISORDER OF 11-13-2012 [place] [facility] ASS UNSPECIFIED V4981 ASYMPTOMATI 11-13-2012 [facility] MEDICAL POSTMENOPAU IMAGING ASS HERBERT STATUS 63413 OSTEOARTHRO 11-07-2012 [facility] UNSPEC MEDICAL WHETHER IMAGING ASS GEN/LOC LOWER LEG 4099 UNSPECIFIED 10-17-2012 [facility] SINUSITIS [facility] INTERNAL MEDI 6931 DERMATITIS 09-30-2012 [facility] DUE TO FOOD LUIS ALFREDO TAKEN INTERNALLY V727 DIAGNOSTIC 09-30-2012 [facility] SKIN AND LUIS ALFREDO SENSITIZATI ON TESTS 94108 URGE 08-29-2012 [facility] P 2449 UNSPECIFIED 08-28-2012 [facility] HYPOTHYROID INTERNAL ISM MEDI 76495 OTHER 08-23-2012 [place] SPECIFIED MEDICAL DISORDERS IMAGING ASS OF BLADDER V7612 OTHER 08-23-2012 [place] SCREENING MEDICAL MAMMOGRAM IMAGING ASS 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-2012 [place] 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 0419 BACTERIAL 08-08-2012 [facility] INFECTION [place] UNSPECIFIED INTERNAL CCE & UNS MED SITE 12147 DEHYDRATION 08-08-2012 [facility] [place] INTER[facility] MED V7231 ROUTINE 08-05-2012 [facility] SONIA 4720 CHRONIC 08-02-2012 [facility] RHINITIS [facility] INTERNAL MEDI 60535 MASTODYNIA 08-02-2012 [facility] INTERNAL MEDI 4011 ESSENTIAL 07-09-2012 [facility] HYPERTENSI[facility]SC N, BENIGN 7964 OTHER 07-05-2012 INPATIENT ABNORMAL CARE, [facility] CLINICAL FINDING 80522 COR 07-01-2012 INPATIENT ATHEROSLERO CARE, [facility] UNSPEC TYPE VESSEL UPPER SKAGIT/ELSA T 73841 UNSPECIFIED 06-19-2012 [facility]FE[facility] SERVICES IN CCE & UNS SITE 23196 CONTUSION 06-14-2012 [facility] INC 9233 CONTUSION 06-14-2012 [facility] INC 72239 CONTUSION 06-14-2012 [facility] INC 9599 INJURY 06-14-2012 [place] OTHER AND MEDICAL UNSPECIFIED IMAGING ASS UNSPECIFIED SITE 4659 ACUTE URIS 06-05-2012 [facility] UNSPECIFIED CENTER SITE 8489 UNSPECIFIED 06-05-2012 [facility] SPRAIN AND CENTER STRAIN V8542 BODY MASS 05-23-2012 [facility] 45.0-49.9 CENTER ADULT 69583 ATROPHIC 05-20-2012 [facility] GASTRITIS SURGIAL WITHOUT ASSOCIATE MENTION OF HEMORRHAGE 37564 NAUSEA WITH 05-20-2012 [facility] VOMITING SURGIAL ASSOCIATE V1279 PERSONAL 05-20-2012 [facility] HISTORY OTH PHYS SURG DISEASES CTR DIGESTIVE DISEASE 4660 ACUTE 05-05-2012 [facility] PHYS 92846 ASTHMA, 05-05-2012 [facility] UNSPECIFIED N [facility]ERGENCY , PHYS UNSPECIFIED STATUS 1129 CANDIDIASIS 05-03-2012 [facility] UNSPECIFIED CENTER SITE 4619 ACUTE 05-03-2012 [facility] SINUSITIS, HEALTHCARE UNSPECIFIED CENTER V0481 NEED 04-17-2012 [facility]HYLACTI [facility] C CENTER VACCINATION &INOCULATIO N FLU 45875 ESOPHAGEAL 04-16-2012 [facility] REFLUX SURGIAL ASSOCIATE 5559 REGIONAL 04-16-2012 [facility] ENTERITIS SURGIAL OF ASSOCIATE UNSPECIFIED SITE 20078 POLYURIA 03-29-2012 [facility] [employer] 89802 UNSPECIFIED 03-18-2012 [facility] VAGINITIS PSC AND VULVOVAGINI TIS 6235 LEUKORRHEA 03-18-2012 [facility] NOT PSC SPECIFIED INFECTIVE 6248 OTH SPEC 03-17-2012 INPATIENT NONINFLAMMA CARE, PLLC TORY DISORDER VULVA&PERIN EUM 31477 LOSS OF 02-20-2012 C SOPHIE PARAM LYONS MD [facility] 72927 UNSPECIFIED 02-14-2012 [facility] ARTHROPATHY INTERNAL MULTIPLE MEDI SITES 72994 ABDOMINAL 02-14-2012 [facility] PAIN, VALLEY GENERALIZED INTERNAL MEDI V741 SCREENING 02-14-2012 [facility] EXAMINATION VALLEY FOR INTERNAL PULMONARY MEDI TUBERCULOSI S 38116 ABDOMINAL 02-07-2012 [facility] PAIN, LEFT [facility] UPPER INC QUADRANT 09026 VASCULAR 01-06-2012 [facility] ES OF CONJUNCTIVA 70496 SWELLING OR 01-06-2012 [facility] EYE 34093 REDNESS OR 01-06-2012 [facility] 40870 OTHER 01-06-2012 [place] MEDICAL DISEASES OF SERV NASAL FOUNDATIO CAVITY AND SINUSES 0539 HERPES 12-14-2011 [facility] ZOSTER VAL[facility] WITHOUT INTERNAL MENTION OF MED COMPLICATIO N 7891 HEPATOMEGAL 12-07-2011 [place] [facility] 35258 PAIN IN 11-11-2011 [facility] JOINT, VALLEY ANKLE AND INTERNAL FOOT MED 58940 TRANSIENT 11-10-2011 [facility]THROPATHY [facility] ANKLE AND INC FOOT 6826 CELLULITIS 10-19-2011 [facility] AND ABSCESS VALLEY OF LEG INTERNAL EXCEPT FOOT MED 4780 HYPERTROPHY 10-12-2011 [facility] OF NASAL LUIS ALFREDO TURBINATES 9164 HIP THI 10-03-2011 [facility] LEG&ANK VALLEY INSECT BITE INTERNAL MED NONVENOMOUS W/O INF E9064 BITE OF 10-03-2011 [facility] NONVENOMOUS VALLEY ARTHROPOD INTERNAL MED 36981 TRANSIENT 09-25-2011 [facility] VISUAL LOSS [facility] INC 50640 SCOTOMA 09-25-2011 [facility] INVOLVING [facility] CENTRAL INC AREA IN VISUAL FIELD 15253 DISORDERS 09-25-2011 [facility] VISUAL [facility] CORTEX INC ASSOCIATED W/NEOPLASMS 7842 SWELLING 09-25-2011 [facility] OR MEDICAL LUMP IN IMAGING ASS HEAD AND NECK 87913 BORDERLINE 09-15-2011 [facility] ALTAMIRANO OPEN JAM ANGLE BL FINDINGS LOW RSK 73929 CHRONIC 09-07-2011 [facility] OBSTRUCTIVE LUIS ALFREDO 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EXACERBATIO N 73793 OBSTRUCTIVE 08-30-2011 [facility] CHRONIC VALLEY BRONCHITIS INTERNAL WITH MED EXACERBATIO N 4293 CARDIOMEGAL 08-17-2011 [facility] 24043 CHRONIC 08-09-2011 [facility] TENSION JAM TYPE HEADACHE 84394 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 60465 DIAB 06-25-2011 [facility] W/RENAL [facility] MANIFESTS INC TYPE I [JUV TYPE] UNCNTRL 12773 OBST 06-25-2011 [facility] CHRONIC [facility] BRONCHITIS INC W/ACUTE BRONCHITIS 57668 NAUSEA 06-25-2011 [facility] EM[facility]ENC[facility] SERVICES 7841 THROAT PAIN 06-06-2011 [place] MEDICAL SERV FOUNDATIO 35174 OTHER 05-25-2011 [facility] SYMPTOMS [facility] INVOLVING INC HEAD AND NECK 4721 CHRONIC 05-15-2011 EAR, NOSE PHARYNGITIS AND THROAT SPECIAL 462 ACUTE 05-09-2011 [facility] PHARYNGITIS [place] INTERNAL MED 36680 UNSPECIFIED 04-12-2011 [facility] PHYSICIANS ARTHROPATHY LA ANKLE AND FOOT 6989 UNSPECIFIED 03-28-2011 [facility] PRURITIC [facility] DISORDER INC 6929 CONTACT 03-27-2011 DERMATOLOGY DERMATITIS& OTHER CONSULTANTS ECZEMA DUE PSC UNSPEC CAUSE 46108 WHEEZING 03-20-2011 [facility] 7391 NONALLOPATH 03-08-2011 [facility] JANET IC LESION OF CERVICAL REGION NEC 4548 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 SERVICES EXTREMITIES W/OTH COMPS 7827 SPONTANEOUS 02-23-2011 [facility] ECCHYMOSES [facility] INC 86684 CONTUSION 02-23-2011 [facility] OF THIGH EMERGENCY SERVICES 4439 UNSPECIFIED 02-17-2011 [place] PERIPHERAL MEDICAL VASCULAR IMAGING ASS DISEASE 1101 DERMATOPHYT 02-10-2011 [facility] OSIS OF NAIL 51314 DIAB 02-10-2011 [facility] W/NEURO MANIFESTS TYPE II/UNS NOT UNCNTRL 87697 DIAB 02-10-2011 [facility] W/PERIPH CIRC D/O TYPE II/UNS NOT UNCNTRL 22938 ABDOMINAL 01-18-2011 [place] PAIN RIGHT MEDICAL LOWER IMAGING ASS QUADRANT 26772 HYPERSOMNIA 12-27-2010 [facility] WITH SLEEP DEIDRA APNEA UNSPECIFIED 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 07459 OTHER 10-26-2010 [facility] ALTERATION [facility] OF INC CONSCIOUSNE SS 9953 ALLERGY 09-13-2010 [facility] UNSPECIFIED AMBULANCE NOT SERVICE ELSEWHERE CLASSIFIED V1272 PERSONAL 08-25-2010 [facility] HISTORY OF [facility] COLONIC INC POLYPS 38867 BACKGROUND 07-28-2010 [facility] VISION RETINOPATHY 87672 UNSPECIFIED 07-27-2010 [facility] INFECTIVE [facility] OTITIS INC EXTERNA 89892 HYPOXEMIA 06-27-2010 [place] [place] [facility] 5589 OTH&UNSPEC 10-12-2009 [facility] NONINFECTIO EMERGENCY US SERVICES GASTROENTER ASSOCIATES ITIS&COLITI S 64744 PAPANICOLAO 04-16-2009 PATHOLOGY & U SMEAR OF CYTOLOGY VAGINA WITH LAB ASC-US 96668 ABDOMINAL 04-14-2009 [facility] PAIN, [place] EPIGASTRIC INTERNAL MED 72508 ASTHMA 03-19-2009 [facility] UNSPECIFIED EMERGENCY WITH SERVICES EXACERBATIO ASSOCIATES N 7393 NONALLOPATH 03-17-2009 [place] LESION FAMILY OF LUMBAR CHIROPRACTI REGION NEC C 5999 UNSPECIFIED 03-09-2009 DONNIE DUEÑAS OF URETHRA&URI NARY TRACT 32397 OSTEOARTHRO 03-09-2009 Mamta DUEÑAS INVLV MX CHELSY [place] SITES BUT NOT SPEC GEN 09163 OTHER 02-18-2009 [facility] ABNORMAL EMERGENCY GLUCOSE SERVICES ASSOCIATES V5883 ENCOUNTER 01-25-2009 CARDIOLOG[facility] FOR ASSOCIATES THERAPEUTIC OF DRUG GOLDEN MEADOW MONITORING 4580 ORTHOSTATIC 01-14-2009 [facility] AMBULANCE HYPOTENSION SERVICE 38561 ASPHYXIA 01-14-2009 [place] [facility] 7336 TIETZES 12-16-2008 [facility] DISEASE [place] INTERNAL MED 31253 STOMATITIS 12-04-2008 BECK DUEÑAS MUCOSITIS UNSPECIFIED 9778 POISONING 11-26-2008 [facility] OTHER SPEC EMERGENCY DRUGS&MEDIC SERVICES INAL ASSOCIATES SUBSTANCES 73673 UNSPECIFIED 10-30-2008 EMERY DUEÑAS OF CHELSY [place] ANKLE SPRAIN AND STRAIN E8498 OTHER 10-28-[address] [place] [address] [facility] [facility] OF IMAGING OCCURRENCE ASSOCIATES E8859 FALL FROM 10-28-2008 [place] OTHER MEDICAL SLIPPING IMAGING TRIPPING OR ASSOCIATES STUMBLING 7873 FLATULENCE 10-21-2008 [place] MEDICAL ERUCTATION SERV AND GAS FOUNDATIO PAIN 17336 VOMITING 09-22-2008 [facility] EMERGENCY SERVICES ASSOCIATES 89407 VARIANTS 08-06-2008 ARNCARISSA, MIGRAINE CHELSY [place] NEC INTRACT MIGRAINE W/[place] [address]172 UNS 07-24-2008 ARNCARISSA, GASTRITIS&G CHELSY [place] ASTRODUODIT IS W/O MENTION HEMORR 96986 ABDOMINAL/P 05-25-2008 [facility] ELVIC [facility] INC MASS/LUMP UNSPEC SITE 58747 NEPHROTIC 04-27-2008 [facility] SYND W/OTH [facility] PATHAL LES INC DZ CLASS ELSW 29338 OTHER SPEC 04-15-2008 [place] MEDICAL GASTRITIS SERV WITHOUT FOUNDATIO MENTION HEMORRHAGE 24945 ERYTHEMA 03-04-2008 [facility] DUE TO BURN [facility] OF INC ABDOMINAL WALL 85661 BLISTERS 03-04-2008 RODRIGUEZ W/EPIDERMAL [employer] BURN ABD WALL 84295 DERMATITIS 02-23-2008 [facility] DUE TO [facility] OTHER INC RADIATION 51424 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-2007 [facility]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 15924 OTHER 12-18-2007 [facility]YSPNEA [facility] RESPIRATORY ABNORMALITI ES 7931 NONSPEC 12-18-2007 [facility] FIND RAD [facility] OTH EXAM HOSP BODY STRUCT LUNG FIELD 53316 NONSPECIFIC 12-18-2007 [facility] ABNORMAL [facility] ELECTROCARD HOSP IOGRAM V142 PERSONAL 12-18-2007 [facility] HISTORY OF [facility] ALLERGY TO HOSP SULFONAMIDE S 2443 OTHER 10-04-2007 [facility] IS PROF SERV 2810 PERNICIOUS 09-20-2007 [facility] ANEMIA [place] INTERNAL MED 7244 THORACIC/ANIL 09-17-2007 TIANNA HOFF NEURITIS/RA DICULITIS UNSPEC 7246 DISORDERS 09-17-2007 JASPAL HOFF SACRUM ERVIN Huffman 0340 STREPTOCOCC 09-12-2007 [facility] AL SORE [place] THROAT INTERNAL MED 4149 UNSPECIFIED 08-30-2007 [facility] CHRONIC [place] ISCHEMIC INTERNAL HEART MED DISEASE 3569 UNSPEC [...] 20 AI AT 61 09 09 D VT E 0 PH CH 10 AR AE [...] 01 30 30 RI 79 GH Ac NJ 00 -0 -2 .0 TE 42 AN [...] 01 30 30 RI 79 GH Ac NJ 00 -0 -1 .0 TE 42 AN [...] ti IN 12 8- 0- 00 43 VT ve IR 17 20 20 AI E 66 09 09 D JR 30 0 PH 0 AR WI MG M LL #3 IA CA 93 M PS 8 F UL E BI 00 02 08 06 30 30 RI 77 AR Ac SO 37 -1 -2 .0 TE 04 NO ti NJ 80 2- 7- 00 86 LD ve [...] 20 AI LI 70 09 09 D VT N 5 PH CH 50 AR AE [...] 00 30 30 RI 79 GH Ac NJ 00 -0 -1 .0 TE 42 AN [...] -1 -3 .0 TE 04 NO ti NJ 80 2- 0- 00 86 LD ve [...] 80 1- 0- 00 15 LD ve VT 21 20 20 AI DE 61 09 [...] -1 -0 .0 TE 04 NO ti NJ 80 2- 2- 00 86 LD ve [...] 4- 2- 00 SI 15 ON ve NJ 02 20 20 DE ED 20 09 [...] -1 -0 .0 TE 04 NO ti NJ 80 2- 4- 00 86 LD ve [...] AR M D #3 W 93 8 NJ 37 05 05 00 28 28 RI [...] ti LI 91 8- 1- 00 90 VT ve N 83 20 20 AI E [...] AN RA 30 09 09 D TO VT 5 PH NI DE AR O M [...] 09 D RI TA 1 PH CH VT AR AR N- M D CA #3 W FF 93 8 50 -3 25 -4 0 CI 00 04 04 00 20 10 RI 77 AR Ac NJ 17 -1 -2 .0 TE 97 NO [...] -1 -2 .0 TE 04 NO ti NJ 80 2- 3- 00 86 LD ve [...] -1 -2 .0 TE 04 NO ti NJ 80 2- 6- 00 86 LD ve [...] ti LI 91 8- 2- 00 90 VT ve N 83 20 20 AI E 70 71 08 09 D JR -3 1 PH 0 AR WI 10 M LL 0 #3 IA UN 93 M IT 8 F /M L AL BI 00 02 02 00 30 30 RI 77 AR Ac SO 37 -1 -2 .0 TE 04 NO ti NJ 80 2- 6- 00 86 LD ve OL 52 20 20 AI OL 39 09 09 D RI 3 PH CH FU AR AR MA M D RA #3 W TE 93 5 8 MG TA B CI 00 02 02 00 20 10 RI 77 AR Ac NJ 17 -1 -2 .0 TE 04 NO [...] 09 D RI TA 1 PH CH VT AR AR N- M D CA #3 [...] ti LI 91 8- 0- 00 90 VT ve N 83 20 20 AI E [...] AN RA 30 09 09 D TO VT 5 PH NI DE AR O M [...] -0 -0 .0 TE 32 KE ti NJ 80 6- 1- 00 28 VT ve OL 52 20 20 AI E [...] #3 W 93 TA 8 BL ET NJ 00 09 01 01 40 20 RI [...] 00 60 30 RI 76 AR Ac NJ 09 -1 -1 .0 TE 18 NO [...] 34 2- 0- 00 11 LD ve NJ 59 20 20 AI ED 31 08 [...] ti LI 91 8- 0- 00 90 VT ve N 83 20 20 AI E 70 71 08 08 D JR -3 1 PH 0 AR WI 10 M LL 0 #3 IA UN 93 M IT 8 F /M L AL BI 00 03 11 02 30 30 RI 72 MC Ac SO 37 -0 -2 .0 TE 32 KE ti NJ 80 6- 0- 00 28 VT ve OL 52 20 20 AI E [...] 08 D RI TA 1 PH CH VT AR AR N- M D CA #3 W FF 93 8 50 -3 25 -4 0 CI 00 09 10 00 20 10 RI 75 AR Ac NJ 17 -2 -0 .0 TE 17 NO [...] MC 93 G 8 TA BL ET NJ 00 09 09 00 40 20 RI [...] W MG 93 8 TA BL ET NJ 37 09 09 00 28 28 RI [...] 34 4- 1- 00 10 LD ve NJ 59 20 20 AI ED 31 08 [...] ti LI 91 1- 1- 00 61 VT ve N 83 20 20 AI E [...] ti LI 91 1- 8- 00 61 VT ve N 83 20 20 AI E [...] ti LI 91 1- 7- 00 61 VT ve N 83 20 20 AI E [...] MA MG CY /[address] NJ 00 06 07 00 40 10 RI [...] 82 5- 3- 00 76 Av ve NJ 07 20 20 AI ai IL 20 [...] ti TH 81 4- 2- 00 59 VT ve YR 80 20 20 AI E [...] 34 9- 5- 00 01 LD ve NJ 59 20 20 AI ED 31 08 [...] -0 -0 .0 TE 32 t ti NJ 80 6- 8- 00 28 Av ve [...] 00 20 10 RI 72 No Ac NJ 17 -1 -2 .0 TE 89 t [...] -0 -0 .0 TE 32 t ti NJ 80 6- 7- 00 28 Av ve [...] 25 4- 6- 00 61 Av ve NJ 03 20 20 AI ai IL 26 [...] Procedure DOS Code Location Performer Comment ECG 91188 [facility] ROUTINE [facility] ECG INC INC W/LEAST 12 LDS TRCG ONLY W/O I&R CREATINE 42455 [facility] KINASE 7 [facility] TOTAL INC INC THER 88583 [facility] PROPH/DX 7 [facility] NJX IV INC INC PUSH SINGLE/1S T SBST/DRUG ECG 32462 [facility] ROUTINE 7 [facility] ECG INC INC W/LEAST 12 LDS TRCG ONLY W/O I&R RHYTHM 10691 [facility] ECG 1-3 7 [facility] LEADS INC INC TRACING ONLY W/O I&[place] [address] [facility] TROPONIN 7 [facility] QUANTITAT INC INC ANNABELLA BLOOD 31861 [facility] COUNT 7 [facility] COMPLETE INC INC AUTO&AUTO DIFRNTL WBC SUSCEPTIB 98754 [facility] LTY STDY 7 [facility] ANTIMICRB INC INC IAL MICRO/AGA R DILUTJ URNLS DIP 79483 [facility] 7 [facility] STICK/TAB INC INC LET REAGENT AUTO MICROSCOP Y RADIOLOGI 67421 [facility] C EXAM 7 [facility] CHEST 2 INC INC VIEWS FRONTAL&L ATERAL THERAPEUT 65978 [facility] IC 7 [facility] INJECTION INC INC IV PUSH EACH NEW DRUG COMPREHEN 39896 [facility] SIVE 7 [facility] METABOLIC INC INC PANEL CREATINE 90992 [facility] KINASE MB 7 [facility] FRACTION INC INC ONLY INJECTION J2405 [facility] 7 [facility] ONDANSETR INC INC ON HCL PER 1 MG CULTURE 53451 [facility] BACTERIAL 7 [facility] INC INC QUANTTATI VE COLONY COUNT URINE CULTURE 18331 [facility] BCT 7 [facility] ISOL&PRSM INC INC PTV ID ISOLATE EA URINE THER 25736 [facility] PROPH/DX 7 [facility] NJX EA INC INC SEQL IV PUSH SBST/DRUG FAC CULTURE 68960 [facility] BACTERIAL 7 [facility] INC INC QUANTTATI VE COLONY COUNT URINE BLOOD 63150 [facility] COUNT 7 [facility] COMPLETE INC INC AUTO&[place] [address] [facility] FREE 7 [facility] [place] [address] [facility] THYROID 7 [facility] STIMULAT[place] [address] [facility] TRIIODOTH 7 [facility] YRONINE INC INC T3 FREE COLLECTIO 41474 [facility] N VENOUS 7 [facility] [place] [address] [facility] FREE 7 [facility] [place] [address] [facility] THYROID 7 [facility] STIMULATI INC INC NG HORMONE TSH OCCUPATIO 52026 [facility] NAL 7 [facility] THERAPY INC INC EVAL LOW COMPLEX 30 MINS APPL 88043 [facility] MODALITY 7 [facility] 1/> AREAS INC INC IONTOPHOR ESIS EA 15 MIN THERAPEUT 21535 [facility] IC PX 1/> 7 [facility] AREAS INC INC EACH 15 MIN EXERCISES HOSPITAL G0463 [facility] OUTPATIEN 7 [facility] T CLIN E E VISIT HOSPITALS HOSPITALS ASSESS & MGMT PT HOSPITAL G0463 [facility] OUTPATIEN 7 [facility] T CLIN INC INC VISIT ASSESS & MGMT PT IAADIADOO 55854 [facility] 7 [facility] INFLUENZA INC INC IAADIADOO 28694 [facility] 7 [facility] STREPTOCO INC INC CCUS GROUP A INJ J0702 [facility] BETAMETHA 7 PHYSICIAN SONE S GROUP ACETATE & PHOSPHATE 3 MG RADIOLOGI 16724 [facility] [place] SCALF C EXAM 7 RADIOLOGY CHEST 2 VIEWS FRONTAL&L ATERAL AMBULANCE A0429 [facility] SERVICE 7 AMBULANCE AMBULANCE BLS SERVICE SERVICE EMERGENCY TRANSPORT GROUND A0425 [facility] MILEAGE 7 AMBULANCE AMBUL[place] [address] [place] RPUDENCIO HEAD/BRAI 7 MEDICAL N W/[place] [address] [place] FLANNERY CERVICAL 7 MEDICAL SPINE W/O IMAGING CONTRAST ASS MATERIAL RADEX 09193 [facility] FLANNERY ELBOW 7 MEDICAL COMPLETE IMAGING MINIMUM 3 ASS VIEWS COMPREHEN 73743 [facility] SIVE 7 [facility] [address] [facility] AMYLASE 7 [facility] INC INC INJECTION J2405 [facility] 7 [facility] ONDANSETR INC INC ON HCL PER 1 MG LOCM Q9967 [facility] [phone] 7 [facility] MG/ML INC INC IODINE CONCENTRA TION PER ML CULTURE 14851 [facility] BACTERIAL 7 [facility] INC INC QUANTTATI VE COLONY COUNT URINE CULTURE 02535 [facility] BCT 7 [facility] ISOL&PRSM [place] [address] [facility] INFUSION 7 [facility] THERAPY/P INC INC ROPHYLAXI S /DX 1ST TO 1 HR BLOOD 67661 [facility] COUNT 7 [facility] COMPLETE INC INC AUTO&AUTO DIFRNTL WBC SUSCEPTIB 17042 [facility] LTY STDY 7 [facility] ANTIMICRB INC INC IAL MICRO/AGA R DILUTJ URNLS DIP 00079 [facility] 7 [facility] STICK/TAB INC INC [place] [address] [facility] LIPASE 7 [place] [address] [facility] ABDOMEN & 7 [facility] PELVIS INC INC W/CONTRAS T MATERIAL THERAPEUT 39496 [facility] IC 7 [facility] INJECTION INC INC IV PUSH EACH NEW DRUG SUSCEPTIB 78903 [facility] LTY STDY 7 MEM [facility] ANTIMICRB INC INC IAL MICRO/AGA R DILUTJ CULTURE 94651 [facility] BCT 7 [facility] ISOL&PRSM INC INC PTV ID ISOLATE EA URINE CULTURE 38079 [facility] BACTERIAL 7 [facility] INC INC QUANTTATI VE COLONY COUNT URINE PHRM Q0513 YOUR YOUR DISPENSIN 7 PHARMACY PHARMACY G FEE [facility] INHALATIO N RX; PER 30 DAYS THERAPEUT 05493 [facility] IC [facility] PROPHYLAC INC INC TIC/DX INJECTION SUBQ/IM ADMN SET A7003 YOUR YOUR SM VOL 7 PHARMACY PHARMACY NONFILTR [facility] PNEUMAT NEBULIZR DISPBL ALBUTEROL J7613 YOUR YOUR INHAL 7 PHARMACY PHARMACY NON-CP [facility] PROD THRU DME U DOSE 1 MG INJECTION J2405 [facility] ONDANSETR INC INC ON HCL PER 1 MG IADNA-DNA 47272 [facility] /RNA GI 7 [facility] PTHGN INC INC MULTIPLEX PROBE TQ 06-18 LACTOFERR 43597 [facility] IN FECAL 7 [facility] QUALITATI INC INC VE OVA&NOEL 67549 [facility] ITES [facility] DIRECT INC INC SMEARS CONCENTRA TION & ID RADIOLOGI 43668 [place] [facility] C EXAM 7 MEDICAL CHEST 2 IMAGING VIEWS ASS FRONTAL&[place] [address] [facility] TROPONIN 7 [facility] QUANTITAT INC INC ANNABELLA BLOOD 40404 [facility] COUNT 7 [facility] COMPLETE INC INC AUTO&AUTO DIFRNTL WBC APPLICATI 56165 [facility] ON 7 [facility] MODALITY INC INC 1/> AREAS HOT/COLD PACKS APPL 72630 [facility] MODALITY 7 [facility] 1/> AREAS INC INC ULTRASOUN D EA 15 MIN CREATINE 11058 [facility] KINASE 7 [facility] TOTAL INC INC ECG 97966 [facility] ROUTINE 7 [facility] ECG INC INC W/LEAST 12 LDS TRCG ONLY W/O I&R E-STIM G0283 [facility] 1/> AREAS 7 [facility] OTH THAN INC INC WND CARE PART TX PLAN ECG 02982 [facility] ROUTINE 7 PHYSICIAN ECG S, PLLC W/LEAST 12 LDS I&R ONLY COMPREHEN 59009 [facility] SIVE 7 [facility] METABOLIC INC INC PANEL CREATINE 51957 [facility] KINASE MB 7 [facility] FRACTION INC INC ONLY E-STIM G0283 [facility] 1/> AREAS 7 [facility] OTH THAN INC INC WND CARE PART TX PLAN APPL 56036 [facility] MODALITY 7 [facility] 1/> AREAS INC INC ULTRASOUN D EA 15 MIN APPLICATI 03593 [facility] ON 7 [facility] MODALITY INC INC 1/> AREAS HOT/COLD PACKS ECG 64740 [facility] ROUTINE 7 [facility] ECG INC INC W/LEAST 12 LDS TRCG ONLY W/O I&R DRUG TEST 22552 [facility] PRSMV 7 [facility] INSTRMNT INC INC CHEMISTRY ANALYZERS COMPREHEN 07398 [facility] SIVE 7 [facility] METABOLIC INC INC PANEL CREATINE 95474 [facility] KINASE MB 7 [facility] [place] [address] [facility] FREE 7 [facility] [place] [address] [facility] THYROID 7 [facility] STIMULATI INC INC NG HORMONE TSH ECG 84337 [facility] ROUTINE 7 PHYSICIAN ECG S, PLLC W/LEAST 12 LDS I&R ONLY CULTURE 23089 [facility] BACTERIAL 7 [facility] INC INC QUANTTATI VE COLONY COUNT URINE CULTURE 09804 [facility] BCT 7 [facility] ISOL&PRSM INC [place] [address] [facility] TROPONIN 7 [facility] QUANTITAT INC INC ANNABELLA DRUG TEST G0481 [facility] DEFINITV [address] [facility] [address] [address] ID INC INC METH P DAY 8-14 DRUG CL BLOOD 19853 [facility] GASES ANY 7 [facility] INC INC COMBINATI ON PH PCO2 PO2 CO2 HCO3 BLOOD 96892 [facility] COUNT 7 [facility] COMPLETE INC INC AUTO&AUTO DIFRNTL WBC SUSCEPTIB 59571 [facility] LTY STDY 7 [facility] ANTIMICRB INC INC IAL MICRO/AGA R DILUTJ URNLS DIP 78611 [facility] STICK/TAB INC INC LET REAGENT AUTO MICROSCOP Y DRUG TEST G0480 [facility] DEFINITV [address] [address] ID INC INC METH P DAY 1-7 DRUG CL CREATINE 19509 [facility] KINASE 7 [facility] TOTAL INC INC ECG 83727 [facility] ROUTINE 7 [facility] ECG INC INC W/LEAST 12 LDS TRCG ONLY W/O I&R E-STIM G0283 [facility] 1/> [facility] OTH THAN INC INC WND CARE PART TX PLAN APPL 14089 [facility] MODALITY 7 [facility] 1/> AREAS INC INC ULTRASOUN D EA 15 MIN APPLICATI 44597 [facility] ON 7 [facility] MODALITY INC INC 1/> AREAS HOT/COLD PACKS BLOOD 15627 [facility] COUNT 7 [facility] COMPLETE INC INC AUTO&AUTO DIFRNTL WBC E-STIM G0283 [facility] 1/> AREAS [facility] OTH THAN INC INC WND CARE PART TX PLAN APPLICATI 07385 [facility] ON 7 [facility] MODALITY INC INC 1/> AREAS HOT/COLD PACKS APPL 75977 [facility] MODALITY 7 [facility] 1/> AREAS INC INC ULTRASOUN D EA 15 MIN PHYSICAL 94931 [facility] THERAPY 7 [facility] EVALUATIO INC INC N MOD COMPLEX [address] THORAX 61266 LEONA BURTON W/O 7 [place]ICAL [place] [address] [facility] THYROXINE 6 [facility] TOTAL INC INC BLOOD 19985 [facility] COUNT 6 [facility] COMPLETE INC INC AUTO&AUTO DIFRNTL WBC RADIOLOGI 47872 [facility] C EXAM 6 [facility] CHEST 2 INC INC VIEWS FRONTAL&L ATERAL COLLECTIO 53961 [facility] N VENOUS 6 [facility] BLOOD INC INC VENIPUNCT URE COMPREHEN 69684 [facility] SIVE 6 [facility] [place] [address] [facility] THYROID 6 [facility] STIMULATI INC INC NG HORMONE TSH DRUG TST G0477 [facility] PRESUMP;C 6 [facility] PBL BEING INC INC READ DC OPT OBV ONLY THERAPEUT 49641 [facility] IC 6 [facility] PROPHYLAC INC INC TIC/DX INJECTION SUBQ/IM GLUC BLD 98246 [facility] GLUC MNTR 6 [facility] DEV INC INC CLEARED FDA SPEC HOME USE BLD GLU A4253 CRISTIN AMARAL TEST/REAG 6 [facility] BLD EQUIPME EQUIPME GLU MON-50 LANCETS A4259 CRISTIN AMARAL PER BOX 6 HOME HOME OF 100 MEDICAL MEDICAL EQUIPME EQUIPME SBSQ 23287 [facility] 6 PHYSICIAN SHANTHI CARE/DAY S [place] [address] [place] [address] [facility] ABDOMEN & 6 MEDICAL PELVIS IMAGING W/O ASS CONTRAST MATERIAL ECG 51063 BRANDON CHOWDHURY JR ROUTINE 6 [facility] W/LEAST P 12 LDS I&R ONLY RADIOLOGI 07170 [facility] 6 MEDICAL EXAMINATI IMAGING ON CHEST ASS SINGLE VIEW FRONTAL CRITICAL 64998 [facility] 6 PHYSICIAN ILL/INJUR S, PLLC ED PATIENT INIT 30-74 MIN INITIAL 18823 [facility] 6 PHYSICIAN SHANTHI CARE/DAY S GROUP 50 MINUTES BLOOD 15095 [facility] COUNT 6 [facility] COMPLETE INC INC AUTO&AUTO DIFRNTL WBC SUSCEPTIB 83506 BR[facility] T[facility] LTY STDY 6 [facility] ANTIMICRB INC INC IAL MICRO/AGA R DILUTJ URNLS DIP 59441 [facility] 6 [facility] STICK/TAB INC INC LET REAGENT AUTO MICROSCOP Y RADIOLOGI 51793 [facility] C EXAM 6 MEDICAL ANITA CHEST 2 IMAGING VIEWS ASS FRONTAL&L ATERAL CUL BACT 97836 [facility] XCPT 6 [facility] URINE INC INC BLOOD/STO OL AEROBIC ISOL CULTURE 96077 [facility] BACTERIAL 6 [facility] INC INC QUANTTATI VE COLONY COUNT URINE CULTURE 98332 [facility] BCT 6 [facility] ISOL&PRSM INC INC PTV ID ISOLATE EA URINE IAADI 50079 [facility] INFLUENZA 6 [facility] B VIRUS INC INC IAADI 00873 [facility] INFFLUENZ 6 [facility] A A VIRUS INC INC THERAPEUT 95254 [facility] IC 6 [facility] PROPHYLAC INC INC TIC/DX INJECTION SUBQ/IM COLLECTIO 89712 [facility] N VENOUS 6 [facility] BLOOD INC INC VENIPUNCT URE COMPREHEN 52883 [facility] SIVE 6 [facility] [place] [address] BR[facility] STREPTOCO 6 [facility] CCUS INC INC GROUP A 3D 17713 [facility] RENDERING 6 [facility] W/INTERP INC INC & POSTPROCE SS SUPERVISI ON MRI 16023 [facility] SPINAL 6 [facility] CANAL INC INC LUMBAR W/O CONTRAST MATERIAL RADIOLOGI 78700 [facility] [place] C 6 MEDICAL ANITA EXAMINATI IMAGING ON KNEE 3 ASS VIEWS THER 38412 [facility] PROPH/DX 6 [facility] NJX IV INC INC PUSH SINGLE/1S T SBST/DRUG THERAPEUT 84911 [facility] IC 6 [facility] INJECTION INC INC IV PUSH EACH NEW DRUG E-STIM G0283 [facility] 1/> AREAS 6 [facility] OTH THAN INC INC WND CARE PART TX PLAN APPLICATI 69574 [facility] ON 6 [facility] MODALITY INC INC 1/> AREAS HOT/COLD PACKS THERAPEUT 92413 BRANDONKATI TAYLOR IC PX 1/> 6 [facility] AREAS INC INC EACH 15 MIN EXERCISES PHYSICAL 18787 BAR[facility] T[facility] THERAPY 6 [facility] EVALUATIO INC INC N BLD GLU A4253 CRISTIN CRISTIN TEST/REAG 6 HOME [facility] BLD EQUIPME EQUIPME GLU MON-50 LANCETS A4259 CRISTIN CRISTIN PER BOX 6 HOME HOME OF 100 MEDICAL MEDICAL EQUIPME EQUIPME DEBRIDEME 66681 [facility] NT NAIL 6 FOOT & ANY ANKLE CE METHOD 6/> POTASSIUM 36737 [facility] SERUM 6 [facility] PLASMA/WH INC INC OLE BLOOD COLLECTIO 00539 [facility] N VENOUS 6 [facility] BLOOD INC INC VENIPUNCT URE COMPREHEN 79876 BR[facility] TAYLOR SIVE 6 [facility] METABOLIC INC INC PANEL RADEX 61727 [facility] ALL RIBS UNI 6 MEDICAL W/POSTERO IMAGING ANT CH ASS MINIMUM 3 VIEWS POTASSIUM 14139 BRANDONKATI TAYLOR SERUM 6 [facility] PLASMA/WH INC INC OLE BLOOD AMBULANCE A0429 [facility] SERVICE 6 AMBULANCE AMBULANCE BLS SERVICE SERVICE EMERGENCY TRANSPORT GROUND A0425 [facility] MILEAGE 6 AMBULANCE AMBULANCE PER SERVICE SERVICE STATUTE MILE BLOOD 67146 BR[facility] T[facility] COUNT 6 [facility] COMPLETE INC INC AUTO&AUTO DIFRNTL WBC COLLECTIO 76626 [facility] N VENOUS 6 [facility] BLOOD INC INC VENIPUNCT URE COMPREHEN 03159 [facility] SIVE 6 [facility] METABOLIC INC INC PANEL BLOOD 80453 BR[facility]ON TAYLOR COUNT 6 [facility] COMPLETE INC INC AUTO&AUTO DIFRNTL WBC RADEX 90893 [facility] SHOULDER 6 MEDICAL MEDICAL COMPLETE IMAGING IMAGING MINIMUM 2 ASS ASS VIEWS RADIOLOGI 97691 [place] [facility] C EXAM 6 MEDICAL CHEST 2 IMAGING VIEWS ASS FRONTAL&L ATERAL COLLECTIO 48253 [facility] N VENOUS 6 [facility] BLOOD INC INC VENIPUNCT URE COMPREHEN 52044 [facility] SIVE 6 [facility] METABOLIC INC INC PANEL RADEX 95444 [facility] T[facility] RIBS UNI 6 [facility] W/POSTERO INC INC ANT CH MINIMUM 3 VIEWS COLLECTIO 99512 [facility] N VENOUS 6 [facility] BLOOD INC INC VENIPUNCT URE COMPREHEN 10994 [facility] SIVE 6 [facility] [address] [facility] LACTATE 6 [facility] INC INC BLOOD 66823 [facility] COUNT 6 [facility] COMPLETE INC INC AUTO&AUTO DIFRNTL WBC CULTURE 05833 [facility] BACTERIAL 6 [facility] BLOOD INC INC AEROBIC W/ID ISOLATES SUSCEPTIB 77075 [facility] LTY STDY 6 [facility] ANTIMICRB INC INC IAL MICRO/AGA R DILUTJ CUL BACT 18721 [facility] XCPT 6 [facility] URINE INC INC BLOOD/STO OL AEROBIC ISOL CUL BACT 11221 [facility] AEROBIC 6 [facility] ADDL INC INC METHS DEFINITIV E EA ISOL BLD GLU A4253 CRISTIN JORDANRELL TEST/REAG 6 HOME [facility] T [facility] BLD EQUIPME EQUIPME GLU MON-50 LANCETS A4259 CRISTIN CRISTIN PER BOX 6 HOME HOME OF 100 MEDICAL MEDICAL EQUIPME EQUIPME RADEX 88929 [facility] ESOPHAGUS 6 [facility] INC [place] SOFT 92585 [facility] TISSUE 6 [facility] NECK INC INC W/CONTRAS T MATERIAL LOCM Q9967 [facility] 300-399 6 [facility] MG/ML INC INC IODINE CONCENTRA TION PER ML RADEX 58439 BR[facility] T[facility] SPINE 6 [facility] CERVICAL INC INC 4 OR 5 VIEWS RADEX HIP 30816 [facility] 6 [facility] UNILATERA INC INC L WITH PELVIS 2-3 VIEWS RADEX HIP 21246 [facility] FLANNERY ALL 6 MEDICAL UNILATERA IMAGING L WITH ASS PELVIS 1 VIEW RADEX 03977 [facility] FLANNERY ALL SPINE 6 MEDICAL CERVICAL IMAGING 2 OR 3 ASS VIEWS COLLECTIO 66770 [facility] N VENOUS 6 [facility] BLOOD INC INC VENIPUNCT URE COMPREHEN 81562 BRANDON BRANDON SIVE 6 [facility] [address] [facility] AMMONIA 6 [facility] INC INC BLOOD 35042 [facility] COUNT 6 [facility] COMPLETE INC INC AUTO&AUTO DIFRNTL WBC COLLECTIO 62019 BRANDON RABAGOON N VENOUS 6 [facility] [place] [address] [facility] FREE 6 [facility] [place] [address] [facility] THYROID 6 [facility] STIMULAT[place] [address] [facility] UREA 6 [facility] NITROGEN INC INC QUANTITAT ANNABELLA BLOOD 82189 [facility] COUNT 6 [facility] COMPLETE INC INC AUTO&AUTO DIFRNTL WBC CREATININ 66960 [facility] E BLOOD 6 [facility] INC INC COLLECTIO 06822 [facility] N VENOUS 5 [facility] BLOOD INC INC VENIPUNCT URE COMPREHEN 38759 [facility] SIVE 5 [facility] [address] [facility] THYROID 5 [facility] STIMULATI INC INC NG HORMONE TSH BLOOD 98965 [facility] COUNT 5 [facility] COMPLETE INC INC AUTO&AUTO DIFRNTL WBC RADIOLOGI 71770 [facility] C EXAM 5 [facility] CHEST 2 INC INC VIEWS FRONTAL&L ATERAL CT THORAX 59814 [facility] W/O 5 [facility] CONTRAST INC INC MATERIAL PRESSURIZ 44616 [facility] ED/NONPRE 5 [facility] SSURIZED INC INC INHALATIO N TREATMENT TX PROC G0238 [facility] IMPRV 5 [facility] RESP INC INC FUNCT NOT G0237 FCE-FCE 15MIN RADEX 17049 [facility] HAND 5 [facility] MINIMUM 3 INC INC VIEWS APPLICATI 11961 [facility] ON SHORT 5 [facility] ARM INC INC SPLINT FOREARM-H AND STATIC RADIOLOGI 98858 [facility] C 5 [facility] EXAMINATI INC INC ON PELVIS 1/[address] [place] [address] [facility] MAXILLOFA 5 [facility] CIAL W/O INC INC CONTRAST MATERIAL RADEX 90871 [facility] RIBS UNI 5 [facility] W/POSTERO INC INC ANT CH MINIMUM 3 VIEWS RADIOLOGI 33826 [facility] C 5 [facility] EXAMINATI INC INC ON KNEE 3 VIEWS WRIST L3908 [facility] HAND 5 TECHNOLOG TECHNOLOG ORTHOSIS IES INC IES INC EXT CONTROL COCK-UP PREFAB RADEX 11444 [facility] WRIST 5 [facility] COMPLETE INC INC MINIMUM 3 VIEWS DIAB ONLY A5500 [facility] FIT CSTM 5 MEDICAL MEDICAL PREP&SPL SUPPLY [employer]PPL[employer] DNSITY INSRT FOR DIAB A5512 [facility] [place] ONLY MX 5 MEDICAL MEDICAL DNSITY SUPPLY SUPPLY INSRT DIR [facility] FORMD PRFAB EA ECG 03935 BRANDON CHOWDHURY JR ROUTINE 5 [facility] W/LEAST P 12 [place] [address] SURG 5 TORO & PATHOLOGY TOMMY GROSS&SHANTHI ROSCOPIC EXAM DECALCIFI [address] CATION 5 TORO & PROCEDURE DUBILIER ANES OPEN 69476 [facility] CARMEL PROC 5 ANESTH BONES OF THE LOWER BLUE LEG/ANKLE /FOOT NOS RADEX 27181 ELENAY HOMER FOOT 5 MEDICAL AYLA COMPLETE IMAGING MINIMUM [address] [place] [address] [facility] CERVICAL 5 MEDICAL AYLA SPINE W/[place] [address] LEONA MORRISUTCHER HEAD/BRAI 5 MEDICAL AYLA N W/O IMAGING CONTRAST ASS MATERIAL AMB A0427 [facility] SERVICE 5 AMBULANCE AMBULANCE ALS SERVICE SERVICE EMERGENCY TRANSPORT LEVEL 1 RADEX HIP 57253 LEONA CORONEL 5 MEDICAL AYLA UNILATERA IMAGING L ASS COMPLETE MINIMUM 2 VIEWS GROUND A0425 [facility] MILEAGE 5 AMBULANCE AMBULANCE PER SERVICE SERVICE STATUTE MILE RADIOLOGI 32169 [facility] CORONEL C 5 MEDICAL AYLA EXAMINATI IMAGING ON PELVIS ASS 1/2 VIEWS CULTURE 42474 COMBINED COMBINED BACTERIAL 5 PHYSICIAN PHYSICIAN S LA S LA QUANTTATI VE COLONY COUNT URINE BLD GLU A4253 CRISTIN AMARAL TEST/REAG 5 HOME HOME T [facility] BLD EQUIPME EQUIPME GLU MON-50 BLOOD 29625 [facility] COUNT 5 [facility] COMPLETE INC INC AUTO&AUTO DIFRNTL WBC SUSCEPTIB 19841 [facility] T[facility] LTY STDY 5 [facility] ANTIMICRB INC INC IAL MICRO/AGA R DILUTJ URNLS DIP 22594 [facility] 5 [facility] STICK/TAB INC INC LET REAGENT AUTO MICROSCOP Y CULTURE 35634 [facility] BACTERIAL 5 [facility] INC INC QUANTTATI VE COLONY COUNT URINE CULTURE 44561 [facility] BCT 5 [facility] ISOL&PRSM INC INC PTV ID ISOLATE EA URINE COLLECTIO 36602 [facility] N VENOUS 5 [facility] BLOOD INC INC VENIPUNCT URE COMPREHEN 35264 [facility] SIVE 5 [facility] METABOLIC INC INC PANEL THER 44014 BR[facility] T[facility] PROPH/DX 5 [facility] NJX IV INC INC PUSH SINGLE/1S T SBST/DRUG GLUC BLD 70501 [facility] T[facility] GLUC MNTR 5 [facility] DEV INC INC CLEARED FDA SPEC HOME USE HEPATITIS 71713 [facility] C 5 [facility] ANTIBODY INC INC BLOOD 02713 [facility] COUNT 5 [facility] COMPLETE INC INC AUTO&AUTO DIFRNTL WBC HEPATITIS 26140 BRANDON Boyd CORE 5 [facility] ANTIBODY INC INC HBCAB TOTAL HEPATITIS 31198 BRANDON Boyd SURF 5 [facility] [place] [address] [facility] HEPATITIS 5 [facility] B INC INC SURFACE ANTIGEN COLLECTIO 70962 [facility] N VENOUS 5 [facility] BLOOD INC INC VENIPUNCT URE COMPREHEN 38658 [facility] SIVE 5 [facility] METABOLIC INC INC PANEL HEPATITIS 09379 [facility] A 5 [facility] ANTIBODY INC INC HAAB DUP-SCAN 39528 LEONA FLANNERY ALL XTR VEINS 5 MEDICAL IMAGING UNILATERA ASS L/LIMITED STUDY CV STRS 59755 BRANDON WELLS TST 5 [facility] XERS&/OR HOSPITAL RX CONT P ECG I&R ONLY CV STRS 74809 [facility] TST 5 PHYSICIAN XERS&/OR S GROUP RX CONT ECG W/O I&R TECHNETIU A9500 BRANDON BRANDON M TC-99M 5 [facility] SESTAMIBI INC INC DX PER STUDY DOSE CV STRS 36574 [facility] TST 5 [facility] XERS&/OR INC INC RX CONT ECG TRCG ONLY INJECTION J2785 BR[facility]ON TAYLOR 5 [facility] REGADENOS INC INC ON 0.1 MG MYOCARDIA 95261 LEONA FLANNERY ALL L SPECT 5 MEDICAL MULTIPLE IMAGING STUDIES ASS AMBULANCE A0429 [facility] SERVICE 5 AMBULANCE AMBULANCE BLS SERVICE SERVICE EMERGENCY TRANSPORT GROUND A0425 [facility] MILEAGE 5 AMBULANCE AMBULANCE PER SERVICE SERVICE STATUTE MILE RADEX 42204 LEONA FLANNERY ALL SHOULDER 5 MEDICAL COMPLETE IMAGING MINIMUM 2 ASS VIEWS RADIOLOGI 93666 [facility] FLANNERY ALL C 5 MEDICAL EXAMINATI IMAGING ON PELVIS ASS 1/2 VIEWS RADEX 27884 [facility]ONA FLANNERY ALL WRIST 5 MEDICAL COMPLETE IMAGING MINIMUM 3 ASS VIEWS RADEX 87187 [facility] FLANNERY ALL RIBS 5 MEDICAL UNILATERA IMAGING L 2 VIEWS ASS RADEX 03275 BR[facility]ON TAYLOR RIBS UNI 5 [facility] W/POSTERO INC INC ANT CH MINIMUM 3 VIEWS RADIOLOGI 79738 [facility] FLANNERY ALL C 5 MEDICAL EXAMINATI IMAGING ON KNEE 3 ASS VIEWS RADIOLOGI 23674 [facility] FLANNERY ALL C 5 MEDICAL EXAMINATI IMAGING ON CHEST ASS SINGLE VIEW FRONTAL BASIC 15184 BR[facility] TAYL[facility] METABOLIC 5 [facility] PANEL INC INC CALCIUM TOTAL COLLECTIO 07928 [facility] T[facility] N VENOUS 5 [facility] BLOOD INC INC VENIPUNCT URE BLOOD 03372 BR[facility] TAY[facility]OR COUNT 5 [facility] COMPLETE INC INC AUTO&AUTO DIFRNTL WBC BLD GLU A4253 CRISTIN AMARAL TEST/REAG 5 HOME HOME T STRIPS MEDICAL MEDICAL HOME BLD EQUIPME EQUIPME GLU MON-[place] [address] [facility] [place] [place] ABDOMEN & 5 MEDICAL ANITA PELVIS IMAGING W/CONTRAS ASS T MATERIAL GLUCOSE 67868 [facility] QUANTITAT 5 Y Y ANNABELLA BLOOD [facility] XCPT REAGENT STRIP BLOOD 53343 [facility] COUNT 5 Y Y COMPLETE [facility] AUTOMATED LEVEL V 64820 [facility] SURG 5 Y Y PATHOLOGY [facility] GROSS&SHANTHI ROSCOPIC EXAM BIOPSY 84704 [facility] LIVER 5 Y Y NEEDLE [facility] PERCUTANE OUS PROTHROMB 83416 [facility] IN TIME 5 Y Y [facility] SPCL STN 67535 [facility] 2 I&R 5 Y Y EXCPT [facility] MICROORG/ ENZYME/IM CYT THROMBOPL 55078 [facility] ASTIN 5 Y Y TIME [facility] PARTIAL PLASMA/WH OLE BLOOD RADIOLOGI 12086 [place] JULY C 5 MEDICAL SHANTHI EXAMINATI SERV ON CHEST FOUNDATIO SINGLE N VIEW FRONTAL INFUSION J7030 UNIVERSIT UNIVERSIT NORMAL 5 Y Y [facility] SOLUTION 1000 CC IMHISTOCH 67958 LOC PERKINSTalya EM/CYTCHM 5 PATHOLOGY PATHOLOGY EA ADDL SERVICES SERVICES ANTIBODY SLIDE CUL BACT 25098 BRANDONKATI TAYLOR XCPT 5 [facility] URINE INC INC BLOOD/STO OL AEROBIC ISOL CUL BACT 10932 BR[facility] T[facility] AEROBIC 5 [facility] ADDL INC [place] [address] LOC PERKINSTalya SURG 5 PATHOLOGY PATHOLOGY PATHOLOGY SERVICES SERVICES GROSS&SHANTHI ROSCOPIC EXAM IMHISTOCH 73819 LOC PERKINSTalya EM/CYTCHM 5 PATHOLOGY PATHOLOGY 1ST SERVICES SERVICES ANTIBODY STAIN PROCEDURE SUSCEPTIB 98340 BRANDON TAYLOR LTY STDY 5 [facility] ANTIMICRB INC INC IAL MICRO/AGA R DILUTJ RADEX 08200 [facility] SPINE 5 MEDICAL AYLA CERVICAL IMAGING 2 OR 3 ASS VIEWS BASIC 55607 BRANDON ADRIAN METABOLIC 5 [facility] EED MOH PANEL INC CALCIUM TOTAL COLLECTIO 39648 BRANDON TAYLOR N VENOUS 5 [facility] BLOOD INC INC VENIPUNCT [facility] G0378 BR[facility] TAY[facility]OR OBSERVATI 5 [facility] ON INC INC SERVICE PER HOUR PRESSURIZ 53371 BRANDON TAYLOR ED/NONPRE 5 [facility] SSURIZED INC INC INHALATIO N TREATMENT NONINVASI 77119 BRANDON TAYLOR VE 5 [facility] EAR/PULSE INC INC OXIMETRY SINGLE DETER GLUC BLD 58438 BR[facility] T[facility]LOR GLUC MNTR 5 [facility] DEV INC INC CLEARED FDA SPEC HOME USE BLOOD 45333 [facility] T[facility] COUNT 5 [facility] COMPLETE INC INC AUTO&AUTO DIFRNTL WBC OBSERVATI 08988 [facility] AND ON CARE 5 VALLEY DISCHARGE INTERNAL MED MANAGEMEN T RADIOLOGI 00143 [place] [facility] C 5 MEDICAL ANITA EXAMINATI IMAGING ON CHEST ASS SINGLE VIEW FRONTAL INITIAL 85034 [facility] AND OBSERVATI 5 VALLEY ON INTERNAL CARE/DAY MED 30 MINUTES CULTURE 76785 [facility] BACTERIAL 5 [facility] BLOOD INC INC AEROBIC W/ID ISOLATES SUSCEPTIB 14198 BR[facility] T[facility]LOR LTY STDY 5 [facility] ANTIMICRB INC INC IAL MICRO/AGA R DILUTJ BLOOD 01491 [facility] COUNT 5 [facility] COMPLETE INC INC AUTO&[place] [address] [facility] INFUSION 5 [facility] THERAPY/P INC INC ROPHYLAXI S /DX 1ST TO 1 HR GLUC BLD 69302 [facility] GLUC MNTR 5 [facility] DEV INC INC CLEARED FDA SPEC HOME USE INJECTION J2310 [facility] NALOXONE 5 [facility] HCL PER INC INC 1 MG THERAPEUT 06682 [facility] IC 5 [facility] INJECTION INC [place] [address] [facility] INFUSION 5 [facility] THER INC INC PROPH ADDL SEQUENTIA L [place] 1 [place] [address] [facility] STREPTOCO 5 [facility] CCUS [facility] [id number] [facility] OBSERVATI 5 [facility] ON INC INC SERVICE PER HOUR CUL BACT 24638 [facility] XCPT 5 [facility] URINE INC INC BLOOD/STO OL AEROBIC ISOL CUL BACT 39557 [facility] AEROBIC 5 [facility] ADDL INC INC METHS DEFINITIV E EA ISOL IAADI 78250 [facility] INFLUENZA 5 [facility] B VIRUS INC INC IAADI 16871 [facility] INFFLUENZ 5 [facility] A A VIRUS INC INC RADIOLOGI 77875 [place] [place] [facility] Kumar 5 MEDICAL AYLA EXAMINATI IMAGING ON CHEST ASS SINGLE VIEW FRONTAL PROTHROMB 02127 [facility] IN TIME 5 [facility] INC INC COLLECTIO 65865 [facility] N VENOUS 5 [facility] BLOOD INC INC VENIPUNCT URE COMPREHEN 57378 [facility] SIVE 5 [facility] METABOLIC INC INC PANEL HEPATITIS 34840 [place] A & B 5 [facility] VACCINE SERV [facility] HEPA-HEPB FOUNDATIO ADULT IM N IM ADM 39661 [place] PRQ ID 5 [facility] SUBQ/IM SERV [facility] NJXS 1 [place] [address] [facility] GAMMAGLOB 5 [facility] ULIN IGA INC INC IGD IGG IGM EACH BLOOD 20222 [facility] COUNT 5 [facility] COMPLETE INC INC AUTO&AUTO DIFRNTL WBC RADEX 36378 [place] [facility] SHOULDER 5 MEDICAL [facility] COMPLETE IMAGING MINIMUM 2 ASS VIEWS RADEX HIP 56721 [place] [facility] 5 MEDICAL A[facility] UNILATERA IMAGING L ASS COMPLETE MINIMUM [address] [place] [address] [place] [facility] HEAD/BRAI 5 MEDICAL AYLA N W/O IMAGING CONTRAST ASS MATERIAL RADEX 56475 [facility] WRIST 4 [facility] COMPLETE INC INC MINIMUM 3 VIEWS RADEX 89869 [facility] HAND 4 [facility] MINIMUM 3 INC INC VIEWS APPLICATI 02691 [facility] ON [facility]ORT 4 KAMAR MOH ARM EMERGENCY SPLINT PHYS FOREARM-H AND STATIC PREPJ& 58218 MARNI MARNI ALLERGEN 4 LUIS ALFREDO LUIS ALFREDO IMMUNOTHE RAPY 1/RESOURCE EFFICIENCY MANAGER ANTIGEN BLD GLU A4253 CRISTIN AMARAL TEST/REAG 4 HOME HOME T [facility] MEDICAL HOME BLD EQUIPME EQUIPME GLU MON-50 ADMINISTR G0010 [place] ATION OF 4 [facility]ICAL [place] HEPATITIS SERV [facility] B FOUNDATIO VACCINE N HEPATITIS 86851 [place] A & B 4 [facility] [place] VACCINE SERV ACH HEPA-HEPB FOUNDATIO ADULT IM N SPMTRY 53301 MARNI MARNI W/VC 4 LUIS ALFREDO LUIS ALFREDO EXPIRATOR Y LULU W/WO MXML VOL VNTJ COMPRE 30935 EAR, NOSE EAR, NOSE AUDIOMETR 4 AND AND Y THROAT THROAT THRESHOLD SPECIAL SPECIAL EVAL SP RECOGNIJ TYMPANOME 16599 EAR, NOSE SHASHY TRY 4 AND SOBEIDA THROAT SPECIAL ALBUMIN 52330 [facility] MICROALBU INC INC MIN QUANTIATI VE RADEX HIP 71167 [facility] 4 [facility] UNILATERA INC INC L COMPLETE MINIMUM 2 VIEWS COLLECTIO 84453 [facility] N VENOUS 4 [facility] BLOOD INC INC VENIPUNCT URE COMPREHEN 46542 [facility] SIVE 4 [facility] [address] [facility] AMMONIA 4 [place] [address] [facility] THYROID 4 [facility] STIMULATI INC INC NG HORMONE TSH LIPID 10880 [facility] PANEL 4 [facility] INC INC HEMOGLOBI 57516 [facility] N 4 [facility] GLYCOSYLA INC INC ML A1C BLOOD 09899 [facility] COUNT 4 [facility] COMPLETE INC INC AUTO&AUTO DIFRNTL WBC DETERMINA 94194 [facility]N RAMIREZ TION 4 [facility] E STATE OPH 95271 EVELYN [facility] 4 VISION XM&EVAL CENTER COMPRHNSV ESTAB PT 1/> COLLECTIO 45874 [facility] N VENOUS 4 Y Y BLOOD [facility] VENIPUNCT URE COMPREHEN 89053 [facility] 4 [facility] PANEL [facility]TINUCLE 82239 [facility] 4 Y [facility] NADINE TITER ANTINUCLE 26885 [facility] 4 [facility] NADINE BLD GLU A4253 CRISTIN AMARAL TEST/REAG 4 HOME HOME T [facility] BLD EQUIPME EQUIPME GLU MON-50 FOR DIAB A5512 [facility] ONLY MX 4 MEDICAL MEDICAL DNSITY SUPPLY SUPPLY INSRT [facility] FORMD PRFAB EA DIAB ONLY A5500 [facility] FIT CSTM 4 MEDICAL MEDICAL PREP&SPL SUPPLY SUPPLY SH[employer] DNSITY INSRT COLOREC G0121 [facility] CANCR 4 Y Y SCR; [facility] NOT MEET HI RISK INFUSION J7030 [facility] NORMAL 4 Y Y SALINE [facility] SOLUTION 1000 CC ESOPHAGOG 07656 [facility] ASTRODUOD 4 Y Y [facility] TRANSORAL DIAGNOSTI C GLUCOSE 95258 [facility] QUANTITAT 4 Y Y ANNABELLA BLOOD [facility] XCPT REAGENT STRIP BX SKIN 77249 [facility] SUBCUTANE 4 DERMATOLO DERMATOLO OUS&/MUCO GY GY [place]BR[place] [address] [facility] SURG 4 DERMATOLO DERMATOLO PATHOLOGY GY GY GROSS&SHANTHI ROSCOPIC EXAM BIOPSY 83604 [facility] SKIN 4 DERMATOLO DERMATOLO SUBQ&/MUC GY GY OUS MEMBRANE EA ADDL LESN CUL BACT 58606 [facility] XCPT 4 DIAGNOSTI DIAGNOSTI URINE CS CS BLOOD/STO OL AEROBIC ISOL BLOOD 30765 [facility] COUNT 4 [facility] COMPLETE INC INC AUTO&AUTO DIFRNTL WBC COLLECTIO 01765 [facility] N VENOUS 4 [facility] BLOOD INC INC VENIPUNCT URE COMPREHEN 07394 [facility] SIVE 4 [facility] METABOLIC INC INC PANEL BLD GLU A4253 CRISTIN JORDANRELL TEST/REAG 4 HOME [facility] BLD EQUIPME EQUIPME GLU MON-50 US SOFT 37911 [facility] TISSUE 4 [facility] HEAD & INC INC NECK REAL TIME IMGE DOCM CULTURE 32487 [facility] BACTERIAL 4 [facility] INC INC QUANTTATI VE COLONY COUNT URINE BLOOD 09822 [facility] COUNT 4 [facility] COMPLETE INC INC AUTO&AUTO DIFRNTL WBC CULTURE 55756 [facility] BACTERIAL 4 [facility] BLOOD INC INC AEROBIC W/ID ISOLATES RADIOLOGI 86867 [facility]ONA CORONEL C EXAM 4 MEDICAL AYLA CHEST 2 IMAGING VIEWS ASS FRONTAL&L ATERAL COMPREHEN 75050 [facility] SIVE 4 [facility] METABOLIC INC INC PANEL COLLECTIO 62703 [facility] N VENOUS 4 [facility] BLOOD INC INC VENIPUNCT URE COLLECTIO 28791 [facility] N VENOUS 4 Y Y BLOOD [facility] VENIPUNCT URE ANTIBODY 78636 [facility] IDENTIFIC 4 Y Y ATION [facility] LEUKOCYTE ANTIBODIE S HEPATITIS 17266 [facility] A 4 Y Y ANTIBODY [facility] HAAB IADNA 81064 [facility] HEPATITIS 4 Y Y C QUANT [facility] TRANSCRIP TION HEPATITIS 35952 [facility] C 4 Y Y [place] [address] [facility] HEPATITIS 4 Y Y B [facility] SURFACE ANTIGEN HEPATITIS 38786 [facility] CORE 4 Y Y ANTIBODY [facility] HBCAB TOTAL HEPATITIS 69963 [facility] SURF 4 Y Y ANTIBODY [facility] HBSAB FLUORESCE 37771 [facility] NT 4 Y Y NONNFCT [facility] AGT ANTB SCREEN EA ANTIBODY INFUSION J7030 [facility] NORMAL 4 Y Y SALINE [facility] SOLUTION 1000 CC THER 88091 [facility] PROPH/DX 4 Y Y NJX IV [facility] PUSH SINGLE/1S T SBST/DRUG RINGERS J7120 [facility] LACTATE 4 Y Y INFUSION [facility] UP TO 1000 CC BLOOD 86576 [facility] COUNT 4 Y Y COMPLETE [facility] [place] [address] [place] ABDOMEN & 4 MEDICAL OLIVIA PELVIS SERV W/CONTRAS FOUNDATIO T MATERIAL COMPREHEN 55755 [facility] SIVE 4 Y Y METABOLIC [facility] PANEL URNLS DIP 62072 [facility] 4 Y Y STICK/TAB [facility] LET RGNT AUTO W/O MICROSCOP Y INJECTION J2405 [facility] 4 Y [facility] H[facility] PER [address] LOCM [address] [place] [address] [phone] Y Y MG/[facility] IODINE CONCENTRA TION PER ML COLLECTIO 15954 [facility] N VENOUS 4 [facility] BLOOD INC INC VENIPUNCT URE COMPREHEN 45495 [facility] SIVE 4 [facility] [place] [address] [facility] AMYLASE 4 [facility] INC INC BLOOD 00984 [facility] COUNT 4 [facility] COMPLETE INC INC AUTO&AUTO DIFRNTL WBC SUSCEPTIB 72886 [facility] LTY STDY 4 [facility] ANTIMICRB INC INC IAL MICRO/AGA R DILUTJ URNLS DIP 45209 [facility] 4 [facility] STICK/TAB INC INC [place] [address] [facility] LIPASE 4 [facility] INC INC CULTURE 16402 BRANDONKATI TAYLOR BACTERIAL 4 [facility] INC INC QUANTTATI VE COLONY COUNT URINE CULTURE 07423 [facility] RABAGOON BCT 4 [facility] ISOL&PRSM INC INC PTV ID ISOLATE EA URINE SCR G0145 [facility] CYTOPATH 4 [facility] CERV/VAG SCR AUTO&MNL RSCR PHYS RADIOLOGI 73337 [facility] EXAM 4 MEDICAL AYLA CHEST 2 IMAGING VIEWS ASS FRONTAL&L ATERAL ECG 03102 [facility] ROUTINE 4 KAMAR ECG EMERGENCY W/LEAST PHYS 12 LDS I&R ONLY COLLECTIO 67435 BRAND[facility] N VENOUS 4 [facility] BLOOD INC INC VENIPUNCT URE CREATINE 09426 [facility] KINASE MB 4 [facility] [place] [address] [facility] TROPONIN 4 [facility] QUANTITAT INC INC ANNABELLA NATRIURET 69174 [facility] IC 4 [facility] PEPTIDE INC INC BLOOD 62328 [facility] COUNT 4 [facility] COMPLETE INC INC AUTO&AUTO DIFRNTL WBC ECG 88553 [facility]LLS ROUTINE [facility] W/LEAST P 12 LDS I&R ONLY CREATINE 77744 [facility] KINASE 4 [facility] TOTAL INC INC ECG 73933 [facility] ROUTINE 4 [facility] ECG INC INC W/LEAST 12 LDS TRCG ONLY W/O I&R BASIC 98586 [facility] METABOLIC 4 [facility] PANEL INC INC CALCIUM TOTAL PHRM Q0513 YOUR YOUR DISPENSIN 4 PHARMACY PHARMACY G FEE [facility] INHALATIO N RX; PER 30 DAYS BLD GLU A4253 CRISTIN AMARAL TEST/REAG 4 HOME HOME T [facility] BLD EQUIPME EQUIPME GLU MON-50 LANCETS A4259 CRISTIN AMARAL PER BOX 4 HOME HOME OF 100 MEDICAL MEDICAL EQUIPME EQUIPME ALBUTEROL J7613 YOUR YOUR INHAL 4 PHARMACY PHARMACY NON-CP [facility] PROD THRU DME U DOSE 1 MG ADMN SET A7005 YOUR YOUR W/SM VOL 4 PHARMACY PHARMACY NONFILTR [facility] NEBULIZR NON-DISPB L E-STIM G0283 [facility] 1/> AREAS 4 [facility] OTH THAN INC INC WND CARE PART TX PLAN APPLICATI 00326 [facility] ON 4 [facility] MODALITY INC INC 1/> AREAS HOT/COLD PACKS APPLICATI 14958 [facility] ON 4 [facility] MODALITY INC INC 1/> AREAS HOT/COLD PACKS APPL 62407 [facility] MODALITY 4 [facility] 1/> AREAS INC INC 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 L E-STIM G0283 [facility] 1/> AREAS 4 [facility] OTH THAN INC INC WND CARE PART TX PLAN E-STIM G0283 [facility] 1/> AREAS 4 [facility] OTH THAN INC INC WND CARE PART TX PLAN APPLICATI 71555 [facility] ON 4 [facility] MODALITY INC INC 1/> AREAS HOT/COLD PACKS APPL 14606 [facility] MODALITY 4 [facility] 1/> AREAS INC INC 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 L LIPID 08947 [facility] PANEL 4 [facility] INC INC COLLECTIO 50055 [facility] N VENOUS 4 [facility] BLOOD INC INC VENIPUNCT URE COMPREHEN 45890 [facility] SIVE 4 [facility] METABOLIC INC INC PANEL TENS E0730 EMPI INC EMPI INC DEVICE 4 4/MORE LEADS MULTI NERVE STIMULATI ON APPL 06005 [facility] MODALITY 4 [facility] 1/> AREAS INC INC 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 L APPLICATI 77084 [facility] ON 4 [facility] MODALITY INC INC 1/> AREAS HOT/COLD PACKS E-STIM G0283 [facility] 1/> AREAS 4 [facility] OTH THAN INC INC WND CARE PART TX PLAN APPL 55229 [facility] MODALITY 4 [facility] 1/> AREAS INC INC ELEC STIMJ EA 15 MIN E-STIM G0283 [facility] 1/> AREAS 4 [facility] OTH THAN INC INC WND CARE PART TX PLAN APPLICATI 93099 [facility] ON 4 [facility] MODALITY INC INC 1/> AREAS HOT/COLD PACKS APPL 57659 [facility] MODALITY 4 [facility] 1/> AREAS INC INC 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 L BLD GLU A4253 CRISTIN AMARAL TEST/REAG 4 HOME HOME T [facility] BLD EQUIPME EQUIPME GLU MON-50 LANCETS A4259 CRISTIN AMARAL PER BOX 4 HOME HOME OF 100 MEDICAL MEDICAL EQUIPME EQUIPME URNLS DIP 29006 [facility] MIRANDA 4 [facility] LET RGNT P NON-AUTO W/O MICRSCP APPLICATI 04623 [facility] ON 4 [facility] MODALITY INC INC 1/> AREAS HOT/COLD PACKS E-STIM G0283 [facility] 1/> AREAS 4 [facility] OTH THAN INC INC WND CARE PART TX PLAN ECG 46586 [facility]LLS ROUTINE [facility] W/LEAST P 12 LDS I&R ONLY RADIOLOGI 01894 [facility] GARCHER C EXAM 4 MEDICAL AYLA CHEST 2 IMAGING VIEWS ASS FRONTAL&L ATERAL RADIOLOGI 74187 [facility] CORONEL C EXAM 4 MEDICAL AYLA CHEST 2 IMAGING VIEWS ASS FRONTAL&L ATERAL ECG 82258 BRAND[facility] CHOWDHURY JR ROUTINE 4 [facility] W/LEAST P 12 LDS I&R ONLY E-STIM G0283 [facility] 1/> AREAS 4 [facility] OTH THAN INC INC WND CARE PART TX PLAN APPL 81256 [facility] MODALITY 4 [facility] 1/> AREAS INC INC 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 L APPLICATI 17089 [facility] ON 4 [facility] MODALITY INC INC 1/> AREAS HOT/COLD PACKS APPL 72009 [facility] MODALITY 4 [facility] 1/> AREAS INC INC ULTRASOUN D EA 15 MIN APPL 37441 [facility] MODALITY 4 [facility] 1/> AREAS INC INC ULTRASOUN D EA 15 MIN NERVE 88879 AMA [facility] CONDUCTIO 4 [facility] 5-6 MITCH STUDIES APPL 99222 [facility] MODALITY 4 [facility] 1/> AREAS INC INC 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 L NEEDLE 15777 MU-ISMYINKA [facility]MAN EMG EA 4 NEUROLOGY [facility] W/PARASPI MITCH NL AREA COMPLETE 3D 33834 [facility] RENDERING 4 [facility] W/INTERP INC INC & POSTPROCE SS SUPERVISI ON MRI 50177 LEONA MORRISUTCHER SPINAL 4 MEDICAL AYLA CANAL IMAGING LUMBAR ASS W/O CONTRAST MATERIAL 3D 55996 LE[facility] HOMER RENDERING 4 MEDICAL AYLA IMAGING W/INTERP& ASS POSTPROC DIFF WORK STATION APPL 80532 [facility] MODALITY 4 [facility] 1/> AREAS INC INC ULTRASOUN D EA 15 MIN APPLICATI 35947 [facility] ON 4 [facility] MODALITY INC INC 1/> AREAS HOT/COLD PACKS E-STIM G0283 [facility] 1/> AREAS 4 [facility] OTH THAN INC INC WND CARE PART TX PLAN APPL 42078 [facility] MODALITY 4 [facility] 1/> AREAS INC INC 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 L APPL 53085 [facility] MODALITY 4 [facility] 1/> AREAS INC INC 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 L E-STIM G0283 [facility] 1/> AREAS 4 [facility] OTH THAN INC INC WND CARE PART TX PLAN PHYSICAL 45160 [facility] THERAPY 4 [facility] EVALUATIO INC INC N APPLICATI 39273 [facility] ON 4 [facility] MODALITY INC INC 1/> AREAS HOT/COLD PACKS APPL 24039 [facility] MODALITY 4 [facility] 1/> AREAS INC INC ULTRASOUN D EA 15 MIN APPL 60519 [facility] MODALITY 4 [facility] 1/> AREAS INC INC ULTRASOUN D EA 15 MIN APPLICATI 39400 [facility] ON 4 [facility] MODALITY INC INC 1/> AREAS HOT/COLD PACKS E-STIM G0283 [facility] 1/> AREAS 4 [facility] OTH THAN INC INC WND CARE PART TX PLAN E-STIM G0283 [facility] 1/> AREAS 4 [facility] OTH THAN INC INC WND CARE PART TX PLAN APPLICATI 33075 [facility] ON 4 [facility] MODALITY INC INC 1/> AREAS HOT/COLD PACKS APPL 25970 [facility] MODALITY 4 [facility] 1/> AREAS INC INC ULTRASOUN D EA 15 MIN APPL 24227 [facility] MODALITY 4 [facility] 1/> AREAS INC INC 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 L APPL 99579 [facility] MODALITY 4 [facility] 1/> AREAS INC INC 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 L APPL 66059 [facility] MODALITY 4 [facility] 1/> AREAS INC INC ULTRASOUN D EA 15 MIN APPLICATI 79921 [facility] ON 4 [facility] MEM [...] INC WND CARE PART TX PLAN APPLICATI 38772 [facility] ON 4 [facility] MODALITY INC INC 1/> AREAS HOT/COLD PACKS APPL 76230 [facility] MODALITY 4 [facility] 1/> AREAS INC INC ULTRASOUN D EA 15 MIN APPL 85497 [facility] MODALITY 4 [facility] 1/> AREAS INC INC 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 L APPL 57570 [facility] MODALITY 4 [facility] 1/> AREAS INC INC 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 L APPL 91476 [facility] MODALITY 4 [facility] 1/> AREAS INC INC ULTRASOUN D EA 15 MIN APPLICATI 18457 [facility] ON 4 [facility] MODALITY INC INC 1/> AREAS HOT/COLD PACKS E-STIM G0283 [facility] 1/> AREAS 4 [facility] OTH THAN INC INC WND CARE PART TX PLAN E-STIM G0283 [facility] 1/> AREAS 4 [facility] OTH THAN INC INC WND CARE PART TX PLAN APPLICATI 62717 [facility] ON 4 [facility] MODALITY INC INC 1/> AREAS HOT/COLD PACKS APPL 00529 [facility] MODALITY 4 [facility] 1/> AREAS INC INC ULTRASOUN D EA 15 MIN APPL 88366 [facility] MODALITY 4 [facility] 1/> AREAS INC INC 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 L INJECTION J2405 [facility] 3 [facility] ONDANSETR INC INC ON HCL PER 1 MG CYSTO 11829 BRANDON MIRANDA CALIBRATI 3 [facility] ON DILAT [facility] URTL P STRIX/[place] [address] [facility]AND[facility] INFUSION 3 [facility] THERAPY INC INC PROPHY[place] [address] [facility] INFUSION 3 [facility] THERAPY/P INC INC ROPHYLAXI S /DX 1ST TO 1 HR GLUC BLD 40317 [facility] GLUC MNTR 3 [facility] DEV INC INC CLEARED FDA SPEC HOME USE THERAPEUT 17772 [facility] IC 3 [facility] INJECTION INC INC IV PUSH EACH NEW DRUG ANES 25241 [facility] TRANSURET 3 ANESTH HRAL OF THE W/URETHRO BLUE CYSTOSCOP Y NOS URNLS DIP 49282 [facility] MIRANDA 3 [facility] LET RGNT P NON-AUTO W/O MICRSCP PROF SVCS 13729 MARNI MARNI ALLG 3 LUIS ALFREDO LUIS ALFREDO IMMNTX X W/PRV ALLGIC XTRCS NJXS PROF SVCS 31413 MARNI MARNI ALLG 3 [facility] ALFR[facility]O LUIS ALFREDO IMMNTX X W/PRV ALLGIC XTRCS NJXS SMR PRIM 48894 [facility] ATYLOR SRC 3 [facility] GRAM/GIEM INC INC SA STAIN BCT FUNGI/VERÓNICA L SUSCEPTIB 74192 [facility] LTY STDY 3 [facility] ANTIMICRB INC INC IAL MICRO/AGA R DILUTJ MYOCARDIA 37889 LEONA Yoon SPECT 3 MEDICAL AYLA MULTIPLE IMAGING STUDIES ASS CUL BACT 12358 [facility] STOOL 3 [facility] AEROBIC INC INC ISOL SALMONELL A&SHIGELL TECHNETIU A9500 BRANDON Wayne TC-99M 3 [facility] SESTAMIBI INC INC DX PER STUDY DOSE CV STRS 86514 [facility] TST 3 [facility] XERS&/OR INC INC RX CONT ECG TRCG ONLY INJECTION J2785 [facility] 3 [facility] REGADENOS [place] 0.[address] [place] [address] BR[facility] LIPASE 3 [facility] INC INC COLLECTIO 72980 [facility] N VENOUS 3 [facility] BLOOD INC INC VENIPUNCT URE COMPREHEN 83828 [facility] SIVE 3 [facility] [address] BR[facility] AMYLASE 3 [facility] INC INC BLOOD 68596 [facility] COUNT 3 [facility] COMPLETE INC INC AUTO&AUTO DIFRNTL WBC PHRM Q0513 YOUR YOUR DISPENSIN 3 PHARMACY PHARMACY G FEE [facility] INHALATIO N RX; PER 30 DAYS ALBUTEROL J7613 YOUR YOUR INHAL 3 PHARMACY PHARMACY NON-CP [facility] PROD THRU DME U DOSE 1 MG SUSCEPTIB 18900 [facility] LTY STDY 3 [facility] ANTIMICRB INC INC IAL MICRO/AGA R DILUTJ URNLS DIP 93337 BRANDON MIRANDA 3 [facility] LET RGNT P NON-AUTO W/O MICRSCP CULTURE 59090 [facility] T[facility] BACTERIAL 3 [facility] INC INC QUANTTATI VE COLONY COUNT URINE CULTURE 15029 [facility] BCT 3 [facility] ISOL&PRSM INC INC PTV ID ISOLATE EA URINE INSJ 02062 BRANDON MIRANDA NON-NDWEL 3 [facility] P CATHETER RADEX ABD 44043 [facility] COMPL 3 [facility] AQT ABD INC INC W/S/E/D VIEWS 1 VIEW CH 3D 20893 [facility] RENDERING 3 [facility] INC INC W/INTERP& [place] [address] [facility] LIPASE 3 [place] [address] [facility] ABDOMEN & 3 [facility] PELVIS INC INC W/O CONTRAST MATERIAL THERAPEUT 14907 [facility] IC 3 [facility] PROPHYLAC INC INC TIC/DX INJECTION SUBQ/IM BLOOD 46987 [facility] COUNT 3 [facility] COMPLETE INC INC AUTO&AUTO DIFRNTL WBC PROF SVCS 79192 MARNI MARNI ALLG 3 [facility] AL[facility] LUIS ALFREDO IMMNTX X W/PRV ALLGIC XTRCS NJXS COMPREHEN 69734 [facility] SIVE 3 [facility] METABOLIC INC INC PANEL INJECTION J2405 [facility] 3 [facility] ONDANSETR INC INC ON HCL PER 1 MG PROF SVCS 67965 MARNI MARNI ALLG 3 [facility] ALFR[facility]O LUIS ALFREDO IMMNTX X W/PRV ALLGIC XTRCS NJXS SPMTRY 92985 MARNI MARNI W/VC 3 [facility] LUIS ALFREDO EXPIRATOR Y LULU W/WO MXML VOL VNTJ CULTURE 84048 [facility] BACTERIAL 3 [facility] INC INC QUANTTATI VE COLONY COUNT URINE PROF SVCS 99981 MARNI MARNI ALLG 3 [facility]IS ALFREDO LUIS ALFREDO IMMNTX X W/PRV ALLGIC XTRCS NJXS PROF SVCS 47396 MARNI MARNI ALLG 3 [facility] ALFR[facility]O LUIS ALFREDO IMMNTX X W/PRV ALLGIC XTRCS NJXS COLLECTIO 67744 BRANDON RABAGOON N VENOUS 3 [facility] BLOOD INC INC VENIPUNCT URE BLOOD 20795 [facility] COUNT 3 [facility] COMPLETE INC INC AUTO&AUTO DIFRNTL WBC CULTURE 19308 COMBINED COMBINED BACTERIAL 3 PHYSICIAN PHYSICIAN S LA [place] [address] [facility] INFUSION 3 [facility] THERAPY INC INC PROPHYLAX IS/DX EA HOUR POSTERIOR V2632 BRANDONKATI [facility]ON CHAMBER 3 [facility] [place] [address] [facility]ION [facility] THERAPY/P INC INC ROPHYLAXI S /DX 1ST TO 1 HR GLUC BLD 89175 [facility] GLUC MNTR 3 [facility] DEV INC INC CLEARED FDA SPEC HOME USE CATARACT 75520 [facility] PROF SVCS 67163 MARNI MARNI ALLG 3 [facility] LU[facility] AL[facility] IMMNTX X W/PRV ALLGIC XTRCS NJXS COLLECTIO 57228 [facility] N VENOUS 3 [facility] BLOOD INC INC VENIPUNCT URE COMPREHEN 90461 [facility] SIVE 3 [facility] METABOLIC INC INC PANEL BLOOD 61642 [facility] COUNT [facility] COMPLETE INC INC AUTO&AUTO DIFRNTL WBC CULTURE 54719 [facility] BACTERIAL 3 [facility] INC INC [place] [address] MARNI MARNI ALLG 3 [facility] ALFREDO LUIS ALFREDO IMMNTX X W/PRV ALLGIC XTRCS NJXS PROF SVCS 65280 MARNI MARNI ALLG 3 [facility] ALFREDO LUIS ALFREDO IMMNTX X W/PRV ALLGIC XTRCS NJXS SPMTRY 80358 MARNI MARNI W/VC 3 [facility] LU[facility] AL[facility] EXPIRATOR Y LULU W/WO MXML VOL VNTJ GLUC BLD 28827 [facility] GLUC MNTR 3 [facility] DEV INC [place] [address] [facility] INFUSION 3 [facility] THERAPY/P INC INC ROPHYLAXI S /DX 1ST TO 1 HR CATARACT 80297 [facility] REMOV[facility] OPH BMTRY 17679 [place] ROB US [facility] [place] [address] [facility] INFUSION [facility] THERAPY INC INC PROPHYLAX IS/DX EA HOUR POSTERIOR V2632 [facility] CHAMBER 3 [facility] INTRAOCUL INC INC AR LENS CULTURE 33604 [facility] BACTERIAL 3 [facility] INC INC QUANTTATI VE COLONY COUNT URINE CULTURE 78479 [facility] BCT [facility] ISOL&PRSM INC INC PTV ID ISOLATE EA URINE SUSCEPTIB 57515 [facility] LTY STDY 3 [facility] ANTIMICRB INC INC IAL MICRO/AGA R DILUTJ URNLS DIP 10657 [place] [facility] JR PETR STICK/TAB INTERNAL LET RGNT MED NON-AUTO W/O MICRSCP PHRM Q0513 YOUR YOUR DISPENSIN 3 PHARMACY PHARMACY G FEE [place] [facility] INHALATIO N RX; PER 30 DAYS ALBUTEROL J7613 YOUR YOUR INHAL 3 PHARMACY PHARMACY NON-CP [facility] PROD THRU DME U DOSE 1 MG ADMN SET A7005 YOUR YOUR W/SM VOL 3 PHARMACY PHARMACY NONFILTR [facility] NEBULIZR NON-DISPB L COLLECTIO 84649 [facility] N VENOUS 3 [facility] [place] [address] [facility] THYROID [facility] STIMUL[place] [address] [facility] GAMMAGLOB 3 [facility] ULIN IGE INC INC C-REACTIV 48179 [facility] E PROTEIN 3 [facility] INC INC INJECTION J2010 MARNI MARNI 3 LUIS ALFREDO LUIS ALFREDO LINCOMYCI N HCL UP TO [address] [place] [address] [facility] GAMMAGLOB 3 [facility] ULIN IGA INC INC IGD IGG IGM EACH COMPLEMEN 01667 [facility] T TOTAL 3 [facility] HEMOLYTIC INC INC RHEUMATOI 20660 [facility]ardo FACTOR [facility] QUANTITAT INC INC ANNABELLA ANTIBODY 65604 [facility] BACTERIUM 3 [facility] NOT INC INC ELSEWHERE SPECIFIED BLOOD 94184 [facility] COUNT [facility] COMPLETE INC INC AUTO&AUTO DIFRNTL WBC RADIOLOGI 88457 [facility] C EXAM [facility] CHEST 2 INC INC VIEWS FRONTAL&L ATERAL INJECTION J1040 MARNI MARNI 3 [facility] ALFR[facility]O LUIS ALFREDO METHYLPRE DNISOLONE ACETATE 80 MG BRNCDILAT 62046 MARNI MARNI RSPSE 3 [facility] AL[facility] LU[facility] ALFR[facility]O SPMTRY PRE&POST- BRNCDILAT ADMN PRESSURIZ 26026 MARNI MARNI ED/NONPRE 3 [facility] LOBATO SSURIZED INHALATIO N TREATMENT GAMMAGLOB 94509 [facility] ULIN [facility] IMMUNOGLO [place] [address] [facility] THYROXINE 3 [facility] TOTAL INC INC ANTINUCLE 07761 [facility] AR [facility] ANTIBODIE INC INC S NADINE THERAPEUT 67747 MARNI MICHELLEHBURN IC 3 [facility]IS ALFREDO LUIS ALFREDO PROPHYLAC TIC/DX INJECTION SUBQ/IM DEMO&/POLLY 34963 MARNI GRIDER L OF PT 3 LUIS ALFREDO LOBATO UTILIZ AERSL GEN/NEB/I NHLR/IP 25 52553 [facility]DROXY 3 [facility] INCLUDES INC INC FRACTIONS IF PERFORMED CYANOCOBA 58498 [facility] PRATEEK 3 [facility] VITAMIN INC INC B-12 SEDIMENTA 91375 [facility] TION RATE 3 [facility] RBC INC INC NON-AUTOM ATED RADEX 73313 [facility] RIBS UNI 3 [facility] W/POSTERO INC INC ANT CH MINIMUM 3 VIEWS CULTURE 24389 COMBINED COMBINED BACTERIAL 3 PHYSICIAN PHYSICIAN S LA S LA QUANTTATI VE COLONY COUNT URINE PROF SVCS 52387 MARNI MARNI ALLG 3 LUIS ALFREDO LUIS ALFREDO IMMNTX X W/PRV ALLGIC XTRCS NJXS URNLS DIP 31980 [facility] 3 [facility] CECE STICK/TAB INTERNAL LET RGNT MEDI NON-AUTO W/O MICRSCP OPH BMTRY 61828 [facility] US 3 EYE [facility] A-SCAN IO LENS PWR [place] OPHTH 10332 [place] [address] EYE JANET XM&EVAL INSTITUTE COMPRE NEW PT 1/> VST COLLECTIO 04180 [facility] N VENOUS 3 [facility] BLOOD INC INC VENIPUNCT URE BLOOD 07700 [facility] COUNT 3 [facility] COMPLETE INC INC AUTO&AUTO DIFRNTL WBC BLOOD 45219 [facility] COUNT 3 [facility] COMPLETE INC INC AUTO&AUTO DIFRNTL WBC RADIOLOGI 96273 [facility] C EXAM 3 [facility] CHEST 2 INC INC VIEWS FRONTAL&L ATERAL COLLECTIO 20191 [facility] N VENOUS 3 [facility] BLOOD INC INC VENIPUNCT URE COMPREHEN 31351 [facility] SIVE 3 [facility] METABOLIC INC INC PANEL URNLS DIP 47574 [facility] MCKEMIE 3 [place] JR PETR STICK/TAB INTERNAL LET RGNT MED NON-AUTO W/O MICRSCP PROF [facility] 83886 MARNI MARNI ALLG 3 LUIS ALFREDO LUIS ALFREDO IMMNTX X W/PRV ALLGIC XTRCS NJXS PROF [facility] 08961 MARNI MARNI ALLG 3 LUIS ALFREDO LUIS ALFREDO IMMNTX X W/PRV ALLGIC XTRCS NJXS BLD GLU A4253 M E D M E D TEST/REAG 3 SUPPLIES SUPPLIES T STRIPS HOME BLD GLU MON-50 LANCETS A4259 M E D M E D PER BOX 3 SUPPLIES SUPPLIES OF 100 PREPJ& 25336 MARNI MARNI ALLERGEN 3 LUIS ALFREDO LUIS ALFREDO IMMUNOTHE RAPY 1/RESOURCE EFFICIENCY MANAGER ANTIGEN PROF [facility] 04205 MARNI MARNI ALLG 3 LUIS ALFREDO LUIS ALFREDO IMMNTX X W/PRV ALLGIC XTRCS NJXS PROF [facility] 25286 MARNI MARNI ALLG 3 LUIS ALFREDO LUIS ALFREDO IMMNTX X W/PRV ALLGIC XTRCS NJXS COLLECTIO 29015 [facility] N VENOUS 3 [facility] BLOOD INC INC VENIPUNCT URE COMPREHEN 26494 [facility] SIVE 3 [facility] METABOLIC INC INC PANEL BLOOD 62334 [facility] COUNT 3 [facility] COMPLETE INC INC AUTO&AUTO DIFRNTL WBC SUSCEPTIB 16388 [facility] LTY STDY 3 [facility] ANTIMICRB INC INC IAL MICRO/AGA R DILUTJ URNLS DIP 14716 [facility] 3 [facility] STICK/TAB INC INC LET REAGENT AUTO MICROSCOP Y CULTURE 08475 [facility] BACTERIAL 3 [facility] INC INC QUANTTATI VE COLONY COUNT URINE CULTURE 28811 [facility] BCT 3 [facility] ISOL&PRSM INC INC PTV ID ISOLATE EA URINE DXA BONE 43440 [facility] 3 MEDICAL AYLA STUDY 1/> IMAGING SITES ASS AXIAL SKEL CANE INCL E0100 CRISTIN CRISTIN CANES 3 HOME HOME ALL MEDICAL MEDICAL MATERIAL EQUIPME EQUIPME ADJUSTBLE /FIX W/TIP RADIOLOGI 20975 [facility] EXAM 3 MEDICAL AYLA KNEE IMAGING COMPLETE ASS 4/MORE VIEWS PROF [facility] 68834 MARNI MARNI ALLG 3 LUIS ALFREDO LUIS ALFREDO IMMNTX X W/PRV ALLGIC XTRCS NJXS RADIOLOGI 33679 [facility] EXAM 3 MEDICAL AYLA CHEST 2 IMAGING VIEWS ASS FRONTAL&L ATERAL PROF [facility] 72801 MARNI MARNI ALLG 3 LUIS ALFREDO LUIS ALFREDO IMMNTX X W/PRV ALLGIC XTRCS NJXS URNLS DIP 84105 [facility] 3 VALLEY CECE STICK/TAB INTERNAL LET RGNT MEDI NON-AUTO W/O MICRSCP CULTURE 29902 COMBINED COMBINED BACTERIAL 3 PHYSICIAN PHYSICIAN S LA S LA QUANTTATI VE COLONY COUNT URINE PROF [facility] 03396 MARNI MARNI ALLG 3 LUIS ALFREDO LUIS ALFREDO IMMNTX X W/PRV ALLGIC XTRCS NJXS COLLECTIO 85346 [facility] N VENOUS 3 [facility] [place] [address] [facility] BLOOD/URI 3 [facility] C ACID INC INC PROF SVCS 40185 MARNI MARNI ALLG 3 LUIS ALFREDO LUIS ALFREDO IMMNTX X W/PRV ALLGIC XTRCS NJXS PROF SVCS 80018 MARNI MARNI ALLG 3 LUIS ALFREDO LUIS ALFREDO IMMNTX X W/PRV ALLGIC XTRCS NJXS PROF SVCS 98710 MARNI MARNI ALLG 3 LUIS ALFREDO LUIS ALFREDO IMMNTX X W/PRV ALLGIC XTRCS NJXS PROF SVCS 62351 MARNI MARNI ALLG 3 LUIS ALFREDO LUIS ALFREDO IMMNTX X W/PRV ALLGIC XTRCS NJXS PROF SVCS 98967 MARNI MARNI ALLG 3 LUIS ALFREDO LUIS ALFREDO IMMNTX X W/PRV ALLGIC XTRCS NJXS PERCUTANE 74434 MARNI MARNI OUS TESTS 3 LUIS ALFREDO LUIS ALFREDO W/ALLERGE ALVARADO EXTRACTS SPMTRY 21048 MARNI MARNI W/VC 3 LUIS ALFREDO LUIS [...] SUPPLIES SUPPLIES HIGH CALIBRATO R SOLUTION/ [facility] A4258 M E D M E [...] PHARMACY PREP&SPL SHOE MX DNSITY INSRT SPMTRY 13662 MARNI MARNI W/VC 3 LUIS ALFREDO LUIS ALFREDO EXPIRATOR Y LULU W/WO MXML VOL VNTJ CYSTOURET 94938 [facility] PHILIP JR HROSCOPY 3 [facility] P SCREENING G0202 [facility] MEDICAL AYLA MAMMOGRAP IMAGING HY DURGA ASS INCL CAD WHEN PERFORMD LOCM Q9965 [facility] 100-199 3 [facility] MG/ML INC INC IODINE CONCENTRA TION PER ML URETHROCY 06319 [facility] CORONEL STOGRAPHY 3 MEDICAL AYLA VOIDING IMAGING RS&I ASS NJX 47011 [facility] CORONEL RETROGRAD 3 MEDICAL AYLA E IMAGING URETHROCS ASS TOGRAPY COMPUTER- 46964 [facility]EL AIDED 3 MEDICAL AYLA DETECTION IMAGING [place] [address] [facility] TRANSVAGI 3 [facility] NAL INC INC CULTURE 35511 COMBINED COMBINED BACTERIAL 3 PHYSICIAN PHYSICIAN S LA S LA QUANTTATI VE COLONY COUNT URINE URNLS DIP 74189 [facility] 3 [facility] STICK/TAB INTERNAL INTERNAL LET RGNT MEDI MEDI NON-AUTO W/O MICRSCP IM ADM 26421 [facility] PRQ ID 3 [place] CECE SUBQ/IM INTERNAL NJXS 1 MEDI VACCINE INJECTION J0696 [facility] 3 [facility] CEFTRIAXO INTERNAL NE SODIUM MEDI PER [facility] 25167 [facility] [address] [place] [address] INTERNAL MANAGEMEN MED T 30 MIN/< SBSQ [address] [place] [address] CARE/DAY INTERNAL 25 MED MINUTES SBSQ [address] [place] [address] CARE/DAY INTERNAL 25 MED MINUTES SBSQ [address] [place] [address] CARE/DAY INTERNAL 25 MED MINUTES 59825 [facility] CORONEL RETROPERI 3 MEDICAL AYLA TONEAL IMAGING REAL TIME ASS W/IMAGE COMPLETE FULL FACE A7030 [facility] LIBERTY MASK 3 MEDICAL MEDICAL USED SUPPLY SUPPLY W/POS INC. INC. Ztail DEVICE EA SBSQ [address] [place] [address]/DAY INTERNAL 25 MED MINUTES INITIAL 97642 [facility] 3 [place] JR PETR CARE/DAY INTERNAL 50 MED MINUTES SCREEN Q0091 WOMEN'Mamta CARIAS PAP 3 [facility] S[facility]; CLINIC OF OBTAIN SONIA PREP &C ONVEY TO LAB CULTURE 36727 COMBINED COMBINED BACTERIAL 3 PHYSICIAN PHYSICIAN S LEVI Oleary LA QUANTTATI VE COLONY COUNT URINE URNLS DIP 67107 [facility] STICK/TAB CLINIC OF LET RGNT SONIA NON-AUTO W/O MICRSCP CERV/VAGI G0101 [facility] NAL 3 [facility] OF SCR; SONIA PELV&CLIN BREAST EXAM SCR G0145 PATHOLOGY PATHOLOGY CYTOPATH 3 & & CERV/VAG CYTOLOGY CYTOLOGY SCR LAB LAB AUTO&MNL RSCR PHYS URNLS DIP 48318 [facility] 3 [facility] STICK/TAB INTERNAL LET RGNT MEDI NON-AUTO W/O MICRSCP CULTURE 48955 COMBINED COMBINED BACTERIAL 3 PHYSICIAN PHYSICIAN S LEVI Oleary LA QUANTTATI VE COLONY COUNT URINE CULTURE 81116 [facility] BACTERIAL 3 [facility] INC INC QUANTTATI VE COLONY COUNT URINE CULTURE 15673 [facility] BCT 3 [facility] ISOL&PRSM INC INC PTV ID ISOLATE EA URINE LIPID 01882 [facility] PANEL 3 [facility] INC INC HEMOGLOBI 65200 [facility] N 3 [facility] GLYCOSYLA INC INC ML A1C BLOOD 16629 [facility] COUNT 3 [facility] COMPLETE INC INC AUTO&AUTO DIFRNTL WBC SUSCEPTIB 82972 [facility] LTY STDY 3 [facility] ANTIMICRB INC INC IAL MICRO/AGA R DILUTJ ALBUMIN 24710 [facility] URINE 3 [facility] MICROALBU INC INC MIN QUANTIATI VE COLLECTIO 57842 [facility] N VENOUS 3 [facility] BLOOD INC INC VENIPUNCT URE COMPREHEN 99382 [facility] SIVE 3 [facility] [place] [address] [facility] THYROID 3 [facility] STIMULATI INC INC NG HORMONE TSH INITIAL 67109 [facility] INPATIENT 3 PSC CONSULT NEW/ESTAB PT 80 MIN SBSQ 85340 [facility] 3 PSC CARE/DAY 35 MINUTES SBSQ 53649 INPATIENT [facility] 3 CARE, CARE/DAY PLLC 25 MINUTES SBSQ 01248 INPATIENT [facility] 3 CARE, CARE/DAY PLLC 35 MINUTES NEBULIZER E0570 CRISTIN AMARAL WITH 3 HOME HOME [facility] R EQUIPME EQUIPME SBSQ 09297 INPATIENT [facility] 3 CARE, CARE/DAY PLLC 25 MINUTES SBSQ 84856 INPATIENT [facility] 3 CARE, CARE/DAY PLLC 35 MINUTES INITIAL 93042 INPATIENT [facility] 3 CARE, CARE/DAY PLLC 50 MINUTES BLD GLU A4253 M E D M E D TEST/REAG 2 SUPPLIES SUPPLIES T STRIPS HOME BLD GLU SUN- LANCETS A4259 M E D M E D PER BOX 2 SUPPLIES SUPPLIES OF 100 RADIOLOGI 39511 [facility] EXAM 2 MEDICAL AYLA CHEST 2 IMAGING VIEWS ASS FRONTAL&[place] [address] [facility] INFUSION 2 [facility] THERAPY/P INC INC ROPHYLAXI S /DX 1ST TO 1 HR BLOOD 58802 [facility] COUNT 2 [facility] COMPLETE INC INC AUTO&AUTO DIFRNTL WBC SUSCEPTIB 77777 [facility] LTY STDY 2 [facility] ANTIMICRB INC INC IAL MICRO/AGA R DILUTJ URNLS DIP 90802 [facility] 2 [facility] STICK/TAB INC INC LET REAGENT AUTO MICROSCOP Y THERAPEUT 30509 [facility] IC 2 [facility] INJECTION [place] [address] [facility] INFUSION 2 [facility] THERAPY INC INC PROPHYLAX IS/DX EA HOUR BASIC 61043 [facility] METABOLIC 2 [facility] PANEL INC INC CALCIUM TOTAL CULTURE 80201 [facility] BACTERIAL 2 [facility] INC INC QUANTTATI VE COLONY COUNT URINE CULTURE 39683 [facility] BCT 2 [facility] MEM [...] INC. INC. DEVC W/WO HEAD STRAP RADEX 48007 [facility] 2 MEDICAL AYLA MINIMUM 2 IMAGING VIEWS ASS RADEX 75030 [facility] FINGR 2 MEDICAL AYLA MINIMUM 2 IMAGING VIEWS ASS RADIOLOGI 28345 [place] [place] C 2 MEDICAL AYLA EXAMINATI IMAGING ON KNEE ASS 1/2 VIEWS BLD GLU A4253 [facility] TEST/REAG 2 [facility] T [facility]IPS PHARMACY PHARMACY HOME BLD LLC, D LLC, D GLU MON-50 NEBULIZER E0570 CRISTIN AMARAL WITH 2 HOME HOME [facility] MEDICAL R EQUIPME EQUIPME COLONOSCO 28095 COLOR[facility] PALOMO PY 2 L SURGIAL CATRACHITO W/BIOPSY SINGLE/MU ASSOCIATE LTIPLE SPECIAL 71590 [facility] STAIN 2 MU-ISM MU-ISM GROUP 1 HOSP HOSP MICROORGA NISMS I&[place] [address] [facility] SURG 2 MU-ISM MU-ISM PATHOLOGY HOSP HOSP GROSS&SHANTHI ROSCOPIC EXAM RADEX 21041 [facility]TR[facility] SMALL 2 MU-ISM MU-ISM INTESTINE HOSP HOSP W/MULTIPL E SERIAL IMAGES EGD 92412 COLORECTA PALOMO TRANSORAL 2 L SURGIAL CATRACHITO BIOPSY SINGLE/MU ASSOCIATE LTIPLE ENDOSCOPY 66561 MU-ISM MU-ISM UPPER 2 PHYS SURG PHYS SURG SMALL CTR CTR INTESTINE W/BIOPSY ANES 72742 [facility] FERGUSON LOWER 2 [place] JAM INTESTINE ANESTHESI A ENDOSCOPY DISTAL DUODENUM RADIOLOGI 70734 [facility] [place] GARCIA C 2 RADIOLOGY RAY EXAMINATI ON CHEST SINGLE VIEW FRONTAL ECG 21042 [facility] MARCELINO ROUTINE 2 KAMAR DEIDRA ECG EMERGENCY W/LEAST PHYS 12 LDS I&R ONLY NEBULIZER E0570 CRISTIN AMARAL WITH 2 HOME HOME [facility] MEDICAL R EQUIPME EQUIPME BLD GLU A4253 [facility] TEST/REAG 2 CVS CVS T STRIPS PHARMACY PHARMACY HOME BLD LLC, D LLC, D GLU MON-50 CYANOCOBA 95173 LAB [facility] PRATEEK 2 AMERIC AMERIC VITAMIN HOLDING [place]ING B-[address] [place] [address] LAB [facility] LIPASE 2 [employer] [employer] HOLDING HOLDING ADMINISTR G0008 HORIZON BAZZI ATION OF 2 HEALTHCAR TAR INFL[place] [address] LAB [facility] FOLIC 2 AMERIC [employer] [place] [address] LAB [facility] AMYLASE 2 [employer] HOLDING HOLDING ACUTE 30831 LAB [facility] HEPATITIS 2 AMERIC AMERIC PANEL HOLDING HOLDING INFLUENZA Q2036 [facility] BAZZI VACC 2 HEALTHCAR TAR SPLIT E CENTER VIRUS 3 YRS & > IM FLULAVAL HEMOGLOBI 49287 [facility] YANIRA N 2 AMERIC AMERIC GLYCOSYLA HOLDING HOLDING ML A1C NEBULIZER E0570 CRISTIN AMARAL WITH 2 HOME HOME [facility] MEDICAL MEDICAL R EQUIPME EQUIPME HOME E0607 [facility] BLOOD 2 CVS CVS GLUCOSE PHARMACY PHARMACY MONITOR LLC, D LLC, D COMPREHEN 75829 LAB [facility] SIVE 2 [employer]IC [employer] METABOL[place] [address] LAB [facility] THYROID 2 AMERIC AMERIC STIMULATI HOLDING HOLDING NG HORMONE TSH HEPATITIS 20677 [facility] ANTIBODY 2 AMERIC AMERIC HAAB IGM HOLDING HOLDING ANTIBODY LANCETS A4259 [facility] PER BOX 2 CVS CVS OF 100 [...] OSCAR BG MON OWN PT EA SBSQ 55481 [facility] 2 PSC CARE/DAY 25 MINUTES SET-UP Q0092 [facility] PORTABLE 2 MOBILE MOBILE X-RAY DIAGNOSTI DIAGNOSTI EQUIPMENT C SE C SE RADEX 79823 [facility] SPINE 2 MOBILE MOBILE CERVICAL DIAGNOSTI DIAGNOSTI 2 OR 3 C SE C SE VIEWS TRANS R0070 [facility] PRTBL 2 MOBILE MOBILE X-RAY DIAGNOSTI DIAGNOSTI EQP&PERS C SE C SE OSCAR/NRS OSCAR-TRIP 1 PT SBSQ 87198 [facility] 2 PSC CARE/DAY 25 MINUTES SBSQ 41143 INPATIENT [facility] 2 CARE, CARE/DAY PLLC [address] [facility] [place] ROUTINE 2 FORTINO CAROLYN ECG CARDIOLOG W/LEAST Y CLINIC 12 LDS I&[place] [address] [facility] [place] PETER HEAD/BRAI 2 RADIOLOGY JULIÁN N W/O CONTRAST MATERIAL SBSQ 39583 [facility] 2 PSC CARE/DAY 25 MINUTES SBSQ 87811 [facility] 2 PSC CARE/DAY 25 MINUTES NEBULIZER E0570 CRISTIN AMARAL WITH 2 HOME HOME [facility]ICAL R EQUIPME EQUIPME DUP-SCAN 84768 [facility] [place] BRIZUELA JAM XTR VEINS 2 RADIOLOGY UNILATERA L/LIMITED STUDY ECG 15301 [facility] ROUTINE 2 MOBILE MOBILE ECG DIAGNOSTI DIAGNOSTI W/LEAST C SE C SE 12 LDS TRCG ONLY W/O I&R TRANS R0075 [facility] PRTBL 2 MOBILE MOBILE XRAY DIAGNOSTI DIAGNOSTI EQP&PERS C SE C SE OSCAR/NRS OSCAR-TRIP> 1 PT SET-UP Q0092 [facility] PORTABLE 2 MOBILE MOBILE X-RAY DIAGNOSTI DIAGNOSTI EQUIPMENT C SE C SE RADIOLOGI 77873 [facility] C EXAM 2 MOBILE MOBILE CHEST 2 DIAGNOSTI DIAGNOSTI VIEWS C SE C SE FRONTAL&L ATERAL SBSQ 10359 [facility] 2 PSC CARE/DAY 35 MINUTES COLLECTIO 46504 [facility] N VENOUS 2 [facility] BLOOD INC INC VENIPUNCT URE DNA 32575 [facility] ANTIBODY 2 [facility] UPPER SKAGIT/DO INC INC UBLE STRANDED DNA 57367 [facility] ANTIBODY 2 [facility] SINGLE INC INC STRANDED IM ADM 54737 [facility] PRQ ID 2 VALLEY CECE SUBQ/IM INTERNAL NJXS 1 MEDI VACCINE BASIC 37221 [facility] METABOLIC 2 [facility] PANEL INC INC CALCIUM TOTAL ANTINUCLE 03024 [facility] AR 2 [facility] ANTIBODIE INC INC S NADINE SEDIMENTA 68815 [facility] TION RATE 2 [facility] RBC INC INC NON-AUTOM ATED SKIN TEST 52577 [facility] 2 VALLEY CECE TUBERCULO INTER[place] [address] [facility] LIPASE 2 [facility] INC INC COLLECTIO 30480 [facility] N VENOUS 2 [facility] BLOOD INC INC VENIPUNCT URE COMPREHEN 66046 [facility] SIVE 2 [facility] [place] [address] [facility] AMYLASE 2 [place] [address] [facility] THYROID 2 [facility] STIMULATI INC INC NG HORMONE TSH BLOOD 02512 [facility] COUNT 2 [facility] COMPLETE INC INC AUTO&AUTO DIFRNTL WBC CARCINOEM 59950 [facility] BRYONIC 2 [facility] ANTIGEN INC INC CEA NEBULIZER E0570 CRISTIN AMARAL WITH 2 HOME HOME [facility]ICAL R EQUIPME EQUIPME COLLECTIO 57313 [facility] N VENOUS 2 Y Y BLOOD [facility] VENIPUNCT URE INJECTION J2405 [facility] 2 [facility] H[facility] PER 1 MG LOCM Q9967 [facility] [phone] 2 Y Y MG/ML [facility] [place] [address] [place] PO[place] TOD MAXILLOFA 2 MEDICAL CIAL SERV W/CONTRAS FOUNDATIO T MATERIAL BASIC 05318 [facility] METABOLIC 2 Y Y PANEL [facility] [place] [address] [facility] INFUSION 2 Y Y THERAPY/P [facility] ROPHYLAXI S /DX 1ST TO 1 HR BLOOD 66453 [facility] COUNT 2 Y Y COMPLETE [facility] AUTO&AUTO DIFRNTL WBC THERAPEUT 06326 [facility] IC 2 Y Y INJECTION [facility] IV PUSH EACH NEW DRUG INJECTION J2270 [facility] MORPHINE 2 Y Y SULFATE [facility] UP TO 10 MG PREPJ& 90259 MARNI REYNAGAURN ALLERGEN 2 LUIS ALFREDO LUIS ALFREDO IMMUNOTHE TITIY 1/RESOURCE EFFICIENCY MANAGER ANTIGEN NEBULIZER E0570 CRISTIN AMARAL WITH 2 HOME HOME [facility]ICAL R EQUIPME EQUIPME PROF [facility] 18485 MARNI MARNI ALLG 2 LUIS ALFREDO LUIS ALFREDO IMMNTX X W/PRV ALLGIC XTRCS NJXS PROF [facility] 75043 MARNI MARNI ALLG 2 [facility] AL[facility] LUIS ALFREDO IMMNTX X W/PRV ALLGIC XTRCS NJXS PROF [facility] 75480 MARNI MARNI ALLG 2 LUIS ALFREDO LUIS [...] SUPPLIES HIGH CALIBRATO R SOLUTION/ [facility] PROF [facility] 53666 MARNI MARNI ALLG 2 LU[facility] AL[facility] LUIS ALFREDO IMMNTX X W/PRV ALLGIC XTRCS NJXS PROF SVCS 16465 MARNI MARNI ALLG 2 LUIS ALFREDO LUIS ALFREDO IMMNTX X W/[place] [address] [facility] TROPONIN 2 [facility] QUANTITAT INC INC ANNABELLA NATRIURET 45616 [facility] IC 2 [facility] PEPTIDE INC INC BLOOD 46391 [facility] COUNT 2 [facility] COMPLETE INC INC AUTO&AUTO DIFRNTL WBC ECG 04220 [facility] FATIMA ROUTINE 2 EMERGENCY PETR ECG SERVICES W/LEAST 12 LDS I&R ONLY CREATINE 34239 [facility] KINASE 2 [facility] TOTAL INC INC THER 12412 [facility] PROPH/DX 2 [facility] NJX IV INC INC PUSH SINGLE/1S T SBST/DRUG ECG 71185 [facility] ROUTINE 2 [facility] ECG INC INC W/LEAST 12 LDS TRCG ONLY W/O I&R COMPREHEN 94710 [facility] SIVE 2 [facility] METABOLIC INC INC PANEL CREATINE 39364 [facility] KINASE MB 2 [facility] FRACTION INC INC ONLY RADIOLOGI 79681 [facility] C 2 [facility] EXAMINATI INC [place] [address] MARNI MARNI ALLG 2 [facility] AL[facility] LUIS ALFREDO IMMNTX X W/PRV ALLGIC XTRCS NJXS PROF SVCS 56311 MARNI MARNI ALLG 2 [facility] ALFR[facility] LUIS ALFREDO IMMNTX X W/PRV ALLGIC XTRCS NJXS PROF SVCS 51126 MARNI MARNI ALLG 2 [facility] AL[facility] LUIS ALFREDO IMMNTX X W/PRV ALLGIC XTRCS NJXS CULTURE 17576 [facility] BACTERIAL 2 [facility] INC INC QUANTTATI VE COLONY COUNT URINE CULTURE 68393 [facility] BCT 2 [facility] ISOL&PRSM INC INC PTV ID ISOLATE EA URINE 3D 38426 [facility] RENDERING 2 [facility] INC INC W/INTERP& POSTPROC DIFF WORK STATION COMPREHEN 40407 [facility] SIVE 2 [facility] METABOLIC INC INC PANEL INJECTION J2405 [facility] 2 [facility] ONDANSETR INC INC [place]CL [place] [address] [place] [address] [facility] ABDOMEN & 2 [facility] PELVIS INC INC W/O CONTRAST MATERIAL THER 44602 [facility] PROPH/DX 2 [facility] NJX IV INC INC PUSH SINGLE/1S T SBST/DRUG BLOOD 24125 [facility] COUNT 2 [facility] COMPLETE INC INC AUTO&AUTO DIFRNTL WBC SUSCEPTIB 50638 [facility] LTY STDY 2 [facility] ANTIMICRB INC INC IAL MICRO/AGA R DILUTJ URNLS DIP 25302 [facility] MENDING 2 [facility] HEARTS STICK/TAB INC LET REAGENT AUTO MICROSCOP Y THERAPEUT 70220 [facility] IC 2 [facility] INJECTION INC INC IV PUSH EACH NEW DRUG PROF [facility] 11311 MARNI MARNI ALLG 2 [facility] IMMNTX X W/PRV ALLGIC XTRCS NJXS NEBULIZER E0570 CRISTIN AMARAL WITH 2 HOME HOME [facility] R EQUIPME EQUIPME PROF [facility] 88527 MARNI MARNI ALLG 2 [facility] IMMNTX X W/PRV ALLGIC XTRCS NJXS PROF [facility] 14718 MARNI MARNI ALLG 2 [facility] AL[facility]O LUIS ALFREDO IMMNTX X W/PRV ALLGIC XTRCS NJXS PROF [facility] 56217 MARNI MARNI ALLG 2 [facility] AL[facility] LUIS ALFREDO IMMNTX X W/PRV ALLGIC XTRCS NJXS PROF [facility] 86941 MARNI MARNI ALLG 2 [facility] AL[facility] LUIS ALFREDO IMMNTX X W/PRV ALLGIC XTRCS NJXS RADEX 63252 [place] [facility] FOOT 2 MEDICAL AYLA COMPLETE IMAGING MINIMUM 3 ASS VIEWS COMPREHEN 12313 [facility] SIVE 2 [facility] METABOLIC INC INC PANEL SEDIMENTA 36356 [facility] TION RATE 2 [facility] [place] [address] [facility] BLOOD/URI 2 [facility] C ACID INC INC BLOOD 02023 [facility] COUNT 2 [facility] COMPLETE INC INC AUTO&AUTO DIFRNTL WBC URNLS DIP 02542 [facility] 2 [facility] STICK/TAB INC INC LET REAGENT AUTO MICROSCOP Y PROF [facility] 83134 MARNI MARNI ALLG 2 [facility] LU[facility] ALFR[facility] IMMNTX X W/PRV ALLGIC XTRCS NJXS PROF [facility] 42421 MARNI MARNI ALLG 2 [facility] AL[facility] LUIS ALFREDO IMMNTX X W/PRV ALLGIC XTRCS NJXS PROF [facility] 35334 MARNI MARNI ALLG 2 [facility] LUIS ALFREDO IMMNTX X W/PRV ALLGIC XTRCS NJXS NEBULIZER E0570 CRISTIN AMARAL WITH 2 HOME HOME [employer] R EQUIPME EQUIPME PROF [facility] 02630 MARNI MARNI ALLG 2 [facility] AL[facility] LUIS ALFREDO IMMNTX X W/PRV ALLGIC XTRCS NJXS PROF [facility] 39577 MARNI MARNI ALLG 2 [facility] ALFR[facility]O LUIS ALFREDO IMMNTX X W/PRV ALLGIC XTRCS NJXS PROF [facility] 52688 MARNI MARNI ALLG 2 [facility] ALFREDO LUIS ALFREDO IMMNTX X W/PRV ALLGIC XTRCS NJXS PROF [facility] 99670 MARNI MARNI ALLG 2 [facility] LUIS ALFREDO IMMNTX X W/PRV ALLGIC XTRCS NJXS PREPJ& 98405 MARNI MARNI ALLERGEN 2 [facility] IMMUNOTHE RAPY 1/RESOURCE EFFICIENCY MANAGER ANTIGEN CULTURE 39623 [facility] BACTERIAL [facility] INC INC QUANTTATI VE COLONY COUNT URINE CULTURE 62963 [facility] BCT 2 [facility] ISOL&PRSM INC INC PTV ID ISOLATE EA URINE LIPID 76522 [facility] PANEL 2 [facility] INC BLOOD 42712 [facility] COUNT 2 [facility] COMPLETE INC INC AUTO&AUTO DIFRNTL WBC SUSCEPTIB 13103 [facility] LTY STDY 2 [facility] ANTIMICRB INC INC IAL MICRO/AGA R DILUTJ URNLS DIP 44538 [facility] STICK/TAB INC [place] [address] MARNI MARNI ALLG 2 [facility] LUIS ALFREDO IMMNTX X W/PRV ALLGIC XTRCS [facility] COLLECTIO 70583 [facility] N VENOUS 2 [facility] BLOOD INC INC VENIPUNCT URE COMPREHEN 90536 [facility] SIVE 2 [facility] [place] [address] [facility] THYROID 2 MEM [facility] STIMULATI INC INC NG [facility]ORMONE [facility] PROF [facility] 21088 MARNI MARNI ALLG 2 LUIS ALFREDO LUIS ALFREDO IMMNTX X W/PRV ALLGIC XTRCS NJXS SPMTRY 78066 MARNI MARNI W/VC 2 LUIS ALFREDO LUIS ALFREDO EXPIRATOR Y LULU W/WO MXML VOL VNTJ PROF SVCS 19270 MARNI MARNI ALLG 2 LUIS ALFREDO LUIS ALFREDO IMMNTX X W/PRV ALLGIC XTRCS NJXS PROF SVCS 28706 MARNI MARNI ALLG 2 LUIS ALFREDO LUIS ALFREDO IMMNTX X W/PRV ALLGIC XTRCS NJXS PROF SVCS 34358 MARNI MARNI ALLG 2 LUIS ALFREDO LUIS ALFREDO IMMNTX X W/PRV ALLGIC XTRCS NJXS GLUC BLD 72395 BR[facility]ON T[facility] GLUC MNTR 2 [facility] DEV INC INC CLEARED FDA SPEC HOME USE COLLECTIO 85899 BR[facility] N VENOUS 2 [facility] BLOOD INC INC VENIPUNCT URE COMPREHEN 17509 BR[facility] T[facility] SIVE 2 [facility] METABOLIC INC INC PANEL INJECTION J2405 [facility] 2 [facility] ONDANSETR INC INC ON HCL PER 1 [facility] G0378 [facility] OBSERVATI 2 [facility] ON INC INC SERVICE PER HOUR NEBULIZER E0570 CRISTIN AMARAL WITH 2 HOME HOME COMPRESSO MEDICAL MEDICAL R EQUIPME EQUIPME BLOOD 03907 BRANDON BRANDON COUNT 2 [facility] COMPLETE INC INC AUTO&AUTO DIFRNTL WBC PRESSURIZ 47873 BRANDON TAYL[facility] ED/NONPRE 2 [facility] SSURIZED INC INC INHALATIO N TREATMENT NONINVASI 91735 BRANDON TAYLOR VE 2 [facility] EAR/PULSE INC INC OXIMETRY SINGLE DETER OBSERVATI 20978 [place] BESSON ON CARE 2 [facility] DISCHARGE INTERNAL MED MANAGEMEN T CUL BACT 06195 BRANDON BRANDON XCPT 2 [facility] URINE INC INC BLOOD/STO OL AEROBIC ISOL CUL BACT 72796 BRANDON TAYLOR AEROBIC 2 [facility] ADDL INC INC METHS DEFINITIV E EA ISOL CULTURE 42339 BRANDON TAYLOR BACTERIAL 2 [facility] INC INC QUANTTATI VE COLONY COUNT URINE SUSCEPTIB 11930 BRANDON TAYLOR LTY STDY 2 [facility] ANTIMICRB INC INC IAL MICRO/AGA R DILUTJ URNLS DIP 98080 BRANDONKATI TAYLOR 2 [facility] STICK/TAB INC INC LET REAGENT AUTO MICROSCOP Y GLUC BLD 92223 BRANDON TAYLOR GLUC MNTR 2 [facility] DEV INC INC CLEARED FDA SPEC HOME USE BLOOD 46100 BR[facility]ON TAYLOR COUNT 2 [facility] COMPLETE INC INC AUTO&AUTO DIFRNTL WBC INITIAL 97753 [place] MCKEMIE OBSERVATI 2 [facility] JR PETR ON INTERNAL CARE/DAY MED 30 MINUTES SEDIMENTA 24628 BRANDON TAYLOR TIKATI RATE 2 [facility] RBC INC INC NON-AUTOM ATED COLLECTIO 56127 BRANDON ATYLOR N VENOUS 2 [facility] BLOOD INC INC VENIPUNCT URE HOSPITAL G0378 BRANDON TAYLOR OBSERVATI 2 [facility] ON INC INC SERVICE PER HOUR INJECTION J2405 BR[facility] T[facility] 2 [facility] ONDANSETR INC INC ON HCL PER 1 MG COMPREHEN 72420 BRANDON TAYLOR SIVE 2 [facility] METABOLIC INC INC PANEL URNLS DIP 90223 [place] 2 [facility] STICK/TAB INTERNAL INTERNAL LET RGNT MED MED NON-AUTO W/O MICRSCP THERAPEUT 87333 BRANDON T[facility]LOR IC 2 [facility] PROPHYLAC INC INC TIC/DX INJECTION SUBQ/IM PROF SVCS 37919 MARNI MARNI ALLG 2 LUIS ALFREDO LUIS ALFREDO IMMNTX X W/PRV ALLGIC XTRCS NJXS PROF SVCS 16447 MARNI MARNI ALLG 2 LUIS ALFREDO LUIS ALFREDO IMMNTX X W/PRV ALLGIC XTRCS NJXS COLLECTIO 28269 BRANDON T[facility]OR N VENOUS 2 [facility] [place]LOOD [place] [address] BRANDON BRANDON UREA 2 [facility] NITROGEN INC INC QUANTITAT ANNABELLA LOCM Q9967 BRANDON TAYLOR [phone] 2 [facility] MG/ML INC [place] [address] BRANDON TAYLOR HEAD/BRAI 2 [facility] N W/O & INC INC W/[place] [address] BRANDON BRANDON MAXILLOFA 2 [facility] CIAL W/O INC INC & W/CONTRAS T MATERIAL CREATININ 83243 BRANDON TAYLOR E BLOOD 2 [facility] INC INC 3D 23300 BRANDON TAYLOR RENDERING 2 [facility] W/INTERP INC INC & POSTPROCE SS SUPERVISI ON CT ORBIT 06363 [facility] SELLA/POS 2 MEDICAL AYLA T IMAGING FOSSA/EAR ASS W/O & W/[place] [address] [facility] MAXILLOFA 2 MED[facility] CIAL W/[place] [address] [facility] HEAD/BRAI 2 [facility] N W/O IMAGING CONTRAST ASS MATERIAL 3D 00955 BRANDON TAYLOR RENDERING 2 [facility] INC INC W/INTERP& POSTPROC DIFF WORK STATION [facility] A4258 M E D M E [...] CELL OSCAR BG MON OWND PT PROF [facility] 31583 MARNI MARNI ALLG 2 LUIS ALFREDO LUIS ALFREDO IMMNTX X W/PRV ALLGIC XTRCS NJXS PROF [facility] 36170 MARNI MARNI ALLG 2 LUIS ALFREDO LUIS ALFREDO IMMNTX X W/PRV ALLGIC XTRCS NJXS FUNDUS 16570 KENZIE ESPINO PHOTOGRAP 2 JAM JAM HY W/INTERPR ETATION & REPORT VISUAL 33791 KENZIE ESPINO FIELD XM 2 JAM JAM UNI/BI W/INTERP EXTENDED EXAM PROF [facility] 36582 MARNI MARNI ALLG 2 LUIS ALFREDO LUIS ALFREDO IMMNTX X W/PRV ALLGIC XTRCS NJXS PREPJ& 64426 MARNI MARNI ALLERGEN 2 LUIS ALFREDO LUIS ALFREDO IMMUNOTHE RAPY 1/RESOURCE EFFICIENCY MANAGER ANTIGEN DEMO&/POLLY 12684 MARNI MARNI L OF PT 2 LUIS ALFREDO LUIS ALFREDO UTILIZ AERSL GEN/NEB/I NHLR/IP BRNCDILAT 62307 MARNI MARNI RSPSE 2 LUIS ALFREDO LUIS ALFREDO SPMTRY PRE&POST- BRNCDILAT ADMN PERCUTANE 47157 MARNI MANN OUS TESTS 2 LUIS ALFREDO BET W/ALLERGE ALVARADO EXTRACTS INTRACUTA 37898 MARNI MARNI NEOUS 2 LUIS ALFREDO LUIS ALFREDO TESTS W/ALLERGE ALVARADO EXTRACTS NEBULIZER E0570 CRISTIN AMARAL WITH 2 HOME HOME COMPRESSO MEDICAL MEDICAL R [facility] [address] [facility] DISCHARGE 2 [facility] DAY INTERNAL MANAGEMEN MED T 30 MIN/< SBSQ 58622 [place] [facility] 2 [facility] CARE/DAY INTERNAL 25 MED MINUTES INITIAL 17754 [facility] CARE/DAY INTERNAL 50 MED MINUTES RADIOLOGI 16643 [facility] C EXAM 2 MEDICAL [facility]YLA CHEST 2 IMAGING VIEWS ASS FRONTAL&L ATERAL INJECTION J3301 [facility] 2 [facility] TRIAMCINO INTERNAL INTERNAL LONE MEDI MEDI ACETONIDE NOS 10 MG THERAPEUT 38056 [place] MUSTAPHA IC 2 [facility] PROPHYLAC INTERNAL TIC/DX MEDI INJECTION SUBQ/IM INJECTION J0696 [place] MUSTAPHA 2 [facility] CEFTRIAXO INTERNAL NE SODIUM MEDI PER 250 MG RADIOLOGI 38375 BRANDON TAYL[facility] C 2 [facility] EXAMINATI INC INC [place] [address] BRANDON TAYLOR TROPONIN 2 [facility] QUANTITAT INC INC ANNABELLA NATRIURET 29373 BR[facility]ON TAYLOR IC 2 [facility] PEPTIDE INC INC BLOOD 97424 BRANDON TAYLOR COUNT 2 [facility] COMPLETE INC INC AUTO&AUTO DIFRNTL WBC THERAPEUT 51113 BRANDON TAYLOR IC 2 [facility] INJECTION INC INC IV PUSH EACH NEW DRUG ECG 47658 BRANDON FAJARDO ROUTINE 2 [facility] W/LEAST P 12 LDS I&R ONLY ECG 59330 BRANDON TAYLOR ROUTINE 2 [facility] ECG INC INC W/LEAST 12 LDS TRCG ONLY W/O I&R CREATINE 37696 BRANDON TAY[facility] KINASE 2 [facility] TOTAL INC INC THER 22058 BRANDON TAYLOR PROPH/DX 2 [facility] NJX IV INC INC PUSH SINGLE/1S T SBST/DRUG COMPREHEN 73036 BRANDON TAYLOR SIVE 2 [facility] METABOLIC INC INC PANEL CREATINE 42257 BRANDON TAYLOR KINASE MB 2 [facility] FRACTION INC INC ONLY INJECTION J2405 [facility] T[facility] 2 [facility] ONDANSETR INC INC ON HCL PER 1 MG OPHTHALMO 03426 KENZIE ESPINO SCPY 2 [facility] EXTENDED RETINAL DRAWING I&R 1ST DETERMINA 05101 KENZIE ESPINO TION 2 [facility] REFRACTIV E STATE NEBULIZER E0570 CRISTIN AMARAL WITH 2 HOME HOME COMPRESSO MEDICAL MEDICAL R EQUIPME EQUIPME NEBULIZER E0570 CRISTIN AMARAL WITH 2 HOME HOME COMPRESSO MEDICAL MEDICAL R EQUIPME EQUIPME ADMN SET A7003 YOUR YOUR SM VOL 2 PHARMACY PHARMACY NONFILTR CartoDB PNEUMAT NEBULIZR DISPBL PHARM G0333 YOUR YOUR DISPEN 2 PHARMACY PHARMACY FEE INHAL CartoDB RX; INITIAL 30-DAY SUPPLY ALBUTEROL J7613 YOUR YOUR INHAL 2 PHARMACY PHARMACY NON-CP Carto[employer] PROD THRU DME U DOSE 1 MG RADIOLOGI 76584 [facility] EXAM 2 MEDICAL AYLA CHEST 2 IMAGING VIEWS ASS FRONTAL&L ATERAL NONINVASI 13013 [place] [facility] 2 [facility] EAR/PULSE INTERNAL OXIMETRY MEDI SINGLE DETER RADIOLOGI 41240 [facility] EXAM 2 MEDICAL AYLA CHEST 2 IMAGING VIEWS ASS FRONTAL&[place] [address] BRANDON TAYLOR INFUSION 2 [facility] THERAPY/P INC INC ROPHYLAXI S /DX 1ST TO 1 [place] [address] BRANDON TAYLOR TROPONIN 2 [facility] QUANTITAT INC INC ANNABELLA BLOOD 84830 BRANDON TAYLOR COUNT 2 [facility] COMPLETE INC INC AUTO&AUTO DIFRNTL WBC PRESSURIZ 48196 BRANDON TAYL[facility] ED/NONPRE 2 [facility] SSURIZED INC INC INHALATIO N TREATMENT THERAPEUT 40463 [facility] T[facility] IC 2 [facility] INJECTION INC INC IV PUSH EACH NEW DRUG COMPREHEN 47755 BR[facility] T[facility]OR SIVE 2 [facility] METABOLIC INC INC PANEL CREATINE 38728 BRANDON BRANDON KINASE MB 2 [facility] FRACTION INC INC ONLY CREATINE 66744 BRANDON BRANDON KINASE 2 [facility] TOTAL INC INC IAADI 36686 BRANDON BRANDON INFLUENZA 2 [facility] B VIRUS INC INC IAADI 89322 [facility] T[facility] INFFLUENZ 2 [facility] MEM [...] SUPPLIES HIGH CALIBRATO R SOLUTION/ CHIPS LARYNGOSC 36297 EAR, NOSE SHASHY OPY 1 AND SOBEIDA FLEXIBLE THROAT DIAGNOSTI SPECIAL C SMOKE TOB G0436 EAR, NOSE EAR, NOSE 1 AND AND CESSATION THROAT THROAT CNSL SPECIAL SPECIAL PT; INTRMED 3-10 [place] [address] BRANDON TAYLOR INFUSION 1 [facility] THERAPY INC [place] PROPHY[place]X [place] [address] BRANDON TAYLOR INFUSION 1 [facility] THERAPY/P INC INC ROPHYLAXI S /DX 1ST TO 1 HR GLUC BLD 99257 BRANDON TAYLOR GLUC MNTR 1 [facility] DEV INC INC CLEARED FDA SPEC HOME USE ESOPHAGOG 62384 C SOPHIE LYONS ASTRODUOD 1 ELOY MAHER MD [facility] TRANSORAL DIAGNOSTI C LARYNGOSC 06513 EAR, NOSE SHASHY OPY 1 AND SOBEIDA FLEXIBLE THROAT DIAGNOSTI SPECIAL C HEMOGLOBI 94929 COMBINED COMBINED N 1 PHYSICIAN PHYSICIAN GLYCOSYLA S LA S LA ML A1C BASIC 06795 COMBINED COMBINED METABOLIC 1 PHYSICIAN PHYSICIAN [place] [address] COMBINED COMBINED BLOOD/URI 1 PHYSICIAN PHYSICIAN C ACID S LA S LA COLLECTIO 19178 COMBINED COMBINED N VENOUS 1 PHYSICIAN PHYSICIAN BLOOD S LA S LA VENIPUNCT URE CT SOFT 61993 BR[facility] T[facility] TISSUE 1 [facility] NECK W/O INC INC CONTRAST MATERIAL 3D 43581 BRANDON TAYLOR RENDERING 1 [facility] INC INC W/INTERP& POSTPROC DIFF WORK STATION CONTINUOU E0601 CRISTIN AMARAL S 1 HOME HOME POSITIVE MEDICAL MEDICAL AIRWAY EQUIPME EQUIPME PRESSURE DEVICE COLLECTIO 45354 BRANDON TAYLOR N VENOUS 1 [facility] BLOOD INC INC VENIPUNCT URE COMPREHEN 41259 BRANDON TAYLOR SIVE 1 [facility] [place] [address] BRANDON TAYLOR THYROID 1 [facility] STIMULATI [place] [address] BRANDON BRANDON FERRITIN 1 [facility] INC INC BLOOD 05037 BRANDON TAYLOR COUNT 1 [facility] COMPLETE INC INC AUTO&[place] [address] DERMATOLO NARGIS II SURG 1 GY [facility] PATHOLOGY CONSULTAN TS PSC GROSS&SHANTHI ROSCOPIC EXAM REPL DEYSI A4233 M E D M [...] SUPPLIES HIGH CALIBRATO R SOLUTION/ CHIPS RADIOLOGI 09434 [facility] EXAM 1 MEDICAL AYLA CHEST 2 IMAGING VIEWS ASS FRONTAL&L ATERAL THER 52159 BRANDON TAYLOR PROPH/DX 1 [facility] NJX IV INC INC PUSH SINGLE/1S T SBST/DRUG COMPREHEN 34848 BRANDON TAYLOR SIVE 1 [facility] METABOLIC INC INC PANEL AMBULANCE A0429 [facility] SERVICE 1 AMBULANCE AMBULANCE BLS SERVICE SERVICE EMERGENCY TRANSPORT GROUND A0425 [facility] MILEAGE 1 AMBULANCE AMBULANCE PER SERVICE SERVICE STATUTE MILE BLOOD 12549 BR[facility] T[facility] COUNT 1 [facility] COMPLETE INC INC AUTO&AUTO DIFRNTL WBC PRESSURIZ 15801 BRANDON TAYL[facility] ED/NONPRE 1 [facility] SSURIZED INC INC INHALATIO N TREATMENT THERAPEUT 61548 [facility] T[facility] IC 1 [facility] INJECTION INC INC IV PUSH EACH NEW DRUG SUSCEPTIB 96535 BRANDON TAYLOR LTY STDY 1 [facility] ANTIMICRB INC INC IAL MICRO/AGA R DILUTJ CULTURE 81893 BR[facility]ON T[facility] BACTERIAL 1 [facility] INC INC QUANTTATI VE COLONY COUNT URINE CULTURE 80408 BRANDON TAYLOR BCT 1 [facility] ISOL&PRSM INC INC PTV ID ISOLATE EA URINE CHIROPRAC 29282 KAVYA HOFF TIC 1 JANET JANET MANIPULAT ANNABELLA [place] SPINAL 1-2 REGIONS CONTINUOU E0601 CRISTIN JORDANRELL S 1 HOME HOME POSITIVE MEDICAL MEDICAL AIRWAY EQUIPME EQUIPME PRESSURE DEVICE NON-INVAS 35838 [facility] MORRISHOMER ANNABELLA 1 MEDICAL AYLA PHYSIOLOG IMAGING IC STUDY ASS EXTREMITY 3 LEVLS DUP-SCAN 85543 [facility] GARHOMER XTR VEINS 1 MEDICAL AYLA COMPLETE IMAGING ASS BILATERAL STUDY DUP-SCAN 11836 BRANDONKATI TAYLOR XTR VEINS 1 [facility] INC INC UNILATERA L/LIMITED STUDY DEBRIDEME 67888 PAWSAT PAWSAT NT NAIL 1 MAR MAR ANY METHOD 6/> CHIROPRAC 29997 KAVYA HOFF TIC 1 JANET JANET MANIPULAT ANNABELLA [place] SPINAL 1-2 REGIONS CONTINUOU E0601 CRISTIN CRISTIN S 1 HOME HOME POSITIVE MEDICAL MEDICAL AIRWAY EQUIPME EQUIPME PRESSURE DEVICE COMPREHEN 13760 [facility] SIVE 1 [facility] [address] BR[facility] T[facility] AMYLASE 1 [facility] INC INC BLOOD 87102 BR[facility] T[facility] COUNT 1 [facility] COMPLETE INC INC AUTO&AUTO DIFRNTL WBC SUSCEPTIB 19989 BR[facility]ON T[facility] LTY STDY 1 [facility] ANTIMICRB INC INC IAL MICRO/AGA R DILUTJ URNLS DIP 15806 [facility] 1 [facility] STICK/TAB INC INC [place] [address] BR[facility] T[facility] LIPASE 1 [facility] INC INC THERAPEUT 22998 BRANDON BRANDON IC 1 [facility] PROPHYLAC INC INC TIC/DX INJECTION SUBQ/IM CULTURE 00682 BRANDON BRANDON BACTERIAL 1 [facility] INC INC QUANTTATI VE COLONY COUNT URINE CULTURE 41997 BR[facility] T[facility] BCT 1 [facility] ISOL&PRSM INC INC PTV ID ISOLATE EA URINE CHIROPRAC 59431 KAVYA HOFF TIC 1 JANET JANET MANIPULAT ANNABELLA [place] SPINAL 1-2 REGIONS COLLECTIO 88113 BR[facility]ON T[facility] N VENOUS 1 [facility] BLOOD INC INC VENIPUNCT URE COMPREHEN 82792 BR[facility] T[facility] SIVE 1 [facility] [place] [address] BR[facility] T[facility] THYROID 1 [facility] [place] [address] [facility] HOMER ABDOMEN & 1 MEDICAL AYLA PELVIS IMAGING W/CONTRAS ASS T MATERIAL E-STIM G0283 BRANDON TAYLOR 1/> AREAS 1 [facility] OTH THAN INC INC WND CARE PART TX PLAN LIPID 56448 [facility] PANEL 1 [facility] INC INC HEMOGLOBI 95309 [facility] N 1 [facility] GLYCOSYLA INC INC ML A1C THERAPEUT 89871 BRANDON TAYLOR IC PX 1/> 1 [facility] AREAS INC INC EACH 15 MIN EXERCISES 3D 91160 [facility] RENDERING 1 MEDICAL AYLA IMAGING W/INTERP& ASS POSTPROC DIFF WORK STATION APPL 66653 BR[facility] T[facility] MODALITY 1 [facility] 1/> AREAS INC INC ULTRASOUN D EA 15 MIN COMPUTER- 23859 [facility] T[facility] AIDED 1 [facility] DETECTION INC INC SCREENING MAMMOGRAP HY SCREENING G0202 [facility] 1 [facility] MAMMOGRAP INC INC HY DURGA INCL CAD WHEN PERFORMD E-STIM G0283 BRANDON RABAGOON 1/> AREAS 1 [facility] OTH THAN INC INC WND CARE PART TX PLAN THERAPEUT 97869 BRANDON TAYLOR IC PX 1/> 1 [facility] AREAS INC INC EACH 15 MIN EXERCISES APPL 17764 BRANDONKATI TAYLOR MODALITY 1 [facility] 1/> AREAS INC INC ULTRASOUN D EA 15 MIN APPL 39524 BR[facility] T[facility] MODALITY 1 [facility] 1/> AREAS INC INC ULTRASOUN D EA 15 MIN THERAPEUT 43046 BRANDON BRANDON IC PX 1/> 1 [facility] AREAS INC INC EACH 15 MIN EXERCISES CHIROPRAC 36751 KAVYA HOFF TIC 1 JANET JANET MANIPULAT ANNABELLA [place] SPINAL 1-2 REGIONS E-STIM G0283 BRANDON RABAGOON 1/> AREAS 1 [facility] OTH THAN INC INC WND CARE PART TX PLAN E-STIM G0283 BRANDON RABAG[facility]ON 1/> AREAS 1 [facility] OTH THAN INC INC WND CARE PART TX PLAN THERAPEUT 76267 BRANDON TAYLOR IC PX 1/> 1 [facility] AREAS INC INC EACH 15 MIN EXERCISES PHYSICAL 18758 BR[facility] T[facility] THERAPY 1 [facility] EVALUATIO INC INC N APPL 98052 BRANDON BRANDON MODALITY 1 [facility] 1/> AREAS INC INC ULTRASOUN D EA 15 MIN CHIROPRAC 33346 KAVYA HOFF TIC 1 JANET JANET MANIPULAT ANNABELLA [place] SPINAL 1-2 REGIONS CONTINUOU E0601 CRISTIN AMARAL S 1 HOME HOME POSITIVE MEDICAL MEDICAL AIRWAY EQUIPME EQUIPME PRESSURE DEVICE RADEX 04111 [place] [facility] UPPER GI 1 MEDICAL AYLA W/WO IMAGING GLUCAGON/ ASS DELAY IMAGES W/KUB CHIROPRAC 77853 KAVYA HOFF TIC 1 JANET JANET MANIPULAT ANNABELLA [place] SPINAL 1-2 REGIONS CHIROPRAC 59544 [place] TIC 1 JANET JANET MANIPULAT [...] SUPPLIES SUPPLIES HIGH CALIBRATO R SOLUTION/ [facility] 53113 [place] TIC 1 JANET JANET MANIPULAT [place]LL[place] SPINAL 1-2 REGIONS [facility] 81206 [place] TIC 1 JANET JANET MANIPULAT ANNABELL[place] SPINAL 1-2 REGIONS [facility] 73741 [place] TIC 1 JANET JANET MANIPULAT ANNABELL[place] SPINAL 1-2 REGIONS [facility] 90715 [place] TIC 1 JANET JANET MANIPULAT ANNA[place]LL[place] SPINAL 1-2 REGIONS [facility] 76008 [place] TIC 1 JANET JANET MANIPULAT [...] W/POS EQUIPME EQUIPME ARWAY PRESSURE DEVICE CHIROPRA 97004 [place] TIC 1 JANET JANET MANIPULAT ANNABELLA [place] SPINAL 1-2 REGIONS CHIROPRA 69152 [place] TIC 1 JANET JANET MANIPULAT ANNABELLA [place] SPINAL 1-2 REGIONS POLYSOM 86262 [facility] 6/>YRS 1 DEIDRA DEIDRA SLEEP W/CPAP 4/> ADDL JENNIE ATTND POLYSOM 19284 [facility] 6/>YRS 1 DEIDRA DEIDRA SLEEP 4/> ADDL JENNIE ATTND POLYSOM 12512 BRANDON RABAGOON 6/>YRS 1 [facility] SLEEP 4/> INC INC ADDL JENNIE ATTND 3D 36075 [facility] CORONEL RENDERING 1 MEDICAL AYLA W/INTERP IMAGING & ASS POSTPROCE SS SUPERVISI ON MRI 10044 [facility] CORONEL SPINAL 1 MEDICAL AYLA CANAL IMAGING LUMBAR ASS W/O CONTRAST MATERIAL COLLECTIO 53022 BRANDON T[facility]LOR N VENOUS 1 [facility] BLOOD INC INC VENIPUNCT URE COMPREHEN 51103 BR[facility] T[facility]LOR SIVE 1 [facility] [place] [address] BR[facility] T[facility] THYROID 1 [facility] STIMULATI INC INC NG HORMONE TSH BLOOD 09539 BR[facility] TAYLOR COUNT 1 [facility] COMPLETE INC INC AUTO&AUTO DIFRNTL WBC CREATINE 61399 BR[facility] T[facility] KINASE 1 [facility] TOTAL INC INC SEDIMENTA 05514 BR[facility] TAY[facility] TION RATE 1 [facility] RBC INC INC NON-AUTOM ATED THER 43329 BR[facility]ON TAYLOR PROPH/DX 1 [facility] NJX IV INC INC PUSH SINGLE/1S T SBST/DRUG RADIOLOGI 31543 [facility] EXAM 1 [facility] CHEST 2 IMAGING VIEWS ASS FRONTAL&L ATERAL URNLS DIP 73084 BRANDON TAYLOR 1 [facility] STICK/TAB INC INC LET REAGENT AUTO MICROSCOP Y THERAPEUT 63190 BRANDON TAYLOR IC 1 [facility] INJECTION INC INC IV PUSH EACH NEW DRUG AMBULANCE A0429 [facility] SERVICE 1 AMBULANCE AMBULANCE BLS SERVICE SERVICE EMERGENCY TRANSPORT GROUND A0425 [facility] MILEAGE 1 AMBULANCE AMBULANCE PER SERVICE SERVICE STATUTE MILE RADEX 64483 [facility] [place] SPINE 1 MEDICAL AYLA LUMBOSACR IMAGING AL 07/28 ASS VIEWS CULTURE 17523 [facility] T[facility] BACTERIAL 1 [facility] INC INC QUANTTATI VE COLONY COUNT URINE COMPREHEN 02377 [facility] SIVE 1 [facility] METABOLIC INC INC PANEL BLOOD 52518 [facility] COUNT 1 [facility] COMPLETE INC INC AUTO&AUTO DIFRNTL WBC HEMOGLOBI 91281 [facility] N 1 [facility] GLYCOSYLA INC INC ML A1C CYANOCOBA 78076 BRANDON TAYLOR PRATEEK 1 [facility] VITAMIN INC INC B-12 COLLECTIO 91324 BRANDON TAYLOR N VENOUS 1 [facility] BLOOD INC INC VENIPUNCT URE AMB A0427 [facility] SERVICE 1 AMBULANCE AMBULANCE ALS SERVICE SERVICE EMERGENCY TRANSPORT LEVEL 1 RADIOLOGI 12427 [facility] [place] C 1 MEDICAL AYLA EXAMINATI IMAGING ON CHEST ASS SINGLE VIEW FRONTAL GROUND A0425 [facility] PER SERVICE SERVICE STATUTE MILE ECG 08675 BRANDON FAJARDO ROUTINE 1 [facility] W/LEAST P 12 LDS I&R ONLY MYOCARDIA 65392 [facility] Yoon SPECT 1 [facility] MULTIPLE INC INC STUDIES TECHNETIU A9502 BRANDON Wayne TC-99M 1 [facility] TETROFOSM INC INC IN DX PER STUDY DOSE CV STRS 46048 BR[facility] TAYLOR TST 1 [facility] XERS&/OR INC INC RX CONT ECG TRCG ONLY 3D 53436 BRANDON TAYLOR RENDERING 1 [facility] W/INTERP INC INC & [place] 3D [address]179 [facility] [place] [facility] RENDERING 1 MEDICAL [facility] IMAGING W/INTERP& ASS POSTPROC DIFF WORK STATION CT SOFT 46037 [facility] TISSUE 1 MEDICAL MEDICAL NECK IMAGING IMAGING W/[place] [address] [facility] HEAD/BRAI 1 MEDICAL AYLA N IMAGING W/[place] [address] BRANDON TAYLOR HEAD/BRAI 1 [facility] N W/O & INC INC W/CONTRAS T MATERIAL COLLECTIO 81130 BRANDON TAYLOR N VENOUS 1 [facility] [place] [address] BRANDON TAYLOR UREA 1 [facility] NITROGEN INC INC QUANTITAT ANNABELLA CREATININ 36910 BRANDON TAYLOR E BLOOD 1 [place] [address] BR[facility] TAYLOR INFUSION 1 [facility] THERAPY INC INC PROPHYLAX IS/DX EA HOUR ANES 07142 [facility] LOWER 1 ANESTH INTESTINE OF THE BLUE ENDOSCOPY DISTAL DUODENUM COLONOSCO 55289 C SOPHIE LYONS PY FLX DX 1 ELOY GAMBOA W/FLORENCIO [place] [address] BRANDON TAYLOR INFUSION 1 [facility] THERAPY/P INC INC ROPHYLAXI S /DX 1ST TO 1 HR GLUC BLD 65962 BRANDON TAYLOR GLUC MNTR 1 [facility] [...] SUPPLIES SUPPLIES HIGH CALIBRATO R SOLUTION/ [facility] A4258 M E D M E D WERED 1 SUPPLIES SUPPLIES DEVICE FOR LANCET EACH REPL DEYSI A4233 M E D M E D ALKALINE 1 SUPPLIES SUPPLIES NOT J CELL OSCAR BG MON OWND PT RADIOLOGI 81901 [facility] C EXAM 1 MEDICAL AYLA CHEST 2 IMAGING VIEWS ASS FRONTAL&L ATERAL OPHTH 51652 [facility] MEDICAL 1 VISION XM&EVAL COMPRHNSV ESTAB PT 1/> BLOOD 43841 BRANDON BRANDON COUNT 1 MEM [facility] COMPLETE INC INC AUTO&AUTO DIFRNTL WBC COLLECTIO 66120 [facility] N VENOUS 1 [facility] BLOOD INC INC VENIPUNCT URE BASIC 29734 [facility] METABOLIC 1 [facility] PANEL INC INC CALCIUM TOTAL RADIOLOGI 63831 [place] [facility] C EXAM 1 MEDICAL AYLA CHEST [...] SPRING-PO A4258 [facility] CCS WERED 0 MEDICAL 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 BLD GLU E2100 SECURE [...] MEDICAL MEDICAL CALIBRATO R SOLUTION/ CHIPS RADIOLOGI 24747 [place] [facility], C 0 MEDICAL FREDO EXAMINATI IMAGING ON KNEE 3 ASSOCIATE VIEWS S BASIC 75302 [facility] METABOLIC 0 [facility] PANEL INC INC CALCIUM TOTAL CULTURE 64323 [facility] BACTERIAL 0 [facility] INC INC QUANTTATI VE COLONY COUNT URINE RADIOLOGI 98337 [facility] C 0 [facility] EXAMINATI INC INC ON CHEST SINGLE VIEW FRONTAL HEMOGLOBI 83333 [facility] RABAGOON N 0 [facility] GLYCOSYLA INC INC ML A1C BLOOD 94019 [facility] R[facility] COUNT 0 [facility] COMPLETE INC INC AUTO&AUTO DIFRNTL WBC URNLS DIP 43358 [facility] 0 [facility] STICK/TAB INC [place] [address] [facility] INFUSION 0 [facility] HYDRATION INC INC INITIAL 31 MIN-1 HOUR O2 CONC 1 E1390 [place] R[place]AS [place] 9 HOME HOME 85%/>02 MEDICAL MEDICAL CONC AT EQUIPMENT EQUIPMENT PRSC FLW RATE PRTBLE E0431 EVELYN RIVAS GASEOUS 9 HOME HOME O2 SYS MEDICAL MEDICAL RENT; EQUIPMENT EQUIPMENT FLWMTR HUMIDFR&M ASK IADNA 73316 PATHOLOGY PATHOLOGY PAPILLOMA 9 & & VIRUS [...] 3938 3938 RX; INITIAL 30-DAY SUPPLY PRESSURIZ 90139 [place] BESJEWEL, ED/NONPRE 9 [place] [facility] SSURIZED INTERNAL INHALATIO MED N TREATMENT RADIOLOGI 52288 José CACERES EXAM 9 MEDICAL FREDO CHEST 2 IMAGING VIEWS ASSOCIATE FRONTAL&L S ATERAL O2 CONC 1 E1390 [place]AS [place] 9 HOME HOME 85%/>02 MEDICAL MEDICAL CONC AT EQUIPMENT EQUIPMENT PRSC FLW RATE PRTBLE E0431 EVELYN RIVAS GASEOUS 9 HOME HOME O2 SYS MEDICAL MEDICAL RENT; EQUIPMENT EQUIPMENT FLWMTR HUMIDFR&M ASK PRESSURIZ 33083 [place] BESJEWEL, ED/NONPRE 9 [place] A SSURIZED INTERNAL INHALATIO MED N TREATMENT URNLS DIP 65462 [facility] 9 [facility] STICK/TAB INC INC LET REAGENT AUTO MICROSCOP Y IAADI 95537 [facility] INFLUENZA 9 [facility] B VIRUS INC INC IAADI 45560 [facility] INFFLUENZ 9 [facility] A A VIRUS INC INC CULTURE 92511 [facility] BACTERIAL 9 [facility] INC INC QUANTTATI VE COLONY COUNT URINE APPL 65128 [place] ESC[place], MODALITY 9 FAMILY LILIYA C 1/> AREAS CHIROPRAC TRACTION TIC MECHANICA L APPL 77523 [place] ESC[place]AR, MODALITY 9 FAMILY LILIYA C 1/> AREAS CHIROPRAC ELEC TIC STIMJ EA 15 MIN THERAPEUT 96504 [place] ESCOBAR, IC PX 1/> 9 FAMILY LILIYA C AREAS CHIROPRAC EACH 15 TIC MIN EXERCISES CHIROPRAC 80009 [place] ESC[place]AR, TIC 9 FAMILY LILIYA C MANIPULAT CHIROPRAC ANNABELLA TX TIC SPINAL 3-4 REGIONS THERAPEUT 52678 [place] ESC[place]AR, IC PX 1/> 9 FAMILY LILIYA C AREAS CHIROPRAC EACH 15 TIC MIN EXERCISES APPL 11134 [place] ESCOBAR, MODALITY 9 FAMILY LILIYA C 1/> AREAS CHIROPRAC ELEC TIC STIMJ EA 15 MIN APPL 96276 [place] ESC[place]AR, MODALITY 9 FAMILY LILIYA C 1/> AREAS CHIROPRAC TRACTION TIC MECHANICA L CHIROPRAC 44460 [place] ESC[place]AR, TIC 9 FAMILY LILIYA C MANIPULAT CHIROPRAC ANNABELLA TX TIC SPINAL 3-4 REGIONS CHIROPRAC 99113 [place] ESC[place]AR, TIC 9 FAMILY LILIYA C MANIPULAT CHIROPRAC ANNABELLA TX TIC SPINAL 3-4 REGIONS THERAPEUT 34112 [place] ESC[place]AR, IC PX 1/> 9 FAMILY LILIYA C AREAS CHIROPRAC EACH 15 TIC MIN EXERCISES APPL 91243 [place] ESCOBAR, MODALITY 9 FAMILY LILIYA C 1/> AREAS CHIROPRAC TRACTION TIC MECHANICA L APPL 84929 [place] ESC[place]AR, MODALITY 9 FAMILY LILIYA C 1/> AREAS CHIROPRAC ELEC TIC STIMJ EA 15 MIN APPL 83785 EVELYN ESCOBAR, MODALITY 9 FAMILY LILIYA C 1/> AREAS CHIROPRAC ELEC TIC STIMJ EA 15 MIN CHIROPRAC 37889 EVELYN ESCOBAR, TIC 9 FAMILY LILIYA C MANIPULAT CHIROPRAC ANNABELLA TX TIC SPINAL 3-4 REGIONS APPL 39676 EVELYN ESCOBAR, MODALITY 9 FAMILY LILIYA C 1/> AREAS CHIROPRAC TRACTION TIC MECHANICA L SELF-CARE 65911 EVELYN ESCOBAR, /HOME 9 FAMILY LILIYA C MGMT CHIROPRAC TRAINING TIC EACH 15 MINUTES THERAPEUT 54327 EVELYN ESCOBAR, IC PX 1/> 9 FAMILY LILIYA C AREAS CHIROPRAC EACH 15 TIC MIN EXERCISES INJ J0702 LEANA DUEÑAS BETAMETHA 9 CHELSY W CHELSY [place] SONE ACETATE & PHOSPHATE 3 MG INITIAL 98664 [facility] 9 Y OF CHERYL CARE/DAY [facility] 70 INTERNAL MINUTES MEDICINE RADIOLOGI 92282 BUNNY SAENZ, C EXAM 9 MEDICAL FORTINO G CHEST 2 SERV VIEWS FOUNDATIO FRONTAL&L ATERAL ECG 62075 BUNNY JOHNSON, ROUTINE 9 MEDICAL SIMBA C ECG SERV W/LEAST FOUNDATIO 12 LDS I&R ONLY PRTBLE E0431 EVELYN RIVAS GASEOUS 9 HOME HOME O2 SYS MEDICAL MEDICAL RENT; EQUIPMENT EQUIPMENT FLWMTR HUMIDFR&M ASK O2 CONC 1 E1390 [place] R[place]AS [place] 9 HOME HOME 85%/>02 MEDICAL MEDICAL CONC AT EQUIPMENT EQUIPMENT PRSC FLW RATE OBSERVATI 34770 [place] BESSON, ON CARE 9 [place] A DISCHARGE INTERNAL MED MANAGEMEN T INITIAL 20495 [place] BESSON, OBSERVATI 9 [place] A ON INTERNAL CARE/DAY MED 30 MINUTES COMPREHEN 56544 [facility] SIVE 9 [facility] METABOLIC INC INC PANEL BLOOD 85506 [facility] COUNT 9 [facility] COMPLETE INC INC AUTO&AUTO DIFRNTL WBC URNLS DIP 55050 [facility] 9 [facility] STICK/TAB INC INC LET REAGENT AUTO MICROSCOP Y CULTURE 63473 [facility] BACTERIAL 9 [facility] INC INC QUANTTATI VE COLONY COUNT URINE SBSQ 74315 [facility] 9 CARE/DAY 15 MINUTES ECG 11904 CARDIOLOG [place], ROUTINE 9 Y KHURRAM A ECG ASSOCIATE W/LEAST S OF 12 [facility] I&R ONLY SBSQ 10091 [facility] 9 CARE/DAY 15 MINUTES PRTBLE E0431 EVELYN RIVAS GASEOUS 9 HOME HOME O2 SYS MEDICAL MEDICAL RENT; EQUIPMENT EQUIPMENT FLWMTR HUMIDFR&M ASK O2 CONC 1 E1390 [place]N RIVAS [place] 9 HOME HOME 85%/>02 MEDICAL MEDICAL CONC AT EQUIPMENT EQUIPMENT PRSC FLW RATE SBSQ 66138 [facility] 9 CARE/DAY 15 MINUTES SBSQ 93294 [facility] 9 CARE/DAY 15 MINUTES SBSQ 58119 [facility] 9 CARE/DAY 15 MINUTES ECG 07784 CARDIOLOG [place] ROUTINE 9 Y , D L ECG ASSOCIATE W/LEAST S OF 12 [facility] I&R ONLY INITIAL 81909 [facility] 9 CARE/DAY 30 MINUTES GROUND A0425 [facility] MILEAGE 9 AMBULANCE AMBULANCE PER SERVICE SERVICE STATUTE MILE AMB A0422 [facility] OXYGEN&O2 9 AMBULANCE AMBULANCE SUPPLIES SERVICE SERVICE LIFE SUSTAININ G SITUATION RADIOLOGI 05815 José CACERES 9 MEDICAL FREDO EXAMINATI IMAGING ON CHEST ASSOCIATE SINGLE S VIEW FRONTAL AMBULANCE A0429 [facility] SERVICE 9 AMBULANCE AMBULANCE BLS SERVICE SERVICE EMERGENCY TRANSPORT KETONE 52206 [facility] BODIES 9 [facility] SERUM INC INC QUALITATI VE THERAPEUT 09520 [facility] IC 9 [facility] PROPHYLAC INC INC TIC/DX INJECTION SUBQ/IM BASIC 66775 [facility] METABOLIC 9 [facility] [place] [address] [facility] INFUSION 9 [facility] THERAPY/P INC INC ROPHYLAXI S /DX 1ST TO 1 HR GLUC BLD 17945 [facility] GLUC MNTR 9 [facility] DEV INC INC CLEARED FDA SPEC HOME USE BLOOD 50229 [facility] COUNT 9 [facility] MEM [...] AMBULANCE PER SERVICE SERVICE STATUTE MILE INITIAL 91818 CHUY DIAZ 9 [facility] ON INTERNAL CARE/DAY MED 30 MINUTES AMB A0427 JU[facility]E LADD SERVICE 9 AMBULANCE AMBULANCE ALS SERVICE SERVICE EMERGENCY TRANSPORT LEVEL 1 AMB A0422 [facility] JULEE OXYGEN&O2 9 AMBULANCE AMBULANCE SUPPLIES SERVICE SERVICE LIFE SUSTAININ [facility] G0378 [facility] OBSERVATI 9 [facility] [place] [address] [facility] INFUSION 9 [facility] THERAPY/P INC INC ROPHYLAXI S /DX 1ST TO 1 HR GLUC BLD 98460 [facility] GLUC MNTR 9 [facility] DEV INC [place] [address] [facility] TROPONIN 9 [facility] QUANTITAT INC INC ANNABELLA COMPREHEN 27560 [facility] SIVE 9 [facility] METABOLIC INC INC PANEL CREATINE 06246 BRANDON TAYLOR KINASE MB 9 [facility] FRACTION INC INC ONLY CREATINE 88214 [facility] KINASE 9 [facility] TOTAL INC INC ECG 66467 [facility] ROUTINE 9 [facility] ECG INC INC W/LEAST 12 LDS TRCG ONLY W/O I&R BASIC 75459 [facility] METABOLIC 9 [facility] PANEL INC INC CALCIUM TOTAL RADIOLOGI 19997 [facility] C 9 [facility] EXAMINATI INC INC ON CHEST SINGLE VIEW FRONTAL BLOOD 40925 BR[facility] T[facility] COUNT 9 [facility] COMPLETE INC INC AUTO&AUTO DIFRNTL WBC ECG 55089 BRANDON JUVENTINOLETITIAMIChristiano ROUTINE 9 [facility] W/LEAST PROF SERV 12 LDS I&R ONLY 3D 92144 [facility] T[facility] RENDERING 9 [facility] INC INC W/INTERP& POSTPROC DIFF WORK STATION RADEX 66735 [facility] ESOPHAGUS 9 [facility] INC INC CT SOFT 78274 [facility] T[facility] TISSUE 9 [facility] NECK INC INC W/CONTRAS T MATERIAL LOCM Q9967 BR[facility] T[facility]LOR [phone] 9 [facility] MG/ML INC INC IODINE CONCENTRA TION PER ML CREATININ 93030 BRANDONKATI TAYLOR E BLOOD 9 [facility] INC INC COLLECTIO 30608 BR[facility] T[facility] N VENOUS 9 [facility] BLOOD INC INC VENIPUNCT URE CALCIUM 44769 BRANDON BRANDON TOTAL 9 [facility] [place] [address] BRAND[facility] T[facility] THYROID 9 [facility] STIMULATI [place] [address] [facility] T[facility]OR UREA 9 [facility] NITROGEN INC INC QUANTITAT ANNABELLA NORMAL A4256 DIABETES DIABETES LOW AND 9 [facility]ARE CLUB CARE [facility] CALIBRATO R SOLUTION/ [place] [address] BRANDON TAYLOR THYROXINE 9 [facility] TOTAL INC INC PRTBLE E0431 CYNMIGUEL [place] GASEOUS 9 HOME HOME O2 SYS MEDICAL MEDICAL RENT; EQUIPMENT EQUIPMENT FLWMTR HUMIDFR&M ASK O2 CONC 1 E1390 CYNPAULIENADINE VEELYN DEL PORT 9 HOME HOME 85%/>02 MEDICAL MEDICAL CONC AT EQUIPMENT EQUIPMENT PRSC FLW RATE COLLECTIO 00102 BRANDON BRANDON N VENOUS 9 [facility] BLOOD INC INC VENIPUNCT URE COMPREHEN 23293 [facility] SIVE 9 [facility] METABOLIC INC INC PANEL LIPID 77888 [facility] PANEL 9 [facility] INC INC RADEX 38334 [facility] ANKLE 9 [facility] COMPLETE INC INC MINIMUM 3 VIEWS RADIOLOGI 72160 [facility] C 9 [facility] EXAMINATI INC INC ON KNEE 3 VIEWS O2 CONC 1 E1390 [place]N RIVAS [place] 9 HOME HOME 85%/>02 MEDICAL MEDICAL CONC AT EQUIPMENT EQUIPMENT PRSC FLW RATE PRTBLE E0431 EVELYN RIVAS GASEOUS 9 HOME HOME O2 SYS MEDICAL MEDICAL RENT; EQUIPMENT EQUIPMENT FLWMTR HUMIDFR&M ASK COLONOSCO 20127 BUNNY LORD PY 9 MEDICAL [place] W/BIOPSY SERV SINGLE/MU FOUNDATIO LTIPLE ANES 37975 [facility] 9 [facility] [place] [address] PATHOLOGY PATHOLOGY SURG 9 & & PATHOLOGY CYTOLOGY CYTOLOGY LAB LAB GROSS&[place] [address] BR[facility] T[facility] INFUSION 9 [facility] THERAPY/P INC INC ROPHYLAXI S /DX 1ST TO 1 HR GLUC BLD 25749 [facility] GLUC MNTR 9 [facility] DEV INC [place] [address] [facility] INFUSION 9 [facility] THERAPY INC INC PROPHYLAX IS/DX EA HOUR ECG 49445 BRANDON CHOWDHURY ROUTINE 9 [facility] W/LEAST PROF SERV 12 LDS I&[place] [address] BR[facility] T[facility] TROPONIN 9 [facility] QUANTITAT INC INC ANNABELLA BLOOD 06370 [facility] COUNT 9 [facility] COMPLETE INC INC AUTO&AUTO DIFRNTL WBC URNLS DIP 77111 [facility] 9 [facility] STICK/TAB INC INC LET REAGENT AUTO MICROSCOP Y THERAPEUT 25424 [facility] IC 9 [facility] INJECTION INC INC IV PUSH EACH NEW DRUG CREATINE 29754 [facility] KINASE 9 [facility] [place] [address] [facility] LIPASE 9 [facility] INC INC THER 71595 [facility] PROPH/DX 9 [facility] NJX IV INC INC PUSH SINGLE/1S T SBST/DRUG ECG 17490 [facility] ROUTINE 9 [facility] ECG INC INC W/LEAST 12 LDS TRCG ONLY W/O I&R COMPREHEN 93984 [facility] SIVE 9 [facility] [address] BR[facility] AMYLASE 9 [facility] INC INC CREATINE 01717 BR[facility] T[facility] KINASE MB 9 [facility] [...] AMBULANCE PER SERVICE SERVICE STATUTE MILE KETONE 81080 [facility] BODIES 9 [facility] SERUM INC INC QUALITATI VE COMPREHEN 04358 [facility] SIVE 9 [facility] METABOLIC INC INC PANEL CULTURE 12788 [facility] BACTERIAL 9 [facility] INC INC QUANTTATI VE COLONY COUNT URINE CULTURE 73532 [facility] BCT 9 [facility] ISOL&PRSM [place] [address] [facility] INFUSION 9 [facility] THERAPY/P INC INC ROPHYLAXI S /DX 1ST TO 1 HR BLOOD 96338 [facility] COUNT 9 [facility] COMPLETE INC INC AUTO&AUTO DIFRNTL WBC SUSCEPTIB 05620 [facility] T[facility] LTY STDY 9 [facility] ANTIMICRB INC INC IAL MICRO/AGA R DILUTJ URNLS DIP 81459 BRANDON BRANDON 9 [facility] STICK/TAB INC INC LET REAGENT AUTO MICROSCOP Y THERAPEUT 44708 [facility] IC 9 [facility] INJECTION INC INC IV PUSH EACH NEW DRUG PRTBLE E0431 EVELYN RIVAS GASEOUS 9 HOME HOME O2 SYS MEDICAL MEDICAL RENT; EQUIPMENT EQUIPMENT FLWMTR HUMIDFR&M ASK O2 CONC 1 E1390 [place]N R[place]AS [place] 9 HOME HOME 85%/>02 MEDICAL MEDICAL CONC AT EQUIPMENT EQUIPMENT PRSC FLW RATE THERAPEUT 38408 [facility] IC 9 [facility] PROPHYLAC INC INC TIC/DX INJECTION SUBQ/IM GLUC BLD 61569 BRANDON TAY[facility]OR GLUC MNTR 9 [facility] DEV INC INC CLEARED FDA SPEC HOME USE LANCETS A4259 DIABETES DIABETES PER BOX 9 [facility] BLD GLU A4253 DIABETES DIABETES TEST/REAG 9 [facility] CARE [facility] T [facility] HOME BLD GLU MON PRTBLE [...] 9 [facility] PRTBLE E0431 EVELYN RIVAS GASEOUS 9 HOME HOME O2 SYS MEDICAL MEDICAL RENT; EQUIPMENT EQUIPMENT FLWMTR HUMIDFR&M ASK BLD GLU A4253 DIABETES DIABETES TEST/REAG 9 [facility] T [facility] HOME BLD GLU MON-50 NORMAL A4256 DIABETES DIABETES LOW AND 9 CARE CLUB CARE CLUB HIGH [facility] CALIBRATO R SOLUTION/ CHIPS PRTBLE [...] [facility] GASTRIC 48724 [place] [facility], [facility] 8 MEDICAL FREDO IMAGING IMAGING STUDY [...] LLC HOME BLD GLU MON-50 GLUC BLD 07581 [facility] T[facility] GLUC MNTR 8 [facility] DEV INC INC CLEARED FDA SPEC HOME USE BLOOD 80621 BR[facility] T[facility]OR COUNT 8 [facility] COMPLETE INC INC AUTO&[place] NFUS 02986 [facility] T[facility] THER 8 [facility] PROPH/DX INC INC EA HR URNLS DIP 42803 [facility] 8 [facility] STICK/TAB INC INC LET REAGENT [place] NFS 70171 [facility] T[facility] THER 8 [facility] PROPH/DX INC INC 1ST >1 HR BASIC 60143 BR[facility] TAYLOR METABOLIC 8 [facility] PANEL INC INC CALCIUM TOTAL PRTBLE E0431 EVELYN RIVAS GASEOUS 8 HOME HOME O2 SYS MEDICAL MEDICAL RENT; EQUIPMENT EQUIPMENT FLWMTR HUMIDFR&M ASK O2 CONC 1 E1390 EVELYN GUZMAN PORT 8 HOME HOME 85%/>02 MEDICAL MEDICAL CONC AT EQUIPMENT EQUIPMENT PRSC FLW RATE 3D 11916 LEONA MÉNDEZ, RENDERING 8 MEDICAL RACHEL P W/INTERP IMAGING & [place] [address] BR[facility] T[facility] HEAD/BRAI 8 [facility] N W/O INC INC CONTRAST MATERIAL CUL 67675 [facility] T[facility] PRSMPTV 8 [facility] PTHGNC INC INC ORGANISMS SCR DNS CHART SPECIAL 07352 PATHOLOGY PATHOLOGY STAIN 8 & & GROUP 1 CYTOLOGY CYTOLOGY MICROORGA LAB LAB [facility] [place] I&[place] [address] PATHOLOGY PATHOLOGY SURG 8 & & PATHOLOGY CYTOLOGY CYTOLOGY LAB LAB GROSS&[place]FS [address] BRANDON T[facility] THER 8 [facility] PROPH/DX INC INC 1ST >[address] [facility] UPPER GI 8 ANESTH ERLIN L ENDOSCOPY OF THE PROXIMAL [place] TO DUODENUM GLUC BLD 34581 BRANDON TAYLOR GLUC MNTR 8 [facility] DEV INC INC CLEARED FDA SPEC [place] EGD 18913 BR[facility] TAY[facility] TRANSORAL 8 [facility] BIOPSY INC INC SINGLE/MU LTIPLE ESOPHAGOG 4516 BRANDON TAYLOR ASTRODUOD 8 [facility] ENOSCOPY INC INC WITH CLOSED BIOPSY LANCETS A4259 DIABETES DIABETES PER BOX 8 CARE CLUB CARE [facility] OF 100 [facility] BLD GLU A4253 DIABETES DIABETES TEST/REAG 8 CARE CLUB CARE CLUB T STRIPS [facility] HOME BLD GLU MON-50 NORMAL A4256 DIABETES DIABETES LOW AND 8 CARE CLUB CARE CLUB HIGH [facility] CALIBRATO R SOLUTION/ CHIPS PRTBLE E0431 CYNMIGUEL RIVAS GASEOUS 8 HOME HOME O2 SYS MEDICAL MEDICAL RENT; EQUIPMENT EQUIPMENT FLWMTR HUMIDFR&M ASK O2 CONC 1 E1390 EVELYN RIVAS [place] 8 HOME HOME 85%/>02 MEDICAL MEDICAL CONC AT EQUIPMENT EQUIPMENT [facility] [place] [address] BRANDON TAYL[facility] LIPASE 8 [facility] INC INC HEPATITIS 40127 BR[facility]ON TAY[facility] B SURF 8 [facility] ANTIBODY INC INC HBSAB HEPATITIS 28393 BR[facility] T[facility] A 8 [facility] ANTIBODY INC INC HAAB COMPREHEN 46173 [facility] T[facility] SIVE 8 [facility] METABOLIC INC INC PANEL HEPATITIS 73512 BRANDON TAYLOR B CORE 8 [facility] ANTIBODY INC INC HBCAB TOTAL ACUTE 84266 BR[facility] TAY[facility] HEPATITIS 8 [facility] [place] [address] BR[facility]ON TAYLOR AMYLASE 8 [facility] INC INC COMPREHEN 30470 BR[facility] T[facility]OR SIVE 8 [facility] METABOLIC INC INC PANEL CULTURE 25063 BR[facility] T[facility] BACTERIAL 8 [facility] INC INC QUANTTATI VE COLONY COUNT URINE CULTURE 59041 [facility] T[facility] BCT 8 [facility] ISOL&PRSM INC INC PTV ID ISOLATE EA URINE RADEX ABD 71423 RITU CACERES 8 MEDICAL FREDO AQT ABD IMAGING W/S/E/D ASSOCIATE VIEWS 1 S VIEW CH SUSCEPTIB 44520 BR[facility]ON TAY[facility]OR LTY STDY 8 [facility] ANTIMICRB INC INC IAL MICRO/AGA R DILUTJ BLOOD 11324 BRANDON TAYLOR COUNT 8 [facility] COMPLETE INC INC AUTO&AUTO DIFRNTL WBC URNLS DIP 88058 [facility] 8 [facility] [...] AND 8 CARE CLUB CARE CLUB HIGH [facility] CALIBRATO R SOLUTION/ CHIPS LANCETS A4259 DIABETES DIABETES PER BOX 8 [facility] BLD GLU A4253 DIABETES DIABETES TEST/REAG 8 CARE CLUB CARE CLUB T STRIPS [facility] HOME BLD GLU MON-50 HOME E0607 DIABETES DIABETES BLOOD 8 CARE CLUB CARE CLUB GLUCOSE [facility] MONITOR SPRING-PO A4258 DIABETES DIABETES WERED 8 CARE CLUB CARE CLUB DEVICE [facility] FOR LANCET EACH O2 CONC 1 E1390 EVELYN RIVAS DEL [place] 8 HOME HOME 85%/>02 MEDICAL MEDICAL CONC AT EQUIPMENT EQUIPMENT PRSC FLW RATE PRTBLE E0431 EVELYN RIVAS GASEOUS 8 HOME HOME O2 SYS MEDICAL MEDICAL RENT; EQUIPMENT EQUIPMENT FLWMTR HUMIDFR&M ASK LIPID 99875 [facility] PANEL 8 MU-ISM MU-ISM HOSP HOSP INJECTION 16361 [facility] CARDIAC 8 ORTH, CATHJ L CARDIOLOG MARIANA VENTR/L Y ATR CONSULTAN ANGIOGRAP T H I SI&R 98650 [facility] CENTRAL F/NJX PX 8 MU-ISM MU-ISM DURING HOSP HOSP C-CATHJ PULM&/OR SELECT COLLECTIO 53112 CENTRAL CENTRAL N VENOUS 8 MU-ISM MU-ISM [place]LOOD [place] [address] CEN[facility]AL CENTRAL C-CATHJ 8 MU-ISM MU-ISM F/SLCTV C HOSP HOSP ANGRPH I SI&R 78294 [facility] F/NJX PX 8 ORTH, DURING CARDIOLOG MARIANA C-CATHJ Y VENTR&/AT CONSULTAN R ANGRPH T GLUCOSE 08182 [facility]ENTRAL BLOOD 8 MU-ISM MU-ISM [place] 48260 [facility]EN[facility] CATHETERI 8 MU-ISM MU-ISM ZATION HOSP HOSP RETROGRAD E BRACHIAL PERQ ANGIOCARD 8853 [facility] IOGRAPHY 8 MU-ISM MU-ISM OF LEFT HOSP HOSP HEART STRUCTURE S LEFT 3722 [facility]EN[facility]TR[facility] HEART 8 MU-ISM MU-ISM CARDIAC HOSP HOSP CATHETERI ZATION CORONARY 8856 [facility]EN[facility] CENTRAL ARTERIOGR 8 MU-ISM MU-ISM APHY HOSP HOSP USING TWO CATHETERS COLLECTIO 02448 [facility] N VENOUS 8 MU-ISM MU-ISM BLOOD HOSP HOSP VENIPUNCT URE BASIC 97838 [facility] METABOLIC 8 MU-ISM MU-ISM PANEL HOSP HOSP CALCIUM TOTAL ECG 56963 [facility] ROUTINE 8 MU-ISM MU-ISM ECG HOSP HOSP W/LEAST 12 LDS TRCG ONLY W/O I&R RADIOLOGI 10054 CEN[facility] ZAMUDIO, C EXAM 8 RADIOLOGY ROB CHEST 2 ASSOC C VIEWS FRONTAL&L ATERAL BLOOD 89723 [facility] COUNT 8 MU-ISM MU-ISM COMPLETE HOSP HOSP AUTOMATED ECG 61193 [facility] ROUTINE 8 ORTH, ECG CARDIOLOG [...] RENT; EQUIPMENT EQUIPMENT FLWMTR HUMIDFR&M ASK CYTP 08650 [facility], CERV/VAG 8 [place] INC MAR P AUTO THIN LAYER PREP MNL SCREEN BASIC 01739 [facility] METABOLIC 8 [facility] PANEL INC INC CALCIUM TOTAL AMB A0427 [facility] SERVICE 8 AMBULANCE AMBULANCE ALS SERVICE SERVICE EMERGENCY TRANSPORT LEVEL 1 [place] [address] [facility] TROPONIN 8 [facility] QUANTITAT INC INC ANNABELLA GROUND A0425 [facility] MILEAGE 8 AMBULANCE AMBULANCE PER SERVICE SERVICE STATUTE MILE ECG 67403 [facility] FAJARDO ROUTINE 8 [facility] W/LEAST PROF SERV 12 LDS I&R ONLY RHYTHM 51372 [facility] ECG 1-3 8 [facility]OS[facility] LEADS INC INC TRACING ONLY W/O I&R BLOOD 88091 [facility] COUNT 8 [facility] COMPLETE INC INC AUTO&AUTO DIFRNTL WBC RADIOLOGI 75076 José CACERES 8 MEDICAL FREDO EXAMINATI IMAGING ON CHEST ASSOCIATE SINGLE S VIEW FRONTAL CREATINE 00016 [facility] KINASE 8 [facility] TOTAL INC INC ECG 24427 [facility] ROUTINE 8 [facility] ECG INC INC W/LEAST 12 LDS TRCG ONLY W/O I&R AMB A0422 JULEE LADD OXYGEN&O2 8 AMBULANCE AMBULANCE SUPPLIES SERVICE SERVICE LIFE SUSTAININ G SITUATION CREATINE 82649 [facility] KINASE MB 8 [facility] FRACTION INC INC ONLY PRTBLE E0431 CYNMIGUEL SCOTTPAULIENADINE GASEOUS 8 HOME HOME O2 SYS MEDICAL MEDICAL RENT; EQUIPMENT EQUIPMENT FLWMTR HUMIDFR&M ASK O2 CONC 1 E1390 CYNMIGUEL JONANA DEL PORT 8 HOME HOME 85%/>02 MEDICAL MEDICAL CONC AT EQUIPMENT EQUIPMENT PRSC FLW RATE DOPPLER 81409 [facility] ECHOCARD 8 [facility] PULSE INC INC WAVE W/SPECTRA L DISPLAY DOP 88584 [facility] ECHOCARD 8 [facility] COLOR INC INC FLOW VELOCITY MAPPING ECHO 46571 [facility] SCOTTY TRANSTHOR 8 [facility], AC R-T 2D [facility] W/WO PROF SERV M-MODE REC COMP RADIOLOGI 41740 José DUKES EXAM 8 MEDICAL RACHEL P CHEST 2 IMAGING VIEWS ASSOCIATE FRONTAL&L S ATERAL INITIAL 74749 [place] [facility] OBSERVATI [address] [facility] CARE/DAY MED 30 MINUTES FLUOR 27982 [facility], NEEDLE/CA 8 ERVIN Nunn TH SPINE/PAR ASPINAL DX/THER [place] NJX [address]12 [facility] ANES&/STR 8 ERVIN RICARDO NRV CRV/THRC 1 LVL NJX 16314 [facility] ANES&/STR 8 ERVIN Pichardo JLuis Carlos NRV CRV/THRC EA LVL COMPREHEN 39816 [facility] SIVE 8 [facility] [place] [address] [facility] THYROID 8 [facility] STIMULATI INC INC NG HORMONE TSH PROTHROMB 18242 [facility] IN TIME 8 [facility] INC INC 25 05238 [facility] HYDROXY 8 [facility] INCLUDES INC INC FRACTIONS IF PERFORMED ECG 45353 [facility] ROUTINE 8 [facility] ECG INC INC W/LEAST 12 LDS TRCG ONLY W/O I&R ECG 97231 [facility] HEATHERMIChristiano ROUTINE 8 [facility] W/LEAST PROF SERV 12 LDS I&R ONLY THYROID 99128 [facility] HORM 8 [facility] UPTK/THYR INC INC OID HORMONE BINDING RATIO BLOOD 35363 [facility] COUNT 8 [facility] COMPLETE INC INC AUTO&AUTO DIFRNTL WBC THROMBOPL 26428 [facility] ASTIN 8 [facility] TIME INC INC PARTIAL PLASMA/[place] [address] [facility] T[facility] THYROXINE 8 [facility] TOTAL INC INC O2 CONC 1 E1390 EVELYN RIVAS DEL PORT 8 HOME HOME 85%/>02 MEDICAL MEDICAL CONC AT EQUIPMENT EQUIPMENT PRSC FLW RATE PRTBLE E0431 EVELYN RIVAS GASEOUS 8 HOME HOME O2 SYS MEDICAL MEDICAL RENT; EQUIPMENT EQUIPMENT FLWMTR HUMIDFR&M ASK THERAPEUT 52921 KAVYA HOFF, ACTVITY 8 ERVIN Huffman DIRECT PT CONTACT EACH 15 MIN APPLICATI 34787 KAVYA HOFF, ON 8 ERVIN Huffman MODALITY 1/> AREAS HOT/COLD PACKS CHIROPRAC 31855 KAVYA HOFF, TIC 8 ERVIN Huffman MANIPULAT ANNABELLA [place] SPINAL 3-4 REGIONS APPL 05361 KAVYA HOFF, MODALITY 8 ERVIN Huffman 1/> AREAS 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 L APPLICATI 60832 KAVYA HOFF, ON 8 ERVIN Huffman MODALITY 1/> AREAS HOT/COLD PACKS CHIROPRAC 72153 KAVYA HOFF, TIC 8 ERVIN Huffman MANIPULAT ANNABELLA TX SPINAL 3-4 REGIONS THERAPEUT 19846 KAVYA HOFF, ACTVITY 8 ERVIN Huffman DIRECT PT CONTACT EACH 15 MIN APPL 73080 KAVYA HOFF, MODALITY 8 ERVIN Huffman 1/> AREAS 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 L THERAPEUT 37875 KAVYA HOFF, ACTVITY 8 ERVIN Huffman DIRECT PT CONTACT EACH 15 MIN CHIROPRAC 80668 KAVYA HOFF, TIC 8 ERVIN Huffman MANIPULAT ANNABELLA [place] SPINAL 3-4 REGIONS APPLICATI 17165 KAVYA HOFF, ON 8 ERVIN Huffman MODALITY 1/> AREAS HOT/COLD PACKS APPL 08500 KAVYA HOFF, MODALITY 8 ERVIN Huffman 1/> AREAS 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 L TECHNETIU A9500 BRANDON Wayne TC-99M 8 [facility] SESTAMIBI INC INC DX PER STUDY DOSE CV STRS 84846 [facility] TST 8 [facility] XERS&/OR INC INC RX CONT ECG TRCG ONLY CV STRS 44227 [facility] SOL[facility] TST 8 HEART & NEZAR M XERS&/OR VASCULAR RX CONT ASSOC ECG W/O I&R MYOCRD 66417 NIMA GONZALEZUJ STD 8 HEART & NEZAR M WALL VASCULAR MOTION ASSOC QUAL/CASSANDRA STD OBSERVATI 47491 [place] RAENAN ON CARE 8 [facility] DISCHARGE INTERNAL MED MANAGEMEN T MYOCRD 77975 [facility] PRFUJ STD 8 [facility] EJEC FXJ INC INC GLUC BLD 84027 BR[facility] T[facility] GLUC MNTR 8 [facility] DEV INC INC CLEARED FDA SPEC HOME USE MYOCRD 10567 LEONA SOLIS, PRFUJ IMG 8 HEART & NEZAR M TOMOG VASCULAR SPECT RESOURCE EFFICIENCY MANAGER ASSOC [facility] G0378 BRANDON TAYL[facility] OBSERVATI 8 [facility] ON INC INC SERVICE PER HOUR CV STRS 25582 LEONA SOLIS, TST 8 HEART & NEZAR M XERS&/OR VASCULAR RX CONT ASSOC ECG I&R ONLY CREATINE 98683 BR[facility] TAYL[facility] KINASE MB 8 [facility] FRACTION INC INC ONLY GLUC BLD 49959 BR[facility] T[facility] GLUC MNTR 8 [facility] DEV INC INC CLEARED FDA SPEC HOME USE ECG 96274 BRANDON CARY, ROUTINE 8 [facility] W/LEAST PROF SERV 12 LDS I&R ONLY RHYTHM 24151 BRANDON TAYLOR ECG 1-3 8 [facility] LEADS INC INC TRACING ONLY W/O I&[place] [address] BRANDON T[facility] TROPONIN 8 [facility] QUANTITAT INC INC ANNABELLA GROUND A0425 [facility] AMBULANCE AMBULANCE PER SERVICE SERVICE STATUTE MILE INITIAL 87549 [place] SCOTTY OBSERVATI [address] [facility], ON INTERNAL KANNAN F CARE/DAY MED 30 MINUTES BLOOD 50695 [facility] COUNT 8 [facility] COMPLETE INC INC AUTO&AUTO DIFRNTL WBC BASIC 11226 BR[facility] T[facility] METABOLIC 8 [facility] PANEL INC INC CALCIUM TOTAL RADIOLOGI 07224 [facility] C 8 [facility] EXAMINATI INC INC ON CHEST SINGLE VIEW FRONTAL AMB A0427 [facility] SERVICE 8 AMBULANCE AMBULANCE ALS SERVICE SERVICE EMERGENCY TRANSPORT LEVEL 1 IV NFS 32061 BR[facility] T[facility] THER 8 [facility] PROPH/DX INC INC 1ST >1 HR LIPID 54176 BR[facility] PANEL 8 [facility] INC INC IV NFUS 05663 BR[facility]ON T[facility] THER 8 [facility] PROPH/DX INC INC EA HR ECG 78249 [facility] ROUTINE 8 [facility] ECG INC INC W/LEAST 12 LDS TRCG ONLY W/O I&R CREATINE 16210 BR[facility] KINASE 8 [facility] MEM [...] RENT; EQUIPMENT EQUIPMENT FLWMTR HUMIDFR&M ASK BLOOD 39738 BR[facility] T[facility] COUNT 8 [facility] COMPLETE INC INC AUTO&AUTO DIFRNTL WBC RHEUMATOI 81369 [facility] T[facility] D FACTOR 8 [facility] QUANTITAT INC INC ANNABELLA HEMOGLOBI 39031 [facility] N 8 [facility] GLYCOSYLA INC INC ML A1C NDL EMG 2 37035 SAMANTA ENGLAND, XTR W/WO 8 CHUCK [place] [address] [facility] THYROXINE 8 [facility] [place] [address] [facility] T[facility] THYROID 8 [facility] STIMULATI INC INC NG HORMONE TSH NRV CNDJ 96858 SAMANTA ENGLAND, AMPLT&LAT 8 CHUCK WOODS ENCY EA NRV MOTOR W/F-WAVE STD NRV CNDJ 26515 SAMANTA ENGLAND, AMPLITUDE 8 CHUCK WOODS & LATENCY EACH NERVE SENSORY COMPREHEN 11312 [facility] SIVE 8 [facility] [place] [address] [facility] T[facility] FOLIC 8 [facility] ACID INC INC SERUM CYANOCOBA 92195 BR[facility] PRATEEK 8 [facility] VITAMIN INC INC B-12 [place] [address] BR[facility]ON TAYLOR THIAMINE- 8 [facility] VITAMIN INC INC B-1 SYPHILIS 02829 BRANDON TAYLOR TEST 8 [facility] NON-TREPO INC INC NEMAL ANTIBODY QUAL PRTBLE E0431 EVELYN RIVAS GASEOUS 8 HOME HOME O2 SYS MEDICAL MEDICAL RENT; EQUIPMENT EQUIPMENT FLWMTR HUMIDFR&M ASK O2 CONC 1 E1390 EVELYN RIVAS DEL PORT 8 HOME HOME 85%/>02 MEDICAL MEDICAL CONC AT EQUIPMENT EQUIPMENT PRSC FLW RATE Encounters Encounter Start End Date Code Location Performer Type Date HOSPITAL [facility] - 7 7 [facility] BRANDON [facility] 7 7 [facility] EMERGENCY 76460 BRANDON 7 7 [facility] T VISIT HIGH/URGE NT SEVERITY HOSPITAL BRANDON - DHARMESH 7 7 [facility] BRANDON - OTHER 7 7 [facility] BRANDON - 7 7 [facility] - 7 7 [facility] T OFFICE 71695 [facility] CLARIBEL CORDOVA 7 7 PHYSICIAN T VISIT GROUP 15 MINUTES OFFICE 58507 BUNNY CORDOVA 7 7 MEDICAL ASTELLANO T [facility] 30 SERV S MINUTES [facility] - 7 7 [facility] OUT[facility] BRANDON - 7 7 [facility] T OFF[facility] 57035 [facility] 7 PHYSICIAN T VISIT S GROUP 15 MINUTES EMERGENCY 89386 [facility] 7 7 [facility] T VISIT PHYS HIGH/URGE NT SEVERITY EMERGENCY 45425 LEIGHTON KESSLER DEPT 7 7 PHYSICIAN VISIT S, PLLC HIGH SEVERITY& THREAT [facility] EMERGENCY 42785 BR[facility] 7 7 [facility] T VISIT LOW/MODER SEVERITY HOSPITAL [facility] - 7 7 [facility] BR[facility] - 7 7 [facility] BRANDON - 7 7 [facility]PATIEN [facility] EMERGENCY 93744 BRANDON 7 7 [facility] T VISIT HIGH/URGE NT SEVERITY EMERGENCY 14718 LEIGHTON PEDROZA DEPT 7 7 PH[facility]IC[facility]ISIT S, [facility] HIGH SEVERITY& THREAT [facility] H[facility]PITAL BRANDON - OTHER 7 7 [facility] EMERGENCY 23803 BRANDON 7 7 [facility] T VISIT MODERATE SEVERITY EMERGENCY 60250 LEIGHTON LOPEZ 7 7 PHYSICIAN DEPARTMEN S, [facility] T VISIT HIGH/URGE NT SEVERITY HOSPITAL BRANDON - 7 7 [facility] OFFICE 35748 [facility] [address] BRANDON - OTHER 7 7 [facility] EMERGENCY 06806 LEIGHTON SINGH DEPT 7 7 PHYSICIAN VISIT S, [facility] HIGH SEVERITY& THREAT [facility] H[facility]PITAL BRANDON - 7 7 [facility] OUTPATIEN [facility] EMERGENCY 23002 BRANDON 7 7 [facility] T VISIT LOW/MODER SEVERITY HOSPITAL BRANDON - 7 7 [facility] OUTPATIEN [facility] EMERGENCY 33500 LEIGHTON PEDROZA DEPT 7 7 PHYSICIAN VISIT S, [facility] HIGH SEVERITY& THREAT [facility] HOSPITAL BRANDON - 7 7 [facility] OUTPATIEN [facility] T EMERGENCY 99505 BRANDON 7 7 [facility] T VISIT LOW/MODER SEVERITY HOSPITAL BRANDON - OTHER 7 7 [facility] BRANDON - 7 7 [facility] BR[facility] - 7 7 [facility] - 6 6 [facility] BRANDON - 6 6 [facility] EMERGENCY 74505 LEIGHTON RENUSCH 6 6 PHYSICIAN FRANCES Ole[facility] PLLC T VISIT HIGH/URGE NT SEVERITY EMERGENCY 05209 BR[facility]ON 6 6 [facility] VISIT LOW/MODER SEVERITY OFFICE 53021 [facility] LORIE MCNALLY OUTSHABBIR 6 6 PHYSICIAN T VISIT S GROUP 25 MINUTES HOSPITAL BRANDON - 6 6 [facility] INPATIENT [facility] EMERGENCY 29395 LEIGHTON RENUSCH 6 6 PHYSICIAN BEBE ADAMSC T VISIT HIGH/URGE NT SEVERITY EMERGENCY 91160 BRANDON 6 6 [facility] T VISIT LOW/MODER SEVERITY HOSPITAL BRANDON - 6 6 [facility] - 6 6 [facility] OFFICE 18899 [facility] LORIE MCNALLY OUTPATIEN 6 6 PHYSICIAN T NEW 45 S GROUP MINUTES EMERGENCY 39455 LEIGHTON RENUSCH 6 6 PHYSICIAN ILIR Ole[employer] PLLC T VISIT HIGH/URGE NT SEVERITY EMERGENCY 64049 BRANDON 6 6 [facility] T VISIT LOW/MODER SEVERITY EMERGENCY 34788 LEIGHTON HAYDEN SHAKILA 6 6 PHYSICIAN FRANCES [employer] PLL[facility] T VISIT HIGH/URGE NT SEVERITY HOSPITAL BRANDON - 6 6 [facility] OUTPATIEN [facility] HOSPITAL BRANDON - 6 6 [facility] OUTPATIEN [facility] OFFICE 43095 [facility] 6 6 FOOT & T NEW 30 ANKLE CE MINUTES HOSPITAL BRANDON [facility] 6 6 [facility] OUTPATIEN [facility] HOSPITAL BRANDON - 6 6 [facility] OUTPATIEN [facility] EMERGENCY 86419 LEIGHTON KESSLER 6 6 PHYSICIAN [facility] S, [facility] T VISIT HIGH/URGE NT SEVERITY EMERGENCY 11140 BR[facility]ON 6 6 [facility] T VISIT LOW/MODER SEVERITY HOSPITAL BRANDON - 6 6 [facility] OUTPATIEN [facility] HOSPITAL BRANDON - 6 6 [facility] OUTPATIEN [facility] EMERGENCY 18235 LEIGHTON MARTINEZ, 6 6 PHYSICIAN JR FUENTES [facility] S, [facility] T VISIT HIGH/URGE NT SEVERITY EMERGENCY 09844 BRANDON 6 6 [facility] T VISIT LOW/MODER SEVERITY OFFICE 79663 [facility] 6 PHYSICIAN T VISIT S GROUP 10 HOSPITAL BRANDON - 6 6 [facility] OUTPATIEN [facility] T EMERGENCY 06803 LEIGHTON MAC 6 6 PHYSICIAN Meng [facility]ARD [facility] S, [facility] T VISIT HIGH/URGE NT SEVERITY EMERGENCY 81539 BR[facility]ON 6 6 [facility] T VISIT LOW/MODER SEVERITY EMERGENCY 12951 LEIGHTON KESSLER 6 6 PHYSICIAN SHANTHI [facility] S, [facility] T VISIT HIGH/URGE NT SEVERITY EMERGENCY 22513 BR[facility]ON 6 6 [facility] T VISIT LIMITED/M INOR PROB HOSPITAL BRANDON - 6 6 [facility] OUTPATIEN [facility] T OFFICE 23359 [facility] OUTPATIEN 6 6 PHYSICIAN JERRY T VISIT S GROUP 10 MINUTES HOSPITAL BRANDON - 6 6 [facility] OUTPATIEN [facility] HOSPITAL BRANDON [facility] 6 6 [facility] OUTPATIEN [facility] T EMERGENCY 90780 BR[facility]ON 6 6 [facility] T VISIT LOW/MODER SEVERITY OFFICE 69202 EVELYN HALLMAN [facility] 6 6 [facility] 10 MINUTES HOSPITAL BRANDON - OTHER 6 6 [facility] BRANDON - OTHER 6 6 [facility] BRANDON - OTHER 5 5 [facility] EMERGENC[facility] 83131 LEIGHTON KESSLER DEPT 5 5 PHYSICIAN SHANTHI VISIT S, [facility] HIGH SEVERITY& THREAT [facility] BRANDON - 5 5 [facility] EMERGENCY 86592 BRANDON 5 5 [facility] T VISIT MODERATE SEVERITY EMERGENCY 93829 LEIGHTON KESSLER 5 5 PHYSICIAN SHANTHI DEPARTMEN S, [facility] T VISIT HIGH/URGE NT SEVERITY HOSPITAL BRANDON - 5 5 [facility] EMERGENCY 56228 LEIGHTON MAC 5 5 PHYSICIAN U ANITA DEPARTMEN S, [facility] T VISIT HIGH/URGE NT SEVERITY OFFICE 02700 [facility] 5 5 [facility] T VISIT INTERNAL 15 MED MINUTES EMERGENCY 80303 LEIGHTON KESSLER DEPT 5 5 PHYSICIAN SHANTHI VISIT S, [facility] HIGH SEVERITY& THREAT [facility] HOSPITAL BRANDON - 5 5 [facility] OUTPATIEN [facility] EMERGENCY 25254 BR[facility]ON 5 5 [facility] T VISIT HIGH/URGE NT SEVERITY HOSPITAL BRANDON - 5 5 [facility] - 5 5 [facility] - 5 5 [facility] 5 5 [facility] 16058 LEIGHTON KESSLER 5 5 PHYSICIAN [facility] T VISIT HIGH/URGE NT SEVERITY EMERGENCY 82562 BR[facility] 5 5 [facility] VISIT LOW/MODER SEVERITY OFFICE 94448 [place] [facility] 5 5 MEDICAL AYANANE T VISIT SERV ACH 25 FOUNDATIO MINUTES HOSPITAL BRANDON - 5 5 [facility] - 5 5 [facility] BRANDON - OTHER 5 5 [facility] EMERGENCY 88339 BRANDON MARTINEZ, 5 5 [facility] T VISIT P HIGH/URGE NT SEVERITY HOSPITAL BRANDON - 5 5 [facility] BR[facility]ON - 5 5 [facility] 64078 [place] [facility] 5 5 MEDICAL AYANANE T VISIT SERV ACH 25 FOUNDATIO MINUTES N EMERGENCY 04481 [facility] MENARD [facility] 5 5 [facility] T VISIT P HIGH/URGE NT SEVERITY OFFICE 07068 [facility] 4 4 PHYSICIAN LUCITA T VISIT S GROUP 25 MINUTES EMERGENCY 86329 [facility] 4 4 [facility] EMERGENCY T VISIT PHYS MODERATE SEVERITY HOSPITAL BRANDON - 4 4 [facility] OUTPATIEN [facility] EMERGENCY 79789 BR[facility]ON 4 4 [facility] T VISIT LOW/MODER SEVERITY OFFICE 56888 EAR, NOSE SHASHY OUTPATIEN 4 4 AND SOBEIDA T VISIT THROAT 25 SPECIAL MINUTES OFFICE 77082 MARNI MARNI OUTPATIEN 4 4 LUIS ALFREDO LUIS ALFREDO T VISIT 25 MINUTES OFFICE 10841 EAR, NOSE SHASHY OUTPATIEN 4 4 AND SOBEIDA T VISIT THROAT 25 SPECIAL MINUTES HOSPITAL BR[facility]ON - 4 4 [facility] - 4 4 [facility] T OFFICE 68435 [place] OUTPATIEN 4 4 MEDICAL AYANANE T VISIT SERV ACH 25 FOUNDATIO MINUTES EMERGENCY 01719 [facility] 4 4 [facility] T VISIT PHYS HIGH/URGE NT SEVERITY HOSPITAL UNIVERSIT - 4 4 Y [facility] T OFFICE 27437 [facility] OUTPATIEN 4 4 DERMATOLO DERMATOLO T NEW 30 GY GY MINUTES HOSPITAL BRANDON - 4 4 [facility] - 4 4 [facility] - 4 4 [facility] UNIVERSIT - OTHER 4 4 Y [facility]PITAL UNIVERSIT - 4 4 Y [facility] T EMERGENCY 63910 UNIVERSIT 4 4 Y [facility] T VISIT HIGH/URGE NT SEVERITY HOSPITAL [facility] - OTHER 4 4 [facility] EMERGENCY 93052 [facility] DEPT 4 4 KAMAR VISIT EMERGENCY HIGH PHYS SEVERITY& THREAT [facility] BRANDON - 4 4 [facility] OUTPATIEN [facility] BRANDON - 4 4 [facility] OUTPATIEN [facility] HOSPITAL BRANDON [facility] OTHER 4 4 [facility] INC OFFICE 02790 [place] [facility] OUTPATIEN 4 4 [facility] 30 SERV MINUTES FOUNDATI OFFICE 17955 BRANDON MIRANDA OUTPATIEN 4 4 [facility] 15 P MINUTES EMERGENCY 63787 MARLO KESSLER DEPT 4 4 EMERGENCY SHANTHI VISIT SERVICES HIGH SEVERITY& THREAT [facility] BRANDON - 4 4 [facility] OUTPATIEN [facility] OFFICE 74697 MU-ISM GARO OUTPATIEN 4 4 [facility] BRANDON - 4 4 [facility]PATIEN [facility] BRANDON - 4 4 [facility]PATI[facility] BRANDON - 4 4 [facility] OUTPATIEN [facility] EMERGENCY 18302 MARLO KESSLER DEPT 3 3 EMERGENCY SHANTHI VISIT SERVICES HIGH SEVERITY& THREAT [facility] BRANDON - 3 3 [facility] OUTPATIEN [facility] OFFICE 52206 BR[facility] MIRANDA OUTPATIEN 3 3 [facility] 10 P MINUTES [facility] BRANDON - 3 3 [facility] OUTPATIEN [facility] BRANDON - 3 3 [facility] OUTPATIEN [facility] OFFICE 14188 BRAND[facility] MIRANDA OUTPATIEN 3 3 [facility] 10 P MINUTES [facility] BRANDON - 3 3 [facility]PATIEN [facility] BRANDON - 3 3 [facility] OUTPATIEN [facility] EMERGENCY 75426 MARLO COTTO DEPT 3 3 EMERGENCY BRO VISIT SERVICES HIGH SEVERITY& THREAT FUN EMERGENCY 46745 BRANDON 3 3 [facility] DEPARTMEN INC T VISIT LOW/MODER SEVERITY OFFICE 49138 MARNI MARNI OUTPATIEN 3 3 LUIS ALFREDO LOBATO T VISIT 15 MINUTES HOSPITAL BR[facility]ON - 3 3 [facility] OUTPATIEN INC T HOSPITAL RBANDON - 3 3 [facility] OUTPATIEN INC T HOSPITAL BR[facility]ON - 3 3 [facility] OUTPATIEN INC T [facility]OSPITAL BR[facility]ON - 3 3 [facility] OUTPATIEN INC T OFFICE 26851 MARNI MARNI OUTPATIEN 3 3 LUIS ALFREDO LOBATO T VISIT 25 MINUTES HOSPITAL BR[facility]ON - 3 3 [facility] OUTPATIEN INC T OFFICE 40979 [place] MCKEMIE OUT[facility] 3 3 [facility] HUMPHREYS T VISIT INTERNAL 15 MED MINUTES [facility] 76455 [facility] [place] OUTPATIEN 3 3 [facility] ALFREDO LOBATO T VISIT 40 MINUTES [facility] 76725 [facility] 3 3 [facility]ACK[facility] HUMPHREYS T VISIT INTERNAL 15 MED MINUTES OFFICE 75032 [facility] OUTPAT[facility] 3 3 ZACK[facility] ZHAO T VISIT INTERNAL 15 MEDI MINUTES OFFICE 50340 [facility] OUT[facility] 3 3 [facility] HUMPHREYS T VISIT INTERNAL 15 MED MINUTES OFFICE 06184 [facility] 3 3 ZACK[facility] HUMPHREYS T VISIT INTERNAL 15 MED MINUTES OFFICE 54606 [facility] OUTPATI[facility] 3 3 [facility] CE[facility] T VISIT INTERNAL 15 MEDI MINUTES [facility] OFF[facility] 06917 [facility]PATI[facility] [address] [facility] PETR T VISIT INTERNAL 15 MED MINUTES [facility] OFF[facility] 88047 [facility] OUTPATI[facility] 3 3 [facility] T VISIT INTERNAL 15 MEDI MINUTES [facility] - [facility] T OFFICE 68929 [facility] PETTE[facility] OUTPATIEN 3 3 [facility] NEW 30 S GROUP MINUTES OFFICE 28911 [facility] OUTPATIEN 3 3 [facility] CE[facility] T VISIT INTERNAL 15 MEDI MINUTES [facility] - [facility] 3 [facility] T OFFICE 87480 [facility] OUTPATIEN 3 3 [facility] CE[facility] T VISIT INTERNAL 15 MEDI MINUTES OFFICE 98349 MARNI MARNI OUTPATIEN 3 3 [facility] ALFREDO LUIS ALFREDO T VISIT 25 MINUTES OFFICE 05349 MARNI MARNI OUTPATIEN 3 3 [facility] ALFREDO LUIS ALFREDO T VISIT 25 MINUTES OFFICE 13838 [facility] OUTPATI[facility] 3 3 [facility] CE[facility] T VISIT INTERNAL 15 MEDI MINUTES [facility] OFFICE 16836 [facility]IP JR OUTPATIEN 3 3 [facility] PETR T NEW 30 HOSPITAL MINUTES P OFFICE 47143 [facility] OUTPATIEN 3 3 [facility] CECE T VISIT INTERNAL 15 MEDI MINUTES OFFICE 68927 [facility] MCK[facility] OUTPATIEN 3 3 [facility] EDWARD PETR T VISIT INTERNAL 15 MED MINUTES [facility] - 3 3 [facility] INPATIENT INC OFFICE 33957 [facility] OUTPATIEN 3 3 [facility] CECE T VISIT INTERNAL 15 MEDI MINUTES [facility] - 3 3 [facility] OUTPATIEN INC T [facility] - 2 2 [facility] T EMERGENCY 39331 [place] 2 2 EMERGENCY JAM DEPARTMEN SERVICES T VISIT HIGH/URGE NT SEVERITY OFFICE 98667 [facility] MCLETITIAMIE OUTPATIEN 2 2 [facility] HUMPHREYS T VISIT INTERNAL 15 MED MINUTES [facility] - 2 2 [facility] OUTPATIEN INC T OFFICE 64981 [facility] 2 2 [facility] 15 MINUTES OFFICE 14920 [facility] 2 2 [facility] 15 MINUTES [facility] - 2 2 [facility] T EMERGENCY 68311 [facility] [place] [facility] DEPT 2 2 KAMAR DEIDRA VISIT EMERGENCY HIGH PHYS SEVERITY& THREAT FUNCJ OFFICE 28891 [facility] 2 2 [facility] 15 MINUTES OFFICE 05483 [facility] 2 2 [facility] 15 MINUTES OFFICE 95345 [facility] OUTPAT[facility] 2 2 [facility] 15 MINUTES OFFICE 41751 [facility] PALOMO OUTPATIEN 2 2 L SURGIAL CATRACHITO T NEW 45 MINUTES ASSOCIATE OFFICE 30967 [facility] BA[facility] OUTPATIEN 2 2 [facility] T NEW 45 E CENTER MINUTES EMERGENCY 28716 DOM DHALIWAL 2 2 KAMAR DAYANA DEPARTMEN EMERGENCY T VISIT SERVI HIGH/URGE NT SEVERITY OFFICE 25758 José SOPHIE LYONS OUTPATIEN 2 2 ELOY GAMBOA T VISIT MD PSC 25 MINUTES [facility] - 2 2 [facility] OUTPATIEN INC T OFFICE 37114 [facility] OUTPATIEN 2 2 [facility] CECE T VISIT INTERNAL 15 MEDI MINUTES [facility] - 2 2 [facility] INC T OFFICE [id number] [facility] M[facility] OUTPATIEN 2 2 ZACKERY HUMPHREYS T VISIT INTERNAL 15 MED MINUTES HOSPITAL [facility] 21639 UNIVERSIT DEPT 2 2 Y VISIT HOSPITAL HIGH SEVERITY& THREAT [facility] - 2 2 [facility] OUTPATIEN [facility] T EMERGENCY 31526 [facility] 2 2 [facility] DEPARTMEN INC T VISIT HIGH/URGE NT SEVERITY EMERGENCY 27317 MARLO FATIMA DEPT 2 2 EMERGENCY PETR VISIT SERVICES HIGH SEVERITY& THREAT [facility] OFFICE 37615 [facility] M[facility] OUTPATIEN 2 2 ZACKERY HUMPHREYS T VISIT INTERNAL 15 MED MINUTES EMERGENCY 51641 MRALO KESSLER DEPT 2 2 EMERGENCY SHANTHI VISIT SERVICES HIGH SEVERITY& THREAT FUN EMERGENCY 93898 BR[facility]ON 2 2 [facility] DEPARTMEN INC T VISIT HIGH/URGE NT SEVERITY HOSPITAL BRANDON - 2 2 [facility] OUTPATIEN INC T OFFICE 71309 [facility] BESSON OUTPATIEN 2 2 [facility] CATRACHITO T VISIT INTERNAL 15 MED MINUTES HOSPITAL BRANDON - 2 2 [facility] OUTPATIEN INC T EMERGENCY 00974 BRANDON 2 2 [facility] DEPARTMEN INC T VISIT MODERATE SEVERITY EMERGENCY 19683 MARLO KESSLER 2 2 EMERGENCY SHANTHI DEPARTMEN SERVICES T VISIT HIGH/URGE NT SEVERITY HOSPITAL [facility] - 2 2 [facility] T OFFICE 77726 [facility] OUTPATIEN 2 2 ZACKERY HUMPHREYS T VISIT INTERNAL 15 MED MINUTES OFFICE 33517 [facility] BESSON OUTPATIEN 2 2 ZACKERY WINSTON T VISIT INTERNAL 25 MED MINUTES HOSPITAL [facility]ON - 2 2 [facility] OUTPATIEN INC T OFFICE 13153 MARNI MARNI OUTPATIEN 2 2 LUIS ALFREDO LOBATO T VISIT 25 MINUTES HOSPITAL [facility]ON - 2 2 [facility] OUTPATIEN INC T EMERGENCY 59015 [facility] 2 2 [facility] DEPARTMEN INC T VISIT MODERATE SEVERITY HOSPITAL [facility] - 2 2 [facility]PAT[facility]EN INC T [facility]OSPITAL [facility] - 2 2 [facility] OUT[facility]IEN INC T OFFICE 67059 MARNI MARNI OUTPATIEN 2 2 LUIS ALFREDO LOBATO T NEW 45 MINUTES OFFICE 84490 [facility] MUSTAPHA OUTPATIEN 2 2 ZACKERY CECE T VISIT INTERNAL 15 MEDI MINUTES OFFICE 55776 [facility] MUSTAPHA OUTPATIEN 2 2 ZACKERY CECE T VISIT INTERNAL 15 MEDI MINUTES OFFICE 11588 [facility] MUST[facility]HA OUTPATIEN 2 2 HIGHLAND CECE T VISIT INTERNAL 10 MEDI MINUTES HOSPITAL [facility] - 2 2 [facility] OUTPATIEN INC T EMERGENCY 90298 MARLO AKERS DEPT 2 2 EMERGENCY VISIT SERVICES HIGH SEVERITY& THREAT FUNCJ EMERGENCY 36589 [facility] 2 2 [facility] DEPARTMEN INC T VISIT HIGH/URGE NT SEVERITY OFFICE 13349 [facility] OUTPATI[facility] 2 2 ZACKERY HUMPHREYS T VISIT INTERNAL 15 MED MINUTES OFFICE 50283 KENZIE ESPINO OUTPATIEN 2 2 LUCITA LANDRUM T NEW 60 MINUTES OFFICE 68401 [facility] OUTPATIEN 2 2 [facility] VISIT INTERNAL 15 MED MINUTES EMERGENCY 97369 BR[facility]ON 2 2 [facility] DEPARTMEN INC T VISIT HIGH/URGE NT SEVERITY HOSPITAL [facility] - 2 2 [facility] OUTPATIEN INC T OFFICE 80677 [place] GAL THO OUTPATIEN 1 1 MEDICAL T NEW 30 SERV MINUTES FOUNDATIO OFFICE 98913 EAR, NOSE SHASHY OUTPATIEN 1 1 AND SOBEIDA T VISIT THROAT 25 SPECIAL MINUTES HOSPITAL BRANDON - 1 1 [facility] OUTPATIEN [facility] T OFFICE 77160 EAR, NOSE SHASHY OUTPATIEN 1 1 AND SOBEIDA T NEW 30 THROAT MINUTES SPECIAL OFFICE 91770 [facility] B[facility]ON OUTPATIEN 1 1 [facility] T VISIT INTERNAL 15 MED MINUTES HOSPITAL BRANDON - 1 1 [facility]IEN [facility] BRANDON - 1 1 [facility] OUTPATIEN INC T EMERGENCY 94803 BRANDON 1 1 [facility] DEPARTMEN INC T VISIT HIGH/URGE NT SEVERITY HOSPITAL BR[facility]ON - 1 1 [facility] OUTPATIEN INC [facility]OSPITAL [facility]ON - 1 1 [facility] OUTPATIEN INC T OFFICE 95615 ELLEN SCIEVELYN OUTPATIEN 1 1 VISION ANG T VISIT 10 MINUTES HOSPITAL [facility] - 1 1 [facility] INC T EMERGENCY 52866 [facility] 1 1 [facility] T VISIT LIMITED/M INOR PROB EMERGENCY 83496 MARLO AKERS 1 1 EMERGENCY DEPARTMEN SERVICES T VISIT HIGH/URGE NT SEVERITY HOSPITAL [facility] - 1 1 [facility] - 1 1 [facility]PATI[facility] INC OFFICE 81339 AKUA VELASQUEZ OUTPATIEN 1 1 Aug NEW 30 MINUTES EMERGENCY 68972 MARLO KESSLER 1 1 EMERGENCY SHANTHI DEPARTMEN SERVICES T VISIT HIGH/URGE NT SEVERITY HOSPITAL [facility] - 1 1 [facility] INC EMERGENCY 79915 [facility] 1 1 [facility] T VISIT MODERATE SEVERITY [facility] - 1 1 [facility] - 1 1 [facility] - 1 1 [facility] - 1 1 [facility]PATI[facility] INC OFFICE 53136 [facility] AR[facility]ZU OUTPATIEN 1 1 DEIDRA GAY T [facility] 45 MINUTES OFFICE 49903 RAKANHELEN CARIN OUTPATIEN 1 1 JANET JANET [facility] 45 MINUTES HOSPITAL BR[facility]ON - 1 1 [facility] - 1 1 [facility]PATIEN [facility] BRANDON - 1 1 [facility] OUTPATIEN INC T EMERGENCY 74010 [facility]ON 1 1 [facility] DEPARTMEN [facility] T VISIT HIGH/URGE NT SEVERITY EMERGENCY 92454 MARLO AKERS 1 1 EMERGENCY DEPARTMEN SERVICES T VISIT HIGH/URGE NT SEVERITY HOSPITAL [facility] - 1 1 [facility] - 1 1 [facility] INC T EMERGENCY 17970 MARLO JACKSON OSWALD DEPT 1 1 EMERGENCY VISIT SERVICES HIGH SEVERITY& THREAT [facility] BRANDON - 1 1 [facility] - 1 1 [facility] - 1 1 [facility] - 1 1 [facility] - 1 1 [facility] - 1 1 [facility]PAT[facility] INC OFFICE 78914 [facility] 1 1 ELOY Reaves MD [facility]ON - 1 1 [facility] OUTPATIEN INC T EMERGENCY 66398 MARLO KESSLER, 0 0 [facility] VISIT MODERATE ASSOCIATE SEVERITY S EMERGENCY 84502 [facility] 0 0 [facility] DEPARTMEN INC T VISIT LOW/MODER SEVERITY [facility]OSP[facility] - 0 0 [facility] OUTPAT[facility]EN [facility] BRANDON - 0 0 [facility] OUTPATIEN INC T EMERGENCY 48302 MARLO CORTÉS, 0 0 EMERGENCY [facility] DEPARTMEN SERVICES O T VISIT HIGH/URGE ASSOCIATE NT S SEVERITY HOSPITAL [facility] - 0 0 [facility] OUTPATIEN INC T EMERGENCY 99715 [facility] 0 0 [facility] DEPARTMEN INC T VISIT MODERATE SEVERITY EMERGENCY 66702 MALRO KESSLER, 0 0 EMERGENCY [facility] DEPARTMEN SERVICES T VISIT MODERATE ASSOCIATE SEVERITY S HOSPITAL [facility] - 0 0 [facility] OUTPATIEN INC T EMERGENCY 45396 [facility] 0 0 [facility] DEPARTMEN INC T VISIT LOW/MODER SEVERITY [facility]OSPITAL [facility] - 9 9 [facility] OUTPAT[facility] INC T OFFICE 11681 [facility] PRISCILLA, OUTPATIEN 9 9 ZACKERY Blum T VISIT INTERNAL 15 MED MINUTES OFFICE 25125 [facility] PRISCILLA OUTPATIEN 9 9 ZACKERY SULLIVAN A T VISIT INTERNAL 25 MED MINUTES HOSPITAL [facility]ON - 9 9 [facility] OUTPATIEN INC T OFFICE 67112 [facility] SCOTTY OUTPATIEN 9 9 ZACKERY EDWARD, T VISIT INTERNAL KANNAN F 10 MED MINUTES OFFICE 67141 [facility] PRISCILLA OUTPATIEN 9 9 ZACKERY SULLIVAN A T VISIT INTERNAL 15 MED MINUTES EMERGENCY 39849 MARLO KESSLER, 9 9 EMERGENCY [facility] DEPARTMEN SERVICES T VISIT HIGH/URGE ASSOCIATE NT S SEVERITY EMERGENCY 86507 [facility] 9 9 [facility] DEPARTMEN INC T VISIT MODERATE SEVERITY HOSPITAL [facility] - 9 9 [facility] OUTPATIEN INC T OFFICE 43264 LEANA DUEÑAS OUTPATIEN 9 9 CHELSY Headley T VISIT 15 MINUTES EMERGENCY 51372 MARLO CORTÉS, DEPT 9 9 EMERGENCY [facility] VISIT SERVICES O HIGH SEVERITY& ASSOCIATE THREAT S FUNCJ EMERGENCY 58783 MARLO KESSLER, 9 9 [facility] T VISIT MODERATE ASSOCIATE SEVERITY S EMERGENCY 64300 MARLO KESSLER, 9 9 EMERGENCY [facility] DEPARTMEN SERVICES T VISIT HIGH/URGE ASSOCIATE NT S SEVERITY EMERGENCY 60576 [facility] 9 9 [facility] DEPARTMEN INC T VISIT MODERATE SEVERITY [facility]OSP[facility] - 9 9 [facility] OUTPATIEN INC T OFFICE 72461 LEANA DUEÑAS OUTPATIEN 9 9 CHELSY Headley T VISIT 15 MINUTES EMERGENCY 58663 [facility] 9 9 [facility] DEPARTMEN INC T VISIT HIGH/URGE NT SEVERITY EMERGENCY 93147 MARLO CORTÉS DEPT 9 9 EMERGENCY [facility] VISIT SERVICES O HIGH SEVERITY& ASSOCIATE THREAT S [facility] - 9 9 [facility] OUTPAT[facility]EN INC T EMERGENCY 29426 [facility] DEPT 9 9 [facility] VISIT INC HIGH SEVERITY& THREAT [facility]PITAL BRANDON - 9 9 [facility] OUTPAT[facility]EN INC T EMERGENCY 35024 MARLO CENTENO DEPT 9 9 EMERGENCY SAL Huffman VISIT SERVICES HIGH SEVERITY& ASSOCIATE THREAT S [facility] OFFICE 80733 MARY HERNANDEZ OUTPATIEN 9 9 OSWALDO Franz T VISIT 10 MINUTES HOSPITAL [facility] - 9 9 [facility]PATI[facility] INC T OFFICE 53093 MARY HERNANDEZ OUTPATIEN 9 9 OSWALDO Franz T VISIT 15 MINUTES HOSPITAL [facility] - 9 9 [facility] INC T OFFICE 92999 LEANA DUEÑAS OUTPATIEN 9 9 CHELSY Headley T VISIT 15 MINUTES OFFICE 08830 LEANA DUEÑAS OUTPATIEN 9 9 CHELSY Headley T VISIT 15 MINUTES EMERGENCY 97433 MARLO SHEA DEPT 9 9 EMERGENCY GISELLE Neely VISIT SERVICES HIGH SEVERITY& ASSOCIATE THREAT S [facility]ON - 9 9 [facility] INC T OFFICE 81074 LEANA DUEÑAS OUTPATIEN 9 9 CHELSY Headley T VISIT 15 MINUTES OFFICE 26042 LEANA DUEÑAS OUTPATIEN 9 9 CHELSY Headley T VISIT 15 MINUTES EMERGENCY 53078 [facility] 9 9 [facility] DEPARTMEN INC T VISIT LOW/MODER SEVERITY EMERGENCY 45006 MARLO CORTÉS, 9 9 [facility] T VISIT MODERATE ASSOCIATE SEVERITY S HOSP[facility] - 9 9 [facility] OUT[facility]IEN INC T OFFICE 09579 LEANA DUEÑAS OUTPATIEN 9 9 CHELSY Headley T VISIT 15 MINUTES HOSPITAL [facility] - 9 9 [facility] INC T OFFICE 12905 ART BARNARD 9 9 MEDICAL [place] T VISIT SERV 25 FOUNDATIO MINUTES EMERGENCY 46810 [facility] 9 9 [facility] DEPARTMEN INC T VISIT HIGH/URGE NT SEVERITY EMERGENCY 27615 MARLO KESSLER DEPT 9 9 EMERGENCY [facility] VISIT SERVICES HIGH SEVERITY& ASSOCIATE THREAT S [facility] - 9 9 [facility]EN INC T OFFICE 17819 LEANA DUEÑAS OUTPATIEN 9 9 CHELSY Headley T VISIT 15 MINUTES EMERGENCY 95083 MARLO VIDES DEPT 9 9 EMERGENCY [facility] VISIT SERVICES ER R HIGH SEVERITY& ASSOCIATE THREAT S [facility] - 9 9 [facility] OUTPATIEN INC T EMERGENCY 54566 [facility] 9 9 [facility] DEPARTMEN INC T VISIT MODERATE SEVERITY OFFICE 33587 LEANA DUEÑAS OUTPATIEN 9 9 CHELSY Headley T VISIT 15 MINUTES HOSPITAL [facility] - 9 9 [facility] OUT[facility]EN INC T EMERGENCY 04286 [facility] 9 9 [facility] DEPARTMEN INC T VISIT LOW/MODER SEVERITY OFFICE 12577 LEANA DUEÑAS OUTPATIEN 9 9 CHELSY Headley T VISIT 15 MINUTES OFFICE 63753 LEANA DUEÑAS OUTPATIEN 9 9 CHELSY Headley T VISIT 15 MINUTES OFFICE 80021 LEANA DUEÑAS OUTPATIEN 9 9 CHELSY VALENTINO W T VISIT 15 MINUTES OFFICE 73563 ART BARNARD 9 9 MEDICAL [place] T VISIT SERV 25 FOUNDATIO MINUTES OFFICE 43006 LEANA DUEÑAS OUTPATIEN 8 8 CHELSY VALENTINO W T VISIT 15 MINUTES OFFICE 42626 LEANA DUEÑAS OUTPATIEN 8 8 CHELSY VALENTINO W T VISIT 15 MINUTES EMERGENCY 71612 [facility] 8 8 [facility] DEPARTMEN INC T VISIT LIMITED/M INOR [facility] BRANDON - 8 8 [facility] OUTPATIEN INC T OFFICE 79934 ART BARNARD 8 8 MEDICAL [place] T VISIT SERV 25 FOUNDATIO MINUTES OFFICE 95616 LEANA DUEÑAS OUTPATIEN 8 8 CHELSY Headley T VISIT 15 MINUTES OFFICE 67822 LEANA DUEÑAS OUTPATIEN 8 8 CHELSY Headley T VISIT 15 MINUTES HOSPITAL [facility] - 8 8 [facility] OUT[facility]EN INC T EMERGENCY 83440 [facility] 8 8 [facility] DEPARTMEN INC T VISIT HIGH/URGE NT SEVERITY EMERGENCY 43436 JENNIFER ROSARIO, 8 8 [facility] T VISIT ON MODERATE SEVERITY OFFICE 22566 LEANA DUEÑAS OUTPATIEN 8 8 CHELSY Fang VALENTINO W T VISIT 15 MINUTES HOSPITAL [facility] - 8 8 [facility]PAT[facility]EN INC T [facility] - 8 8 [facility] INC T OFFICE 68897 SAMANTA ENGLAND OUTPATIEN 8 8 CHUCK WOODS T VISIT 25 MINUTES OFFICE 04851 BUNNY LORD, CONSULTAT 8 8 MT GRIFFITHS NEW/ESTAB FOUNDATIO PATIENT 60 MIN OFFICE 87842 LEANA DUEÑAS OUTPATIEN 8 8 CHELSY Headley T VISIT 15 MINUTES EMERGENCY 82833 [facility] 8 8 [facility] DEPARTMEN INC T VISIT LIMITED/M INOR [facility] - 8 8 [facility] OUTPATIEN INC T OFFICE 38895 ALLFAINA ALLRAN CONSULTAT 8 8 JR EDWARD ION CHARLES F CHARLES F NEW/ESTAB PATIENT 60 MIN HOSPITAL [facility] - 8 8 [facility] OUTPATI[facility] INC T EMERGENCY 24889 [facility] 8 8 [facility] DEPARTMEN INC T VISIT MODERATE SEVERITY HOSPITAL [facility] - 8 8 [facility] OUTPAT[facility]EN INC T EMERGENCY 51209 JENNIFER ROSARIO, 8 8 [facility] DEPARTMEN CORPORATI T VISIT ON HIGH/URGE NT SEVERITY OFFICE 06719 LEANA DUEÑAS OUTPATIEN 8 8 CHELSY Headley T VISIT 15 MINUTES EMERGENCY 39345 [facility] 8 8 [facility] DEPARTMEN INC T VISIT LIMITED/M INOR [facility] - 8 8 [facility] OUTPATIEN INC T EMERGENCY 83452 JENNIFER CORTÉS, 8 8 NATIONAL [facility] DEPARTMEN CORPORATI O T VISIT ON LOW/MODER SEVERITY EMERGENCY 52043 [facility] 8 8 [facility] DEPARTMEN INC T VISIT LOW/MODER SEVERITY HOSPITAL [facility] - 8 8 [facility] OUTPATIEN INC T OFFICE 20401 LEANA DUEÑAS OUTPATIEN 8 8 CHELSY Headley T VISIT 15 MINUTES HOSPITAL [facility] - 8 8 [facility] OUTPATIEN HOSP T OFFICE 77247 LEANA DUEÑAS OUTPATIEN 8 8 CHELSY Headley T VISIT 15 MINUTES OFFICE 48441 CARLOS LEYVA OUTPATISABRINA 8 8 KANNAN Franz T VISIT CARDIOLOG 40 Y MINUTES CONSULTAN T OFFICE 68918 LEANA DUEÑAS OUTPATIEN 8 8 CHELSY Headley T VISIT 15 MINUTES OFFICE 92020 LEANA DUEÑAS OUTPATISABRINA 8 8 CHELSY Headley T NEW 30 MINUTES INITIAL 37206 [facility] CARI[facility] 8 8 [facility] BRANDON - 8 8 [facility] OUTPATIEN INC T EMERGENCY 90053 [facility] 8 8 [facility] DEPARTMEN INC T VISIT HIGH/URGE NT SEVERITY OFFICE 47698 [facility] MCKEMIE OUTPATIEN 8 8 Luis Carlos VIZCARRA JR VISIT INTERNAL KANNAN F 15 MED MINUTES HOSPITAL [facility] - 8 8 [facility] OUTPATIEN [facility] BRANDON - 8 8 [facility] OUTPATIEN INC T OFFICE 82782 [facility] MCKEMIE OUTPATIEN 8 8 Luis Carlos VIZCARRA JR VISIT 5 INTERNAL KANNAN F MINUTES MED OFFICE 52224 [facility] MCKEMIE OUTPATIEN 8 8 Luis Carlos VIZCARRA JR VISIT INTERNAL KANNAN F 15 MED MINUTES EMERGENCY 33017 [facility] 8 8 [facility] DEPARTMEN INC T VISIT LIMITED/M INOR PROB HOSPITAL [facility] - 8 8 [facility] OUTPATIEN INC T OFFICE 67992 [facility] MCKEMIE OUTPATIEN 8 8 Luis Carlos VIZCARRA JR VISIT INTERNAL KANNAN F 15 MED MINUTES EMERGENCY 09707 [facility] KAPLAN, DEPT 8 8 [facility] HIGH PROF SERV SEVERITY& THREAT [facility] - 8 8 [facility] OUTPATIEN [facility] BRANDON - 8 8 [facility] OUTPATIEN [facility] OFFICE 51712 SAMANTA ENGLAND, CONSULTAT 8 8 CHUCK WOODS ION NEW/ESTAB PATIENT 80 MIN OFFICE 43567 BUNNY MANZANO, CONSULTAT 8 8 MT TERAN SERV NEW/ESTAB FOUNDATIO PATIENT 40 MIN
--- OUTSIDE RECORDS SUMMARY | 2016-12-11 10:07 | External Medical Summary Rpt ---
Author Author , Organization [employer] Address Unknown Phone Unavailable Purpose Continuity of Care Document - 08-26-1996 through 2016 Immunization Name Date Route CVX Reacti Commen Provid Is Given on t er Refuse d Tdap, Histor H149 No Adsorb 2013 ical ed Inform ation - Source Unspec ified PPV23 Histor UKHC1 No 2010 ical Inform ation - Source Unspec ified PPV23 Histor H149 No 2006 ical Inform ation - Source Unspec ified Td Histor H149 No (adult 1996 ical ), Inform adsorb ation ed - Source Unspec ified
[2016-12-11 10:18] VITALS: BP 152/85
[2016-12-21] MEDS ORDERED: BENZONATATE200 MG PO (18:58)
[2016-12-21] MEDS ORDERED: ZITHROMAX Z PA250 MG PO (18:58)
[2016-12-21] MEDS ORDERED: MEDROL 4MG. DOSE4 MG PO (18:58)
== END 2016-12-11 10:18 | disposition home or self-care (01) ==
LOC: ER 08:37
DX: I82.4Z1 Acute embolism and thrombosis of unspecified deep veins of right distal lower extremity (principal); I10 Essential (primary) hypertension; Z72.0 Tobacco use

== ENCOUNTER → 2017-03-14 | Outpatient (CLI) | payer MEDICARE, MEDICAID ==
[~2017-03-14] MED LIST changes: +BENZONATATE200 MG PO; +METFORMIN500 MG PO; +SPIRIVA HA1 PUFF/INH IH
--- NOTE | 2017-03-14 13:42 | RADIOLOGY REPORT PS360 ---
KNEE-4 OR 5 VIEWS-LT HISTORY: Left knee pain DURGA KNEE PAIN,RT ELBOW PAIN ORDERING PHYSICIAN: BRAXTON ALBERTS MD PATIENT AGE: 56 years COMPARISON: None FINDINGS: Weightbearing views are performed No fracture or dislocation. No lytic or blastic change. Normal mineralization. There are minimal osteoarthritic changes of the medial compartment and patellofemoral joint with mild spurring also of the tibial spines.. No other significant findings IMPRESSION: Minimal osteoarthritic change left knee
--- NOTE | 2017-03-14 13:43 | RADIOLOGY REPORT PS360 ---
KNEE-4 OR 5 VIEWS-RT HISTORY: Right knee pain DURGA KNEE PAIN,RT ELBOW PAIN ORDERING PHYSICIAN: BRAXTON ALBERTS MD PATIENT AGE: 56 years COMPARISON: None FINDINGS: No fracture or dislocation. No lytic or blastic change. Normal mineralization. There are minimal osteoarthritic changes of the patellofemoral joint with suspected small suprapatellar effusion. No other significant findings IMPRESSION: Minimal osteoarthritic change patellofemoral joint with small suprapatellar effusion
--- NOTE | 2017-03-14 13:51 | RADIOLOGY REPORT PS360 ---
ELBOW-RT-2 VIEWS CLINICAL INDICATION: Right elbow pain DURGA KNEE PAIN,RT ELBOW PAIN ORDERING PHYSICIAN: BRAXTON ALBERTS MD PATIENT AGE: 56 years COMPARISON: None FINDINGS: Bony hypertrophic changes are present in both the lateral and medial epicondyles. There are multiple small calcific densities along the lateral epicondyles region and may be related to prior trauma. There is a 1 7-m calcific density anterior to the radial head as well as calcification projecting over the antecubital fossa on the lateral view. These areas could also be related to prior trauma. No displaced fat pad. IMPRESSION: 1. No acute finding. 2. Periarticular calcification which could be related to old trauma/myositis ossificans
== END ==
LOC: RAD 12:05
DX: M25.561 Pain in right knee (principal); M25.562 Pain in left knee

== ENCOUNTER 2017-04-03 08:21 | Day surgery (SDC) | payer MEDICARE, MEDICAID ==
[2017-04-03 14:17] VITALS: BP 135/58
--- NOTE | 2017-04-03 14:50 | Operative Note-Urology ---
Procedure/Operative Record Procedure DATE OF PROCEDURE: 04/03/17 PREOPERATIVE DIAGNOSIS: Urinary incontinence and chronic cystitis POSTOPERATIVE DIAGNOSIS: Same stress urinary incontinence PROCEDURE PERFORMED: Cystoscopy SURGEON: Jhonathan Davis ANESTHESIA: Local Mac BRIEF HISTORY: Patient is 56 years of age and several years ago had a suburethral sling placement by me. This was effective for some time however obesity and other factors her incontinence has recurred. She is also recently had multiple episodes of urinary infections. This is been multiple different pathogens. Most of her urinary symptoms of incontinence are that of stress incontinence. I saw her recently placed her on Macrobid for suppression. She says CT scan which shows no stones or obstruction. She was dissected for cystoscopy for further evaluation of both pathologies. OPERATIVE NOTE: After satisfactory donation she was placed in the dorsal lithotomy position. The genital area was prepped and draped in standard fashion. The 19 Kyrgyz cystoscope sheath was introduced with the lead press operator. Active. She had slight amount of debris within the bladder which was irrigated clear. He had mild squamous metaplasia of the trigone with some slight cobblestoning. Ureteral seizure situated in normal position and appeared reflux clear urine. She had no significant cystocele. There is no evidence of mesh exposure. The bladder was inspected with both the 30 and 70 degree lenses. The urethra seemed hyper mobile. The scope was then placed in the vagina and there is no exposed mesh within the vagina. The floor bladder and the body of bladder seems to be rather well supported but she does have a significant rectocele. Xylocaine jelly was still the urethra. She was converted back to the supine position and transferred to the postop area in stable condition. She will remain on Macrobid until follow -up next week and we will discuss potential options for therapy. She has had significant weight loss since her previous surgery. EBL (ml): 0 IMPRESSION: Chronic cystitis with stress urinary incontinence PLAN: Plan as above at 0420
== END 2017-04-03 13:00 | disposition home or self-care (01) ==
LOC: SDC 08:21
PROC: 0TJB8ZZ Inspection of Bladder, Via Natural or Artificial Opening Endoscopic (ICD-10-PCS; principal; 2017-04-03)
DX: N39.3 Stress incontinence (female) (male) (principal); N30.20 Other chronic cystitis without hematuria; E11.9 Type 2 diabetes mellitus without complications

== ENCOUNTER 2017-04-15 16:34 | Emergency (ER) | payer MEDICARE, MEDICAID ==
[~2017-04-15] VITALS: Ht 167.6 cm; Wt 104.3 kg
--- NOTE | 2017-04-15 16:53 | Emergency Room Report ---
History of Present Illness Time Seen by [id number] Presenting Problem in Triage Pt arrived:Walked Presenting Problem:PATIENT STATES THAT SHE FELL APPROX 1.5 HOURS AGO ON HER BACK. 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 N Clinical Suspician of Infection? N Mental Status: 1 - Regular (Normal Baseline) Sepsis Risk:Low Sepsis Risk Have you (or family members/close friends) recently traveled outside the [place]? N If Yes, where/when: Have you had exposure to infectious disease within the past month? N TB? Other? Specify: 56 years old white female with frequent.. She fell backward hitting the back of her head with a result all neck pain. Also she complains of pain across her lower back. She has no weakness or numbness of the upper and lower extremities there is no loss of urine or bowel control. Source patient, RN notes reviewed, family Exam Limitations no limitations ALLERGIES Coded Allergies: Sulfa (Sulfonamide Antibiotics) (04/03/17) levofloxacin (From LEVAQUIN) (04/03/17) Home Medications Active Scripts CEFDINIR (Cefdinir) 300 MG PO BID #14 CAP Prov: 01/03/17 Reported Medications Hydroxyzine Pamoate 25 MG PO Q6 #90 Dicyclomine Hcl (Bentyl (Generic) 10MG Capsule) 10 MG PO Q6H #120 Tiotropium [place] (Spiriva) 1 PUFF IH DAILY #30 Furosemide 40 MG PO BID #30 TAB Buspirone Hcl (Buspar 10MG) 10 MG PO TID FLUTICASONE/VILANTEROL (Breo Ellipta 100-25 Mcg INH) 1 POW IH DAILY #60 INSULIN ASPART PROTAM & ASPART (Novolog Mix 70-30 Vial) 60 UNITS SC BID NITROFURANTOIN MONOHYD/M-CRYST (Macrobid 100 MG Capsule) 100 MG PO DAILY Metformin HCL (Metformin) 500 MG PO DAILY Levothyroxine Sodium (Synthroid 0.1MG) 100 MCG PO DAILY Lovastatin 10 MG PO DAILY #15 Escitalopram Oxalate (Lexapro 20MG) 20 MG PO DAILY Omeprazole (Omeprazole 40MG) 40 MG PO DAILY #30 History Medical History General CAD? No Angina: Yes ND: No Hypertension? Yes Hyperlipidemia? No CHF? Yes DVT? No PE? No COPD? Yes Asthma? Yes Anemia? Yes GERD? No Gastric ulcers? No GI Bleed? No Hernia? Yes Thyroid Problems? No Hypothyroidism? No CVA? No Seizures? 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 Yes Renal Insuffiency? No End Stage Renal Disease? No UTI? Yes Stones? No BPH? No GB Disease: Yes Nephritic Syndrome? No Asplenia? No Hepatitis? No Sickle Cell Disease? No Arthritis? Yes Migraines? No Cataracts? Yes Glaucoma? No MRSA? No HIV? No TB? No Anxiety? No Depression? No Cancer? No More? 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 Respiratory no symptoms reported Cardiovascular no symptoms reported Gastrointestinal no symptoms reported Genitourinary no symptoms reported. Musculoskeletal see HPI, back pain, neck pain Skin no symptoms reported Psychiatric/Neurological no symptoms reported Physical Exam Vital Signs Vital Signs Date Time Temp Pulse Resp B/P Pulse O2 O2 Flow FiO2 Ox Delivery Rate 04/15 1903 52 18 87/55 96 04/15 1803 50 18 88/35 94 04/15 1638 59 18 115/60 97 - WBC >12,000 or <4,000 or 10% bands? 2 or more SIRS Criteria Met? B/P:115/60 MAP:78 Creatinine >2.0? UA output<0.5ml/kg/hr for 2 hrs? Platelet count >100,000? Lactate >2.0mmol/1? INR >1.2 or PTT > than 60 sec? Evidence of Organ Dysfunction? Provider documented clinical suspician of infection? N Sepsis Criteria Count: 0 Sepsis Risk: Low Sepsis Risk General Appearance normal appearance, WD/WN, no apparent distress Eye Exam - bilateral eye normal exam, bilateral eye PERRL, bilateral eye EOMI Ear, Nose, Throat hearing grossly normal, normal ENT inspection Neck normal inspection, non-tender, supple, full range of motion, the patient has no cervical spine tenderness Respiratory Status Yes: trachea midline, chest symmetrical, non tender chest. No: respiratory distress. Lung Sounds bilateral: normal breath sounds, lungs clear. Cardiovascular normal exam, regular rate/rhythm, no peripheral edema, no gallop, no JVD, no murmur, no rub, normal peripheral pulses Peripheral Pulses Pulses normal Yes Gastrointestinal normal bowel sounds, normal exam, non tender, soft, no organomegaly Back normal inspection, no CVA tenderness, vertebral tenderness, the patient has tenderness over L5-S1 across her back Extremities the RIGHT foot is in a boot due to fracture Neurologic alert, armature bander II-XII nml as tested, normal exam, no motor/sensory deficits, oriented x 3, note is 5/5 upper and lower extremities, (straight leg raising is 90 deg), SLR 90 degree bilaterally Glascow Coma Scale Glascow Coma Scale Response Value EYE response: 4 Spontaneously 4 MOTOR response: 6 OBEYS 6 VERBAL response: 5 Oriented & Converses 5 Total 15 Reflexes Reflexes normal Yes DTR 2+ bicep (R), 2+ bicep (L), 2+ tricep (R), 2+ tricep (L), 2+ knee (R), 2+ knee (L) Mental status normal mood/affect Skin intact, normal color, warm/dry Medical Decision Making LABS/Meds/Orders Pt receiving controlled substance in ED? No Results/Orders Orders Procedure Date/time Status DIET-NOTHING BY MOUTH 04/[address] HEAD REQ 04/[address] SCAN REQUEST 04/15 1745 Complete Departure Departure Time of Disposition 1958 Disposition DC Home or Self Care(routine) Clinical Impression Primary Impression: Opiate dependence Secondary Impressions: Falls, Head contusion, Lumbar contusion Condition STABLE Referrals SIMBA FULLER APRN Additional Instructions THE PATIETN BECAME MORE AOUSABLE DURONH HER ED STAY AND SHE REQUESTED PAIN MEDIATIONS, IDECLINED. SHE HAD PRIOR FALLS DUE TO HER OPIATE DEPENDENCE AND SIDE EFFECTS, HER CT SCANS AND LUMBAR X RAY WERE NEGATIVE FOR ANY ACUTE ABNORMALITY. SHE IS TO GO HOME WITH HEAD INURY INSTRUCTIONS HOB 30 DEGREE FOLLOW UP WITH PCP IN AM ON FINAL X RAYS REPORTS TO ADDRESS ANY NON E,MERGENCY FINDINGS. SHE WAS DISCHARGED WITH THE FAMILY IN STABLE CONDITION . DR. HURTADO ED Critical Care Critical Care No If Critical Care minutes are documented, the time involved in the performance of seperately reportable procedures was not counted toward critical care time documented. I directly delivered medical care to this critically ill and/or injured patient. Timely evaluation and treatment was necessary to address the significant organ system(s) dysfunction present in this patient. at 2002
--- OUTSIDE RECORDS SUMMARY | 2017-04-15 17:22 | External Medical Summary Rpt | CCD ---
Author Author , LEOBARDO Organization LEOBARDO Address Unknown Phone [email or web address] Care Team Providers Care Marina Porter Name Role Phone JARED-YANIQUE MOH, Unavailable Unavailable JARED-YANIQUE MOH PETER JULIÁN, PETER Unavailable Unavailable JULIÁN MIRANDA MICHAEL, MIRANDA Unavailable Unavailable MICHAEL [facility], Unavailable Unavailable [facility], Unavailable Unavailable [facility] [employer] Unavailable Unavailable INC, [employer] [facility] ALFARIS MOH, ALFARIS Unavailable Unavailable MOH JESUS SHANTHI, JESUS SHANTHI Unavailable Unavailable [facility] Unavailable Unavailable [place], [facility] [place] LUKE BERMUDEZ JR, Unavailable Unavailable LUKE BERMUDEZ JR AMANDA, WILDE Unavailable Unavailable AMANDA CHELSY DUEÑAS, Unavailable Unavailable CHELSY DUEÑAS ALMAS FAD, ALMAS FAD Unavailable Unavailable [facility] Unavailable Unavailable SERVICES, [facility] Unavailable Unavailable SERVICES, [facility] Unavailable [facility] Unavailable Unavailable [facility], [facility] COTTO BRO, COTTO Unavailable Unavailable BRO BEINEKE, BEINEKE Unavailable Unavailable BEINEKE ANITA, BEINEKE Unavailable Unavailable ANITA BENSEMA MAR, BENSEMA Unavailable Unavailable MAR BESSON CATRACHITO, BESSON Unavailable Unavailable CATRACHITO BESSON, LAURIE A, Unavailable Unavailable BESSON, LAURIE A BAZZI TAR, BAZZI Unavailable Unavailable TAR ROB JANET, Unavailable Unavailable ROB JANET VIVIANA OLIVIA, Unavailable Unavailable VIIVANA OLIVIA MAR JARRELL, Unavailable Unavailable MAR JARRELL WILLIAM G, Unavailable Unavailable KANNAN LEYVA FLANNERY, FLANNERY Unavailable Unavailable FLANNERY ALL, FLANNERY ALL Unavailable Unavailable RIS[place], Unavailable Unavailable [facility] Unavailable Unavailable SERVICE, [facility] Unavailable Unavailable SERVICE, [facility] BRIZUELA JAM, BRIZUELA JAM Unavailable Unavailable SOMERS LAR, SOMERS LAR Unavailable Unavailable José LYONS MD Unavailable Unavailable PSCJosé MD [facility], [facility] Unavailable Unavailable MEDICAL [facility], Unavailable Unavailable [facility] Unavailable Unavailable DUBILIER, [facility] MICHAEL TER, MICHAEL TER Unavailable Unavailable CARIAS AMBREEN, CARIAS Unavailable Unavailable AMBREEN CARIAS, RAN J, Unavailable Unavailable CARIAS, RAN J [...] [facility] Unavailable Unavailable [facility] COOK KARLA, COOK KARLA Unavailable Unavailable CEDRICK JR PETR, CEDRICK Unavailable Unavailable JR PETR HOMER AYLA, Unavailable Unavailable HOMER AYLA HOMER, FREDO, Unavailable Unavailable HOMER, FREDO [facility], Unavailable Unavailable [facility], [facility] Unavailable Unavailable [facility], [facility] DAVIES MAT, DAVIES Unavailable Unavailable [facility] Unavailable [facility] JANELLE, JANELLE Unavailable Unavailable [facility] Unavailable [facility], [facility] ARVIZU DEIDRA, Unavailable Unavailable ARVIZU DEIDRA ARVIZU DEIDRA, Unavailable Unavailable ARVIZU DEIDRA GAFFNEY PJ, GAFFNEY PJ Unavailable Unavailable [facility] Unavailable [facility]available SPECIAL, [facility] Unavailable [facility]available [place], [facility] GARO FERNANDEZ, Unavailable Unavailable GARO FERNANDEZ [facility] Unavailable Unavailable LLC, [facility], [facility] Unavailable Unavailable [facility], [facility] Unavailable Unavailable [facility] Unavailable Unavailable [facility], [facility] JESSIE SOLIS, Unavailable Unavailable JESSIE SOLIS, Unavailable Unavailable SIMBA NAJERA, Unavailable Unavailable SIMBA JOHNSON CHA, ISRA Unavailable Unavailable MARTY SMITH Unavailable Unavailable CL[facility] Unavailable Unavailable JR GINA MARTINEZ, Unavailable Unavailable JR GINA MARTINEZ VICTORIA, VICTORIA Unavailable Unavailable VICTORIA SHANTHI, VICTORIA Unavailable Unavailable SHANTHI VICTORIA, JOSEPH S, Unavailable Unavailable VICTORIA, JOSEPH S GAL THO, GAL THO Unavailable Unavailable MEJIA ROSARIO E, Unavailable Unavailable MEJIA ROSARIO E MANUEL OSWALD, MANUEL OSWALD Unavailable Unavailable GISELLE SHEA, Unavailable Unavailable GISELLE SHEA HARRIES Unavailable Unavailable JANET CARIN AQUINO Unavailable Unavailable ERVIN RODRIGEZ, Unavailable Unavailable ERVIN DEL ROSARIO [facility] Unavailable Unavailable INC, [facility] Unavailable Unavailable HOSPITAL P, [facility] BARRY CARY HARVEY, Unavailable Unavailable VIJI GAVIRIA Unavailable Unavailable [facility], Unavailable Unavailable [facility], Unavailable Unavailable [facility] MARIANA GALEANA, Unavailable Unavailable MARIANA GALEANA [facility] Unavailable Unavailable [facility], [facility] SHAK[facility], [facility] Unavailable [facility]available [facility], Unavailable [facility] ROB ZAMUDIO, Unavailable Unavailable ROB ZAMUDIO [facility] Unavailable Unavailable JANET KEKELLEN GONZALES [facility] Unavailable Unavailable ERVIN WICK, Unavailable Unavailable ERVIN HOFF [facility] Unavailable Unavailable LLC, D, [facility], D [facility] Unavailable [facility] Unavailable Unavailable IMAGING [facility], [facility] FORTINO SAENZ, , Unavailable Unavailable FORTINO Franz [facility], [facility] Un[facility], [facility] Unavailable Unavailable HOLDING, [facility] Unavailable Unavailable HOLDING, [facility] HERNANDEZ JERRY, HERNANDEZ Unavailable Unavailable JERRY OSWALDO HERNANDEZ, Unavailable Unavailable OSWALDO HERNANDEZ [facility] ERLIN CAMACHO, Unavailable Unavailable ERLIN CAMACHO LEVY LIZ Unavailable Unavailable LUCIANA EDWARD, LUCIANA EDWARD Unavailable Unavailable LUCIANA JR DWI, LUCIANA Unavailable Unavailable JR DWI LUCIANA, HUA E, Unavailable Unavailable LUCIANAHUA E [facility] Unavailable Unavailable [facility], [facility] Unavailable Unavailable [facility] Unavailable Unavailable INTERNAL MED, [facility] INTERNAL MED [facility] Unavailable Unavailable INTERNAL MEDI, [facility] M E D [facility], M E D Unavailable Unavailable SUPPLIES M E [facility], M E D Unavailable Unavailable SUPPLIES [facility], Unavailable Unavailable [facility] Unavailable Unavailable SERVICES, [facility] MARNI LUIS ALFREDO, Unavailable Unavailable MARNI LUIS ALFREDO MARNI LUIS ALFREDO, Unavailable Unavailable MARNI LUIS ALFREDO ESPINO JAM, Unavailable Unavailable ESPINO JAM ESPINO JAM, Unavailable Unavailable ESPINO JAM MCKEMIE JR PETR, Unavailable Unavailable MCKEMIE JR PETR MCKEMIE JR, KANNAN Unavailable Unavailable F, MCKEMIE JR, KANNAN F [facility], Unavailable [facility]available [facility] RACHEL MÉNDEZ P, Unavailable Unavailable RACHEL MÉNDEZ P PAGAN PETR, PAGAN PETR Unavailable Unavailable KANNAN PAGAN F, Unavailable Unavailable EJ KANNAN F MANN BET, MANN Unavailable Unavailable [...] Unavailable Unavailable RENUSCH ILIR, RENUSCH Unavailable Unavailable CHERYL CAMEJO, Unavailable Unavailable CHERYL REAL KEVIN CATRACHITO, KEVIN [...] MEDICAL SHASHY SOBEIDA, SHASHY Unavailable Unavailable SOBEIDA RAMOS ADA, RAMOS ADA Unavailable Unavailable SOKAN, SOKAN Unavailable Unavailable SOKAN, GRACE O, Unavailable Unavailable SOKAN, GRACE O [facility] Unavailable Unavailable [facility], [facility] Unavailable Unavailable EQUIPME, [facility] SOTINGEANU ANITA, Unavailable Unavailable SOTINGEANU ANITA [facility] Un[facility] Unavailable Unavailable [facility], [facility] GARCIA RAY, GARCIA Unavailable Unavailable RAY NATACHA PHI, NATACHA PHI Unavailable Unavailable NATACHA, NICOLE A, Unavailable Unavailable NATACHA, NICOLE A [facility] Unavailable Unavailable HOSPITALS, [facility], Unavailable Unavailable [facility] AND, [facility] AND Unavailable Unavailable SONI[facility]FORB[facility], Unavailable Unavailable [facility] Madelyn Lemus MD, Unavailable Unavailable Kylee Valverde MD, Unavailable Unavailable Kylee CORDERO [facility] Unavailable Unavailable [address], [facility] FRANCISCO SINGH Unavailable Unavailable MARCELINO DEIDRA, MARCELINO Unavailable Unavailable DEIDRA [facility] Unavailable Unavailable RED[facility], [facility] WEHRMAN III PETR, Unavailable Unavailable WEHRMAN III PETR MOJICA, MOJICA Unavailable Unavailable [facility] Unavailable Unavailable [facility], [facility], Unavailable [facility]available [facility], Unavailable [facility]available [facility] Purpose Continuity of Care Document - 07-11-2007 through 2016 Problems Code Diagnosis DOS Provider Status N3020 OTHER 03-14-2017 [facility] CYSTITIS INC WITHOUT HEMATURIA I119 HYPERTENSIV 02-14-2017 [facility] E HEART [facility] DISEASE INC WITHOUT HEART FAILURE I6523 OCCLUSION & 02-14-2017 [facility] STENOSIS [facility] BILATERAL INC CAROTID ARTERIES R0602 SHORTNESS 02-14-2017 [facility] OF BREATH [facility] INC R079 CHEST PAIN 02-14-2017 [facility]NSPECIFIED [facility] INC R42 DIZZINESS 02-14-2017 [facility] AND [facility] GIDDINESS INC Z720 TOBACCO USE 02-14-2017 [facility] INC E871 HYPO-OSMOLA 01-25-2017 [facility] LITY AND [facility] HYPONATREMI INC A I270 PRIMARY 01-25-2017 [facility] PULMONARY [facility] HYPERTENSIO INC N I2510 ASHD COEUR D'ALENE 01-18-2017 [facility] CORONARY [facility] ARTERY W/O INC ANGINA PECTORIS R011 CARDIAC 01-18-2017 [facility]UR[facility]UR [facility] UNSPECIFIED INC E119 TYPE 2 01-09-2017 [facility] DIABETES [facility] MELLITUS INC WITHOUT COMPLICATIO NS I10 ESSENTIAL 01-09-2017 [facility] PRIMARY [facility] HYPERTENSIO INC N [id number] CONTUSION 01-09-2017 [facility] OTHER PART [facility] OF HEAD INC INITIAL ENCOUNTER [id number] SPRAIN 01-09-2017 [facility]NSPECIFIED [facility] SITE RT INC KNEE INITIAL ENCNTR Z794 CHARGE NURSE 01-09-2017 [facility] CURRENT USE [facility] OF INSULIN INC P88439 OTHER LONG 01-09-2017 [facility] TERM [facility] CURRENT INC DRUG THERAPY J449 CHRONIC 01-03-2017 [facility] OBSTRUCTIVE [facility] PULMONARY INC DISEASE UNS R55 SYNCOPE AND 01-03-2017 [facility] COLLAPSE [facility] INC I64514 PERSONAL 01-03-2017 [facility] HISTORY OF [facility] NICOTINE INC DEPENDENCE N3000 ACUTE 12-23-2016 [facility] CYSTITIS [facility] WITHOUT INC HEMATURIA L28479 PAIN IN 11-06-2016 [facility] RIGHT LEG [facility] INC P89291 PAIN IN 11-06-2016 [facility] LEFT LEG [facility] INC J3089 OTHER 10-31-2016 [facility] [place] J310 CHRONIC 10-31-2016 [facility] RHINITIS [facility] [place] J4550 SEVERE 10-31-2016 [facility]ENT [facility] [place] UNCOMPLICAT ED D82038 ALL[facility] TO 10-31-2016 [facility] OTHER FOODS [facility] [place] 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 ATHY LUMB RGN M549 DORSALGIA 10-23-2016 [facility]NSPECIFIED [facility] INC R300 DYSURIA 10-19-2016 [facility] INC E039 HYPOTHYROID 10-05-2016 [facility] ISM [facility] UNSPECIFIED INC M7702 MEDIAL 09-19-2016 [facility] EPICONDYLIT [facility] IS LEFT INC ELBOW J040 ACUTE 2016 [facility] LARYNGITIS PHYSICIAN GROUP E71004 SPONDYLOSIS 09-15-2016 [facility] MYELOPATH/[facility] HOSPITALS ADICULOPATH Y THOR RGN X85837 SPONDYLOSIS 09-15-2016 [facility] MYELOPATH/[facility] HOSPITALS ADICULPATHY LS RGN M546 PAIN IN 09-15-2016 [facility] J069 ACUTE UPPER 09-12-2016 [facility] RESPIRATORY INC INFECTION UNSPECIFIED Q51091 PAIN IN 09-08-2016 [facility] LEFT ELB[facility] PHYSICIANS GROUP J40 BRONCHITIS 09-06-2016 [facility]ERG[facility] SPECIFIED PHYS ACUTE OR CHRONIC R05 COUGH 09-06-2016 [facility] M542 CERVICALGIA 08-29-2016 [facility] R51 HEADACHE 08-29-2016 [facility] [id number] CONTUSION 08-29-2016 [facility] OF SCALP PHYSICIANS, INITIAL PLLC ENCOUNTER Y515RRG UNSPECIFIED 08-29-2016 [facility] INJURY OF MEDICAL NECK IMAGING ASS INITIAL ENCOUNTER W95KLOP UNSPECIFIED 08-29-2016 [facility] INITIAL SERVICE ENCOUNTER M66310 PRIMARY 08-22-2016 [facility] OSTEOARTHRI [facility]ICAL TIS LEFT IMAGING ASS [place] K8689 OTHER 08-15-2016 [facility] SPECIFIED PHYSICIANS, DISEASES OF PLLC PANCREAS R1084 GENERALIZED 08-15-2016 [facility] ABDOMINAL PHYSICIANS, PAIN PLLC R8299 OTHER 08-07-2016 [facility] ABNORMAL [facility] FINDINGS IN INC URINE J03107 MIGRAINE 08-04-2016 [facility] UNS PHYSICIANS, INTRACTABLE PLLC W/STATUS MIGRAINOSUS G28381 UNSPECIFIED 08-04-2016 [facility] WITH ACUTE LLC EXACERBATIO N [id number] CONTUSION 08-04-2016 [facility] EYEBALL & PHYSICIANS, ORBITAL PLLC TISSUES RT EYE INIT Y22664 ELEVATED 07-26-2016 [facility] P UNSPECIFIED K529 NONINFECTIV 07-14-2016 [facility] E [facility] GASTROENTER INC ITIS & COLITIS UNS I509 HEART 07-12-2016 [facility]OSPITAL P R0789 OTHER CHEST 07-12-2016 [facility] PAIN PHYSICIANS, PLLC I272 OTHER 07-05-2016 [facility] SECONDARY [facility] PULMONARY INC HYPERTENSIO N I5030 UNSPECIFIED 07-05-2016 [facility] DIASTOLIC [facility] CONGESTIVE INC HEART FAILURE I959 HYPOTENSION 07-05-2016 [facility] UNSPECIFIED INC E109 TYPE 1 07-04-2016 [facility] P WITHOUT COMPLICATIO NS I9589 OTHER 07-04-2016 [facility] HYPOTENSION PHYSICIANS, [facility] R400 SOMNOLENCE 07-04-2016 [facility] PHYSICIANS, [facility] G8929 OTHER 06-29-2016 [facility] CHRONIC [facility] PAIN INC M4807 SPINAL 06-29-2016 [facility] STENOSIS [facility] LUMBOSACRAL INC REGION R042 HEMOPTYSIS 06-28-2016 [facility] R918 OTHER 06-28-2016 [facility] NONSPECIFIC [facility] ABNORMAL INC FINDING OF LUNG FIELD P05539 TYPE 2 06-21-2016 [facility] DIABETES [facility] MELLITUS INC W/HYPOGLYCE NIKOLAY W/O COMA M5432 SCIATICA 06-13-2016 [facility] LEFT SIDE PHYSICIANS, [facility] M5442 LUMBAGO 06-13-2016 [facility] WITH PHYSICIANS, SCIATICA [facility] LEFT SIDE N68602 TYPE 2 06-12-2016 [facility] MELLITUS MEDICAL WITH FOOT EQUIPME ULCER X21949 TYPE 2 06-12-2016 [facility] MELLITUS MEDICAL WITH OTHER EQUIPME SKIN ULCER G894 CHRONIC 06-12-2016 [facility] PAIN PHYSICIANS SYNDROME GROUP M4307 SPONDYLOLYS 06-12-2016 [facility] IS PHYSICIANS LUMBOSACRAL GROUP REGION S31382 PERSONAL 06-12-2016 [facility] HISTORY OF PHYSICIANS OTHER GROUP SPECIFIED CONDITIONS E876 HYPOKALEMIA 06-06-2016 [facility] PHYSICIANS, [facility] K5900 CONSTIPATIO 06-06-2016 [facility] N [facility]ICAL UNSPECIFIED IMAGING ASS N200 CALCULUS OF 06-06-2016 [facility] N390 URINARY 06-06-2016 [facility] TRACT PHYSICIANS, INFECTION [facility] SITE NOT SPECIFIED R531 WEAKNESS 06-06-2016 [facility] R634 ABNORMAL 06-06-2016 [facility] J050 ACUTE 05-18-2016 [facility] OBSTRUCTIVE PHYSICIANS, LARYNGITIS [facility] CROUP L299 PRURITUS 05-18-2016 [facility] UNSPECIFIED PHYSICIANS, [facility] M5127 OT 05-17-2016 [facility] INTERVERTEB MEDICAL RAL DISC IMAGING ASS DISPLACEMEN T LS REGION M5136 OT 05-17-2016 [facility] 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 M545 LOW BACK 05-17-2016 [facility] PAIN [facility] W42596 PAIN IN 05-13-2016 [facility] RIGHT KNEE MEDICAL IMAGING ASS L8066UT CONTUSION 05-13-2016 [facility] OF RIGHT PHYSICIANS, KNEE PLLC INITIAL ENCOUNTER Z33168 MIGRAINE 05-09-2016 [facility] W/O AURA PHYSICIANS, NOT INTRACT PLLC W/O STAT MIGRAIN I64200 PAIN IN 05-08-2016 [facility] RIGHT HIP [facility] INC B351 TINEA 04-13-2016 [facility] UNGUIUM FOOT & ANKLE CE I7090 UNSPECIFIED 04-13-2016 [facility] FOOT & ATHEROSCLER ANKLE CE OSIS R88571 PAIN IN 04-13-2016 [facility] UNSPECIFIED FOOT & LIMB ANKLE CE R0781 PLEURODYNIA 03-31-2016 [facility] R52 PAIN 03-31-2016 [facility] UNSPECIFIED [facility]BULANCE SERVICE H36909S CONTUSION 03-31-2016 [facility] UNS FRONT PHYSICIANS, WALL THORAX PLLC INITIAL ENCNTR O486RCU UNSPECIFIED 03-31-2016 [facility] INJURY OF MEDICAL THORAX IMAGING ASS INITIAL ENCOUNTER L0291 CUTANEOUS 03-20-2016 [facility] ABSCESS [facility] UNSPECIFIED INC V93089R CONTUSION 03-17-2016 [facility] LEFT FRONT PHYSICIANS, WALL THORAX PLLC INITIAL ENC G28620H CONTUSION 03-17-2016 [facility] OF LEFT PHYSICIANS, SHOULDER PLLC INITIAL ENCOUNTER P71000 NON-PRSS 03-14-2016 [facility] CHRN ULCER PHYSICIANS SKIN OTH GROUP SITES UNS SEVERITY I48231 CELLULITIS 03-09-2016 [facility] OF [facility] ABDOMINAL INC WALL L0027YK OTHER 03-09-2016 [facility] COMPLICATIO PHYSICIANS, NS PROC NEC PLLC INITIAL ENCOUNTER E049 NONTOXIC 02-17-2016 [facility] GOITER PHYSICIANS UNSPECIFIED GROUP R1310 DYSPHAGIA 02-17-2016 [facility] UNSPECIFIED PHYSICIANS GROUP F46158R UNS FOREIGN 02-17-2016 [facility] BODY PHYSICIANS LARYNX CAUS GROUP OTH INJURY INIT ENC U73506 PAIN IN 02-10-2016 [facility]IP [facility] F806HYE STRAIN 02-10-2016 [facility] MUSCLE FASC [facility] & TENDON INC NECK LEVL INIT ENC R1364KL CONTUSION 02-10-2016 [facility] OF LEFT HIP [facility]OS[facility] INITIAL INC ENCOUNTER F07420B UNSPECIFIED 02-10-2016 [place] INJURY MEDICAL LEFT HIP IMAGING ASS INITIAL ENCOUNTER K47181 UNSPECIFIED 02-07-2016 [facility] KERATITIS LEFT EYE R221 LOCALIZED 02-05-2016 [facility] SWELLING [facility] MASS AND INC LUMP NECK R4702 DYSPHASIA 02-03-2016 [facility] INC R5383 OTHER 06-15-2015 [facility] FATIGUE [facility] INC B75565G CONTUSION 06-03-2015 [facility] RT FRONT PHYSICIANS, WALL THORAX PLLC INITIAL ENCOUNTER G25718 PAIN IN 05-29-2015 [place] RIGHT WRIST MEDICAL IMAGING ASS X33730 PAIN IN 05-29-2015 [place] UNSPECIFIED MEDICAL HIP IMAGING ASS I75734 PAIN IN 05-29-2015 [facility] LEFT KNEE MEDICAL IMAGING ASS K7988IK CONTUSION 05-29-2015 [place] OF NOSE MEDICAL INITIAL IMAGING ASS ENCOUNTER A21286J UNSPECIFIED 05-29-2015 [facility] SPRAIN [facility] RIGHT WRIST INC INITIAL ENCOUNTER H2611LN SPRAIN 05-29-2015 [facility] UNSPECIFIED [facility] SITE LT INC KNEE INITIAL ENCNTR Z043 ENCOUNTER 05-29-2015 [facility] EXAM & MEDICAL OBSERVATION IMAGING ASS FOLLOW OTH ACCIDENT E1121 TYPE 2 05-25-2015 [facility]ES [facility] P W/DIABETIC NEPHROPATHY I96 GANGRENE 05-25-2015 [facility] NOT ANESTH OF ELSEWHERE THE BLUE CLASSIFIED R41979 NON-PRSS 05-25-2015 [facility] TORO & OTH PART RT DUBILIER FT W/UNS SEVERITY Q11871 OTHER ACUTE 05-25-2015 [facility] P IS RIGHT ANKLE AND FOOT Z9111 PATIENTS 05-25-2015 [facility] NONCOMPLIAN [facility] CE WITH HOSPITAL P DIETARY REGIMEN G55124 NON-PRSS 05-24-2015 [facility] MED[facility] O[facility] PART LT IMAGING ASS FOOT UNS SEVERITY M2011 HALLUX 05-24-2015 [facility] VALGUS PHYSICIANS, ACQUIRED [facility] RIGHT FOOT 7231 CERVICALGIA 03-06-2015 [facility] 7802 SYNCOPE AND 03-06-2015 [facility] COLLAPSE [facility] 7840 HEADACHE 03-06-2015 [facility] 82411 INJURY OF 03-06-2015 [facility] FACE AND MEDICAL NECK OTHER IMAGING ASS AND UNSPECIFIED 04153 ACUTE PAIN 03-05-2015 [facility] DUE TO AMBULANCE TRAUMA SERVICE 10453 PAIN IN 03-05-2015 [place] JOINT MEDICAL PELVIC IMAGING ASS REGION AND THIGH 8470 NECK SPRAIN 03-05-2015 [facility] AND STRAIN PHYSICIANS, [facility] 920 CONTUSION 03-05-2015 [facility] OF FACE PHYSICIANS, SCALP AND [facility] NECK EXCEPT EYE E8889 UNSPECIFIED 03-05-2015 [facility] SERVICE 7881 DYSURIA 02-24-2015 [place] [address] DIAB W/O 02-09-2015 [facility] COMP TYPE I HOME [JUV] NOT MEDICAL STATED EQUIPME UNCNTRL 36307 OBSTRUCTIVE 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 EQUIPME 61473 EXTRINSIC 02-09-2015 [facility]MA, HOME UNSPECIFIED MEDICAL EQUIPME 97330 DIAB W/OTH 02-03-2015 [facility] MANIFESTS [facility] TYPE I INC [JUV] NOT UNCNTRL 4019 UNSPECIFIED 02-03-2015 [facility] ESSENTIAL [facility] HYPERTENSIO INC N 4139 OTHER AND 02-03-2015 [facility] UNSPECIFIED [facility] ANGINA INC PECTORIS 496 CHRONIC 02-03-2015 [facility] AIRWAY [facility] OBSTRUCTION INC NEC 10404 OTHER 02-03-2015 [facility] MALAISE AND [facility] FATIGUE INC V5867 LONG-TERM 02-03-2015 [facility] USE OF [facility] INSULIN INC 7906 OTHER 02-01-2015 [facility] ABNORMAL [facility] BLOOD INC CHEMISTRY V7389 SPECIAL 02-01-2015 [facility] SCREENING [facility] EXAMINATION INC OTH SPEC VIRAL DZ 7295 PAIN IN 01-06-2015 [facility] SOFT MEDICAL TISSUES OF IMAGING ASS LIMB 97595 SWELLING OF 01-06-2015 [facility] LIMB [facility]ICAL [facility] ASS 7823 EDEMA 01-06-2015 [facility] INC 97838 CHEST PAIN 12-31-2014 [facility] UNSPECIFIED [facility]ICAL IMAGING ASS 29067 PAIN IN 12-17-2014 [place] JOINT, MEDICAL SHOULDER IMAGING ASS REGION 47705 PAIN IN 12-17-2014 [place] JOINT, MEDICAL FOREARM IMAGING ASS 63308 PAIN IN 12-17-2014 [place] JOINT, MEDICAL LOWER LEG IMAGING ASS 8408 SPRAIN&STRA 12-17-2014 [facility]C [facility] SHOULDER&UP PER ARM 8409 SPRAIN&STRA 12-17-2014 [place] [facility]NSPEC [facility]YS[facility]IANS, SITE [facility] SHOULDER&UP PER ARM 25936 SPRAIN AND 12-17-2014 [facility] STRAIN OF [facility] UNSPECIFIED INC SITE OF WRIST 8449 SPRAIN&STRA 12-17-2014 [facility] IN OF [facility] UNSPECIFIED INC SITE OF KNEE&LEG 9221 CONTUSION 12-17-2014 [facility] OF CHEST [facility] WALL [facility] 00155 OTHER 12-17-2014 [place] INJURY OF MEDICAL CHEST WALL IMAGING ASS 72831 OTHER 12-17-2014 [place] INJURY OF MEDICAL OTHER SITES IMAGING ASS OF TRUNK 9592 INJURY 12-17-2014 [place] OTHER&UNSPE MEDICAL CIFIED IMAGING ASS SHOULDER&UP PER ARM 9593 INJURY 12-17-2014 [place] OTHER&UNSPE MEDICAL CIFIED IMAGING ASS ELBOW FOREARM&WRI ST 9597 INJURY 12-17-2014 [place] OTHER&UNSPE MEDICAL CIFIED KNEE IMAGING ASS LEG ANKLE&FOOT V714 OBSERVATION 12-17-2014 [place] FOLLOWING [facility]ICAL OTHER IMAGING ASS ACCIDENT 5718 OTHER 12-16-2014 [place] [facility] C LIVER DISEASE 19302 ABDOMINAL 12-16-2014 [place] [facility] PAIN RIGHT SERV UPPER [facility] QUADRANT 7892 SPLENOMEGAL 12-16-2014 [facility] 2512 HYPOGLYCEMI 11-25-2014 [facility] A, [facility] UNSPECIFIED [facility] 31883 SHORTNESS 11-11-2014 [place] [facility] BRE[facility] 79898 DIAB 10-23-2014 [facility] W/[facility] MANIFESTS [facility] TYPE II/UNS TYPE UNCNTRL 91877 UNSPECIFIED 10-23-2014 [facility] CELL[facility]ITIS [facility] AND [facility] ABSCESS OF TOE 79278 ULCER OF 10-23-2014 [facility] OTHER PART PATHOLOGY OF FOOT SERVICES 7224 DEGENERATIO 10-17-2014 [place] N OF MEDICAL CERVICAL IMAGING ASS INTERVERTEB RAL DISC 19747 DIAB W/O 09-27-2014 [facility] COMP TYPE [facility] II/UNS NOT INC STATED UNCNTRL 2724 OTHER AND 09-27-2014 [facility] UNSPECIFIED [facility] INC HYPERLIPIDE NIKOLAY 49113 OBESITY, 09-27-2014 [facility] U[facility]PECIFIED [place] INTERNAL MED 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 INC UNSPECIFIED 60540 ALTERED 09-27-2014 [facility]ENTAL [place] STATUS INTERNAL MED 7862 COUGH 09-27-2014 [facility] 02259 POISONING 09-27-2014 [facility] BY OPIUM , ZACKERY UNSPECIFIED INTERNAL MED E8502 ACCIDENTAL 09-27-2014 [facility] P ATED NARCOTICS 5180 PULMONARY 09-26-2014 [facility] 74402 FEVER 09-26-2014 [facility]NSPEC[facility] MEDICAL IMAGING ASS 7869 OTH 09-26-2014 [place] SYMPTOMS MEDICAL INVOLVING IMAGING ASS RESPIRATORY SYSTEM&CHES T V053 NEED PROPH 09-07-2014 [place] [facility] VACC&INOCUL SERV AT AGAINST [facility] VIRAL HEP 36305 CONTUSION 09-03-2014 [facility] P 98205 CONTUSION 09-03-2014 [facility] [place] P 04286 CLOSED 05-01-2014 [facility] FRACTURE PHYSICIANS METACARPAL GROUP BONE SITE UNSPECIFIED E8888 OTHER FALL 04-28-2014 [facility] N EMERGENCY PHYS V1582 PERS HX 04-28-2014 [facility] TOBACCO USE [facility] PRESENTING INC HAZARDS HEALTH 2104 BENIGN 04-27-2014 [facility], NOSE NEOPLASM AND THROAT OTHER&UNSPE SPECIAL CIFIED PARTS MOUTH 03719 DYSFUNCTION 04-27-2014 [facility], NOSE OF AND THROAT EUSTACHIAN SPECIAL TUBE 24005 OTOGENIC 04-27-2014 E[facility], NOSE PAIN AND THROAT SPECIAL 87022 DYSPHAGIA 04-27-2014 [facility], NOSE UNSPECIFIED AND THROAT SPECIAL 4770 ALLERGIC 04-13-2014 [facility] RHINITIS [facility] DUE TO POLLEN 4778 ALLERGIC 04-13-2014 [facility] RHINITIS [facility] DUE TO OTHER ALLERGEN 4772 ALLERGIC 04-06-2014 [facility] RHINITIS [facility] DUE TO ANIMAL HAIR AND DANDER 96639 CHRONIC 04-06-2014 [facility] OBSTRUCTIVE [facility] ASTHMA UNSPECIFIED 21054 SENSORINEUR 04-03-2014 [facility], NOSE AL HEARING AND THROAT LOSS SPECIAL BILATERAL 2728 OTHER 03-19-2014 [facility] 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 50515 DIAB 03-16-2014 [place] [facility] TYPE II/UNS NOT UNCNTRL 5939 UNSPECIFIED 03-03-2014 [facility] DISORDER N EMERGENCY OF KIDNEY PHYS AND URETER 5990 URINARY 03-03-2014 [facility] TRACT N EMERGENCY INFECTION PHYS SITE NOT SPECIFIED 49345 OTHER 01-28-2014 [facility] DISORDER OF STOMACH AND DUODENUM 5715 CIRRHOSIS 01-28-2014 [facility] WITHOUT MENTION OF ALCOHOL 5723 PORTAL 01-28-2014 [facility] N V7651 SPECIAL 01-28-2014 [facility] NEOPLASMS COLON 2168 BENIGN [...] GOITER, 12-23-2013 [facility]NSPECIF[facility] INC 04337 ABDOMINAL 12-15-2013 [facility] PAIN OTHER [facility] SPECIFIED INC SITE 60713 OTHER ACUTE 12-01-2013 [facility] 27063 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 [facility] 5778 OTHER 12-01-2013 [place] [facility] SPECIFIED SERV DISEASE OF FOUNDATIO PANCREAS 05502 DIARRHEA 12-01-2013 [facility] 75772 ABDOMINAL 12-01-2013 [place] [facility] PAIN, SERV UNSPECIFIED FOUNDATIO SITE 7948 NONSPECIFIC 12-01-2013 [place] MEDICAL ABNORMAL SERV RESULTS FOUND[facility] LIVR FUNCTION STUDY V762 SCREENING 11-19-2013 [facility] MALIGNANT NEOPLASM OF THE CERVIX 56019 OTHER CHEST 11-08-2013 [facility] PAIN N EMERGENCY PHYS 66884 OTHER 11-08-2013 [place] NONSPECIFIC MEDICAL ABNORMAL IMAGING ASS FINDING OF LUNG FIELD 7242 LUMBAGO 09-23-2013 [facility] INC V571 OTHER 09-23-2013 [facility] PHYSICAL [facility] THERAPY INC V5869 LONG-TERM 09-17-2013 [facility] (CURRENT) [facility] USE OF INC OTHER MEDICATIONS 7226 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 UNSPEC 99158 DEGEN 09-11-2013 [place] [facility] LUMBAR/LUMB SERV OSACRAL FOUNDATIO INTERVERTEB RAL DISC 30588 MIXED 09-02-2013 [facility] INCONTINENC [facility] E [facility]INE [facility] P STRESS 11059 MORBID 08-25-2013 [facility] OBESITY [facility] P 4409 GENERALIZED 08-25-2013 [place] AND MEDICAL UNSPECIFIED IMAGING ASS ATHEROSCLER OSIS 4471 STRICTURE 08-25-2013 [facility] MEDICAL IMAGING ASS 4830 PNEUMONIA 08-25-2013 [facility] P PNEUMONIAE 15614 SCOLIOSIS , 08-25-2013 [place] IDIOPATHIC [facility] V8541 BODY MASS 08-25-2013 [facility] 40.0-44.9 HOSPITAL P ADULT 4829 UNSPECIFIED 08-23-2013 [facility] BACTERIAL EMERGENCY PNEUMONIA SERVICES 05887 OTHER 08-23-2013 [place] DISEASES OF MEDICAL LUNG NOT IMAGING ASS ELSEWHERE CLASSIFIED 82513 DEGEN 08-23-2013 [place] THORACIC/TH MEDICAL ORACOLUMBAR IMAGING ASS INTERVERTEB RAL DISC 3540 CARPAL 08-20-2013 [facility] MITCH 7238 OTHER 08-20-2013 [facility] SYNDROMES NEUROLOGY AFFECTING CENTER MITCH CERVICAL REGION 97339 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-2013 [place]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 80170 SPINAL STEN 08-18-2013 [place] LUMB REG MEDICAL W/O IMAGING ASS NEUROGENIC CLAUDICATIO N 8404 ROTATOR 07-26-2013 [facility] CUFF SPRAIN [facility] AND STRAIN INC 5989 UNSPECIFIED 05-06-2013 [facility]AL [facility] STRICT[facility] P 85889 UNSPECIFIED 04-29-2013 [facility] URETHRITIS [facility] P 5952 OTHER 04-08-2013 [facility] P 28665 DIAB W/O 04-03-2013 [facility] MENTION [facility] COMP TYPE I INC [JUV TYPE] UNCNTRL 01633 UNSPECIFIED 04-03-2013 [facility] EM[facility]GENCY CONSTIPATIO SERVICES N 95610 OTHER 03-31-2013 [facility] CHRONIC [facility] ALLERGIC CONJUNCTIVI TIS 27220 NUCLEAR 03-18-2013 [facility] 3669 UNSPECIFIED 03-18-2013 [facility] CATARACT [facility] INC V148 PERSONAL 03-18-2013 [facility] HISTORY [facility] ALLERGY OTH INC SPEC MEDICINAL AGTS 2689 UNSPECIFIED 02-25-2013 [facility] VITAMIN D [facility] DEFICIENCY 4919 UNSPECIFIED 02-04-2013 [facility] CHRONIC [facility] BRONCHITIS 65046 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 [facility] 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[facility] STATUS ASTHMATICUS 03980 MIGRAINE 01-30-2013 [facility] UNSP W/O VALLEY INTRACT W/O INTERNAL STATUS MED MIGRAINOSUS 95831 ABDOMINAL 01-23-2013 [facility], LEFT PHYSICIANS LOWER LA QUADRANT 460 ACUTE 01-22-2013 [facility] NASOPHARYNG VALLEY ITIS INTERNAL MEDI 68294 VISUAL 01-14-2013 [facility] 3688 OTHER 01-14-2013 [place] SPECIFIED EYE VISUAL INSTITUTE DISTURBANCE S 490 BRONCHITIS 12-28-2012 [facility] NOT VALLEY SPECIFIED INTERNAL ACUTE OR MED CHRONIC 5110 PLEURISY 12-20-2012 [facility] WITHOUT [facility] MENTION INC EFFUS/[place] [address] PAINFUL 12-20-2012 [facility] RESPIRATION [place] INTERNAL MED 46217 DIAB W/O 12-17-2012 M E D MENTION SUPPLIES COMP TYPE II/UNS TYPE UNCNTRL 60949 URINARY 11-27-2012 [facility] FREQUENCY [place] INTERNAL MEDI 6279 UNSPECIFIED 11-13-2012 [facility] MENOPAUSAL& INC POSTMENOPAU HERBERT DISORDER 56433 PATELLAR 11-13-2012 [facility] TENDINITIS PHYSICIANS GROUP 43931 ACHILLES 11-13-2012 [facility] OR HOME TENDINITIS MEDICAL EQUIPME 94992 OTHER 11-13-2012 [facility] SYNOVITIS PHYSICIANS AND GROUP TENOSYNOVIT IS 7289 UNSPECIFIED 11-13-2012 [facility] DISORDER PHYSICIANS OF MUSCLE GROUP LIGAMENT&FA SCIA 90789 DISORDER OF 11-13-2012 [place] BONE AND MEDICAL CARTILAGE IMAGING ASS UNSPECIFIED V4981 ASYMPTOMATI 11-13-2012 [facility] MEDICAL POSTMENOPAU IMAGING ASS HERBERT STATUS 37143 OSTEOARTHRO 11-07-2012 [facility] UNSPEC MEDICAL WHETHER IMAGING ASS GEN/LOC LOWER LEG 4739 UNSPECIFIED 10-17-2012 [facility] SINUSITIS [place] INTERNAL MEDI 6931 DERMATITIS 09-30-2012 [facility] DUE TO FOOD [facility] TAKEN INTERNALLY V727 DIAGNOSTIC 09-30-2012 [facility] SKIN AND LU[facility] ALFREDO SENSITIZATI ON TESTS 22365 URGE 08-29-2012 [facility] P 2449 UNSPECIFIED 08-28-2012 [facility] HYPOTHYROID INTERNAL ISM MEDI 31017 OTHER 08-23-2012 [place] SPECIFIED MEDICAL DISORDERS IMAGING ASS OF BLADDER V7612 OTHER 08-23-2012 [place] SCREENING MEDICAL MAMMOGRAM IMAGING ASS 5932 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 [place]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 7533 OTHER 08-09-2012 [place] 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 0419 BACTERIAL 08-08-2012 [facility] INFECTION [place] UNSPECIFIED INTERNAL CCE & UNS MED SITE 13991 DEHYDRATION 08-08-2012 [facility] [place] INTERNAL MED V7231 ROUTINE 08-05-2012 [facility] EXAMINATION SONIA 4720 CHRONIC 08-02-2012 [facility] RHINITIS [place] INTERNAL MEDI 16835 MASTODYNIA 08-02-2012 [facility] VALLEY INTERNAL MEDI 4011 ESSENTIAL 07-09-2012 [facility] HYPERT[facility] N, BENIGN 7964 OTHER 07-05-2012 [facility]PAT[facility] ABNORMAL CARE, PLL CLINICAL FINDING 71556 COR 07-01-2012 [facility]ERO [facility] UNSPEC TYPE VESSEL COEUR D'ALENE/ELSA T 86675 UNSPECIFIED 06-19-2012 [facility] VIRAL EMERGENCY INFECTION SERVICES IN CCE & UNS SITE 66814 CONTUSION 06-14-2012 [facility] OF [facility] INC 9233 CONTUSION 06-14-2012 [facility] OF FINGER [facility] INC 74744 CONTUSION 06-14-2012 [facility] OF KNEE [facility] INC 9599 INJURY 06-14-2012 [place] OTHER AND MEDICAL UNSPECIFIED IMAGING ASS UNSPECIFIED SITE 4659 ACUTE URIS 06-05-2012 [facility] UNSPECIFIED CENTER SITE 8489 UNSPECIFIED 06-05-2012 [facility] SPRAIN AND CENTER STRAIN V8542 BODY MASS 05-23-2012 [facility] 45.0-49.9 CENTER ADULT 38691 ATROPHIC 05-20-2012 [facility] GASTRITIS SURGIAL WITHOUT ASSOCIATE MENTION OF HEMORRHAGE 91987 NAUSEA WITH 05-20-2012 [facility] VOMITING SURGIAL ASSOCIATE V1279 PERSONAL 05-20-2012 [facility] HISTORY OTH PHYS SURG DISEASES CTR DIGESTIVE DISEASE 4660 ACUTE 05-05-2012 [facility] BRONCHITIS N EMERGENCY PHYS 11835 ASTHMA, 05-05-2012 [facility] UNSPECIFIED N EMERGENCY , PHYS UNSPECIFIED STATUS 1129 CANDIDIASIS 05-03-2012 [facility] UNSPECIFIED CENTER SITE 4619 ACUTE 05-03-2012 [facility] SINUSITIS, HEALTHCARE UNSPECIFIED CENTER V0481 NEED 04-17-2012 [facility] PROPHYLACTI [facility]ARE C CENTER VACCINATION &INOCULATIO N FLU 18226 ESOPHAGEAL 04-16-2012 [facility] REFLUX SURGIAL ASSOCIATE 5559 REGIONAL 04-16-2012 [facility] ENTERITIS SURGIAL OF ASSOCIATE UNSPECIFIED SITE 50969 POLYURIA 03-29-2012 [facility] [employer] 99590 UNSPECIFIED 03-18-2012 [facility] VAGINITIS PSC AND VULVOVAGINI TIS 6235 LEUKORRHEA 03-18-2012 [facility] NOT PSC SPECIFIED INFECTIVE 6248 OTH SPEC 03-17-2012 [facility]PATIENT NONINFLAMMA CARE, PLLC TORY DISORDER VULVA&PERIN EUM 32121 LOSS OF 02-20-2012 C SOPHIE WEIGHT ELOY SANCHEZ PSC 65157 UNSPECIFIED 02-14-2012 [facility] ARTHROPATHY INTERNAL MULTIPLE MEDI SITES 11614 ABDOMINAL 02-14-2012 [facility] PAIN, VALLEY GENERALIZED INTERNAL MEDI V741 SCREENING 02-14-2012 [facility] EXAMINATION VALLEY FOR INTERNAL PULMONARY MEDI TUBERCULOSI S 87169 ABDOMINAL 02-07-2012 [facility] PAIN, LEFT [facility] UPPER INC QUADRANT 49456 VASCULAR 01-06-2012 [facility] ES OF CONJUNCTIVA 98463 SWELLING OR 01-06-2012 [facility] EYE 71683 REDNESS OR 01-06-2012 [facility] EYE 20310 OTHER 01-06-2012 [place] MEDICAL DISEASES OF SERV NASAL FOUNDATIO CAVITY AND SINUSES 0539 HERPES 12-14-2011 [facility] ZOSTER VAL[facility] WITHOUT INTERNAL MENTION OF MED COMPLICATIO N 7891 HEPATOMEGAL 12-07-2011 [facility] Y MEDICAL IMAGING ASS 09964 PAIN IN 11-11-2011 [facility] JOINT, VALLEY ANKLE AND INTERNAL FOOT MED 10243 TRANSIENT 11-10-2011 [facility] ARTHROPATHY [facility] ANKLE AND INC FOOT 6826 CELLULITIS 10-19-2011 [facility] AND ABSCESS VALLEY OF LEG INTERNAL EXCEPT FOOT MED 4780 HYPERTROPHY 10-12-2011 [facility] OF NASAL [facility]FR[facility] TURBINATES 9164 HIP THI 10-03-2011 [facility] LEG&ANK VALLEY INSECT BITE INTERNAL MED NONVENOMOUS W/O INF E9064 BITE OF 10-03-2011 [facility] NONVENOMOUS VALLEY ARTHROPOD INTERNAL MED 32904 TRANSIENT 09-25-2011 [facility] VISUAL LOSS [facility] INC 83647 SCOTOMA 09-25-2011 [facility] INVOLVING [facility] CENTRAL INC AREA IN VISUAL FIELD 40449 DISORDERS 09-25-2011 [facility] VISUAL [facility] CORTEX INC ASSOCIATED W/NEOPLASMS 7842 SWELLING 09-25-2011 [place] MASS OR MEDICAL LUMP IN IMAGING ASS HEAD AND NECK 14909 BORDERLINE 09-15-2011 [facility] GLAUC OPEN JAM ANGLE BL FINDINGS LOW RSK 87843 CHRONIC 09-07-2011 [facility] OBSTRUCTIVE [facility]FR[facility]O 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EXACERBATIO N 77426 OBSTRUCTIVE 08-30-2011 [facility] CHRONIC VALLEY BRONCHITIS INTERNAL WITH MED EXACERBATIO N 4293 CARDIOMEGAL 08-17-2011 [place] Y MEDICAL IMAGING ASS 64903 CHRONIC 08-09-2011 [facility] TENSION JAM TYPE HEADACHE 38059 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 31479 DIAB 06-25-2011 [facility] W/RENAL [facility] MANIFESTS INC TYPE I [JUV TYPE] UNCNTRL 80672 OBST 06-25-2011 [facility] CHRONIC [facility] BRONCHITIS INC W/ACUTE BRONCHITIS 13007 NAUSEA 06-25-2011 [facility] EMERGENCY SERVICES 7841 THROAT PAIN 06-06-2011 [place] [facility]ICAL SERV FOUNDAT[place] 50378 OTHER 05-25-2011 [facility] SYMPTOMS [facility] INVOLVING INC HEAD AND NECK 4721 CHRONIC 05-15-2011 EAR, NOSE PHARYNGITIS AND THROAT SPECIAL 462 ACUTE 05-09-2011 [facility] PHARYNGITIS [place] INTERNAL MED 79226 UNSPECIFIED 04-12-2011 [facility] PHYSICIANS ARTHROPATHY LA ANKLE AND FOOT 6989 UNSPECIFIED 03-28-2011 [facility] PRURITIC [facility] DISORDER INC 6929 CONTACT 03-27-2011 DER[facility]Y DERMATITIS& OTHER CONSULTANTS ECZEMA DUE PSC UNSPEC CAUSE 64421 WHEEZING 03-20-2011 [facility] 7391 NONALLOPATH 03-08-2011 [facility] GONZALES IC LESION OF CERVICAL REGION NEC 4548 VARICOSE 02-23-2011 [facility]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 SERVICES EXTREMITIES W/OTH COMPS 7827 SPONTANEOUS 02-23-2011 [facility] ECCHYMOSES [facility] INC 49365 CONTUSION 02-23-2011 [facility] OF THIGH EMERGENCY SERVICES 4439 UNSPECIFIED 02-17-2011 [place] PERIPHERAL MEDICAL VASCULAR IMAGING ASS DISEASE 1101 DERMATOPHYT 02-10-2011 [facility] MAR OSIS OF NAIL 72971 DIAB 02-10-2011 [facility] W/NEURO MANIFESTS TYPE II/UNS NOT UNCNTRL 88642 DIAB 02-10-2011 [facility] W/PERIPH CIRC D/O TYPE II/UNS NOT UNCNTRL 26506 ABDOMINAL 01-18-2011 [place] PAIN RIGHT MEDICAL LOWER IMAGING ASS QUADRANT 29404 HYPERSOMNIA 12-27-2010 [facility] WITH SLEEP DEIDRA APNEA UNSPECIFIED 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 74393 OTHER 10-26-2010 [facility] ALTERATION [facility] OF INC CONSCIOUSNE SS 9953 ALLERGY 09-13-2010 [facility] UNSPECIFIED AMBULANCE NOT SERVICE ELSEWHERE CLASSIFIED V1272 PERSONAL 08-25-2010 [facility] HISTORY OF [facility] COLONIC INC POLYPS 30106 BACKGROUND 07-28-2010 [facility] DIABETIC VISION RETINOPATHY 95164 UNSPECIFIED 07-27-2010 [facility] INFECTIVE [facility] OTITIS INC EXTERNA 74883 HYPOXEMIA 06-27-2010 [facility] 5589 OTH&UNSPEC 10-12-2009 [facility] NONINFECTIO EMERGENCY US SERVICES GASTROENTER ASSOCIATES ITIS&COLITI S 54877 PAPANICOLAO 04-16-2009 PATHOLOGY & U SMEAR OF CYTOLOGY VAGINA WITH LAB ASC-US 92721 ABDOMINAL 04-14-2009 [facility] PAIN, [place] EPIGASTRIC INTERNAL MED 17125 ASTHMA 03-19-2009 [facility] UNSPECIFIED EMERGENCY WITH SERVICES EXACERBATIO ASSOCIATES N 7393 NONALLOPATH 03-17-2009 [place] IC LESION FAMILY OF LUMBAR CHIROPRACTI REGION NEC C 5999 UNSPECIFIED 03-09-2009 [facility], DISORDER CHELSY [place] OF URETHRA&URI NARY TRACT 06260 OSTEOARTHRO 03-09-2009 Mamta DUEÑAS INVLV MX CHELSY W SITES BUT [place] SPEC GEN 00324 OTHER 02-18-2009 [facility] ABNORMAL EMERGENCY GLUCOSE SERVICES ASSOCIATES V5883 ENCOUNTER 01-25-2009 CARDIOLOGY FOR ASSOCIATES THERAPEUTIC OF DRUG ARTESIA MONITORING 4580 ORTHOSTATIC 01-14-2009 [facility] AMBULANCE HYPOTENSION SERVICE 70573 ASPHYXIA 01-14-2009 [place] [facility]ATES 7336 TIETZES 12-16-2008 [facility] DISEASE [place] INTERNAL MED 46418 STOMATITIS 12-04-2008 [facility] DUEÑAS MUCOSITIS UNSPECIFIED 9778 POISONING 11-26-2008 [facility] OTHER SPEC EMERGENCY DRUGS&MEDIC SERVICES INAL ASSOCIATES SUBSTANCES 41777 UNSPECIFIED 10-30-2008 [facility], SITE OF CHELSY W ANKLE SPRAIN AND STRAIN E8498 OTHER 10-28-[address] [place] [address] OF IMAGING OCCURRENCE ASSOCIATES E8859 FALL FROM 10-28-2008 [place] OTHER MEDICAL SLIPPING IMAGING TRIPPING OR ASSOCIATES STUMBLING 7873 FLATULENCE 10-21-2008 [place] MEDICAL ERUCTATION SERV AND GAS FOUNDATIO PAIN 59755 VOMITING 09-22-2008 [facility] ALONE EMERGENCY SERVICES ASSOCIATES 50846 VARIANTS 08-06-2008 [facility], MIGRAINE CHELSY W NEC INTRACT MIGRAINE W/[place] [address] UNS 07-24-2008 [facility], GASTRITIS&G CHELSY W ASTRODUODIT IS W/O MENTION HEMORR 24665 ABDOMINAL/P 05-25-2008 [facility] ELVIC [facility] SWELLING INC MASS/LUMP UNSPEC SITE 90182 NEPHROTIC 04-27-2008 [facility] SYND W/OTH [facility] PATHAL LES INC DZ CLASS ELSW 32115 OTHER SPEC 04-15-2008 [place] MEDICAL GASTRITIS SERV WITHOUT FOUNDATIO MENTION HEMORRHAGE 28397 ERYTHEMA 03-04-2008 [facility] DUE TO BURN [facility] OF INC ABDOMINAL WALL 50294 BLISTERS 03-04-2008 [facility]OD[facility] W/EPIDERMAL NATIONAL LOSS DUE CORPORATION BURN ABD WALL 75730 DERMATITIS 02-23-2008 [facility] DUE TO [facility]OS[facility] OTHER INC RADIATION 67932 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-2007 [facility] CARDIOLOGY OSIS COEUR D'ALENE CHRISTIAN SCIENCE NURSE CORONARY ARTERY 32251 OTHER 12-18-2007 [facility]YSPNEA [facility] RESPIRATORY ABNORMALITI ES 7931 NONSPEC 12-18-2007 [facility] FIND RAD [facility] OTH EXAM HOSP BODY STRUCT LUNG FIELD 54846 NONSPECIFIC 12-18-2007 [facility] ABNORMAL [facility] ELECTROCARD HOSP IOGRAM V142 PERSONAL 12-18-2007 [facility] HISTORY OF [facility] ALLERGY TO HOSP SULFONAMIDE S 2443 OTHER 10-04-2007 [facility] ISM PROF SERV 2810 PERNICIOUS 09-20-2007 [facility] ANEMIA [place] INTERNAL MED 7244 THORACIC/ANIL 09-17-2007 DANGELO HOFFOSACRBENJAMIN [facility]man NEURITIS/RA DICULITIS UNSPEC 7246 DISORDERS 09-17-2007 [facility] OF SACRUM ERVIN Huff[place] 0340 STREPTOCOCC 09-12-2007 [facility] AL SORE [place] THROAT INTERNAL MED 4149 UNSPECIFIED 08-30-2007 [facility] ISCHEMIC INTERNAL HEART MED DISEASE 3569 UNSPEC 08-20-2007 [facility] HEREDIT&IDI [facility] OPATHIC INC PERIPHERAL NEUROPATHY 7812 ABNORMALITY 08-20-2007 [facility], OF GAIT CHUCK 7820 DISTURBANCE 08-20-2007 [facility] OF SKIN CHUCK SENSATION 724.5 Chronic [place] back pain [facility] [id number] [facility] Allergies, Adverse Reactions, Alerts Type Drug Allergy [...] 20 AI AT 61 09 09 D ND E 0 PH CH 10 AR AE [...] M TA #3 BL 93 ET 8 CE 00 08 09 00 20 10 RI 79 MC Ac FD 78 -2 -1 .0 TE 76 KE ti IN 12 8- 0- 00 43 ND ve IR 17 20 20 AI E 66 09 09 D JR 30 0 PH 0 AR WI MG M LL #3 IA CA 93 M PS 8 F UL E VY 66 05 09 03 30 30 RI 78 AR Ac TO 58 -2 -1 .0 TE 60 NO ti RI 20 8- 0- 00 07 LD ve N 31 20 20 AI 10 33 09 09 D RI -4 1 PH CH 0 AR AR MG M D #3 W TA 93 BL 8 ET BI 00 02 08 06 30 30 [...] 20 AI LI 70 09 09 D ND N 5 PH CH 50 AR AE [...] 93 G 8 TA BL ET TR 60 05 08 02 30 30 RI 78 AR Ac IA 50 -1 -1 .0 TE 46 NO ti MT 52 8- 3- 00 61 LD ve ER 65 20 20 AI EN 70 09 09 D RI E- 1 PH CH HC AR AR TZ M D #3 W 75 93 -5 8 0 MG TA B LA 00 08 08 00 30 30 RI 79 LE Ac NT 08 -0 -1 .0 TE 42 VY ti US 82 3- 3- 00 27 ve 22 20 20 AI LI 10 03 09 09 D ZA 0 3 PH UN AR IT M /M #3 L 93 8 AL HY 00 08 08 00 90 30 RI [address] 18 -0 -1 .0 TE 42 AN ti OX 50 2- 3- 00 25 TA ve YZ 61 20 20 AI IN 50 09 09 D RA E 1 PH ME PA AR SH M M 50 #3 93 MG 8 CA P NO 00 08 08 00 10 26 RI 79 LE Ac VO 16 -0 -1 .0 TE 42 VY ti LI 91 3- 3- 00 28 ve N 83 20 20 AI LI 70 71 09 09 D ZA -3 1 PH 0 AR 10 M 0 #3 UN 93 IT 8 /M L AL ZY 00 08 08 00 30 30 RI 79 GH Ac UT 00 -0 -1 .0 TE 42 AN ti EX 24 2- 3- 00 24 TA ve A 41 20 20 AI 15 53 09 09 D RA 0 PH ME MG AR SH M TA #3 BL 93 ET 8 VY 66 05 07 02 30 30 RI 78 AR Ac TO 58 -2 -3 .0 TE 60 NO ti RI 20 8- 0- 00 07 LD ve N 31 20 20 AI 10 33 09 09 D RI -4 1 PH CH 0 AR AR MG M D #3 W TA 93 BL 8 ET LA 00 07 07 00 20 30 RI 79 AR Ac NT 08 -1 -3 .0 TE 23 NO ti US 82 8- 0- 00 51 LD ve 22 20 20 AI 10 03 09 09 D RI 0 3 PH CH UN AR AR IT M D /M #3 W L 93 8 AL GL 00 07 07 [...] #3 W TA 93 BL 8 ET FU 00 07 07 00 30 30 RI 79 AR Ac RO 37 -2 -3 .0 TE 27 NO ti SE 80 1- 0- 00 15 LD ve ND 21 20 20 AI DE 61 09 09 D RI 0 PH CH 40 AR AR M D MG #3 W 93 TA 8 BL ET BI 00 02 07 05 30 30 RI 77 AR Ac SO 37 -1 -3 .0 TE 04 NO ti UT 80 2- 0- 00 86 LD ve OL 52 20 20 AI OL 39 09 09 D RI 3 PH CH FU AR AR MA M D RA #3 W TE 93 5 8 MG TA B HY 68 06 07 01 60 20 RI [address] 46 -3 -3 .0 TE 00 NO ti OX 20 0- 0- 00 85 LD ve YZ 36 20 20 AI IN 10 09 09 D RI E 1 PH CH HC AR AR L M D 25 #3 W 93 MG 8 TA BL ET LE [...] MC 93 G 8 TA BL ET AZ 59 07 [...] CH UN AR AR IT M D /M #3 W L 93 8 AL 00 05 07 01 90 30 RI 78 AR Ac 22 -2 -0 .0 TE 60 NO ti 82 8- 2- 00 06 LD ve 05 20 20 AI 95 09 09 D RI 0 PH CH AR AR M D #3 W 93 8 NO 00 05 07 01 10 [...] NT DO HI SE AN PK A LE 00 07 07 09 30 30 RI 74 AR Ac VO 37 -1 -0 .0 TE 16 NO ti TH 81 6- 2- 00 14 LD ve YR 80 20 20 AI OX 50 08 09 D RI IN 1 PH CH E AR AR 75 M D #3 W MC 93 G 8 TA BL ET ME 60 06 07 00 30 30 EA 13 BE Ac LO 50 -2 -[address] 25 SS ti XI 52 4- 2- 00 SI 16 ON ve CA 55 20 20 DE M [address] 15 1 PH EP AR HE MG MA N CY A TA BL OF ET CY NT HI AN A LA 00 07 06 04 20 28 RI 74 AR Ac NT 08 -1 -1 .0 TE 16 NO ti US 82 6- 8- 00 17 LD ve 22 20 20 AI 10 03 08 09 D RI 0 3 PH CH UN AR AR IT M D /M #3 W L 93 8 AL NO 00 05 06 00 10 30 [...] bl AR e M #3 93 8 BI 00 02 06 03 30 30 [...] C TA #3 BL 93 ET 8 LO 00 06 06 06 30 30 [...] M D #3 W 93 8 00 05 06 00 90 30 RI 78 AR Ac 22 -2 -0 .0 TE 60 NO ti 82 8- 4- 00 06 LD ve 05 20 20 AI 95 09 09 D RI 0 PH CH AR AR M D #3 W 93 8 AZ 59 05 06 00 6. [...] #3 W TA 93 BL 8 ET 60 05 06 00 24 6 [...] 93 -5 8 0 MG TA B LE 00 07 06 08 30 30 RI 74 AR Ac VO 37 -1 -0 .0 TE 16 NO ti TH 81 6- 4- 00 14 LD ve YR 80 20 20 AI OX 50 08 09 D RI IN 1 PH CH E AR AR 75 M D #3 W MC 93 G 8 TA BL ET TR 00 05 05 00 12 30 RI 78 AR Ac AM 09 -1 -2 0. TE 40 NO ti AD 30 3- 1- 00 03 LD ve OL 05 20 20 0 AI 80 09 09 D RI HC 1 PH CH L AR AR 50 M D #3 W MG 93 8 TA BL ET IN 00 05 05 00 90 30 RI 78 AR Ac DO 37 -1 -2 .0 TE 40 NO ti ME 80 3- 1- 00 02 LD ve TH 14 20 20 AI AC 70 09 09 D RI IN 1 PH CH AR AR 50 M D #3 W MG 93 8 CA PS UL E UT 37 05 05 00 28 28 RI 78 AR Ac IL 00 -0 -2 .0 TE 25 NO ti OS 00 4- 1- 00 86 LD ve EC 45 20 20 AI 50 09 09 D RI OT 3 PH CH C AR AR 20 M D .6 #3 W 93 MG 8 TA BL ET 00 05 05 00 60 15 RI [...] 93 8 00 05 05 00 60 30 RI 78 AR Ac 59 -0 -2 .0 TE 34 NO ti 10 8- 1- 00 16 LD ve 33 20 20 AI 90 09 09 D RI 1 PH CH AR AR M D #3 W 93 8 NO 00 11 05 03 10 30 RI 75 MC Ac VO 16 -0 -2 .0 TE 72 KE ti LI 91 8- 1- 00 90 ND ve N 83 20 20 AI E 70 71 08 09 D JR -3 1 PH 0 AR WI 10 M LL 0 #3 IA UN 93 M IT 8 F /M L AL GO 52 04 05 00 40 1 [...] #3 W 93 8 CL 00 12 05 05 60 30 [...] BL 93 ET 8 LE 00 07 05 07 30 [...] AN RA 30 09 09 D TO ND 5 PH NI DE AR O M 10 #3 93 MG 8 TA BL ET BA 00 10 04 03 60 30 RI 75 OC Ac CL 17 -1 -2 .0 TE 43 ON ti OF 24 7- 3- 00 59 NE ve EN 09 20 20 AI LL 66 08 09 D 10 0 PH TATO AR HN MG M #3 TA 93 BL 8 ET DI 00 04 04 00 30 6 [...] 09 D RI TA 1 PH CH ND AR AR N- M D CA #3 W FF 93 8 50 -3 25 -4 0 00 06 04 02 30 30 RI 76 OC Ac 09 -2 -2 .0 TE 24 ON ti 37 5- 3- 00 70 NE ve 15 20 20 AI LL 55 08 09 D 6 PH TATO AR HN M #3 93 8 00 04 04 00 47 12 RI [...] 5 8 MG TA B CI 00 04 04 00 20 10 RI 77 AR Ac UT 17 -1 -2 .0 TE 97 NO ti OF 25 3- 3- 00 44 LD ve LO 31 20 20 AI XA 26 09 09 D RI CI 0 PH CH N AR AR HC M D L #3 W 50 93 0 8 MG TA B TR 50 03 [...] CH UN AR AR IT M D /M #3 W L 93 8 AL BI 00 02 03 01 30 30 RI 77 AR Ac SO 37 -1 -2 .0 TE 04 NO ti UT 80 2- 6- 00 86 LD ve OL 52 20 20 AI OL 39 09 09 D RI 3 PH CH FU AR AR MA M D RA #3 W TE 93 5 8 MG TA B CL 00 12 03 03 60 30 [...] ti LI 91 8- 2- 00 90 ND ve N 83 20 20 AI E 70 71 08 09 D JR -3 1 PH 0 AR WI 10 M LL 0 #3 IA UN 93 M IT 8 F /M L AL DE 00 12 03 02 30 30 [...] 8 BL ET 00 01 03 01 90 30 RI 76 No Ac 09 -2 -1 .0 TE 88 t ti 34 9- 2- 00 89 Av ve 35 20 20 AI ai 60 09 09 D la 1 PH bl AR e M #3 93 8 00 06 02 01 30 30 RI 76 OC Ac 09 -2 -2 .0 TE 24 ON ti 37 5- 6- 00 70 NE ve 15 20 20 AI LL 55 08 09 D 6 PH TATO AR HN M #3 93 8 BA 00 10 02 02 60 30 RI 75 OC Ac CL 17 -1 -2 .0 TE 43 ON ti OF 24 7- 6- 00 59 NE ve EN 09 20 20 AI LL 66 08 09 D 10 0 PH TATO AR HN MG M #3 TA 93 BL 8 ET BI 00 02 02 00 30 [...] #3 W BL 93 ET 8 00 01 02 01 40 20 RI 76 AR Ac 59 -1 -2 .0 TE 62 NO ti 13 0- 6- 00 87 LD ve 96 20 20 AI 80 09 09 D RI 1 PH CH AR AR M D #3 W 93 8 BU 00 02 02 00 60 15 RI 77 AR Ac TA 60 -1 -2 .0 TE 04 NO ti LB 32 2- 6- 00 85 LD ve -A 54 20 20 AI CE 42 09 09 D RI TA 1 PH CH ND AR AR N- M D CA #3 W FF 93 8 50 -3 25 -4 0 00 10 02 02 60 30 RI [...] G 8 TA BL ET CL 00 12 02 02 60 30 [...] 8 #3 93 8 DE 00 12 02 01 30 30 RI 76 AR Ac TR 00 -3 -1 .0 TE 46 NO ti OL 95 0- 2- 00 01 LD ve 19 20 20 AI LA 10 08 09 D RI 4 1 PH CH AR AR MG M D #3 W CA 93 PS 8 UL E 00 01 02 00 60 30 RI [...] 8 BL ET 00 01 02 00 90 30 RI [...] TA #3 W BL 93 ET 8 AM 00 01 01 00 30 10 RI 76 AR Ac OX 09 -1 -3 .0 TE 62 NO ti IC 33 0- 0- 00 86 LD ve IL 10 20 20 AI LI 90 09 09 D RI N 5 PH CH 50 AR AR 0 M D MG #3 W 93 CA 8 PS UL E ME 00 01 01 00 90 30 RI 76 HAYDEN Ac TO 09 -0 -3 .0 TE 67 SC ti CL 32 7- 0- 00 19 H ve OP 20 20 20 AI AN RA 30 09 09 D TO ND 5 PH NI DE AR O M 10 #3 93 MG 8 TA BL ET NO 00 11 01 01 10 30 RI 75 MC Ac VO 16 -0 -3 .0 TE 72 KE ti LI 91 8- 0- 00 90 ND ve N 83 20 20 AI E 70 71 08 09 D JR -3 1 PH 0 AR WI 10 M LL 0 #3 IA UN 93 M IT 8 F /M L AL TI 55 02 01 00 60 30 RI 76 OC Ac ZA 11 -0 -3 .0 TE 75 ON ti NI 10 8- 0- 00 52 NE ve DI 17 20 20 AI LL NE 91 08 09 D 5 PH TATO HC AR HN L M 2 #3 MG 93 8 TA BL ET CL 00 12 01 01 60 30 RI 76 AR Ac ON -3 -3 .0 TE 45 NO ti [...] #3 W 93 8 BA 00 10 01 01 60 30 RI 75 OC Ac CL 17 -1 -1 .0 TE 43 ON ti OF 24 7- 5- 00 59 NE ve EN 09 20 20 AI LL 66 08 09 D 10 0 PH TATO AR HN MG M #3 TA 93 BL 8 ET CL 00 12 01 00 60 30 RI 76 AR Ac ON 09 -3 -1 .0 TE 45 NO ti AZ 30 0- 5- 00 30 LD ve EP 83 20 20 AI AM 20 08 09 D RI 1 PH CH 0. AR AR 5 M D MG #3 W 93 TA 8 BL ET 00 10 01 01 60 30 [...] CY 93 8 #3 93 8 00 06 01 00 30 30 RI [...] MC 93 G 8 TA BL ET BI 00 03 01 03 30 30 RI 72 MC Ac SO 37 -0 -0 .0 TE 32 KE ti UT 80 6- 1- 00 28 ND ve OL 52 20 20 AI E OL 39 08 09 D JR 3 PH FU AR WI MA M LL RA #3 IA TE 93 M 5 8 F MG TA B GL 00 07 01 04 30 30 RI 74 AR Ac YB 09 -1 -0 .0 TE 16 NO ti UR 39 6- 1- 00 15 LD ve ID 36 20 20 AI E 41 08 09 D RI 5 0 PH CH MG AR AR M D TA #3 W BL 93 ET 8 00 12 12 00 15 15 RI [...] TA 8 BL ET LE 00 07 12 04 30 30 RI 74 AR Ac VO 37 -1 -1 .0 TE 16 NO ti TH 81 6- 8- 00 14 LD ve YR 80 20 20 AI OX 50 08 08 D RI IN 1 PH CH E AR AR 75 M D #3 W MC 93 G 8 TA BL ET 00 11 12 00 90 30 RI 76 No Ac 09 -2 -1 .0 TE 04 t ti 31 4- 8- 00 06 Av ve 04 20 20 AI ai 30 08 08 D la 1 PH bl AR e M #3 93 8 NA 00 12 12 00 60 30 [...] NI AR O M #3 93 8 GL 00 07 11 03 30 30 [...] TA 8 BL ET LE 00 07 11 03 30 30 RI 74 AR Ac VO 37 -1 -2 .0 TE 16 NO ti TH 81 6- 0- 00 14 LD ve YR 80 20 20 AI OX 50 08 08 D RI IN 1 PH CH E AR AR 75 M D #3 W MC 93 G 8 TA BL ET ME 00 11 11 00 [...] CH UN AR AR IT M D /M #3 W L 93 8 AL NO 00 11 11 00 10 30 RI 75 MC Ac VO 16 -0 -2 .0 TE 72 KE ti LI 91 8- 0- 00 90 ND ve N 83 20 20 AI E [...] TA 8 BL ET BI 00 03 11 02 30 30 RI 72 MC Ac SO 37 -0 -2 .0 TE 32 KE ti UT 80 6- 0- 00 28 ND ve OL 52 20 20 AI E [...] 93 TA 8 BL ET 00 06 10 02 30 30 RI 73 No Ac 09 -2 -2 .0 TE 90 t ti 37 5- 3- 00 75 Av ve 15 20 20 AI ai 55 08 08 D la 6 PH bl AR e M #3 93 8 00 10 10 00 60 30 RI 75 OC Ac 04 -1 -2 .0 TE 43 ON ti 50 7- 3- 00 58 NE ve 64 20 20 AI LL 06 08 08 D 5 PH TATO AR HN M #3 93 8 BA 00 10 10 00 60 30 RI 75 OC Ac CL 17 -1 -2 .0 TE 43 ON ti OF 24 7- 3- 00 59 NE ve EN 09 20 20 AI LL 66 08 08 D 10 0 PH TATO AR HN MG M #3 TA 93 BL 8 ET GL 00 07 10 02 30 30 RI 74 AR Ac YB 09 -1 -0 .0 TE 16 NO ti UR 39 6- 9- 00 15 LD ve ID 36 20 20 AI E 41 08 08 D RI 5 0 PH CH MG AR AR M D TA #3 W BL 93 ET 8 CI 00 09 10 00 20 10 RI 75 AR Ac UT 17 -2 -0 .0 TE 17 NO ti OF 25 9- 9- 00 31 LD ve LO 31 20 20 AI XA 26 08 08 D RI CI 0 PH CH N AR AR HC M D L #3 W 50 93 0 8 MG TA B 00 08 10 00 90 30 RI [...] 08 D RI TA 1 PH CH ND AR AR N- M D CA #3 W FF 93 8 50 -3 25 -4 0 LE 00 07 10 02 30 30 [...] W 93 MG 8 TA BL ET UT 00 09 09 00 40 20 RI 74 AR Ac OC 09 -1 -2 .0 TE 92 NO ti HL 39 1- 6- 00 87 LD ve OR 65 20 20 AI PE 20 08 08 D RI RA 1 PH CH ZI AR AR NE M D #3 W 10 93 8 MG TA B DE 00 07 09 01 30 30 RI 74 AR Ac TR 00 -2 -1 .0 TE 23 NO ti OL 95 2- 1- 00 61 LD ve 19 20 20 AI LA 10 08 08 D RI 4 1 PH CH AR AR MG M D #3 W CA 93 PS 8 UL E LA 00 07 09 01 20 28 RI 74 AR Ac NT 08 -1 -1 .0 TE 16 NO ti US 82 6- 1- 00 17 LD ve 22 20 20 AI 10 03 08 08 D RI 0 3 PH CH UN AR AR IT M D /M #3 W L 93 8 AL HY 68 06 09 00 12 30 [...] TA #3 W BL 93 ET 8 AM 00 09 09 00 30 10 RI 74 AR Ac OX 09 -0 -1 .0 TE 83 NO ti IC 33 4- 1- 00 11 LD ve IL 10 20 20 AI LI 90 08 08 D RI N 5 PH CH 50 AR AR 0 M D MG #3 W 93 CA 8 PS UL E 00 06 09 01 30 [...] ti LI 91 1- 1- 00 61 ND ve N 83 20 20 AI E [...] 4 93 8 MG DO SE PK LE 00 07 09 01 30 30 [...] ti LI 91 1- 8- 00 61 ND ve N 83 20 20 AI E 70 71 07 08 D JR -3 1 PH 0 AR WI 10 M LL 0 #3 IA UN 93 M IT 8 F /M L AL CL 00 06 08 02 60 30 RI 73 AR Ac ON 09 -0 -2 .0 TE 62 NO ti AZ 30 5- 8- 00 67 LD ve EP 83 20 20 AI AM 20 08 08 D RI 1 PH CH 0. AR AR 5 M D MG #3 W 93 TA 8 BL ET 00 06 08 01 30 30 RI [...] 8 BL ET 00 07 08 00 30 30 RI 74 No Ac 09 -2 -0 .0 TE 28 t ti 37 4- 1- 00 08 Av ve 24 20 20 AI ai 20 08 08 D la 6 PH bl AR e M #3 93 8 HY 00 07 08 00 12 30 RI [address] 60 -2 -0 0. TE 28 t ti OX 33 4- 1- 00 11 Av ve YZ 96 20 20 0 AI ai IN 92 08 08 D la E 1 PH bl HC AR e L M 50 #3 93 MG 8 TA BL ET GL 00 07 08 00 30 30 [...] W CA 93 PS 8 UL E TR 50 07 08 00 30 30 RI 74 No Ac AZ 11 -2 -0 .0 TE 28 t ti OD 10 4- 1- 00 12 Av ve ON 43 20 20 AI ai E 40 08 08 D la 10 1 PH bl 0 AR e MG M #3 TA 93 BL 8 ET LA 00 07 08 00 20 28 RI 74 AR Ac NT 08 -1 -0 .0 TE 16 NO ti US 82 6- 1- 00 17 LD ve 22 20 20 AI 10 03 08 08 D RI 0 3 PH CH UN AR AR IT M D /M #3 W L 93 8 AL 00 07 08 00 90 30 RI 74 No Ac 09 -2 -0 .0 TE 28 t ti 31 4- 1- 00 10 Av ve 04 20 20 AI ai 30 08 08 D la 1 PH bl AR e M #3 93 8 CL 00 06 07 01 60 [...] ti LI 91 1- 7- 00 61 ND ve N 83 20 20 AI E 70 71 07 08 D JR -3 1 PH 0 AR WI 10 M LL 0 #3 IA UN 93 M IT 8 F /M L AL AZ 59 06 07 00 6. 5 RI 73 AR Ac IT 76 -1 -0 00 TE 79 NO ti HR 23 9- 3- 0 66 LD ve OM 06 20 20 AI YC 00 08 08 D RI IN 1 PH CH AR AR 25 M D 0 #3 W MG 93 8 TA BL ET TR 50 06 07 00 30 30 RI 73 No Ac AZ 11 -2 -0 .0 TE 90 t ti OD 10 6- 3- 00 71 Av ve ON 43 20 20 AI ai E 40 08 08 D la 10 1 PH bl 0 AR e MG M #3 TA 93 BL 8 ET HY 00 06 07 00 12 30 [...] bl AR e M #3 93 8 49 04 07 02 18 30 PU 18 No Ac 50 -2 -0 0. LM 03 t ti 20 1- 3- 00 O 39 Av ve 67 20 20 0 DO 9 ai 26 08 08 SE la 0 bl PH e AR MA CY RI 50 06 07 00 30 30 [...] MG #3 93 TA 8 BL ET LO 00 06 07 00 30 30 RI 73 AR Ac RA 78 -1 -0 .0 TE 79 NO ti TA 15 9- 3- 00 67 LD ve DI 07 20 20 AI NE 70 08 08 D RI 1 PH CH 10 AR AR M D MG #3 W 93 TA 8 BL ET UT 00 06 07 00 40 10 RI 73 AR Ac OM 60 -1 -0 .0 TE 79 NO ti ET 35 9- 3- 00 68 LD ve GIBBS 43 20 20 AI ZI 82 08 08 D RI NE 1 PH CH AR AR 25 M D #3 W MG 93 8 TA BL ET CL 00 06 06 00 60 30 [...] ti TH 81 4- 2- 00 59 ND ve YR 80 20 20 AI E OX 50 07 08 D JR IN 1 PH E AR WI 75 M LL #3 IA MC 93 M G 8 F TA BL ET IO 00 06 06 00 [...] C TA #3 BL 93 ET 8 HY 00 05 06 00 12 [address] 18 -2 -0 0. TE 44 t ti OX 50 2- 5- 00 36 Av ve YZ 61 20 20 0 AI ai IN 50 08 08 D la E 1 PH bl PA AR e M M 50 #3 93 MG 8 CA P CE 00 05 06 00 20 10 RI 73 AR Ac FD 09 -2 -0 .0 TE 49 NO ti IN 33 7- 5- 00 30 LD ve IR 16 20 20 AI 00 08 08 D RI 30 6 PH CH 0 AR AR MG M D #3 W CA 93 PS 8 UL E 49 04 06 01 18 30 PU 18 No Ac 50 -2 -0 0. LM 03 t ti 20 1- 5- 00 O 39 Av ve 67 20 20 0 DO 9 ai 26 08 08 SE la 0 bl PH e AR MA CY 60 05 06 00 24 6 RI [...] M TA #3 BL 93 ET 8 17 05 06 00 17 16 RI 73 AR Ac 27 -2 -0 .0 TE 49 NO ti 00 7- 5- 00 31 LD ve 72 20 20 AI 10 08 08 D RI 1 PH CH AR AR M D #3 W 93 8 TE 00 05 06 00 20 3 RI 73 CL Ac RC 59 -2 -0 .0 TE 41 AR ti ON 13 1- 5- 00 71 KE ve AZ 19 20 20 AI OL 75 08 08 D DE E 2 PH RE 0. AR K 8% M J #3 CR 93 EA 8 M ME 00 05 06 00 21 6 RI 73 AR Ac TH 60 -2 -0 .0 TE 52 NO ti YL 34 9- 5- 00 01 LD ve UT 59 20 20 AI ED 31 08 08 D RI NI 5 PH CH SO AR AR LO M D NE #3 W 4 93 8 MG DO SE PK 00 05 06 00 90 30 RI 73 No Ac 09 -2 -0 .0 TE 44 t ti 31 2- 5- 00 35 Av ve 04 20 20 AI ai 30 08 08 D la 1 PH bl AR e M #3 93 8 CL 00 05 05 00 60 30 RI 73 No Ac ON 09 -1 -2 .0 TE 27 t ti AZ 30 0- 2- 00 45 Av ve EP 83 20 20 AI ai AM 20 08 08 D la 1 PH bl 0. AR e 5 M MG #3 93 TA 8 BL ET BI 00 03 05 01 30 30 RI 72 No Ac SO 37 -0 -0 .0 TE 32 t ti UT 80 6- 8- 00 28 Av ve OL 52 20 20 AI ai OL 39 08 08 D la 3 PH bl FU AR e MA M RA #3 TE 93 5 8 MG TA B CY 00 03 05 02 1. 7 CL 16 No Ac AN 51 -2 -0 00 IN 78 t ti OC 70 8- 8- 0 IC 79 Av ve OB 03 20 20 ai AL 12 08 08 PH la AM 5 AR bl IN MA e CY 1, 00 0 MC G/ ML LE 00 10 05 04 30 30 RI 70 No Ac VO 37 -2 -0 .0 TE 29 t ti TH 81 4- 8- 00 59 Av ve YR 80 20 20 AI ai OX 50 07 08 D la IN 1 PH bl E AR e 75 M #3 MC 93 G 8 TA BL ET FL 00 05 05 00 30 30 WA 69 No Ac UO 09 -0 -0 .0 L- 70 t ti XE 37 1- 8- 00 MA 26 Av ve TI 19 20 20 RT 3 ai NE 85 08 08 la 6 PH bl HC AR e L MA 40 CY MG #5 91 CA PS UL E GL 00 03 05 01 30 30 RI 72 No Ac YB 09 -0 -0 .0 TE 34 t ti UR 39 7- 8- 00 51 Av ve ID 36 20 20 AI ai E 41 08 08 D la 5 0 PH bl MG AR e M TA #3 BL 93 ET 8 NO 00 12 05 02 10 30 RI 70 No Ac VO 16 -0 -0 .0 TE 85 t ti LI 91 1- 8- 00 61 Av ve N 83 20 20 AI ai 70 71 07 08 D la -3 1 PH bl 0 AR e 10 M 0 #3 UN 93 IT 8 /M L AL 00 05 05 00 30 30 WA 69 No Ac 55 -0 -0 .0 L- 70 t ti 50 1- 8- 00 MA 26 Av ve 87 20 20 RT 5 ai 70 08 08 la 2 PH bl AR e MA CY #5 91 50 05 05 00 12 30 WA 69 No Ac 11 -0 -0 0. L- 70 t ti 10 1- 8- 00 MA 26 Av ve 30 20 20 0 RT 4 ai 90 08 08 la 1 PH bl AR e MA CY #5 91 49 04 05 00 18 30 PU 18 No Ac 50 -2 -0 0. LM 03 t ti 20 1- 8- 00 O 39 Av ve 67 20 20 0 DO 9 ai 26 08 08 SE la 0 bl PH e AR MA CY RI 50 05 05 00 30 30 WA 69 No Ac SP 45 -0 -0 .0 L- 70 t ti ER 80 1- 8- 00 MA 26 Av ve DA 30 20 20 RT 7 ai L 00 08 08 la 1 6 PH bl MG AR e MA TA CY BL ET #5 91 CY 00 03 04 01 1. 7 CL 16 No Ac AN 51 -2 -2 00 IN 78 t ti OC 70 8- 4- 0 IC 79 Av ve OB 03 20 20 ai AL 12 08 08 PH la AM 5 AR bl IN MA e CY 1, 00 0 MC G/ ML FL 00 04 04 00 30 30 [...] MG #3 93 TA 8 BL ET HY 00 04 04 00 12 30 [...] 25 93 0 8 MG TA B RI 50 04 04 00 30 30 RI 72 No Ac SP 45 -0 -2 .0 TE 77 t ti ER 80 5- 4- 00 31 Av ve DA 30 20 20 AI ai L 00 08 08 D la 1 6 PH bl MG AR e M TA #3 BL 93 ET 8 CY 00 03 04 00 1. 7 [...] TE 93 5 8 MG TA B LE 00 10 04 03 30 30 [...] IT 8 /M L AL FL 00 02 04 00 30 30 RI 72 No Ac UO 09 -2 -0 .0 TE 31 t ti XE 37 9- 7- 00 18 Av ve TI 19 20 20 AI ai NE 85 08 08 D la 6 PH bl HC AR e L M 40 #3 93 MG 8 CA PS UL E TI 55 02 04 00 60 30 RI 72 No Ac ZA 11 -0 -0 .0 TE 17 t ti NI 10 8- 7- 00 71 Av ve DI 17 20 20 AI ai NE 91 08 08 D la 5 PH bl HC AR e L M 2 #3 MG 93 8 TA BL ET GL 00 03 04 00 30 30 RI 72 No Ac YB 09 -0 -0 .0 TE 34 t ti UR 39 7- 7- 00 51 Av ve ID 36 20 20 AI ai E 41 08 08 D la 5 0 PH bl MG AR e M TA #3 BL 93 ET 8 RI 50 03 04 00 30 30 RI 72 No Ac SP 45 -0 -0 .0 TE 31 t ti ER 80 5- 7- 00 20 Av ve DA 33 20 20 AI ai L 00 08 08 D la 3 6 PH bl MG AR e M TA #3 BL 93 ET 8 LI 00 10 03 02 30 30 [...] MG #3 93 TA 8 BL ET 00 01 03 00 30 5 RI [...] #3 93 CA 8 PS UL E LE 00 10 03 02 30 30 RI 70 No Ac VO 37 -2 -2 .0 TE 29 t ti TH 81 4- 4- 00 59 Av ve YR 80 20 20 AI ai OX 50 07 08 D la IN 1 PH bl E AR e 75 M #3 MC 93 G 8 TA BL ET SK 60 01 03 00 90 30 RI 71 No Ac EL 79 -1 -2 .0 TE 46 t ti AX 30 1- 4- 00 16 Av ve IN 13 20 20 AI ai 60 08 08 D la 80 1 PH bl 0 AR e MG M #3 TA 93 BL 8 ET LA 00 01 03 00 20 30 RI 71 No Ac NT 08 -1 -2 .0 TE 46 t ti US 82 1- 4- 00 17 Av ve 22 20 20 AI ai 10 03 08 08 D la 0 3 PH bl UN AR e IT M /M #3 L 93 8 AL ET 60 01 03 00 60 30 RI 71 No Ac OD 50 -1 -2 .0 TE 46 t ti OL 50 1- 4- 00 15 Av ve AC 10 20 20 AI ai 20 08 08 D la 50 1 PH bl 0 AR e MG M #3 TA 93 BL 8 ET Immunization Name Date Rout CVX Reac Dose Comm Prov Is Faci e tion ent ider Refu lity Give sed n HEPA 03-1 104 SOUR No [place] SARA 6-20 [place] MEDI S A 15 JOSE D [facility] & B [facility] SERV VACC [facility] INE FOUN HEPA DATI -HEP ON B ADUL T IM HEPA 10-1 104 SOUR No [place] SARA 7-20 [place] MEDI S A 14 JOSE D [facility] & B [place] SERV VACC ACH INE FOUN HEPA DATI -HEP ON B ADUL T IM Vital Signs 04-03-2013 21:27 Name Value [...] Order Detail nces retati t Range on Glucose capillary blood glucometer (04-03-2017 10:10) Glucose = 150 70-110 complet 017 mg/dl ed capilla 10:[address] Drugs identified in Urine by Screen method (01-09-2017 02:27) Ampheta NEGATIV <1000 complet mine 017 E ed [Presen 02:27 ce] in Urine by Screen method 11-Hydr NEGATIV <50 complet oxy 017 E ed delta-9 02:27 tetrahy drocann abinol [Presen ce] in Unspeci fied specime n Urinalysis dipstick W Reflex Microscopic panel in Urine (01-09-2017 02:27) Bacteri 2+ O complet a 017 ed [Presen 02:27 ce] in Urine sedimen t by Light microsc opy Erythro OCC 0 complet cytes 017 ed [Presen 02:27 ce] in Urine sedimen t by Light microsc opy Epithel TNTC 0#/hp complet ial 017 f - ed cells.s 02:27 5#/hp quamous f [Presen ce] in Urine sedimen t by Microsc opy high power field Leukocy 20-50 O complet meagan 017 wbc/hpf ed [#/volu 02:27 me] in Urine Yeast 3+ NONE complet [Presen 017 ed ce] in 02:27 Urine sedimen t by Light microsc opy Urinalysis dipstick W Reflex Microscopic panel in Urine (01-09-2017 02:27) Appeara SL CLEAR complet nce of 017 CLOUDY ed Urine 02:27 Bilirub NEGATIV NEG complet in 017 E ed [Presen 02:27 ce] in Urine by Test strip Erythro NEGATIV NEG complet cytes 017 E ed [Presen 02:27 ce] in Urine Color YELLOW YELLOW complet of 017 ed Urine 02:27 Ketones NEGATIV NEG complet 017 E ed [Presen 02:27 ce] in Urine by Automat ed test strip Mucus 2+ NEG Abnorma complet [Presen 017 l ed ce] in 02:27 Urine sedimen t by Light microsc opy Nitrite NEGATIV NEG complet 017 E ed [Presen 02:27 ce] in Urine by Test strip Urobili 0.2 NEG complet nogen 017 ed [Presen 02:27 ce] in Urine by Test strip COMPREHENSIVE METABOLIC PANEL (04-03-2013 18:10) Glucose 336 74-106 complet 013 mg/dL ed Bld-mCn 18:10 c BUN 04-03- 10 7-18 complet Bld-mCn 013 mg/dL ed c 18:10 Creat 1.0 0.6-1.0 complet SerPl-m 013 mg/dL ed Cnc 18:10 ESTIMAT 127 50-200 complet ED 013 ML/MIN ed CREATIN 18:10 INE CLEARAN CE GFR 58 59- complet (ESTIMA 013 ML/MIN ed ML) 18:10 Sodium 138 136-145 complet SerPl-s 013 mmoL/L ed Cnc 18:10 Potassi 3.5 3.5-5.1 complet um 013 mmoL/L ed SerPl-s 18:10 Cnc Chlorid 04-03- 101 98-107 complet e 013 mmoL/L ed SerPl-s 18:10 Cnc CO2 04-03- 22 21.0-32 complet SerPl-s 013 mmoL/L .0 ed Cnc 18:10 Calcium 9.0 8.5-10. complet 013 mg/dL 1 ed SerPl-m 18:10 Cnc Prot 10-10-2 7.3 6.4-8.2 complet SerPl-m 013 gm/dL ed Cnc 18:10 Albumin 10-10-2 3.6 3.4-5.0 complet 013 gm/dL ed SerPl-m 18:10 Cnc Globuli 10-10-2 3.7 1.3-3.2 complet n 013 gm/dL ed Ser-mCn 18:10 c Albumin 1010-2 1.0 UNK 1.1-1.8 complet /Glob 013 ed SerPl-m 18:10 Rto Bilirub 1010-2 0.3 0.2-1.0 complet 013 mg/dL ed SerPl-m 18:10 Cnc AST 1010-2 35 U/L 15-37 complet SerPl-c 013 ed Cnc 18:10 ALT 1010-2 81 U/L 30-65 complet SerPl-c 013 ed Cnc 18:10 ALP 1010-2 147 U/L 50-136 complet SerPl-c 013 ed Cnc 18:10 LIPASE (04-03-2013 18:10) LIPASE 1010-2 53 U/L 73-393 complet 013 ed 18:10 CBC with AUTO DIFF (04-03-2013 18:10) WBC # 10-10-2 8.4 4.8-10. complet Bld 013 K/MM3 8 ed Auto 18:10 RBC # 10-10-2 4.82 4.2-5.4 complet Bld 013 M/mm3 ed Auto 18:10 Hgb 10-10-2 14.0 12.2-16 complet Bld-mCn 013 g/dL .2 ed c 18:10 Hct Fr 1010-2 42.4 % 37.0-47 complet Bld 013 .0 ed 18:10 MCV RBC 10-10-2 87.9 fl 82.2-97 complet 013 .8 ed 18:10 MCH RBC 10-10-2 29.1 pg 27-31.2 complet Qn 013 ed Auto 18:10 MEAN 10-10-2 33.1 31.8-35 complet CORPUSC 013 g/dl .4 ed ULAR 18:10 HGB CONC RDW RBC 10-10-2 14.9 % 11.5-17 complet Auto 013 .5 ed 18:10 Platele 1010-2 282 142-424 complet t Bld 013 K/mm3 [...] Procedure DOS Code Location Performer Comment ECG [id number] [facility] ECG INC INC W/LEAST 12 LDS TRCG ONLY W/O I&R THERAPEUT 43605 [facility] IC [facility] INJECTION INC INC IV PUSH EACH NEW DRUG ECG 69055 [facility] ECG INC INC W/LEAST 12 LDS TRCG ONLY W/O I&R ECG 25069 [facility] ECG INC INC W/LEAST 12 LDS TRCG ONLY W/O I&R BASIC 68812 [facility] METABOLIC [facility] PANEL INC INC CALCIUM TOTAL COLLECTIO 00324 [facility] N VENOUS [facility] BLOOD INC INC VENIPUNCT URE ECHO 23819 [facility] TTHRC R-T [facility] 2D INC INC W/WOM-MOD E COMPL SPEC&COLR D ECG 07122 [facility] ECG INC INC W/LEAST 12 LDS TRCG ONLY W/O I&R RADIOLOGI 06206 [facility] C [facility] EXAMINATI INC INC ON PELVIS 1/2 VIEWS URNLS DIP 30582 [facility] STICK/TAB INC INC LET REAGENT AUTO MICROSCOP Y RADEX 08747 [facility] NASAL [facility] BONES INC INC COMPLETE MINIMUM 3 VIEWS CULTURE 04017 [facility] BACTERIAL [facility] INC INC QUANTTATI VE COLONY COUNT URINE RADIOLOGI 94097 [facility] C [facility] EXAMINATI INC INC ON KNEE 3 VIEWS DRUG TEST 52651 [facility] PRSMV [facility] QUAL DIR INC INC OPTICAL OBS PER DAY THERAPEUT 23494 [facility] IC [facility] [place]JECTION [place] [address] [facility] INFUSION [facility] THERAPY/P INC INC ROPHYLAXI S /DX 1ST TO 1 HR CULTURE 62724 [facility] BACTERIAL [facility] INC INC QUANTTATI VE COLONY COUNT URINE COMPREHEN 53941 [facility] SIVE [facility] METABOLIC INC INC PANEL URNLS DIP 76785 [facility] STICK/TAB INC INC LET REAGENT AUTO MICROSCOP Y ECG 72179 [facility]OUTINE [facility] ECG INC INC W/LEAST 12 LDS TRCG ONLY W/O I&R CREATINE 36387 [facility] KINASE [facility] TOTAL INC INC GLUC BLD 09325 [facility] GLUC MNTR [facility] DEV INC [place] [address] [facility] TROPONIN [facility] QUANTITAT INC INC ANNABELLA RADIOLOGI 13201 [facility] C [facility] EXAMINATI INC INC ON CHEST SINGLE VIEW FRONTAL RHYTHM 78643 [facility] ECG 1-3 [facility] LEADS INC INC TRACING ONLY W/O I&R CREATINE 71313 [facility] KINASE MB [facility] COUNTY FRACTION INC HEALTH ONLY CENTER BLOOD 95300 [facility] COUNT [facility] COMPLETE INC INC AUTO&AUTO DIFRNTL WBC BLOOD 51166 [facility] COUNT [facility] COMPLETE INC INC AUTO&AUTO DIFRNTL WBC THERAPEUT 71308 [facility] IC [facility] PROPHYLAC INC INC TIC/DX INJECTION SUBQ/[place] [address] [facility] AMYLASE 7 [place] [address] [facility] TROPONIN [facility] [place] [address] [facility] LIPASE [facility] INC INC URNLS DIP 40131 [facility] STICK/TAB INC INC LET REAGENT AUTO MICROSCOP Y COMPREHEN 12435 [facility] SIVE [facility] METABOLIC INC INC PANEL CULTURE 28006 [facility] BACTERIAL [facility] INC INC QUANTTATI VE COLONY COUNT URINE RADEX ABD 54061 [facility] COMPL [facility] AQT ABD INC INC W/S/E/D VIEWS 1 VIEW CH SUSCEPTIB 10588 [facility] LTY STDY [facility] ANTIMICRB INC INC IAL MICRO/AGA R DILUTJ CULTURE 22182 [facility] BCT [facility] ISOL&PRSM INC INC PTV ID ISOLATE EA URINE ECG 96339 [facility]OUTINE [facility] ECG INC INC W/LEAST 12 LDS TRCG ONLY W/O I&R DEMO&/POLLY 50477 [facility] L OF PT 7 [facility] UTILIZ [facility] AERSL CO GEN/NEB/I NHLR/IP NITRIC 03484 [facility] OXIDE 7 [facility] GAS CO DETERMINA TION BRNCDILAT 11108 [facility] RSPSE 7 [facility] SPMTRY OF [facility] PRE&POST- CO BRNCDILAT ADMN PERCUTANE 93673 [facility] OUS TESTS 7 [facility] W/ALLERGE CO ALVARADO EXTRACTS THERAPEUT 00726 [facility] IC [facility] INJECTION INC INC IV PUSH EACH NEW DRUG THER 18144 [facility] PROPH/DX [facility] NJX EA INC INC SEQL IV PUSH SBST/DRUG FAC SUSCEPTIB 16517 [facility] LTY STDY [facility] ANTIMICRB INC INC IAL MICRO/AGA R DILUTJ CULTURE 49130 [facility] BACTERIAL [facility] INC INC QUANTTATI VE COLONY COUNT URINE INJECTION J2405 [facility] ONDANSETR INC INC ON HCL PER 1 MG COMPREHEN 33085 [facility] SIVE [facility] [place] [address] [facility] TROPONIN [facility] QUANTITAT INC INC ANNABELLA ECG 20620 [facility]INE [facility] ECG INC INC W/LEAST 12 LDS TRCG ONLY W/O I&R CREATINE 20253 [facility] KINASE [facility] TOTAL INC INC URNLS DIP 48755 [facility] STICK/TAB INC INC LET REAGENT AUTO MICROSCOP Y RADIOLOGI 98334 [facility] C EXAM [facility] CHEST 2 INC INC VIEWS FRONTAL&L ATERAL CREATINE 26302 [facility] KINASE MB [facility] FRACTION INC INC ONLY RHYTHM 58209 [facility] ECG 1-3 7 [facility] LEADS INC INC TRACING ONLY W/O I&R THER 05495 [facility] PROPH/DX 7 [facility] NJX IV INC INC PUSH SINGLE/1S T SBST/DRUG BLOOD 67707 [facility] COUNT 7 [facility] COMPLETE INC INC AUTO&AUTO DIFRNTL WBC CULTURE 62733 [facility] BCT 7 [facility] ISOL&PRSM INC INC PTV ID ISOLATE EA URINE CULTURE 61196 [facility] BACTERIAL 7 [facility] INC INC QUANTTATI VE COLONY COUNT URINE BLOOD 46837 [facility] COUNT 7 [facility] COMPLETE INC INC AUTO&[place] [address] [facility] FREE 7 [facility] [place] [address] [facility] THYROID 7 [facility] STIMULATI [place] [address] [facility] THYROID 7 [facility] [place] [address] [facility] FREE 7 [facility] [place] [address] [facility] TRIIODOTH 7 [facility] YRONINE INC INC T3 FREE COLLECTIO 46876 [facility] N VENOUS 7 [facility] BLOOD INC INC VENIPUNCT URE OCCUPATIO 01213 [facility] NAL 7 [facility] THERAPY INC INC EVAL LOW COMPLEX 30 MINS APPL 47675 [facility] MODALITY 7 [facility] 1/> AREAS INC INC IONTOPHOR ESIS EA 15 MIN THERAPEUT 06773 [facility] IC PX 1/> 7 [facility] AREAS INC INC EACH 15 MIN EXERCISES HOSPITAL [id number] [facility] H[facility]PITALS ASSESS & MGMT PT HOSPITAL G0463 [facility] OUTPATIEN 7 [facility] T CLIN INC INC VISIT ASSESS & MGMT PT IAADIADOO 09449 [facility] INFLUENZA INC INC IAADIADOO 33021 [facility] STREPTOCO INC INC CCUS GROUP A INJ J0702 [facility] BETAMETHA 7 PHYSICIAN DELMAR Oleary GROUP ACETATE & PHOSPHATE 3 MG RADIOLOGI 89150 [facility] [place] SCALF C EXAM 7 RADIOLOGY CHEST 2 VIEWS FRONTAL&[place] [address] [facility] CERVICAL 7 [facility] SPINE W/[place] [address] [facility] HEAD/BRAI 7 [facility] N W/O INC INC CONTRAST MATERIAL GROUND A0425 [facility] MILEAGE 7 AMBULANCE AMBULANCE PER SERVICE SERVICE STATUTE MILE AMBULANCE A0429 [facility] SERVICE 7 AMBULANCE AMBULANCE BLS SERVICE SERVICE EMERGENCY TRANSPORT RADEX 15390 [place] 7 MEDICAL COMPLETE IMAGING MINIMUM [address] [place] [address] [facility] ABDOMEN & 7 [facility] PELVIS INC INC W/CONTRAS T MATERIAL URNLS DIP 04845 [facility] 7 [facility] STICK/TAB INC INC [place] [address] [facility] LIPASE 7 [facility] [place] [address] [facility] AMYLASE 7 [facility] INC INC BLOOD 16842 [facility] COUNT 7 [facility] COMPLETE INC INC AUTO&AUTO DIFRNTL WBC CULTURE 25679 [facility] BACTERIAL 7 [facility] INC INC QUANTTATI VE COLONY COUNT URINE INJECTION J2405 [facility] 7 [facility] ONDANSETR INC INC ON HCL PER 1 MG COMPREHEN 71601 [facility] SIVE 7 [facility] METABOLIC INC INC PANEL SUSCEPTIB 72174 [facility] LTY STDY 7 [facility] ANTIMICRB INC INC IAL MICRO/AGA R DILUTJ THERAPEUT 87671 BRANDON TAYLOR IC 7 [facility] INJECTION INC [place] [address] BRANDON TAYLOR INFUSION 7 [facility] THERAPY/P INC INC ROPHYLAXI S /DX 1ST TO 1 HR LOCM Q9967 BRANDON RABAGOON [phone] 7 [facility] MG/ML INC INC IODINE CONCENTRA TION PER ML CULTURE 30424 BRANDONKATI TAYLOR BCT 7 [facility] ISOL&PRSM INC INC PTV ID ISOLATE EA URINE CULTURE 89290 [facility] RABAGOON BCT 7 [facility] ISOL&PRSM INC INC PTV ID ISOLATE EA URINE SUSCEPTIB 32008 BR[facility] TAY[facility] LTY STDY 7 [facility] ANTIMICRB INC INC IAL MICRO/AGA R DILUTJ CULTURE 23855 BRANDON BRANDON BACTERIAL 7 [facility] INC INC QUANTTATI VE COLONY COUNT URINE INJECTION J2405 [facility] RABAGOON 7 [facility] ONDANSETR INC INC ON HCL PER 1 MG ALBUTEROL J7613 YOUR YOUR INHAL 7 PHARMACY PHARMACY NON-CP [facility] PROD THRU DME U DOSE 1 MG ADMN SET A7003 YOUR YOUR SM VOL 7 PHARMACY PHARMACY NONFILTR [facility] PNEUMAT NEBULIZR DISPBL THERAPEUT 21201 [facility] T[facility] IC 7 [facility] PROPHYLAC INC INC TIC/DX INJECTION SUBQ/IM PHRM Q0513 YOUR YOUR DISPENSIN 7 PHARMACY PHARMACY G FEE [facility] INHALATIO N RX; PER 30 DAYS IADNA-DNA 69061 BR[facility] TAYL[facility] /RNA GI 7 [facility] PTHGN INC INC MULTIPLEX PROBE TQ 12-25 LACTOFERR 95180 BRANDON TAYL[facility] IN FECAL 7 [facility] QUALITATI INC INC VE OVA&NOEL 83556 [facility] TAY[facility] ITES 7 [facility] DIRECT INC INC SMEARS CONCENTRA TION & ID COMPREHEN 03987 BR[facility]ON T[facility] SIVE 7 [facility] METABOLIC INC INC PANEL CREATINE 24562 [facility] T[facility] KINASE 7 [facility] TOTAL INC INC ECG 30674 [facility] T[facility] ROUTINE 7 [facility] ECG INC INC W/LEAST 12 LDS TRCG ONLY W/O I&[place] [address] BR[facility] TAY[facility] TROPONIN 7 [facility] QUANTITAT INC INC ANNABELLA RADIOLOGI 28766 [place] FLANN[place] C EXAM 7 MEDICAL CHEST 2 IMAGING VIEWS ASS FRONTAL&L ATERAL BLOOD 02645 [facility] T[facility] COUNT 7 [facility] COMPLETE INC INC AUTO&AUTO DIFRNTL WBC CREATINE 31931 BR[facility]ON TAYLOR KINASE MB 7 [facility] FRACTION INC INC ONLY ECG 51437 [facility] ROUTINE 7 PHYSICIAN ECG S, PLLC W/LEAST 12 LDS I&R ONLY APPLICATI 15378 [facility] T[facility] ON 7 [facility] MODALITY INC INC 1/> AREAS HOT/COLD PACKS APPL 25277 BR[facility] TAY[facility] MODALITY 7 [facility] 1/> AREAS INC INC ULTRASOUN D EA 15 MIN E-STIM G0283 BR[facility] TAYL[facility] 1/> AREAS 7 [facility] OTH THAN INC INC WND CARE PART TX PLAN E-STIM G0283 BR[facility]ON TAYLOR 1/> AREAS 7 [facility] OTH THAN INC INC WND CARE PART TX PLAN APPLICATI 21836 BRANDON T[facility] ON 7 [facility] MODALITY INC INC 1/> AREAS HOT/COLD PACKS APPL 98104 BR[facility] TAYL[facility] MODALITY 7 [facility] 1/> AREAS INC INC ULTRASOUN D EA 15 MIN ECG 39386 [facility] T[facility] ROUTINE 7 [facility] ECG INC INC W/LEAST 12 LDS TRCG ONLY W/O I&R ECG 69286 [facility] T[facility] ROUTINE 7 [facility] ECG INC INC W/LEAST 12 LDS TRCG ONLY W/O I&R BLOOD 86604 BR[facility]ON TAYLOR GASES ANY 7 [facility] INC INC COMBINATI ON PH PCO2 PO2 CO2 HCO3 CREATINE 31102 BR[facility] TAY[facility] KINASE 7 [facility] [place] [address] BR[facility] TAYL[facility] TROPONIN 7 [facility] QUANTITAT INC INC ANNABELLA URNLS DIP 92616 [facility] 7 [facility] STICK/TAB INC INC LET REAGENT AUTO MICROSCOP Y ECG 58259 [facility] ROUTINE 7 PHYSICIAN ECG S, PLLC W/LEAST 12 LDS I&R ONLY CREATINE 09180 BRANDON TAYLOR KINASE MB 7 [facility] [place] [address] BRANDON TAYL[facility] FREE 7 [facility] [place] [address] BR[facility] TAY[facility] THYROID 7 [facility] STIMULATI INC INC NG HORMONE TSH BLOOD 17772 BR[facility] TAYL[facility] COUNT 7 [facility] COMPLETE INC INC AUTO&AUTO DIFRNTL WBC COMPREHEN 24142 [facility] T[facility] SIVE 7 [facility] METABOLIC INC INC PANEL CULTURE 82756 [facility] T[facility] BACTERIAL 7 [facility] INC INC QUANTTATI VE COLONY COUNT URINE DRUG TEST G0480 [facility] T[facility] DEFINITV [address] [facility] [address] ID INC INC METH P DAY 1-7 DRUG CL SUSCEPTIB 05845 BR[facility]ON TAYLOR LTY STDY 7 [facility] ANTIMICRB INC INC IAL MICRO/AGA R DILUTJ CULTURE 17326 BR[facility]ON TAYL[facility] BCT 7 [facility] ISOL&PRSM INC INC PTV ID ISOLATE EA URINE DRUG TEST G0481 [facility] T[facility] DEFINITV [address] [facility] [address] [address] ID INC INC METH P DAY 8-14 DRUG CL DRUG TEST 73984 BR[facility]ON TAYLOR PRSMV 7 [facility] INSTRMNT INC INC CHEMISTRY ANALYZERS E-STIM G0283 BRANDON RABAGOON 1/> AREAS 7 [facility] OTH THAN INC INC WND CARE PART TX PLAN APPLICATI 35394 BRANDON BRANDON ON 7 [facility] MODALITY INC INC 1/> AREAS HOT/COLD PACKS APPL 31000 [facility] T[facility] MODALITY 7 [facility] 1/> AREAS INC INC ULTRASOUN D EA 15 MIN BLOOD 80819 BRANDON BRANDON COUNT 7 [facility] COMPLETE INC INC AUTO&AUTO DIFRNTL WBC PHYSICAL 35887 BRANDON BRANDON THERAPY 7 [facility] EVALUATIO INC INC N MOD COMPLEX 30 MINS APPL 59084 [facility] TAYLOR MODALITY 7 [facility] 1/> AREAS INC INC ULTRASOUN D EA 15 MIN APPLICATI 63513 [facility] T[facility]LOR ON 7 [facility] MODALITY INC INC 1/> AREAS HOT/COLD PACKS E-STIM G0283 BRANDON TAYLOR 1/> AREAS 7 [facility] OTH THAN INC INC WND CARE PART TX PLAN CT THORAX 43803 ELENAD[facility]iana CRISOSTOMOCARLA W/O 7 MEDICAL CONTRAST IMAGING MATERIAL ASS RADIOLOGI 08379 BRANDON Kumar EXAM 6 [facility] CHEST 2 INC INC VIEWS FRONTAL&L ATERAL BLOOD 22823 BR[facility] TAYL[facility] COUNT 6 [facility] COMPLETE INC INC AUTO&[place] [address] BR[facility] TAYL[facility] THYROID 6 [facility] STIMULATI INC INC NG HORMONE TSH DRUG TST G0477 BRANDON TAYLOR PRESUMP;C 6 [facility] PBL BEING [place] [address] BRANDON TAYLOR THYROXINE 6 [facility] TOTAL INC INC COMPREHEN 65159 BR[facility]ON T[facility] SIVE 6 [facility] METABOLIC INC INC PANEL COLLECTIO 67117 BR[facility] T[facility] N VENOUS 6 [facility] BLOOD INC INC VENIPUNCT URE THERAPEUT 26141 [facility] T[facility] IC 6 [facility] PROPHYLAC INC INC TIC/DX INJECTION SUBQ/IM GLUC BLD 16579 BRANDON TAYLOR GLUC MNTR 6 [facility] DEV INC INC CLEARED FDA SPEC HOME USE BLD GLU A4253 CRISTIN AMARAL TEST/REAG 6 HOME HOME T [facility] BLD EQUIPME EQUIPME GLU MON-50 LANCETS A4259 CRISTIN AMARAL PER BOX 6 HOME HOME OF 100 MEDICAL MEDICAL EQUIPME EQUIPME SBSQ 42090 [facility] 6 PHYSICIAN SHANTHI CARE/DAY S GROUP 15 MINUTES ECG 15956 BRANDON CHOWDHURY JR ROUTINE 6 [facility] W/LEAST P 12 LDS I&R ONLY RADIOLOGI 35570 [place] FLANNERY C 6 MEDICAL EXAMINATI IMAGING [place] [address] [place] PRUDENCIO ABDOMEN & 6 MEDICAL PELVIS IMAGING W/O ASS CONTRAST MATERIAL INITIAL 02022 [facility] 6 PHYSICIAN SHANTHI CARE/DAY S GROUP 50 MINUTES CRITICAL 17493 LEIGHTON HAYDEN [facility] CARE 6 PHYSICIAN ILL/INJUR S, PLLC ED PATIENT INIT 30-74 [place] [address] BRANDON TAYLOR STREPTOCO 6 [facility] CCUS INC INC GROUP A CULTURE 97113 BR[facility] TAYLOR BCT 6 [facility] ISOL&PRSM INC INC PTV ID ISOLATE EA URINE CUL BACT 24761 BR[facility] TAY[facility] XCPT 6 [facility] URINE INC INC BLOOD/STO OL AEROBIC ISOL CULTURE 54119 [facility] TAY[facility] BACTERIAL 6 [facility] INC INC QUANTTATI VE COLONY COUNT URINE COLLECTIO 29478 BR[facility]ON TAYLOR N VENOUS 6 [facility] BLOOD INC INC VENIPUNCT URE COMPREHEN 04833 [facility] T[facility] SIVE 6 [facility] METABOLIC INC INC PANEL SUSCEPTIB 33633 BR[facility]ON TAYLOR LTY STDY 6 [facility] ANTIMICRB INC INC IAL MICRO/AGA R DILUTJ URNLS DIP 85683 [facility] T[facility] 6 [facility] STICK/TAB INC INC LET REAGENT AUTO MICROSCOP Y RADIOLOGI 89093 [place] JOSEPHINE C EXAM 6 MEDICAL ANITA CHEST 2 IMAGING VIEWS ASS FRONTAL&L ATERAL THERAPEUT 21537 [facility] T[facility] IC 6 [facility] PROPHYLAC INC INC TIC/DX INJECTION SUBQ/IM IAADI 01158 BRANDON TAYLOR INFLUENZA 6 [facility] B VIRUS INC INC IAADI 97804 [facility] T[facility] INFFLUENZ 6 [facility] A A VIRUS INC INC BLOOD 61269 [facility] T[facility] COUNT 6 [facility] COMPLETE INC INC AUTO&AUTO DIFRNTL WBC 3D 35491 BR[facility] TAYLOR RENDERING 6 [facility] W/INTERP INC INC & POSTPROCE SS SUPERVISI ON MRI 54742 BRANDON TAYLOR SPINAL 6 [facility] CANAL INC INC LUMBAR W/O CONTRAST MATERIAL RADIOLOGI 72765 [facility] CRISOSTOMOINEKE C 6 MEDICAL ANITA EXAMINATI IMAGING ON KNEE 3 ASS VIEWS THERAPEUT 30297 [facility] T[facility] IC 6 [facility] INJECTION INC INC IV PUSH EACH NEW DRUG THER 91564 BR[facility] TAYLOR PROPH/DX 6 [facility] NJX IV INC INC PUSH SINGLE/1S T SBST/DRUG THERAPEUT 92034 BRANDON TAYLOR IC PX 1/> 6 [facility] AREAS INC INC EACH 15 MIN EXERCISES PHYSICAL 40574 BR[facility] TAYLOR THERAPY 6 [facility] EVALUATIO INC INC N APPLICATI 55660 BR[facility]ON TAYLOR ON 6 [facility] MODALITY INC INC 1/> AREAS HOT/COLD PACKS E-STIM G0283 BRANDON TAYLOR 1/> AREAS 6 [facility] OTH THAN INC INC WND CARE PART TX PLAN LANCETS A4259 CRISTIN JORDANRELL PER BOX 6 HOME HOME OF 100 MEDICAL MEDICAL EQUIPME EQUIPME BLD GLU A4253 CRISTIN CRISTIN TEST/REAG 6 HOME HOME T [facility] BLD EQUIPME EQUIPME GLU MON-50 DEBRIDEME 88680 [facility] NT NAIL 6 FOOT & ANY ANKLE CE METHOD 6/> POTASSIUM 34646 BRANDON TAYLOR SERUM 6 [facility] PLASMA/WH INC INC OLE BLOOD COLLECTIO 84976 BR[facility] TAY[facility]OR N VENOUS 6 [facility] BLOOD INC INC VENIPUNCT URE COMPREHEN 79143 BR[facility] TAYLOR SIVE 6 [facility] METABOLIC INC INC PANEL AMBULANCE A0429 [facility] SERVICE 6 AMBULANCE AMBULANCE BLS SERVICE SERVICE EMERGENCY TRANSPORT GROUND A0425 [facility] MILEAGE 6 AMBULANCE AMBULANCE PER SERVICE SERVICE STATUTE MILE RADEX 69751 [place] FLANNERY ALL RIBS UNI 6 MEDICAL W/POSTERO IMAGING ANT CH ASS MINIMUM 3 VIEWS POTASSIUM 62800 BR[facility]ON TAYLOR SERUM 6 [facility] PLASMA/WH INC INC OLE BLOOD BLOOD 60181 BR[facility] TAYLOR COUNT 6 [facility] COMPLETE INC INC AUTO&AUTO DIFRNTL WBC COMPREHEN 31474 BR[facility] T[facility]OR SIVE 6 [facility] METABOLIC INC INC PANEL COLLECTIO 72552 [facility] TAY[facility] N VENOUS 6 [facility] BLOOD INC INC VENIPUNCT URE COLLECTIO 86707 [facility] T[facility] N VENOUS 6 [facility] BLOOD INC INC VENIPUNCT URE COMPREHEN 60036 [facility] T[facility] SIVE 6 [facility] METABOLIC INC INC PANEL RADEX 77518 BRANDON TAYLOR RIBS UNI 6 [facility] W/POSTERO INC INC ANT CH MINIMUM 3 VIEWS BLOOD 70297 BR[facility] TAYLOR COUNT 6 [facility] COMPLETE INC INC AUTO&AUTO DIFRNTL WBC RADIOLOGI 96849 [facility] ALL C EXAM 6 MEDICAL CHEST 2 IMAGING VIEWS ASS FRONTAL&L ATERAL RADEX 78391 [facility] SHOULDER 6 MEDICAL MEDICAL COMPLETE IMAGING IMAGING MINIMUM 2 ASS ASS VIEWS BLOOD 63937 BR[facility] TAYLOR COUNT 6 [facility] COMPLETE INC INC AUTO&[place] [address] BRANDON TAYLOR LACTATE 6 [facility] INC INC CULTURE 94514 BRANDON TAYLOR BACTERIAL 6 [facility] BLOOD INC INC AEROBIC W/ID ISOLATES COMPREHEN 30257 BRANDON TAYLOR SIVE 6 [facility] METABOLIC INC INC PANEL COLLECTIO 02570 BR[facility] TAYLOR N VENOUS 6 [facility] BLOOD INC INC VENIPUNCT URE CUL BACT 73411 BR[facility] TAYLOR XCPT 6 [facility] URINE INC INC BLOOD/STO OL AEROBIC ISOL CUL BACT 82958 BRANDON RABAGOON AEROBIC 6 [facility] ADDL INC INC METHS DEFINITIV E EA ISOL SUSCEPTIB 87302 BRANDON TAYLOR LTY STDY 6 [facility] ANTIMICRB INC INC IAL MICRO/AGA R DILUTJ BLD GLU A4253 CRISTIN AMARAL TEST/REAG 6 HOME HOME T [facility] BLD EQUIPME EQUIPME GLU MON-50 LANCETS A4259 CRISTIN CRISTIN PER BOX 6 HOME HOME OF 100 MEDICAL MEDICAL EQUIPME EQUIPME LOCM Q9967 BRANDON BRANDON [phone] 6 [facility] MG/ML INC INC IODINE CONCENTRA TION PER ML CT SOFT 25376 BR[facility]ON TAYLOR TISSUE 6 [facility] NECK INC INC W/CONTRAS T MATERIAL RADEX 51555 [facility] TAYLOR ESOPHAGUS 6 [facility] INC INC RADEX 88878 BR[facility] TAY[facility]OR SPINE 6 [facility] CERVICAL INC INC 4 OR 5 VIEWS RADEX HIP 64681 [facility] T[facility] 6 [facility] UNILATERA INC INC L WITH PELVIS 2-3 VIEWS RADEX 30500 [place] FLANNERY ALL SPINE 6 MEDICAL CERVICAL IMAGING 2 OR 3 ASS VIEWS RADEX HIP 48744 [facility] ALL 6 MEDICAL UNILATERA IMAGING L WITH ASS PELVIS 1 VIEW COLLECTIO 84891 BR[facility] TAYLOR N VENOUS 6 [facility] BLOOD INC INC VENIPUNCT URE COMPREHEN 00564 [facility] T[facility] SIVE 6 [facility] [address] BR[facility] TAYLOR AMMONIA 6 [facility] INC INC BLOOD 74395 BR[facility] TAYLOR COUNT 6 [facility] COMPLETE INC INC AUTO&AUTO DIFRNTL WBC BLOOD 68229 [facility] T[facility]OR COUNT 6 [facility] COMPLETE INC INC AUTO&[place] [address] BRANDON TAYLOR FREE 6 [facility] [place] [address] BRANDON TAY[facility] THYROID 6 [facility] [place]UL[place] [address] BR[facility] TAY[facility]OR UREA 6 [facility] NITROGEN INC INC QUANTITAT ANNABELLA CREATININ 94087 BR[facility] TAYLOR E BLOOD 6 [facility] INC INC COLLECTIO 78004 [facility] TAY[facility] N VENOUS 6 [facility] BLOOD INC INC VENIPUNCT URE COLLECTIO 53120 [facility] T[facility] N VENOUS 5 [facility] BLOOD INC INC VENIPUNCT URE COMPREHEN 76976 [facility] T[facility] SIVE 5 [facility] [address] BR[facility] TAY[facility]OR THYROID 5 [facility] STIMULATI INC INC NG HORMONE TSH BLOOD 87669 [facility] T[facility]OR COUNT 5 [facility] COMPLETE INC INC AUTO&AUTO DIFRNTL WBC CT THORAX 72202 [facility] T[facility] W/O 5 [facility] CONTRAST INC INC MATERIAL RADIOLOGI 66605 BRANDON RABAGOON C EXAM 5 [facility] CHEST 2 INC INC VIEWS FRONTAL&L ATERAL PRESSURIZ 17791 BRANDON BRANDON ED/NONPRE 5 [facility] SSURIZED INC INC INHALATIO N TREATMENT TX PROC G0238 [facility] TAY[facility]OR IMPRV 5 [facility] RESP INC INC FUNCT NOT G0237 FCE-FCE 15MIN RADIOLOGI 51200 BRANDON TAYLOR C 5 [facility] EXAMINATI INC INC ON KNEE 3 VIEWS RADEX 81575 BRANDON TAYLOR RIBS UNI 5 [facility] W/POSTERO INC INC ANT CH MINIMUM 3 VIEWS WRIST L3908 [facility] HAND 5 TECHNOLOG TECHNOLOG ORTHOSIS IES INC IES [place] [address] BRANDON TAYLOR MAXILLOFA 5 [facility] CIAL W/O INC INC CONTRAST MATERIAL RADIOLOGI 38603 BR[facility] TAYLOR C 5 [facility] EXAMINATI INC INC ON PELVIS 1/2 VIEWS RADEX 54780 [facility] T[facility] HAND 5 [facility] MINIMUM 3 INC INC VIEWS APPLICATI 17318 BR[facility] TAYLOR ON SHORT 5 [facility] ARM INC INC SPLINT FOREARM-H AND STATIC RADEX 49194 [facility] TAY[facility]OR WRIST 5 [facility] COMPLETE INC INC MINIMUM 3 VIEWS FOR DIAB A5512 [facility] ONLY MX 5 MEDICAL MEDICAL DNSITY SUPPLY SUPPLY INSRT [facility] FORMD PRFAB EA DIAB ONLY A5500 [facility] [place] FIT CSTM 5 MEDICAL MEDICAL PREP&SPL SUPPLY SUPPLY SHOE [facility] [place] [address] SURG 5 TORO & PATHOLOGY COLLEENILIER GROSS&SHANTHI ROSCOPIC EXAM DECALCIFI [address] CATION 5 TORO & PROCEDURE DUBILIER ANES OPEN 76743 [facility] PJ PROC 5 ANESTH BONES OF THE LOWER BLUE LEG/ANKLE /FOOT NOS ECG 39633 BRANDON CHOWDHURY JR ROUTINE 5 [facility] W/LEAST P 12 LDS I&R ONLY RADEX 77649 [facility] FOOT 5 MEDICAL AYLA COMPLETE IMAGING MINIMUM [address] [place] [address] [facility] HEAD/BRAI 5 MEDICAL AYLA [place] [address] [facility] CERVICAL 5 MEDICAL AYLA SPINE W/O IMAGING CONTRAST ASS MATERIAL RADIOLOGI 44962 [facility] C 5 MEDICAL AYLA EXAMINATI IMAGING ON PELVIS ASS 1/2 VIEWS RADEX HIP 22332 [facility] 5 MEDICAL AYLA UNILATERA IMAGING L ASS COMPLETE MINIMUM 2 VIEWS GROUND A0425 [facility] AM[facility]ULANCE PER SERVICE SERVICE STATUTE MILE [facility] A0427 [facility] SERVICE 5 AMBULANCE AMBULANCE ALS SERVICE SERVICE EMERGENCY TRANSPORT LEVEL 1 CULTURE 22380 COMBINED COMBINED BACTERIAL 5 PHYSICIAN PHYSICIAN S LA S LA QUANTTATI VE COLONY COUNT URINE BLD GLU A4253 CRISTIN AMARAL TEST/REAG 5 HOME HOME T [facility] HOME BLD EQUIPME EQUIPME GLU MON-50 CULTURE 82964 BR[facility] TAYLOR BACTERIAL 5 [facility] INC INC QUANTTATI VE COLONY COUNT URINE COLLECTIO 58041 [facility] T[facility] N VENOUS 5 [facility] BLOOD INC INC VENIPUNCT URE COMPREHEN 70704 BR[facility] TAY[facility]OR SIVE 5 [facility] METABOLIC INC INC PANEL SUSCEPTIB 71327 BRANDON TAYLOR LTY STDY 5 [facility] ANTIMICRB INC INC IAL MICRO/AGA R DILUTJ URNLS DIP 66828 [facility] TAY[facility]OR 5 [facility] STICK/TAB INC INC LET REAGENT AUTO MICROSCOP Y GLUC BLD 28585 BRANDON BRANDON GLUC MNTR 5 [facility] DEV INC INC CLEARED FDA SPEC HOME USE BLOOD 94993 [facility] TAY[facility]OR COUNT 5 [facility] COMPLETE INC INC AUTO&AUTO DIFRNTL WBC THER 93912 BRANDON BRANDON PROPH/DX 5 [facility] NJX IV INC INC PUSH SINGLE/1S T SBST/DRUG CULTURE 13046 BRANDONKATI TAYLOR BCT 5 [facility] ISOL&PRSM INC INC PTV ID ISOLATE EA URINE HEPATITIS 69522 BRANDON RABAGOON A 5 [facility] ANTIBODY INC INC HAAB HEPATITIS 93053 [facility] TAY[facility] B CORE 5 [facility] [place] [address] [facility] TAY[facility] HEPATITIS 5 [facility] B INC INC SURFACE ANTIGEN HEPATITIS 29201 [facility] TAY[facility]OR B SURF 5 [facility] ANTIBODY INC INC HBSAB BLOOD 64167 [facility] TAY[facility]OR COUNT 5 [facility] COMPLETE INC INC AUTO&AUTO DIFRNTL WBC HEPATITIS 13331 [facility] T[facility] C 5 [facility] ANTIBODY INC INC COMPREHEN 53813 BRANDON BRANDON SIVE 5 [facility] METABOLIC INC INC PANEL COLLECTIO 15732 [facility] T[facility] N VENOUS 5 [facility] BLOOD INC INC VENIPUNCT URE DUP-SCAN 05985 [place] FLANN[place] ALL XTR VEINS 5 MEDICAL IMAGING UNILATERA ASS L/LIMITED STUDY CV STRS 88706 [facility] KILLIAN ACOSTA TST 5 PHYSICIAN XERS&/OR S GROUP RX CONT ECG W/O I&R CV STRS 82994 BR[facility] TAYLOR TST 5 [facility] XERS&/OR INC INC RX CONT ECG TRCG ONLY INJECTION J2785 [facility] 5 [facility] REGADENOS INC INC ON 0.1 MG CV STRS 30227 BRANDON WELLS TST 5 [facility] RX CONT P ECG I&R ONLY TECHNETIU A9500 BRANDON Wayne TC-99M 5 [facility] SESTAMIBI INC INC DX PER STUDY DOSE MYOCARDIA 02114 BRANDON TAYL[facility] L SPECT 5 [facility] MULTIPLE INC INC STUDIES RADEX 62577 BRANDON TAYLOR RIBS UNI 5 [facility] W/POSTERO INC INC ANT CH MINIMUM 3 VIEWS RADIOLOGI 54182 [facility] TAY[facility]OR C 5 [facility] EXAMINATI INC INC ON KNEE 3 VIEWS GROUND A0425 [employer] [facility] MILEAGE 5 AMBULANCE AMBULANCE PER SERVICE SERVICE STATUTE MILE AMBULANCE A0429 [facility] SERVICE 5 AMBULANCE AMBULANCE BLS SERVICE SERVICE EMERGENCY TRANSPORT RADIOLOGI 37560 BR[facility] TAYLOR C 5 [facility] EXAMINATI INC INC ON CHEST SINGLE VIEW FRONTAL RADEX 41354 BR[facility] TAYLOR WRIST 5 [facility] COMPLETE INC INC MINIMUM 3 VIEWS RADIOLOGI 33462 [facility] EXAMINATI INC INC ON PELVIS 1/2 VIEWS RADEX 46621 [place] FLANN[facility] ALL RIBS 5 MEDICAL UNILATERA IMAGING L 2 VIEWS ASS RADEX 98886 [facility] SHOULDER 5 [facility] COMPLETE INC INC MINIMUM 2 VIEWS BLOOD 75879 [facility] COUNT 5 [facility] COMPLETE INC INC AUTO&AUTO DIFRNTL WBC BASIC 85458 [facility] METABOLIC 5 [facility] PANEL INC INC CALCIUM TOTAL COLLECTIO 47659 [facility] N VENOUS 5 [facility] BLOOD INC INC VENIPUNCT URE BLD GLU A4253 [facility] AMARAL TEST/REAG 5 HOME HOME [facility] BLD EQUIPME [place]QUIPME GLU MON-50 [place] [address] [place] [facility] & 5 MEDICAL ANITA PELVIS IMAGING W/CONTRAS ASS T MATERIAL GLUCOSE 65135 [facility] QUANTITAT 5 Y Y ANNABELLAFORMERLY [facility] XCPT REAGENT STRIP BLOOD 12709 [facility] COUNT 5 Y Y COMPLETE [facility]OSPITAL [facility] AUTOMATED SPCL STN 77899 [facility] 2 I&R 5 Y Y EXCPT HOSPITAL HOSPITAL MICROORG/ ENZYME/IM CYT PROTHROMB 95609 [facility] IN TIME 5 Y Y HOSPITAL [facility] RADIOLOGI 27060 [facility] ON CHEST SINGLE VIEW FRONTAL BIOPSY 84289 [facility] LIVER 5 Y Y NEEDLE [facility] PERCUTANE OUS THROMBOPL 32547 [facility] ASTIN 5 Y Y TIME HOSPITAL [facility] PARTIAL PLASMA/WH OLE BLOOD INFUSION J7030 [facility] NORMAL 5 Y Y SALINE [facility] SOLUTION 1000 [place] V [address] [facility] SURG 5 Y Y PATHOLOGY [facility] GROSS&SHANTHI ROSCOPIC EXAM IMHISTOCH 52660 [facility] EM/CYTCHM 5 PATHOLOGY PATHOLOGY 1ST SERVICES [place] [address] [facility] SURG 5 PATHOLOGY PATHOLOGY PATHOLOGY SERVICES SERVICES GROSS&SHANTHI ROSCOPIC EXAM IMHISTOCH 57897 [facility] EM/CYTCHM 5 PATHOLOGY PATHOLOGY EA ADDL SERVICES SERVICES ANTIBODY SLIDE CUL BACT 44713 [facility] XCPT 5 [facility] URINE INC INC BLOOD/STO OL AEROBIC ISOL CUL BACT 07603 [facility] AEROBIC 5 [facility] ADDL INC INC METHS DEFINITIV E EA ISOL SUSCEPTIB 87724 [facility] LTY STDY 5 [facility] ANTIMICRB INC INC IAL MICRO/AGA R DILUTJ RADEX 70982 [facility] SPINE 5 MEDICAL AYLA CERVICAL IMAGING 2 OR 3 ASS VIEWS PRESSURIZ 10486 [facility] ED/NONPRE 5 [facility] SSURIZED INC INC INHALATIO N TREATMENT NONINVASI 37841 [facility] VE 5 [facility] EAR/PULSE INC INC OXIMETRY SINGLE DETER BASIC 12224 [facility] ADRIAN METABOLIC 5 [facility] EED MOH PANEL INC CALCIUM TOTAL COLLECTIO 92014 [facility] N VENOUS 5 [facility] BLOOD INC INC VENIPUNCT URE BLOOD 75268 [facility] COUNT 5 [facility] COMPLETE INC INC AUTO&AUTO DIFRNTL WBC GLUC BLD 66221 [facility] GLUC MNTR 5 [facility] DEV INC INC CLEARED [facility] G0378 [facility] OBSERVATI 5 [facility] ON INC INC SERVICE PER HOUR OBSERVATI 82401 [facility] [place] [facility] [id number] [facility] OBSERVATI 5 [facility] [place] [address] [facility] STREPTOCO 5 [facility] CCUS INC INC GROUP A GLUC BLD 34629 [facility] GLUC MNTR 5 [facility] DEV INC INC CLEARED FDA SPEC HOME USE BLOOD 29168 [facility] COUNT 5 [facility] COMPLETE INC INC AUTO&AUTO DIFRNTL WBC IAADI 54238 [facility] INFFLUENZ 5 [facility] A A VIRUS INC INC IAADI 99780 [facility] INFLUENZA 5 [facility] B VIRUS INC INC RADIOLOGI 53051 [facility] C 5 [facility] EXAMINATI INC INC ON CHEST SINGLE VIEW FRONTAL CUL BACT 26807 [facility] XCPT 5 [facility] URINE INC INC BLOOD/STO OL AEROBIC ISOL CUL BACT 82350 [facility] AEROBIC 5 [facility] ADDL INC [place] [address] [facility] 5 [facility] THER INC INC PROPH ADDL SEQUENTIA L TO 1 HR INITIAL 34807 [place] [facility] OBSERVATI 5 [place] INTERNAL CARE/DAY MED 30 [place] [address] [facility] INFUSION 5 [facility] THERAPY/P INC INC ROPHYLAXI S /DX 1ST TO 1 HR INJECTION J2310 [facility] NALOXONE 5 [facility] HCL PER INC INC 1 MG THERAPEUT 50526 [facility] IC 5 [facility] INJECTION INC INC IV PUSH EACH NEW DRUG SUSCEPTIB 56138 [facility] LTY STDY 5 [facility] ANTIMICRB INC INC IAL MICRO/AGA R DILUTJ CULTURE 72887 [facility] BACTERIAL 5 [facility] BLOOD INC INC AEROBIC W/ID ISOLATES RADIOLOGI 39137 [facility] 5 MEDICAL AYLA EXAMINATI IMAGING ON CHEST ASS SINGLE VIEW FRONTAL HEPATITIS 53116 [place] SOURIANAR A & B 5 MEDICAL [place] VACCINE SERV ACH HEPA-HEPB FOUNDATIO ADULT IM N PROTHROMB 96655 [facility] IN TIME 5 [facility] INC INC BLOOD 15078 [facility] COUNT 5 [facility] COMPLETE INC INC AUTO&[place] [address] [facility] GAMMAGLOB 5 [facility] ULIN IGA INC INC IGD IGG IGM EACH COLLECTIO 78100 [facility] N VENOUS 5 [facility] BLOOD INC INC VENIPUNCT URE COMPREHEN 02560 BRAND[facility] SIVE 5 [facility] METABOLIC INC INC PANEL IM ADM 30698 BUNNY SOURIANAR PRQ ID 5 MEDICAL AYANANE SUBQ/IM SERV ACH NJXS 1 FOUNDATIO VACCINE N RADEX 45775 [place] H[place] SHOULDER 5 MEDICAL AYLA COMPLETE IMAGING MINIMUM 2 ASS VIEWS RADEX HIP 19963 [place] HOMER 5 MEDICAL AYLA UNILATERA IMAGING L ASS COMPLE[place] [address] [place] [address] [place] HEAD/BRAI 5 MEDICAL AYLA N W/O IMAGING CONTRAST ASS MATERIAL RADEX 56862 [facility] WRIST 4 [facility] COMPLETE INC INC MINIMUM 3 VIEWS APPLICATI 65581 [facility]ORT 4 KAMAR MOH ARM EMERGENCY SPLINT PHYS FOREARM-H AND STATIC RADEX 51691 [facility] HAND 4 [facility] MINIMUM 3 INC INC VIEWS BLD GLU A4253 CRISTIN JORDANRELL TEST/REAG 4 HOME HOME T [facility] BLD EQUIPME EQUIPME GLU MON-50 PREPJ& 04649 MARNI MARNI ALLERGEN 4 LUIS ALFREDO LOBATO IMMUNOTHE RAPY 1/DIGITAL FORENSIC ANALYST ANTIGEN ADMINISTR G0010 BUNNY SOURIANAR ATION OF 4 MEDICAL [facility]YA[facility] HEPATITIS SERV ACH B FOUNDATIO VACCINE N HEPATITIS 35836 [place] SOURI[place] A & B 4 MEDICAL [place]YA[facility]NE VACCINE SERV ACH HEPA-HEPB FOUNDATIO ADULT IM N SPMTRY 53691 MARNI MARNI W/VC 4 LUIS ALFREDO LUIS ALFREDO EXPIRATOR Y LULU W/WO MXML VOL VNTJ COMPRE 10766 EAR, NOSE EAR, NOSE AUDIOMETR 4 AND AND Y THROAT THROAT THRESHOLD SPECIAL SPECIAL EVAL SP RECOGNIJ TYMPANOME 50149 EAR, NOSE SHASHY TRY 4 AND SOBEIDA THROAT SPECIAL LIPID 56053 [facility] PANEL 4 [facility] INC INC COMPREHEN 88690 [facility] SIVE 4 [facility] METABOLIC INC INC PANEL COLLECTIO 80785 [facility] N VENOUS 4 [facility] [place] [address] [facility] THYROID 4 [facility] STIMULATI [place] [address] [facility] AMMONIA 4 [facility] INC INC BLOOD 88081 [facility] COUNT 4 [facility] COMPLETE INC INC AUTO&AUTO DIFRNTL WBC RADEX HIP 82740 [facility] 4 [facility] UNILATERA INC INC L COMPLETE MINIMUM 2 VIEWS ALBUMIN 91775 [facility] URINE 4 [facility] MICROALBU INC INC MIN QUANTIATI VE HEMOGLOBI 06566 [facility] N 4 [facility] GLYCOSYLA INC INC ML A1C DETERMINA 27137 EVELYN RAMIREZ TION 4 [facility] 32038 EVELYN H[address]MAN [facility] 4 VISION XM&EVAL CENTER COMPRHNSV ESTAB PT > ANTINUCLE 97356 [facility] AR 4 Y Y ANTIBODIE [facility] S NADINE TITER COMPREHEN 58901 [facility] Y METABOLIC [facility] PANEL COLLECTIO 26467 [facility] N VENOUS 4 Y Y BLOOD [facility] VENIPUNCT URE ANTINUCLE 51439 [facility] AR 4 Y Y ANTIBODIE [facility] S NADINE BLD GLU A4253 CRISTIN CRISTIN TEST/REAG 4 HOME HOME T [facility] BLD EQUIPME EQUIPME GLU MON-50 FOR DIAB A5512 [facility] ONLY MX 4 MEDICAL MEDICAL DNSITY SUPPLY SUPPLY INSRT DIR [employer] FORMD PRFAB EA DIAB ONLY A5500 [facility] FIT CSTM 4 MEDICAL MEDICAL PREP&SPL SUPPLY SUPPLY [employer] DNSITY INSRT ESOPHAGOG 24408 [place] CHANI ASTRODUOD 4 MEDICAL AMANDA ENOSCOPY SERV TRANSORAL FOUNDATIO DIAGNOSTI C INFUSION J7030 [facility] 4 Y Y SALINE [facility] SOLUTION 1000 CC COLOREC G0121 [place] WILDE CANCR 4 MEDICAL AMANDA SCR; SERV COLNSCPY FOUNDATIO NOT MEET HI RISK GLUCOSE 33723 [facility] 4 Y Y ANNABELLA BLOOD [facility] XCPT REAGENT STRIP BIOPSY 34719 [facility] SKIN 4 DERMATOLO DERMATOLO SUBQ&/MUC GY GY OUS MEMBRANE EA ADDL LESN BX SKIN 69516 [facility] SUBCUTANE 4 DERMATOLO DERMATOLO OUS&/MUCO GY GY US MEMBRANE 1 LESION CUL BACT 29982 [facility] XCPT 4 DIAGNOSTI DIAGNOSTI URINE CS CS BLOOD/[place] [address] [facility] SURG 4 DERMATOLO DERMATOLO PATHOLOGY GY GY GROSS&SHANTHI ROSCOPIC EXAM COMPREHEN 65867 [facility] SIVE 4 [facility] METABOLIC INC INC PANEL COLLECTIO 55260 [facility] N VENOUS 4 [facility] BLOOD INC INC VENIPUNCT URE BLOOD 41124 [facility] COUNT 4 [facility] COMPLETE INC INC AUTO&AUTO DIFRNTL WBC BLD GLU A4253 CRISTIN JORDANRELL TEST/REAG 4 HOME HOME [facility] BLD EQUIPME EQUIPME GLU MON-50 US SOFT 90662 [facility] TISSUE 4 [facility] HEAD & INC INC NECK REAL TIME IMGE DOCM CULTURE 72700 [facility] BACTERIAL 4 [facility] INC INC QUANTTATI VE COLONY COUNT URINE COLLECTIO 07727 [facility] N VENOUS 4 [facility] BLOOD INC INC VENIPUNCT URE COMPREHEN 71446 [facility] SIVE 4 [facility] METABOLIC INC INC PANEL CULTURE 59356 [facility] BACTERIAL 4 [facility] BLOOD INC INC AEROBIC W/ID ISOLATES BLOOD 87570 [facility] COUNT 4 [facility] COMPLETE INC INC AUTO&AUTO DIFRNTL WBC RADIOLOGI 23831 [facility] EXAM 4 MEDICAL AYLA CHEST 2 IMAGING VIEWS ASS FRONTAL&L ATERAL HEPATITIS 37314 [facility] CORE 4 Y Y ANTIBODY [facility] HBCAB TOTAL HEPATITIS 50789 [facility] SURF 4 Y Y ANTIBODY [facility] [place] [address] [facility] HEPATITIS 4 Y Y B [facility] SURFACE ANTIGEN HEPATITIS 97464 [facility] C 4 Y Y [facility]TIBODY [facility] COLLECTIO 05301 [facility] N VENOUS 4 Y Y BLOOD [facility] VENIPUNCT URE FLUORESCE 47955 [facility] NT 4 Y Y NONNFCT [facility] AGT ANTB SCREEN EA ANTIBODY IADNA 01734 [facility] HEPATITIS 4 Y Y C QUANT [facility] & REVERSE TRANSCRIP TION ANTIBODY 53930 [facility] IDENTIFIC 4 Y Y ATION [facility] LEUKOCYTE ANTIBODIE S HEPATITIS 84893 [facility] A 4 Y Y ANTIBODY [facility] HAAB LOCM Q9967 [facility] [phone] Y Y MG/ML [facility] IODINE CONCENTRA TION PER ML INFUSION J7030 [facility] NORMAL 4 Y Y SALINE [facility] SOLUTION 1000 CC INJECTION J2405 [facility] 4 Y Y [facility] HCL PER 1 MG COMPREHEN 91721 [facility] SIVE 4 Y Y METABOLIC [facility] PANEL RINGERS J7120 [facility] LACTATE 4 Y Y INFUSION [facility] UP TO 1000 CC THER 62082 [facility] PROPH/DX 4 Y Y NJX IV [facility] PUSH SINGLE/1S T SBST/DRUG BLOOD 34214 [facility] COUNT 4 Y Y COMPLETE [facility] [place] [address] [place] V[place] ABDOMEN & 4 MEDICAL OLIVIA PELVIS SERV W/CONTRAS FOUNDATIO T MATERIAL URNLS DIP 46531 [facility] 4 Y Y STICK/TAB [facility] LET RGNT AUTO W/O MICROSCOP Y URNLS DIP 97511 [facility] 4 [facility] STICK/TAB INC INC [place] [address] [facility] LIPASE 4 [facility] INC INC BLOOD 74090 [facility] COUNT 4 [facility] COMPLETE INC INC AUTO&[place] [address] [facility] AMYLASE 4 [facility] INC INC COMPREHEN 13896 [facility] SIVE 4 [facility] METABOLIC INC INC PANEL COLLECTIO 64343 [facility] N VENOUS 4 [facility] BLOOD INC INC VENIPUNCT URE CULTURE 30890 [facility] BACTERIAL 4 [facility] INC INC QUANTTATI VE COLONY COUNT URINE SUSCEPTIB 79084 [facility] LTY STDY 4 [facility] ANTIMICRB INC INC IAL MICRO/AGA R DILUTJ CULTURE 91310 [facility] BCT 4 [facility] ISOL&PRSM INC INC PTV ID ISOLATE EA URINE SCR G0145 [facility] CYTOPATH 4 [facility] CERV/VAG SCR AUTO&MNL RSCR PHYS ECG 10456 [facility] ROUTINE 4 KAMAR ECG EMERGENCY W/LEAST PHYS 12 LDS I&R ONLY RADIOLOGI 70692 [facility] CORONEL C EXAM 4 MEDICAL AYLA CHEST 2 IMAGING VIEWS ASS FRONTAL&L ATERAL ECG 26220 [facility] ROUTINE 4 [facility] ECG INC INC W/LEAST 12 LDS TRCG ONLY W/O I&R CREATINE 00530 [facility] KINASE 4 [facility] TOTAL INC INC NATRIURET 33126 [facility] IC 4 [facility] [place] [address] [facility] TROPONIN 4 [facility] QUANTITAT INC INC ANNABELLA ECG 79794 [facility] WELLS ROUTINE 4 [facility] W/LEAST P 12 LDS I&R ONLY CREATINE 93918 [facility] KINASE MB 4 [facility] FRACTION INC INC ONLY BLOOD 24295 [facility] COUNT 4 [facility] COMPLETE INC INC AUTO&AUTO DIFRNTL WBC BASIC 00778 [facility] METABOLIC 4 [facility] PANEL INC INC CALCIUM TOTAL COLLECTIO 37765 [facility] N VENOUS 4 [facility] BLOOD INC INC VENIPUNCT URE BLD GLU A4253 CRISTIN AMARAL TEST/REAG 4 HOME [facility] BLD EQUIPME EQUIPME GLU MON-50 ALBUTEROL J7613 YOUR YOUR INHAL 4 PHARMACY PHARMACY NON-CP VMTurbo PROD THRU DME U DOSE 1 MG PHRM Q0513 YOUR YOUR DISPENSIN 4 PHARMACY PHARMACY G FEE [employer] INHALATIO N RX; PER 30 DAYS LANCETS A4259 CRISTIN AMARAL PER BOX 4 HOME HOME OF 100 MEDICAL MEDICAL EQUIPME EQUIPME ADMN SET A7005 YOUR YOUR W/SM VOL 4 PHARMACY PHARMACY NONFILTR [facility] NEBULIZR NON-DISPB L E-STIM G0283 [facility] 1/> AREAS 4 [facility] OTH THAN INC INC WND CARE PART TX PLAN APPLICATI 78617 [facility] ON 4 [facility] MODALITY INC INC 1/> AREAS HOT/COLD PACKS APPLICATI 27826 [facility] ON 4 [facility] MODALITY INC INC 1/> AREAS HOT/COLD PACKS E-STIM G0283 [facility] 1/> AREAS 4 [facility] OTH THAN INC INC WND CARE PART TX PLAN APPL 36452 [facility] MODALITY 4 [facility] 1/> AREAS INC INC 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 L APPL 69510 [facility] MODALITY 4 [facility] 1/> AREAS INC INC 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 L E-STIM G0283 [facility] 1/> AREAS 4 [facility] OTH THAN INC INC WND CARE PART TX PLAN APPLICATI 65289 [facility] ON 4 [facility] MODALITY INC INC 1/> AREAS HOT/COLD PACKS COLLECTIO 22566 [facility] N VENOUS 4 [facility] BLOOD INC INC VENIPUNCT URE COMPREHEN 43679 [facility] SIVE 4 [facility] METABOLIC INC INC PANEL LIPID 83095 [facility] PANEL 4 [facility] INC INC APPL 34147 [facility] MODALITY 4 [facility] 1/> AREAS INC INC ELEC STIMJ EA 15 MIN APPLICATI 63243 [facility] ON 4 [facility] MODALITY INC INC 1/> AREAS HOT/COLD PACKS E-STIM G0283 [facility] 1/> AREAS 4 [facility] OTH THAN INC INC WND CARE PART TX PLAN APPL 30544 [facility] MODALITY 4 [facility] 1/> AREAS INC INC 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 L TENS E0730 EMPI INC EMPI INC DEVICE 4 4/MORE LEADS MULTI NERVE STIMULATI ON APPL 04959 [facility] MODALITY 4 [facility] 1/> AREAS INC INC 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 L LANCETS A4259 CRISTIN AMARAL PER BOX 4 HOME HOME OF 100 MEDICAL MEDICAL EQUIPME EQUIPME E-STIM G0283 [facility] 1/> AREAS 4 [facility] OTH THAN INC INC WND CARE PART TX PLAN APPLICATI 81611 [facility] ON 4 [facility] MODALITY INC INC 1/> AREAS HOT/COLD PACKS BLD GLU A4253 CRISTIN AMARAL TEST/REAG 4 HOME HOME [facility] BLD EQUIPME EQUIPME GLU MON-50 URNLS DIP 64326 [facility] MIRANDA 4 [facility] LET RGNT P NON-AUTO W/O MICRSCP APPLICATI 40644 [facility] ON 4 [facility] MODALITY INC INC 1/> AREAS HOT/COLD PACKS E-STIM G0283 [facility] 1/> AREAS 4 [facility] OTH THAN INC INC WND CARE PART TX PLAN RADIOLOGI 32418 [facility] C EXAM 4 MEDICAL AYLA CHEST 2 IMAGING VIEWS ASS FRONTAL&L ATERAL ECG 12844 [facility] WELLS ROUTINE 4 [facility] W/LEAST P 12 LDS I&R ONLY ECG 11930 BRANDON CHOWDHURY JR ROUTINE 4 [facility] W/LEAST P 12 LDS I&R ONLY RADIOLOGI 75717 [facility] 4 MEDICAL AYLA CHEST 2 IMAGING VIEWS ASS FRONTAL&L ATERAL E-STIM G0283 [facility] 1/> AREAS 4 [facility] OTH THAN INC INC WND CARE PART TX PLAN APPL 20497 [facility] MODALITY 4 [facility] 1/> AREAS INC INC ULTRASOUN D EA 15 MIN APPLICATI 02089 [facility] ON 4 [facility] MODALITY INC INC 1/> AREAS HOT/COLD PACKS APPL 87329 [facility] MODALITY 4 [facility] 1/> AREAS INC INC 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 L APPL 44112 [facility] MODALITY 4 [facility] 1/> AREAS INC INC 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 L APPL 82528 [facility] MODALITY 4 [facility] 1/> AREAS INC INC ULTRASOUN D EA 15 MIN NERVE 62129 [facility]MA [facility] CONDUCTIO 4 NEUROLOGY [facility] STUDIES CENTER 5-6 MITCH STUDIES NEEDLE 50300 AMA [facility] EMG EA 4 NEUROLOGY [facility] EXTREMTY CENTER W/PARASPI MITCH NL AREA COMPLETE MRI 46590 [facility] SPINAL 4 [facility] CANAL INC INC LUMBAR W/O CONTRAST MATERIAL 3D 10605 [facility] HOMER RENDERING 4 MEDICAL AYLA IMAGING W/INTERP& ASS POSTPROC DIFF WORK STATION 3D 47877 [facility] RENDERING 4 [facility] W/INTERP INC INC & POSTPROCE SS SUPERVISI ON APPLICATI 34189 [facility] ON 4 [facility] MODALITY INC INC 1/> AREAS HOT/COLD PACKS E-STIM G0283 [facility] 1/> AREAS 4 [facility] OTH THAN INC INC WND CARE PART TX PLAN APPL 77224 [facility] MODALITY 4 [facility] 1/> AREAS INC INC 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 L APPL 80435 [facility] MODALITY 4 [facility] 1/> AREAS INC INC ULTRASOUN D EA 15 MIN APPL 18848 [facility] MODALITY 4 [facility] 1/> AREAS INC INC ULTRASOUN D EA 15 MIN APPL 79043 [facility] MODALITY 4 [facility] 1/> AREAS INC INC 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 L E-STIM G0283 [facility] 1/> AREAS 4 [facility] OTH THAN INC INC WND CARE PART TX PLAN APPLICATI 38026 [facility] ON 4 [facility] MODALITY INC INC 1/> AREAS HOT/COLD PACKS PHYSICAL 13669 [facility] THERAPY 4 [facility] EVALUATIO INC INC N APPLICATI 57449 [facility] ON 4 [facility] MODALITY INC INC 1/> AREAS HOT/COLD PACKS E-STIM G0283 [facility] 1/> AREAS 4 [facility] OTH THAN INC INC WND CARE PART TX PLAN APPL 84727 [facility] MODALITY 4 [facility] 1/> AREAS INC INC ULTRASOUN D EA 15 MIN APPL 74772 [facility] MODALITY 4 [facility] 1/> AREAS INC INC ULTRASOUN D EA 15 MIN E-STIM G0283 [facility] 1/> AREAS 4 [facility] OTH THAN INC INC WND CARE PART TX PLAN APPLICATI 08211 [facility] ON 4 [facility] MODALITY INC INC 1/> AREAS HOT/COLD PACKS APPL 18289 [facility] MODALITY 4 [facility] 1/> AREAS INC INC 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 L APPL 33500 [facility] MODALITY 4 [facility] 1/> AREAS INC INC 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 L LANCETS A4259 CRISTIN AMARAL PER BOX 4 HOME HOME OF 100 MEDICAL MEDICAL EQUIPME EQUIPME APPLICATI 67353 [facility] ON 4 [facility] MODALITY INC INC 1/> AREAS HOT/COLD PACKS E-STIM G0283 [facility] 1/> AREAS 4 [facility] OTH THAN INC INC WND CARE PART TX PLAN APPL 55588 [facility] MODALITY 4 [facility] 1/> AREAS INC INC ULTRASOUN D EA 15 MIN BLD GLU A4253 CRISTIN AMARAL TEST/REAG 4 HOME HOME T [facility] BLD EQUIPME EQUIPME GLU MON-50 E-STIM G0283 [facility] 1/> AREAS 4 [facility] OTH THAN INC INC WND CARE PART TX PLAN APPLICATI 00334 [facility] ON 4 [facility] MODALITY INC INC 1/> AREAS HOT/COLD PACKS APPL 57242 [facility] MODALITY 4 [facility] 1/> AREAS INC INC ULTRASOUN D EA 15 MIN APPL 60622 [facility] MODALITY 4 [facility] 1/> AREAS INC INC 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 L APPL 32427 [facility] MODALITY 4 [facility] 1/> AREAS INC INC 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 L APPL 13599 [facility] MODALITY 4 [facility] 1/> AREAS INC INC ULTRASOUN D EA 15 MIN APPLICATI 94399 [facility] ON 4 [facility] MODALITY INC INC 1/> AREAS HOT/COLD PACKS E-STIM G0283 [facility] 1/> AREAS 4 [facility] OTH THAN INC INC WND CARE PART TX PLAN E-STIM G0283 [facility] 1/> AREAS 4 [facility] OTH THAN INC INC WND CARE PART TX PLAN APPLICATI 60461 [facility] RABAGOON ON 4 [facility] MODALITY INC INC 1/> AREAS HOT/COLD PACKS APPL 98611 [facility] MODALITY 4 [facility] 1/> AREAS INC INC ULTRASOUN D EA 15 MIN APPL 82421 [facility] MODALITY 4 [facility] 1/> AREAS INC INC 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 L INJECTION J2405 [facility] 3 [facility] ONDANSETR INC INC [place] H[place] 1 [place] [address] [facility] INFUSION 3 [facility] THERAPY/P INC INC ROPHYLAXI S /DX 1ST TO 1 HR THERAPEUT 57588 [facility] IC 3 [facility] INJECTION [place] [address] [facility] INFUSION 3 [facility] THERAPY INC INC PROPHYLAX IS/DX EA HOUR ANES 76789 [facility] TRANSURET 3 ANESTH HRAL OF THE W/URETHRO BLUE CYSTOSCOP Y NOS CYSTO 97935 [facility] MIRANDA CALIBRATI 3 [facility] U[facility] P STRIX/CATRACHITO NOSIS GLUC BLD 63435 [facility] GLUC MNTR 3 [facility] DEV INC INC CLEARED FDA SPEC HOME USE URNLS DIP 92182 [facility] MIRANDA 3 [facility] LET RGNT P NON-AUTO W/O MICRSCP PROF SVCS 69280 MARNI MARNI ALLG 3 LUIS ALFREDO LUIS ALFREDO IMMNTX X W/PRV ALLGIC XTRCS NJXS PROF SVCS 29205 MARNI MARNI ALLG 3 LUIS ALFREDO LUIS ALFREDO IMMNTX X W/PRV ALLGIC XTRCS NJXS MYOCARDIA 96455 [facility] Yoon SPECT 3 [facility] MULTIPLE INC INC STUDIES SMR PRIM 96937 [facility] SRC 3 [facility] GRAM/GIEM INC INC SA STAIN BCT FUNGI/VERÓNICA L SUSCEPTIB 15038 [facility] LTY STDY 3 [facility] ANTIMICRB INC INC IAL MICRO/AGA R DILUTJ TECHNETIU A9500 [facility] M TC-99M 3 [facility] SESTAMIBI INC INC DX PER STUDY DOSE CV STRS 64812 [facility] TST 3 [facility] XERS&/OR INC INC RX CONT ECG TRCG ONLY INJECTION J2785 [facility] 3 [facility] REGADENOS INC INC ON 0.1 MG CUL BACT 55584 [facility] STOOL 3 [facility] AEROBIC INC INC ISOL SALMONELL A&SHIGELL BLOOD 52393 [facility] COUNT 3 [facility] COMPLETE INC INC AUTO&[place] [address] [facility] AMYLASE 3 [facility] [place] [address] [facility] LIPASE 3 [facility] INC INC COMPREHEN 57433 [facility] SIVE 3 [facility] METABOLIC INC INC PANEL COLLECTIO 69560 [facility] N VENOUS 3 [facility] BLOOD INC INC VENIPUNCT URE ALBUTEROL J7613 YOUR YOUR INHAL 3 PHARMACY PHARMACY NON-CP [employer] [facility] PROD THRU DME U DOSE 1 MG PHRM Q0513 YOUR YOUR DISPENSIN 3 PHARMACY PHARMACY G FEE [employer] INHALATIO N RX; PER 30 DAYS CULTURE 55642 [facility] BCT 3 [facility] ISOL&PRSM INC INC PTV ID ISOLATE EA URINE CULTURE 84614 [facility] BACTERIAL 3 [facility] INC INC QUANTTATI VE COLONY COUNT URINE SUSCEPTIB 38212 [facility] LTY STDY 3 [facility] ANTIMICRB INC INC IAL MICRO/AGA R DILUTJ URNLS DIP 55411 [facility] MIRANDA 3 [facility] LET RGNT P NON-AUTO W/O MICRSCP INSJ 09324 BR[facility] MIRANDA NON-NDWEL 3 [place] [address] [facility] ABDOMEN & [facility] PELVIS INC INC W/[place] [address] [facility] LIPASE 3 [facility] INC INC BLOOD 73949 [facility] COUNT 3 [facility] COMPLETE INC INC AUTO&AUTO DIFRNTL WBC THERAPEUT 22967 [facility] IC [facility] PROPHYLAC INC INC TIC/DX INJECTION SUBQ/IM PROF SVCS 26352 MARNI MARNI ALLG 3 [facility] LUIS ALFREDO IMMNTX X W/PRV ALLGIC XTRCS NJXS RADEX ABD 33763 [facility] COMPL [facility] AQT ABD INC INC W/S/E/D VIEWS 1 VIEW CH COMPREHEN 23117 [facility] SIVE 3 [facility] METABOLIC INC INC PANEL INJECTION J2405 [facility] ONDANSETR INC INC ON HCL PER 1 MG 3D 19137 [facility] RENDERING 3 [facility] INC INC W/INTERP& POSTPROC DIFF WORK STATION PROF SVCS 41232 MARNI MARNI ALLG 3 LUIS ALFREDO LUIS ALFREDO IMMNTX X W/PRV ALLGIC XTRCS NJXS SPMTRY 64834 MARNI MARNI W/VC 3 [facility]IS ALFREDO LUIS ALFREDO EXPIRATOR Y LULU W/WO MXML VOL VNTJ CULTURE 93509 [facility] BACTERIAL [facility] INC INC QUANTTATI VE COLONY COUNT URINE PROF SVCS 10029 MARNI MARNI ALLG 3 LUIS ALFREDO LUIS ALFREDO IMMNTX X W/PRV ALLGIC XTRCS NJXS PROF SVCS 65237 MARNI MARNI ALLG 3 LUIS ALFREDO LUIS ALFREDO IMMNTX X W/PRV ALLGIC XTRCS NJXS CULTURE 02571 COMBINED COMBINED BACTERIAL 3 PHYSICIAN PHYSICIAN S LA S LA QUANTTATI VE COLONY COUNT URINE COLLECTIO 95238 [facility] N VENOUS 3 [facility] BLOOD INC INC VENIPUNCT URE BLOOD 21991 [facility] COUNT 3 [facility] COMPLETE INC INC AUTO&AUTO DIFRNTL WBC POSTERIOR V2632 [facility] CHAMBER 3 [facility] INTRAOCUL INC INC AR LENS GLUC BLD 14784 [facility] GLUC MNTR 3 [facility] DEV INC INC CLEARED FDA SPEC HOME USE CATARACT 61903 [facility] REMOVAL 3 [facility] 83022 MARNI MARNI ALLG 3 LUIS ALFREDO LUIS ALFREDO IMMNTX [place] [address] [facility] INFUSION 3 [facility] THERAPY/P INC INC ROPHYLAXI S /DX 1ST TO 1 [place] [address] [facility] INFUSION 3 [facility] THERAPY INC INC PROPHYLAX IS/DX EA HOUR CULTURE 46511 [facility] BACTERIAL 3 [facility] INC INC QUANTTATI VE COLONY COUNT URINE COMPREHEN 41532 [facility] SIVE 3 [facility] METABOLIC INC INC PANEL COLLECTIO 14466 [facility] N VENOUS 3 [facility] BLOOD INC INC VENIPUNCT URE BLOOD 05476 [facility] COUNT 3 [facility] COMPLETE INC INC AUTO&AUTO DIFRNTL WBC PROF SVCS 01780 MARNI MARNI ALLG 3 [facility]IS ALFREDO LUIS ALFREDO IMMNTX X W/PRV ALLGIC XTRCS NJXS PROF SVCS 64730 MARNI MARNI ALLG 3 [facility]IS ALFREDO LUIS ALFREDO IMMNTX X W/PRV ALLGIC XTRCS NJXS SPMTRY 51417 MARNI MARNI W/VC 3 [facility]IS ALFREDO LUIS ALFREDO EXPIRATOR Y LULU W/WO MXML VOL VNTJ POSTERIOR V2632 [facility] CHAMBER [facility] INTRAOCUL INC INC AR LENS CATARACT 37859 [facility] REMOVAL [facility] INSERTION INC INC OF LENS GLUC BLD 79421 [facility] GLUC MNTR [facility] DEV INC [place] [address] [facility] INFUSION 3 [facility] THERAPY/P INC INC ROPHYLAXI S /DX 1ST TO 1 [place] [address] [facility] INFUSION 3 [facility] THERAPY INC INC PROPHYLAX IS/DX EA HOUR OPH BMTRY 00030 [facility] 3 EYE [facility] A-SCAN IO LENS PWR CHETAN CULTURE 79172 [facility] BACTERIAL 3 [facility] INC INC QUANTTATI VE COLONY COUNT URINE SUSCEPTIB 29041 [facility] LTY STDY 3 [facility] ANTIMICRB INC INC IAL MICRO/AGA R DILUTJ URNLS DIP 93051 [facility] 3 VALLEY JR PETR STICK/TAB INTERNAL LET RGNT MED NON-AUTO W/O MICRSCP CULTURE 39317 [facility] BCT 3 [facility] ISOL&PRSM INC INC PTV ID ISOLATE EA URINE PHRM Q0513 YOUR YOUR DISPENSIN 3 PHARMACY PHARMACY G FEE [facility] INHALATIO N RX; PER 30 DAYS ADMN SET A7005 YOUR YOUR W/SM VOL 3 PHARMACY PHARMACY NONFILTR [facility] NEBULIZR NON-DISPB L ALBUTEROL J7613 YOUR YOUR INHAL 3 PHARMACY PHARMACY NON-CP [facility] PROD THRU DME U DOSE 1 MG INJECTION J2010 MARNI MARNI 3 [facility] AL[facility] LU[facility] ALFR[facility]O LINCOMYCI N HCL UP TO 300 MG ANTINUCLE 32797 [facility] AR 3 [facility] ANTIBODIE INC INC S NADINE COLLECTIO 92462 [facility] N VENOUS 3 [facility] BLOOD INC INC VENIPUNCT URE COMPLEMEN 39998 [facility] T TOTAL 3 [facility] HEMOLYTIC INC INC RHEUMATOI 05982 [facility] D FACTOR 3 [facility] QUANTITAT INC INC ANNABELLA ANTIBODY 21980 [facility] BACTERIUM 3 [facility] NOT INC INC ELSEWHERE SPECIFIED INJECTION J1040 MARNI MARNI 3 [facility] ALFR[facility] METHYLPRE DNISOLONE ACETATE 80 MG PRESSURIZ 46478 MARNI MARNI ED/NONPRE 3 [facility] SSURIZED INHALATIO N TREATMENT BRNCDILAT 34235 MARNI MARNI RSPSE 3 [facility] AL[facility] SPMTRY PRE&POST- BRNCDILAT ADMN GAMMAGLOB 40679 [facility] ULIN 3 [facility] IMMUNOGLO [place] [address] [facility] THYROXINE 3 [facility] TOTAL INC INC 25 06025 [facility] HYDROXY 3 [facility] INCLUDES INC INC FRACTIONS IF PERFORMED RADIOLOGI 57843 [facility] C EXAM 3 [facility] CHEST 2 INC INC VIEWS FRONTAL&L ATERAL DEMO&/POLLY 27820 MARNI GRIDER L OF PT 3 [facility] AL[facility] UTILIZ AERSL GEN/NEB/I NHLR/IP CYANOCOBA 02343 [facility] PRATEEK 3 [facility] VITAMIN [place] B-12 [place] [address] [facility] GAMMAGLOB 3 [facility] ULIN IGA INC INC IGD IGG IGM EACH SEDIMENTA 71675 [facility] TION RATE 3 [facility] RBC INC INC NON-AUTOM ATED BLOOD 57128 [facility] COUNT 3 [facility] COMPLETE INC INC AUTO&AUTO DIFRNTL WBC THERAPEUT 32691 MARNI MICHELLEHBURN IC 3 LU[facility] AL[facility] PROPHYLAC TIC/DX INJECTION SUBQ/[place] [address] [facility] GAMMAGLOB 3 [facility] [place] [address] [facility] THYROID 3 [facility] STIMULATI INC INC NG HORMONE TSH C-REACTIV 80499 [facility] E PROTEIN 3 [facility] INC INC RADEX 08736 [facility] RIBS UNI 3 [facility] W/POSTERO INC INC ANT CH MINIMUM 3 VIEWS PROF SVCS 07926 MARNI MARNI ALLG 3 [facility] ALFR[facility] IMMNTX X W/PRV ALLGIC XTRCS NJXS CULTURE 01357 COMBINED COMBINED BACTERIAL 3 PHYSICIAN PHYSICIAN S LA S LA QUANTTATI VE COLONY COUNT URINE URNLS DIP 25337 [facility] 3 VALLEY CECE STICK/TAB INTERNAL LET RGNT MEDI NON-AUTO W/O MICRSCP OPHTH 83878 [facility] 3 EYE [facility] COMPRE NEW PT 1/> VST OPH BMTRY 38553 [facility] 3 [facility] A[facility]SC[facility] IO LENS PWR CHETAN COLLECTIO 83228 [facility] N VENOUS 3 [facility] BLOOD INC INC VENIPUNCT URE BLOOD 27125 [facility] COUNT 3 [facility] COMPLETE INC INC AUTO&AUTO DIFRNTL WBC BLOOD 12517 [facility] COUNT 3 [facility] COMPLETE INC INC AUTO&AUTO DIFRNTL WBC URNLS DIP 09623 [facility] 3 VALLEY JR PETR STICK/TAB INTERNAL LET RGNT MED NON-AUTO W/O MICRSCP RADIOLOGI 65109 [facility] C EXAM 3 [facility] CHEST 2 INC INC VIEWS FRONTAL&L ATERAL COLLECTIO 98189 [facility] N VENOUS 3 [facility] BLOOD INC INC VENIPUNCT URE COMPREHEN 38840 [facility] SIVE 3 [facility] METABOLIC INC INC PANEL PROF SVCS 69234 MARNI MARNI ALLG 3 LUIS ALFREDO LUIS ALFREDO IMMNTX X W/PRV ALLGIC XTRCS NJXS PROF SVCS 27208 MARNI MARNI ALLG 3 LUIS ALFREDO LUIS ALFREDO IMMNTX X W/PRV ALLGIC XTRCS NJXS PREPJ& 92334 MARNI MARNI ALLERGEN 3 [facility] AL[facility] ALFR[facility] IMMUNOTHE RAPY 1/DIGITAL FORENSIC ANALYST ANTIGEN BLD GLU A4253 M E D M E D TEST/REAG 3 SUPPLIES SUPPLIES T STRIPS HOME BLD GLU MON-50 LANCETS A4259 M E D M E D PER BOX 3 SUPPLIES SUPPLIES OF [address] [facility] 25872 MARNI MARNI ALLG 3 LUIS ALFREDO LUIS ALFREDO IMMNTX X W/PRV ALLGIC XTRCS NJXS PROF [facility] 67134 MARNI MARNI ALLG 3 LUIS ALFREDO LUIS ALFREDO IMMNTX X W/PRV ALLGIC XTRCS NJXS SUSCEPTIB 66765 [facility] LTY STDY 3 [facility] ANTIMICRB INC INC IAL MICRO/AGA R DILUTJ CULTURE 12548 [facility] BACTERIAL 3 [facility] INC INC QUANTTATI VE COLONY COUNT URINE COLLECTIO 40430 [facility] N VENOUS 3 [facility] BLOOD INC INC VENIPUNCT URE COMPREHEN 05679 [facility] SIVE 3 [facility] METABOLIC INC INC PANEL URNLS DIP 96429 [facility] 3 [facility] STICK/TAB INC INC LET REAGENT AUTO MICROSCOP Y BLOOD 41577 [facility] COUNT 3 [facility] COMPLETE INC INC AUTO&AUTO DIFRNTL WBC CULTURE 36937 [facility] BCT 3 [facility] ISOL&PRSM INC INC PTV ID ISOLATE EA URINE CANE INCL E0100 CRISTIN CRISTIN CANES 3 HOME HOME ALL MEDICAL MEDICAL MATERIAL EQUIPME EQUIPME ADJUSTBLE /FIX W/TIP DXA BONE 57025 [facility] DENSITY 3 MEDICAL AYLA STUDY 1/> IMAGING SITES ASS AXIAL SKEL PROF [facility] 51899 MARNI MARNI ALLG 3 LUIS ALFREDO LUIS ALFREDO IMMNTX X W/PRV ALLGIC XTRCS NJXS RADIOLOGI 80811 [facility] C EXAM 3 MEDICAL AYLA CHEST 2 IMAGING VIEWS ASS FRONTAL&L ATERAL RADIOLOGI 59503 [place] [facility] C EXAM 3 MEDICAL AYLA KNEE IMAGING COMPLETE ASS 4/MORE VIEWS PROF [facility] 11883 MARNI MARNI ALLG 3 LUIS ALFREDO LUIS ALFREDO IMMNTX X W/PRV ALLGIC XTRCS NJXS URNLS DIP 58779 [facility] 3 VALLEY CECE STICK/TAB INTERNAL LET RGNT MEDI NON-AUTO W/O MICRSCP CULTURE 12523 COMBINED COMBINED BACTERIAL 3 PHYSICIAN PHYSICIAN S LA S LA QUANTTATI VE COLONY COUNT URINE PROF [facility] 39167 MARNI MARNI ALLG 3 LUIS ALFREDO LUIS ALFREDO IMMNTX X W/[place] [address] [facility] BLOOD/URI 3 [facility] C ACID INC INC COLLECTIO 53396 [facility] N VENOUS 3 [facility] BLOOD INC INC VENIPUNCT URE PROF [facility] 82155 MARNI MARNI ALLG 3 LUIS ALFREDO LUIS ALFREDO IMMNTX X W/PRV ALLGIC XTRCS NJXS PROF [facility] 16357 MARNI MARNI ALLG 3 LUIS ALFREDO LUIS ALFREDO IMMNTX X W/PRV ALLGIC XTRCS NJXS PROF [facility] 24149 MARNI MARNI ALLG 3 LUIS ALFREDO LUIS ALFREDO IMMNTX X W/PRV ALLGIC XTRCS NJXS PROF [facility] 25327 MARNI MARNI ALLG 3 LUIS ALFREDO LUIS ALFREDO IMMNTX X W/PRV ALLGIC XTRCS NJXS PROF [facility] 26579 MARNI MARNI ALLG 3 LUIS ALFREDO LUIS ALFREDO IMMNTX X W/PRV ALLGIC XTRCS NJXS PERCUTANE 69144 MARNI MARNI OUS TESTS 3 [facility] AL[facility] LU[facility] ALFR[facility]O W/ALLERGE ALVARADO EXTRACTS SPMTRY 48310 MARNI MARNI W/VC 3 [facility] AL[facility] AL[facility] EXPIRATOR Y LULU W/WO MXML VOL VNTJ [facility] A4258 M E D M E D WERED 3 SUPPLIES SUPPLIES DEVICE FOR LANCET EACH REPL DEYSI A4235 M E D M E D LITHIUM 3 SUPPLIES SUPPLIES MED NECES OSCAR BG MON OWN PT EA BLD GLU A4253 M E D M E D TEST/REAG 3 SUPPLIES SUPPLIES T STRIPS HOME BLD GLU MON-50 NORMAL A4256 M E D M E D LOW AND 3 SUPPLIES SUPPLIES HIGH CALIBRATO R SOLUTION/ CHIPS LANCETS A4259 M E D M E D PER BOX 3 SUPPLIES SUPPLIES OF 100 DIAB ONLY A5500 [facility]INIC CLINIC FIT CSTM 3 PHARMACY PHARMACY PREP&SPL SHOE MX DNSITY INSRT FOR DIAB A5513 CLINIC CLINIC ONLY MX 3 PHARMACY PHARMACY DNSITY INSRT CSTM MOLD CSTM EA SPMTRY 81725 MARNI MARNI W/VC 3 [facility] AL[facility] LUIS ALFREDO EXPIRATOR Y LULU W/WO MXML VOL VNTJ CYSTOURET 11874 [facility] JR HROSCOPY 3 [facility] P URETHROCY 80188 [place] [facility] STOGRAPHY 3 MEDICAL AYLA VOIDING IMAGING RS&I ASS NJX 90526 [place] [facility] RETROGRAD 3 MEDICAL AYLA E IMAGING URETHROCS ASS TOGRAPY 42562 [facility] TRANSVAGI 3 [facility] NAL INC INC COMPUTER- 95883 [facility] AIDED 3 [facility] DETECTION INC INC SCREENING MAMMOGRAP HY SCREENING G0202 [facility] 3 [facility] MAMMOGRAP INC INC HY DURGA INCL CAD WHEN PERFORMD LOCM Q9965 [facility] 100-199 3 [facility] MG/ML INC INC IODINE CONCENTRA TION PER ML CULTURE 17989 COMBINED COMBINED BACTERIAL 3 PHYSICIAN PHYSICIAN S LA S LA QUANTTATI VE COLONY COUNT URINE INJECTION J0696 [facility] 3 VALLEY CECE CEFTRIAXO INTERNAL NE SODIUM MEDI PER 250 MG URNLS DIP 37404 [facility] 3 VALLEY VALLEY STICK/TAB INTERNAL INTERNAL LET RGNT MEDI MEDI NON-AUTO W/O MICRSCP IM ADM 72429 [facility] PRQ ID 3 VALLEY CECE SUBQ/IM INTERNAL NJXS 1 [facility] 74545 [facility] DISCHARGE 3 [facility] DAY INTERNAL MANAGEMEN MED T 30 MIN/< SBSQ [address] CARE/DAY INTERNAL 25 MED MINUTES SBSQ [address] CARE/DAY INTERNAL 25 MED MINUTES SBSQ [address] CARE/DAY INTERNAL 25 MED MINUTES 00778 [facility] HOMER RETROPERI 3 MEDICAL AYLA TONEAL IMAGING REAL TIME ASS W/IMAGE COMPLETE SBSQ [address] CARE/DAY INTERNAL 25 MED MINUTES FULL FACE A7030 [facility] MASK 3 MEDICAL MEDICAL USED SUPPLY SUPPLY W/POS [employer] DEVICE EA INITIAL [address] CARE/DAY INTERNAL 50 MED MINUTES CULTURE 43705 COMBINED COMBINED BACTERIAL 3 PHYSICIAN PHYSICIAN S LEVI Oleary LA QUANTTATI VE COLONY COUNT URINE SCR G0145 PATHOLOGY PATHOLOGY CYTOPATH 3 & & CERV/VAG CYTOLOGY CYTOLOGY SCR LAB LAB AUTO&MNL RSCR PHYS CERV/VAGI G0101 [facility] NAL [facility] SCR; SONIA PELV&CLIN BREAST EXAM URNLS DIP 04717 [facility] STICK/TAB CLINIC OF LET RGNT SONIA NON-AUTO W/O MICRSCP SCREEN Q0091 [facility] PAP 3 [facility] SMEAR; CLINIC OF OBTAIN SONIA PREP &C ONVEY TO LAB URNLS DIP [address] [place] [address] STICK/TAB INTERNAL LET RGNT MEDI NON-AUTO W/O MICRSCP CULTURE 49708 COMBINED COMBINED BACTERIAL 3 PHYSICIAN PHYSICIAN S LEVI Oleary LA QUANTTATI VE COLONY COUNT URINE CULTURE 37052 [facility] BACTERIAL 3 [facility] INC INC QUANTTATI VE COLONY COUNT URINE COLLECTIO 59052 [facility] N VENOUS 3 [facility] BLOOD INC INC VENIPUNCT URE COMPREHEN 77335 [facility] SIVE 3 [facility] METABOLIC INC INC PANEL LIPID 68497 [facility] PANEL 3 [facility] INC INC SUSCEPTIB 51204 [facility] LTY STDY 3 [facility] ANTIMICRB INC INC IAL MICRO/AGA R DILUTJ ALBUMIN 32092 [facility] URINE 3 [facility] MICROALBU INC INC MIN QUANTIATI VE HEMOGLOBI 06316 [facility] N 3 [facility] GLYCOSYLA INC INC ML A1C BLOOD 88879 [facility] COUNT 3 [facility] COMPLETE INC INC AUTO&[place] [address] [facility] THYROID 3 [facility] STIMULATI INC INC NG HORMONE TSH CULTURE 13166 [facility] BCT 3 [facility] ISOL&PRSM INC INC PTV ID ISOLATE EA URINE INITIAL 93899 [facility] INPATIENT 3 PSC CONSULT NEW/ESTAB PT 80 MIN SBSQ 91496 [facility] HOSPITAL 3 PSC CARE/DAY 35 MINUTES SBSQ 97282 INPATIENT [facility] 3 CARE, CARE/DAY PLLC 25 MINUTES SBSQ 02349 INPATIENT [facility] 3 CARE, CARE/DAY PLLC 35 MINUTES SBSQ 80104 INPATIENT [facility] 3 CARE, CARE/DAY PLLC 25 MINUTES NEBULIZER E0570 CRISTIN AMARAL WITH 3 HOME HOME [facility]PRESS[facility] MEDICAL MEDICAL R EQUIPME EQUIPME SBSQ 52427 INPATIENT [facility] 3 CARE, CARE/DAY PLLC 35 MINUTES INITIAL 43876 INPATIENT [facility] 3 CARE, CARE/DAY PLLC 50 MINUTES BLD GLU A4253 M E D M E D TEST/REAG 2 SUPPLIES SUPPLIES T STRIPS HOME BLD GLU MON-50 LANCETS A4259 M E D M E D PER BOX 2 SUPPLIES SUPPLIES OF 100 CULTURE 65136 [facility] BCT 2 [facility] ISOL&PRSM INC INC PTV ID ISOLATE EA URINE CULTURE 81301 [facility] BACTERIAL 2 [facility] INC INC QUANTTATI VE COLONY COUNT URINE INJECTION J2405 [facility] 2 [facility] ONDANSETR INC INC ON HCL PER 1 MG BASIC 36190 [facility] METABOLIC 2 [facility] PANEL INC INC CALCIUM TOTAL SUSCEPTIB 26308 [facility] LTY STDY 2 [facility] HOSP ANTIMICRB INC INC IAL [place]CRO/[place] [address] [facility] INFUSION 2 [facility] THERAPY INC INC PROPHYLAX IS/DX EA HOUR THERAPEUT 96697 [facility] IC 2 [facility] INJECTION [place] [address] [facility] INFUSION 2 [facility] THERAPY/P INC INC ROPHYLAXI S /DX 1ST TO 1 HR BLOOD 53351 [facility] COUNT 2 [facility] COMPLETE INC INC AUTO&AUTO DIFRNTL WBC URNLS DIP 11515 [facility] 2 [facility] H[facility]P STICK/TAB INC INC LET REAGENT AUTO MICROSCOP Y RADIOLOGI 24245 [facility] C EXAM 2 [facility] CHEST 2 INC INC VIEWS FRONTAL&L ATERAL NASL A7034 [facility] INTRFCE 2 MEDICAL MEDICAL POS ARWAY SUPPLY SUPPLY PRSS INC. INC. DEVC W/WO HEAD STRAP HEADGEAR A7035 [facility] USED 2 MEDICAL MEDICAL W/POSITIV SUPPLY SUPPLY E AIRWAY INC. INC. PRESSURE DEVICE RADIOLOGI 94961 [place] [facility] C 2 MEDICAL AYLA EXAMINATI IMAGING ON KNEE ASS 1/2 VIEWS RADEX 69287 [place] [facility] FINGR 2 MEDICAL AYLA MINIMUM 2 IMAGING VIEWS ASS RADEX 76293 [facility] CORONEL HUMERUS 2 MEDICAL AYLA MINIMUM 2 IMAGING VIEWS ASS BLD GLU A4253 [facility] TEST/REAG 2 CVS CVS T STRIPS PHARMACY PHARMACY HOME BLD LLC, D LLC, D GLU MON-50 NEBULIZER E0570 CRISTIN AMARAL WITH 2 HOME HOME COMPRESSO MEDICAL MEDICAL R EQUIPME EQUIPME EGD 45571 [facility]OR[facility] PALOMO TRANSORAL 2 L SURGIAL CATRACHITO BIOPSY SINGLE/MU ASSOCIATE LTIPLE ENDOSCOPY 89619 ORTH[facility]OX ORTHODOX UPPER 2 PHYS SURG PHYS SURG SMALL CTR CTR INTESTINE W/BIOPSY ANES 09851 [facility] LOWER 2 [place] J[place] INTESTINE ANESTHESI A ENDOSCOPY DISTAL DUODENUM RADEX 00113 [facility] ADA SMALL 2 RADIOLOGY INTESTINE ASSOC W/MULTIPL E SERIAL IMAGES COLONOSCO 97793 ORTHODOX ORTHODOX PY 2 PHYS SURG PHYS SURG W/BIOPSY CTR CTR SINGLE/MU LTIPLE SPECIAL 02341 [facility]IP[facility] BENSEMA STAIN 2 TORO & MAR GROUP 1 DUBILIER MICROORGA NISMS I&[place] [address] CHIPPS BENSEMA SURG 2 TORO & MAR PATHOLOGY DUBILIER GROSS&SHANTHI ROSCOPIC EXAM ECG 78495 [facility] ROUTINE 2 KAMAR DEIDRA ECG EMERGENCY W/LEAST PHYS 12 LDS I&R ONLY RADIOLOGI 12820 [facility] [place] GARCIA C 2 RADIOLOGY RAY EXAMINATI ON CHEST SINGLE VIEW FRONTAL NEBULIZER E0570 CRISTIN AMARAL WITH 2 HOME HOME COMPRESSO MEDICAL MEDICAL R EQUIPME EQUIPME BLD GLU A4253 [facility] TEST/REAG 2 CVS CVS T STRIPS PHARMACY PHARMACY HOME BLD LLC, D LLC, D GLU MON-50 [place] [address] [facility] AMYLASE 2 [employer] [address] [facility] FOLIC 2 AMERIC AMERIC ACID HOLDING HOLDING SERUM ADMINISTR G0008 HORIZON BAZZI ATION OF 2 HEALTHCAR TAR INFLUENZA E CENTER VIRUS VACCINE HEMOGLOBI 26100 [facility] YAN[facility]A N 2 AMERIC AMERIC GLYCOSYLA HOLDING HOLDING ML A1C CYANOCOBA 56724 [facility] PRATEEK 2 AMERIC AMERIC VITAMIN HOLDING HOLDING B-12 [place] [address] [facility] LIPASE 2 AMERIC AMERIC HOLDING HOLDING ACUTE 44686 [facility] HEPATITIS 2 AMERIC AMERIC PANEL HOLDING HOLDING INFLUENZA Q2036 HORIZON BAZZI VACC 2 HEALTHCAR TAR SPLIT E CENTER VIRUS 3 YRS & > IM FLULAVAL NEBULIZER E0570 CRISTIN AMARAL WITH 2 HOME HOME COMPRESSO MEDICAL [place] [address] LAB [facility] THYROID 2 AMERIC AMERIC STIMULATI HOLDING HOLDING NG HORMONE TSH HOME E0607 [facility] BLOOD 2 CVS CVS GLUCOSE PHARMACY PHARMACY MONITOR LLC, D LLC, D LANCETS A4259 [facility] PER BOX 2 CVS CVS OF 100 PHARMACY PHARMACY LLC, D LLC, D HEPATITIS 14065 [facility] ANTIBODY 2 AMERIC AMERIC HAAB IGM HOLDING HOLDING ANTIBODY COMPREHEN 55474 [facility] SIVE 2 AMERIC AMERIC METABOLIC HOLDING HOLDING PANEL LANCETS A4259 M E D M E D PER BOX 2 SUPPLIES SUPPLIES OF 100 SPRING-PO A4258 M E D M E D WERED 2 SUPPLIES SUPPLIES DEVICE FOR LANCET EACH REPL DEYSI A4235 M E D M E D LITHIUM 2 SUPPLIES SUPPLIES MED NECES OSCAR BG MON OWN PT EA BLD GLU A4253 M E D M E D TEST/REAG 2 SUPPLIES SUPPLIES T STRIPS HOME BLD GLU MON-50 NORMAL A4256 M E D M E D LOW AND 2 SUPPLIES SUPPLIES HIGH CALIBRATO R SOLUTION/ CHIPS RADEX 25913 [facility] SPINE 2 MOBILE MOBILE CERVICAL DIAGNOSTI DIAGNOSTI 2 OR 3 C SE C SE VIEWS SET-UP Q0092 [facility] PORTABLE 2 MOBILE MOBILE X-RAY DIAGNOSTI DIAGNOSTI EQUIPMENT C SE C SE SBSQ 75915 [facility] 2 PSC CARE/DAY 25 MINUTES TRANS R0070 [facility] PRTBL 2 MOBILE MOBILE X-RAY DIAGNOSTI DIAGNOSTI EQP&PERS C SE C SE OSCAR/NRS OSCAR-TRIP 1 PT SBSQ 70212 [facility] 2 [facility] CARE/DAY 25 MINUTES SBSQ 08424 INPATIENT [facility] 2 CARE, CARE/DAY PLLC [address] [facility] [place] ROUTINE 2 FORTINO LEON ECG CARDIOLOG W/LEAST Y CLINIC 12 LDS I&[place] [address] [facility] [place] PETER HEAD/BRAI 2 RADIOLOGY JULIÁN N W/O CONTRAST MATERIAL SBSQ 50069 [facility] 2 PSC CARE/DAY 25 MINUTES SBSQ 55355 [facility] 2 PSC CARE/DAY 25 MINUTES NEBULIZER E0570 CRISTIN AMARAL WITH 2 HOME HOME COMPRESSO MEDICAL MEDICAL R EQUIPME EQUIPME DUP-SCAN 95163 [facility] [place] BRIZUELA JAM XTR VEINS 2 RADIOLOGY UNILATERA L/LIMITED STUDY ECG 78135 [facility] ROUTINE 2 MOBILE MOBILE ECG DIAGNOSTI DIAGNOSTI W/LEAST C SE C SE 12 LDS TRCG ONLY W/O I&R RADIOLOGI 44694 [facility] C EXAM 2 MOBILE MOBILE CHEST 2 DIAGNOSTI DIAGNOSTI VIEWS C SE C SE FRONTAL&L ATERAL TRANS R0075 [facility] PRTBL 2 MOBILE MOBILE XRAY DIAGNOSTI DIAGNOSTI EQP&PERS C SE C SE OSCAR/NRS OSCAR-TRIP> 1 PT SET-UP Q0092 [facility] PORTABLE 2 MOBILE MOBILE X-RAY DIAGNOSTI DIAGNOSTI EQUIPMENT C SE C SE SBSQ 85341 [facility] 2 PSC CARE/DAY 35 MINUTES DNA 16394 [facility] ANTIBODY 2 [facility] COEUR D'ALENE/DO INC INC UBLE STRANDED DNA 31599 [facility] ANTIBODY 2 [facility] SINGLE INC INC STRANDED IM ADM 92337 [facility] PRQ ID 2 VALLEY CECE SUBQ/IM INTERNAL NJXS 1 MEDI VACCINE SKIN TEST 17458 [facility] 2 VALLEY CECE TUBERCULO INTERNAL SIS MEDI INTRADERM AL SEDIMENTA 70916 [facility] TION RATE 2 [facility] RBC INC INC NON-AUTOM ATED COLLECTIO 47838 [facility] N VENOUS 2 [facility] BLOOD INC INC VENIPUNCT URE ANTINUCLE 96884 [facility] AR 2 [facility] ANTIBODIE INC INC S NADINE BASIC 38212 [facility] METABOLIC 2 [facility] PANEL INC INC CALCIUM TOTAL COLLECTIO 32629 [facility] N VENOUS 2 [facility] BLOOD INC INC VENIPUNCT URE COMPREHEN 05877 [facility] SIVE 2 [facility] METABOLIC INC INC PANEL CARCINOEM 09558 [facility] BRYONIC 2 [facility] ANTIGEN INC INC CEA BLOOD 38123 [facility] COUNT [facility] COMPLETE INC INC AUTO&[place] [address] [facility] THYROID 2 [facility] STIMULAT[facility] [place] [address] [facility] AMYLASE [facility] [place] [address] [facility] LIPASE 2 [facility] INC INC NEBULIZER E0570 [facility] WITH 2 [facility] R EQUIPME EQUIPME INJECTION J2270 [facility] MORPHINE 2 Y Y SULFATE [facility] UP TO 10 MG THERAPEUT [id number] [facility] IC 2 Y Y INJECTION [facility] [place] [address] [facility] INFUSION 2 Y Y THERAPY/P [facility] ROPHYLAXI S /DX 1ST TO 1 HR COLLECTIO 70110 [facility] N VENOUS 2 Y Y BLOOD [facility] VENIPUNCT URE BASIC 46915 [facility] METABOLIC 2 Y Y PANEL [facility] CALCIUM TOTAL INJECTION J2405 [facility] [place] [address] [place] [address] [facility] MAXILLOFA 2 Y Y CIAL [facility] W/CONTRAS T MATERIAL BLOOD 25954 [facility] COUNT 2 Y Y COMPLETE [facility] AUTO&AUTO DIFRNTL WBC LOCM Q9967 [facility] [phone] 2 Y Y MG/ML [facility] IODINE CONCENTRA TION PER ML PREPJ& 69869 MARNI MARNI ALLERGEN 2 [facility] LOBATO IMMUNOTHE RAPY 1/DIGITAL FORENSIC ANALYST ANTIGEN PROF SVCS 40123 MARNI MARNI ALLG 2 [facility] LOBATO IMMNTX X W/PRV ALLGIC XTRCS NJXS NEBULIZER E0570 [facility] AMARAL WITH 2 HOME [facility] R EQUIPME EQUIPME PROF [facility] 21507 MARNI MARNI ALLG 2 LUIS ALFREDO LUIS ALFREDO IMMNTX X W/[place] [address] MARIN MARNI ALLG 2 [facility] ALFR[facility]O LUIS ALFREDO IMMNTX X W/PRV ALLGIC XTRCS NJXS NORMAL A4256 M E D M E D LOW AND 2 SUPPLIES SUPPLIES HIGH CALIBRATO R SOLUTION/ CHIPS BLD GLU A4253 M E D M E D TEST/REAG 2 SUPPLIES SUPPLIES T STRIPS HOME BLD GLU MON-50 LANCETS A4259 M E D M E D PER BOX 2 SUPPLIES SUPPLIES OF [address] [facility] 87503 MARNI MARNI ALLG 2 LUIS ALFREDO LUIS ALFREDO IMMNTX X W/[place] [address] MARNI MARNI ALLG 2 [facility]IS ALFREDO LUIS ALFREDO IMMNTX X W/PRV ALLGIC XTRCS NJXS ECG 42698 [facility] CHOWDHURY JR ROUTINE 2 [facility] W/LEAST P 12 LDS I&R ONLY RADIOLOGI 19782 [place] [facility] C 2 MEDICAL AYLA EXAMINATI IMAGING ON CHEST ASS SINGLE VIEW FRONTAL CREATINE 25620 [facility] KINASE MB 2 [facility] FRACTION INC INC ONLY BLOOD 41520 [facility] COUNT 2 [facility] COMPLETE INC INC AUTO&AUTO DIFRNTL WBC THER 32614 [facility] PROPH/DX 2 [facility] NJX IV INC INC PUSH SINGLE/1S T SBST/DRUG CREATINE 11169 [facility] KINASE 2 [facility] TOTAL INC INC ECG 93794 [facility] ROUTINE 2 [facility] ECG INC INC W/LEAST 12 LDS TRCG ONLY W/O I&[place] [address] [facility] TROPONIN 2 [facility] QUANTITAT INC INC ANNABELLA NATRIURET 29047 [facility] IC [facility] PEPTIDE INC INC COMPREHEN 12551 [facility] SIVE [facility] METABOLIC INC INC PANEL PROF [facility] 24796 MARNI MARNI ALLG 2 LUIS ALFREDO LUIS ALFREDO IMMNTX X W/PRV ALLGIC XTRCS NJXS PROF [facility] 86779 MARNI MARNI ALLG 2 [facility]IS ALFREDO LUIS ALFREDO IMMNTX X W/PRV ALLGIC XTRCS NJXS PROF [facility] 42105 MARNI MARNI ALLG 2 [facility] ALFREDO LUIS ALFREDO IMMNTX X W/PRV ALLGIC XTRCS NJXS INJECTION J2405 [facility] ONDANSETR INC INC ON HCL PER 1 MG 3D 25839 [place] [facility] RENDERING 2 MEDICAL AYLA IMAGING W/INTERP& ASS POSTPROC DIFF WORK STATION SUSCEPTIB 51237 [facility] LTY STDY 2 [facility] ANTIMICRB INC INC IAL MICRO/AGA R DILUTJ THERAPEUT 12779 [facility] IC [facility] INJECTION INC INC IV PUSH EACH NEW DRUG URNLS DIP 78352 [facility] MENDING 2 [facility] HEARTS STICK/TAB [place] [address] [place] [facility] ABDOMEN & 2 MEDICAL A[facility]LA PELVIS IMAGING W/O ASS CONTRAST MATERIAL THER 03888 [facility] PROPH/DX [facility] NJX IV INC INC PUSH SINGLE/1S T SBST/DRUG BLOOD 53503 [facility] COUNT 2 [facility] COMPLETE INC INC AUTO&AUTO DIFRNTL WBC COMPREHEN 62692 [facility] METABOLIC INC INC PANEL CULTURE 39416 [facility] BACTERIAL 2 [facility] INC INC QUANTTATI VE COLONY COUNT URINE CULTURE 91044 [facility] BCT 2 [facility] ISOL&PRSM INC INC PTV ID ISOLATE EA URINE PROF [facility] 62521 MARNI MARNI ALLG 2 LUIS ALFREDO LUIS ALFREDO IMMNTX X W/PRV ALLGIC XTRCS NJXS NEBULIZER E0570 CRISTIN AMARAL WITH 2 HOME HOME COMPRESSO MEDICAL MEDICAL R EQUIPME EQUIPME PROF [facility] 15827 MARNI MARNI ALLG 2 LUIS ALFREDO LUIS ALFREDO IMMNTX X W/PRV ALLGIC XTRCS NJXS PROF [facility] 50456 MARNI MARNI ALLG 2 LUIS ALFREDO LUIS ALFREDO IMMNTX X W/PRV ALLGIC XTRCS NJXS PROF [facility] 05699 MARNI MARNI ALLG 2 LUIS ALFREDO LUIS ALFREDO IMMNTX X W/PRV ALLGIC XTRCS NJXS PROF [facility] 40840 MARNI MARNI ALLG 2 LUIS ALFREDO LUIS ALFREDO IMMNTX X W/PRV ALLGIC XTRCS NJXS RADEX 11675 [place] [facility] FOOT 2 [facility] COMPLETE IMAGING MINIMUM 3 ASS VIEWS URNLS DIP 90507 [facility] STICK/TAB INC INC LET REAGENT AUTO MICROSCOP Y BLOOD 05292 [facility] COUNT 2 [facility] COMPLETE INC INC AUTO&AUTO DIFRNTL WBC SEDIMENTA 21212 [facility] TIKATI RATE 2 [facility] [place] [address] [facility] BLOOD/URI 2 [facility] C ACID INC INC COMPREHEN 60853 [facility] SIVE 2 [facility] METABOLIC INC INC PANEL PROF [facility] 96383 MARNI MARNI ALLG 2 LUIS ALFREDO LUIS ALFREDO IMMNTX X W/PRV ALLGIC XTRCS NJXS PROF [facility] 56297 MARNI MARNI ALLG 2 LUIS ALFREDO LUIS ALFREDO IMMNTX X W/PRV ALLGIC XTRCS NJXS NEBULIZER E0570 CRISTIN AMARAL WITH 2 HOME HOME [facility]ICAL MEDICAL R EQUIPME EQUIPME PROF [facility] 42962 MARNI MARNI ALLG 2 LUIS ALFREDO LUIS ALFREDO IMMNTX X W/PRV ALLGIC XTRCS NJXS PROF [facility] 34439 MARNI MARNI ALLG 2 LUIS ALFREDO LUIS ALFREDO IMMNTX X W/PRV ALLGIC XTRCS NJXS PROF [facility] 11942 MARNI MARNI ALLG 2 LUIS ALFREDO LUIS ALFREDO IMMNTX X W/PRV ALLGIC XTRCS NJXS PROF [facility] 89008 MARNI MARNI ALLG 2 LUIS ALFREDO LUIS ALFREDO IMMNTX X W/PRV ALLGIC XTRCS NJXS PROF [facility] 14968 MARNI MARNI ALLG 2 LUIS ALFREDO LUIS ALFREDO IMMNTX X W/PRV ALLGIC XTRCS NJXS PREPJ& 31749 MARNI MARNI ALLERGEN 2 LUIS ALFREDO LUIS ALFREDO IMMUNOTHE RAPY 1/DIGITAL FORENSIC ANALYST ANTIGEN SUSCEPTIB 94468 [facility] LTY STDY 2 [facility] ANTIMICRB INC INC IAL MICRO/AGA R DILUTJ PROF [facility] 71891 MARNI MARNI ALLG 2 LUIS ALFREDO LOBATO IMMNTX X W/PRV ALLGIC XTRCS NJXS LIPID 17429 [facility] PANEL 2 [facility] INC INC COLLECTIO 98440 [facility] N VENOUS 2 [facility] [place] [address] [facility] THYROID 2 [facility] STIMULATI INC INC NG HORMONE TSH BLOOD 32805 [facility] COUNT 2 [facility] COMPLETE INC INC AUTO&AUTO DIFRNTL WBC URNLS DIP 88907 [facility] STICK/TAB INC INC LET REAGENT AUTO MICROSCOP Y COMPREHEN 20736 [facility] SIVE 2 [facility] METABOLIC INC INC PANEL CULTURE 46527 [facility] BCT 2 [facility] ISOL&PRSM INC INC PTV ID ISOLATE EA URINE CULTURE 55771 [facility] BACTERIAL 2 [facility] INC INC QUANTTATI VE COLONY COUNT URINE SPMTRY 16719 MARNI MARNI W/VC 2 LUIS ALFREDO LOBATO EXPIRATOR Y LULU W/WO MXML VOL VNTJ PROF [facility] 70616 MARNI MARNI ALLG 2 LUIS ALFREDO LOBATO IMMNTX X W/PRV ALLGIC XTRCS NJXS PROF [facility] 20469 MARNI MARNI ALLG 2 LUIS ALFREDO LUIS ALFREDO IMMNTX X W/PRV ALLGIC XTRCS NJXS PROF [facility] 92083 MARNI MARNI ALLG 2 LUIS ALFREDO LUIS ALFREDO IMMNTX X W/PRV ALLGIC XTRCS NJXS NEBULIZER E0570 CRISTIN AMARAL WITH 2 HOME HOME [facility]ICAL R EQUIPME EQUIPME PRESSURIZ 96208 [facility] ED/NONPRE 2 [facility] SSURIZED INC INC INHALATIO N TREATMENT NONINVASI 02456 [facility] VE 2 [facility] EAR/PULSE INC INC OXIMETRY SINGLE DETER PROF [facility] 77816 MARNI MARNI ALLG 2 LUIS ALFREDO LUIS ALFREDO IMMNTX X W/PRV ALLGIC XTRCS NJXS INJECTION J2405 [facility] ONDANSETR INC INC ON HCL PER 1 MG COLLECTIO 23110 [facility] N VENOUS 2 [facility] BLOOD INC INC VENIPUNCT URE BLOOD 46785 [facility] COUNT 2 [facility] COMPLETE INC INC AUTO&AUTO DIFRNTL WBC GLUC BLD 12546 [facility] GLUC MNTR 2 [facility] DEV INC INC CLEARED FDA SPEC HOME USE COMPREHEN 31655 [facility] SIVE 2 [facility] METABOLIC INC INC [facility] G0378 [facility] OBSERVATI 2 [facility] ON INC INC SERVICE PER HOUR OBSERVATI 09612 [place] BESSON ON CARE 2 [facility] INTERNAL MED [facility] G0378 [facility] OBSERVATI 2 [facility] ON INC INC SERVICE PER HOUR COMPREHEN 05563 [facility] SIVE 2 [facility] METABOLIC INC INC PANEL CULTURE 37549 [facility] BACTERIAL 2 [facility] INC INC QUANTTATI VE COLONY COUNT URINE GLUC BLD 95050 [facility] GLUC MNTR 2 [facility] DEV INC INC CLEARED FDA SPEC HOME USE URNLS DIP 27077 [facility] 2 [facility] STICK/TAB INC INC LET REAGENT AUTO MICROSCOP Y URNLS DIP 40293 [place] 2 [facility] STICK/TAB INTERNAL INTERNAL LET RGNT MED MED NON-AUTO W/O MICRSCP BLOOD 70805 [facility] COUNT 2 [facility] COMPLETE INC INC AUTO&AUTO DIFRNTL WBC SEDIMENTA 05618 [facility] TION RATE 2 [facility] RBC INC INC NON-AUTOM ATED COLLECTIO 62486 [facility] N VENOUS 2 [facility] BLOOD INC INC VENIPUNCT URE INJECTION J2405 [facility] 2 [facility] HOSP ONDANSETR INC INC ON HCL PER 1 MG INITIAL 51176 [place] MCKEMIE OBSERVATI 2 [facility] ON INTERNAL CARE/DAY MED 30 MINUTES CUL BACT 35614 [facility] XCPT 2 [facility] URINE INC INC BLOOD/STO OL AEROBIC ISOL CUL BACT 33939 [facility] AEROBIC 2 [facility] ADDL INC INC METHS DEFINITIV E EA ISOL SUSCEPTIB 73786 [facility] LTY STDY 2 [facility] HOSP ANTIMICRB INC INC IAL MICRO/AGA R DILUTJ THERAPEUT 21731 [facility] IC 2 [facility] HOSP PROPHYLAC INC INC TIC/DX INJECTION SUBQ/IM PROF [facility] 42303 MARNI MARNI ALLG 2 LUIS ALFREDO LUIS ALFREDO IMMNTX X W/PRV ALLGIC XTRCS NJXS PROF [facility] 83421 MARNI MARNI ALLG 2 LUIS ALFREDO LUIS ALFREDO IMMNTX X W/PRV ALLGIC XTRCS NJXS 3D 06899 [facility] RENDERING 2 [facility] INC INC W/INTERP& POSTPROC DIFF WORK STATION COLLECTIO 25809 [facility] N VENOUS 2 [facility] BLOOD INC INC VENIPUNCT URE 3D 08807 [facility] RENDERING 2 [facility] W/INTERP INC INC & [place] [address] [facility] UREA 2 [facility] NIT[place]OG[place] [address] LEONA CORONEL HEAD/BRAI 2 MEDICAL AYLA N W/[place] [address] [facility] HEAD/BRAI 2 [facility] N W/O & INC INC W/CONTRAS T MATERIAL CT ORBIT 95230 [facility] MORRISUTCHER SELLA/POS 2 MEDICAL AYLA T IMAGING FOSSA/EAR ASS W/O & W/[place] [address] LEONA HOMER MAXILLOFA 2 MEDICAL AYLA CIAL W/[place] [address] [facility] MAXILLOFA 2 [facility] CIAL W/O INC INC & W/CONTRAS T MATERIAL CREATININ 58698 [facility] E BLOOD 2 [facility] INC INC LOCM Q9967 [facility] [phone] 2 [facility] MG/ML INC INC IODINE CONCENTRA TION PER ML LANCETS A4259 M E D M E D PER BOX 2 SUPPLIES SUPPLIES OF 100 REPL DEYSI A4233 M E D M E D ALKALINE 2 SUPPLIES SUPPLIES NOT J CELL OSCAR BG MON OWND PT NORMAL A4256 M E D M E D LOW AND 2 SUPPLIES SUPPLIES HIGH CALIBRATO R SOLUTION/ CHIPS BLD GLU A4253 M E D M E D TEST/REAG 2 SUPPLIES SUPPLIES T STRIPS HOME BLD GLU MON-50 SPRING-PO A4258 M E D M E D WERED 2 SUPPLIES SUPPLIES DEVICE FOR LANCET EACH PROF [facility] 94840 MARNI MARNI ALLG 2 LUIS ALFREDO LUIS ALFREDO IMMNTX X W/PRV ALLGIC XTRCS NJXS PROF [facility] 66196 MARNI MARNI ALLG 2 LUIS ALFREDO LUIS ALFREDO IMMNTX X W/PRV ALLGIC XTRCS NJXS VISUAL 50488 KENZIE ESPINO FIELD XM 2 LUCITA LANDRUM UNI/BI W/INTERP EXTENDED EXAM FUNDUS 57201 KENZIE ESPINO PHOTOGRAP 2 JAM JAM HY W/INTERPR ETATION & REPORT PREPJ& 82492 MARNI MARNI ALLERGEN 2 LUIS ALFREDO LUIS ALFREDO IMMUNOTHE RAPY 1/DIGITAL FORENSIC ANALYST ANTIGEN PROF [facility] 73301 MARNI MARNI ALLG 2 LUIS ALFREDO LUIS ALFREDO IMMNTX X W/PRV ALLGIC XTRCS NJXS PERCUTANE 07210 MARNI MANN OUS TESTS 2 LUIS ALFREDO BET W/ALLERGE ALVARADO EXTRACTS INTRACUTA 57115 MARNI MARNI NEOUS 2 LUIS ALFREDO LUIS ALFREDO TESTS W/ALLERGE ALVARADO EXTRACTS BRNCDILAT 19697 MARNI MARNI RSPSE 2 LUIS ALFREDO LUIS ALFREDO SPMTRY PRE&POST- BRNCDILAT ADMN DEMO&/POLLY 64824 MARNI MARNI L OF PT 2 LUIS ALFREDO LOBATO UTILIZ AERSL GEN/NEB/I NHLR/IP NEBULIZER E0570 CRISTIN AMARAL WITH 2 HOME HOME [facility]ICAL MEDICAL R [facility] [address] [place] [address] DAY INTERNAL MANAGEMEN MED T 30 MIN/< SBSQ [id number] CARE/DAY INTERNAL 25 MED MINUTES RADIOLOGI 46480 [facility] C EXAM 2 MEDICAL AYLA CHEST 2 IMAGING VIEWS ASS FRONTAL&L ATERAL INITIAL [address] CARE/DAY INTERNAL 50 MED MINUTES INJECTION J3301 [place] 2 [facility] TRIAMCINO INTERNAL INTERNAL LONE MEDI MEDI ACETONIDE NOS 10 MG INJECTION J0696 [place] MUSTAPHA 2 [place] [facility] CEFTRIAXO INTERNAL NE SODIUM MEDI PER 250 MG THERAPEUT 14933 [place] IC 2 [place] [facility] PROPHYLAC INTERNAL TIC/DX MEDI INJECTION SUBQ/IM BLOOD 61747 [facility] COUNT 2 [facility] COMPLETE INC INC AUTO&AUTO DIFRNTL WBC THER 64102 [facility] PROPH/DX 2 [facility] NJX IV INC INC PUSH SINGLE/1S T SBST/DRUG ECG 20513 [facility] LEMUS ROUTINE 2 [facility] W/LEAST P 12 LDS I&R ONLY CREATINE 73220 [facility] KINASE MB 2 [facility] FRACTION INC INC ONLY NATRIURET 59579 [facility] IC 2 [facility] [place] [address] [facility] TROPONIN 2 [facility] QUANTITAT INC INC [place] CREATINE 86304 [facility] KINASE 2 [facility] TOTAL INC INC ECG 68991 [facility] ROUTINE 2 [facility] ECG INC INC W/LEAST 12 LDS TRCG ONLY W/O I&R THERAPEUT 46266 [facility] IC 2 [facility] INJECTION INC INC IV PUSH EACH NEW DRUG RADIOLOGI 11764 [facility] Kumar 2 MEDICAL AYLA EXAMINATI IMAGING ON CHEST ASS SINGLE VIEW FRONTAL INJECTION J2405 [facility] 2 [facility] ONDANSETR INC INC ON HCL PER 1 MG COMPREHEN 60677 [facility] SIVE 2 [facility] METABOLIC INC INC PANEL OPHTHALMO 45915 KENZIE ESPINO SCPY 2 [place] JAM EXTENDED RETINAL DRAWING I&R 1ST DETERMINA 43743 KENZIE ESPINO TION 2 [place] JAM REFRACTIV E STATE NEBULIZER E0570 CRISTIN AMARAL WITH 2 HOME HOME COMPRESSO MEDICAL MEDICAL R EQUIPME EQUIPME NEBULIZER E0570 CRISTIN AMARAL WITH 2 HOME HOME COMPRESSO MEDICAL MEDICAL R EQUIPME EQUIPME ADMN SET A7003 YOUR YOUR SM VOL 2 PHARMACY PHARMACY NONFILTR VMTurbo PNEUMAT NEBULIZR DISPBL PHARM G0333 YOUR YOUR DISPEN 2 PHARMACY PHARMACY FEE INHAL VMTurbo RX; INITIAL 30-DAY SUPPLY ALBUTEROL J7613 YOUR YOUR INHAL 2 PHARMACY PHARMACY NON-CP VMTurbo PROD THRU DME U DOSE 1 MG NONINVASI [address] [place] [address] CECE EAR/PULSE INTERNAL OXIMETRY MEDI SINGLE DETER RADIOLOGI 77243 LEONA Kumar EXAM 2 MEDICAL AYLA CHEST 2 IMAGING VIEWS ASS FRONTAL&L ATERAL RADIOLOGI 61578 [facility] C EXAM 2 [facility] CHEST 2 INC INC VIEWS FRONTAL&L ATERAL CREATINE 99564 [facility] KINASE 2 [facility] [place] [address] [facility] TROPONIN 2 [facility] QUANTITAT INC INC [place] BLOOD 81748 [facility] COUNT 2 [facility] COMPLETE INC INC AUTO&AUTO DIFRNTL WBC IAADI 15804 [facility] INFLUENZA 2 [facility] B VIRUS INC INC IAADI 95716 [facility] INFFLUENZ 2 [facility] A A VIRUS INC INC CREATINE 92328 [facility] KINASE MB 2 [facility] FRACTION INC INC ONLY PRESSURIZ 63069 [facility] ED/NONPRE 2 [facility] SSURIZED [place] [address] [facility] INFUSION 2 [facility] THERAPY/P INC INC ROPHYLAXI S /DX 1ST TO 1 HR THERAPEUT 11831 [facility] IC 2 [facility] INJECTION INC INC IV PUSH EACH NEW DRUG COMPREHEN 23067 [facility] SIVE 2 [facility] METABOLIC INC INC PANEL LANCETS A4259 M E D M E D PER BOX 1 SUPPLIES SUPPLIES OF 100 NORMAL A4256 M E D M E D LOW AND 1 SUPPLIES SUPPLIES HIGH CALIBRATO R SOLUTION/ CHIPS BLD GLU A4253 M E D M E D TEST/REAG 1 SUPPLIES SUPPLIES T STRIPS HOME BLD GLU MON-50 LARYNGOSC 48899 EAR, NOSE SHASHY OPY 1 AND SOBEIDA FLEXIBLE THROAT DIAGNOSTI SPECIAL C SMOKE TOB G0436 EAR, NOSE EAR, NOSE 1 AND AND CESSATION THROAT THROAT CNSL SPECIAL SPECIAL PT; INTRMED 3-10 [place] [address] [facility] INFUSION 1 [facility] THERAPY/P INC INC ROPHYLAXI S /DX 1ST [place] [address] [facility] INFUSION 1 [facility] THERAPY INC INC PROPHYLAX IS/DX EA HOUR ESOPHAGOG 05900 C SOPHIE LYONS ASTRODUOD 1 ELOY MAHER MD [facility] TRANSORAL DIAGNOSTI C GLUC BLD 55629 [facility] GLUC MNTR 1 [facility] HOSP DEV INC INC CLEARED FDA SPEC HOME USE LARYNGOSC 46759 EAR, NOSE SHASHY OPY 1 AND SOBEIDA FLEXIBLE [place] [address] COMBINED COMBINED BLOOD/URI 1 PHYSICIAN PHYSICIAN C ACID S LA S LA COLLECTIO 01749 COMBINED COMBINED N VENOUS 1 PHYSICIAN PHYSICIAN BLOOD S LA S LA VENIPUNCT URE BASIC 61280 COMBINED COMBINED METABOLIC 1 PHYSICIAN PHYSICIAN PANEL S LA S LA CALCIUM TOTAL HEMOGLOBI 47710 COMBINED COMBINED N 1 PHYSICIAN PHYSICIAN GLYCOSYLA S LA S LA ML A1C CT SOFT 47448 [facility] TISSUE 1 [facility] HOSP NECK W/O INC INC CONTRAST MATERIAL 3D 91910 [facility] RENDERING 1 [facility] HOSP INC INC W/INTERP& POSTPROC DIFF WORK STATION CONTINUOU E0601 CRISTIN CRISTIN S 1 HOME HOME POSITIVE MEDICAL MEDICAL AIRWAY EQUIPME EQUIPME PRESSURE DEVICE COMPREHEN 69364 [facility] SIVE 1 [facility] METABOLIC INC INC PANEL COLLECTIO 12852 [facility] N VENOUS 1 [facility] [place] [address] [facility] FERRITIN 1 [facility] [place] [address] [facility] THYROID 1 [facility] HOSP STIMULATI INC INC NG HORMONE TSH BLOOD 72953 [facility] COUNT 1 [facility] COMPLETE INC INC AUTO&[place] [address] DERMATOLO NARGIS II SURG 1 GY [facility] GROSS&SHANTHI ROSCOPIC EXAM REPL DEYSI A4233 M E D M E D ALKALINE 1 SUPPLIES SUPPLIES NOT J CELL OSCAR BG MON OWND PT NORMAL A4256 M E D M E D LOW AND 1 SUPPLIES SUPPLIES HIGH CALIBRATO R SOLUTION/ CHIPS LANCETS A4259 M E D M E D PER BOX 1 SUPPLIES SUPPLIES OF 100 BLD GLU A4253 M E D M E D TEST/REAG 1 SUPPLIES SUPPLIES T STRIPS HOME BLD GLU MON-50 SPRING-PO A4258 M E D M E D WERED 1 SUPPLIES SUPPLIES DEVICE FOR LANCET EACH THERAPEUT 72197 [facility] IC 1 [facility] INJECTION INC INC IV PUSH EACH NEW DRUG PRESSURIZ 32830 [facility] ED/NONPRE 1 [facility] HOSP SSURIZED INC INC INHALATIO N TREATMENT GROUND A0425 [facility] MILEAGE 1 AMBULANCE AMBULANCE PER SERVICE SERVICE STATUTE MILE AMBULANCE A0429 [facility] SERVICE 1 AMBULANCE AMBULANCE BLS SERVICE SERVICE EMERGENCY TRANSPORT BLOOD 23621 [facility] COUNT 1 [facility] COMPLETE INC INC AUTO&AUTO DIFRNTL WBC THER 13870 [facility] PROPH/DX 1 [facility] NJX IV INC INC PUSH SINGLE/1S T SBST/DRUG RADIOLOGI 21004 [place] [facility] C EXAM 1 MEDICAL AYLA CHEST 2 IMAGING VIEWS ASS FRONTAL&L ATERAL COMPREHEN 33803 [facility] SIVE 1 [facility] METABOLIC INC INC PANEL CULTURE 83733 [facility] BACTERIAL 1 [facility] INC INC QUANTTATI VE COLONY COUNT URINE CULTURE 41478 [facility] BCT 1 [facility] ISOL&PRSM INC INC PTV ID ISOLATE EA URINE SUSCEPTIB 86546 [facility] LTY STDY 1 [facility] ANTIMICRB INC INC IAL MICRO/AGA R DILUTJ CHIROPRAC 27142 KAVYA [place] TIC 1 JANET JANET MANIPULAT [place] SPINAL 1-2 REGIONS CONTINUOU E0601 CRISTIN AMARAL S 1 HOME HOME POSITIVE MEDICAL MEDICAL AIRWAY EQUIPME EQUIPME PRESSURE DEVICE NON-INVAS 50672 [facility] HOMER [place] 1 MEDICAL AYLA PHYSIOLOG IMAGING IC STUDY ASS EXTREMITY 3 LEVLS DUP-SCAN 43403 [facility] X[facility] VEINS 1 MEDICAL AYLA COMPLETE IMAGING ASS BILATERAL STUDY DUP-SCAN 82770 [facility] XTR VEINS 1 [facility] INC INC UNILATERA L/LIMITED STUDY DEBRIDEME 98836 PAWSAT PAWSAT NT NAIL 1 MAR MAR ANY METHOD 6/> CHIROPRAC 22069 KAVYA HOFF TIC 1 JANET JANET MANIPULAT [place] SPINAL 1-2 REGIONS CONTINUOU E0601 CRISTIN AMARAL S 1 HOME HOME POSITIVE MEDICAL MEDICAL AIRWAY EQUIPME EQUIPME PRESSURE DEVICE COMPREHEN 85703 [facility] SIVE 1 [facility] METABOLIC INC INC PANEL CULTURE 44191 [facility] BCT 1 [facility] ISOL&PRSM INC INC PTV ID ISOLATE EA URINE URNLS DIP 09940 [facility] 1 [facility] STICK/TAB INC INC LET REAGENT AUTO MICROSCOP Y THERAPEUT 94739 [facility] IC 1 [facility] PROPHYLAC INC INC TIC/DX INJECTION SUBQ/[place] [address] [facility] LIPASE 1 [facility] INC INC BLOOD 23524 [facility] RABAGOON COUNT 1 [facility] COMPLETE INC INC AUTO&[place] [address] [facility] AMYLASE 1 [facility] INC INC SUSCEPTIB 96721 [facility]KATI T[facility] LTY STDY 1 [facility] ANTIMICRB INC INC IAL MICRO/AGA R DILUTJ CULTURE 22395 [facility] BACTERIAL 1 [facility] INC INC QUANTTATI VE COLONY COUNT URINE CHIROPRA 52738 KAVYA HOFF TIC 1 JANET JANET MANIPULAT [place] SPINAL 1-2 REGIONS COMPREHEN 66779 [facility] SIVE 1 [facility] METABOLIC INC INC PANEL APPL 17890 [facility] MODALITY 1 [facility] 1/> AREAS INC INC ULTRASOUN D EA 15 MIN E-STIM [id number] [facility] 1/> AREAS 1 [facility] OTH THAN INC INC WND CARE PART TX PLAN 3D 03909 [place] [facility] RENDERING 1 MEDICAL AYLA IMAGING W/INTERP& ASS POSTPROC DIFF WORK STATION COLLECTIO 15841 [facility] N VENOUS 1 [facility] BLOOD INC INC VENIPUNCT URE LIPID 19590 [facility] PANEL 1 [facility] INC INC THERAPEUT 50936 [facility] IC PX 1/> 1 [facility] AREAS INC INC [place]ACH 15 [place] [address] [facility] THYROID 1 [facility] STIMULATI INC INC NG HORMONE TSH HEMOGLOBI 94844 [facility] N 1 [facility] [place] [address] [place] [address] [facility] CORONEL ABDOMEN & 1 MEDICAL A[facility]LA PELVIS IMAGING W/CONTRAS ASS T MATERIAL COMPUTER- [id number] [facility] AIDED 1 [facility] DETECTION INC INC SCREENING MAMMOGRAP HY SCREENING [id number] [facility] 1 [facility] MAMMOGRAP INC INC HY DURGA INCL CAD WHEN PERFORMD E-STIM [id number] [facility] 1/> AREAS 1 [facility] OTH THAN INC INC WND CARE PART TX PLAN APPL 44511 [facility] MODALITY 1 [facility]/> AREAS INC INC ULTRASOUN D EA 15 MIN THERAPEUT 14999 [facility] IC PX 1/> 1 [facility] INC INC EACH 15 MIN EXERCISES THERAPEUT 11465 [facility] IC PX 1/> 1 [facility] AREAS INC INC EACH 15 MIN EXERCISES APPL 63629 [facility] MODALITY 1 [facility] 1/> AREAS INC INC ULTRASOUN D EA 15 MIN E-STIM [id number] [facility] 1/> AREAS 1 [facility] OTH THAN INC INC WND CARE PART TX PLAN CHIROPRAC 10524 KAVYA HOFF TIC 1 JANET JANET MANIPULAT ANNABELLA [place] SPINAL 1-2 REGIONS E-STIM G0283 [facility] 1/> AREAS 1 [facility] OTH THAN INC INC WND CARE PART TX PLAN APPL 05961 [facility] MODALITY 1 [facility] 1/> AREAS INC INC ULTRASOUN D EA 15 MIN THERAPEUT 31597 [facility] IC PX 1/> 1 [facility] AREAS INC INC EACH 15 MIN EXERCISES PHYSICAL 67018 [facility] THERAPY 1 [facility] EVALUATIO INC INC N CHIROPRAC 37236 [place] TIC 1 JANET JANET MANIPULAT ANNABELLA [place] SPINAL 1-2 REGIONS CONTINU E0601 CRISTIN AMARAL S 1 HOME HOME POSITIVE MEDICAL MEDICAL AIRWAY EQUIPME EQUIPME PRESSURE DEVICE RADEX 18919 [place] CORONEL UPPER GI 1 MEDICAL AYLA W/WO IMAGING GLUCAGON/ ASS DELAY IMAGES W/KUB CHIROPRA 37618 [place] TIC 1 JANET JANET MANIPULAT ANNABELLA [place] SPINAL 1-2 REGIONS CHIROPRA 09376 [place] TIC 1 JANET JANET MANIPULAT ANNABELLA [place] SPINAL 1-2 REGIONS NORMAL A4256 M E D M E D LOW AND 1 SUPPLIES SUPPLIES HIGH CALIBRATO R SOLUTION/ CHIPS LANCETS A4259 M E D M E D PER BOX 1 SUPPLIES SUPPLIES OF 100 BLD GLU A4253 M E D M E D TEST/REAG 1 SUPPLIES SUPPLIES T STRIPS HOME BLD GLU MON-50 CHIROPRA 40403 [place] TIC 1 JANET JANET MANIPULAT ANNABELLA [place] SPINAL 1-2 REGIONS CHIROPRA 89500 [place] TIC 1 JANET JANET MANIPULAT ANNABELLA [place] SPINAL 1-2 REGIONS CHIROPRA 06653 [place] TIC 1 JANET JANET MANIPULAT ANNABELLA [place] SPINAL 1-2 REGIONS CHIROPRA 04206 [place] TIC 1 JANET JANET MANIPULAT ANNABELLA TX SPINAL 1-2 REGIONS CHIROPRA 74613 [place] TIC 1 JANET JANET MANIPULAT [...] W/POS EQUIPME EQUIPME ARWAY PRESS DEVICE EA TUBING A7037 CRISTINDIGNA AMARAL USED WITH 1 HOME HOME POSITIVE MEDICAL MEDICAL AIRWAY EQUIPME EQUIPME PRESSURE DEVICE HUMDIFIR E0562 CRISTIN AMARAL HEATED 1 HOME HOME USED MEDICAL MEDICAL W/POS EQUIPME EQUIPME ARWAY PRESSURE DEVICE HEADGEAR A7035 CRISTIN AMARAL USED 1 HOME HOME W/POSITIV MEDICAL MEDICAL E AIRWAY EQUIPME EQUIPME PRESSURE DEVICE CHIROPRAC 35434 KAVYA DONGDING TIC 1 JANET JANET MANIPULAT ANNABELLA [place] SPINAL 1-2 REGIONS CHIROPRAC 62957 KAVYA DONGDING TIC 1 JANET JANET MANIPULAT ANNABELLA [place] SPINAL 1-2 REGIONS POLYSOM 48282 [facility] 6/>YRS 1 DEIDRA DEIDRA SLEEP W/CPAP 4/> ADDL JENNIE ATTND POLYSOM 73741 [facility] 6/>YRS 1 DEIDRA DEIDRA SLEEP 4/> ADDL JENNIE ATTND POLYSOM 24586 [facility] 6/>YRS 1 [facility] SLEEP 4/> INC INC ADDL JENNIE ATTND MRI 39300 [place] [facility] SPINAL 1 MED[facility] CANAL IMAGING LUMBAR ASS W/O CONTRAST MATERIAL 3D 26717 [place] [facility] RENDERING 1 MEDICAL AYLA W/INTERP IMAGING & ASS POSTPROCE SS SUPERVISI ON SEDIMENTA 93714 [facility] TION RATE 1 [facility] RBC INC INC NON-AUTOM ATED BLOOD 87996 [facility] COUNT 1 [facility] COMPLETE INC INC AUTO&[place] [address] [facility] THYROID 1 [facility] STIMULATI INC INC NG HORMONE TSH CREATINE 45770 [facility] KINASE 1 [facility] TOTAL INC INC COLLECTIO 84351 [facility] N VENOUS 1 [facility] BLOOD INC INC VENIPUNCT URE COMPREHEN 91790 [facility] SIVE 1 [facility] METABOLIC INC INC PANEL CULTURE 13276 [facility] BACTERIAL 1 [facility] INC INC QUANTTATI VE COLONY COUNT URINE AMBULANCE A0429 [facility] SERVICE 1 AMBULANCE AMBULANCE BLS SERVICE SERVICE EMERGENCY TRANSPORT GROUND A0425 [facility] AM[facility]ULANCE PER SERVICE SERVICE STATUTE MILE THERAPEUT 27322 BRANDON TAYLOR IC 1 [facility] INJECTION INC INC IV PUSH EACH NEW DRUG URNLS DIP 87562 BR[facility] T[facility] 1 [facility]P STICK/TAB INC INC LET REAGENT AUTO MICROSCOP Y RADEX 64007 BRANDON TAYLOR SPINE 1 [facility]P LUMBOSACR INC INC AL 2/3 VIEWS RADIOLOGI 29098 [facility] C EXAM 1 MEDICAL AYLA CHEST 2 IMAGING VIEWS ASS FRONTAL&L ATERAL THER 63236 BR[facility]ON T[facility] PROPH/DX 1 [facility] NJX IV INC INC PUSH SINGLE/1S T SBST/DRUG BLOOD 51588 BRANDON TAYLOR COUNT 1 [facility] COMPLETE INC INC AUTO&AUTO DIFRNTL WBC COMPREHEN 09000 BRANDON TAYLOR SIVE 1 [facility] METABOLIC INC INC PANEL CYANOCOBA 73021 BR[facility] T[facility] PRATEEK 1 [facility]P VITAMIN INC INC B-12 HEMOGLOBI 15596 BRANDON T[facility] N 1 [facility]P GLYCOSYLA INC INC ML A1C COLLECTIO 84042 [facility] N VENOUS 1 [facility] BLOOD INC INC VENIPUNCT URE GROUND A0425 [facility] 1 AMBULANCE AMBULANCE PER SERVICE SERVICE STATUTE MILE RADIOLOGI 42199 LEONA CORONEL C 1 MEDICAL AYLA EXAMINATI IMAGING ON CHEST ASS SINGLE VIEW FRONTAL ECG 19324 BRANDON LEMUS ROUTINE 1 [facility] W/LEAST P 12 LDS I&R ONLY AMB A0427 [facility] SERVICE 1 AMBULANCE AMBULANCE ALS SERVICE SERVICE EMERGENCY TRANSPORT LEVEL 1 TECHNETIU A9502 BRANDON Wayne TC-99M 1 [facility] TETROFOSM INC INC IN DX PER STUDY DOSE CV STRS 22377 BR[facility] TST 1 [facility] XERS&/OR INC INC RX CONT ECG TRCG ONLY MYOCARDIA 42900 [facility] L SPECT 1 [facility] MULTIPLE INC INC STUDIES 3D 14335 [place] [facility] 1 MEDICAL AYLA IMAGING W/INTERP& [place] [address] BR[facility] T[facility] HEAD/BRAI 1 [facility] N W/O & INC INC W/CONTRAS T MATERIAL CT SOFT 72446 [facility] TISSUE 1 MEDICAL MEDICAL NECK IMAGING IMAGING W/[place] [address] [place] [facility] HEAD/BRAI 1 MEDICAL AYLA N IMAGING W/CONTRAS ASS T MATERIAL 3D 72522 BR[facility] T[facility] RENDERING 1 [facility] W/INTERP INC INC & [place] [address] BRANDON TAYLOR UREA 1 [facility] NITROGEN INC INC QUANTITAT ANNABELLA CREATININ 00940 BRNADON TAYLOR E BLOOD 1 [facility] INC INC COLLECTIO 47799 [facility] N VENOUS 1 [facility] BLOOD INC INC VENIPUNCT URE COLONOSCO 85902 C SOPHIE SHER FLX DX 1 ELOY GAMBOA W/FLORENCIO S[place] [address] BR[facility] T[facility] INFUSION 1 [facility] THERAPY/P INC INC ROPHYLAXI S /DX 1ST TO 1 [place] [address] BR[facility] INFUSION 1 [facility] THERAPY INC INC PROPHYLAX IS/DX EA HOUR GLUC BLD 73947 BR[facility] T[facility] GLUC MNTR 1 [facility] DEV INC INC CLEARED FDA SPEC HOME USE ANES 26306 [facility] 1 ANESTH INTESTINE OF THE BLUE ENDOSCOPY DISTAL [facility] A4258 M E D M E D WERED 1 SUPPLIES SUPPLIES DEVICE FOR LANCET EACH BLD GLU A4253 M E D M E D TEST/REAG 1 SUPPLIES SUPPLIES T STRIPS HOME BLD GLU SUN- REPL DEYSI A4233 M E D M E D ALKALINE 1 SUPPLIES SUPPLIES NOT J CELL OSCAR BG MON OWND PT NORMAL A4256 M E D M E D LOW AND 1 SUPPLIES SUPPLIES HIGH CALIBRATO R SOLUTION/ CHIPS LANCETS A4259 M E D M E D PER BOX 1 SUPPLIES SUPPLIES OF 100 RADIOLOGI 01445 BRANDON Kumar EXAM 1 [facility] CHEST 2 INC INC VIEWS FRONTAL&L ATERAL OPHTH 74429 [facility]LLEN HALLMAN [facility] MEDICAL 1 VISION XM&EVAL COMPRHNSV ESTAB PT 1/> BLOOD 19446 BR[facility] T[facility] COUNT 1 [facility] COMPLETE INC INC AUTO&AUTO DIFRNTL WBC COLLECTIO 84612 BR[facility] T[facility] N VENOUS 1 [facility] BLOOD INC INC VENIPUNCT URE BASIC 01221 BRANDON T[facility] METABOLIC 1 [facility]P PANEL INC INC CALCIUM TOTAL RADIOLOGI 75101 [facility] EXAM 1 MEDICAL AYLA CHEST 2 IMAGING VIEWS ASS FRONTAL&L ATERAL BLD GLU A4253 [facility]CS CCS TEST/REAG 0 MEDICAL MEDICAL T STRIPS HOME BLD 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 FOR LANCET EACH LANCETS A4259 CCS CCS PER BOX 0 MEDICAL MEDICAL OF 100 NORMAL A4256 CCS CCS LOW AND 0 MEDICAL MEDICAL HIGH CALIBRATO R SOLUTION/ CHIPS REPL DEYSI A4233 CCS CCS ALKALINE 0 MEDICAL MEDICAL NOT J CELL OSCAR BG MON OWND PT LANCETS A4259 SECURE SECURE PER BOX 0 CARE CARE OF 100 MEDICAL MEDICAL NEWDALE-PO A4258 SECURE SECURE WERED 0 CARE CARE DEVICE MEDICAL MEDICAL FOR LANCET EACH BLD GLU A4253 SECURE SECURE TEST/REAG 0 CARE CARE T STRIPS MEDICAL MEDICAL HOME BLD GLU SUN-50 NORMAL A4256 SECURE SECURE LOW AND 0 CARE CARE HIGH MEDICAL MEDICAL CALIBRATO R SOLUTION/ CHIPS BLD GLU E2100 SECURE SECURE MONITOR 0 CARE CARE W/INTEGRA MEDICAL MEDICAL ML VOICE SYNTHESIZ ER RADIOLOGI 73355 [facility] C 0 [facility] EXAMINATI INC INC ON KNEE 3 VIEWS BASIC 88829 BR[facility] T[facility] METABOLIC 0 [facility] [place] [address] BR[facility] T[facility] INFUSION 0 [facility] HYDRATION INC INC INITIAL 31 MIN-1 HOUR BLOOD 74564 BR[facility] T[facility]OR COUNT 0 [facility] COMPLETE INC INC AUTO&AUTO DIFRNTL WBC RADIOLOGI 99334 [facility] C 0 [facility] EXAMINATI INC INC ON CHEST SINGLE VIEW FRONTAL HEMOGLOBI 76416 [facility] N 0 [facility] GLYCOSYLA INC INC ML A1C URNLS DIP 04411 [facility] 0 [facility] STICK/TAB INC INC LET REAGENT AUTO MICROSCOP Y CULTURE 93901 BR[facility] T[facility] BACTERIAL 0 [facility] INC INC QUANTTATI VE COLONY COUNT URINE PRTBLE E0431 CYNMIGUEL JONANA GASEOUS 9 HOME HOME O2 SYS MEDICAL MEDICAL RENT; EQUIPMENT EQUIPMENT FLWMTR HUMIDFR&M ASK O2 CONC 1 E1390 EVELYN RIVAS [place] 9 HOME HOME 85%/>02 MEDICAL MEDICAL CONC AT EQUIPMENT EQUIPMENT PRSC FLW RATE SCR G0124 PATHOLOGY PATHOLOGY CYTOPATH 9 & & CERV/VAG CYTOLOGY CYTOLOGY THIN LAY LAB LAB PREP INTEPR PHYS SCR G0145 PATHOLOGY PATHOLOGY CYTOPATH 9 & & CERV/VAG CYTOLOGY CYTOLOGY SCR LAB LAB AUTO&MNL RSCR PHYS IADNA 59775 PATHOLOGY PATHOLOGY PAPILLOMA 9 & & VIRUS CYTOLOGY CYTOLOGY HUMAN LAB LAB AMPLIFIED PROBE TQ ALBUTEROL J7620 [facility]5 9 PHARMACY PHARMACY MG & 3938 3938 IPRATROPI UM BROM TO 0.5 MG RADIOLOGI 53858 José CACERES EXAM 9 MEDICAL FREDO CHEST 2 IMAGING VIEWS ASSOCIATE FRONTAL&L S ATERAL PHARM G0333 [facility] DISPEN 9 PHARMACY PHARMACY FEE INHAL 6443 3931 RX; INITIAL 30-DAY SUPPLY PRESSURIZ 59789 [facility] PR[facility], ED/NONPRE 9 [facility] SSURIZED INTERNAL INHALATIO MED N TREATMENT PRESSURIZ 77336 [facility], ED/NONPRE 9 [facility] A SSURIZED INTERNAL INHALATIO MED N TREATMENT O2 CONC 1 E1390 EVELYN RIVAS [place] 9 HOME HOME 85%/>02 MEDICAL MEDICAL CONC AT EQUIPMENT EQUIPMENT PRSC FLW RATE PRTBLE E0431 EVELYN RIVAS GASEOUS 9 HOME HOME O2 SYS MEDICAL MEDICAL RENT; EQUIPMENT EQUIPMENT FLWMTR HUMIDFR&M ASK CULTURE 93893 BR[facility] BACTERIAL 9 [facility] INC INC QUANTTATI VE COLONY COUNT URINE URNLS DIP 12029 [facility] 9 [facility] STICK/TAB INC INC LET REAGENT AUTO MICROSCOP Y IAADI 61540 BR[facility] T[facility] INFFLUENZ 9 [facility] A A VIRUS INC INC IAADI 17053 [facility] INFLUENZA 9 [facility] B VIRUS INC INC THERAPEUT 10360 EVELYN ESCOBAR, IC PX 1/> 9 FAMILY LILIYA C AREAS CHIROPRAC EACH 15 TIC MIN EXERCISES APPL 29707 EVELYN ESCOBAR, MODALITY 9 FAMILY LILIYA C 1/> AREAS CHIROPRAC ELEC TIC STIMJ EA 15 MIN APPL 23161 [place] ESCOBAR, MODALITY 9 FAMILY LILIYA C 1/> AREAS CHIROPRAC TRACTION TIC MECHANICA L CHIROPRAC 43733 [place] ESCOBAR, TIC 9 FAMILY LILIYA C MANIPULAT CHIROPRAC ANNABELLA TX TIC SPINAL 3-4 REGIONS CHIROPRAC 68059 [place] ESCOBAR, TIC 9 FAMILY LILIYA C MANIPULAT CHIROPRAC ANNABELLA TX TIC SPINAL 3-4 REGIONS APPL 72930 CYNMIGUEL ESCOBAR, MODALITY 9 FAMILY LILIYA C 1/> AREAS CHIROPRAC TRACTION TIC MECHANICA L APPL 86462 [place] ESCOBAR, MODALITY 9 FAMILY LILIYA C 1/> AREAS CHIROPRAC ELEC TIC STIMJ EA 15 MIN THERAPEUT 61323 [place] ESCOBAR, IC PX 1/> 9 FAMILY LILIYA C AREAS CHIROPRAC EACH 15 TIC MIN EXERCISES THERAPEUT 72666 [place] ESCOBAR, IC PX 1/> 9 FAMILY LILIYA C AREAS CHIROPRAC EACH 15 TIC MIN EXERCISES APPL 37989 [place] ESCOBAR, MODALITY 9 FAMILY LILIYA C 1/> AREAS CHIROPRAC ELEC TIC STIMJ EA 15 MIN APPL 60187 [place] ESCOBAR, MODALITY 9 FAMILY LILIYA C 1/> AREAS CHIROPRAC TRACTION TIC MECHANICA L CHIROPRAC 64115 [place] ESCOBAR, TIC 9 FAMILY LILIYA C MANIPULAT CHIROPRAC ANNABELLA TX TIC SPINAL 3-4 REGIONS CHIROPRAC 81440 [place] ESCOBAR, TIC 9 FAMILY LILIYA C MANIPULAT CHIROPRAC ANNABELLA TX TIC SPINAL 3-4 REGIONS SELF-CARE 14250 EVELYN ESCOBAR, /HOME 9 FAMILY LILIYA C MGMT CHIROPRAC TRAINING TIC EACH 15 MINUTES APPL 94036 [place] ESCOBAR, MODALITY 9 FAMILY LILIYA C 1/> AREAS CHIROPRAC TRACTION TIC MECHANICA L APPL 64423 [place] ESCOBAR, MODALITY 9 FAMILY LILIYA C 1/> AREAS CHIROPRAC ELEC TIC STIMJ EA 15 MIN THERAPEUT 26666 CYNMIGUEL ESCOBAR, IC PX 1/> 9 FAMILY LILIYA C AREAS CHIROPRAC EACH 15 TIC MIN EXERCISES INJ J0702 LEANA DUEÑAS, BETAMETHA 9 CHELSY W CHELSY W SONE ACETATE & PHOSPHATE 3 MG INITIAL 98088 [facility] 9 Y OF CHERYL CARE/DAY [place] A 70 INTERNAL MINUTES MEDICINE ECG 18361 BUNNY JOHNSON, ROUTINE 9 MEDICAL SIMBA C ECG SERV W/LEAST FOUNDATIO 12 LDS I&R ONLY RADIOLOGI 92107 BUNNY SAENZ C EXAM 9 MEDICAL FORTINO G CHEST 2 SERV VIEWS FOUNDATIO FRONTAL&L ATERAL O2 CONC 1 E1390 EVELYN RIVAS [place] 9 HOME HOME 85%/>02 MEDICAL MEDICAL CONC AT EQUIPMENT EQUIPMENT PRSC FLW RATE PRTBLE E0431 CYNMIGUEL JONANA GASEOUS 9 HOME HOME O2 SYS MEDICAL MEDICAL RENT; EQUIPMENT EQUIPMENT FLWMTR HUMIDFR&M ASK OBSERVATI 89830 [place] BESSON, ON CARE 9 [place] A DISCHARGE INTERNAL MED MANAGEMEN T INITIAL 20707 [facility] [facility], OBSERVATI 9 [place] A ON INTERNAL CARE/DAY MED 30 MINUTES CULTURE 88689 [facility] BACTERIAL 9 [facility] INC INC QUANTTATI VE COLONY COUNT URINE COMPREHEN 05081 [facility] SIVE 9 [facility] METABOLIC INC INC PANEL URNLS DIP 96852 [facility] 9 [facility] STICK/TAB INC INC LET REAGENT AUTO MICROSCOP Y BLOOD 97557 [facility] COUNT 9 [facility] COMPLETE INC INC AUTO&AUTO DIFRNTL WBC ECG 91591 CARDIOLOG [place], ROUTINE 9 Y KHURRAM A ECG ASSOCIATE W/LEAST S OF 12 [facility] I&R ONLY SBSQ 53606 [facility] 9 CARE/DAY 15 MINUTES SBSQ 77570 [facility] 9 CARE/DAY 15 MINUTES O2 CONC 1 E1390 EVELYN RIVAS [place] 9 HOME HOME 85%/>02 MEDICAL MEDICAL CONC AT EQUIPMENT EQUIPMENT PRSC FLW RATE PRTBLE E0431 EVELYN RIVAS GASEOUS 9 HOME HOME O2 SYS MEDICAL MEDICAL RENT; EQUIPMENT EQUIPMENT FLWMTR HUMIDFR&M ASK SBSQ 03143 [facility] 9 CARE/DAY 15 MINUTES SBSQ 57825 [facility] 9 CARE/DAY 15 MINUTES SBSQ 40996 [facility] 9 CARE/DAY 15 MINUTES ECG 92623 CARDIOLOG [place] ROUTINE 9 Y , D L ECG ASSOCIATE W/LEAST S OF 12 [facility] I&R ONLY INITIAL 13024 [facility] 9 CARE/DAY 30 MINUTES RADIOLOGI 89822 José CACERES 9 MEDICAL FREDO EXAMINATI IMAGING ON CHEST ASSOCIATE SINGLE S VIEW FRONTAL AMB A0422 JULEE LADD OXYGEN&O2 9 AMBULANCE AMBULANCE SUPPLIES SERVICE SERVICE LIFE SUSTAININ G SITUATION AMBULANCE A0429 [facility] SERVICE 9 AMBULANCE AMBULANCE BLS SERVICE SERVICE EMERGENCY TRANSPORT GROUND A0425 [facility]ULANCE AMBULANCE PER SERVICE SERVICE STATUTE MILE BASIC 86818 BRANDON TAYLOR METABOLIC 9 [facility] [address] BR[facility] T[facility] INFUSION 9 [facility] THERAPY/P INC INC ROPHYLAXI S /DX 1ST TO 1 HR BLOOD 61548 [facility] COUNT 9 [facility] COMPLETE INC INC AUTO&AUTO DIFRNTL WBC KETONE 79727 BRANDON TAYLOR BODIES 9 [facility] SERUM INC INC QUALITATI VE GLUC BLD 09998 BR[facility] T[facility]OR GLUC MNTR 9 [facility] DEV INC INC CLEARED FDA SPEC HOME USE THERAPEUT 66282 BR[facility] T[facility] IC 9 [facility] PROPHYLAC INC INC TIC/DX INJECTION SUBQ/IM O2 CONC 1 E1390 EVELYN JONANA DEL [place] 9 HOME HOME 85%/>02 MEDICAL MEDICAL CONC AT EQUIPMENT EQUIPMENT PRSC FLW RATE PRTBLE E0431 EVELYN RIVAS GASEOUS 9 HOME HOME O2 SYS MEDICAL MEDICAL RENT; EQUIPMENT [facility] G0378 BR[facility] T[facility] OBSERVATI 9 [facility] ON INC INC SERVICE PER HOUR AMB A0427 JULEE [facility] SERVICE 9 AMBULANCE AMBULANCE ALS SERVICE SERVICE EMERGENCY TRANSPORT LEVEL 1 AMB A0422 JULEE LADD OXYGEN&O2 9 AMBULANCE AMBULANCE SUPPLIES SERVICE [place] [address] BR[facility] TAY[facility]OR INFUSION 9 [facility] THERAPY/P INC INC ROPHYLAXI S /DX 1ST TO 1 HR GROUND A0425 [facility] AMBULANCE AMBULANCE PER SERVICE SERVICE STATUTE MILE INITIAL 53372 CHUY DIAZ 9 [place] Blum ON INTERNAL CARE/DAY MED 30 MINUTES GLUC BLD 51208 BR[facility] GLUC MNTR 9 [facility] DEV INC [place] [address] BR[facility] T[facility] TROPONIN 9 [facility] QUANTITAT INC INC ANNABELLA ECG 16116 BRANDON TAYLOR ROUTINE 9 [facility] ECG INC INC W/LEAST 12 LDS TRCG ONLY W/O I&R CREATINE 37243 BR[facility] T[facility] KINASE 9 [facility] TOTAL INC INC BLOOD 93174 BRANDON TAYLOR COUNT 9 [facility] COMPLETE INC INC AUTO&AUTO DIFRNTL WBC RADIOLOGI 24265 BRANDON TAYLOR C 9 [facility] EXAMINATI INC INC ON CHEST SINGLE VIEW FRONTAL ECG 28057 BRANDON MCKEMIE ROUTINE 9 [facility] W/LEAST PROF SERV 12 LDS I&R ONLY CREATINE 15240 BRANDON TAYLOR KINASE MB 9 [facility] FRACTION INC INC ONLY BASIC 96887 BR[facility] TAY[facility]OR METABOLIC 9 [facility] PANEL INC INC CALCIUM TOTAL COMPREHEN 51776 BR[facility] T[facility] SIVE 9 [facility] METABOLIC INC INC PANEL LOCM Q9967 BRANDON TAYLOR [phone] [facility] MG/ML INC INC IODINE CONCENTRA TION PER ML 3D 72360 BRANDON TAYLOR RENDERING 9 [facility] INC INC W/INTERP& POSTPROC DIFF WORK STATION RADEX 48302 BRANDON TAYLOR ESOPHAGUS 9 [facility] INC INC CT SOFT 05000 BRANDON TAYLOR TISSUE 9 [facility] NECK INC INC W/CONTRAS T MATERIAL CREATININ 65953 BRANDON TAYLOR E BLOOD 9 [facility] INC INC CALCIUM 49633 BRANDON TAYLOR TOTAL 9 [place] [address] BRANDON T[facility] THYROID 9 [facility] STIMULATI [place] [address] BRANDON TAY[facility]OR UREA 9 [facility] NITROGEN INC INC QUANTITAT ANNABELLA COLLECTIO 29745 BRANDON TAY[facility] N VENOUS 9 [facility] [place] [address] BRANDON TAYLOR THYROXINE 9 [facility] TOTAL INC INC NORMAL A4256 DIABETES DIABETES LOW AND 9 CARE [facility] CALIBRATO R SOLUTION/ CHIPS PRTBLE E0431 EVELYN RIVAS GASEOUS 9 HOME HOME O2 SYS MEDICAL MEDICAL RENT; EQUIPMENT EQUIPMENT FLWMTR HUMIDFR&M ASK O2 CONC 1 E1390 EVELYN RIVAS [place] 9 HOME HOME 85%/>02 MEDICAL MEDICAL CONC AT EQUIPMENT EQUIPMENT PRSC FLW RATE LIPID 49507 BRANDON TAYLOR PANEL 9 [facility] INC INC COLLECTIO 70130 BRANDON TAY[facility]OR N VENOUS 9 [facility] BLOOD INC INC VENIPUNCT URE COMPREHEN 74370 BRANDON TAYLOR SIVE 9 [facility] METABOLIC INC INC PANEL RADIOLOGI 31065 BR[facility] T[facility]OR C 9 [facility] EXAMINATI INC INC ON KNEE 3 VIEWS RADEX 59261 BR[facility] T[facility]OR ANKLE 9 [facility] COMPLETE INC INC MINIMUM 3 VIEWS O2 CONC 1 E1390 EVELYN RIVAS [place] 9 HOME HOME 85%/>02 MEDICAL MEDICAL CONC AT EQUIPMENT EQUIPMENT PRSC FLW RATE PRTBLE E0431 EVELYN RIVAS GASEOUS 9 HOME HOME O2 SYS MEDICAL MEDICAL RENT; EQUIPMENT EQUIPMENT FLWMTR [place]UMIDFR&[place] [address] PATHOLOGY PATHOLOGY SURG 9 & & PATHOLOGY CYTOLOGY CYTOLOGY LAB LAB GROSS&[place] [address] BRANDON TAYLOR INFUSION 9 [facility] THERAPY INC [place] PROPHY[place]X [place] [address] BRANDON TAYLOR INFUSION 9 [facility] THERAPY/P INC INC ROPHYLAXI S /DX 1ST TO 1 HR ANES 02753 [facility] 9 ANESTH KANNAN Ortega [facility] ENDOSCOPY DISTAL DUODENUM GLUC BLD 72864 BRANDON TAYLOR GLUC MNTR 9 [facility] DEV INC INC CLEARED FDA SPEC HOME USE COLONOSCO 22500 BUNNY LORD, PY 9 MEDICAL [place] W/BIOPSY SERV SINGLE/MU FOUNDATIO LTIPLE THER 97569 BRANDON TAYLOR PROPH/DX 9 [facility] NJX IV INC INC PUSH SINGLE/1S T SBST/DRUG BLOOD 07632 BRANDON TAYLOR COUNT 9 [facility] COMPLETE INC INC AUTO&[place] [address] BR[facility] AMYLASE 9 [facility] INC INC CREATINE 47182 BRANDON TAY[facility] KINASE MB 9 [facility] FRACTION INC INC ONLY ECG 17357 BRANDON CHOWDHURY ROUTINE 9 [facility] W/LEAST PROF SERV 12 [place] I&[place] [address] BRANDON TAYLOR TROPONIN 9 [facility] QUANTITAT INC INC ANNABELLA CREATINE 97566 BRANDON TAYLOR KINASE 9 [facility] [place] [address] BRANDON TAYLOR LIPASE 9 [facility] INC INC ECG 96613 BRANDON TAYLOR ROUTINE 9 [facility] ECG INC INC W/LEAST 12 LDS TRCG ONLY W/O I&R URNLS DIP 25630 BRANDON TAYLOR 9 [facility] STICK/TAB INC INC LET REAGENT AUTO MICROSCOP Y THERAPEUT 86441 BRANDON TAYLOR IC 9 [facility] INJECTION INC INC IV PUSH EACH NEW DRUG INJECTION J2405 BRANDON TAYLOR 9 [facility] ONDANSETR INC INC ON HCL PER 1 MG COMPREHEN 56146 BRANDON TAYLOR SIVE 9 [facility] METABOLIC INC INC PANEL AMB A0427 JULEE LADD SERVICE 9 AMBULANCE AMBULANCE ALS SERVICE SERVICE EMERGENCY TRANSPORT LEVEL 1 GROUND A0425 JULEE LADD MILEAGE 9 AMBULANCE AMBULANCE PER SERVICE SERVICE STATUTE MILE AMB A0422 JULEE LADD OXYGEN&O2 9 AMBULANCE AMBULANCE SUPPLIES SERVICE SERVICE LIFE SUSTAININ G SITUATION SUSCEPTIB 56957 BRANDON TAYLOR LTY STDY 9 [facility] ANTIMICRB INC INC IAL MICRO/AGA R DILUTJ THERAPEUT 07862 BRANDON TAYLOR IC 9 [facility] INJECTION [place] [address] BRAND[facility] TAYLOR INFUSION 9 [facility] THERAPY/P INC INC ROPHYLAXI S /DX 1ST TO 1 HR CULTURE 05124 BRANDON TAYLOR BACTERIAL 9 [facility] INC INC QUANTTATI VE COLONY COUNT URINE URNLS DIP 92417 BR[facility]ON TAYLOR 9 [facility] STICK/TAB INC INC LET REAGENT AUTO MICROSCOP Y KETONE 93612 BRANDON TAYLOR BODIES 9 [facility] SERUM INC INC QUALITATI VE BLOOD 58057 BRANDON TAYLOR COUNT 9 [facility] COMPLETE INC INC AUTO&AUTO DIFRNTL WBC COMPREHEN 71280 BRANDON TAYLOR SIVE 9 [facility] METABOLIC INC INC PANEL CULTURE 82335 BRANDON TAYLOR BCT 9 [facility] ISOL&PRSM INC INC PTV ID ISOLATE EA URINE PRTBLE E0431 EVELYN RIVAS GASEOUS 9 HOME HOME O2 SYS MEDICAL MEDICAL RENT; EQUIPMENT EQUIPMENT FLWMTR HUMIDFR&M ASK O2 CONC 1 E1390 EVELYN RIVAS DEL PORT 9 HOME HOME 85%/>02 MEDICAL MEDICAL CONC AT EQUIPMENT EQUIPMENT PRSC FLW RATE THERAPEUT 53296 BR[facility]ON TAYLOR IC 9 [facility] PROPHYLAC INC INC TIC/DX INJECTION SUBQ/IM GLUC BLD 87089 BRANDON TAYLOR GLUC MNTR 9 [facility] DEV INC INC CLEARED FDA SPEC HOME USE BLD GLU A4253 DIABETES DIABETES TEST/REAG 9 [facility] [employer] HOME BLD GLU MON-50 LANCETS A4259 DIABETES DIABETES PER BOX 9 [facility] OF [facility] PRTBLE E0431 EVELYN RIVAS GASEOUS 9 HOME [...] RATE BLD GLU A4253 DIABETES DIABETES TEST/REAG 9 [facility] C[facility] T [employer] HOME BLD GLU MON-50 NORMAL A4256 DIABETES DIABETES LOW AND 9 [facility] CALIBRATO R SOLUTION/ CHIPS PRTBLE E0431 EVELYN RIVAS GASEOUS 9 HOME HOME O2 SYS MEDICAL MEDICAL RENT; EQUIPMENT EQUIPMENT FLWMTR HUMIDFR&M ASK LANCETS A4259 DIABETES DIABETES PER BOX 9 [facility] PRTBLE E0431 EVELYN RIVAS GASEOUS 8 HOME HOME O2 SYS MEDICAL MEDICAL RENT; EQUIPMENT EQUIPMENT FLWMTR HUMIDFR&M ASK O2 CONC 1 E1390 EVELYN RIVAS DEL PORT 8 HOME HOME 85%/>02 MEDICAL MEDICAL CONC AT EQUIPMENT EQUIPMENT PRSC FLW RATE BLD GLU A4253 DIABETES DIABETES TEST/REAG 8 [facility] CARE [facility] T [employer] [facility] HOME BLD GLU LANCETS A4259 DIABETES DIABETES PER BOX 8 [facility] GASTRIC 60494 [facility] 8 MEDICAL FREDO IMAGING IMAGING STUDY [...] [employer] HOME BLD GLU MON-50 BASIC 20174 BRANDON TAYLOR METABOLIC 8 [facility] [place] [address] BRANDON TAYLOR THER 8 [facility] PROPH/DX INC INC 1ST >1 HR GLUC BLD 63902 BRANDON RABAGOON GLUC MNTR 8 [facility] DEV INC INC CLEARED FDA SPEC HOME USE URNLS DIP 68601 [facility] 8 [facility] STICK/TAB INC INC LET REAGENT AUTO MICROSCOP Y IV NFUS 50269 BRANDON TAYLOR THER 8 [facility] PROPH/DX INC INC EA HR BLOOD 89195 BRANDON BRANDON COUNT 8 [facility] COMPLETE INC INC AUTO&AUTO DIFRNTL WBC O2 CONC 1 E1390 EVELYN RIVAS DEL PORT 8 HOME HOME 85%/>02 MEDICAL MEDICAL CONC AT EQUIPMENT EQUIPMENT PRSC FLW RATE PRTBLE E0431 EVELYN RIVAS GASEOUS 8 HOME HOME O2 SYS MEDICAL MEDICAL RENT; EQUIPMENT EQUIPMENT FLWMTR HUMIDFR&M ASK 3D 81285 [place] [facility] 8 MEDICAL RACHEL P W/INTERP IMAGING & [place] [address] BRANDON TAYLOR HEAD/BRAI 8 [facility] N W/O INC INC CONTRAST MATERIAL ANES 74528 [facility], UPPER GI 8 ANESTH ERLIN L ENDOSCOPY OF THE PROXIMAL [place] TO DUODENUM GLUC BLD 99147 BRANDON BRANDON GLUC MNTR 8 [facility] DEV INC INC CLEARED FDA SPEC HOME USE CUL 30763 BRANDON TAYLOR PRSMPTV 8 [facility] PTHGNC INC INC ORGANISMS SCR DNS CHART SPECIAL 48525 PATHOLOGY PATHOLOGY STAIN 8 & & GROUP 1 CYTOLOGY CYTOLOGY MICROORGA LAB [place] NISMS [place]FS [address] BRANDON TAYLOR THER 8 [facility] PROPH/DX INC INC 1ST >1 HR EGD 36234 BRANDON TAYLOR TRANSORAL 8 [facility] BIOPSY INC [place] [address] PATHOLOGY PATHOLOGY SURG 8 & & PATHOLOGY [...] [employer] HOME BLD GLU MON-50 O2 CONC 1 E1390 EVELYN RIVAS DEL PORT 8 HOME HOME 85%/>02 MEDICAL MEDICAL CONC AT EQUIPMENT EQUIPMENT PRSC FLW RATE PRTBLE E0431 EVELYN RIVAS GASEOUS 8 HOME HOME O2 SYS MEDICAL MEDICAL RENT; EQUIPMENT EQUIPMENT FLWMTR HUMIDFR&M ASK HEPATITIS 19682 [facility] A 8 [facility] ANTIBODY INC INC HAAB ACUTE 98451 BRANDON TAYLOR HEPATITIS 8 [facility] PANEL INC INC COMPREHEN 28479 BR[facility]ON T[facility] SIVE 8 [facility] METABOLIC INC INC PANEL HEPATITIS 58184 BRANDON TAYLOR B [facility] ANTIBODY INC INC HBCAB TOTAL HEPATITIS 58205 BR[facility]ON Boyd SURF 8 [facility] [place] [address] BRANDON TAYLOR AMYLASE 8 [place] [address] BR[facility] T[facility] LIPASE 8 [facility] INC INC BLOOD 29369 [facility] T[facility] COUNT 8 [facility] COMPLETE INC INC AUTO&AUTO DIFRNTL WBC URNLS DIP 08352 [facility] 8 [facility] STICK/TAB INC INC LET REAGENT AUTO MICROSCOP Y COMPREHEN 24852 [facility] SIVE 8 [facility] METABOLIC INC INC PANEL CULTURE 45223 BRANDON BR[facility] BACTERIAL 8 [facility] INC INC QUANTTATI VE COLONY COUNT URINE SUSCEPTIB 27066 BR[facility] T[facility] LTY STDY 8 [facility] ANTIMICRB INC INC IAL MICRO/AGA R DILUTJ RADEX ABD 79038 RITU CACERES 8 MEDICAL FREDO AQT ABD IMAGING W/S/E/D ASSOCIATE VIEWS 1 S VIEW CH CULTURE 65125 [facility] BCT 8 [facility] ISOL&PRSM INC INC PTV ID ISOLATE EA URINE PRTBLE E0431 EVELYN RIVAS GASEOUS 8 HOME [...] CLUB CARE [facility] [employer] HOME E0607 DIABETES DIABETES BLOOD 8 [facility]ARE [facility] GLUCOSE [facility] MONITOR PO A4258 DIABETES DIABETES WERED 8 CARE CLUB CARE [employer] FOR LANCET EACH BLD GLU A4253 DIABETES DIABETES TEST/REAG 8 [facility]ARE [facility] CARE [facility] T STRIPS [facility] HOME BLD GLU MON-50 NORMAL A4256 DIABETES DIABETES LOW AND 8 CARE CLUB CARE CLUB HIGH [employer] CALIBRATO R SOLUTION/ CHIPS O2 CONC 1 E1390 EVELYN RIVAS DEL PORT 8 HOME HOME 85%/>02 MEDICAL MEDICAL CONC AT EQUIPMENT EQUIPMENT PRSC FLW RATE PRTBLE E0431 EVELYN RIVAS GASEOUS 8 HOME HOME O2 SYS MEDICAL MEDICAL RENT; EQUIPMENT EQUIPMENT FLWMTR HUMIDFR&M ASK ANGIOCARD 8853 [facility] IOGRAPHY 8 [facility] OF LEFT HOSP HOSP HEART STRUCTURE S LEFT 3722 [facility] HEART 8 [facility] CARDIAC HOSP HOSP CATHETERI ZATION CORONARY 8856 [facility] ARTERIOGR 8 [facility] APHY HOSP HOSP USING TWO CATHETERS COLLECTIO 48734 [facility] N VENOUS 8 [facility] BLOOD HOSP HOSP VENIPUNCT URE INJECTION 70889 [facility] CARDIAC 8 [facility] CATHJ L HOSP HOSP VENTR/L ATR ANGIOGRAP H LIPID 45149 [facility] PANEL 8 [facility] HOSP HOSP GLUCOSE 82394 [facility] BLOOD 8 [facility] REAGENT HOSP HOSP STRIP L HRT 10335 [facility] CATHETERI 8 [facility] ZATION HOSP [place] [address] CEN[facility]AL CENTR[facility] C-CATHJ 8 [facility]TH[facility]OX ORTHODOX F/SLCTV C HOSP HOSP ANGRPH I SI&R 01197 [facility]/NJX PX 8 ORTH, DURING CARDIOLOG MARIANA C-CATHJ Y VENTR&/AT CONSULTAN R ANGRPH T I SI&R 61641 [facility] F/NJX PX 8 ORTH, DURING CARDIOLOG MARIANA C-CATHJ Y PULM&/OR CONSULTAN SELECT T BLOOD 61428 [facility] COUNT 8 [facility] COMPLETE HOSP HOSP AUTOMATED ECG 28822 [facility] ROUTINE 8 ORTH, ECG CARDIOLOG MARIANA W/LEAST Y 12 LDS CONSULTAN I&R ONLY T RADIOLOGI 49822 CENTRAL ZAMUDIO, C EXAM 8 RADIOLOGY ROB CHEST 2 ASSOC C VIEWS FRONTAL&L ATERAL ECG 42245 [facility]EN[facility] ROUTINE 8 [facility] ECG HOSP HOSP W/LEAST 12 LDS TRCG ONLY W/O I&R COLLECTIO 34166 [facility]EN[facility] N VENOUS 8 [facility] BLOOD HOSP HOSP VENIPUNCT URE BASIC 21093 CENTRAL [facility]ENTRAL METABOLIC 8 [facility]TH[facility]OX PANEL HOSP HOSP CALCIUM TOTAL ADMN SET A7003 [place] SM VOL 8 HOME HOME NONFILTR MEDICAL MEDICAL PNEUMAT EQUIPMENT EQUIPMENT NEBULIZR DISPBL SMALL A7004 [place] VOLUME 8 HOME HOME NONFILTR MEDICAL MEDICAL PNEUMATIC EQUIPMENT EQUIPMENT NEBULIZER DISPBL PRTBLE E0431 CYNPAULIEANA DONTRELLANA GASEOUS 8 HOME HOME O2 SYS MEDICAL MEDICAL RENT; EQUIPMENT EQUIPMENT FLWMTR HUMIDFR&M ASK O2 CONC 1 E1390 EVELYN RIVAS DEL PORT 8 HOME HOME 85%/>02 MEDICAL MEDICAL CONC AT EQUIPMENT EQUIPMENT PRSC FLW RATE CYTP 62512 [facility] WESLY, CERV/VAG 8 [place] INC MAR P AUTO THIN LAYER PREP MNL SCREEN AMB A0427 [facility] SERVICE 8 AMBULANCE AMBULANCE ALS SERVICE SERVICE EMERGENCY TRANSPORT LEVEL 1 AMB A0422 [facility] OXYGEN&O2 8 AMBULANCE AMBULANCE SUPPLIES SERVICE SERVICE LIFE SUSTAININ G SITUATION BASIC 32523 BRANDON TAYLOR METABOLIC 8 [facility] PANEL INC INC CALCIUM TOTAL GROUND A0425 JULEE [facility] MILEAGE 8 AMBULANCE AMBULANCE PER SERVICE SERVICE STATUTE MILE ECG 11379 BRANDON TAYLOR ROUTINE 8 [facility] ECG INC INC W/LEAST 12 LDS TRCG ONLY W/O I&R BLOOD 54285 BRANDON TAYLOR COUNT 8 [facility] COMPLETE INC INC AUTO&[place] [address] BRANDON TAYLOR TROPONIN 8 [facility]OS[facility] QUANTITAT INC INC ANNABELLA CREATINE 89516 BR[facility]ON TAYLOR KINASE 8 [facility] TOTAL INC INC RADIOLOGI 87363 [facility] BERTRAND 8 MEDICAL FREDO EXAMINATI IMAGING ON CHEST ASSOCIATE SING[place] S [place]IEW FRONTAL ECG 56532 BRANDON ROMEROMIChristiano ROUTINE 8 [facility] W/LEAST PROF SERV 12 LDS I&R ONLY RHYTHM 16794 BRANDON TAYLOR ECG 1-3 8 [facility] LEADS INC INC TRACING ONLY W/O I&R CREATINE 38413 BRANDON TAYLOR KINASE MB 8 [facility] FRACTION INC INC ONLY O2 CONC 1 E1390 EVELYN RIVAS DEL PORT 8 HOME HOME 85%/>02 MEDICAL MEDICAL CONC AT EQUIPMENT EQUIPMENT PRSC FLW RATE PRTBLE E0431 EVELYN RIVAS GASEOUS 8 HOME HOME O2 SYS MEDICAL MEDICAL RENT; EQUIPMENT EQUIPMENT FLWMTR HUMIDFR&M ASK DOPPLER 85820 BRANDON TAYLOR ECHOCARD 8 [facility] PULSE INC INC WAVE W/SPECTRA L DISPLAY ECHO 36722 BRANDON TAYLOR TRANSTHOR 8 [facility] AC R-T 2D INC INC W/WO M-MODE REC COMP DOP 84642 BRANDON TAYLOR ECHOCARD 8 [facility] COLOR INC INC FLOW VELOCITY MAPPING RADIOLOGI 64624 [facility] José MÉNDEZ EXAM 8 MEDICAL RACHEL P CHEST 2 IMAGING VIEWS ASSOCIATE FRONTAL&L S ATERAL INITIAL 37121 [place] SCOTTY OBSERVATI 8 [facility] CARE/DAY MED 30 [place]ES NJX [address] CARIN DEL ROSARIO ANES&/STR 8 ERVIN HuffmanT NRV CRV/THRC EA LVL NJX 26541 CARIN DEL ROSARIO ANES&/STR 8 ERVIN RICARDO NRV CRV/THRC 1 LVL FLUOR 66896 CARIN DEL ROSARIO, NEEDLE/CA 8 ERVIN Nunn TH SPINE/PAR ASPINAL DX/[place] [address] BRANDON RABAGOON THYROXINE 8 [facility] TOTAL INC INC COMPREHEN 94599 BRANDON RABAGOON SIVE 8 [facility] METABOLIC INC INC PANEL THROMBOPL 82307 BRANDON RABAGOON ASTIN 8 [facility] TIME INC INC PARTIAL PLASMA/WH OLE BLOOD 25 96213 BRANDON TAYLOR HYDROXY 8 [facility] INCLUDES INC INC FRACTIONS IF PERFORMED BLOOD 34031 BRANDON BRANDON COUNT 8 [facility] COMPLETE INC INC AUTO&AUTO DIFRNTL WBC THYROID 20110 BRANDON TAYLOR HORM 8 [facility] UPTK/THYR INC INC OID HORMONE BINDING RATIO ECG 73210 BRANDON TAYLOR ROUTINE 8 [facility] ECG INC INC W/LEAST 12 LDS TRCG ONLY W/O I&[place] [address] BRANDON TAYLOR THYROID 8 [facility] STIMULATI INC INC NG HORMONE TSH ECG 28759 BRANDON LEMUS ROUTINE 8 [facility] W/LEAST PROF SERV 12 LDS I&R ONLY PROTHROMB 12218 BRANDON TAYLOR IN TIME 8 [facility] INC INC O2 CONC 1 E1390 EVELYN RIVAS DEL PORT 8 HOME HOME 85%/>02 MEDICAL MEDICAL CONC AT EQUIPMENT EQUIPMENT PRSC FLW RATE PRTBLE E0431 EVELYN RIVAS GASEOUS 8 HOME HOME O2 SYS MEDICAL MEDICAL RENT; EQUIPMENT EQUIPMENT FLWMTR HUMIDFR&M ASK APPLICATI 43696 KAVYA HOFF, ON 8 ERVIN Huffman MODALITY 1/> AREAS HOT/COLD PACKS APPL 18796 KAVYA HOFF, MODALITY 8 ERVIN Huffman 1/> AREAS 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 L CHIROPRAC 00348 KAVYA HOFF, TIC 8 ERVIN Huffman MANIPULAT ANNABELLA [place] SPINAL 3-4 REGIONS THERAPEUT 98444 KAVYA HOFF, ACTVITY 8 ERVIN Huffman DIRECT PT CONTACT EACH 15 MIN THERAPEUT 39757 KAVYA HOFF, ACTVITY 8 ERVIN Huffman DIRECT PT CONTACT EACH 15 MIN CHIROPRAC 76239 KAVYA HOFF, TIC 8 ERVIN Huffman MANIPULAT ANNABELLA TX SPINAL 3-4 REGIONS APPL 49017 KAVYA HOFF, MODALITY 8 ERVIN Huffman 1/> AREAS 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 L APPLICATI 96965 KAVYA HOFF, ON 8 ERVIN Huffman MODALITY 1/> AREAS HOT/COLD PACKS APPLICATI 06550 KAVYA HOFF, ON 8 ERVIN Huffman MODALITY 1/> AREAS HOT/COLD PACKS APPL 38187 KAVYA HOFF, MODALITY 8 ERVIN Huffman 1/> AREAS 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 L CHIROPRAC 82713 KAVYA HOFF, TIC 8 ERVIN Huffman MANIPULAT ANNABELLA [place] SPINAL 3-4 REGIONS THERAPEUT 96053 KAVYA HOFF, ACTVITY 8 ERVIN Huffman DIRECT PT CONTACT EACH 15 MIN TECHNETIU A9500 BRANDON BRANDON M TC-99M 8 [facility] SESTAMIBI INC INC DX PER STUDY DOSE MYOCRD 79996 NIMA GONZALEZUJ STD 8 HEART & NEZAR M EJEC FXJ VASCULAR ASSOC MYOCRD 54560 BRANDON BRANDON PRFUJ STD 8 [facility] WALL INC INC MOTION QUAL/CASSANDRA STD MYOCRD 73075 NIMA GONZALEZUJ IMG 8 HEART & NEZAR M TOMOG VASCULAR SPECT DIGITAL FORENSIC ANALYST ASSOC STD CV STRS 57768 LEONA SOLIS, TST 8 HEART & NEZAR M XERS&/OR VASCULAR RX CONT ASSOC ECG I&R ONLY CV STRS 37623 LEONA SOLIS TST 8 HEART & NEZAR M XERS&/OR VASCULAR RX CONT ASSOC ECG W/O I&R CV STRS 56085 BRANDON TAYLOR TST 8 [facility] XERS&/OR INC INC RX CONT ECG TRCG ONLY GLUC BLD 68557 BRANDON TAYLOR GLUC MNTR 8 [facility] DEV INC INC CLEARED FDA SPEC HOME USE OBSERVATI 49449 CHRIS CARY ON CARE 8 [facility] INTERNAL MED [facility] G0378 BRANDON TAYLOR OBSERVATI 8 [facility] ON INC INC SERVICE [facility] G0378 BRANDON TAY[facility]OR OBSERVATI 8 [facility] ON INC INC SERVICE PER HOUR [facility] A0427 [facility] SERVICE 8 AMBULANCE AMBULANCE ALS SERVICE SERVICE EMERGENCY TRANSPORT LEVEL 1 GLUC BLD 56836 BRANDON TAYLOR GLUC MNTR 8 [facility] DEV INC [place] [address] BRANDON TAYLOR TROPONIN 8 [facility]OS[facility] QUANTITAT INC INC ANNABELLA BLOOD 00690 BRANDON TAYLOR COUNT 8 [facility] COMPLETE INC INC AUTO&AUTO DIFRNTL WBC ECG 55248 BRANDON TAYLOR ROUTINE 8 [facility] ECG INC INC W/LEAST 12 LDS TRCG ONLY W/O I&R CREATINE 89654 BRANDON TAYLOR KINASE 8 [facility] TOTAL INC INC RADIOLOGI 31983 José DUKES 8 MEDICAL RACHEL Nunn EXAMINATI IMAGING ON CHEST ASSOCIATE SINGLE S VIEW FRONTAL ECG 54645 MIKAELA DODD 8 [facility] W/LEAST PROF SERV 12 LDS I&R ONLY RHYTHM 78226 BRANDON TAYLOR ECG 1-3 8 [facility] LEADS INC INC TRACING ONLY W/O I&R CREATINE 24027 BRANDON TAYLOR KINASE MB 8 [facility] FRACTION INC INC ONLY IV NFUS 57245 BRANDON TAYLOR THER 8 [facility] PROPH/DX INC INC EA HR BASIC 78080 BRANDON TAYLOR METABOLIC 8 [facility] PANEL INC INC CALCIUM TOTAL GROUND A0425 [facility] 8 AMBULANCE AMBULANCE PER SERVICE SERVICE STATUTE MILE INITIAL 43674 [place] JUVENTINORONNChristiano VERA 8 [facility] INTERNAL [facility] CARE/DAY MED 30 MINUTES LIPID 01824 BRANDON TAYLOR PANEL 8 [place] [address] BRANDON TAYLOR THER 8 [facility] PROPH/DX INC INC 1ST >1 HR O2 CONC 1 E1390 EVELYN RIVAS DEL PORT 8 HOME HOME 85%/>02 MEDICAL MEDICAL CONC AT EQUIPMENT EQUIPMENT PRSC FLW RATE PRTBLE E0431 EVELYN RIVAS GASEOUS 8 HOME HOME O2 SYS MEDICAL MEDICAL RENT; EQUIPMENT EQUIPMENT FLWMTR HUMIDFR&M ASK SYPHILIS 91273 BRANDON TAYLOR TEST 8 [facility] NON-TREPO INC INC NEMAL ANTIBODY QUAL NRV CNDJ 18511 SAMANTA ENGLAND, AMPLT&LAT 8 CHUCK LAZAR EA NRV MOTOR W/F-WAVE STD NRV CNDJ 91866 SAMANTA ENGLAND, AMPLITUDE 8 CHUCK WOODS & LATENCY EACH NERVE SENSORY COMPREHEN 10145 BRANDON TAYLOR SIVE 8 [facility] [address] BRANDON TAYLOR THYROXINE 8 [facility] TOTAL INC INC NDL EMG 2 94385 SAMANTA ENGLAND, XTR W/WO 8 CHUCK CHUCK RELATED PARASPINA L AREAS RHEUMATOI 02270 BRANDON TAYLOR D FACTOR 8 [facility] [place] [address] BRANDON TAYLOR THYROID 8 [facility] STIMULATI [place] [address] BRANDON TAYLOR FOLIC 8 [facility] [place] [address] BRANDON TAYLOR THIAMINE- 8 [facility] VITAMIN INC INC B-1 CYANOCOBA 36610 BRANDON TAYLOR PRATEEK 8 [facility] VITAMIN INC INC B-12 BLOOD 05956 BRANDON TAYLOR COUNT 8 [facility] COMPLETE INC INC AUTO&AUTO DIFRNTL WBC HEMOGLOBI 38226 BRANDON TAYLOR N 8 [facility] GLYCOSYLA INC INC ML A1C O2 CONC 1 E1390 EVELYN RIVAS DEL PORT 8 HOME HOME 85%/>02 MEDICAL MEDICAL CONC AT EQUIPMENT EQUIPMENT PRSC FLW RATE PRTBLE E0431 EVELYN RIVAS GASEOUS 8 HOME HOME O2 SYS MEDICAL MEDICAL RENT; EQUIPMENT EQUIPMENT FLWMTR HUMIDFR&M ASK Encounters Encounter Start End Date Code Location Performer Type Date [facility] - 7 7 [facility] BRANDON - Lenora 7 [facility] Cooley 7 [facility] Cooley 7 [facility] EMERGENC[facility] 53068 BRANDON 7 7 [facility] L[facility]MODER SEVERITY [facility] BR[facility]ON - Lenora 7 [facility] EMERGENC[facility] 78099 BRANDON HARRIST 7 7 [facility] VISIT INC [facility]IGH SEVERITY& [facility]AT [facility] - 7 7 [facility] OUTPATIEN [facility] T EMERGENCY 95132 BRANDON 7 7 [facility] T VISIT LOW/MODER SEVERITY HOSPITAL BRANDON - 7 7 [facility] BRANDON - 7 7 [facility] T OFFICE 52059 [facility] OUTPATIEN 7 7 [facility] T VISIT OF BELLE 25 CO MINUTES HOSPITAL BRANDON - 7 7 [facility] EMERGENC[facility] 68958 BRANDON 7 7 [facility] T VISIT HIGH/URGE NT SEVERITY HOSPITAL BRANDON - OTHER [address] [facility] BRANDON - OTHER [address] [facility] BRANDON - 7 7 [facility]ANDON - 7 7 [facility] OFF[facility] 32564 [facility] FRYMRA OUTSHABBIR 7 7 PHYSICIAN T VISIT GROUP 15 MINUTES OFFICE 34311 [facility] P[facility]IAM OUTSHABBIR 7 7 MEDICAL ASTELLANO T NEW 30 SERV S MINUT[facility] E [facility] BRANDON - 7 7 [facility] 82987 [facility] OUTPATIEN 7 7 PHYSICIAN T VISIT S GROUP 15 MINUTES EMERGENCY 08783 [facility] 7 7 [facility] EMERGENCY T VISIT PHYS HIGH/URGE NT SEVERITY EMERGENCY 76367 [facility] DEPT 7 7 PHYSICIAN VISIT S, PLLC HIGH SEVERITY& THREAT FUNCJ EMERGENCY 43850 BRANDON 7 7 [facility] DEPARTMEN INC T VISIT LOW/MODER SEVERITY HOSPITAL BRANDON - 7 7 [facility] OUTPATIEN INC T HOSPITAL BRANDON - 7 7 [facility] OUTPATIEN INC T EMERGENCY 09675 [facility] 7 PHYSICIAN VISIT S, [facility] HIGH SEVERITY& THREAT [facility] BRANDON - 7 7 [facility] OUTPATIEN INC T EMERGENCY 66500 BRANDON 7 7 [facility] HIGH/URGE NT SEVERITY HOSPITAL BRANDON - OTHER 7 7 [facility] EMERGENCY 76585 BRANDON 7 7 [facility] T VISIT MODERATE SEVERITY EMERGENCY 32365 [facility] 7 7 PHYSICIAN DEPARTMEN S, [facility] T VISIT HIGH/URGE NT SEVERITY HOSPITAL BRANDON - 7 7 [facility] OUTPATIEN [facility] T OFFICE 88625 [facility] [address] [facility] BRANDON - OTHER 7 7 [facility] EMERGENCY 31349 BRANDON 7 7 [facility] T VISIT LOW/MODER SEVERITY EMERGENCY 31486 [facility] SINGH DEPT 7 7 PHYSICIAN VISIT S, [facility] HIGH SEVERITY& THREAT [facility] BRANDON - 7 7 [facility] OUTPATIEN INC T HOSPITAL BRANDON - 7 7 [facility] OUTPATIEN INC T HOSPITAL BR[facility] - 7 7 [facility] OUTPATIEN INC T EMERGENCY 57203 [facility] 7 7 PHYSICIAN VISIT S, [facility] HIGH SEVERITY& THREAT FUN EMERGENCY 18459 BRANDON 7 7 [facility] T VISIT LOW/MODER SEVERITY HOSPITAL BRANDON - OTHER 7 7 [facility] H[facility]PITAL BRANDON - 7 7 [facility] - 7 7 [facility] - 6 6 [facility] - 6 6 [facility] EMERGENCY 96614 [facility] RENUSCH 6 6 PHYSICIAN RUBIOMEN S, [facility] HIGH/URGE NT SEVERITY EMERGENCY 00382 BRANDON 6 6 [facility] T VISIT LOW/MODER SEVERITY OFFICE 78673 [facility] LORIE MCNALLY OUTPATIEN 6 6 PHYSICIAN T VISIT S GROUP 25 MINUTES HOSPITAL BRANDON - 6 6 [facility] INPATIENT [facility] EMERGENCY 02709 BRANDON 6 6 [facility] T VISIT LOW/MODER SEVERITY HOSPITAL BRANDON - 6 6 [facility] 17992 [facility] RENUSCH 6 6 PHYSICIAN ILIR DANIELS S [facility] T VISIT HIGH/URGE NT SEVERITY HOSPITAL BR[facility]ON - 6 6 [facility] 56611 [facility] LORIE MCNALLY OUTPATISABRINA 6 6 PHYSICIAN T NEW 45 S GROUP MINUTES EMERGENCY 83457 [facility] RENUSCH 6 6 PHYSICIAN ILIR DANIELS S [facility] HIGH/URGE NT SEVERITY HOSPITAL BR[facility]ON - 6 6 [facility] EMERGENC[facility] 04157 [facility] HAYDEN SHAKILA 6 6 PHYSICIAN FRANCES S [facility] T VISIT HIGH/URGE NT SEVERITY EMERGENCY 18353 BRANDON 6 6 [facility] T VISIT LOW/MODER SEVERITY HOSPITAL BRANDON - 6 6 [facility] OUTPATIEN [facility] T OFFICE 97513 [facility]IEN 6 6 FOOT & T NEW 30 ANKLE CE MINUTES HOSPITAL BRANDON - 6 6 [facility] OUTPATIEN [facility] T EMERGENCY 32517 [facility] 6 6 [facility] T VISIT LOW/MODER SEVERITY EMERGENCY 92087 [facility] SHAH 6 6 PHYSICIAN [facility] S, [facility] T VISIT HIGH/URGE NT SEVERITY HOSPITAL BRANDON - 6 6 [facility] BRANDON - 6 6 [facility] OUTPATIEN [facility] T EMERGENCY 10805 BRANDON 6 6 [facility] T VISIT LOW/MODER SEVERITY [facility] - 6 6 [facility] T EMERGENCY [id number] LEIGHTON MARTINEZ, 6 6 PHYSICIAN JR FUENTES [facility] S, [facility] T VISIT HIGH/URGE NT SEVERITY OFFICE 78795 [facility] KEREN CORDOVA 6 6 PHYSICIAN T VISIT S GROUP 10 EMERGENCY 03987 LEIGHTON MAC 6 6 PHYSICIAN Meng HOWARD [facility] S, [facility] T VISIT HIGH/URGE NT SEVERITY [facility] - 6 6 [facility] OUT[facility]IEN [facility] T EMERGENCY [id number] [facility] 6 6 [facility] T VISIT LOW/MODER SEVERITY EMERGENCY 86941 LEIGHTON SHAH 6 6 PHYSICIAN SHANTHI [facility] S, [facility] T VISIT HIGH/URGE NT SEVERITY EMERGENCY 54094 [facility] 6 6 [facility] T VISIT LIMITED/M INOR PROB [facility]OSP[facility] 6 6 [facility] OUTPATIEN [facility] T OFFICE 82975 [facility] HERNANDEZ OUTPATIEN 6 6 PHYSICIAN JERRY T VISIT S GROUP 10 MINUTES [facility] 6 6 [facility] - 6 6 [facility] EMERGENCY [id number] [facility] 6 6 [facility] T VISIT LOW/MODER SEVERITY OFFICE [id number] EVELYN HALLMAN [facility] 6 6 [facility] 10 MINUTES HOSPITAL [facility] - OTHER [address] [facility] - OTHER [address] [facility] OTHER 5 5 [facility] EMERGENCY [id number] LEIGHTON SHAH DEPT 5 5 PHYSICIAN SHANTHI VISIT S, [facility] HIGH SEVERITY& THREAT FUNCJ EMERGENCY 57935 [facility] 5 5 [facility] T VISIT MODERATE SEVERITY [facility] - 5 5 [facility] - 5 5 [facility] EMERGENCY 06439 LEIGHTON SHAH 5 5 PHYSICIAN SHANTHI DEPARTMEN S, [facility] T VISIT HIGH/URGE NT SEVERITY EMERGENCY [id number] LEIGHTON MAC 5 5 PHYSICIAN U ANITA DEPARTMEN S, [facility] T VISIT HIGH/URGE NT SEVERITY OFFICE 62786 CHRIS WELLS [facility] 5 5 [facility] T VISIT INTERNAL 15 MED MINUTES EMERGENCY [id number] LEIGHTON SHAH DEPT 5 5 PHYSICIAN SHANTHI VISIT S, PLLC HIGH SEVERITY& THREAT FUNCJ EMERGENCY 94612 [facility] 5 5 [facility] T VISIT HIGH/URGE NT SEVERITY [facility] - 5 5 [facility] - 5 5 [facility] 5 5 [facility] 93273 [facility] 5 5 [facility] T VISIT LOW/MODER SEVERITY [facility] - 5 5 [facility] 20224 LEIGHTON SHAH 5 5 PHYSICIAN [facility] S, [facility] T VISIT HIGH/URGE NT SEVERITY OFFICE 25395 [place] [facility] 5 5 [facility] T VISIT SERV ACH 25 FOUNDATIO MINUTES [facility]OSPITAL [facility] 5 5 [facility] 5 [facility] - OTHER [address] [facility] - 5 5 [facility] 02392 [facility] MARTINEZ[facility] 5 5 [facility] T VISIT P HIGH/URGE NT SEVERITY [facility] 5 5 [facility] 79309 [place] [facility] 5 [facility] T VISIT SERV A[facility] 25 FOUNDATIO MINUTES N EMERGENCY 22448 [facility] 5 5 [facility] T VISIT P HIGH/URGE NT SEVERITY OFFICE 52884 [facility] 4 4 PHYSICIAN [place] T VISIT S GROUP 25 MINUTES EMERGENCY 24730 [facility] 4 4 [facility] T [facility]ISIT LOW/MODER SEVERITY EMERGENCY 60087 [facility] 4 4 [facility] EMERGENCY T VISIT PHYS MODERATE SEVERITY [facility] 4 [facility] OFFICE 35932 EAR, NOSE SHASHY OUTPATIEN 4 4 AND SOBEIDA T VISIT THROAT 25 SPECIAL MINUTES OFFICE 24704 MARNI MARNI OUTPATIEN 4 4 LUIS ALFREDO LUIS ALFREDO T VISIT 25 MINUTES OFFICE 30297 EAR, NOSE SHASHY OUTPATIEN 4 4 AND SOBEIDA T VISIT THROAT 25 SPECIAL MINUTES [facility] - 4 4 [facility] 4 4 Y [facility] T OFFICE 17471 [facility] 4 MEDICAL AYANANE T VISIT SERV ACH 25 FOUNDATIO MINUTES EMERGENCY [address] [facility] 4 4 KAMAR SHANTHI DEPARTMEN EMERGENCY T VISIT PHYS HIGH/URGE NT SEVERITY LDS HOSPITAL UNIVERSIT - 4 4 Y [facility] T OFFICE 55293 [facility]ED [facility]ANCED OUTPATIEN 4 4 DERMATOLO DERMATOLO T NEW 30 GY GY MINUTES HOSPITAL [facility] 4 4 [facility] 4 4 [facility] 4 [facility] UNIVERSIT [facility] OTHER 4 4 [facility] UNIVERSIT - 4 4 Y [facility] T EMERGENCY 73161 BUNNY DAVIES 4 4 MEDICAL MAT DEPARTMEN SERV T VISIT FOUNDATIO HIGH/URGE NT SEVERITY HOSPITAL [facility] - OTHER 4 4 [facility] EMERGENCY 77806 [facility] DE[facility] 4 4 KAMAR VISIT EMERGENCY HIGH PHYS SEVERITY& [facility] - OTHER 4 4 [facility] INC OFFICE 43608 [place] NATACHA PHI OUTPATIEN 4 4 [facility] 30 SERV [facility] FOUNDATI OFFICE 01523 [facility] MIRANDA OUTPATIEN 4 4 [facility] 15 P MINUTES HOSPITAL [facility] - 4 4 [facility] EMERGENCY 45186 MARLO WHITEEY DEPT 4 4 EMERGENCY SHANTHI VISIT SERVICES HIGH SEVERITY& THREAT [facility] OFFICE 78528 ORTHODOX GARO OUTPATIEN 4 4 NEUROLOGY [facility] - 4 4 [facility]PATIEN [facility] BRANDON - 4 4 [facility] - 4 4 [facility] Emergency WALLY Shah MD (ER) 3 00:03 3 00:46 [facility] EMERGENCY 20912 [facility] DEPT 3 3 EMERGENCY SHANTHI VISIT SERVICES HIGH SEVERITY& THREAT [facility] BR[facility]ON - 3 3 [facility]EN [facility] OFFICE 69920 [facility] MIRANDA OUTPATIEN 3 3 [facility] 10 P MINUTES HOSPITAL [facility] - 3 3 [facility] - 3 3 [facility]PITAL [facility] - 3 3 [facility] OFFICE 55447 [facility] MIRANDA OUTPATIEN 3 3 [facility] 10 P MINUTES Emergency WALLY Shah MD (ER) 3 18:37 3 21:35 [facility] BRANDON - 3 3 [facility] OUTPATIEN INC T EMERGENCY 82341 [facility] 3 3 [facility] DEPARTMEN INC T VISIT LOW/MODER SEVERITY EMERGENCY 36338 [facility] DEPT 3 3 EMERGENCY BRO VISIT SERVICES HIGH SEVERITY& THREAT [facility] OFFICE 40561 MARNI REYNAGAURN OUTPATIEN 3 3 LUIS ALFREDO LOBATO T VISIT 15 MINUTES HOSPITAL [facility] - 3 3 [facility] OUTPATIEN INC T [facility] - 3 3 [facility]PATIEN INC T [facility] - 3 3 [facility] T [facility] - 3 3 [facility] OUTPATIEN INC T OFFICE 49862 MARNI GRIDER OUTPATIEN 3 3 LUIS ALFREDO LOBATO T VISIT 25 MINUTES HOSPITAL [facility] - 3 3 [facility] OUTPATIEN INC T OFFICE 70209 [place] MCKEMIE OUTPATIEN 3 3 ZACKERY HUMPHREYS T VISIT INTERNAL 15 MED MINUTES HOSPITAL [facility] - 3 3 [facility]PATIEN INC [facility] - 3 3 [facility] OUTPATIEN INC T OFFICE 96993 MARNI GRIDER OUTPATIEN 3 3 LUIS ALFREDO LOBATO T VISIT 40 MINUTES HOSPITAL [facility] - 3 3 [facility] OUTPATIEN INC T OFFICE 74926 [place] MCKEMIE OUTPATIEN 3 3 ZACKERY HUMPHREYS T VISIT INTERNAL 15 MED MINUTES OFFICE 84033 [place] MUSTAPHA OUTPATIEN 3 3 ZACKERY CECE T VISIT INTERNAL 15 MEDI MINUTES OFFICE 87711 [place] MCKEMIE OUTPATIEN 3 3 ZACKERY HUMPHREYS T VISIT INTERNAL 15 MED MINUTES OFFICE 08051 [place] MCKEMIE OUTPATIEN 3 3 [facility] PETR T VISIT INTERNAL 15 MED MINUTES HOSPITAL [facility] - 3 3 [facility] OUTPATIEN INC T OFFICE 51994 [place] MUST[place]HA OUTPATIEN 3 3 [place] [facility] T VISIT INTERNAL 15 MEDI MINUTES HOSPITAL [facility] - 3 3 [facility] OUTPATIEN INC T OFFICE 67907 [place] MCK[facility]IE OUTPATIEN 3 3 [facility] PETR T VISIT INTERNAL 15 MED MINUTES HOSPITAL [facility] - 3 3 [facility] OUTPATIEN INC T OFFICE 67561 [place] OUTPATIEN 3 3 [facility] T VISIT INTERNAL 15 MEDI MINUTES HOSPITAL [facility] - 3 3 [facility] OUTPATIEN INC T OFFICE 89984 [facility] OUTPATIEN 3 3 [facility] T NEW 30 S GROUP MINUTES OFFICE 72341 [place] OUTPATIEN 3 3 [facility] T VISIT INTERNAL 15 MEDI MINUTES HOSPITAL [facility] - 3 3 [facility] OUTPATIEN INC T OFFICE 26206 [place] OUTPATIEN 3 3 [facility] T VISIT INTERNAL 15 MEDI MINUTES OFFICE 90000 MARNI MARNI OUTPATIEN 3 3 LUIS ALFREDO LUIS ALFREDO T VISIT 25 MINUTES OFFICE 87325 MARNI MARNI OUTPATIEN 3 3 LUIS ALFREDO LUIS ALFREDO T VISIT 25 MINUTES OFFICE 75058 [place] OUTPATIEN 3 3 [facility] T VISIT INTERNAL 15 MEDI MINUTES HOSPITAL [facility] - 3 3 [facility] OUTPATIEN INC T OFFICE 92153 [facility] CEDRICK JR OUTPATIEN 3 3 [facility] T NEW 30 HOSPITAL MINUTES P OFFICE 43552 [place] OUTPATIEN 3 3 [place] [facility] T VISIT INTERNAL 15 MEDI MINUTES OFFICE 33583 [place] MCKEM[place] OUTPATIEN 3 3 [facility]ACK[facility] HUMPHREYS T VISIT INTERNAL 15 MED MINUTES HOSPITAL [facility] - 3 3 [facility] INPATIENT INC OFFICE 19683 [place] OUTPATIEN 3 3 [place] [facility] T VISIT INTERNAL 15 MEDI MINUTES HOSPITAL [facility] - 3 3 [facility] OUTPATIEN INC T EMERGENCY 94899 [facility] 2 2 [facility] DEPARTMEN INC T VISIT HIGH/URGE NT SEVERITY [facility]OSP[facility] - 2 2 [facility] OUTPATIEN INC T [facility] - 2 2 [facility] OUTPATIEN INC T OFFICE 69576 [facility] M[facility] OUTPATIEN 2 2 [facility] HUMP[facility]RE[facility] T VISIT INTERNAL 15 MED MINUTES OFFICE 48877 [facility] BA[facility]PATIEN 2 2 [facility] 15 MINUTES OFFICE 48626 [facility] BA[facility] OUTPATIEN 2 2 [facility] 15 MINUTES HOSPITAL CENTRAL - 2 2 ORTH[facility]OX OUTPATIEN HOSP T EMERGENCY 94325 [facility] DEPT 2 2 KAMAR DEIDRA VISIT EMERGENCY HIGH PHYS SEVERITY& THREAT FUNC OFFICE 45602 [facility] BAZZI OUTPATIEN 2 2 [facility] 15 MINUTES OFFICE 47364 [facility] BA[facility] OUTPATIEN 2 2 [facility] 15 MINUTES OFFICE 19102 [facility] BAZZI OUTPATIEN 2 2 [facility] 15 MINUTES OFFICE 93651 [facility] OUTPATIEN 2 2 L SURGIAL CATRACHITO T NEW 45 MINUTES ASSOCIATE OFFICE 44977 H[facility]IZON BAZZI OUTPATIEN 2 2 [facility] T NEW 45 E CENTER MINUTES EMERGENCY 44357 [facility] 2 2 KAMAR [facility] DEPARTMEN EMERGENCY T VISIT SERVI HIGH/URGE NT SEVERITY OFFICE 13380 José LYONS OUTPATIEN 2 2 ELOY GAMBOA T VISIT MD [facility] 25 MINUTES HOSPITAL [facility] - 2 2 [facility] OUTPATIEN INC T OFFICE 26818 [place] OUTPATIEN 2 2 ZACKERY ZHAO T VISIT INTERNAL 15 MEDI MINUTES HOSPITAL [facility] - 2 2 [facility] OUTPATIEN INC T OFFICE 54701 [place] MCK[facility] OUTPATIEN 2 2 ZACKERY HUMPHREYS T VISIT INTERNAL 15 MED MINUTES EMERGENCY 36955 UNIVERSIT DEPT 2 2 Y VISIT HOSPITAL HIGH SEVERITY& THREAT [facility] UNIVERSIT - 2 2 Y OUTPATI HOSPITAL T EMERGENCY 08498 [facility] 2 2 [facility] DEPARTMEN INC T VISIT HIGH/URGE NT SEVERITY EMERGENCY 99622 MARLO FATIMA DEPT 2 2 EMERGENCY PETR VISIT SERVICES HIGH SEVERITY& THREAT [facility] BR[facility]ON - 2 2 [facility] OUTPATIEN INC T OFFICE 90904 [place] MCK[place] OUTPATIEN 2 2 ZACKERY HUMPHREYS T VISIT INTERNAL 15 MED MINUTES HOSPITAL [facility] - 2 2 [facility] OUTPATIEN INC T EMERGENCY 67348 [facility] 2 2 [facility] DEPARTMEN INC T VISIT HIGH/URGE NT SEVERITY EMERGENCY 51195 MARLO SHAH DEPT 2 2 EMERGENCY SHANTHI VISIT SERVICES HIGH SEVERITY& THREAT [facility] - 2 2 [facility] OUTPATIEN INC T OFFICE 16642 [place] B[facility]ON OUTPATIEN 2 2 ZACKERY [place] T VISIT INTERNAL 15 MED MINUTES EMERGENCY 01510 [facility] 2 2 [facility] DEPARTMEN INC T VISIT MODERATE SEVERITY EMERGENCY 99839 MARLO SHAH 2 2 EMERGENCY SHANTHI DEPARTMEN SERVICES T VISIT HIGH/URGE NT SEVERITY [facility]OSPITAL [facility] - 2 2 [facility] OUTPATIEN INC T OFFICE 55254 [place] MCK[facility] OUTPATIEN 2 2 ZACKERY HUMPHREYS T VISIT INTERNAL 15 MED MINUTES HOSPITAL [facility] - 2 2 [facility] OUTPATIEN INC T OFFICE 14602 [place] OUTPATIEN 2 2 [facility]ACK[facility] [place] T VISIT INTERNAL 25 MED MINUTES OFFICE 52542 MARNI MARNI OUTPATIEN 2 2 LUIS ALFREDO LOBATO T VISIT 25 MINUTES HOSPITAL [facility] - 2 2 [facility] OUTPATIEN INC T EMERGENCY 50915 [facility] 2 2 [facility] DEPARTMEN INC T VISIT MODERATE SEVERITY [facility] - 2 2 [facility] OUTPATIEN INC T [facility] - 2 2 [facility] OUTPATIEN INC T OFFICE 16230 MARNI MARNI OUTPATIEN 2 2 LUIS ALFREDO LOBATO T NEW 45 MINUTES OFFICE 17066 [place] OUTPATIEN 2 2 ZACKERY CECE T VISIT INTERNAL 15 MEDI MINUTES OFFICE 28675 [place] OUTPATIEN 2 2 [place] CE[facility] T VISIT INTERNAL 15 MEDI MINUTES OFFICE 82212 [place] OUTPATIEN 2 2 ZACKERY CECE T VISIT INTERNAL 10 MEDI MINUTES HOSPITAL [facility] - 2 2 [facility] OUTPATIEN INC T EMERGENCY 57716 MARLO AKERS DEPT 2 2 EMERGENCY VISIT SERVICES HIGH SEVERITY& THREAT [facility]J EMERGENCY 74688 [facility] 2 2 [facility] DEPARTMEN INC T VISIT HIGH/URGE NT SEVERITY OFFICE 87874 [place] MCK[facility]IE OUTPATIEN 2 2 [facility] T VISIT INTERNAL 15 MED MINUTES OFFICE 08347 KENZIE ESPINO OUTPATIEN 2 2 [facility] LANDRUM T NEW 60 MINUTES OFFICE 63150 [place] OUTPATIEN 2 2 [facility] T VISIT INTERNAL 15 MED MINUTES HOSPITAL [facility] - 2 2 [facility] OUTPATIEN INC T EMERGENCY 96834 MARLO CLINE 2 2 EMERGENCY III [facility] SERVICES T VISIT HIGH/URGE NT SEVERITY OFFICE 11709 [place] GAL THO OUTPATIEN 1 1 MEDICAL T NEW 30 SERV MINUTES FOUNDATIO OFFICE 30729 EAR, NOSE SHASHY OUTPATIEN 1 1 AND SOBEIDA T VISIT THROAT 25 SPECIAL MINUTES HOSPITAL [facility] - 1 1 [facility] OUTPATIEN INC T OFFICE 56539 EAR, NOSE SHASHY OUTPATIEN 1 1 AND SOBEIDA T NEW 30 THROAT MINUTES SPECIAL OFFICE 47876 [place] OUTPATIEN 1 1 [facility] T VISIT INTERNAL 15 MED MINUTES HOSPITAL [facility] - 1 1 [facility] OUTPATIEN INC T [facility] - 1 1 [facility] OUTPATIEN INC T EMERGENCY 47853 [facility] 1 1 [facility] HIGH[facility]URGE NT SEVERITY [facility] - 1 1 [facility] INC T [facility] - 1 1 [facility] OUTPAT[facility]EN INC T OFFICE 21603 ELLEN SCIEVELYN OUTPATIEN 1 1 VISION ANG T VISIT 10 MINUTES HOSPITAL [facility] - 1 1 [facility] OUTPATIEN INC T EMERGENCY 36339 MARLO JACKSON OSWALD 1 1 EMERGENCY DEPARTMEN SERVICES T VISIT HIGH/URGE NT SEVERITY EMERGENCY 03227 [facility] 1 1 [facility] DEPARTMEN INC T VISIT LIMITED/M [facility]OR PROB [facility] - 1 1 [facility] OUTPATIEN INC T [facility]PITAL [facility] - 1 1 [facility] OUTPATIEN INC T OFFICE 90704 PAWSAT PAWSAT OUTPATIEN 1 1 Aug T NEW 30 MINUTES HOSPITAL [facility] - 1 1 [facility] OUTPATIEN INC T EMERGENCY 81391 [facility] 1 1 [facility] VISIT MODERATE SEVERITY EMERGENCY 34767 MARLO SHAH 1 1 EMERGENCY SHANTHI DEPARTMEN SERVICES T VISIT HIGH/URGE NT SEVERITY [facility]OSPITAL [facility] - 1 1 [facility] OUTPAT[facility]EN INC [facility] - 1 1 [facility] - 1 1 [facility] - 1 1 [facility] OUTPATIEN INC OFFICE 43695 [facility] OUTPATIEN 1 [address] DEIDRA G[address] T [facility] 45 MINUTES OFFICE 84081 RAKANHELEN CARIN OUTPATIEN 1 1 JANET GONZALES [facility] 45 MINUTES HOSPITAL [facility] - 1 1 [facility] - 1 1 [facility]PATIEN INC T [facility] - 1 1 [facility] OUTPATIEN INC T EMERGENCY 67071 MARLO JACKSON OSWALD 1 1 EMERGENCY DEPARTMEN SERVICES T VISIT HIGH/URGE NT SEVERITY EMERGENCY 61949 [facility] 1 1 [facility] DEPARTMEN INC T VISIT HIGH/URGE NT SEVERITY [facility] - 1 1 [facility]PATIEN INC [facility] - 1 1 [facility] OUTPATIEN INC EMERGENCY 26552 MARLO AKERS DEPT 1 1 EMERGENCY VISIT SERVICES HIGH SEVERITY& THREAT [facility]ON - 1 1 [facility] OUTPATIEN INC [facility] - 1 1 [facility] 1 1 [facility] 1 1 [facility]PATIEN [facility] 1 1 [facility]PAT[facility]EN [facility] - 1 1 [facility] OUTPATIEN INC OFFICE 07084 [facility] 1 ELOY Reaves MD [facility]ON - 1 1 [facility] OUTPATIEN INC EMERGENCY 70001 [facility] 0 0 [facility] DEPARTMEN INC T VISIT LOW/MODER SEVERITY EMERGENCY 43760 MARLO SHAH, 0 0 EMERGENCY [facility] DEPARTMEN SERVICES T VISIT MODERATE ASSOCIATE SEVERITY [facility] BRANDON - 0 0 [facility] OUTPATIEN INC [facility] - 0 0 [facility] OUTPATIEN INC T EMERGENCY 68764 [facility] 0 0 [facility] DEPARTMEN INC T VISIT MODERATE SEVERITY EMERGENCY 66139 MARLO CORTÉS, 0 0 EMERGENCY [facility] DEPARTMEN SERVICES O T VISIT HIGH/URGE ASSOCIATE NT [facility]ON - 0 0 [facility] OUTPATIEN INC [facility] - 0 0 [facility] OUTPATIEN INC T EMERGENCY 13950 [facility] 0 0 [facility] DEPARTMEN INC T VISIT LOW/MODER SEVERITY EMERGENCY 33961 MARLO SHAH, 0 0 EMERGENCY [facility] SERVICES T VISIT MODERATE ASSOCIATE SEVERITY S HOSPITAL [facility] - 9 9 [facility] OUTPATIEN INC T OFFICE 41725 [facility] [facility], OUTPATIEN 9 9 [place] LAURIE A T VISIT INTERNAL 15 MED MINUTES OFFICE 07226 [facility], OUTPATIEN 9 9 [place] LAURIE A T VISIT INTERNAL 25 MED MINUTES HOSPITAL [facility] - 9 9 [facility] OUTPATIEN INC T OFFICE 07735 [facility] MCLETITIAMIE OUTPATIEN 9 9 [facility], T VISIT INTERNAL KANNAN F 10 MED MINUTES OFFICE 92707 [place], OUTPATIEN 9 9 [place] LAURIE A T VISIT INTERNAL 15 MED MINUTES EMERGENCY 02421 MARLO SHAH, 9 9 EMERGENCY [facility] SERVICES T VISIT HIGH/URGE ASSOCIATE NT S SEVERITY HOSPITAL [facility] - 9 9 [facility] T EMERGENCY 10137 [facility] 9 9 [facility] VISIT MODERATE SEVERITY OFFICE 11827 LEANA DUE[facility] 9 9 CHELSY Headley T VISIT 15 MINUTES EMERGENCY 40042 MARLO CORTÉS, DEPT 9 9 EMERGENCY [facility] VISIT SERVICES O HIGH SEVERITY& ASSOCIATE THREAT S [facility] EMERGENCY 07727 MARLO SHAH, 9 9 EMERGENCY [facility] SERVICES T VISIT MODERATE ASSOCIATE SEVERITY S EMERGENCY 87980 MARLO SHAH, 9 9 EMERGENCY [facility] SERVICES T VISIT HIGH/URGE ASSOCIATE NT S SEVERITY HOSPITAL [facility] - 9 9 [facility] OUTPATIEN [facility] T EMERGENCY 20910 [facility] 9 9 [facility] DEPARTMEN INC T VISIT MODERATE SEVERITY OFFICE 72903 LEANA DUEÑAS OUTPATIEN 9 9 CHELSY Headley T VISIT 15 MINUTES EMERGENCY 82765 [facility] 9 9 [facility] DEPARTMEN INC T VISIT HIGH/URGE NT SEVERITY [facility]OSPITAL [facility] - 9 9 [facility] OUTPATIEN INC T EMERGENCY 42793 MARLO CORTÉS DEPT 9 9 EMERGENCY [facility] VISIT SERVICES O HIGH SEVERITY& ASSOCIATE THREAT S [facility] BR[facility]ON - 9 9 [facility] OUTPATIEN INC T EMERGENCY 40470 MARLO CENTENO DEPT 9 9 EMERGENCY SAL Huffman VISIT SERVICES HIGH SEVERITY& ASSOCIATE THREAT S [facility] EMERGENCY 97530 [facility] DEPT 9 9 [facility] VISIT INC HIGH SEVERITY& THREAT [facility] OFFICE 91564 MARY HERNANDEZ OUTPATIEN 9 9 OSWALDO Franz T VISIT 10 MINUTES HOSPITAL [facility] - 9 9 [facility] OUTPATIEN INC T HOSPITAL [facility] - 9 9 [facility] OUTPATIEN INC T OFFICE 01632 MARY HERNANDEZ OUTPATIEN 9 9 OSWADLO Franz T VISIT 15 MINUTES OFFICE 89365 LEANA DUEÑAS OUTPATIEN 9 9 CHELSY Headley T VISIT 15 MINUTES OFFICE 60086 LEANA DUEÑAS OUTPATIEN 9 9 CHELSY Headley T VISIT 15 MINUTES EMERGENCY 27156 MARLO SHEA DEPT 9 9 EMERGENCY GISELLE Neely VISIT SERVICES HIGH SEVERITY& ASSOCIATE THREAT S [facility]ON - 9 9 [facility] OUTPATIEN INC T OFFICE 09268 LEANA DUEÑAS OUTPATIEN 9 9 CHELSY Headley T VISIT 15 MINUTES OFFICE 64729 LEANA DUEÑAS OUTPATIEN 9 9 CHELSY Headley T VISIT 15 MINUTES HOSPITAL [facility] - 9 9 [facility] OUTPATIEN INC T EMERGENCY 75873 [facility] 9 9 [facility] DEPARTMEN INC T VISIT LOW/MODER SEVERITY EMERGENCY 48086 MARLO CORTÉS, 9 9 EMERGENCY [facility] DEPARTMEN SERVICES O T VISIT MODERATE ASSOCIATE SEVERITY S OFFICE 78206 LEANA DUEÑAS OUTPATIEN 9 9 CHELSY Headley T VISIT 15 MINUTES HOSPITAL [facility] - 9 9 [facility] OUTPATIEN INC T OFFICE 58127 ART BARNARD 9 9 MT STONER T VISIT SERV 25 FOUNDATIO MINUTES EMERGENCY 27532 MARLO SHAH, DEPT 9 9 EMERGENCY [facility] VISIT SERVICES HIGH SEVERITY& ASSOCIATE THREAT S [facility] - 9 9 [facility] OUTPATIEN INC T EMERGENCY 70937 [facility] 9 9 [facility] DEPARTMEN INC T VISIT HIGH/URGE NT SEVERITY OFFICE 89928 LEANA DUEÑAS OUTPATIEN 9 9 CHELSY Headley T VISIT 15 MINUTES EMERGENCY 53821 [facility] 9 9 [facility] DEPARTMEN INC T VISIT MODERATE SEVERITY [facility]OSPITAL [facility] - 9 9 [facility] OUTPATIEN INC T EMERGENCY 81174 MARLO VIDES DEPT 9 9 EMERGENCY [facility] VISIT SERVICES ER R HIGH SEVERITY& ASSOCIATE THREAT S [facility] OFFICE 75749 LEANA DUEÑAS OUTPATIEN 9 9 CHELSY Headley T VISIT 15 MINUTES EMERGENCY 43704 [facility] 9 9 [facility] DEPARTMEN INC T VISIT LOW/MODER SEVERITY [facility]OSP[facility] - 9 9 [facility] OUTPATIEN INC T OFFICE 23329 LEANA DUEÑAS OUTPATIEN 9 9 CHELSY Headley T VISIT 15 MINUTES OFFICE 64240 LEANA DUEÑAS OUTPATIEN 9 9 CHELSY VALENTINO W T VISIT 15 MINUTES OFFICE 84068 LEANA DUEÑAS OUTPATIEN 9 9 CHELSY VALENTINO W T VISIT 15 MINUTES OFFICE 71482 ART BARNARD 9 9 MEDICAL [place] T VISIT SERV 25 FOUNDATIO MINUTES OFFICE 72133 LEANA DUEÑAS OUTPATIEN 8 8 CHELSY VALENTINO W T VISIT 15 MINUTES OFFICE 65549 LEANA DUEÑAS OUTPATIEN 8 8 CHELSY VALENTINO W T VISIT 15 MINUTES EMERGENCY 00899 [facility] 8 8 [facility] DEPARTMEN INC T VISIT LIMITED/M INOR PROB [facility] - 8 8 [facility] OUTPATIEN INC T OFFICE 62530 ART BARNARD 8 8 MEDICAL [place] T VISIT SERV 25 FOUNDATIO MINUTES OFFICE 66778 LEANA DUEÑAS OUTPATIEN 8 8 CHELSY VALENTINO W T VISIT 15 MINUTES OFFICE 59757 LEANA DUEÑAS OUTPATIEN 8 8 CHELSY VALENTINO W T VISIT 15 MINUTES EMERGENCY 90651 [facility] 8 8 [facility] DEPARTMEN INC T VISIT HIGH/URGE NT SEVERITY HOSPITAL [facility] - 8 8 [facility] OUTPATIEN INC T EMERGENCY 69708 JENNIFER ROSARIO, 8 8 RUST T VISIT ON MODERATE SEVERITY OFFICE 46267 LEANA DUEÑAS OUTPATIEN 8 8 CHELSY VALENTINO W T VISIT 15 MINUTES HOSPITAL [facility] - 8 8 [facility]PAT[facility]EN INC T [facility] - 8 8 [facility] OUTPATIEN INC T OFFICE 14737 SAMANTA ENGLAND OUTPATIEN 8 8 CHUCK WOODS T VISIT 25 MINUTES OFFICE 04688 BUNNY LORD, CONSULTAT 8 8 MT GRIFFITHS NEW/ESTAB FOUNDATIO PATIENT 60 MIN OFFICE 76136 LEANA DUEÑAS OUTPATIEN 8 8 CHELSY Headley T VISIT 15 MINUTES EMERGENCY 31062 [facility] 8 8 [facility] DEPARTMEN INC T VISIT LIMITED/M [facility] - 8 8 [facility] OUTPATIEN INC T OFFICE 48759 ALLRAN ALLRAN CONSULTAT 8 8 JR EDWARD ION CHARLES F CHARLES F NEW/ESTAB PATIENT 60 MIN [facility] 8 [facility] - 8 8 [facility] OUTPATIEN INC T EMERGENCY 87082 [facility] 8 8 [facility] DEPARTMEN INC T VISIT MODERATE SEVERITY OFFICE 29782 LEANA DUEÑAS OUTPATIEN 8 8 CHELSY Headley T VISIT 15 MINUTES EMERGENCY 20612 JENNIFER ROSARIO, 8 8 [facility] E DEPARTMEN CORPORATI T VISIT ON HIGH/URGE NT SEVERITY [facility] 8 [facility] T EMERGENCY 80209 [facility] 8 8 [facility] DEPART[facility] INC T VISIT LIMITED/M INOR PROB EMERGENCY 06782 JENNIFER CORTÉS, 8 8 NATIONAL GRACE DEPARTMEN CORPORATI O T VISIT ON LOW/MODER SEVERITY [facility] 8 8 [facility] OUT[facility] T EMERGENCY 48339 [facility] 8 8 [facility] DEPARTMEN INC T VISIT LOW/MODER SEVERITY OFFICE 74718 LEANA DUEÑAS OUTPATIEN 8 8 CHELSY Headley T VISIT 15 MINUTES [facility] 8 8 [facility] T OFFICE 61678 LEANA DUEÑAS OUTPATIEN 8 8 CHELSY Headley T VISIT 15 MINUTES OFFICE 40547 ART LANDIN 8 8 KANNAN Franz T VISIT CARDIOLOG 40 Y MINUTES CONSULTAN T OFFICE 82125 LEANA DUEÑAS OUTPATIEN 8 8 CHELSY Headley T VISIT 15 MINUTES OFFICE 20968 LEANA DUEÑAS OUTPATIEN 8 8 CHELSY Headley T NEW 30 MINUTES INITIAL 37024 [facility] CARIAS 8 8 [facility] PATIENT [id number] 8 8 [facility] OUTPATIEN INC T EMERGENCY 86787 [facility] 8 8 [facility] DEPARTMEN INC T VISIT HIGH/URGE NT SEVERITY OFFICE 65441 [facility] M[facility]EM[facility] OUTPATIEN 8 8 [facility], T VISIT INTERNAL KANNAN F 15 MED MINUTES HOSPITAL [facility] - 8 8 [facility]PATIEN [facility] - 8 8 [facility] OUTPATIEN INC T OFFICE 13245 [facility] M[facility] OUTPATIEN 8 8 [facility]ACK[facility] , T VISIT 5 INTERNAL KANNAN F MINUTES MED OFFICE 50092 [facility] OUTPATIEN 8 8 [facility], T VISIT INTERNAL KANNAN F 15 MED MINUTES EMERGENCY 34798 [facility] 8 8 [facility] DEPARTMEN INC T VISIT LIMITED/M [facility] - 8 8 [facility] OUTPATIEN INC T OFFICE 15635 [facility] SCOTTY OUTPATIEN 8 8 ZACKERY EDWARD T VISIT INTERNAL KANNAN F 15 [facility] - 8 8 [facility] OUTPATIEN INC T EMERGENCY 89731 [facility] DEPT 8 8 [facility] VISIT [facility] HIGH [facility]VERITY& THREAT [facility] - 8 8 [facility] OUTPATIEN INC T OFFICE 18175 SAMANTA ENGLAND, CONSULTAT 8 8 CHUCK TERAN NEW/ESTAB PATIENT 80 MIN OFFICE 66812 JAEL AMEZQUITAAT 8 8 [facility] PATIENT 40 MIN
--- OUTSIDE RECORDS SUMMARY | 2017-04-15 17:22 | External Medical Summary Rpt | CCD ---
Author Author , LEOBARDO Organization LEOBARDO Address Unknown Phone [email or web address] Care Team Providers Care Patient Registration Supervisor Name Role Phone JARED-YANIQUE MOH, Unavailable Unavailable [...] PATHOLOGY Unavailable Unavailable SERVICES, [facility] Unavailable [facility], [facility]available Unavailable [facility], [facility] COTTO BRO, COTTO Unavailable [...] Unavailable [facility] Unavailable Unavailable SERVICE, [facility] Unavailable Unavailable SERVICE, [facility] BRIZUELA JAM, BRIZUELA JAM Unavailable Unavailable SOMERS LAR, SOMERS LAR Unavailable Unavailable José LYONS MD Unavailable Unavailable PSCJosé MD [facility], [facility] Unavailable Unavailable [facility], Unavailable Unavailable [facility] TORO & Unavailable Unavailable DUBILIER, [...] Unavailable SPECIAL, EAR, NOSE AND THROAT SPECIAL [facility] Unavailable [place]available [place], [facility] [place] GARO FERNANDEZ, Unavailable [...] ERVIN RODRIGEZ, Unavailable Unavailable ERVIN DEL ROSARIO [facility] Unavailable Unavailable INC, [facility] Unavailable Unavailable HOSPITAL P, [facility] BARRY CARY HARVEY, Unavailable Unavailable VIJI GAVIRIA Unavailable Unavailable [facility], Unavailable Unavailable [facility], Unavailable Unavailable [facility] MARIANA GALEANA, Unavailable Unavailable MARIANA GALEANA [facility] Unavailable Unavailable [place], [facility] [place], [facility] Unavailable [facility] ROB ZAMUDIO, Unavailable Unavailable ROB ZAMUDIO [facility] Unavailable Unavailable JANET KEKELLEN GONZALES [facility] Unavailable Unavailable ERVIN WICK, Unavailable Unavailable ERVIN HOFF [facility] Unavailable Unavailable LLC, D, [facility], D [facility]available [facility], [facility] Unavailable Unavailable IMAGING [facility], [facility] FORTINO SAENZ, , Unavailable [...] [facility] Unavailable Unavailable [facility] Unavailable Unavailable [facility] Unavailable Unavailable [facility] M [facility] D [facility], M E D Unavailable Unavailable [facility], M [facility] Unavailable Unavailable [facility], Unavailable Unavailable [facility] Unavailable Unavailable SERVICES, [facility] MARNI LUIS ALFREDO, Unavailable Unavailable [...] [facility], Unavailable [facility] Unavailable Unavailable EMER[facility]ENCY PH[facility], [facility] GARCIA RAY, GARCIA Unavailable Unavailable RAY NATACHA PHI, NATACHA PHI Unavailable Unavailable NATACHA, NICOLE A, Unavailable Unavailable NATACHA, NICOLE A [facility] Unavailable Unavailable HOSPITALS, [facility], Unavailable Unavailable [facility], [facility] AND Unavailable Unavailable [facility], Unavailable Unavailable [facility] Madelyn Lemus MD, Unavailable Unavailable Kylee Valverde MD, Unavailable Unavailable Kylee CORDERO [facility] Unavailable Unavailable [address], [facility] FRANCISCO SINGH Unavailable Unavailable MARCELINO DEIDRA, MARCELINO Unavailable Unavailable DEIDRA [facility] Unavailable Unavailable [place], [facility] WEHRMAN III PETR, Unavailable Unavailable WEHRMAN III PETR MOJICA, MOJICA Unavailable Unavailable [facility] Unavailable Unavailable [facility], Unavailable Unavailable [facility] [...] [facility] HYPERTENSIO INC N I2510 ASHD [place] 01-18-2017 [facility] CORONARY [facility] ARTERY W/O INC ANGINA PECTORIS R011 CARDIAC 01-18-2017 [facility]UR[facility]UR [facility] UNSPECIFIED INC E119 TYPE 2 01-09-2017 [facility] DIABETES [facility] MELLITUS INC WITHOUT COMPLICATIO NS I10 ESSENTIAL 01-09-2017 [facility] PRIMARY [facility] HYPERTENSIO INC N [id number] CONTUSION 01-09-2017 [facility] OTHER PART [facility] OF HEAD INC INITIAL ENCOUNTER Q9356NE SPRAIN 01-09-2017 [facility] UNSPECIFIED [facility] SITE RT INC KNEE INITIAL ENCNTR 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 [facility]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 INC N21467 OTHER LONG 01-09-2017 [facility] TERM [facility] CURRENT INC DRUG THERAPY J449 CHRONIC 01-03-2017 [facility] OBSTRUCTIVE [facility] PULMONARY INC DISEASE UNS R55 SYNCOPE AND 01-03-2017 [facility] COLLAPSE [facility] INC N54879 PERSONAL 01-03-2017 [facility] HISTORY OF [facility] NICOTINE INC DEPENDENCE N3000 ACUTE 12-23-2016 [facility] CYSTITIS [facility] WITHOUT INC HEMATURIA B51665 PAIN IN 11-06-2016 [facility] RIGHT LEG [facility] INC B42644 PAIN IN 11-06-2016 [facility] LEFT LEG [facility] INC J3089 OTHER 10-31-2016 [facility] [place] J310 CHRONIC 10-31-2016 [facility] RHINITIS [facility] [place] J4550 SEVERE 10-31-2016 [facility] PERSISTENT [facility] [place] UNCOMPLICAT ED Z99773 [facility] TO 10-31-2016 [facility] OTHER FOODS [facility] [place] 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 ATHY LUMB RGN M549 DORSALGIA 10-23-2016 [facility] UNSPECIFIED [facility] INC R300 DYSURIA 10-19-2016 [facility] INC E039 HYPOTHYROID 10-05-2016 [facility] ISM [facility] UNSPECIFIED INC M7702 MEDIAL 09-19-2016 [facility] EPICONDYLIT [facility] IS LEFT INC ELBOW J040 ACUTE 2016 [facility] LARYNGITIS PHYSICIAN GROUP T53776 SPONDYLOSIS 09-15-2016 [facility] MYELOPATH/R HOSPITALS ADICULOPATH Y THOR RGN D53281 SPONDYLOSIS 09-15-2016 [facility] MYELOPATH/R HOSPITALS ADICULPATHY LS RGN M546 PAIN IN 09-15-2016 [facility] J069 ACUTE UPPER 09-12-2016 [facility] RESPIRATORY INC INFECTION UNSPECIFIED P48070 PAIN IN 09-08-2016 [facility] LEFT ELBOW PHYSICIANS GROUP J40 BRONCHITIS 09-06-2016 [facility] NOT N EMERGENCY SPECIFIED PHYS ACUTE OR CHRONIC R05 COUGH 09-06-2016 [facility] RADIOLOGY M542 CERVICALGIA 08-29-2016 [facility] R51 HEADACHE 08-29-2016 [facility] [id number] CONTUSION 08-29-2016 [facility] OF SCALP PHYSICIANS, INITIAL PLLC ENCOUNTER Z041CSR UNSPECIFIED 08-29-2016 [place] INJURY OF MEDICAL NECK IMAGING ASS INITIAL ENCOUNTER S47TAIX UNSPECIFIED 08-29-2016 [facility] INITIAL SERVICE ENCOUNTER J44904 PRIMARY 08-22-2016 [place] OSTEOARTHRI MEDICAL TIS LEFT IMAGING ASS ELBOW K8689 OTHER 08-15-2016 [facility] SPECIFIED PHYSICIANS, DISEASES OF PLLC PANCREAS R1084 GENERALIZED 08-15-2016 [facility] ABDOMINAL PHYSICIANS, PAIN PLLC R8299 OTHER 08-07-2016 [facility] ABNORMAL [facility] FINDINGS IN INC URINE Q36246 MIGRAINE 08-04-2016 [facility] UNS PHYSICIANS, INTRACTABLE PLLC W/STATUS MIGRAINOSUS Z02510 UNSPECIFIED 08-04-2016 [facility] WITH ACUTE LLC EXACERBATIO N E9733WT CONTUSION 08-04-2016 [facility] EYEBALL & PHYSICIANS, ORBITAL PLLC TISSUES RT EYE INIT I73998 ELEVATED 07-26-2016 [facility] P UNSPECIFIED K529 NONINFECTIV 07-14-2016 [facility] E [facility] GASTROENTER INC ITIS & COLITIS UNS I509 HEART 07-12-2016 [facility]PEC[facility] P R0789 OTHER CHEST 07-12-2016 [facility] PAIN PHYSICIANS, PLLC I272 OTHER 07-05-2016 [facility] SECONDARY [facility] PULMONARY INC HYPERTENSIO N I5030 UNSPECIFIED 07-05-2016 [facility] DIASTOLIC [facility] CONGESTIVE INC HEART FAILURE I959 HYPOTENSION 07-05-2016 [facility] UNSPECIFIED INC E109 TYPE 1 07-04-2016 [facility] P WITHOUT COMPLICATIO NS I9589 OTHER 07-04-2016 [facility] HYPOTENSION PHYSICIANS, [facility] R400 SOMNOLENCE 07-04-2016 [facility]ICI[facility] G8929 OTHER 06-29-2016 [facility] CHRONIC [facility] PAIN INC M4807 SPINAL 06-29-2016 [facility] STENOSIS [facility] LUMBOSACRAL INC REGION R042 HEMOPTYSIS 06-28-2016 [facility] R918 OTHER 06-28-2016 [facility] NONSPECIFIC [facility] ABNORMAL INC FINDING OF LUNG FIELD Z09572 TYPE 2 06-21-2016 [facility] DIABETES [facility] MELLITUS INC W/HYPOGLYCE NIKOLAY W/O COMA M5432 SCIATICA 06-13-2016 [facility] LEFT SIDE PHYSICIANS, [facility] M5442 LUMBAGO 06-13-2016 [facility] WITH PHYSICIANS, SCIATICA [facility] LEFT SIDE O72206 TYPE 2 06-12-2016 [facility] HOME MELLITUS MEDICAL WITH FOOT EQUIPME ULCER Q52018 TYPE 2 06-12-2016 [facility] MELLITUS MEDICAL WITH OTHER EQUIPME SKIN ULCER G894 CHRONIC 06-12-2016 [facility] PAIN PHYSICIANS SYNDROME GROUP M4307 SPONDYLOLYS 06-12-2016 [facility] IS PHYSICIANS LUMBOSACRAL GROUP REGION L24048 PERSONAL 06-12-2016 [facility] HISTORY OF PHYSICIANS OTHER GROUP SPECIFIED CONDITIONS E876 HYPOKALEMIA 06-06-2016 [facility]ICIANS, [facility] K5900 CONSTIPATIO 06-06-2016 [place] N MEDICAL UNSPECIFIED IMAGING ASS N200 CALCULUS OF 06-06-2016 [facility]IDNEY [facility] N390 URINARY 06-06-2016 [facility] TRACT PHYSICIANS, INFECTION [facility] SITE NOT SPECIFIED R531 WEAKNESS 06-06-2016 [facility] R634 ABNORMAL 06-06-2016 [facility] WEIGHT LOSS MEDICAL [facility] ASS J050 ACUTE 05-18-2016 [facility] OBSTRUCTIVE PHYSICIANS, LARYNGITIS [facility] CROUP L299 PRURITUS 05-18-2016 [facility] UNSPECIFIED PHYSICIANS, [facility] M5127 OT 05-17-2016 [place] INTERVERTEB MEDICAL RAL DISC IMAGING ASS DISPLACEMEN T LS REGION M5136 OT 05-17-2016 [place] 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 M545 LOW BACK 05-17-2016 [place] PAIN MEDICAL IMAGING ASS L77418 PAIN IN 05-13-2016 [place] RIGHT KNEE MEDICAL IMAGING ASS B8326HF CONTUSION 05-13-2016 [facility] OF RIGHT PHYSICIANS, KNEE PLLC INITIAL ENCOUNTER L08540 MIGRAINE 05-09-2016 [facility] W/O AURA PHYSICIANS, NOT INTRACT PLLC W/O STAT MIGRAIN P75790 PAIN IN 05-08-2016 [facility] RIGHT HIP [facility] INC B351 TINEA 04-13-2016 [facility] UNGUIUM FOOT & ANKLE CE I7090 UNSPECIFIED 04-13-2016 [facility] FOOT & ATHEROSCLER ANKLE CE OSIS Z86875 PAIN IN 04-13-2016 [facility] UNSPECIFIED FOOT & LIMB ANKLE CE R0781 PLEURODYNIA 03-31-2016 [facility] R52 PAIN 03-31-2016 [facility] UNSPECIFIED AMBULANCE SERVICE Y59918O CONTUSION 03-31-2016 [facility] UNS FRONT PHYSICIANS, WALL THORAX PLLC INITIAL ENCNTR R504MAI UNSPECIFIED 03-31-2016 [place] INJURY OF MEDICAL THORAX IMAGING ASS INITIAL ENCOUNTER L0291 CUTANEOUS 03-20-2016 [facility] ABSCESS [facility] UNSPECIFIED INC L30925P CONTUSION 03-17-2016 [facility] LEFT FRONT PHYSICIANS, WALL THORAX PLLC INITIAL ENC I64615I CONTUSION 03-17-2016 [facility] OF LEFT PHYSICIANS, SHOULDER PLLC INITIAL ENCOUNTER A70148 NON-PRSS 03-14-2016 [facility] CHRN ULCER PHYSICIANS SKIN OTH GROUP SITES UNS SEVERITY C04845 CELLULITIS 03-09-2016 [facility] OF [facility] ABDOMINAL INC WALL S2074VQ OTHER 03-09-2016 [facility] COMPLICATIO PHYSICIANS, NS PROC NEC PLLC INITIAL ENCOUNTER E049 NONTOXIC 02-17-2016 [facility] GOITER PHYSICIANS UNSPECIFIED GROUP R1310 DYSPHAGIA 02-17-2016 [facility] UNSPECIFIED PHYSICIANS GROUP H89475M UNS FOREIGN 02-17-2016 [facility] BODY PHYSICIANS LARYNX CAUS GROUP OTH INJURY INIT ENC H87304 PAIN IN 02-10-2016 [place] LEFT HIP MEDICAL IMAGING ASS V444PHO STRAIN 02-10-2016 [facility] MUSCLE FASC [facility] & TENDON INC NECK LEVL INIT ENC T1544BE CONTUSION 02-10-2016 [facility] OF LEFT HIP [facility] INITIAL INC ENCOUNTER J56387P UNSPECIFIED 02-10-2016 [place] INJURY MEDICAL LEFT HIP IMAGING ASS INITIAL ENCOUNTER S39522 UNSPECIFIED 02-07-2016 [facility] KERATITIS LEFT EYE R221 LOCALIZED 02-05-2016 [facility] SWELLING [facility] MASS AND INC LUMP NECK R4702 DYSPHASIA 02-03-2016 [facility] INC R5383 OTHER 06-15-2015 [facility] FATIGUE [facility] INC O20241R CONTUSION 06-03-2015 [facility] RT FRONT PHYSICIANS, WALL THORAX PLLC INITIAL ENCOUNTER B91281 PAIN IN 05-29-2015 [place] RIGHT WRIST MEDICAL IMAGING ASS O37595 PAIN IN 05-29-2015 [place] UNSPECIFIED MEDICAL HIP IMAGING ASS D15675 PAIN IN 05-29-2015 [place] LEFT KNEE MEDICAL IMAGING ASS R9246CP CONTUSION 05-29-2015 [place] OF NOSE MEDICAL INITIAL IMAGING ASS ENCOUNTER T71399V UNSPECIFIED 05-29-2015 [facility] SPRAIN [facility] RIGHT WRIST INC INITIAL ENCOUNTER K8776ZW SPRAIN 05-29-2015 [facility] UNSPECIFIED [facility] SITE LT INC KNEE INITIAL ENCNTR Z043 ENCOUNTER 05-29-2015 [place] EXAM & MEDICAL OBSERVATION IMAGING ASS FOLLOW OTH ACCIDENT E1121 TYPE 2 05-25-2015 [facility] P W/DIABETIC NEPHROPATHY I96 GANGRENE 05-25-2015 [facility] NOT ANESTH OF ELSEWHERE THE BLUE CLASSIFIED T51723 NON-PRSS 05-25-2015 [facility] & OTH PART RT DUBILIER FT W/UNS SEVERITY V79220 OTHER ACUTE 05-25-2015 [facility] OSTEOMYELIT [facility] P IS RIGHT ANKLE AND FOOT Z9111 PATIENTS 05-25-2015 [facility] CE WITH HOSPITAL P DIETARY REGIMEN R94107 NON-PRSS 05-24-2015 [facility] MEDICAL OTH PART LT IMAGING ASS FOOT UNS SEVERITY M2011 HALLUX 05-24-2015 [facility] VALGUS PHYSICIANS, ACQUIRED [facility] RIGHT FOOT 7231 CERVICALGIA 03-06-2015 [facility] 7802 SYNCOPE AND 03-06-2015 [facility] COLLAPSE MEDICAL [facility]ING ASS 7840 HEADACHE 03-06-2015 [facility] 24631 INJURY OF 03-06-2015 [place] FACE AND MEDICAL NECK OTHER IMAGING ASS AND UNSPECIFIED 12988 ACUTE PAIN 03-05-2015 [facility] DUE TO AMBULANCE TRAUMA SERVICE 70995 PAIN IN 03-05-2015 [place] JOINT MEDICAL PELVIC IMAGING ASS REGION AND THIGH 8470 NECK SPRAIN 03-05-2015 [facility] AND STRAIN PHYSICIANS, [facility] 920 CONTUSION 03-05-2015 [facility] OF FACE PHYSICIANS, SCALP AND [facility] NECK EXCEPT EYE E8889 UNSPECIFIED 03-05-2015 [facility] 7881 DYSURIA 02-24-2015 [place] [address] DIAB W/O 02-09-2015 [facility] COMP TYPE I HOME [JUV] NOT MEDICAL STATED EQUIPME UNCNTRL 01903 OBSTRUCTIVE 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 EQUIPME 81417 EXTRINSIC 02-09-2015 [facility], HOME UNSPECIFIED MEDICAL EQUIPME 97086 DIAB W/OTH 02-03-2015 [facility] MANIFESTS [facility] TYPE I INC [JUV] NOT UNCNTRL 4019 UNSPECIFIED 02-03-2015 [facility] ESSENTIAL [facility] HYPERTENSIO INC N 4139 OTHER AND 02-03-2015 [facility] UNSPECIFIED [facility] ANGINA INC PECTORIS 496 CHRONIC 02-03-2015 [facility] AIRWAY [facility] OBSTRUCTION INC NEC 55210 OTHER 02-03-2015 [facility] MALAISE AND [facility] FATIGUE INC V5867 LONG-TERM 02-03-2015 [facility] USE OF [facility] INSULIN INC 7906 OTHER 02-01-2015 [facility] ABNORMAL [facility] BLOOD INC CHEMISTRY V7389 SPECIAL 02-01-2015 [facility] SCREENING [facility] EXAMINATION INC OTH SPEC VIRAL DZ 7295 PAIN IN 01-06-2015 [place] SOFT MEDICAL TISSUES OF IMAGING ASS LIMB 16215 SWELLING OF 01-06-2015 [facility] LIMB MEDICAL IMAGING ASS 7823 EDEMA 01-06-2015 [facility] INC 81980 CHEST PAIN 12-31-2014 [place] UNSPECIFIED MEDICAL IMAGING ASS 50637 PAIN IN 12-17-2014 [place] JOINT, MEDICAL SHOULDER IMAGING ASS REGION 55615 PAIN IN 12-17-2014 [place] JOINT, MEDICAL FOREARM IMAGING ASS 81764 PAIN IN 12-17-2014 [place] JOINT, MEDICAL LOWER LEG IMAGING ASS 8408 SPRAIN&STRA 12-17-2014 [facility] IN OTH SPEC [facility] SITES INC SHOULDER&UP PER ARM 8409 SPRAIN&STRA 12-17-2014 [facility] IN UNSPEC PHYSICIANS, SITE [facility] SHOULDER&UP PER ARM 62790 SPRAIN AND 12-17-2014 [facility] STRAIN OF [facility] UNSPECIFIED INC SITE OF WRIST 8449 SPRAIN&STRA 12-17-2014 [facility] IN OF [facility] UNSPECIFIED INC SITE OF KNEE&LEG 9221 CONTUSION 12-17-2014 [facility] OF CHEST [facility] WALL INC 41025 OTHER 12-17-2014 [place] INJURY OF MEDICAL CHEST WALL IMAGING ASS 52745 OTHER 12-17-2014 [place] INJURY OF MEDICAL OTHER SITES IMAGING ASS OF TRUNK 9592 INJURY 12-17-2014 [place] OTHER&UNSPE MEDICAL CIFIED IMAGING ASS SHOULDER&UP PER ARM 9593 INJURY 12-17-2014 [place] OTHER&UNSPE MEDICAL CIFIED IMAGING ASS ELBOW FOREARM&WRI ST 9597 INJURY 12-17-2014 [place] OTHER&UNSPE MEDICAL CIFIED KNEE IMAGING ASS LEG ANKLE&FOOT V714 OBSERVATION 12-17-2014 [place] FOLLOWING MEDICAL OTHER IMAGING ASS ACCIDENT 5718 OTHER 12-16-2014 [facility] CHRONIC SERV NONALCOHOLI [facility] C LIVER DISEASE 58372 ABDOMINAL 12-16-2014 [facility] PAIN RIGHT SERV UPPER [facility] 7892 SPLENOMEGAL 12-16-2014 [facility] Y SERV [facility]OUNDATION 2512 HYPOGLYCEMI 11-25-2014 [facility] A, [facility] UNSPECIFIED INC 45421 SHORTNESS 11-11-2014 [facility] MEDICAL OF BREATH SERV FOUNDATION 48958 DIAB 10-23-2014 [facility] W/NEURO [facility] MANIFESTS INC TYPE II/UNS TYPE UNCNTRL 42077 UNSPECIFIED 10-23-2014 [facility] CELLULITIS [facility] AND INC ABSCESS OF TOE 17801 ULCER OF 10-23-2014 [facility] OTHER PART PATHOLOGY OF FOOT SERVICES 7224 DEGENERATIO 10-17-2014 [place] N OF MEDICAL CERVICAL IMAGING ASS INTERVERTEB RAL DISC 18911 DIAB W/O 09-27-2014 [facility] COMP TYPE [facility] II/UNS NOT INC STATED UNCNTRL 2724 OTHER AND 09-27-2014 [facility] UNSPECIFIED [facility] INC HYPERLIPIDE NIKOLAY 13690 OBESITY, 09-27-2014 [facility] UNSPECIFIED COOL INTERNAL MED 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 INC UNSPECIFIED 51098 ALTERED 09-27-2014 [facility] MENTAL COOL STATUS INTERNAL MED 7862 COUGH 09-27-2014 [facility] 74425 POISONING 09-27-2014 [facility] BY OPIUM , ZACKERY UNSPECIFIED INTERNAL MED E8502 ACCIDENTAL 09-27-2014 [facility] P ATED NARCOTICS 5180 PULMONARY 09-26-2014 [place] COLLAPSE [facility]ICAL IMAGING ASS 50530 FEVER 09-26-2014 [facility] UNSPECIFIED MEDICAL IMAGING ASS 7869 OTH 09-26-2014 [place] SYMPTOMS MEDICAL INVOLVING IMAGING ASS RESPIRATORY SYSTEM&CHES T V053 NEED PROPH 09-07-2014 [place] [facility] VACC&INOCUL SERV AT AGAINST FOUNDATION VIRAL HEP 87031 CONTUSION 09-03-2014 [facility] P 65758 CONTUSION 09-03-2014 [facility] P 03388 CLOSED 05-01-2014 [facility] FRACTURE PHYSICIANS METACARPAL GROUP BONE SITE UNSPECIFIED E8888 OTHER FALL 04-28-2014 [facility] N EMERGENCY PHYS V1582 PERS HX 04-28-2014 [facility] TOBACCO USE [facility] PRESENTING INC HAZARDS HEALTH 2104 BENIGN 04-27-2014 E[facility], NOSE NEOPLASM AND THROAT OTHER&UNSPE SPECIAL CIFIED PARTS MOUTH 37734 DYSFUNCTION 04-27-2014 [facility], NOSE OF AND THROAT EUSTACHIAN SPECIAL TUBE 11626 OTOGENIC 04-27-2014 [facility], NOSE PAIN AND THROAT SPECIAL 70722 DYSPHAGIA 04-27-2014 [facility], NOSE UNSPECIFIED AND THROAT SPECIAL 4770 ALLERGIC 04-13-2014 [facility] LUIS ALFREDO DUE TO POLLEN 4778 ALLERGIC 04-13-2014 [facility] RH[facility]IS [facility] AL[facility] DUE TO OTHER ALLERGEN 4772 ALLERGIC 04-06-2014 [facility] RHINITIS LUIS ALFREDO DUE TO ANIMAL HAIR AND DANDER 54586 CHRONIC 04-06-2014 [facility] OBSTRUCTIVE LUIS ALFREDO [facility]HMA UNSPECIFIED 47996 SENSORINEUR 04-03-2014 [facility], NOSE AL HEARING AND THROAT LOSS SPECIAL BILATERAL 2728 OTHER 03-19-2014 [facility] 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 31194 DIAB 03-16-2014 [facility] TYPE II/UNS NOT UNCNTRL 5939 UNSPECIFIED 03-03-2014 [facility] DISORDER N EMERGENCY OF KIDNEY PHYS AND URETER 5990 URINARY 03-03-2014 [facility] TRACT N EMERGENCY INFECTION PHYS SITE NOT SPECIFIED 66923 OTHER 01-28-2014 [facility] DISORDER OF STOMACH AND DUODENUM 5715 CIRRHOSIS 01-28-2014 [facility] WITHOUT MENTION OF ALCOHOL 5723 PORTAL 01-28-2014 [facility] N V7651 SPECIAL 01-28-2014 [facility] NEOPLASMS COLON 2168 BENIGN [...] GOITER, 12-23-2013 [facility] UNSPECIFIED [facility] INC 02029 ABDOMINAL 12-15-2013 [facility] PAIN OTHER [facility] SPECIFIED INC SITE 09188 OTHER ACUTE 12-01-2013 [facility] 61133 ANEURYSM OF 12-01-2013 [facility] MEDICAL SPLENIC SERV ARTERY FOUNDATIO 5778 OTHER 12-01-2013 [facility] MEDICAL SPECIFIED SERV DISEASE OF FOUNDATIO PANCREAS 74733 DIARRHEA 12-01-2013 [facility] 26240 ABDOMINAL 12-01-2013 [facility] PAIN, SERV UNSPECIFIED FOUNDATIO SITE 7948 NONSPECIFIC 12-01-2013 [place] MED[facility] ABNORMAL SERV RESULTS FOUNDATIO LIVR FUNCTION STUDY V762 SCREENING 11-19-2013 [facility] MALIGNANT NEOPLASM OF THE CERVIX 91872 OTHER CHEST 11-08-2013 [facility] PAIN N EM[facility] 76143 OTHER 11-08-2013 [place] NONSPECIFIC MEDICAL ABNORMAL IMAGING ASS FINDING OF LUNG FIELD 7242 LUMBAGO 09-23-2013 [facility] V571 OTHER 09-23-2013 [facility] THERAPY INC V5869 LONG-TERM 09-17-2013 [facility] ([facility] USE OF INC OTHER MEDICATIONS 7226 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 UNSPEC 22461 DEGEN 09-11-2013 [facility] LUMBAR/LUMB SERV OSACRAL FOUNDATIO INTERVERTEB RAL DISC 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 10476 MORBID 08-25-2013 [facility]ITY [facility] P 4409 GENERALIZED 08-25-2013 [place] [facility]ICAL UNSPECIFIED IMAGING ASS ATHEROSCLER OSIS 4471 STRICTURE 08-25-2013 [facility] 4830 PNEUMONIA 08-25-2013 [facility] TO [facility] P PNEUMONIAE 96878 SCOLIOSIS , 08-25-2013 [place] IDIOPATHIC [facility]ICAL IMAGING ASS V8541 BODY MASS 08-25-2013 [facility] 40.0-44.9 HOSPITAL P ADULT 4829 UNSPECIFIED 08-23-2013 [facility] BACTERIAL [facility] PNEUMONIA SERVICES 44059 OTHER 08-23-2013 [place] DISEASES OF MEDICAL LUNG NOT IMAGING ASS ELSEWHERE CLASSIFIED 31541 DEGEN 08-23-2013 [place] THORACIC/TH MEDICAL ORACOLUMBAR IMAGING ASS INTERVERTEB RAL DISC 3540 CARPAL 08-20-2013 [facility] MITCH 7238 OTHER 08-20-2013 [facility] SYNDROM[facility]UROLOGY AFFECTING CENTER MITCH CERVICAL REGION 13823 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-2013 [place]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 56908 SPINAL STEN 08-18-2013 [place] LUMB REG MEDICAL W/O IMAGING ASS NEUROGENIC CLAUDICATIO N 8404 ROTATOR 07-26-2013 [facility] STRAIN INC 5989 UNSPECIFIED 05-06-2013 [facility] STRICT[facility] P 18075 UNSPECIFIED 04-29-2013 [facility] URETHRITIS [facility] P 5952 OTHER 04-08-2013 [facility] CYSTITIS [facility] P 00600 DIAB W/O 04-03-2013 [facility] MENTION [facility] COMP TYPE I INC [JUV TYPE] UNCNTRL 14085 UNSPECIFIED 04-03-2013 [facility] CONSTIPATIO SERVICES N 23055 OTHER 03-31-2013 [facility] CHRONIC [facility] ALLERGIC CONJUNCTIVI TIS 54616 NUCLEAR 03-18-2013 [facility] [facility] 3669 UNSPECIFIED 03-18-2013 [facility] CAT[facility]ACT [facility] INC V148 PERSONAL 03-18-2013 [facility] HISTORY [facility] ALLERGY OTH INC SPEC MEDICINAL AGTS 2689 UNSPECIFIED 02-25-2013 [facility] VITAMIN D [facility] DEFICIENCY 4919 UNSPECIFIED 02-04-2013 [facility] CHRONIC [facility] BRONCHITIS 68396 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 [facility] 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[facility] STATUS ASTHMATICUS 94257 MIGRAINE 01-30-2013 [facility] UNSP W/O [facility] INTRACT W/O INTERNAL STATUS MED MIGRAINOSUS 52381 ABDOMINAL 01-23-2013 [facility], LEFT PHYSICIANS LOWER LA QUADRANT 460 ACUTE 01-22-2013 [facility] NASOPHARYNG [facility] ITIS INTERNAL MEDI 35582 VISUAL 01-14-2013 [facility] 3688 OTHER 01-14-2013 [place] [facility] DISTURBANCE S 490 BRONCHITIS 12-28-2012 [facility] NOT VAL[facility] SPECIFIED INTERNAL ACUTE OR MED CHRONIC 5110 PLEURISY 12-20-2012 [facility] WITHOUT [facility] MENTION INC EFFUS/[place] [address] PAINFUL 12-20-2012 [facility] RESPIRATION COOL INTERNAL MED 39275 DIAB W/O 12-17-2012 M E D MENTION SUPPLIES COMP TYPE II/UNS TYPE UNCNTRL 41112 URINARY 11-27-2012 [facility] FREQUENCY COOL INTERNAL MEDI 6279 UNSPECIFIED 11-13-2012 [facility] MENOPAUSAL& INC POSTMENOPAU HERBERT DISORDER 69448 PATELLAR 11-13-2012 [facility] TENDINITIS PHYSICIANS GROUP 43233 ACHILLES 11-13-2012 [facility] OR HOME TENDINITIS MEDICAL EQUIPME 21299 OTHER 11-13-2012 [facility] SYNOVITIS PHYSICIANS AND GROUP TENOSYNOVIT IS 7289 UNSPECIFIED 11-13-2012 [facility] DISORDER PHYSICIANS OF MUSCLE GROUP LIGAMENT&FA SCIA 48636 DISORDER OF 11-13-2012 [facility] UNSPECIFIED V4981 ASYMPTOMATI 11-13-2012 [facility] MEDICAL POSTMENOPAU IMAGING ASS HERBERT STATUS 06974 OSTEOARTHRO 11-07-2012 [facility] UNSPEC MEDICAL WHETHER IMAGING ASS GEN/LOC LOWER LEG 4739 UNSPECIFIED 10-17-2012 [facility] SINUSITIS COOL INTERNAL MEDI 6931 DERMATITIS 09-30-2012 [facility] DUE TO FOOD LUIS ALFREDO TAKEN INTERNALLY V727 DIAGNOSTIC 09-30-2012 [facility] SKIN AND LUIS ALFREDO SENSITIZATI ON TESTS 96616 URGE 08-29-2012 [facility] P 2449 UNSPECIFIED 08-28-2012 [facility] HYPOTHYROID INTERNAL ISM MEDI 90151 OTHER 08-23-2012 [place] SPECIFIED MEDICAL DISORDERS IMAGING ASS OF BLADDER V7612 OTHER 08-23-2012 [place] SCREENING MEDICAL MAMMOGRAM IMAGING ASS 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 0419 BACTERIAL 08-08-2012 [facility] INFECTION COOL UNSPECIFIED INTERNAL CCE & UNS MED SITE 21186 DEHYDRATION 08-08-2012 [facility] COOL INTERNAL MED V7231 ROUTINE 08-05-2012 [facility] SONAI 4720 CHRONIC 08-02-2012 [facility] RHINITIS COOL INTERNAL MEDI 31784 MASTODYNIA 08-02-2012 [facility] INTERNAL MEDI 4011 ESSENTIAL 07-09-2012 [facility] HYP[facility] N, BENIGN 7964 OTHER 07-05-2012 [facility], PLL CLINICAL FINDING 78886 COR 07-01-2012 [facility] UNSPEC TYPE VESSEL [place]/ELSA T 95575 UNSPECIFIED 06-19-2012 [facility] VIRAL [facility] INFECTION SERVICES IN CCE & UNS SITE 58518 CONTUSION 06-14-2012 [facility] INC 9233 CONTUSION 06-14-2012 [facility] INC 47989 CONTUSION 06-14-2012 [facility] INC 9599 INJURY 06-14-2012 [place] OTHER AND MEDICAL UNSPECIFIED IMAGING ASS UNSPECIFIED SITE 4659 ACUTE URIS 06-05-2012 [facility] UNSPECIFIED CENTER SITE 8489 UNSPECIFIED 06-05-2012 [facility] SPRAIN AND CENTER STRAIN V8542 BODY MASS 05-23-2012 [facility] 45.0-49.9 CENTER ADULT 81289 ATROPHIC 05-20-2012 [facility] GASTRITIS SURGIAL WITHOUT ASSOCIATE MENTION OF HEMORRHAGE 12801 NAUSEA WITH 05-20-2012 [facility] VOMITING SURGIAL ASSOCIATE V1279 PERSONAL 05-20-2012 [facility] HISTORY OTH PHYS SURG DISEASES CTR DIGESTIVE DISEASE 4660 ACUTE 05-05-2012 [facility]ERGENCY PHYS 76410 ASTHMA, 05-05-2012 [facility] UNSPECIFIED N [facility]ERGENCY , PHYS UNSPECIFIED STATUS 1129 CANDIDIASIS 05-03-2012 [facility] UNSPECIFIED CENTER SITE 4619 ACUTE 05-03-2012 [facility] SINUSITIS, [facility]ALTHCARE UNSPECIFIED CENTER V0481 NEED 04-17-2012 [facility]HYLACTI [facility] C CENTER VACCINATION &INOCULATIO N FLU 01816 ESOPHAGEAL 04-16-2012 [facility] REFLUX SURGIAL ASSOCIATE 5559 REGIONAL 04-16-2012 [facility] ENTERITIS SURGIAL OF ASSOCIATE UNSPECIFIED SITE 39996 POLYURIA 03-29-2012 [facility] [employer] 25272 UNSPECIFIED 03-18-2012 [facility] VAGINITIS PSC AND VULVOVAGINI TIS 6235 LEUKORRHEA 03-18-2012 [facility] NOT PSC SPECIFIED INFECTIVE 6248 OTH SPEC 03-17-2012 [facility]PAT[facility] NONINFLAMMA CARE, PLLC TORY DISORDER VULVA&PERIN EUM 32742 LOSS OF 02-20-2012 [facility] SOPHIE WEIGHT ELOY SANCHEZ PSC 87839 UNSPECIFIED 02-14-2012 [facility] ARTHROPATHY INTERNAL MULTIPLE MEDI SITES 62637 ABDOMINAL 02-14-2012 [facility] PAIN, VALLEY GENERALIZED INTERNAL MEDI V741 SCREENING 02-14-2012 [facility] EXAMINATION VAL[facility] FOR INTERNAL PULMONARY MEDI TUBERCULOSI S 09092 ABDOMINAL 02-07-2012 [facility] PAIN, LEFT [facility] UPPER INC QUADRANT 32758 VASCULAR 01-06-2012 [facility] ES OF CONJUNCTIVA 05839 SWELLING OR 01-06-2012 [facility] EYE 80470 REDNESS OR 01-06-2012 [facility] EYE 03956 OTHER 01-06-2012 [facility] MEDICAL DISEASES OF SERV NASAL FOUNDATIO CAVITY AND SINUSES 0539 HERPES 12-14-2011 [facility]ER [facility] WITHOUT INTERNAL MENTION OF MED COMPLICATIO N 7891 HEPATOMEGAL 12-07-2011 [facility] 55249 PAIN IN 11-11-2011 [facility] JOINT, VALLEY ANKLE AND INTERNAL FOOT MED 44349 TRANSIENT 11-10-2011 [facility] ANKLE AND INC FOOT 6826 CELLULITIS 10-19-2011 [facility] AND ABSCESS VALLEY OF LEG INTERNAL EXCEPT FOOT MED 4780 HYPERTROPHY 10-12-2011 [facility] OF NASAL LUIS ALFREDO TURBINATES 9164 HIP THI 10-03-2011 [facility] LEG&ANK VALLEY INSECT BITE INTERNAL MED NONVENOMOUS W/O INF E9064 BITE OF 10-03-2011 [facility] NONVENOMOUS VALLEY ARTHROPOD INTERNAL MED 02089 TRANSIENT 09-25-2011 [facility] VISUAL LOSS [facility] INC 00183 SCOTOMA 09-25-2011 [facility] INVOLVING [facility] CENTRAL INC AREA IN VISUAL FIELD 15627 DISORDERS 09-25-2011 [facility] VISUAL [facility] CORTEX INC ASSOCIATED W/NEOPLASMS 7842 SWELLING 09-25-2011 [place] MASS OR MEDICAL LUMP IN IMAGING ASS HEAD AND NECK 49320 BORDERLINE 09-15-2011 [facility] GLAUC OPEN JAM ANGLE BL FINDINGS LOW RSK 27361 CHRONIC 09-07-2011 [facility] OBSTRUCTIVE LUIS ALFREDO 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EXACERBATIO N 66712 OBSTRUCTIVE 08-30-2011 [facility] CHRONIC VALLEY BRONCHITIS INTERNAL WITH MED EXACERBATIO N 4293 CARDIOMEGAL 08-17-2011 [place] Y [facility]ICAL IM[facility] ASS 38045 CHRONIC 08-09-2011 [facility] TENSION JAM TYPE HEADACHE 90368 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 96353 DIAB 06-25-2011 [facility] W/RENAL [facility] MANIFESTS INC TYPE I [JUV TYPE] UNCNTRL 26296 OBST 06-25-2011 [facility] CHRONIC [facility] BRONCHITIS INC W/ACUTE BRONCHITIS 56445 NAUSEA 06-25-2011 [facility] 7841 THROAT PAIN 06-06-2011 [facility] MEDICAL SERV FOUNDATIO 31453 OTHER 05-25-2011 [facility]MPTOMS [facility] INVOLVING INC HEAD AND NECK 4721 CHRONIC 05-15-2011 E[facility], NOSE PHARYNGITIS AND THROAT SPECIAL 462 ACUTE 05-09-2011 [facility] PHARYNGITIS COOL INTERNAL MED 33152 UNSPECIFIED 04-12-2011 [facility] ARTHROPATHY LA ANKLE AND FOOT 6989 UNSPECIFIED 03-28-2011 [facility] PRURITIC [facility] DISORDER INC 6929 CONTACT 03-27-2011 DERMAT[facility]Y DERMATITIS& OTHER CONSULTANTS ECZEMA DUE PSC UNSPEC CAUSE 62804 WHEEZING 03-20-2011 [facility] 7391 NONALLOPATH 03-08-2011 [facility] GONZALES IC LESION OF CERVICAL REGION NEC 4548 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 SERVICES EXTREMITIES W/OTH COMPS 7827 SPONTANEOUS 02-23-2011 [facility] ECCHYMOSES [facility] INC 89163 CONTUSION 02-23-2011 [facility] OF THIGH EMERGENCY SERVICES 4439 UNSPECIFIED 02-17-2011 [place] PERIPHERAL MEDICAL VASCULAR IMAGING ASS DISEASE 1101 DERMATOPHYT 02-10-2011 [facility] OSIS OF NAIL 91014 DIAB 02-10-2011 [facility] W/NEURO MANIFESTS TYPE II/UNS NOT UNCNTRL 24077 DIAB 02-10-2011 [facility] W/PERIPH CIRC D/O TYPE II/UNS NOT UNCNTRL 85872 ABDOMINAL 01-18-2011 [place] PAIN RIGHT MEDICAL LOWER IMAGING ASS QUADRANT 12365 HYPERSOMNIA 12-27-2010 [facility] WITH SLEEP DEIDRA APNEA UNSPECIFIED 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 13224 OTHER 10-26-2010 [facility] ALTERATION [facility] OF INC CONSCIOUSNE SS 9953 ALLERGY 09-13-2010 [facility] UNSPECIFIED AMBULANCE NOT SERVICE ELSEWHERE CLASSIFIED V1272 PERSONAL 08-25-2010 [facility] HISTORY OF [facility] COLONIC INC POLYPS 74628 BACKGROUND 07-28-2010 [facility] DIABETIC VISION RETINOPATHY 24308 UNSPECIFIED 07-27-2010 [facility] INFECTIVE [facility] OTITIS INC EXTERNA 89859 HYPOXEMIA 06-27-2010 [facility] 5589 OTH&UNSPEC 10-12-2009 [facility] NONINFECTIO EMERGENCY US SERVICES GASTROENTER ASSOCIATES ITIS&COLITI S 89809 PAPANICOLAO 04-16-2009 PATHOLOGY & U SMEAR OF CYTOLOGY VAGINA WITH LAB ASC-US 59116 ABDOMINAL 04-14-2009 [facility] PAIN, COOL EPIGASTRIC INTERNAL MED 27391 ASTHMA 03-19-2009 [facility] UNSPECIFIED EMERGENCY WITH SERVICES EXACERBATIO ASSOCIATES N 7393 NONALLOPATH 03-17-2009 [place] IC LESION FAMILY OF LUMBAR CHIROPRACTI REGION NEC C 5999 UNSPECIFIED 03-09-2009 [facility], DISORDER CHELSY [place] OF URETHRA&URI NARY TRACT 72544 OSTEOARTHRO 03-09-2009 Mamta DUEÑAS INVLV MX CHELSY W SITES BUT NOT SPEC GEN 59181 OTHER 02-18-2009 [facility] ABNORMAL EMERGENCY GLUCOSE SERVICES ASSOCIATES V5883 ENCOUNTER 01-25-2009 CARDIOLOG[facility] FOR ASSOCIATES THERAPEUTIC OF DRUG CARBON MONITORING 4580 ORTHOSTATIC 01-14-2009 [facility] AMBULANCE HYPOTENSION SERVICE 22701 ASPHYXIA 01-14-2009 [place] [facility] 7336 TIETZES 12-16-2008 [facility] DISEASE COOL INTERNAL MED 19674 STOMATITIS 12-04-2008 [facility] DUEÑAS MUCOSITIS UNSPECIFIED 9778 POISONING 11-26-2008 [facility] OTHER SPEC EMERGENCY DRUGS&MEDIC SERVICES INAL ASSOCIATES SUBSTANCES 01506 UNSPECIFIED 10-30-2008 [facility], SITE OF CHELSY W ANKLE SPRAIN AND STRAIN E8498 OTHER 10-28-[address] [place] [address] [facility] OF IMAGING OCCURRENCE ASSOCIATES E8859 FALL FROM 10-28-2008 [place] OTHER MEDICAL SLIPPING IMAGING TRIPPING OR ASSOCIATES STUMBLING 7873 FLATULENCE 10-21-2008 [facility] MEDICAL ERUCTATION SERV AND GAS FOUNDATIO PAIN 76743 VOMITING 09-22-2008 [facility] ALONE EMERGENCY SERVICES ASSOCIATES 96812 VARIANTS 08-06-2008 [facility], MIGRAINE CHELSY W NEC INTRACT MIGRAINE W/[place] 8[address] UNS 07-24-2008 [facility], GASTRITIS&G CHELSY W ASTRODUODIT IS W/O MENTION HEMORR 44191 ABDOMINAL/P 05-25-2008 [facility] ELVIC [facility] INC MASS/LUMP UNSPEC SITE 50747 NEPHROTIC 04-27-2008 [facility] SYND W/OTH [facility] PATHAL LES INC DZ CLASS ELSW 56011 OTHER SPEC 04-15-2008 [place] [facility] GASTRITIS SERV WITHOUT FOUNDATIO MENTION HEMORRHAGE 50772 ERYTHEMA 03-04-2008 [facility] DUE TO BURN [facility] OF INC ABDOMINAL WALL 48087 BLISTERS 03-04-2008 RODRIGUEZ W/EPIDERMAL NATIONAL LOSS DUE [employer]PORATION BURN ABD WALL 84547 DERMATITIS 02-23-2008 [facility] DUE TO [facility] OTHER INC RADIATION 09568 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-2007 [facility] 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 80370 OTHER 12-18-2007 [facility]SPNEA [facility] RESPIRATORY ABNORMALITI ES 7931 NONSPEC 12-18-2007 [facility] FIND RAD [facility] OTH EXAM HOSP BODY STRUCT LUNG FIELD 93430 NONSPECIFIC 12-18-2007 [facility] ABNORMAL [facility] ELECTROCARD HOSP IOGRAM V142 PERSONAL 12-18-2007 [facility] HISTORY OF [facility] ALLERGY TO HOSP SULFONAMIDE S 2443 OTHER 10-04-2007 [facility] ISM PROF SERV 2810 PERNICIOUS 09-20-2007 [facility] ANEMIA COOL INTERNAL MED 7244 THORACIC/ANIL 09-17-2007 DANGELO HOFFOSACRBENJAMIN Huffman NEURITIS/RA DICULITIS UNSPEC 7246 DISORDERS 09-17-2007 [facility] OF SACRUM ERVIN Huffman 0340 STREPTOCOCC 09-12-2007 [facility] AL SORE COOL THROAT INTERNAL MED 4149 UNSPECIFIED 08-30-2007 [facility] ISCHEMIC INTERNAL HEART MED DISEASE 3569 UNSPEC 08-20-2007 [facility] HEREDIT&IDI [facility] OPATHIC INC PERIPHERAL NEUROPATHY 7812 ABNORMALITY 08-20-2007 [facility], OF GAIT CHUCK 7820 DISTURBANCE 08-20-2007 [facility] OF SKIN CHUCK SENSATION 724.5 Chronic [place] back pain [facility] [id number] [facility] Allergies, Adverse Reactions, Alerts Type Drug [...] 20 AI AT 61 09 09 D MA E 0 PH CH 10 AR AE [...] 01 30 30 RI 79 GH Ac GA 00 -0 -2 .0 TE 42 AN [...] 01 30 30 RI 79 GH Ac GA 00 -0 -1 .0 TE 42 AN [...] ti IN 12 8- 0- 00 43 MA ve IR 17 20 20 AI E [...] -1 -2 .0 TE 04 NO ti GA 80 2- 7- 00 86 LD ve [...] 20 AI LI 70 09 09 D MA N 5 PH CH 50 AR AE [...] 00 30 30 RI 79 GH Ac GA 00 -0 -1 .0 TE 42 AN [...] 80 1- 0- 00 15 LD ve MA 21 20 20 AI DE 61 09 09 D RI 0 PH CH 40 AR AR M D MG #3 W 93 TA 8 BL ET BI 00 02 07 05 30 30 RI 77 AR Ac SO 37 -1 -3 .0 TE 04 NO ti GA 80 2- 0- 00 86 LD ve [...] -1 -0 .0 TE 04 NO ti GA 80 2- 2- 00 86 LD ve [...] 4- 2- 00 SI 15 ON ve GA 02 20 20 DE ED 20 09 [...] -1 -0 .0 TE 04 NO ti GA 80 2- 4- 00 86 LD ve [...] MG 93 8 CA PS UL E GA 37 05 05 00 28 28 RI [...] ti LI 91 8- 1- 00 90 MA ve N 83 20 20 AI E [...] AN RA 30 09 09 D TO MA 5 PH NI DE AR O M [...] 09 D RI TA 1 PH CH MA AR AR N- M D CA #3 [...] -1 -2 .0 TE 04 NO ti GA 80 2- 3- 00 86 LD ve OL 52 20 20 AI OL 39 09 09 D RI 3 PH CH FU AR AR MA M D RA #3 W TE 93 5 8 MG TA B CI 00 04 04 00 20 10 RI 77 AR Ac GA 17 -1 -2 .0 TE 97 NO [...] -1 -2 .0 TE 04 NO ti GA 80 2- 6- 00 86 LD ve [...] ti LI 91 8- 2- 00 90 MA ve N 83 20 20 AI E [...] -1 -2 .0 TE 04 NO ti GA 80 2- 6- 00 86 LD ve OL 52 20 20 AI OL 39 09 09 D RI 3 PH CH FU AR AR MA M D RA #3 W TE 93 5 8 MG TA B CI 00 02 02 00 20 10 RI 77 AR Ac GA 17 -1 -2 .0 TE 04 NO [...] 09 D RI TA 1 PH CH MA AR AR N- M D CA #3 [...] AN RA 30 09 09 D TO MA 5 PH NI DE AR O M 10 #3 93 MG 8 TA BL ET NO 00 11 01 01 10 30 RI 75 MC Ac VO 16 -0 -3 .0 TE 72 KE ti LI 91 8- 0- 00 90 MA ve N 83 20 20 AI E [...] #3 W 93 TA 8 BL ET GA 00 09 01 01 40 20 RI [...] -0 -0 .0 TE 32 KE ti GA 80 6- 1- 00 28 MA ve OL 52 20 20 AI E [...] 00 60 30 RI 76 AR Ac GA 09 -1 -1 .0 TE 18 NO [...] 34 2- 0- 00 11 LD ve GA 59 20 20 AI ED 31 08 [...] ti LI 91 8- 0- 00 90 MA ve N 83 20 20 AI E [...] -0 -2 .0 TE 32 KE ti GA 80 6- 0- 00 28 MA ve OL 52 20 20 AI E [...] 00 20 10 RI 75 AR Ac GA 17 -2 -0 .0 TE 17 NO [...] 08 D RI TA 1 PH CH MA AR AR N- M D CA #3 [...] W MG 93 8 TA BL ET GA 37 09 09 00 28 28 RI 74 AR Ac IL 00 -1 -2 .0 TE 92 NO ti OS 00 1- 6- 00 85 LD ve EC 45 20 20 AI 50 08 08 D RI OT 2 PH CH C AR AR 20 M D .6 #3 W 93 MG 8 TA BL ET GA 00 09 09 00 40 20 RI [...] ti LI 91 1- 1- 00 61 MA ve N 83 20 20 AI E 70 71 07 08 D JR -3 1 PH 0 AR WI 10 M LL 0 #3 IA UN 93 M IT 8 F /M L AL ME 00 09 09 00 21 6 RI 74 AR Ac TH 60 -0 -1 .0 TE 83 NO ti YL 34 4- 1- 00 10 LD ve GA 59 20 20 AI ED 31 08 [...] ti LI 91 1- 8- 00 61 MA ve N 83 20 20 AI E [...] ti LI 91 1- 7- 00 61 MA ve N 83 20 20 AI E [...] 82 5- 3- 00 76 Av ve GA 07 20 20 AI ai IL 20 [...] #3 W 93 TA 8 BL ET GA 00 06 07 00 40 10 RI [...] ti TH 81 4- 2- 00 59 MA ve YR 80 20 20 AI E [...] 34 9- 5- 00 01 LD ve GA 59 20 20 AI ED 31 08 [...] -0 -0 .0 TE 32 t ti GA 80 6- 8- 00 28 Av ve [...] 00 20 10 RI 72 No Ac GA 17 -1 -2 .0 TE 89 t [...] -0 -0 .0 TE 32 t ti GA 80 6- 7- 00 28 Av ve [...] 25 4- 6- 00 61 Av ve GA 03 20 20 AI ai IL 26 [...] Procedure DOS Code Location Performer Comment ECG 99450 [facility] ROUTINE [facility] ECG INC INC W/LEAST 12 LDS TRCG ONLY W/O I&R THERAPEUT 22890 [facility] IC 7 [facility] INJECTION INC INC IV PUSH EACH NEW DRUG ECG 57366 [facility]INE [facility] ECG INC INC W/LEAST 12 LDS TRCG ONLY W/O I&R ECG 05929 [facility] ROUTINE 7 [facility] ECG INC INC W/LEAST 12 LDS TRCG ONLY W/O I&R BASIC 00687 [facility] METABOLIC 7 [facility] PANEL INC INC CALCIUM TOTAL COLLECTIO 88209 [facility] N VENOUS 7 [facility] BLOOD INC INC VENIPUNCT URE ECHO 47275 [facility] TTHRC R-T 7 [facility] 2D INC INC W/WOM-MOD E COMPL SPEC&COLR D ECG 30994 [facility]OUTINE [facility] ECG INC INC W/LEAST 12 LDS TRCG ONLY W/O I&R RADIOLOGI 43289 [facility] C 7 [facility] EXAMINATI INC INC ON PELVIS 1/2 VIEWS URNLS DIP 95830 [facility] 7 [facility] STICK/TAB INC INC LET REAGENT AUTO MICROSCOP Y RADEX 49023 [facility] NASAL 7 [facility] BONES INC INC COMPLETE MINIMUM 3 VIEWS CULTURE 97602 [facility] BACTERIAL 7 [facility] INC INC QUANTTATI VE COLONY COUNT URINE RADIOLOGI 66172 [facility] C 7 [facility] EXAMINATI INC INC ON KNEE 3 VIEWS DRUG TEST 14545 [facility] PRSMV 7 [facility] QUAL DIR INC INC OPTICAL OBS PER DAY THERAPEUT 36463 [facility] IC 7 [facility] [place]JECTION [place] [address] [facility] INFUSION 7 [facility] THERAPY/P INC INC ROPHYLAXI S /DX 1ST TO 1 HR CULTURE 52182 [facility] BACTERIAL 7 [facility] INC INC QUANTTATI VE COLONY COUNT URINE COMPREHEN 36320 [facility] SIVE 7 [facility] METABOLIC INC INC PANEL URNLS DIP 91415 [facility] 7 [facility] STICK/TAB INC INC LET REAGENT AUTO MICROSCOP Y ECG 55707 [facility] ROUTINE 7 [facility] ECG INC INC W/LEAST 12 LDS TRCG ONLY W/O I&R CREATINE 00988 [facility] KINASE 7 [facility] TOTAL INC INC GLUC BLD 45788 [facility] GLUC MNTR 7 [facility] DEV INC [place] [address] [facility] TROPONIN 7 [facility] QUANTITAT INC INC ANNABELLA RADIOLOGI 99193 [facility] C 7 [facility] EXAMINATI INC INC ON CHEST SINGLE VIEW FRONTAL RHYTHM 23494 [facility] ECG 1-3 7 [facility] LEADS INC INC TRACING ONLY W/O I&R CREATINE 74793 [facility]IV[facility] KINASE MB 7 [facility] COUNTY FRACTION INC HEALTH ONLY CENTER BLOOD 10891 [facility] COUNT 7 [facility] COMPLETE INC INC AUTO&AUTO DIFRNTL WBC BLOOD 54732 [facility] COUNT 7 [facility] COMPLETE INC INC AUTO&AUTO DIFRNTL WBC THERAPEUT 15279 [facility] IC 7 [facility] PROPHYLAC INC INC TIC/DX INJECTION SUBQ/[place] [address] [facility] AMYLASE 7 [place] [address] [facility] TROPONIN 7 [facility] [place] [address] [facility] LIPASE 7 [facility] INC INC URNLS DIP 71226 [facility] 7 [facility] STICK/TAB INC INC LET REAGENT AUTO MICROSCOP Y COMPREHEN 30213 [facility] SIVE 7 [facility] METABOLIC INC INC PANEL CULTURE 67796 [facility] BACTERIAL 7 [facility] INC INC QUANTTATI VE COLONY COUNT URINE RADEX ABD 45527 [facility] COMPL 7 [facility] AQT ABD INC INC W/S/E/D VIEWS 1 VIEW CH SUSCEPTIB 80160 [facility] LTY STDY 7 [facility] ANTIMICRB INC INC IAL MICRO/AGA R DILUTJ CULTURE 57826 [facility] BCT 7 [facility] ISOL&PRSM INC INC PTV ID ISOLATE EA URINE ECG 05637 [facility] ROUTINE 7 [facility] ECG INC INC W/LEAST 12 LDS TRCG ONLY W/O I&R DEMO&/POLLY 26313 [facility] L OF PT 7 [facility] UTILIZ OF BELLE AERSL CO GEN/NEB/I NHLR/IP NITRIC 59994 [facility] OXIDE 7 [facility] OF BELLE GAS CO DETERMINA TION BRNCDILAT 18105 [facility] RSPSE 7 [facility] SPMTRY OF BELLE PRE&POST- CO BRNCDILAT ADMN PERCUTANE 07650 [facility] MOJICA OUS TESTS 7 [facility] OF BLELE W/ALLERGE CO ALVARADO EXTRACTS THERAPEUT 87314 [facility] IC 7 [facility] INJECTION INC INC IV PUSH EACH NEW DRUG THER 94358 [facility] PROPH/DX 7 [facility] NJX EA INC INC SEQL IV PUSH SBST/DRUG FAC SUSCEPTIB 04115 [facility] LTY STDY 7 [facility] ANTIMICRB INC INC IAL MICRO/AGA R DILUTJ CULTURE 93473 [facility] BACTERIAL 7 [facility] INC INC QUANTTATI VE COLONY COUNT URINE INJECTION J2405 [facility] 7 [facility] ONDANSETR INC INC ON HCL PER 1 MG COMPREHEN 87743 [facility] SIVE 7 [facility] [place] [address] [facility] TROPONIN 7 [facility] QUANTITAT INC INC ANNABELLA ECG 48098 [facility] ROUTINE 7 [facility] ECG INC INC W/LEAST 12 LDS TRCG ONLY W/O I&R CREATINE 47809 [facility] KINASE 7 [facility] TOTAL INC INC URNLS DIP 44557 [facility] 7 [facility] STICK/TAB INC INC LET REAGENT AUTO MICROSCOP Y RADIOLOGI 11381 [facility] C EXAM 7 [facility] CHEST 2 INC INC VIEWS FRONTAL&L ATERAL CREATINE 63264 [facility] KINASE MB 7 [facility] FRACTION INC INC ONLY RHYTHM 73596 [facility] ECG 1-3 7 [facility] LEADS INC INC TRACING ONLY W/O I&R THER 65268 [facility] PROPH/DX 7 [facility] NJX IV INC INC PUSH SINGLE/1S T SBST/DRUG BLOOD 15585 [facility] COUNT 7 [facility] COMPLETE INC INC AUTO&AUTO DIFRNTL WBC CULTURE 24917 [facility] BCT 7 [facility] ISOL&PRSM INC INC PTV ID ISOLATE EA URINE CULTURE 77103 [facility] BACTERIAL 7 [facility] INC INC QUANTTATI VE COLONY COUNT URINE BLOOD 80159 [facility] COUNT 7 [facility] COMPLETE INC INC AUTO&[place] [address] [facility] FREE 7 [facility] [place] [address] [facility] THYROID 7 [facility] STIMULATI [place] [address] [facility] THYROID 7 [facility] [place]ULAT[place] [address] [facility] FREE 7 [facility] [place] [address] [facility] TRIIODOTH 7 [facility] YRONINE INC INC T3 FREE COLLECTIO 31106 [facility] N VENOUS 7 [facility] BLOOD INC INC VENIPUNCT URE OCCUPATIO 51900 [facility] NAL 7 [facility] THERAPY INC INC EVAL LOW COMPLEX 30 MINS APPL 56356 [facility] MODALITY 7 [facility] 1/> AREAS INC INC IONTOPHOR ESIS EA 15 MIN THERAPEUT 32077 [facility] IC PX 1/> 7 [facility] AREAS INC INC EACH 15 MIN EXERCISES [facility]OSPITAL [id number] [facility] ASSESS & MGMT PT HOSPITAL G0463 [facility] OUTPATIEN 7 [facility] T CLIN INC INC VISIT ASSESS & MGMT PT IAADIADOO 98567 [facility] 7 [facility] INFLUENZA INC INC IAADIADOO 30840 [facility] 7 [facility] STREPTOCO INC INC CCUS GROUP A INJ J0702 [facility] BETAMETHA 7 PHYSICIAN DELMAR Oleary GROUP ACETATE & PHOSPHATE 3 MG RADIOLOGI 45455 [facility] [place] SCALF C EXAM 7 RADIOLOGY CHEST 2 VIEWS FRONTAL&[place] [address] [facility] T[facility] CERVICAL 7 [facility] SPINE W/[place] [address] BRAND[facility] TAYLOR HEAD/BRAI 7 [facility] N W/O INC INC CONTRAST MATERIAL GROUND A0425 [facility] MILEAGE 7 AMBULANCE AMBULANCE PER SERVICE SERVICE STATUTE MILE AMBULANCE A0429 [facility]il [facility] SERVICE 7 AMBULANCE AMBULANCE BLS SERVICE SERVICE EMERGENCY TRANSPORT RADEX 49234 [place] EL[place]OW 7 MEDICAL COMPLETE IMAGING MINIMUM [address] [place] [address] BRANDON TAYLOR ABDOMEN & 7 [facility] PELVIS INC INC W/CONTRAS T MATERIAL URNLS DIP 70633 BR[facility] TAYLOR 7 [facility] STICK/TAB INC INC [place] [address] [facility] T[facility] LIPASE 7 [facility] [place] [address] BRAND[facility] TAYLOR AMYLASE 7 [facility] INC INC BLOOD 55224 BRANDON TAYLOR COUNT 7 [facility] COMPLETE INC INC AUTO&AUTO DIFRNTL WBC CULTURE 47310 BRAND[facility] TAYLOR BACTERIAL 7 [facility] INC INC QUANTTATI VE COLONY COUNT URINE INJECTION J2405 BR[facility] TAYLOR 7 [facility] ONDANSETR INC INC ON HCL PER 1 MG COMPREHEN 24760 BRANDON TAYLOR SIVE 7 [facility] METABOLIC INC INC PANEL SUSCEPTIB 90199 BRANDON TAYLOR LTY STDY 7 [facility] ANTIMICRB INC INC IAL MICRO/AGA R DILUTJ THERAPEUT 63307 BRANDON TAYLOR IC 7 [facility] INJECTION INC INC IV PUSH EACH NEW DRUG IV [address] [facility] TAYL[facility] INFUSION 7 [facility] THERAPY/P INC INC ROPHYLAXI S /DX 1ST TO 1 HR LOCM Q9967 [facility] RABAGOON [phone] 7 [facility] MG/ML INC INC IODINE CONCENTRA TION PER ML CULTURE 74837 BRANDONKATI TAYLOR BCT 7 [facility] ISOL&PRSM INC INC PTV ID ISOLATE EA URINE CULTURE 46730 [facility] BCT 7 [facility] ISOL&PRSM INC INC PTV ID ISOLATE EA URINE SUSCEPTIB 85594 [facility] LTY STDY 7 [facility] ANTIMICRB INC INC IAL MICRO/AGA R DILUTJ CULTURE 68539 [facility] BACTERIAL 7 [facility] INC INC QUANTTATI VE COLONY COUNT URINE INJECTION J2405 [facility] 7 [facility] ONDANSETR INC INC ON HCL PER 1 MG ALBUTEROL J7613 YOUR YOUR INHAL 7 PHARMACY PHARMACY NON-CP [facility] PROD THRU DME U DOSE 1 MG ADMN SET A7003 YOUR YOUR SM VOL 7 PHARMACY PHARMACY NONFILTR [facility] PNEUMAT NEBULIZR DISPBL THERAPEUT 32674 [facility] IC 7 [facility] PROPHYLAC INC INC TIC/DX INJECTION SUBQ/IM PHRM Q0513 YOUR YOUR DISPENSIN 7 PHARMACY PHARMACY G FEE [facility] INHALATIO N RX; PER 30 DAYS IADNA-DNA 31467 [facility] T[facility] /RNA GI 7 [facility] PTHGN INC INC MULTIPLEX PROBE TQ 12-25 LACTOFERR 81252 [facility] T[facility] IN FECAL 7 [facility] QUALITATI INC INC VE OVA&NOEL 66511 [facility] T[facility] ITES 7 [facility] DIRECT INC INC SMEARS CONCENTRA TION & ID COMPREHEN 62934 [facility] T[facility] SIVE 7 [facility] METABOLIC INC INC PANEL CREATINE 59342 [facility] KINASE 7 [facility] TOTAL INC INC ECG 91079 [facility] ROUTINE 7 [facility] ECG INC INC W/LEAST 12 LDS TRCG ONLY W/O I&[place] [address] [facility] T[facility] TROPONIN 7 [facility] QUANTITAT INC INC ANNABELLA RADIOLOGI 02409 [place] C EXAM 7 MEDICAL CHEST 2 IMAGING VIEWS ASS FRONTAL&L ATERAL BLOOD 49511 [facility] COUNT 7 [facility] COMPLETE INC INC AUTO&AUTO DIFRNTL WBC CREATINE 14979 [facility] T[facility] KINASE MB 7 [facility] FRACTION INC INC ONLY ECG 41977 [facility] ROUTINE 7 PHYSICIAN ECG S, PLLC W/LEAST 12 LDS I&R ONLY APPLICATI 89202 [facility] ON 7 [facility] MODALITY INC INC 1/> AREAS HOT/COLD PACKS APPL 42164 [facility] MODALITY 7 [facility] 1/> AREAS INC INC ULTRASOUN D EA 15 MIN E-STIM G0283 [facility] 1/> AREAS 7 [facility] OTH THAN INC INC WND CARE PART TX PLAN E-STIM G0283 [facility] 1/> AREAS 7 [facility] OTH THAN INC INC WND CARE PART TX PLAN APPLICATI 38352 [facility] ON 7 [facility] MODALITY INC INC 1/> AREAS HOT/COLD PACKS APPL 19688 [facility] MODALITY 7 [facility] 1/> AREAS INC INC ULTRASOUN D EA 15 MIN ECG 93957 [facility] ROUTINE 7 [facility] ECG INC INC W/LEAST 12 LDS TRCG ONLY W/O I&R ECG 10421 [facility] ROUTINE 7 [facility] ECG INC INC W/LEAST 12 LDS TRCG ONLY W/O I&R BLOOD 34335 [facility] T[facility] GASES ANY 7 [facility] INC INC COMBINATI ON PH PCO2 PO2 CO2 HCO3 CREATINE 22557 [facility] KINASE 7 [facility] [place] [address] [facility] T[facility] TROPONIN 7 [facility] QUANTITAT INC INC ANNABELLA URNLS DIP 45693 [facility] 7 [facility] STICK/TAB INC INC LET REAGENT AUTO MICROSCOP Y ECG 21916 [facility] ROUTINE 7 PHYSICIAN ECG S, PLLC W/LEAST 12 LDS I&R ONLY CREATINE 59606 BR[facility] TAY[facility] KINASE MB 7 [facility] [place] [address] [facility] T[facility] FREE 7 [facility] [place] [address] [facility] THYROID 7 [facility] STIMULATI INC INC NG HORMONE TSH BLOOD 16733 [facility] COUNT 7 [facility] COMPLETE INC INC AUTO&AUTO DIFRNTL WBC COMPREHEN 25054 [facility] SIVE 7 [facility] METABOLIC INC INC PANEL CULTURE 37122 [facility] BACTERIAL 7 [facility] INC INC QUANTTATI VE COLONY COUNT URINE DRUG TEST G0480 [facility] DEFINITV [address] [facility] [address] ID INC INC METH P DAY 1-7 DRUG CL SUSCEPTIB 89451 [facility] T[facility] LTY STDY 7 [facility] ANTIMICRB INC INC IAL MICRO/AGA R DILUTJ CULTURE 83089 [facility] BCT 7 [facility] ISOL&PRSM INC INC PTV ID ISOLATE EA URINE DRUG TEST G0481 [facility] DEFINITV [address] [facility] [address] [address] ID INC INC METH P DAY 8-14 DRUG CL DRUG TEST 80609 [facility] PRSMV 7 [facility] INSTRMNT INC INC CHEMISTRY ANALYZERS E-STIM G0283 BRAND[facility] RABAGOON 1/> AREAS 7 [facility] OTH THAN INC INC WND CARE PART TX PLAN APPLICATI 22527 [facility]AND[facility] BRANDON ON 7 [facility] MODALITY INC INC 1/> AREAS HOT/COLD PACKS APPL 48423 [facility] MODALITY 7 [facility] 1/> AREAS INC INC ULTRASOUN D EA 15 MIN BLOOD 13736 [facility] BRANDON COUNT 7 [facility] COMPLETE INC INC AUTO&AUTO DIFRNTL WBC PHYSICAL 16021 [facility] BR[facility] THERAPY 7 [facility] EVALUATIO INC INC N MOD COMPLEX 30 MINS APPL 87050 [facility] MODALITY 7 [facility] 1/> AREAS INC INC ULTRASOUN D EA 15 MIN APPLICATI 97659 [facility] ON 7 [facility] MODALITY INC INC 1/> AREAS HOT/COLD PACKS E-STIM G0283 [facility] 1/> AREAS 7 [facility] OTH THAN INC INC WND CARE PART TX PLAN CT THORAX 83017 [place] CRISOSTOMOCARLA W/O 7 MEDICAL CONTRAST IMAGING MATERIAL ASS RADIOLOGI 46152 BRANDON Kumar EXAM 6 [facility] CHEST 2 INC INC VIEWS FRONTAL&L ATERAL BLOOD 37181 [facility] COUNT 6 [facility] COMPLETE INC INC AUTO&[place] [address] [facility] T[facility] THYROID 6 [facility] STIMULATI INC INC NG HORMONE TSH DRUG TST G0477 [facility] T[facility] PRESUMP;C 6 [facility] PBL BEING [place] [address] [facility] TAY[facility] THYROXINE 6 [facility] TOTAL INC INC COMPREHEN 13212 [facility] SIVE 6 [facility] METABOLIC INC INC PANEL COLLECTIO 69939 [facility] N VENOUS 6 [facility] BLOOD INC INC VENIPUNCT URE THERAPEUT 33922 [facility] IC 6 [facility] PROPHYLAC INC INC TIC/DX INJECTION SUBQ/IM GLUC BLD 14018 [facility] GLUC MNTR 6 [facility] DEV INC INC CLEARED FDA SPEC HOME USE BLD GLU A4253 CRISTIN AMARAL TEST/REAG 6 HOME [facility] BLD EQUIPME EQUIPME GLU MON-50 LANCETS A4259 CRISTIN AMARAL PER BOX 6 HOME HOME OF 100 MEDICAL MEDICAL EQUIPME EQUIPME SBSQ 36611 [facility] 6 PHYSICIAN SHANTHI CARE/DAY S GROUP 15 MINUTES ECG 05059 BRANDON CHOWDHURY JR ROUTINE 6 [facility] W/LEAST P 12 LDS I&R ONLY RADIOLOGI 16822 [place] FLANN[place] C 6 MEDICAL EXAMINATI IMAGING [place] [address] [place] PRUDENCIO ABDOMEN & 6 MEDICAL PELVIS IMAGING W/O ASS CONTRAST MATERIAL INITIAL 38184 [facility] 6 PHYSICIAN SHANTHI CARE/DAY S GROUP 50 MINUTES CRITICAL 68896 [facility] CARE 6 PHYSICIAN ILL/INJUR S, PLLC ED PATIENT INIT 30-[place] [address] BRANDON TALYOR STREPTOCO 6 [facility] CCUS INC INC GROUP A CULTURE 00277 [facility] BCT 6 [facility] ISOL&PRSM INC INC PTV ID ISOLATE EA URINE CUL BACT 96754 [facility] XCPT 6 [facility] URINE INC INC BLOOD/STO OL AEROBIC ISOL CULTURE 75327 [facility] BACTERIAL 6 [facility] INC INC QUANTTATI VE COLONY COUNT URINE COLLECTIO 31085 [facility] N VENOUS 6 [facility] BLOOD INC INC VENIPUNCT URE COMPREHEN 96055 [facility] SIVE 6 [facility] METABOLIC INC INC PANEL SUSCEPTIB 50300 [facility] T[facility] LTY STDY 6 [facility] ANTIMICRB INC INC IAL MICRO/AGA R DILUTJ URNLS DIP 33225 [facility] 6 [facility] STICK/TAB INC INC LET REAGENT AUTO MICROSCOP Y RADIOLOGI 45180 [place] JOSEPHINE C EXAM 6 MEDICAL ANITA CHEST 2 IMAGING VIEWS ASS FRONTAL&L ATERAL THERAPEUT 43001 [facility] IC 6 [facility] PROPHYLAC INC INC TIC/DX INJECTION SUBQ/IM IAADI 80796 [facility] INFLUENZA 6 [facility] B VIRUS INC INC IAADI 83286 [facility] INFFLUENZ 6 [facility] A A VIRUS INC INC BLOOD 14556 [facility] COUNT 6 [facility] COMPLETE INC INC AUTO&AUTO DIFRNTL WBC 3D 01455 [facility] RENDERING 6 [facility] W/INTERP INC INC & POSTPROCE SS SUPERVISI ON MRI 84160 [facility] SPINAL 6 [facility] CANAL INC INC LUMBAR W/O CONTRAST MATERIAL RADIOLOGI 62292 [facility] CRISOSTOMOINEKE C 6 MEDICAL ANITA EXAMINATI IMAGING ON KNEE 3 ASS VIEWS THERAPEUT 73207 [facility] IC 6 [facility] INJECTION INC INC IV PUSH EACH NEW DRUG THER 92680 [facility] PROPH/DX 6 [facility] NJX IV INC INC PUSH SINGLE/1S T SBST/DRUG THERAPEUT 77161 BRANDNO TAYLOR IC PX 1/> 6 [facility] AREAS INC INC EACH 15 MIN EXERCISES PHYSICAL 52103 [facility] T[facility] THERAPY 6 [facility] EVALUATIO INC INC N APPLICATI 71631 [facility] T[facility] ON 6 [facility] MODALITY INC INC 1/> AREAS HOT/COLD PACKS E-STIM G0283 [facility] TAYLOR 1/> AREAS 6 [facility] OTH THAN INC INC WND CARE PART TX PLAN LANCETS A4259 CRISTIN JORDANRELL PER BOX 6 HOME HOME OF 100 MEDICAL MEDICAL EQUIPME EQUIPME BLD GLU A4253 CRISTIN CRISTIN TEST/REAG 6 HOME HOME T [facility] BLD EQUIPME EQUIPME GLU MON-50 DEBRIDEME 59571 [facility] NT NAIL 6 FOOT & ANY ANKLE CE METHOD 6/> POTASSIUM 85896 [facility] SERUM 6 [facility] PLASMA/WH INC INC OLE BLOOD COLLECTIO 10203 [facility] N VENOUS 6 [facility] BLOOD INC INC VENIPUNCT URE COMPREHEN 79748 [facility] SIVE 6 [facility] METABOLIC INC INC PANEL AMBULANCE A0429 [facility] SERVICE 6 AMBULANCE AMBULANCE BLS SERVICE SERVICE EMERGENCY TRANSPORT GROUND A0425 [facility] MILEAGE 6 AMBULANCE AMBULANCE PER SERVICE SERVICE STATUTE MILE RADEX 38397 [place] FLANNERY ALL RIBS UNI 6 MEDICAL W/POSTERO IMAGING ANT CH ASS MINIMUM 3 VIEWS POTASSIUM 28514 [facility] SERUM 6 [facility] PLASMA/WH INC INC OLE BLOOD BLOOD 10715 [facility] T[facility] COUNT 6 [facility] COMPLETE INC INC AUTO&AUTO DIFRNTL WBC COMPREHEN 70540 [facility] SIVE 6 [facility] METABOLIC INC INC PANEL COLLECTIO 92149 [facility] N VENOUS 6 [facility] BLOOD INC INC VENIPUNCT URE COLLECTIO 81756 [facility] N VENOUS 6 [facility] BLOOD INC INC VENIPUNCT URE COMPREHEN 17121 [facility] SIVE 6 [facility] METABOLIC INC INC PANEL RADEX 71192 [facility] TAY[facility]OR RIBS UNI 6 [facility] W/POSTERO INC INC ANT CH MINIMUM 3 VIEWS BLOOD 45770 [facility] COUNT 6 [facility] COMPLETE INC INC AUTO&AUTO DIFRNTL WBC RADIOLOGI 84911 [facility] C EXAM 6 MEDICAL CHEST 2 IMAGING VIEWS ASS FRONTAL&L ATERAL RADEX 93997 [facility] SHOULDER 6 MEDICAL MEDICAL COMPLETE IMAGING IMAGING MINIMUM 2 ASS ASS VIEWS BLOOD 45481 [facility] COUNT 6 [facility] COMPLETE INC INC AUTO&[place] [address] BR[facility] TAYLOR LACTATE 6 [facility] INC INC CULTURE 62910 [facility] T[facility] BACTERIAL 6 [facility] BLOOD INC INC AEROBIC W/ID ISOLATES COMPREHEN 18224 [facility] SIVE 6 [facility] METABOLIC INC INC PANEL COLLECTIO 75842 [facility] N VENOUS 6 [facility] BLOOD INC INC VENIPUNCT URE CUL BACT 86842 [facility] T[facility] XCPT 6 [facility] URINE INC INC BLOOD/STO OL AEROBIC ISOL CUL BACT 91256 BRANDON RABAGOON AEROBIC 6 [facility] ADDL INC INC METHS DEFINITIV E EA ISOL SUSCEPTIB 49180 [facility] TAYLOR LTY STDY 6 [facility] ANTIMICRB INC INC IAL MICRO/AGA R DILUTJ BLD GLU A4253 CRISTIN AMARAL TEST/REAG 6 HOME HOME [facility] BLD EQUIPME EQUIPME GLU MON-50 LANCETS A4259 CRISTIN CRISTIN PER BOX 6 HOME HOME OF 100 MEDICAL MEDICAL EQUIPME EQUIPME LOCM Q9967 BR[facility] BR[facility]ON [phone] 6 [facility] MG/ML INC INC IODINE CONCENTRA TION PER ML CT SOFT 22239 [facility] TISSUE 6 [facility] NECK INC INC W/CONTRAS T MATERIAL RADEX 93390 [facility] ESOPHAGUS 6 [facility] INC INC RADEX 26652 [facility] SPINE 6 [facility] CERVICAL INC INC 4 OR 5 VIEWS RADEX HIP 64111 [facility] 6 [facility] UNILATERA INC INC L WITH PELVIS 2-3 VIEWS RADEX 73329 [place] FLANNERY ALL SPINE 6 MEDICAL CERVICAL IMAGING 2 OR 3 ASS VIEWS RADEX HIP 31951 [facility] ALL 6 MEDICAL UNILATERA IMAGING L WITH ASS PELVIS 1 VIEW COLLECTIO 53997 [facility] N VENOUS 6 [facility] BLOOD INC INC VENIPUNCT URE COMPREHEN 40374 [facility] SIVE 6 [facility] [address] [facility] T[facility] AMMONIA 6 [facility] INC INC BLOOD 74154 [facility] COUNT 6 [facility] COMPLETE INC INC AUTO&AUTO DIFRNTL WBC BLOOD 72282 [facility] COUNT 6 [facility] COMPLETE INC INC AUTO&[place] [address] [facility] T[facility] FREE 6 [facility] [place] [address] [facility] THYROID 6 [facility] STIMULATI [place] [address] [facility] UREA 6 [facility] NITROGEN INC INC QUANTITAT ANNABELLA CREATININ 10839 [facility] E BLOOD 6 [facility] INC INC COLLECTIO 56159 [facility] N VENOUS 6 [facility] BLOOD INC INC VENIPUNCT URE COLLECTIO 29277 [facility] N VENOUS 5 [facility] BLOOD INC INC VENIPUNCT URE COMPREHEN 06281 [facility] SIVE 5 [facility] [address] [facility] THYROID 5 [facility] STIMULATI INC INC NG HORMONE TSH BLOOD 48409 [facility] COUNT 5 [facility] COMPLETE INC INC AUTO&AUTO DIFRNTL WBC CT THORAX 67481 [facility] W/O 5 [facility] CONTRAST INC INC MATERIAL RADIOLOGI 61009 [facility] RABAGOON C EXAM 5 [facility] CHEST 2 INC INC VIEWS FRONTAL&L ATERAL PRESSURIZ 39304 [facility] ED/NONPRE 5 [facility] SSURIZED INC INC INHALATIO N TREATMENT TX PROC G0238 [facility] IMPRV 5 [facility] RESP INC INC FUNCT NOT G0237 FCE-FCE 15MIN RADIOLOGI 54145 [facility] C 5 [facility] EXAMINATI INC INC ON KNEE 3 VIEWS RADEX 89254 [facility] RIBS UNI 5 [facility] W/POSTERO INC INC ANT CH MINIMUM 3 VIEWS WRIST L3908 [facility] 5 TECHNOLOG TECHNOLOG ORTHOSIS IES INC IES [place] [address] [facility] T[facility] MAXILLOFA 5 [facility] CIAL W/O INC INC CONTRAST MATERIAL RADIOLOGI 57186 [facility] C 5 [facility] EXAMINATI INC INC ON PELVIS 1/2 VIEWS RADEX 77247 [facility] HAND 5 [facility] MINIMUM 3 INC INC VIEWS APPLICATI 13816 [facility] T[facility] ON SHORT 5 [facility] ARM INC INC SPLINT FOREARM-H AND STATIC RADEX 47610 [facility] WRIST 5 [facility] COMPLETE INC INC MINIMUM 3 VIEWS FOR DIAB A5512 [facility] ONLY MX 5 MEDICAL MEDICAL DNSITY SUPPLY SUPPLY INSRT [facility] SemiNex [facility] FORMD PRFAB EA DIAB ONLY A5500 [facility] FIT CSTM 5 MEDICAL MEDICAL PREP&SPL SUPPLY SUPPLY SHOE [facility] [place] [address] SURG 5 TORO & PATHOLOGY COLLEENILIER GROSS&SHANTHI ROSCOPIC EXAM DECALCIFI [address] CATION 5 TORO & PROCEDURE DUBILIER ANES OPEN 45957 [facility] PJ PROC 5 ANESTH BONES OF THE LOWER BLUE LEG/ANKLE /FOOT NOS ECG 59005 BRANDON CHOWDHURY JR ROUTINE 5 [facility] W/LEAST P 12 LDS I&R ONLY RADEX 96582 [facility] FOOT 5 MEDICAL AYLA COMPLETE IMAGING MINIMUM [address] [place] [address] [facility] HEAD/BRAI 5 MEDICAL AYLA N W/[place] [address] [facility] CERVICAL 5 MEDICAL AYLA SPINE W/O IMAGING CONTRAST ASS MATERIAL RADIOLOGI 71612 [facility] 5 MEDICAL AYLA EXAMINATI IMAGING ON PELVIS ASS 1/2 VIEWS RADEX HIP 74072 [facility] 5 MEDICAL AYLA UNILATERA IMAGING L ASS COMPLETE MINIMUM 2 VIEWS GROUND A0425 [facility] AM[facility]ULANCE PER SERVICE SERVICE STATUTE MILE [facility] DIV[facility] A0427 [facility] SERVICE 5 AMBULANCE AMBULANCE ALS SERVICE SERVICE EMERGENCY TRANSPORT LEVEL 1 CULTURE 95497 COMBINED COMBINED BACTERIAL 5 PHYSICIAN PHYSICIAN S LA S LA QUANTTATI VE COLONY COUNT URINE BLD GLU A4253 CRISTIN AMARAL TEST/REAG 5 HOME HOME T [facility] BLD EQUIPME EQUIPME GLU MON-50 CULTURE 04582 [facility] T[facility] BACTERIAL 5 [facility] INC INC QUANTTATI VE COLONY COUNT URINE COLLECTIO 37191 [facility] T[facility] N VENOUS 5 [facility] BLOOD INC INC VENIPUNCT URE COMPREHEN 49512 [facility] SIVE 5 [facility] METABOLIC INC INC PANEL SUSCEPTIB 58735 [facility] T[facility] LTY STDY 5 [facility] ANTIMICRB INC INC IAL MICRO/AGA R DILUTJ URNLS DIP 09241 [facility] 5 [facility] STICK/TAB INC INC LET REAGENT AUTO MICROSCOP Y GLUC BLD 85005 [facility] BR[facility]ON GLUC MNTR 5 [facility] DEV INC INC CLEARED FDA SPEC HOME USE BLOOD 71770 [facility] COUNT 5 [facility] COMPLETE INC INC AUTO&AUTO DIFRNTL WBC THER 19779 [facility]ON PROPH/DX 5 [facility] NJX IV INC INC PUSH SINGLE/1S T SBST/DRUG CULTURE 71759 BRANDONKATI TAYLOR BCT 5 [facility] ISOL&PRSM INC INC PTV ID ISOLATE EA URINE HEPATITIS 14934 [facility] RABAGOON A 5 [facility] ANTIBODY INC INC HAAB HEPATITIS 34749 [facility] B CORE 5 [facility] [place] [address] [facility] T[facility] HEPATITIS 5 [facility] B INC INC SURFACE ANTIGEN HEPATITIS 97692 [facility] B SURF 5 [facility] ANTIBODY INC INC HBSAB BLOOD 49274 [facility] T[facility] COUNT 5 [facility] COMPLETE INC INC AUTO&AUTO DIFRNTL WBC HEPATITIS 78841 [facility] C 5 [facility] ANTIBODY INC INC COMPREHEN 31188 BRANDON BRAND[facility] SIVE 5 [facility] METABOLIC INC INC PANEL COLLECTIO 28976 [facility] N VENOUS 5 [facility] BLOOD INC INC VENIPUNCT URE DUP-SCAN 58854 [place] FLANN[place] ALL XTR VEINS 5 MEDICAL IMAGING UNILATERA ASS L/LIMITED STUDY CV STRS 79342 [facility] KILLIAN ACOSTA TST 5 PHYSICIAN XERS&/OR S GROUP RX CONT ECG W/O I&R CV STRS 79382 [facility] TST 5 [facility] XERS&/OR INC INC RX CONT ECG TRCG ONLY INJECTION J2785 [facility] 5 [facility] REGADENOS INC INC ON 0.1 MG CV STRS 81761 BRANDON WELLS TST 5 [facility] ER&/OR [facility] RX CONT P ECG I&R ONLY TECHNETIU A9500 BR[facility]ON Wayne TC-99M 5 [facility] SESTAMIBI INC INC DX PER STUDY DOSE MYOCARDIA 25059 [facility] T[facility] L SPECT 5 [facility] MULTIPLE INC INC STUDIES RADEX 63695 [facility] T[facility] RIBS UNI 5 [facility] W/POSTERO INC INC ANT CH MINIMUM 3 VIEWS RADIOLOGI 62848 [facility] C 5 [facility] EXAMINATI INC INC ON KNEE 3 VIEWS GROUND A0425 [facility] MILEAGE 5 AMBULANCE AMBULANCE PER SERVICE SERVICE STATUTE MILE AMBULANCE A0429 [facility] SERVICE 5 AMBULANCE AMBULANCE BLS SERVICE SERVICE EMERGENCY TRANSPORT RADIOLOGI 51036 [facility] C 5 [facility] EXAMINATI INC INC ON CHEST SINGLE VIEW FRONTAL RADEX 24598 [facility] WRIST 5 [facility] COMPLETE INC INC MINIMUM 3 VIEWS RADIOLOGI 70540 [facility] C 5 [facility] EXAMINATI INC INC ON PELVIS 1/2 VIEWS RADEX 17335 [place] FLANN[place] ALL RIBS 5 MEDICAL UNILATERA IMAGING L 2 VIEWS ASS RADEX 23246 [facility] T[facility] SHOULDER 5 [facility] COMPLETE INC INC MINIMUM 2 VIEWS BLOOD 65227 [facility] COUNT 5 [facility] COMPLETE INC INC AUTO&AUTO DIFRNTL WBC BASIC 46590 [facility] METABOLIC 5 [facility] PANEL INC INC CALCIUM TOTAL COLLECTIO 24974 [facility] N VENOUS 5 [facility] BLOOD INC INC VENIPUNCT URE BLD GLU A4253 CRISTIN AMARAL TEST/REAG 5 HOME HOME [facility] BLD EQUIPME [place]U [place]-[address] [place] [address] [place] [facility] [place] [facility]BDOMEN & 5 MEDICAL ANITA PELVIS IMAGING W/CONTRAS ASS T MATERIAL GLUCOSE 81962 [facility] QUANTITAT 5 Y Y ANNABELLAFORMERLY [facility] XCPT REAGENT STRIP BLOOD 97655 [facility] COUNT 5 Y Y COMPLETE [facility]OSPITAL [facility] AUTOMATED SPCL STN 69081 [facility] 2 I&R 5 Y Y EXCPT HOSPITAL HOSPITAL MICROORG/ ENZYME/IM CYT PROTHROMB 45606 [facility] IN TIME 5 Y Y [facility]OSPITAL [facility] RADIOLOGI 08604 [facility] CHEST [place] FRONTAL BIOPSY 55613 [facility] LIVER [address] [facility] PERCUTANE OUS THROMBOPL 57857 [facility] ASTIN 5 Y Y TIME [facility]OSPITAL [facility] PARTIAL PLASMA/WH OLE BLOOD INFUSION J7030 [facility] NORMAL 5 Y Y SAL[address] [facility] SOLUTION 1000 [place] V [address] [facility] SURG 5 Y Y PATHOLOGY [facility] GROSS&SHANTHI ROSCOPIC EXAM IMHISTOCH 63230 LOC [facility] EM/CYTCHM 5 PATHOLOGY PATHOLOGY 1ST SERVICES [place] [address] [facility] SURG 5 PATHOLOGY PATHOLOGY PATHOLOGY SERVICES SERVICES GROSS&SHANTHI ROSCOPIC EXAM IMHISTOCH 92025 LOC [facility] EM/CYTCHM 5 PATHOLOGY PATHOLOGY EA ADDL SERVICES SERVICES ANTIBODY SLIDE CUL BACT 62042 [facility] XCPT 5 [facility] URINE INC INC BLOOD/STO OL AEROBIC ISOL CUL BACT 97439 [facility] AEROBIC 5 [facility] ADDL INC INC METHS DEFINITIV E EA ISOL SUSCEPTIB 32432 [facility] LTY STDY 5 [facility] ANTIMICRB INC INC IAL MICRO/AGA R DILUTJ RADEX 93560 [facility] SPINE 5 MEDICAL AYLA CERVICAL IMAGING 2 OR 3 ASS VIEWS PRESSURIZ 39489 [facility] ED/NONPRE 5 [facility] SSURIZED INC INC INHALATIO N TREATMENT NONINVASI 28593 [facility] VE 5 [facility] EAR/PULSE INC INC OXIMETRY SINGLE DETER BASIC 65702 [facility] ADRIAN METABOLIC 5 [facility] EED MOH PANEL INC CALCIUM TOTAL COLLECTIO 92121 [facility] N VENOUS 5 [facility] BLOOD INC INC VENIPUNCT URE BLOOD 56515 [facility] COUNT 5 [facility] COMPLETE INC INC AUTO&AUTO DIFRNTL WBC GLUC BLD 55368 [facility] GLUC MNTR 5 [facility] DEV INC INC CLEARED [facility] G0378 [facility] RABAGOON OBSERVATI 5 [facility] ON INC INC SERVICE PER HOUR OBSERVATI 03579 [facility] 5 [facility] OBSERVATI 5 [facility] [place] [address] [facility] STREPTOCO 5 [facility] CCUS INC INC GROUP A GLUC BLD 89686 [facility] GLUC MNTR 5 [facility] DEV INC INC CLEARED FDA SPEC HOME USE BLOOD 58846 [facility] COUNT 5 [facility] COMPLETE INC INC AUTO&AUTO DIFRNTL WBC IAADI 80869 [facility] INFFLUENZ 5 [facility] A A VIRUS INC INC IAADI 25048 [facility] INFLUENZA 5 [facility] B VIRUS INC INC RADIOLOGI 08063 [facility] C 5 [facility] EXAMINATI INC INC ON CHEST SING[place] FRONTAL CUL BACT 97883 [facility] XCPT 5 [facility] URINE INC INC BLOOD/STO OL AEROBIC ISOL CUL BACT 69577 [facility] AEROBIC 5 [facility] ADDL INC [place] [address] [facility] INFUSION 5 [facility] THER INC INC PROPH ADDL SEQUENTIA L TO 1 HR INITIAL 28352 [place] USERY AND OBSERVATI 5 COOL ON INTERNAL CARE/[place] 30 [place] [address] [facility]USION 5 [facility] THERAPY/P INC INC ROPHYLAXI S /DX 1ST TO 1 HR INJECTION J2310 [facility] NALOXONE 5 [facility] HCL PER INC INC 1 MG THERAPEUT 53251 [facility] IC 5 [facility] INJECTION INC INC IV PUSH EACH NEW DRUG SUSCEPTIB 06328 [facility] LTY STDY 5 [facility] ANTIMICRB INC INC IAL MICRO/AGA R DILUTJ CULTURE 38354 [facility] BACTERIAL 5 [facility] BLOOD INC INC AEROBIC W/ID ISOLATES RADIOLOGI 65729 [facility] 5 MEDICAL AYLA EXAMINATI IMAGING ON CHEST ASS SINGLE VIEW FRONTAL HEPATITIS 82011 [place] SOURIANAR A & B 5 MEDICAL [facility] VACCINE SERV ACH HEPA-HEPB FOUNDATIO ADULT IM N PROTHROMB 48921 [facility] IN TIME 5 [facility] INC INC BLOOD 62879 [facility] COUNT 5 [facility] COMPLETE INC INC AUTO&[place] [address] [facility] GAMMAGLOB 5 [facility] ULIN IGA INC INC IGD IGG IGM EACH COLLECTIO 15439 [facility] N VENOUS 5 [facility] BLOOD INC INC VENIPUNCT URE COMPREHEN 75009 [facility] SIVE 5 [facility] METABOLIC INC INC PANEL IM ADM 44954 BUNNY SOURIANAR PRQ ID 5 MEDICAL [facility]NE SUBQ/IM SERV ACH NJXS 1 FOUNDATIO VACCINE N RADEX 65154 [place] [facility] SHOULDER 5 MEDICAL A[facility]LA COMPLETE IMAGING MINIMUM 2 ASS VIEWS RADEX HIP 28969 [place] [facility] 5 MEDICAL AYLA UNILATERA IMAGING L ASS COMPLE[place] [address] [place] [address] [place] [facility] HEAD/BRAI 5 MEDICAL AYLA N W/O IMAGING CONTRAST ASS MATERIAL RADEX 46855 [facility] WRIST 4 [facility] COMPLETE INC INC MINIMUM 3 VIEWS APPLICATI 50894 [facility]ORT 4 KAMAR MOH ARM EMERGENCY SPLINT PHYS FOREARM-H AND STATIC RADEX 99643 [facility] HAND 4 [facility] MINIMUM 3 INC INC VIEWS BLD GLU A4253 CRISTIN JORDANRELL TEST/REAG 4 HOME [facility] BLD EQUIPME EQUIPME GLU MON-50 PREPJ& 02643 MARNI MARNI ALLERGEN 4 LUIS ALFREDO LOBATO IMMUNOTHE RAPY 1/CONTINUING EDUCATION SPECIALIST ANTIGEN ADMINISTR G0010 BUNNY SOURIANAR ATION OF 4 MEDICAL [facility] HEPATITIS SERV ACH B FOUNDATIO VACCINE N HEPATITIS 37849 [place] SOU[place] A & B 4 MEDICAL [facility] VACCINE SERV ACH HEPA-HEPB FOUNDATIO ADULT IM N SPMTRY 32184 MARNI MARNI W/VC 4 LUIS ALFREDO LUIS ALFREDO EXPIRATOR Y LULU W/WO MXML VOL VNTJ COMPRE 86723 EAR, NOSE EAR, NOSE AUDIOMETR 4 AND AND Y THROAT THROAT THRESHOLD SPECIAL SPECIAL EVAL SP RECOGNIJ TYMPANOME 12836 EAR, NOSE SHASHY TRY 4 AND SOBEIDA THROAT SPECIAL LIPID 86242 [facility] PANEL 4 [facility] INC INC COMPREHEN 58280 [facility] SIVE 4 [facility] METABOLIC INC INC PANEL COLLECTIO 83343 [facility] N VENOUS 4 [facility] [place] [address] [facility] THYROID 4 [facility] STIMULATI [place] [address] [facility] AMMONIA 4 [facility] INC INC BLOOD 60678 [facility] COUNT 4 [facility] COMPLETE INC INC AUTO&AUTO DIFRNTL WBC RADEX HIP 74085 [facility] 4 [facility] UNILATERA INC INC L COMPLETE MINIMUM 2 VIEWS ALBUMIN 59581 [facility] URINE 4 [facility] MICROALBU INC INC MIN QUANTIATI VE HEMOGLOBI 49663 [facility] N 4 [facility] GLYCOSYLA INC INC ML A1C DETERMINA 50749 EVELYN RAMIREZ TION 4 [facility] 90584 [facility] 4 VISION XM&EVAL CENTER COMPRHNSV ESTAB PT > ANTINUCLE 67776 [facility] AR 4 Y Y ANTIBODIE [facility] S NADINE TITER COMPREHEN 24829 [facility] 4 Y Y METABOLIC [facility] PANEL COLLECTIO 94020 [facility] N VENOUS 4 Y Y BLOOD [facility] VENIPUNCT URE ANTINUCLE 94458 [facility] AR 4 Y Y ANTIBODIE [facility] S NADINE BLD GLU A4253 CRISTIN CRISTIN TEST/REAG 4 HOME [facility] BLD EQUIPME EQUIPME GLU MON-50 FOR DIAB A5512 [facility] ONLY MX 4 MEDICAL MEDICAL DNSITY SUPPLY SUPPLY INSRT DIR [employer] FORMD PRFAB EA DIAB ONLY A5500 [facility] FIT CSTM 4 MEDICAL MEDICAL PREP&SPL SUPPLY SUPPLY [employer] DNSITY INSRT ESOPHAGOG 92213 [place] CHANI ASTRODUOD 4 MEDICAL AMANDA ENOSCOPY SERV TRANSORAL FOUNDATIO DIAGNOSTI C INFUSION J7030 [facility] 4 Y Y SAL[address] [facility] SOLUTION 1000 CC COLOREC G0121 [place] WILDE CANCR 4 MEDICAL AMANDA SCR; SERV COLNSCPY FOUNDATIO NOT MEET HI RISK GLUCOSE 09447 [facility] 4 Y Y ANNABELLA BLOOD [facility] XCPT REAGENT STRIP BIOPSY 28514 [facility] SKIN 4 DERMATOLO DERMATOLO SUBQ&/MUC GY GY OUS MEMBRANE EA ADDL LESN BX SKIN 54720 [facility] SUBCUTANE 4 DERMATOLO DERMATOLO OUS&/MUCO GY GY US MEMBRANE 1 LESION CUL BACT 80257 [facility] XCPT 4 DIAGNOSTI DIAGNOSTI URINE CS CS BLOOD/[place] [address] [facility] SURG 4 DERMATOLO DERMATOLO PATHOLOGY GY GY GROSS&SHANTHI ROSCOPIC EXAM COMPREHEN 98566 [facility] SIVE 4 [facility] METABOLIC INC INC PANEL COLLECTIO 68604 [facility] N VENOUS 4 [facility] BLOOD INC INC VENIPUNCT URE BLOOD 67041 [facility] COUNT 4 [facility] COMPLETE INC INC AUTO&AUTO DIFRNTL WBC BLD GLU A4253 CRISTIN JORDANRELL TEST/REAG 4 HOME [facility] BLD EQUIPME EQUIPME GLU MON-50 US SOFT 10766 [facility] TISSUE 4 [facility] HEAD & INC INC NECK REAL TIME IMGE DOCM CULTURE 28275 [facility] BACTERIAL 4 [facility] INC INC QUANTTATI VE COLONY COUNT URINE COLLECTIO 13817 [facility] N VENOUS 4 [facility] BLOOD INC INC VENIPUNCT URE COMPREHEN 60413 [facility] SIVE 4 [facility] METABOLIC INC INC PANEL CULTURE 34580 [facility] BACTERIAL 4 [facility] BLOOD INC INC AEROBIC W/ID ISOLATES BLOOD 32497 [facility] COUNT 4 [facility] COMPLETE INC INC AUTO&AUTO DIFRNTL WBC RADIOLOGI 30062 [facility] EXAM 4 MEDICAL AYLA CHEST 2 IMAGING VIEWS ASS FRONTAL&L ATERAL HEPATITIS 14960 [facility] CORE 4 Y Y ANTIBODY [facility] HBCAB TOTAL HEPATITIS 80509 [facility] SURF 4 Y Y ANTIBODY [facility] [place] [address] [facility] HEPATITIS 4 Y Y B [facility] SURFACE ANTIGEN HEPATITIS 25528 [facility] C 4 Y Y ANTIBODY [facility] COLLECTIO 71179 [facility] N VENOUS 4 Y Y BLOOD [facility] VENIPUNCT URE FLUORESCE 39707 [facility] NT 4 Y Y NONNFCT [facility] AGT ANTB SCREEN EA ANTIBODY IADNA 40749 [facility] HEPATITIS 4 Y Y C QUANT [facility] & REVERSE TRANSCRIP TION ANTIBODY 20512 [facility] IDENTIFIC 4 Y Y ATION [facility] LEUKOCYTE ANTIBODIE S HEPATITIS 17325 [facility] A 4 Y Y ANTIBODY [facility] HAAB LOCM Q9967 [facility] [phone] Y Y MG/ML [facility] IODINE CONCENTRA TION PER ML INFUSION J7030 [facility] NORMAL 4 Y Y SALINE [facility] SOLUTION 1000 CC INJECTION J2405 [facility] H[facility] PER 1 MG COMPREHEN 91890 [facility] SIVE 4 Y Y METABOLIC [facility] PANEL RINGERS J7120 [facility] LACTATE 4 Y Y INFUSION [facility] UP TO 1000 CC THER 52143 [facility] PROPH/DX 4 Y Y NJX IV [facility] PUSH SINGLE/1S T SBST/DRUG BLOOD 43064 [facility] COUNT 4 Y Y COMPLETE [facility] [place] [address] [place] VIV[place] ABDOMEN & 4 MEDICAL OLIVIA PELVIS SERV W/CONTRAS FOUNDATIO T MATERIAL URNLS DIP 47562 [facility] 4 Y Y STICK/TAB [facility] LET RGNT AUTO W/O MICROSCOP Y URNLS DIP 87303 [facility] 4 [facility] STICK/TAB INC INC [place] [address] [facility] LIPASE 4 [facility] INC INC BLOOD 60844 [facility] COUNT 4 [facility] COMPLETE INC INC AUTO&[place] [address] [facility] AMYLASE 4 [facility] INC INC COMPREHEN 52460 [facility] SIVE 4 [facility] METABOLIC INC INC PANEL COLLECTIO 30414 [facility] N VENOUS 4 [facility] BLOOD INC INC VENIPUNCT URE CULTURE 79003 [facility] BACTERIAL 4 [facility] INC INC QUANTTATI VE COLONY COUNT URINE SUSCEPTIB 41048 [facility] LTY STDY 4 [facility] ANTIMICRB INC INC IAL MICRO/AGA R DILUTJ CULTURE 98197 [facility] BCT 4 [facility] ISOL&PRSM INC INC PTV ID ISOLATE EA URINE SCR G0145 [facility] CYTOPATH 4 [facility] CERV/VAG SCR AUTO&MNL RSCR PHYS ECG 76726 [facility] ROUTINE 4 KAMAR ECG EMERGENCY W/LEAST PHYS 12 LDS I&R ONLY RADIOLOGI 54924 [facility] CORONEL C EXAM 4 MEDICAL AYLA CHEST 2 IMAGING VIEWS ASS FRONTAL&L ATERAL ECG 39154 [facility] ROUTINE 4 [facility] ECG INC INC W/LEAST 12 LDS TRCG ONLY W/O I&R CREATINE 57006 [facility] KINASE 4 [facility] TOTAL INC INC NATRIURET 88994 [facility] IC 4 [facility] [place] [place] [address] [facility] TROPONIN 4 [facility] QUANTITAT INC INC ANNABELLA ECG 00796 [facility] ROUTINE 4 [facility] W/LEAST P 12 LDS I&R ONLY CREATINE 09367 [facility] KINASE MB 4 [facility] FRACTION INC INC ONLY BLOOD 83987 [facility] COUNT 4 [facility] COMPLETE INC INC AUTO&AUTO DIFRNTL WBC BASIC 01461 [facility] METABOLIC 4 [facility] PANEL INC INC CALCIUM TOTAL COLLECTIO 07020 [facility] N VENOUS 4 [facility] BLOOD INC INC VENIPUNCT URE BLD GLU A4253 CRISTIN AMARAL TEST/REAG 4 HOME [facility] BLD EQUIPME EQUIPME GLU MON-50 ALBUTEROL J7613 YOUR YOUR INHAL 4 PHARMACY PHARMACY NON-CP Impulsiv PROD THRU DME U DOSE 1 MG PHRM Q0513 YOUR YOUR DISPENSIN 4 PHARMACY PHARMACY G FEE [employer] INHALATIO N RX; PER 30 DAYS LANCETS A4259 CRISTIN AMARAL PER BOX 4 HOME HOME OF 100 MEDICAL MEDICAL EQUIPME EQUIPME ADMN SET A7005 YOUR YOUR W/SM VOL 4 PHARMACY PHARMACY NONFILTR [employer] [facility] NEBULIZR NON-DISPB L E-STIM G0283 [facility] 1/> AREAS 4 [facility] OTH THAN INC INC WND CARE PART TX PLAN APPLICATI 27609 [facility] ON 4 [facility] MODALITY INC INC 1/> AREAS HOT/COLD PACKS APPLICATI 09255 [facility] ON 4 [facility] MODALITY INC INC 1/> AREAS HOT/COLD PACKS E-STIM G0283 [facility] 1/> AREAS 4 [facility] OTH THAN INC INC WND CARE PART TX PLAN APPL 15676 [facility] MODALITY 4 [facility] 1/> AREAS INC INC 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 L APPL 89485 [facility] MODALITY 4 [facility] 1/> AREAS INC INC 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 L E-STIM G0283 [facility] 1/> AREAS 4 [facility] OTH THAN INC INC WND CARE PART TX PLAN APPLICATI 13474 [facility] ON 4 [facility] MODALITY INC INC 1/> AREAS HOT/COLD PACKS COLLECTIO 87472 [facility] N VENOUS 4 [facility] BLOOD INC INC VENIPUNCT URE COMPREHEN 34881 [facility] SIVE 4 [facility] METABOLIC INC INC PANEL LIPID 14971 [facility] PANEL 4 [facility] INC INC APPL 57720 [facility] MODALITY 4 [facility] 1/> AREAS INC INC ELEC STIMJ EA 15 MIN APPLICATI 21445 [facility] ON 4 [facility] MODALITY INC INC 1/> AREAS HOT/COLD PACKS E-STIM G0283 [facility] 1/> AREAS 4 [facility] OTH THAN INC INC WND CARE PART TX PLAN APPL 25076 [facility] MODALITY 4 [facility] 1/> AREAS INC INC 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 L TENS E0730 EMPI INC EMPI INC DEVICE 4 4/MORE LEADS MULTI NERVE STIMULATI ON APPL 71204 [facility] MODALITY 4 [facility] 1/> AREAS INC INC 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 L LANCETS A4259 CRISTIN AMARAL PER BOX 4 HOME HOME OF 100 MEDICAL MEDICAL EQUIPME EQUIPME E-STIM G0283 [facility] 1/> AREAS 4 [facility] OTH THAN INC INC WND CARE PART TX PLAN APPLICATI 03141 [facility] ON 4 [facility] MODALITY INC INC 1/> AREAS HOT/COLD PACKS BLD GLU A4253 CRISTIN AMARAL TEST/REAG 4 HOME HOME [facility] BLD EQUIPME EQUIPME GLU MON-50 URNLS DIP 13077 BRAND[facility] MIRANDA 4 [facility] LET RGNT P NON-AUTO W/O MICRSCP APPLICATI 08483 [facility] ON 4 [facility] MODALITY INC INC 1/> AREAS HOT/COLD PACKS E-STIM G0283 [facility] 1/> AREAS 4 [facility] OTH THAN INC INC WND CARE PART TX PLAN RADIOLOGI 76407 [facility] C EXAM 4 MEDICAL AYLA CHEST 2 IMAGING VIEWS ASS FRONTAL&L ATERAL ECG 99969 [facility] WELLS ROUTINE 4 [facility] W/LEAST P 12 LDS I&R ONLY ECG 23425 BRANDON CHOWDHURY JR ROUTINE 4 [facility] W/LEAST P 12 LDS I&R ONLY RADIOLOGI 95222 [facility] 4 MEDICAL AYLA CHEST 2 IMAGING VIEWS ASS FRONTAL&L ATERAL E-STIM G0283 [facility] 1/> AREAS 4 [facility] OTH THAN INC INC WND CARE PART TX PLAN APPL 70732 [facility] MODALITY 4 [facility] 1/> AREAS INC INC ULTRASOUN D EA 15 MIN APPLICATI 86605 [facility] ON 4 [facility] MODALITY INC INC 1/> AREAS HOT/COLD PACKS APPL 49302 [facility] MODALITY 4 [facility] 1/> AREAS INC INC 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 L APPL 32598 [facility] MODALITY 4 [facility] 1/> AREAS INC INC 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 L APPL 84983 [facility] MODALITY 4 [facility] 1/> AREAS INC INC ULTRASOUN D EA 15 MIN NERVE 98659 AMA [facility] CONDUCTIO 4 NEUROLOGY [facility] N STUDIES CENTER 5-6 MITCH STUDIES NEEDLE 85770 AMA WYMAN EMG EA 4 NEUROLOGY [facility] EXTREMTY CENTER W/PARASPI MITCH NL AREA COMPLETE MRI 11593 [facility] SPINAL 4 [facility] CANAL INC INC LUMBAR W/O CONTRAST MATERIAL 3D 91616 [facility] HOMER RENDERING 4 MEDICAL AYLA IMAGING W/INTERP& ASS POSTPROC DIFF WORK STATION 3D 75040 [facility] RENDERING 4 [facility] W/INTERP INC INC & POSTPROCE SS SUPERVISI ON APPLICATI 37385 [facility] ON 4 [facility] MODALITY INC INC 1/> AREAS HOT/COLD PACKS E-STIM G0283 [facility] 1/> AREAS 4 [facility] OTH THAN INC INC WND CARE PART TX PLAN APPL 00403 [facility] MODALITY 4 [facility] 1/> AREAS INC INC 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 L APPL 78242 [facility] MODALITY 4 [facility] 1/> AREAS INC INC ULTRASOUN D EA 15 MIN APPL 97109 [facility] MODALITY 4 [facility] 1/> AREAS INC INC ULTRASOUN D EA 15 MIN APPL 33646 [facility] MODALITY 4 [facility] 1/> AREAS INC INC 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 L E-STIM G0283 [facility] 1/> AREAS 4 [facility] OTH THAN INC INC WND CARE PART TX PLAN APPLICATI 05727 [facility] ON 4 [facility] MODALITY INC INC 1/> AREAS HOT/COLD PACKS PHYSICAL 53042 [facility] THERAPY 4 [facility] EVALUATIO INC INC N APPLICATI 99967 [facility] ON 4 [facility] MODALITY INC INC 1/> AREAS HOT/COLD PACKS E-STIM G0283 [facility] 1/> AREAS 4 [facility] OTH THAN INC INC WND CARE PART TX PLAN APPL 26450 [facility] MODALITY 4 [facility] 1/> AREAS INC INC ULTRASOUN D EA 15 MIN APPL 49610 [facility] MODALITY 4 [facility] 1/> AREAS INC INC ULTRASOUN D EA 15 MIN E-STIM G0283 [facility] 1/> AREAS 4 [facility] OTH THAN INC INC WND CARE PART TX PLAN APPLICATI 24991 [facility] ON 4 [facility] MODALITY INC INC 1/> AREAS HOT/COLD PACKS APPL 49634 [facility] MODALITY 4 [facility] 1/> AREAS INC INC 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 L APPL 65054 [facility] MODALITY 4 [facility] 1/> AREAS INC INC 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 L LANCETS A4259 CRISTIN AMARAL PER BOX 4 HOME HOME OF 100 MEDICAL MEDICAL EQUIPME EQUIPME APPLICATI 81346 [facility] ON 4 [facility] MODALITY INC INC 1/> AREAS HOT/COLD PACKS E-STIM G0283 [facility] 1/> AREAS 4 [facility] OTH THAN INC INC WND CARE PART TX PLAN APPL 55718 [facility] MODALITY 4 [facility] 1/> AREAS INC INC ULTRASOUN D EA 15 MIN BLD GLU A4253 CRISTIN AMARAL TEST/REAG 4 HOME HOME T [facility] BLD EQUIPME EQUIPME GLU MON-50 E-STIM G0283 [facility] 1/> AREAS 4 [facility] OTH THAN INC INC WND CARE PART TX PLAN APPLICATI 62598 [facility] ON 4 [facility] MODALITY INC INC 1/> AREAS HOT/COLD PACKS APPL 64321 [facility] MODALITY 4 [facility] 1/> AREAS INC INC ULTRASOUN D EA 15 MIN APPL 61649 [facility] MODALITY 4 [facility] 1/> AREAS INC INC 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 L APPL 76446 [facility] MODALITY 4 [facility] 1/> AREAS INC INC 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 L APPL 77649 [facility] MODALITY 4 [facility] 1/> AREAS INC INC ULTRASOUN D EA 15 MIN APPLICATI 80077 [facility] ON 4 [facility] MODALITY INC INC 1/> AREAS HOT/COLD PACKS E-STIM G0283 [facility] 1/> AREAS 4 [facility] OTH THAN INC INC WND CARE PART TX PLAN E-STIM G0283 [facility] 1/> AREAS 4 [facility] OTH THAN INC INC WND CARE PART TX PLAN APPLICATI 19043 BR[facility] RABAGOON ON 4 [facility] MODALITY INC INC 1/> AREAS HOT/COLD PACKS APPL 87834 [facility] MODALITY 4 [facility] 1/> AREAS INC INC ULTRASOUN D EA 15 MIN APPL 00199 [facility] MODALITY 4 [facility] 1/> AREAS INC INC 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 L INJECTION J2405 [facility] 3 [facility] ONDANSETR INC INC ON HCL PER 1 [place] [address] [facility] INFUSION 3 [facility] THERAPY/P INC INC ROPHYLAXI S /DX 1ST TO 1 HR THERAPEUT 33705 [facility] IC 3 [facility] INJECTION [place] [address] [facility] INFUSION 3 [facility] THERAPY INC INC PROPHYLAX IS/DX EA HOUR ANES 67396 [facility] TRANSURET 3 ANESTH HRAL OF THE W/URETHRO BLUE CYSTOSCOP Y NOS CYSTO 64591 [facility] MIRANDA CALIBRATI 3 [facility] URT[facility] P STRIX/CATRACHITO NOSIS GLUC BLD 35269 [facility] GLUC MNTR 3 [facility] DEV INC INC CLEARED FDA SPEC HOME USE URNLS DIP 54957 [facility] MIRANDA 3 [facility] LET RGNT P NON-AUTO W/O MICRSCP PROF SVCS 65640 MARNI MARNI ALLG 3 LUIS ALFREDO LUIS ALFREDO IMMNTX X W/PRV ALLGIC XTRCS NJXS PROF SVCS 71936 MARNI MARNI ALLG 3 LUIS ALFREDO LUIS ALFREDO IMMNTX X W/PRV ALLGIC XTRCS NJXS MYOCARDIA 02733 [facility] Yoon SPECT 3 [facility] MULTIPLE INC INC STUDIES SMR PRIM 87839 [facility] SRC 3 [facility] GRAM/GIEM INC INC SA STAIN BCT FUNGI/VERÓNICA L SUSCEPTIB 00654 [facility] LTY STDY 3 [facility] ANTIMICRB INC INC IAL MICRO/AGA R DILUTJ TECHNETIU A9500 [facility] M TC-99M 3 [facility] SESTAMIBI INC INC DX PER STUDY DOSE CV STRS 86886 [facility] TST 3 [facility] XERS&/OR INC INC RX CONT ECG TRCG ONLY INJECTION J2785 [facility] 3 [facility] REGADENOS INC INC ON 0.1 MG CUL BACT 49538 [facility] STOOL 3 [facility] AEROBIC INC INC ISOL SALMONELL A&SHIGELL BLOOD 56724 [facility] COUNT 3 [facility] COMPLETE INC INC AUTO&[place] [address] [facility] AMYLASE 3 [facility] [place] [address] [facility] LIPASE 3 [facility] INC INC COMPREHEN 34669 [facility] SIVE 3 [facility] METABOLIC INC INC PANEL COLLECTIO 57553 [facility] N VENOUS 3 [facility] BLOOD INC INC VENIPUNCT URE ALBUTEROL J7613 YOUR YOUR INHAL 3 PHARMACY PHARMACY NON-CP [employer] PROD THRU DME U DOSE 1 MG PHRM Q0513 YOUR YOUR DISPENSIN 3 PHARMACY PHARMACY G FEE [employer] [facility] INHALATIO N RX; PER 30 DAYS CULTURE 04121 [facility] BCT 3 [facility] ISOL&PRSM INC INC PTV ID ISOLATE EA URINE CULTURE 48017 [facility] BACTERIAL [facility] INC INC QUANTTATI VE COLONY COUNT URINE SUSCEPTIB 56132 [facility] LTY STDY 3 [facility] ANTIMICRB INC INC IAL MICRO/AGA R DILUTJ URNLS DIP 80420 [facility] MIRANDA 3 [facility] LET RGNT P NON-AUTO W/O MICRSCP INSJ 86027 BRANDON MIRANDA NON-NDWEL 3 [place] [address] [facility] ABDOMEN & 3 [facility] PELVIS INC INC W/[place] [address] [facility] LIPASE 3 [facility] INC INC BLOOD 24408 [facility]KATI [facility] COUNT 3 [facility] COMPLETE INC INC AUTO&AUTO DIFRNTL WBC THERAPEUT 38969 [facility] IC 3 [facility] PROPHYLAC INC INC TIC/DX INJECTION SUBQ/IM PROF SVCS 88951 MARNI MARNI ALLG 3 [facility] ALFR[facility]O IMMNTX X W/PRV ALLGIC XTRCS NJXS RADEX ABD 07999 [facility] COMPL [facility] AQT ABD INC INC W/S/E/D VIEWS 1 VIEW CH COMPREHEN 71298 [facility] SIVE 3 [facility] METABOLIC INC INC PANEL INJECTION J2405 [facility] ONDANSETR INC INC ON HCL PER 1 MG 3D 14322 [facility] RENDERING 3 [facility] INC INC W/INTERP& POSTPROC DIFF WORK STATION PROF SVCS 45756 MARNI MARNI ALLG 3 [facility]IS ALFREDO LUIS ALFREDO IMMNTX X W/PRV ALLGIC XTRCS NJXS SPMTRY 10186 MARNI MARNI W/VC 3 [facility] AL[facility]IS ALFR[facility] EXPIRATOR Y LULU W/WO MXML VOL VNTJ CULTURE 34549 [facility] BACTERIAL [facility] INC INC QUANTTATI VE COLONY COUNT URINE PROF SVCS 00151 MARNI MARNI ALLG 3 LUIS ALFREDO LUIS ALFREDO IMMNTX X W/PRV ALLGIC XTRCS NJXS PROF SVCS 31509 MARNI MARNI ALLG 3 [facility]IS ALFREDO LUIS ALFREDO IMMNTX X W/PRV ALLGIC XTRCS NJXS CULTURE 13480 COMBINED COMBINED BACTERIAL 3 PHYSICIAN PHYSICIAN S LA S LA QUANTTATI VE COLONY COUNT URINE COLLECTIO 73965 [facility] N VENOUS 3 [facility] BLOOD INC INC VENIPUNCT URE BLOOD 49651 [facility] COUNT 3 [facility] COMPLETE INC INC AUTO&AUTO DIFRNTL WBC POSTERIOR V2632 [facility] CHAMBER [facility] INTRAOCUL INC INC AR LENS GLUC BLD 71314 [facility] GLUC MNTR 3 [facility] DEV INC INC CLEARED FDA SPEC HOME USE CATARACT 13983 [facility] REMOVAL 3 [facility]YE [facility] [address]87 MARNI MARNI ALLG 3 LUIS ALFREDO LUIS ALFREDO IMMNTX [place] [address] [facility] INFUSION 3 [facility] THERAPY/P INC INC ROPHYLAXI S /DX 1ST TO 1 [place] [address] [facility] INFUSION 3 [facility] THERAPY INC INC PROPHYLAX IS/DX EA HOUR CULTURE 82707 [facility] BACTERIAL 3 [facility] INC INC QUANTTATI VE COLONY COUNT URINE COMPREHEN 73129 [facility] SIVE 3 [facility] METABOLIC INC INC PANEL COLLECTIO 89835 [facility] N VENOUS 3 [facility] BLOOD INC INC VENIPUNCT URE BLOOD 17418 [facility] COUNT 3 [facility] COMPLETE INC INC AUTO&AUTO DIFRNTL WBC PROF SVCS 02407 MARNI MARNI ALLG 3 [facility] ALFREDO LUIS ALFREDO IMMNTX X W/PRV ALLGIC XTRCS NJXS PROF SVCS 67911 MARNI MARNI ALLG 3 [facility] ALFREDO LUIS ALFREDO IMMNTX X W/PRV ALLGIC XTRCS NJXS SPMTRY 80700 MARNI MARNI W/VC 3 [facility] LUIS ALFREDO EXPIRATOR Y LULU W/WO MXML VOL VNTJ POSTERIOR V2632 [facility] [facility] INTRAOCUL INC INC AR LENS CATARACT 76962 [facility] INSERTION INC INC OF LENS GLUC BLD 53960 [facility] GLUC MNTR 3 [facility] DEV [place] [address] [facility] INFUSION 3 [facility] THERAPY/P INC INC ROPHYLAXI S /DX 1ST TO 1 [place] [address] [facility] INFUSION 3 [facility] THERAPY INC INC PROPHYLAX IS/DX EA HOUR OPH BMTRY 41846 [facility] 3 EYE [facility] IN[facility] A-SCAN IO LENS PWR CHETAN CULTURE 15994 [facility] BACTERIAL 3 [facility] INC INC QUANTTATI VE COLONY COUNT URINE SUSCEPTIB 24787 [facility] LTY STDY 3 [facility] ANTIMICRB INC INC IAL MICRO/AGA R DILUTJ URNLS DIP 28582 [facility] 3 VALLEY JR PETR STICK/TAB INTERNAL LET RGNT MED NON-AUTO W/O MICRSCP CULTURE 18633 [facility] BCT [facility] ISOL&PRSM INC INC PTV ID ISOLATE EA URINE PHRM Q0513 YOUR YOUR DISPENSIN 3 PHARMACY PHARMACY G FEE [facility] INHALATIO N RX; PER 30 DAYS ADMN SET A7005 YOUR YOUR W/SM VOL 3 PHARMACY PHARMACY NONFILTR [facility] NEBULIZR NON-DISPB L ALBUTEROL J7613 YOUR YOUR INHAL 3 PHARMACY PHARMACY NON-CP [facility]ex [facility] PROD THRU DME U DOSE 1 MG INJECTION J2010 MARNI MARNI 3 [facility] LINCOMYCI N HCL UP TO 300 MG ANTINUCLE 29645 [facility] AR [facility] ANTIBODIE INC INC S NADINE COLLECTIO 17987 [facility] N VENOUS 3 [facility] BLOOD INC INC VENIPUNCT URE COMPLEMEN 96273 [facility] T TOTAL 3 [facility] HEMOLYTIC INC INC RHEUMATOI 05136 [facility] D FACTOR 3 [facility] QUANTITAT INC INC ANNABELLA ANTIBODY 11845 [facility] BACTERIUM 3 [facility] NOT INC INC ELSEWHERE SPECIFIED INJECTION J1040 MARNI MARNI 3 [facility] AL[facility] METHYLPRE DNISOLONE ACETATE 80 MG PRESSURIZ 18280 MARNI MARNI ED/NONPRE 3 [facility] SSURIZED INHALATIO N TREATMENT BRNCDILAT 95312 MARNI MARNI RSPSE 3 [facility] SPMTRY PRE&POST- BRNCDILAT ADMN GAMMAGLOB 01806 [facility] ULIN [facility] IMMUNOGLO [place] [address] [facility] THYROXINE 3 [facility] TOTAL INC INC 25 84212 [facility] HYDROXY 3 [facility] INCLUDES INC INC FRACTIONS IF PERFORMED RADIOLOGI 08048 [facility] C EXAM 3 [facility] CHEST 2 INC INC VIEWS FRONTAL&L ATERAL DEMO&/POLLY 49625 MARNI GRIDER L OF PT 3 [facility] UTILIZ AERSL GEN/NEB/I NHLR/IP CYANOCOBA 81215 [facility] PRATEEK 3 [facility] VITAMIN [place] B-12 [place] [address] [facility] GAMMAGLOB 3 [facility] ULIN IGA INC INC IGD IGG IGM EACH SEDIMENTA 46773 [facility] TION RATE 3 [facility] RBC INC INC NON-AUTOM ATED BLOOD 99804 [facility] COUNT 3 [facility] COMPLETE INC INC AUTO&AUTO DIFRNTL WBC THERAPEUT 03991 MARNI MICHELLEHBURN IC 3 [facility] AL[facility] PROPHYLAC TIC/DX INJECTION SUBQ/[place] [address] [facility] GAMMAGLOB 3 [facility] [place] [address] [facility] THYROID 3 [facility] STIMULATI INC INC NG HORMONE TSH C-REACTIV 52554 [facility] E PROTEIN 3 [facility] INC INC RADEX 75610 [facility] RIBS UNI 3 [facility] W/POSTERO INC INC ANT CH MINIMUM 3 VIEWS PROF SVCS 77803 MARNI MARNI ALLG 3 [facility] AL[facility] IMMNTX X W/PRV ALLGIC XTRCS NJXS CULTURE 50631 COMBINED COMBINED BACTERIAL 3 PHYSICIAN PHYSICIAN S LA S LA QUANTTATI VE COLONY COUNT URINE URNLS DIP 68407 [facility] 3 VALLEY CECE STICK/TAB INTERNAL LET RGNT MEDI NON-AUTO W/O MICRSCP OPHTH 57021 [facility] 3 EYE [facility] COMPRE NEW PT 1/> VST OPH BMTRY 50739 [facility] 3 [facility] A-SC[facility] IO [facility]ENS PWR CHETAN COLLECTIO 27446 [facility] N VENOUS 3 [facility] BLOOD INC INC VENIPUNCT URE BLOOD 74240 [facility] COUNT 3 [facility] COMPLETE INC INC AUTO&AUTO DIFRNTL WBC BLOOD 01678 [facility] COUNT 3 [facility] COMPLETE INC INC AUTO&AUTO DIFRNTL WBC URNLS DIP 76731 [facility] 3 VALLEY JR PETR STICK/TAB INTERNAL LET RGNT MED NON-AUTO W/O MICRSCP RADIOLOGI 08833 [facility] C EXAM 3 [facility] CHEST 2 INC INC VIEWS FRONTAL&L ATERAL COLLECTIO 28556 [facility] N VENOUS 3 [facility] BLOOD INC INC VENIPUNCT URE COMPREHEN 42870 [facility] SIVE 3 [facility] METABOLIC INC INC PANEL PROF SVCS 49237 MARNI MARNI ALLG 3 LUIS ALFREDO LUIS ALFREDO IMMNTX X W/PRV ALLGIC XTRCS NJXS PROF SVCS 19983 MARNI MARNI ALLG 3 LUIS ALFREDO LU[facility] ALFR[facility]O IMMNTX X W/PRV ALLGIC XTRCS NJXS PREPJ& 73735 MARNI MARNI ALLERGEN 3 [facility] AL[facility] IMMUNOTHE RAPY 1/CONTINUING EDUCATION SPECIALIST ANTIGEN BLD GLU A4253 M E D M E D TEST/REAG 3 SUPPLIES SUPPLIES T STRIPS HOME BLD GLU MON-50 LANCETS A4259 M E D M E D PER BOX 3 SUPPLIES SUPPLIES OF 100 PROF [facility] 27177 MARNI MARNI ALLG 3 LUIS ALFREDO LUIS ALFREDO IMMNTX X W/PRV ALLGIC XTRCS NJXS PROF [facility] 17673 MARNI MARNI ALLG 3 LUIS ALFREDO LUIS ALFREDO IMMNTX X W/PRV ALLGIC XTRCS NJXS SUSCEPTIB 35987 [facility] LTY STDY 3 [facility] ANTIMICRB INC INC IAL MICRO/AGA R DILUTJ CULTURE 85554 [facility] BACTERIAL 3 [facility] INC INC QUANTTATI VE COLONY COUNT URINE COLLECTIO 75412 [facility] N VENOUS 3 [facility] BLOOD INC INC VENIPUNCT URE COMPREHEN 71531 [facility] SIVE 3 [facility] METABOLIC INC INC PANEL URNLS DIP 15513 [facility] STICK/TAB INC INC LET REAGENT AUTO MICROSCOP Y BLOOD 29948 [facility] COUNT 3 [facility] COMPLETE INC INC AUTO&AUTO DIFRNTL WBC CULTURE 29645 [facility] BCT [facility] ISOL&PRSM INC INC PTV ID ISOLATE EA URINE CANE INCL E0100 [facility] CRIST[facility] CANES 3 HOME HOME ALL MEDICAL MEDICAL MATERIAL EQUIPME EQUIPME ADJUSTBLE /FIX W/TIP DXA BONE 23355 [facility] DENSITY 3 MEDICAL AYLA STUDY 1/> IMAGING SITES ASS AXIAL SKEL PROF [facility] 81952 MARNI MARNI ALLG 3 LUIS ALFREDO LUIS ALFREDO IMMNTX X W/PRV ALLGIC XTRCS NJXS RADIOLOGI 46248 [facility] C EXAM 3 MEDICAL AYLA CHEST 2 IMAGING VIEWS ASS FRONTAL&L ATERAL RADIOLOGI 09221 [facility] C EXAM 3 MEDICAL AYLA KNEE IMAGING COMPLETE ASS 4/MORE VIEWS PROF [facility] 34244 MARNI MARNI ALLG 3 LUIS ALFREDO LUIS ALFREDO IMMNTX X W/PRV ALLGIC XTRCS NJXS URNLS DIP 82499 [facility] 3 VALLEY CECE STICK/TAB INTERNAL LET RGNT MEDI NON-AUTO W/O MICRSCP CULTURE 11680 COMBINED COMBINED BACTERIAL 3 PHYSICIAN PHYSICIAN S LA S LA QUANTTATI VE COLONY COUNT URINE PROF [facility] 49617 MARNI MARNI ALLG 3 LUIS ALFREDO LUIS ALFREDO IMMNTX X W/[place] [address] [facility] BLOOD/URI 3 [facility] C ACID INC INC COLLECTIO 01881 [facility] N VENOUS 3 [facility] BLOOD INC INC VENIPUNCT URE PROF [facility] 94986 MARNI MARNI ALLG 3 LUIS ALFREDO LUIS ALFREDO IMMNTX X W/PRV ALLGIC XTRCS NJXS PROF [facility] 79815 MARNI MARNI ALLG 3 LUIS ALFREDO LUIS ALFREDO IMMNTX X W/PRV ALLGIC XTRCS NJXS PROF [facility] 08016 MARNI MARNI ALLG 3 LUIS ALFREDO LUIS ALFREDO IMMNTX X W/PRV ALLGIC XTRCS NJXS PROF [facility] 36197 MARNI MARNI ALLG 3 LUIS ALFREDO LUIS ALFREDO IMMNTX X W/PRV ALLGIC XTRCS NJXS PROF [facility] 29745 MARNI MARNI ALLG 3 LUIS ALFREDO LUIS ALFREDO IMMNTX X W/PRV ALLGIC XTRCS NJXS PERCUTANE 79909 MARNI MARNI OUS TESTS 3 [facility] AL[facility] AL[facility] W/ALLERGE ALVARADO EXTRACTS SPMTRY 25982 MARNI MARNI W/VC 3 [facility] LU[facility] AL[facility]O EXPIRATOR Y LULU W/WO MXML VOL VNTJ [facility] A4258 M E D M E [...] DNSITY INSRT CSTM MOLD CSTM EA SPMTRY 96493 MARNI MARNI W/VC 3 [facility] LU[facility] ALFR[facility]O EXPIRATOR Y LULU W/WO MXML VOL VNTJ CYSTOURET 57520 [facility] JR HROSCOPY 3 [facility] P URETHROCY 01586 [facility] [facility] STOGRAPHY 3 MEDICAL AYLA VOIDING IMAGING RS&I ASS NJX 06202 [facility] RETROGRAD 3 MEDICAL AYLA E IMAGING URETHROCS ASS TOGRAPY 36877 [facility] TRANSVAGI 3 [facility] NAL INC INC COMPUTER- 84202 [facility] AIDED 3 [facility] DETECTION INC INC SCREENING MAMMOGRAP HY SCREENING G0202 [facility] MAMMOGRAP INC INC HY DURGA INCL CAD WHEN PERFORMD LOCM Q9965 [facility] 100-199 [facility] MG/ML INC INC IODINE CONCENTRA TION PER ML CULTURE 79816 COMBINED COMBINED BACTERIAL 3 PHYSICIAN PHYSICIAN S LA S LA QUANTTATI VE COLONY COUNT URINE INJECTION J0696 [facility] 3 VALLEY CECE CEFTRIAXO INTERNAL NE SODIUM MEDI PER 250 MG URNLS DIP 78792 [facility] 3 VALLEY VALLEY STICK/TAB INTERNAL INTERNAL LET RGNT MEDI MEDI NON-AUTO W/O MICRSCP IM ADM 26738 [facility] PRQ ID 3 VALLEY CECE SUBQ/IM INTERNAL NJXS 1 [facility] 51925 [facility] DISCHARGE 3 [facility] DAY INTERNAL MANAGEMEN MED T 30 MIN/< SBSQ [address] CARE/DAY INTERNAL 25 MED MINUTES SBSQ [address] CARE/DAY INTERNAL 25 MED MINUTES SBSQ [address] CARE/DAY INTERNAL 25 MED MINUTES 8[address] [facility] 3 MEDICAL AYLA TONEAL IMAGING REAL TIME ASS W/IMAGE COMPLETE SBSQ [address] CARE/DAY INTERNAL 25 MED MINUTES FULL FACE A7030 [facility] MASK 3 MEDICAL MEDICAL USED SUPPLY SUPPLY W/POS [employer] FIZZA DEVICE EA INITIAL [address] CARE/DAY INTERNAL 50 MED MINUTES CULTURE 57467 COMBINED COMBINED BACTERIAL 3 PHYSICIAN PHYSICIAN S LEVI Oleary LA QUANTTATI VE COLONY COUNT URINE SCR G0145 PATHOLOGY PATHOLOGY CYTOPATH 3 & & CERV/VAG CYTOLOGY CYTOLOGY SCR LAB LAB AUTO&MNL RSCR PHYS CERV/VAGI G0101 [facility] NAL [facility] SCR; SONIA PELV&CLIN BREAST EXAM URNLS DIP 58200 [facility] STICK/TAB CLINIC OF LET RGNT SONIA NON-AUTO W/O MICRSCP SCREEN Q0091 [facility] PAP 3 [facility] SMEAR; CLINIC OF OBTAIN SONIA PREP &C ONVEY TO LAB URNLS DIP [address] [place] [address] STICK/TAB INTERNAL LET RGNT MEDI NON-AUTO W/O MICRSCP CULTURE 71463 COMBINED COMBINED BACTERIAL 3 PHYSICIAN PHYSICIAN S LEVI Oleary LA QUANTTATI VE COLONY COUNT URINE CULTURE 72896 [facility] BACTERIAL 3 [facility] INC INC QUANTTATI VE COLONY COUNT URINE COLLECTIO 65839 [facility] N VENOUS 3 [facility] BLOOD INC INC VENIPUNCT URE COMPREHEN 51531 [facility] SIVE 3 [facility] METABOLIC INC INC PANEL LIPID 57792 [facility] PANEL 3 [facility] INC INC SUSCEPTIB 64619 [facility] LTY STDY 3 [facility] ANTIMICRB INC INC IAL MICRO/AGA R DILUTJ ALBUMIN 39084 [facility] URINE 3 [facility] MICROALBU INC INC MIN QUANTIATI VE HEMOGLOBI 31522 [facility] N 3 [facility] GLYCOSYLA INC INC ML A1C BLOOD 58507 [facility] COUNT 3 [facility] COMPLETE INC INC AUTO&[place] [address] [facility] THYROID 3 [facility] STIMULATI INC INC NG HORMONE TSH CULTURE 74287 [facility] BCT 3 [facility] ISOL&PRSM INC INC PTV ID ISOLATE EA URINE INITIAL 74156 [facility] INPATIENT 3 PSC CONSULT NEW/ESTAB PT 80 MIN SBSQ 22667 [facility] HOSPITAL 3 PSC CARE/DAY 35 MINUTES SBSQ 01084 INPATIENT [facility] 3 CARE, CARE/DAY PLLC 25 MINUTES SBSQ 30568 INPATIENT [facility] 3 CARE, CARE/DAY PLLC 35 MINUTES SBSQ 54718 INPATIENT [facility] 3 CARE, CARE/DAY PLLC 25 MINUTES NEBULIZER E0570 CRISTIN AMARAL WITH 3 HOME HOME [facility]ICAL R EQUIPME EQUIPME SBSQ 74581 INPATIENT [facility] 3 CARE, CARE/DAY PLLC 35 MINUTES INITIAL 89452 INPATIENT [facility] 3 CARE, CARE/DAY PLLC 50 MINUTES BLD GLU A4253 M E D M E D TEST/REAG 2 SUPPLIES SUPPLIES T STRIPS HOME BLD GLU MON-50 LANCETS A4259 M E D M E D PER BOX 2 SUPPLIES SUPPLIES OF 100 CULTURE 90001 [facility] BCT 2 [facility] ISOL&PRSM INC INC PTV ID ISOLATE EA URINE CULTURE 61011 [facility] BACTERIAL 2 [facility] INC INC QUANTTATI VE COLONY COUNT URINE INJECTION J2405 [facility] 2 [facility] ONDANSETR INC INC ON HCL PER 1 MG BASIC 02216 [facility] METABOLIC 2 [facility] PANEL INC INC CALCIUM TOTAL SUSCEPTIB 90260 [facility] LTY STDY 2 [facility] ANTIMICRB INC [place] IAL [place]CRO/[place] [address] [facility] INFUSION 2 [facility] THERAPY INC INC PROPHYLAX IS/DX EA HOUR THERAPEUT 06350 [facility] IC 2 [facility] INJECTION [place] [address] [facility] INFUSION 2 [facility] THERAPY/P INC INC ROPHYLAXI S /DX 1ST TO 1 HR BLOOD 51504 [facility] COUNT 2 [facility] COMPLETE INC INC AUTO&AUTO DIFRNTL WBC URNLS DIP 34118 [facility] 2 [facility] STICK/TAB INC INC LET REAGENT AUTO MICROSCOP Y RADIOLOGI 11855 [facility] C EXAM 2 [facility] CHEST 2 INC INC VIEWS FRONTAL&L ATERAL NASL A7034 [facility] INTRFCE 2 MEDICAL MEDICAL POS ARWAY SUPPLY SUPPLY PRSS INC. INC. DEVC W/WO HEAD STRAP HEADGEAR A7035 [facility] USED 2 MEDICAL MEDICAL W/POSITIV SUPPLY SUPPLY E AIRWAY INC. INC. PRESSURE DEVICE RADIOLOGI 16163 [facility] [facility] C 2 MEDICAL AYLA EXAMINATI IMAGING ON KNEE ASS 1/2 VIEWS RADEX 19851 [place] [facility] FINGR 2 MEDICAL AYLA MINIMUM 2 IMAGING VIEWS ASS [facility] 16543 [facility] 2 MEDICAL AYLA MINIMUM 2 IMAGING VIEWS ASS BLD GLU A4253 [facility] TEST/REAG 2 CVS CVS T STRIPS PHARMACY PHARMACY HOME BLD LLC, D LLC, D GLU MON-50 NEBULIZER E0570 CRISTIN AMARAL WITH 2 HOME HOME COMPRESSO MEDICAL MEDICAL R EQUIPME EQUIPME EGD 20259 [facility] PALOMO TRANSORAL 2 L SURGIAL CATRACHITO BIOPSY SINGLE/MU ASSOCIATE LTIPLE ENDOSCOPY 65868 CONGREGATION CONGREGATION UPPER 2 PHYS SURG PHYS SURG SMALL CTR CTR INTESTINE W/BIOPSY ANES 99849 [facility] LOWER 2 [place] JAM INTESTINE ANESTHESI A ENDOSCOPY DISTAL DUODENUM RADEX 98849 [facility] ADA SMALL 2 RADIOLOGY INTESTINE ASSOC W/MULTIPL E SERIAL IMAGES COLONOSCO 28017 CONGREGATION CONGREGATION PY 2 PHYS SURG PHYS SURG W/BIOPSY CTR CTR SINGLE/MU LTIPLE SPECIAL 69506 [facility]IP[facility] BENSEMA STAIN 2 TORO & MAR GROUP 1 DUBILIER MICROOR[place] NISMS I&[place] [address] CHIPPS BENSEMA SURG 2 TORO & MAR PATHOLOGY DUBILIER GROSS&SHANTHI ROSCOPIC EXAM ECG 67629 [facility] ROUTINE 2 KAMAR DEIDRA ECG EMERGENCY W/LEAST PHYS 12 LDS I&R ONLY RADIOLOGI 11266 [facility] [place] GARCIA C 2 RADIOLOGY RAY EXAMINATI ON CHEST SINGLE VIEW FRONTAL NEBULIZER E0570 CRISTIN AMARAL WITH 2 HOME HOME COMPRESSO MEDICAL MEDICAL R EQUIPME EQUIPME BLD GLU A4253 [facility] TEST/REAG 2 CVS CVS T STRIPS PHARMACY PHARMACY HOME BLD LLC, D LLC, D GLU MON-50 [place] [address] [facility] AMYLASE 2 [employer] [address] [facility] FOLIC 2 AMERIC AMERIC ACID HOLDING HOLDING SERUM ADMINISTR G0008 [facility] BAZZI ATION OF 2 HEALTHCAR TAR INFLUENZA E CENTER VIRUS VACCINE HEMOGLOBI 10985 [facility] YANIRA N 2 AMERIC AMERIC GLYCOSYLA HOLDING HOLDING ML A1C CYANOCOBA 03121 [facility] PRATEEK 2 AMERIC AMERIC VITAMIN HOLDING HOLDING B-12 [place] [address] [facility] LIPASE 2 AMERIC AMERIC HOLDING HOLDING ACUTE 49929 [facility] HEPATITIS 2 AMERIC AMERIC PANEL HOLDING HOLDING INFLUENZA Q2036 [facility] BAZZ[facility] VACC 2 HEALTHCAR TAR SPLIT E CENTER VIRUS 3 YRS & > IM FLULAVAL NEBULIZER E0570 CRISTIN AMARAL WITH 2 HOME HOME COMPRESSO MEDICAL [place] [address] [facility] THYROID 2 AMERIC AMERIC STIMULATI HOLDING HOLDING NG HORMONE TSH HOME E0607 [facility] BLOOD 2 CVS CVS GLUCOSE PHARMACY PHARMACY MONITOR LLC, D LLC, D LANCETS A4259 [facility] PER BOX 2 CVS CVS OF 100 PHARMACY PHARMACY LLC, D LLC, D HEPATITIS 42256 [facility] ANTIBODY 2 AMERIC AMERIC HAAB IGM HOLDING HOLDING ANTIBODY COMPREHEN 04117 [facility] SIVE 2 AMERIC [...] SUPPLIES HIGH CALIBRATO R SOLUTION/ CHIPS RADEX 29845 [facility] SPINE 2 MOBILE MOBILE CERVICAL DIAGNOSTI DIAGNOSTI 2 OR 3 C SE C SE VIEWS SET-UP Q0092 [facility] PORTABLE 2 MOBILE MOBILE X-RAY DIAGNOSTI DIAGNOSTI EQUIPMENT C SE C SE SBSQ 21010 [facility] 2 PSC CARE/DAY 25 MINUTES TRANS R0070 [facility] PRTBL 2 MOBILE MOBILE X-RAY DIAGNOSTI DIAGNOSTI EQP&PERS C SE C SE OSCAR/NRS OSCAR-TRIP 1 PT SBSQ 27148 [facility] 2 [facility] CARE/DAY 25 MINUTES SBSQ 03374 INPATIENT [facility] 2 CARE, CARE/DAY PLLC [address] [facility] [place] ROUTINE 2 FORTINO LEON ECG CARDIOLOG W/LEAST Y CLINIC 12 LDS I&[place] [address] [facility] [place] PETER HEAD/BRAI 2 RADIOLOGY JULIÁN N W/O CONTRAST MATERIAL SBSQ 50882 [facility] 2 PSC CARE/DAY 25 MINUTES SBSQ 67552 [facility] 2 PSC CARE/DAY 25 MINUTES NEBULIZER E0570 CRISTIN AMARAL WITH 2 HOME HOME [facility] MEDICAL R EQUIPME EQUIPME DUP-SCAN 94901 [facility] [place] BRIZUELA JAM XTR VEINS 2 RADIOLOGY UNILATERA L/LIMITED STUDY ECG 40276 [facility] ROUTINE 2 MOBILE MOBILE ECG DIAGNOSTI DIAGNOSTI W/LEAST C SE C SE 12 LDS TRCG ONLY W/O I&R RADIOLOGI 38058 [facility] C EXAM 2 MOBILE MOBILE CHEST 2 DIAGNOSTI DIAGNOSTI VIEWS C SE C SE FRONTAL&L ATERAL TRANS R0075 [facility] PRTBL 2 MOBILE MOBILE XRAY DIAGNOSTI DIAGNOSTI EQP&PERS C SE C SE OSCAR/NRS OSCAR-TRIP> 1 PT SET-UP Q0092 [facility] PORTABLE 2 MOBILE MOBILE X-RAY DIAGNOSTI DIAGNOSTI EQUIPMENT C SE C SE SBSQ 07948 [facility] 2 PSC CARE/DAY 35 MINUTES DNA 68962 [facility] ANTIBODY 2 [facility] TATITLEK/DO INC INC UBLE STRANDED DNA 51844 [facility] ANTIBODY 2 [facility] SINGLE INC INC STRANDED IM ADM 26715 [facility] PRQ ID 2 VALLEY CECE SUBQ/IM INTERNAL NJXS 1 MEDI VACCINE SKIN TEST 16474 [facility] 2 VALLEY CECE TUBERCULO INTERNAL SIS MEDI INTRADERM AL SEDIMENTA 93626 [facility] TION RATE 2 [facility] RBC INC INC NON-AUTOM ATED COLLECTIO 97603 [facility] N VENOUS 2 [facility] BLOOD INC INC VENIPUNCT URE ANTINUCLE 12851 [facility] AR 2 [facility] ANTIBODIE INC INC S NADINE BASIC 03747 [facility] METABOLIC 2 [facility] PANEL INC INC CALCIUM TOTAL COLLECTIO 98523 [facility] N VENOUS 2 [facility] BLOOD INC INC VENIPUNCT URE COMPREHEN 52991 [facility] SIVE 2 [facility] METABOLIC INC INC PANEL CARCINOEM 27964 [facility] BRYONIC 2 [facility] ANTIGEN INC INC CEA BLOOD 51427 [facility] COUNT 2 [facility] COMPLETE INC INC AUTO&[place] [address] [facility] THYROID 2 [facility] STIMULATI [place] [address] [facility] AMYLASE 2 [place] [address] [facility] LIPASE 2 [facility] INC INC NEBULIZER E0570 C[facility]STIN AMARAL WITH 2 HOME HOME [facility] MEDICAL R EQUIPME EQUIPME INJECTION J2270 [facility] MORPHINE [address] [facility] UP TO 10 MG THERAPEUT 43848 [facility] IC 2 Y Y INJECTION [facility] [place] [address] [facility] INFUSION 2 Y Y THERAPY/P [facility] ROPHYLAXI S /DX 1ST TO 1 HR COLLECTIO 18004 [facility] N VENOUS 2 Y Y BLOOD [facility] VENIPUNCT URE BASIC 22205 [facility] METABOLIC 2 Y Y PANEL [facility] CALCIUM TOTAL INJECTION J2405 [facility] [place] [address] [place] [address] [facility] MAXILLOFA 2 Y Y CIAL [facility] W/CONTRAS T MATERIAL BLOOD 52413 [facility] COUNT 2 Y Y COMPLETE [facility] AUTO&AUTO DIFRNTL WBC LOCM Q9967 [facility] [phone] Y Y MG/ML [facility] IODINE CONCENTRA TION PER ML PREPJ& 43424 MARNI MARNI ALLERGEN 2 [facility] LOBATO IMMUNOTHE RAPY 1/CONTINUING EDUCATION SPECIALIST ANTIGEN PROF SVCS 80012 MARNI MARNI ALLG 2 [facility] LOBATO IMMNTX X W/PRV ALLGIC XTRCS NJXS NEBULIZER E0570 CRISTIN AMARAL WITH 2 HOME HOME [facility] R EQUIPME EQUIPME PROF [facility] 30337 MARNI MARNI ALLG 2 [facility] ALFR[facility] LUIS ALFREDO IMMNTX X W/[place] [address] MARNI MARNI ALLG 2 [facility] ALFR[facility] LUIS [...] BOX 2 SUPPLIES SUPPLIES OF 100 PROF [facility] [address]809 MARNI MARNI ALLG 2 [facility] ALFR[facility] LUIS ALFREDO IMMNTX X W/[place] [address] MARNI MARNI ALLG 2 [facility] ALFR[facility]O LUIS ALFREDO IMMNTX X W/PRV ALLGIC XTRCS NJXS ECG 57393 [facility] CHOWDHUR[facility] JR ROUTINE 2 [facility] W/LEAST P 12 LDS I&R ONLY RADIOLOGI 60256 [facility] C 2 [facility] EXAMINATI IMAGING ON CHEST ASS SINGLE VIEW FRONTAL CREATINE 41137 [facility] KINASE MB 2 [facility] FRACTION INC INC ONLY BLOOD 85288 [facility] COUNT 2 [facility] COMPLETE INC INC AUTO&AUTO DIFRNTL WBC THER 62302 [facility] PROPH/DX 2 [facility] NJX IV INC INC PUSH SINGLE/1S T SBST/DRUG CREATINE 84201 [facility] KINASE 2 [facility] TOTAL INC INC ECG 35340 [facility] ROUTINE 2 [facility] ECG INC INC W/LEAST 12 LDS TRCG ONLY W/O I&[place] [address] [facility] TROPONIN 2 [facility] QUANTITAT INC INC ANNABELLA NATRIURET 49915 [facility] IC 2 [facility] PEPTIDE INC INC COMPREHEN 85474 [facility] SIVE 2 [facility] METABOLIC INC INC PANEL PROF [facility] 81649 MARNI MARNI ALLG 2 [facility] AL[facility]O LUIS ALFREDO IMMNTX X W/PRV ALLGIC XTRCS NJXS PROF [facility] 44760 MARNI MARNI ALLG 2 [facility] ALFREDO LUIS ALFREDO IMMNTX X W/PRV ALLGIC XTRCS NJXS PROF [facility] 21188 MARNI MARNI ALLG 2 [facility] ALFREDO LUIS ALFREDO IMMNTX X W/PRV ALLGIC XTRCS NJXS INJECTION J2405 [facility] 2 [facility] ONDANSETR INC INC ON HCL PER 1 MG 3D 78103 [facility] [facility] RENDERING 2 [facility] IMAGING W/INTERP& ASS POSTPROC DIFF WORK STATION SUSCEPTIB 72387 [facility] LTY STDY 2 [facility] ANTIMICRB INC INC IAL MICRO/AGA R DILUTJ THERAPEUT 78771 [facility] IC 2 [facility] INJECTION INC INC IV PUSH EACH NEW DRUG URNLS DIP 20818 [facility] MENDING 2 [facility] HEARTS STICK/TAB [place] [address] [facility] [facility] ABDOMEN & 2 [facility] PELVIS IMAGING W/O ASS CONTRAST MATERIAL THER 43300 [facility] PROPH/DX 2 [facility] NJX IV INC INC PUSH SINGLE/1S T SBST/DRUG BLOOD 68943 [facility] COUNT 2 [facility] COMPLETE INC INC AUTO&AUTO DIFRNTL WBC COMPREHEN 92116 [facility] SIVE 2 [facility] METABOLIC INC INC PANEL CULTURE 68943 [facility] BACTERIAL 2 [facility] INC INC QUANTTATI VE COLONY COUNT URINE CULTURE 44067 [facility] BCT 2 [facility] ISOL&PRSM INC INC PTV ID ISOLATE EA URINE PROF [facility] 06240 MARNI MARNI ALLG 2 [facility] ALFR[facility]O LUIS ALFREDO IMMNTX X W/PRV ALLGIC XTRCS NJXS NEBULIZER E0570 CRISTIN AMARAL WITH 2 HOME [facility] EQUIPME EQUIPME PROF [facility] 85989 MARNI MARNI ALLG 2 [facility] AL[facility] LUIS ALFREDO IMMNTX X W/PRV ALLGIC XTRCS NJXS PROF [facility] 99263 MARNI MARNI ALLG 2 [facility] ALFR[facility] LUIS ALFREDO IMMNTX X W/PRV ALLGIC XTRCS NJXS PROF [facility] 20762 MARNI MARNI ALLG 2 [facility] ALFR[facility]O LUIS ALFREDO IMMNTX X W/PRV ALLGIC XTRCS NJXS PROF [facility] 55276 MARNI MARNI ALLG 2 [facility] LUIS ALFREDO IMMNTX X W/PRV ALLGIC XTRCS NJXS RADEX [address] [place] [facility] FOOT 2 [facility] COMPLETE IMAGING MINIMUM 3 ASS VIEWS URNLS DIP 46334 [facility] STICK/TAB INC INC LET REAGENT AUTO MICROSCOP Y BLOOD 48524 [facility] COUNT 2 [facility] COMPLETE INC INC AUTO&AUTO DIFRNTL WBC SEDIMENTA 14383 [facility] TIKATI RATE 2 [facility] [place] [address] [facility] BLOOD/URI 2 [facility] C ACID INC INC COMPREHEN 69354 [facility] SIVE 2 [facility] METABOLIC INC INC PANEL PROF [facility] 53238 MARNI MARNI ALLG 2 LUIS ALFREDO LUIS ALFREDO IMMNTX X W/PRV ALLGIC XTRCS NJXS PROF [facility] 26350 MARNI MARNI ALLG 2 LUIS ALFREDO LUIS ALFREDO IMMNTX X W/PRV ALLGIC XTRCS NJXS NEBULIZER E0570 CRISTIN AMARAL WITH 2 HOME HOME COMPRESS[facility] MEDICAL MEDICAL R EQUIPME EQUIPME PROF [facility] 91615 MARNI MARNI ALLG 2 LUIS ALFREDO LUIS ALFREDO IMMNTX X W/PRV ALLGIC XTRCS NJXS PROF [facility] 25311 MARNI MARNI ALLG 2 LUIS ALFREDO LUIS ALFREDO IMMNTX X W/PRV ALLGIC XTRCS NJXS PROF [facility] 69453 MARNI MARNI ALLG 2 LUIS ALFREDO LUIS ALFREDO IMMNTX X W/PRV ALLGIC XTRCS NJXS PROF [facility] 10266 MARNI MARNI ALLG 2 LUIS ALFREDO LUIS ALFREDO IMMNTX X W/PRV ALLGIC XTRCS NJXS PROF [facility] 27062 MARNI MARNI ALLG 2 LUIS ALFREDO LUIS ALFREDO IMMNTX X W/PRV ALLGIC XTRCS NJXS PREPJ& 47955 MARNI MARNI ALLERGEN 2 LUIS ALFREDO LUIS ALFREDO IMMUNOTHE RAPY 1/CONTINUING EDUCATION SPECIALIST ANTIGEN SUSCEPTIB 37809 [facility] LTY STDY 2 [facility] ANTIMICRB INC INC IAL MICRO/AGA R DILUTJ PROF [facility] 84596 MARNI MARNI ALLG 2 LUIS ALFREDO LOBATO IMMNTX X W/PRV ALLGIC XTRCS NJXS LIPID 87887 [facility] PANEL 2 [facility] INC INC COLLECTIO 45562 [facility] N VENOUS 2 [facility] [place] [address] [facility] THYROID 2 [facility] STIMULATI INC INC NG HORMONE TSH BLOOD 93649 [facility] COUNT 2 [facility] COMPLETE INC INC AUTO&AUTO DIFRNTL WBC URNLS DIP 55806 [facility] STICK/TAB INC INC LET REAGENT AUTO MICROSCOP Y COMPREHEN 93018 [facility] SIVE 2 [facility] METABOLIC INC INC PANEL CULTURE 09111 [facility] BCT 2 [facility] ISOL&PRSM INC INC PTV ID ISOLATE EA URINE CULTURE 74980 [facility] BACTERIAL 2 [facility] INC INC QUANTTATI VE COLONY COUNT URINE SPMTRY 30679 MARNI MARNI W/VC 2 LUIS ALFREDO LOBATO EXPIRATOR Y LULU W/WO MXML VOL VNTJ PROF [facility] 62710 MARNI MARNI ALLG 2 LUIS ALFREDO LOBATO IMMNTX X W/PRV ALLGIC XTRCS NJXS PROF [facility] 82252 MARNI MARNI ALLG 2 LUIS ALFREDO LUIS ALFREDO IMMNTX X W/PRV ALLGIC XTRCS NJXS PROF SVCS 02423 MARNI MARNI ALLG 2 LUIS ALFREDO LUIS ALFREDO IMMNTX X W/PRV ALLGIC XTRCS NJXS NEBULIZER E0570 CRISTIN AMARAL WITH 2 HOME HOME [facility] R EQUIPME EQUIPME PRESSURIZ 03157 [facility] ED/NONPRE 2 [facility] SSURIZED INC INC INHALATIO N TREATMENT NONINVASI 95096 [facility] VE 2 [facility] EAR/PULSE INC INC OXIMETRY SINGLE DETER PROF SVCS 03568 MARNI MARNI ALLG 2 LUIS ALFREDO LUIS ALFREDO IMMNTX X W/PRV ALLGIC XTRCS NJXS INJECTION J2405 [facility] ONDANSETR INC INC ON HCL PER 1 MG COLLECTIO 57563 [facility] N VENOUS 2 [facility] BLOOD INC INC VENIPUNCT URE BLOOD 19069 [facility] COUNT 2 [facility] COMPLETE INC INC AUTO&AUTO DIFRNTL WBC GLUC BLD 13209 [facility] GLUC MNTR 2 [facility] DEV INC INC CLEARED FDA SPEC HOME USE COMPREHEN 69821 [facility] SIVE 2 [facility] METABOLIC INC INC [facility] G0378 [facility] OBSERVATI 2 [facility] ON INC INC SERVICE PER HOUR OBSERVATI 87494 [place] BESSON ON CARE 2 [facility] INTERNAL MED ON LICENSE OF [facility] G0378 [facility] OBSERVATI 2 [facility] ON INC INC SERVICE PER HOUR COMPREHEN 94865 [facility] SIVE 2 [facility] METABOLIC INC INC PANEL CULTURE 00204 [facility] BACTERIAL 2 [facility] INC INC QUANTTATI VE COLONY COUNT URINE GLUC BLD 15221 [facility] GLUC MNTR 2 [facility] DEV INC INC CLEARED FDA SPEC HOME USE URNLS DIP 39915 [facility] STICK/TAB INC INC LET REAGENT AUTO MICROSCOP Y URNLS DIP 91158 [facility] 2 [facility] STICK/TAB INTERNAL INTERNAL LET RGNT MED MED NON-AUTO W/O MICRSCP BLOOD 00509 BRANDON [facility] COUNT 2 [facility] COMPLETE INC INC AUTO&AUTO DIFRNTL WBC SEDIMENTA 84842 [facility] TION RATE 2 [facility] RBC INC INC NON-AUTOM ATED COLLECTIO 04819 [facility] N VENOUS 2 [facility] BLOOD INC INC VENIPUNCT URE INJECTION J2405 [facility] 2 [facility] ONDANSETR INC INC ON HCL PER 1 MG INITIAL 79776 [place] MCKEMIE OBSERVATI 2 [facility] ON INTERNAL CARE/DAY MED 30 MINUTES CUL BACT 44878 [facility] XCPT 2 [facility] URINE INC INC BLOOD/STO OL AEROBIC ISOL CUL BACT 14949 [facility] AEROBIC 2 [facility] ADDL INC INC METHS DEFINITIV E EA ISOL SUSCEPTIB 58183 [facility] LTY STDY 2 [facility] ANTIMICRB INC INC IAL MICRO/AGA R DILUTJ THERAPEUT 23773 [facility] IC 2 [facility] PROPHYLAC INC INC TIC/DX INJECTION SUBQ/IM PROF SVCS 71501 MARNI MARNI ALLG 2 LUIS ALFREDO LUIS ALFREDO IMMNTX X W/PRV ALLGIC XTRCS NJXS PROF SVCS 69414 MARNI MARNI ALLG 2 LUIS ALFREDO LUIS ALFREDO IMMNTX X W/PRV ALLGIC XTRCS NJXS 3D 00862 [facility] RENDERING 2 [facility] INC INC W/INTERP& POSTPROC DIFF WORK STATION COLLECTIO 30423 [facility] N VENOUS 2 [facility] BLOOD INC INC VENIPUNCT URE 3D 54813 [facility] RENDERING 2 [facility] W/INTERP INC INC & [place] [address] [facility] UREA 2 [facility] [place] [address] LEONA CORONEL HEAD/BRAI 2 MEDICAL [facility] N W/[place] [address] [facility] HEAD/BRAI 2 [facility] N W/O & INC INC W/CONTRAS T MATERIAL CT ORBIT 34058 LEONA MORRISUTCHER SELLA/POS 2 MED[facility] T IMAGING FOSSA/EAR ASS W/O & W/[place] [address] LEONA HOMER MAXILLOFA 2 MED[facility] CIAL W/[place] [address] [facility] MAXILLOFA 2 [facility] CIAL W/O INC INC & W/CONTRAS T MATERIAL CREATININ 82378 [facility] E BLOOD 2 [facility] [...] SUPPLIES SUPPLIES DEVICE FOR LANCET EACH PROF [facility] 25128 MARNI MARNI ALLG 2 LUIS ALFREDO LUIS ALFREDO IMMNTX X W/PRV ALLGIC XTRCS NJXS PROF SVCS 94355 MARNI MARNI ALLG 2 LUIS ALFREDO LUIS ALFREDO IMMNTX X W/PRV ALLGIC XTRCS NJXS VISUAL 17975 KENZIE ESPINO FIELD XM 2 [facility] LANDRUM UNI/BI W/INTERP EXTENDED EXAM FUNDUS 79568 KENZIE ESPINO PHOTOGRAP 2 JAM JAM HY W/INTERPR ETATION & REPORT PREPJ& 16993 MARNI MARNI ALLERGEN 2 LUIS ALFREDO LUIS ALFREDO IMMUNOTHE RAPY 1/CONTINUING EDUCATION SPECIALIST ANTIGEN PROF SVCS 36484 MARNI MARNI ALLG 2 LUIS ALFREDO LUIS ALFREDO IMMNTX X W/PRV ALLGIC XTRCS NJXS PERCUTANE 00064 MARNI MANN OUS TESTS 2 LUIS ALFREDO BET W/ALLERGE ALVARADO EXTRACTS INTRACUTA 14830 MARNI MARNI NEOUS 2 LUIS ALFREDO LUIS ALFREDO TESTS W/ALLERGE ALVARADO EXTRACTS BRNCDILAT 97474 MARNI MARNI RSPSE 2 LUIS ALFREDO LUIS ALFREDO SPMTRY PRE&POST- BRNCDILAT ADMN DEMO&/POLLY 87829 MARNI MARNI L OF PT 2 LUIS ALFREDO LOBATO UTILIZ AERSL GEN/NEB/I NHLR/IP NEBULIZER E0570 CRISTIN AMARAL WITH 2 HOME HOME COMPRESS[facility] MEDICAL MEDICAL R [facility] [address] [address] DAY INTERNAL MANAGEMEN MED T 30 MIN/< SBSQ [address] CARE/DAY INTERNAL 25 MED MINUTES RADIOLOGI 36095 [facility] C EXAM 2 MEDICAL AYLA CHEST 2 IMAGING VIEWS ASS FRONTAL&L ATERAL INITIAL [address] CARE/DAY INTERNAL 50 MED MINUTES INJECTION J3301 [place] 2 [facility] TRIAMCINO INTERNAL INTERNAL LONE MEDI MEDI ACETONIDE NOS 10 MG INJECTION J0696 [place] MUSTAPHA 2 COOL CECE CEFTRIAXO INTERNAL NE SODIUM MEDI PER 250 MG THERAPEUT 79376 [place] MUSTAPHA IC 2 COOL [facility] PROPHYLAC INTERNAL TIC/DX MEDI INJECTION SUBQ/IM BLOOD 28015 [facility] COUNT 2 [facility] COMPLETE INC INC AUTO&AUTO DIFRNTL WBC THER 68086 [facility] PROPH/DX 2 [facility] NJX IV INC INC PUSH SINGLE/1S T SBST/DRUG ECG 63339 [facility] LEMUS ROUTINE 2 [facility] W/LEAST P 12 LDS I&R ONLY CREATINE 75614 [facility] KINASE MB 2 [facility] FRACTION INC INC ONLY NATRIURET 97197 [facility] IC 2 [facility] [place] [address] [facility] TROPONIN 2 [facility] QUANTITAT INC INC [place] CREATINE 59205 [facility] KINASE 2 [facility] TOTAL INC INC ECG 95882 [facility] ROUTINE 2 [facility] ECG INC INC W/LEAST 12 LDS TRCG ONLY W/O I&R THERAPEUT 72145 [facility] IC 2 [facility] INJECTION INC INC IV PUSH EACH NEW DRUG RADIOLOGI 68714 LEONA Kumar 2 MEDICAL AYLA EXAMINATI IMAGING ON CHEST ASS SINGLE VIEW FRONTAL INJECTION J2405 [facility] 2 [facility] ONDANSETR INC INC ON HCL PER 1 MG COMPREHEN 92521 [facility] SIVE 2 [facility] METABOLIC INC INC PANEL OPHTHALMO 67258 KENZIE ESPINO SCPY 2 [place] JAM EXTENDED RETINAL DRAWING I&R 1ST DETERMINA 39694 KENZIE ESPINO TION 2 [facility] JAM REFRACTIV E STATE NEBULIZER E0570 CRISTIN AMARAL WITH 2 HOME HOME COMPRESSO MEDICAL MEDICAL R EQUIPME EQUIPME NEBULIZER E0570 CRISTIN AMARAL WITH 2 HOME HOME COMPRESSO MEDICAL MEDICAL R EQUIPME EQUIPME ADMN SET A7003 YOUR YOUR SM VOL 2 PHARMACY PHARMACY NONFILTR Impulsiv PNEUMAT NEBULIZR DISPBL PHARM G0333 YOUR YOUR DISPEN 2 PHARMACY PHARMACY FEE INHAL Impulsiv RX; INITIAL 30-DAY SUPPLY ALBUTEROL J7613 YOUR YOUR INHAL 2 PHARMACY PHARMACY NON-CP Impulsiv PROD THRU DME U DOSE 1 MG NONINVASI [address] [place] [address] CECE EAR/PULSE INTERNAL OXIMETRY MEDI SINGLE DETER RADIOLOGI 76510 LEONA Kumar EXAM 2 MED[facility]LA CHEST 2 IMAGING VIEWS ASS FRONTAL&L ATERAL RADIOLOGI 58998 [facility] C EXAM 2 [facility] CHEST 2 INC INC VIEWS FRONTAL&L ATERAL CREATINE 13172 [facility] KINASE 2 [facility] [place] [address] [facility] TROPONIN 2 [facility] QUANTITAT INC INC [place] BLOOD 96895 [facility] COUNT 2 [facility] COMPLETE INC INC AUTO&AUTO DIFRNTL WBC IAADI 83404 [facility] INFLUENZA 2 [facility] B VIRUS INC INC IAADI 63747 [facility] INFFLUENZ 2 [facility] A A VIRUS INC INC CREATINE 15373 [facility] KINASE MB 2 [facility] FRACTION INC INC ONLY PRESSURIZ 51367 [facility] ED/NONPRE 2 [facility] [place]URIZED [place] [address] [facility] INFUSION 2 [facility] THERAPY/P INC INC ROPHYLAXI S /DX 1ST TO 1 HR THERAPEUT 47182 [facility] IC 2 [facility] INJECTION INC INC IV PUSH EACH NEW DRUG COMPREHEN 51365 [facility] SIVE 2 [facility] MEM [...] T STRIPS HOME BLD GLU MON-50 LARYNGOSC 06930 EAR, NOSE SHASHY OPY 1 AND SOBEIDA FLEXIBLE THROAT DIAGNOSTI SPECIAL C SMOKE TOB G0436 EAR, NOSE EAR, NOSE 1 AND AND CESSATION THROAT THROAT CNSL SPECIAL SPECIAL PT; INTRMED 3-10 [place] [address] [facility] INFUSION 1 [facility] THERAPY/P INC INC ROPHYLAXI S /DX 1ST TO 1 [place] [address] BRAND[facility] INFUSION 1 [facility] THERAPY INC INC PROPHYLAX IS/DX EA HOUR ESOPHAGOG 09295 C SOPHIE LYONS ASTRODUOD 1 ELOY MAHER MD [facility] TRANSORAL DIAGNOSTI C GLUC BLD 85462 [facility] GLUC MNTR 1 [facility] DEV INC INC CLEARED FDA SPEC HOME USE LARYNGOSC 28651 EAR, NOSE SHASHY OPY 1 AND SOBEIDA FLEXIBLE [place] [address] COMBINED COMBINED BLOOD/URI 1 PHYSICIAN PHYSICIAN C ACID S LA S LA COLLECTIO 40575 COMBINED COMBINED N VENOUS 1 PHYSICIAN PHYSICIAN BLOOD S LA S LA VENIPUNCT URE BASIC 50571 COMBINED COMBINED METABOLIC 1 PHYSICIAN PHYSICIAN PANEL S LA S LA CALCIUM TOTAL HEMOGLOBI 60774 COMBINED COMBINED N 1 PHYSICIAN PHYSICIAN GLYCOSYLA S LA S LA ML A1C CT SOFT 57993 [facility] TISSUE 1 [facility] NECK W/O INC INC CONTRAST MATERIAL 3D 88790 [facility] RENDERING 1 [facility] INC INC W/INTERP& POSTPROC DIFF WORK STATION CONTINUOU E0601 CRISTIN CRISTIN S 1 HOME HOME POSITIVE MEDICAL MEDICAL AIRWAY EQUIPME EQUIPME PRESSURE DEVICE COMPREHEN 57761 [facility] SIVE 1 [facility] INC INC PANEL COLLECTIO 07322 [facility] N VENOUS 1 [facility] [place] [address] [facility] FERRITIN 1 [facility] [place] [address] [facility] THYROID 1 [facility] STIMULATI INC INC NG HORMONE TSH BLOOD 34681 [facility] COUNT 1 [facility] COMPLETE INC INC AUTO&[place] [address] DERMATOLO NARGIS II SURG 1 GY [facility] GROSS&SHANTHI ROSCOPIC EXAM REPL DEYSI [...] SUPPLIES SUPPLIES DEVICE FOR LANCET EACH THERAPEUT 50231 [facility] IC 1 [facility] INJECTION INC INC IV PUSH EACH NEW DRUG PRESSURIZ 02493 [facility] ED/NONPRE 1 [facility] SSURIZED INC INC INHALATIO N TREATMENT GROUND A0425 [facility] MILEAGE 1 AMBULANCE AMBULANCE PER SERVICE SERVICE STATUTE MILE AMBULANCE A0429 [facility] SERVICE 1 AMBULANCE AMBULANCE BLS SERVICE SERVICE EMERGENCY TRANSPORT BLOOD 98538 [facility] COUNT 1 [facility] COMPLETE INC INC AUTO&AUTO DIFRNTL WBC THER 67856 [facility] PROPH/DX 1 [facility] NJX IV INC INC PUSH SINGLE/1S T SBST/DRUG RADIOLOGI 72004 [place] [facility] C EXAM 1 MEDICAL [facility]YLA CHEST 2 IMAGING VIEWS ASS FRONTAL&L ATERAL COMPREHEN 39543 [facility] SIVE 1 [facility] METABOLIC INC INC PANEL CULTURE 03193 [facility] BACTERIAL 1 [facility] INC INC QUANTTATI VE COLONY COUNT URINE CULTURE 60787 [facility] BCT 1 [facility] ISOL&PRSM INC INC PTV ID ISOLATE EA URINE SUSCEPTIB 86678 [facility] LTY STDY 1 [facility] ANTIMICRB INC INC IAL MICRO/AGA R DILUTJ CHIROPRAC 88172 KAVYA [place] TIC 1 JANET JANET MANIPULAT [place] SPINAL 1-2 REGIONS CONTINUOU E0601 CRISTIN AMARAL S 1 HOME HOME POSITIVE MEDICAL MEDICAL AIRWAY EQUIPME EQUIPME PRESSURE DEVICE NON-INVAS 92095 [facility] HOMER [place] 1 MEDICAL AYLA PHYSIOLOG IMAGING IC STUDY ASS EXTREMITY 3 LEVLS DUP-SCAN 54656 [facility] X[facility] VEINS 1 MEDICAL [facility] COMPLETE IMAGING ASS BILATERAL STUDY DUP-SCAN 50636 [facility] XTR VEINS 1 [facility] INC INC UNILATERA L/LIMITED STUDY DEBRIDEME 07792 PAWSAT PAWSAT NT NAIL 1 MAR MAR ANY METHOD 6/> CHIROPRAC 00206 KAVYA HOFF TIC 1 JANET JANET MANIPULAT [place] SPINAL 1-2 REGIONS CONTINUOU E0601 CRISTIN AMARAL S 1 HOME HOME POSITIVE MEDICAL MEDICAL AIRWAY EQUIPME EQUIPME PRESSURE DEVICE COMPREHEN 21533 [facility] SIVE 1 [facility] METABOLIC INC INC PANEL CULTURE 52491 [facility] BCT 1 [facility] ISOL&PRSM INC INC PTV ID ISOLATE EA URINE URNLS DIP 33765 [facility] 1 [facility] STICK/TAB INC INC LET REAGENT AUTO MICROSCOP Y THERAPEUT 72322 [facility] IC 1 [facility] PROPHYLAC INC INC TIC/DX INJECTION SUBQ/[place] [address] [facility] LIPASE 1 [facility] INC INC BLOOD 00638 [facility] RAB[facility]OON COUNT 1 [facility] COMPLETE INC INC AUTO&[place] [address] [facility] AMYLASE 1 [facility] INC INC SUSCEPTIB 65710 [facility]ONKATI TAYLOR LTY STDY 1 [facility] ANTIMICRB INC INC IAL MICRO/AGA R DILUTJ CULTURE 48168 [facility]ON BACTERIAL 1 [facility] INC INC QUANTTATI VE COLONY COUNT URINE CHIROPRA 04930 KAVYA HOFF TIC 1 JANET JANET MANIPULAT [place] SPINAL 1-2 REGIONS COMPREHEN 02123 [facility] SIVE 1 [facility] METABOLIC INC INC PANEL APPL 42274 [facility] MODALITY 1 [facility] 1/> AREAS INC INC ULTRASOUN D EA 15 MIN E-STIM G0283 [facility] 1/> AREAS 1 [facility] OTH THAN INC INC WND CARE PART TX PLAN 3D 41084 [place] [facility] 1 MEDICAL [facility]YLA IMAGING W/INTERP& ASS POSTPROC DIFF WORK STATION COLLECTIO 80266 [facility] N VENOUS 1 [facility] BLOOD INC INC VENIPUNCT URE LIPID 82098 [facility] PANEL 1 [facility] INC INC THERAPEUT 91826 BR[facility] IC PX 1/> 1 [facility] AREAS INC INC EACH 15 [place] [address] [facility] THYROID 1 [facility] STIMULATI INC INC NG HORMONE TSH HEMOGLOBI 42766 [facility] N 1 [facility] [place] [address] [facility] CORONEL ABDOMEN & 1 MEDICAL AYLA PELVIS IMAGING W/CONTRAS ASS T MATERIAL COMPUTER- 42908 [facility] AIDED 1 [facility] DETECTION INC INC SCREENING MAMMOGRAP HY SCREENING G0202 [facility] 1 [facility] MAMMOGRAP INC INC HY DURGA INCL CAD WHEN PERFORMD E-STIM G0283 [facility] 1/> AREAS 1 [facility] OTH THAN INC INC WND CARE PART TX PLAN APPL 35450 [facility] MODALITY 1 [facility] 1/> AREAS INC INC ULTRASOUN D EA 15 MIN THERAPEUT 11953 [facility] T[facility] IC PX 1/> 1 [facility] AREAS INC INC EACH 15 MIN EXERCISES THERAPEUT 77286 BR[facility] IC PX 1/> 1 [facility] AREAS INC INC EACH 15 MIN EXERCISES APPL 00001 [facility] MODALITY 1 [facility] 1/> AREAS INC INC ULTRASOUN D EA 15 MIN E-STIM G0283 [facility] 1/> AREAS 1 [facility] OTH THAN INC INC WND CARE PART TX PLAN CHIROPRAC 67359 KAVYA HOFF TIC 1 JANET JANET MANIPULAT [place] SPINAL 1-2 REGIONS E-STIM G0283 [facility] 1/> AREAS 1 [facility] OTH THAN INC INC WND CARE PART TX PLAN APPL 02249 [facility] MODALITY 1 [facility] 1/> AREAS INC INC ULTRASOUN D EA 15 MIN THERAPEUT 53167 [facility] IC PX 1/> 1 [facility] AREAS INC INC EACH 15 MIN EXERCISES PHYSICAL 13767 [facility] THERAPY 1 [facility] EVALUATIO INC INC N CHIROPRAC 59533 [place] TIC 1 JANET JANET MANIPULAT [place] SPINAL 1-2 REGIONS CONTINU E0601 CRISTIN AMARAL S 1 HOME HOME POSITIVE MEDICAL MEDICAL AIRWAY EQUIPME EQUIPME PRESSURE DEVICE RADEX 23880 LE[facility] CORONEL UPPER GI 1 MEDICAL AYLA W/WO IMAGING GLUCAGON/ ASS DELAY IMAGES W/KUB CHIROPRA 50265 [place] TIC 1 JANET JANET MANIPULAT [place] SPINAL 1-2 REGIONS CHIROPRA 92761 [place] TIC 1 JANET JANET MANIPULAT [...] T STRIPS HOME BLD GLU MON-50 CHIROPRA 67536 [place] TIC 1 JANET JANET MANIPULAT [place] SPINAL 1-2 REGIONS CHIROPRA 28456 [place] TIC 1 JANET JANET MANIPULAT [place] SPINAL 1-2 REGIONS CHIROPRA 78524 [place] TIC 1 JANET JANET MANIPULAT [place] SPINAL 1-2 REGIONS CHIROPRA 13799 [place] TIC 1 JANET JANET MANIPULAT [place] SPINAL 1-2 REGIONS CHIROPRA 00555 [place] TIC 1 JANET JANET MANIPULAT [...] E AIRWAY EQUIPME EQUIPME PRESSURE DEVICE CHIROPRAC 01806 KAVYA DONGDING TIC 1 JANET JANET MANIPULAT [place] SPINAL 1-2 REGIONS CHIROPRAC 41213 KAVYA DONGDING TIC 1 JANET JANET MANIPULAT ANNABELLA [place] SPINAL 1-2 REGIONS POLYSOM 25321 [facility] 6/>YRS 1 DEIDRA DEIDRA SLEEP W/CPAP 4/> ADDL JENNIE ATTND POLYSOM 60941 [facility] 6/>YRS 1 DEIDRA DEIDRA SLEEP 4/> ADDL JENNIE ATTND POLYSOM 12269 [facility] 6/>YRS 1 [facility] SLEEP 4/> INC INC ADDL JENNIE ATTND MRI 85726 [facility] CANAL IMAGING LUMBAR ASS W/O CONTRAST MATERIAL 3D 44699 [facility] [facility] 1 [facility] W/INTERP IMAGING & ASS POSTPROCE SS SUPERVISI ON SEDIMENTA 97143 [facility] TION RATE 1 [facility] RBC INC INC NON-AUTOM ATED BLOOD 69524 [facility] COUNT 1 [facility] COMPLETE INC INC AUTO&[place] [address] [facility] THYROID 1 [facility] STIMULATI INC INC NG HORMONE TSH CREATINE 53539 [facility] KINASE 1 [facility] TOTAL INC INC COLLECTIO 14840 [facility] N VENOUS 1 [facility] BLOOD INC INC VENIPUNCT URE COMPREHEN 85492 [facility] SIVE 1 [facility] METABOLIC INC INC PANEL CULTURE 03611 [facility] BACTERIAL 1 [facility] INC INC QUANTTATI VE COLONY COUNT URINE AMBULANCE A0429 [facility] SERVICE 1 AMBULANCE AMBULANCE BLS SERVICE SERVICE EMERGENCY TRANSPORT GROUND A0425 [facility] PER SERVICE SERVICE STATUTE MILE THERAPEUT 71216 [facility] IC 1 [facility] INJECTION INC INC IV PUSH EACH NEW DRUG URNLS DIP 52250 [facility] 1 [facility] STICK/TAB INC INC LET REAGENT AUTO MICROSCOP Y RADEX 15358 [facility] SPINE 1 [facility] LUMBOSACR INC INC AL 2/3 VIEWS RADIOLOGI 11127 [facility] C EXAM 1 [facility] CHEST 2 IMAGING VIEWS ASS FRONTAL&L ATERAL THER 26672 [facility] PROPH/DX 1 [facility] NJX IV INC INC PUSH SINGLE/1S T SBST/DRUG BLOOD 96886 [facility] COUNT 1 [facility] COMPLETE INC INC AUTO&AUTO DIFRNTL WBC COMPREHEN 36405 [facility] SIVE 1 [facility] METABOLIC INC INC PANEL CYANOCOBA 19264 [facility] PRATEEK 1 [facility] VITAMIN INC INC B-12 HEMOGLOBI 33469 [facility] N 1 [facility] GLYCOSYLA INC INC ML A1C COLLECTIO 68151 [facility] N VENOUS 1 [facility] BLOOD INC INC VENIPUNCT URE GROUND A0425 [facility] 1 AMBULANCE AMBULANCE PER SERVICE SERVICE STATUTE MILE RADIOLOGI 49851 [facility] CORONEL C 1 [facility] EXAMINATI IMAGING ON CHEST ASS SINGLE VIEW FRONTAL ECG 37730 [facility] LEMUS ROUTINE 1 [facility] W/LEAST P 12 LDS I&R ONLY AMB A0427 [facility] SERVICE 1 AMBULANCE AMBULANCE ALS SERVICE SERVICE EMERGENCY TRANSPORT LEVEL 1 TECHNETIU A9502 [facility] [place] TC-99M 1 [facility] TETROFOSM INC INC IN DX PER STUDY DOSE CV STRS 66216 [facility] TST 1 [facility] XERS&/OR INC INC RX CONT ECG TRCG ONLY MYOCARDIA 93384 [facility] L SPECT 1 [facility] MULTIPLE INC INC STUDIES 3D 92592 [place] [facility] 1 [facility] IMAGING W/INTERP& [place] [address] [facility] HEAD/BRAI 1 [facility] N W/O & INC INC W/CONTRAS T MATERIAL CT SOFT 15234 [facility] TISSUE 1 MEDICAL MEDICAL NECK IMAGING IMAGING W/[place] [address] [place] [facility] HEAD/BRAI 1 [facility] N IMAGING W/CONTRAS ASS T MATERIAL 3D 88811 [facility] RENDERING 1 [facility] W/INTERP INC INC & [place] [address] [facility] UREA 1 [facility] NITROGEN INC INC QUANTITAT ANNABELLA CREATININ 09510 [facility] E BLOOD 1 [facility] INC INC COLLECTIO 30351 [facility] N VENOUS 1 [facility] BLOOD INC INC VENIPUNCT URE COLONOSCO 36913 C SOPHIE SHER FLX DX 1 ELOY GAMBOA W/FLORENCIO S[place] [address] [facility] INFUSION 1 [facility] THERAPY/P INC INC ROPHYLAXI S /DX 1ST [place] 1 [place] [address] [facility] 1 [facility] THERAPY INC INC PROPHYLAX IS/DX EA HOUR GLUC BLD 76008 [facility] GLUC MNTR 1 [facility] DEV INC INC CLEARED FDA SPEC HOME USE ANES 60097 [facility] 1 ANESTH INTESTINE OF THE BLUE ENDOSCOPY DISTAL [facility] A4258 M E D M E [...] BOX 1 SUPPLIES SUPPLIES OF 100 RADIOLOGI 18364 [facility] Kumar EXAM 1 [facility] CHEST 2 INC INC VIEWS FRONTAL&L ATERAL OPHTH 82654 ELLEN HALLMAN [facility] 1 VISION XM&EVAL COMPRHNSV ESTAB PT 1/> BLOOD 83140 [facility] COUNT 1 [facility] COMPLETE INC INC AUTO&AUTO DIFRNTL WBC COLLECTIO 14280 [facility] N VENOUS 1 [facility] BLOOD INC INC VENIPUNCT URE BASIC 71360 [facility] METABOLIC 1 [facility] PANEL INC INC CALCIUM TOTAL RADIOLOGI 35297 [facility] EXAM 1 MEDICAL AYLA CHEST 2 IMAGING VIEWS ASS FRONTAL&L ATERAL BLD GLU A4253 CCS CCS TEST/REAG 0 MEDICAL MEDICAL T STRIPS [facility] 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 LANCETS A4259 CCS CCS PER BOX 0 MEDICAL MEDICAL OF 100 NORMAL A4256 CCS CCS LOW AND 0 MEDICAL MEDICAL HIGH CALIBRATO R SOLUTION/ CHIPS REPL DEYSI A4233 CCS CCS ALKALINE 0 MEDICAL MEDICAL NOT J CELL OSCAR BG MON OWND PT LANCETS A4259 SECURE SECURE PER BOX 0 CARE CARE OF 100 MEDICAL MEDICAL SENTINEL BUTTE-PO A4258 SECURE SECURE WERED 0 CARE CARE DEVICE MEDICAL MEDICAL FOR LANCET EACH BLD GLU A4253 SECURE SECURE TEST/REAG 0 CARE CARE T STRIPS MEDICAL MEDICAL HOME BLD GLU SUN-50 NORMAL A4256 SECURE SECURE LOW AND 0 CARE CARE HIGH MEDICAL MEDICAL CALIBRATO R SOLUTION/ CHIPS BLD GLU E2100 SECURE SECURE MONITOR 0 CARE CARE W/[facility] ML VOICE SYNTHESIZ ER RADIOLOGI 74753 [facility] C 0 [facility] EXAMINATI INC INC ON KNEE 3 VIEWS BASIC 75143 [facility] METABOLIC 0 [facility] [address] [facility] INFUSION 0 [facility] HYDRATION INC INC INITIAL 31 MIN-1 HOUR BLOOD 82877 [facility] COUNT 0 [facility] COMPLETE INC INC AUTO&AUTO DIFRNTL WBC RADIOLOGI 51666 [facility] C 0 [facility] EXAMINATI INC INC ON CHEST SINGLE VIEW FRONTAL HEMOGLOBI 08326 [facility] N 0 [facility] GLYCOSYLA INC INC ML A1C URNLS DIP 16976 [facility] 0 [facility] STICK/TAB INC INC LET REAGENT AUTO MICROSCOP Y CULTURE 01432 [facility] BACTERIAL 0 [facility] MEM [...] SCR LAB LAB AUTO&MNL RSCR PHYS IADNA 97897 PATHOLOGY PATHOLOGY PAPILLOMA 9 & & VIRUS CYTOLOGY CYTOLOGY HUMAN LAB LAB AMPLIFIED PROBE TQ ALBUTEROL J7620 [facility]5 9 PH[facility]ACY PHARMACY MG & 3938 3938 IPRATROPI UM BROM TO 0.5 MG RADIOLOGI 58837 José CACERES EXAM 9 MEDICAL FREDO CHEST 2 IMAGING VIEWS ASSOCIATE FRONTAL&L S ATERAL PHARM G0333 [facility] DISPEN 9 PHARMACY PHARMACY FEE INHAL 0704 3934 RX; INITIAL 30-DAY SUPPLY PRESSURIZ 83254 [facility] PRISCILL[facility], ED/NONPRE 9 [facility] A SSURIZED INTERNAL INHALATIO MED N TREATMENT PRESSURIZ 92960 [facility] PR[facility], ED/NONPRE 9 [facility] A SSURIZED INTERNAL INHALATIO MED N TREATMENT O2 CONC 1 E1390 EVELYN RIVAS DEL PORT 9 HOME HOME 85%/>02 MEDICAL MEDICAL CONC AT EQUIPMENT EQUIPMENT PRSC FLW RATE PRTBLE E0431 EVELYN RIVAS GASEOUS 9 HOME HOME O2 SYS MEDICAL MEDICAL RENT; EQUIPMENT EQUIPMENT FLWMTR HUMIDFR&M ASK CULTURE 63925 [facility] BACTERIAL 9 [facility] INC INC QUANTTATI VE COLONY COUNT URINE URNLS DIP 69770 [facility] 9 [facility] STICK/TAB INC INC LET REAGENT AUTO MICROSCOP Y IAADI 31936 [facility] INFFLUENZ 9 [facility] A A VIRUS INC INC IAADI 40204 [facility] INFLUENZA 9 [facility] B VIRUS INC INC THERAPEUT 65845 EVELYN ESCOBAR, IC PX 1/> 9 FAMILY LILIYA C AREAS CHIROPRAC EACH 15 TIC MIN EXERCISES APPL 93710 EVELYN ESCOBAR, MODALITY 9 FAMILY LILIYA C 1/> AREAS CHIROPRAC ELEC TIC STIMJ EA 15 MIN APPL 70745 [place] ESCOBAR, MODALITY 9 FAMILY LILIYA C 1/> AREAS CHIROPRAC TRACTION TIC MECHANICA L CHIROPRAC 52023 CYNPAULIEANA ESCOBAR, TIC 9 FAMILY LILIYA C MANIPULAT CHIROPRAC ANNABELLA TX TIC SPINAL 3-4 REGIONS CHIROPRAC 85746 [place] ESCOBAR, TIC 9 FAMILY LILIYA C MANIPULAT CHIROPRAC ANNABELLA TX TIC SPINAL 3-4 REGIONS APPL 50009 CYNMIGUEL ESCOBAR, MODALITY 9 FAMILY LILIYA C 1/> AREAS CHIROPRAC TRACTION TIC MECHANICA L APPL 17596 [place] ESCOBAR, MODALITY 9 FAMILY LILIYA C 1/> AREAS CHIROPRAC ELEC TIC STIMJ EA 15 MIN THERAPEUT 45175 [place] ESCOBAR, IC PX 1/> 9 FAMILY LILIYA C AREAS CHIROPRAC EACH 15 TIC MIN EXERCISES THERAPEUT 79084 [place] ESCOBAR, IC PX 1/> 9 FAMILY LILIYA C AREAS CHIROPRAC EACH 15 TIC MIN EXERCISES APPL 58359 [place] ESCOBAR, MODALITY 9 FAMILY LILIYA C 1/> AREAS CHIROPRAC ELEC TIC STIMJ EA 15 MIN APPL 08375 [place] ESCOBAR, MODALITY 9 FAMILY LILIYA C 1/> AREAS CHIROPRAC TRACTION TIC MECHANICA L CHIROPRAC 19006 [place] ESCOBAR, TIC 9 FAMILY LILIYA C MANIPULAT CHIROPRAC ANNABELLA TX TIC SPINAL 3-4 REGIONS CHIROPRAC 70742 [place] ESCOBAR, TIC 9 FAMILY LILIYA C MANIPULAT CHIROPRAC ANNABELLA TX TIC SPINAL 3-4 REGIONS SELF-CARE 58689 EVELYN ESCOBAR, /HOME 9 FAMILY LILIYA C MGMT CHIROPRAC TRAINING TIC EACH 15 MINUTES APPL 43450 [place] ESCOBAR, MODALITY 9 FAMILY LILYIA C 1/> AREAS CHIROPRAC TRACTION TIC MECHANICA L APPL 11573 [place] ESCOBAR, MODALITY 9 FAMILY LILIYA C 1/> AREAS CHIROPRAC ELEC TIC STIMJ EA 15 MIN THERAPEUT 70546 CYNMIGUEL ESCOBAR, IC PX 1/> 9 FAMILY LILIYA C AREAS CHIROPRAC EACH 15 TIC MIN EXERCISES INJ J0702 LEANA DUEÑAS, BETAMETHA 9 CHELSY W CHELSY W SONE ACETATE & PHOSPHATE 3 MG INITIAL 48371 [facility] 9 Y OF CHERYL CARE/DAY [place] A 70 INTERNAL MINUTES MEDICINE ECG 93658 BUNNY JOHNSON, ROUTINE 9 MEDICAL SIMBA C ECG SERV W/LEAST FOUNDATIO 12 LDS I&R ONLY RADIOLOGI 73644 BUNNY SAENZ C EXAM 9 MEDICAL FORTINO G CHEST 2 SERV VIEWS FOUNDATIO FRONTAL&L ATERAL O2 CONC 1 E1390 EVELYN RIVAS DEL PORT 9 HOME HOME 85%/>02 MEDICAL MEDICAL CONC AT EQUIPMENT EQUIPMENT PRSC FLW RATE PRTBLE E0431 CYNMIGUEL JONANA GASEOUS 9 HOME HOME O2 SYS MEDICAL MEDICAL RENT; EQUIPMENT EQUIPMENT FLWMTR HUMIDFR&M ASK OBSERVATI 86524 [facility] BESSON, ON CARE 9 COOL LAURIE A DISCHARGE INTERNAL MED MANAGEMEN T INITIAL 64308 [facility] BESSON, OBSERVATI 9 COOL LAURIE A ON INTERNAL CARE/DAY MED 30 MINUTES CULTURE 70033 [facility] BACTERIAL 9 [facility] INC INC QUANTTATI VE COLONY COUNT URINE COMPREHEN 88741 [facility] SIVE 9 [facility] METABOLIC INC INC PANEL URNLS DIP 05238 [facility] 9 [facility] STICK/TAB INC INC LET REAGENT AUTO MICROSCOP Y BLOOD 70368 [facility] COUNT 9 [facility] COMPLETE INC INC AUTO&AUTO DIFRNTL WBC ECG 02089 CARDIOLOG SUMMERS, ROUTINE 9 Y KHURRAM A ECG ASSOCIATE W/LEAST S OF 12 [facility] I&R ONLY SBSQ 82716 [facility] 9 CARE/DAY 15 MINUTES SBSQ 92109 [facility] 9 CARE/DAY 15 MINUTES O2 CONC 1 E1390 EVELYN RIVAS DEL PORT 9 HOME HOME 85%/>02 MEDICAL MEDICAL CONC AT EQUIPMENT EQUIPMENT PRSC FLW RATE PRTBLE E0431 EVELYN RIVAS GASEOUS 9 HOME HOME O2 SYS MEDICAL MEDICAL RENT; EQUIPMENT EQUIPMENT FLWMTR HUMIDFR&M ASK SBSQ 00216 [facility] 9 CARE/DAY 15 MINUTES SBSQ 32176 [facility] 9 CARE/DAY 15 MINUTES SBSQ 81036 [facility] 9 CARE/DAY 15 MINUTES ECG 94803 CARDIOLOG [place] [facility] ROUTINE 9 Y , D L ECG ASSOCIATE W/LEAST S OF 12 [facility] I&R ONLY INITIAL 50894 [facility] 9 CARE/DAY 30 MINUTES RADIOLOGI 11716 José CACERES 9 MEDICAL FREDO EXAMINATI IMAGING ON CHEST ASSOCIATE SINGLE S VIEW FRONTAL AMB A0422 JULEE LADD OXYGEN&O2 9 AMBULANCE AMBULANCE SUPPLIES SERVICE SERVICE LIFE SUSTAININ G SITUATION AMBULANCE A0429 [facility] SERVICE 9 AMBULANCE AMBULANCE BLS SERVICE SERVICE EMERGENCY TRANSPORT GROUND A0425 [facility] AM[facility]ULANCE PER SERVICE SERVICE STATUTE MILE BASIC 24935 [facility] METABOLIC 9 [facility] [address] [facility] INFUSION 9 [facility] THERAPY/P INC INC ROPHYLAXI S /DX 1ST TO 1 HR BLOOD 73930 [facility] COUNT 9 [facility] COMPLETE INC INC AUTO&AUTO DIFRNTL WBC KETONE 65183 [facility] BODIES 9 [facility] SERUM INC INC QUALITATI VE GLUC BLD 28766 [facility] GLUC MNTR 9 [facility] DEV INC INC CLEARED FDA SPEC HOME USE THERAPEUT 54891 [facility] IC 9 [facility] PROPHYLAC INC INC TIC/DX INJECTION SUBQ/IM O2 CONC 1 E1390 EVELYN JONANA DEL PORT 9 HOME HOME 85%/>02 MEDICAL MEDICAL CONC AT EQUIPMENT EQUIPMENT PRSC FLW RATE PRTBLE E0431 EVELYN RIVAS GASEOUS 9 HOME HOME O2 SYS MEDICAL MEDICAL RENT; EQUIPMENT EQU[facility]MENT [facility] G0378 [facility] OBSERVATI 9 [facility] ON INC INC SERVICE PER HOUR AMB A0427 JULEE [facility] SERVICE 9 AMBULANCE AMBULANCE ALS SERVICE SERVICE EMERGENCY TRANSPORT LEVEL 1 AMB A0422 JULEE LADD OXYGEN&O2 9 AMBULANCE AMBULANCE SUPPLIES SERVICE [place] [address] [facility] INFUSION 9 [facility] THERAPY/P INC INC ROPHYLAXI S /DX 1ST TO 1 HR GROUND A0425 [facility] AMBULANCE AMBULANCE PER SERVICE SERVICE STATUTE MILE INITIAL 58744 CHUY DIAZ 9 COOL LAURIE Blum ON INTERNAL CARE/DAY MED 30 MINUTES GLUC BLD 63169 [facility] GLUC MNTR 9 [facility] DEV INC [place] [address] [facility] TROPONIN 9 [facility] QUANTITAT INC INC ANNABELLA ECG 26859 [facility] ROUTINE 9 [facility] ECG INC INC W/LEAST 12 LDS TRCG ONLY W/O I&R CREATINE 13543 [facility] KINASE 9 [facility] TOTAL INC INC BLOOD 69120 [facility] COUNT 9 [facility] COMPLETE INC INC AUTO&AUTO DIFRNTL WBC RADIOLOGI 37985 [facility] C 9 [facility] EXAMINATI INC INC ON CHEST SINGLE VIEW FRONTAL ECG 68808 BRANDON MCKEMIE ROUTINE 9 [facility] W/LEAST PROF SERV 12 LDS I&R ONLY CREATINE 60835 [facility] KINASE MB 9 [facility] FRACTION INC INC ONLY BASIC 37160 [facility] METABOLIC 9 [facility] PANEL INC INC CALCIUM TOTAL COMPREHEN 43320 [facility] SIVE 9 [facility] METABOLIC INC INC PANEL LOCM Q9967 [facility] 300-399 9 [facility] MG/ML INC INC IODINE CONCENTRA TION PER ML 3D 14957 [facility] RENDERING 9 [facility] INC INC W/INTERP& POSTPROC DIFF WORK STATION RADEX 48586 [facility] ESOPHAGUS 9 [facility] [place] SOFT 22413 [facility] TISSUE 9 [facility] NECK INC INC W/CONTRAS T MATERIAL CREATININ 35593 [facility] E BLOOD 9 [facility] INC INC CALCIUM 32200 [facility] TOTAL 9 [place] [address] [facility] THYROID 9 [facility] STIMULATI [place] [address] [facility] UREA 9 [facility] NITROGEN INC INC QUANTITAT ANNABELLA COLLECTIO 74671 [facility] N VENOUS 9 [facility] [place] [address] [facility] THYROXINE 9 [facility] TOTAL INC INC NORMAL A4256 DIABETES DIABETES LOW AND 9 CARE CLUB C[facility] CALIBRATO R SOLUTION/ CHIPS PRTBLE E0431 EVELYN RIVAS GASEOUS 9 HOME HOME O2 SYS MEDICAL MEDICAL RENT; EQUIPMENT EQUIPMENT FLWMTR HUMIDFR&M ASK O2 CONC 1 E1390 EVELYN RIVAS DEL PORT 9 HOME HOME 85%/>02 MEDICAL MEDICAL CONC AT EQUIPMENT EQUIPMENT PRSC FLW RATE LIPID 75689 [facility] PANEL 9 [facility] INC INC COLLECTIO 91753 [facility] N VENOUS 9 [facility] BLOOD INC INC VENIPUNCT URE COMPREHEN 91654 [facility] SIVE 9 [facility] METABOLIC INC INC PANEL RADIOLOGI 94525 [facility] C 9 [facility] EXAMINATI INC INC ON KNEE 3 VIEWS RADEX 25922 [facility] ANKLE 9 [facility] COMPLETE INC INC MINIMUM 3 VIEWS O2 CONC 1 E1390 EVELYN RIVAS DEL PORT 9 HOME HOME 85%/>02 MEDICAL MEDICAL CONC AT EQUIPMENT EQUIPMENT PRSC FLW RATE PRTBLE E0431 EVELYN RIVAS GASEOUS 9 HOME HOME O2 SYS MEDICAL MEDICAL RENT; EQUIPMENT EQUIPMENT FLWMTR HUMIDFR&[place] [address] PATHOLOGY PATHOLOGY SURG 9 & & PATHOLOGY CYTOLOGY CYTOLOGY LAB LAB GROSS&[place] [address] [facility] INFUSION 9 [facility] THERAPY INC INC PROPHY[place]X [place] [address] [facility] INFUSION 9 [facility] THERAPY/P INC INC ROPHYLAXI S /DX 1ST TO 1 HR ANES 35899 [facility] 9 ANESTH KANNAN Ortega [facility] ENDOSCOPY DISTAL DUODENUM GLUC BLD 91861 [facility] GLUC MNTR 9 [facility] DEV INC INC CLEARED FDA SPEC HOME USE COLONOSCO 13824 BUNNY LORD, PY 9 MEDICAL [place] W/BIOPSY SERV SINGLE/MU FOUNDATIO LTIPLE THER 51383 [facility] PROPH/DX 9 [facility] NJX IV INC INC PUSH SINGLE/1S T SBST/DRUG BLOOD 70276 [facility] COUNT 9 [facility] COMPLETE INC INC AUTO&[place] [address] [facility] AMYLASE 9 [facility] INC INC CREATINE 69223 [facility] KINASE MB 9 [facility] FRACTION INC INC ONLY ECG 76335 BRANDON CHOWDHURY ROUTINE 9 [facility] W/LEAST PROF SERV 12 [place] [address] [facility] TROPONIN 9 [facility] QUANTITAT INC INC ANNABELLA CREATINE 31337 [facility] KINASE 9 [facility] [place] [address] [facility] LIPASE 9 [facility] INC INC ECG 82907 [facility] ROUTINE 9 [facility] ECG INC INC W/LEAST 12 LDS TRCG ONLY W/O I&R URNLS DIP 52627 [facility] 9 [facility] STICK/TAB INC INC LET REAGENT AUTO MICROSCOP Y THERAPEUT 95380 [facility] IC 9 [facility] INJECTION INC INC IV PUSH EACH NEW DRUG INJECTION J2405 [facility] 9 [facility] ONDANSETR INC INC ON HCL PER 1 MG COMPREHEN 47016 [facility] SIVE 9 [facility] METABOLIC INC INC PANEL AMB A0427 JULEE LADD SERVICE 9 AMBULANCE AMBULANCE ALS SERVICE SERVICE EMERGENCY TRANSPORT LEVEL 1 GROUND A0425 JULEE LADD MILEAGE 9 AMBULANCE AMBULANCE PER SERVICE SERVICE STATUTE MILE AMB A0422 JULEE LADD OXYGEN&O2 9 AMBULANCE AMBULANCE SUPPLIES SERVICE SERVICE LIFE SUSTAININ G SITUATION SUSCEPTIB 24121 [facility] LTY STDY 9 [facility] ANTIMICRB INC INC IAL MICRO/AGA R DILUTJ THERAPEUT 60357 [facility] IC 9 [facility] INJECTION INC [place] [address] [facility] INFUSION 9 [facility] THERAPY/P INC INC ROPHYLAXI S /DX 1ST TO 1 HR CULTURE 02836 [facility] BACTERIAL 9 [facility] INC INC QUANTTATI VE COLONY COUNT URINE URNLS DIP 76067 [facility] 9 [facility] STICK/TAB INC INC LET REAGENT AUTO MICROSCOP Y KETONE 37662 [facility] BODIES 9 [facility] SERUM INC INC QUALITATI VE BLOOD 44103 BR[facility] T[facility]LOR COUNT 9 [facility] COMPLETE INC INC AUTO&AUTO DIFRNTL WBC COMPREHEN 08484 [facility] SIVE 9 [facility] METABOLIC INC INC PANEL CULTURE 86046 [facility] BCT 9 [facility] ISOL&PRSM INC INC PTV ID ISOLATE EA URINE PRTBLE E0431 EVELYN RIVAS GASEOUS 9 HOME HOME O2 SYS MEDICAL MEDICAL RENT; EQUIPMENT EQUIPMENT FLWMTR HUMIDFR&M ASK O2 CONC 1 E1390 EVELYN RIVAS DEL PORT 9 HOME HOME 85%/>02 MEDICAL MEDICAL CONC AT EQUIPMENT EQUIPMENT PRSC FLW RATE THERAPEUT 19561 [facility] IC 9 [facility] PROPHYLAC INC INC TIC/DX INJECTION SUBQ/IM GLUC BLD 56452 [facility] T[facility] GLUC MNTR 9 [facility] DEV INC INC CLEARED FDA SPEC HOME USE BLD GLU A4253 DIABETES DIABETES TEST/REAG 9 CARE CLUB CARE CLUB [facility] [employer] HOME BLD GLU MON-50 LANCETS A4259 DIABETES DIABETES PER BOX 9 CARE CLUB CARE CLUB OF [facility] PRTBLE E0431 EVELYN RIVAS GASEOUS 9 [...] CARE CLUB OF 100 [facility] GASTRIC 53268 [facility] 8 MEDICAL FREDO IMAGING IMAGING STUDY ASSOCIATE [...] LLC LLC HOME BLD GLU MON-50 BASIC 30977 [facility] METABOLIC 8 [facility] [place] [address] [facility] THER 8 [facility] PROPH/DX INC INC 1ST >1 HR GLUC BLD 38489 BRANDON RABAGOON GLUC MNTR 8 [facility] DEV INC INC CLEARED FDA SPEC HOME USE URNLS DIP 05363 [facility] 8 [facility] STICK/TAB INC INC LET REAGENT AUTO MICROSCOP Y IV NFUS 22885 [facility] THER 8 [facility] PROPH/DX INC INC EA HR BLOOD 95312 BRANDON BRANDON COUNT 8 [facility] COMPLETE INC INC AUTO&AUTO DIFRNTL WBC O2 CONC 1 E1390 EVELYN RIVAS DEL PORT 8 HOME HOME 85%/>02 MEDICAL MEDICAL CONC AT EQUIPMENT EQUIPMENT PRSC FLW RATE PRTBLE E0431 EVELYN RIVAS GASEOUS 8 HOME HOME O2 SYS MEDICAL MEDICAL RENT; EQUIPMENT EQUIPMENT FLWMTR HUMIDFR&M ASK 3D 08042 [place] UMM MÉNDEZ 8 MEDICAL RACHEL P W/INTERP IMAGING & [place] [address] [facility] HEAD/BRAI 8 [facility] N W/O INC INC CONTRAST MATERIAL ANES 49795 [facility], UPPER GI 8 ANESTH ERLIN L ENDOSCOPY OF THE PROXIMAL [place] TO DUODENUM GLUC BLD 16449 BRANDON [facility] GLUC MNTR 8 [facility] DEV INC INC CLEARED FDA SPEC HOME USE CUL 33513 [facility] PRSMPTV 8 [facility] PTHGNC INC INC ORGANISMS SCR DNS CHART SPECIAL 27590 PATHOLOGY PATHOLOGY STAIN 8 & & GROUP 1 CYTOLOGY CYTOLOGY MICROORGA LAB LAB NIS[place] [address] [facility] THER 8 [facility] PROPH/DX INC INC 1ST >1 HR EGD 06085 [facility] TRANSORAL 8 [facility] BIOPSY INC INC SINGLE/[place] [address] PATHOLOGY PATHOLOGY SURG 8 & & PATHOLOGY [...] RENT; EQUIPMENT EQUIPMENT FLWMTR HUMIDFR&M ASK HEPATITIS 24363 [facility] A 8 [facility] ANTIBODY INC INC HAAB ACUTE 37787 [facility] HEPATITIS 8 [facility] PANEL INC INC COMPREHEN 41318 [facility] SIVE 8 [facility] METABOLIC INC INC PANEL HEPATITIS 36815 [facility] B CORE 8 [facility] ANTIBODY INC INC HBCAB TOTAL HEPATITIS 55540 BRANDON Boyd SURF 8 [facility] [place] [address] [facility] AMYLASE 8 [place] [address] [facility] LIPASE 8 [facility] INC INC BLOOD 15217 [facility] COUNT 8 [facility] COMPLETE INC INC AUTO&AUTO DIFRNTL WBC URNLS DIP 26504 [facility] 8 [facility] STICK/TAB INC INC LET REAGENT AUTO MICROSCOP Y COMPREHEN 58315 [facility] SIVE 8 [facility] METABOLIC INC INC PANEL CULTURE 07819 [facility] BACTERIAL 8 [facility] INC INC QUANTTATI VE COLONY COUNT URINE SUSCEPTIB 17578 [facility] LTY STDY 8 [facility] ANTIMICRB INC INC IAL MICRO/AGA R DILUTJ RADEX ABD 62958 RITU CACERES 8 MEDICAL FREDO AQT ABD IMAGING W/S/E/D ASSOCIATE VIEWS 1 S VIEW CH CULTURE 74799 [facility] BCT 8 [facility] MEM [...] DIABETES DIABETES BLOOD 8 CARE CLUB CARE [facility] GLUCOSE SemiNex [facility] MONITOR PO A4258 DIABETES DIABETES WERED 8 CARE CLUB CARE Mettl DEVICE Impulsiv FOR LANCET EACH BLD GLU A4253 DIABETES DIABETES TEST/REAG 8 CARE CLUB CARE [facility] T STRIPS [facility] HOME BLD GLU MON-50 NORMAL A4256 DIABETES DIABETES LOW AND 8 CARE CLUB CARE CLUB HIGH Impulsiv CALIBRATO R SOLUTION/ CHIPS O2 CONC 1 E1390 EVELYN RIVAS DEL PORT 8 HOME HOME 85%/>02 MEDICAL MEDICAL CONC AT EQUIPMENT EQUIPMENT PRSC FLW RATE PRTBLE E0431 EVELYN RIVAS GASEOUS 8 HOME HOME O2 SYS MEDICAL MEDICAL RENT; EQUIPMENT EQUIPMENT FLWMTR HUMIDFR&M ASK ANGIOCARD 8853 [facility] IOGRAPHY 8 CONGREGATION CONGREGATION OF LEFT HOSP HOSP HEART STRUCTURE S LEFT 3722 [facility] HEART 8 CONGREGATION CONGREGATION CARDIAC HOSP HOSP CATHETERI ZATION CORONARY 8856 [facility] ARTERIOGR 8 CONGREGATION CONGREGATION APHY HOSP HOSP USING TWO CATHETERS COLLECTIO 02083 [facility] N VENOUS 8 CONGREGATION CONGREGATION BLOOD HOSP HOSP VENIPUNCT URE INJECTION 61762 [facility] CARDIAC 8 CONGREGATION CONGREGATION CATHJ L HOSP HOSP VENTR/L ATR ANGIOGRAP H LIPID 16852 [facility] PANEL 8 CONGREGATION CONGREGATION HOSP HOSP GLUCOSE 18818 [facility] BLOOD 8 CONGREGATION CONGREGATION REAGENT HOSP HOSP STRIP L HRT 23171 [facility] CATHETERI 8 CONGREGATION CONGREGATION ZATION HOSP [place] [address] [facility] C-CATHJ 8 CONGREGATION CONGREGATION F/SLCTV C HOSP HOSP ANGRPH I SI&R 89012 [facility] F/NJX PX 8 ORTH, DURING CARDIOLOG MARIANA C-CATHJ Y VENTR&/AT CONSULTAN R ANGRPH T I SI&R 87131 [facility] F/NJX PX 8 ORTH, DURING CARDIOLOG MARIANA C-CATHJ Y PULM&/OR CONSULTAN SELECT T BLOOD 78087 [facility] COUNT 8 CONGREGATION CONGREGATION COMPLETE HOSP HOSP AUTOMATED ECG 83288 [facility] ROUTINE 8 ORTH, ECG CARDIOLOG MARIANA W/LEAST Y 12 LDS CONSULTAN I&R ONLY T RADIOLOGI 88118 [facility] ZAMUDIO, C EXAM 8 RADIOLOGY ROB CHEST 2 ASSOC C VIEWS FRONTAL&L ATERAL ECG 81529 [facility] ROUTINE 8 CONGREGATION CONGREGATION ECG HOSP HOSP W/LEAST 12 LDS TRCG ONLY W/O I&R COLLECTIO 08736 [facility] N VENOUS 8 CONGREGATION CONGREGATION BLOOD HOSP HOSP VENIPUNCT URE BASIC 07449 [facility] METABOLIC 8 CONGREGATION CONGREGATION PANEL HOSP HOSP CALCIUM TOTAL ADMN SET [...] AT EQUIPMENT EQUIPMENT PRSC FLW RATE CYTP 35231 [facility], CERV/VAG 8 [place] INC MAR P AUTO THIN LAYER PREP MNL SCREEN AMB A0427 [facility] SERVICE 8 AMBULANCE AMBULANCE ALS SERVICE SERVICE EMERGENCY TRANSPORT LEVEL 1 AMB A0422 [facility] OXYGEN&O2 8 AMBULANCE AMBULANCE SUPPLIES SERVICE SERVICE LIFE SUSTAININ G SITUATION BASIC 75138 [facility] METABOLIC 8 [facility] PANEL INC INC CALCIUM TOTAL GROUND A0425 [facility] MILEAGE 8 AMBULANCE AMBULANCE PER SERVICE SERVICE STATUTE MILE ECG 12507 [facility] ROUTINE 8 [facility] ECG INC INC W/LEAST 12 LDS TRCG ONLY W/O I&R BLOOD 33044 [facility] COUNT 8 [facility] COMPLETE INC INC AUTO&[place] [address] [facility] T[facility] TROPONIN 8 [facility] QUANTITAT INC INC ANNABELLA CREATINE 48725 [facility] KINASE 8 [facility] TOTAL INC INC RADIOLOGI 88985 [facility] 8 MEDICAL FRDEO EXAMINATI IMAGING ON CHEST ASSOCIATE SINGLE S VIEW FRONTAL ECG 18810 BR[facility]ON ROMEROMIChristiano ROUTINE 8 [facility] W/LEAST PROF SERV 12 LDS I&R ONLY RHYTHM 87025 [facility] ECG 1-3 8 [facility] LEADS INC INC TRACING ONLY W/O I&R CREATINE 35807 BRANDON TAYLOR KINASE MB 8 [facility] FRACTION INC INC ONLY O2 CONC 1 E1390 EVELYN RIVAS DEL PORT 8 HOME HOME 85%/>02 MEDICAL MEDICAL CONC AT EQUIPMENT EQUIPMENT PRSC FLW RATE PRTBLE E0431 EVELYN RIVAS GASEOUS 8 HOME HOME O2 SYS MEDICAL MEDICAL RENT; EQUIPMENT EQUIPMENT FLWMTR HUMIDFR&M ASK DOPPLER 05808 BRANDON TAYLOR ECHOCARD 8 [facility] PULSE INC INC WAVE W/SPECTRA L DISPLAY ECHO 14472 BRANDON TAYLOR TRANSTHOR 8 [facility] AC R-T 2D INC INC W/WO M-MODE REC COMP DOP 36218 BRANDON TAYLOR ECHOCARD 8 [facility] COLOR INC INC FLOW VELOCITY MAPPING RADIOLOGI 34941 [facility] MÉNDEZ EXAM 8 MEDICAL RAHCEL P CHEST 2 IMAGING VIEWS ASSOCIATE FRONTAL&L S ATERAL INITIAL 47769 [place] SCOTTY OBSERVATI 8 [facility] CARE/DAY MED 30 MINUTES NJX [address]444 CARIN DEL ROSARIO ANES&/STR 8 ERVIN HuffmanT NRV CRV/THRC EA LVL NJX 82325 CARIN DEL ROSARIO ANES&/STR 8 ERVIN RICARDO NRV CRV/THRC 1 LVL FLUOR 80942 CARIN DEL ROSARIO, NEEDLE/CA 8 ERVIN Nunn TH SPINE/PAR ASPIN[place] DX/[place] [address] BRANDON RABAGOON THYROXINE 8 [facility] TOTAL INC INC COMPREHEN 83846 BRANDON RABAGOON SIVE 8 [facility] METABOLIC INC INC PANEL THROMBOPL 20761 BRANDON RABAGOON ASTIN 8 [facility] TIME INC INC PARTIAL PLASMA/WH OLE BLOOD 25 58949 BRANDON TAYLOR HYDROXY 8 [facility] INCLUDES INC INC FRACTIONS IF PERFORMED BLOOD 57020 BRANDON BRANDON COUNT 8 [facility] COMPLETE INC INC AUTO&AUTO DIFRNTL WBC THYROID 77866 BRANDON TAYLOR HORM 8 [facility] UPTK/THYR INC INC OID HORMONE BINDING RATIO ECG 34088 BRANDON TAYLOR ROUTINE 8 [facility] ECG INC INC W/LEAST 12 LDS TRCG ONLY W/O I&[place] [address] BRANDON TAYLOR THYROID 8 [facility] STIMULATI INC INC NG HORMONE TSH ECG 29461 BRANDON LEMUS ROUTINE 8 [facility] W/LEAST PROF SERV 12 LDS I&R ONLY PROTHROMB 71991 BRANDON TAYLOR IN TIME 8 [facility] INC INC O2 CONC 1 E1390 EVELYN RIVAS DEL PORT 8 HOME HOME 85%/>02 MEDICAL MEDICAL CONC AT EQUIPMENT EQUIPMENT PRSC FLW RATE PRTBLE E0431 EVELYN RIVAS GASEOUS 8 HOME HOME O2 SYS MEDICAL MEDICAL RENT; EQUIPMENT EQUIPMENT FLWMTR HUMIDFR&M ASK APPLICATI 07213 KAVYA HOFF, ON 8 ERVIN Huffman MODALITY 1/> AREAS HOT/COLD PACKS APPL 84034 KAVYA HOFF, MODALITY 8 ERVIN Huffman 1/> AREAS 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 L CHIROPRAC 28666 KAVYA HOFF, TIC 8 ERVIN Huffman MANIPULAT ANNABELLA [place] SPINAL 3-4 REGIONS THERAPEUT 53020 KAVYA HOFF, ACTVITY 8 ERVIN Huffman DIRECT PT CONTACT EACH 15 MIN THERAPEUT 31151 KAVYA HOFF, ACTVITY 8 ERVIN Huffman DIRECT PT CONTACT EACH 15 MIN CHIROPRAC 65770 KAVYA HOFF, TIC 8 ERVIN Huffman MANIPULAT ANNABELLA TX SPINAL 3-4 REGIONS APPL 57702 KAVYA HOFF, MODALITY 8 ERVIN Huffman 1/> AREAS 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 L APPLICATI 05550 KAVYA HOFF, ON 8 ERVIN Huffman MODALITY 1/> AREAS HOT/COLD PACKS APPLICATI 93472 KAVYA HOFF, ON 8 ERVIN Huffman MODALITY 1/> AREAS HOT/COLD PACKS APPL 52273 KAVYA HOFF, MODALITY 8 ERVIN Huffman 1/> AREAS 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 L CHIROPRAC 48922 KAVYA HOFF, TIC 8 ERVIN Huffman MANIPULAT ANNABELLA [place] SPINAL 3-4 REGIONS THERAPEUT 40423 KAVYA HOFF, ACTVITY 8 ERVIN Huffman DIRECT PT CONTACT EACH 15 MIN TECHNETIU A9500 BRANDON BRANDON M TC-99M 8 [facility] SESTAMIBI INC INC DX PER STUDY DOSE MYOCRD 24545 NIMA GONZALEZUJ STD 8 HEART & NEZAR M EJEC FXJ VASCULAR ASSOC MYOCRD 01631 BRANDON BRANDON PRFUJ STD 8 [facility] WALL INC INC MOTION QUAL/CASSANDRA STD MYOCRD 10917 NIMA GONZALEZUJ IMG 8 HEART & NEZAR M TOMOG VASCULAR SPECT CONTINUING EDUCATION SPECIALIST ASSOC STD CV STRS 01072 LEONA SOLIS, TST 8 HEART & NEZAR M XERS&/OR VASCULAR RX CONT ASSOC ECG I&R ONLY CV STRS 60231 LEONA SOLIS TST 8 HEART & NEZAR M XERS&/OR VASCULAR RX CONT ASSOC ECG W/O I&R CV STRS 17409 BRANDON TAYLOR TST 8 [facility] XERS&/OR INC INC RX CONT ECG TRCG ONLY GLUC BLD 50726 BRANDON TAYLOR GLUC MNTR 8 [facility] DEV INC INC CLEARED FDA SPEC HOME USE OBSERVATI 87140 CHRIS CARY ON CARE 8 [facility] INTER[facility] BRANDON TAYLOR OBSERVATI 8 [facility] ON INC INC SERVICE [facility] G0378 BRANDON TAYLOR OBSERVATI 8 [facility] ON INC INC SERVICE PER HOUR [facility] A0427 [facility] SERVICE 8 AMBULANCE AMBULANCE ALS SERVICE SERVICE EMERGENCY TRANSPORT LEVEL 1 GLUC BLD 51781 BRANDON TAYLOR GLUC MNTR 8 [facility] DEV INC [place] [address] BRANDON TAYLOR TROPONIN 8 [facility] QUANTITAT INC INC ANNABELLA BLOOD 07092 BRANDON TAYLOR COUNT 8 [facility] COMPLETE INC INC AUTO&AUTO DIFRNTL WBC ECG 57133 BRANDON TAYLOR ROUTINE 8 [facility] ECG INC INC W/LEAST 12 LDS TRCG ONLY W/O I&R CREATINE 39623 BRANDON TAYLOR KINASE 8 [facility] TOTAL INC INC RADIOLOGI 96983 José DUKES 8 MEDICAL RACHEL Nunn EXAMINATI IMAGING ON CHEST ASSOCIATE SINGLE S VIEW FRONTAL ECG 15958 MIKAELA DODD 8 [facility] W/LEAST PROF SERV 12 LDS I&R ONLY RHYTHM 39258 BRANDON TAYLOR ECG 1-3 8 [facility] LEADS INC INC TRACING ONLY W/O I&R CREATINE 20240 BRANDON TAYLOR KINASE MB 8 [facility] FRACTION INC INC ONLY IV NFUS 98348 BRANDON ATYLOR THER 8 [facility] PROPH/DX INC INC EA HR BASIC 34401 BRANDON TAYLOR METABOLIC 8 [facility] PANEL INC INC CALCIUM TOTAL GROUND A0425 [facility] 8 AMBULANCE AMBULANCE PER SERVICE SERVICE STATUTE MILE INITIAL 28901 [place] JUVENTINORONNChristiano VERA 8 [facility] CARE/DAY MED 30 MINUTES LIPID 38788 BRANDON TAYLOR PANEL 8 [facility] [place] [address] BRANDON TAYLOR THER 8 [facility] PROPH/DX INC INC 1ST >1 HR O2 CONC 1 E1390 EVELYN RIVAS DEL PORT 8 HOME HOME 85%/>02 MEDICAL MEDICAL CONC AT EQUIPMENT EQUIPMENT PRSC FLW RATE PRTBLE E0431 EVELYN RIVAS GASEOUS 8 HOME HOME O2 SYS MEDICAL MEDICAL RENT; EQUIPMENT EQUIPMENT FLWMTR HUMIDFR&M ASK SYPHILIS 11369 BRANDON TAYLOR TEST 8 [facility] NON-TREPO INC INC NEMAL ANTIBODY QUAL NRV CNDJ 79987 SAMANTA ENGLAND, AMPLT&LAT 8 CHUCK LAZAR EA NRV MOTOR W/F-WAVE STD NRV CNDJ 47275 SAMANTA ENGLAND, AMPLITUDE 8 CHUCK WOODS & LATENCY EACH NERVE SENSORY COMPREHEN 91857 BRANDON TAYLOR SIVE 8 [facility] [place] [address] BRANDON TAYLOR THYROXINE 8 [facility] TOTAL INC INC NDL EMG 2 09084 SAMANTA ENGLAND, XTR W/WO 8 CHUCK CHUCK RELATED PARASPINA L AREAS RHEUMATOI 70866 BRANDON TAYLOR D FACTOR 8 [facility] [place] [address] BRANDON TAYLOR THYROID 8 [facility] STIMULAT[place] [address] BRANDON TAYLOR FOLIC 8 [facility] [place] [address] BRANDON TAYLOR THIAMINE- 8 [facility] VITAMIN INC INC B-1 CYANOCOBA 23869 BRANDON TAYLOR PRATEEK 8 [facility] VITAMIN INC INC B-12 BLOOD 10689 BRANDON TAYLOR COUNT 8 [facility] COMPLETE INC INC AUTO&AUTO DIFRNTL WBC HEMOGLOBI 33685 BRANDON TAYLOR N 8 [facility] GLYCOSYLA INC INC ML A1C O2 CONC 1 E1390 EVELYN RIVAS DEL PORT 8 HOME HOME 85%/>02 MEDICAL MEDICAL CONC AT EQUIPMENT EQUIPMENT PRSC FLW RATE PRTBLE E0431 EVELYN RIVAS GASEOUS 8 HOME HOME O2 SYS MEDICAL MEDICAL RENT; EQUIPMENT EQUIPMENT FLWMTR HUMIDFR&M ASK Encounters Encounter Start End Date Code Location Performer Type Date [facility] BRANDON - 7 7 [facility] OUTPATIEN [facility] BRANDON - Lenora 7 [facility] BRANDON Cooley 7 [facility] BRANDON Cooley 7 [facility] 10733 BRANDON 7 7 [facility] L[facility]MODER SEVERITY [facility] BRANDON - Lenora 7 [facility] 48741 BRANDON HARRIST 7 7 [facility] VISIT INC HIGH [facility]VERITY& TH[facility]AT [facility] 7 7 [facility] OUTPATIEN [facility] T EMERGENCY [address] BRANDON [address] [facility] T VISIT LOW/MODER SEVERITY HOSPITAL BRANDON - 7 7 [facility] OUTPATIEN [facility] BRANDON - 7 7 [facility] T OFFICE 61974 [facility]ER[facility] MOJICA OUTPATIEN 7 7 PARTNERS T VISIT OF BELLE 25 CO MINUTES HOSPITAL BRANDON - 7 7 [facility] 75726 BRANDON [address] [facility] T VISIT HIGH/URGE NT SEVERITY HOSPITAL BRANDON - OTHER 7 7 [facility] BRANDON - OTHER 7 7 [facility] BRANDON - 7 7 [facility] OUTPATIEN [facility] BRANDON - 7 7 [facility] OFFICE 98952 [facility] FR[facility] OUTSHABBIR 7 7 PHYSICIAN T VISIT GROUP 15 MINUTES OFFICE 62167 BUNNY PULLIAM OUTSHABBIR 7 7 MEDICAL ASTELLANO T NEW 30 SERV S MINUTES [facility] 7 7 [facility] BRANDON - 7 7 [facility] OFFICE 11126 [facility] OUTPATIEN 7 7 PHYSICIAN T VISIT S GROUP 15 MINUTES EMERGENCY 72357 [facility] 7 7 [facility] EMERGENCY T VISIT PHYS HIGH/URGE NT SEVERITY EMERGENCY 10643 LE[facility] SHAH DEPT 7 7 PHYSICIAN VISIT S, PLLC HIGH SEVERITY& THREAT FUNCJ EMERGENCY 62341 BRANDON 7 7 [facility] DEPARTMEN INC T VISIT LOW/MODER SEVERITY HOSPITAL BRANDON - 7 7 [facility] OUTPATIEN INC T HOSPITAL BRANDON - 7 7 [facility] OUTPATIEN INC T EMERGENCY 18222 [facility] 7 [facility] V[facility]IT S, [facility] HIGH SEVERITY& THREAT [facility] BRANDON - 7 7 [facility] OUTPATIEN INC T EMERGENCY 93534 BRANDON 7 7 [facility] HIGH/URGE NT SEVERITY HOSPITAL BRANDON - OTHER 7 7 [facility] EMERGENCY 66990 BRANDON 7 7 [facility] T VISIT MODERATE SEVERITY EMERGENCY 37545 [facility] 7 7 PHYSICIAN DEPARTMEN S, [facility] T VISIT HIGH/URGE NT SEVERITY HOSPITAL BRANDON - 7 7 [facility] OUTPATIEN [facility] T OFFICE 57040 [facility] [address] H[facility]PITAL BRANDON [facility] OTHER 7 7 [facility] EMERGENCY 52046 BRANDON 7 7 [facility] T VISIT LOW/MODER SEVERITY EMERGENCY 63050 [facility] SINGH DEPT 7 7 PHYSICIAN VISIT S, [facility] HIGH SEVERITY& THREAT [facility] BRANDON - 7 7 [facility] OUTPATIEN INC T HOSPITAL BRANDON - 7 7 [facility] OUTPATIEN INC T HOSPITAL BRANDON [facility] 7 7 [facility] OUTPATIEN INC T EMERGENCY 00800 [facility] 7 7 PHYSICIAN VISIT S, [facility] HIGH SEVERITY& THREAT FUN EMERGENCY 77751 BRANDON 7 7 [facility] T VISIT LOW/MODER SEVERITY HOSPITAL BRANDON - OTHER 7 7 [facility] H[facility]PITAL BRANDON - 7 7 [facility] OUTPATIEN [facility] BRANDON - 7 7 [facility]PATI[facility] BRANDON - 6 6 [facility]PATI[facility] BRANDON - 6 6 [facility]PATIEN [facility] 68190 [facility] RENUSCH 6 6 [facility]IC[facility] RUBIOMEN [facility] HIGH/URGE NT SEVERITY EMERGENCY 58380 BRANDON [address] [facility] T VISIT LOW/MODER SEVERITY OFFICE 59589 [facility] LORIE MCNALLY OUTPATIEN 6 6 PHYSICIAN T VISIT S GROUP 25 MINUTES HOSPITAL BRANDON - 6 6 [facility] INPATIENT [facility] EMERGENCY 60581 BRANDON [address] [facility] T VISIT LOW/MODER SEVERITY HOSPITAL BRANDON - 6 6 [facility] 24185 [facility] RENUSCH 6 6 PHYSICIAN ILIR DANIELS S [facility] T VISIT HIGH/URGE NT SEVERITY HOSPITAL BRANDON - 6 6 [facility] OFFICE 95771 [facility] LORIE MCNALLY OUTPATISABRINA 6 6 PHYSICIAN T NEW 45 S GROUP MINUTES EMERGENCY 21830 [facility] RENUSCH 6 6 PHYSICIAN ILIR [facility]S [facility] HIGH/URGE NT SEVERITY HOSPITAL BRANDON - 6 6 [facility] 29471 [facility] HAYDEN SHAKILA 6 6 PHYSICIAN FRANCES S [facility] T VISIT HIGH/URGE NT SEVERITY EMERGENCY 11457 BRANDON [address] [facility] T VISIT LOW/MODER SEVERITY HOSPITAL BRANDON - 6 6 [facility] OUTPATIEN [facility] T OFFICE 65893 [facility] OUTPATIEN 6 6 FOOT & T NEW 30 ANKLE CE MINUTES HOSPITAL BRANDON - 6 6 [facility] OUTPATIEN [facility] T EMERGENCY 82059 [facility] 6 6 [facility] T VISIT LOW/MODER SEVERITY EMERGENCY 55793 [facility] SHAH 6 6 PHYSICIAN [facility] S, [facility] T VISIT HIGH/URGE NT SEVERITY HOSPITAL BRANDON - 6 6 [facility] OUTPATIEN [facility] BRANDON - 6 6 [facility] OUTPATIEN [facility] T EMERGENCY 18430 BRANDON [address] [facility] T VISIT LOW/MODER SEVERITY HOSPITAL BRANDON - 6 6 [facility] T EMERGENCY 43808 [facility] MARTINEZ, 6 6 PHYSICIAN JR FUENTES [facility] S, [facility] T VISIT HIGH/URGE NT SEVERITY OFFICE 83368 [facility] KEREN CORDOVA 6 6 PHYSICIAN T VISIT S GROUP 10 EMERGENCY 50573 [facility] MAC 6 6 PHYSICIAN Meng HOWARD [facility] S, [facility] T VISIT HIGH/URGE NT SEVERITY HOSPITAL BRANDON - 6 6 [facility] OUTPATIEN [facility] T EMERGENCY 09047 BRANDON [address] [facility] T VISIT LOW/MODER SEVERITY EMERGENCY 77431 [facility] SHAH 6 6 PHYSICIAN SHANTHI [facility] S, [facility] T VISIT HIGH/URGE NT SEVERITY EMERGENCY 64759 BRANDON [address] [facility] T VISIT LIMITED/M INOR PROB HOSPITAL BRANDON - 6 6 [facility] OUTPATIEN [facility] T OFFICE 80947 [facility] HERNANDEZ OUTPATIEN 6 6 PHYSICIAN JERRY T VISIT S GROUP 10 MINUTES HOSPITAL BRANDON - 6 6 [facility] BRANDON - 6 6 [facility] 12356 BRANDON [address] [facility] T VISIT LOW/MODER SEVERITY OFFICE 09765 EVELYN HALLMAN [facility] 6 6 [facility] CENTER 10 MINUTES HOSPITAL BRANDON - OTHER 6 6 [facility] BRANDON - OTHER 6 6 [facility] BRANDON - OTHER 5 5 [facility] EMERGENCY 97481 [facility] SHAH DEPT 5 5 PHYSICIAN SHANTHI VISIT S, [facility] HIGH SEVERITY& THREAT FUNCJ EMERGENCY 39083 BRANDON [address] [facility] T VISIT MODERATE SEVERITY HOSPITAL BRANDON - 5 5 [facility] BRANDON - 5 5 [facility] 27714 [facility] SHAH 5 5 PHYSICIAN SHANTHI DEPARTMEN S, [facility] T VISIT HIGH/URGE NT SEVERITY EMERGENCY 10981 [facility] MAC 5 5 PHYSICIAN U ANITA DEPARTMEN S, [facility] T VISIT HIGH/URGE NT SEVERITY OFFICE 65137 [facility] 5 5 [facility] T VISIT INTERNAL 15 MED MINUTES EMERGENCY 42165 [facility] SHAH DEPT 5 5 PHYSICIAN SHANTHI VISIT S, PLLC HIGH SEVERITY& THREAT FUNCJ EMERGENCY 62227 BRANDON [address] [facility] T VISIT HIGH/URGE NT SEVERITY HOSPITAL BRANDON - 5 5 [facility] BRANDON - 5 5 [facility] BR[facility]ON [facility] 5 5 [facility] BRANDON [facility] 5 5 [facility] EMERGENCY 29931 BRANDON [address] [facility] T VISIT LOW/MODER SEVERITY HOSPITAL BRANDON [facility] 5 5 [facility] EMERGENCY 40246 [facility] SHAH 5 5 PHYSICIAN [facility] S, [facility] T VISIT HIGH/URGE NT SEVERITY OFFICE 62129 [place] [facility] 5 5 MEDICAL AYANANE T VISIT SERV ACH 25 FOUNDATIO MINUTES HOSPITAL BRANDON - 5 5 [facility] [address] [facility] BRANDON - OTHER 5 5 [facility] BRANDON - 5 5 [facility] EMERGENCY 95192 BRANDON MARTINEZ, 5 5 [facility] T VISIT P HIGH/URGE NT SEVERITY HOSPITAL BRANDON - 5 5 [facility] 35217 [place] [facility] 5 5 MEDICAL AYANANE T VISIT SERV ACH 25 FOUNDATIO MINUTES N EMERGENCY 31153 BRANDON [facility] 5 5 [facility] T VISIT P HIGH/URGE NT SEVERITY OFFICE 19639 [facility] 4 4 PHYSICIAN LUCITA T VISIT S GROUP 25 MINUTES EMERGENCY 83332 BRANDON [address] [facility] T VISIT LOW/MODER SEVERITY EMERGENCY 02833 [facility] 4 4 [facility] EMERGENC[facility] T VISIT PHYS MODERATE SEVERITY HOSPITAL BRANDON - 4 4 [facility] OFFICE 27798 EAR, NOSE SHASHY OUTPATIEN 4 4 AND SOBEIDA T VISIT THROAT 25 SPECIAL MINUTES OFFICE 90466 MARNI MARNI OUTPATIEN 4 4 LUIS ALFREDO LUIS ALFREDO T VISIT 25 MINUTES OFFICE 83901 EAR, NOSE SHASHY OUTPATIEN 4 4 AND SOBEIDA T VISIT THROAT 25 SPECIAL MINUTES HOSPITAL BRANDON - 4 4 [facility] UN[facility] - 4 4 [facility] T OFFICE 02135 [facility] MEDICAL AYANANE T VISIT SERV ACH 25 FOUNDATIO MINUTES EMERGENCY 16923 [facility] 4 4 KAMAR SHANTHI DEPARTMEN EMERGENCY T VISIT PHYS HIGH/URGE NT SEVERITY [facility] UNIVERSIT - 4 4 Y [facility] T OFFICE 37293 [facility] OUTPATIEN 4 4 DERMATOLO DERMATOLO T NEW 30 GY GY MINUTES [facility] - 4 4 [facility] 4 4 [facility] 4 4 [facility]PITAL UNIVERSIT [facility] OTHER 4 4 [facility] UN[facility] - 4 4 Y [facility] T EMERGENCY 83086 BUNNY DAVIES 4 4 MEDICAL MAT DEPARTMEN SERV T VISIT FOUNDATIO HIGH/URGE NT SEVERITY [facility] - OTHER 4 4 [facility] EMERGENCY 97440 [facility] DEPT 4 4 KAMAR VISIT EMERGENCY HIGH PHYS SEVERITY& [facility] 4 [facility] OTHER 4 4 [facility] INC OFFICE 68077 [place] NATACHA PHI OUTPATIEN 4 4 [facility] 30 SERV [facility] FOUND[facility] OFFICE 30490 [facility] MIRANDA [facility]PATIEN 4 4 [facility] 15 P MINUTES [facility]OSP[facility] - 4 4 [facility] EMERGENCY 88818 MARLO WHITEEY DEPT 4 4 EMERGENCY SHANTHI VISIT SERVICES HIGH SEVERITY& THREAT [facility] OFFICE 26143 CONGREG[facility] GARO OUTPATIEN 4 4 NEUROLOGY [facility] 45 [facility] 4 [facility] - 4 4 [facility] - 4 4 [facility] Emergency WALLY Shah MD (ER) 3 00:03 3 00:46 [facility] EMERGENCY 72278 [facility] 3 3 EMERGENCY SHANTHI VISIT SERVICES HIGH SEVERITY& THREAT [facility] - 3 3 [facility] OFFICE 84411 [facility] MIRANDA OUTPATIEN 3 3 [facility] 10 P MINUTES [facility]OS[facility] - 3 3 [facility] - 3 3 [facility] - 3 3 [facility] OFFICE 35209 [facility] MIRANDA OUTPATIEN 3 3 [facility] 10 P MINUTES Emergency WALLY Shah MD (ER) 3 18:37 3 21:35 [facility] - 3 3 [facility] OUTPATIEN INC T EMERGENCY 93477 [facility] 3 3 [facility] DEPARTMEN INC T VISIT LOW/MODER SEVERITY EMERGENCY 68984 [facility] DEPT 3 3 EMERGENCY BRO VISIT SERVICES HIGH SEVERITY& THREAT [facility] OFFICE 80522 MARNI REYNAGAURN OUTPATIEN 3 3 LUIS ALFREDO LOBATO T VISIT 15 MINUTES [facility] - 3 3 [facility] 3 3 [facility] 3 3 [facility] 3 3 [facility] INC T OFFICE 80290 MARNI GRIDER OUTPATIEN 3 3 LUIS ALFREDO LOBATO T VISIT 25 MINUTES [facility] - 3 3 [facility] OUTPATIEN INC T OFFICE 03739 [place] MCKEM[facility] OUTPATIEN 3 3 ZACK[facility] HUMPHREYS T VISIT INTERNAL 15 MED MINUTES [facility] - 3 3 [facility] - 3 3 [facility] OUTPATIEN INC T OFFICE 31035 [facility] GRIDER OUTPATIEN 3 3 LUIS ALFREDO LOBATO T VISIT 40 MINUTES [facility] - 3 3 [facility] INC T OFFICE 53284 [place] MCKEM[facility] OUTPATIEN 3 3 ZACKERY HUMPHREYS T VISIT INTERNAL 15 MED MINUTES OFFICE 69656 [place] MUSTAPHA OUTPATIEN 3 3 ZACKERY CECE T VISIT INTERNAL 15 MEDI MINUTES OFFICE 58067 [place] MCK[facility] OUTPATIEN 3 3 ZACK[facility] HUMPHREYS T VISIT INTERNAL 15 MED MINUTES OFFICE 23568 [facility] 3 3 [facility] PETR T VISIT INTERNAL 15 MED MINUTES [facility] T OFFICE 63857 [facility] 3 3 [facility] T VISIT INTERNAL 15 MEDI MINUTES [facility] - [facility] 3 [facility] T OFFICE 10807 [facility] 3 3 [facility] PETR T VISIT INTERNAL 15 MED MINUTES [facility] - 3 3 [facility] T OFFICE 27713 [facility] 3 3 [facility] T VISIT INTERNAL 15 MEDI MINUTES HOSP[facility] - 3 3 [facility] T OFF[facility] 50016 [facility] PETTEY OUTPATIEN 3 3 [facility] T NEW 30 S GROUP MINUTES OFFICE 96431 [facility] 3 3 [facility] T VISIT INTERNAL 15 MEDI MINUTES [facility] - 3 3 [facility] T OFFICE 38238 [facility] 3 3 [facility] T VISIT INTERNAL 15 MEDI MINUTES OFFICE 26828 MARNI MARNI OUTPATIEN 3 3 LUIS ALFREDO LUIS ALFREDO T VISIT 25 MINUTES OFFICE 17863 MARNI MARNI OUTPATIEN 3 3 LUIS ALFREDO LUIS ALFREDO T VISIT 25 MINUTES OFFICE 28077 [facility] 3 3 [facility] T VISIT INTERNAL 15 MEDI MINUTES HOSP[facility] - 3 3 [facility] T OFFICE 53296 [facility] CEDRICK JR OUTPATIEN 3 3 [facility] T NEW 30 HOSPITAL MINUTES P OFFICE 76693 [facility] 3 3 [facility] T VISIT INTERNAL 15 MEDI MINUTES OFFICE 22998 [facility] 3 3 [facility] HUMPHREYS T VISIT INTERNAL 15 MED MINUTES [facility] - 3 3 [facility] INPATIENT INC OFFICE 98922 [facility] 3 3 [facility] T VISIT INTERNAL 15 MEDI MINUTES [facility] - 3 3 [facility] T EMERGENCY 09914 [facility] 2 2 [facility] DEPARTMEN INC T VISIT HIGH/URGE NT SEVERITY [facility] T OFFICE 17749 [facility] 2 2 [facility] T VISIT INTERNAL 15 MED MINUTES OFFICE 61962 [facility] 15 MINUTES OFFICE 35287 [facility] 15 MINUTES [facility]OSP[facility] - 2 2 [facility] T EMERGENCY 87359 [facility] DEPT 2 2 KAMAR DEIDRA VISIT EMERGENCY HIGH PHYS SEVERITY& THREAT FUNC OFFICE 12139 [facility] 15 MINUTES OFFICE 87207 [facility] 15 MINUTES OFFICE 17580 [facility] 2 2 [facility] 15 MINUTES OFFICE 44429 [facility] OUTPAT[facility] 2 2 L [facility]GIAL CATRACHITO T NEW 45 MINUTES ASSOCIATE OFFICE 76227 [facility] OUT[facility] 2 2 [facility] T NEW 45 E CENTER MINUTES EMERGENCY 16110 [facility] 2 2 [facility] DEPARTMEN EMERGENCY T VISIT SERVI HIGH/URGE NT SEVERITY OFFICE 10133 José LYONS OUTPATIEN 2 2 ELOY GAMBOA T VISIT MD [facility] 25 MINUTES HOSPITAL [facility] - 2 2 [facility] T OFFICE 51732 [facility] 2 2 ZACKERY ZHAO T VISIT INTERNAL 15 MEDI MINUTES [facility] - 2 2 [facility] T OFFICE 01330 [facility] 2 2 [facility] HUMPHREYS T VISIT INTERNAL 15 MED MINUTES EMERGENCY 11735 [facility] DEPT 2 2 Y VISIT HOSPITAL HIGH SEVERITY& THREAT [facility] UNIVERSIT - 2 2 Y OUTPATI HOSPITAL T EMERGENCY 07062 [facility] 2 2 [facility] DEPARTMEN INC T VISIT HIGH/URGE NT SEVERITY EMERGENCY 31608 MARLO FATIMA DEPT 2 2 EMERGENCY PETR VISIT SERVICES HIGH SEVERITY& THREAT [facility] - 2 2 [facility] T OFFICE 69030 [facility] 2 2 [facility] HUMPHREYS T VISIT INTERNAL 15 MED MINUTES HOSP[facility] - 2 2 [facility] T EMERGENCY 99025 [facility] 2 2 [facility] DEPARTMEN INC T VISIT HIGH/URGE NT SEVERITY EMERGENCY 72499 MARLO SHAH DEPT 2 2 EMERGENCY SHANTHI VISIT SERVICES HIGH SEVERITY& THREAT [facility] - 2 2 [facility] T OFFICE 48998 [facility] 2 2 ZACKERY WINSTON T VISIT INTERNAL 15 MED MINUTES EMERGENCY 47421 [facility] 2 2 [facility] DEPARTMEN INC T VISIT MODERATE SEVERITY EMERGENCY 99319 MARLO SHAH 2 2 EMERGENCY SHANTHI DEPARTMEN SERVICES T VISIT HIGH/URGE NT SEVERITY [facility] - 2 2 [facility] T OFFICE 98639 [facility] 2 2 [facility] HUMPHREYS T VISIT INTERNAL 15 MED MINUTES [facility] - 2 2 [facility] T OFFICE 93565 [facility] 2 2 [facility] W[place] T VISIT INTERNAL 25 MED MINUTES OFFICE 41328 MARNI MARNI OUTPATIEN 2 2 LUIS ALFREDO LOBATO T VISIT 25 MINUTES HOSPITAL [facility] - 2 2 [facility] INC T EMERGENCY 33897 [facility] 2 2 [facility] DEPARTMEN INC T VISIT MODERATE SEVERITY [facility] - 2 2 [facility] T [facility] - 2 2 [facility] T OFFICE 90866 MARNI MANRI OUTPATIEN 2 2 LUIS ALFREDO LOBATO T NEW 45 MINUTES OFFICE 55687 [facility] 2 2 ZACKERY CECE T VISIT INTERNAL 15 MEDI MINUTES OFFICE 80365 [facility] 2 2 COOL CECE T VISIT INTERNAL 15 MEDI MINUTES OFFICE 30125 [facility] 2 2 ZACKERY CECE T VISIT INTERNAL 10 MEDI MINUTES [facility] - 2 2 [facility] T EMERGENCY 19374 MARLO AKERS DEPT 2 2 EMERGENCY VISIT SERVICES HIGH SEVERITY& THREAT FUNCJ EMERGENCY 77278 [facility] 2 2 [facility] DEPARTMEN INC T VISIT HIGH/URGE NT SEVERITY OFFICE 88773 [facility] 2 2 [facility] T VISIT INTERNAL 15 MED MINUTES OFFICE 70723 KENZIE ESPINO OUTPATIEN 2 2 LUCITA LANDRUM T NEW 60 MINUTES OFFICE 61518 [facility] 2 2 [facility] T VISIT INTERNAL 15 MED MINUTES HOSPITAL [facility] - 2 2 [facility] T EMERGENCY 93992 MARLO CLINE 2 2 EMERGENCY III [facility] SERVICES T VISIT HIGH/URGE NT SEVERITY OFFICE 06872 [place] GAL THO OUTPATIEN 1 1 MEDICAL T NEW 30 SERV MINUTES FOUNDATIO OFFICE 97249 EAR, NOSE SHASHY OUTPATIEN 1 1 AND SOBEIDA T VISIT THROAT 25 SPECIAL MINUTES HOSP[facility] - 1 1 [facility] T OFFICE 98161 EAR, NOSE SHASHY OUTPATIEN 1 1 AND SOBEIDA T NEW 30 THROAT MINUTES SPECIAL OFFICE 15006 [facility] 1 1 [facility] T VISIT INTERNAL 15 MED MINUTES [facility] - 1 1 [facility] T [facility] - 1 1 [facility] INC T EMERGENCY 25043 [facility] 1 1 [facility] H[facility]URGE NT SEVERITY [facility] 1 [facility] T [facility] 1 1 [facility] T OFFICE 56606 ELLEN SCIEVELYN OUTPATIEN 1 1 VISION ANG T VISIT 10 MINUTES [facility]OSP[facility] - 1 1 [facility] T EMERGENCY 34644 MARLO JACKSON OSWALD 1 1 EMERGENCY DEPARTMEN SERVICES T VISIT HIGH/URGE NT SEVERITY EMERGENCY 49362 [facility] 1 1 [facility] DEPARTMEN INC T VISIT LIMITED/M INOR PROB [facility] 1 1 [facility] T [facility] - 1 1 [facility] OUTPAT[facility] INC T OFFICE 26354 PAWSAT PAWSAT OUTPATIEN 1 1 Aug T NEW 30 MINUTES HOSP[facility] - 1 1 [facility] T EMERGENCY 92658 [facility] 1 1 [facility] VISIT MODERATE SEVERITY EMERGENCY 68920 MRALO SHAH 1 1 EMERGENCY SHANTHI DEPARTMEN SERVICES T VISIT HIGH/URGE NT SEVERITY [facility] 1 1 [facility] 1 1 [facility] - 1 1 [facility] - 1 1 [facility] OUT[facility]EN INC OFFICE 41204 ARVIZU LUH OUTPATIEN 1 [address] T [facility] 45 MINUTES OFFICE 63590 RAKANHELEN CARIN OUTPATIEN 1 1 JANET GONZALES [facility] 45 MINUTES HOSPITAL [facility] - 1 1 [facility] - 1 1 [facility]PAT[facility] T [facility] 1 1 [facility] INC T EMERGENCY 18146 MARLO JACKSON OSWALD 1 1 EMERGENCY DEPARTMEN SERVICES T VISIT HIGH/URGE NT SEVERITY EMERGENCY 51707 [facility] 1 1 [facility] DEPARTMEN INC T VISIT HIGH/URGE NT SEVERITY [facility] - 1 1 [facility] - 1 1 [facility] INC EMERGENCY 14147 MARLO AKERS DEPT 1 1 EMERGENCY VISIT SERVICES HIGH SEVERITY& THREAT [facility] - 1 1 [facility] OUTPAT[facility] 1 1 [facility] 1 1 [facility] 1 1 [facility]PAT[facility]EN [facility] 1 1 [facility] 1 [facility] OUTPATIEN INC OFFICE 89736 José LYONS [facility] 1 1 ELOY Reaves MD [facility] - 1 1 [facility] OUTPATIEN INC EMERGENCY 32685 [facility] 0 0 [facility] DEPARTMEN INC T VISIT LOW/MODER SEVERITY EMERGENCY 76733 MARLO SHAH, 0 0 EMERGENCY [facility] DEPARTMEN SERVICES T VISIT MODERATE ASSOCIATE SEVERITY [facility] - 0 0 [facility] OUTPAT[facility]EN [facility] - 0 0 [facility] INC T EMERGENCY 16935 [facility] 0 0 [facility] DEPARTMEN INC T VISIT MODERATE SEVERITY EMERGENCY 24761 MARLO CORTÉS, 0 0 EMERGENCY [facility] DEPARTMEN SERVICES O T VISIT HIGH/URGE ASSOCIATE NT [facility] BR[facility] - 0 0 [facility] - 0 0 [facility] INC T EMERGENCY 01100 [facility] 0 0 [facility] DEPARTMEN INC T VISIT LOW/MODER SEVERITY EMERGENCY 59952 MARLO SHAH, 0 0 EMERGENCY [facility] SERVICES T VISIT MODERATE ASSOCIATE SEVERITY S HOSPITAL [facility] - 9 9 [facility] OUTPATIEN INC T OFFICE 51622 [facility], OUTPATIEN 9 9 COOL LAURIE A T VISIT INTERNAL 15 MED MINUTES OFFICE 30321 [facility], OUTPATIEN 9 9 COOL LAURIE A T VISIT INTERNAL 25 MED MINUTES HOSPITAL [facility] - 9 9 [facility] OUTPATIEN INC T OFFICE 28846 [facility] MCLETITIAMIE OUTPATIEN 9 9 [facility], T VISIT INTERNAL KANNAN F 10 MED MINUTES OFFICE 72100 [facility], OUTPATIEN 9 9 COOL LAURIE A T VISIT INTERNAL 15 MED MINUTES EMERGENCY 62388 MARLO SHAH, 9 9 EMERGENCY [facility] SERVICES T VISIT HIGH/URGE ASSOCIATE NT S SEVERITY [facility]OSP[facility] - 9 9 [facility] T EMERGENCY 21880 [facility] 9 9 [facility]IS[facility] MODERATE SEVERITY OFFICE 89310 [facility] 9 CHELSY Headley T VISIT 15 MINUTES EMERGENCY 34396 MARLO CORTÉS, DEPT 9 9 EMERGENCY [facility] VISIT SERVICES O HIGH SEVERITY& ASSOCIATE THREAT S [facility] EMERGENCY 24341 MARLO SHAH, 9 9 EMERGENCY [facility] SERVICES T VISIT MODERATE ASSOCIATE SEVERITY S EMERGENCY 76383 MARLO SHAH, 9 9 EMERGENCY [facility] SERVICES T VISIT HIGH/URGE ASSOCIATE NT S SEVERITY HOSPITAL [facility] - 9 9 [facility] OUTPATIEN [facility] T EMERGENCY 17837 [facility] 9 9 [facility] DEPARTMEN INC T VISIT MODERATE SEVERITY OFFICE 07557 LEANA DUEÑAS OUTPATIEN 9 9 CHELSY Headley T VISIT 15 MINUTES EMERGENCY 27736 [facility] 9 9 [facility] DEPARTMEN INC T VISIT HIGH/URGE NT SEVERITY [facility] - 9 9 [facility] OUT[facility] INC T EMERGENCY 23168 MARLO CORTÉS DEPT 9 9 EMERGENCY [facility] VISIT SERVICES O HIGH SEVERITY& ASSOCIATE THREAT S [facility] BR[facility] - 9 9 [facility] OUTPATIEN INC T EMERGENCY 54760 MARLO CENTENO DEPT 9 9 EMERGENCY SAL Huffman VISIT SERVICES HIGH SEVERITY& ASSOCIATE THREAT S [facility] EMERGENCY 85703 [facility] DEPT 9 9 [facility] VISIT INC HIGH SEVERITY& THREAT [facility] OFFICE 97430 MARY HERNANDEZ OUTPATIEN 9 9 OSWALDO Franz T VISIT 10 MINUTES HOSPITAL [facility] - 9 9 [facility] OUTPATIEN INC T [facility]OSPITAL [facility] - 9 9 [facility] INC T OFFICE 28222 MARY HERNANEDZ OUTPATIEN 9 9 OSWALDO Franz T VISIT 15 MINUTES OFFICE 18089 LEANA DUEÑAS OUTPATIEN 9 9 CHELSY Headley T VISIT 15 MINUTES OFFICE 68028 LEANA DUEÑAS OUTPATIEN 9 9 CHELSY Headley T VISIT 15 MINUTES EMERGENCY 72502 MARLO SHEA DEPT 9 9 EMERGENCY GISELLE Neely VISIT SERVICES HIGH SEVERITY& ASSOCIATE THREAT S [facility]ON - 9 9 [facility] OUTPATIEN INC T OFFICE 62461 LEANA DUEÑAS OUTPATIEN 9 9 CHELSY Headley T VISIT 15 MINUTES OFFICE 36188 LEANA DUEÑAS OUTPATIEN 9 9 CHELSY Headley T VISIT 15 MINUTES HOSP[facility] - 9 9 [facility] INC T EMERGENCY 17861 [facility] 9 9 [facility] DEPARTMEN INC T VISIT LOW/MODER SEVERITY EMERGENCY 01496 MARLO CORTÉS, 9 9 EMERGENCY [facility] DEPARTMEN SERVICES O T VISIT MODERATE ASSOCIATE SEVERITY S OFFICE 87538 LEANA DUEÑAS OUTPATIEN 9 9 CHELSY Headley T VISIT 15 MINUTES HOSPITAL [facility] - 9 9 [facility] INC T OFFICE 53618 ART BARNARD 9 9 MT STONER T VISIT SERV 25 FOUNDATIO MINUTES EMERGENCY 35616 MARLO SHAH, DEPT 9 9 EMERGENCY [facility] VISIT SERVICES HIGH SEVERITY& ASSOCIATE THREAT S [facility] - 9 9 [facility] OUT[facility] INC T EMERGENCY 98489 [facility] 9 9 [facility] DEPARTMEN INC T VISIT HIGH/URGE NT SEVERITY OFFICE 76746 LEANA DUEÑAS OUTPATIEN 9 9 CHELSY Headley T VISIT 15 MINUTES EMERGENCY 76889 [facility] 9 9 [facility] DEPARTMEN INC T VISIT MODERATE SEVERITY [facility] - 9 9 [facility] OUTPAT[facility] INC T EMERGENCY 88678 MARLO VIDES DEPT 9 9 EMERGENCY [facility] VISIT SERVICES ER R HIGH SEVERITY& ASSOCIATE THREAT S [facility] OFFICE 50496 LEANA DUEÑAS OUTPATIEN 9 9 CHELSY Headley T VISIT 15 MINUTES EMERGENCY 16941 [facility] 9 9 [facility] DEPARTMEN INC T VISIT LOW/MODER SEVERITY [facility] - 9 9 [facility] OUTPAT[facility]EN INC T OFFICE 58882 LEANA DUEÑAS OUTPATIEN 9 9 CHELSY Headley T VISIT 15 MINUTES OFFICE 86348 LEANA DUEÑAS OUTPATIEN 9 9 CHELSY VALENTINO W T VISIT 15 MINUTES OFFICE 94439 LEANA DUEÑAS OUTPATIEN 9 9 CHELSY VALENTINO W T VISIT 15 MINUTES OFFICE 74419 ART BARNARD 9 9 MEDICAL [place] T VISIT SERV 25 FOUNDATIO MINUTES OFFICE 59608 LEANA DUEÑAS OUTPATIEN 8 8 CHELSY VALENTINO W T VISIT 15 MINUTES OFFICE 87770 LEANA DUEÑAS OUTPATIEN 8 8 CHELSY VALENTINO W T VISIT 15 MINUTES EMERGENCY 68761 [facility] 8 8 [facility] DEPARTMEN INC T VISIT LIMITED/M [facility]OB [facility] - 8 8 [facility] OUTPATIEN INC T OFFICE 47389 ART BARNARD 8 8 MEDICAL [place] T VISIT SERV 25 FOUNDATIO MINUTES OFFICE 58345 LEANA DUEÑAS OUTPATIEN 8 8 CHELSY VALENTINO W T VISIT 15 MINUTES OFFICE 59589 LENAA DUEÑAS OUTPATIEN 8 8 CHELSY VALENTINO W T VISIT 15 MINUTES EMERGENCY 72376 [facility] 8 8 [facility] DEPARTMEN INC T VISIT HIGH/URGE NT SEVERITY HOSPITAL [facility] - 8 8 [facility] OUTPATIEN INC T EMERGENCY 51378 JENNIFER ROSARIO, 8 8 [facility] T VISIT ON MODERATE SEVERITY OFFICE 10954 LEANA DUEÑAS OUTPATIEN 8 8 CHELSY VALENTINO W T VISIT 15 MINUTES HOSPITAL [facility] - 8 8 [facility] T [facility] - 8 8 [facility] INC T OFFICE 36569 SAMANTA ENGLAND OUTPATIEN 8 8 CHUCK WOODS T VISIT 25 MINUTES OFFICE 15839 BUNNY LORD, CONSULTAT 8 8 [place] GRIFFITHS NEW/ESTAB FOUNDATIO PATIENT 60 MIN OFFICE 45186 LEANA DUEÑAS OUTPATIEN 8 8 CHELSY Headley T VISIT 15 MINUTES EMERGENCY 11338 [facility] 8 8 [facility] DEPARTMEN INC T VISIT LIMITED/M [facility] PROB [facility] - 8 8 [facility] OUTPATIEN INC T OFFICE 26438 ALLRAN ALLRAN CONSULTAT 8 8 JR EDWARD ION CHARLES F CHARLES F NEW/ESTAB PATIENT 60 MIN [facility]OSP[facility] - 8 8 [facility] T [facility] - 8 8 [facility] OUTPATIEN INC T EMERGENCY 35058 [facility] 8 8 [facility] DEPARTMEN INC T VISIT MODERATE SEVERITY OFFICE 58727 LEANA DUEÑAS OUTPATIEN 8 8 CHELSY Headley T VISIT 15 MINUTES EMERGENCY 67951 JENNIFER ROSARIO, 8 8 [facility] DEPARTMEN CORPORATI T VISIT ON HIGH/URGE NT SEVERITY [facility] - 8 8 [facility] OUTPAT[facility] INC T EMERGENCY 09702 [facility] 8 8 [facility] DEPARTMEN INC T VISIT LIMITED/M INOR PROB EMERGENCY 48036 JENNIFER CORTÉS, 8 8 [facility] DEPARTMEN CORPORATI O T VISIT ON LOW/MODER SEVERITY [facility] - 8 8 [facility] OUTPATIEN INC T EMERGENCY 75513 [facility] 8 8 [facility] DEPARTMEN INC T VISIT LOW/MODER SEVERITY OFFICE 29693 LEANA DUEÑAS OUTPATIEN 8 8 CHELSY Headley T VISIT 15 MINUTES HOSPITAL [facility] - 8 8 [facility] OUTPATIEN H[facility] T OFFICE 98885 LEANA DUEÑAS OUTPATIEN 8 8 CHELSY Headley T VISIT 15 MINUTES OFFICE 80638 ART LANDIN 8 8 KANNAN Franz T VISIT CARDIOLOG 40 Y MINUTES CONSULTAN T OFFICE 33613 LEANA DUEÑAS OUTPATIEN 8 8 CHELSY Headley T VISIT 15 MINUTES OFFICE 30640 LEANA DUEÑAS OUTPATIEN 8 8 CHELSY Headley T NEW 30 MINUTES INITIAL 29541 WOMEN'S ADAM CARIAS 8 8 [facility] PATIENT [facility] 8 8 [facility] OUTPATIEN INC T EMERGENCY 62073 [facility] 8 8 [facility] DEPARTMEN INC T VISIT HIGH/URGE NT SEVERITY OFFICE 20096 [facility] MCKEMIE OUTPATIEN 8 8 [facility], T VISIT INTERNAL KANNAN F 15 MED MINUTES HOSPITAL [facility] - 8 8 [facility] OUTPATIEN [facility] BRANDON - 8 8 [facility] OUTPATIEN INC T OFFICE 32698 [facility] MCKEMIE OUTPATIEN 8 8 ZACKERY , T VISIT 5 INTERNAL KANNAN F MINUTES MED OFFICE 80349 [facility] MCKEMIE OUTPATIEN 8 8 [facility], T VISIT INTERNAL KANNAN F 15 MED MINUTES EMERGENCY 07114 [facility] 8 8 [facility] DEPARTMEN INC T VISIT LIMITED/M INOR PROB [facility] - 8 8 [facility] OUTPATIEN INC T OFFICE 56034 [facility] SCOTTY OUTPATIEN 8 8 ZACKERY EDWARD T VISIT INTERNAL KANNAN F 15 [facility] BRANDON - 8 8 [facility] OUTPATIEN INC T EMERGENCY 28648 [facility] DEPT 8 8 [facility] VISIT [facility] HIGH SEVERITY& THREAT [facility] BRANDON - 8 8 [facility] OUTPATIEN INC T OFFICE 82050 SAMANTA ENGLAND, CONSULTAT 8 8 CHUCK TERAN NEW/ESTAB PATIENT 80 MIN OFFICE 17707 JAEL AMEZQUITAAT 8 8 [place] GRIFFITHS NEW/ESTAB FOUNDATIO PATIENT 40 MIN
--- OUTSIDE RECORDS SUMMARY | 2017-04-15 17:50 | External Medical Summary Rpt | CCD ---
Author Author , LEOBARDO Organization [facility] Address Unknown Phone [email or web address] Care Team Providers Care Remelter Name Role Phone JARED-YANIQUE MOH, Unavailable Unavailable [...] PATHOLOGY Unavailable Unavailable SERVICES, [facility] Un[facility] Unavailable [facility]available Unavailable [facility], [facility] Unavailable Unavailable [facility], [facility] COTTO BRO, COTTO Unavailable [...] Unavailable [facility] Unavailable Unavailable SERVICE, [facility] Unavailable Unavailable SERVICE, [facility] BRIZUELA JAM, BRIZUELA JAM Unavailable Unavailable SOMERS LAR, SOMERS LAR Unavailable Unavailable C SOPHIE LYONS MD Unavailable Unavailable [facility], C SOPHIE LYONS MD [facility], [facility] Unavailable Unavailable [facility] Unavailable [facility] & Unavailable Unavailable DUBILIER, [facility] MICHAEL TER, MICHAEL TER Unavailable Unavailable CARIAS AMBREEN, CARIAS Unavailable Unavailable AMBREEN RAN CARIAS J, Unavailable Unavailable RAN CARIAS J [facility] Unavailable Unavailable [facility] Unavailable Unavailable [facility], Unavailable Unavailable [facility] SURGIAL Unavailable Unavailable ASSOCIATE, [facility] Unavailable Unavailable LA, [facility] Unavailable Unavailable LA, [facility] SUMMERS, KHURRAM A, Unavailable Unavailable SUMMERS, KHURRAM A [facility] Unavailable Unavailable [facility] COOK KARLA, COOK KARLA Unavailable Unavailable CEDRICK JR PETR, CEDRICK Unavailable Unavailable JR PETR HOMER AYLA, Unavailable Unavailable HOMER AYLA HOMER, FREDO, Unavailable Unavailable HOMER, FREDO [facility], Unavailable Unavailable [facility] Unavailable Unavailable [facility], [facility] Unavailable Unavailable [facility]ENTER, [facility] DAVIES MAT, DAVIES Unavailable Unavailable [facility] Unavailable Unavailable [facility], [facility] JANELLE, JANELLE Unavailable Unavailable [facility]available [facility], [facility] ARVIZU DEIDRA, Unavailable Unavailable ARVIZU DEIDRA ARVIZU DEIDRA, Unavailable Unavailable ARVIZU DEIDRA GAFFNEY PJ, GAFFNEY PJ Unavailable Unavailable [facility] Unavailable Unavailable SPECIAL, [facility] Unavailable Unavailable [place], [facility] GARO FERNANDEZ, Unavailable Unavailable GARO FERNANDEZ [facility] Unavailable Unavailable LLC, [facility], [facility] Unavailable Unavailable [facility], [facility] Unavailable Unavailable [facility] Unavailable Unavailable [facility], [facility] FALLUJI NEZAR M, Unavailable Unavailable FALLUJI, NEZAR M MUST[facility]HA CECE, Unavailable Unavailable [facility] SIMBA JOHNSON C, Unavailable Unavailable SIMBA JOHNSON FOSTER DAYANA, FOSTER Unavailable Unavailable DAYANA FOSTER JAM, FOSTER Unavailable Unavailable JAM FERGUSON JAM, FERGUSON Unavailable Unavailable JAM FRYMRA, FRYMAN Unavailable Unavailable JR GINA MARTINEZ, Unavailable Unavailable JR GINA MARTINEZ VICTORIA, VICTORIA Unavailable Unavailable VICTORIA SHANTHI, VICTORIA Unavailable Unavailable SHANTHI JOSEPH KESSLER S, Unavailable Unavailable VICTORIA, JOSEPH S GAL THO, GAL THO Unavailable Unavailable MEJIA ROSARIO, Unavailable Unavailable MEJIA ROSARIO OSWALD, MANUEL OSWALD Unavailable Unavailable GISELLE SHEA, Unavailable Unavailable GISELLE SHEA HARRIES Unavailable Unavailable JANET CARIN GONZALES, HARRIES Unavailable Unavailable ERVIN RODRIGEZ, Unavailable Unavailable ERVIN DEL ROSARIO [facility] Unavailable Unavailable INC, [facility] Unavailable Unavailable HOSPITAL P, [facility] BARRY CARY HARVEY, Unavailable Unavailable BARRY RAMIREZ, VIJI RAMIREZ Unavailable Unavailable [facility], [facility]available Unavailable [facility], Unavailable Unavailable [facility] MARIANA GALEANA, Unavailable Unavailable MARIANA GALEANA [facility] Unavailable Unavailable CENTER, [facility] SHAKILA, HAYDEN SHAKILA Unavailable [facility] ROB ZAMUDIO, Unavailable Unavailable ROB ZAMUDIO KEKELLEN Unavailable Unavailable JANET KEKELLEN GONZALES [facility] Unavailable Unavailable ERVIN WICK, Unavailable Unavailable ERVIN HOFF [facility] Unavailable Unavailable LLC, D, [facility], [facility] Un[facility] Unavailable [facility], [facility] Unavailable Unavailable IMAGING ASS, [facility] POOL TOD, POOL TOD Unavailable Unavailable FORTINO SAENZ, , Unavailable Unavailable FORTINO Franz [...] Unavailable [facility] ERLIN CAMACHO, Unavailable Unavailable RELIN CAMACHO LEVY LIZ Unavailable Unavailable LUCIANA JR, LUCIANA JR Unavailable Unavailable LUCIANA JR DWI, LUCIANA Unavailable Unavailable JR DWI HUA CHOWDHURY, Unavailable Unavailable HUA CHOWDHURY [facility] Unavailable Unavailable [facility], [facility] Unavailable Unavailable [facility] Unavailable Unavailable [facility], [facility] Unavailable Unavailable [facility], [facility] M E D SUPPLIES, M E D Unavailable Unavailable SUPPLIES M E D [facility], M E D Unavailable Unavailable SUPPLIES SAL [facility], Unavailable Unavailable [facility] Unavailable Unavailable SERVICES, [facility] MARNI LUIS ALFREDO, Unavailable Unavailable [...] ILIRCHERYL JACOBSEN A, Unavailable Unavailable CHERYL REAL KEVIN CATRACHITO, KEVIN [...] [facility], Unavailable Unavailable [facility] Unavailable Unavailable EMERGENCY PH[facility], [facility] GARCIA RAY, GARCIA Unavailable Unavailable RAY NATACHA PHI, NATACHA PHI Unavailable Unavailable NATACHA, NICOLE A, Unavailable Unavailable NATACHA, NICOLE A [facility] Unavailable Unavailable HOSPITALS, [facility], Unavailable Unavailable [facility]ERY AND, USERY AND Unavailable Unavailable [facility], Unavailable Unavailable [facility] Kylee CORDERO, Unavailable Unavailable Kylee CORDERO [facility] Unavailable Unavailable [address], [facility] FRANCISCO SINGH Unavailable Unavailable MARCELINO DEIDRA, MARCELINO Unavailable Unavailable DEIDRA [facility] Unavailable Unavailable CENTER, [facility] MIKE KAPLAN, Unavailable Unavailable MIKE KAPLAN [facility] Unavailable Unavailable [facility] Unavailable Unavailable [facility] [place], [facility], [facility], Unavailable [facility]available [facility] Purpose Continuity of Care Document - 07-11-2007 through 2016 Problems Code Diagnosis DOS Provider Status N3020 OTHER 03-14-2017 [facility] CYSTITIS INC WITHOUT HEMATURIA I119 HYPERTENSIV 02-14-2017 [facility] E HEART [facility] DISEASE INC WITHOUT HEART FAILURE I6523 OCCLUSION & 02-14-2017 [facility] STENOSIS [facility] BILATERAL INC CAROTID ARTERIES [...] [facility] HOS[facility] HYPERTENSIO INC N I2510 ASHD [place] 01-18-2017 [facility] CORONARY [facility] ARTERY W/O INC ANGINA PECTORIS R011 CARDIAC 01-18-2017 [facility]UR [facility] UNSPECIFIED INC E119 TYPE 2 01-09-2017 [facility] DIABETES [facility] MELLITUS INC WITHOUT COMPLICATIO NS I10 ESSENTIAL 01-09-2017 [facility] PRIMARY [facility] HYPERTENSIO INC N [id number] CONTUSION 01-09-2017 [facility] OTHER PART [facility] OF HEAD INC INITIAL ENCOUNTER M1490CD SPRAIN 01-09-2017 [facility] UNSPECIFIED [facility] SITE RT INC KNEE INITIAL ENCNTR Z794 MUFFLER HAND 01-09-2017 [facility] CURRENT USE [facility] OF INSULIN INC U54617 OTHER LONG 01-09-2017 [facility] TERM [facility] CURRENT INC DRUG THERAPY J449 CHRONIC 01-03-2017 [facility] OBSTRUCTIVE [facility] PULMONARY INC DISEASE UNS R55 SYNCOPE AND 01-03-2017 [facility] COLLAPSE [facility] INC Z79316 PERSONAL 01-03-2017 [facility] HISTORY OF [facility] NICOTINE INC DEPENDENCE N3000 ACUTE 12-23-2016 [facility] CYSTITIS [facility] WITHOUT INC HEMATURIA Q92711 PAIN IN 11-06-2016 [facility] RIGHT LEG [facility] INC N42553 PAIN IN 11-06-2016 [facility] LEFT LEG [facility] INC J3089 OTHER 10-31-2016 [facility] [place] J310 CHRONIC 10-31-2016 [facility] RH[facility] [place] J4550 SEVERE 10-31-2016 [facility] [place] UNCOMPLICAT ED G59144 ALL[facility] TO 10-31-2016 [facility] OTHER FOODS [facility] [place] 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 ATHY LUMB RGN M549 DORSALGIA 10-23-2016 [facility] UNSPECIFIED [facility] INC R300 DYSURIA 10-19-2016 [facility] INC E039 HYPOTHYROID 10-05-2016 [facility] ISM [facility] UNSPECIFIED INC M7702 MEDIAL 09-19-2016 [facility] EPICONDYLIT [facility] IS LEFT INC ELBOW J040 ACUTE 2016 [facility] LARYNGITIS PHYSICIAN GROUP [id number] SPONDYLOSIS 09-15-2016 [facility] MYELOPATH/[facility] HOSPITALS ADICULOPATH Y THOR RGN J27831 SPONDYLOSIS 09-15-2016 [facility] MYELOPATH/[facility] HOSPITALS ADICULPATHY LS RGN M546 PAIN IN 09-15-2016 [facility] J069 ACUTE UPPER 09-12-2016 [facility] RESPIRATORY INC INFECTION UNSPECIFIED Z93424 PAIN IN 09-08-2016 [facility] LEFT ELBOW PHYSICIANS GROUP J40 BRONCHITIS 09-06-2016 [facility] NOT N EMERGENCY SPECIFIED PHYS ACUTE OR CHRONIC R05 COUGH 09-06-2016 [facility] M542 CERVICALGIA 08-29-2016 [facility] R51 HEADACHE 08-29-2016 [facility] [id number] CONTUSION 08-29-2016 [facility] OF SCALP PHYSICIANS, INITIAL PLLC ENCOUNTER O305OIQ UNSPECIFIED 08-29-2016 [facility] INJURY OF MEDICAL NECK IMAGING ASS INITIAL ENCOUNTER O90WFBQ UNSPECIFIED 08-29-2016 [facility] INITIAL SERVICE ENCOUNTER H23526 PRIMARY 08-22-2016 [facility] OSTEOARTHRI MEDICAL TIS LEFT IMAGING ASS ELBOW K8689 OTHER 08-15-2016 [facility] SPECIFIED PHYSICIANS, DISEASES OF PLLC PANCREAS R1084 GENERALIZED 08-15-2016 [facility] ABDOMINAL PHYSICIANS, PAIN PLLC R8299 OTHER 08-07-2016 [facility] ABNORMAL [facility] FINDINGS IN INC URINE G70651 MIGRAINE 08-04-2016 [facility] UNS PHYSICIANS, INTRACTABLE PLLC W/STATUS MIGRAINOSUS R72820 UNSPECIFIED 08-04-2016 [facility] WITH ACUTE LLC EXACERBATIO N U4666MP CONTUSION 08-04-2016 [facility] EYEBALL & PHYSICIANS, ORBITAL PLLC TISSUES RT EYE INIT V66696 ELEVATED 07-26-2016 [place] WHITE BLOOD [facility] CELL COUNT HOSPITAL P UNSPECIFIED K529 NONINFECTIV 07-14-2016 [facility] E [facility] GASTROENTER INC ITIS & COLITIS UNS I509 HEART 07-12-2016 [place] FAILURE [facility] UNSPECIFIED HOSPITAL P R0789 OTHER CHEST 07-12-2016 [facility] PAIN PHYSICIANS, PLLC I272 OTHER 07-05-2016 [facility] SECONDARY [facility] PULMONARY INC HYPERTENSIO N I5030 UNSPECIFIED 07-05-2016 [facility] DIASTOLIC [facility] CONGESTIVE INC HEART FAILURE I959 HYPOTENSION 07-05-2016 [facility] UNSPECIFIED INC E109 TYPE 1 07-04-2016 [place] DIABETES [facility] MELLITUS HOSPITAL P WITHOUT COMPLICATIO NS I9589 OTHER 07-04-2016 [facility] HYPOTENSION PHYSICIANS, PLLC R400 SOMNOLENCE 07-04-2016 [facility] PHYSICIANS, PLLC G8929 OTHER 06-29-2016 [facility] CHRONIC [facility] PAIN INC M4807 SPINAL 06-29-2016 [facility] STENOSIS [facility] LUMBOSACRAL INC REGION R042 HEMOPTYSIS 06-28-2016 [facility] R918 OTHER 06-28-2016 [facility] NONSPECIFIC [facility] ABNORMAL INC FINDING OF LUNG FIELD X02364 TYPE 2 06-21-2016 [facility] DIABETES [facility] MELLITUS INC W/HYPOGLYCE NIKOLAY W/O COMA M5432 SCIATICA 06-13-2016 [facility] LEFT SIDE PHYSICIANS, PLLC M5442 LUMBAGO 06-13-2016 [facility] WITH PHYSICIANS, SCIATICA [facility] LEFT SIDE X31514 TYPE 2 06-12-2016 [facility] MELLITUS MEDICAL WITH FOOT EQUIPME ULCER P15042 TYPE 2 06-12-2016 [facility] MELL[facility]US MEDICAL WITH OTHER EQUIPME SKIN ULCER G894 CHRONIC 06-12-2016 [facility] PAIN PHYSICIANS SYNDROME GROUP M4307 SPONDYLOLYS 06-12-2016 [facility] IS PHYSICIANS LUMBOSACRAL GROUP REGION X28975 PERSONAL 06-12-2016 [facility] HISTORY OF PHYSICIANS OTHER GROUP SPECIFIED CONDITIONS E876 HYPOKALEMIA 06-06-2016 [facility] PH[facility]ICIANS, [facility] K5900 CONSTIPATIO 06-06-2016 [facility] N MEDICAL UNSPECIFIED IMAGING ASS N200 CALCULUS OF 06-06-2016 [facility] N390 URINARY 06-06-2016 [facility] TRACT PHYSICIANS, INFECTION [facility] SITE NOT SPECIFIED R531 WEAKNESS 06-06-2016 [facility] R634 ABNORMAL 06-06-2016 [facility] WEIGHT LOSS [facility] J050 ACUTE 05-18-2016 [facility] OBSTRUCTIVE PHYSICIANS, LARYNGITIS [facility] CROUP L299 PRURITUS 05-18-2016 [facility] UNSPECIFIED PHYSICIANS, PLLC M5127 OTH 05-17-2016 [facility] INTERVERTEB MEDICAL RAL DISC IMAGING ASS DISPLACEMEN T LS REGION M5136 OTH 05-17-2016 [facility] 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 M545 LOW BACK 05-17-2016 [facility] PAIN MEDICAL IMAGING ASS C75908 PAIN IN 05-13-2016 [facility] RIGHT KNEE MEDICAL IMAGING ASS H8394PY CONTUSION 05-13-2016 [facility] OF RIGHT PHYSICIANS, KNEE PLLC INITIAL ENCOUNTER I89257 MIGRAINE 05-09-2016 [facility] W/O AURA PHYSICIANS, NOT INTRACT PLLC W/O STAT MIGRAIN H53223 PAIN IN 05-08-2016 [facility] RIGHT HIP [facility] INC B351 TINEA 04-13-2016 [place] UNGUIUM FOOT & ANKLE CE I7090 UNSPECIFIED 04-13-2016 [place] FOOT & ATHEROSCLER ANKLE CE OSIS D66904 PAIN IN 04-13-2016 [facility] UNSPECIFIED FOOT & LIMB ANKLE CE R0781 PLEURODYNIA 03-31-2016 [facility] R52 PAIN 03-31-2016 [facility] UNSPECIFIED AMBULANCE SERVICE L30945M CONTUSION 03-31-2016 [facility] UNS FRONT PHYSICIANS, WALL THORAX PLLC INITIAL ENCNTR D442TJQ UNSPECIFIED 03-31-2016 [place] INJURY OF MEDICAL THORAX IMAGING ASS INITIAL ENCOUNTER L0291 CUTANEOUS 03-20-2016 [facility] ABSCESS [facility] UNSPECIFIED INC S68931P CONTUSION 03-17-2016 [facility] LEFT FRONT PHYSICIANS, WALL THORAX PLLC INITIAL ENC F68507F CONTUSION 03-17-2016 [facility] OF LEFT PHYSICIANS, SHOULDER PLLC INITIAL ENCOUNTER G56850 NON-PRSS 03-14-2016 [facility] CHRN ULCER PHYSICIANS SKIN OTH GROUP SITES UNS SEVERITY R73146 CELLULITIS 03-09-2016 [facility] OF [facility] ABDOMINAL INC WALL U4704PI OTHER 03-09-2016 [facility] COMPLICATIO PHYSICIANS, NS PROC NEC PLLC INITIAL ENCOUNTER E049 NONTOXIC 02-17-2016 [facility] GOITER PHYSICIANS UNSPECIFIED GROUP R1310 DYSPHAGIA 02-17-2016 [facility] UNSPECIFIED PHYSICIANS GROUP [id number] UNS FOREIGN 02-17-2016 [facility] BODY PHYSICIANS LARYNX CAUS GROUP OTH INJURY INIT ENC I76778 PAIN IN 02-10-2016 [facility] LEFT HIP MEDICAL IMAGING ASS J658EJZ STRAIN 02-10-2016 [facility] MUSCLE FASC [facility] & TENDON INC NECK LEVL INIT ENC B6886PG CONTUSION 02-10-2016 [facility] OF LEFT HIP [facility]OS[facility] INITIAL INC ENCOUNTER T83445W UNSPECIFIED 02-10-2016 [facility] INJURY MEDICAL LEFT HIP IMAGING ASS INITIAL ENCOUNTER A32765 UNSPECIFIED 02-07-2016 [facility] KERATITIS LEFT EYE R221 LOCALIZED 02-05-2016 [facility] SWELLING [facility] MASS AND INC LUMP NECK R4702 DYSPHASIA 02-03-2016 [facility] INC R5383 OTHER 06-15-2015 [facility] FATIGUE [facility] INC L69614E CONTUSION 06-03-2015 [facility] RT FRONT PHYSICIANS, WALL THORAX PLLC INITIAL ENCOUNTER I27275 PAIN IN 05-29-2015 [facility] RIGHT WRIST MEDICAL IMAGING ASS Z23393 PAIN IN 05-29-2015 [facility] UNSPECIFIED MEDICAL HIP IMAGING ASS P32720 PAIN IN 05-29-2015 [facility] LEFT KNEE MEDICAL IMAGING ASS N7757EV CONTUSION 05-29-2015 [facility] OF NOSE MEDICAL INITIAL IMAGING ASS ENCOUNTER B24494C UNSPECIFIED 05-29-2015 [facility] SPRAIN [facility] RIGHT WRIST INC INITIAL ENCOUNTER J1433TA SPRAIN 05-29-2015 [facility] UNSPECIFIED [facility] SITE LT INC KNEE INITIAL ENCNTR Z043 ENCOUNTER 05-29-2015 [facility] EXAM & MEDICAL OBSERVATION IMAGING ASS FOLLOW OTH ACCIDENT E1121 TYPE 2 05-25-2015 [place] DIABETES [facility] MELLITUS HOSPITAL P W/DIABETIC NEPHROPATHY I96 GANGRENE 05-25-2015 [facility] NOT ANESTH OF ELSEWHERE THE BLUE CLASSIFIED R22006 NON-PRSS 05-25-2015 [facility] TORO & OTH PART RT DUBILIER FT W/UNS SEVERITY W70315 OTHER ACUTE 05-25-2015 [facility] OSTEOMYELIT HOSPITAL P IS RIGHT ANKLE AND FOOT Z9111 PATIENTS 05-25-2015 [place] [facility] P DIETARY REGIMEN D16564 NON-PRSS 05-24-2015 [facility] MEDICAL OTH PART LT IMAGING ASS FOOT UNS SEVERITY M2011 HALLUX 05-24-2015 [facility] VALGUS PHYSICIANS, ACQUIRED [facility] RIGHT FOOT 7231 CERVICALGIA 03-06-2015 [facility] 7802 SYNCOPE AND 03-06-2015 [facility] COLLAPSE MEDICAL IMAGING ASS 7840 HEADACHE 03-06-2015 [facility] 63084 INJURY OF 03-06-2015 [facility] FACE AND MEDICAL NECK OTHER IMAGING ASS AND UNSPECIFIED 94174 ACUTE PAIN 03-05-2015 [facility] DUE TO AMBULANCE TRAUMA SERVICE 08024 PAIN IN 03-05-2015 [facility] JOINT MEDICAL PELVIC IMAGING ASS REGION AND THIGH 8470 NECK SPRAIN 03-05-2015 [facility] AND STRAIN PHYSICIANS, PLLC 920 CONTUSION 03-05-2015 [facility] OF FACE PHYSICIANS, SCALP AND PLLC NECK EXCEPT EYE E8889 UNSPECIFIED 03-05-2015 [facility] SERV[facility] 7881 DYSURIA 02-24-2015 [place] [address] DIAB W/O 02-09-2015 [facility] COMP TYPE I HOME [JUV] NOT MEDICAL STATED EQUIPME UNCNTRL 57846 OBSTRUCTIVE 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 EQUIPME 28022 EXTRINSIC 02-09-2015 [facility] ASTHMA, HOME UNSPECIFIED MEDICAL EQUIPME 97901 DIAB W/OTH 02-03-2015 [facility] MANIFESTS [facility] TYPE I INC [JUV] NOT UNCNTRL 4019 UNSPECIFIED 02-03-2015 [facility] ESSENTIAL [facility] HYPERTENSIO INC N 4139 OTHER AND 02-03-2015 [facility] UNSPECIFIED [facility] ANGINA INC PECTORIS 496 CHRONIC 02-03-2015 [facility] AIRWAY [facility] OBSTRUCTION INC NEC 15279 OTHER 02-03-2015 [facility] MALAISE AND [facility] FATIGUE INC V5867 LONG-TERM 02-03-2015 [facility] USE OF [facility] INSULIN INC 7906 OTHER 02-01-2015 [facility] ABNORMAL [facility] BLOOD INC CHEMISTRY V7389 SPECIAL 02-01-2015 [facility] SCREENING [facility] EXAMINATION INC OTH SPEC VIRAL DZ 7295 PAIN IN 01-06-2015 [facility] SOFT MEDICAL TISSUES OF IMAGING ASS LIMB 40166 SWELLING OF 01-06-2015 [facility] LIMB MEDICAL IMAGING ASS 7823 EDEMA 01-06-2015 [facility] INC 51601 CHEST PAIN 12-31-2014 [facility] UNSPECIFIED MEDICAL IMAGING ASS 08527 PAIN IN 12-17-2014 [place] JOINT, MEDICAL SHOULDER IMAGING ASS REGION 68678 PAIN IN 12-17-2014 [place] JOINT, MEDICAL FOREARM IMAGING ASS 52899 PAIN IN 12-17-2014 [place] JOINT, MEDICAL LOWER LEG IMAGING ASS 8408 SPRAIN&STRA 12-17-2014 [facility] IN OTH SPEC [facility] SITES INC SHOULDER&UP PER ARM 8409 SPRAIN&STRA 12-17-2014 [facility] IN UNSPEC PHYSICIANS, SITE PLLC SHOULDER&UP PER ARM 82541 SPRAIN AND 12-17-2014 [facility] STRAIN OF [facility] UNSPECIFIED INC SITE OF WRIST 8449 SPRAIN&STRA 12-17-2014 [facility] IN OF [facility] UNSPECIFIED INC SITE OF KNEE&LEG 9221 CONTUSION 12-17-2014 [facility] OF CHEST [facility] WALL INC 00711 OTHER 12-17-2014 [place] INJURY OF MEDICAL CHEST WALL IMAGING ASS 25077 OTHER 12-17-2014 [place] INJURY OF MEDICAL OTHER SITES IMAGING ASS OF TRUNK 9592 INJURY 12-17-2014 [place] OTHER&UNSPE MEDICAL CIFIED IMAGING ASS SHOULDER&UP PER ARM 9593 INJURY 12-17-2014 [place] OTHER&UNSPE MEDICAL CIFIED IMAGING ASS ELBOW FOREARM&WRI ST 9597 INJURY 12-17-2014 [place] OTHER&UNSPE MEDICAL CIFIED KNEE IMAGING ASS LEG ANKLE&FOOT V714 OBSERVATION 12-17-2014 [facility] FOLLOWING MEDICAL OTHER IMAGING ASS ACCIDENT 5718 OTHER 12-16-2014 [facility] C LIVER DISEASE 26808 ABDOMINAL 12-16-2014 [facility] PAIN RIGHT SERV UPPER [facility] EMERGENC[facility] DEPARTMENT QUADRANT 7892 SPLENOMEGAL 12-16-2014 [facility] Y SERV [facility] 2512 HYPOGLYCEMI 11-25-2014 [facility] A, [facility] UNSPECIFIED INC 17966 SHORTNESS 11-11-2014 [facility]ICAL OF BREATH SERV [facility] 73104 DIAB 10-23-2014 [facility] W/NEURO [facility] MANIFESTS INC TYPE II/UNS TYPE UNCNTRL 67462 UNSPECIFIED 10-23-2014 [facility] CELLULITIS [facility] AND INC ABSCESS OF TOE 34577 ULCER OF 10-23-2014 [facility] OTHER PART PATHOLOGY OF FOOT SERVICES 7224 DEGENERATIO 10-17-2014 [place] N OF MEDICAL CERVICAL IMAGING ASS INTERVERTEB RAL DISC 00096 DIAB W/O 09-27-2014 [facility] COMP TYPE [facility] II/UNS NOT INC STATED UNCNTRL 2724 OTHER AND 09-27-2014 [facility] UNSPECIFIED [facility] INC HYPERLIPIDE NIKOLAY 68698 OBESITY, 09-27-2014 [place] UNSPECIFIED [place] INTERNAL MED 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 INC UNSPECIFIED 64757 ALTERED 09-27-2014 [facility] MENTAL [place] STATUS INTERNAL MED 7862 COUGH 09-27-2014 [facility] 77767 POISONING 09-27-2014 [place] BY OPIUM , [place] UNSPECIFIED INTERNAL MED E8502 ACCIDENTAL 09-27-2014 [facility] P ATED NARCOTICS 5180 PULMONARY 09-26-2014 [facility] 57492 FEVER 09-26-2014 [facility] 7869 OTH 09-26-2014 [facility] RESPIRATORY SYSTEM&CHES T V053 NEED PROPH 09-07-2014 [facility]&INOCUL SERV AT AGAINST [facility] VIRAL HEP 01089 CONTUSION 09-03-2014 [facility] P 93205 CONTUSION 09-03-2014 [facility] P 61006 CLOSED 05-01-2014 [facility] FRACTURE PHYSICIANS METACARPAL GROUP BONE SITE UNSPECIFIED E8888 OTHER FALL 04-28-2014 [facility] V1582 PERS HX 04-28-2014 [facility] TOBACCO USE [facility] PRESENTING INC HAZARDS HEALTH 2104 BENIGN 04-27-2014 [facility], NOSE NEOPLASM AND THROAT OTHER&UNSPE SPECIAL CIFIED PARTS MOUTH 70064 DYSFUNCTION 04-27-2014 E[facility], NOSE OF AND THROAT EUSTACHIAN SPECIAL TUBE 97035 OTOGENIC 04-27-2014 E[facility], NOSE PAIN AND THROAT SPECIAL 25066 DYSPHAGIA 04-27-2014 EAR, NOSE UNSPECIFIED AND THROAT SPECIAL 4770 ALLERGIC 04-13-2014 [facility] RHINITIS [facility]FR[facility] DUE TO POLLEN 4778 ALLERGIC 04-13-2014 [facility] DUE TO OTHER ALLERGEN 4772 ALLERGIC 04-06-2014 [facility] RHINITIS LUSI ALFREDO DUE TO ANIMAL HAIR AND DANDER 68192 CHRONIC 04-06-2014 [facility] OBSTRUCTIVE LU[facility]FR[facility] ASTHMA UNSPECIFIED 41333 SENSORINEUR 04-03-2014 EAR, NOSE AL HEARING AND THROAT LOSS SPECIAL BILATERAL 2728 OTHER 03-19-2014 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 04611 DIAB 03-16-2014 [facility] TYPE II/UNS NOT UNCNTRL 5939 UNSPECIFIED 03-03-2014 [facility]ORDER N EMERGENCY OF KIDNEY PHYS AND URETER 5990 URINARY 03-03-2014 [facility] EMERGENCY INFECTION PHYS SITE NOT SPECIFIED 22684 OTHER 01-28-2014 [facility] DISORDER OF STOMACH AND DUODENUM 5715 CIRRHOSIS 01-28-2014 [facility] WITHOUT MENTION OF ALCOHOL 5723 PORTAL 01-28-2014 [facility] N V7651 SPECIAL 01-28-2014 [facility] NE[facility]LAS[facility] COLON 2168 BENIGN [...] GOITER, 12-23-2013 [facility] 24322 ABDOMINAL 12-15-2013 [facility] PAIN OTHER [facility] SPECIFIED INC SITE 86570 OTHER ACUTE 12-01-2013 [facility] 92431 ANEURYSM OF 12-01-2013 [place] [facility] SPLEN[facility] SERV ARTERY [facility]OUND[facility] 5778 OTHER 12-01-2013 [place] [facility] SPECIF[place] SERV DISEASE OF FOUNDATIO PANCREAS 22370 DIARRHEA 12-01-2013 [facility] 94637 ABDOMINAL 12-01-2013 [place] [facility], [place] UNSPECIFIED FOUNDATIO SITE 7948 NONSPECIFIC 12-01-2013 [place] [facility] ABNORMAL SERV RESULTS FOUND[facility] LIVR FUNCTION STUDY V762 SCREENING 11-19-2013 [facility] MALIGNANT NEOPLASM OF THE CERVIX 10417 OTHER CHEST 11-08-2013 [facility]ERG[facility]Y PHYS 29839 OTHER 11-08-2013 [facility] NONSPECIFIC MEDICAL ABNORMAL IMAGING ASS FINDING OF LUNG FIELD 7242 LUMBAGO 09-23-2013 [facility] V571 OTHER 09-23-2013 [facility] PHYSICAL [facility] THERAPY INC V5869 LONG-TERM 09-17-2013 [facility] (CURRENT) [facility] USE OF INC OTHER MEDICATIONS 7226 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 UNSPEC 84933 DEGEN 09-11-2013 [place] [facility] 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 93339 MORBID 08-25-2013 [place] [facility]ITY [facility] P 4409 GENERALIZED 08-25-2013 [place] [facility] UNSPECIFIED IMAGING ASS ATHEROSCLER OSIS 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 STRICTURE 08-25-2013 [place] OF [facility] 4830 PNEUMONIA 08-25-2013 [place] DUE TO [facility] P PNEUMONIAE 96337 SCOLIOSIS , 08-25-2013 [place] IDIOPATHIC [facility]ICAL IMAGING ASS V8541 BODY MASS 08-25-2013 [facility] 40.0-44.9 [facility] P ADULT 4829 UNSPECIFIED 08-23-2013 [facility] BACTERIAL EMERGENCY PNEUMONIA SERVICES 51990 OTHER 08-23-2013 [place] DISEASES OF MEDICAL LUNG NOT IMAGING ASS ELSEWHERE CLASSIFIED 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 3540 CARPAL 08-20-2013 [facility] MITCH 7238 OTHER 08-20-2013 [facility] SYNDROMES NEUROLOGY AFFECTING CENTER MITCH CERVICAL REGION 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 62529 SPINAL STEN 08-18-2013 [place] LUMB REG MEDICAL W/O IMAGING ASS NEUROGENIC CLAUDICATIO N 8404 ROTATOR 07-26-2013 [facility] CUFF SPRAIN [facility] STRAIN INC 5989 UNSPECIFIED 05-06-2013 [place] URETHRAL [facility] STRICTURE [facility] P 63408 UNSPECIFIED 04-29-2013 [place] [facility]RITIS [facility] P 5952 OTHER 04-08-2013 [place] CHRONIC [facility] CYSTITIS [facility] P 55150 DIAB W/O 04-03-2013 [facility] MENTION [facility] COMP TYPE I INC [JUV TYPE] UNCNTRL 17694 UNSPECIFIED 04-03-2013 [facility] EMERGENCY CONSTIPATIO SERVICES N 22883 OTHER 03-31-2013 [facility] CHRONIC [facility] ALLERGIC CONJUNCTIVI TIS 80506 NUCLEAR 03-18-2013 [facility] 3669 UNSPECIFIED 03-18-2013 [facility] CATARACT [facility] V148 PERSONAL 03-18-2013 [facility] HISTORY [facility] ALLERGY OTH INC SPEC MEDICINAL AGTS 2689 UNSPECIFIED 02-25-2013 [facility] VITAMIN D [facility] DEFICIENCY 4919 UNSPECIFIED 02-04-2013 [facility] CHRONIC [facility] BRONCHITIS 18351 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 [facility] 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[facility] STATUS ASTHMATICUS 04983 MIGRAINE 01-30-2013 [facility] UNSP W/O VALLEY INTRACT W/O INTERNAL STATUS MED MIGRAINOSUS 54537 ABDOMINAL 01-23-2013 [facility], LEFT PHYSICIANS LOWER LA QUADRANT 460 ACUTE 01-22-2013 [facility] NASOPHARYNG VALLEY ITIS INTERNAL MEDI 23625 VISUAL 01-14-2013 [facility] 3688 OTHER 01-14-2013 [facility] SPECIFIED EYE VISUAL INSTITUTE DISTURBANCE S 490 BRONCHITIS 12-28-2012 [facility] NOT VALLEY SPECIFIED INTERNAL ACUTE OR MED CHRONIC 5110 PLEURISY 12-20-2012 [facility] WITHOUT [facility] MENTION INC EFFUS/[place] [address] PAINFUL 12-20-2012 [facility] RESPIRATION VALLEY INTERNAL MED 42117 DIAB W/O 12-17-2012 M E D MENTION SUPPLIES COMP TYPE II/UNS TYPE UNCNTRL 49009 URINARY 11-27-2012 [facility] FREQUENCY [facility]LEY INTERNAL MEDI 6279 UNSPECIFIED 11-13-2012 [facility] HOSP MENOPAUSAL& INC POSTMENOPAU HERBERT DISORDER 59282 PATELLAR 11-13-2012 [facility] TENDINITIS PHYSICIANS GROUP 21570 ACHILLES 11-13-2012 [facility] OR HOME TENDINITIS MEDICAL EQUIPME 40267 OTHER 11-13-2012 [facility] SYNOVITIS PHYSICIANS AND GROUP TENOSYNOVIT IS 7226 UNSPECIFIED 11-13-2012 [facility] DISORDER PHYSICIANS OF MUSCLE GROUP LIGAMENT&FA SCIA 50676 DISORDER OF 11-13-2012 [facility] BONE AND MEDICAL CARTILAGE IMAGING ASS UNSPECIFIED V4981 ASYMPTOMATI 11-13-2012 [place] C MEDICAL POSTMENOPAU IMAGING ASS HERBERT STATUS 61192 OSTEOARTHRO 11-07-2012 [facility] UNSPEC MEDICAL WHETHER IMAGING ASS GEN/LOC LOWER LEG 4739 UNSPECIFIED 10-17-2012 [facility] SINUSITIS [place] INTERNAL MEDI 6931 DERMATITIS 09-30-2012 [facility] DUE TO FOOD [facility] TAKEN INTERNALLY V727 DIAGNOSTIC 09-30-2012 [facility] SKIN AND [facility] SENSITIZATI ON TESTS 22721 URGE 08-29-2012 [facility] P 2449 UNSPECIFIED 08-28-2012 [facility] [place] HYPOTHYROID INTERNAL ISM MEDI 52577 OTHER 08-23-2012 [facility] SPECIFIED MEDICAL DISORDERS IMAGING ASS OF BLADDER V7612 OTHER 08-23-2012 [facility] SCREENING MEDICAL MAMMOGRAM IMAGING ASS 5932 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 [facility]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 7533 OTHER 08-09-2012 [place] 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 0419 BACTERIAL 08-08-2012 [facility] INFECTION [place] UNSPECIFIED INTERNAL CCE & UNS MED SITE 76728 DEHYDRATION 08-08-2012 [facility] [place] INTERNAL MED V7231 ROUTINE 08-05-2012 [facility] EXAMINATION SONIA 4720 CHRONIC 08-02-2012 [facility] RHINITIS VALLEY INTERNAL MEDI 30162 MASTODYNIA 08-02-2012 [facility] INTERNAL MEDI 4011 ESSENTIAL 07-09-2012 [facility] HYPERTENSIO P[facility] N, BENIGN 7964 OTHER 07-05-2012 [facility] CLINICAL FINDING 60467 COR 07-01-2012 [facility]OSLERO [facility] UNSPEC TYPE VESSEL IVANOF BAY/ELSA T 00188 UNSPECIFIED 06-19-2012 [facility] VIRAL EMERGENCY INFECTION SERVICES IN CCE & UNS SITE 06702 CONTUSION 06-14-2012 [facility] 9233 CONTUSION 06-14-2012 [facility] 29229 CONTUSION 06-14-2012 [facility] 9599 INJURY 06-14-2012 [facility] AND MEDICAL UNSPECIFIED IMAGING ASS UNSPECIFIED SITE 4659 ACUTE URIS 06-05-2012 [facility] UNSPECIFIED CENTER SITE 8489 UNSPECIFIED 06-05-2012 [facility] SPRAIN AND CENTER STRAIN V8542 BODY MASS 05-23-2012 [facility] 45.0-49.9 CENTER ADULT 77383 ATROPHIC 05-20-2012 [facility] GASTRITIS SURGIAL WITHOUT ASSOCIATE MENTION OF HEMORRHAGE 53608 NAUSEA WITH 05-20-2012 [facility] VOMITING SURGIAL ASSOCIATE V1279 PERSONAL 05-20-2012 [facility] HISTORY OTH PHYS SURG DISEASES CTR DIGESTIVE DISEASE 4660 ACUTE 05-05-2012 [facility] BRONCHITIS N EMERGENCY PHYS 69087 ASTHMA, 05-05-2012 [facility] UNSPECIFIED N EMERGENCY , PHYS UNSPECIFIED STATUS 1129 CANDIDIASIS 05-03-2012 [facility] UNSPECIFIED CENTER SITE 4619 ACUTE 05-03-2012 [facility] SINUSITIS, HEALTHCARE UNSPECIFIED CENTER V0481 NEED 04-17-2012 [facility] PROPHYLACTI [facility] C CENTER VACCINATION &INOCULATIO N FLU 08060 ESOPHAGEAL 04-16-2012 [facility] REFLUX SURGIAL ASSOCIATE 5559 REGIONAL 04-16-2012 [facility] ENTERITIS SURGIAL OF ASSOCIATE UNSPECIFIED SITE 37961 POLYURIA 03-29-2012 [facility] [employer] 36823 UNSPECIFIED 03-18-2012 [facility] VAGINITIS PSC AND VULVOVAGINI TIS 6235 LEUKORRHEA 03-18-2012 [facility] NOT PSC SPECIFIED INFECTIVE 6248 OTH SPEC 03-17-2012 INPATIENT NONINFLAMMA CARE, PLLC TORY DISORDER VULVA&PERIN EUM 35356 LOSS OF 02-20-2012 C SOPHIE WEIGHT ELOY SANCHEZ PSC 62056 UNSPECIFIED 02-14-2012 [facility] ARTHROPATHY INTERNAL MULTIPLE MEDI SITES 12004 ABDOMINAL 02-14-2012 [facility] PAIN, VALLEY GENERALIZED INTERNAL MEDI V741 SCREENING 02-14-2012 [facility] EXAMINATION VALLEY FOR INTERNAL PULMONARY MEDI TUBERCULOSI S 24329 ABDOMINAL 02-07-2012 [facility] PAIN, LEFT [facility] UPPER INC QUADRANT 57253 VASCULAR 01-06-2012 [facility] ES OF CONJUNCTIVA 47812 SWELLING OR 01-06-2012 [facility] EYE 29696 REDNESS [place] 01-06-2012 [facility]YE 89509 OTHER 01-06-2012 [place] MEDICAL DISEASES OF SERV NASAL FOUNDATIO CAVITY AND SINUSES 0539 HERPES 12-14-2011 [facility] ZOSTER VALLEY WITHOUT INTERNAL MENTION OF MED COMPLICATIO N 7891 HEPATOMEGAL 12-07-2011 [facility] Y [facility] ASS 21278 PAIN IN 11-11-2011 [facility] JOINT, VALLEY ANKLE AND INTERNAL FOOT MED 72116 TRANSIENT 11-10-2011 [facility] ARTHROPATHY [facility] ANKLE AND INC FOOT 6826 CELLULITIS 10-19-2011 [facility] AND ABSCESS VALLEY OF LEG INTERNAL EXCEPT FOOT MED 4780 HYPERTROPHY 10-12-2011 [facility] OF NASAL [facility]FR[facility]O TURBINATES 9164 HIP THI 10-03-2011 [facility] LEG&ANK VALLEY INSECT BITE INTERNAL MED NONVENOMOUS W/O INF E9064 BITE OF 10-03-2011 [facility] NONVENOMOUS VALLEY ARTHROPOD INTERNAL MED 09410 TRANSIENT 09-25-2011 [facility] VISUAL LOSS [facility] INC 51608 SCOTOMA 09-25-2011 [facility] INVOLVING [facility] CENTRAL INC AREA IN VISUAL FIELD 42054 DISORDERS 09-25-2011 [facility] VISUAL [facility] CORTEX INC ASSOCIATED W/NEOPLASMS 7842 SWELLING 09-25-2011 [facility] MASS OR MEDICAL LUMP IN IMAGING ASS HEAD AND NECK 92361 BORDERLINE 09-15-2011 [facility] GLAUC OPEN JAM ANGLE BL FINDINGS LOW RSK 48371 CHRONIC 09-07-2011 [facility] OBSTRUCTIVE [facility]O 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EXACERBATIO N 75822 OBSTRUCTIVE 08-30-2011 [facility] CHRONIC VALLEY BRONCHITIS INTERNAL WITH MED EXACERBATIO N 4293 CARDIOMEGAL 08-17-2011 [facility] Y [facility]ICAL IM[facility] ASS 81548 CHRONIC 08-09-2011 [facility] TENSION JAM TYPE HEADACHE 52412 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-2011 [facility] 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 73610 DIAB 06-25-2011 [facility] W/RENAL [facility] MANIFESTS INC TYPE I [JUV TYPE] UNCNTRL 72809 OBST 06-25-2011 [facility] CHRONIC [facility] BRONCHITIS INC W/ACUTE BRONCHITIS 55136 NAUSEA 06-25-2011 [facility] EMERGENCY SERVICES 7841 THROAT PAIN 06-06-2011 [place] [facility] SERV [place] 80135 OTHER 05-25-2011 [facility] SYMPTOMS [facility] INVOLVING INC HEAD AND NECK 4721 CHRONIC 05-15-2011 E[facility], NOSE PHARYNGITIS AND THROAT SPECIAL 462 ACUTE 05-09-2011 [facility] PHARYNGITIS [place] INTERNAL MED 28428 UNSPECIFIED 04-12-2011 [facility]ANS ARTHROPATHY LA ANKLE AND FOOT 6989 UNSPECIFIED 03-28-2011 [facility] PRURITIC [facility] DISORDER INC 6929 CONTACT 03-27-2011 DERMATOLOGY DERMATITIS& OTHER CONSULTANTS ECZEMA DUE PSC UNSPEC CAUSE 66903 WHEEZING 03-20-2011 [facility] 7391 NONALLOPATH 03-08-2011 [facility] JANET IC LESION OF CERVICAL REGION NEC 4548 VARICOSE 02-23-2011 [facility]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 SERVICES EXTREMITIES W/OTH COMPS 7827 SPONTANEOUS 02-23-2011 [facility] ECCHYMOSES [facility] 15727 CONTUSION 02-23-2011 [facility] OF THIGH EMERGENCY SERVICES 4439 UNSPECIFIED 02-17-2011 [facility] PERIPHERAL MEDICAL VASCULAR IMAGING ASS DISEASE 1101 DERMATOPHYT 02-10-2011 [facility] MAR OSIS OF NAIL 49752 DIAB 02-10-2011 [facility] W/NEURO MANIFESTS TYPE II/UNS NOT UNCNTRL 21711 DIAB 02-10-2011 [facility] W/PERIPH CIRC D/O TYPE II/UNS NOT UNCNTRL 48644 ABDOMINAL 01-18-2011 [place] PAIN RIGHT MEDICAL LOWER IMAGING ASS QUADRANT 11260 HYPERSOMNIA 12-27-2010 [facility] WITH SLEEP DEIDRA APNEA UNSPECIFIED 7210 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 90601 OTHER 10-26-2010 [facility] ALTERATION [facility] OF INC CONSCIOUSNE SS 9953 ALLERGY 09-13-2010 [facility] UNSPECIFIED AMBULANCE NOT SERVICE ELSEWHERE CLASSIFIED V1272 PERSONAL 08-25-2010 [facility] HISTORY OF [facility] COLONIC INC POLYPS 55124 BACKGROUND 07-28-2010 [facility] DIABETIC VISION RETINOPATHY 18057 UNSPECIFIED 07-27-2010 [facility] INFECTIVE [facility] OTITIS INC EXTERNA 37193 HYPOXEMIA 06-27-2010 [facility] 5589 OTH&UNSPEC 10-12-2009 [facility] NONINFECTIO EMERGENCY US SERVICES GASTROENTER ASSOCIATES ITIS&COLITI S 84147 PAPANICOLAO 04-16-2009 PATHOLOGY & U SMEAR OF CYTOLOGY VAGINA WITH LAB ASC-US 66111 ABDOMINAL 04-14-2009 [facility] PAIN, [place] EPIGASTRIC INTERNAL MED 71624 ASTHMA 03-19-2009 [facility] UNSPECIFIED EMERGENCY WITH SERVICES EXACERBATIO ASSOCIATES N 7387 NONALLOPATH 03-17-2009 [place] IC LESION FAMILY OF LUMBAR CHIROPRACTI REGION NEC C 5999 UNSPECIFIED 03-09-2009 [facility], DISORDER CHELSY [place] OF URETHRA&URI NARY TRACT 76860 OSTEOARTHRO 03-09-2009 Mamta DUEÑAS INVLV MX CHELSY [place] SITES BUT NOT SPEC GEN 64098 OTHER 02-18-2009 [facility] EMERGENCY GLUCOSE SERVICES ASSOCIATES V5883 ENCOUNTER 01-25-2009 CARDIOLOGY FOR ASSOCIATES THERAPEUTIC OF DRUG BIM MONITORING 4580 ORTHOSTATIC 01-14-2009 [facility] AMBULANCE HYPOTENSION SERVICE 36320 ASPHYXIA 01-14-2009 [facility] 7336 TIETZES 12-16-2008 [facility] DISEASE [place] INTERNAL MED 04408 STOMATITIS 12-04-2008 [facility] AND CHELSY [place] MUCOSITIS UNSPECIFIED 9778 POISONING 11-26-2008 [facility] OTHER SPEC EMERGENCY DRUGS&MEDIC SERVICES INAL ASSOCIATES SUBSTANCES 12244 UNSPECIFIED 10-30-2008 [facility] SITE OF CHELSY [place] ANKLE SPRAIN AND STRAIN E8498 OTHER 10-28-[address] [facility] [address] OF IMAGING OCCURRENCE ASSOCIATES E8859 FALL FROM 10-28-2008 [facility] OTHER MEDICAL SLIPPING IMAGING TRIPPING OR ASSOCIATES STUMBLING 7873 FLATULENCE 10-21-2008 [place] [facility] ERUCTATION SERV AND GAS FOUNDATIO PAIN 56914 VOMITING 09-22-2008 [facility] ALONE EMERGENCY SERVICES ASSOCIATES 66126 VARIANTS 08-06-2008 [facility] MIGRAINE CHELSY [place] NEC INTRACT MIGRAINE W/O SM 23177 UNS 07-24-2008 [facility] GASTRITIS&G CHELSY [place] ASTRODUODIT IS W/O MENTION HEMORR 49639 ABDOMINAL/P 05-25-2008 [facility] ELVIC [facility]LL[facility] INC MASS/LUMP UNSPEC SITE 49850 NEPHROTIC 04-27-2008 [facility] SYND W/OTH [facility] PATHAL LES INC DZ CLASS ELSW 47291 OTHER SPEC 04-15-2008 [place] [facility]ICAL GASTRITIS SERV WITHOUT FOUNDATIO MENTION HEMORRHAGE 30380 ERYTHEMA 03-04-2008 [facility] DUE TO BURN [facility] OF INC ABDOMINAL WALL 87300 BLISTERS 03-04-2008 RODRIGUEZ W/EPIDERMAL NATIONAL LOSS DUE [employer]PORATION BURN ABD WALL 14305 DERMATITIS 02-23-2008 [facility] DUE TO [facility] OTHER INC RADIATION 86322 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-2007 [facility] CARDIOLOGY OSIS [place] YARDPERSON CORONARY ARTERY 72951 OTHER 12-18-2007 [facility] RESPIRATORY ABNORMALITI ES 7931 NONSPEC 12-18-2007 [facility] FIND RAD [facility] OTH EXAM HOSP BODY STRUCT LUNG FIELD 30993 NONSPECIFIC 12-18-2007 [facility] ABNORMAL [facility] ELECTROCARD HOSP IOGRAM V142 PERSONAL 12-18-2007 [facility] HISTORY OF [facility] ALLERGY TO HOSP SULFONAMIDE S 2443 OTHER 10-04-2007 [facility] ISM PROF SERV 2810 PERNICIOUS 09-20-2007 [facility] ANEMIA [place] INTERNAL MED 7244 THORACIC/ANIL 09-17-2007 DANGELO HOFFOSACRBENJAMIN Huffman NEURITIS/RA DICULITIS UNSPEC 7246 DISORDERS 09-17-2007 [facility] OF SACRUM ERVIN Huffman 0340 STREPTOCOCC 09-12-2007 [facility] AL SORE VALLEY THROAT INTERNAL MED 4149 UNSPECIFIED 08-30-2007 [facility] CHRONIC [place] ISCHEMIC INTERNAL HEART MED DISEASE 3569 UNSPEC [...] 01 30 30 RI 79 GH Ac AK 00 -0 -2 .0 TE 42 AN [...] 01 30 30 RI 79 GH Ac AK 00 -0 -1 .0 TE 42 AN [...] -1 -2 .0 TE 04 NO ti AK 80 2- 7- 00 86 LD ve [...] 00 30 30 RI 79 GH Ac AK 00 -0 -1 .0 TE 42 AN [...] M /M #3 L 93 8 AL 00 07 07 00 [...] -1 -3 .0 TE 04 NO ti AK 80 2- 0- 00 86 LD ve [...] #3 W L 93 8 AL 00 06 07 01 [...] -1 -0 .0 TE 04 NO ti AK 80 2- 2- 00 86 LD ve [...] 4- 2- 00 SI 15 ON ve AK 02 20 20 DE ED 20 09 [...] /M #3 W L 93 8 AL LO 00 06 06 [...] -1 -0 .0 TE 04 NO ti AK 80 2- 4- 00 86 LD ve [...] 93 G 8 TA BL ET 00 05 06 00 90 30 RI [...] AR M D #3 W 93 8 AK 37 05 05 00 28 28 RI [...] 00 20 10 RI 77 AR Ac AK 17 -1 -2 .0 TE 97 NO [...] -1 -2 .0 TE 04 NO ti AK 80 2- 3- 00 86 LD ve [...] -1 -2 .0 TE 04 NO ti AK 80 2- 6- 00 86 LD ve [...] -1 -2 .0 TE 04 NO ti AK 80 2- 6- 00 86 LD ve OL 52 20 20 AI OL 39 09 09 D RI 3 PH CH FU AR AR MA M D RA #3 W TE 93 5 8 MG TA B CI 00 02 02 00 20 10 RI 77 AR Ac AK 17 -1 -2 .0 TE 04 NO [...] -0 -0 .0 TE 32 KE ti AK 80 6- 1- 00 28 NV ve [...] #3 W 93 TA 8 BL ET AK 00 09 01 01 40 20 RI [...] 00 60 30 RI 76 AR Ac AK 09 -1 -1 .0 TE 18 NO [...] 34 2- 0- 00 11 LD ve AK 59 20 20 AI ED 31 08 [...] /M #3 W L 93 8 AL LE 00 07 11 [...] -0 -2 .0 TE 32 KE ti AK 80 6- 0- 00 28 NV ve [...] 00 20 10 RI 75 AR Ac AK 17 -2 -0 .0 TE 17 NO [...] MC 93 G 8 TA BL ET AK 00 09 09 00 40 20 RI [...] W MG 93 8 TA BL ET AK 37 09 09 00 28 28 RI [...] 34 4- 1- 00 10 LD ve AK 59 20 20 AI ED 31 08 [...] W L 93 8 AL NO 00 12 09 [...] .0 TE 79 NO ti TA 15 9 8- 00 67 LD ve DI 07 [...] .0 TE 85 KE ti LI 91 8- 00 61 NV ve N 83 [...] L 93 8 AL GL 00 07 08 [...] 0 bl PH e AR MA CY AK 00 06 07 00 40 10 RI [...] 82 5- 3- 00 76 Av ve AK 07 20 20 AI ai IL 20 [...] 0 bl PH e AR MA CY ME 00 05 06 00 21 6 RI 73 AR Ac TH 60 -2 -0 .0 TE 52 NO ti YL 34 9- 5- 00 01 LD ve AK 59 20 20 AI ED 31 08 [...] MG #3 93 TA 8 BL ET 49 04 05 00 18 30 PU [...] 8- 00 MA 26 Av ve DA 33 20 20 RT 6 ai L 00 08 08 la 3 6 PH bl MG AR e MA TA CY BL ET #5 91 50 05 05 00 12 [...] -0 -0 .0 TE 32 t ti AK 80 6- 8- 00 28 Av ve [...] BL 93 ET 8 LE 00 10 05 04 30 30 [...] 00 20 10 RI 72 No Ac AK 17 -1 -2 .0 TE 89 t [...] -0 -0 .0 TE 32 t ti AK 80 6- 7- 00 28 Av ve [...] 25 4- 6- 00 61 Av ve AK 03 20 20 AI ai IL 26 [...] 46 t ti US 82 1- 4- 17 Av ve 22 20 20 AI ai 10 03 08 08 D la 0 3 PH bl UN AR e IT M /M #3 L 93 8 AL Immunization Name Date Rout CVX Reac Dose Comm Prov Is Faci e tion ent ider Refu lity Give sed n HEPA 03- 104 [place] S[place] 6-20 [place] MEDI S A 15 JOSE D CHETAN & B [place] SERV VACC ACH INE FOUN HEPA DATI -HEP ON B ADUL T IM HEPA 03-25 104 SOUR No [place] S[place] 7-20 [place] MEDI S A 14 JOSE D [facility] & B [place] SERV VACC ACH INE FOUN HEPA DATI -HEP ON B ADUL T IM Procedures Procedure DOS Code Location Performer Comment ECG [id number] [facility] ROUTINE [address] [facility] ECG INC INC W/LEAST 12 LDS TRCG ONLY W/O I&R THERAPEUT 87239 [facility] IC [address] [facility] INJECTION INC INC IV PUSH EACH NEW DRUG ECG 51616 [facility] ROUTINE 7 [facility] ECG INC INC W/LEAST 12 LDS TRCG ONLY W/O I&R ECG 75246 [facility] ROUTINE 7 [facility] ECG INC INC W/LEAST 12 LDS TRCG ONLY W/O I&R COLLECTIO 76601 [facility] N VENOUS 7 [facility] BLOOD INC INC VENIPUNCT URE BASIC 86360 [facility] METABOLIC [address] [facility] PANEL INC INC CALCIUM TOTAL ECHO 67616 [facility] TTHRC R-T [address] [facility] 2D INC INC W/WOM-MOD E COMPL SPEC&COLR D ECG 89110 [facility] ROUTINE [address] [facility] ECG INC INC W/LEAST 12 LDS TRCG ONLY W/O I&R CULTURE 49267 [facility] BACTERIAL [address] [facility] HOS[facility] INC INC QUANTTATI VE COLONY COUNT URINE DRUG TEST 55913 [facility] PRSMV [address] [facility] QUAL DIR INC INC OPTICAL OBS PER DAY RADIOLOGI 40671 [facility] C 7 [facility] EXAMINATI INC INC ON KNEE 3 VIEWS URNLS DIP 12301 [facility] BRANDON 7 [facility] STICK/TAB INC INC LET REAGENT AUTO MICROSCOP Y RADEX 76171 [facility] NASAL 7 [facility] BONES INC INC COMPLETE MINIMUM 3 VIEWS RADIOLOGI 04716 [facility] C 7 [facility] EXAMINATI INC INC ON PELVIS 1/2 VIEWS THERAPEUT 53985 [facility] IC 7 [facility] INJECTION [place] [address] [facility] INFUSION 7 [facility] THERAPY/P INC INC ROPHYLAXI S /DX 1ST TO 1 HR URNLS DIP 08718 [facility] 7 [facility] STICK/TAB INC INC LET REAGENT AUTO MICROSCOP Y RADIOLOGI 48862 [facility] C 7 [facility] EXAMINATI INC INC ON CHEST SINGLE VIEW FRONTAL COMPREHEN 57188 [facility] SIVE 7 [facility] METABOLIC INC INC PANEL CULTURE 72022 [facility] BACTERIAL 7 [facility] INC INC QUANTTATI VE COLONY COUNT URINE GLUC BLD 55445 [facility] GLUC MNTR 7 [facility] DEV INC [place] [address] [facility] TROPONIN 7 [facility] QUANTITAT INC INC ANNABELLA BLOOD 23538 [facility] COUNT 7 [facility] COMPLETE INC INC AUTO&AUTO DIFRNTL WBC CREATINE 98684 [facility] SULLIVAN KINASE MB 7 MEM [facility] COUNTY FRACTION INC HE[facility] ONLY CENTER ECG 12163 [facility] ROUTINE [facility] ECG INC INC W/LEAST 12 LDS TRCG ONLY W/O I&R RHYTHM 13521 [facility] ECG 1-3 [facility] LEADS INC INC TRACING ONLY W/O I&R CREATINE 67060 [facility] KINASE 7 [facility] [place] [address] [facility] LIPASE 7 [facility] INC INC BLOOD 87602 [facility] COUNT 7 [facility] COMPLETE INC INC AUTO&[place] [address] [facility] AMYLASE [facility] CULTURE 82751 [facility] BACTERIAL [facility] INC INC QU[place] [address] [facility] TROPONIN 7 [facility] QUANTITAT INC INC ANNABELLA CULTURE 34169 [facility] BCT [facility] ISOL&PRSM INC INC PTV ID ISOLATE EA URINE COMPREHEN 71486 [facility] SIVE [facility] METABOLIC INC INC PANEL URNLS DIP 46218 [facility] STICK/TAB INC INC LET REAGENT AUTO MICROSCOP Y RADEX ABD 93956 [facility] COMPL [facility] AQT ABD INC INC W/S/E/D VIEWS 1 VIEW CH THERAPEUT 96351 [facility] IC [facility] PROPHYLAC INC INC TIC/DX INJECTION SUBQ/IM SUSCEPTIB 71057 [facility] LTY STDY 7 [facility] ANTIMICRB INC INC IAL MICRO/AGA R DILUTJ ECG 14963 [facility] ROUTINE 7 [facility] ECG INC INC W/LEAST 12 LDS TRCG ONLY W/O I&R NITRIC 98388 [facility] OXIDE 7 [facility] GAS [facility] DETERMINA TION DEMO&/POLLY 05936 [facility] L OF PT 7 [facility] UTILIZ [facility] AERSL CO GEN/NEB/I NHLR/IP BRNCDILAT 94735 [facility] RSPSE 7 [facility] SPMTRY [facility] PRE&POST- CO BRNCDILAT ADMN PERCUTANE 44703 [facility] OUS TESTS 7 [facility] W/ALLERGE CO ALVARADO EXTRACTS THERAPEUT 33658 [facility] IC [facility] INJECTION INC INC IV PUSH EACH NEW DRUG RADIOLOGI 68338 [facility] C EXAM [facility] CHEST 2 INC INC VIEWS FRONTAL&L ATERAL THER 21857 [facility] PROPH/DX [facility] NJX IV INC INC PUSH SINGLE/1S T SBST/DRUG SUSCEPTIB 73310 [facility] LTY STDY 7 [facility] ANTIMICRB INC INC IAL MICRO/AGA R DILUTJ INJECTION J2405 [facility] ONDANSETR INC INC ON HCL PER 1 MG THER 02896 [facility] PROPH/DX 7 [facility] NJX EA INC INC SEQL IV PUSH SBST/DRUG FAC URNLS DIP 97663 [facility] STICK/TAB INC INC LET REAGENT AUTO MICROSCOP Y COMPREHEN 01680 [facility] SIVE 7 [facility] METABOLIC INC INC PANEL ECG 82766 [facility] ROUTINE 7 [facility] ECG INC INC W/LEAST 12 LDS TRCG ONLY W/O I&R RHYTHM 12286 [facility] ECG 1-3 [facility] LEADS INC INC TRACING ONLY W/O I&R CREATINE 17045 [facility] KINASE 7 [facility] TOTAL INC INC CULTURE 43508 [facility] BCT 7 [facility] ISOL&PRSM INC INC PTV ID ISOLATE EA URINE CULTURE 50819 [facility] BACTERIAL 7 [facility] INC INC QUANTTATI VE COLONY COUNT URINE BLOOD 97447 [facility] COUNT 7 [facility] COMPLETE INC INC AUTO&[place] [address] [facility] TROPONIN 7 [facility] QUANTITAT INC INC ANNABELLA CREATINE 18359 [facility] KINASE MB 7 [facility] FRACTION INC INC ONLY CULTURE 73896 [facility] BACTERIAL 7 [facility] INC INC [place] [address] [facility] FREE [facility] THYROXINE INC INC [place] [id number] [facility] STIMULATI INC INC NG HORMONE TSH BLOOD 48990 [facility] COUNT [facility] COMPLETE INC INC AUTO&[place] [address] [facility]ROID [facility] STIMULAT[place] [address] [facility] FREE [facility] [place] [address] [facility] TRIIODOTH [facility] YRONINE INC INC T3 FREE COLLECTIO 24328 [facility] N VENOUS 7 [facility] BLOOD INC INC VENIPUNCT URE OCCUPATIO 21348 [facility] NAL [facility] THERAPY INC INC EVAL LOW COMPLEX 30 MINS APPL 73787 [facility] MODALITY 7 [facility] 1/> AREAS INC INC IONTOPHOR ESIS EA 15 MIN THERAPEUT 28926 [facility] IC PX 1/> 7 [facility] AREAS INC INC EACH 15 MIN EXERCISES [facility]OSP[facility] G0463 [place] [facility] V[facility] H[facility]PITALS ASSESS & MGMT PT HOSPITAL G0463 [facility] OUTPATIEN [facility] T CLIN INC INC VISIT ASSESS & MGMT PT IAADIADOO 70989 [facility] STREPTOCO INC INC CCUS GROUP A IAADIADOO 84237 [facility] INFLUENZA INC INC INJ J0702 [facility] LEXUS BETAMETHA 7 PHYSICIAN DELMAR S GROUP ACETATE & PHOSPHATE 3 MG RADIOLOGI 84868 [facility] [place] [facility] C EXAM 7 RADIOLOGY CHEST 2 VIEWS FRONTAL&[place] [address] [facility] CERVICAL 7 MEDICAL SPINE W/O IMAGING CONTRAST ASS MATERIAL GROUND A0425 [facility] MILEAGE 7 AMBULANCE AMBULANCE PER SERVICE SERVICE STATUTE MILE AMBULANCE A0429 [facility] SERVICE 7 AMBULANCE AMBULANCE BLS SERV[place] [address] [facility] HEAD/BRAI 7 MEDICAL N W/O IMAGING CONTRAST ASS MATERIAL RADEX 78468 [place] [facility] ELBOW 7 MEDICAL COMPLETE IMAGING MINIMUM 3 ASS VIEWS LOCM Q9967 [facility] 300-399 7 [facility] MG/ML INC INC IODINE CONCENTRA TION PER ML THERAPEUT 93826 [facility] IC [facility] INJECTION [place] [address] [facility] INFUSION [facility] THERAPY/P INC INC ROPHYLAXI S /DX 1ST TO 1 HR SUSCEPTIB 28430 [facility] LTY STDY 7 [facility] ANTIMICRB INC INC IAL MICRO/[place] [address] [facility] ABDOMEN & 7 [facility] PELVIS INC INC W/CONTRAS T MATERIAL INJECTION J2405 [facility] ONDANSETR INC INC ON HCL PER 1 MG COMPREHEN 34448 [facility] SIVE [facility] METABOLIC INC INC PANEL URNLS DIP 36807 [facility] STICK/TAB INC INC [place] [address] [facility] AMYLASE 7 [facility] INC INC BLOOD 02153 [facility] COUNT 7 [facility] COMPLETE INC INC AUTO&AUTO DIFRNTL WBC CULTURE 10192 [facility] BCT 7 [facility] ISOL&PRSM INC INC PTV ID ISOLATE EA URINE CULTURE 29195 [facility] BACTERIAL 7 [facility] INC INC [place] [address] [facility] LIPASE 7 [facility] INC INC CULTURE 69020 [facility] BACTERIAL 7 [facility] INC INC QUANTTATI VE COLONY COUNT URINE CULTURE 14080 [facility] BCT 7 [facility] ISOL&PRSM INC INC PTV ID ISOLATE EA URINE SUSCEPTIB 30348 [facility] LTY STDY 7 [facility] ANTIMICRB INC INC IAL MICRO/AGA R DILUTJ INJECTION J2405 [facility] ONDANSETR INC INC ON HCL PER 1 MG ALBUTEROL J7613 YOUR YOUR INHAL 7 PHARMACY PHARMACY NON-CP [facility] PROD THRU DME U DOSE 1 MG PHRM Q0513 YOUR YOUR DISPENSIN 7 PHARMACY PHARMACY G FEE [facility] INHALATIO N RX; PER 30 DAYS THERAPEUT 94050 [facility] IC [facility] PROPHYLAC INC INC TIC/DX INJECTION SUBQ/IM ADMN SET A7003 YOUR YOUR SM VOL 7 PHARMACY PHARMACY NONFILTR [facility] PNEUMAT NEBULIZR DISPBL LACTOFERR 29639 [facility] IN FECAL 7 [facility] QUALITATI INC INC VE IADNA-DNA 48205 [facility] /RNA GI 7 [facility] PTHGN INC INC MULTIPLEX PROBE TQ 06-18 OVA&NOEL 87060 [facility] ITES 7 [facility] DIRECT INC INC SMEARS CONCENTRA TION & ID RADIOLOGI 31320 [facility] C EXAM 7 MEDICAL CHEST 2 IMAGING VIEWS ASS FRONTAL&L ATERAL ECG 19138 [facility] ROUTINE 7 [facility] ECG INC INC W/LEAST 12 LDS TRCG ONLY W/O I&R ECG 80877 [facility] ROUTINE 7 PHYSICIAN ECG S, PLLC W/LEAST 12 LDS I&R ONLY CREATINE 29529 [facility] KINASE 7 [facility] TOTAL INC INC E-STIM G0283 [facility] 1/> AREAS 7 [facility] OTH THAN INC INC WND CARE PART TX PLAN BLOOD 60169 [facility] COUNT 7 [facility] COMPLETE INC INC AUTO&[place] [address] [facility] TROPONIN 7 [facility] QUANTITAT INC INC ANNABELLA CREATINE 26212 [facility] KINASE MB 7 [facility] FRACTION INC INC ONLY COMPREHEN 68882 [facility] SIVE 7 [facility] METABOLIC INC INC PANEL APPLICATI 81564 [facility] ON 7 [facility] MODALITY INC INC 1/> AREAS HOT/COLD PACKS APPL 95113 [facility] MODALITY 7 [facility] 1/> AREAS INC INC ULTRASOUN D EA 15 MIN APPL 59332 [facility] MODALITY 7 [facility] 1/> AREAS INC INC ULTRASOUN D EA 15 MIN APPLICATI 96802 [facility] ON 7 [facility] MODALITY INC INC 1/> AREAS HOT/COLD PACKS E-STIM G0283 [facility] 1/> AREAS 7 [facility] OTH THAN INC INC WND CARE PART TX PLAN ECG 60315 [facility] ROUTINE 7 [facility] ECG INC INC W/LEAST 12 LDS TRCG ONLY W/O I&R ECG 30262 [facility] ROUTINE 7 [facility] ECG INC INC W/LEAST 12 LDS TRCG ONLY W/O I&R DRUG TEST G0480 [facility] DEFINITV [address] [facility] [address] [address] ID INC INC METH P DAY 1-7 DRUG CL CREATINE 65088 [facility] KINASE 7 [facility] TOTAL INC INC ECG 11154 [facility] ROUTINE 7 PHYSICIAN ECG S, PLLC W/LEAST 12 LDS I&R ONLY DRUG TEST G0481 [facility] DEFINITV [address] ID INC INC METH P DAY 8-14 DRUG CL CREATINE 38936 [facility] KINASE MB 7 [facility] [place] [address] [facility] FREE 7 [facility] [place] [address] [facility] THYROID 7 [facility] STIMULATI [place] [address] [facility] TROPONIN 7 [facility] QUANTITAT INC INC ANNABELLA BLOOD 43244 [facility] COUNT 7 [facility] COMPLETE INC INC AUTO&AUTO DIFRNTL WBC CULTURE 60167 [facility] BCT 7 [facility] ISOL&PRSM INC INC PTV ID ISOLATE EA URINE CULTURE 74198 [facility] BACTERIAL 7 [facility] INC INC QUANTTATI VE COLONY COUNT URINE COMPREHEN 72017 [facility] SIVE 7 [facility] METABOLIC INC INC PANEL URNLS DIP 56967 [facility] STICK/TAB INC INC LET REAGENT AUTO MICROSCOP Y BLOOD 08864 [facility] GASES ANY 7 [facility] INC INC COMBINATI ON PH PCO2 PO2 CO2 HCO3 DRUG TEST 73771 [facility] PRSMV 7 [facility] INSTRMNT INC INC CHEMISTRY ANALYZERS SUSCEPTIB 96004 [facility] LTY STDY 7 [facility] ANTIMICRB INC INC IAL MICRO/AGA R DILUTJ APPLICATI 76270 [facility] ON 7 [facility] MODALITY INC INC 1/> AREAS HOT/COLD PACKS APPL 67905 [facility] MODALITY 7 [facility] 1/> AREAS INC INC ULTRASOUN D EA 15 MIN E-STIM G0283 [facility] 1/> AREAS 7 [facility] OTH THAN INC INC WND CARE PART TX PLAN BLOOD 83499 [facility] COUNT 7 [facility] COMPLETE INC INC AUTO&AUTO DIFRNTL WBC E-STIM G0283 [facility] 1/> AREAS 7 [facility] OTH THAN INC INC WND CARE PART TX PLAN APPL 94604 [facility] MODALITY 7 [facility] 1/> AREAS INC INC ULTRASOUN D EA 15 MIN APPLICATI 13628 [facility] ON 7 [facility] MODALITY INC INC 1/> AREAS HOT/COLD PACKS PHYSICAL 56098 [facility] THERAPY 7 [facility] EVALUATIO INC INC N MOD COMPLEX [address] THORAX 20431 [facility] W/O 7 MEDICAL CONTRAST IMAGING MATERIAL ASS RADIOLOGI 42415 [facility] C EXAM 6 [facility] CHEST 2 INC INC VIEWS FRONTAL&[place] [address] [facility] THYROXINE 6 [facility] TOTAL INC INC COMPREHEN 21752 [facility] SIVE 6 [facility] METABOLIC INC INC PANEL COLLECTIO 13816 [facility] N VENOUS 6 [facility] BLOOD INC INC VENIPUNCT URE DRUG TST G0477 [facility] PRESUMP;C 6 [facility] PBL BEING INC INC READ DC OPT OBV ONLY BLOOD 52556 [facility] COUNT 6 [facility] COMPLETE INC INC AUTO&[place] [address] [facility] THYROID 6 [facility] STIMULATI INC INC NG HORMONE TSH GLUC BLD 44035 [facility] GLUC MNTR 6 [facility] DEV INC INC CLEARED FDA SPEC HOME USE THERAPEUT 54610 [facility] IC 6 [facility] PROPHYLAC INC INC TIC/DX INJECTION SUBQ/IM LANCETS A4259 [facility] AMARAL PER BOX 6 HOME HOME OF 100 MEDICAL MEDICAL EQUIPME EQUIPME BLD GLU A4253 [facility] AMARAL TEST/REAG 6 HOME [facility] T [facility] BLD EQUIPME EQUIPME GLU MON-50 SBSQ 74912 [facility] 6 PHYSICIAN SHANTHI CARE/DAY S GROUP 15 MINUTES ECG 66449 [facility] JR ROUTINE 6 [facility] W/LEAST P 12 LDS I&R ONLY INITIAL 75417 [facility] 6 PHYSICIAN SHANTHI CARE/DAY S GROUP 50 MINUTES CRITICAL 89325 [facility] CARE 6 PHYSICIAN ILL/INJUR S, PLLC ED PATIENT INIT 30-74 MIN RADIOLOGI 24787 [facility] C 6 MEDICAL EXAMINATI IMAGING [place] [address] [facility] ABDOMEN & 6 MEDICAL PELVIS IMAGING W/O ASS CONTRAST MATERIAL RADIOLOGI 04253 [facility] C EXAM 6 MEDICAL ANITA CHEST 2 IMAGING VIEWS ASS FRONTAL&L ATERAL IAADI 12871 [facility] INFLUENZA 6 [facility] B VIRUS INC INC IAADI 58461 [facility] INFFLUENZ 6 [facility] [place] [address] [facility] STREPTOCO [address] [facility] CCUS INC INC GROUP A THERAPEUT 65527 [facility] IC [address] [facility] PROPHYLAC INC INC TIC/DX INJECTION SUBQ/IM SUSCEPTIB 68958 [facility] LTY STDY [address] [facility] ANTIMICRB INC INC IAL MICRO/AGA R DILUTJ COMPREHEN 11628 [facility] SIVE [address] [facility] METABOLIC INC INC PANEL URNLS DIP 63356 [facility] [address] [facility] STICK/TAB INC INC LET REAGENT AUTO MICROSCOP Y CUL BACT 58224 [facility] XCPT [address] [facility] URINE INC INC BLOOD/STO OL AEROBIC ISOL COLLECTIO 40428 [facility] N VENOUS 6 [facility] BLOOD INC INC VENIPUNCT URE CULTURE 50584 [facility] BCT 6 [facility] ISOL&PRSM INC INC PTV ID ISOLATE EA URINE CULTURE 27467 [facility] BACTERIAL [address] [facility] INC INC QUANTTATI VE COLONY COUNT URINE BLOOD 10888 [facility] COUNT [address] [facility] COMPLETE INC INC AUTO&AUTO DIFRNTL WBC MRI 29247 [facility] SPINAL 6 [facility] CANAL INC INC LUMBAR W/O CONTRAST MATERIAL 3D 68669 [facility] RENDERING [address] [facility] W/INTERP INC INC & POSTPROCE SS SUPERVISI ON RADIOLOGI 76017 [place] [address] MEDICAL ANITA EXAMINATI IMAGING ON KNEE 3 ASS VIEWS THERAPEUT 77240 [facility] IC [address] [facility] INJECTION INC INC IV PUSH EACH NEW DRUG THER 69502 [facility] PROPH/DX [address] [facility] NJX IV INC INC PUSH SINGLE/1S T SBST/DRUG PHYSICAL 16743 [facility] THERAPY [address] [facility] EVALUATIO INC INC N THERAPEUT 48841 [facility] IC PX 1/> [address] [facility] AREAS INC INC EACH 15 MIN EXERCISES APPLICATI 38831 [facility] ON 6 [facility] MODALITY INC INC 1/> AREAS HOT/COLD PACKS E-STIM G0283 [facility] 1/> AREAS 6 [facility] OTH THAN INC INC WND CARE PART TX PLAN BLD GLU A4253 [facility] JORDANRELL TEST/REAG 6 HOME HOME T [facility] BLD EQUIPME EQUIPME GLU MON-50 LANCETS A4259 [facility] CRISTIN PER BOX 6 HOME HOME OF 100 MEDICAL MEDICAL EQUIPME EQUIPME DEBRIDEME 15090 [facility] NT NAIL 6 FOOT & ANY ANKLE CE METHOD 6/> POTASSIUM 25478 [facility] SERUM 6 [facility] PLASMA/WH INC INC OLE BLOOD COLLECTIO 57034 [facility] N VENOUS 6 [facility] BLOOD INC INC VENIPUNCT URE POTASSIUM 73766 [facility] SERUM 6 [facility] PLASMA/WH INC INC OLE BLOOD BLOOD 81239 [facility] COUNT 6 [facility] COMPLETE INC INC AUTO&AUTO DIFRNTL WBC COMPREHEN 67292 [facility] SIVE 6 [facility] METABOLIC INC INC PANEL RADEX 25961 [facility] ALL RIBS UNI 6 MEDICAL W/POSTERO IMAGING ANT CH ASS MINIMUM 3 VIEWS AMBULANCE A0429 [facility] SERVICE 6 AMBULANCE AMBULANCE BLS SERVICE SERVICE EMERGENCY TRANSPORT GROUND A0425 [facility] MILEAGE 6 AMBULANCE AMBULANCE PER SERVICE SERVICE STATUTE MILE COMPREHEN 40338 [facility] SIVE 6 [facility] METABOLIC INC INC PANEL COLLECTIO 28092 [facility] N VENOUS 6 [facility] BLOOD INC INC VENIPUNCT URE COLLECTIO 41512 [facility] N VENOUS 6 [facility] BLOOD INC INC VENIPUNCT URE BLOOD 02916 [facility] COUNT 6 [facility] COMPLETE INC INC AUTO&AUTO DIFRNTL WBC COMPREHEN 99256 [facility] SIVE 6 [facility] METABOLIC INC INC PANEL RADEX 87344 [facility] RIBS UNI 6 [facility] W/POSTERO INC INC ANT CH MINIMUM 3 VIEWS RADIOLOGI 25789 [facility] ALL C EXAM 6 MEDICAL CHEST 2 IMAGING VIEWS ASS FRONTAL&L ATERAL RADEX 01768 [facility] SHOULDER 6 MEDICAL MEDICAL COMPLETE IMAGING IMAGING MINIMUM 2 ASS ASS VIEWS CULTURE 32611 [facility] BACTERIAL 6 [facility] BLOOD INC INC AEROBIC W/ID ISOLATES COMPREHEN 93942 [facility] SIVE 6 [facility] METABOLIC INC INC PANEL BLOOD 18210 [facility] COUNT 6 [facility] COMPLETE INC INC AUTO&[place] [address] [facility] LACTATE [address] [facility] [facility] INC INC COLLECTIO 72907 [facility] N VENOUS [address] [facility] BLOOD INC INC VENIPUNCT URE CUL BACT 34214 [facility] XCPT [address] [facility] URINE INC INC BLOOD/STO OL AEROBIC ISOL CUL BACT 74609 [facility] AEROBIC 6 [facility] ADDL INC INC METHS DEFINITIV E EA ISOL SUSCEPTIB 47644 [facility] LTY STDY [address] [facility] ANTIMICRB INC INC IAL MICRO/AGA R DILUTJ LANCETS A4259 [facility] AMARAL PER BOX 6 HOME HOME OF 100 MEDICAL MEDICAL EQUIPME EQUIPME BLD GLU A4253 [facility] AMARAL TEST/REAG 6 HOME HOME T [facility] BLD EQUIPME EQUIPME GLU MON-50 CT SOFT 81976 [facility] TISSUE 6 [facility] NECK INC INC W/CONTRAS T MATERIAL RADEX 48051 [facility] ESOPHAGUS 6 [facility] INC INC LOCM Q9967 [facility] 300-399 6 [facility] MG/ML INC INC IODINE CONCENTRA TION PER ML RADEX 07370 [facility] SPINE 6 [facility] CERVICAL INC INC 4 OR 5 VIEWS RADEX HIP 27318 [facility] 6 [facility] UNILATERA INC INC L WITH PELVIS 2-3 VIEWS RADEX 57636 [facility] ALL SPINE 6 MEDICAL CERVICAL IMAGING 2 OR 3 ASS VIEWS RADEX HIP 85259 [facility] ALL 6 MEDICAL UNILATERA IMAGING L WITH ASS PELVIS 1 VIEW COMPREHEN 11376 [facility] SIVE 6 [facility] METABOLIC INC INC PANEL COLLECTIO 81656 [facility] N VENOUS 6 [facility] BLOOD INC INC VENIPUNCT URE BLOOD 97570 [facility] COUNT 6 [facility] COMPLETE INC INC AUTO&[place] [address] [facility] AMMONIA 6 [facility] INC INC BLOOD 40371 [facility] COUNT 6 [facility] COMPLETE INC INC AUTO&[place] [address] [facility] FREE 6 [facility] [place] [address] [facility] THYROID 6 [facility] STIMULATI [place] [address] [facility] UREA 6 [facility] NITROGEN INC INC QUANTITAT ANNABELLA COLLECTIO 65664 [facility] N VENOUS 6 [facility] BLOOD INC INC VENIPUNCT URE CREATININ 43120 [facility] E BLOOD 6 [facility] INC INC COLLECTIO 20702 [facility] N VENOUS 5 [facility] [place] [address] [facility] THYROID 5 [facility] STIMULATI INC INC NG HORMONE TSH BLOOD 69283 [facility] COUNT 5 [facility] COMPLETE INC INC AUTO&AUTO DIFRNTL WBC COMPREHEN 95888 [facility] SIVE 5 [facility] METABOLIC INC INC PANEL TX PROC G0238 [facility] IMPRV 5 [facility] RESP INC INC FUNCT NOT G0237 FCE-FCE 15MIN CT THORAX 70394 [facility] W/O 5 [facility] CONTRAST INC INC MATERIAL RADIOLOGI 04027 [facility] C EXAM 5 [facility] CHEST 2 INC INC VIEWS FRONTAL&L ATERAL PRESSURIZ 68487 [facility] ED/NONPRE 5 [facility] SSURIZED [place] [address] [facility] MAXILLOFA 5 [facility] CIAL W/O INC INC CONTRAST MATERIAL RADEX 59320 [facility] HAND 5 [facility] MINIMUM 3 INC INC VIEWS WRIST L3908 [facility] HAND 5 TECHNOLOG TECHNOLOG ORTHOSIS IES INC IES INC EXT CONTROL COCK-UP PREFAB RADEX 06039 [facility] WRIST 5 [facility] COMPLETE INC INC MINIMUM 3 VIEWS RADIOLOGI 07786 [facility] C 5 [facility] EXAMINATI INC INC ON PELVIS 1/2 VIEWS APPLICATI 64633 [facility] ON SHORT 5 [facility] ARM INC INC SPLINT FOREARM-H AND STATIC RADIOLOGI 19595 [facility] C 5 [facility] EXAMINATI INC INC ON KNEE 3 VIEWS RADEX 77170 [facility] RIBS UNI 5 [facility] W/POSTERO INC INC ANT CH MINIMUM 3 VIEWS FOR DIAB A5512 [facility] ONLY MX 5 MEDICAL MEDICAL DNSITY SUPPLY SUPPLY INSRT DIR [facility] FORMD PRFAB EA DIAB ONLY A5500 [facility] FIT CSTM 5 MEDICAL MEDICAL PREP&SPL SUPPLY SUPPLY SHOE MX [facility] DNSITY INSRT ANES OPEN 79[address] [facility] PROC 5 ANESTH BONES OF THE LOWER BLUE LEG/ANKLE /FOOT NOS ECG 67338 [facility] CHOWDHUR[facility] JR ROUTINE 5 [facility] W/LEAST P 12 [place] [address] SURG 5 TORO & PATHOLOGY DUBILIER GROSS&SHANTHI ROSCOPIC EXAM DECALCIFI [address] CATION 5 TORO & PROCEDURE DUBILIER RADEX 16686 [facility] FOOT 5 MEDICAL AYLA COMPLETE IMAGING MINIMUM [address] [place] [address] [facility] CERVICAL 5 MEDICAL AYLA SPINE W/[place] [address] [facility] CORONEL HEAD/BRAI 5 MEDICAL AYLA N W/O IMAGING CONTRAST ASS MATERIAL AMB A0427 [facility] SERVICE 5 AMBULANCE AMBULANCE ALS SERVICE SERVICE EMERGENCY TRANSPORT LEVEL 1 GROUND A0425 [facility] MILEAGE 5 AMBULANCE AMBULANCE PER SERVICE SERVICE STATUTE MILE RADEX HIP 67660 [facility] CORONEL 5 MEDICAL AYLA UNILATERA IMAGING L ASS COMPLETE MINIMUM 2 VIEWS RADIOLOGI 92412 [facility] Kumar 5 MEDICAL AYLA EXAMINATI IMAGING ON PELVIS ASS 1/2 VIEWS CULTURE 59514 COMBINED COMBINED BACTERIAL 5 PHYSICIAN PHYSICIAN S LA S LA QUANTTATI VE COLONY COUNT URINE BLD GLU A4253 CRISTIN AMARAL TEST/REAG 5 HOME HOME T [facility] MEDICAL HOME BLD EQUIPME EQUIPME GLU MON-50 COMPREHEN 10576 [facility] SIVE 5 [facility] METABOLIC INC INC PANEL URNLS DIP 10424 [facility] 5 [facility] STICK/TAB INC INC LET REAGENT AUTO MICROSCOP Y CULTURE 31967 [facility] BACTERIAL 5 [facility] INC INC QUANTTATI VE COLONY COUNT URINE GLUC BLD 00373 [facility] GL[facility] MNTR 5 [facility] DEV INC INC CLEARED FDA SPEC HOME USE CULTURE 38837 [facility] BCT [facility] ISOL&PRSM INC INC PTV ID ISOLATE EA URINE BLOOD 90530 [facility] COUNT [facility] COMPLETE INC INC AUTO&AUTO DIFRNTL WBC COLLECTIO 84331 [facility] N VENOUS [facility] BLOOD INC INC VENIPUNCT URE THER 53533 [facility] PROPH/DX [facility] NJX IV INC INC PUSH SINGLE/1S T SBST/DRUG SUSCEPTIB 61918 [facility] LTY STDY [facility] ANTIMICRB INC INC IAL MICRO/AGA R DILUTJ HEPATITIS 51984 [facility] C [facility] [place] [address] [facility]ITIS [facility] B INC INC SURFACE ANTIGEN HEPATITIS 07834 [facility] A [facility] ANTIBODY INC INC HAAB HEPATITIS 36661 [facility] CORE [facility] ANTIBODY INC INC HBCAB TOTAL HEPATITIS 07815 [facility] SURF 5 [facility] ANTIBODY INC INC HBSAB COLLECTIO 21055 [facility] N VENOUS 5 [facility] BLOOD INC INC VENIPUNCT URE BLOOD 31716 [facility] COUNT 5 [facility] COMPLETE INC INC AUTO&AUTO DIFRNTL WBC COMPREHEN 83268 [facility] SIVE [facility] METABOLIC INC INC PANEL DUP-SCAN 25368 [facility] VEINS 5 MEDICAL IMAGING UNILATERA ASS L/LIMITED STUDY INJECTION J2785 [facility] REGADENOS INC INC ON 0.1 MG MYOCARDIA 85523 [place] [facility] L SPECT 5 MEDICAL MULTIPLE IMAGING STUDIES ASS TECHNETIU A9500 [facility] M TC-99M 5 [facility] SESTAMIBI INC INC DX PER STUDY DOSE CV STRS 63085 [facility] TST 5 [facility]OR [facility] RX CONT P ECG I&R ONLY CV STRS 14642 [facility] TST 5 PHYSICIAN XERS&/OR S GROUP RX CONT ECG W/O I&R CV STRS 92659 [facility] TST [facility] XERS&/OR INC INC RX CONT ECG TRCG ONLY AMBULANCE [id number] [facility] SERVICE 5 AMBULANCE AMBULANCE BLS SERVICE SERVICE EMERGENCY TRANSPORT GROUND A0425 [facility] PER SERVICE SERVICE STATUTE MILE RADIOLOGI 61651 [place] [facility] ALL C 5 MEDICAL EXAMINATI IMAGING ON CHEST ASS SINGLE VIEW FRONTAL RADEX 49987 [facility] RIBS UNI 5 [facility] W/POSTERO INC INC ANT CH MINIMUM 3 VIEWS RADIOLOGI 16617 [facility] ALL C 5 MEDICAL EXAMINATI IMAGING ON KNEE 3 ASS VIEWS RADIOLOGI 97757 [facility] ALL C 5 MEDICAL EXAMINATI IMAGING ON PELVIS ASS 1/2 VIEWS RADEX 51822 [facility] ALL SHOULDER 5 MEDICAL COMPLETE IMAGING MINIMUM 2 ASS VIEWS RADEX 92090 [facility] ALL WRIST 5 MEDICAL COMPLETE IMAGING MINIMUM 3 ASS VIEWS RADEX 50582 [facility] ALL RIBS 5 MEDICAL UNILATERA IMAGING L 2 VIEWS ASS BASIC 04709 [facility] METABOLIC [address] [facility] PANEL INC INC CALCIUM TOTAL COLLECTIO 36633 [facility] N VENOUS 5 [facility] BLOOD INC INC VENIPUNCT URE BLOOD 64703 [facility] COUNT 5 MEM [facility] COMPLETE INC INC AUTO&AUTO DIFRNTL WBC BLD GLU A4253 [facility] TEST/REAG 5 HOME [facility] BLD EQUIP[place]-[address] [place] [address] [facility] MEDICAL ANITA PELVIS IMAGING W/CONTRAS ASS T MATERIAL LEVEL V 12153 [facility] SURG 5 Y Y PATHOLOGY [facility] GROSS&SHANTHI ROSCOPIC EXAM SPCL STN 98647 [facility] 2 I&R [facility]IM CYT PROTHROMB 89874 [facility] IN TIME 5 Y Y [facility] BIOPSY 96713 [facility] LIVER 5 Y Y NEEDLE [facility] PERCUTANE OUS RADIOLOGI 94369 [facility] C 5 Y Y EXAMINATI [facility] ON CHEST SINGLE VIEW FRONTAL GLUCOSE 64537 [facility] QUANTITAT 5 Y Y ANNABELLA BLOOD [facility] XCPT REAGENT STRIP THROMBOPL 25307 [facility] ASTIN 5 Y Y TIME [facility] PARTIAL PLASMA/WH OLE BLOOD INFUSION J7030 [facility] NORMAL 5 Y Y SALINE [facility] SOLUTION 1000 CC BLOOD 50958 [facility] COUNT 5 Y Y COMPLETE [facility] AUTOMATED IMHISTOCH 52000 LOC MONTER[facility] EM/CYTCHM 5 PATHOLOGY PATHOLOGY EA ADDL SERVICES SERVICES ANTIBODY SLIDE CUL BACT 88831 BR[facility] T[facility] XCPT [address] [facility] URINE INC INC BLOOD/STO OL AEROBIC ISOL CUL BACT 33807 [facility] AEROBIC [address] [facility] ADDL INC INC METHS DEFINITIV E EA ISOL IMHISTOCH 30641 LOC MONTERROSO EM/CYTCHM 5 PATHOLOGY PATHOLOGY 1ST SERVICES SERVICES [place] [address] LOC [facility] SURG 5 PATHOLOGY PATHOLOGY PATHOLOGY SERVICES SERVICES GROSS&SHANTHI ROSCOPIC EXAM SUSCEPTIB 42699 BRANDON TAYLOR LTY STDY [address] [facility] ANTIMICRB INC INC IAL MICRO/AGA R DILUTJ RADEX 44904 [facility] SPINE 5 MEDICAL AYLA CERVICAL IMAGING 2 OR 3 ASS VIEWS BASIC 90625 BRANDON COLEMAN-CAMILO METABOLIC [address] [facility] EED MOH PANEL INC CALCIUM TOTAL OBSERVATI 26537 [facility]ARE 5 [place] DISCHARGE INTERNAL MED MANAGEMEN T BLOOD 74823 BRANDON TAYLOR COUNT [address] [facility] COMPLETE INC INC AUTO&AUTO DIFRNTL WBC GLUC BLD 49893 BRANDON TAYLOR GLUC MNTR [address] [facility] DEV INC INC CLEARED FDA SPEC HOME USE COLLECTIO 43988 BRANDON TAYLOR N VENOUS [address] [facility] BLOOD INC INC VENIPUNCT [facility] G0378 BRANDON TAYLOR OBSERVATI [address] [facility] ON INC INC SERVICE PER HOUR NONINVASI 47756 BRANDON TAYLOR VE [address] [facility] EAR/PULSE INC INC OXIMETRY SINGLE DETER PRESSURIZ 79123 BRANDON TAYLOR ED/NONPRE [address] [facility] SSURIZED [place] [address] BRANDON [facility] INFUSION [address] [facility] THERAPY/P INC INC ROPHYLAXI S /DX 1ST TO 1 [place] [address] BRANDON TAYLOR INFUSION [address] [facility] THER INC INC PROPH ADDL SEQUENTIA L TO 1 HR THERAPEUT 40028 BRANDONKATI TAYLOR IC 5 [facility] INJECTION INC [place] [address] BRANDON BR[facility] STREPTOCO 5 [facility] CCUS INC INC GROUP A IAADI 91084 BRANDON RABAGOON INFFLUENZ 5 [facility] A A VIRUS INC INC IAADI 73687 BRANDONKATI RABAGOON INFLUENZA 5 [facility] B VIRUS INC INC SUSCEPTIB 09696 [facility] T[facility] LTY STDY [address] [facility] ANTIMICRB INC INC IAL MICRO/AGA R DILUTJ INJECTION J2310 BRANDON BRANDON NALOXONE 5 [facility] HCL PER INC INC 1 MG CULTURE 85657 BR[facility] BACTERIAL [address] [facility] BLOOD INC INC AEROBIC W/[facility]8 [facility]ANDONKATI TAYL[facility] OBSERVATI [facility] ON INC INC SERVICE PER HOUR GLUC BLD 76285 BR[facility] TAY[facility]OR GLUC MNTR 5 [facility] DEV INC INC CLEARED FDA SPEC HOME USE BLOOD 76448 [facility] T[facility] COUNT 5 [facility] COMPLETE INC INC AUTO&AUTO DIFRNTL WBC INITIAL 58374 [facility] OBSERVATI 5 [facility]/DAY MED 30 MINUTES CUL BACT 11735 [facility] AEROBIC [address] [facility] ADDL INC INC METHS DEFINITIV E EA ISOL CUL BACT 74918 [facility] XCPT [address] [facility] [facility] URINE INC INC BLOOD/STO OL AEROBIC ISOL RADIOLOGI 03308 [facility] C 5 [facility] EXAMINATI INC INC ON CHEST SINGLE VIEW FRONTAL RADIOLOGI 78752 [facility] Kumar 5 MEDICAL AYLA EXAMINATI IMAGING ON [place] [address] [facility] T[facility] GAMMAGLOB 5 [facility] ULIN IGA INC INC IGD IGG IGM EACH COMPREHEN 12528 [facility] SIVE 5 [facility] METABOLIC INC INC PANEL BLOOD 70735 [facility] COUNT 5 [facility] COMPLETE INC INC AUTO&AUTO DIFRNTL WBC COLLECTIO 02789 BR[facility] TAY[facility]OR N VENOUS 5 [facility] BLOOD INC INC VENIPUNCT URE HEPATITIS 99302 [place] A & B 5 MEDICAL [facility]YA[facility] VACCINE SERV ACH HEPA-HEPB FOUNDATIO ADULT IM N IM ADM 88855 [place]OU[place]AR PRQ ID 5 MEDICAL AYANANE SUBQ/IM SERV ACH NJXS 1 FOUNDATIO VACCINE N PROTHROMB 36264 BRANDON TAYLOR IN TIME 5 [facility] INC INC RADEX 81161 [facility] HOMER SHOULDER 5 MEDICAL AYLA COMPLETE IMAGING MINIMUM 2 ASS VIEWS RADEX HIP 37918 [facility] MEDICAL AYLA UNILATERA IMAGING L ASS COMPLETE [place] [address] [place] [address] [facility] CORONEL HEAD/BRAI 5 MEDICAL AYLA N W/O IMAGING CONTRAST ASS MATERIAL APPLICATI 35349 [facility] 4 [facility] ARM EMERGENCY SPLINT PHYS FOREARM-H AND STATIC RADEX 38214 BRANDON TAYLOR WRIST 4 [facility] COMPLETE INC INC MINIMUM 3 VIEWS RADEX 72527 BRANDON TAYLOR HAND 4 [facility] MINIMUM 3 INC INC VIEWS PREPJ& 58617 MARNI MARNI ALLERGEN 4 LUIS ALFREDO LUIS ALFREDO IMMUNOTHE RAPY 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 ANTIGEN BLD GLU A4253 CRISTIN JORDANRELL TEST/REAG 4 HOME HOME T [facility] BLD EQUIPME EQUIPME GLU MON-50 HEPATITIS 72362 [place] A & B 4 MEDICAL AYANANE VACCINE SERV ACH HEPA-HEPB FOUNDATIO ADULT IM N ADMINISTR G0010 [place] ATION OF 4 MEDICAL AYANANE HEPATITIS SERV ACH B FOUNDATIO VACCINE N SPMTRY 43035 MARNI MARNI W/VC 4 LUIS ALFREDO LUIS ALFREDO EXPIRATOR Y LULU W/WO MXML VOL VNTJ COMPRE 79029 EAR, NOSE EAR, NOSE AUDIOMETR 4 AND AND Y THROAT THROAT THRESHOLD SPECIAL SPECIAL EVAL SP RECOGNIJ TYMPANOME 67759 EAR, NOSE SHASHY TRY 4 AND SOBEIDA THROAT SPECIAL LIPID 79403 [facility] PANEL 4 [facility] INC INC COMPREHEN 23735 [facility] SIVE 4 [facility] METABOLIC INC INC PANEL ALBUMIN 03145 [facility] T[facility] URINE 4 [facility] MICROALBU INC INC MIN QUANTIATI VE COLLECTIO 48733 [facility] N VENOUS 4 [facility] BLOOD INC INC VENIPUNCT URE HEMOGLOBI 12914 [facility] N 4 [facility] GLYCOSYLA INC INC ML A1C BLOOD 83012 [facility] COUNT 4 [facility] COMPLETE INC INC AUTO&[place] [address] BR[facility] T[facility] AMMONIA 4 [place] [address] BR[facility] T[facility] THYROID 4 [facility] STIMULATI INC INC NG HORMONE TSH RADEX HIP 10857 [facility] 4 [facility] UNILATERA INC INC L COMPLETE MINIMUM 2 VIEWS DETERMINA 85181 [facility] RAMIREZ TION 4 [facility] 52533 [facility] 4 VISION XM&EVAL CENTER COMPRHNSV ESTAB PT 1/> COLLECTIO 76806 [facility] N VENOUS 4 Y Y BLOOD [facility] VENIPUNCT URE COMPREHEN 32584 [facility] SIV 4 Y Y [facility] PANEL ANTINUCLE 78790 [facility] AR 4 Y [facility] NADINE ANTINUCLE 72471 [facility]INE TITER BLD GLU A4253 CRISTIN AMARAL TEST/REAG 4 HOME HOME T [facility] BLD EQUIPME EQUIPME GLU MON-50 DIAB ONLY A5500 [facility] FIT CSTM 4 MEDICAL MEDICAL PREP&SPL SUPPLY [employer] DNSITY INSRT FOR DIAB A5512 [facility] ONLY MX 4 MEDICAL MEDICAL DNSITY SUPPLY SUPPLY [employer] FORMD PRFAB EA COLOREC G0121 [facility] CANCR 4 Y Y SCR; [facility] NOT MEET HI RISK GLUCOSE 29809 [facility] QUANTITAT 4 Y Y ANNABELLA BLOOD [facility] XCPT REAGENT STRIP ESOPHAGOG 69072 [facility] ASTRODUOD 4 Y Y ENOSCOPY [facility] TRANSORAL DIAGNOSTI C INFUSION J7030 [facility] NORMAL 4 Y Y SALINE [facility] SOLUTION 1000 CC BX SKIN 43308 ADVANCED ADVANCED SUBCUTANE 4 DERMATOLO DERMATOLO OUS&/MUCO GY GY US MEMBRANE 1 LESION BIOPSY 52797 [facility] AD[facility]ANCED SKIN 4 DERMATOLO DERMATOLO SUBQ&/MUC GY GY OUS MEMBRANE EA ADDL LESN CUL BACT 45959 [facility] XCPT 4 DIAGNOSTI DIAGNOSTI URINE CS CS BLOOD/[place] [address] [facility] SURG 4 DERMATOLO DERMATOLO PATHOLOGY GY GY GROSS&SHANTHI ROSCOPIC EXAM COMPREHEN 29493 [facility] SIVE 4 [facility] METABOLIC INC INC PANEL COLLECTIO 53689 [facility] N VENOUS 4 [facility] BLOOD INC INC VENIPUNCT URE BLOOD 59728 BRANDON RABAGOON COUNT 4 [facility] COMPLETE INC INC AUTO&AUTO DIFRNTL WBC BLD GLU A4253 CRISTIN AMARAL TEST/REAG 4 HOME HOME T [facility] BLD EQUIPME EQUIPME GLU MON-50 US SOFT 13947 [facility] TISSUE 4 [facility] HEAD & INC INC NECK REAL TIME IMGE DOCM COMPREHEN 52639 [facility] SIVE 4 [facility] METABOLIC INC INC PANEL BLOOD 18779 [facility] COUNT 4 [facility] COMPLETE INC INC AUTO&AUTO DIFRNTL WBC CULTURE 23362 [facility] BACTERIAL 4 [facility] INC INC QUANTTATI VE COLONY COUNT URINE COLLECTIO 85198 [facility] N VENOUS 4 [facility] BLOOD INC INC VENIPUNCT URE CULTURE 52493 BRANODN BRANDON BACTERIAL 4 [facility] BLOOD INC INC AEROBIC W/ID ISOLATES RADIOLOGI 86192 [facility] EXAM 4 MEDICAL AYLA CHEST 2 IMAGING VIEWS ASS FRONTAL&L ATERAL HEPATITIS 25633 [facility] CORE 4 Y Y [facility] HBCAB TOTAL HEPATITIS 48450 [facility] SURF 4 Y Y [facility] HBSAB HEPATITIS 77175 [facility] A 4 Y Y ANTIBODY [facility] HAAB IADNA 34757 [facility] HEPATITIS 4 Y Y C QUANT [facility] REVERSE TRANSCRIP TION ANTIBODY 78694 [facility] IDENTIFIC 4 Y Y ATION [facility] [place] [address] [facility] HEPATITIS 4 Y Y B [facility] SURFACE ANTIGEN HEPATITIS 83600 [facility] C 4 Y Y ANTIBODY [facility] COLLECTIO 15446 [facility] N VENOUS 4 Y Y BLOOD [facility] VENIPUNCT URE FLUORESCE 88879 [facility] NT 4 Y Y NONNFCT [facility] AGT ANTB SCREEN EA ANTIBODY COMPREHEN 75990 [facility] SIVE 4 Y Y METABOLIC [facility] PANEL BLOOD 11230 [facility] COUNT 4 Y Y COMPLETE [facility] AUTOMATED INFUSION J7030 [facility] NORMAL 4 Y Y SALINE [facility] SOLUTION 1000 CC URNLS DIP 22382 [facility] 4 Y Y STICK/TAB [facility] LET RGNT AUTO W/[place] [address] [place] V[place] ABDOMEN & 4 MEDICAL OLIVIA PELVIS SERV W/CONTRAS FOUNDATIO T MATERIAL RINGERS J7120 [facility] LACTATE 4 Y Y INFUSION [facility] UP TO 1000 CC INJECTION J2405 [facility] 4 [facility] PER 1 MG THER 21597 [facility] PROPH/DX 4 Y Y NJX IV [facility] PUSH SINGLE/1S T SBST/DRUG LOCM Q9967 [facility] [phone] 4 Y Y MG/ML HOSPITAL HOSPITAL IODINE CONCENTRA TION PER ML SUSCEPTIB 08344 BRANDONKATI TAYLOR LTY STDY 4 [facility] ANTIMICRB INC INC IAL [place] [address] [facility] AMYLASE 4 [facility] INC INC CULTURE 54486 BRANDON BRANDON BCT [address] [facility] ISOL&PRSM INC INC PTV ID ISOLATE EA URINE BLOOD 79565 [facility] COUNT [address] [facility] COMPLETE INC INC AUTO&AUTO DIFRNTL WBC CULTURE 81290 [facility] BACTERIAL 4 [facility] INC INC QUANTTATI VE COLONY COUNT URINE COLLECTIO 12600 [facility] T[facility] N VENOUS 4 [facility] [place]LOOD [place] [address] BRANDON TAYLOR LIPASE [address] [facility] INC INC COMPREHEN 80565 BRANDON TAYLOR SIVE 4 [facility] METABOLIC INC INC PANEL URNLS DIP 77496 BR[facility] TAYLOR [address] [facility] STICK/TAB INC INC LET REAGENT AUTO MICROSCOP Y SCR G0145 [facility], CYTOPATH 4 [facility] CERV/VAG SCR AUTO&MNL RSCR PHYS RADIOLOGI 21818 [facility] EXAM 4 MEDICAL AYLA CHEST 2 IMAGING VIEWS ASS FRONTAL&L ATERAL ECG 44507 [facility] ROUTINE 4 [facility] ECG EMERGENCY W/LEAST PHYS 12 LDS I&R ONLY ECG 76297 BR[facility] WELLS ROUTINE 4 [facility] W/LEAST P 12 LDS I&R ONLY CREATINE 55590 [facility] T[facility] KINASE [address] [facility] TOTAL INC INC ECG 20194 [facility] T[facility] ROUTINE 4 [facility] ECG INC INC W/LEAST 12 LDS TRCG ONLY W/O I&R COLLECTIO 16659 [facility] N VENOUS [address] [facility] BLOOD INC INC VENIPUNCT URE NATRIURET 87970 [facility] T[facility] IC [address] [facility] PEPTIDE INC INC BLOOD 37588 [facility] COUNT 4 [facility] COMPLETE INC INC AUTO&[place] [address] [facility] T[facility] TROPONIN 4 [facility] QUANTITAT INC INC ANNABELLA CREATINE 52047 BR[facility] T[facility] KINASE MB 4 [facility] FRACTION INC INC ONLY BASIC 82094 [facility] METABOLIC 4 [facility] PANEL INC INC CALCIUM TOTAL BLD GLU A4253 CRISTIN AMARAL TEST/REAG 4 HOME HOME T [facility] BLD EQUIPME EQUIPME GLU MON-50 LANCETS A4259 CRISTIN CRISTIN PER BOX 4 HOME HOME OF 100 MEDICAL MEDICAL EQUIPME EQUIPME ADMN SET A7005 YOUR YOUR W/SM VOL 4 PHARMACY PHARMACY NONFILTR PlaceFull [facility] NEBULIZR NON-DISPB L PHRM Q0513 YOUR YOUR DISPENSIN 4 PHARMACY PHARMACY G FEE PlaceFull [facility] INHALATIO N RX; PER 30 DAYS ALBUTEROL J7613 YOUR YOUR INHAL 4 PHARMACY PHARMACY NON-CP PlaceFull [facility] PROD THRU DME U DOSE 1 MG E-STIM G0283 [facility] 1/> AREAS 4 [facility] OTH THAN INC INC WND CARE PART TX PLAN APPLICATI 45610 [facility] ON 4 [facility] MODALITY INC INC 1/> AREAS HOT/COLD PACKS APPLICATI 01426 [facility] ON 4 [facility] MODALITY INC INC 1/> AREAS HOT/COLD PACKS APPL 56703 [facility] T[facility] MODALITY 4 [facility] 1/> AREAS INC INC 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 L E-STIM G0283 [facility] 1/> AREAS 4 [facility] OTH THAN INC INC WND CARE PART TX PLAN E-STIM G0283 [facility] 1/> AREAS 4 [facility] OTH THAN INC INC WND CARE PART TX PLAN APPL 78419 [facility] MODALITY 4 [facility] 1/> AREAS INC INC 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 L APPLICATI 38968 [facility] ON 4 [facility] MODALITY INC INC 1/> AREAS HOT/COLD PACKS LIPID 90613 [facility] PANEL 4 [facility] INC INC COMPREHEN 04708 [facility] SIVE 4 [facility] METABOLIC INC INC PANEL COLLECTIO 54646 [facility] N VENOUS 4 [facility] BLOOD INC INC VENIPUNCT URE E-STIM G0283 [facility] T[facility] 1/> AREAS 4 [facility] OTH THAN INC INC WND CARE PART TX PLAN APPL 72563 BR[facility] T[facility] MODALITY 4 [facility] 1/> AREAS INC INC 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 L APPL 26783 [facility] MODALITY 4 [facility] 1/> AREAS INC INC ELEC STIMJ EA 15 MIN APPLICATI 55068 [facility] ON 4 [facility] MODALITY INC INC 1/> AREAS HOT/COLD PACKS TENS E0730 EMPI INC EMPI INC DEVICE 4 4/MORE LEADS MULTI NERVE STIMULATI ON APPLICATI 73279 [facility] ON 4 [facility] MODALITY INC INC 1/> AREAS HOT/COLD PACKS BLD GLU A4253 CRISTIN AMARAL TEST/REAG 4 HOME HOME T [facility] BLD EQUIPME EQUIPME GLU MON-50 APPL 68731 [facility] MODALITY 4 [facility] 1/> AREAS INC INC 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 L LANCETS A4259 CRISTIN AMARAL PER BOX 4 HOME HOME OF 100 MEDICAL MEDICAL EQUIPME EQUIPME E-STIM G0283 [facility] 1/> AREAS 4 [facility] OTH THAN INC INC WND CARE PART TX PLAN URNLS DIP 41813 BRANDON MIRANDA 4 [facility] ANNISTON LET RGNT P NON-AUTO W/O MICRSCP E-STIM G0283 [facility] T[facility]OR 1/> AREAS 4 [facility] OTH THAN INC INC WND CARE PART TX PLAN APPLICATI 82135 [facility] ON 4 [facility] MODALITY INC INC 1/> AREAS HOT/COLD PACKS ECG 25489 BR[facility]ON WELLS ROUTINE 4 [facility] W/LEAST P 12 LDS I&R ONLY RADIOLOGI 81788 [facility] CORONEL C EXAM 4 MEDICAL AYLA CHEST 2 IMAGING VIEWS ASS FRONTAL&L ATERAL RADIOLOGI 95543 [facility] CORONEL C EXAM 4 MEDICAL AYLA CHEST 2 IMAGING VIEWS ASS FRONTAL&L ATERAL ECG 58401 MARLO KESSLER ROUTINE 4 EMERGENCY SHANTHI ECG SERVICES W/LEAST 12 [facility] I&R ONLY E-STIM G0283 [facility] T[facility]OR 1/> AREAS 4 [facility] OTH THAN INC INC WND CARE PART TX PLAN APPLICATI 26258 [facility] ON 4 [facility] MODALITY INC INC 1/> AREAS HOT/COLD PACKS APPL 72615 BR[facility] T[facility] MODALITY 4 [facility] 1/> AREAS INC INC ULTRASOUN D EA 15 MIN APPL 31427 [facility] MODALITY 4 [facility] 1/> AREAS INC INC 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 L APPL 84876 [facility] MODALITY 4 [facility] 1/> AREAS INC INC 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 L NERVE 03995 ZOROASTRIANISM GARO CONDUCTIO 4 NEUROLOGY FERNANDEZ N STUDIES CENTER 5-6 MITCH STUDIES APPL 84558 [facility] MODALITY 4 [facility] 1/> AREAS INC INC ULTRASOUN D EA 15 MIN NEEDLE 98911 ZOROASTRIANISM GARO EMG EA 4 NEUROLOGY FERNANDEZ EXTREMTY CENTER W/PARASPI MITCH NL AREA COMPLETE 3D 30657 [facility] T[facility] RENDERING 4 [facility] W/INTERP INC INC & POSTPROCE SS SUPERVISI ON 3D 89602 LEONA MORRISUTCHER RENDERING 4 MEDICAL AYLA IMAGING W/INTERP& ASS POSTPROC DIFF WORK STATION MRI 23872 LEONA CORONEL SPINAL 4 MEDICAL AYLA CANAL IMAGING LUMBAR ASS W/O CONTRAST MATERIAL APPL 62282 [facility] MODALITY 4 [facility] 1/> AREAS INC INC 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 L APPLICATI 66663 [facility] T[facility] ON 4 [facility] MODALITY INC INC 1/> AREAS HOT/COLD PACKS APPL 41650 BR[facility] MODALITY 4 [facility] 1/> AREAS INC INC ULTRASOUN D EA 15 MIN E-STIM G0283 [facility] 1/> AREAS 4 [facility] OTH THAN INC INC WND CARE PART TX PLAN E-STIM G0283 [facility] 1/> AREAS 4 [facility] OTH THAN INC INC WND CARE PART TX PLAN APPL 80789 [facility] MODALITY 4 [facility] 1/> AREAS INC INC ULTRASOUN D EA 15 MIN APPLICATI 78449 [facility] ON 4 [facility] MODALITY INC INC 1/> AREAS HOT/COLD PACKS PHYSICAL 34413 BR[facility] T[facility] THERAPY 4 [facility] EVALUATIO INC INC N APPL 52262 [facility] MODALITY 4 [facility] 1/> AREAS INC INC 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 L APPLICATI 76484 [facility] ON 4 [facility] MODALITY INC INC 1/> AREAS HOT/COLD PACKS APPL 10158 [facility] MODALITY 4 [facility] 1/> AREAS INC INC ULTRASOUN D EA 15 MIN E-STIM G0283 [facility] 1/> AREAS 4 [facility] OTH THAN INC INC WND CARE PART TX PLAN E-STIM G0283 [facility] 1/> AREAS 4 [facility] OTH THAN INC INC WND CARE PART TX PLAN APPL 41658 [facility] MODALITY 4 [facility] 1/> AREAS INC INC ULTRASOUN D EA 15 MIN APPLICATI 82104 [facility] T[facility] ON 4 [facility] MODALITY INC INC 1/> AREAS HOT/COLD PACKS APPL 98175 BR[facility] T[facility] MODALITY 4 [facility] 1/> AREAS INC INC 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 L APPL 91833 [facility]/> AREAS INC INC 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 L LANCETS A4259 CRISTIN AMARAL PER BOX 4 HOME HOME OF 100 MEDICAL MEDICAL EQUIPME EQUIPME APPLICATI 01549 [facility] MODALITY INC INC 1/> AREAS HOT/COLD PACKS APPL 41263 [facility] 4 [facility] MEM [...] INC WND CARE PART TX PLAN APPLICATI 67931 [facility] MODALITY INC INC 1/> AREAS HOT/COLD PACKS APPL 17011 [facility] 1/> AREAS INC INC ULTRASOUN D EA 15 MIN APPL 49178 [facility]/> AREAS INC INC 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 L APPL 23284 [facility]/> AREAS INC INC 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 L APPL 89812 [facility]/> AREAS INC INC ULTRASOUN D EA 15 MIN APPLICATI 36481 [facility] MODALITY INC INC 1/> AREAS HOT/COLD PACKS E-STIM G0283 [facility] 1/> [facility]AS [facility] OTH THAN INC INC WND CARE PART TX PLAN E-STIM G0283 [facility] 1/> [facility] OTH THAN INC INC WND CARE PART TX PLAN APPLICATI 21512 [facility] ON [facility] MODALITY INC INC 1/> AREAS HOT/COLD PACKS APPL 30910 [facility]/> AREAS INC INC ULTRASOUN D EA 15 MIN APPL 10243 [facility]/> 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 [address] [facility]USION 3 [facility] THERAPY INC INC PROPHYLAX IS/DX EA HOUR CYSTO 91295 [facility]AN[facility] CALIBRATI 3 [facility] URTL P STRIX/CATRACHITO NOSIS GLUC BLD 72487 [facility] GLUC MNTR 3 [facility] DEV INC INC CLEARED FDA SPEC HOME USE ANES 64002 [facility] TRANSURET 3 ANESTH HRAL OF THE W/URETHRO BLUE CYSTOSCOP Y NOS THERAPEUT 43731 [facility] IC [address] INJECTION INC [place] [address] [facility] INFUSION [facility] THERAPY/P INC INC ROPHYLAXI S /DX 1ST TO 1 HR INJECTION J2405 [facility] [address] [facility] ONDANSETR INC INC ON HCL PER 1 MG URNLS DIP 12583 [facility] M[facility]ANDA 3 [facility] STICK/[facility] ANNISTON LET RGNT P NON-AUTO W/O MICRSCP PROF SVCS 20083 MARNI MARNI ALLG 3 LUIS ALFREDO LUIS ALFREDO IMMNTX X W/PRV ALLGIC XTRCS NJXS PROF SVCS 35876 MARNI MARNI ALLG 3 LUIS ALFREDO LUIS ALFREDO IMMNTX X W/PRV ALLGIC XTRCS NJXS CUL BACT 69193 [facility] STOOL 3 [facility] AEROBIC INC INC ISOL SALMONELL A&SHIGELL SUSCEPTIB 86052 [facility] LTY STDY [address] [facility] [facility] ANTIMICRB INC INC IAL MICRO/AGA R DILUTJ INJECTION J2785 [facility] REGADENOS INC INC ON 0.1 MG SMR PRIM 21127 [facility] SRC [address] [facility] GRAM/GIEM INC INC SA STAIN BCT FUNGI/VERÓNICA L TECHNETIU A9500 [facility] TC-99M [address] [facility] SESTAMIBI INC INC DX PER STUDY DOSE CV STRS 58103 [facility] TST 3 [facility] XERS&/OR INC INC RX CONT ECG TRCG ONLY MYOCARDIA 83919 LEONA Yoon SPECT 3 MEDICAL AYLA MULTIPLE IMAGING STUDIES ASS COMPREHEN 40317 [facility] SIVE 3 [facility] [address] [facility] LIPASE 3 [facility] INC INC COLLECTIO 63443 [facility] N VENOUS 3 [facility] BLOOD INC INC VENIPUNCT URE BLOOD 34439 [facility] COUNT 3 [facility] COMPLETE INC INC AUTO&[place] [address] [facility] AMYLASE [address] [facility] INC INC ALBUTEROL J7613 YOUR YOUR INHAL 3 PHARMACY PHARMACY NON-CP PlaceFull [facility] PROD THRU DME U DOSE 1 MG PHRM Q0513 YOUR YOUR DISPENSIN 3 PHARMACY PHARMACY G FEE [facility] INHALATIO N RX; PER 30 DAYS SUSCEPTIB 84189 [facility] LTY STDY [address] [facility] ANTIMICRB INC INC IAL MICRO/AGA R DILUTJ URNLS DIP 85238 [facility] MIRANDA 3 [facility] LET RGNT P NON-AUTO W/O MICRSCP CULTURE 30151 [facility] BACTERIAL [address] [facility] [facility] INC INC QUANTTATI VE COLONY COUNT URINE CULTURE 95387 [facility] BCT [address] [facility] ISOL&PRSM INC INC PTV ID ISOLATE EA URINE INSJ 23897 [facility] MIRANDA NON-NDWEL 3 [facility] BLADDER P CATHETER 3D 42591 [facility] RENDERING [address] [facility] [address] [facility] INC INC W/INTERP& POSTPROC DIFF WORK STATION COMPREHEN 23144 [facility] SIVE 3 [facility] METABOLIC INC INC PANEL RADEX ABD 90938 [facility] COMPL 3 [facility] AQT ABD INC INC W/S/E/D VIEWS 1 VIEW CH BLOOD 46129 [facility] COUNT 3 [facility] COMPLETE INC INC AUTO&[place] [address] [facility] LIPASE 3 [facility] INC INC INJECTION J2405 [facility] [address] [facility] ONDANSETR INC INC ON HCL PER 1 MG PROF SVCS 18238 MARNI MARNI ALLG 3 LUIS ALFREDO LUIS ALFREDO IMMNTX X W/PRV ALLGIC XTRCS NJXS THERAPEUT 65463 [facility] IC 3 [facility] PROPHYLAC INC INC TIC/DX INJECTION SUBQ/[place] [address] [facility] ABDOMEN & [address] [facility] PELVIS INC INC W/O CONTRAST MATERIAL SPMTRY 04700 MARNI MARNI W/VC 3 LUIS ALFREDO LUIS ALFREDO EXPIRATOR Y LULU W/WO MXML VOL VNTJ PROF SVCS 30701 MARNI MARNI ALLG 3 LUIS ALFREDO LUIS ALFREDO IMMNTX X W/PRV ALLGIC XTRCS NJXS CULTURE 17673 [facility] BACTERIAL 3 [facility] INC INC QUANTTATI VE COLONY COUNT URINE PROF SVCS 43754 MARNI MARNI ALLG 3 LUIS ALFREDO LUIS ALFREDO IMMNTX X W/PRV ALLGIC XTRCS NJXS PROF SVCS 54399 MARNI MARNI ALLG 3 LUIS ALFREDO LUIS ALFREDO IMMNTX X W/PRV ALLGIC XTRCS NJXS CULTURE 11534 COMBINED COMBINED BACTERIAL 3 PHYSICIAN PHYSICIAN S LA S LA QUANTTATI VE COLONY COUNT URINE BLOOD 91285 [facility] COUNT 3 [facility] COMPLETE INC INC AUTO&AUTO DIFRNTL WBC COLLECTIO 68553 [facility] N VENOUS [address] [facility] BLOOD INC INC VENIPUNCT URE POSTERIOR V2632 [facility] CHAMBER [address] [facility] INTRAOCUL INC INC AR LENS GLUC BLD 54934 [facility] GLUC MNTR [address] [facility] DEV INC [place] [address] [facility] INFUSION [address] [facility] THERAPY INC INC PROPHYLAX IS/DX EA HOUR PROF SVCS 48015 MARNI MARNI ALLG 3 LUIS ALFREDO LUIS ALFREDO IMMNTX [place] [address] [facility] INFUSION 3 [facility] THERAPY/P INC INC ROPHYLAXI S /DX 1ST TO 1 HR CATARACT 67170 [facility] REMOVAL 3 [facility] COMPREHEN 51692 [facility] SIVE 3 [facility] METABOLIC INC INC PANEL CULTURE 36579 [facility] BACTERIAL 3 [facility] INC INC QUANTTATI VE COLONY COUNT URINE BLOOD 93203 [facility] COUNT 3 [facility] COMPLETE INC INC AUTO&AUTO DIFRNTL WBC COLLECTIO 67556 [facility] N VENOUS 3 [facility] BLOOD INC INC VENIPUNCT URE PROF SVCS 72714 MARNI MARNI ALLG 3 LUIS ALFREDO LUIS ALFREDO IMMNTX X W/PRV ALLGIC XTRCS NJXS PROF SVCS 33346 MARNI MARNI ALLG 3 LUIS ALFREDO LUIS ALFREDO IMMNTX X W/PRV ALLGIC XTRCS NJXS SPMTRY 95639 MARNI MARNI W/VC 3 LUIS ALFREDO LUIS ALFREDO EXPIRATOR Y LULU W/WO MXML VOL VNTJ POSTERIOR V2632 [facility] CHAMBER 3 [facility] INTRAOCUL INC INC AR LENS GLUC BLD 82704 [facility] GLUC MNTR 3 [facility] DEV INC [place] [address] [facility] INFUSION 3 [facility] THERAPY INC INC PROPHYLAX IS/DX EA HOUR OPH BMTRY 70970 [facility] 3 [facility] [place] [address] [facility] INFUSION 3 [facility] THERAPY/P INC INC ROPHYLAXI S /DX 1ST TO 1 HR CATARACT 54758 [facility] REMOVAL 3 [facility] LENS SUSCEPTIB 81993 [facility] LTY STDY 3 [facility] ANTIMICRB INC INC IAL MICRO/AGA R DILUTJ CULTURE 07230 [facility] BACTERIAL 3 [facility] INC INC QUANTTATI VE COLONY COUNT URINE CULTURE 92495 [facility] BCT 3 [facility] ISOL&PRSM INC INC PTV ID ISOLATE EA URINE URNLS DIP 20521 [facility] 3 [facility] PETR STICK/TAB INTERNAL LET RGNT MED NON-AUTO W/O MICRSCP ADMN SET A7005 YOUR YOUR W/SM VOL 3 PHARMACY PHARMACY NONFILTR PlaceFull [facility] NEBULIZR NON-DISPB L ALBUTEROL J7613 YOUR YOUR INHAL 3 PHARMACY PHARMACY NON-CP PlaceFull [facility] PROD THRU DME U DOSE 1 MG PHRM Q0513 YOUR YOUR DISPENSIN 3 PHARMACY PHARMACY G FEE PlaceFull [facility] INHALATIO N RX; PER 30 DAYS BRNCDILAT 41802 MARNI MARNI RSPSE 3 LUIS ALFREDO LUIS ALFREDO SPMTRY PRE&POST- BRNCDILAT ADMN PRESSURIZ 77978 MARNI MARNI ED/NONPRE 3 LUIS ALFREDO LUIS ALFREDO SSURIZED INHALATIO N TREATMENT THERAPEUT 86815 MARNI MARNI IC 3 LUIS ALFREDO LUIS ALFREDO PROPHYLAC TIC/DX INJECTION SUBQ/IM DEMO&/POLLY 47813 MARNI MARNI L OF PT 3 LUIS ALFREDO LUIS ALFREDO UTILIZ AERSL GEN/NEB/I NHLR/IP RADIOLOGI 16468 [facility] C EXAM 3 [facility] CHEST 2 INC INC VIEWS FRONTAL&L ATERAL C-REACTIV 65597 [facility] E PROTEIN 3 [facility] INC INC SEDIMENTA 70093 [facility] TION RATE 3 [facility] RBC INC INC NON-AUTOM ATED INJECTION J1040 MARNI MARNI 3 LUIS LAFREDO LUIS ALFREDO METHYLPRE DNISOLONE ACETATE 80 MG COMPLEMEN 98284 [facility] T TOTAL 3 [facility] HEMOLYTIC INC INC INJECTION J2010 MARNI MARNI 3 LUIS ALFREDO LUIS ALFREDO LINCOMYCI N HCL UP TO 300 MG RHEUMATOI 70719 [facility] D FACTOR 3 [facility] QUANTITAT INC INC ANNABELLA ANTIBODY 24088 [facility] BACTERIUM 3 [facility] NOT INC INC ELSEWHERE SPECIFIED BLOOD 74561 [facility] COUNT 3 [facility] COMPLETE INC INC AUTO&[place] [address] [facility] THYROID 3 [facility] STIMULATI [place] [address] [facility] GAMMAGLOB 3 [facility] ULIN IGE INC INC CYANOCOBA 69029 [facility] PRATEEK 3 [facility] VITAMIN INC INC B-12 25 01840 [facility] HYDROXY 3 [facility] INCLUDES INC INC FRACTIONS IF PERFORMED COLLECTIO 09529 [facility] N VENOUS 3 [facility] [place] [address] [facility] THYROXINE 3 [facility] TOTAL INC INC GAMMAGLOB 69529 [facility] ULIN 3 [facility] IMMUNOGLO INC INC BULIN SUBCLASSE S ANTINUCLE 77704 [facility] AR 3 [facility] [place] [address] [facility] GAMMAGLOB 3 [facility] ULIN IGA INC INC IGD IGG IGM EACH RADEX 98241 [facility] RIBS UNI 3 [facility] W/POSTERO INC INC ANT CH MINIMUM 3 VIEWS CULTURE 22873 COMBINED COMBINED BACTERIAL 3 PHYSICIAN PHYSICIAN S LA S LA QUANTTATI VE COLONY COUNT URINE PROF SVCS 60234 MARNI MARNI ALLG 3 LUIS ALFREDO LUIS ALFREDO IMMNTX X W/PRV ALLGIC XTRCS NJXS URNLS DIP 40758 [facility] 3 [facility] CECE STICK/TAB INTERNAL LET RGNT MEDI NON-AUTO W/O MICRSCP OPHTH 62420 [facility] 3 EYE JANET XM&EVAL INSTITUTE COMPRE NEW PT 1/> VST OPH BMTRY 54377 [facility] 3 [facility] A-SCAN IO LENS PWR [place] COLLECTIO 29758 [facility]ON N VENOUS 3 [facility] BLOOD INC INC VENIPUNCT URE BLOOD 90177 [facility] COUNT 3 [facility] COMPLETE INC INC AUTO&AUTO DIFRNTL WBC BLOOD 16542 [facility] COUNT 3 [facility] COMPLETE INC INC AUTO&AUTO DIFRNTL WBC URNLS DIP 34595 [facility] 3 [facility]LEY JR PETR STICK/TAB INTERNAL LET RGNT MED NON-AUTO W/O MICRSCP COLLECTIO 02563 [facility] N VENOUS 3 [facility] BLOOD INC INC VENIPUNCT URE COMPREHEN 11466 [facility] SIVE 3 [facility] METABOLIC INC INC PANEL RADIOLOGI 84016 [facility] C EXAM 3 [facility] CHEST 2 INC INC VIEWS FRONTAL&L ATERAL PROF [facility] 69270 MARNI MARNI ALLG 3 LUIS ALFREDO LUIS ALFREDO IMMNTX X W/PRV ALLGIC XTRCS NJXS PROF [facility] 90581 MARNI MARNI ALLG 3 LUIS ALFREDO LUIS ALFREDO IMMNTX X W/PRV ALLGIC XTRCS NJXS LANCETS A4259 M E D M E D PER BOX 3 SUPPLIES SUPPLIES OF 100 PREPJ& 84186 MARNI MARNI ALLERGEN 3 LUIS ALFREDO LUIS ALFREDO IMMUNOTHE RAPY 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 BLD GLU A4253 M E D M E D TEST/REAG 3 SUPPLIES SUPPLIES T STRIPS HOME BLD GLU MON-50 PROF [facility] 03359 MARNI MARNI ALLG 3 LUIS ALFREDO LUIS ALFREDO IMMNTX X W/PRV ALLGIC XTRCS NJXS PROF [facility] 53950 MARNI MARNI ALLG 3 LUIS ALFREDO LUIS ALFREDO IMMNTX X W/PRV ALLGIC XTRCS NJXS SUSCEPTIB 40399 [facility] LTY STDY 3 [facility] ANTIMICRB INC INC IAL MICRO/AGA R DILUTJ COMPREHEN 75091 [facility] SIVE 3 [facility] METABOLIC INC INC PANEL URNLS DIP 19103 [facility] 3 [facility] STICK/TAB INC INC LET REAGENT AUTO MICROSCOP Y COLLECTIO 86873 [facility] N VENOUS 3 [facility] BLOOD INC INC VENIPUNCT URE CULTURE 21644 [facility] BCT 3 [facility] ISOL&PRSM INC INC PTV ID ISOLATE EA URINE CULTURE 84985 [facility] BACTERIAL 3 [facility] INC INC QUANTTATI VE COLONY COUNT URINE BLOOD 80761 [facility] COUNT 3 [facility] COMPLETE INC INC AUTO&AUTO DIFRNTL WBC CANE INCL E0100 CRISTIN CRISTIN CANES 3 HOME HOME ALL MEDICAL MEDICAL MATERIAL EQUIPME EQUIPME ADJUSTBLE /FIX W/TIP DXA BONE 75537 [facility] DENSITY 3 MEDICAL AYLA STUDY 1/> IMAGING SITES ASS AXIAL SKEL PROF [facility] 29167 MARNI MARNI ALLG 3 LUIS ALFREDO LUIS ALFREDO IMMNTX X W/PRV ALLGIC XTRCS NJXS RADIOLOGI 42257 [facility] C EXAM 3 MEDICAL AYLA CHEST 2 IMAGING VIEWS ASS FRONTAL&L ATERAL RADIOLOGI 75873 [facility] C EXAM 3 MEDICAL AYLA KNEE IMAGING COMPLETE ASS 4/MORE VIEWS PROF [facility] 23377 MARNI MARNI ALLG 3 LUIS ALFREDO LUIS ALFREDO IMMNTX X W/PRV ALLGIC XTRCS NJXS CULTURE 03636 COMBINED COMBINED BACTERIAL 3 PHYSICIAN PHYSICIAN S LA S LA QUANTTATI VE COLONY COUNT URINE URNLS DIP 00581 [facility] 3 VALLEY CECE STICK/TAB INTERNAL LET RGNT MEDI NON-AUTO W/O MICRSCP PROF [facility] 41810 MARNI MARNI ALLG 3 LUIS ALFREDO LUIS ALFREDO IMMNTX X W/PRV ALLGIC XTRCS NJXS COLLECTIO 44320 [facility] N VENOUS 3 [facility] [place] [address] [facility] RABAGOON BLOOD/URI 3 [facility] C ACID INC INC PROF SVCS 10186 MARNI MARNI ALLG 3 LUIS ALFREDO LUIS ALFREDO IMMNTX X W/PRV ALLGIC XTRCS NJXS PROF SVCS 81893 AMRNI MARNI ALLG 3 LUIS ALFREDO LUIS ALFREDO IMMNTX X W/PRV ALLGIC XTRCS NJXS PROF SVCS 46760 MARNI MARNI ALLG 3 LUIS ALFREDO LUIS ALFREDO IMMNTX X W/PRV ALLGIC XTRCS NJXS PROF SVCS 65798 MARNI MARNI ALLG 3 LUIS ALFREDO LUIS ALFREDO IMMNTX X W/PRV ALLGIC XTRCS NJXS PROF SVCS 36111 MARNI MARNI ALLG 3 LUIS ALFREDO LUIS ALFREDO IMMNTX X W/PRV ALLGIC XTRCS NJXS PERCUTANE 72450 MARNI MARNI OUS TESTS 3 LUIS ALFREDO LUIS ALFREDO W/ALLERGE ALVARADO EXTRACTS SPMTRY 74481 MARNI MARNI W/VC 3 LUIS ALFREDO LUIS ALFREDO EXPIRATOR Y LULU W/WO MXML VOL VNTJ SPRING-PO A4258 M E D M E D WERED 3 SUPPLIES SUPPLIES DEVICE FOR LANCET EACH REPL DEYSI A4235 M E D M E D LITHIUM 3 SUPPLIES SUPPLIES MED NECES OSCAR BG MON OWN PT EA NORMAL A4256 M E D M E [...] DNSITY INSRT CSTM MOLD CSTM EA SPMTRY 48672 MARNI MARNI W/VC 3 LUIS ALFREDO LUIS ALFREDO EXPIRATOR Y LULU W/WO MXML VOL VNTJ CYSTOURET 34042 [facility] PHILIP JR HROSCOPY 3 [place] [address] [facility] TRANSVAGI 3 [facility] NAL INC INC COMPUTER- 03-01-201 24239 [facility] CORONEL AIDED 3 MEDICAL AYLA DETECTION IMAGING ASS SCREENING MAMMOGRAP HY SCREENING G0202 [facility] CORONEL 3 MEDICAL AYLA MAMMOGRAP IMAGING HY DURGA ASS INCL CAD WHEN PERFORMD NJX 23820 [facility] CORONEL RETROGRAD 3 MEDICAL AYLA E IMAGING URETHROCS ASS TOGRAPY LOCM Q9965 [facility] 100-199 3 [facility] MG/ML INC INC IODINE CONCENTRA TION PER ML URETHROCY 55379 LE[facility] CORONEL STOGRAPHY 3 MEDICAL AYLA VOIDING IMAGING RS&I ASS CULTURE 10983 COMBINED COMBINED BACTERIAL 3 PHYSICIAN PHYSICIAN S LA S LA QUANTTATI VE COLONY COUNT URINE URNLS DIP 47917 [facility] 3 [facility] STICK/TAB INTERNAL INTERNAL LET RGNT MEDI MEDI NON-AUTO W/O MICRSCP IM ADM 74160 [facility] PRQ ID 3 [facility] SUBQ/IM INTERNAL NJXS 1 MEDI VACCINE INJECTION J0696 [facility] 3 [facility] CEFTRIAXO INTERNAL NE SODIUM MEDI PER [facility] [address] [place] [address] INTERNAL MANAGEMEN MED T 30 MIN/< SBSQ [address] [place] [address]/DAY INTERNAL 25 MED MINUTES SBSQ 95659 [facility] [address]/DAY INTERNAL 25 MED MINUTES SBSQ 89524 [facility] [address]/DAY INTERNAL 25 MED MINUTES 25049 [facility] CORONEL RETROPERI 3 MEDICAL AYLA TONEAL IMAGING REAL TIME ASS W/IMAGE COMPLETE SBSQ [address]/DAY INTERNAL 25 MED MINUTES FULL FACE A7030 [facility] MASK 3 MEDICAL MEDICAL USED SUPPLY SUPPLY W/POS INC. INC. Treatspace DEVICE EA INITIAL 33513 [facility] 3 [facility] JR PETR CARE/DAY INTERNAL 50 MED MINUTES URNLS DIP 24219 KARMEN'Mamta CARIAS 3 [facility] STICK/TAB CLINIC OF LET RGNT SONIA NON-AUTO W/O MICRSCP CULTURE 63770 COMBINED COMBINED BACTERIAL 3 PHYSICIAN PHYSICIAN Mamta SIMS QUANTTATI VE COLONY COUNT URINE SCR G0145 PATHOLOGY PATHOLOGY CYTOPATH 3 & & CERV/VAG CYTOLOGY CYTOLOGY SCR LAB LAB AUTO&MNL RSCR PHYS CERV/VAGI G0101 [facility] NAL [facility] OF SCR; SONIA PELV&CLIN BREAST EXAM SCREEN Q0091 [facility] CARIAS PAP 3 [facility] SMEAR; CLINIC OF OBTAIN SONIA PREP &C ONVEY TO LAB CULTURE 29240 COMBINED COMBINED BACTERIAL 3 PHYSICIAN PHYSICIAN S MATEO SIMS QUANTTATI VE COLONY COUNT URINE URNLS DIP 64943 [facility] 3 VALLEY CECE STICK/TAB INTERNAL LET RGNT MEDI NON-AUTO W/O MICRSCP CULTURE 55327 [facility] BCT 3 [facility] ISOL&PRSM INC INC PTV ID ISOLATE EA URINE CULTURE 03297 [facility] BACTERIAL 3 [facility] INC INC QUANTTATI VE COLONY COUNT URINE HEMOGLOBI 20900 [facility] N 3 [facility] GLYCOSY[place] [address] [facility] THYROID 3 [facility] STIMULATI INC INC NG HORMONE TSH BLOOD 13207 [facility] COUNT 3 [facility] COMPLETE INC INC AUTO&AUTO DIFRNTL WBC ALBUMIN 75400 [facility] URINE 3 [facility] MICROALBU INC INC MIN QUANTIATI VE COLLECTIO 22265 [facility] N VENOUS 3 [facility] BLOOD INC INC VENIPUNCT URE LIPID 10045 [facility] PANEL 3 [facility] INC INC COMPREHEN 91364 [facility] SIVE 3 [facility] METABOLIC INC INC PANEL SUSCEPTIB 86287 [facility] LTY STDY 3 [facility] ANTIMICRB INC INC IAL MICRO/AGA R DILUTJ INITIAL 45578 [facility] INPATIENT 3 PSC CONSULT NEW/ESTAB PT 80 MIN SBSQ 04888 [facility] HOSPITAL 3 PSC CARE/DAY 35 MINUTES SBSQ 50861 INPATIENT [facility] 3 CARE, CARE/DAY PLLC 25 MINUTES SBSQ 91693 INPATIENT [facility] 3 CARE, CARE/DAY PLLC 35 MINUTES NEBULIZER E0570 CRISTIN AMARAL WITH 3 HOME HOME [facility] MEDICAL MEDICAL R EQUIPME EQUIPME SBSQ 81104 INPATIENT [facility] 3 CARE, CARE/DAY PLLC 25 MINUTES SBSQ 11470 INPATIENT [facility] 3 CARE, CARE/DAY PLLC 35 MINUTES INITIAL 99613 INPATIENT [facility] 3 CARE, CARE/DAY PLLC 50 MINUTES BLD GLU A4253 M E D M E D TEST/REAG 2 SUPPLIES SUPPLIES T STRIPS HOME BLD GLU MON-50 LANCETS A4259 M E D M E D PER BOX 2 SUPPLIES SUPPLIES [place] 100 IV [address] [facility] INFUSION 2 [facility] THERAPY INC INC PROPHYLAX IS/DX EA HOUR URNLS DIP 88246 [facility] [address] [facility] STICK/TAB INC INC LET REAGENT AUTO MICROSCOP Y BASIC 24516 [facility] METABOLIC [address] [facility] PANEL INC INC CALCIUM TOTAL CULTURE 19118 [facility] BCT [address] [facility] ISOL&PRSM INC INC PTV ID ISOLATE EA URINE CULTURE 77177 [facility] BACTERIAL 2 [facility] INC INC QUANTTATI VE COLONY COUNT URINE BLOOD 12256 [facility] COUNT 2 [facility] COMPLETE INC INC AUTO&AUTO DIFRNTL WBC SUSCEPTIB 13595 [facility] LTY STDY [address] [facility] ANTIMICRB INC INC IAL MICRO/AGA R DILUTJ INJECTION J2405 [facility] [address] [facility] ONDANSETR INC INC ON HCL PER 1 MG THERAPEUT 00285 [facility] IC [address] [facility] INJECTION [place] [address] [facility] INFUSION 2 [facility] THERAPY/P INC INC ROPHYLAXI S /DX 1ST TO 1 HR RADIOLOGI 28277 [facility] C EXAM 2 MEDICAL AYLA CHEST 2 IMAGING VIEWS ASS FRONTAL&L ATERAL NASL A7034 LIBFERNANDO CLEMENS INTRFCE 2 MEDICAL MEDICAL POS ARWAY SUPPLY SUPPLY PRSS INC. INC. DEVC W/WO HEAD STRAP HEADGEAR A7035 LIBFERNANDO LIBERTY USED 2 MEDICAL MEDICAL W/POSITIV SUPPLY SUPPLY E AIRWAY INC. INC. PRESSURE DEVICE RADIOLOGI 55081 [facility] C 2 MEDICAL AYLA EXAMINATI IMAGING ON KNEE ASS 1/2 VIEWS RADEX 46148 [facility] FINGR 2 MEDICAL AYLA MINIMUM 2 IMAGING VIEWS ASS RADEX 76210 [facility] HUMERUS 2 MEDICAL AYLA MINIMUM 2 IMAGING VIEWS ASS BLD GLU A4253 [facility] TEST/REAG 2 [facility] T STRIPS PHARMACY PHARMACY HOME BLD LLC, D LLC, D GLU MON-50 NEBULIZER E0570 CRISTIN AMARAL WITH 2 HOME HOME [facility] MEDICAL MEDICAL R EQUIPME EQUIPME COLONOSCO 44092 COLORECTA PALOMO PY 2 L SURGIAL CATRACHITO W/BIOPSY SINGLE/MU ASSOCIATE LTIPLE ENDOSCOPY 38439 ZOROASTRIANISM ZOROASTRIANISM UPPER 2 PHYS SURG PHYS SURG SMALL CTR CTR INTESTINE W/BIOPSY EGD 51602 COLORECTA PALOMO TRANSORAL 2 L SURGIAL CATRACHITO BIOPSY SINGLE/MU ASSOCIATE LTIPLE ANES 26401 [facility] FERGUSON LOWER 2 [place] JAM INTESTINE ANESTHESI A ENDOSCOPY DISTAL DUODENUM RADEX 94286 [facility] SMALL 2 ZOROASTRIANISM ZOROASTRIANISM INTESTINE HOSP HOSP W/MULTIPL E SERIAL IMAGES SPECIAL 53301 [facility] STAIN 2 ZOROASTRIANISM ZOROASTRIANISM GROUP 1 HOSP HOSP MICROORGA NISMS I&[place] [address] [facility] SURG 2 ZOROASTRIANISM ZOROASTRIANISM PATHOLOGY HOSP HOSP GROSS&SHANTHI ROSCOPIC EXAM RADIOLOGI 85683 [facility] [place] GARCIA C 2 RADIOLOGY RAY EXAMINATI ON CHEST SINGLE VIEW FRONTAL ECG 94274 [facility] ROUTINE 2 KAMAR DEIDRA ECG EMERGENCY W/LEAST PHYS 12 LDS I&R ONLY NEBULIZER E0570 CRISTIN AMARAL WITH 2 HOME HOME [facility]PRESS[facility] MEDICAL MEDICAL R EQUIPME EQUIPME BLD GLU A4253 [facility] TEST/REAG 2 CVS CVS T STRIPS PHARMACY PHARMACY HOME BLD LLC, D LLC, D GLU MON-50 ACUTE 34024 [facility] HEPATITIS 2 AMERIC AMERIC PANEL HOLDING HOLDING CYANOCOBA 53764 [facility] PRATEEK 2 AMERIC AMERIC VITAMIN HOLDING HOLDING B-[address] [place] [address] [facility] LIPASE 2 [employer] [place] [address] LAB [facility] FOLIC 2 [employer] [place] [address] LAB [facility] LAB [facility] AMYLASE 2 AMERIC AMERIC HOLDING HOLDING HEMOGLOBI 69549 LAB [facility] LAB [facility] N 2 AMERIC AMERIC GLYCOSYLA HOLDING HOLDING ML A1C ADMINISTR G0008 [facility] ATION OF 2 HEALTHCAR TAR INFLUENZA E CENTER VIRUS VACCINE INFLUENZA Q2036 [facility] VACC 2 HEALTHCAR TAR SPLIT E CENTER VIRUS 3 YRS & > IM FLULAVAL NEBULIZER E0570 [facility] AMARAL WITH 2 HOME HOME [facility] R EQUIPME EQUIPME HOME E0607 [facility] BLOOD 2 [facility], D , [place] [address] LAB YANIRA LAB [facility] THYROID 2 AMERIC AMERIC STIMULATI HOLDING HOLDING NG HORMONE TSH LANCETS A4259 [facility] PER BOX 2 [facility], D , D COMPREHEN 34447 LAB [facility] SIVE 2 [employer] METABOLIC HOLDING HOLDING PANEL HEPATITIS 00913 LAB YANIRA LAB YAN[facility] ANTIBODY 2 AMERIC AMERIC HAAB IGM HOLDING HOLDING ANTIBODY LANCETS A4259 M E D M E D PER BOX 2 SUPPLIES SUPPLIES OF 100 BLD GLU A4253 M E D M E D TEST/REAG 2 SUPPLIES SUPPLIES T STRIPS HOME BLD GLU MON-50 NORMAL A4256 M E D M E D LOW AND 2 SUPPLIES SUPPLIES HIGH CALIBRATO R SOLUTION/ CHIPS REPL DEYSI A4235 M E D M E D LITHIUM 2 SUPPLIES SUPPLIES MED NECES OSCAR BG MON OWN PT EA SPRING-PO A4258 M E D M E D WERED 2 SUPPLIES SUPPLIES DEVICE FOR LANCET EACH SBSQ 72947 [facility] 2 PSC CARE/DAY 25 MINUTES TRANS R0070 [facility] PRTBL 2 MOBILE MOBILE X-RAY DIAGNOSTI DIAGNOSTI EQP&PERS C SE C SE OSCAR/NRS OSCAR-TRIP 1 PT RADEX 61409 [facility] SPINE 2 MOBILE MOBILE CERVICAL DIAGNOSTI DIAGNOSTI 2 OR 3 C SE C SE VIEWS SET-UP Q0092 [facility] PORTABLE 2 MOBILE MOBILE X-RAY DIAGNOSTI DIAGNOSTI EQUIPMENT C SE C SE SBSQ 44275 [facility] 2 PSC CARE/DAY 25 MINUTES SBSQ 27250 INPATIENT [facility] 2 CARE, CARE/[place] [address] [place] [address] [facility] [place] [facility] HEAD/BRAI 2 RADIOLOGY JULIÁN N W/O CONTRAST MATERIAL ECG [address] [facility] ROUTINE 2 [facility] ECG CARDIOLOG W/LEAST Y CLINIC 12 LDS I&R ONLY SBSQ 28528 [facility] 2 PSC CARE/DAY 25 MINUTES SBSQ 17231 [facility] 2 PSC CARE/DAY 25 MINUTES NEBULIZER E0570 CRISTIN AMARAL WITH 2 HOME HOME [facility] R EQUIPME EQUIPME DUP-SCAN 97778 [facility] [place] BRIZUELA JAM XTR VEINS 2 RADIOLOGY UNILATERA L/LIMITED STUDY ECG 51906 [facility] ROUTINE 2 MOBILE MOBILE ECG DIAGNOSTI DIAGNOSTI W/LEAST C SE C SE 12 LDS TRCG ONLY W/O I&R TRANS R0075 [facility] PRTBL 2 MOBILE MOBILE XRAY DIAGNOSTI DIAGNOSTI EQP&PERS C SE C SE OSCAR/NRS OSCAR-TRIP> 1 PT SET-UP Q0092 [facility] PORTABLE 2 MOBILE MOBILE X-RAY DIAGNOSTI DIAGNOSTI EQUIPMENT C SE C SE RADIOLOGI 23021 [facility] EXPRESS C EXAM 2 MOBILE MOBILE CHEST 2 DIAGNOSTI DIAGNOSTI VIEWS C SE C SE FRONTAL&L ATERAL SBSQ 32510 [facility] 2 PSC CARE/DAY 35 MINUTES COLLECTIO 69343 [facility] N VENOUS [address] [facility] BLOOD INC INC VENIPUNCT URE ANTINUCLE 41845 [facility] AR [address] [facility] [address] [facility] ANTIBODIE INC INC S NADINE BASIC 43986 [facility] METABOLIC [address] [facility] [address] PANEL INC INC CALCIUM TOTAL DNA 02929 [facility] ANTIBODY [address] [facility] IVANOF BAY/DO INC INC UBLE STRANDED DNA 93381 [facility] ANTIBODY [address] [facility] SINGLE INC INC STRANDED SEDIMENTA 43112 [facility] TION RATE [address] [facility] RBC INC INC NON-AUTOM ATED SKIN TEST 95354 [facility] 2 [facility] TUBERCULO INTERNAL SIS MEDI INTRADERM AL IM ADM 88469 [facility] PRQ ID 2 [facility] SUBQ/IM INTERNAL NJXS 1 MEDI VACCINE CARCINOEM 40606 [facility] BRYONIC [address] [facility] ANTIGEN INC INC CEA COMPREHEN 62179 [facility] RABAGOON SIVE 2 [facility] METABOLIC INC INC PANEL COLLECTIO 14405 [facility] N VENOUS [address] [facility] [place] [address] [facility] LIPASE 2 [place] [address] [facility] THYROID [address] [facility] [facility] STIMULATI INC INC NG HORMONE TSH BLOOD 95544 [facility] COUNT [address] [facility] [facility] COMPLETE INC INC AUTO&[place] [address] [facility] AMYLASE [address] [facility] INC INC NEBULIZER E0570 CRISTIN AMARAL WITH 2 HOME HOME [facility] R EQUIPME EQUIPME COLLECTIO 40107 [facility] N VENOUS 2 Y Y BLOOD [facility] VENIPUNCT URE BLOOD 69673 [facility] COUNT 2 Y Y COMPLETE [facility] AUTO&AUTO DIFRNTL WBC BASIC 02924 [facility] METABOLIC 2 Y Y PANEL [facility] CALCIUM TOTAL INJECTION J2270 [facility] MORPHINE 2 Y Y SULFATE [facility] UP TO 10 MG INJECTION J2405 [facility] 2 [facility] [place] [address] [place] [address] [place] TOD MAXILLOFA 2 MEDICAL CIAL SERV W/CONTRAS FOUNDATIO T MATERIAL LOCM Q9967 [facility] [phone] 2 Y Y MG/ML [facility] IODINE CONCENTRA TION PER ML THERAPEUT 28366 [facility] IC 2 Y Y INJECTION [facility] [place] [address] [facility] INFUSION 2 Y Y THERAPY/P [facility] ROPHYLAXI S /DX 1ST TO 1 HR PREPJ& 97099 MARNI MARNI ALLERGEN 2 LUIS ALFREDO LOBATO IMMUNOTHE RAPY 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 ANTIGEN NEBULIZER E0570 CRISTIN AMARAL WITH 2 HOME [facility] R EQUIPME EQUIPME PROF [facility] 98791 MARNI MARNI ALLG 2 LUIS ALFREDO LUIS ALFREDO IMMNTX X W/PRV ALLGIC XTRCS NJXS PROF [facility] 94525 MARNI MARNI ALLG 2 LUIS ALFREDO LUIS ALFREDO IMMNTX X W/PRV ALLGIC XTRCS NJXS PROF [facility] 51583 MARNI MARNI ALLG 2 LUIS ALFREDO LUIS ALFREDO IMMNTX X W/PRV ALLGIC XTRCS NJXS LANCETS A4259 M E D M E D PER BOX 2 SUPPLIES SUPPLIES OF 100 BLD GLU A4253 M E D M E D TEST/REAG 2 SUPPLIES SUPPLIES T STRIPS HOME BLD GLU MON-50 NORMAL A4256 M E D M E D LOW AND 2 SUPPLIES SUPPLIES HIGH CALIBRATO R SOLUTION/ CHIPS PROF [facility] 90196 MARNI MARNI ALLG 2 LUIS ALFREDO LUIS ALFREDO IMMNTX X W/PRV ALLGIC XTRCS NJXS PROF SVCS 86514 MARNI MARNI ALLG 2 LUIS ALFREDO LUIS ALFREDO IMMNTX X W/PRV ALLGIC XTRCS NJXS THER 60569 [facility] PROPH/DX 2 [facility] NJX IV INC INC PUSH SINGLE/1S T SBST/DRUG RADIOLOGI 26211 [facility] C [facility] EXAMINATI INC INC ON CHEST SING[place] FRONTAL COMPREHEN 24560 [facility] SIVE 2 [facility] METABOLIC INC INC PANEL CREATINE 47574 [facility] KINASE 2 [facility] TOTAL INC INC ECG 28093 MARLO FATIMA ROUTINE 2 EMERGENCY PETR ECG SERVICES W/LEAST 12 LDS I&R ONLY ECG 76050 [facility] ROUTINE 2 [facility] ECG INC INC W/LEAST 12 LDS TRCG ONLY W/O I&R BLOOD 20239 [facility] COUNT 2 [facility] COMPLETE INC INC AUTO&AUTO DIFRNTL WBC CREATINE 44866 [facility] KINASE MB 2 [facility] [place] [address] [facility] TROPONIN [address] [facility] QUANTITAT INC INC ANNABELLA NATRIURET 20419 [facility] IC [address] [facility] PEPTIDE INC INC PROF SVCS 58887 MARNI MARNI ALLG 2 LUIS ALFREDO LUIS ALFREDO IMMNTX X W/PRV ALLGIC XTRCS NJXS PROF SVCS 39662 MARNI MARNI ALLG 2 LUIS ALFREDO LUIS ALFREDO IMMNTX X W/PRV ALLGIC XTRCS NJXS THERAPEUT 52846 [facility] IC [facility] INJECTION INC INC IV PUSH EACH NEW DRUG PROF SVCS 69581 MARNI MARNI ALLG 2 LUIS ALFREDO LUIS ALFREDO IMMNTX X W/PRV ALLGIC XTRCS NJXS THER 25910 [facility] PROPH/DX 2 [facility] NJX IV INC INC PUSH SINGLE/1S T SBST/[place] [address] [facility] ABDOMEN & 2 [facility] PELVIS INC INC W/O CONTRAST MATERIAL INJECTION J2405 [facility] ONDANSETR INC INC ON HCL PER 1 MG SUSCEPTIB 09271 [facility] LTY STDY 2 [facility] ANTIMICRB INC INC IAL MICRO/AGA R DILUTJ CULTURE 34022 [facility] BACTERIAL 2 [facility] INC INC QUANTTATI VE COLONY COUNT URINE CULTURE 32436 [facility] BCT 2 [facility] ISOL&PRSM INC INC PTV ID ISOLATE EA URINE BLOOD 16691 [facility] COMPLETE INC INC AUTO&AUTO DIFRNTL WBC COMPREHEN 90340 [facility] SIVE 2 [facility] METABOLIC INC INC PANEL URNLS DIP 90643 [facility] MENDING [facility] HEARTS STICK/TAB INC LET REAGENT AUTO MICROSCOP Y 3D 59476 [facility] RENDERING 2 [facility] INC INC W/INTERP& POSTPROC DIFF WORK STATION PROF [facility] 32562 MARNI MARNI ALLG 2 LUIS ALFREDO LUIS ALFREDO IMMNTX X W/PRV ALLGIC XTRCS NJXS NEBULIZER E0570 CRISTIN AMARAL WITH 2 HOME [facility] R EQUIPME EQUIPME PROF [facility] 43761 MARNI MARIN ALLG 2 LUIS ALFREDO LUIS ALFREDO IMMNTX X W/PRV ALLGIC XTRCS NJXS PROF [facility] 69047 MARNI MARNI ALLG 2 LUIS ALFREDO LUIS ALFREDO IMMNTX X W/PRV ALLGIC XTRCS NJXS PROF [facility] 57443 MARNI MARNI ALLG 2 LUIS ALFREDO LUIS ALFREDO IMMNTX X W/PRV ALLGIC XTRCS NJXS PROF [facility] 51830 MARNI MARNI ALLG 2 LUIS ALFREDO LUIS ALFREDO IMMNTX X W/PRV ALLGIC XTRCS NJXS RADEX 64792 LEONA MORRISUTCHER FOOT 2 MEDICAL AYLA COMPLETE IMAGING MINIMUM 3 ASS VIEWS SEDIMENTA 53332 [facility] TION RATE 2 [facility] RBC INC INC NON-AUTOM ATED BLOOD 53579 [facility] COUNT [facility] COMPLETE INC INC AUTO&[place] [address] [facility] BLOOD/URI 2 [facility] C ACID INC INC URNLS DIP 13360 [facility] STICK/TAB INC INC LET REAGENT AUTO MICROSCOP Y COMPREHEN 35097 [facility] SIVE [facility] METABOLIC INC INC PANEL PROF [facility] 25304 MARNI MARNI ALLG 2 LUIS ALFREDO LUIS ALFREDO IMMNTX X W/PRV ALLGIC XTRCS NJXS PROF [facility] 52362 MARNI MARNI ALLG 2 LUIS ALFREDO LUIS ALFREDO IMMNTX X W/PRV ALLGIC XTRCS NJXS PROF [facility] 36795 MARNI MARNI ALLG 2 LUIS ALFREDO LUIS ALFREDO IMMNTX X W/PRV ALLGIC XTRCS NJXS NEBULIZER E0570 CRISTIN AMARAL WITH 2 HOME HOME [facility] R EQUIPME EQUIPME PROF [facility] 39338 MARNI MARNI ALLG 2 LUIS ALFREDO LUIS ALFREDO IMMNTX X W/PRV ALLGIC XTRCS NJXS PROF [facility] 49875 MARNI MARNI ALLG 2 LUIS ALFREDO LUIS ALFREDO IMMNTX X W/PRV ALLGIC XTRCS NJXS PROF [facility] 46526 MARNI MARNI ALLG 2 LUIS ALFREDO LUIS ALFREDO IMMNTX X W/PRV ALLGIC XTRCS NJXS PROF [facility] 15866 MARNI MARNI ALLG 2 LUIS ALFREDO LUIS ALFREDO IMMNTX X W/PRV ALLGIC XTRCS NJXS PREPJ& 96399 MARNI MARNI ALLERGEN 2 LUIS ALFREDO LUIS ALFREDO IMMUNOTHE RAPY 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 ANTIGEN COMPREHEN 79712 [facility] SIVE [facility] METABOLIC INC INC PANEL URNLS DIP 59437 [facility] STICK/TAB INC INC LET REAGENT AUTO MICROSCOP Y LIPID 79263 [facility] PANEL 2 [facility] INC INC COLLECTIO 65139 [facility] N VENOUS 2 [facility] BLOOD INC INC VENIPUNCT URE BLOOD 32568 [facility] COUNT 2 [facility] COMPLETE INC INC AUTO&[place] [address] [facility] THYROID 2 [facility] STIMULATI INC INC NG HORMONE TSH CULTURE 49853 [facility] BCT 2 [facility] ISOL&PRSM INC INC PTV ID ISOLATE EA URINE CULTURE 59018 [facility] BACTERIAL 2 [facility] INC INC [place] [address] MARNI MARNI ALLG 2 LUIS ALFREDO LUIS ALFREDO IMMNTX X W/PRV ALLGIC XTRCS NJXS SUSCEPTIB 55593 [facility] LTY STDY 2 [facility] ANTIMICRB INC INC IAL MICRO/AGA R DILUTJ PROF SVCS 90677 MARNI MARNI ALLG 2 LUIS ALFREDO LUIS ALFREDO IMMNTX X W/PRV ALLGIC XTRCS NJXS SPMTRY 42694 MARNI MARNI W/VC 2 LUIS ALFREDO LUIS ALFREDO EXPIRATOR Y LULU W/WO MXML VOL VNTJ PROF SVCS 70943 MARNI MARNI ALLG 2 LUIS ALFREDO LUIS ALFREDO IMMNTX X W/PRV ALLGIC XTRCS NJXS PROF SVCS 02376 MARNI MARNI ALLG 2 LUIS ALFREDO LUIS ALFREDO IMMNTX X W/PRV ALLGIC XTRCS NJXS PROF SVCS 58665 MARNI MARNI ALLG 2 LUIS ALFREDO LUIS ALFREDO IMMNTX X W/PRV ALLGIC XTRCS NJXS PRESSURIZ 00524 [facility] ED/NONPRE [facility] SSURIZED INC INC INHALATIO N TREATMENT NONINVASI 43256 [facility] VE 2 [facility] EAR/PULSE INC INC OXIMETRY SINGLE DETER INJECTION J2405 [facility] ONDANSETR INC INC ON HCL PER 1 MG COLLECTIO 74741 [facility] N VENOUS 2 [facility] BLOOD INC INC VENIPUNCT URE NEBULIZER E0570 CRISTIN AMARAL WITH 2 HOME HOME [facility] R [facility] G0378 [facility] OBSERVATI 2 [facility] ON INC INC SERVICE PER HOUR GLUC BLD 11533 [facility] RABAGOON GLUC MNTR 2 [facility] DEV INC INC CLEARED FDA SPEC HOME USE BLOOD 37466 [facility] COUNT [address] [facility] [facility] COMPLETE INC INC AUTO&AUTO DIFRNTL WBC OBSERVATI 30442 [place] [facility] CARE 2 [facility] DISCHARGE INTERNAL MED MANAGEMEN T COMPREHEN 31058 [facility] SIVE [address] [facility] METABOLIC INC INC PANEL COMPREHEN 45528 [facility] SIVE [address] [facility] METABOLIC INC INC PANEL URNLS DIP 93981 [facility] 2 [facility] STICK/TAB INC INC LET REAGENT AUTO MICROSCOP Y CUL BACT 47107 [facility] AEROBIC 2 [facility] ADDL INC INC METHS DEFINITIV E EA ISOL CUL BACT 31894 [facility] XCPT 2 [facility] URINE INC INC BLOOD/STO OL AEROBIC ISOL INITIAL 15103 [place] MCKEMIE OBSERVATI 2 [facility] ON INTERNAL CARE/DAY MED 30 MINUTES BLOOD 61430 [facility] COUNT [address] [facility] COMPLETE INC INC AUTO&AUTO DIFRNTL WBC GLUC BLD 63088 [facility] GLUC MNTR [address] [facility] DEV INC INC CLEARED FDA SPEC HOME USE CULTURE 82286 [facility] BACTERIAL 2 [facility] INC INC QUANTTATI VE COLONY COUNT URINE URNLS DIP 85478 [place] 2 [facility] STICK/TAB INTERNAL INTERNAL LET RGNT MED MED NON-AUTO W/[facility] G0378 [facility] OBSERVATI 2 [facility] ON INC INC SERVICE PER HOUR COLLECTIO 63390 [facility] N VENOUS 2 [facility] BLOOD INC INC VENIPUNCT URE INJECTION J2405 [facility] 2 [facility] ONDANSETR INC INC ON HCL PER 1 MG SUSCEPTIB 44401 [facility] LTY STDY 2 [facility] ANTIMICRB INC INC IAL MICRO/AGA R DILUTJ SEDIMENTA 61275 [facility] TIKATI RATE 2 [facility] RBC INC INC NON-AUTOM ATED THERAPEUT 67491 [facility] IC 2 [facility] PROPHYLAC INC INC TIC/DX INJECTION SUBQ/IM PROF SVCS 99993 MARNI MARNI ALLG 2 LUIS ALFREDO LUIS ALFREDO IMMNTX X W/PRV ALLGIC XTRCS NJXS PROF SVCS 71926 MARNI MARNI ALLG 2 LUIS ALFREDO LUIS ALFREDO IMMNTX X W/PRV ALLGIC XTRCS NJXS LOCM Q9967 [facility] 300-399 2 [facility] MG/ML INC [place] [address] [facility] HEAD/BRAI 2 [facility] N W/O & INC INC W/CONTRAS T MATERIAL CT ORBIT 09014 [facility] SELLA/POS 2 MEDICAL AYLA T IMAGING FOSSA/EAR ASS W/O & W/[place] [address] [facility] MAXILLOFA 2 MEDICAL AYLA CIAL W/[place] [address] [facility] MAXILLOFA 2 [facility] CIAL W/O INC INC & W/CONTRAS T MATERIAL COLLECTIO 70499 [facility] N VENOUS 2 [facility] BLOOD INC INC VENIPUNCT URE CREATININ 71491 [facility] E BLOOD 2 [facility] [place] [address] [facility] UREA 2 [facility] NITROGEN INC INC QUANTITAT ANNABELLA 3D 72009 [facility] RENDERING 2 [facility] INC INC W/INTERP& POSTPROC DIFF WORK STATION 3D 44175 [facility] RENDERING 2 [facility] W/INTERP INC INC & [place] [address] [facility] HEAD/BRAI 2 MEDICAL AYLA N W/O IMAGING CONTRAST ASS MATERIAL LANCETS A4259 M E D M E [...] CELL OSCAR BG MON OWND PT PROF SVCS 84136 MARNI MARNI ALLG 2 LUIS ALFREDO LUIS ALFREDO IMMNTX X W/[place] [address] MARNI MARNI ALLG 2 LUIS ALFREDO LUIS ALFREDO IMMNTX X W/PRV ALLGIC XTRCS NJXS FUNDUS 29729 KENZIE ESPINO PHOTOGRAP 2 JAM JAM HY W/INTERPR ETATION & REPORT VISUAL 94628 KENZIE ESPINO FIELD XM 2 JAM JAM UNI/BI W/INTERP EXTENDED EXAM PREPJ& 86846 MARNI MARNI ALLERGEN 2 LUIS ALFREDO LUIS ALFREDO IMMUNOTHE RAPY 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 ANTIGEN PROF [facility] 36897 MARNI MARNI ALLG 2 LUIS ALFREDO LUIS ALFREDO IMMNTX X W/PRV ALLGIC XTRCS NJXS DEMO&/OPLLY 11366 MARNI MARNI L OF PT 2 LUIS ALFREDO LUIS ALFREDO UTILIZ AERSL GEN/NEB/I NHLR/IP PERCUTANE 04384 MARNI MANN OUS TESTS 2 LUIS ALFREDO BET W/ALLERGE ALVARADO EXTRACTS BRNCDILAT 63053 MARNI MARNI RSPSE 2 LUIS ALFREDO LUIS ALFREDO SPMTRY PRE&POST- BRNCDILAT ADMN INTRACUTA 81748 MARNI MARNI NEOUS 2 LUIS ALFREDO LUIS ALFREDO TESTS W/ALLERGE ALVARADO EXTRACTS NEBULIZER E0570 CRISTIN AMARAL WITH 2 HOME HOME [facility] R [facility] 390[address] [place] [facility] 2 [place] CATRACHITO DAY INTERNAL MANAGEMEN MED T 30 MIN/< SBSQ 31539 [place] [facility] 2 [facility] CARE/DAY INTERNAL 25 MED MINUTES INITIAL 21328 [facility] [facility] 2 [facility] CARE/DAY INTERNAL 50 MED MINUTES RADIOLOGI 24652 LEONA MORRISUTCHER C EXAM 2 MEDICAL AYLA CHEST 2 IMAGING VIEWS ASS FRONTAL&L ATERAL THERAPEUT 46759 [place] [facility] IC 2 [facility] PROPHYLAC INTERNAL TIC/DX MEDI INJECTION SUBQ/IM INJECTION J0696 [place] [facility] 2 [facility] CEFTRIAXO INTERNAL NE SODIUM MEDI PER 250 MG INJECTION J3301 [place] 2 [facility] TRIAMCINO INTERNAL INTERNAL LONE MEDI MEDI ACETONIDE NOS 10 MG INJECTION J2405 [facility] 2 [facility] ONDANSETR INC INC ON HCL PER 1 MG THERAPEUT 88743 [facility] IC 2 [facility] INJECTION INC INC IV PUSH EACH NEW DRUG THER 90011 [facility] PROPH/DX 2 [facility] NJX IV INC INC PUSH SINGLE/1S T SBST/DRUG COMPREHEN 05284 [facility] SIVE 2 [facility] METABOLIC INC INC PANEL RADIOLOGI 93418 [facility] C 2 [facility] EXAMINATI INC INC [place] [address] [facility] TROPONIN [address] [facility] [address] [facility] QUANTITAT INC INC ANNABELLA NATRIURET 83337 [facility] IC 2 [facility] PEPTIDE INC INC BLOOD 56788 [facility] COUNT 2 [facility] COMPLETE INC INC AUTO&AUTO DIFRNTL WBC CREATINE 17966 [facility] KINASE MB 2 [facility] FRACTION INC INC ONLY CREATINE 55410 [facility] KINASE 2 [facility] TOTAL INC INC ECG 05413 MARLO AKERS ROUTINE 2 EMERGENCY ECG SERVICES W/LEAST 12 LDS I&R ONLY ECG 58448 [facility] ROUTINE 2 [facility] ECG INC INC W/LEAST 12 LDS TRCG ONLY W/O I&R OPHTHALMO 59633 KENZIE ESPINO SCPY 2 [facility] EXTENDED RETINAL DRAWING I&R 1ST DETERMINA 55893 KENZIE ESPINO TION 2 [facility] REFRACTIV E STATE NEBULIZER E0570 CRISTIN AMARAL WITH 2 HOME HOME [facility] R EQUIPME EQUIPME ADMN SET A7003 YOUR YOUR SM VOL 2 PHARMACY PHARMACY [employer] [facility] PNEUMAT NEBULIZR DISPBL NEBULIZER E0570 CRISTIN AMARAL WITH 2 HOME HOME [facility] EQUIPME EQUIPME PHARM G0333 YOUR YOUR DISPEN 2 PHARMACY PHARMACY FEE INHAL [employer] RX; INITIAL 30-DAY SUPPLY ALBUTEROL J7613 YOUR YOUR INHAL 2 PHARMACY PHARMACY NON-CP [facility] PROD THRU DME U DOSE 1 MG RADIOLOGI 53333 LEONA Kumar EXAM 2 MEDICAL AYLA CHEST 2 IMAGING VIEWS ASS FRONTAL&L ATERAL NONINVASI 64570 [place] [facility] 2 [place] CE[facility] EAR/PULSE INTERNAL OXIMETRY MEDI SINGLE DETER PRESSURIZ 29977 [facility] ED/NONPRE 2 [facility] SSURIZED [place] [address] [facility] INFUSION 2 [facility] THERAPY/P INC INC ROPHYLAXI S /DX 1ST TO 1 HR THERAPEUT 60236 [facility] IC 2 [facility] INJECTION INC INC IV PUSH EACH NEW DRUG IAADI 89209 [facility] INFFLUENZ 2 [facility] A A VIRUS INC INC IAADI 02195 [facility] INFLUENZA 2 [facility] B VIRUS INC INC RADIOLOGI 43780 [facility] C EXAM 2 [facility] CHEST 2 INC INC VIEWS FRONTAL&L ATERAL CREATINE 89101 [facility] KINASE 2 [facility] TOTAL INC INC CREATINE 31816 [facility] KINASE MB 2 [facility] FRACTION INC INC ONLY BLOOD 33830 [facility] COUNT 2 [facility] COMPLETE INC INC AUTO&[place] [address] [facility] TROPONIN 2 [facility] QUANTITAT INC INC ANNABELLA COMPREHEN 53863 [facility] SIVE 2 [facility] METABOLIC INC INC PANEL LANCETS A4259 M E D M E D PER BOX 1 SUPPLIES SUPPLIES OF 100 NORMAL A4256 M E D M E D LOW AND 1 SUPPLIES SUPPLIES HIGH CALIBRATO R SOLUTION/ CHIPS BLD GLU A4253 M E D M E D TEST/REAG 1 SUPPLIES SUPPLIES T STRIPS HOME BLD GLU MON-50 SMOKE TOB G0436 EAR, NOSE EAR, NOSE 1 AND AND CESSATION THROAT THROAT CNSL SPECIAL SPECIAL PT; INTRMED 3-10 MIN LARYNGOSC 59316 EAR, NOSE SHASHY OPY 1 AND SOBEIDA FLEXIBLE THROAT DIAGNOSTI SPECIAL C GLUC BLD 23987 [facility] GLUC MNTR 1 [facility] DEV INC INC CLEARED FDA SPEC HOME USE ESOPHAGOG 53572 C SOPHIE LYONS ASTRODUOD 1 ELOY GAMBOA ENOSCOLTEN [facility] [place] [address] [facility] INFUSION [address] [facility] THERAPY INC [place] [address] [facility] INFUSION 1 [facility] THERAPY/P INC INC ROPHYLAXI S /DX 1ST TO 1 HR LARYNGOSC 12235 EAR, NOSE SHASHY OPY 1 AND SOBEIDA FLEXIBLE THROAT DIAGNOSTI SPECIAL C COLLECTIO 79592 COMBINED COMBINED N VENOUS 1 PHYSICIAN PHYSICIAN BLOOD S LA S LA VENIPUNCT URE HEMOGLOBI 46721 COMBINED COMBINED N 1 PHYSICIAN PHYSICIAN GLYCOSYLA S LA S LA ML A1C BASIC 88330 COMBINED COMBINED METABOLIC 1 PHYSICIAN PHYSICIAN [place] [address] COMBINED COMBINED BLOOD/URI 1 PHYSICIAN PHYSICIAN C ACID S LA S LA 3D 08322 [facility] RENDERING [address] [facility] INC INC W/INTERP& POSTPROC DIFF WORK STATION CT SOFT 51304 [facility] TISSUE 1 [facility] NECK W/O INC INC CONTRAST MATERIAL CONTINUOU E0601 CRISTIN AMARAL S 1 HOME HOME POSITIVE MEDICAL MEDICAL AIRWAY EQUIP[place] [address] [facility] THYROID 1 [facility] STIMULATI INC INC NG HORMONE TSH COLLECTIO 73620 [facility] N VENOUS 1 [facility] [place] [address] [facility] FERRITIN [address] [facility] INC INC BLOOD 38085 [facility] COUNT 1 [facility] COMPLETE INC INC AUTO&AUTO DIFRNTL WBC COMPREHEN 08500 [facility] SIVE 1 [facility] [place] [address] DERMATOLO NARGIS II SURG 1 GY [facility] PATHOLOGY CONSULTAN TS PSC GROSS&SHANTHI ROSCOPIC EXAM LANCETS A4259 M E D M E D PER BOX 1 SUPPLIES SUPPLIES OF 100 BLD GLU A4253 M E D M E D TEST/REAG 1 SUPPLIES SUPPLIES T STRIPS HOME BLD GLU MON-50 NORMAL A4256 M E D M E D LOW AND 1 SUPPLIES SUPPLIES HIGH CALIBRATO R SOLUTION/ [facility] A4258 M E D M E D WERED 1 SUPPLIES SUPPLIES DEVICE FOR LANCET EACH REPL DEYSI A4233 M E D M E D ALKALINE 1 SUPPLIES SUPPLIES NOT J CELL OSCAR BG MON OWND PT BLOOD 74993 [facility] COUNT [address] [facility] COMPLETE INC INC AUTO&AUTO DIFRNTL WBC GROUND A0425 [facility] MILEAGE 1 AMBULANCE AMBULANCE PER SERVICE SERVICE STATUTE MILE AMBULANCE A0429 [facility] SERVICE 1 AMBULANCE AMBULANCE BLS SERVICE SERVICE EMERGENCY TRANSPORT COMPREHEN [id number] [facility] SIVE [address] [facility] METABOLIC INC INC PANEL THER 98554 [facility] PROPH/DX 1 [facility] NJX IV INC INC PUSH SINGLE/1S T SBST/DRUG RADIOLOGI 06659 LEONA Kumar EXAM 1 [facility] CHEST 2 IMAGING VIEWS ASS FRONTAL&L ATERAL PRESSURIZ 42895 [facility] ED/NONPRE 1 [facility] SSURIZED INC INC INHALATIO N TREATMENT THERAPEUT 78619 [facility] IC 1 [facility] INJECTION INC INC IV PUSH EACH NEW DRUG SUSCEPTIB 35478 [facility] LTY STDY 1 [facility] ANTIMICRB INC INC IAL MICRO/AGA R DILUTJ CULTURE 08077 [facility] BACTERIAL 1 [facility] INC INC QUANTTATI VE COLONY COUNT URINE CULTURE 82891 [facility] BCT 1 [facility] ISOL&PRSM INC INC PTV ID ISOLATE EA URINE CHIROPRAC 86308 KAVYA HOFF TIC 1 JANET JANET MANIPULAT [place] SPINAL 1-2 REGIONS CONTINUOU E0601 CRISTIN CRISTIN S 1 HOME HOME POSITIVE MEDICAL MEDICAL AIRWAY EQUIPME EQUIPME PRESSURE DEVICE NON-INVAS 72037 LEONA MORRISUTCHER ANNABELLA 1 MEDICAL AYLA PHYSIOLOG IMAGING IC STUDY ASS EXTREMITY 3 LEVLS DUP-SCAN 50965 LEONA GARCHER XTR VEINS 1 MEDICAL [facility] COMPLETE IMAGING ASS BILATERAL STUDY DUP-SCAN 63657 [facility] XTR VEINS 1 [facility] INC INC UNILATERA L/LIMITED STUDY DEBRIDEME 78053 PAWSAT PAWSAT NT NAIL 1 MAR MAR ANY METHOD 6/> CHIROPRAC 95945 KAVYA HOFF TIC 1 JANET JANET MANIPULAT ANNABELLA TX SPINAL 1-2 REGIONS CONTINUOU [id number] CRISTIN CRISTIN S 1 HOME HOME POSITIVE MEDICAL MEDICAL AIRWAY EQUIPME EQUIPME PRESSURE DEVICE CULTURE 95572 [facility] BCT [address] [facility] ISOL&PRSM INC INC PTV ID ISOLATE EA URINE CULTURE 96861 [facility] BACTERIAL [address] [facility] INC INC QUANTTATI [place] [address] BRANDON [facility] AMYLASE [address] [facility] [place] [address] [facility] LIPASE 1 [facility] INC INC BLOOD 67961 [facility] COUNT 1 [facility] COMPLETE INC INC AUTO&AUTO DIFRNTL WBC URNLS DIP 37898 [facility] 1 [facility] STICK/TAB INC INC LET REAGENT AUTO MICROSCOP Y COMPREHEN 93427 [facility] SIVE 1 [facility] METABOLIC INC INC PANEL THERAPEUT 18536 [facility] IC [address] [facility] [facility] PROPHYLAC INC INC TIC/DX INJECTION SUBQ/IM SUSCEPTIB 89790 [facility] T[facility] LTY STDY [address] [facility] ANTIMICRB INC INC IAL MICRO/AGA R DILUTJ CHIROPRAC 42177 KAYVA HOFF TIC 1 JANET JANET MANIPULAT [place] SPINAL 1-2 REGIONS HEMOGLOBI 03554 [facility] T[facility] N [address] [facility] [place] [address] BR[facility] THYROID [address] [facility] STIMULATI INC INC NG HORMONE TSH E-STIM [id number] [facility] 1/> AREAS [address] [facility] OTH THAN INC INC WND CARE PART TX PLAN COLLECTIO 45306 BR[facility] N VENOUS [address] [facility] BLOOD INC INC VENIPUNCT URE COMPREHEN 65595 BRAND[facility] SIVE 1 [facility] METABOLIC INC INC PANEL THERAPEUT 47664 [facility] [place] IC PX 1/> [address] [facility] AREAS INC INC EACH 15 MIN EXERCISES APPL 33216 [facility] MODALITY 1 [facility] 1/> AREAS INC INC ULTRASOUN D EA 15 MIN LIPID 31847 [facility] PANEL [address] [facility] [facility] INC INC 3D [id number] LEONA MORRISUTCHER RENDERING 1 MEDICAL AYLA IMAGING W/INTERP& [place] [address] [place] CORONEL ABDOMEN & 1 MEDICAL AYLA PELVIS IMAGING W/CONTRAS ASS T MATERIAL COMPUTER- 64700 BRANDON TAYLOR AIDED [address] [facility] DETECTION INC INC SCREENING MAMMOGRAP HY SCREENING G0202 [facility] BR[facility]ON 1 [facility] MAMMOGRAP INC INC HY DURGA INCL CAD WHEN PERFORMD E-STIM G0283 BRANDON BRANDON 1/> AREAS 1 [facility] OTH THAN INC INC WND CARE PART TX PLAN THERAPEUT 26469 BRANDON TAYLOR IC PX 1/> 1 [facility] AREAS INC INC EACH 15 MIN EXERCISES APPL 81083 BRANDON TAYLOR MODALITY 1 [facility] 1/> AREAS INC INC ULTRASOUN D EA 15 MIN APPL 71155 BRANDON BRANDON MODALITY 1 [facility] 1/> AREAS INC INC ULTRASOUN D EA 15 MIN THERAPEUT 12492 BRANDON BRANDON IC PX 1/> 1 [facility] AREAS INC INC EACH 15 MIN EXERCISES E-STIM G0283 BRANDON BRANDNO 1/> AREAS 1 [facility] OTH THAN INC INC WND CARE PART TX PLAN CHIROPRAC 32792 KAVYA HOFF TIC 1 JANET JANET MANIPULAT [place] SPINAL 1-2 REGIONS E-STIM G0283 BRANDON RABAGOON 1/> AREAS 1 [facility] OTH THAN INC INC WND CARE PART TX PLAN THERAPEUT 26127 BRANDON TAYLOR IC PX 1/> 1 [facility] AREAS INC INC EACH 15 MIN EXERCISES PHYSICAL 60620 BRANDON BRANDON THERAPY 1 [facility] EVALUATIO INC INC N APPL 46458 BRANDON BRANDON MODALITY 1 [facility] 1/> AREAS INC INC ULTRASOUN D EA 15 MIN CHIROPRAC 67595 KAVYA DONGDING TIC 1 JANET JANET MANIPULAT [place] SPINAL 1-2 REGIONS CONTINU E0601 CRISTIN AMARAL S 1 HOME HOME POSITIVE MEDICAL MEDICAL AIRWAY EQUIPME EQUIPME PRESSURE DEVICE RADEX 75208 [facility] [place] [facility] UPP[place] GI 1 MEDICAL AYLA W/WO IMAGING GLUCAGON/ ASS DELAY IMAGES W/KUB CHIROPRAC 45616 KAVYA DONGDING TIC 1 JANET JANET MANIPULAT [place] TX SPINAL 1-2 REGIONS CHIROPRAC 28111 KAVYA DONGDING TIC 1 JANET JANET MANIPULAT [place] SPINAL 1-2 REGIONS LANCETS A4259 M E D M E D PER BOX 1 SUPPLIES SUPPLIES OF 100 NORMAL A4256 M E D M E D LOW AND 1 SUPPLIES SUPPLIES HIGH CALIBRATO R SOLUTION/ CHIPS BLD GLU A4253 M E D M E D TEST/REAG 1 SUPPLIES SUPPLIES T STRIPS HOME BLD GLU MON-50 CHIROPRA 27549 [place] TIC 1 JANET JANET MANIPULAT [place] SPINAL 1-2 REGIONS CHIROPRAC 04163 [place] TIC 1 JANET JANET MANIPULAT [place] TX SPINAL 1-2 REGIONS CHIROPRA 75567 [place] TIC 1 JANET JANET MANIPULAT ANNABELLA TX SPINAL 1-2 REGIONS CHIROPRA 73668 [place] TIC 1 JANET JANET MANIPULAT ANNABELLA TX SPINAL 1-2 REGIONS CHIROPRA 27366 [place] TIC 1 JANET JANET MANIPULAT [place] TX SPINAL 1-2 REGIONS TUBING A7037 CRISTIN AMARAL USED WITH 1 HOME HOME POSITIVE MEDICAL MEDICAL AIRWAY EQUIPME EQUIPME PRESSURE DEVICE HUMDIFIR E0562 CRISTIN AMARAL HEATED 1 HOME HOME USED MEDICAL MEDICAL W/POS EQUIPME EQUIPME ARWAY PRESSURE DEVICE FULL FACE A7030 CRISTIN AMARAL MASK 1 HOME HOME USED MEDICAL MEDICAL W/POS EQUIPME EQUIPME ARWAY PRESS DEVICE EA FILTER A7038 CRISTIN AMARAL DISPBL 1 HOME HOME USED MEDICAL MEDICAL W/POS EQUIPME EQUIPME ARWAY PRESSURE DEVICE CONTINUOU E0601 CRISTIN AMARAL S 1 HOME HOME POSITIVE MEDICAL MEDICAL AIRWAY EQUIPME EQUIPME PRESSURE DEVICE HEADGEAR A7035 CRISTIN AMARAL USED 1 HOME HOME W/POSITIV MEDICAL MEDICAL E AIRWAY EQUIPME EQUIPME PRESSURE DEVICE CHIROPRA 06812 [place] TIC 1 JANET JANET MANIPULAT [place] SPINAL 1-2 REGIONS CHIROPRAC 95705 [place] TIC 1 JANET JANET MANIPULAT [place] TX SPINAL 1-2 REGIONS POLYSOM 56385 [facility] 6/>YRS 1 DEIDRA DEIDRA SLEEP W/CPAP 4/> ADDL JENNIE ATTND POLYSOM 04348 [facility] 6/>YRS 1 DEIDRA DEIDRA SLEEP 4/> ADDL JENNIE ATTND POLYSOM 76521 BRANDON TAYLOR 6/>YRS [address] [facility] SLEEP 4/> INC INC ADDL JENNIE ATTND MRI 00164 [facility] CORONEL SPINAL 1 MEDICAL AYLA CANAL IMAGING LUMBAR ASS W/O CONTRAST MATERIAL 3D 32524 LE[place] CORONEL RENDERING 1 MEDICAL AYLA W/INTERP IMAGING & ASS POSTPROCE SS SUPERVISI ON COMPREHEN 64417 BRANDON TAYLOR SIVE 1 [facility] METABOLIC INC INC PANEL BLOOD 83947 BRANDON TAYLOR COUNT 1 [facility] COMPLETE INC INC AUTO&AUTO DIFRNTL WBC COLLECTIO 73620 BRANDON TAYLOR N VENOUS 1 [facility] BLOOD INC INC VENIPUNCT URE CREATINE 55980 BRANDON TAYLOR KINASE 1 [facility] [place] [address] BRANDON TAYLOR THYROID 1 [facility] STIMULATI INC INC NG HORMONE TSH SEDIMENTA 92040 BRANDON TAYLOR TION RATE 1 [facility] RBC INC INC NON-AUTOM ATED RADIOLOGI 10505 [facility] CORONEL C EXAM 1 MEDICAL AYLA CHEST 2 IMAGING VIEWS ASS FRONTAL&L ATERAL THER 75035 BRANDON TAYLOR PROPH/DX 1 [facility] NJX IV INC INC PUSH SINGLE/1S T SBST/DRUG RADEX 11783 [place] CORONEL SPINE 1 MEDICAL AYLA LUMBOSACR IMAGING AL 2/3 ASS VIEWS THERAPEUT 46181 BRANDON TAYLOR IC 1 [facility] INJECTION INC INC IV PUSH EACH NEW DRUG URNLS DIP 03714 BRANDON TAYLOR 1 [facility] STICK/TAB INC INC LET REAGENT AUTO MICROSCOP Y CULTURE 89450 BRANDON TAYLOR BACTERIAL 1 [facility] INC INC QUANTTATI VE COLONY COUNT URINE AMBULANCE A0429 [facility] SERVICE 1 AMBULANCE AMBULANCE BLS SERVICE SERVICE EMERGENCY TRANSPORT GROUND A0425 [facility] 1 AMBULANCE AMBULANCE PER SERVICE SERVICE STATUTE MILE COMPREHEN 29599 BRANDON TAYLOR SIVE [address] [facility] HOSP METABOLIC INC INC PANEL BLOOD 43809 BRANDON TAYLOR COUNT [address] [facility] COMPLETE INC INC AUTO&AUTO DIFRNTL WBC COLLECTIO 04110 BRANDON TAYLOR N VENOUS 1 [facility] BLOOD INC INC VENIPUNCT URE CYANOCOBA 81294 BRANDON TAYLOR PRATEEK 1 [facility] VITAMIN INC INC B-12 HEMOGLOBI 45243 BRANDON TAYOLR N 1 [facility] GLYCOSYLA INC INC ML A1C ECG 60520 BRANDON FAJARDO ROUTINE 1 [facility] W/LEAST P 12 LDS I&R ONLY RADIOLOGI 48926 [facility] C 1 MEDICAL AYLA EXAMINATI IMAGING ON CHEST ASS SINGLE VIEW FRONTAL GROUND A0425 [facility] 1 AMBULANCE AMBULANCE PER SERVICE SERVICE STATUTE MILE AMB A0427 [facility] SERVICE 1 AMBULANCE AMBULANCE ALS SERVICE SERVICE EMERGENCY TRANSPORT LEVEL 1 TECHNETIU A9502 BRANDON Wayne TC-99M [address] [facility] TETROFOSM INC INC IN DX PER STUDY DOSE MYOCARDIA 73505 BRANDON Yoon SPECT 1 [facility] MULTIPLE INC INC STUDIES CV STRS 82128 BRANDON TAYLOR TST [address] [facility] [facility] XERS&/OR INC INC RX CONT ECG TRCG ONLY 3D 94830 [facility] RENDERING 1 MEDICAL AYLA IMAGING W/INTERP& ASS POSTPROC DIFF WORK STATION 3D 90372 BRANDON TAYLOR RENDERING 1 [facility] W/INTERP INC INC & POSTPROCE SS SUPERVISI ON CT SOFT 13552 [facility] TISSUE 1 MEDICAL MEDICAL NECK IMAGING IMAGING W/[place] [address] BRANDON TAYLOR HEAD/BRAI 1 [facility] N W/O & INC INC W/[place] [address] [place] CORONEL HEAD/BRAI 1 MEDICAL AYLA N IMAGING W/CONTRAS ASS T MATERIAL CREATININ 89062 BRANDON TAYLOR E BLOOD 1 [facility] INC INC COLLECTIO 45464 BRANDON TAYLOR N VENOUS [address] [facility] [address] [facility] [place]LO[place] [address] BRANDON TAYLOR UREA 1 [facility] NITROGEN INC INC QUANTITAT ANNABELLA GLUC BLD 91270 BRANDON TAYLOR GLUC MNTR [address] [facility] [address] [facility] DEV INC INC CLEARED FDA SPEC HOME USE COLONOSCO 44524 C SOPHIE LYONS PY FLX DX 1 ELOY GAMBOA W/FLORENCIO [place] [address] BRANDON TAYLOR INFUSION 1 [facility] THERAPY INC INC PROPHYLAX IS/DX EA HOUR ANES 06216 [facility] L[facility] 1 ANESTH INTESTINE OF [place] [address] BRANDON TAYLOR INFUSION 1 [facility] THERAPY/P INC INC ROPHYLAXI S /DX 1ST TO 1 HR LANCETS A4259 M E D M E [...] J CELL OSCAR BG MON OWND PT [place]- A4258 M E D M E D WERED 1 SUPPLIES SUPPLIES DEVICE FOR LANCET EACH RADIOLOGI 11441 [place] CORONEL C EXAM 1 MEDICAL AYLA CHEST 2 IMAGING VIEWS ASS FRONTAL&L ATERAL OPHTH 45031 [facility] MEDICAL 1 VISION XM&EVAL COMPRHNSV ESTAB PT 1/> COLLECTIO 58442 BRANDON TAYLOR N VENOUS [address] [facility] [facility] BLOOD INC INC VENIPUNCT URE BLOOD 43947 BRANDON TAYLOR COUNT 1 [facility] COMPLETE INC INC AUTO&AUTO DIFRNTL WBC BASIC 76871 BRANDON TAYLOR METABOLIC 1 [facility] PANEL INC INC CALCIUM TOTAL RADIOLOGI 59453 [place] [facility] C EXAM 1 MEDICAL AYLA CHEST 2 IMAGING VIEWS ASS FRONTAL&L ATERAL BLD GLU A4253 CCS CCS TEST/REAG 0 MEDICAL MEDICAL T STRIPS HOME BLD GLU SUN-50 LANCETS A4259 CCS CCS PER BOX 0 MEDICAL MEDICAL OF 100 NORMAL A4256 CCS CCS LOW AND 0 MEDICAL MEDICAL HIGH CALIBRATO R SOLUTION/ CHIPS REPL DEYSI A4233 CCS CCS ALKALINE 0 MEDICAL MEDICAL NOT J CELL OSCAR BG MON OWND PT SPRING-PO A4258 CCS CCS WERED 0 MEDICAL DIRECTOR [facility] EACH A4258 SECURE SECURE WERED 0 CARE CARE DEVICE MEDICAL MEDICAL FOR LANCET EACH NORMAL A4256 SECURE SECURE LOW AND 0 CARE CARE HIGH MEDICAL MEDICAL CALIBRATO R SOLUTION/ CHIPS LANCETS A4259 SECURE SECURE PER BOX 0 CARE CARE OF 100 MEDICAL MEDICAL BLD GLU A4253 SECURE SECURE TEST/REAG 0 CARE CARE T STRIPS MEDICAL MEDICAL HOME BLD GLU BLD GLU E2100 SECURE SECURE MONITOR 0 CARE CARE W/INTEGRA MEDICAL MEDICAL ML VOICE SYNTHESIZ ER RADIOLOGI 56658 [place] [facility], C 0 MEDICAL FRDEO EXAMINATI IMAGING ON KNEE 3 ASSOCIATE VIEWS S RADIOLOGI 33247 BRANDON TAYLOR C 0 [facility] EXAMINATI INC INC ON CHEST SINGLE VIEW FRONTAL CULTURE 86270 BRANDON TAYLOR BACTERIAL 0 [facility] INC INC QUANTTATI VE COLONY COUNT URINE URNLS DIP 68957 BR[facility]ON TAYLOR 0 [facility] STICK/TAB INC INC LET REAGENT AUTO MICROSCOP Y BASIC 34614 BRANDON TAYLOR METABOLIC 0 [facility] PANEL INC INC CALCIUM TOTAL BLOOD 81162 BRANDON TAYLOR COUNT 0 [facility] COMPLETE INC INC AUTO&AUTO DIFRNTL WBC HEMOGLOBI 06445 BRANDON TAYLOR N 0 [facility] [place] [address] BRANDON TAYLOR INFUSION 0 [facility] HYDRATION INC INC INITIAL 31 MIN-1 HOUR PRTBLE E0431 EVELYN RIVAS GASEOUS 9 HOME [...] SCR LAB LAB AUTO&MNL RSCR PHYS IADNA 69019 PATHOLOGY PATHOLOGY PAPILLOMA 9 & & VIRUS CYTOLOGY CYTOLOGY HUMAN LAB LAB AMPLIFIED PROBE TQ RADIOLOGI 13174 [facility] CORONEL EXAM 9 MEDICAL FREDO CHEST 2 IMAGING VIEWS ASSOCIATE FRONTAL&L S ATERAL PRESSURIZ 07287 [facility] PRISCILLA, ED/NONPRE 9 [facility] SSURIZED INTERNAL INHALATIO MED N TREATMENT ALBUTEROL J7620 [facility]5 9 [facility]ACY PHARMACY MG & 3938 3938 IPRATROPI UM BROM TO 0.5 MG PHARM G0333 [facility] DISPEN 9 PHARMACY PHARMACY FEE INHAL 3938 3938 RX; INITIAL 30-DAY SUPPLY O2 CONC 1 E1390 EVELYN RIVAS DEL PORT 9 HOME HOME 85%/>02 MEDICAL MEDICAL CONC AT EQUIPMENT EQUIPMENT PRSC FLW RATE PRTBLE E0431 EVELYN RIVAS GASEOUS 9 HOME HOME O2 SYS MEDICAL MEDICAL RENT; EQUIPMENT EQUIPMENT FLWMTR HUMIDFR&M ASK PRESSURIZ 64651 [facility], ED/NONPRE 9 [facility] SSURIZED INTERNAL INHALATIO MED N TREATMENT IAADI 42241 BRANDON TAYLOR INFLUENZA 9 [facility] B VIRUS INC INC IAADI 22941 BRANDON BRANDON INFFLUENZ 9 [facility] A A VIRUS INC INC URNLS DIP 86258 BR[facility] TAYLOR 9 [facility] STICK/TAB INC INC LET REAGENT AUTO MICROSCOP Y CULTURE 39432 BRANDON TAYLOR BACTERIAL 9 [facility] INC INC QUANTTATI VE COLONY COUNT URINE APPL 76611 [place] ESC[place], MODALITY 9 FAMILY LILIYA C 1/> AREAS CHIROPRAC TRACTION TIC MECHANICA L APPL 84586 [place] ESC[place]AR, MODALITY 9 FAMILY LILIYA C 1/> AREAS CHIROPRAC ELEC TIC STIMJ EA 15 MIN THERAPEUT 44163 [place] ESCOBAR, IC PX 1/> 9 FAMILY LILIYA C AREAS CHIROPRAC EACH 15 TIC MIN EXERCISES CHIROPRAC 18013 [place] ESC[place]AR, TIC 9 FAMILY LILIYA C MANIPULAT CHIROPRAC [place] TIC SPINAL 3-4 REGIONS CHIROPRAC 28027 [place] ESC[place], TIC 9 FAMILY LILIYA C MANIPULAT CHIROPRAC [place] TIC SPINAL 3-4 REGIONS THERAPEUT 49745 [place] ESC[place]AR, IC PX 1/> 9 FAMILY LILIYA C AREAS CHIROPRAC EACH 15 TIC MIN EXERCISES APPL 86292 [place] ESC[place]AR, MODALITY 9 FAMILY LILIYA C 1/> AREAS CHIROPRAC ELEC TIC STIMJ EA 15 MIN APPL 65781 [place] ESC[place]AR, MODALITY 9 FAMILY LILIYA C 1/> AREAS CHIROPRAC TRACTION TIC MECHANICA L APPL 48660 [place] ESC[place], MODALITY 9 FAMILY LILIYA C 1/> AREAS CHIROPRAC TRACTION TIC MECHANICA L APPL 05097 [place] ESC[place]AR, MODALITY 9 FAMILY LILIYA C 1/> AREAS CHIROPRAC ELEC TIC STIMJ EA 15 MIN THERAPEUT 68550 [place] ESC[place]AR, IC PX 1/> 9 FAMILY LILIYA C AREAS CHIROPRAC EACH 15 TIC MIN EXERCISES CHIROPRAC 02881 [place] ESC[place]AR, TIC 9 FAMILY LILIYA C MANIPULAT CHIROPRAC [place] TIC SPINAL 3-4 REGIONS CHIROPRAC 19791 [place] ESCOBAR, TIC 9 FAMILY LILIYA C MANIPULAT CHIROPRAC [place] TIC SPINAL 3-4 REGIONS THERAPEUT 60791 EVELYN ESCOBAR, IC PX 1/> 9 FAMILY LILIYA C AREAS CHIROPRAC EACH 15 TIC MIN EXERCISES APPL 59740 EVELYN ESCOBAR, MODALITY 9 FAMILY LILIYA C 1/> AREAS CHIROPRAC ELEC TIC STIMJ EA 15 MIN APPL 95473 EVELYN ESCOBAR, MODALITY 9 FAMILY LILIYA C 1/> AREAS CHIROPRAC TRACTION TIC MECHANICA L SELF-CARE 72305 EVELYN ESCOBAR, /HOME 9 FAMILY LILIYA C MGMT CHIROPRAC TRAINING TIC EACH 15 MINUTES INJ J0702 LEANA DUEÑAS, BETAMETHA 9 CHELSY W CHELSY W SONE ACETATE & PHOSPHATE 3 MG INITIAL 53427 [facility] 9 Y OF CHERYL CARE/DAY [place] A 70 INTERNAL MINUTES MEDICINE ECG 48566 BUNNY JOHNSON, ROUTINE 9 MEDICAL SIMBA Kumar ECG SERV W/LEAST FOUNDATIO 12 LDS I&R ONLY RADIOLOGI 85696 BUNNY SAENZ C EXAM 9 MEDICAL FORTINO G CHEST 2 SERV VIEWS FOUNDATIO FRONTAL&L ATERAL PRTBLE E0431 EVELYN RIVAS GASEOUS 9 HOME HOME O2 SYS MEDICAL MEDICAL RENT; EQUIPMENT EQUIPMENT FLWMTR HUMIDFR&M ASK O2 CONC 1 E1390 EVELYN RIVAS [place] 9 HOME HOME 85%/>02 MEDICAL MEDICAL CONC AT EQUIPMENT EQUIPMENT PRSC FLW RATE OBSERVATI 83456 [place], ON CARE 9 [place] A DISCHARGE INTERNAL MED MANAGEMEN T INITIAL 84390 [place], OBSERVATI 9 [place] A ON INTERNAL CARE/DAY MED 30 MINUTES COMPREHEN 09705 BRANDON TAYLOR SIVE 9 [facility] METABOLIC INC INC PANEL URNLS DIP 02035 BR[facility]ON TAYLOR 9 [facility] STICK/TAB INC INC LET REAGENT AUTO MICROSCOP Y CULTURE 74072 BRANDON TAYLOR BACTERIAL 9 [facility] INC INC QUANTTATI VE COLONY COUNT URINE BLOOD 53287 BRANDON TAYLOR COUNT 9 [facility] COMPLETE INC INC AUTO&AUTO DIFRNTL WBC ECG 89365 CARDIOLOG [place], ROUTINE 9 Y KHURRAM A ECG ASSOCIATE W/LEAST S OF 12 [facility] I&R ONLY SBSQ 66190 [facility] 9 CARE/DAY 15 MINUTES SBSQ 29465 [facility] 9 CARE/DAY 15 MINUTES PRTBLE E0431 EVELYN RIVAS GASEOUS 9 HOME HOME O2 SYS MEDICAL MEDICAL RENT; EQUIPMENT EQUIPMENT FLWMTR HUMIDFR&M ASK O2 CONC 1 E1390 EVELYN RIVAS [place] 9 HOME HOME 85%/>02 MEDICAL MEDICAL CONC AT EQUIPMENT EQUIPMENT PRSC FLW RATE SBSQ 12744 [facility] 9 CARE/DAY 15 MINUTES SBSQ 76436 [facility] 9 CARE/DAY 15 MINUTES SBSQ 71105 [facility] 9 CARE/DAY 15 MINUTES ECG 62313 CARDIOLOG [place] ROUTINE 9 Y , D L ECG ASSOCIATE W/LEAST S OF 12 [facility] I&R ONLY INITIAL 27840 [facility] 9 CARE/DAY 30 MINUTES GROUND A0425 [facility] MILEAGE 9 AMBULANCE AMBULANCE PER SERVICE SERVICE STATUTE MILE AMBULANCE A0429 [facility] SERVICE 9 AMBULANCE AMBULANCE BLS SERVICE SERVICE EMERGENCY TRANSPORT RADIOLOGI 48695 José CACERES 9 MEDICAL FREDO EXAMINATI IMAGING ON CHEST ASSOCIATE SINGLE S VIEW FRONTAL AMB A0422 [facility] OXYGEN&O2 9 AMBULANCE AMBULANCE SUPPLIES SERVICE SERVICE LIFE SUSTAININ G SITUATION GLUC BLD 45931 BRANDON TAYLOR GLUC MNTR 9 [facility] DEV INC INC CLEARED FDA SPEC HOME USE KETONE 15597 BRANDON TAYLOR BODIES 9 [facility] SERUM INC INC QUALITATI VE BLOOD 42067 BRANDON TAYLOR COUNT 9 [facility] COMPLETE INC INC AUTO&AUTO DIFRNTL WBC BASIC 99161 BRANDON TAYLOR METABOLIC 9 [facility] [place] [address] BRANDON TAYLOR INFUSION 9 [facility] THERAPY/P INC INC ROPHYLAXI S /DX 1ST TO 1 HR THERAPEUT 27195 BRANDON TAYLOR IC 9 [facility] PROPHYLAC INC INC TIC/DX INJECTION SUBQ/IM O2 CONC 1 E1390 EVELYN RIVAS DEL PORT 9 HOME HOME 85%/>02 MEDICAL MEDICAL CONC AT EQUIPMENT EQUIPMENT PRSC FLW RATE PRTBLE E0431 EVELYN RIVAS GASEOUS 9 HOME HOME O2 SYS MEDICAL MEDICAL RENT; EQUIPMENT EQUIPMENT FLWMTR HUMIDFR&M ASK GROUND A0425 [facility] MILEAGE 9 AMBULANCE AMBULANCE PER SERVICE SERVICE STATUTE MILE INITIAL 63288 CHUY DIAZ 9 [facility] ON INTERNAL CARE/DAY MED 30 MINUTES AMB A0427 JULEE LADD SERVICE 9 AMBULANCE AMBULANCE ALS SERVICE SERVICE EMERGENCY TRANSPORT LEVEL 1 HOSPITAL G0378 BRANDON TAYLOR OBSERVATI 9 [facility] ON INC INC SERVICE PER HOUR GLUC BLD 11589 BRANDON TAYLOR GLUC MNTR 9 [facility] DEV INC INC CLEARED FDA SPEC HOME USE AMB A0422 JULEE LADD OXYGEN&O2 9 AMBULANCE AMBULANCE SUPPLIES SERVICE [place] [address] BRANDON TAYLOR INFUSION 9 [facility] THERAPY/P INC INC ROPHYLAXI S /DX 1ST TO 1 HR CREATINE 80368 BRANDON TAYLRO KINASE MB 9 [facility] [place] [address] BRANDON TAYLOR TROPONIN 9 [facility] QUANTITAT INC INC ANNABELLA BLOOD 63220 BRANDON TAYLOR COUNT 9 [facility] COMPLETE INC INC AUTO&AUTO DIFRNTL WBC ECG 47394 BRANDON TAYLOR ROUTINE [address] [facility] ECG INC INC W/LEAST 12 LDS TRCG ONLY W/O I&R CREATINE 03915 BRANDON TAYLOR KINASE 9 [facility] TOTAL INC INC ECG 66213 BRANDON FAJARDO ROUTINE 9 [facility] W/LEAST PROF SERV 12 LDS I&R ONLY BASIC 34794 BRANDON TAYLOR METABOLIC 9 [facility] PANEL INC INC CALCIUM TOTAL COMPREHEN 98334 BRAND[facility] TAY[facility]OR SIVE 9 [facility] METABOLIC INC INC PANEL RADIOLOGI 00576 BRANDON TAYLOR C [address] [facility] EXAMINATI INC INC ON CHEST SINGLE VIEW FRONTAL 3D 76821 BRANDON TAYLOR RENDERING [address] [facility] INC INC W/INTERP& POSTPROC DIFF WORK STATION LOCM Q9967 BRANDON TAYLOR [phone] [facility] MG/ML INC INC IODINE CONCENTRA TION PER ML CT SOFT 37963 BRANDON TAYLOR TISSUE [address] [facility] NECK INC INC W/CONTRAS T MATERIAL RADEX 72928 BR[facility]ON TAY[facility]OR ESOPHAGUS [address] [facility] INC INC NORMAL A4256 DIABETES DIABETES LOW AND 9 CARE CLUB CARE [facility] CALIBRATO R SOLUTION/ [place] [address] BRANDON TAYLOR THYROXINE 9 [facility] TOTAL INC INC CREATININ 10024 [facility] T[facility] E BLOOD 9 [facility] INC INC COLLECTIO 82981 [facility] T[facility] N VENOUS [address] [facility] [facility] BLOOD INC INC VENIPUNCT URE CALCIUM 09733 BRANDON TAYLOR TOTAL 9 [place] [address] BRANDON TAYLOR UREA 9 [facility] NITROGEN INC [place] [address] BR[facility] TAY[facility] THYROID [address] [facility] [facility] STIMULATI INC INC NG HORMONE TSH PRTBLE E0431 EVELYN RIVAS GASEOUS 9 HOME HOME O2 SYS MEDICAL MEDICAL RENT; EQUIPMENT EQUIPMENT FLWMTR HUMIDFR&M ASK O2 CONC 1 E1390 EVELYN SCOTTMIGUEL DEL PORT 9 HOME HOME 85%/>02 MEDICAL MEDICAL CONC AT EQUIPMENT EQUIPMENT PRSC FLW RATE COMPREHEN 53575 BR[facility] TAY[facility]OR SIVE 9 [facility] METABOLIC INC INC PANEL LIPID 80457 BR[facility] TAY[facility]OR PANEL 9 [facility] INC INC COLLECTIO 10202 BRANDON TAYLOR N VENOUS [address] [facility] BLOOD INC INC VENIPUNCT URE RADIOLOGI 93804 [facility] C [address] [facility] EXAMINATI INC INC ON KNEE 3 VIEWS RADEX 25445 [facility] ANKLE [address] [facility] COMPLETE INC INC MINIMUM 3 VIEWS PRTBLE [id number] EVELYN RIVAS GASEOUS 9 HOME HOME O2 SYS MEDICAL MEDICAL RENT; EQUIPMENT EQUIPMENT FLWMTR HUMIDFR&M ASK O2 CONC 1 E1390 EVELYN RIVAS [place] 9 HOME HOME 85%/>02 MEDICAL MEDICAL CONC [place] [address] [facility] INFUSION 9 [facility] THERAPY INC INC PROPHYLAX IS/DX EA HOUR ANES 60962 [facility] 9 ANESTH KANNAN Ortega [facility] ENDOSCOPY DISTAL DUODENUM COLONOSCO 27687 BUNNY LORD, PY 9 [facility]ICAL [place] W/BIOPSY SERV SINGLE/MU FOUNDATIO LTIPLE GLUC BLD 45344 [facility] GLUC MNTR [address] [facility] DEV INC [place] [address] [facility] INFUSION 9 [facility] THERAPY/P INC INC ROPHYLAXI S /DX 1ST TO 1 [place] [address] PATHOLOGY PATHOLOGY SURG 9 & & PATHOLOGY CYTOLOGY CYTOLOGY LAB LAB GROSS&SHANTHI ROSCOPIC EXAM INJECTION J2405 [facility] 9 [facility] ONDANSETR INC INC ON HCL PER 1 MG THERAPEUT 52198 [facility] IC [address] [facility] INJECTION INC INC IV PUSH EACH NEW DRUG THER 42507 [facility] PROPH/DX 9 [facility] NJX IV INC INC PUSH SINGLE/1S T SBST/[place] [address] [facility] TROPONIN 9 [facility] QUANTITAT INC INC ANNABELLA CREATINE 74477 [facility] KINASE MB 9 [facility] [place] [address] [facility] AMYLASE 9 [facility] INC INC BLOOD 32684 [facility] COUNT 9 [facility] COMPLETE INC INC AUTO&AUTO DIFRNTL WBC ECG 31318 BRANDON CHOWDHURY, ROUTINE 9 [facility] W/LEAST PROF SERV 12 LDS I&R ONLY CREATINE 46527 [facility] KINASE 9 [facility] TOTAL INC INC ECG 31736 [facility] ROUTINE 9 [facility] ECG INC INC W/LEAST 12 LDS TRCG ONLY W/O I&[place] [address] [facility] LIPASE 9 [facility] INC INC COMPREHEN 86966 [facility] SIVE 9 [facility] METABOLIC INC INC PANEL URNLS DIP 25473 [facility] 9 [facility] STICK/TAB INC INC LET REAGENT AUTO MICROSCOP Y AMB [id number] [facility] SERVICE 9 AMBULANCE AMBULANCE ALS SERVICE SERVICE EMERGENCY TRANSPORT LEVEL 1 GROUND A0425 [facility] MILEAGE 9 AMBULANCE AMBULANCE PER SERVICE SERVICE STATUTE MILE AMB A0422 [facility] OXYGEN&O2 9 AMBULANCE AMBULANCE SUPPLIES SERVICE SERVICE LIFE SUSTAININ G SITUATION CULTURE 22143 [facility] BCT 9 [facility] ISOL&PRSM INC INC PTV ID ISOLATE EA URINE BLOOD 73345 [facility] COUNT 9 [facility] COMPLETE INC INC AUTO&AUTO DIFRNTL WBC KETONE 98186 [facility] BODIES 9 [facility] SERUM INC INC QUALITATI VE CULTURE 09931 [facility] BACTERIAL 9 [facility] INC INC QUANTTATI VE COLONY COUNT URINE URNLS DIP 00465 [facility] 9 [facility] STICK/TAB INC INC LET REAGENT AUTO MICROSCOP Y COMPREHEN 67535 [facility] SIVE 9 [facility] METABOLIC INC INC PANEL THERAPEUT 26333 [facility] IC 9 [facility] INJECTION [place] [address] [facility] INFUSION 9 [facility] THERAPY/P INC INC ROPHYLAXI S /DX 1ST TO 1 HR SUSCEPTIB 65377 [facility] LTY STDY 9 [facility] ANTIMICRB INC INC IAL MICRO/AGA R DILUTJ O2 CONC 1 E1390 EVELYN RIVAS [place] 9 HOME HOME 85%/>02 MEDICAL MEDICAL CONC AT EQUIPMENT EQUIPMENT PRSC FLW RATE PRTBLE E0431 EVELYN RIVAS GASEOUS 9 HOME HOME O2 SYS MEDICAL MEDICAL RENT; EQUIPMENT EQUIPMENT FLWMTR HUMIDFR&M ASK GLUC BLD 30051 BR[facility] T[facility] GLUC MNTR 9 [facility] DEV INC INC CLEARED FDA SPEC HOME USE THERAPEUT 03759 [facility] IC 9 [facility] PROPHYLAC INC INC TIC/DX INJECTION SUBQ/IM LANCETS A4259 DIABETES DIABETES PER BOX 9 [facility] BLD GLU A4253 DIABETES DIABETES TEST/REAG 9 [facility] T STRIPS [facility] HOME BLD GLU MON-50 PRTBLE E0431 EVELYN RIVAS GASEOUS 9 HOME [...] 9 [facility] 100 [facility] BLD GLU A4253 DIABETES DIABETES TEST/REAG 9 [facility] T STRIPS [facility] HOME BLD GLU MON-50 NORMAL A4256 DIABETES DIABETES LOW AND 9 [facility] CARE CLUB HIGH [facility] CALIBRATO R SOLUTION/ CHIPS O2 CONC 1 E1390 EVELYN RIVAS DEL PORT 8 HOME HOME 85%/>02 MEDICAL MEDICAL CONC AT EQUIPMENT EQUIPMENT PRSC FLW RATE PRTBLE E0431 EVELYN RIVAS GASEOUS 8 HOME HOME O2 SYS MEDICAL MEDICAL RENT; EQUIPMENT EQUIPMENT FLWMTR HUMIDFR&M ASK LANCETS A4259 DIABETES DIABETES PER BOX 8 [facility] 100 [facility] BLD GLU A4253 DIABETES DIABETES TEST/REAG 8 [facility] CARE CLUB T STRIPS [facility] HOME BLD GLU SUN- GASTRIC 22060 [facility] 8 MEDICAL FREDO IMAGING IMAGING STUDY ASSOCIATE S O2 CONC 1 E1390 EVELYN RIVAS DEL PORT 8 HOME HOME 85%/>02 MEDICAL MEDICAL CONC AT EQUIPMENT EQUIPMENT PRSC FLW RATE PRTBLE E0431 EVELYN RIVAS GASEOUS 8 HOME HOME O2 SYS MEDICAL MEDICAL RENT; EQUIPMENT EQUIPMENT FLWMTR HUMIDFR&M ASK LANCETS A4259 DIABETES DIABETES PER BOX 8 [facility] 100 [facility] BLD GLU A4253 DIABETES DIABETES TEST/REAG 8 [facility] CARE CLUB T STRIPS [facility] HOME BLD GLU BASIC 61931 [facility] METABOLIC 8 [facility] [place] [address] BR[facility] T[facility] THER 8 [facility] PROPH/DX INC INC 1ST >1 HR GLUC BLD 37280 BR[facility]ON TAY[facility]OR GLUC MNTR 8 [facility] DEV INC INC CLEARED FDA SPEC HOME USE URNLS DIP 24980 [facility] 8 [facility] STICK/TAB INC INC LET REAGENT AUTO MICROSCOP Y BLOOD 74687 BR[facility] T[facility] COUNT 8 [facility] COMPLETE INC INC AUTO&AUTO [place]RNTL [place]BC [place] NFUS 41518 BR[facility] T[facility] THER 8 [facility] PROPH/DX INC INC EA HR PRTBLE E0431 EVELYN RIVAS GASEOUS 8 HOME HOME O2 SYS MEDICAL MEDICAL RENT; EQUIPMENT EQUIPMENT FLWMTR HUMIDFR&M ASK O2 CONC 1 E1390 EVELYN GUZMAN PORT 8 HOME HOME 85%/>02 MEDICAL MEDICAL CONC [place] [address] [facility] T[facility] HEAD/BRAI 8 [facility] N W/O INC INC CONTRAST MATERIAL 3D 82205 LEONA MÉNDEZ, RENDERING 8 MEDICAL RACHEL P W/INTERP IMAGING & ASSOCIATE POSTPROCE S [place] NFS 90659 BR[facility] THER 8 [facility] PROPH/DX INC INC 1ST >1 HR EGD 59109 BRANDON T[facility] TRANSORAL 8 [facility] BIOPSY INC INC SINGLE/MU LTIPLE ANES 76243 [facility] UPPER GI 8 ANESTH ERLIN L ENDOSCOPY OF THE PROXIMAL [place] TO DUODENUM GLUC BLD 89013 BRANDON RABAGOON GLUC MNTR 8 [facility] DEV INC INC CLEARED FDA SPEC HOME USE CUL 49306 [facility] PRSMPTV 8 MEM H[facility] PTHGNC INC INC ORGANISMS SCR DNS CHART SPECIAL 55356 PATHOLOGY PATHOLOGY STAIN 8 & & GROUP 1 CYTOLOGY CYTOLOGY MICROORGA LAB LAB [facility] [place] I&[place] [address] PATHOLOGY PATHOLOGY SURG 8 & & PATHOLOGY CYTOLOGY CYTOLOGY LAB LAB GROSS&SHANTHI ROSCOPIC EXAM ESOPHAGOG 4516 BR[facility] T[facility] ASTRODUOD [address] [facility] ENOSCOPY INC INC WITH CLOSED BIOPSY LANCETS A4259 DIABETES DIABETES PER BOX 8 [facility] 100 [facility] NORMAL A4256 DIABETES DIABETES LOW AND 8 [facility] CL[facility] CARE CLUB HIGH [facility] CALIBRATO R SOLUTION/ CHIPS BLD GLU A4253 DIABETES DIABETES TEST/REAG 8 CARE CLUB CARE CLUB T STRIPS [facility] HOME BLD GLU MON-50 O2 CONC 1 E1390 EVELYN RIVAS DEL PORT 8 HOME HOME 85%/>02 MEDICAL MEDICAL CONC AT EQUIPMENT EQUIPMENT PRSC FLW RATE PRTBLE E0431 EVELYN RIVAS GASEOUS 8 HOME HOME O2 SYS MEDICAL MEDICAL RENT; EQUIPMENT EQUIPMENT FLWMTR HUMIDFR&M ASK ACUTE 14931 [facility] HEPATITIS 8 [facility] PANEL INC INC COMPREHEN 18225 BR[facility] T[facility] SIVE 8 [facility] [place] [address] BRANDON [facility] AMYLASE 8 [place] [address] [facility] T[facility] LIPASE 8 [facility] INC INC HEPATITIS 76680 BRANDON Boyd CORE 8 MEM H[facility] ANTIBODY INC INC HBCAB TOTAL HEPATITIS 00057 BRANDON Boyd SURF 8 [facility] ANTIBODY INC INC HBSAB HEPATITIS 08152 BR[facility] A 8 [facility] ANTIBODY INC INC HAAB SUSCEPTIB 56254 BR[facility]ON T[facility] LTY STDY 8 [facility] ANTIMICRB INC INC IAL MICRO/AGA R DILUTJ BLOOD 26817 BR[facility] T[facility]OR COUNT 8 [facility] COMPLETE INC INC AUTO&AUTO DIFRNTL WBC CULTURE 92571 [facility] BCT 8 [facility] ISOL&PRSM INC INC PTV ID ISOLATE EA URINE COMPREHEN 53246 BR[facility] T[facility] SIVE 8 [facility] METABOLIC INC INC PANEL URNLS DIP 53060 [facility] 8 [facility] STICK/TAB INC INC LET REAGENT AUTO MICROSCOP Y RADEX ABD 69051 LEONA CORONEL COMPL 8 MEDICAL FREDO AQT ABD IMAGING W/S/E/D ASSOCIATE VIEWS 1 S VIEW CH CULTURE 76631 [facility] BACTERIAL 8 [facility] INC INC QUANTTATI VE COLONY COUNT URINE PRTBLE E0431 EVELYN RIVAS GASEOUS 8 HOME HOME O2 SYS MEDICAL MEDICAL RENT; EQUIPMENT EQUIPMENT FLWMTR HUMIDFR&M ASK O2 CONC 1 E1390 CYNMIGUEL JONANA DEL PORT 8 HOME HOME 85%/>02 MEDICAL MEDICAL CONC AT EQUIPMENT EQUIPMENT PRSC FLW RATE O2 CONC 1 E1390 CYNPAULIEANA DONTRELLANA DEL PORT 8 HOME HOME 85%/>02 MEDICAL MEDICAL CONC AT EQUIPMENT EQUIPMENT PRSC FLW RATE PRTBLE E0431 EVELYN RIVAS GASEOUS 8 HOME HOME O2 SYS MEDICAL MEDICAL RENT; EQUIPMENT EQUIPMENT FLWMTR HUMIDFR&M ASK NORMAL A4256 DIABETES DIABETES LOW AND 8 C[facility] CL[facility] CARE [facility] CALIBRATO R SOLUTION/ CHIPS LANCETS A4259 DIABETES DIABETES PER BOX 8 [facility] 100 [facility] BLD GLU A4253 DIABETES DIABETES TEST/REAG 8 C[facility] CLUB CARE CLUB T STRIPS [facility] LLC HOME BLD GLU MON-50 HOME E0607 DIABETES DIABETES BLOOD 8 CARE CLUB CARE CLUB GLUCOSE [facility] MONITOR SPRING-PO A4258 DIABETES DIABETES WERED 8 CARE CLUB CARE CLUB [facility] LLC FOR LANCET EACH O2 CONC 1 E1390 EVELYN RVIAS DEL PORT 8 HOME HOME 85%/>02 MEDICAL MEDICAL CONC AT EQUIPMENT EQUIPMENT PRSC FLW RATE PRTBLE E0431 EVELYN RIVAS GASEOUS 8 HOME HOME O2 SYS MEDICAL MEDICAL RENT; EQUIPMENT EQUIPMENT FLWMTR HUMIDFR&M ASK LIPID 81054 [facility] PANEL 8 [facility]P INJECTION 27088 [facility] CARDIAC 8 ORTH, CATHJ L CARDIOLOG MARIANA VENTR/L Y ATR CONSULTAN ANGIOGRAP T H COLLECTIO 17771 [facility]TR[facility] N VENOUS 8 [facility] BLOOD HOSP HOSP VENIPUNCT URE L HRT 52283 [facility]ENTRAL CATHETERI 8 [facility]RI[facility]ISM [facility]RI[facility]ISM ZATION HOSP [place]OS[place] [address] CENTRAL CENTRAL C-CATHJ 8 ZOROASTRIANISM ZOROASTRIANISM F/SLCTV C HOSP HOSP ANGRPH I SI&R 48903 [facility] F/NJX PX 8 ORTH, DURING CARDIOLOG MARIANA C-CATHJ Y VENTR&/AT CONSULTAN R ANGRPH T I SI&R 93128 CENTRAL CENTRAL F/NJX PX 8 ZOROASTRIANISM ZOROASTRIANISM DURING HOSP HOSP C-CATHJ PULM&/OR SELECT GLUCOSE 08453 CENTRAL CENTRAL BLOOD 8 ZOROASTRIANISM [facility]ASTRI[facility]ISM REAGENT HOSP HOSP STRIP LEFT 3722 CENTRAL CENTRAL HEART 8 ZOROASTRIANISM ZOROASTRIANISM CARDIAC HOSP HOSP CATHETERI ZATION ANGIOCARD 8853 CENTRAL CENTRAL IOGRAPHY 8 ZOROASTRIANISM ZOROASTRIANISM OF LEFT HOSP HOSP HEART STRUCTURE S CORONARY 8856 CENTRAL CENTRAL ARTERIOGR 8 ZOROASTRIANISM ZOROASTRIANISM APHY HOSP HOSP USING TWO CATHETERS RADIOLOGI 19105 CENTRAL ZAMUDIO, C EXAM 8 RADIOLOGY ROB CHEST 2 ASSOC C VIEWS FRONTAL&L ATERAL ECG 31629 [facility] ROUTINE 8 ORTH, ECG CARDIOLOG MARIANA W/LEAST Y 12 LDS CONSULTAN I&R ONLY T ECG 61099 CENTRAL CENTRAL ROUTINE 8 ZOROASTRIANISM ZOROASTRIANISM ECG HOSP HOSP W/LEAST 12 LDS TRCG ONLY W/O I&R COLLECTIO 08207 CENTRAL CENTRAL N VENOUS 8 ZOROASTRIANISM ZOROASTRIANISM BLOOD HOSP HOSP VENIPUNCT URE BLOOD 60184 CENTRAL CENTRAL COUNT 8 ZOROASTRIANISM ZOROASTRIANISM COMPLETE HOSP HOSP AUTOMATED BASIC 37127 CENTRAL CENTRAL METABOLIC 8 ZOROASTRIANISM ZOROASTRIANISM PANEL HOSP HOSP CALCIUM TOTAL SMALL A7004 [place] VOLUME 8 HOME [...] RENT; EQUIPMENT EQUIPMENT FLWMTR HUMIDFR&M ASK CYTP 73966 [facility]LY, CERV/VAG 8 [place] INC MAR P AUTO THIN LAYER PREP MNL SCREEN CREATINE 74918 BRANDON TAYLOR KINASE MB 8 MEM HOS[facility] FRACTION INC INC ONLY BLOOD 07378 BR[facility] TAYLOR COUNT 8 [facility] H[facility]OS[facility] COMPLETE INC INC AUTO&AUTO DIFRNTL WBC AMB A0422 JULEE LADD OXYGEN&O2 8 AMBULANCE AMBULANCE SUPPLIES SERVICE SERVICE [place] [address] BR[facility] T[facility] TROPONIN 8 MEM HOSP MEM HOS[facility] QUANTITAT INC INC ANNABELLA ECG 73381 BRANDON FAJARDO ROUTINE 8 [facility], ECG HOSPITAL KANNAN F W/LEAST PROF SERV 12 LDS I&R ONLY RHYTHM 05-18-200 81799 BR[facility] TAYL[facility] ECG 1-3 8 [facility] HOSP LEADS INC INC TRACING ONLY W/O I&R ECG 63613 BRANDON TAYLOR ROUTINE 8 [facility] HOSP ECG INC INC W/LEAST 12 LDS TRCG ONLY W/O I&R CREATINE 48005 BRANDON TAYLOR KINASE 8 [facility] HOSP TOTAL INC INC RADIOLOGI 19180 [facility] 8 MEDICAL FREDO EXAMINATI IMAGING ON CHEST ASSOCIATE SINGLE S VIEW FRONTAL BASIC 89203 BRANDON TAYLOR METABOLIC 8 [facility] HOSP PANEL INC INC CALCIUM TOTAL GROUND A0425 [facility]ULANCE AMBULANCE PER SERVICE SERVICE STATUTE MILE AMB A0427 [facility] SERVICE 8 AMBULANCE AMBULANCE ALS SERVICE SERVICE EMERGENCY TRANSPORT LEVEL 1 O2 CONC 1 E1390 EVELYN RIVAS DEL PORT 8 HOME HOME 85%/>02 MEDICAL MEDICAL CONC AT EQUIPMENT EQUIPMENT PRSC FLW RATE PRTBLE E0431 EVELYN RIVAS GASEOUS 8 HOME HOME O2 SYS MEDICAL MEDICAL RENT; EQUIPMENT EQUIPMENT FLWMTR HUMIDFR&M ASK DOPPLER 08162 BRANDON TAYLOR ECHOCARD 8 [facility] HOSP PULSE INC INC WAVE W/SPECTRA L DISPLAY ECHO 63956 BRANDON JAUREGUIANIYA TRANSTHOR 8 [facility] R-T 2D [facility] W/WO PROF SERV M-MODE REC COMP DOP 40666 BR[facility] TAYLOR ECHOCARD 8 [facility] HOSP COLOR INC INC FLOW VELOCITY MAPPING RADIOLOGI 44807 [facility] [place] [place] EXAM 8 MEDICAL RACHEL P CHEST 2 IMAGING VIEWS ASSOCIATE FRONTAL&L S ATERAL INITIAL 04568 [place] SCOTTY OBSERVATI 8 [facility], ON INTERNAL [facility] CARE/DAY MED 30 MINUTES FLUOR 33440 CARIN DEL ROSARIO, NEEDLE/CA 8 ERVIN Nunn TH SPINE/PAR ASPINAL [place] [address] CARIN DLE ROSARIO, ANES&/STR 8 ERVIN Pichardo JT NRV CRV/THRC EA LVL NJX 79509 HARRIES, HARRIES, ANES&/STR 8 ERVIN HuffmanT NRV CRV/THRC 1 LVL ECG 62336 BRANDON HEATHERMIChristiano ROUTINE 8 [facility] KANNAN Ortega W/LEAST PROF SERV 12 LDS I&R ONLY 25 98606 BR[facility] T[facility] HYDROXY 8 [facility] INCLUDES INC INC FRACTIONS IF PERFORMED ECG 16987 [facility] T[facility] ROUTINE 8 [facility] MEM [facility]OS[facility] ECG INC INC W/LEAST 12 LDS TRCG ONLY W/O I&R THYROID 00353 [facility] T[facility] HORM 8 [facility] H[facility] UPTK/THYR INC [place] [address] [facility] THYROID 8 MEM H[facility] MEM HOS[facility] STIMULATI INC INC NG HORMONE TSH BLOOD 76937 [facility] COUNT 8 [facility] COMPLETE INC INC AUTO&AUTO DIFRNTL WBC COMPREHEN 34773 [facility] SIVE 8 [facility] [place] [address] [facility] THYROXINE 8 [facility]OS[facility] TOTAL INC INC THROMBOPL 51927 [facility] T[facility] ASTIN 8 [facility] TIME INC INC PARTIAL PLASMA/WH OLE BLOOD PROTHROMB 76658 BR[facility]ON T[facility] IN TIME 8 [facility] HOS[facility]OS[facility] INC INC PRTBLE E0431 EVELYN RIVAS GASEOUS 8 HOME HOME O2 SYS MEDICAL MEDICAL RENT; EQUIPMENT EQUIPMENT FLWMTR HUMIDFR&M ASK O2 CONC 1 E1390 EVELYN RIVAS DEL PORT 8 HOME HOME 85%/>02 MEDICAL MEDICAL CONC AT EQUIPMENT EQUIPMENT PRSC FLW RATE APPL 21851 KAVYA HOFF, MODALITY 8 ERVIN Huffman 1/> AREAS 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 L CHIROPRAC 13086 KAVYA HOFF, TIC 8 ERVIN Huffman MANIPULAT ANNABELLA [place] SPINAL 3-4 REGIONS APPLICATI 95388 KAVYA HOFF, ON 8 ERVIN Huffman MODALITY 1/> AREAS HOT/COLD PACKS THERAPEUT 18237 KAVYA HOFF, ACTVITY 8 ERVIN Huffman DIRECT PT CONTACT EACH 15 MIN THERAPEUT 55524 KAVYA HOFF, ACTVITY 8 ERVIN Huffman DIRECT PT CONTACT EACH 15 MIN APPLICATI 99474 KAVYA HOFF, ON 8 ERVIN Huffman MODALITY 1/> AREAS HOT/COLD PACKS CHIROPRAC 17354 KAVYA HOFF, TIC 8 ERVIN Huffman MANIPULAT ANNABELLA [place] SPINAL 3-4 REGIONS APPL 41966 KAVYA HOFF, MODALITY 8 ERVIN Huffman 1/> AREAS 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 L APPL 22524 KAVYA HOFF, MODALITY 8 ERVIN Huffman 1/> AREAS 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 L CHIROPRAC 15307 KAVYA HOFF, TIC 8 ERVIN Huffman MANIPULAT ANNABELLA TX SPINAL 3-4 REGIONS APPLICATI 13043 KAVYA HOFF, ON 8 ERVIN Huffman MODALITY 1/> AREAS HOT/COLD PACKS THERAPEUT 75939 KAVYA HOFF, ACTVITY 8 ERVIN Huffman DIRECT PT CONTACT EACH 15 MIN MYOCRD 31069 BR[facility] T[facility] PRFUJ STD 8 [facility] EJEC FXJ INC INC MYOCRD 73079 [place] HAW[place], PRFUJ STD 8 HEART & NEZAR M WALL VASCULAR MOTION ASSOC QUAL/CASSANDRA STD MYOCRD 30433 [place] HAWKROSITA PRFUJ IMG 8 HEART & NEZAR M TOMOG VASCULAR SPECT HOG STOMACH 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 ASSOC STD OBSERVATI 83190 [place] RAEANN, ON CARE 8 [facility] DIS[facility]GE INTERNAL MED MANAGEMEN T GLUC BLD 95719 BR[facility] T[facility] GLUC MNTR 8 [facility] DEV INC INC CLEARED FDA SPEC HOME USE HOSPITAL G0378 [facility] OBSERVATI 8 [facility] ON INC INC SERVICE PER HOUR CV STRS 03625 [place] IRMA, TST 8 HEART & NEZAR M XERS&/OR VASCULAR RX CONT ASSOC ECG W/O I&R CV STRS 08710 [facility] TST 8 MEM H[facility] XERS&/OR INC INC RX CONT ECG TRCG ONLY CV STRS 72338 LEONA SOLIS, TST 8 HEART & NEZAR M XERS&/OR VASCULAR RX CONT ASSOC ECG I&R ONLY TECHNETIU A9500 BR[facility]ON TAYLOR M TC-99M 8 [facility] SESTAMIBI INC INC DX PER STUDY DOSE ECG 44164 BRANDON CARY, ROUTINE 8 [facility] W/LEAST PROF SERV 12 LDS I&R ONLY IV NFUS 93595 BR[facility] T[facility] THER 8 [facility] PROPH/DX INC INC EA HR CREATINE 36485 BR[facility] TAYLOR KINASE 8 MEM H[facility] TOTAL INC INC RHYTHM 67658 BRANDON TAYLOR ECG 1-3 8 MEM [facility] LEADS INC INC TRACING ONLY W/O I&R ECG 16758 BR[facility] TAYLOR ROUTINE 8 [facility] ECG INC INC W/LEAST 12 LDS TRCG ONLY W/O I&R HOSPITAL G0378 [facility] OBSERVATI 8 [facility]OS[facility] ON INC INC SERVICE PER HOUR BLOOD 48837 BR[facility] TAYLOR COUNT 8 [facility] COMPLETE INC INC AUTO&AUTO DIFRNTL WBC CREATINE 24952 BRANDON TAYLOR KINASE MB 8 [facility] [place] [address] [facility] T[facility] TROPONIN 8 MEM H[facility]OS[facility] QUANTITAT INC INC ANNABELLA GLUC BLD 78569 BRANDON TAYLOR GLUC MNTR 8 [facility] DEV INC INC CLEARED FDA SPEC HOME USE RADIOLOGI 14087 BR[facility]ON TAYL[facility] C 8 [facility] EXAMINATI INC INC ON CHEST SINGLE VIEW FRONTAL AMB A0427 JU[facility]E [facility] SERVICE 8 AMBULANCE AMBULANCE ALS SERVICE SERVICE EMERGENCY TRANSPORT LEVEL 1 IV NFS [address] BRANDON TAYLOR THER 8 MEM H[facility]OS[facility] PROPH/DX INC INC 1ST >1 HR BASIC 13138 BRANDON BRANDON METABOLIC 8 [facility] PANEL INC INC CALCIUM TOTAL LIPID 28595 BR[facility] TAY[facility]OR PANEL 8 [facility]OS[facility] INC INC INITIAL 05624 [place] SCOTTY OBSERVATI 8 [facility], ON INTERNAL KANNAN F CARE/DAY MED 30 MINUTES GROUND A0425 [facility] 8 AMBULANCE AMBULANCE PER SERVICE SERVICE STATUTE MILE O2 CONC 1 E1390 EVELYN RIVAS DEL PORT 8 HOME HOME 85%/>02 MEDICAL MEDICAL CONC AT EQUIPMENT EQUIPMENT PRSC FLW RATE PRTBLE E0431 EVELYN RIVAS GASEOUS 8 HOME HOME O2 SYS MEDICAL MEDICAL RENT; EQUIPMENT EQUIPMENT FLWMTR HUMIDFR&M ASK COMPREHEN 64909 BR[facility] TAY[facility] SIVE 8 [facility] [place] [address] BR[facility]ON TAYL[facility] THYROXINE [address] [facility] [facility] TOTAL INC INC HEMOGLOBI 67946 [facility] N [address] [facility] GLYCOSYLA INC INC ML A1C BLOOD 42048 BRANDON TAYLOR COUNT [address] [facility] COMPLETE INC INC AUTO&[place] [address] [facility]ANDON [facility] THYROID [address] [facility] STIMULATI [place] [address] BRANDON TAYLOR FOLIC [address] [facility] [facility] [place] [address] BRANDON TAYLOR THIAMINE- [address] [facility] VITAMIN INC INC B-1 CYANOCOBA 59605 BRANDON TAYLOR PRATEEK [address] [facility] VITAMIN INC INC B-12 SYPHILIS 96659 BRANDON TAYLOR TEST [address] [facility] NON-TREPO INC INC NEMAL ANTIBODY QUAL NDL EMG 2 95668 SAMANTA ENGLAND, XTR W/WO 8 CHUCK WOODS RELATED PARASPINA L AREAS NRV CNDJ 58585 SAMANTA ENGLAND, AMPLT&LAT 8 CHUCK HAYWARDY EA NRV MOTOR W/F-WAVE STD NRV CNDJ 15921 SAMANTA ENGLAND, AMPLITUDE 8 CHUCK WOODS & LATENCY EACH NERVE SENSORY RHEUMATOI 37833 BRANDON Pichardo FACTOR [address] [facility] QUANTITAT INC INC ANNABELLA PRTBLE E0431 EVELYN RIVAS GASEOUS 8 HOME HOME O2 SYS MEDICAL MEDICAL RENT; EQUIPMENT EQUIPMENT FLWMTR HUMIDFR&M ASK O2 CONC 1 E1390 EVELYN RIVAS DEL PORT 8 HOME HOME 85%/>02 MEDICAL MEDICAL CONC AT EQUIPMENT EQUIPMENT PRSC FLW RATE Encounters Encounter Start End Date Code Location Performer Type Date [facility] BRANDON Cooley [address] [facility]EN [facility] BRANDON Cooley 7 [facility] BRANDON Cooley 7 [facility]PATIEN [facility] BRANDON Cooley 7 [facility]AND[facility] Cooley [address] [facility] EMERGENCY 04605 BRANDON Cooley [address] [facility] T VISIT [facility]OW/MODER SEVERITY HOSPITAL BRANDON Cooley [address] [facility] 27081 BRANDON DEPT [address] [facility] VISIT [facility] HIGH [facility]VERITY& THREAT [facility] BRANDON Cooley [address] [facility] OUTPATIEN [facility] EMERGENCY 02029 BRANDON Cooley [address] [facility] T VISIT LOW/MODER SEVERITY HOSPITAL BRANDON Cooley [address] [facility] OUTPATIEN [facility] OFFICE 81262 [facility] 7 7 PARTNERS T VISIT OF BELLE 25 CO MINUTES EMERGENCY 30769 BRANDON Cooley [address] [facility] T VISIT HIGH/URGE NT SEVERITY HOSPITAL BRANDON Cooley [address] [facility] OUTPATIEN [facility] BRANDON Cooley [address] [facility] BRANDON - OTHER [address] [facility] BRANDON - [address] [facility] BRANDON - [address] [facility]PAT[facility]EN [facility] OFFICE 47217 [facility] CLARIBEL OUTPATIEN 7 7 PHYSICIAN T VISIT GROUP 15 MINUTES OFFICE [id number] BUNNY PULLIAM OUTPATIEN 7 7 MEDICAL ASTELLANO T NEW 30 SERV S MINUT[facility] - 7 7 [facility] OUTPATIEN E [facility] [place] - [address] [facility]PATIEN [facility] OFFICE 31634 [facility] 7 7 PHYSICIAN T VISIT S GROUP 15 MINUTES EMERGENCY [id number] [facility] 7 [facility] PHYS HIGH/URGE NT SEVERITY EMERGENCY 56705 [facility] KESSLER DEPT 7 7 PHYSICIAN VISIT S, PLLC HIGH SEVERITY& THREAT [facility] [place] - [address] [facility]PATIEN [facility] T EMERGENCY [id number] [place] [address] [facility] DEPARTMEN [facility] T VISIT LOW/MODER SEVERITY [facility]OSP[facility] [place] - [address] [facility] OUTPATIEN [facility] EMERGENCY 21375 [facility] PEDROZA DEPT 7 7 PHYSICIAN VISIT S, PLLC HIGH SEVERITY& THREAT [facility]J EMERGENCY 19718 [place] [address] [facility] DEPARTMEN [facility] T VISIT HIGH/URGE NT SEVERITY [facility] [place] - [address] [facility] OUTPATIEN [facility] [place] - OTHER [address] [facility] EMERGENCY [id number] [facility] [facility] T VISIT MODERATE SEVERITY EMERGENCY 36447 [facility] 7 7 PHYSICIAN DEPARTMEN S, [facility] T VISIT HIGH/URGE NT SEVERITY [facility]OS[facility] [place] - [address] [facility] OUTPATIEN [facility] OFFICE [id number] [place] LUIS OUTPATIEN [address] MINUTES [facility] - OTHER [address] [facility] EMERGENCY 57638 LE[facility] SINGH DEPT 7 7 PHYSICIAN VISIT S, [facility] HIGH SEVERITY& THREAT [facility] [place] - [address] [facility] OUTPATIEN [facility] EMERGENCY [id number] [place] [address] [facility] T VISIT LOW/MODER SEVERITY [facility] - [address] [facility] OUTPATIEN [facility] EMERGENCY 85716 LE[facility] PEDROZA DEPT 7 7 PHYSICIAN VISIT S, [facility] HIGH SEVERITY& THREAT FUNJ EMERGENCY [id number] [place] [address] [facility] DEPARTMEN [facility] T VISIT LOW/MODER SEVERITY [facility]OSP[facility] - [address] [facility] - OTHER [address] [facility] - [address] [facility] - [address] [facility] - [address] [facility] OUTPATIEN [facility] T EMERGENCY 41748 LEIGHTON PEDROZA 6 6 PHYSICIAN DEPARTMEN S, [facility] T VISIT HIGH/URGE NT SEVERITY EMERGENCY 44603 [place] 6 6 [facility] DEPARTMEN [facility] T VISIT LOW/MODER SEVERITY [facility] [place] - [address] [facility] OUTPATIEN [facility] T OFFICE 22051 [facility] PHYSICIAN T VISIT S GROUP 25 MINUTES [facility] [place] - [address] [facility]IENT [facility] [facility] BRANDON - 6 6 [facility] OUTPATIEN [facility] EMERGENCY 46997 [place] PEDROZA 6 6 PHYSICIAN ILIR DANIELS S [facility] T VISIT HIGH/URGE NT SEVERITY EMERGENCY 18156 BRANDON 6 6 [facility] VISIT LOW/MODER SEVERITY HOSPITAL BRANDON - 6 6 [facility] OUTPATIEN [facility] OFFICE 03920 [facility] LORIE [facility] 6 6 PHYSICIAN T NEW 45 S GROUP MINUTES EMERGENCY 07587 LE[place] PEDROZA 6 6 PHYSICIAN ILIR DANIELS S [facility] T VISIT HIGH/URGE NT SEVERITY EMERGENCY 82525 LE[place] JHAVERI 6 6 PHYSICIAN RUBIOOHIOHEALTH [facility] T VISIT HIGH/URGE NT SEVERITY HOSPITAL BRANDON - 6 6 [facility] OUTPATIEN [facility] EMERGENCY 03026 BRANDON 6 6 [facility] VISIT [facility]OW/MODER SEVERITY HOSPITAL BRANDON - 6 6 [facility] OUTPATIEN [facility] OFFICE 20601 [facility] OUTPATIEN 6 6 FOOT & T NEW 30 ANKLE CE MINUTES HOSPITAL BRANDON [facility] 6 6 [facility] OUTPATIEN [facility] HOSPITAL BRANDON - 6 6 [facility] OUTPATIEN [facility] EMERGENCY 30335 LE[place] KESSLER 6 6 [facility] T VISIT HIGH/URGE NT SEVERITY EMERGENCY 10742 BRANDON 6 6 [facility] VISIT LOW/MODER SEVERITY HOSPITAL BRANDON - 6 6 [facility] OUTPATIEN [facility] HOSPITAL BRANDON [facility] 6 6 [facility] OUTPATIEN [facility] EMERGENCY 54901 LEIGHTON MARTINEZ, 6 6 PHYSICIAN JR [facility], [facility] T VISIT HIGH/URGE NT SEVERITY EMERGENCY 53916 BRANDON 6 6 [facility] T VISIT LOW/MODER SEVERITY OFFICE 57189 [facility] KEREN ALMAGUER OUTPATIEN 6 6 PHYSICIAN T VISIT S GROUP 10 MINUTES EMERGENCY 25806 BRANDON 6 6 [facility] T VISIT LOW/MODER SEVERITY HOSPITAL BRANDON - 6 6 [facility] T EMERGENCY 02061 LE[place]ON MAC 6 6 PHYSICIAN Meng [facility] S, [facility] T VISIT HIGH/URGE NT SEVERITY EMERGENCY 66793 LE[place]ON KESSLER 6 6 PHYSICIAN SHANTHI [facility], [facility] T VISIT HIGH/URGE NT SEVERITY HOSPITAL BRANDON - 6 6 [facility] EMERGENCY 65200 BRANDON 6 6 [facility] T VISIT LIMITED/M INOR PROB OFFICE 76213 [facility] HERNANDEZ [facility] 6 6 PHYSICIAN JERRY T VISIT S GROUP 10 MINUTES HOSPITAL BRANDON - 6 6 [facility] OUTPATIEN [facility] HOSPITAL BRANDON - 6 6 [facility] EMERGENCY 46980 BRANDON 6 6 [facility] T VISIT LOW/MODER SEVERITY OFFICE 11167 EVELYN HALLMAN JAMES [facility] 6 6 [facility] 10 MINUTES HOSPITAL BRANDON - OTHER 6 6 [facility] BRANDON - OTHER 6 6 [facility] BRANDON - OTHER 5 5 [facility] EMERGENCY 25289 LE[place]ON KESSLER DEPT 5 5 PHYSICIAN SHANTHI VISIT S, [facility] HIGH SEVERITY& THREAT FUNCJ EMERGENCY 57293 BRANDON [address] [facility] DEPARTMEN [facility] T VISIT MODERATE SEVERITY HOSPITAL BRANDON - [address] [facility] OUTPATIEN [facility] EMERGENCY 83448 LE[place] KESSLER 5 5 PHYSICIAN [facility] DEPARTMEN [facility] T VISIT HIGH/URGE NT SEVERITY HOSPITAL BRANDON - 5 5 [facility] OUTPATIEN [facility] EMERGENCY 35951 LEIGHTON MAC 5 5 PHYSICIAN [facility] T VISIT HIGH/URGE NT SEVERITY OFFICE 99928 [facility] 5 5 [facility] T VISIT INTERNAL 15 MED MINUTES EMERGENCY 00279 LE[place] KESSLER DEPT 5 5 PHYSICIAN SHANTHI VISIT [facility] HIGH SEVERITY& THREAT [facility] EMERGENCY 64088 BRANDON 5 5 [facility] DEPARTMEN [facility] T VISIT HIGH/URGE NT SEVERITY HOSPITAL BRANDON - [address] [facility] OUTPATIEN [facility] HOSPITAL BRANDON [facility] 5 5 [facility] OUTPATIEN [facility] HOSPITAL BRANDON [facility] 5 5 [facility] OUTPATIEN [facility] BRANDON - 5 5 [facility] OUTPATIEN [facility] EMERGENCY 15652 LEIGHTON KESSLER 5 5 PHYSICIAN [facility] DEPARTMEN , [facility] T VISIT HIGH/URGE NT SEVERITY HOSPITAL BRANDON - [address] [facility] OUTPATIEN [facility] EMERGENCY 57972 BRANDON 5 5 [facility] DEPARTMEN [facility] T VISIT LOW/MODER SEVERITY OFFICE 21248 [facility] 5 MEDICAL AYANANE T VISIT SERV ACH 25 FOUNDATIO MINUTES HOSPITAL BRANDON - 5 5 [facility] OUTPATIEN [facility] UNIVERSIT - 5 5 [facility] BRANDON [facility] OTHER 5 5 [facility]ITAL BRANDON - 5 5 [facility] OUTPATIEN [facility] T EMERGENCY 40429 BR[facility]ON MARTINEZ, 5 5 [facility] T VISIT P HIGH/URGE NT SEVERITY OFFICE 20727 [place] [facility] 5 5 MEDICAL AYANANE T VISIT SERV ACH 25 FOUNDATIO MINUTES HOSPITAL BRANDON - 5 5 [facility] 77245 BR[facility]ON [facility] 5 5 [facility] T VISIT P HIGH/URGE NT SEVERITY OFFICE 75422 [facility] PETTEY [facility] 4 4 PHYSICIAN JAM T VISIT S GROUP 25 MINUTES HOSPITAL BRANDON - 4 4 [facility] 72784 [facility] [address] [facility]ERGENC[facility] T VISIT PHYS MODERATE SEVERITY EMERGENCY 04317 BRANDON 4 4 [facility] T VISIT LOW/MODER SEVERITY OFFICE 03131 EAR, NOSE SHASHY OUTPATIEN 4 4 AND SOBEIDA T VISIT THROAT 25 SPECIAL MINUTES OFFICE 10528 MARNI MARNI OUTPATIEN 4 4 LUIS ALFREDO LUIS ALFREDO T VISIT 25 MINUTES OFFICE 01995 EAR, NOSE SHASHY OUTPATIEN 4 4 AND SOBEIDA T VISIT THROAT 25 SPECIAL MINUTES HOSPITAL BRANDON - 4 4 [facility] OUTPATIEN [facility] H[facility]PITAL UNIVERSIT - 4 4 [facility] T OFFICE 49939 [place] [facility] 4 4 MEDICAL AYANANE T VISIT SERV ACH 25 FOUNDATIO MINUTES EMERGENCY 76247 [facility] 4 4 [facility] EMERGENCY T VISIT PHYS HIGH/URGE NT SEVERITY HOSPITAL [facility]ERSIT - 4 4 [facility] OFF[facility] 68570 [facility] OUTPATIEN 4 4 DERMATOLO DERMATOLO T NEW 30 GY GY MINUTES HOSPITAL BRANDON - 4 4 [facility] BR[facility] - 4 4 [facility] BR[facility]ON [facility] 4 4 [facility] UNIVERSIT - OTHER 4 4 Y HOSPITAL EMERGENCY 91009 BUNNY DAVIES 4 4 MEDICAL MAT DEPARTMEN SERV T VISIT FOUNDATIO HIGH/URGE NT [facility]PITAL UNIVERSIT - 4 4 [facility] OTHER [address] [facility] EMERGENCY 76472 [facility] DE[facility] 4 4 KAMAR VISIT EMERGENCY HIGH PHYS SEVERITY& THREAT [facility] BRANDON - 4 4 [facility] BRANDON - 4 4 [facility] BRAND[facility] - OTHER [address] [facility] OFFICE 99795 BUNNY MANZANO PHI OUTPATIEN 4 4 MEDICAL T NEW 30 SERV MINUTES FOUNDATIO OFFICE 55991 BR[facility] MIRANDA OUTPATIEN 4 4 [facility] 15 P MINUTES HOSPITAL BRANDON - 4 4 [facility] 28576 MARLO KESSLER DEPT 4 4 EMERGENCY SHANTHI VISIT SERVICES HIGH SEVERITY& THREAT [facility] OFFICE 52843 AMA WYMAN OUTSHABBIR 4 4 NEUROLOGY FERNANDEZ T NEW 45 CENTER MINUTES [facility] BRANDON - 4 4 [facility] BRANDON - 4 4 [facility]PATI[facility] BRANDON - 4 4 [facility]PATIEN [facility] EMERGENCY 43770 MARLO KESSLER DEPT 3 3 EMERGENCY SHANTHI VISIT SERVICES HIGH SEVERITY& THREAT [facility] BRANDON - 3 3 [facility]PATI[facility] OFFICE 04909 [facility] MIRANDA OUTPATIEN [address] [facility] 10 P MINUTES HOSPITAL BRANDON - 3 3 [facility]PATI[facility] BRANDON - 3 3 [facility]PATI[facility] BRANDON - 3 3 [facility]PATI[facility] OFFICE 10110 BRANDON MIRANDA OUTPATIEN [address] [facility] 10 P MINUTES [facility] BRANDON - 3 3 [facility]PATI[facility] EMERGENCY 53825 BRANDON [address] [facility] VISIT LOW/MODER SEVERITY EMERGENCY 42708 MARLO COTTO DEPT 3 3 EMERGENCY BRO VISIT SERVICES HIGH SEVERITY& THREAT [facility] OFFICE 09986 MARNI MICHELLEHBURN OUTPATIEN 3 3 LUIS ALFREDO LOBATO T VISIT 15 MINUTES HOSPITAL BRANDON - 3 3 [facility]PATIEN [facility] BRANDON - 3 3 [facility]PAT[facility] BRANDON - 3 3 [facility]PATIEN [facility] BRANDON - 3 3 [facility] OFFICE 57167 MARNI MARNI OUTPATIEN 3 3 LUIS ALFREDO LOBATO T VISIT 25 MINUTES HOSPITAL BRANDON - 3 3 [facility] OFFICE 67123 [place] MCKEMIE OUTPATIEN 3 3 ZACKERY HUMPHREYS T VISIT INTERNAL 15 MED MINUTES HOSPITAL BR[facility]ON - 3 3 [facility] OUTPATIEN INC T HOSPITAL [facility] - 3 3 [facility] OUTPATIEN INC T OFFICE 83381 MARNI MARNI OUTPATIEN 3 3 LUIS ALFREDO LUIS ALFREDO T VISIT 40 MINUTES HOSPITAL [facility]ON - 3 3 [facility] OUTPATIEN INC T OFFICE 06056 [place] MCKEMIE OUTPATIEN 3 3 ZACKERY HUMPHREYS T VISIT INTERNAL 15 MED MINUTES OFFICE 03363 [place] MUSTAPHA OUTPATIEN 3 3 ZACKERY ZHAO T VISIT INTERNAL 15 MEDI MINUTES OFFICE 35883 [place] MCKEMIE OUTPATIEN 3 3 ZACKERY HUMPHREYS T VISIT INTERNAL 15 MED MINUTES OFFICE 53641 [place] MCKEMIE OUTPATIEN 3 3 ZACKERY HUMPHREYS T VISIT INTERNAL 15 MED MINUTES HOSPITAL [facility]ON - 3 3 [facility] OUTPATIEN INC T OFFICE 31291 [place] MUSTAPHA OUTPATIEN 3 3 ZACKERY ZHAO T VISIT INTERNAL 15 MEDI MINUTES HOSPITAL [facility]ON - 3 3 [facility] OUTPATIEN INC T OFFICE 10143 [place] MCKEMIE OUTPATIEN 3 3 ZACKERY HUMPHREYS T VISIT INTERNAL 15 MED MINUTES HOSPITAL BR[facility]ON - 3 3 [facility] OUTPATIEN INC T OFFICE 25689 [place] MUSTAPHA OUTPATIEN 3 3 ZACKERY ZHAO T VISIT INTERNAL 15 MEDI MINUTES OFFICE 13139 [facility] PETTEY OUTPATIEN 3 3 PHYSICIAN LUCITA T NEW 30 S GROUP MINUTES HOSPITAL BRADNON - 3 3 [facility] OUTPATIEN INC T OFFICE 27853 [place] MUSTAPHA OUTPATIEN 3 3 ZACKERY ZHAO T VISIT INTERNAL 15 MEDI MINUTES HOSPITAL BR[facility]ON - 3 3 [facility] OUTPATIEN INC T OFFICE 06887 [place] MUSTAPHA OUTPATIEN 3 3 ZACKERY CECE T VISIT INTERNAL 15 MEDI MINUTES OFFICE 32732 MARNI MARNI OUTPATIEN 3 3 LUIS ALFREDO LUIS ALFREDO T VISIT 25 MINUTES OFFICE 22597 MARNI MARNI OUTPATIEN 3 3 LUIS ALFREDO LUIS ALFREDO T VISIT 25 MINUTES OFFICE 99048 [facility] MUSTAPHA OUTPATIEN 3 3 [facility] CECE T VISIT INTERNAL 15 MEDI MINUTES HOSPITAL BR[facility]ON - 3 3 [facility] OUTPATIEN INC T OFFICE 50251 [facility] PHILIP OUTPATIEN 3 3 [facility] 30 HOSPITAL MINUTES P OFFICE 51336 [place] MUSTAPHA OUTPATIEN 3 3 [facility] T VISIT INTERNAL 15 MEDI MINUTES OFFICE 65717 [place] MCKEMIE OUTPATIEN 3 3 [facility] PETR T VISIT INTERNAL 15 MED MINUTES HOSPITAL BR[facility]ON - 3 3 [facility] INPATIENT INC OFFICE 94024 [place] MUSTAPHA OUTPATIEN 3 3 [facility] T VISIT INTERNAL 15 MEDI MINUTES HOSPITAL BR[facility]ON - 3 3 [facility] OUTPATIEN INC T EMERGENCY 38046 MARLO DHALIWAL 2 2 EMERGENCY [facility] SERVICES T VISIT HIGH/URGE NT SEVERITY HOSPITAL [facility] - 2 2 [facility] OUTPATIEN INC HOSPITAL BRADNON - 2 2 [facility] OUTPATIEN INC T OFFICE 01960 [place] MCKEMIE OUTPATIEN 2 2 [place] JR HUMPHREYS T VISIT INTERNAL 15 MED MINUTES OFFICE 97713 [facility] BAZZI OUTPATIEN 2 2 [facility] VIS[facility] C[facility] 15 MINUTES OFFICE 07711 [facility] BAZZI OUTPATIEN 2 2 [facility] T VISIT E CENTER 15 MINUTES HOSPITAL CENTRAL - 2 2 [facility] OUTPATIEN HOSP T EMERGENCY 69720 [facility] DE[facility] 2 2 KAMAR DEIDRA VISIT EMERGENCY HIGH PHYS SEVERITY& THREAT FUN OFFICE 93404 [facility] BAZZI OUTPATIEN 2 2 [facility] T VISIT E CENTER 15 MINUTES OFFICE 45100 [facility] BAZZI OUTPATIEN 2 2 [facility] T VISIT E CENTER 15 MINUTES OFFICE 00856 [facility] BAZZI OUTPATIEN 2 2 [facility] T VISIT E CENTER 15 MINUTES OFFICE 98086 [facility] OUTPATIEN 2 2 L SURGIAL CATRACHITO T NEW 45 MINUTES ASSOCIATE OFFICE 70793 [facility] BAZZI OUTPATIEN 2 2 [facility]ALTH[facility] TAR T NEW 45 E CENTER MINUTES EMERGENCY 20108 [facility] 2 2 [facility] DEPARTMEN EMERGENCY T VISIT SERVI HIGH/URGE NT SEVERITY OFFICE 59204 C SOPHIE LYONS OUTPATIEN 2 2 ELOY GAMBOA T VISIT PSC 25 MINUTES OFFICE 49432 [place] MUST[place]HA OUTPATIEN 2 2 [facility] T VISIT INTERNAL 15 MEDI MINUTES HOSPITAL [facility] - 2 2 [facility] OUTPATIEN INC HOSPITAL [facility]ON - 2 2 [facility] OUTPATIEN INC T OFFICE 91524 [place] MCKEMIE OUTPATIEN 2 2 [facility] PETR T VISIT INTERNAL 15 MED MINUTES EMERGENCY 98180 UNIVERSIT DEPT 2 2 Y VISIT HOSPITAL HIGH SEVERITY& THREAT [facility] HOSPITAL UNIVERSIT - 2 2 Y OUTPATI HOSPITAL T EMERGENCY 09313 [facility] 2 2 [facility] DEPARTMEN INC T VISIT HIGH/URGE NT SEVERITY EMERGENCY 87646 MARLO FATIMA DEPT 2 2 EMERGENCY PETR VISIT SERVICES HIGH SEVERITY& THREAT [facility] HOSPITAL BRANDON - [address] [facility] OUTPATIEN [facility] T OFFICE 66770 [place] MCKEMIE OUTPATIEN 2 2 ZACKERY HUMPHREYS T VISIT INTERNAL 15 MED MINUTES HOSPITAL BRANDON - 2 2 [facility] OUTPATIEN [facility] T EMERGENCY 30384 BR[facility] [address] [facility] DEPARTMEN INC T VISIT HIGH/URGE NT SEVERITY EMERGENCY 96307 MARLO KESSLER DEPT 2 2 EMERGENCY SHANTHI VISIT SERVICES HIGH SEVERITY& THREAT [facility] BRANDON - [address] [facility] OUTPATIEN [facility] OFFICE 57267 [place] BESSON OUTPATIEN 2 2 [facility] VISIT INTERNAL 15 MED MINUTES EMERGENCY 90743 BR[facility] [address] [facility] DEPARTMEN [facility] T VISIT MODERATE SEVERITY EMERGENCY 89334 MARLO KESSLER 2 2 EMERGENCY [facility] DEPARTMEN SERVICES T VISIT HIGH/URGE NT SEVERITY HOSPITAL BRANDON - [address] [facility] OUTPATIEN [facility] OFFICE 59067 [place] MCKEMIE OUTPATIEN 2 2 ZACKERY HUMPHREYS T VISIT INTERNAL 15 MED MINUTES HOSPITAL BRANDON - [address] [facility] OUTPATIEN [facility] OFFICE 67026 [place] BESSON OUTPATIEN 2 2 [facility] VISIT INTERNAL 25 MED MINUTES OFFICE 28312 MARNI MARNI OUTPATIEN 2 2 LUIS ALFREDO LUIS ALFREDO T VISIT 25 MINUTES HOSPITAL [facility]ON - 2 2 [facility]PATIEN [facility] HOSPITAL BRANDON - 2 2 [facility] OUTPATIEN INC T EMERGENCY 91401 [facility] 2 2 [facility] DEPARTMEN INC T VISIT MODERATE SEVERITY HOSPITAL [facility] - 2 2 [facility] OUTPATIEN INC T OFFICE 46122 MARNI MARNI OUTPATIEN 2 2 LUIS ALFREDO LOBATO T NEW 45 MINUTES OFFICE 08823 [place] MUSTAPHA OUTPATIEN 2 2 [place] CECE T VISIT INTERNAL 15 MEDI MINUTES OFFICE 54041 [place] MUSTAPHA OUTPATIEN 2 2 [place] CECE T VISIT INTERNAL 15 MEDI MINUTES OFFICE 89854 [place] MUSTAPHA OUTPATIEN 2 2 [facility] CECE T VISIT INTERNAL 10 MEDI MINUTES EMERGENCY 15862 MARLO AKERS DEPT 2 2 EMERGENCY VISIT SERVICES HIGH SEVERITY& THREAT [facility] BRANDON - 2 2 [facility] OUTPATIEN INC T EMERGENCY 22269 [facility] [address] [facility] DEPARTMEN INC T VISIT HIGH/URGE NT SEVERITY OFFICE 13397 [place] MCKEMIE OUTPATIEN 2 2 [place] JR HUMPHREYS T VISIT INTERNAL 15 MED MINUTES OFFICE 91618 KENZIE ESPINO OUTPATIEN 2 2 LUCITA JAM T NEW 60 MINUTES OFFICE 58447 [place] BESSON OUTPATIEN 2 2 [place] CATRACHITO T VISIT INTERNAL 15 MED MINUTES HOSPITAL [facility] - 2 2 [facility] OUTPATIEN INC T EMERGENCY 70702 [facility] 2 2 [facility] DEPARTMEN INC T VISIT HIGH/URGE NT SEVERITY OFFICE 70431 [place] GAL THO OUTPATIEN 1 1 MEDICAL T NEW 30 SERV MINUTES FOUNDATIO OFFICE 76342 EAR, NOSE SHASHY OUTPATIEN 1 1 AND SOBEIDA T VISIT THROAT 25 SPECIAL MINUTES HOSPITAL [facility] - 1 1 [facility] OUTPATIEN INC T OFFICE 40579 EAR, NOSE SHASHY OUTPATIEN 1 1 AND SOBEIDA T NEW 30 THROAT MINUTES SPECIAL OFFICE 12076 [facility] OUTPATIEN 1 1 [facility] T VISIT INTERNAL 15 MED MINUTES HOSPITAL BRANDON - [address] [facility] BRANDON - [address] [facility] OUTPATIEN [facility] T EMERGENCY 45074 [facility] [address] [facility] T VISIT HIGH/URGE NT SEVERITY HOSPITAL BR[facility]ON - [address] [facility] OUTPATIEN [facility] HOSPITAL BRANDON - [address] [facility]PATIEN [facility] OFFICE 92147 ELLEN LIMON OUTPATIEN 1 1 [facility] T VISIT 10 MINUTES EMERGENCY 02945 [facility] [address] [facility] T VISIT LIMITED/M INOR PROB HOSPITAL BRANDON - [address] [facility] OUTPATIEN [facility] T EMERGENCY 80655 MARLO AKERS 1 1 EMERGENCY [facility] T VISIT HIGH/URGE NT SEVERITY HOSPITAL [facility] - [address] [facility] OUTPATIEN [facility] HOSPITAL BRANDON - [address] [facility]PATIEN [facility] OFFICE 25091 PAWSAT PAWSAT OUTPATIEN 1 1 Aug T NEW 30 MINUTES EMERGENCY 83540 MARLO KESSLER 1 1 EMERGENCY SHANTHI [facility] T VISIT HIGH/URGE NT SEVERITY HOSPITAL [facility] - 1 1 [facility] OUTPATIEN [facility] T EMERGENCY 44755 [facility] [address] [facility] T VISIT MODERATE SEVERITY HOSPITAL [facility] - 1 1 [facility] HOSPITAL BRANDON - 1 1 [facility] HOSPITAL BRANDON - 1 [address] [facility] HOSPITAL BR[facility]ON - 1 1 [facility] OUTPATIEN INC OFFICE 52195 [facility] OUTPATIEN 1 1 DEIDRA GAY [facility] 45 MINUTES OFFICE 30227 CARIN DEL ROSARIO OUTPATIEN 1 1 JANET GONZALES [facility] 45 MINUTES HOSPITAL [facility] - 1 1 [facility]PATI[facility] 1 1 [facility] 1 1 [facility] EMERGENCY [id number] MARLO JACKSON OSWALD 1 1 EMERGENCY DEPARTMEN SERVICES T VISIT HIGH/URGE NT SEVERITY EMERGENCY [id number] [facility] 1 1 [facility] DEPARTMEN [facility] T VISIT HIGH/URGE NT SEVERITY [facility] - 1 1 [facility] INC EMERGENCY 75602 MARLO JACKSON OSWALD DEPT 1 1 EMERGENCY VISIT SERVICES HIGH SEVERITY& THREAT [facility] - 1 1 [facility] 1 [facility] - 1 1 [facility] 1 [facility] OFFICE 48128 José LYONS OUTPATIEN 1 1 ELOY SIMEON 45 MD PSC [facility] - 1 1 [facility] T EMERGENCY 61041 BRANODN 0 0 [facility] DEPARTMEN INC T VISIT LOW/MODER SEVERITY [facility] T EMERGENCY 23228 MARLO KESSLER, 0 0 [facility]IT MODERATE ASSOCIATE SEVERITY S [facility] 0 [facility] 0 [facility] T EMERGENCY 86816 [facility] 0 0 [facility] DEPARTMEN INC T VISIT MODERATE SEVERITY EMERGENCY 62116 MARLO CORTÉS, 0 0 EMERGENCY [facility] DEPARTMEN SERVICES O T VISIT HIGH/URGE ASSOCIATE NT S SEVERITY EMERGENCY 10470 MARLO KESSLER, 0 0 EMERGENCY [facility] SERVICES T VISIT MODERATE ASSOCIATE SEVERITY S [facility] - 0 0 [facility] INC T EMERGENCY [id number] [facility] [address] [facility] DEPARTMEN INC T VISIT LOW/MODER SEVERITY [facility] - [address] [facility] OUTPATIEN INC T OFFICE [id number] [facility], OUTPATIEN 9 9 ZACKERY LAURIE A T VISIT INTERNAL 15 MED MINUTES [facility] - [address] [facility] OUTPATIEN INC T OFFICE 41162 [facility], OUTPATIEN 9 9 ZACKERY LAURIE A T VISIT INTERNAL 25 MED MINUTES OFFICE 64558 [facility] MCKEMIE OUTPATIEN 9 9 ZACKERY EDWARD, T VISIT INTERNAL KANNAN F 10 MED MINUTES OFFICE 35986 [facility], OUTPATIEN 9 9 ZACKERY LAURIE A T VISIT INTERNAL 15 MED MINUTES [facility] - [address] [facility] OUTPATIEN INC T EMERGENCY 29647 MARLO KESSLER, 9 9 [facility] HIGH/URGE ASSOCIATE NT S SEVERITY EMERGENCY 30281 [facility] 9 9 [facility] DEPARTMEN INC T VISIT MODERATE SEVERITY OFFICE 30963 LEANA DUEÑAS OUTPATIEN 9 9 CHELSY Headley T VISIT 15 MINUTES EMERGENCY 40601 MARLO KESSLER, 9 9 EMERGENCY [facility] DEPARTMEN SERVICES T VISIT MODERATE ASSOCIATE SEVERITY S EMERGENCY 65595 MARLO CORTÉS DEPT 9 9 EMERGENCY [facility] VISIT SERVICES O HIGH SEVERITY& ASSOCIATE THREAT S [facility] - 9 9 [facility] INC T EMERGENCY 43970 MARLO KESSLER, 9 9 [facility]IS[facility] HIGH/URGE ASSOCIATE NT S SEVERITY EMERGENCY 47284 [facility] 9 9 [facility] DEPARTMEN INC T VISIT MODERATE SEVERITY OFFICE 69500 LEANA DUEÑAS OUTPATIEN 9 9 CHELSY Headley T VISIT 15 MINUTES EMERGENCY 37483 [facility] 9 9 [facility] DEPARTMEN INC T VISIT HIGH/URGE NT SEVERITY [facility] - 9 9 [facility] OUT[facility] INC T EMERGENCY 17244 MARLO CORTÉS DEPT 9 9 EMERGENCY [facility] VISIT SERVICES O HIGH SEVERITY& ASSOCIATE THREAT S [facility] EMERGENCY 66217 MARLO CENTENO DEPT 9 9 EMERGENCY [facility] VISIT SERVICES HIGH SEVERITY& ASSOCIATE THREAT S [facility] EMERGENCY 78029 [facility]RIST 9 9 [facility] V[facility]IT INC HIGH SEVERITY& THREAT [facility] - 9 9 [facility] OUTPATIEN INC T OFFICE 44176 MARY HERNANDEZ OUTPATIEN 9 9 OSWALDO Franz T VISIT 10 MINUTES [facility] - 9 9 [facility] T [facility] - 9 9 [facility] T OFFICE 99368 MARY HERNANDEZ OUTPATIEN 9 9 OSWALDO Franz T VISIT 15 MINUTES OFFICE 41701 LEANA DUEÑAS OUTPATIEN 9 9 CHELSY Headley CHELSY Headley T VISIT 15 MINUTES OFFICE 73800 LEANA DUEÑAS OUTPATIEN 9 9 CHELSY Fang CHELSY Headley T VISIT 15 MINUTES EMERGENCY 10692 MARLO SHEA DEPT 9 9 EMERGENCY GISELLE R VISIT SERVICES HIGH SEVERITY& ASSOCIATE THREAT S [facility]ON - 9 9 [facility] OUTPATIEN INC T OFFICE 76242 LENAA DUEÑAS OUTPATIEN 9 9 CHELSY Headley T VISIT 15 MINUTES OFFICE 34301 LEANA DUEÑAS OUTPATIEN 9 9 CHELSY Headley T VISIT 15 MINUTES EMERGENCY 69781 MARLO CORTÉS 9 9 EMERGENCY [facility] DEPARTMEN SERVICES O T VISIT MODERATE ASSOCIATE SEVERITY S EMERGENCY 13130 [facility] 9 9 [facility] DEPARTMEN INC T VISIT LOW/MODER SEVERITY [facility] - 9 9 [facility] OUTPATIEN INC T OFFICE 52505 LEANA DUEÑAS OUTPATIEN 9 9 CHELSY VALENTINO W T VISIT 15 MINUTES HOSPITAL [facility] - 9 9 [facility] OUTPATIEN INC T OFFICE 58242 ART BARNARD 9 9 MT STONER T VISIT SERV 25 FOUNDATIO MINUTES EMERGENCY 94228 MARLO KESSLER DEPT 9 9 EMERGENCY JOSEPH S VISIT SERVICES HIGH SEVERITY& ASSOCIATE THREAT S FUN EMERGENCY 46451 [facility] 9 9 [facility] DEPARTMEN INC T VISIT HIGH/URGE NT SEVERITY [facility] - 9 9 [facility] OUTPATIEN INC T OFFICE 40073 LEANA DUEÑAS OUTPATIEN 9 9 CHELSY Headley T VISIT 15 MINUTES EMERGENCY 35800 MARLO VIDES, DEPT 9 9 EMERGENCY [facility] VISIT SERVICES ER R HIGH SEVERITY& ASSOCIATE THREAT S [facility] - 9 9 [facility] OUTPATIEN INC T EMERGENCY 52488 [facility] 9 9 [facility] DEPARTMEN INC T VISIT MODERATE SEVERITY OFFICE 41511 LEANA DUEÑAS OUTPATIEN 9 9 CHELSY Headley T VISIT 15 MINUTES HOSPITAL [facility] - 9 9 [facility] OUTPATIEN INC T EMERGENCY 81928 [facility] [address] [facility] DEPARTMEN INC T VISIT LOW/MODER SEVERITY OFFICE 11416 LEANA DUEÑAS OUTPATIEN 9 9 CHELSY Headley T VISIT 15 MINUTES OFFICE 14944 LEANA DUEÑAS OUTPATIEN 9 9 CHELSY Headley T VISIT 15 MINUTES OFFICE 56724 LEANA DUEÑAS OUTPATIEN 9 9 CHELSY Headley T VISIT 15 MINUTES OFFICE 76925 ART BARNARD 9 9 [facility] [place] T VISIT SERV 25 FOUNDATIO MINUTES OFFICE 41250 LEANA DUEÑAS OUTPATIEN 8 8 CHELSY Headley T VISIT 15 MINUTES OFFICE 16963 LEANA DUEÑAS OUTPATIEN 8 8 CHELSY Headley T VISIT 15 MINUTES EMERGENCY 91616 [facility] 8 8 [facility] DEPARTMEN INC T VISIT LIMITED/M INOR [facility] - 8 8 [facility] OUTPATIEN INC T OFFICE 71098 ART BARNARD 8 8 [facility] [place] T VISIT SERV 25 FOUNDATIO MINUTES OFFICE 36643 LEANA DUEÑAS OUTPATIEN 8 8 CHELSY Headley T VISIT 15 MINUTES OFFICE 06822 LEANA DUEÑAS OUTPATIEN 8 8 CHELSY Headley T VISIT 15 MINUTES HOSP[facility] - 8 8 [facility] OUTPATIEN INC T EMERGENCY 17425 [facility] 8 8 [facility] DEPARTMEN INC T VISIT HIGH/URGE NT SEVERITY EMERGENCY 42218 JENNIFER ROSARIO, 8 8 [facility] T VISIT ON MODERATE SEVERITY OFFICE 70159 LEANA DUEÑAS OUTPATIEN 8 8 CHELSY Headley T VISIT 15 MINUTES HOSPITAL [facility] - [address] [facility] OUTPATIEN INC T HOSPITAL [facility] - [address] [facility] OUTPATIEN INC T OFFICE 30079 SAMANTA ENGLAND OUTPATIEN 8 8 CHUCK WOODS T VISIT 25 MINUTES OFFICE 33142 MAO BARNARD 8 8 [facility] [place] ION SERV NEW/ESTAB FOUNDATIO PATIENT 60 MIN OFFICE 37964 LEANA DUEÑAS OUTPATIEN 8 8 CHELSY Headley T VISIT 15 MINUTES EMERGENCY 17426 [facility] [address] [facility] DEPARTMEN INC T VISIT LIMITED/M INOR PROB [facility] - 8 8 [facility]PAT[facility] T [facility] - 8 8 [facility] INC T OFFICE 54918 AIDAN BERMUDEZ CONSULTAT 8 8 JR CHEYANNE, PARUL Ortega NEW/ESTAB PATIENT 60 MIN EMERGENCY 94478 [facility] 8 8 [facility] DEPARTMEN INC T VISIT MODERATE SEVERITY [facility] - 8 8 [facility] OUTPATIEN INC T EMERGENCY 64461 JENNIFER MARLENE, 8 8 [facility] DEPARTMEN CORPORATI T VISIT ON HIGH/URGE NT SEVERITY OFFICE 49398 LEANA DUEÑAS OUTPATIEN 8 8 CHELSY Headley T VISIT 15 MINUTES EMERGENCY 03814 [facility] 8 8 [facility] DEPARTMEN INC T VISIT LIMITED/M INOR PROB [facility] - 8 8 [facility] OUTPATIEN INC T EMERGENCY 66073 RODRIGUEZ MILANA, 8 8 [facility] DEPARTMEN CORPORATI O T VISIT ON LOW/MODER SEVERITY EMERGENCY 34889 [facility] 8 8 [facility] DEPARTMEN INC T VISIT LOW/MODER SEVERITY [facility] - 8 8 [facility] OUTPATIEN INC T OFFICE 00501 LEANA DUEÑAS OUTPATIEN 8 8 CHELSY VALENTINO W T VISIT 15 MINUTES HOSPITAL [facility] - 8 8 [facility] T OFFICE 05346 LEANA DUEÑAS OUTPATIEN 8 8 CHELSY VALENTINO W T VISIT 15 MINUTES OFFICE 83609 ART LANDIN 8 8 KANNAN Franz T VISIT CARDIOLOG 40 Y MINUTES CONSULTAN T OFFICE 06461 LEANA DUEÑAS OUTPATIEN 8 8 CHELSY Headley T VISIT 15 MINUTES OFFICE 83944 LEANA DUEÑAS OUTPATIEN 8 8 CHELSY Headley T NEW 30 MINUTES INITIAL 21189 [facility] CARIASIV 8 8 [facility] BLANCO RIVAS PATIENT PLLC [id number] EMERGENCY 29000 [facility] 8 8 [facility] DEPARTMEN INC T VISIT HIGH/URGE NT SEVERITY [facility]OSP[facility] - 8 8 [facility] OUTPATIEN INC T OFFICE 99039 [place] MCKEMIE OUTPATIEN 8 8 [facility], VISIT [facility] - 8 8 [facility] OUTPATIEN INC [facility] - 8 8 [facility] OUTPATIEN INC T OFFICE 26668 [place] MCKEMIE OUTPATIEN 8 8 [facility], VISIT 5 [facility] MED OFFICE 07137 [place] MCKEMIE OUTPATIEN 8 8 [facility], VISIT [facility] 15 [facility] - 8 8 [facility] OUTPATIEN INC T EMERGENCY 32308 [place] 8 8 [facility] DEPARTMEN INC T VISIT LIMITED/M INOR PROB OFFICE 08855 [place] MCKEMIE OUTPATIEN 8 8 [facility], VISIT [facility] 15 [facility] - 8 8 [facility] OUTPATIEN INC T EMERGENCY 34642 [facility] KAPLAN DEPT 8 8 [facility] PROF SERV SEVERITY& THREAT [facility] - 8 8 [facility] OUTPATIEN INC T OFFICE 06727 SAMANTA ENGLAND, JAELAT 8 8 CHUCK TERAN NEW/ESTAB PATIENT 80 MIN OFFICE 75720 MAO AMEZQUITA 8 8 [facility] TER[facility] SERV NEW/ESTAB FOUNDATIO PATIENT 40 MIN
--- OUTSIDE RECORDS SUMMARY | 2017-04-15 17:50 | External Medical Summary Rpt | CCD ---
Author Author , LEOBARDO Organization [facility] Address Unknown Phone [email or web address] Care Team Providers Care Airport Driver Name Role Phone JARED-YANIQUE MOH, Unavailable Unavailable [...] PATHOLOGY Unavailable Unavailable SERVICES, [facility] Unavailable [facility], [facility] Unavailable Unavailable [facility], [facility] COTTO BRO, COTTO Unavailable [...] Unavailable [facility] Unavailable Unavailable SERVICE, [facility] Unavailable Unavailable SERVICE, [facility] BRIZUELA JAM, BRIZUELA JAM Unavailable Unavailable SOMERS LAR, SOMERS LAR Unavailable Unavailable C SOPHIE LYONS MD Unavailable Unavailable [facility], C SOPHIE LYONS MD [facility], [facility] Unavailable Unavailable [facility], Unavailable Unavailable [facility] CHIPPS TORO & Unavailable Unavailable DUBILIER, [...] COMMUN[facility] ANEST[facility] OF Unavailable Unavailable [facility], [facility] COOK KARLA, COOK KARLA Unavailable Unavailable CEDRICK JR PETR, CEDRICK Unavailable Unavailable JR PETR HOMER AYLA, Unavailable Unavailable HOMER AYLA HOMER, FREDO, Unavailable Unavailable HOMER, FREDO [facility], Unavailable Unavailable [facility] Unavailable Unavailable [facility]QUIP[facility], [facility] Unavailable Unavailable [facility], [facility] DAVIES MAT, DAVIES Unavailable Unavailable [facility] Unavailable Unavailable [facility], [facility] JANELLE, JANELLE Unavailable Unavailable [facility], [facility] ARVIZU DEIDRA, Unavailable Unavailable ARVIZU DEIDRA ARVIZU DEIDRA, Unavailable Unavailable ARVIZU DEIDRA GAFFNEY PJ, GAFFNEY PJ Unavailable Unavailable [facility] Unavailable Unavailable SPECIAL, [facility] Un[facility]available [place], [facility] GARO FERNANDEZ, Unavailable Unavailable GARO FERNANDEZ [facility] [...] DAYANA FOSTER JAM, FOSTER Unavailable Unavailable JAM FREGUSON JAM, FERGUSON Unavailable Unavailable JAM FRYMRA, FRYMAN [...] ERVIN RODRIGEZ, Unavailable Unavailable ERVIN DEL ROSARIO [facility] Unavailable Unavailable INC, [facility] Unavailable Unavailable HOSPITAL P, [facility] BARRY CARY HARVEY, Unavailable Unavailable BARRY RAMIREZ, VIJI RAMIREZ Unavailable Unavailable [facility], Unavailable Unavailable [facility], Unavailable Unavailable [facility] MARIANA GALEANA, Unavailable Unavailable MARIANA GALEANA [facility] Unavailable Unavailable CENTER, [facility] SHAKILA, HAYDEN SHAKILA Unavailable Unavailable [facility] ROB ZAMUDIO, Unavailable Unavailable ROB ZAMUDIO KEKELLEN Unavailable Unavailable JANET KEKELLEN GONZALES [facility] Unavailable Unavailable ERVIN WICK, Unavailable Unavailable ERVIN HOFF [facility] Unavailable Unavailable LLC, D, [facility], [facility] Unavailable Unavailable [facility], [facility] Unavailable Unavailable IMAGING ASS, [facility] POOL TOD, POOL TOD [...] INC. [facility] Unavailable Unavailable INTERNAL MED, [facility] Unavailable Unavailable [facility], [facility] M E D SUPPLIES, M E D Unavailable Unavailable SUPPLIES M E [facility] SUP[facility], M E D Unavailable Unavailable SUPPLIES SAL [facility], Unavailable Unavailable SAL [facility] Unavailable Unavailable SERVICES, [facility] MARNI LUIS ALFREDO, Unavailable Unavailable [...] Unavailable Unavailable [facility] Unavailable Unavailable EMERGENCY PHYS, [facility] GARCIA RAY, GARCIA Unavailable Unavailable RAY NATACHA PHI, NATACHA PHI Unavailable Unavailable NATACHA, NICOLE A, Unavailable Unavailable NATACHA, NICOLE A [facility] Unavailable Unavailable HOSPITALS, [facility], Unavailable Unavailable [facility], [facility] AND Unavailable Unavailable [facility], Unavailable Unavailable [facility] Kylee CORDERO, Unavailable Unavailable Kylee CORDERO [facility] Unavailable Unavailable [address][id number], [id number] FRANCISCO SINGH Unavailable Unavailable MARCELINO DEIDRA, MARCELINO Unavailable Unavailable DEIDRA [facility] Unavailable Unavailable CENTER, [facility] MIKE KAPLAN, Unavailable Unavailable MIKE KAPLAN [facility] Unavailable Unavailable [facility] Unavailable Unavailable OF [place], [facility] [place] [facility] [...] [facility] HYPERTENSIO INC N I2510 [place]D [place] 01-18-2017 [facility] CORONARY [facility] ARTERY W/O INC ANGINA PECTORIS R011 CARDIAC 01-18-2017 [facility]UR[facility]UR [facility] UNSPECIFIED INC E119 TYPE 2 01-09-2017 [facility] DIABETES [facility] MELLITUS INC WITHOUT COMPLICATIO NS I10 ESSENTIAL 01-09-2017 [facility] PRIMARY [facility] HYPERTENSIO INC N [id number] CONTUSION 01-09-2017 [facility] OTHER PART [facility] OF HEAD INC INITIAL ENCOUNTER [id number] SPRAIN 01-09-2017 [facility] UNSPECIFIED [facility] SITE RT INC KNEE INITIAL ENCNTR Z794 SOCK IRONER 01-09-2017 [facility] CURRENT USE [facility] OF INSULIN INC A79125 OTHER LONG 01-09-2017 [facility] TERM [facility] CURRENT INC DRUG THERAPY J449 CHRONIC 01-03-2017 [facility] OBSTRUCTIVE [facility] PULMONARY INC DISEASE UNS R55 SYNCOPE AND 01-03-2017 [facility] COLLAPSE [facility] INC U35182 PERSONAL 01-03-2017 [facility] HISTORY OF [facility] NICOTINE INC DEPENDENCE N3000 ACUTE 12-23-2016 [facility] CYSTITIS [facility] WITHOUT INC HEMATURIA R64838 PAIN IN 11-06-2016 [facility] RIGHT LEG [facility] INC P72931 PAIN IN 11-06-2016 [facility] LEFT LEG [facility] INC J3089 OTHER 10-31-2016 [facility] [place] [place] J310 CHRONIC 10-31-2016 [facility] RHINITIS [facility] [place] J4550 SEVERE 10-31-2016 [facility] PERSISTENT [facility] [place] UNCOMPLICAT ED B15376 ALL[facility] TO 10-31-2016 [facility] OTHER FOODS [facility] [place] 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 ATHY LUMB RGN M549 DORSALGIA 10-23-2016 [facility] UNSPECIFIED [facility] INC R300 DYSURIA 10-19-2016 [facility] INC E039 HYPOTHYROID 10-05-2016 [facility] ISM [facility] UNSPECIFIED INC M7702 MEDIAL 09-19-2016 [facility] EPICONDYLIT [facility] IS LEFT INC ELBOW J040 ACUTE 2016 [facility] LARYNGITIS PHYSICIAN GROUP [id number] SPONDYLOSIS 09-15-2016 [facility] MYELOPATH/[facility] HOSPITALS ADICULOPATH Y THOR RGN G53428 SPONDYLOSIS 09-15-2016 [facility] MYELOPATH/[facility] HOSPITALS ADICULPATHY LS RGN M546 PAIN IN 09-15-2016 [facility] J069 ACUTE UPPER 09-12-2016 [facility] RESPIRATORY INC INFECTION UNSPECIFIED L65060 PAIN IN 09-08-2016 [facility] LEFT ELBOW PHYSICIANS GROUP J40 BRONCHITIS 09-06-2016 [facility] NOT N EMERGENCY SPECIFIED PHYS ACUTE OR CHRONIC R05 COUGH 09-06-2016 [facility] [place] [facility] M542 CERVICALGIA 08-29-2016 [facility] R51 HEADACHE 08-29-2016 [facility] L0027HY CONTUSION 08-29-2016 [facility] OF SCALP PHYSICIANS, INITIAL PLLC ENCOUNTER H169PZU UNSPECIFIED 08-29-2016 [facility] INJURY OF MEDICAL NECK IMAGING ASS INITIAL ENCOUNTER [id number] UNSPECIFIED 08-29-2016 [facility] INITIAL SERVICE ENCOUNTER W43391 PRIMARY 08-22-2016 [facility] OSTEOARTHRI MEDICAL TIS LEFT IMAGING ASS ELBOW K8689 OTHER 08-15-2016 [facility] SPECIFIED PHYSICIANS, DISEASES OF PLLC PANCREAS R1084 GENERALIZED 08-15-2016 [facility] ABDOMINAL PHYSICIANS, PAIN PLLC R8299 OTHER 08-07-2016 [facility] ABNORMAL [facility] FINDINGS IN INC URINE H56533 MIGRAINE 08-04-2016 [facility] UNS PHYSICIANS, INTRACTABLE PLLC W/STATUS MIGRAINOSUS F56725 UNSPECIFIED 08-04-2016 [facility] WITH [facility]UTE [facility] EXACERBATIO N [id number] CONTUSION 08-04-2016 [facility] EYEBALL & PHYSICIANS, ORBITAL PLLC TISSUES RT EYE INIT F85831 ELEVATED 07-26-2016 [facility] WHITE BLOOD [facility] CELL COUNT HOSPITAL P UNSPECIFIED K529 NONINFECTIV 07-14-2016 [facility] E [facility] GASTROENTER INC ITIS & COLITIS UNS I509 HEART 07-12-2016 [facility] FAILURE [facility] UNSPECIFIED HOSPITAL P R0789 OTHER CHEST 07-12-2016 [facility] PAIN PHYSICIANS, PLLC I272 OTHER 07-05-2016 [facility] SECONDARY [facility] PULMONARY INC HYPERTENSIO N I5030 UNSPECIFIED 07-05-2016 [facility] DIASTOLIC [facility] CONGESTIVE INC HEART FAILURE I959 HYPOTENSION 07-05-2016 [facility] UNSPECIFIED INC E109 TYPE 1 07-04-2016 [facility] DIABETES [facility] MELLITUS HOSPITAL P WITHOUT COMPLICATIO NS I9589 OTHER 07-04-2016 [facility] HYPOTENSION PHYSICIANS, PLLC R400 SOMNOLENCE 07-04-2016 [facility] PHYSICIANS, PLLC G8929 OTHER 06-29-2016 [facility] CHRONIC [facility] PAIN INC M4807 SPINAL 06-29-2016 [facility] STENOSIS [facility] LUMBOSACRAL INC REGION R042 HEMOPTYSIS 06-28-2016 [facility] R918 OTHER 06-28-2016 [facility] NONSPECIFIC [facility] ABNORMAL INC FINDING OF LUNG FIELD Z85547 TYPE 2 06-21-2016 [facility] DIABETES [facility] MELLITUS INC W/HYPOGLYCE NIKOLAY W/O COMA M5432 SCIATICA 06-13-2016 [facility] LEFT SIDE PHYSICIANS, PLLC M5442 LUMBAGO 06-13-2016 [facility] WITH PHYSICIANS, SCIATICA [facility] LEFT SIDE X66144 TYPE 2 06-12-2016 [facility] MELLITUS MEDICAL WITH FOOT EQUIPME ULCER K22914 TYPE 2 06-12-2016 [facility] MELLITUS MEDICAL WITH OTHER EQUIPME SKIN ULCER G894 CHRONIC 06-12-2016 [facility] PAIN PHYSICIANS SYNDROME GROUP M4307 SPONDYLOLYS 06-12-2016 [facility] IS PHYSICIANS LUMBOSACRAL GROUP REGION B85752 PERSONAL 06-12-2016 [facility] HISTORY OF PHYSICIANS OTHER GROUP SPECIFIED CONDITIONS E876 HYPOKALEMIA 06-06-2016 [facility] PHYSICIANS, [facility] K5900 CONSTIPATIO 06-06-2016 [facility] N MEDICAL UNSPECIFIED IMAGING ASS N200 CALCULUS OF 06-06-2016 [facility] KIDNEY [facility] N390 URINARY 06-06-2016 [facility] TRACT PHYSICIANS, INFECTION [facility] SITE NOT SPECIFIED R531 WEAKNESS 06-06-2016 [facility] R634 ABNORMAL 06-06-2016 [facility] WEIGHT LOSS MEDICAL IM[facility]ING ASS J050 ACUTE 05-18-2016 [facility] OBSTRUCTIVE PHYSICIANS, LARYNGITIS [facility] CROUP L299 PRURITUS 05-18-2016 [facility] UNSPECIFIED PHYSICIANS, PLLC M5127 OTH 05-17-2016 [facility] [place] INTERVERTEB MEDICAL RAL DISC IMAGING ASS DISPLACEMEN T LS REGION M5136 OTH 05-17-2016 [facility] [place] 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 M545 LOW BACK 05-17-2016 [facility] [place] PAIN MEDICAL IMAGING ASS V94930 PAIN IN 05-13-2016 [facility] [place] RIGHT KNEE MEDICAL IMAGING ASS R2319EY CONTUSION 05-13-2016 [facility] OF RIGHT PHYSICIANS, KNEE PLLC INITIAL ENCOUNTER J07616 MIGRAINE 05-09-2016 [facility] W/O AURA PHYSICIANS, NOT INTRACT PLLC W/O STAT MIGRAIN L57982 PAIN IN 05-08-2016 [facility] RIGHT HIP [facility] INC B351 TINEA 04-13-2016 [place] UNGUIUM FOOT & ANKLE CE I7090 UNSPECIFIED 04-13-2016 [place] FOOT & ATHEROSCLER ANKLE CE OSIS E82920 PAIN IN 04-13-2016 [facility] UNSPECIFIED FOOT & LIMB ANKLE CE R0781 PLEURODYNIA 03-31-2016 [facility] R52 PAIN 03-31-2016 [facility] UNSPECIFIED AMBULANCE SERVICE F87078X CONTUSION 03-31-2016 [facility] UNS FRONT PHYSICIANS, WALL THORAX PLLC INITIAL ENCNTR M175GHN UNSPECIFIED 03-31-2016 [place] [place] INJURY OF MEDICAL THORAX IMAGING ASS INITIAL ENCOUNTER L0291 CUTANEOUS 03-20-2016 [facility] ABSCESS [facility] UNSPECIFIED INC L48182U CONTUSION 03-17-2016 [facility] LEFT FRONT PHYSICIANS, WALL THORAX PLLC INITIAL ENC Y86991A CONTUSION 03-17-2016 [facility] OF LEFT PHYSICIANS, SHOULDER PLLC INITIAL ENCOUNTER K74815 NON-PRSS 03-14-2016 [facility] CHRN ULCER PHYSICIANS SKIN OTH GROUP SITES UNS SEVERITY W93142 CELLULITIS 03-09-2016 [facility] OF [facility] ABDOMINAL INC WALL G3629MW OTHER 03-09-2016 [facility] COMPLICATIO PHYSICIANS, NS PROC NEC PLLC INITIAL ENCOUNTER E049 NONTOXIC 02-17-2016 [facility] GOITER PHYSICIANS UNSPECIFIED GROUP R1310 DYSPHAGIA 02-17-2016 [facility] UNSPECIFIED PHYSICIANS GROUP T47760N UNS FOREIGN 02-17-2016 [facility] BODY PHYSICIANS LARYNX CAUS GROUP OTH INJURY INIT ENC T92480 PAIN IN 02-10-2016 [facility] [place] LEFT HIP MEDICAL IMAGING ASS I592ZVE STRAIN 02-10-2016 [facility] MUSCLE FASC [facility] & TENDON INC NECK LEVL INIT ENC N0116TN CONTUSION 02-10-2016 [facility] OF LEFT HIP [facility]OS[facility] INITIAL INC ENCOUNTER K74199S UNSPECIFIED 02-10-2016 [place] [place] INJURY MEDICAL LEFT HIP IMAGING ASS INITIAL ENCOUNTER X66440 UNSPECIFIED 02-07-2016 [facility] KERATITIS LEFT EYE R221 LOCALIZED 02-05-2016 [facility] SWELLING [facility] MASS AND INC LUMP NECK R4702 DYSPHASIA 02-03-2016 [facility] INC R5383 OTHER 06-15-2015 [facility] FATIGUE [facility] INC U46584T CONTUSION 06-03-2015 [facility] RT FRONT PHYSICIANS, WALL THORAX PLLC INITIAL ENCOUNTER O37385 PAIN IN 05-29-2015 [place] [place] RIGHT WRIST MEDICAL IMAGING ASS V54307 PAIN IN 05-29-2015 [facility] [place] UNSPECIFIED MEDICAL HIP IMAGING ASS V35758 PAIN IN 05-29-2015 [facility] LEFT KNEE MEDICAL IMAGING ASS R7434OB CONTUSION 05-29-2015 [facility] [place] OF NOSE MEDICAL INITIAL IMAGING ASS ENCOUNTER A94255S UNSPECIFIED 05-29-2015 [facility] SPRAIN [facility] RIGHT WRIST INC INITIAL ENCOUNTER U8203RY SPRAIN 05-29-2015 [facility] UNSPECIFIED [facility] SITE LT INC KNEE INITIAL ENCNTR Z043 ENCOUNTER 05-29-2015 [facility] [place] EXAM & MEDICAL OBSERVATION IMAGING ASS FOLLOW OTH ACCIDENT E1121 TYPE 2 05-25-2015 [facility] DIABETES [facility] MELLITUS HOSPITAL P W/DIABETIC NEPHROPATHY I96 GANGRENE 05-25-2015 [facility] NOT ANESTH OF ELSEWHERE THE BLUE CLASSIFIED L78192 NON-PRSS 05-25-2015 [facility] TORO & OTH PART RT DUBILIER FT W/UNS SEVERITY Y64944 OTHER ACUTE 05-25-2015 [facility] OSTEOM[facility]ELIT HOSPITAL P IS RIGHT ANKLE AND FOOT Z9111 PATIENTS 05-25-2015 [facility] WITH [facility]OSP[facility] P DIETARY REGIMEN E20261 NON-PRSS 05-24-2015 [facility] MEDICAL OTH PART LT IMAGING ASS FOOT UNS SEVERITY M2011 HALLUX 05-24-2015 [facility] VALGUS PHYSICIANS, ACQUIRED [facility] RIGHT FOOT 7231 CERVICALGIA 03-06-2015 [facility] 7802 SYNCOPE AND 03-06-2015 [facility] COLLAPSE MEDICAL IMAGING ASS 7840 HEADACHE 03-06-2015 [facility] 20031 INJURY OF 03-06-2015 [facility] [place] FACE AND MEDICAL NECK OTHER IMAGING ASS AND UNSPECIFIED 81264 ACUTE PAIN 03-05-2015 [facility] DUE TO AMBULANCE TRAUMA SERVICE 19272 PAIN IN 03-05-2015 [facility] [place] JOINT MEDICAL PELVIC IMAGING ASS REGION AND THIGH 8470 NECK SPRAIN 03-05-2015 [facility] AND STRAIN PHYSICIANS, PLLC 920 CONTUSION 03-05-2015 [facility] OF FACE PHYSICIANS, SCALP AND PLLC NECK EXCEPT EYE E8889 UNSPECIFIED 03-05-2015 [facility] 7881 DYSURIA 02-24-2015 [place] [address] DIAB W/O 02-09-2015 [facility] COMP TYPE I HOME [JUV] NOT MEDICAL STATED EQUIPME UNCNTRL 09346 OBSTRUCTIVE 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 EQUIPME 19321 EXTRINSIC 02-09-2015 [facility]MA, HOME UNSPECIFIED MEDICAL EQUIPME 52855 DIAB W/OTH 02-03-2015 [facility] MANIFESTS [facility] TYPE I INC [JUV] NOT UNCNTRL 4019 UNSPECIFIED 02-03-2015 [facility] ESSENTIAL [facility] HYPERTENSIO INC N 4139 OTHER AND 02-03-2015 [facility] UNSPECIFIED [facility] ANGINA INC PECTORIS 496 CHRONIC 02-03-2015 [facility] AIRWAY [facility] OBSTRUCTION INC NEC 04593 OTHER 02-03-2015 [facility] MALAISE AND [facility] FATIGUE INC V5867 LONG-TERM 02-03-2015 [facility] USE OF [facility] INSULIN INC 7906 OTHER 02-01-2015 [facility] ABNORMAL [facility] BLOOD INC CHEMISTRY V7389 SPECIAL 02-01-2015 [facility] SCREENING [facility] EXAMINATION INC OTH SPEC VIRAL DZ 7295 PAIN IN 01-06-2015 [facility] [place] SOFT MEDICAL TISSUES OF IMAGING ASS LIMB 59283 SWELLING OF 01-06-2015 [facility] LIMB MEDICAL IMAGING ASS 7823 EDEMA 01-06-2015 [facility] INC 00354 CHEST PAIN 12-31-2014 [facility] [place] UNSPECIFIED MEDICAL IMAGING ASS 22380 PAIN IN 12-17-2014 [facility] [place] JOINT, MEDICAL SHOULDER IMAGING ASS REGION 68807 PAIN IN 12-17-2014 [place] JOINT, MEDICAL FOREARM IMAGING ASS 73626 PAIN IN 12-17-2014 [place] [place] JOINT, MEDICAL LOWER LEG IMAGING ASS 8408 SPRAIN&STRA 12-17-2014 [facility] IN OTH SPEC [facility] SITES INC SHOULDER&UP PER ARM 8409 SPRAIN&STRA 12-17-2014 [facility] IN UNSPEC PHYSICIANS, SITE PLLC SHOULDER&UP PER ARM 27627 SPRAIN AND 12-17-2014 [facility] STRAIN OF [facility] UNSPECIFIED INC SITE OF WRIST 8449 SPRAIN&STRA 12-17-2014 [facility] IN OF [facility] UNSPECIFIED INC SITE OF KNEE&LEG 9221 CONTUSION 12-17-2014 [facility] OF CHEST [facility] WALL INC 26199 OTHER 12-17-2014 [place] INJURY OF MEDICAL CHEST WALL IMAGING ASS 29171 OTHER 12-17-2014 [place] INJURY OF MEDICAL OTHER SITES IMAGING ASS OF TRUNK 9592 INJURY 12-17-2014 [place] OTHER&UNSPE MEDICAL CIFIED IMAGING ASS SHOULDER&UP PER ARM 9593 INJURY 12-17-2014 [place] [place] OTHER&UNSPE MEDICAL CIFIED IMAGING ASS ELBOW FOREARM&WRI ST 9597 INJURY 12-17-2014 [place] OTHER&UNSPE MEDICAL CIFIED KNEE IMAGING ASS LEG ANKLE&FOOT V714 OBSERVATION 12-17-2014 [facility] FOLLOWING MEDICAL OTHER IMAGING ASS ACCIDENT 5718 OTHER 12-16-2014 [facility] CHRONIC SERV NONALCOHOLI [facility] C LIVER DISEASE 07092 ABDOMINAL 12-16-2014 [facility] PAIN RIGHT SERV UPPER [facility] QUADRANT 7892 SPLENOMEGAL 12-16-2014 [facility] Y SERV [facility] 2512 HYPOGLYCEMI 11-25-2014 [facility] A, [facility] UNSPECIFIED INC 35680 SHORTNESS 11-11-2014 [facility] OF BREATH SERV [facility] 71391 DIAB 10-23-2014 [facility] W/NEURO [facility] MANIFESTS INC TYPE II/UNS TYPE UNCNTRL 68131 UNSPECIFIED 10-23-2014 [facility] CELLULITIS [facility] AND INC ABSCESS OF TOE 31027 ULCER OF 10-23-2014 [facility] OTHER PART PATHOLOGY OF FOOT SERVICES 7224 DEGENERATIO 10-17-2014 [place] [place] N OF MEDICAL CERVICAL IMAGING ASS INTERVERTEB RAL DISC 12079 DIAB W/O 09-27-2014 [facility] COMP TYPE [facility] II/UNS NOT INC STATED UNCNTRL 2724 OTHER AND 09-27-2014 [facility] UNSPECIFIED [facility] INC HYPERLIPIDE NIKOLAY 68836 OBESITY, 09-27-2014 [facility] UNSPECIFIED [facility] INTERNAL MED 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 INC UNSPECIFIED 80837 ALTERED 09-27-2014 [facility] MENTAL [facility] STATUS INTERNAL MED 7862 COUGH 09-27-2014 [facility] 97752 POISONING 09-27-2014 [place] BY OPIUM , [facility] UNSPECIFIED INTERNAL MED E8502 ACCIDENTAL 09-27-[address] [facility] P ATED NARCOTICS 5180 PULMONARY 09-26-2014 [facility] [place] COLLAPSE MEDICAL IMAGING ASS 77320 FEVER 09-26-2014 [place] [place] UNSPECIFIED MEDICAL IMAGING ASS 7869 OTH 09-26-2014 [facility] [place] SYMPTOMS MEDICAL INVOLVING IMAGING ASS RESPIRATORY SYSTEM&CHES T V053 NEED PROPH 09-07-2014 [facility] VACC&INOCUL SERV AT AGAINST [facility]OUNDATION VIRAL HEP 33100 CONTUSION 09-03-2014 [facility] P 28320 CONTUSION 09-03-2014 [facility] P 10091 CLOSED 05-01-2014 [facility] FRACTURE PHYSICIANS METACARPAL GROUP BONE SITE UNSPECIFIED E8888 OTHER FALL 04-28-2014 [facility] N [facility]ERGENCY PHYS V1582 PERS HX 04-28-2014 [facility] TOBACCO USE [facility] PRESENTING INC [facility] 2104 BENIGN 04-27-2014 EAR, NOSE NEOPLASM AND THROAT OTHER&UNSPE SPECIAL CIFIED PARTS MOUTH 23014 DYSFUNCTION 04-27-2014 [facility], NOSE OF AND THROAT EUSTACHIAN SPECIAL TUBE 45031 OTOGENIC 04-27-2014 EAR, NOSE PAIN AND THROAT SPECIAL 47986 DYSPHAGIA 04-27-2014 E[facility], NOSE UNSPECIFIED AND THROAT SPECIAL 4770 ALLERGIC 04-13-2014 [facility] RH[facility]IS LUIS ALFREDO DUE TO POLLEN 4778 ALLERGIC 04-13-2014 [facility] ALFR[facility]O DUE TO OTHER ALLERGEN 4772 ALLERGIC 04-06-2014 [facility] RHINITIS LUIS ALFREDO DUE TO ANIMAL HAIR AND DANDER 14310 CHRONIC 04-06-2014 [facility] OBSTRUCTIVE LUIS ALFREDO ASTHMA UNSPECIFIED 20151 SENSORINEUR 04-03-2014 EAR, NOSE AL HEARING AND THROAT LOSS SPECIAL BILATERAL 2728 OTHER 03-19-2014 [facility] 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 49839 DIAB 03-16-2014 [facility] W/[facility]HUMU [facility] TYPE II/UNS NOT UNCNTRL 5939 UNSPECIFIED 03-03-2014 [facility] DISORDER N EMERGENCY OF KIDNEY PHYS AND URETER 5990 URINARY 03-03-2014 [facility] TRACT N EMERGENCY INFECTION PHYS SITE NOT SPECIFIED 06032 OTHER 01-28-2014 [facility] DISORDER OF STOMACH AND DUODENUM 5715 CIRRHOSIS 01-28-2014 [facility] WITHOUT MENTION OF ALCOHOL 5723 PORTAL 01-28-2014 [facility] N V7651 SPECIAL 01-28-2014 [facility] NE[facility]LAS[facility] COLON 2168 [...] GOITER, 12-23-2013 [facility] 33342 ABDOMINAL 12-15-2013 [facility] OTHER [facility] SPECIFIED INC SITE 24772 OTHER ACUTE 12-01-2013 [facility] 14976 ANEURYSM OF 12-01-2013 [place] [facility] ARTERY [facility] 5778 OTHER 12-01-2013 [place] [facility] DISEASE OF [facility] PANCREAS 23032 DIARRHEA 12-01-2013 [facility] 04434 ABDOMINAL 12-01-2013 [place] [facility] UNSPECIFIED [facility] SITE 7948 NONSPECIFIC 12-01-2013 [place] [facility] ABNORMAL [place] RESULTS [facility] LIVR FUNCTION STUDY V762 SCREENING 11-19-2013 [facility] MALIGNANT NEOPLASM OF THE CERVIX 83930 OTHER CHEST 11-08-2013 [facility] 10065 OTHER 11-08-2013 [place] NONSPECIFIC MEDICAL ABNORMAL IMAGING ASS FINDING OF LUNG FIELD 7242 LUMBAGO 09-23-2013 [facility] V571 OTHER 09-23-2013 [facility] THERAPY INC V5869 LONG-TERM 09-17-2013 [facility] (CURRENT) [facility] USE OF INC OTHER MEDICATIONS 7226 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 UNSPEC 08179 DEGEN 09-11-2013 [place] [facility] LUMBAR/LUMB SERV OSACRAL FOUNDAT[facility] INTERVERTEB RAL DISC 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 09-02-2013 [facility] P STRESS 02232 MORBID 08-25-2013 [facility]ESITY [facility] P 4409 GENERALIZED 08-25-2013 [place] [facility]ICAL UNSPECIFIED IMAGING ASS ATHEROSCLER OSIS 4471 STRICTURE 08-25-2013 [place] OF ARTERY [facility]ICAL [facility] 4830 PNEUMONIA 08-25-2013 [facility] P PNEUMONIAE 22864 SCOLIOSIS , 08-25-2013 [place] IDIOPATHIC [facility]ICAL IMAGING ASS V8541 BODY MASS 08-25-2013 [facility] [id number] [facility] P ADULT 4829 UNSPECIFIED 08-23-2013 [facility] PNEUMONIA SERVICES 20061 OTHER 08-23-2013 [place] DISEASES OF MEDICAL LUNG NOT IMAGING ASS ELSEWHERE CLASSIFIED 75548 DEGEN 08-23-2013 [place] THORACIC/TH MEDICAL ORACOLUMBAR IMAGING ASS INTERVERTEB RAL DISC 3540 CARPAL 08-20-2013 [facility] MITCH 7238 OTHER 08-20-2013 [facility]OM[facility]FFECT[facility] MITCH CERVICAL REGION 66881 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-2013 [place]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 40595 SPINAL STEN 08-18-2013 [place] LUMB REG MEDICAL W/O IMAGING ASS NEUROGENIC CLAUDICATIO N 8404 ROTATOR 07-26-2013 [facility] 5989 UNSPECIFIED 05-06-2013 [facility] STRICTURE [facility] P 04557 UNSPECIFIED 04-29-2013 [facility] URETHRITIS [facility] P 5952 OTHER 04-08-2013 [facility] CHRONIC [facility] CYSTITIS [facility] P 67395 DIAB W/O 04-03-2013 [facility] MENTION [facility] COMP TYPE I INC [JUV TYPE] UNCNTRL 09151 UNSPECIFIED 04-03-2013 [facility] CONSTIPATIO SERVICES N 88482 OTHER 03-31-2013 [facility] CHRONIC [facility] ALLERGIC CONJUNCTIVI TIS 62609 NUCLEAR 03-18-2013 [facility] 3669 UNSPECIFIED 03-18-2013 [facility] CATARACT [facility] INC V148 PERSONAL 03-18-2013 [facility] HISTORY [facility] ALLERGY OTH INC SPEC MEDICINAL AGTS 2689 UNSPECIFIED 02-25-2013 [facility] VITAMIN D [facility] DEFICIENCY 4919 UNSPECIFIED 02-04-2013 [facility] CHRONIC [facility] BRONCHITIS 76029 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 [facility] 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[facility] STATUS ASTHMATICUS 52921 MIGRAINE 01-30-2013 [facility] UNSP W/O VALLEY INTRACT W/O INTERNAL STATUS MED MIGRAINOSUS 16262 ABDOMINAL 01-23-2013 [facility], LEFT PHYSICIANS LOWER LA QUADRANT 460 ACUTE 01-22-2013 [facility] NASOPHARYNG VALLEY ITIS INTERNAL MEDI 97175 VISUAL 01-14-2013 [facility] 3688 OTHER 01-14-2013 [facility] SPECIFIED [facility] VISUAL INSTITUTE DISTURBANCE S 490 BRONCHITIS 12-28-2012 [facility] NOT VALLEY SPECIFIED INTERNAL ACUTE OR MED CHRONIC 5110 PLEURISY 12-20-2012 [facility] WITHOUT [facility] MENTION INC EFFUS/[place] [address] PAINFUL 12-20-2012 [facility] RESPIRATION VALLEY INTERNAL MED 71827 DIAB W/O 12-17-2012 M E D MENTION SUPPLIES COMP TYPE II/UNS TYPE UNCNTRL 25126 URINARY 11-27-2012 [facility] FREQUENCY [facility] INTERNAL MEDI 6279 UNSPECIFIED 11-13-2012 [facility] HOSP MENOPAUSAL& INC POSTMENOPAU HERBERT DISORDER 36660 PATELLAR 11-13-2012 [facility] TENDINITIS PHYSICIANS GROUP 61114 ACHILLES 11-13-2012 [facility] OR HOME TENDINITIS MEDICAL EQUIPME 95008 OTHER 11-13-2012 [facility] SYNOVITIS PHYSICIANS AND GROUP TENOSYNOVIT IS 7248 UNSPECIFIED 11-13-2012 [facility] DISORDER PHYSICIANS OF MUSCLE GROUP LIGAMENT&FA SCIA 98138 DISORDER OF 11-13-2012 [facility] CARTILAGE IMAGING ASS UNSPECIFIED V4981 ASYMPTOMATI 11-13-2012 [facility] [place] C MEDICAL POSTMENOPAU IMAGING ASS HERBERT STATUS 53950 OSTEOARTHRO 11-07-2012 [facility] UNSPEC MEDICAL WHETHER IMAGING ASS GEN/LOC LOWER LEG 4739 UNSPECIFIED 10-17-2012 [facility] SINUSITIS [facility] INTERNAL MEDI 6931 DERMATITIS 09-30-2012 [facility] DUE TO FOOD [facility] TAKEN INTERNALLY V727 DIAGNOSTIC 09-30-2012 [facility] SKIN AND [facility] SENSITIZATI ON TESTS 55565 URGE 08-29-2012 [facility] P 2449 UNSPECIFIED 08-28-2012 [facility] HYPOTHYROID INTERNAL ISM MEDI 14663 OTHER 08-23-2012 [facility] [place] SPECIFIED MEDICAL DISORDERS IMAGING ASS OF BLADDER V7612 OTHER 08-23-2012 [facility] [place] SCREENING MEDICAL MAMMOGRAM IMAGING ASS 5932 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 [facility] [place]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 7533 OTHER 08-09-2012 [facility] [place] 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 0419 BACTERIAL 08-08-2012 [facility] INFECTION [facility] UNSPECIFIED INTERNAL CCE & UNS MED SITE 15694 DEHYDRATION 08-08-2012 [facility] INTERNAL MED V7231 ROUTINE 08-05-2012 [facility]AM[facility]ATION SONIA 4720 CHRONIC 08-02-2012 [facility] RHINITIS VALLEY INTERNAL MEDI 50920 MASTODYNIA 08-02-2012 [facility] INTERNAL MEDI 4011 ESSENTIAL 07-09-2012 [facility] HYPERTENSIO P[facility] N, BENIGN 7964 OTHER 07-05-2012 [facility] CLINICAL FINDING 63823 COR 07-01-2012 [facility]THEROSLERO [facility] UNSPEC TYPE VESSEL [place]/ELSA T 62793 UNSPECIFIED 06-19-2012 [facility] VIRAL EMERG[facility]Y INFECTION SERVICES IN CCE & UNS SITE 48656 CONTUSION 06-14-2012 [facility] INC 9233 CONTUSION 06-14-2012 [facility] OF [facility] INC 07984 CONTUSION 06-14-2012 [facility] INC 9599 INJURY 06-14-2012 [facility] [place] AND MEDICAL UNSPECIFIED IMAGING ASS UNSPECIFIED SITE 4659 ACUTE URIS 06-05-2012 [facility] UNSPECIFIED CENTER SITE 8489 UNSPECIFIED 06-05-2012 [facility] SPRAIN AND CENTER STRAIN V8542 BODY MASS 05-23-2012 [facility] 45.0-49.9 CENTER ADULT 85314 ATROPHIC 05-20-2012 [facility] GASTRITIS SURGIAL WITHOUT ASSOCIATE MENTION OF HEMORRHAGE 74226 NAUSEA WITH 05-20-2012 [facility] VOMITING SURGIAL ASSOCIATE V1279 PERSONAL 05-20-2012 [facility] HISTORY OTH PHYS SURG DISEASES CTR DIGESTIVE DISEASE 4660 ACUTE 05-05-2012 [facility] BR[facility] EMERGENCY PHYS 24710 ASTHMA, 05-05-2012 [facility] UNSPECIFIED N EMERGENCY , PHYS UNSPECIFIED STATUS 1129 CANDIDIASIS 05-03-2012 [facility] UNSPECIFIED CENTER SITE 4619 ACUTE 05-03-2012 [facility] SINUSITIS, HEALTHCARE UNSPECIFIED CENTER V0481 NEED 04-17-2012 [facility] PROPHYLACTI [facility] C CENTER VACCINATION &INOCULATIO N FLU 96758 ESOPHAGEAL 04-16-2012 [facility] REFLUX SURGIAL ASSOCIATE 5559 REGIONAL 04-16-2012 [facility] ENTERITIS SURGIAL OF ASSOCIATE UNSPECIFIED SITE 64814 POLYURIA 03-29-2012 [facility] [employer] 21384 UNSPECIFIED 03-18-2012 [facility] VAGINITIS PSC AND VULVOVAGINI TIS 6235 LEUKORRHEA 03-18-2012 [facility] NOT PSC SPECIFIED INFECTIVE 6248 OTH SPEC 03-17-2012 [facility]PAT[facility] NONINFLAMMA CARE, PLLC TORY DISORDER VULVA&PERIN EUM 26589 LOSS OF 02-20-2012 C SOPHIE WEIGHT ELOY SANCHEZ PSC 19645 UNSPECIFIED 02-14-2012 [facility] ARTHROPATHY INTERNAL MULTIPLE MEDI SITES 16162 ABDOMINAL 02-14-2012 [facility] PAIN, VALLEY GENERALIZED INTERNAL MEDI V741 SCREENING 02-14-2012 [facility] EXAMINATION VALLEY FOR INTERNAL PULMONARY MEDI TUBERCULOSI S 98404 ABDOMINAL 02-07-2012 [facility] PAIN, LEFT [facility] UPPER INC QUADRANT 83667 VASCULAR 01-06-2012 [facility] ES OF CONJUNCTIVA 22693 SWELLING OR 01-06-2012 [facility] 40432 REDNESS [place] 01-06-2012 [facility] 74440 OTHER 01-06-2012 [place] MEDICAL DISEASES OF SERV NASAL FOUNDATIO CAVITY AND SINUSES 0539 HERPES 12-14-2011 [facility] ZOSTER VAL[facility] WITHOUT INTERNAL MENTION OF MED COMPLICATIO N 7891 HEPATOMEGAL 12-07-2011 [facility] Y [facility] ASS 33941 PAIN IN 11-11-2011 [facility] JOINT, VALLEY ANKLE AND INTERNAL FOOT MED 43721 TRANSIENT 11-10-2011 [facility] ARTHROPATHY [facility] ANKLE AND INC FOOT 6826 CELLULITIS 10-19-2011 [facility] AND ABSCESS VALLEY OF LEG INTERNAL EXCEPT FOOT MED 4780 HYPERTROPHY 10-12-2011 [facility] OF NASAL [facility] TURBINATES 9164 HIP THI 10-03-2011 [facility] LEG&ANK VALLEY INSECT BITE INTERNAL MED NONVENOMOUS W/O INF E9064 BITE OF 10-03-2011 [facility] NONVENOMOUS VALLEY ARTHROPOD INTERNAL MED 07248 TRANSIENT 09-25-2011 [facility] VISUAL LOSS [facility] INC 07334 SCOTOMA 09-25-2011 [facility] INVOLVING [facility] CENTRAL INC AREA IN VISUAL FIELD 95132 DISORDERS 09-25-2011 [facility] VISUAL [facility] CORTEX INC ASSOCIATED W/NEOPLASMS 7842 SWELLING 09-25-2011 [facility] MASS OR MEDICAL LUMP IN IMAGING ASS HEAD AND NECK 58714 BORDERLINE 09-15-2011 [facility] GLAUC OPEN JAM ANGLE BL FINDINGS LOW RSK 90479 CHRONIC 09-07-2011 [facility] OBSTRUCTIVE [facility] 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EXACERBATIO N 17898 OBSTRUCTIVE 08-30-2011 [facility] CHRONIC VALLEY BRONCHITIS INTERNAL WITH MED EXACERBATIO N 4293 CARDIOMEGAL 08-17-2011 [facility] Y [facility] IM[facility] ASS 10784 CHRONIC 08-09-2011 [facility] TENSION JAM TYPE HEADACHE 18165 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-2011 [facility] 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 18535 DIAB 06-25-2011 [facility] W/RENAL [facility] MANIFESTS INC TYPE I [JUV TYPE] UNCNTRL 29959 OBST 06-25-2011 [facility] CHRONIC [facility] BRONCHITIS INC W/ACUTE BRONCHITIS 36059 NAUSEA 06-25-2011 [facility] EMER[facility] 7841 THROAT PAIN 06-06-2011 [place] [facility] SERV [facility] 19777 OTHER 05-25-2011 [facility] SYMPTOMS [facility] INVOLVING INC HEAD AND NECK 4721 CHRONIC 05-15-2011 E[facility], NOSE PHARYNGITIS AND THROAT SPECIAL 462 ACUTE 05-09-2011 [facility] PHARYNGITIS [facility] INTERNAL MED 13596 UNSPECIFIED 04-12-2011 [facility] PH[facility]ICIANS ARTHROPATHY LA ANKLE AND FOOT 6989 UNSPECIFIED 03-28-2011 [facility] PRURITIC [facility] DISORDER INC 6929 CONTACT 03-27-2011 DERMATOLOGY DERMATITIS& OTHER CONSULTANTS ECZEMA DUE PSC UNSPEC CAUSE 11089 WHEEZING 03-20-2011 [facility] 7391 NONALLOPATH 03-08-2011 KEKELLEN JANET IC LESION OF CERVICAL REGION NEC 4548 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 SERVICES EXTREMITIES W/OTH COMPS 7827 SPONTANEOUS 02-23-2011 [facility] ECCHYMOSES [facility] INC 87285 CONTUSION 02-23-2011 [facility] OF THIGH EMERGENCY SERVICES 4439 UNSPECIFIED 02-17-2011 [facility] PERIPHERAL MEDICAL VASCULAR IMAGING ASS DISEASE 1101 DERMATOPHYT 02-10-2011 [facility] MAR OSIS OF NAIL 27063 DIAB 02-10-2011 [facility] W/NEURO MANIFESTS TYPE II/UNS NOT UNCNTRL 98616 DIAB 02-10-2011 [facility] W/PERIPH CIRC D/O TYPE II/UNS NOT UNCNTRL 58696 ABDOMINAL 01-18-2011 [facility] PAIN RIGHT MEDICAL LOWER IMAGING ASS QUADRANT 83237 HYPERSOMNIA 12-27-2010 [facility] WITH SLEEP DEIDRA APNEA UNSPECIFIED 7210 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 87033 OTHER 10-26-2010 [facility] ALTERATION [facility] OF INC CONSCIOUSNE SS 9953 ALLERGY 09-13-2010 [facility] UNSPECIFIED AMBULANCE NOT SERVICE ELSEWHERE CLASSIFIED V1272 PERSONAL 08-25-2010 [facility] HISTORY OF [facility] COLONIC INC POLYPS 47603 BACKGROUND 07-28-2010 [facility] DIABETIC VISION RETINOPATHY 44936 UNSPECIFIED 07-27-2010 [facility] INFECTIVE [facility] OTITIS INC EXTERNA 72440 HYPOXEMIA 06-27-2010 [facility] 5589 OTH&UNSPEC 10-12-2009 [facility] NONINFECTIO EMERGENCY US SERVICES GASTROENTER ASSOCIATES ITIS&COLITI S 91379 PAPANICOLAO 04-16-2009 PATHOLOGY & U SMEAR OF CYTOLOGY VAGINA WITH LAB ASC-US 32758 ABDOMINAL 04-14-2009 [facility] PAIN, [facility] EPIGASTRIC INTERNAL MED 67188 ASTHMA 03-19-2009 [facility] UNSPECIFIED EMERGENCY WITH SERVICES EXACERBATIO ASSOCIATES N 7318 NONALLOPATH 03-17-2009 [place] IC LESION FAMILY OF LUMBAR CHIROPRACTI REGION NEC C 5999 UNSPECIFIED 03-09-2009 [facility], DISORDER CHELSY [place] OF URETHRA&URI NARY TRACT 59522 OSTEOARTHRO 03-09-2009 Mamta DUEÑAS INVLV MX CHELSY [place] SITES BUT NOT SPEC GEN 66885 OTHER 02-18-2009 [facility] EMERGENCY GLUCOSE SERVICES ASSOCIATES V5883 ENCOUNTER 01-25-2009 CARDIOLOGY FOR ASSOCIATES THERAPEUTIC OF DRUG CORINTH MONITORING 4580 ORTHOSTATIC 01-14-2009 [facility] AMBULANCE HYPOTENSION SERVICE 53723 ASPHYXIA 01-14-2009 [facility] 7336 TIETZES 12-16-2008 [facility] DISEASE [facility] INTERNAL MED 34164 STOMATITIS 12-04-2008 [facility] AND CHELSY [place] MUCOSITIS UNSPECIFIED 9778 POISONING 11-26-2008 [facility] OTHER SPEC EMERGENCY DRUGS&MEDIC SERVICES INAL ASSOCIATES SUBSTANCES 73502 UNSPECIFIED 10-30-2008 [facility] SITE OF CHELSY [place] ANKLE SPRAIN AND STRAIN E8498 OTHER 10-28-[address] [facility] [place] [address]IED [facility] OF IMAGING OCCURRENCE ASSOCIATES E8859 FALL FROM 10-28-2008 [facility] OTHER MEDICAL SLIPPING IMAGING TRIPPING OR ASSOCIATES STUMBLING 7873 FLATULENCE 10-21-2008 [place] MEDICAL ERUCTATION SERV AND GAS FOUNDATIO PAIN 95577 VOMITING 09-22-2008 [facility] ALONE EMERGENCY SERVICES ASSOCIATES 49315 VARIANTS 08-06-2008 [facility] MIGRAINE CHELSY [place] NEC INTRACT MIGRAINE W/O [place] 34444 UNS 07-24-2008 [facility] GASTRITIS&G CHELSY [place] ASTRODUODIT IS W/O MENTION HEMORR 96880 ABDOMINAL/P 05-25-2008 [facility] ELVIC [facility] [place] INC MASS/LUMP UNSPEC SITE 87321 NEPHROTIC 04-27-2008 [facility] SYND W/OTH [facility] PATHAL LES INC DZ CLASS ELSW 60939 OTHER SPEC 04-15-2008 [place] MEDICAL GASTRITIS SERV WITHOUT FOUNDATIO MENTION HEMORRHAGE 76547 ERYTHEMA 03-04-2008 [facility] DUE TO BURN [facility] OF INC ABDOMINAL WALL 42885 BLISTERS 03-04-2008 RODRIGUEZ W/EPIDERMAL [employer]ATIONAL LOSS [employer] BURN ABD WALL 15293 DERMATITIS 02-23-2008 [facility] DUE TO [facility] OTHER INC RADIATION 25827 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-2007 [facility] CARDIOLOGY OSIS [place] UPPER CUTTER OUT CORONARY ARTERY 11570 OTHER 12-18-2007 [facility] RESPIRATORY ABNORMALITI ES 7931 NONSPEC 12-18-2007 [facility] FIND RAD [facility] OTH EXAM HOSP BODY STRUCT LUNG FIELD 49313 NONSPECIFIC 12-18-2007 [facility] ABNORMAL [facility] ELECTROCARD HOSP IOGRAM V142 PERSONAL 12-18-2007 [facility] HISTORY OF [facility] ALLERGY TO HOSP SULFONAMIDE S 2443 OTHER 10-04-2007 [facility] ISM PROF SERV 2810 PERNICIOUS 09-20-2007 [facility] ANEMIA [facility] INTERNAL MED 7244 THORACIC/ANIL 09-17-2007 DANGELO HOFFOSACRBENJAMIN Huffman NEURITIS/RA DICULITIS UNSPEC 7246 DISORDERS 09-17-2007 KAV[facility] OF SACRUM ERVIN [place] 0340 STREPTOCOCC 09-12-2007 [facility] AL SORE VALLEY THROAT INTERNAL MED 4149 UNSPECIFIED 08-30-2007 [facility] CHRONIC [facility] ISCHEMIC INTERNAL HEART MED DISEASE 3569 UNSPEC [...] 20 AI AT 61 09 09 D WA E 0 PH CH 10 AR AE [...] 01 30 30 RI 79 GH Ac [place] 00 -0 -2 .0 TE 42 AN [...] 01 30 30 RI 79 GH Ac [place] 00 -0 -1 .0 TE 42 AN [...] ti IN 12 8- 0- 00 43 WA ve IR 17 20 20 AI E 66 09 09 D JR 30 0 PH 0 AR WI MG M LL #3 IA CA 93 M PS 8 F UL E BI 00 02 08 06 30 30 RI 77 AR Ac SO 37 -1 -2 .0 TE 04 NO ti [place] 80 2- 7- 00 86 LD ve [...] 20 AI LI 70 09 09 D WA N 5 PH CH 50 AR AE [...] 00 30 30 RI 79 GH Ac [place] 00 -0 -1 .0 TE 42 AN [...] -1 -3 .0 TE 04 NO ti [place] 80 2- 0- 00 86 LD ve [...] 80 1- 0- 00 15 LD ve WA 21 20 20 AI DE 61 09 [...] -1 -0 .0 TE 04 NO ti [place] 80 2- 2- 00 86 LD ve [...] 4- 2- 00 SI 15 ON ve [place] 02 20 20 DE ED 20 09 [...] -1 -0 .0 TE 04 NO ti [place] 80 2- 4- 00 86 LD ve [...] AR M D #3 W 93 8 [place] 37 05 05 00 28 28 RI [...] ti LI 91 8- 1- 00 90 WA ve N 83 20 20 AI E [...] AN RA 30 09 09 D TO WA 5 PH NI DE AR O M [...] 09 D RI TA 1 PH CH WA AR AR N- M D CA #3 W FF 93 8 50 -3 25 -4 0 CI 00 04 04 00 20 10 RI 77 AR Ac [place] 17 -1 -2 .0 TE 97 NO [...] -1 -2 .0 TE 04 NO ti [place] 80 2- 3- 00 86 LD ve [...] -1 -2 .0 TE 04 NO ti [place] 80 2- 6- 00 86 LD ve [...] ti LI 91 8- 2- 00 90 WA ve N 83 20 20 AI E 70 71 08 09 D JR -3 1 PH 0 AR WI 10 M LL 0 #3 IA UN 93 M IT 8 F /M L AL BI 00 02 02 00 30 30 RI 77 AR Ac SO 37 -1 -2 .0 TE 04 NO ti [place] 80 2- 6- 00 86 LD ve OL 52 20 20 AI OL 39 09 09 D RI 3 PH CH FU AR AR MA M D RA #3 W TE 93 5 8 MG TA B CI 00 02 02 00 20 10 RI 77 AR Ac [place] 17 -1 -2 .0 TE 04 NO [...] 09 D RI TA 1 PH CH WA AR AR N- M D CA #3 [...] ti LI 91 8- 0- 00 90 WA ve N 83 20 20 AI E [...] AN RA 30 09 09 D TO WA 5 PH NI DE AR O M [...] -0 -0 .0 TE 32 KE ti [place] 80 6- 1- 00 28 WA ve OL 52 20 20 AI E [...] #3 W 93 TA 8 BL ET [place] 00 09 01 01 40 20 RI [...] 00 60 30 RI 76 AR Ac [place] 09 -1 -1 .0 TE 18 NO [...] 34 2- 0- 00 11 LD ve [place] 59 20 20 AI ED 31 08 [...] ti LI 91 8- 0- 00 90 WA ve N 83 20 20 AI E 70 71 08 08 D JR -3 1 PH 0 AR WI 10 M LL 0 #3 IA UN 93 M IT 8 F /M L AL BI 00 03 11 02 30 30 RI 72 MC Ac SO 37 -0 -2 .0 TE 32 KE ti [place] 80 6- 0- 00 28 WA ve OL 52 20 20 AI E [...] 08 D RI TA 1 PH CH WA AR AR N- M D CA #3 W FF 93 8 50 -3 25 -4 0 CI 00 09 10 00 20 10 RI 75 AR Ac [place] 17 -2 -0 .0 TE 17 NO [...] MC 93 G 8 TA BL ET [place] 00 09 09 00 40 20 RI [...] W MG 93 8 TA BL ET [place] 37 09 09 00 28 28 RI [...] 34 4- 1- 00 10 LD ve [place] 59 20 20 AI ED 31 08 [...] ti LI 91 1- 1- 00 61 WA ve N 83 20 20 AI E [...] KE ti LI 91 8- 00 61 WA ve N 83 20 20 AI E [...] ti LI 91 1- 7- 00 61 WA ve N 83 20 20 AI E [...] 0 bl PH e AR MA CY [place] 00 06 07 00 40 10 RI [...] 82 5- 3- 00 76 Av ve [place] 07 20 20 AI ai [place] 20 [...] ti TH 81 4- 2- 00 59 WA ve YR 80 20 20 AI E [...] 34 9- 5- 00 01 LD ve [place] 59 20 20 AI ED 31 08 [...] -0 -0 .0 TE 32 t ti [place] 80 6- 8- 00 28 Av ve [...] 00 20 10 RI 72 No Ac [place] 17 -1 -2 .0 TE 89 t [...] -0 -0 .0 TE 32 t ti [place] 80 6- 7- 00 28 Av ve [...] 25 4- 6- 00 61 Av ve [place] 03 20 20 AI ai [place] 26 [...] Procedure DOS Code Location Performer Comment ECG 88261 [facility] ROUTINE 7 [facility] ECG INC INC W/LEAST 12 LDS TRCG ONLY W/O I&R THERAPEUT 50580 [facility] IC 7 [facility] INJECTION INC INC IV PUSH EACH NEW DRUG ECG 54914 [facility] ROUTINE 7 [facility] ECG INC INC W/LEAST 12 LDS TRCG ONLY W/O I&R ECG 82396 [facility] ROUTINE 7 [facility] ECG INC INC W/LEAST 12 LDS TRCG ONLY W/O I&R COLLECTIO 26176 [facility] N VENOUS 7 [facility] BLOOD INC INC VENIPUNCT URE BASIC 81774 [facility] METABOLIC 7 [facility] PANEL INC INC CALCIUM TOTAL ECHO 42591 [facility] TTHRC R-T 7 [facility] 2D INC INC W/WOM-MOD E COMPL SPEC&COLR D ECG 28670 [facility] ROUTINE 7 [facility] ECG INC INC W/LEAST 12 LDS TRCG ONLY W/O I&R CULTURE 39469 [facility] BACTERIAL 7 [facility] INC INC QUANTTATI VE COLONY COUNT URINE DRUG TEST 83305 [facility] PRSMV 7 [facility] QUAL DIR INC INC OPTICAL OBS PER DAY RADIOLOGI 95580 [facility] C 7 [facility] EXAMINATI INC INC ON KNEE 3 VIEWS URNLS DIP 13250 [facility]ON 7 [facility] STICK/TAB INC INC LET REAGENT AUTO MICROSCOP Y RADEX 82756 [facility] NASAL 7 [facility] BONES INC INC COMPLETE MINIMUM 3 VIEWS RADIOLOGI 17531 [facility] C 7 [facility] EXAMINATI INC INC ON PELVIS 1/2 VIEWS THERAPEUT 88213 [facility] IC 7 [facility] INJECTION [place] [address] [facility] INFUSION 7 [facility] THERAPY/P INC INC ROPHYLAXI S /DX 1ST TO 1 HR URNLS DIP 16707 [facility] 7 [facility] STICK/TAB INC INC LET REAGENT AUTO MICROSCOP Y RADIOLOGI 78484 [facility] C 7 [facility] EXAMINATI INC INC ON CHEST SINGLE VIEW FRONTAL COMPREHEN 93329 [facility] SIVE 7 [facility] METABOLIC INC INC PANEL CULTURE 03499 [facility] BACTERIAL 7 [facility] INC INC QUANTTATI VE COLONY COUNT URINE GLUC BLD 25767 [facility] GLUC MNTR 7 [facility] DEV INC [place] [address] [facility] TROPONIN 7 [facility] QUANTITAT INC INC ANNABELLA BLOOD 15565 [facility] COUNT 7 [facility] COMPLETE INC INC AUTO&AUTO DIFRNTL WBC CREATINE 25278 [facility] SULLIVAN KINASE MB 7 MEM [facility] COUNTY FRACTION INC HEALTH ONLY CENTER ECG 40349 [facility] ROUTINE 7 [facility] ECG INC INC W/LEAST 12 LDS TRCG ONLY W/O I&R RHYTHM 15683 [facility] ECG 1-3 7 [facility] LEADS INC INC TRACING ONLY W/O I&R CREATINE 00841 [facility] KINASE 7 [facility] [place] [address] [facility] LIPASE 7 [facility] INC INC BLOOD 27771 [facility] COUNT 7 [facility] COMPLETE INC INC AUTO&[place] [address] [facility] AMYLASE 7 [facility] INC INC CULTURE 23667 [facility] BACTERIAL 7 [facility] INC INC QUANTT[place] [address] [facility] TROPONIN 7 [facility] QUANTITAT INC INC ANNABELLA CULTURE 20166 [facility] BCT 7 [facility] ISOL&PRSM INC INC PTV ID ISOLATE EA URINE COMPREHEN 77916 [facility] SIVE 7 [facility] METABOLIC INC INC PANEL URNLS DIP 95447 [facility] 7 [facility] STICK/TAB INC INC LET REAGENT AUTO MICROSCOP Y RADEX ABD 29922 [facility] COMPL 7 [facility] AQT ABD INC INC W/S/E/D VIEWS 1 VIEW CH THERAPEUT 99093 [facility] IC 7 [facility] PROPHYLAC INC INC TIC/DX INJECTION SUBQ/IM SUSCEPTIB 02288 [facility] LTY STDY 7 [facility] ANTIMICRB INC INC IAL MICRO/AGA R DILUTJ ECG 85998 [facility] ROUTINE 7 [facility] ECG INC INC W/LEAST 12 LDS TRCG ONLY W/O I&R NITRIC 21751 [facility] OXIDE 7 [facility] GAS CO DETERMINA TION DEMO&/POLLY 53597 [facility] L OF PT 7 [facility] UTILIZ OF [facility] AERSL CO GEN/NEB/I NHLR/IP BRNCDILAT 37577 [facility] RSPSE 7 [facility] SPMTRY OF BELLE PRE&POST- CO BRNCDILAT ADMN PERCUTANE 59843 [facility]ICA OUS TESTS 7 [facility] W/ALLERGE CO ALVARADO EXTRACTS THERAPEUT 76009 [facility] IC 7 [facility] INJECTION INC INC IV PUSH EACH NEW DRUG RADIOLOGI 23016 [facility] C EXAM 7 [facility] CHEST 2 INC INC VIEWS FRONTAL&L ATERAL THER 36380 [facility] PROPH/DX 7 [facility] NJX IV INC INC PUSH SINGLE/1S T SBST/DRUG SUSCEPTIB 09353 [facility] LTY STDY 7 [facility] ANTIMICRB INC INC IAL MICRO/AGA R DILUTJ INJECTION J2405 [facility] 7 [facility] ONDANSETR INC INC ON HCL PER 1 MG THER 34577 [facility] PROPH/DX 7 [facility] NJX EA INC INC SEQL IV PUSH SBST/DRUG FAC URNLS DIP 58980 [facility] STICK/TAB INC INC LET REAGENT AUTO MICROSCOP Y COMPREHEN 89483 [facility] SIVE [facility] METABOLIC INC INC PANEL ECG 92238 [facility]OUTINE [facility] ECG INC INC W/LEAST 12 LDS TRCG ONLY W/O I&R RHYTHM 46555 [facility] ECG 1-3 [facility] LEADS INC INC TRACING ONLY W/O I&R CREATINE 49845 [facility] KINASE [facility] TOTAL INC INC CULTURE 26105 [facility] BCT [facility] ISOL&PRSM INC INC PTV ID ISOLATE EA URINE CULTURE 79068 [facility] BACTERIAL [facility] INC INC QUANTTATI VE COLONY COUNT URINE BLOOD 79733 [facility] COUNT [facility] COMPLETE INC INC AUTO&[place] [address] [facility] TROPONIN 7 [facility] QUANTITAT INC INC ANNABELLA CREATINE 66535 [facility] KINASE MB 7 [facility] FRACTION INC INC ONLY CULTURE 16564 [facility] BACTERIAL 7 [facility] INC INC [place] [address] [facility] FREE 7 [facility] [place] [address] [facility] THYROID 7 [facility] STIMULATI INC INC NG HORMONE TSH BLOOD 36051 [facility] COUNT 7 [facility] COMPLETE INC INC AUTO&[place] [address] [facility] THYROID 7 [facility] [place] [address] [facility] FREE [facility] [place] [address] [facility] TRIIODOTH 7 [facility] YRONINE INC INC T3 FREE COLLECTIO 14628 [facility] N VENOUS 7 [facility] BLOOD INC INC VENIPUNCT URE OCCUPATIO 50540 [facility] NAL [facility] THERAPY INC INC EVAL LOW COMPLEX 30 MINS APPL 58130 [facility] MODALITY 7 [facility] 1/> AREAS INC INC IONTOPHOR ESIS EA 15 MIN THERAPEUT 14482 [facility] IC PX 1/> 7 [facility] AREAS INC INC EACH 15 MIN [facility]ES [facility] [id number] [facility] ASSESS & MGMT PT HOSPITAL G0463 [facility]PATI[facility] T CLIN INC INC VISIT ASSESS & MGMT PT IAADIADOO 75601 [facility] STREPTOCO INC INC CCUS GROUP A IAADIADOO 33306 [facility] INFLUENZA INC INC INJ J0702 [facility] BETAMETHA 7 PHYSICIAN DELMAR S GROUP ACETATE & PHOSPHATE 3 MG RADIOLOGI 78955 [facility] [place] SCALF C EXAM 7 RADIOLOGY CHEST 2 VIEWS FRONTAL&[place] [address] [facility] [place] [facility] CERVICAL 7 MEDICAL SPINE W/O IMAGING CONTRAST ASS MATERIAL GROUND A0425 [facility] MILEAGE 7 AMBULANCE AMBULANCE PER SERVICE SERVICE STATUTE MILE AMBULANCE A0429 [facility] SERVICE 7 AMBULANCE AMBULANCE BLS [place] [address] [facility] [place] [facility] HEAD/BRAI 7 MEDICAL N W/O IMAGING CONTRAST ASS MATERIAL RADEX 19547 [place] [facility] ELBOW 7 MEDICAL COMPLETE IMAGING MINIMUM 3 ASS VIEWS LOCM Q9967 [facility] [phone] [facility] MG/ML INC INC IODINE CONCENTRA TION PER ML THERAPEUT 13928 [facility] IC [facility] INJECTION [place] [address] [facility] INFUSION 7 [facility] THERAPY/P INC INC ROPHYLAXI S /DX 1ST TO 1 HR SUSCEPTIB 84189 [facility] LTY STDY 7 [facility] ANTIMICRB INC INC IAL MICRO/[place] [address] [facility] ABDOMEN & 7 [facility] PELVIS INC INC W/CONTRAS T MATERIAL INJECTION J2405 [facility] ONDANSETR INC INC ON HCL PER 1 MG COMPREHEN 90908 [facility] SIVE [facility] METABOLIC INC INC PANEL URNLS DIP 37476 [facility] [facility] STICK/TAB INC INC [place] [address] [facility]YLASE [facility] INC INC BLOOD 33233 [facility] COUNT 7 [facility] COMPLETE INC INC AUTO&AUTO DIFRNTL WBC CULTURE 05820 [facility] BCT 7 [facility] ISOL&PRSM INC INC PTV ID ISOLATE EA URINE CULTURE 42174 [facility] BACTERIAL 7 [facility] INC INC [place] [address] [facility] LIPASE 7 [facility] INC INC CULTURE 44740 [facility] BACTERIAL 7 [facility] INC INC QUANTTATI VE COLONY COUNT URINE CULTURE 70909 [facility] BCT 7 [facility] ISOL&PRSM INC INC PTV ID ISOLATE EA URINE SUSCEPTIB 99189 [facility] LTY STDY 7 [facility] ANTIMICRB INC INC IAL MICRO/AGA R DILUTJ INJECTION J2405 [facility] ONDANSETR INC INC ON HCL PER 1 MG ALBUTEROL J7613 YOUR YOUR INHAL 7 PHARMACY PHARMACY NON-CP [facility] PROD THRU DME U DOSE 1 MG PHRM Q0513 YOUR YOUR DISPENSIN 7 PHARMACY PHARMACY G FEE [facility] INHALATIO N RX; PER 30 DAYS THERAPEUT 65092 [facility] IC [facility] PROPHYLAC INC INC TIC/DX INJECTION SUBQ/IM ADMN SET A7003 YOUR YOUR SM VOL 7 PHARMACY PHARMACY NONFILTR [facility] PNEUMAT NEBULIZR DISPBL LACTOFERR 15335 [facility] IN FECAL 7 [facility] QUALITATI INC INC VE IADNA-DNA 16543 [facility] /RNA GI [facility] PTHGN INC INC MULTIPLEX PROBE TQ 06-18 OVA&NOEL 45634 [facility] ITES 7 [facility] DIRECT INC INC SMEARS CONCENTRA TION & ID RADIOLOGI 03255 [facility] C EXAM 7 MEDICAL CHEST 2 IMAGING VIEWS ASS FRONTAL&L ATERAL ECG 45865 [facility] ROUTINE 7 [facility] ECG INC INC W/LEAST 12 LDS TRCG ONLY W/O I&R ECG 28568 [facility] ROUTINE 7 PHYSICIAN ECG S, PLLC W/LEAST 12 LDS I&R ONLY CREATINE 08489 [facility] KINASE 7 [facility] TOTAL INC INC E-STIM G0283 [facility] 1/> AREAS 7 [facility] OTH THAN INC INC WND CARE PART TX PLAN BLOOD 32050 [facility] COUNT 7 [facility] COMPLETE INC INC AUTO&[place] [address] [facility] TROPONIN 7 [facility] QUANTITAT INC INC ANNABELLA CREATINE 46068 [facility] KINASE MB 7 [facility] FRACTION INC INC ONLY COMPREHEN 66999 [facility] SIVE 7 [facility] METABOLIC INC INC PANEL APPLICATI 48925 [facility] ON 7 [facility] MODALITY INC INC 1/> AREAS HOT/COLD PACKS APPL 52784 [facility] MODALITY 7 [facility] 1/> AREAS INC INC ULTRASOUN D EA 15 MIN APPL 40423 [facility] MODALITY 7 [facility] 1/> AREAS INC INC ULTRASOUN D EA 15 MIN APPLICATI 97634 [facility] ON 7 [facility] MODALITY INC INC 1/> AREAS HOT/COLD PACKS E-STIM G0283 [facility] 1/> AREAS 7 [facility] OTH THAN INC INC WND CARE PART TX PLAN ECG 31418 [facility] ROUTINE 7 [facility] ECG INC INC W/LEAST 12 LDS TRCG ONLY W/O I&R ECG 85021 [facility] ROUTINE 7 [facility] ECG INC INC W/LEAST 12 LDS TRCG ONLY W/O I&R DRUG TEST G0480 [facility] DEFINITV [address] [facility] [address] [facility] [address] ID INC INC METH P DAY 1-7 DRUG CL CREATINE 80014 [facility] KINASE 7 [facility] TOTAL INC INC ECG 01927 [facility] ROUTINE 7 PHYSICIAN ECG S, PLLC W/LEAST 12 LDS I&R ONLY DRUG TEST G0481 [facility] DEFINITV [address] [facility] [address] [address] ID INC INC METH P DAY 8-14 DRUG CL CREATINE 10284 [facility] KINASE MB 7 [facility] [place] [address] [facility] FREE 7 [facility] [place] [address] [facility] THYROID 7 [facility] STIMULATI [place] [address] [facility] TROPONIN 7 [facility] QUANTITAT INC INC ANNABELLA BLOOD 52222 [facility] COUNT 7 [facility] COMPLETE INC INC AUTO&AUTO DIFRNTL WBC CULTURE 72175 [facility] BCT 7 [facility] ISOL&PRSM INC INC PTV ID ISOLATE EA URINE CULTURE 00507 [facility] BACTERIAL 7 [facility] INC INC QUANTTATI VE COLONY COUNT URINE COMPREHEN 54486 [facility] SIVE 7 [facility] METABOLIC INC INC PANEL URNLS DIP 73709 [facility] STICK/TAB INC INC LET REAGENT AUTO MICROSCOP Y BLOOD 32997 [facility] GASES ANY 7 [facility] INC INC COMBINATI ON PH PCO2 PO2 CO2 HCO3 DRUG TEST 35389 [facility] PRSMV 7 [facility] INSTRMNT INC INC CHEMISTRY ANALYZERS SUSCEPTIB 87917 [facility] LTY STDY 7 [facility] ANTIMICRB INC INC IAL MICRO/AGA R DILUTJ APPLICATI 81554 [facility] ON 7 [facility] MODALITY INC INC 1/> AREAS HOT/COLD PACKS APPL 29346 [facility] MODALITY 7 [facility] 1/> AREAS INC INC ULTRASOUN D EA 15 MIN E-STIM G0283 [facility] 1/> AREAS 7 [facility] OTH THAN INC INC WND CARE PART TX PLAN BLOOD 02847 [facility] COUNT 7 [facility] COMPLETE INC INC AUTO&AUTO DIFRNTL WBC E-STIM G0283 [facility]ON 1/> AREAS 7 [facility] OTH THAN INC INC WND CARE PART TX PLAN APPL 96536 [facility] MODALITY 7 [facility] 1/> AREAS INC INC ULTRASOUN D EA 15 MIN APPLICATI 28194 [facility] ON 7 [facility] MODALITY INC INC 1/> AREAS HOT/COLD PACKS PHYSICAL 40778 [facility] THERAPY 7 [facility] EVALUATIO INC INC N MOD COMPLEX [address] THORAX 29466 [facility] BURTON W/O 7 MEDICAL CONTRAST IMAGING MATERIAL ASS RADIOLOGI 48761 [facility] C EXAM 6 [facility] CHEST 2 INC INC VIEWS FRONTAL&[place] [address] [facility] THYROXINE 6 [facility] TOTAL INC INC COMPREHEN 36372 [facility] SIVE 6 [facility] METABOLIC INC INC PANEL COLLECTIO 84614 [facility] N VENOUS 6 [facility] BLOOD INC INC VENIPUNCT URE DRUG TST G0477 [facility] PRESUMP;C 6 [facility] PBL BEING INC INC READ DC OPT OBV ONLY BLOOD 40476 [facility] COUNT 6 [facility] COMPLETE INC INC AUTO&[place] [address] [facility] THYROID 6 [facility] STIMULATI INC INC NG HORMONE TSH GLUC BLD 82305 [facility] GLUC MNTR 6 [facility] DEV INC INC CLEARED FDA SPEC HOME USE THERAPEUT 07229 [facility] IC 6 [facility] PROPHYLAC INC INC TIC/DX INJECTION SUBQ/IM LANCETS A4259 CRIST[facility] AMARAL PER BOX 6 HOME HOME OF 100 MEDICAL MEDICAL EQUIPME EQUIPME BLD GLU A4253 CRISTIN AMARAL TEST/REAG 6 HOME HOME T [facility] BLD EQUIPME EQUIPME GLU MON-50 SBSQ 12578 [facility] 6 PHYSICIAN SHANTHI CARE/DAY S GROUP 15 MINUTES ECG 02691 BR[facility]ON CHOWDHURY JR ROUTINE 6 [facility] W/LEAST P 12 LDS I&R ONLY INITIAL 94200 [facility] 6 PHYSICIAN SHANTHI CARE/DAY S GROUP 50 MINUTES CRITICAL 12334 [facility] CARE 6 PHYSICIAN ILL/INJUR S, PLLC ED PATIENT INIT 30-74 MIN RADIOLOGI 79779 [facility] C 6 MEDICAL EXAMINATI IMAGING [place] [address] [facility] ABDOMEN & 6 MEDICAL PELVIS IMAGING W/O ASS CONTRAST MATERIAL RADIOLOGI 30608 [facility] C EXAM 6 MEDICAL ANITA CHEST 2 IMAGING VIEWS ASS FRONTAL&L ATERAL IAADI 95231 [facility] INFLUENZA 6 [facility] B VIRUS INC INC IAADI 41659 [facility] INFFLUENZ 6 [facility] [place] [address] [facility] STREPTOCO 6 [facility] CCUS INC INC GROUP A THERAPEUT 23710 [facility] IC 6 [facility] PROPHYLAC INC INC TIC/DX INJECTION SUBQ/IM SUSCEPTIB 19070 [facility] LTY STDY 6 [facility] ANTIMICRB INC INC IAL MICRO/AGA R DILUTJ COMPREHEN 39097 [facility] SIVE 6 [facility] METABOLIC INC INC PANEL URNLS DIP 66213 [facility] 6 [facility] STICK/TAB INC INC LET REAGENT AUTO MICROSCOP Y CUL BACT 95638 [facility] XCPT 6 [facility] URINE INC INC BLOOD/STO OL AEROBIC ISOL COLLECTIO 50494 [facility] N VENOUS 6 [facility] BLOOD INC INC VENIPUNCT URE CULTURE 86558 [facility] BCT 6 [facility] ISOL&PRSM INC INC PTV ID ISOLATE EA URINE CULTURE 23201 [facility] BACTERIAL 6 [facility] INC INC QUANTTATI VE COLONY COUNT URINE BLOOD 01001 [facility] COUNT 6 [facility] COMPLETE INC INC AUTO&AUTO DIFRNTL WBC MRI 50476 [facility] SPINAL 6 [facility] CANAL INC INC LUMBAR W/O CONTRAST MATERIAL 3D 71107 [facility] RENDERING 6 [facility] W/INTERP INC INC & POSTPROCE SS SUPERVISI ON RADIOLOGI 78655 [place] [address] MEDICAL ANITA EXAMINATI IMAGING ON KNEE 3 ASS VIEWS THERAPEUT 59773 [facility] IC 6 [facility] INJECTION INC INC IV PUSH EACH NEW DRUG THER 76744 [facility] PROPH/DX 6 [facility] NJX IV INC INC PUSH SINGLE/1S T SBST/DRUG PHYSICAL 11477 [facility] THERAPY 6 [facility] EVALUATIO INC INC N THERAPEUT 16347 [facility] IC PX 1/> 6 [facility] AREAS INC INC EACH 15 MIN EXERCISES APPLICATI 60624 [facility] ON 6 [facility] MEM [...] OF 100 MEDICAL MEDICAL EQUIPME EQUIPME DEBRIDEME 90005 [facility] NT NAIL 6 FOOT & ANY ANKLE CE METHOD 6/> POTASSIUM 42959 [facility] SERUM 6 [facility] PLASMA/WH INC INC OLE BLOOD COLLECTIO 31794 [facility] N VENOUS 6 [facility] BLOOD INC INC VENIPUNCT URE POTASSIUM 62216 [facility] SERUM 6 [facility] PLASMA/WH INC INC OLE BLOOD BLOOD 74706 [facility] COUNT 6 [facility] COMPLETE INC INC AUTO&AUTO DIFRNTL WBC COMPREHEN 20645 [facility] SIVE 6 [facility] METABOLIC INC INC PANEL RADEX 16454 [place] [place] [facility] ALL RIBS UNI 6 MEDICAL W/POSTERO IMAGING ANT CH ASS MINIMUM 3 VIEWS AMBULANCE A0429 [facility] SERVICE 6 AMBULANCE AMBULANCE BLS SERVICE SERVICE EMERGENCY TRANSPORT GROUND A0425 [facility] MILEAGE 6 AMBULANCE AMBULANCE PER SERVICE SERVICE STATUTE MILE COMPREHEN 38894 [facility] SIVE 6 [facility] METABOLIC INC INC PANEL COLLECTIO 56545 [facility] N VENOUS 6 [facility] BLOOD INC INC VENIPUNCT URE COLLECTIO 73077 [facility] N VENOUS 6 [facility] BLOOD INC INC VENIPUNCT URE BLOOD 14616 [facility] COUNT 6 [facility] COMPLETE INC INC AUTO&AUTO DIFRNTL WBC COMPREHEN 57953 [facility] SIVE 6 [facility] METABOLIC INC INC PANEL RADEX 91285 [facility] RIBS UNI 6 [facility] W/POSTERO INC INC ANT CH MINIMUM 3 VIEWS RADIOLOGI 17580 [facility] [place] ALL C EXAM 6 MEDICAL CHEST 2 IMAGING VIEWS ASS FRONTAL&L ATERAL RADEX 25569 [facility] 6 MEDICAL MEDICAL COMPLETE IMAGING IMAGING MINIMUM 2 ASS ASS VIEWS CULTURE 14085 [facility] BACTERIAL 6 [facility] BLOOD INC INC AEROBIC W/ID ISOLATES COMPREHEN 17651 [facility] SIVE 6 [facility] METABOLIC INC INC PANEL BLOOD 80149 [facility] COUNT 6 [facility] COMPLETE INC INC AUTO&[place] [address] [facility] LACTATE 6 [facility] INC INC COLLECTIO 58524 [facility] N VENOUS 6 [facility] BLOOD INC INC VENIPUNCT URE CUL BACT 51696 [facility] XCPT 6 [facility] URINE INC INC BLOOD/STO OL AEROBIC ISOL CUL BACT 13602 [facility] AEROBIC 6 [facility] ADDL INC INC METHS DEFINITIV E EA ISOL SUSCEPTIB 23701 [facility] LTY STDY 6 [facility] ANTIMICRB INC INC IAL MICRO/AGA R DILUTJ LANCETS A4259 [facility] AMARAL PER BOX 6 HOME HOME OF 100 MEDICAL MEDICAL EQUIPME EQUIPME BLD GLU A4253 C[facility]STIN AMARAL TEST/REAG 6 HOME HOME T [facility] HOME BLD EQUIPME EQUIPME GLU MON-50 CT SOFT 17186 [facility] TISSUE 6 [facility] NECK INC INC W/CONTRAS T MATERIAL RADEX 81461 [facility] ESOPHAGUS 6 [facility] INC INC LOCM Q9967 [facility] [phone] 6 [facility] MG/ML INC INC IODINE CONCENTRA TION PER ML RADEX 87263 [facility] SPINE 6 [facility] CERVICAL INC INC 4 OR 5 VIEWS RADEX HIP 79215 [facility] 6 [facility] UNILATERA INC INC L WITH PELVIS 2-3 VIEWS RADEX 98610 [facility] FLANNERY ALL SPINE 6 MEDICAL CERVICAL IMAGING 2 OR 3 ASS VIEWS RADEX HIP 08747 [facility] FLANNERY ALL 6 MEDICAL UNILATERA IMAGING L WITH ASS PELVIS 1 VIEW COMPREHEN 23822 [facility] SIVE 6 [facility] METABOLIC INC INC PANEL COLLECTIO 97700 [facility] N VENOUS 6 [facility] BLOOD INC INC VENIPUNCT URE BLOOD 55227 [facility] COUNT 6 [facility] COMPLETE INC INC AUTO&[place] [address] [facility] AMMONIA 6 [facility] INC INC BLOOD 32641 [facility] COUNT 6 [facility] COMPLETE INC INC AUTO&[place] [address] [facility] FREE 6 [facility] [place] [address] [facility] THYROID 6 [facility] STIMULAT[place] [address] [facility] UREA 6 [facility] NITROGEN INC INC QUANTITAT ANNABELLA COLLECTIO 09337 [facility] N VENOUS 6 [facility] BLOOD INC INC VENIPUNCT URE CREATININ 90920 [facility] E BLOOD 6 [facility] INC INC COLLECTIO 25954 [facility] N VENOUS 5 [facility] [place] [address] [facility] THYROID 5 [facility] STIMULATI INC INC NG HORMONE TSH BLOOD 63627 [facility] COUNT 5 [facility] COMPLETE INC INC AUTO&AUTO DIFRNTL WBC COMPREHEN 31621 [facility] SIVE 5 [facility] METABOLIC INC INC PANEL TX PROC G0238 [facility] IMPRV 5 [facility] RESP INC INC FUNCT NOT G0237 FCE-FCE 15MIN CT THORAX 30131 [facility] W/O 5 [facility] CONTRAST INC INC MATERIAL RADIOLOGI 43187 [facility] C EXAM 5 [facility] CHEST 2 INC INC VIEWS FRONTAL&L ATERAL PRESSURIZ 85797 [facility] ED/NONPRE 5 [facility] SSURIZED [place] [address] [facility] MAXILLOFA 5 [facility] CIAL W/O INC INC CONTRAST MATERIAL RADEX 15365 [facility] HAND 5 [facility] MINIMUM 3 INC INC VIEWS WRIST L3908 [facility] HAND 5 TECHNOLOG TECHNOLOG ORTHOSIS IES INC IES INC EXT CONTROL COCK-UP PREFAB RADEX 05516 [facility] WRIST 5 [facility] COMPLETE INC INC MINIMUM 3 VIEWS RADIOLOGI 06243 [facility] C 5 [facility] EXAMINATI INC INC ON PELVIS 1/2 VIEWS APPLICATI 76269 [facility] ON SHORT 5 [facility] ARM INC INC SPLINT FOREARM-H AND STATIC RADIOLOGI 17615 [facility] C 5 [facility] EXAMINATI INC INC ON KNEE 3 VIEWS RADEX 45154 [facility] RIBS UNI 5 [facility] W/POSTERO INC INC ANT CH MINIMUM 3 VIEWS FOR DIAB A5512 [facility] ONLY MX 5 MEDICAL MEDICAL DNSITY SUPPLY SUPPLY INSRT DIR [facility] FORMD PRFAB EA DIAB ONLY A5500 [facility] [place] FIT CSTM 5 MEDICAL MEDICAL PREP&SPL SUPPLY SUPPLY SHOE MX [facility] DNSITY INSRT ANES OPEN 67549 [facility] PROC 5 ANESTH BONES OF THE LOWER BLUE LEG/ANKLE /FOOT NOS ECG 26121 BRANDON CHOWDHURY JR ROUTINE 5 [facility] W/LEAST P 12 [place] [address] SURG 5 TORO & PATHOLOGY DUBILIER GROSS&SHANHTI ROSCOPIC EXAM DECALCIFI [address] CATION 5 TORO & PROCEDURE DUBILIER RADEX 97094 [facility] H[facility]ER FOOT 5 MEDICAL AYLA COMPLETE IMAGING [place] [address] [place] [address] [facility] HOMER CERVICAL 5 MEDICAL AYLA SPINE W/[place] [address] [facility] CORONEL HEAD/BRAI 5 MEDICAL AYLA N W/O IMAGING CONTRAST ASS MATERIAL AMB A0427 [facility] SERVICE 5 AMBULANCE AMBULANCE ALS SERVICE SERVICE EMERGENCY TRANSPORT LEVEL 1 GROUND A0425 [facility] MILEAGE 5 AMBULANCE AMBULANCE PER SERVICE SERVICE STATUTE MILE RADEX HIP 61286 [facility] CORONEL 5 MEDICAL AYLA UNILATERA IMAGING L ASS COMPLETE MINIMUM 2 VIEWS RADIOLOGI 52510 [facility] Kumar 5 MEDICAL AYLA EXAMINATI IMAGING ON PELVIS ASS 1/2 VIEWS CULTURE 70777 COMBINED COMBINED BACTERIAL 5 PHYSICIAN PHYSICIAN S LA S LA QUANTTATI VE COLONY COUNT URINE BLD GLU A4253 CRISTIN AMARAL TEST/REAG 5 HOME HOME T [facility] MEDICAL MEDICAL HOME BLD EQUIPME EQUIPME GLU MON-50 COMPREHEN 80145 [facility] SIVE 5 [facility] METABOLIC INC INC PANEL URNLS DIP 43511 [facility] 5 [facility] STICK/TAB INC INC LET REAGENT AUTO MICROSCOP Y CULTURE 16326 [facility] BACTERIAL 5 [facility] INC INC QUANTTATI VE COLONY COUNT URINE GLUC BLD 85531 [facility] GLUC MNTR 5 [facility] DEV INC INC CLEARED FDA SPEC HOME USE CULTURE 66168 [facility] BCT 5 [facility] ISOL&PRSM INC INC PTV ID ISOLATE EA URINE BLOOD 45727 [facility] COUNT 5 [facility] COMPLETE INC INC AUTO&AUTO DIFRNTL WBC COLLECTIO 00106 [facility] N VENOUS 5 [facility] BLOOD INC INC VENIPUNCT URE THER 24781 [facility] PROPH/DX 5 [facility] NJX IV INC INC PUSH SINGLE/1S T SBST/DRUG SUSCEPTIB 24009 [facility] LTY STDY 5 [facility] ANTIMICRB INC INC IAL MICRO/AGA R DILUTJ HEPATITIS 34065 [facility] C 5 [facility] [place] [address] [facility] HEPATITIS 5 [facility] B INC INC SURFACE ANTIGEN HEPATITIS 14023 [facility] A 5 [facility] ANTIBODY INC INC HAAB HEPATITIS 67926 [facility] Boyd CORE 5 [facility] ANTIBODY INC INC HBCAB TOTAL HEPATITIS 06387 [facility] Boyd SURF 5 [facility] ANTIBODY INC INC HBSAB COLLECTIO 53109 [facility] N VENOUS 5 [facility] BLOOD INC INC VENIPUNCT URE BLOOD 86267 [facility] COUNT 5 [facility] COMPLETE INC INC AUTO&AUTO DIFRNTL WBC COMPREHEN 09220 [facility] SIVE 5 [facility] METABOLIC INC INC PANEL DUP-SCAN 84700 [facility] ALL XTR VEINS 5 MEDICAL IMAGING UNILATERA ASS L/LIMITED STUDY INJECTION J2785 [facility] 5 [facility] REGADENOS INC INC ON 0.1 MG MYOCARDIA 58488 [place] PR[facility] ALL L SPECT 5 MEDICAL MULTIPLE IMAGING STUDIES ASS TECHNETIU A9500 [facility] M TC-99M 5 [facility] SESTAMIBI INC INC DX PER STUDY DOSE CV STRS 73793 [facility] WELLS TST 5 [facility] RX CONT P ECG I&R ONLY CV STRS 50327 [facility] TST 5 PHYSICIAN XERS&/OR S GROUP RX CONT ECG W/O I&R CV STRS 03328 [facility] TST 5 [facility] XERS&/OR INC INC RX CONT ECG TRCG ONLY AMBULANCE A0429 [facility] SERVICE 5 AMBULANCE AMBULANCE BLS SERVICE SERVICE EMERGENCY TRANSPORT GROUND A0425 [facility]ANCE AM[facility]UL[facility] PER SERVICE SERVICE STATUTE MILE RADIOLOGI 58381 [place] [place] [facility] ALL C 5 MEDICAL EXAMINATI IMAGING ON CHEST ASS SINGLE VIEW FRONTAL RADEX 11990 [facility] RIBS UNI 5 [facility] W/POSTERO INC INC ANT CH MINIMUM 3 VIEWS RADIOLOGI 93912 [facility] FLANNERY ALL C 5 MEDICAL EXAMINATI IMAGING ON KNEE 3 ASS VIEWS RADIOLOGI 23922 [facility] ALL C 5 MEDICAL EXAMINATI IMAGING ON PELVIS ASS 1/2 VIEWS RADEX 82109 [facility] FL[facility] ALL SHOULDER 5 MEDICAL COMPLETE IMAGING MINIMUM 2 ASS VIEWS RADEX 65382 [facility] ALL WRIST 5 MEDICAL COMPLETE IMAGING MINIMUM 3 ASS VIEWS RADEX 13737 [facility] FL[facility]ERY ALL RIBS 5 MEDICAL UNILATERA IMAGING L 2 VIEWS ASS BASIC 18678 [facility] METABOLIC 5 [facility] PANEL INC INC CALCIUM TOTAL COLLECTIO 28857 [facility] N VENOUS 5 [facility] BLOOD INC INC VENIPUNCT URE BLOOD 80027 [facility] COUNT 5 [facility] COMPLETE INC INC AUTO&AUTO DIFRNTL WBC BLD GLU A4253 [facility]RI[facility] AMARAL TEST/REAG 5 HOME [facility] BLD EQUIPME [place]QU[place] GLU MON-[address] [place] [address] [facility] [place] [facility] ANITA PELVIS IMAGING W/CONTRAS ASS T MATERIAL LEVEL V 29440 [facility] SURG 5 Y Y PATHOLOGY [facility] GROSS&SHANTHI ROSCOPIC EXAM SPCL STN 17571 [facility] 2 [facility]&R [facility] ENZYME/IM CYT PROTHROMB 33689 [facility] IN TIME 5 Y Y [facility] BIOPSY 69468 [facility] LIVER 5 Y Y NEEDLE [facility] PERCUTANE OUS RADIOLOGI 13474 [facility] C 5 Y Y EXAMINATI [facility] ON CHEST SINGLE VIEW FRONTAL GLUCOSE 10843 [facility] QUANTITAT 5 Y Y ANNABELLA BLOOD [facility] XCPT REAGENT STRIP THROMBOPL 34586 [facility] ASTIN 5 Y Y TIME [facility] PARTIAL PLASMA/WH OLE BLOOD INFUSION J7030 [facility] NORMAL 5 Y Y SALINE [facility] SOLUTION 1000 CC BLOOD 13475 [facility] COUNT 5 Y Y COMPLETE [facility] AUTOMATED IMHISTOCH 74566 [facility] EM/CYTCHM 5 PATHOLOGY PATHOLOGY EA [facility] SERVICES SERVICES ANTIBODY SLIDE CUL BACT 50212 [facility] XCPT 5 [facility] URINE INC INC BLOOD/STO OL AEROBIC ISOL CUL BACT 02817 [facility] AEROBIC 5 [facility] ADDL INC INC METHS DEFINITIV E EA ISOL IMHISTOCH 48027 [facility] EM/CYTCHM 5 PATHOLOGY PATHOLOGY 1ST SERVICES [place] [address] [facility] SURG 5 PATHOLOGY PATHOLOGY PATHOLOGY SERVICES SERVICES GROSS&SHANTHI ROSCOPIC EXAM SUSCEPTIB 17171 [facility] LTY STDY 5 [facility] ANTIMICRB INC INC IAL MICRO/AGA R DILUTJ RADEX 40425 [facility] [place] [facility] SPINE 5 MEDICAL AYLA CERVICAL IMAGING 2 OR 3 ASS VIEWS BASIC 96508 [facility] COLEMAN-CAMILO METABOLIC 5 [facility] EED MOH PANEL INC CALCIUM TOTAL OBSERVATI 61516 [place] [facility]ERY AND ON CARE 5 [facility] MED MANAGEMEN T BLOOD 09474 [facility] COUNT 5 [facility] COMPLETE INC INC AUTO&AUTO DIFRNTL WBC GLUC BLD 31693 [facility] GLUC MNTR 5 [facility] DEV INC INC CLEARED FDA SPEC HOME USE COLLECTIO 79191 [facility] N VENOUS 5 [facility] BLOOD INC INC VENIPUNCT [facility] G0378 [facility] OBSERVATI 5 [facility] ON INC INC SERVICE PER HOUR NONINVASI 67494 [facility] VE 5 [facility] EAR/PULSE INC INC OXIMETRY SINGLE DETER PRESSURIZ 78456 [facility] ED/NONPRE 5 [facility] SSURIZED [place] [address] [facility] INFUSION 5 [facility] THERAPY/P INC INC ROPHYLAXI S /DX 1ST TO 1 [place] [address] [facility] INFUSION 5 [facility] INSPIRE [facility] THER INC INC PROPH ADDL SEQUENTIA L TO 1 HR THERAPEUT 89673 BRANDONKATI [facility] INJECTION INC [place] [address] BRANDON BR[facility] STREPTOCO 5 [facility] CCUS INC INC GROUP A IAADI 63675 BRANDON RABAGOON INFFLUENZ 5 [facility] A A VIRUS INC INC IAADI 75300 BRANDONKATI RABAGOON INFLUENZA 5 [facility] B VIRUS INC INC SUSCEPTIB 97479 BR[facility] T[facility] LTY STDY 5 [facility] ANTIMICRB INC INC IAL MICRO/AGA R DILUTJ INJECTION J2310 [facility] NALOXONE 5 [facility] HCL PER INC INC 1 MG CULTURE 18805 BR[facility] BACTERIAL 5 [facility] BLOOD INC INC AEROBIC W/[facility] [id number] BRANDONKATI T[facility] OBSERVATI 5 [facility] ON INC INC SERVICE PER HOUR GLUC BLD 08092 BRANDON TAYLOR GLUC MNTR 5 [facility] DEV INC INC CLEARED FDA SPEC HOME USE BLOOD 31987 BR[facility] COUNT 5 [facility] COMPLETE INC INC AUTO&AUTO DIFRNTL WBC INITIAL 48996 [facility] OBSERVATI 5 [facility] ON INTERNAL CARE/DAY MED 30 MINUTES CUL BACT 69987 BR[facility] AEROBIC 5 [facility] ADDL INC INC METHS DEFINITIV E EA ISOL CUL BACT 24065 [facility] XCPT 5 [facility] URINE INC INC BLOOD/STO OL AEROBIC ISOL RADIOLOGI 97383 [facility] C 5 [facility] EXAMINATI INC INC ON CHEST SINGLE VIEW FRONTAL RADIOLOGI 13248 [facility] Kumar 5 MED[facility] EXAMINATI IMAGING ON [place] [address] [facility]ON T[facility] GAMMAGLOB 5 [facility] ULIN IGA INC INC IGD IGG IGM EACH COMPREHEN 79375 [facility] SIVE 5 [facility] METABOLIC INC INC PANEL BLOOD 96653 [facility] COUNT 5 [facility] COMPLETE INC INC AUTO&AUTO DIFRNTL WBC COLLECTIO 56281 BRAND[facility] TAYLOR N VENOUS 5 [facility] BLOOD INC INC VENIPUNCT URE HEPATITIS 74297 [place] A & B 5 MEDICAL [place] VACCINE SERV ACH HEPA-HEPB FOUNDATIO ADULT IM N IM ADM 58851 BUNNY SOURIANAR PRQ ID 5 MEDICAL [facility]YANANE SUBQ/IM SERV ACH NJXS 1 FOUNDATIO VACCINE N PROTHROMB 84507 BRANDON TAYLOR IN TIME 5 [facility] INC INC RADEX 93497 [facility] HOMER SHOULDER 5 MEDICAL AYLA COMPLETE IMAGING MINIMUM 2 ASS VIEWS RADEX HIP 33150 [facility] MED[facility] AYLA UNILATERA IMAGING L ASS COMPLE[place] [address] [place] [address] [facility] CORONEL HEAD/BRAI 5 MEDICAL AYLA N W/O IMAGING CONTRAST ASS MATERIAL APPLICATI 13578 [facility] 4 [facility] ARM EMERGENCY SPLINT PHYS FOREARM-H AND STATIC RADEX 08348 BRANDON TAYLOR WRIST 4 [facility] COMPLETE INC INC MINIMUM 3 VIEWS RADEX 73229 BRANDON TAYLOR HAND 4 [facility] MINIMUM 3 INC INC VIEWS PREPJ& 97374 MARNI MARNI ALLERGEN 4 LUIS ALFREDO LUIS ALFREDO IMMUNOTHE RAPY 1/OPEN SHANK COVERER ANTIGEN BLD GLU A4253 CRISTIN JORDANRELL TEST/REAG 4 HOME HOME T [facility] BLD EQUIPME EQUIPME GLU MON-50 HEPATITIS 95856 [place] A & B 4 MEDICAL [place] VACCINE SERV ACH HEPA-HEPB FOUNDATIO ADULT IM N ADMINISTR G0010 [place] ATION OF 4 MEDICAL [place] HEPATITIS SERV ACH B FOUNDATIO VACCINE N SPMTRY 86667 MARNI MARNI W/VC 4 LUIS ALFREDO LUIS ALFREDO EXPIRATOR Y LULU W/WO MXML VOL VNTJ COMPRE 83558 EAR, NOSE EAR, NOSE AUDIOMETR 4 AND AND Y THROAT THROAT THRESHOLD SPECIAL SPECIAL EVAL SP RECOGNIJ TYMPANOME 82550 EAR, NOSE SHASHY TRY 4 AND SOBEIDA THROAT SPECIAL LIPID 56344 BR[facility] PANEL 4 [facility] INC INC COMPREHEN 21496 [facility] SIVE 4 [facility] METABOLIC INC INC PANEL ALBUMIN 32117 BR[facility] T[facility] URINE 4 [facility] MICROALBU INC INC MIN QUANTIATI VE COLLECTIO 80812 BR[facility] T[facility] N VENOUS 4 [facility] BLOOD INC INC VENIPUNCT URE HEMOGLOBI 39138 [facility] N 4 [facility] GLYCOSYLA INC INC ML A1C BLOOD 18429 [facility] COUNT 4 [facility] COMPLETE INC INC AUTO&[place] [address] BRANDON TAYLOR AMMONIA 4 [place] [address] BRANDON TAYL[facility] THYROID 4 [facility] STIMULATI INC INC NG HORMONE TSH RADEX HIP 35974 [facility] 4 [facility] UNILATERA INC INC L COMPLETE MINIMUM 2 VIEWS DETERMINA 33324 EVELYN RAMIREZ TION 4 [facility] 24343 EVELYN HALLMAN [facility] 4 VISION XM&EVAL CENTER COMPRHNSV ESTAB PT 1/> COLLECTIO 19651 [facility] N VENOUS 4 Y Y BLOOD [facility] VENIPUNCT URE COMPREHEN 50419 [facility] SIV 4 Y Y [facility] PANEL ANTINUCLE 61954 [facility] Y [facility] NADINE ANTINUCLE 94295 [facility] 4 Y [facility] NADINE TITER BLD GLU [...] LLC LLC FORMD PRFAB EA COLOREC G0121 [facility] CANCR 4 Y Y SCR; [facility] NOT MEET HI RISK GLUCOSE 61937 [facility] QUANTITAT 4 Y Y ANNABELLA BLOOD [facility] XCPT REAGENT STRIP ESOPHAGOG 27407 [facility] ASTRODUOD 4 Y Y ENOSCOPY [facility] TRANSORAL DIAGNOSTI C INFUSION J7030 [facility] NORMAL 4 Y Y SALINE [facility] SOLUTION 1000 CC BX SKIN 84816 [facility] SUBCUTANE 4 DERMATOLO DERMATOLO OUS&/MUCO GY GY US MEMBRANE 1 LESION BIOPSY 63783 [facility] SKIN 4 DERMATOLO DERMATOLO SUBQ&/MUC GY GY OUS MEMBRANE EA ADDL LESN CUL BACT 60966 [facility] XCPT 4 DIAGNOSTI DIAGNOSTI URINE CS CS BLOOD/[place] [address] [facility] SURG 4 DERMATOLO DERMATOLO PATHOLOGY GY GY GROSS&SHANTHI ROSCOPIC EXAM COMPREHEN 98899 [facility] SIVE 4 [facility] METABOLIC INC INC PANEL COLLECTIO 04126 [facility] T[facility] N VENOUS 4 [facility] BLOOD INC INC VENIPUNCT URE BLOOD 48038 BRANDON RABAGOON COUNT 4 [facility] COMPLETE INC INC AUTO&AUTO DIFRNTL WBC BLD GLU A4253 CRISTIN AMARAL TEST/REAG 4 HOME HOME T [facility] BLD EQUIPME EQUIPME GLU MON-50 US SOFT 78410 BR[facility] T[facility] TISSUE 4 [facility] HEAD & INC INC NECK REAL TIME IMGE DOCM COMPREHEN 51613 [facility] SIVE 4 [facility] METABOLIC INC INC PANEL BLOOD 37968 [facility] COUNT 4 [facility] COMPLETE INC INC AUTO&AUTO DIFRNTL WBC CULTURE 63935 [facility] BACTERIAL 4 [facility] INC INC QUANTTATI VE COLONY COUNT URINE COLLECTIO 32325 [facility] T[facility] N VENOUS 4 [facility] BLOOD INC INC VENIPUNCT URE CULTURE 86238 BRAND[facility] BR[facility]ON BACTERIAL 4 [facility] BLOOD INC INC AEROBIC W/ID ISOLATES RADIOLOGI 64073 [facility] EXAM 4 MEDICAL AYLA CHEST 2 IMAGING VIEWS ASS FRONTAL&L ATERAL HEPATITIS 83336 [facility] CORE 4 Y Y [facility] HBCAB TOTAL HEPATITIS 77035 [facility] SURF 4 Y [facility] HBSAB HEPATITIS 20333 [facility] A 4 Y Y ANTIBODY [facility] HAAB IADNA 94353 [facility] HEPATITIS 4 Y Y C QUANT [facility] & REVERSE TRANSCRIP TION ANTIBODY 95118 [facility] IDENTIFIC 4 Y Y ATION [facility] [place] [address] [facility] HEPATITIS 4 Y Y B [facility] SURFACE ANTIGEN HEPATITIS 64070 [facility] C 4 Y Y ANTIBODY [facility] COLLECTIO 69345 [facility] N VENOUS 4 Y Y BLOOD [facility] VENIPUNCT URE FLUORESCE 22740 [facility] NT 4 Y Y NONNFCT [facility] AGT ANTB SCREEN EA ANTIBODY COMPREHEN 96801 [facility] SIVE 4 Y Y METABOLIC [facility] PANEL BLOOD 83928 [facility] COUNT 4 Y Y COMPLETE [facility] AUTOMATED INFUSION J7030 [facility] NORMAL 4 Y Y SALINE [facility] SOLUTION 1000 CC URNLS DIP 62438 [facility] 4 Y Y STICK/TAB [facility] LET RGNT AUTO W/[place] [address] [place] ABDOMEN & 4 MEDICAL OLIVIA PELVIS SERV W/CONTRAS FOUNDATIO T MATERIAL RINGERS J7120 [facility] LACTATE 4 Y Y INFUSION [facility] UP TO 1000 CC INJECTION J2405 [facility] H[facility] PER 1 MG THER 28782 [facility] PROPH/DX 4 Y Y NJX IV [facility] PUSH SINGLE/1S T SBST/DRUG LOCM Q9967 [facility] [phone] 4 Y Y MG/ML HOSPITAL [facility]PITAL IODINE CONCENTRA TION PER ML SUSCEPTIB 46799 BRANDONKATI TAYLOR LTY STDY 4 [facility] ANTIMICRB INC INC [place] [address] BR[facility] TAYLOR AMYLASE 4 [facility] INC INC CULTURE 13252 BRANDON BRANDON BCT 4 [facility] ISOL&PRSM INC INC PTV ID ISOLATE EA URINE BLOOD 39187 [facility] TAYLOR COUNT 4 [facility] COMPLETE INC INC AUTO&AUTO DIFRNTL WBC CULTURE 62761 [facility] BACTERIAL 4 [facility] INC INC QUANTTATI VE COLONY COUNT URINE COLLECTIO 95964 BR[facility] TAYLOR N VENOUS 4 [facility] [place] [address] BRANDON TAYLOR LIPASE 4 [facility] INC INC COMPREHEN 66666 BRANDON TAYLOR SIVE 4 [facility] METABOLIC INC INC PANEL URNLS DIP 17980 BR[facility] TAYLOR 4 [facility] STICK/TAB INC INC LET REAGENT AUTO MICROSCOP Y SCR G0145 [facility] CYTOPATH 4 [facility] CERV/VAG SCR AUTO&MNL RSCR PHYS RADIOLOGI 89078 [facility] EXAM 4 MEDICAL AYLA CHEST 2 IMAGING VIEWS ASS FRONTAL&L ATERAL ECG 17618 [facility] ROUTINE 4 [facility] ECG EMERGENCY W/LEAST PHYS 12 LDS I&R ONLY ECG 61993 BR[facility] WELLS ROUTINE 4 [facility] W/LEAST P 12 LDS I&R ONLY CREATINE 82142 BR[facility] T[facility] KINASE 4 [facility] TOTAL INC INC ECG 25433 BR[facility] TAYLOR ROUTINE 4 [facility] ECG INC INC W/LEAST 12 LDS TRCG ONLY W/O I&R COLLECTIO 03611 [facility] T[facility] N VENOUS 4 [facility] BLOOD INC INC VENIPUNCT URE NATRIURET 37801 [facility] T[facility] IC 4 [facility] PEPTIDE INC INC BLOOD 74443 [facility] T[facility] COUNT 4 [facility] COMPLETE INC INC AUTO&[place] [address] BR[facility] TAY[facility]OR TROPONIN 4 [facility] QUANTITAT INC INC ANNABELLA CREATINE 60136 BR[facility] TAYLOR KINASE MB 4 [facility] FRACTION INC INC ONLY BASIC 89019 [facility] TAY[facility] METABOLIC 4 [facility] PANEL INC INC CALCIUM TOTAL BLD GLU A4253 CRISTIN AMARAL TEST/REAG 4 HOME HOME T [facility] BLD EQUIPME EQUIPME GLU MON-50 LANCETS A4259 CRISTIN CRISTIN PER BOX 4 HOME HOME OF 100 MEDICAL MEDICAL EQUIPME EQUIPME ADMN SET A7005 YOUR YOUR W/SM VOL 4 PHARMACY PHARMACY NONFILTR Apruve [facility] NEBULIZR NON-DISPB L PHRM Q0513 YOUR YOUR DISPENSIN 4 PHARMACY PHARMACY G FEE Apruve [facility] INHALATIO N RX; PER 30 DAYS ALBUTEROL J7613 YOUR YOUR INHAL 4 PHARMACY PHARMACY NON-CP Apruve [facility] PROD THRU DME U DOSE 1 MG E-STIM G0283 [facility] TAYLOR 1/> AREAS 4 [facility] OTH THAN INC INC WND CARE PART TX PLAN APPLICATI 60151 [facility] T[facility] ON 4 [facility] MODALITY INC INC 1/> AREAS HOT/COLD PACKS APPLICATI 25466 [facility] T[facility] ON 4 [facility] MODALITY INC INC 1/> AREAS HOT/COLD PACKS APPL 03964 [facility] T[facility] MODALITY 4 [facility] 1/> AREAS INC INC 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 L E-STIM G0283 [facility] 1/> AREAS 4 [facility] OTH THAN INC INC WND CARE PART TX PLAN E-STIM G0283 [facility] TAY[facility]OR 1/> AREAS 4 [facility] OTH THAN INC INC WND CARE PART TX PLAN APPL 92243 [facility] T[facility]OR MODALITY 4 [facility] 1/> AREAS INC INC 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 L APPLICATI 89434 [facility] ON 4 [facility] MODALITY INC INC 1/> AREAS HOT/COLD PACKS LIPID 46683 [facility] T[facility] PANEL 4 [facility] INC INC COMPREHEN 40053 [facility] T[facility] SIVE 4 [facility] METABOLIC INC INC PANEL COLLECTIO 90284 BR[facility] TAYLOR N VENOUS 4 [facility] BLOOD INC INC VENIPUNCT URE E-STIM G0283 [facility] TAYLOR 1/> AREAS 4 [facility] OTH THAN INC INC WND CARE PART TX PLAN APPL 61985 BRANDON TAYLOR MODALITY 4 [facility] 1/> AREAS INC INC 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 L APPL 40878 BRANDON TAYLOR MODALITY 4 [facility] 1/> AREAS INC INC ELEC STIMJ EA 15 MIN APPLICATI 91272 [facility] ON 4 [facility] MODALITY INC INC 1/> AREAS HOT/COLD PACKS TENS E0730 EMPI INC EMPI INC DEVICE 4 4/MORE LEADS MULTI NERVE STIMULATI ON APPLICATI 85953 [facility] T[facility]OR ON 4 [facility] MODALITY INC INC 1/> AREAS HOT/COLD PACKS BLD GLU A4253 CRISTIN AMARAL TEST/REAG 4 HOME HOME T [facility] BLD EQUIPME EQUIPME GLU MON-50 APPL 87510 [facility] TAY[facility]OR MODALITY 4 [facility] 1/> AREAS INC INC 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 L LANCETS A4259 CRISTIN AMARAL PER BOX 4 HOME HOME OF 100 MEDICAL MEDICAL EQUIPME EQUIPME E-STIM G0283 [facility] TAYLOR 1/> AREAS 4 [facility] OTH THAN INC INC WND CARE PART TX PLAN URNLS DIP 05892 BRANDON MIRANDA 4 [facility] ANNISTON LET RGNT P NON-AUTO W/O MICRSCP E-STIM G0283 BR[facility] TAYLOR 1/> AREAS 4 [facility] OTH THAN INC INC WND CARE PART TX PLAN APPLICATI 45831 [facility] T[facility]OR ON 4 [facility] MODALITY INC INC 1/> AREAS HOT/COLD PACKS ECG 74502 [facility] WELLS ROUTINE 4 [facility] W/LEAST P 12 LDS I&R ONLY RADIOLOGI 32513 [facility] CORONEL C EXAM 4 MEDICAL AYLA CHEST 2 IMAGING VIEWS ASS FRONTAL&L ATERAL RADIOLOGI 20912 [facility] CORONEL C EXAM 4 MEDICAL AYLA CHEST 2 IMAGING VIEWS ASS FRONTAL&L ATERAL ECG 96855 MARLO KESSLER ROUTINE 4 EMERGENCY SHANTHI ECG SERVICES W/LEAST 12 [facility] I&R ONLY E-STIM G0283 BR[facility]ON TAYLOR 1/> AREAS 4 [facility] OTH THAN INC INC WND CARE PART TX PLAN APPLICATI 99257 [facility] T[facility] ON 4 [facility] MODALITY INC INC 1/> AREAS HOT/COLD PACKS APPL 08990 BRANDON TAYLOR MODALITY 4 [facility] 1/> AREAS INC INC ULTRASOUN D EA 15 MIN APPL 48588 BRANDON TAYLOR MODALITY 4 [facility] 1/> AREAS INC INC 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 L APPL 88492 [facility] T[facility] MODALITY 4 [facility] 1/> AREAS INC INC 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 L NERVE 16556 [facility] CONDUCTIO 4 NEUROLOGY [facility] C[facility] 5-6 MITCH STUDIES APPL 03150 BR[facility] TAYLOR MODALITY 4 [facility] 1/> AREAS INC INC ULTRASOUN D EA 15 MIN NEEDLE 81482 [facility]U GARO EMG EA 4 NEUROLOGY [facility] EXTREMTY CENTER W/PARASPI MITCH NL AREA COMPLETE 3D 25985 BRANDON TAYLOR RENDERING 4 [facility] W/INTERP INC INC & POSTPROCE SS SUPERVISI ON 3D 66320 LEONA MORRISUTCHER RENDERING 4 MEDICAL AYLA IMAGING W/INTERP& ASS POSTPROC DIFF WORK STATION MRI 33405 LEONA CORONEL SPINAL 4 MEDICAL AYLA CANAL IMAGING LUMBAR ASS W/O CONTRAST MATERIAL APPL 69268 BR[facility] TAY[facility]OR MODALITY 4 [facility] 1/> AREAS INC INC 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 L APPLICATI 95564 BR[facility] TAYLOR ON 4 [facility] MODALITY INC INC 1/> AREAS HOT/COLD PACKS APPL 73842 BRANDON TAYLOR MODALITY 4 [facility] 1/> AREAS INC INC ULTRASOUN D EA 15 MIN E-STIM G0283 [facility] TAYLOR 1/> AREAS 4 [facility] OTH THAN INC INC WND CARE PART TX PLAN E-STIM G0283 [facility] T[facility]OR 1/> AREAS 4 [facility] OTH THAN INC INC WND CARE PART TX PLAN APPL 76561 [facility] T[facility]OR MODALITY 4 [facility] 1/> AREAS INC INC ULTRASOUN D EA 15 MIN APPLICATI 64525 BR[facility]ON T[facility]OR ON 4 [facility] MODALITY INC INC 1/> AREAS HOT/COLD PACKS PHYSICAL 07349 BRANDON TAYLOR THERAPY 4 [facility] EVALUATIO INC INC N APPL 69134 BR[facility] TAYLOR MODALITY 4 [facility] 1/> AREAS INC INC 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 L APPLICATI 67550 BR[facility] T[facility]OR ON 4 [facility] MODALITY INC INC 1/> AREAS HOT/COLD PACKS APPL 08269 BR[facility] TAY[facility] MODALITY 4 [facility] 1/> AREAS INC INC ULTRASOUN D EA 15 MIN E-STIM G0283 [facility] TAYLOR 1/> AREAS 4 [facility] OTH THAN INC INC WND CARE PART TX PLAN E-STIM G0283 [facility] TAY[facility]OR 1/> AREAS 4 [facility] OTH THAN INC INC WND CARE PART TX PLAN APPL 38393 BR[facility] TAYLOR MODALITY 4 [facility] 1/> AREAS INC INC ULTRASOUN D EA 15 MIN APPLICATI 15891 BR[facility]ON TAYLOR ON 4 [facility] MODALITY INC INC 1/> AREAS HOT/COLD PACKS APPL 22987 BRANDON TAYLOR MODALITY 4 [facility] 1/> AREAS INC INC 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 L APPL 35908 [facility] T[facility] MODALITY 4 [facility] 1/> AREAS INC INC 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 L LANCETS A4259 CRISTIN AMARAL PER BOX 4 HOME HOME OF 100 MEDICAL MEDICAL EQUIPME EQUIPME APPLICATI 26971 BR[facility] T[facility]OR ON 4 [facility] MODALITY INC INC 1/> AREAS HOT/COLD PACKS APPL 62654 BRANDON TAYLOR MODALITY 4 [facility] HOS[facility] MEM [...] INC WND CARE PART TX PLAN APPLICATI 93668 BRANDON TAYLOR ON 4 [facility] MODALITY INC INC 1/> AREAS HOT/COLD PACKS APPL 64079 BRANDON TAYLOR MODALITY 4 [facility] 1/> AREAS INC INC ULTRASOUN D EA 15 MIN APPL 10557 BRANDON TAYLOR MODALITY 4 [facility] 1/> AREAS INC INC 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 L APPL 58243 BR[facility] TAYLOR MODALITY 4 [facility] 1/> AREAS INC INC 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 L APPL 61581 BRANDON TAYL[facility] MODALITY 4 [facility] 1/> AREAS INC INC ULTRASOUN D EA 15 MIN APPLICATI 22287 BR[facility] T[facility] ON 4 [facility] MODALITY INC INC 1/> AREAS HOT/COLD PACKS E-STIM G0283 [facility] TAYLOR 1/> AREAS 4 [facility] OTH THAN INC INC WND CARE PART TX PLAN E-STIM G0283 [facility]OR 1/> AREAS 4 [facility] OTH THAN INC INC WND CARE PART TX PLAN APPLICATI 07124 [facility] T[facility]OR ON 4 [facility] MODALITY INC INC 1/> AREAS HOT/COLD PACKS APPL 75684 [facility] TAY[facility] MODALITY 4 [facility] 1/> AREAS INC INC ULTRASOUN D EA 15 MIN APPL 84490 [facility] TAY[facility]OR MODALITY 4 [facility] 1/> 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 [address] BR[facility] TAYLOR INFUSION 3 [facility] THERAPY INC INC PROPHYLAX IS/DX EA HOUR CYSTO 09594 BRANDON MIRANDA CALIBRATI 3 [facility] DILAT [facility] URTL P STRIX/CATRACHITO NOSIS GLUC BLD 16824 BRANDON TAYLOR GLUC MNTR 3 [facility] DEV INC INC CLEARED FDA SPEC HOME USE ANES 73794 [facility] TRANSURET 3 ANESTH HRAL OF THE W/URETHRO BLUE CYSTOSCOP Y NOS THERAPEUT 28335 BR[facility] TAYL[facility] IC 3 [facility] INJECTION [place] [address] BRANDON TAYLOR INFUSION 3 [facility] THERAPY/P INC INC ROPHYLAXI S /DX 1ST TO 1 HR INJECTION J2405 [facility] T[facility]OR 3 [facility] ONDANSETR INC INC ON HCL PER 1 MG URNLS DIP 81920 BRANDON MIRANDA 3 [facility] STICK/[facility] ANNISTON LET RGNT P NON-AUTO W/O MICRSCP PROF SVCS 84597 MARNI MARNI ALLG 3 LUIS ALFREDO LUIS ALFREDO IMMNTX X W/PRV ALLGIC XTRCS NJXS PROF SVCS 60528 MARNI MARNI ALLG 3 LUIS ALFREDO LUIS ALFREDO IMMNTX X W/PRV ALLGIC XTRCS NJXS CUL BACT 17506 BR[facility] T[facility] STOOL 3 [facility] AEROBIC INC INC ISOL SALMONELL A&SHIGELL SUSCEPTIB 76282 BRANDON TAYL[facility] LTY STDY 3 [facility] ANTIMICRB INC INC IAL MICRO/AGA R DILUTJ INJECTION J2785 [facility] REGADENOS INC INC ON 0.1 MG SMR PRIM 31576 [facility] SRC [facility] GRAM/GIEM INC INC SA STAIN BCT FUNGI/VERÓNICA L TECHNETIU A9500 [facility] TC-99M [facility] SESTAMIBI INC INC DX PER STUDY DOSE CV STRS 84410 [facility] TST [facility] XERS&/OR INC INC RX CONT ECG TRCG ONLY MYOCARDIA 10633 LEONA Yoon SPECT 3 MEDICAL [facility]YLA MULTIPLE IMAGING STUDIES ASS COMPREHEN 90072 [facility] SIVE [facility] [address] [facility] LIPASE 3 [facility] INC INC COLLECTIO 46112 [facility] N VENOUS 3 [facility] BLOOD INC INC VENIPUNCT URE BLOOD 27848 [facility] COUNT [facility] COMPLETE INC INC AUTO&[place] [address] [facility] AMYLASE 3 [facility] INC INC ALBUTEROL J7613 YOUR YOUR INHAL 3 PHARMACY PHARMACY NON-CP Apruve [facility] PROD THRU DME U DOSE 1 MG PHRM Q0513 YOUR YOUR DISPENSIN 3 PHARMACY PHARMACY G FEE [facility] INHALATIO N RX; PER 30 DAYS SUSCEPTIB 38586 [facility] LTY STDY 3 [facility] ANTIMICRB INC INC IAL MICRO/AGA R DILUTJ URNLS DIP 05042 [facility] MIRANDA 3 [facility] LET RGNT P NON-AUTO W/O MICRSCP CULTURE 16189 [facility] BACTERIAL 3 [facility] INC INC QUANTTATI VE COLONY COUNT URINE CULTURE 46999 [facility] BCT 3 [facility] ISOL&PRSM INC INC PTV ID ISOLATE EA URINE INSJ 57431 [facility] MIRANDA NON-NDWEL 3 [facility] BLADDER P CATHETER 3D 22267 [facility] RENDERING 3 [facility] INC INC W/INTERP& POSTPROC DIFF WORK STATION COMPREHEN 11862 [facility] SIVE 3 [facility] METABOLIC INC INC PANEL RADEX ABD 99910 [facility] COMPL [facility] AQT ABD INC INC W/S/E/D VIEWS 1 VIEW CH BLOOD 12912 [facility] COUNT [facility] COMPLETE INC INC AUTO&[place] [address] [facility] LIPASE [facility] INC INC INJECTION J2405 [facility] ONDANSETR INC INC ON HCL PER 1 MG PROF SVCS 40955 MARNI MARNI ALLG 3 LUIS ALFREDO LUIS ALFREDO IMMNTX X W/PRV ALLGIC XTRCS NJXS THERAPEUT 59013 [facility] IC [facility] PROPHYLAC INC INC TIC/DX INJECTION SUBQ/[place] [address] [facility] ABDOMEN & 3 [facility] PELVIS INC INC W/O CONTRAST MATERIAL SPMTRY 30761 MARNI MARNI W/VC 3 LUIS ALFREDO LUIS ALFREDO EXPIRATOR Y LULU W/WO MXML VOL VNTJ PROF SVCS 32301 MARNI MARNI ALLG 3 LUIS ALFREDO LUIS ALFREDO IMMNTX X W/PRV ALLGIC XTRCS NJXS CULTURE 36423 [facility] BACTERIAL 3 [facility] INC INC QUANTTATI VE COLONY COUNT URINE PROF SVCS 74464 MARNI MARNI ALLG 3 LUIS ALFREDO LUIS ALFREDO IMMNTX X W/PRV ALLGIC XTRCS NJXS PROF SVCS 99995 MARNI MARNI ALLG 3 LUIS ALFREDO LUIS ALFREDO IMMNTX X W/PRV ALLGIC XTRCS [facility]XS CULTURE 04458 COMBINED COMBINED BACTERIAL 3 PHYSICIAN PHYSICIAN S LA S LA QUANTTATI VE COLONY COUNT URINE BLOOD 19553 [facility] COUNT [facility] COMPLETE INC INC AUTO&AUTO DIFRNTL WBC COLLECTIO 11228 [facility] N VENOUS 3 [facility] BLOOD INC INC VENIPUNCT URE POSTERIOR V2632 [facility] CHAMBER 3 [facility] INTRAOCUL INC INC AR LENS GLUC BLD 49144 [facility] GLUC MNTR 3 [facility] DEV INC [place] [address] [facility] INFUSION 3 [facility] THERAPY INC INC PROPHYLAX IS/DX EA HOUR PROF SVCS 31068 MARNI MARNI ALLG 3 LUIS ALFREDO LUIS ALFREDO IMMNTX X W/[place] [address] [facility] THERAPY/P INC INC ROPHYLAXI S /DX 1ST TO 1 HR CATARACT 57053 [facility] REMOVAL 3 [facility]ET [facility]ION [facility] COMPREHEN 24911 [facility] SIVE [facility] METABOLIC INC INC PANEL CULTURE 13004 [facility] BACTERIAL 3 [facility] INC INC QUANTTATI VE COLONY COUNT URINE BLOOD 40616 [facility] COUNT 3 [facility] COMPLETE INC INC AUTO&AUTO DIFRNTL WBC COLLECTIO 33660 [facility] N VENOUS 3 [facility] BLOOD INC INC VENIPUNCT URE PROF SVCS 04822 MARNI MARNI ALLG 3 [facility] AL[facility] LUIS ALFREDO IMMNTX X W/PRV ALLGIC XTRCS NJXS PROF SVCS 65188 MARNI MARNI ALLG 3 [facility] LUIS ALFREDO IMMNTX X W/PRV ALLGIC XTRCS NJXS SPMTRY 62026 MARNI MARNI W/VC 3 [facility] LUIS ALFREDO EXPIRATOR Y LULU W/WO MXML VOL VNTJ POSTERIOR V2632 [facility] CHAMBER [facility] INTRAOCUL INC INC AR LENS GLUC BLD 00220 [facility] GLUC MNTR 3 [facility] DEV [place] [address] [facility] THERAPY INC INC PROPHYLAX IS/DX EA HOUR OPH BMTRY 58927 [facility] [place] [address] [facility] THERAPY/P INC INC ROPHYLAXI S /DX 1ST TO 1 HR CATARACT 76976 [facility] [place] REMOVAL 3 [facility] SUSCEPTIB 78821 [facility] LTY STDY 3 [facility] ANTIMICRB INC INC IAL MICRO/AGA R DILUTJ CULTURE 40115 [facility] BACTERIAL 3 [facility] INC INC QUANTTATI VE COLONY COUNT URINE CULTURE 05768 [facility] BCT 3 [facility] ISOL&PRSM INC INC PTV ID ISOLATE EA URINE URNLS DIP 70272 [facility] 3 [facility] JR PETR STICK/TAB INTERNAL LET RGNT MED NON-AUTO W/O MICRSCP ADMN SET A7005 YOUR YOUR W/SM VOL 3 PHARMACY PHARMACY NONFILTR Apruve [facility] NEBULIZR NON-DISPB L ALBUTEROL J7613 YOUR YOUR INHAL 3 PHARMACY PHARMACY NON-CP Apruve [facility] PROD THRU DME U DOSE 1 MG PHRM Q0513 YOUR YOUR DISPENSIN 3 PHARMACY PHARMACY G FEE Apruve [facility] INHALATIO N RX; PER 30 DAYS BRNCDILAT 71530 MARNI MARNI RSPSE 3 [facility] SPMTRY PRE&POST- BRNCDILAT ADMN PRESSURIZ 17778 MARNI MARNI ED/NONPRE 3 [facility] SSURIZED INHALATIO N TREATMENT THERAPEUT 86851 MARNI MARNI IC 3 [facility] PROPHYLAC TIC/DX INJECTION SUBQ/IM DEMO&/POLLY 88441 MARNI MARNI L OF PT 3 [facility] UTILIZ AERSL GEN/NEB/I NHLR/IP RADIOLOGI 51618 [facility] C EXAM 3 [facility] CHEST 2 INC INC VIEWS FRONTAL&L ATERAL C-REACTIV 71332 [facility] E PROTEIN 3 [facility] INC INC SEDIMENTA 37540 [facility] TION RATE 3 [facility] RBC INC INC NON-AUTOM ATED INJECTION J1040 MARNI MARNI 3 [facility] AL[facility] LUIS ALFREDO METHYLPRE DNISOLONE ACETATE 80 MG COMPLEMEN 91262 [facility] T TOTAL 3 [facility] HEMOLYTIC INC INC INJECTION J2010 MARNI MARNI 3 [facility] AL[facility] LUIS ALFREDO LINCOMYCI N HCL UP TO 300 MG RHEUMATOI 81556 [facility] D FACTOR 3 [facility] QUANTITAT INC INC ANNABELLA ANTIBODY 15739 [facility] BACTERIUM 3 [facility] NOT INC INC ELSEWHERE SPECIFIED BLOOD 44416 [facility] COUNT 3 [facility] COMPLETE INC INC AUTO&[place] [address] [facility] THYROID 3 [facility] STIMULATI [place] [address] [facility] GAMMAGLOB 3 [facility] ULIN IGE INC INC CYANOCOBA 21838 [facility] PRATEEK 3 [facility] VITAMIN INC INC B-12 25 75972 [facility] HYDROXY 3 [facility] INCLUDES INC INC FRACTIONS IF PERFORMED COLLECTIO 44544 [facility] N VENOUS 3 [facility] [place] [address] [facility] THYROXINE 3 [facility] TOTAL INC INC GAMMAGLOB 25305 [facility] ULIN 3 [facility] IMMUNOGLO INC INC BULIN SUBCLASSE S ANTINUCLE 47157 [facility] AR 3 [facility] [place] [address] [facility] GAMMAGLOB 3 [facility] ULIN IGA INC INC IGD IGG IGM EACH RADEX 48939 [facility] RIBS UNI 3 [facility] W/POSTERO INC INC ANT CH MINIMUM 3 VIEWS CULTURE 53472 COMBINED COMBINED BACTERIAL 3 PHYSICIAN PHYSICIAN S LA S LA QUANTTATI VE COLONY COUNT URINE PROF SVCS 81859 MARNI MARNI ALLG 3 [facility] AL[facility] LUIS ALFREDO IMMNTX X W/PRV ALLGIC XTRCS NJXS URNLS DIP 87569 [facility] 3 VALLEY CECE STICK/TAB INTERNAL LET RGNT MEDI NON-AUTO W/O MICRSCP OPHTH 40823 [facility] 3 EYE JANET XM&EVAL INSTITUTE COMPRE NEW PT 1/> VST OPH BMTRY 53237 [facility] A-SCAN IO LENS PWR [place] COLLECTIO 99423 [facility] N VENOUS 3 [facility] BLOOD INC INC VENIPUNCT URE BLOOD 46705 [facility] COUNT 3 [facility] COMPLETE INC INC AUTO&AUTO DIFRNTL WBC BLOOD 18423 [facility] COUNT 3 [facility] COMPLETE INC INC AUTO&AUTO DIFRNTL WBC URNLS DIP 60376 [facility] 3 VALLEY JR PETR STICK/TAB INTERNAL LET RGNT MED NON-AUTO W/O MICRSCP COLLECTIO 77169 [facility] N VENOUS 3 [facility] BLOOD INC INC VENIPUNCT URE COMPREHEN 68853 [facility] SIVE 3 [facility] METABOLIC INC INC PANEL RADIOLOGI 42092 [facility] C EXAM 3 [facility] CHEST 2 INC INC VIEWS FRONTAL&L ATERAL PROF [facility] 22832 MARNI MARNI ALLG 3 LUIS ALFREDO LUIS ALFREDO IMMNTX X W/PRV ALLGIC XTRCS NJXS PROF [facility] 38014 MARNI MARNI ALLG 3 [facility] LUIS ALFREDO IMMNTX X W/PRV ALLGIC XTRCS NJXS LANCETS A4259 M E D M E D PER BOX 3 SUPPLIES SUPPLIES OF 100 PREPJ& 81017 MARNI MARNI ALLERGEN 3 [facility] LUIS ALFREDO IMMUNOTHE RAPY 1/OPEN SHANK COVERER ANTIGEN BLD GLU A4253 M E D M E D TEST/REAG 3 SUPPLIES SUPPLIES T STRIPS HOME BLD GLU MON-50 PROF [facility] 50763 MARNI MARNI ALLG 3 LU[facility] ALFREDO LUIS ALFREDO IMMNTX X W/PRV ALLGIC XTRCS NJXS PROF [facility] 77531 MARNI MARNI ALLG 3 LUIS ALFREDO LUIS ALFREDO IMMNTX X W/PRV ALLGIC XTRCS NJXS SUSCEPTIB 09136 [facility] LTY STDY 3 [facility] ANTIMICRB INC INC IAL MICRO/AGA R DILUTJ COMPREHEN 44513 [facility] SIVE 3 [facility] METABOLIC INC INC PANEL URNLS DIP 74898 [facility] 3 [facility] STICK/TAB INC INC LET REAGENT AUTO MICROSCOP Y COLLECTIO 61084 [facility] N VENOUS 3 [facility] BLOOD INC INC VENIPUNCT URE CULTURE 09799 [facility] BCT 3 [facility] ISOL&PRSM INC INC PTV ID ISOLATE EA URINE CULTURE 88355 [facility] BACTERIAL 3 [facility] INC INC QUANTTATI VE COLONY COUNT URINE BLOOD 41149 [facility] COUNT 3 [facility] COMPLETE INC INC AUTO&AUTO DIFRNTL WBC CANE INCL E0100 C[facility] CRISTIN CANES 3 HOME HOME ALL MEDICAL MEDICAL MATERIAL EQUIPME EQUIPME ADJUSTBLE /FIX W/TIP DXA BONE 07360 [facility] [place] DENSITY 3 MEDICAL AYLA STUDY 1/> IMAGING SITES ASS AXIAL SKEL PROF [facility] 50254 MARNI MARNI ALLG 3 LU[facility] ALFR[facility] LUIS ALFREDO IMMNTX X W/PRV ALLGIC XTRCS NJXS RADIOLOGI 46713 [facility] C EXAM 3 MEDICAL AYLA CHEST 2 IMAGING VIEWS ASS FRONTAL&L ATERAL RADIOLOGI 46132 [facility] C EXAM 3 MEDICAL AYLA KNEE IMAGING COMPLETE ASS 4/MORE VIEWS PROF [facility] 99310 MARNI MARNI ALLG 3 [facility] ALFR[facility] LUIS ALFREDO IMMNTX X W/PRV ALLGIC XTRCS NJXS CULTURE 20195 COMBINED COMBINED BACTERIAL 3 PHYSICIAN PHYSICIAN S LA S LA QUANTTATI VE COLONY COUNT URINE URNLS DIP 77951 [facility] 3 VALLEY CECE STICK/TAB INTERNAL LET RGNT MEDI NON-AUTO W/O MICRSCP PROF [facility] 07311 MARNI MARNI ALLG 3 [facility] AL[facility] LUIS ALFREDO IMMNTX X W/PRV ALLGIC XTRCS NJXS COLLECTIO 83097 [facility] N VENOUS 3 [facility] [place] [address] [facility] BLOOD/URI 3 [facility] C ACID INC INC PROF SVCS 04343 MARNI MARNI ALLG 3 [facility] ALFR[facility] LUIS ALFREDO IMMNTX X W/PRV ALLGIC XTRCS NJXS PROF SVCS 04429 MARNI MARNI ALLG 3 [facility] ALFR[facility] LUIS ALFREDO IMMNTX X W/PRV ALLGIC XTRCS NJXS PROF SVCS 81951 MARNI MARNI ALLG 3 [facility] ALFRED[facility] LUIS ALFREDO IMMNTX X W/PRV ALLGIC XTRCS NJXS PROF SVCS 58260 MARNI MARNI ALLG 3 [facility] ALFREDO LUIS ALFREDO IMMNTX X W/PRV ALLGIC XTRCS NJXS PROF SVCS 03351 MARNI MARNI ALLG 3 [facility] AL[facility] LUIS ALFREDO IMMNTX X W/PRV ALLGIC XTRCS NJXS PERCUTANE 17874 MARNI MARNI OUS TESTS 3 [facility] LUIS ALFREDO W/ALLERGE ALVARADO EXTRACTS SPMTRY 45287 MARNI MARNI W/VC 3 LUIS ALFREDO LUIS [...] DNSITY INSRT CSTM MOLD CSTM EA SPMTRY 30586 MARNI MARNI W/VC 3 [facility] AL[facility] LUIS ALFREDO EXPIRATOR Y LULU W/WO MXML VOL VNTJ CYSTOURET 00243 [facility] JR HROSCOPY 3 [place] [address] [facility] TRANSVAGI 3 [facility] NAL INC INC COMPUTER- 03-01-201 22737 [facility] AIDED 3 MEDICAL AYLA DETECTION IMAGING ASS SCREENING MAMMOGRAP HY SCREENING G0202 [facility] CORONEL 3 MEDICAL AYLA MAMMOGRAP IMAGING HY DURGA ASS INCL CAD WHEN PERFORMD NJX 50988 [facility] RETROGRAD 3 MEDICAL AYLA E IMAGING URETHROCS ASS TOGRAPY LOCM Q9965 [facility] 100-199 3 [facility] MG/ML INC INC IODINE CONCENTRA TION PER ML URETHROCY 47750 [facility] CORONEL STOGRAPHY 3 MEDICAL AYLA VOIDING IMAGING RS&I ASS CULTURE 29625 COMBINED COMBINED BACTERIAL 3 PHYSICIAN PHYSICIAN S LA S LA QUANTTATI VE COLONY COUNT URINE URNLS DIP 22610 [facility] STICK/TAB INTERNAL INTERNAL LET RGNT MEDI MEDI NON-AUTO W/O MICRSCP IM ADM 73003 [facility] PRQ ID 3 [facility] SUBQ/IM INTERNAL NJXS 1 MEDI VACCINE INJECTION J0696 [facility] 3 [facility] CEFTRIAXO INTERNAL NE SODIUM MEDI PER [facility] [address] [place] [address] INTERNAL MANAGEMEN MED T 30 MIN/< SBSQ [address] [facility] [address]/DAY INTERNAL 25 MED MINUTES [facility]BSQ 98243 [facility] [address]DAY INTERNAL 25 MED MINUTES [facility]BSQ [facility]252 [facility] [address]/DAY INTERNAL 25 MED MINUTES 93649 [facility]ONEL RETROPERI 3 MEDICAL AYLA TONEAL IMAGING REAL TIME ASS W/IMAGE COMPLETE SBSQ [address]/DAY INTERNAL 25 MED MINUTES FULL FACE A7030 [facility] MASK 3 MEDICAL MEDICAL USED SUPPLY SUPPLY W/POS INC. INC. Theorem DEVICE EA INITIAL 45716 [facility] 3 VALLEY JR PETR CARE/DAY INTERNAL 50 MED MINUTES URNLS DIP 13578 KARMEN'Mamta CARIAS 3 [facility] STICK/TAB CLINIC OF LET RGNT SONIA NON-AUTO W/O MICRSCP CULTURE 69876 COM[facility]ED COMBINED BACTERIAL 3 PHYSICIAN PHYSICIAN Mamta [...] SONIA PREP &C ONVEY TO LAB CULTURE 11434 COM[facility] COMBINED BACTERIAL 3 PHYSICIAN PHYSICIAN S MATEO SIMS QUANTTATI VE COLONY COUNT URINE URNLS DIP 77719 [facility] 3 VALLEY CECE STICK/TAB INTERNAL LET RGNT MEDI NON-AUTO W/O MICRSCP CULTURE 70318 [facility] BCT 3 [facility] ISOL&PRSM INC INC PTV ID ISOLATE EA URINE CULTURE 64237 [facility] BACTERIAL 3 [facility] INC INC QUANTTATI VE COLONY COUNT URINE HEMOGLOBI 12119 [facility] N 3 [facility] GLYCOS[place] [address] [facility] THYROID 3 [facility] STIMULATI INC INC NG HORMONE TSH BLOOD 91328 [facility] COUNT 3 [facility] COMPLETE INC INC AUTO&AUTO DIFRNTL WBC ALBUMIN 50951 [facility] URINE 3 [facility] MICROALBU INC INC MIN QUANTIATI VE COLLECTIO 08025 [facility] N VENOUS 3 [facility] BLOOD INC INC VENIPUNCT URE LIPID 27267 [facility] PANEL 3 [facility] INC INC COMPREHEN 35266 [facility] SIVE 3 [facility] METABOLIC INC INC PANEL SUSCEPTIB 19496 [facility] LTY STDY 3 [facility] ANTIMICRB INC INC IAL MICRO/AGA R DILUTJ INITIAL 90511 [facility] INPATIENT 3 PSC CONSULT NEW/ESTAB PT 80 MIN SBSQ 57343 [facility] 3 PSC CARE/DAY 35 MINUTES SBSQ 95769 INPATIENT [facility] 3 CARE, CARE/DAY PLLC 25 MINUTES SBSQ 39085 INPATIENT [facility] 3 CARE, CARE/DAY PLLC 35 MINUTES NEBULIZER E0570 C[facility] AMARAL WITH 3 HOME HOME [facility] MEDICAL MEDICAL R EQUIPME EQUIPME SBSQ 95768 INPATIENT [facility] 3 CARE, CARE/DAY PLLC 25 MINUTES SBSQ 54438 INPATIENT [facility] 3 CARE, CARE/DAY PLLC 35 MINUTES INITIAL 49337 INPATIENT [facility] 3 CARE, CARE/DAY PLLC 50 MINUTES BLD GLU A4253 M E D M E D TEST/REAG 2 SUPPLIES SUPPLIES T STRIPS HOME BLD GLU MON-50 LANCETS A4259 M E D M E D PER BOX 2 SUPPLIES SUPPLIES [place] 100 IV [address] [facility] INFUSION 2 [facility] THERAPY INC INC PROPHYLAX IS/DX EA HOUR URNLS DIP 36635 [facility] 2 [facility] STICK/TAB INC INC LET REAGENT AUTO MICROSCOP Y BASIC 11934 [facility] METABOLIC 2 [facility] PANEL INC INC CALCIUM TOTAL CULTURE 72252 [facility] BCT 2 [facility] ISOL&PRSM INC INC PTV ID ISOLATE EA URINE CULTURE 08699 [facility] BACTERIAL 2 [facility] INC INC QUANTTATI VE COLONY COUNT URINE BLOOD 06139 [facility] COUNT 2 [facility] COMPLETE INC INC AUTO&AUTO DIFRNTL WBC SUSCEPTIB 71614 [facility] LTY STDY 2 [facility] ANTIMICRB INC INC IAL MICRO/AGA R DILUTJ INJECTION J2405 [facility] 2 [facility] ONDANSETR INC INC ON HCL PER 1 MG THERAPEUT 28095 [facility] IC 2 [facility] INJECTION [place] [address] [facility] INFUSION 2 [facility] THERAPY/P INC INC ROPHYLAXI S /DX 1ST TO 1 HR RADIOLOGI 24354 [facility] [place] C EXAM 2 MEDICAL AYLA CHEST 2 IMAGING VIEWS ASS FRONTAL&L ATERAL NASL A7034 LIBFERNA[facility] CLEMENS INTRFCE 2 MEDICAL MEDICAL POS ARWAY SUPPLY SUPPLY PRSS INC. INC. DEVC W/WO HEAD STRAP HEADGEAR A7035 LIBFERNA[facility] LIBERTY USED 2 MEDICAL MEDICAL W/POSITIV SUPPLY SUPPLY E AIRWAY INC. INC. PRESSURE DEVICE RADIOLOGI 20482 [facility] [place] [facility] C 2 MEDICAL AYLA EXAMINATI IMAGING ON KNEE ASS 1/2 VIEWS RADEX 73147 [facility] [place] FINGR 2 MEDICAL AYLA MINIMUM 2 IMAGING VIEWS ASS RADEX 72258 [facility] [place] [facility] HUMERUS 2 MEDICAL AYLA MINIMUM 2 IMAGING VIEWS ASS BLD GLU A4253 [facility] TEST/REAG 2 CVS CVS T STRIPS PHARMACY PHARMACY HOME BLD LLC, D LLC, D GLU MON-50 NEBULIZER E0570 CRISTIN AMARAL WITH 2 HOME HOME COMPRESSO MEDICAL MEDICAL R EQUIPME EQUIPME COLONOSCO 91885 COLORECTA PALOMO PY 2 L SURGIAL CATRACHITO W/BIOPSY SINGLE/MU ASSOCIATE LTIPLE ENDOSCOPY 11226 H[facility]U HINDU UPPER 2 PHYS SURG PHYS SURG SMALL CTR CTR INTESTINE W/BIOPSY EGD 96420 COLORECTA PALOMO TRANSORAL 2 L SURGIAL CATRACHITO BIOPSY SINGLE/MU ASSOCIATE LTIPLE ANES 95293 [facility] LOWER 2 [place] [facility] INTESTINE ANESTHESI A ENDOSCOPY DISTAL DUODENUM RADEX 21192 [facility] SMALL 2 [facility] INTESTINE HOSP HOSP W/MULTIPL E SERIAL IMAGES SPECIAL 52279 [facility] STAIN 2 [facility] GROUP 1 HOSP HOSP MICROORGA NISMS I&[place] [address] [facility] SURG 2 [facility] PATHOLOGY HOSP HOSP GROSS&SHANTHI ROSCOPIC EXAM RADIOLOGI 57559 [facility] [place] GARCIA C 2 RADIOLOGY RAY EXAMINATI ON CHEST SINGLE VIEW FRONTAL ECG 14574 [facility] ROUTINE 2 KAMAR DEIDRA ECG EMERGENCY W/LEAST PHYS 12 LDS I&R ONLY NEBULIZER E0570 CRISTIN AMARAL WITH 2 HOME HOME COMPRESS[facility] MEDICAL MEDICAL R EQUIPME EQUIPME BLD GLU A4253 [facility] TEST/REAG 2 CVS CVS T STRIPS PHARMACY PHARMACY HOME BLD LLC, D LLC, D GLU MON-50 ACUTE 43421 [facility] HEPATITIS 2 AMERIC AMERIC PANEL HOLDING HOLDING CYANOCOBA 63595 LAB [facility] PRATEEK 2 AMERIC AMERIC VITAMIN HOLDING HOLDING B-[address] [place] [address] [facility] LIPASE 2 [employer] [place] [address] [facility] FOLIC 2 AMERIC [employer] [place] [address] LAB [facility] AMYLASE 2 AMERIC AMERIC HOLDING HOLDING HEMOGLOBI 19860 [facility] N 2 AMERIC AMERIC GLYCOSYLA HOLDING HOLDING ML A1C ADMINISTR G0008 [facility] BAZZI ATION OF 2 HEALTHCAR TAR INFLUENZA E CENTER VIRUS VACCINE INFLUENZA Q2036 [facility] VACC 2 HEALTHCAR TAR SPLIT E CENTER VIRUS 3 YRS & > IM FLULAVAL NEBULIZER E0570 CRISTIN AMARAL WITH 2 HOME HOME COMPRESSO MEDICAL MEDICAL R EQUIPME EQUIPME HOME E0607 [facility] BLOOD 2 CVS CVS GLUCOSE PHARMACY PHARMACY MONITOR LLC, D , [place] [address] [facility] THYROID 2 AMERIC AMERIC STIMULATI HOLDING HOLDING NG HORMONE TSH LANCETS A4259 [facility] PER BOX 2 CVS CVS OF 100 PHARMACY PHARMACY LLC, D , D COMPREHEN 24425 [facility] SIVE 2 AMERIC AMERIC METABOLIC HOLDING HOLDING PANEL HEPATITIS 69997 [facility] ANTIBODY 2 AMERIC [...] SUPPLIES SUPPLIES DEVICE FOR LANCET EACH SBSQ 06044 [facility] 2 PSC CARE/DAY 25 MINUTES TRANS R0070 [facility] PRTBL 2 MOBILE MOBILE X-RAY DIAGNOSTI DIAGNOSTI EQP&PERS C SE C SE OSCAR/NRS OSCAR-TRIP 1 PT RADEX 53236 [facility] SPINE 2 MOBILE MOBILE CERVICAL DIAGNOSTI DIAGNOSTI 2 OR 3 C SE C SE VIEWS SET-UP Q0092 [facility] PORTABLE 2 MOBILE MOBILE X-RAY DIAGNOSTI DIAGNOSTI EQUIPMENT C SE C SE SBSQ 15654 [facility] 2 PSC CARE/DAY 25 MINUTES SBSQ 77069 INPATIENT [facility] 2 CARE, CARE/[place] [address] [place] [address] [facility] [place] PETER HEAD/BRAI 2 RADIOLOGY JULIÁN N W/O CONTRAST MATERIAL ECG [address] [facility] ROUTINE 2 [facility] ECG CARDIOLOG W/LEAST Y CLINIC 12 LDS I&R ONLY SBSQ 26990 [facility] 2 PSC CARE/DAY 25 MINUTES SBSQ 59420 [facility] 2 PSC CARE/DAY 25 MINUTES NEBULIZER E0570 CRISTIN AMARAL WITH 2 HOME HOME COMPRESS[facility] MEDICAL MEDICAL R EQUIPME EQUIPME DUP-SCAN 96542 [facility] [place] BRIZUELA JAM XTR VEINS 2 RADIOLOGY UNILATERA L/LIMITED STUDY ECG 19293 [facility] ROUTINE 2 MOBILE MOBILE ECG DIAGNOSTI DIAGNOSTI W/LEAST C SE C SE 12 LDS TRCG ONLY W/O I&R TRANS R0075 [facility] PRTBL 2 MOBILE MOBILE XRAY DIAGNOSTI DIAGNOSTI EQP&PERS C SE C SE OSCAR/NRS OSCAR-TRIP> 1 PT SET-UP Q0092 [facility] PORTABLE 2 MOBILE MOBILE X-RAY DIAGNOSTI DIAGNOSTI EQUIPMENT C SE C SE RADIOLOGI 63015 [facility] C EXAM 2 MOBILE MOBILE CHEST 2 DIAGNOSTI DIAGNOSTI VIEWS C SE C SE FRONTAL&L ATERAL SBSQ 91889 [facility] 2 PSC CARE/DAY 35 MINUTES COLLECTIO 82750 [facility] N VENOUS 2 [facility] BLOOD INC INC VENIPUNCT URE ANTINUCLE 98455 [facility] AR 2 [facility] ANTIBODIE INC INC S NADINE BASIC 42730 [facility] METABOLIC 2 [facility] PANEL INC INC CALCIUM TOTAL DNA 84547 [facility] ANTIBODY 2 [facility] [place]/DO INC INC UBLE STRANDED DNA 89148 [facility] ANTIBODY 2 [facility] SINGLE INC INC STRANDED SEDIMENTA 76748 [facility] TION RATE 2 [facility] RBC INC INC NON-AUTOM ATED SKIN TEST 46292 [facility] 2 VALLEY CECE TUBERCULO INTERNAL SIS MEDI INTRADERM AL IM ADM 39353 [facility] PRQ ID 2 VALLEY CECE SUBQ/IM INTERNAL NJXS 1 MEDI VACCINE CARCINOEM 04757 [facility] BRYONIC 2 [facility] ANTIGEN INC INC CEA COMPREHEN 30491 [facility] R[facility] SIVE 2 [facility] METABOLIC INC INC PANEL COLLECTIO 70752 [facility] N VENOUS 2 [facility] [place]LO[place] [address] [facility] LIPASE 2 [place] [address] [facility] THYROID 2 [facility] STIMULATI INC INC NG HORMONE TSH BLOOD 29450 [facility] COUNT 2 [facility] COMPLETE INC INC AUTO&[place] [address] [facility] AMYLASE 2 [facility] INC INC NEBULIZER [id number] [facility] AMARAL WITH 2 HOME [facility]PRESS[facility]ICAL MEDICAL R EQUIPME EQUIPME COLLECTIO 10225 [facility] N VENOUS 2 Y Y BLOOD [facility] VENIPUNCT URE BLOOD 22757 [facility] COUNT 2 Y Y COMPLETE [facility] AUTO&AUTO DIFRNTL WBC BASIC 81187 [facility] METABOLIC 2 Y Y PANEL [facility] CALCIUM TOTAL INJECTION J2270 [facility] MORPHINE 2 Y Y SULFATE [facility] UP TO 10 MG INJECTION J2405 [facility] [place] [address] [place] [address] [place] MAXILLOFA 2 MEDICAL CIAL SERV W/CONTRAS FOUNDATIO T MATERIAL LOCM Q9967 [facility] [phone] Y Y MG/ML [facility] IODINE CONCENTRA TION PER ML THERAPEUT 14705 [facility] IC 2 Y Y INJECTION [facility] [place] [address] [facility] INFUSION 2 Y Y THERAPY/P [facility] ROPHYLAXI S /DX 1ST TO 1 HR PREPJ& 53297 MARNI MARNI ALLERGEN 2 LUIS ALFREDO LOBATO IMMUNOTHE RAPY 1/OPEN SHANK COVERER ANTIGEN NEBULIZER E0570 CRISITN AMARAL WITH 2 HOME [facility] R EQUIPME EQUIPME PROF [facility] 86853 MARNI MARNI ALLG 2 LUIS ALFREDO LUIS ALFREDO IMMNTX X W/PRV ALLGIC XTRCS NJXS [facility] 70406 MARNI MARNI ALLG 2 LUIS ALFREDO LUIS ALFREDO IMMNTX X W/PRV ALLGIC XTRCS NJXS [facility] 18141 MARNI MARNI ALLG 2 LUIS ALFREDO LUIS [...] SUPPLIES HIGH CALIBRATO R SOLUTION/ CHIPS [facility] 55816 MARNI MARNI ALLG 2 LUIS ALFREDO LUIS ALFREDO IMMNTX X W/PRV ALLGIC XTRCS NJXS PROF SVCS 90893 MARNI MARNI ALLG 2 LUIS ALFERDO LUIS ALFREDO IMMNTX X W/PRV ALLGIC XTRCS NJXS THER 93248 [facility] PROPH/DX [facility] NJX IV INC INC PUSH SINGLE/1S T SBST/DRUG RADIOLOGI 57667 [facility] C [facility] EXAMINATI INC INC ON CHEST SINGLE VIEW FRONTAL COMPREHEN 41641 [facility] SIVE 2 [facility] METABOLIC INC INC PANEL CREATINE 65841 [facility] KINASE 2 [facility] TOTAL INC INC ECG 68606 MARLO FATIMA ROUTINE 2 EMERGENCY PETR ECG SERVICES W/LEAST 12 LDS I&R ONLY ECG 52964 [facility] ROUTINE 2 [facility] ECG INC INC W/LEAST 12 LDS TRCG ONLY W/O I&R BLOOD 65973 [facility] COUNT 2 [facility] COMPLETE INC INC AUTO&AUTO DIFRNTL WBC CREATINE 64382 [facility] KINASE MB 2 [facility] [place] [address] [facility] TROPONIN 2 [facility] QUANTITAT INC INC ANNABELLA NATRIURET 77487 [facility] IC [facility] PEPTIDE INC INC PROF SVCS 10961 MARNI MARNI ALLG 2 LUIS ALFREDO LUIS ALFREDO IMMNTX X W/PRV ALLGIC XTRCS NJXS PROF SVCS 89966 MARNI MARNI ALLG 2 LUIS ALFREDO LUIS ALFREDO IMMNTX X W/PRV ALLGIC XTRCS NJXS THERAPEUT 14637 [facility] IC [facility] INJECTION INC INC IV PUSH EACH NEW DRUG PROF SVCS 64527 MARNI MARNI ALLG 2 LUIS ALFREDO LUIS ALFREDO IMMNTX X W/PRV ALLGIC XTRCS NJXS THER 03210 [facility] PROPH/DX [facility] NJX IV INC INC PUSH SINGLE/1S T SBST/[place] [address] [facility] ABDOMEN & 2 [facility] PELVIS INC INC W/O CONTRAST MATERIAL INJECTION J2405 [facility] ONDANSETR INC INC ON HCL PER 1 MG SUSCEPTIB 70886 [facility] LTY STDY 2 [facility] ANTIMICRB INC INC IAL MICRO/AGA R DILUTJ CULTURE 63777 [facility] BACTERIAL [facility] INC INC QUANTTATI VE COLONY COUNT URINE CULTURE 50560 [facility] BCT [facility] ISOL&PRSM INC INC PTV ID ISOLATE EA URINE BLOOD 02130 [facility] COUNT [facility] COMPLETE INC INC AUTO&AUTO DIFRNTL WBC COMPREHEN 10401 [facility] SIVE [facility] METABOLIC INC INC PANEL URNLS DIP 45892 [facility] MENDING 2 [facility] HEARTS STICK/TAB INC LET REAGENT AUTO MICROSCOP Y 3D 72019 [facility] INC INC W/INTERP& POSTPROC DIFF WORK STATION [facility] 20626 MARNI MARNI ALLG 2 LUIS ALFREDO LUIS ALFREDO IMMNTX X W/PRV ALLGIC XTRCS NJXS NEBULIZER E0570 CRISTIN AMARAL WITH 2 HOME HOME COMPRESSO MEDICAL MEDICAL R EQUIPME EQUIPME [facility] 27482 MARNI MARNI ALLG 2 LUIS ALFREDO LUIS ALFREDO IMMNTX X W/PRV ALLGIC XTRCS NJXS [facility] 49043 MARNI MARNI ALLG 2 LUIS ALFREDO LUIS ALFREDO IMMNTX X W/PRV ALLGIC XTRCS NJXS PROF [facility] 70649 MARNI MARNI ALLG 2 LUIS ALFREDO LUIS ALFREDO IMMNTX X W/PRV ALLGIC XTRCS NJXS [facility] 47550 MARNI MARNI ALLG 2 LUIS ALFREDO LUIS ALFREDO IMMNTX X W/PRV ALLGIC XTRCS NJXS RADEX 45330 LEONA MORRISUTCHER FOOT 2 MEDICAL AYLA COMPLETE IMAGING MINIMUM 3 ASS VIEWS SEDIMENTA 59266 [facility] TION RATE 2 [facility] RBC INC INC NON-AUTOM ATED BLOOD 56991 [facility] COUNT 2 [facility] COMPLETE INC INC AUTO&[place] [address] [facility] BLOOD/URI 2 [facility] C ACID INC INC URNLS DIP 46026 [facility] STICK/TAB INC INC LET REAGENT AUTO MICROSCOP Y COMPREHEN 92300 [facility] SIVE 2 [facility] METABOLIC INC INC PANEL [facility] 44015 MARNI MARNI ALLG 2 LUIS ALFREDO LUIS ALFREDO IMMNTX X W/PRV ALLGIC XTRCS NJXS PROF [facility] 70053 MARNI MARNI ALLG 2 LUIS ALFREDO LUIS ALFREDO IMMNTX X W/PRV ALLGIC XTRCS NJXS PROF [facility] 89249 MARNI MARNI ALLG 2 LUIS ALFREDO LUIS ALFREDO IMMNTX X W/PRV ALLGIC XTRCS NJXS NEBULIZER E0570 CRISTIN AMARAL WITH 2 HOME HOME COMPRESS[facility] R EQUIPME EQUIPME [facility] 60518 MARNI MARNI ALLG 2 LUIS ALFREDO LUIS ALFREDO IMMNTX X W/PRV ALLGIC XTRCS NJXS PROF [facility] 30939 MARNI MARNI ALLG 2 LUIS ALFREDO LUIS ALFREDO IMMNTX X W/PRV ALLGIC XTRCS NJXS PROF [facility] 07463 MARNI MARNI ALLG 2 LUIS ALFREDO LUIS ALFREDO IMMNTX X W/PRV ALLGIC XTRCS NJXS PROF [facility] 33812 MARNI MARNI ALLG 2 LUIS ALFREDO LUIS ALFREDO IMMNTX X W/PRV ALLGIC XTRCS NJXS PREPJ& 79421 MARNI MARNI ALLERGEN 2 LUIS ALFREDO LUIS ALFREDO IMMUNOTHE RAPY 1/OPEN SHANK COVERER ANTIGEN COMPREHEN 64188 [facility] SIVE [facility] METABOLIC INC INC PANEL URNLS DIP 83768 [facility] STICK/TAB INC INC LET REAGENT AUTO MICROSCOP Y LIPID 59561 [facility] PANEL 2 [facility] INC INC COLLECTIO 84230 [facility] N VENOUS 2 [facility] BLOOD INC INC VENIPUNCT URE BLOOD 63901 [facility] COUNT 2 [facility] COMPLETE INC INC AUTO&[place] [address] [facility] THYROID 2 [facility] STIMULATI INC INC NG HORMONE TSH CULTURE 77486 [facility] BCT 2 [facility] ISOL&PRSM INC INC PTV ID ISOLATE EA URINE CULTURE 85941 [facility] BACTERIAL 2 [facility] INC [place] [address] MARNI MARNI ALLG 2 LUIS ALFREDO LUIS ALFREDO IMMNTX X W/PRV ALLGIC XTRCS NJXS SUSCEPTIB 92603 [facility] LTY STDY 2 [facility] ANTIMICRB INC INC IAL MICRO/AGA R DILUTJ PROF SVCS 06532 MARNI MARNI ALLG 2 LUIS ALFREDO LUIS ALFREDO IMMNTX X W/PRV ALLGIC XTRCS NJXS SPMTRY 54960 MARNI MARNI W/VC 2 LUIS ALFREDO LUIS ALFREDO EXPIRATOR Y LULU W/WO MXML VOL VNTJ PROF SVCS 93349 MARNI MARNI ALLG 2 LUIS ALFREDO LUIS ALFREDO IMMNTX X W/PRV ALLGIC XTRCS NJXS PROF SVCS 47527 MARNI MARNI ALLG 2 LUIS ALFREDO LUIS ALFREDO IMMNTX X W/PRV ALLGIC XTRCS NJXS PROF SVCS 67946 MARNI MARNI ALLG 2 LUIS ALFREDO LUIS ALFREDO IMMNTX X W/PRV ALLGIC XTRCS NJXS PRESSURIZ 28577 [facility] ED/NONPRE 2 [facility] SSURIZED INC INC INHALATIO N TREATMENT NONINVASI 61415 [facility] VE 2 [facility] EAR/PULSE INC INC OXIMETRY SINGLE DETER INJECTION J2405 [facility] 2 [facility] ONDANSETR INC INC ON HCL PER 1 MG COLLECTIO 19999 [facility] N VENOUS 2 [facility] BLOOD INC INC VENIPUNCT URE NEBULIZER E0570 CRISTIN AMARAL WITH 2 HOME [facility] G0378 [facility] OBSERVATI 2 [facility] ON INC INC SERVICE PER HOUR GLUC BLD 52023 [facility] GLUC MNTR 2 [facility] DEV INC INC CLEARED FDA SPEC HOME USE BLOOD 98783 [facility] COUNT 2 [facility] COMPLETE INC INC AUTO&AUTO DIFRNTL WBC OBSERVATI 52827 [facility]ARE 2 [facility] DISCHARGE INTERNAL MED MANAGEMEN T COMPREHEN 92032 [facility] SIVE 2 [facility] METABOLIC INC INC PANEL COMPREHEN 89322 [facility] SIVE 2 [facility] METABOLIC INC INC PANEL URNLS DIP 30058 [facility] 2 [facility] STICK/TAB INC INC LET REAGENT AUTO MICROSCOP Y CUL BACT 57649 [facility] AEROBIC 2 [facility] ADDL INC INC METHS DEFINITIV E EA ISOL CUL BACT 30558 [facility] XCPT 2 [facility] URINE INC INC BLOOD/STO OL AEROBIC ISOL INITIAL 47557 [facility] MCKEMIE OBSERVATI 2 [facility] ON INTERNAL CARE/DAY MED 30 MINUTES BLOOD 19354 [facility] COUNT 2 [facility] COMPLETE INC INC AUTO&AUTO DIFRNTL WBC GLUC BLD 47014 [facility] GLUC MNTR 2 [facility] DEV INC INC CLEARED FDA SPEC HOME USE CULTURE 00656 [facility] BACTERIAL 2 [facility] INC INC QUANTTATI VE COLONY COUNT URINE URNLS DIP 50094 [facility] STICK/TAB INTERNAL INTERNAL LET RGNT MED MED NON-AUTO W/[facility] G0378 [facility] OBSERVATI 2 [facility] ON INC INC SERVICE PER HOUR COLLECTIO 91733 [facility] N VENOUS 2 [facility] BLOOD INC INC VENIPUNCT URE INJECTION J2405 [facility] 2 [facility] ONDANSETR INC INC ON HCL PER 1 MG SUSCEPTIB 86326 [facility] LTY STDY 2 [facility] ANTIMICRB INC INC IAL MICRO/AGA R DILUTJ SEDIMENTA 23261 [facility] TIKATI RATE 2 [facility] RBC INC INC NON-AUTOM ATED THERAPEUT 50678 [facility] IC 2 [facility] PROPHYLAC INC INC TIC/DX INJECTION SUBQ/IM PROF SVCS 90274 MARNI MARNI ALLG 2 LUIS ALFREDO LUIS ALFREDO IMMNTX X W/PRV ALLGIC XTRCS NJXS PROF SVCS 06678 MARNI MARNI ALLG 2 LUIS ALFREDO LUIS ALFREDO IMMNTX X W/PRV ALLGIC XTRCS NJXS LOCM Q9967 [facility] 300-399 2 [facility] MG/ML INC [place] [address] [facility] HEAD/BRAI 2 [facility] N W/O & INC INC W/CONTRAS T MATERIAL CT ORBIT 53516 [facility] SELLA/POS 2 MEDICAL AYLA T IMAGING FOSSA/EAR ASS W/O & W/[place] [address] [facility] MAXILLOFA 2 MED[facility] A[facility]LA CIAL W/[place] [address] [facility] MAXILLOFA 2 [facility] CIAL W/O INC INC & W/CONTRAS T MATERIAL COLLECTIO 58772 [facility] N VENOUS 2 [facility] BLOOD INC INC VENIPUNCT URE CREATININ 70285 [facility]ON [facility] E BLOOD 2 [place] [address] [facility] UREA 2 [facility] NITROGEN INC INC QUANTITAT ANNABELLA 3D 06544 [facility] RENDERING 2 [facility] INC INC W/INTERP& POSTPROC DIFF WORK STATION 3D 89824 [facility] RENDERING 2 [facility] W/INTERP INC INC & [place] [address] [facility] HEAD/BRAI 2 MEDICAL AYLA N [...] OSCAR BG MON OWND PT PROF SVCS 33935 MARNI MARNI ALLG 2 LUIS ALFREDO LUIS ALFREDO IMMNTX X W/[place] [address] MARNI MARNI ALLG 2 LUIS ALFREDO LUIS ALFREDO IMMNTX X W/PRV ALLGIC XTRCS NJXS FUNDUS 14066 KENZIE ESPINO PHOTOGRAP 2 JAM JAM HY W/INTERPR ETATION & REPORT VISUAL 68332 KENZIE ESPINO FIELD XM 2 JAM JAM UNI/BI W/INTERP EXTENDED EXAM PREPJ& 94214 MARNI MARNI ALLERGEN 2 LUIS ALFREDO LUIS ALFREDO IMMUNOTHE RAPY 1/OPEN SHANK COVERER ANTIGEN PROF [facility] 98565 MARNI MARNI ALLG 2 LUIS ALFREDO LUIS ALFREDO IMMNTX X W/PRV ALLGIC XTRCS NJXS DEMO&/POLLY 30304 MARNI MARNI L OF PT 2 LUIS ALFREDO LUIS ALFREDO UTILIZ AERSL GEN/NEB/I NHLR/IP PERCUTANE 27916 MARNI MANN OUS TESTS 2 LUIS ALFREDO BET W/ALLERGE ALVARADO EXTRACTS BRNCDILAT 73640 MARNI MARNI RSPSE 2 LUIS ALFREDO LUIS ALFREDO SPMTRY PRE&POST- BRNCDILAT ADMN INTRACUTA 85161 MARNI MARNI NEOUS 2 LUIS ALFREDO LUIS ALFREDO TESTS W/ALLERGE ALVARADO EXTRACTS NEBULIZER E0570 CRISTIN AMARAL WITH 2 HOME [facility] 34171 [facility] 2 [place] [facility] INTERNAL MANAGEMEN MED T 30 MIN/< SBSQ 09900 [facility] 2 [facility] CARE/DAY INTERNAL 25 MED MINUTES INITIAL 92342 [facility] 2 [facility] CARE/DAY INTERNAL 50 MED MINUTES RADIOLOGI 75475 LEONA MORRISUTCHER C EXAM 2 MEDICAL AYLA CHEST 2 IMAGING VIEWS ASS FRONTAL&L ATERAL THERAPEUT 87124 [facility] 2 [facility] PROPHYLAC INTERNAL TIC/DX MEDI INJECTION SUBQ/IM INJECTION J0696 [facility] 2 [facility] CEFTRIAXO INTERNAL NE SODIUM MEDI PER 250 MG INJECTION J3301 [facility] TRIAMCINO INTERNAL INTERNAL LONE MEDI MEDI ACETONIDE NOS 10 MG INJECTION J2405 [facility] 2 [facility] ONDANSETR INC INC ON HCL PER 1 MG THERAPEUT 17673 [facility] IC 2 [facility] INJECTION INC INC IV PUSH EACH NEW DRUG THER 07146 [facility] PROPH/DX 2 [facility] NJX IV INC INC PUSH SINGLE/1S T SBST/DRUG COMPREHEN 80990 [facility] SIVE 2 [facility] METABOLIC INC INC PANEL RADIOLOGI 28390 [facility] C 2 [facility] EXAMINATI INC INC [place] [address] [facility] TROPONIN 2 [facility] QUANTITAT INC INC ANNABELLA NATRIURET 48600 [facility] IC 2 [facility] PEPTIDE INC INC BLOOD 39005 [facility] COUNT 2 [facility] COMPLETE INC INC AUTO&AUTO DIFRNTL WBC CREATINE 85586 [facility] KINASE MB 2 [facility] FRACTION INC INC ONLY CREATINE 61516 [facility] KINASE 2 [facility] TOTAL INC INC ECG 47085 MARLO AKERS ROUTINE 2 EMERGENCY ECG SERVICES W/LEAST 12 LDS I&R ONLY ECG 17722 [facility] ROUTINE 2 [facility] ECG INC INC W/LEAST 12 LDS TRCG ONLY W/O I&R OPHTHALMO 07657 KENZIE ESPINO SCPY 2 [facility] EXTENDED RETINAL DRAWING I&R 1ST DETERMINA 51970 KENZIE ESPINO TION 2 [facility] REFRACTIV E STATE NEBULIZER E0570 CRISTIN AMARAL WITH 2 HOME HOME [facility] R EQUIPME EQUIPME ADMN SET A7003 YOUR YOUR SM VOL 2 PHARMACY [facility]ARMAC[facility] [facility] PNEUMAT NEBULIZR DISPBL NEBULIZER E0570 CRISTIN MAARAL WITH 2 HOME HOME [facility] R EQUIPME EQUIPME PHARM G0333 YOUR YOUR DISPEN 2 PHARMACY PHARMACY FEE INHAL [employer] RX; INITIAL 30-DAY SUPPLY ALBUTEROL J7613 YOUR YOUR INHAL 2 PHARMACY PHARMACY NON-CP [employer] PROD THRU DME U DOSE 1 MG RADIOLOGI 28088 LEONA Kumar EXAM 2 MEDICAL AYLA CHEST 2 IMAGING VIEWS ASS FRONTAL&L ATERAL NONINVASI 52000 [facility]EN VE 2 [facility] EAR/PULSE INTERNAL OXIMETRY MEDI SINGLE DETER PRESSURIZ 58049 [facility] ED/NONPRE 2 [facility] [place]URIZED [place] [address] [facility] INFUSION 2 [facility] THERAPY/P INC INC ROPHYLAXI S /DX 1ST TO 1 HR THERAPEUT 84090 [facility] IC 2 [facility] INJECTION INC INC IV PUSH EACH NEW DRUG IAADI 47970 [facility] INFFLUENZ 2 [facility] A A VIRUS INC INC IAADI 61308 [facility] INFLUENZA 2 [facility] B VIRUS INC INC RADIOLOGI 09496 [facility] C EXAM 2 [facility] CHEST 2 INC INC VIEWS FRONTAL&L ATERAL CREATINE 11329 [facility] KINASE 2 [facility] TOTAL INC INC CREATINE 18265 [facility] KINASE MB 2 [facility] FRACTION INC INC ONLY BLOOD 14245 [facility] COUNT 2 [facility] COMPLETE INC INC AUTO&[place] [address] [facility] TROPONIN 2 [facility] QUANTITAT INC INC ANNABELLA COMPREHEN 14729 [facility] SIVE 2 [facility] METABOLIC INC INC PANEL LANCETS A4259 [...] SPECIAL SPECIAL PT; INTRMED 3-10 MIN LARYNGOSC 03632 EAR, NOSE SHASHY OPY 1 AND SOBEIDA FLEXIBLE THROAT DIAGNOSTI SPECIAL C GLUC BLD 41463 [facility] GLUC MNTR 1 [facility] DEV INC INC CLEARED FDA SPEC HOME USE ESOPHAGOG 12072 C SOPHIE LYONS ASTRODUOD 1 ELOY GAMBOA ENOSCOLTEN [facility] [place] [address] [facility] INFUSION 1 [facility] THERAPY INC [place] PROP[place]X [place] [address] [facility] INFUSION 1 [facility] THERAPY/P INC INC ROPHYLAXI S /DX 1ST TO 1 HR LARYNGOSC 87762 EAR, NOSE SHASHY OPY 1 AND SOBEIDA FLEXIBLE THROAT DIAGNOSTI SPECIAL C COLLECTIO 41918 COMBINED COMBINED N VENOUS 1 PHYSICIAN PHYSICIAN BLOOD S LA S LA VENIPUNCT URE HEMOGLOBI 40292 COMBINED COMBINED N 1 PHYSICIAN PHYSICIAN GLYCOSYLA S LA S LA ML A1C BASIC 72290 COMBINED COMBINED METABOLIC 1 PHYSICIAN PHYSICIAN [place] [address] COMBINED COMBINED BLOOD/URI 1 PHYSICIAN PHYSICIAN C ACID S LA S LA 3D 89293 [facility] RENDERING 1 [facility] INC INC W/INTERP& POSTPROC DIFF WORK STATION CT SOFT 06994 [facility] TISSUE 1 [facility] NECK W/O INC INC CONTRAST MATERIAL CONTINUOU E0601 CRISTIN AMARAL S 1 HOME HOME POSITIVE MEDICAL MEDICAL AIRWAY EQU[place] [address] [facility] THYROID 1 [facility] STIMULATI INC INC NG HORMONE TSH COLLECTIO 73573 [facility] N V[facility]OUS [facility] [place] [address] [facility] FERRITIN 1 [facility] INC INC BLOOD 17596 [facility] COUNT 1 [facility] COMPLETE INC INC AUTO&AUTO DIFRNTL WBC COMPREHEN 63030 [facility] SIVE 1 [facility] [place] [address] DERMATOLO NARGIS II SURG 1 GY LENORA [...] SUPPLIES SUPPLIES HIGH CALIBRATO R SOLUTION/ [facility] A4258 M E D M E D WERED 1 SUPPLIES SUPPLIES DEVICE FOR LANCET EACH REPL DEYSI A4233 M E D M E D ALKALINE 1 SUPPLIES SUPPLIES NOT J CELL OSCAR BG MON OWND PT BLOOD 30097 [facility] COUNT 1 [facility] COMPLETE INC INC AUTO&AUTO DIFRNTL WBC GROUND A0425 [facility] MILEAGE 1 AMBULANCE AMBULANCE PER SERVICE SERVICE STATUTE MILE AMBULANCE A0429 [facility] SERVICE 1 AMBULANCE AMBULANCE BLS SERVICE SERVICE EMERGENCY TRANSPORT COMPREHEN 01968 [facility] SIVE 1 [facility] METABOLIC INC INC PANEL THER 05099 [facility] PROPH/DX 1 [facility] NJX IV INC INC PUSH SINGLE/1S T SBST/DRUG RADIOLOGI 11805 LEONA Kumar EXAM 1 MEDICAL AYLA CHEST 2 IMAGING VIEWS ASS FRONTAL&L ATERAL PRESSURIZ 39255 [facility] ED/NONPRE 1 [facility] SSURIZED INC INC INHALATIO N TREATMENT THERAPEUT 65615 [facility] IC 1 [facility] INJECTION INC INC IV PUSH EACH NEW DRUG SUSCEPTIB 43635 [facility] LTY STDY 1 [facility] ANTIMICRB INC INC IAL MICRO/AGA R DILUTJ CULTURE 51688 [facility] BACTERIAL 1 [facility] INC INC QUANTTATI VE COLONY COUNT URINE CULTURE 10310 [facility] BCT 1 [facility] ISOL&PRSM INC INC PTV ID ISOLATE EA URINE CHIROPRAC 60993 KAVYA HOFF TIC 1 JANET JANET MANIPULAT ANNABELLA [place] SPINAL 1-2 REGIONS CONTINUOU E0601 CRISTIN CRISTIN S 1 HOME HOME POSITIVE MEDICAL MEDICAL AIRWAY EQUIPME EQUIPME PRESSURE DEVICE NON-INVAS 41901 [facility]ONA MORRISUTCHER ANNABELLA 1 MEDICAL ALYA PHYSIOLOG IMAGING IC STUDY ASS EXTREMITY 3 LEVLS DUP-SCAN 72290 LEONA GARCHER XTR VEINS 1 MEDICAL AYLA COMPLETE IMAGING ASS BILATERAL STUDY DUP-SCAN 20287 [facility] XTR VEINS 1 [facility] INC INC UNILATERA L/LIMITED STUDY DEBRIDEME 02942 PAWSAT PAWSAT NT NAIL 1 MAR MAR ANY METHOD 6/> CHIROPRAC 50752 KAVYA HOFF TIC 1 JANET JANET MANIPULAT ANNABELLA [place] SPINAL 1-2 REGIONS CONTINUOU E0601 CRISTIN CRISTIN S 1 HOME HOME POSITIVE MEDICAL MEDICAL AIRWAY EQUIPME EQUIPME PRESSURE DEVICE CULTURE 05120 [facility] BCT 1 [facility] ISOL&PRSM INC INC PTV ID ISOLATE EA URINE CULTURE 15144 [facility] BACTERIAL 1 [facility] INC INC QUANTTATI [place] [address] [facility] AMYLASE 1 [facility] [place] [address] [facility] LIPASE 1 [facility] INC INC BLOOD 24230 [facility] COUNT 1 [facility] COMPLETE INC INC AUTO&AUTO DIFRNTL WBC URNLS DIP 42427 [facility] 1 [facility] STICK/TAB INC INC LET REAGENT AUTO MICROSCOP Y COMPREHEN 69757 [facility] SIVE 1 [facility] METABOLIC INC INC PANEL THERAPEUT 82022 [facility] IC 1 [facility] PROPHYLAC INC INC TIC/DX INJECTION SUBQ/IM SUSCEPTIB 50741 [facility] LTY STDY 1 [facility] ANTIMICRB INC INC IAL MICRO/AGA R DILUTJ CHIROPRAC 17248 KAVYA HOFF TIC 1 JANET JANET MANIPULAT ANNABELLA [place] SPINAL 1-2 REGIONS HEMOGLOBI 60799 [facility] N 1 [facility] [place]YCOS[place] [address] [facility] THYROID 1 [facility] STIMULATI INC INC NG HORMONE TSH E-STIM G0283 [facility] 1/> AREAS 1 [facility] OTH THAN INC INC WND CARE PART TX PLAN COLLECTIO 32628 [facility] N VENOUS 1 [facility] BLOOD INC INC VENIPUNCT URE COMPREHEN 19914 [facility] SIVE 1 [facility] METABOLIC INC INC PANEL THERAPEUT 94270 [facility] IC PX 1/> 1 [facility] AREAS INC INC EACH 15 MIN EXERCISES APPL 56164 [facility] MODALITY 1 [facility] 1/> AREAS INC INC ULTRASOUN D EA 15 MIN LIPID 67395 [facility] PANEL 1 [facility] INC INC 3D 13357 LEONA MORRISUTCHER RENDERING 1 MEDICAL AYLA IMAGING W/INTERP& [place] [address] LEONA CORONEL ABDOMEN & 1 MEDICAL AYLA PELVIS IMAGING W/CONTRAS ASS T MATERIAL COMPUTER- 44780 [facility] AIDED 1 [facility] DETECTION INC INC SCREENING MAMMOGRAP HY SCREENING G0202 [facility] 1 [facility] MAMMOGRAP INC INC HY DURGA INCL CAD WHEN PERFORMD E-STIM G0283 [facility] 1/> AREAS 1 [facility] OTH THAN INC INC WND CARE PART TX PLAN THERAPEUT 19047 [facility] IC PX 1/> 1 [facility] AREAS INC INC EACH 15 MIN EXERCISES APPL 39426 [facility] MODALITY 1 [facility] 1/> AREAS INC INC ULTRASOUN D EA 15 MIN APPL 01010 [facility] MODALITY 1 [facility] 1/> AREAS INC INC ULTRASOUN D EA 15 MIN THERAPEUT 25058 [facility] IC PX 1/> 1 [facility] AREAS INC INC EACH 15 MIN EXERCISES E-STIM G0283 [facility] BRNADON 1/> AREAS 1 [facility] OTH THAN INC INC WND CARE PART TX PLAN CHIROPRAC 08944 KAVYA HOFF TIC 1 JANET JANET MANIPULAT ANNABELLA [place] SPINAL 1-2 REGIONS E-STIM [id number] [facility] RABAGOON 1/> AREAS 1 [facility] OTH THAN INC INC WND CARE PART TX PLAN THERAPEUT 55845 [facility] TAYL[place] IC PX 1/> 1 [facility] AREAS INC INC EACH 15 MIN EXERCISES PHYSICAL 61347 [facility] THERAPY 1 [facility] EVALUATIO INC INC N APPL 13971 [facility] MODALITY 1 [facility] 1/> AREAS INC INC ULTRASOUN D EA 15 MIN CHIROPRAC 70150 KAVYA DONGDING TIC 1 JANET JANET MANIPULAT ANNABELLA [place] SPINAL 1-2 REGIONS CONTINU E0601 CRISTIN AMARAL S 1 HOME HOME POSITIVE MEDICAL MEDICAL AIRWAY EQUIPME EQUIPME PRESSURE DEVICE RADEX 57872 [facility] 1 [facility]LA W/WO IMAGING GLUCAGON/ ASS DELAY IMAGES W/KUB CHIROPRAC 91069 KAVYA DONGDING TIC 1 JANET JANET MANIPULAT ANNABELLA [place] SPINAL 1-2 REGIONS CHIROPRAC 22691 KAVYA DONGDING TIC 1 JANET JANET MANIPULAT [...] T STRIPS HOME BLD GLU MON-50 CHIROPRA 89323 [place] TIC 1 AJNET JANET MANIPULAT ANNABELLA [place] SPINAL 1-2 REGIONS CHIROPRAC 84534 [place] TIC 1 JANET JANET MANIPULAT ANNABELLA TX SPINAL 1-2 REGIONS CHIROPRA 06891 [place] TIC 1 JANET JANET MANIPULAT ANNABELLA TX SPINAL 1-2 REGIONS CHIROPRA 68358 [place] TIC 1 JANET JANET MANIPULAT ANNABELLA TX SPINAL 1-2 REGIONS CHIROPRA 53378 [place] TIC 1 JANET JANET MANIPULAT ANNABELLA TX SPINAL 1-2 REGIONS TUBING A7037 CIRSTIN AMARAL USED WITH 1 HOME HOME POSITIVE [...] E AIRWAY EQUIPME EQUIPME PRESSURE DEVICE CHIROPRA 79524 [place] TIC 1 JANET JNAET MANIPULAT ANNABELLA [place] SPINAL 1-2 REGIONS CHIROPRAC 06787 [place] TIC 1 JANET JANET MANIPULAT ANNABELLA [place] SPINAL 1-2 REGIONS POLYSOM 12296 [facility] 6/>YRS 1 DEIDRA DEIDRA SLEEP W/CPAP 4/> ADDL JENNIE ATTND POLYSOM 49059 [facility] 6/>YRS 1 DEIDRA DEIDRA SLEEP 4/> ADDL JENNIE ATTND POLYSOM 80341 [facility] T[facility] 6/>YRS 1 [facility] SLEEP 4/> INC INC ADDL JENNIE ATTND MRI 18834 [facility] CORONEL SPINAL 1 MEDICAL [facility] CANAL IMAGING LUMBAR ASS W/O CONTRAST MATERIAL 3D 66320 [facility] CORONEL RENDERING 1 MEDICAL AYLA W/INTERP IMAGING & ASS POSTPROCE SS SUPERVISI ON COMPREHEN 24446 [facility] [place] SIVE 1 [facility] METABOLIC INC INC PANEL BLOOD 05966 [facility] COUNT 1 [facility] COMPLETE INC INC AUTO&AUTO DIFRNTL WBC COLLECTIO 57006 [facility] N VENOUS 1 [facility] BLOOD INC INC VENIPUNCT URE CREATINE 61382 [facility] KINASE 1 [facility] [place] [address] [facility] THYROID 1 [facility] STIMULATI INC INC NG HORMONE TSH SEDIMENTA 35179 [facility] TION RATE 1 [facility] RBC INC INC NON-AUTOM ATED RADIOLOGI 14391 [facility] CORONEL C EXAM 1 [facility] CHEST 2 IMAGING VIEWS ASS FRONTAL&L ATERAL THER 84671 [facility] PROPH/DX 1 [facility] NJX IV INC INC PUSH SINGLE/1S T SBST/DRUG RADEX 47374 [facility] CORONEL SPINE 1 [facility] LUMBOSACR IMAGING AL 2/3 ASS VIEWS THERAPEUT 73058 [facility] IC 1 [facility] INJECTION INC INC IV PUSH EACH NEW DRUG URNLS DIP 15529 [facility] TYALOR 1 [facility] STICK/TAB INC INC LET REAGENT AUTO MICROSCOP Y CULTURE 08981 [facility] BACTERIAL 1 [facility] INC INC QUANTTATI VE COLONY COUNT URINE AMBULANCE A0429 [facility] SERVICE 1 AMBULANCE AMBULANCE BLS SERVICE SERVICE EMERGENCY TRANSPORT GROUND A0425 [facility] 1 AMBULANCE AMBULANCE PER SERVICE SERVICE STATUTE MILE COMPREHEN 28699 [facility] SIVE 1 [facility] HOSP METABOLIC INC INC PANEL BLOOD 99951 [facility] [place] COUNT 1 [facility] COMPLETE INC INC AUTO&AUTO DIFRNTL WBC COLLECTIO 06459 [facility] N VENOUS 1 [facility] BLOOD INC INC VENIPUNCT URE CYANOCOBA 87685 [facility] PRATEEK 1 [facility] VITAMIN INC INC B-12 HEMOGLOBI 37127 [facility] N 1 [facility] GLYCOSYLA INC INC ML A1C ECG 53897 [facility] FAJARDO ROUTINE [address] [facility] W/LEAST P 12 LDS I&R ONLY RADIOLOGI 83274 [place] [facility] C 1 MEDICAL AYLA EXAMINATI IMAGING ON CHEST ASS SINGLE VIEW FRONTAL GROUND A0425 [facility] 1 AMBULANCE AMBULANCE PER SERVICE SERVICE STATUTE MILE AMB A0427 [facility] SERVICE 1 AMBULANCE AMBULANCE ALS SERVICE SERVICE EMERGENCY TRANSPORT LEVEL 1 TECHNETIU A9502 BRANDON Wayne TC-99M 1 [facility] TETROFOSM INC INC IN DX PER STUDY DOSE MYOCARDIA 65630 BR[facility]ON Yoon SPECT 1 [facility] MULTIPLE INC INC STUDIES CV STRS 15243 BR[facility] T[facility] TST 1 [facility] XERS&/OR INC INC RX CONT ECG TRCG ONLY 3D 54154 [facility] [place] [facility] RENDERING 1 MEDICAL AYLA IMAGING W/INTERP& ASS POSTPROC DIFF WORK STATION 3D 77878 BRANDON TAYLOR RENDERING 1 [facility] W/INTERP INC INC & POSTPROCE SS SUPERVISI ON CT SOFT 96279 [facility] TISSUE 1 MEDICAL MEDICAL NECK IMAGING IMAG[place] [address] BRANDON TAYLOR HEAD/BRAI 1 [facility] N W/O & [place] INC W/[place] [address] LEONA CORONEL HEAD/BRAI 1 MEDICAL AYLA N IMAGING W/CONTRAS ASS T MATERIAL CREATININ 48130 BRANDON TAYLOR E BLOOD 1 [facility] INC INC COLLECTIO 00442 BRANDON TAYLOR N VENOUS 1 [facility] [place] [address] BRANDON TAYLOR UREA 1 [facility] NITROGEN INC INC QUANTITAT ANNABELLA GLUC BLD 38770 BRANDON TAYLOR GLUC MNTR 1 [facility] DEV INC INC CLEARED FDA SPEC HOME USE COLONOSCO 16431 C SOPHIE LYONS PY FLX DX 1 EOLY GAMBOA W/FLORENCIO [place] [address] BRANDON TAYLOR INFUSION 1 [facility] THERAPY INC INC PROPHYLAX IS/DX EA HOUR ANES 68229 [facility] LOWER 1 ANESTH INTESTINE OF [place] [address] BRNADON TAYLOR INFUSION 1 [facility] THERAPY/P INC INC ROPHYLAXI S /DX [...] J CELL OSCAR BG MON OWND PT DRYDEN- A4258 M E D M E D WERED 1 SUPPLIES SUPPLIES DEVICE FOR LANCET EACH RADIOLOGI 03035 LEONA CORONEL C EXAM 1 MEDICAL AYLA CHEST 2 IMAGING VIEWS ASS FRONTAL&L ATERAL OPHTH 80645 [facility] 1 VISION XM&EVAL COMPRHNSV ESTAB PT 1/> COLLECTIO 30138 BRANDON TAYLOR N VENOUS 1 [facility] BLOOD INC INC VENIPUNCT URE BLOOD 85441 BRANDON TAYLOR COUNT 1 [facility] COMPLETE INC INC AUTO&AUTO DIFRNTL WBC BASIC 57314 BRANDON TAYLOR METABOLIC 1 [facility] PANEL INC INC CALCIUM TOTAL RADIOLOGI 41463 [place] [place] [facility] C EXAM 1 MEDICAL AYLA CHEST [...] SPRING-PO A4258 [facility] 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 A4258 SECURE SECURE WERED [...] MEDICAL MEDICAL ML VOICE SYNTHESIZ ER RADIOLOGI 37464 [place] [facility], C 0 MEDICAL FREDO EXAMINATI IMAGING ON KNEE 3 ASSOCIATE VIEWS S RADIOLOGI 48397 BR[facility]ON TAY[facility]OR C 0 [facility] EXAMINATI INC INC ON CHEST SINGLE VIEW FRONTAL CULTURE 44072 BRAND[facility] TAY[facility] BACTERIAL 0 [facility] INC INC QUANTTATI VE COLONY COUNT URINE URNLS DIP 94439 [facility] 0 [facility] STICK/TAB INC INC LET REAGENT AUTO MICROSCOP Y BASIC 24559 BRANDON TAYLOR METABOLIC 0 [facility] PANEL INC INC CALCIUM TOTAL BLOOD 29170 BR[facility]ON TAYLOR COUNT 0 [facility] COMPLETE INC INC AUTO&AUTO DIFRNTL WBC HEMOGLOBI 45235 BR[facility] T[facility] N 0 [facility] [place] [address] BRANDON TAYLOR INFUSION 0 [facility] MEM [...] SCR LAB LAB AUTO&MNL RSCR PHYS IADNA 89045 PATHOLOGY PATHOLOGY PAPILLOMA 9 & & VIRUS CYTOLOGY CYTOLOGY HUMAN LAB LAB AMPLIFIED PROBE TQ RADIOLOGI 86716 [facility] CORONEL EXAM 9 MEDICAL FREDO CHEST 2 IMAGING VIEWS ASSOCIATE FRONTAL&L S ATERAL PRESSURIZ 99851 [facility] PRISCILLA, ED/NONPRE 9 [facility] SSURIZED INTERNAL INHALATIO MED N TREATMENT ALBUTEROL [...] RENT; EQUIPMENT EQUIPMENT FLWMTR HUMIDFR&M ASK PRESSURIZ 75793 [facility] [facility], ED/NONPRE 9 [facility] SSURIZED INTERNAL INHALATIO MED N TREATMENT IAADI 45194 BRANDON TAYLOR INFLUENZA 9 [facility] B VIRUS INC INC IAADI 35935 BRANDON BRANDON INFFLUENZ 9 [facility] A A VIRUS INC INC URNLS DIP 07588 [facility] 9 [facility] STICK/TAB INC INC LET REAGENT AUTO MICROSCOP Y CULTURE 75256 BRANDON TAYLOR BACTERIAL 9 [facility] INC INC QUANTTATI VE COLONY COUNT URINE APPL 74656 [place] ESCOBAR, MODALITY 9 FAMILY LILIYA C 1/> AREAS CHIROPRAC TRACTION TIC MECHANICA L APPL 31883 [place] ESCOBAR, MODALITY 9 FAMILY LILIYA C 1/> AREAS CHIROPRAC ELEC TIC STIMJ EA 15 MIN THERAPEUT 33372 [place] ESCOBAR, IC PX 1/> 9 FAMILY LILIYA C AREAS CHIROPRAC EACH 15 TIC MIN EXERCISES CHIROPRAC 29337 [place] ESCOBAR, TIC 9 FAMILY LILIYA C MANIPULAT CHIROPRAC ANNABELLA TX TIC SPINAL 3-4 REGIONS CHIROPRAC 99105 [place] ESCOBAR, TIC 9 FAMILY LILIYA C MANIPULAT CHIROPRAC ANNABELLA TX TIC SPINAL 3-4 REGIONS THERAPEUT 96389 [place] ESCOBAR, IC PX 1/> 9 FAMILY LILIYA C AREAS CHIROPRAC EACH 15 TIC MIN EXERCISES APPL 75092 [place] ESCOBAR, MODALITY 9 FAMILY LILIYA C 1/> AREAS CHIROPRAC ELEC TIC STIMJ EA 15 MIN APPL 04136 [place] ESCOBAR, MODALITY 9 FAMILY LILIYA C 1/> AREAS CHIROPRAC TRACTION TIC MECHANICA L APPL 77690 [place] ESCOBAR, MODALITY 9 FAMILY LILIYA C 1/> AREAS CHIROPRAC TRACTION TIC MECHANICA L APPL 75422 [place] ESCOBAR, MODALITY 9 FAMILY LILIYA C 1/> AREAS CHIROPRAC ELEC TIC STIMJ EA 15 MIN THERAPEUT 53570 [place] ESCOBAR, IC PX 1/> 9 FAMILY LILIYA C AREAS CHIROPRAC EACH 15 TIC MIN EXERCISES CHIROPRAC 06180 [place] ESCOBAR, TIC 9 FAMILY LILIYA C MANIPULAT CHIROPRAC ANNABELLA TX TIC SPINAL 3-4 REGIONS CHIROPRAC 30946 [place] ESCOBAR, TIC 9 FAMILY LILIYA C MANIPULAT CHIROPRAC ANNABELLA TX TIC SPINAL 3-4 REGIONS THERAPEUT 48300 EVELYN ESCOBAR, IC PX 1/> 9 FAMILY LILIYA C AREAS CHIROPRAC EACH 15 TIC MIN EXERCISES APPL 44260 EVELYN ESCOBAR, MODALITY 9 FAMILY LILIYA C 1/> AREAS CHIROPRAC ELEC TIC STIMJ EA 15 MIN APPL 84638 EVELYN ESCOBAR, MODALITY 9 FAMILY LILIYA C 1/> AREAS CHIROPRAC TRACTION TIC MECHANICA L SELF-CARE 69417 EVELYN ESCOBAR, /HOME 9 FAMILY LILIYA C MGMT CHIROPRAC TRAINING TIC EACH 15 MINUTES INJ J0702 LEANA DUEÑAS, BETAMETHA 9 CHELSY W CHELSY W SONE ACETATE & PHOSPHATE 3 MG INITIAL 89798 [facility] 9 Y OF CHERYL CARE/DAY [place] A 70 INTERNAL MINUTES MEDICINE ECG 92219 BUNNY JOHNSON, ROUTINE 9 MEDICAL SIMBA Kumar ECG SERV W/LEAST FOUNDATIO 12 LDS I&R ONLY RADIOLOGI 70740 BUNNY SAENZ C EXAM 9 MEDICAL FORTINO G CHEST 2 SERV VIEWS FOUNDATIO FRONTAL&L ATERAL PRTBLE E0431 EVELYN RIVAS GASEOUS 9 HOME HOME O2 SYS MEDICAL MEDICAL RENT; EQUIPMENT EQUIPMENT FLWMTR HUMIDFR&M ASK O2 CONC 1 E1390 EV[place]N RIVAS [place] 9 HOME HOME 85%/>02 MEDICAL MEDICAL CONC AT EQUIPMENT EQUIPMENT PRSC FLW RATE OBSERVATI 96263 [place], ON CARE 9 [place] A DISCHARGE INTERNAL MED MANAGEMEN T INITIAL 46153 [place], OBSERVATI 9 [place] A ON INTERNAL CARE/DAY MED 30 MINUTES COMPREHEN 43075 BRANDON TAYLOR SIVE 9 [facility] METABOLIC INC INC PANEL URNLS DIP 26642 [facility] 9 [facility] STICK/TAB INC INC LET REAGENT AUTO MICROSCOP Y CULTURE 40940 BRANDON TAYLOR BACTERIAL 9 [facility] INC INC QUANTTATI VE COLONY COUNT URINE BLOOD 96149 BRANDON TAYLOR COUNT 9 [facility] COMPLETE INC INC AUTO&AUTO DIFRNTL WBC ECG 24611 CARDIOLOG SUMMERS, ROUTINE 9 Y KHURRAM A ECG ASSOCIATE W/LEAST S OF 12 [facility] I&R ONLY SBSQ 73924 [facility] 9 CARE/DAY 15 MINUTES SBSQ 06244 [facility] 9 CARE/DAY 15 MINUTES PRTBLE E0431 EVELYN RIVAS GASEOUS 9 HOME HOME O2 SYS MEDICAL MEDICAL RENT; EQUIPMENT EQUIPMENT FLWMTR HUMIDFR&M ASK O2 CONC 1 E1390 EVELYN RIVAS [place] 9 HOME HOME 85%/>02 MEDICAL MEDICAL CONC AT EQUIPMENT EQUIPMENT PRSC FLW RATE SBSQ 56215 [facility] 9 CARE/DAY 15 MINUTES SBSQ 30758 [facility] 9 CARE/DAY 15 MINUTES SBSQ 05247 [facility] 9 CARE/DAY 15 MINUTES ECG 15573 CARDIOLOG D[place]ONT ROUTINE 9 Y , D L ECG ASSOCIATE W/LEAST S OF 12 [facility] I&R ONLY INITIAL 56033 [facility] 9 CARE/DAY 30 MINUTES GROUND A0425 [facility] MILEAGE 9 AMBULANCE AMBULANCE PER SERVICE SERVICE STATUTE MILE AMBULANCE A0429 [facility] SERVICE 9 AMBULANCE AMBULANCE BLS SERVICE SERVICE EMERGENCY TRANSPORT RADIOLOGI 83004 José CACERES 9 MEDICAL FREDO EXAMINATI IMAGING ON CHEST ASSOCIATE SINGLE S VIEW FRONTAL AMB A0422 [facility] OXYGEN&O2 9 AMBULANCE AMBULANCE SUPPLIES SERVICE SERVICE LIFE SUSTAININ G SITUATION GLUC BLD 92497 BRANDON TAYLOR GLUC MNTR 9 [facility] DEV INC INC CLEARED FDA SPEC HOME USE KETONE 30058 BRANDON TAYLOR BODIES 9 [facility] SERUM INC INC QUALITATI VE BLOOD 73585 BR[facility]ON TAYLOR COUNT 9 [facility] COMPLETE INC INC AUTO&AUTO DIFRNTL WBC BASIC 74595 BR[facility]ON TAYLOR METABOLIC 9 [facility] [place] [address] BRANDON TAYLOR INFUSION 9 [facility] THERAPY/P INC INC ROPHYLAXI S /DX 1ST TO 1 HR THERAPEUT 89202 BRANDON TAYLOR IC 9 [facility] PROPHYLAC INC INC TIC/DX INJECTION SUBQ/IM O2 CONC 1 E1390 EVELYN RIVAS [place] 9 HOME HOME 85%/>02 MEDICAL MEDICAL CONC AT EQUIPMENT EQUIPMENT PRSC FLW RATE PRTBLE E0431 EVELYN RIVAS GASEOUS 9 HOME HOME O2 SYS MEDICAL MEDICAL RENT; EQUIPMENT EQUIPMENT FLWMTR HUMIDFR&M ASK GROUND A0425 [facility] MILEAGE 9 AMBULANCE AMBULANCE PER SERVICE SERVICE STATUTE MILE INITIAL 68085 CHUY DIAZ 9 [facility] ON INTERNAL CARE/DAY MED 30 MINUTES AMB A0427 JULEE LADD SERVICE 9 AMBULANCE AMBULANCE ALS SERVICE SERVICE EMERGENCY TRANSPORT LEVEL 1 HOSPITAL G0378 BR[facility]ON TAYLOR OBSERVATI 9 [facility] ON INC INC SERVICE PER HOUR GLUC BLD 64695 BRANDON TAYLOR GLUC MNTR 9 [facility] DEV INC INC CLEARED FDA SPEC HOME USE AMB A0422 JULEE LADD OXYGEN&O2 9 AMBULANCE AMBULANCE SUPPLIES SERVICE [place] [address] BRANDON TAYLOR INFUSION 9 [facility] THERAPY/P INC INC ROPHYLAXI S /DX 1ST TO 1 HR CREATINE 66839 BRANDON TAYLOR KINASE MB 9 [facility] [place] [address] BR[facility]ON TAYLOR TROPONIN 9 [facility] QUANTITAT INC INC ANNABELLA BLOOD 01632 BR[facility] TAYLOR COUNT 9 [facility] COMPLETE INC INC AUTO&AUTO DIFRNTL WBC ECG 83840 BRANDON TAYLOR ROUTINE 9 [facility] ECG INC INC W/LEAST 12 LDS TRCG ONLY W/O I&R CREATINE 48592 BRANDON TAYLOR KINASE 9 [facility] TOTAL INC INC ECG 89984 BRANDON FAJARDO ROUTINE [address] [facility] W/LEAST PROF SERV 12 LDS I&R ONLY BASIC 77447 BRANDON TAYLOR METABOLIC 9 [facility] PANEL INC INC CALCIUM TOTAL COMPREHEN 73517 BR[facility] TAY[facility]OR SIVE 9 [facility] METABOLIC INC INC PANEL RADIOLOGI 60383 BR[facility]ON TAYLOR C 9 [facility] EXAMINATI INC INC ON CHEST SINGLE VIEW FRONTAL 3D 42049 BRANDON TAYLOR RENDERING 9 [facility] INC INC W/INTERP& POSTPROC DIFF WORK STATION LOCM Q9967 BRANDON TAYLOR [phone] [facility] MG/ML INC INC IODINE CONCENTRA TION PER ML CT SOFT 74362 BRANDON TAYLOR TISSUE 9 [facility] NECK INC INC W/CONTRAS T MATERIAL RADEX 16685 BRANDON TAYLOR ESOPHAGUS 9 [facility] INC INC NORMAL A4256 DIABETES DIABETES LOW AND 9 [facility] CALIBRATO R SOLUTION/ [place] [address] BRANDON TAYLOR THYROXINE 9 [facility] TOTAL INC INC CREATININ 00456 BR[facility] TAY[facility]OR E BLOOD 9 [facility] INC INC COLLECTIO 70439 BR[facility] TAY[facility]OR N VENOUS 9 [facility] BLOOD INC INC VENIPUNCT URE CALCIUM 05177 BRANDON TAYLOR TOTAL 9 [place] [address] BRANDON TAYLOR UREA 9 [facility] NITROGEN [place] [address] BRANDON TAYLOR THYROID 9 [facility] STIMULATI INC INC NG HORMONE TSH PRTBLE E0431 EVELYN RIVAS GASEOUS 9 HOME HOME O2 SYS MEDICAL MEDICAL RENT; EQUIPMENT EQUIPMENT FLWMTR HUMIDFR&M ASK O2 CONC 1 E1390 EVELYN SCOTTMIGUEL DEL PORT 9 HOME HOME 85%/>02 MEDICAL MEDICAL CONC AT EQUIPMENT EQUIPMENT PRSC FLW RATE COMPREHEN 69933 BR[facility] TAY[facility]OR SIVE 9 [facility] METABOLIC INC INC PANEL LIPID 15948 BR[facility]ON TAYLOR PANEL 9 [facility] INC INC COLLECTIO 49152 BRANDON TAYLOR N VENOUS 9 [facility] BLOOD INC INC VENIPUNCT URE RADIOLOGI 21780 BRANDON TAYLOR C 9 [facility] EXAMINATI INC INC ON KNEE 3 VIEWS RADEX 06897 BRANDON TAYLOR ANKLE 9 [facility] COMPLETE INC INC MINIMUM 3 VIEWS PRTBLE E0431 EVELYN RIVAS GASEOUS 9 HOME HOME O2 SYS MEDICAL MEDICAL RENT; EQUIPMENT EQUIPMENT FLWMTR HUMIDFR&M ASK O2 CONC 1 E1390 EVELYN RIVAS [place] 9 HOME HOME 85%/>02 MEDICAL MEDICAL CONC [place] [address] BRANDON TAYLOR INFUSION 9 [facility] THERAPY INC INC PROPHYLAX IS/DX EA HOUR ANES 87792 [facility] 9 ANESTH KANNAN Ortega [facility] ENDOSCOPY DISTAL DUODENUM COLONOSCO 65556 BUNNY LORD, PY 9 MEDICAL [place] W/BIOPSY SERV SINGLE/MU FOUNDATIO LTIPLE GLUC BLD 30389 BRANDON TAYLOR GLUC MNTR 9 [facility] DEV INC [place] [address] BRANDON TAYLOR INFUSION 9 [facility] THERAPY/P INC INC ROPHYLAXI S /DX 1ST TO 1 [place] [address] PATHOLOGY PATHOLOGY SURG 9 & & PATHOLOGY CYTOLOGY CYTOLOGY LAB LAB GROSS&SHANTHI ROSCOPIC EXAM INJECTION J2405 BRANDON TAYLOR 9 [facility] ONDANSETR INC INC ON HCL PER 1 MG THERAPEUT 25523 BRANDON TAYLOR IC 9 [facility] INJECTION INC INC IV PUSH EACH NEW DRUG THER 90871 BRANDON TAYLOR PROPH/DX 9 [facility] NJX IV INC INC PUSH SINGLE/1S T SBST/[place] [address] BRANDON TAYLOR TROPONIN 9 [facility] QUANTITAT INC INC ANNABELLA CREATINE 75506 BRANDON TAYLOR KINASE MB 9 [facility] [place] [address] BRANDON TAYLOR AMYLASE 9 [facility] INC INC BLOOD 07649 BR[facility] TAY[facility]OR COUNT 9 [facility] COMPLETE INC INC AUTO&AUTO DIFRNTL WBC ECG 23775 BRANDON CHOWDHURY, ROUTINE 9 [facility] W/LEAST PROF SERV 12 LDS I&R ONLY CREATINE 93489 BR[facility] TAY[facility]OR KINASE 9 [facility] TOTAL INC INC ECG 32184 BR[facility] TAYLOR ROUTINE 9 [facility] ECG INC INC W/LEAST 12 LDS TRCG ONLY W/O I&[place] [address] BR[facility] TAY[facility]OR LIPASE 9 [facility] INC INC COMPREHEN 45902 BR[facility] TAY[facility]OR SIVE 9 [facility] METABOLIC INC INC PANEL URNLS DIP 59481 [facility] TAY[facility]OR 9 [facility] STICK/TAB INC INC LET REAGENT AUTO MICROSCOP Y AMB A0427 [facility] SERVICE 9 AMBULANCE AMBULANCE ALS SERVICE SERVICE EMERGENCY TRANSPORT LEVEL 1 GROUND A0425 [facility] MILEAGE 9 AMBULANCE AMBULANCE PER SERVICE SERVICE STATUTE MILE AMB A0422 [facility] OXYGEN&O2 9 AMBULANCE AMBULANCE SUPPLIES SERVICE SERVICE LIFE SUSTAININ G SITUATION CULTURE 56836 BRANDON TAYLOR BCT 9 [facility] ISOL&PRSM INC INC PTV ID ISOLATE EA URINE BLOOD 65049 BR[facility] TAYLOR COUNT 9 [facility] COMPLETE INC INC AUTO&AUTO DIFRNTL WBC KETONE 04173 BRANDON TAYLOR BODIES 9 [facility] SERUM INC INC QUALITATI VE CULTURE 38487 BR[facility]ON TAY[facility]OR BACTERIAL 9 [facility] INC INC QUANTTATI VE COLONY COUNT URINE URNLS DIP 01927 [facility] TAYLOR 9 [facility] STICK/TAB INC INC LET REAGENT AUTO MICROSCOP Y COMPREHEN 30752 [facility] TAY[facility]OR SIVE 9 [facility] METABOLIC INC INC PANEL THERAPEUT 75882 BR[facility] T[facility] IC 9 [facility] INJECTION [place] [address] BRANDON TAYLOR INFUSION 9 [facility] THERAPY/P INC INC ROPHYLAXI S /DX 1ST TO 1 HR SUSCEPTIB 28929 BRANDON TAYLOR LTY STDY 9 [facility] ANTIMICRB INC INC IAL MICRO/AGA R DILUTJ O2 CONC 1 E1390 EVELYN RIVAS [place] 9 HOME HOME 85%/>02 MEDICAL MEDICAL CONC AT EQUIPMENT EQUIPMENT PRSC FLW RATE PRTBLE E0431 EVELYN RIVAS GASEOUS 9 HOME HOME O2 SYS MEDICAL MEDICAL RENT; EQUIPMENT EQUIPMENT FLWMTR HUMIDFR&M ASK GLUC BLD 29223 BRANDON TAYLOR GLUC MNTR 9 [facility] DEV INC INC CLEARED FDA SPEC HOME USE THERAPEUT 20488 BRANDON TAYLOR IC 9 [facility] PROPHYLAC INC INC TIC/DX INJECTION SUBQ/IM LANCETS A4259 DIABETES DIABETES PER BOX 9 [facility] BLD GLU A4253 DIABETES DIABETES TEST/REAG 9 [facility] T STRIPS [facility] HOME BLD GLU MON-50 PRTBLE E0431 [...] 9 [facility] BLD GLU A4253 DIABETES DIABETES TEST/REAG 9 [facility] T STRIPS [facility] HOME BLD GLU MON-50 NORMAL A4256 DIABETES DIABETES LOW AND 9 [facility] CARE CLUB HIGH [facility] CALIBRATO R SOLUTION/ CHIPS O2 CONC 1 E1390 EVELYN RIVAS DEL PORT 8 HOME HOME 85%/>02 MEDICAL MEDICAL CONC AT EQUIPMENT EQUIPMENT PRSC FLW RATE PRTBLE E0431 EVELYN RIVAS GASEOUS 8 HOME HOME O2 SYS MEDICAL MEDICAL RENT; EQUIPMENT EQUIPMENT FLWMTR HUMIDFR&M ASK LANCETS A4259 DIABETES DIABETES PER BOX 8 [facility] BLD GLU A4253 DIABETES DIABETES TEST/REAG 8 [facility] CARE [facility] T STRIPS [facility] HOME BLD GLU SUN- GASTRIC 29213 [facility] 8 MEDICAL FREDO IMAGING IMAGING STUDY ASSOCIATE S O2 CONC 1 E1390 EVELYN RIVAS DEL PORT 8 HOME HOME 85%/>02 MEDICAL MEDICAL CONC AT EQUIPMENT EQUIPMENT PRSC FLW RATE PRTBLE E0431 EVELYN RIVAS GASEOUS 8 HOME HOME O2 SYS MEDICAL MEDICAL RENT; EQUIPMENT EQUIPMENT FLWMTR HUMIDFR&M ASK LANCETS A4259 DIABETES DIABETES PER BOX 8 [facility] 100 [facility] BLD GLU A4253 DIABETES DIABETES TEST/REAG 8 [facility] C[facility] T STRIPS [facility] HOME BLD GLU BASIC 45405 BRANDON TAYLOR METABOLIC 8 [facility] [place] [address] BRANDON TAYLOR THER 8 [facility] PROPH/DX INC INC 1ST >1 HR GLUC BLD 76913 BRANDON TAYLOR GLUC MNTR 8 [facility] DEV INC INC CLEARED FDA SPEC HOME USE URNLS DIP 47523 BR[facility] TAYLOR 8 [facility] STICK/TAB INC INC LET REAGENT AUTO MICROSCOP Y BLOOD 37501 BRANDON TAYLOR COUNT 8 [facility] COMPLETE INC INC AUTO&[place] NFUS 52918 BRANDON TAYLOR THER 8 [facility] PROPH/DX INC INC EA HR PRTBLE E0431 EVELYN RIVAS GASEOUS 8 HOME HOME O2 SYS MEDICAL MEDICAL RENT; EQUIPMENT EQUIPMENT FLWMTR HUMIDFR&M ASK O2 CONC 1 E1390 EVELYN GUZMAN PORT 8 HOME HOME 85%/>02 MEDICAL MEDICAL CONC [place] [address] BRANDON TAYLOR HEAD/BRAI 8 [facility] N W/O INC INC CONTRAST MATERIAL 3D 31748 LEONA MÉNDEZ, RENDERING 8 MEDICAL RACHEL P W/INTERP IMAGING & ASSOCIATE [place] 81375 BRANDON TAYLOR THER 8 [facility] PROPH/DX INC INC 1ST >1 HR EGD 97271 BRANDON TYALOR TRANSORAL 8 [facility] BIOPSY INC INC SINGLE/MU LTIPLE ANES 11007 [facility] 8 ANESTH ERLIN L ENDOSCOPY OF THE PROXIMAL [place] TO DUODENUM GLUC BLD 47431 BRANDON RABAGOON GLUC MNTR 8 [facility] DEV INC INC CLEARED FDA SPEC HOME USE CUL 18359 [facility] PRSMPTV 8 [facility] PTHGNC INC INC ORGANISMS SCR DNS CHART SPECIAL 65974 PATHOLOGY PATHOLOGY STAIN 8 & & GROUP 1 CYTOLOGY CYTOLOGY MICROORGA LAB LAB [facility] I&[place] [address] PATHOLOGY PATHOLOGY SURG 8 & & PATHOLOGY CYTOLOGY CYTOLOGY LAB LAB GROSS&SHANTHI ROSCOPIC EXAM ESOPHAGOG 4516 [facility] ASTRODUOD 8 [facility] ENOSCOPY INC INC WITH CLOSED BIOPSY LANCETS A4259 DIABETES DIABETES PER BOX 8 CARE CLUB [facility] NORMAL A4256 DIABETES DIABETES LOW AND 8 CARE CLUB CARE CLUB HIGH [facility] CALIBRATO R SOLUTION/ CHIPS BLD GLU A4253 DIABETES DIABETES TEST/REAG 8 CARE CLUB CARE CLUB T STRIPS [facility] HOME BLD GLU MON-50 O2 CONC 1 E1390 EVELYN RIVAS DEL PORT 8 HOME HOME 85%/>02 MEDICAL MEDICAL CONC AT EQUIPMENT EQUIPMENT PRSC FLW RATE PRTBLE E0431 EVELYN RIVAS GASEOUS 8 HOME HOME O2 SYS MEDICAL MEDICAL RENT; EQUIPMENT EQUIPMENT FLWMTR HUMIDFR&M ASK ACUTE 42250 [facility] HEPATITIS 8 [facility] PANEL INC INC COMPREHEN 72875 [facility] SIVE 8 [facility] [place] [address] [facility] [place] AMYLASE 8 [place] [address] [facility] LIPASE 8 [facility] INC INC HEPATITIS 96273 [facility] Boyd CORE 8 [facility] ANTIBODY INC INC HBCAB TOTAL HEPATITIS 57436 [facility] Boyd SURF 8 [facility] ANTIBODY INC INC HBSAB HEPATITIS 19301 [facility] A 8 [facility] ANTIBODY INC INC HAAB SUSCEPTIB 29786 [facility] LTY STDY 8 [facility] ANTIMICRB INC INC IAL MICRO/AGA R DILUTJ BLOOD 77314 [facility] COUNT 8 [facility] COMPLETE INC INC AUTO&AUTO DIFRNTL WBC CULTURE 12737 [facility] BCT 8 [facility] ISOL&PRSM INC INC PTV ID ISOLATE EA URINE COMPREHEN 42603 [facility] SIVE 8 [facility] METABOLIC INC INC PANEL URNLS DIP 81547 [facility] 8 [facility] STICK/TAB INC INC LET REAGENT AUTO MICROSCOP Y RADEX ABD 09966 LEONA CORONEL COMPL 8 MEDICAL FREDO AQT ABD IMAGING W/S/E/D ASSOCIATE VIEWS 1 S VIEW CH CULTURE 59145 [facility] BACTERIAL 8 [facility] MEM [...] LOW AND 8 CARE CLUB CARE CLUB [facility] CALIBRATO R SOLUTION/ CHIPS LANCETS A4259 DIABETES DIABETES PER BOX 8 CARE CLUB [facility] BLD GLU A4253 DIABETES DIABETES TEST/REAG 8 CARE CLUB CARE CLUB [facility] [employer] [employer] [facility] HOME BLD GLU MON-50 HOME E0607 DIABETES DIABETES BLOOD 8 CARE CLUB CARE CLUB GLUCOSE [facility] MONITOR SPRING-PO A4258 DIABETES DIABETES WERED 8 CARE CLUB CARE CLUB [employer] [facility] FOR LANCET EACH O2 CONC 1 E1390 EVELYN RIVAS DEL PORT 8 HOME HOME 85%/>02 MEDICAL MEDICAL CONC AT EQUIPMENT EQUIPMENT PRSC FLW RATE PRTBLE E0431 EVELYN RIVAS GASEOUS 8 HOME HOME O2 SYS MEDICAL MEDICAL RENT; EQUIPMENT EQUIPMENT FLWMTR HUMIDFR&M ASK LIPID 24212 [facility] PANEL [facility] INJECTION 66820 [facility] CARDIAC 8 ORTH, CATHJ L CARDIOLOG MARIANA VENTR/L Y ATR CONSULTAN ANGIOGRAP T H COLLECTIO 16273 [facility] N VENOUS 8 [facility] BLOOD [facility] HOSP VENIPUNCT URE L HRT 01593 [facility] CATHETERI 8 [facility] ZATION [facility] [place] [address] [facility] C-CATHJ 8 [facility] F/SLCTV C HOSP HOSP ANGRPH I SI&R 03610 [facility] F/NJX PX 8 ORTH, DURING CARDIOLOG MARIANA C-CATHJ Y VENTR&/AT CONSULTAN R ANGRPH T I SI&R 71395 [facility] F/NJX PX 8 [facility] D[facility]ING [facility] HOSP C-CATHJ PULM&/OR SELECT GLUCOSE 04309 [facility] BLOOD 8 [facility] REAGENT [facility]OSP STRIP LEFT 3722 [facility] HEART 8 [facility] CARDIAC [facility] HOSP CATHETERI ZATION ANGIOCARD 8853 [facility] IOGRAPHY 8 [facility] OF LEFT HOSP HOSP HEART STRUCTURE S CORONARY 8856 [facility] ARTERIOGR 8 [facility] APHY [facility] HOSP USING TWO CATHETERS RADIOLOGI 00426 CEN[facility]AL ZAMUDIO, C EXAM 8 RADIOLOGY ROB CHEST 2 ASSOC C VIEWS FRONTAL&L ATERAL ECG 84120 [facility] ROUTINE 8 ORTH, ECG CARDIOLOG MARIANA W/LEAST Y 12 LDS CONSULTAN I&R ONLY T ECG 53371 [facility] R[facility]INE 8 [facility] ECG HOSP HOSP W/LEAST 12 LDS TRCG ONLY W/O I&R COLLECTIO 45022 [facility] N VENOUS 8 [facility] BLOOD HOSP HOSP VENIPUNCT URE BLOOD 43149 [facility] COUNT 8 [facility] COMPLETE HOSP HOSP AUTOMATED BASIC 03029 [facility] METABOLIC 8 [facility] PANEL HOSP HOSP CALCIUM TOTAL SMALL A7004 [...] RENT; EQUIPMENT EQUIPMENT FLWMTR HUMIDFR&M ASK CYTP 09388 [facility] WESLY, CERV/VAG 8 [place] INC MAR P AUTO THIN LAYER PREP MNL SCREEN CREATINE 83041 BR[facility]ON TAYLOR KINASE MB 8 [facility] FRACTION INC INC ONLY BLOOD 38493 [facility] COUNT 8 [facility] COMPLETE INC INC AUTO&AUTO DIFRNTL WBC AMB A0422 JULEE LADD OXYGEN&O2 8 AMBULANCE AMBULANCE SUPPLIES SERVICE SERVICE [place] [address] [facility] TROPONIN 8 [facility] QUANTITAT INC INC ANNABELLA ECG 63922 BR[facility] FAJARDO ROUTINE 8 [facility], ECG HOSPITAL KANNAN F W/LEAST PROF SERV 12 LDS I&R ONLY RHYTHM 05-18-200 79492 [facility] ECG 1-3 8 [facility] LEADS INC INC TRACING ONLY W/O I&R ECG 38086 [facility] T[facility] ROUTINE 8 [facility] ECG INC INC W/LEAST 12 LDS TRCG ONLY W/O I&R CREATINE 54846 [facility] KINASE 8 [facility] TOTAL INC INC RADIOLOGI 35828 [facility] MEDICAL FREDO EXAMINATI IMAGING ON CHEST ASSOCIATE SINGLE S VIEW FRONTAL BASIC 81139 [facility] METABOLIC 8 [facility] PANEL INC INC CALCIUM TOTAL GROUND A0425 [facility]ULANCE AMBULANCE PER SERVICE SERVICE STATUTE MILE AMB A0427 [facility] SERVICE 8 AMBULANCE AMBULANCE ALS SERVICE SERVICE EMERGENCY TRANSPORT LEVEL 1 O2 CONC 1 E1390 EVELYN RIVAS [place] 8 HOME HOME 85%/>02 MEDICAL MEDICAL CONC AT EQUIPMENT EQUIPMENT PRSC FLW RATE PRTBLE E0431 EVELYN RIVAS GASEOUS 8 HOME HOME O2 SYS MEDICAL MEDICAL RENT; EQUIPMENT EQUIPMENT FLWMTR HUMIDFR&M ASK DOPPLER 51279 [facility] T[facility] ECHOCARD 8 [facility] PULSE INC INC WAVE W/SPECTRA L DISPLAY ECHO 50122 BRANDON JAUREGUIANIYA TRANSTHOR 8 [facility] R-T 2D [facility] W/WO PROF SERV M-MODE REC COMP DOP 98148 [facility] ECHOCARD 8 [facility] COLOR INC INC FLOW VELOCITY MAPPING RADIOLOGI 63447 [facility] ACOSTA EXAM 8 MEDICAL RACHEL P CHEST 2 IMAGING VIEWS ASSOCIATE FRONTAL&L S ATERAL INITIAL 74695 [place] SCOTTY OBSERVATI 8 [facility], ON [facility]NAL [facility] CARE/DAY MED 30 MINUTES FLUOR 13315 CARIN DEL ROSARIO, NEEDLE/CA 8 ERVIN Nunn TH SPINE/PAR ASPINAL DX/[place]X [address] CARIN [place] ROSARIO, ANES&/STR 8 ERVIN Pichardo JT NRV CRV/THRC EA LVL NJX 22187 HARRIES, HARRIES, ANES&/STR 8 ERVIN HuffmanT NRV CRV/THRC 1 LVL ECG 39105 BRANDON HEATHERMIChristiano ROUTINE 8 [facility] KANNAN Ortega W/LEAST PROF SERV 12 LDS I&R ONLY 25 25477 [facility] HYDROXY 8 [facility] INCLUDES INC INC FRACTIONS IF PERFORMED ECG 86720 [facility] ROUTINE 8 [facility]OS[facility] ECG INC INC W/LEAST 12 LDS TRCG ONLY W/O I&R THYROID 75508 [facility] HORM 8 [facility] UPTK/THYR INC [place] [address] [facility] THYROID 8 [facility]OS[facility] STIMULATI INC INC NG HORMONE TSH BLOOD 51536 [facility] T[facility] COUNT 8 [facility] COMPLETE INC INC AUTO&AUTO DIFRNTL WBC COMPREHEN 22517 [facility] T[facility] SIVE 8 [facility] [address] [facility] THYROXINE 8 [facility] TOTAL INC INC THROMBOPL 80429 [facility] ASTIN 8 [facility] TIME INC INC PARTIAL PLASMA/WH OLE BLOOD PROTHROMB 02769 BRANDON TAYL[facility] IN TIME 8 [facility]OS[facility] INC INC PRTBLE E0431 EVELYN RIVAS GASEOUS 8 HOME HOME O2 SYS MEDICAL MEDICAL RENT; EQUIPMENT EQUIPMENT FLWMTR HUMIDFR&M ASK O2 CONC 1 E1390 EVELYN RIVAS DEL PORT 8 HOME HOME 85%/>02 MEDICAL MEDICAL CONC AT EQUIPMENT EQUIPMENT PRSC FLW RATE APPL 54566 KAVYA HOFF, MODALITY 8 ERVIN Huffman 1/> AREAS 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 L CHIROPRAC 58632 KAVYA HOFF, TIC 8 ERVIN Huffman MANIPULAT ANNABELLA [place] SPINAL 3-4 REGIONS APPLICATI 62985 KAVYA HOFF, ON 8 ERVIN Huffman MODALITY 1/> AREAS HOT/COLD PACKS THERAPEUT 70200 KAVYA HOFF, ACTVITY 8 ERVIN Huffman DIRECT PT CONTACT EACH 15 MIN THERAPEUT 32782 KAVYA HOFF, ACTVITY 8 ERVIN Huffman DIRECT PT CONTACT EACH 15 MIN APPLICATI 30538 KAVYA HOFF, ON 8 ERVIN Huffman MODALITY 1/> AREAS HOT/COLD PACKS CHIROPRAC 10398 KAVYA HOFF, TIC 8 ERVIN Huffman MANIPULAT ANNABELLA TX SPINAL 3-4 REGIONS APPL 16456 KAVYA HOFF, MODALITY 8 ERVIN Huffman 1/> AREAS 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 L APPL 04694 KAVYA HOFF, MODALITY 8 ERVIN Huffman 1/> AREAS 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 L CHIROPRAC 40982 KAVYA HOFF, TIC 8 ERVIN Hufmfan MANIPULAT ANNABELLA TX SPINAL 3-4 REGIONS APPLICATI 98401 KAVYA HOFF, ON 8 ERVIN Huffman MODALITY 1/> AREAS HOT/COLD PACKS THERAPEUT 70865 KAVYA HOFF, ACTVITY 8 ERVIN Huffman DIRECT PT CONTACT EACH 15 MIN MYOCRD 03819 BR[facility] T[facility] PRFUJ STD 8 [facility] EJEC FXJ INC INC MYOCRD 83989 [place] HAWKROSITA, PRFUJ STD 8 HEART & NEZAR M WALL VASCULAR MOTION ASSOC QUAL/CASSANDRA STD MYOCRD 63751 [place] HAWKROSITA PRFUJ IMG 8 HEART & NEZAR M TOMOG VASCULAR SPECT OPEN SHANK COVERER ASSOC STD OBSERVATI 58940 [place] RAEANN, ON CARE 8 [facility] DISCHARGE INTERNAL MED MANAGEMEN T GLUC BLD 47953 BR[facility] TAYL[facility] GLUC MNTR 8 [facility] DEV INC INC CLEARED FDA SPEC [facility] G0378 [facility] OBSERVATI 8 [facility] ON INC INC SERVICE PER HOUR CV STRS 63837 [place] IRMA, TST 8 HEART & NEZAR M XERS&/OR VASCULAR RX CONT ASSOC ECG W/O I&R CV STRS 84446 [facility] TST 8 [facility] XERS&/OR INC INC RX CONT ECG TRCG ONLY CV STRS 97020 LEONA SOLIS, TST 8 HEART & NEZAR M XERS&/OR VASCULAR RX CONT ASSOC ECG I&R ONLY TECHNETIU A9500 [facility] TAY[facility] M TC-99M 8 [facility] SESTAMIBI INC INC DX PER STUDY DOSE ECG 03836 BRANDON CARY, ROUTINE 8 [facility] W/LEAST PROF SERV 12 LDS I&R ONLY IV NFUS 61918 BR[facility] TAYL[facility] THER 8 [facility] PROPH/DX INC INC EA HR CREATINE 94982 BR[facility] TAY[facility]OR KINASE 8 [facility] TOTAL INC INC RHYTHM 05298 BRANDON TAYLOR ECG 1-3 8 [facility] LEADS INC INC TRACING ONLY W/O I&R ECG 98443 BRANDON TAYLOR ROUTINE 8 [facility] ECG INC INC W/LEAST 12 LDS TRCG ONLY W/O I&R HOSPITAL G0378 BR[facility] T[facility] OBSERVATI 8 [facility]OS[facility] ON INC INC SERVICE PER HOUR BLOOD 98187 BR[facility]ON TAYLOR COUNT 8 [facility] COMPLETE INC INC AUTO&AUTO DIFRNTL WBC CREATINE 86763 BRANDON TAYLOR KINASE MB 8 MEM HOS[facility] [place] [address] BR[facility]ON TAYLOR TROPONIN 8 MEM [facility]OS[facility] QUANTITAT INC INC ANNABELLA GLUC BLD 61773 BRANDON TAYLOR GLUC MNTR 8 [facility] DEV INC INC CLEARED FDA SPEC HOME USE RADIOLOGI 48735 BRANDON TAYLOR C 8 [facility] EXAMINATI INC INC ON CHEST SINGLE VIEW FRONTAL AMB A0427 [facility] SERVICE 8 AMBULANCE AMBULANCE ALS SERVICE SERVICE EMERGENCY TRANSPORT LEVEL 1 IV NFS [address]005 BRANDON TAYLOR THER 8 [facility] H[facility] PROPH/DX INC INC 1ST >1 HR BASIC 43434 BRANDON BRANDON METABOLIC 8 [facility] PANEL INC INC CALCIUM TOTAL LIPID 56326 BR[facility] TAYLOR PANEL 8 [facility]OS[facility] INC INC INITIAL 54916 [place] SCOTTY OBSERVATI 8 [facility], ON INTERNAL KANNAN F CARE/DAY MED 30 MINUTES GROUND A0425 [facility] 8 AMBULANCE AMBULANCE PER SERVICE SERVICE STATUTE MILE O2 CONC 1 E1390 EVELYN RIVAS DEL PORT 8 HOME HOME 85%/>02 MEDICAL MEDICAL CONC AT EQUIPMENT EQUIPMENT PRSC FLW RATE PRTBLE E0431 EVELYN RIVAS GASEOUS 8 HOME HOME O2 SYS MEDICAL MEDICAL RENT; EQUIPMENT EQUIPMENT FLWMTR HUMIDFR&M ASK COMPREHEN 15185 BR[facility] T[facility] SIVE 8 [facility] [place] [address] BRANDON TAYL[facility] THYROXINE 8 [facility] TOTAL INC INC HEMOGLOBI 46791 BRANDON TAYLOR N 8 [facility] H[facility] GLYCOSYLA INC INC ML A1C BLOOD 39696 BRANDON TAYLOR COUNT 8 [facility] COMPLETE INC INC AUTO&[place] [address] BRANDON TAYL[facility] THYROID 8 MEM HOS[facility] STIMULATI [place] [address] BRANDON TAYLOR FOLIC 8 MEM HOSP [facility] [address] BRANDON TAYLOR THIAMINE- 8 MEM HOS[facility] VITAMIN INC INC B-1 CYANOCOBA 06794 BRANDON TAYLOR PRATEEK 8 [facility] H[facility] VITAMIN INC INC B-12 SYPHILIS 79666 BRANDON TAYLOR TEST 8 [facility] H[facility] NON-TREPO INC INC NEMAL ANTIBODY QUAL NDL EMG 2 67601 SAM[place]A [place], XTR W/WO 8 CHUCK WOODS RELATED PARASPINA L AREAS NRV CNDJ 75865 SAM[place]A EN[place], AMPLT&LAT 8 CHUCK HAYWARDY EA NRV MOTOR W/F-WAVE STD NRV CNDJ 89455 SAM[place]A [place], AMPLITUDE 8 CHUCK WOODS & LATENCY EACH NERVE SENSORY RHEUMATOI 26330 BRANDON Pichardo FACTOR 8 [facility] H[facility] QUANTITAT INC INC ANNABELLA PRTBLE E0431 EVELYN RIVAS GASEOUS 8 HOME HOME O2 SYS MEDICAL MEDICAL RENT; EQUIPMENT EQUIPMENT FLWMTR HUMIDFR&M ASK O2 CONC 1 E1390 EVELYN RIVAS DEL PORT 8 HOME HOME 85%/>02 MEDICAL MEDICAL CONC AT EQUIPMENT EQUIPMENT PRSC FLW RATE Encounters Encounter Start End Date Code Location Performer Type Date [facility] BRANDON Cooley 7 [facility] OUTPATIEN [facility] BRANDON Cooley 7 [facility] BRANDON Cooley 7 [facility]PATIEN [facility] BRANDON Cooley 7 [facility] BRANDON Cooley 7 [facility] EMERGENCY 88200 BRANDON Cooley 7 [facility] T VISIT LOW/MODER SEVERITY HOSPITAL BRANDON Cooley 7 [facility] EMERGENCY 28815 BRANDON DEPT 7 7 [facility] VISIT [facility] HIGH [facility]VERITY& THREAT [facility] BRANDON Cooley 7 [facility] OUTPATIEN [facility] EMERGENCY 54755 BRANDON Cooley 7 [facility] T VISIT LOW/MODER SEVERITY HOSPITAL BRANDON Cooley 7 [facility] OUTPATIEN [facility] OFFICE 40507 [facility] 7 7 PARTNERS T VISIT OF BELLE 25 CO MINUTES EMERGENCY 30497 BRANDON Cooley 7 [facility] T VISIT HIGH/URGE NT SEVERITY HOSPITAL BRANDON Cooley 7 [facility] OUTPATIEN [facility] BRANDON Cooley 7 [facility] BRANDON - OTHER 7 7 [facility] BRANDON - 7 7 [facility]PATIEN [facility] BRANDON - 7 7 [facility] OUTPATIEN [facility] OFFICE 10977 [facility] CLARIBEL OUTPATIEN 7 7 PHYSICIAN T VISIT GROUP 15 MINUTES OFFICE 48990 [facility] P[facility] OUTPATIEN 7 7 MEDICAL ASTELLANO T NEW 30 SERV S MINUTES [facility] 7 7 [facility] OUT[facility] BRANDON - 7 7 [facility] OUTPATIEN [facility] OFFICE 48224 [facility] 7 PHYSICIAN T VISIT S GROUP 15 MINUTES EMERGENCY 61375 [facility] 7 7 [facility] T VISIT PHYS HIGH/URGE NT SEVERITY EMERGENCY 64766 LEIGHTON KESSLER DEPT 7 7 PHYSICIAN VISIT S, PLLC HIGH SEVERITY& THREAT [facility] BRANDON - 7 7 [facility] OUTPATIEN [facility] T EMERGENCY 48819 BRANDON 7 7 [facility] DEPARTMEN [facility] T VISIT LOW/MODER SEVERITY HOSPITAL BRANDON - 7 7 [facility] OUTPATIEN [facility] EMERGENCY 91944 LEIGHTON PEDROZA DEPT 7 7 PHYSICIAN VISIT S, PLLC HIGH SEVERITY& THREAT FUNCJ EMERGENCY 78426 BRANDON 7 7 [facility] DEPARTMEN [facility] T VISIT HIGH/URGE NT SEVERITY HOSPITAL BRANDON - 7 7 [facility] OUTPATIEN [facility] H[facility]PITAL BRANDON - OTHER 7 7 [facility] EMERGENCY 93485 BRANDON 7 7 [facility] T VISIT MODERATE SEVERITY EMERGENCY 90278 [facility] 7 PHYSICIAN DEPARTMEN S, [facility] T VISIT HIGH/URGE NT SEVERITY HOSPITAL BRANDON - 7 7 [facility] OUTPATIEN [facility] OFFICE 42097 BRANDON LUIS OUTPATIEN [address] MINUTES [facility] BRANDON - OTHER 7 7 [facility] EMERGENCY 20188 LEIGHTON SINGH DEPT 7 7 PHYSICIAN VISIT S, [facility] HIGH SEVERITY& THREAT [facility] BRANDON - 7 7 [facility] OUTPATIEN [facility] EMERGENCY 63579 BRANDON 7 7 [facility] T VISIT LOW/MODER SEVERITY HOSPITAL BRANDON - 7 7 [facility] OUTPATIEN [facility] EMERGENCY 61447 LEIGHTON PEDROZA DEPT 7 7 PHYSICIAN VISIT S, [facility] HIGH SEVERITY& THREAT FUNJ EMERGENCY 86665 BRANDON 7 7 [facility] DEPARTMEN [facility] T VISIT LOW/MODER SEVERITY HOSPITAL BRANDON - 7 7 [facility] OUTPATIEN [facility] HOSPITAL BRANDON - OTHER 7 7 [facility] BRANDON - 7 7 [facility]PATIEN [facility] BRANDON - 7 7 [facility]PATIEN [facility] BRANDON - 6 6 [facility] OUTPATIEN [facility] T EMERGENCY 38586 LEIGHTON PEDROZA 6 6 PHYSICIAN DEPARTMEN S, [facility] T VISIT HIGH/URGE NT SEVERITY EMERGENCY 40084 BRANDON 6 6 MEM HOSP DEPARTMEN [facility] T VISIT LOW/MODER SEVERITY HOSPITAL BRANDON - 6 6 [facility] OUTPATIEN [facility] T OFFICE 61026 [facility] LORIE [facility] 6 6 PHYSICIAN T VISIT S GROUP 25 MINUTES HOSPITAL BRANDON - 6 6 [facility] INPATIENT [facility] HOSPITAL BRANDON - 6 6 [facility] OUTPATIEN [facility] EMERGENCY 99343 LEIGHTON PEDROZA 6 6 PHYSICIAN ILIR DANIELS S [facility] T VISIT HIGH/URGE NT SEVERITY EMERGENCY 51305 BRANDON [address] [facility] VISIT LOW/MODER SEVERITY HOSPITAL BRANDON - 6 6 [facility] OUTPATIEN [facility] OFFICE 26862 [facility] 6 6 PHYSICIAN T NEW 45 S GROUP MINUTES EMERGENCY 56197 LEIGHTON PEDROZA 6 6 PHYSICIAN ILIR DANIELS S [facility] T VISIT HIGH/URGE NT SEVERITY EMERGENCY 43363 LEIGHTON JHAVERI 6 6 [facility] T VISIT HIGH/URGE NT SEVERITY HOSPITAL BRANDON - 6 6 [facility] OUTPATIEN [facility] EMERGENCY 60724 BRANDON [address] [facility] VISIT LOW/MODER SEVERITY HOSPITAL BRANDON - 6 6 [facility] OUTPATIEN [facility] OFFICE 44472 [facility] OUTPATI[facility] 6 6 FOOT & T NEW 30 ANKLE CE MINUTES HOSPITAL BRANDON - 6 6 [facility] OUTPATIEN [facility] HOSPITAL BRANDON - 6 6 [facility] OUTPATIEN [facility] EMERGENCY 93649 LEIGHTON KESSLER 6 6 PHYSICIAN [facility] T VISIT HIGH/URGE NT SEVERITY EMERGENCY 42509 BRANDON [address] [facility] VISIT LOW/MODER SEVERITY HOSPITAL BRANDON - 6 6 [facility] OUTPATIEN [facility] HOSPITAL BRANDON - 6 6 [facility] OUTPATIEN [facility] EMERGENCY 12043 LEIGHTON MARTINEZ, 6 6 PHYSICIAN [facility] S, [facility] T VISIT HIGH/URGE NT SEVERITY EMERGENCY 87590 BRANDON 6 6 [facility] T VISIT LOW/MODER SEVERITY OFFICE 84292 [facility] KEREN ALMAGUER OUTPATIEN 6 6 PHYSICIAN T VISIT S GROUP 10 MINUTES EMERGENCY 19165 BRANDON 6 6 [facility] T VISIT LOW/MODER SEVERITY HOSPITAL BRANDON - 6 6 [facility] T EMERGENCY 81829 LEIGHTON MAC 6 6 PHYSICIAN Meng [facility] S, [facility] T VISIT HIGH/URGE NT SEVERITY EMERGENCY 32266 LEIGHTON KESSLER 6 6 PHYSICIAN [facility] T VISIT HIGH/URGE NT SEVERITY HOSPITAL BRANDON - 6 6 [facility] EMERGENCY 21721 BRANDON 6 6 [facility] T VISIT LIMITED/M INOR PROB OFFICE 88208 [facility] HERNANDEZ [facility] 6 6 PHYSICIAN JERRY T VISIT S GROUP 10 MINUTES HOSPITAL BRANDON - 6 6 [facility] OUTPATIEN [facility] HOSPITAL BRANDON - 6 6 [facility] EMERGENCY 85724 BRANDON 6 6 [facility] T VISIT LOW/MODER SEVERITY OFFICE 35531 EVELYN HALLMAN JAMES [facility] 6 6 [facility] 10 MINUTES HOSPITAL BRANDON - OTHER 6 6 [facility] BRANDON - OTHER 6 6 [facility] BRANDON - OTHER 5 5 [facility] EMERGENC[facility] 32933 LEIGHTON KESSLER DEPT 5 5 PHYSICIAN SHANTHI VISIT S, [facility] HIGH SEVERITY& THREAT FUNCJ EMERGENCY 40966 BRANDON 5 5 [facility] DEPARTMEN [facility] T VISIT MODERATE SEVERITY HOSPITAL BRANDON - 5 5 [facility] OUTPATIEN [facility] EMERGENCY 69863 LEIGHTON KESSLER 5 5 [facility] DE[facility]MEN [facility] T VISIT HIGH/URGE NT SEVERITY HOSPITAL BRANDON - 5 5 [facility] OUTPATIEN [facility] EMERGENCY [id number] LEIGHTON MAC 5 5 PHYSICIAN [facility] T VISIT HIGH/URGE NT SEVERITY OFFICE [id number] [facility] 5 5 [facility] T [facility]ISIT INTERNAL 15 MED MINUTES EMERGENCY 75513 LEIGHTON KESSLER DEPT 5 5 PHYSICIAN SHANTHI VISIT [facility] HIGH SEVERITY& THREAT [facility] EMERGENCY [id number] [facility] 5 5 [facility] DEPARTMEN [facility] T VISIT [facility]IGH/URGE NT SEVERITY [facility] - 5 5 [facility] OUTPATIEN [facility]PITAL [facility] 5 5 [facility] OUTPATIEN [facility]PITAL [facility] - 5 5 [facility] OUTPATIEN [facility] - 5 5 [facility] OUTPATIEN [facility] EMERGENCY 67964 LE[place] KESSLER 5 5 [facility] , [facility] T VISIT HIGH/URGE NT SEVERITY [facility] - 5 5 [facility] OUTPATIEN [facility] EMERGENCY [id number] [facility] 5 5 [facility] DEPARTMEN [facility] T VISIT LOW/MODER SEVERITY OFFICE 73773 [facility] T VISIT SERV ACH 25 FOUNDATIO MINUTES [facility]OSPITAL [facility] - 5 5 [facility] OUTPATIEN [facility] UNIVERSIT - 5 5 [facility] - OTHER 5 5 [facility] - 5 5 [facility] OUTPATIEN [facility] T EMERGENCY 62761 BR[facility]ON MARTINEZ, 5 5 [facility] T VISIT P HIGH/URGE NT SEVERITY OFFICE 12475 [place] [facility] T VISIT SERV ACH 25 FOUNDATIO MINUTES [facility] - 5 5 [facility]INE [facility] EMERGENCY 96260 [facility]ARD [facility] 5 5 [facility] T VISIT P HIGH/URGE NT SEVERITY OFFICE [id number] [facility] PHYSICIAN JAM T VISIT S GROUP 25 MINUTES [facility]OSPITAL [facility] - 4 4 [facility] EM[facility] 82673 [facility] 4 4 [facility] EMERGENCY T VISIT PHYS MODERATE SEVERITY EMERGENCY 45628 [facility] 4 4 [facility] T VISIT LOW/MODER SEVERITY OFFICE 81770 EAR, NOSE SHASHY OUTPATIEN 4 4 AND SOBEIDA T VISIT THROAT 25 SPECIAL MINUTES OFFICE 82194 MARNI MARNI OUTPATIEN 4 4 LUIS ALFREDO LUIS ALFREDO T VISIT 25 MINUTES OFFICE 46086 EAR, NOSE SHASHY OUTPATIEN 4 4 AND SOBEIDA T VISIT THROAT 25 SPECIAL MINUTES [facility] - 4 4 [facility] OUTPATIEN [facility] HOSPITAL UNIVERSIT - 4 4 [facility] T OFFICE [address]52 [place] [facility] AYANANE T VISIT SERV ACH 25 FOUNDATIO MINUTES EMERGENCY 96062 [facility] 4 [facility] EM[facility] T VISIT PHYS HIGH/URGE NT SEVERITY HOSPITAL UNIVERSIT - 4 4 [facility] OFFICE 32848 [facility] OUTPATIEN 4 4 DERMATOLO DERMATOLO T NEW 30 GY GY MINUTES HOSPITAL [facility] 4 4 [facility] 4 4 [facility] BR[facility] - 4 4 [facility] UNIVERSIT - OTHER 4 4 Y HOSPITAL EMERGENCY 98712 BUNNY DAVIES 4 4 MEDICAL MAT DEPARTMEN SERV T VISIT FOUNDATIO HIGH/URGE NT [facility] H[facility]PITAL UNIVERSIT - 4 4 [facility] - OTHER 4 4 [facility] EMERGENCY 03547 [facility] DEPT 4 4 KAMAR VISIT EMERGENCY HIGH PHYS SEVERITY& THREAT [facility] BRANDON - 4 4 [facility] BRANDON [facility] 4 4 [facility] BRANDON [facility] OTHER 4 4 [facility] OFFICE 19628 BUNNY MANZANO PHI OUTPATIEN 4 4 MEDICAL T NEW 30 SERV MINUTES FOUNDATIO OFFICE 08484 [facility] MIRANDA OUTPATIEN 4 4 [facility] 15 P MINUTES HOSPITAL BRANDON - 4 4 [facility] EMERGENCY 01948 MARLO KESSLER DEPT 4 4 EMERGENCY SHANTHI VISIT SERVICES HIGH SEVERITY& THREAT [facility] OFFICE 78863 AMA WYMAN OUTSHABBIR 4 4 NEUROLOGY FERNANDEZ T NEW 45 CENTER MINUTES [facility] BRANDON - 4 4 [facility] BRANDON - 4 4 [facility] OUTPATIEN [facility] EMERGENCY 20075 MARLO KESSLER DEPT 3 3 EMERGENCY SHANTHI VISIT SERVICES HIGH SEVERITY& THREAT [facility] BRANDON - 3 3 [facility] OUTPATIEN [facility] OFFICE 82266 [facility] MIRANDA OUTPATIEN 3 3 [facility] 10 P MINUTES HOSPITAL [facility]ON - 3 3 [facility]PATIEN [facility] BRANDON - 3 3 [facility] OUTPATIEN [facility] BRANDON - 3 3 [facility] OUTPATIEN [facility] OFFICE 61762 [facility] MIRANDA OUTPATIEN 3 3 [facility] 10 P MINUTES [facility] BRANDON - 3 3 [facility] OUTPATIEN [facility] EMERGENCY 45871 BR[facility]ON 3 3 [facility] VISIT LOW/MODER SEVERITY EMERGENCY 93630 MARLO COTTO DEPT 3 3 EMERGENCY BRO VISIT SERVICES HIGH SEVERITY& THREAT [facility] OFFICE 25867 MARNI MICHELLEHBURN OUTPATIEN 3 3 LUIS ALFREDO LOBATO T VISIT 15 MINUTES HOSPITAL [facility]ON - 3 3 [facility] OUTPATIEN [facility] BRANDON - 3 3 [facility] OUTPATIEN [facility] BRANDON - 3 3 [facility] OUTPATIEN [facility] BRANDON - 3 3 [facility] OUTPATIEN [facility] OFFICE 84154 MARNI MARNI OUTPATIEN 3 3 LUIS ALFREDO LOBATO T VISIT 25 MINUTES HOSPITAL [facility] - 3 3 [facility] OUTPATIEN [facility] OFFICE 54576 [facility] MCKEMIE OUTPATIEN 3 3 ZACKERY HUMPHREYS T VISIT INTERNAL 15 MED MINUTES HOSPITAL [facility] - 3 3 [facility] OUTPATIEN INC T [facility]OSPITAL [facility] - 3 3 [facility] OUTPATIEN INC T OFFICE 00321 MARNI MARNI OUTPATIEN 3 3 LUIS ALFREDO LUIS ALFREDO T VISIT 40 MINUTES HOSPITAL [facility] - 3 3 [facility] OUTPATIEN INC T OFFICE 42178 [facility] MCKEMIE OUTPATIEN 3 3 ZACKERY HUMPHREYS T VISIT INTERNAL 15 MED MINUTES OFFICE 55216 [facility] MUST[facility]HA OUTPATIEN 3 3 ZACKERY ZHAO T VISIT INTERNAL 15 MEDI MINUTES OFFICE 15155 [facility] MCKEMIE OUTPATIEN 3 3 ZACKERY HUMPHREYS T VISIT INTERNAL 15 MED MINUTES OFFICE 92670 [facility] MCK[facility] OUTPATIEN 3 3 ZACKERY HUMPHREYS T VISIT INTERNAL 15 MED MINUTES HOSPITAL [facility] - 3 3 [facility] OUTPATIEN INC T OFFICE 05356 [facility] MUST[facility] OUTPATIEN 3 3 ZACKERY ZHAO T VISIT INTERNAL 15 MEDI MINUTES HOSPITAL [facility] - 3 3 [facility] OUTPATIEN INC T OFFICE 47326 [facility] MCKEMIE OUTPATIEN 3 3 ZACKERY HUMPHREYS T VISIT INTERNAL 15 MED MINUTES HOSPITAL [facility] - 3 3 [facility] OUTPATIEN INC T OFFICE 35549 [facility] MUST[facility]HA OUTPATIEN 3 3 ZACKERY ZHAO T VISIT INTERNAL 15 MEDI MINUTES OFFICE 13016 [facility] PET[facility] OUTPATIEN 3 3 PHYSICIAN LUCITA T NEW 30 S GROUP MINUTES HOSPITAL [facility] - 3 3 [facility] OUTPATIEN INC T OFFICE 83620 [facility] [place] OUTPATIEN 3 3 ZACKERY ZHAO T VISIT INTERNAL 15 MEDI MINUTES HOSPITAL [facility] - 3 3 [facility] OUTPATIEN INC T OFFICE 26270 [facility] MUST[place]HA OUTPATIEN 3 3 ZACKERY CECE T VISIT INTERNAL 15 MEDI MINUTES OFFICE 30256 MARNI MARNI OUTPATIEN 3 3 LUIS ALFREDO LUIS ALFREDO T VISIT 25 MINUTES OFFICE 68822 MARNI MARNI OUTPATIEN 3 3 LUIS ALFREDO LUIS ALFREDO T VISIT 25 MINUTES OFFICE 35589 [facility] MUST[facility] OUTPATIEN 3 3 [facility] CECE T VISIT INTERNAL 15 MEDI MINUTES HOSPITAL [facility] - 3 3 [facility] OUTPATIEN INC T OFFICE 36933 [facility] PHILIP OUTPATIEN 3 3 [facility] 30 HOSPITAL MINUTES P OFFICE 63675 [place] MUST[place]HA OUTPATIEN 3 3 [facility] T VISIT INTERNAL 15 MEDI MINUTES OFFICE 96494 [place] MCKEMIE OUTPATIEN 3 3 [facility] PETR T VISIT INTERNAL 15 MED MINUTES HOSPITAL [facility] - 3 3 [facility] INPATIENT INC OFFICE 53699 [place] OUTPATIEN 3 3 [facility] T VISIT INTERNAL 15 MEDI MINUTES HOSPITAL [facility] - 3 3 [facility] OUTPATIEN INC T EMERGENCY 45274 MARLO DHALIWAL 2 2 EMERGENCY [facility] SERVICES T VISIT HIGH/URGE NT SEVERITY HOSPITAL [facility] - 2 2 [facility] OUTPATIEN INC [facility] - 2 2 [facility] OUTPATIEN INC T OFFICE 40873 [facility] MCKEMIE OUTPATIEN 2 2 [facility] JR HUMPHREYS T VISIT INTERNAL 15 MED MINUTES OFFICE 13896 [facility] BA[facility]I OUTPATIEN 2 2 [facility] 15 MINUTES OFFICE 40694 [facility] BA[facility] OUTPATIEN 2 2 [facility] 15 MINUTES HOSPITAL CENTRAL - 2 2 [facility] T EMERGENCY [address] [facility] DEPT 2 2 KAMAR DEIDRA VISIT EMERGENCY HIGH PHYS SEVERITY& THREAT FUN OFFICE 53649 [facility] BAZZI OUTPATIEN 2 2 [facility] 15 MINUTES OFFICE 60759 [facility] OUTPATIEN 2 2 [facility] 15 MINUTES OFFICE 06392 [facility] BAZZI OUTPATIEN 2 2 [facility] 15 MINUTES OFFICE 70775 [facility]OR[facility] PALOMO OUTPATIEN 2 2 L SURGIAL CATRACHITO T NEW 45 MINUTES ASSOCIATE OFFICE 07728 HORIZON BAZZI OUTPATIEN 2 2 [facility] T NEW 45 E CENTER MINUTES EMERGENCY 78770 [facility] 2 2 KAMAR [facility] DEPARTMEN EMERGENCY T VISIT SERVI HIGH/URGE NT SEVERITY OFFICE 63662 C SOPHIE LYONS OUTPATIEN 2 2 LEOY GAMBOA T VISIT PSC 25 MINUTES OFFICE 89539 [place] OUTPATIEN 2 2 [facility] T VISIT INTERNAL 15 MEDI MINUTES HOSPITAL [facility] - 2 2 [facility] OUTPATIEN INC [facility] - 2 2 [facility] OUTPATIEN INC T OFFICE 00347 [place] MCKEMIE OUTPATIEN 2 2 [facility] PETR T VISIT INTERNAL 15 MED MINUTES EMERGENCY 23274 UNIVERSIT DEPT 2 2 Y VISIT HOSPITAL HIGH SEVERITY& THREAT [facility] HOSPITAL UNIVERSIT - 2 2 Y OUTPATI HOSPITAL T EMERGENCY 49602 [facility] 2 2 [facility] DEPARTMEN INC T VISIT HIGH/URGE NT SEVERITY EMERGENCY 50788 MARLO FATIMA DEPT 2 2 EMERGENCY PETR VISIT SERVICES HIGH SEVERITY& THREAT [facility] HOSPITAL BRANDON - 2 2 [facility] OUTPATIEN [facility] T OFFICE 17286 [facility] MCKEMIE OUTPATIEN 2 2 ZACKERY HUMPHREYS T VISIT INTERNAL 15 MED MINUTES HOSPITAL [facility] - 2 2 [facility] OUTPATIEN [facility] T EMERGENCY 85167 [facility] 2 2 [facility] DEPARTMEN INC T VISIT HIGH/URGE NT SEVERITY EMERGENCY 11636 MARLO KESSLER DEPT 2 2 EMERGENCY SHANTHI VISIT SERVICES HIGH SEVERITY& THREAT [facility] BRANDON - 2 2 [facility] OUTPATIEN [facility] OFFICE 86497 [facility] B[facility] OUTPATIEN 2 2 [facility] VISIT INTERNAL 15 MED MINUTES EMERGENCY 16853 [facility] 2 2 [facility] DEPARTMEN [facility] T VISIT MODERATE SEVERITY EMERGENCY 42884 MARLO KESSLER 2 2 [facility] DEPARTMEN SERVICES T VISIT HIGH/URGE NT SEVERITY HOSPITAL [facility] - 2 2 [facility] OUTPATIEN [facility] OFFICE 23613 [place] MCKEMIE OUTPATIEN 2 2 ZACKERY HUMPHREYS T VISIT INTERNAL 15 MED MINUTES HOSPITAL BR[facility]ON - 2 2 [facility] OUTPATIEN [facility] OFFICE 29470 [facility] BESSON OUTPATIEN 2 2 [facility] VISIT INTERNAL 25 MED MINUTES OFFICE 56523 MARNI MARNI OUTPATIEN 2 2 LUIS ALFREDO LUIS ALFREDO T VISIT 25 MINUTES HOSPITAL [facility] - 2 2 [facility] OUTPATIEN [facility] HOSPITAL [facility] - 2 2 [facility] OUTPATIEN INC T EMERGENCY 32675 [facility] 2 2 [facility] DEPARTMEN INC T VISIT MODERATE SEVERITY HOSPITAL [facility] - 2 2 [facility] OUTPATIEN INC T OFFICE 20846 MARNI MARNI OUTPATIEN 2 2 LUIS ALFREDO LOBATO T NEW 45 MINUTES OFFICE 30216 [facility] MUST[facility]HA OUTPATIEN 2 2 [facility] CECE T VISIT INTERNAL 15 MEDI MINUTES OFFICE 45119 [place] MUST[facility] OUTPATIEN 2 2 [facility] CECE T VISIT INTERNAL 15 MEDI MINUTES OFFICE 08919 [place] [facility] OUTPATIEN 2 2 [facility] CECE T VISIT INTERNAL 10 MEDI MINUTES EMERGENCY 58089 MARLO AKERS DEPT 2 2 EMERGENCY VISIT SERVICES HIGH SEVERITY& THREAT [facility] BR[facility]ON - 2 2 [facility] OUTPATIEN INC T EMERGENCY 45620 [facility] 2 2 [facility] DEPARTMEN INC T VISIT HIGH/URGE NT SEVERITY OFFICE 62674 [facility] MCKEMIE OUTPATIEN 2 2 [facility] JR HUMPHREYS T VISIT INTERNAL 15 MED MINUTES OFFICE 46567 KENZIE ESPINO OUTPATIEN 2 2 LUCITA JAM T NEW 60 MINUTES OFFICE 41355 [place] B[facility] OUTPATIEN 2 2 [facility] CATRACHITO T VISIT INTERNAL 15 MED MINUTES HOSPITAL [facility] - 2 2 [facility] OUTPATIEN INC T EMERGENCY 31298 [facility] 2 2 [facility] DEPARTMEN INC T VISIT HIGH/URGE NT SEVERITY OFFICE 37343 [place] GAL THO OUTPATIEN 1 1 MEDICAL T NEW 30 SERV MINUTES FOUNDATIO OFFICE 75847 EAR, NOSE SHASHY OUTPATIEN 1 1 AND SOBEIDA T VISIT THROAT 25 SPECIAL MINUTES HOSPITAL [facility] - 1 1 [facility] OUTPATIEN INC T OFFICE 05076 EAR, NOSE SHASHY OUTPATIEN 1 1 AND SOBEIDA T NEW 30 THROAT MINUTES SPECIAL OFFICE 91949 CHRIS WELLS OUTPATIEN 1 1 [facility] T VISIT INTERNAL 15 MED MINUTES HOSPITAL BR[facility] - 1 1 [facility] OUTPATIEN [facility] HOSPITAL BRANDON - 1 1 [facility] OUTPATIEN [facility] T EMERGENCY 86096 [facility] 1 1 [facility] T VISIT HIGH/URGE NT SEVERITY HOSPITAL [facility] - 1 1 [facility] OUTPATIEN [facility] HOSPITAL BR[facility] 1 1 [facility] OUTPATIEN [facility] OFFICE 19034 ELLEN LIMON OUTPATIEN 1 1 [facility] T VISIT 10 MINUTES EMERGENCY 61483 [facility] 1 1 [facility] T VISIT LIMITED/M [facility] - 1 1 [facility] OUTPATIEN [facility] T EMERGENCY 12684 MARLO AKERS 1 1 EMERGENCY [facility] SERVICES T VISIT HIGH/URGE NT SEVERITY HOSPITAL [facility] - 1 1 [facility] OUTPATIEN [facility] HOSPITAL BR[facility] 1 1 [facility] OUTPATIEN [facility] OFFICE 33504 PAWSAT PAWSAT OUTPATIEN 1 1 Aug T NEW 30 MINUTES EMERGENCY 75885 MARLO KESSLER 1 1 EMERGENCY SHANTHI [facility] SERVICES T VISIT HIGH/URGE NT SEVERITY HOSPITAL [facility] - 1 1 [facility] OUTPATIEN [facility] T EMERGENCY 46912 [facility] 1 1 [facility] T VISIT MODERATE SEVERITY HOSPITAL [facility] - 1 1 [facility] OUTPATIEN [facility] H[facility]PITAL [facility] - 1 1 [facility]EN [facility] H[facility] - 1 1 [facility]PATIEN [facility] HOSPITAL [facility] - 1 1 [facility] OUTPATIEN INC OFFICE 15231 [facility] ARVIZU OUTPATIEN 1 1 DEIDRA GAY [facility] 45 MINUTES OFFICE 91829 CARIN DEL ROSARIO OUTPATIEN 1 1 JANET GONZALES [facility] 45 MINUTES HOSPITAL [facility] - 1 1 [facility]PAT[facility] - 1 1 [facility] OUTPATIEN INC [facility] - 1 1 [facility] - 1 1 [facility] OUTPATIEN INC EMERGENCY 16536 MARLO JACKSON OSWALD 1 1 EMERGENCY DEPARTMEN SERVICES T VISIT HIGH/URGE NT SEVERITY EMERGENCY 99667 [facility] 1 1 [facility] DEPARTMEN [facility] T VISIT HIGH/URGE NT SEVERITY HOSPITAL [facility] - 1 1 [facility] OUTPATIEN INC EMERGENCY 99005 MARLO JACKSON OSWALD DEPT 1 1 EMERGENCY VISIT SERVICES HIGH SEVERITY& THREAT [facility] BRANDON - 1 1 [facility] OUTPATIEN INC [facility] - 1 1 [facility] OUTPATIEN INC [facility] BRANDON - 1 1 [facility] OUTPATIEN INC [facility] - 1 1 [facility]PATIEN INC [facility] - 1 1 [facility] OUTPATIEN INC [facility] - 1 1 [facility] OUTPATIEN INC OFFICE 64164 José LYONS OUTPATIEN 1 1 ELOY SIMEON 45 MD PSC [facility] BR[facility]ON - 1 1 [facility] OUTPATIEN INC T EMERGENCY 06020 [facility] 0 0 [facility] DEPARTMEN INC T VISIT LOW/MODER SEVERITY [facility]OSPITAL [facility] - 0 0 [facility] OUTPATIEN INC T EMERGENCY 77227 MARLO KESSLER, 0 0 [facility]ISIT MODERATE ASSOCIATE SEVERITY S HOSP[facility] - 0 0 [facility] OUTPATIEN INC T [facility] - 0 0 [facility] OUTPATIEN INC T EMERGENCY 12671 [facility] 0 0 [facility] DEPARTMEN INC T VISIT MODERATE SEVERITY EMERGENCY 09614 MARLO CORTÉS, 0 0 EMERGENCY [facility] DEPARTMEN SERVICES O T VISIT HIGH/URGE ASSOCIATE NT S SEVERITY EMERGENCY 97761 MARLO KESSLER, 0 0 EMERGENCY [facility] SERVICES T VISIT MODERATE ASSOCIATE SEVERITY S HOSPITAL [facility] - 0 0 [facility] OUTPATIEN INC T EMERGENCY 08153 [facility] 0 0 [facility] DEPARTMEN INC T VISIT LOW/MODER SEVERITY HOSPITAL [facility] - 9 9 [facility] OUTPATIEN INC T OFFICE 94634 [facility] B[facility], OUTPATIEN 9 9 ZACKERY LAURIE A T VISIT INTERNAL 15 MED MINUTES HOSPITAL [facility] - 9 9 [facility] OUTPATIEN INC T OFFICE 99758 [facility], OUTPATIEN 9 9 ZACKERY LAURIE A T VISIT INTERNAL 25 MED MINUTES OFFICE 30166 [facility] MCKEMIE OUTPATIEN 9 9 ZACKERY EDWARD, T VISIT INTERNAL KANNAN F 10 MED MINUTES OFFICE 33513 [facility], OUTPATIEN 9 9 ZACKERY LAURIE A T VISIT INTERNAL 15 MED MINUTES HOSPITAL [facility] - 9 9 [facility] OUTPATIEN INC T EMERGENCY 44450 MARLO KESSLER, 9 9 [facility] T [facility]ISIT HIGH/URGE ASSOCIATE NT S SEVERITY EMERGENCY 22429 [facility] 9 9 [facility] DEPARTMEN INC T VISIT MODERATE SEVERITY OFFICE 00426 LEANA DUEÑAS OUTPATIEN 9 9 CHELSY Headley T VISIT 15 MINUTES EMERGENCY 17115 MARLO KESSLER, 9 9 EMERGENCY [facility] DEPARTMEN SERVICES T VISIT MODERATE ASSOCIATE SEVERITY S EMERGENCY 78800 MARLO CORTÉS DEPT 9 9 EMERGENCY [facility] VISIT SERVICES O HIGH SEVERITY& ASSOCIATE THREAT S [facility] H[facility]PITAL [facility] - 9 9 [facility] OUTPATIEN INC T EMERGENCY 89478 MARLO KESSLER, 9 9 [facility] T VISIT HIGH/URGE ASSOCIATE NT S SEVERITY EMERGENCY 69202 [facility] 9 9 [facility] DEPARTMEN INC T VISIT MODERATE SEVERITY OFFICE 26493 LEANA DUEÑAS OUTPATIEN 9 9 CHELSY Headley T VISIT 15 MINUTES EMERGENCY 94601 [facility] 9 9 [facility] DEPARTMEN INC T VISIT HIGH/URGE NT SEVERITY HOSPITAL [facility] - 9 9 [facility] OUTPATIEN INC T EMERGENCY 19261 MARLO CORTÉS DEPT 9 9 EMERGENCY [facility] VISIT SERVICES O HIGH SEVERITY& ASSOCIATE THREAT S [facility] EMERGENCY 28996 MARLO CENTENO DEPT 9 9 EMERGENCY [facility] VISIT SERVICES HIGH SEVERITY& ASSOCIATE THREAT S FUN EMERGENCY 44931 [facility] HARRIST 9 9 [facility] VISIT INC HIGH SEVERITY& THREAT [facility] HOSPITAL [facility] - 9 9 [facility] OUTPATIEN INC T OFFICE 86594 MARY HERNANDEZ OUTPATIEN 9 9 OSWALDO Franz T VISIT 10 MINUTES HOSPITAL [facility] - 9 9 [facility] OUTPATIEN INC T [facility] - 9 9 [facility] OUTPATIEN INC T OFFICE 48327 MARY HERNANDEZ OUTPATIEN 9 9 OSWALDO Franz T VISIT 15 MINUTES OFFICE 43465 LEANA DUEÑAS OUTPATIEN 9 9 CHELSY Headley CHELSY Headley T VISIT 15 MINUTES OFFICE 48516 LEANA DUEÑAS OUTPATIEN 9 9 CHELSY Fang CHELSY Headley T VISIT 15 MINUTES EMERGENCY 58945 MARLO SHEA DEPT 9 9 EMERGENCY GISELLE R VISIT SERVICES HIGH SEVERITY& ASSOCIATE THREAT S [facility] H[facility]PITAL [facility] - 9 9 [facility] OUTPATIEN INC T OFFICE 00186 LEANA DUEÑAS OUTPATIEN 9 9 CHELSY Headley T VISIT 15 MINUTES OFFICE 35376 LEANA DUEÑAS OUTPATIEN 9 9 CHELSY Headley T VISIT 15 MINUTES EMERGENCY 68772 MARLO CORTÉS 9 9 EMERGENCY [facility] DEPARTMEN SERVICES O T VISIT MODERATE ASSOCIATE SEVERITY S EMERGENCY 55983 [facility] 9 9 [facility] DEPARTMEN INC T VISIT LOW/MODER SEVERITY [facility]OSPITAL [facility] - 9 9 [facility] OUTPATIEN INC T OFFICE 61331 LEANA DUEÑAS OUTPATIEN 9 9 CHELSY VALENTINO W T VISIT 15 MINUTES HOSPITAL [facility] - 9 9 [facility] OUTPATIEN INC T OFFICE 74726 ART BARNARD 9 9 MT STONER T VISIT SERV 25 FOUNDATIO MINUTES EMERGENCY 38671 MARLO KESSLER DEPT 9 9 EMERGENCY JOSEPH S VISIT SERVICES HIGH SEVERITY& ASSOCIATE THREAT S FUN EMERGENCY 78233 [facility] 9 9 [facility] DEPARTMEN INC T VISIT HIGH/URGE NT SEVERITY HOSPITAL [facility] - 9 9 [facility] OUTPATIEN INC T OFFICE 35538 LEANA DUEÑAS OUTPATIEN 9 9 CHELSY Headley T VISIT 15 MINUTES EMERGENCY 91406 MARLO VIDES, DEPT 9 9 EMERGENCY [facility] VISIT SERVICES ER R HIGH SEVERITY& ASSOCIATE THREAT S [facility] BRANDON - 9 9 [facility] OUTPATIEN INC T EMERGENCY 23580 [facility] 9 9 [facility] DEPARTMEN INC T VISIT MODERATE SEVERITY OFFICE 48210 LEANA DUEÑAS OUTPATIEN 9 9 CHELSY Headley T VISIT 15 MINUTES HOSPITAL [facility] - 9 9 [facility] OUTPATIEN INC T EMERGENCY 33053 [facility] 9 9 [facility] DEPARTMEN INC T VISIT LOW/MODER SEVERITY OFFICE 81216 LEANA DUEÑAS OUTPATIEN 9 9 CHELSY Headley T VISIT 15 MINUTES OFFICE 03961 LEANA DUEÑAS OUTPATIEN 9 9 CHELSY Headley T VISIT 15 MINUTES OFFICE 58844 LEANA DUEÑAS OUTPATIEN 9 9 CHELSY Headley T VISIT 15 MINUTES OFFICE 74545 ART BARNARD 9 9 MEDICAL [place] T VISIT SERV 25 FOUNDATIO MINUTES OFFICE 12723 LEANA DUEÑAS OUTPATIEN 8 8 CHELSY Headley T VISIT 15 MINUTES OFFICE 31950 LEANA DUEÑAS OUTPATIEN 8 8 CHELSY Headley T VISIT 15 MINUTES EMERGENCY 13269 [facility] 8 8 [facility] DEPARTMEN INC T VISIT LIMITED/M [facility] - 8 8 [facility] OUTPATIEN INC T OFFICE 05893 ART BARNARD 8 8 MEDICAL [place] T VISIT SERV 25 FOUNDATIO MINUTES OFFICE 42190 LEANA DUEÑAS OUTPATIEN 8 8 CHELSY Headley T VISIT 15 MINUTES OFFICE 25980 LEANA DUEÑAS OUTPATIEN 8 8 CHELSY Headley T VISIT 15 MINUTES HOSPITAL [facility] - 8 8 [facility] OUTPATIEN INC T EMERGENCY 71434 [facility] 8 8 [facility] DEPARTMEN INC T VISIT HIGH/URGE NT SEVERITY EMERGENCY 65131 JENNIFER ROSARIO, 8 8 [facility] T VISIT ON MODERATE SEVERITY OFFICE 33055 LEANA DUEÑAS OUTPATIEN 8 8 CHELSY Headley T VISIT 15 MINUTES HOSPITAL [facility] - 8 8 [facility] OUTPATIEN INC T HOSPITAL [facility] - 8 8 [facility] OUTPATIEN INC T OFFICE 48018 SAMANTA ENGLAND OUTPATIEN 8 8 CHUCK WOODS T VISIT 25 MINUTES OFFICE 23682 MAO BARNARD 8 8 MEDICAL [place] ION SERV NEW/ESTAB FOUNDATIO PATIENT 60 MIN OFFICE 93931 LEANA DUEÑAS OUTPATIEN 8 8 CHELSY Headley T VISIT 15 MINUTES EMERGENCY 09888 [facility] 8 8 [facility] DEPARTMEN INC T VISIT LIMITED/M INOR PROB [facility] T OFFICE [id number] AIDAN BERMUDEZ CONSULTAT 8 8 JR CHEYANNE, PARUL Ortega NEW/ESTAB PATIENT 60 MIN EMERGENCY 00547 [facility] 8 [facility] DEPART[facility] INC T VISIT MODERATE SEVERITY [facility] T EMERGENCY 00265 JENNIFER MARLENE, 8 8 [facility] ROND[facility] E DEPARTMEN CORPORATI T VISIT ON HIGH/URGE NT SEVERITY OFFICE 79216 LEANA DUEÑAS OUTPATIEN 8 8 CHELSY Headley T VISIT 15 MINUTES EMERGENCY 41171 [facility] 8 8 [facility] DEPARTMEN INC T VISIT LIMITED/M INOR PROB [facility] 8 [facility] OUT[facility] INC T EMERGENCY 49518 RODRIGUEZ MILANA, 8 8 [facility] GRACE DEPARTMEN CORPORATI O T VISIT ON LOW/MODER SEVERITY EMERGENCY 80826 [facility] 8 8 [facility] DEPARTMEN INC T VISIT LOW/MODER SEVERITY [facility] OUT[facility] INC T OFFICE 23768 LEANA DUEÑAS OUTPATIEN 8 8 CHELSY VALENTINO W T VISIT 15 MINUTES HOSP[facility] - 8 8 [facility] T OFFICE 20001 LEANA DUEÑAS OUTPATIEN 8 8 CHELSY VALENTINO W T VISIT 15 MINUTES OFFICE 65335 ART LANDIN 8 8 KANNAN Franz T VISIT CARDIOLOG 40 Y MINUTES CONSULTAN T OFFICE 09727 LEANA DUEÑAS OUTPATIEN 8 8 CHELSY Headley T VISIT 15 MINUTES OFFICE 46756 LEANA DUEÑAS OUTPATIEN 8 8 CHELSY Headley T NEW 30 MINUTES INITIAL 17763 [facility] CARIAS[facility] 8 8 [facility]ANCO RIVAS PATIENT PLLC [id number] EMERGENCY 25135 [facility] 8 8 [facility] DEPARTMEN INC T VISIT HIGH/URGE NT SEVERITY [facility] 8 [facility] INC T OFFICE 03168 [place] M[facility]EM[facility] OUTPATIEN 8 8 [facility], VISIT INTERNAL [facility] - 8 8 [facility]EN [facility] - 8 8 [facility] INC T OFFICE 57126 [place] [facility] OUTPATIEN 8 8 [facility], VISIT 5 [facility]NAL [facility] MED OFFICE 42063 [place] [facility] OUTPATIEN 8 8 [facility] VISIT INTERNAL [facility] 15 [facility] - 8 8 [facility] OUT[facility] INC T EMERGENCY 14944 [place] 8 8 [facility] DEPARTMEN INC T VISIT LIMITED/M INOR PROB OFFICE 21619 [place] [facility] OUTPATIEN 8 8 [facility], VISIT INTERNAL [facility] 15 [facility] - 8 8 [facility] OUT[facility] INC T EMERGENCY 38698 [facility] [place] DEPT [address] [facility] PROF SERV SEVERITY& THREAT [facility] - 8 8 [facility] OUTPATIEN INC T OFFICE 88667 SAMANTA ENGLAND, JAELAT 8 8 CHUCK TERAN NEW/ESTAB PATIENT 80 MIN OFFICE 44697 MAO AMEZQUITA 8 8 [facility] TER[facility] SERV NEW/ESTAB FOUNDATIO PATIENT 40 MIN
--- OUTSIDE RECORDS SUMMARY | 2017-04-15 17:56 | External Medical Summary Rpt | CCD ---
Author Author , LEOBARDO Organization [facility] Address Unknown Phone [email or web address] Immunization Name Date Rout CVX Reac Dose Comm Prov Is Faci e tion ent ider Refu lity Give sed n PPV2 10-1 33 0.5 Hist WALM No WALM 3 1-20 mL oric ART4 ART4 17 al 93 93 Info rmat ion - Sour ce Unsp ecif ied Infl 09-1 150 0.5 Hist [facility] No RITE uenz 8-20 mL oric ASHLEIGH AID0 a 17 al AYMA 3938 Quad Info N Inj rmat ion - Sour ce Unsp ecif ied Zost 09-1 121 1 mL Hist [facility] No RITE er 8-20 oric ASH[facility]IGH AID0 17 al AYMA 3938 Info N rmat ion - Sour ce Unsp ecif ied Tdap 09-1 115 0.5 Hist [facility] No RITE , 8-20 mL oric ASH[facility] AID0 Adso 17 al AYMA 3938 rbed Info N rmat ion - Sour ce Unsp ecif ied Tdap 01-0 Intr 115 999 Hist H149 No H149 , 2-20 amus oric Adso 14 cula al rbed r Info rmat ion - Sour ce Unsp ecif ied PPV2 01-0 Intr 33 999 Hist [facility] No [facility] 3 1-20 amus oric 1 1 11 cula al r Info rmat ion - Sour ce Unsp ecif ied PPV2 12-2 Intr 33 999 Hist H149 No H149 3 1-20 amus oric 07 cula al r Info rmat ion - Sour ce Unsp ecif ied Td 03-0 Subc 9 999 Hist H149 No H149 (jon 4-19 utan oric lt), 97 eous al Info adso rmat rbed ion - Sour ce Unsp ecif ied
--- OUTSIDE RECORDS SUMMARY | 2017-04-15 17:56 | External Medical Summary Rpt ---
Author Author LEOBARDO Sears, [employer] Organization [employer] Address Unknown Phone Unavailable Results Glucose [Mass/volume] in Capillary blood by Glucometer Observa Value Referen Units Interpr Notes Date tion ce etation Range Glucose 70 - 110 mg/dl High No Mar 10 [Mass/vol informati 2016 ume] in on in 10:10 AM Capillary source blood by data Glucomete r Basic metabolic panel in Blood Observa Value Referen Units Interpr Notes Date tion ce etation Range Urea 7 - 18 mg/dL High No Jan 25 nitrogen informati 2016 [Mass/vol on in 12:37 PM ume] in source Serum or data Plasma Calcium 8.5 - mg/dL Normal No Jan 25 [Mass/vol 10.1 informati 2016 ume] in on in 12:37 PM Serum or source Plasma data Chloride 98 - 107 mmoL/L Low No Jan 25 [Moles/vo informati 2016 lume] in on in 12:37 PM Serum or source Plasma data Carbon 21.0 - mmoL/L Normal No Jan 25 dioxide, 32.0 informati 2016 total on in 12:37 PM [Moles/vo source lume] in data Serum or Plasma Creatinin 0.55 - mg/dL High No Jan 25 e 1.02 inform2016 [Mass/vol on in 12:37 PM ume] in source Serum or data Plasma Estimated 59- ML/MIN Low REFERENCE Jan 25 RANGE: 2017 glomerula >60 12:37 PM r ML/MIN/1. filtratio 73 SQUARE n rate METERSIf (GF this patient is -A merican, then multiply theresult by 1.210. Glucose 74 - 106 mg/dL High No Jan 25 [Mass/vol informati 2016 ume] in on in 12:37 PM Serum or source Plasma data Potassium 3.5 - 5.1 mmoL/L Normal No Jan 25 inform2016 [Moles/vo on in 12:37 PM lume] in source Serum or data Plasma Sodium 136 - 145 mmoL/L Low No Aug 3 [Moles/vo informati 2017 lume] in on in 12:37 PM Serum or source Plasma data Drugs identified in Urine by Screen method Observa Value Referen Units Interpr Notes Date tion ce etation Range Positive urine drug screen samples are stored for 7 days. Contact the Lab if confirmation of positives is needed. Ampheta NEGATIV <1000 ng/mL No No Jan 09 mine E informa informa 2017 [Presen tion in tion in 2:27 AM ce] in source source Urine data data by Screen method Barbitura <200 ng/mL No No Jan 09 meagan informati informati 2017 2:27 [Mass/vol on in on in AM ume] in source source Urine by data data Screen method Benzodiaz 200 ng/mL ng/mL No No Jan 09 epines informati informati 2017 2:27 [Mass/vol on in on in AM ume] in source source Serum or data data Plasma by Screen method Cocaine <300 ng/g No No Jan 09 [Mass/vol informati informati 2017 2:27 ume] in on in on in AM Unspecifi source source ed data data specimen Methadone <300 ng/mL No No Jan 09 informati informati 2017 2:27 [Mass/vol on in on in AM ume] in source source Unspecifi data data ed specimen Opiates <300 ng/mL No No Jan 09 [Mass/vol informati informati 2017 2:27 ume] in on in on in AM Unspecifi source source ed data data specimen Phencycli <25 ng/mL No No Jan 09 dine informati informati 2016 2:27 [Mass/vol on in on in AM ume] in source source Unspecifi data data ed specimen 11-Hydr NEGATIV <50 ng/mL No No Jan 09 oxy E informa informa 2017 delta-9 tion in tion in 2:27 AM source source tetrahy data data drocann abinol [Presen ce] in Unspeci fied specime n Urinalysis dipstick W Reflex Microscopic panel in Urine Observa Value Referen Units Interpr Notes Date tion ce etation Range Appeara SL CLEAR No No No Jan 09 nce of CLOUDY informa informa informa 2017 Urine tion in tion in tion in 2:27 AM source source source data data data Bacteri 2+ O No No No Jan 09 a informa informa informa 2016 [Presen tion in tion in tion in 2:27 AM ce] in source source source Urine data data data sedimen t by Light microsc opy Bilirub NEGATIV NEG No No No Jan 09 in E informa informa informa 2017 [Presen tion in tion in tion in 2:27 AM ce] in source source source Urine data data data by Test strip Erythro NEGATIV NEG No No No Jan 09 cytes E informa informa informa 2016 [Presen tion in tion in tion in 2:27 AM ce] in source source source Urine data data data Color YELLOW YELLOW No No No Jan 09 of informa informa informa 2016 Urine tion in tion in tion in 2:27 AM source source source data data data Glucose NEG No No No Jan 09 [Mass/vol informati informati informati 2017 2:27 ume] in on in on in on in AM Urine by source source source Test data data data strip Ketones NEGATIV NEG mg/dL No No Jan 09 E informa informa 2016 [Presen tion in tion in 2:27 AM ce] in source source Urine data data by Automat ed test strip Mucus 2+ NEG No Abnorma No Jan 09 [Presen informa l inform2016 ce] in tion in tion in 2:27 AM Urine source source sedimen data data t by Light microsc opy Nitrite NEGATIV NEG No No No Jan 09 E informa informa informa 2016 [Presen tion in tion in tion in 2:27 AM ce] in source source source Urine data data data by Test strip pH of 5.0 - 8.5 No Normal No Jan 09 Urine informati informati 2017 2:27 on in on in AM source source data data Protein NEG mg/dL No No Jan 09 [Mass/vol informati informati 2017 2:27 ume] in on in on in AM Urine by source source Automated data data test strip Erythro OCC 0 rbc/hpf No No Jan 09 cytes informa informa 2016 [Presen tion in tion in 2:27 AM ce] in source source Urine data data sedimen t by Light microsc opy Specific 1.005 - No Normal No Jan 09 gravity 1.030 informati informati 2017 2:27 of Urine on in on in AM source source data data Epithel TNTC 0 - 5 #/hpf No No Jan 09 ial informa informa 2017 cells.s tion in tion in 2:27 AM quamous source source data data [Presen ce] in Urine sedimen t by Microsc opy high power field Urobili 0.2 NEG E.U./dL No No Jan 09 nogen informa informa 2016 [Presen tion in tion in 2:27 AM ce] in source source Urine data data by Test strip Leukocy [20 O wbc/hpf No No Jan 09 meagan wbc/hpf informa informa 2016 [#/volu ; 50 tion in tion in 2:27 AM me] in wbc/hpf source source Urine ] data data Yeast 3+ NONE No No No Jan 09 [Presen informa informa informa 2016 ce] in tion in tion in tion in 2:27 AM Urine source source source sedimen data data data t by Light microsc opy Urinalysis dipstick W Reflex Microscopic panel in Urine Observa Value Referen Units Interpr Notes Date tion ce etation Range Appeara SL CLEAR No No No Jan 09 nce of CLOUDY informa informa informa 2017 Urine tion in tion in tion in 2:27 AM source source source data data data Bilirub NEGATIV NEG No No No Jan 09 in E informa informa informa 2016 [Presen tion in tion in tion in 2:27 AM ce] in source source source Urine data data data by Test strip Erythro NEGATIV NEG No No No Jan 09 cytes E informa informa informa 2016 [Presen tion in tion in tion in 2:27 AM ce] in source source source Urine data data data Color YELLOW YELLOW No No No Jan 09 of informa informa informa 2017 Urine tion in tion in tion in 2:27 AM source source source data data data Glucose NEG No No No Jan 09 [Mass/vol informati informati informati 2017 2:27 ume] in on in on in on in AM Urine by source source source Test data data data strip Ketones NEGATIV NEG mg/dL No No Jan 09 E informa informa 2016 [Presen tion in tion in 2:27 AM ce] in source source Urine data data by Automat ed test strip Mucus 2+ NEG No Abnorma No Jan 09 [Presen informa l inform2016 ce] in tion in tion in 2:27 AM Urine source source sedimen data data t by Light microsc opy Nitrite NEGATIV NEG No No No Jan 09 E informa informa informa 2016 [Presen tion in tion in tion in 2:27 AM ce] in source source source Urine data data data by Test strip pH of 5.0 - 8.5 No Normal No Jan 09 Urine informati informati 2016 2:27 on in on in AM source source data data Protein NEG mg/dL No No Jan 09 [Mass/vol informati informati 2016 2:27 ume] in on in on in AM Urine by source source Automated data data test strip Specific 1.005 - No Normal No Jan 09 gravity 1.030 informati informati 2016 2:27 of Urine on in on in AM source source data data Urobili 0.2 NEG E.U./dL No No Jan 09 nogen informa informa 2016 [Presen tion in tion in 2:27 AM ce] in source source Urine data data by Test strip CBC W Auto Differential panel in Blood Observa Value Referen Units Interpr Notes Date tion ce etation Range Basophils 0 - 0.2 K/MM3 Normal No Jan 032016 7:50 [#/volume on in PM ] in source Blood by data Automated count Basophils 0.1 - 2.0 % Normal No Jan 03 informati 2016 7:50 leukocyte on in PM s in source Blood by data Automated count Eosinophi 0.0 - 0.4 K/mm3 Normal No Jan 03 ls informati 2016 7:50 [#/volume on in PM ] in source Blood by data Automated count Eosinophi 0.1 - % Normal No Jan 03 ls/100 12.0 informati 2016 7:50 leukocyte on in PM s in source Blood by data Automated count Granulocy 1.8 - 7.8 K/mm3 High No Jan 03 meagan informati 2016 7:50 [#/volume on in PM ] in source Blood by data Automated count Granulocy 37.0 - % Normal No Jan 03 meagan/100 80.0 informati 2016 7:50 leukocyte on in PM s in source Blood by data Automated count Hematocri 37.0 - % Low No Jan 03 t [Volume 47.0 informati 2017 7:50 on in PM Fraction] source of Blood data Hemoglobi 12.2 - g/dL Low No Jan 03 n 16.2 informati 2017 7:50 [Mass/vol on in PM ume] in source Blood data Lymphocyt 0.7 - 4.5 K/mm3 Normal No Jan 03 es informati 2016 7:50 [#/volume on in PM ] in source Unspecifi data ed specimen by Automated count Lymphocyt 10 - 50.0 % Normal No Jan 03 es informati 2017 7:50 [#/volume on in PM ] in source Unspecifi data ed specimen by Automated count Erythrocy 27 - 31.2 pg Normal No Jan 03 te mean informati 2017 7:50 corpuscul on in PM ar source hemoglobi data n [Entitic mass] Erythrocy 31.8 - g/dl Normal No Jan 03 te mean 35.4 informati 2017 7:50 corpuscul on in PM ar source hemoglobi data n concentra tion [Mass/vol ume] by Automated count Erythrocy 82.2 - fl Normal No Jan 03 te mean 97.8 informati 2017 7:50 corpuscul on in PM ar volume source [Entitic data volume] by Automated count Monocytes 0.1 - 1.0 K/mm3 Normal No Jan 03 informati 2017 7:50 [#/volume on in PM ] in source Blood by data Automated count Monocytes 1.7 - 9.3 % Normal No Dec 12 /100 informati 2017 7:50 leukocyte on in PM s in source Blood by data Automated count Platelet 7.4 - fl Low No Jan 03 mean 10.4 informati 2017 7:50 volume on in PM [Entitic source volume] data in Blood by Automated count Platelets 142 - 424 K/mm3 High No Jan 03 informati 2017 7:50 [#/volume on in PM ] in source Blood data Erythrocy 4.2 - 5.4 M/mm3 Low No Jan 03 meagan informati 2017 7:50 [#/volume on in PM ] in source Amniotic data fluid Erythrocy 11.5 - % Normal No Jan 03 te 17.5 informati 2017 7:50 distribut on in PM ion width source [Entitic data volume] by Automated count Leukocyte 4.8 - K/MM3 High No Jan 03 s 10.8 2016 7:50 [#/volume on in PM ] in source Blood data Glucose [Mass/volume] in Capillary blood by Glucometer Observa Value Referen Units Interpr Notes Date ti ce etation Range Glucose 70 - 110 mg/dl No No Jan 03 [Mass/vol informati 2016 7:28 ume] in on in on in PM Capillary source source blood by data data Glucomete r CBC W Auto Differential panel in Blood Observa Value Referen Units Interpr Notes Date ti ce etation Range Basophils 0 - 0.2 K/MM3 Normal No Dec [id number] [#/volume on in 10:20 PM ] in source Blood by data Automated count Basophils 0.1 - 2.0 % Normal No Dec 23 /2016 leukocyte on in 10:20 PM s in source Blood by data Automated count Eosinophi 0.0 - 0.4 K/mm3 Normal No Dec 23 ls 2016 [#/volume on in 10:20 PM ] in source Blood by data Automated count Eosinophi 0.1 - % Normal No Dec 23 ls/100 12.0 2016 leukocyte on in 10:20 PM s in source Blood by data Automated count Granulocy 1.8 - 7.8 K/mm3 High No Dec 23 meagan 2016 [#/volume on in 10:20 PM ] in source Blood by data Automated count Granulocy 37.0 - % Normal No Dec 23 meagan/100 80.0 2016 leukocyte on in 10:20 PM s in source Blood by data Automated count Hematocri 37.0 - % Normal No Dec 23 t [Volume 47.0 2016 on in 10:20 PM Fraction] source of Blood data Hemoglobi 12.2 - g/dL Normal No Dec 23 n 16.2 2016 [Mass/vol on in 10:20 PM ume] in source Blood data Lymphocyt 0.7 - 4.5 K/mm3 High No Dec 23 es 2016 [#/volume on in 10:20 PM ] in source Unspecifi data ed specimen by Automated count Lymphocyt 10 - 50.0 % Normal No Dec 23 es 2016 [#/volume on in 10:20 PM ] in source Unspecifi data ed specimen by Automated count Erythrocy 27 - 31.2 pg Normal No Dec 23 te mean 2016 corpuscul on in 10:20 PM ar source hemoglobi data n [Entitic mass] Erythrocy 31.8 - g/dl Normal No Dec 23 te mean 35.4 inform2016 corpuscul on in 10:20 PM ar source hemoglobi data n concentra tion [Mass/vol ume] by Automated count Erythrocy 82.2 - fl Low No Dec 23 te mean 97.8 inform2016 corpuscul on in 10:20 PM ar volume source [Entitic data volume] by Automated count Monocytes 0.1 - 1.0 K/mm3 Normal No Dec 23 inform2016 [#/volume on in 10:20 PM ] in source Blood by data Automated count Monocytes 1.7 - 9.3 % Normal No Dec 23 /100 inform2016 leukocyte on in 10:20 PM s in source Blood by data Automated count Platelet 7.4 - fl Low No Dec 23 mean 10.4 inform2016 volume on in 10:20 PM [Entitic source volume] data in Blood by Automated count Platelets 142 - 424 K/mm3 No No Dec 23 informati informati 2016 [#/volume on in on in 10:20 PM ] in source source Blood data data Erythrocy 4.2 - 5.4 M/mm3 Normal No Dec 23 meagan informati 2016 [#/volume on in 10:20 PM ] in source Amniotic data fluid Erythrocy 11.5 - % Normal No Dec 23 te 17.5 2016 distribut on in 10:20 PM ion width source [Entitic data volume] by Automated count Leukocyte 4.8 - K/MM3 High No Dec 23 s 10.8 informati 2016 [#/volume on in 10:20 PM ] in source Blood data
--- OUTSIDE RECORDS SUMMARY | 2017-04-15 17:56 | External Medical Summary Rpt | CCD ---
Author Author , LEOBARDO Organization [facility] Address Unknown Phone [email or web address] Immunization Name Date Rout CVX Reac Dose [...]
--- NOTE | 2017-04-15 19:07 | RADIOLOGY REPORT PS360 ---
LUMBAR SPINE 5 VIEWS COMPARISON: MRI scan lumbar spine 08/18/2013 HISTORY: Low back pain after a fall TECHNIQUE: AP lateral and oblique views and spot view lumbosacral junction FINDINGS: There is slightly accentuated lordotic curvature lower lumbar spine. L1-L5 appear intact. There is minor disc space narrowing at the L4-5 level. There is no compression fracture. Is no pars defect. The SI joints are normal. There is prominent gaseous dilatation of the transverse colon with a large amount stool in the hepatic flexure. IMPRESSION: Minor degenerative disease L4-5 otherwise unremarkable lumbar spine.
--- NOTE | 2017-04-15 19:48 | RADIOLOGY REPORT PS360 ---
CT HEAD W/O CONTRAST INDICATION: Patient fell after seizure activity, previous noncontrast CT scan of brain 08/29/2016 Routine axial images for brain followed by additional post-processing axial bone window images. Axial CT scanning from the base of the skull through the vertex to evaluate the brain was performed. Subsequent post processing 2-D CT bone windows were submitted to PACS and are useful to evaluate calvarium, visualize portions of paranasal sinuses, mastoids and base of skull. Multiaxial scans are obtained from the base of the skull to the vertex and performed without contrast. The base of the skull appeared normal. The ventricular system was normal. There was no ischemic infarct or bleed and there were no extra-axial fluid collections. The bony calvarium appeared intact. IMPRESSION: Negative noncontrast CT scan of the brain.
--- NOTE | 2017-04-15 19:52 | RADIOLOGY REPORT PS360 ---
CT CERVICAL SPINE W/O CONT COMPARISON: CT scan cervical spine 08/29/2016 HISTORY: Neck pain after a fall TECHNIQUE: Multiple axial scans of the cervical spine were obtained. Sagittal and coronal reformats were evaluated as well. FINDINGS: The cervical spine is tilted to the right somewhat and is somewhat straightened on the sagittal sequence suggesting muscle spasm. C1-C7 appear intact. Minor disc space narrowing and ossific spurring is seen at the C5-6 and C6-7 levels. There is no fracture or subluxation. The spinal canal is normal in size throughout. The prevertebral soft tissues are normal and the odontoid is normal. IMPRESSION: Findings of muscle spasm along with mild degenerative disc disease C5-6 and C6-7.
[2017-04-15] MEDS ORDERED: ROBAXIN-750750 MG PO (20:05)
[2017-04-15 20:18] VITALS: BP 87/55
== END 2017-04-15 20:15 | disposition home or self-care (01) ==
LOC: ER 16:34
DX: S00.93XA Contusion of unspecified part of head, initial encounter (principal); S30.0XXA Contusion of lower back and pelvis, initial encounter; W01.0XXA Fall on same level from slipping, tripping and stumbling without subsequent striking against object, initial encounter; Y92.009 Unspecified place in unspecified non-institutional (private) residence as the place of occurrence of the external cause; F11.20 Opioid dependence, uncomplicated; F17.210 Nicotine dependence, cigarettes, uncomplicated; E11.9 Type 2 diabetes mellitus without complications; Z79.4 Long term (current) use of insulin; I10 Essential (primary) hypertension; J44.9 Chronic obstructive pulmonary disease, unspecified

== ENCOUNTER 2017-05-09 13:56 | Emergency (ER) | payer MEDICARE, MEDICAID ==
[~2017-05-09] VITALS: Ht 167.6 cm; Wt 106.1 kg
[~2017-05-09 13:56] MED LIST changes: +ROBAXIN-750750 MG PO
--- OUTSIDE RECORDS SUMMARY | 2017-05-09 14:13 | External Medical Summary Rpt | CCD ---
Author Author [employer] Organization [employer] Address Unknown Phone Unavailable Purpose Continuity of Care Document - through 2016
--- OUTSIDE RECORDS SUMMARY | 2017-05-09 14:13 | External Medical Summary Rpt | CCD ---
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 12-21-2016 IA, UNSPECIFIED F41.8 OTHER 12-21-2016 SPECIFIED ANXIETY DISORDERS I50.9 HEART 12-21-2016 FAILURE, UNSPECIFIED J44.9 CHRONIC 12-21-2016 OBSTRUCTIVE PULMONARY DISEASE, UNSPECIFIED M79.606 PAIN IN 12-21-2016 LEG, UNSPECIFIED R20.0 ANESTHESIA 12-21-2016 OF SKIN R60.9 EDEMA, 12-21-2016 UNSPECIFIED Z79.4 INSPECTOR WELDED PARTS 12-21-2016 (CURRENT) USE OF INSULIN Z88.1 ALLERGY 12-21-2016 STATUS TO OTHER ANTIBIOTIC AGENTS STATUS Z88.2 ALLERGY 12-21-2016 STATUS TO SULFONAMIDE S STATUS E11.9 TYPE 2 11-30-2016 DIABETES MELLITUS WITHOUT COMPLICATIO NS F17.210 NICOTINE 11-30-2016 DEPENDENCE, CIGARETTES, UNCOMPLICAT ED J44.1 CHRONIC 11-30-2016 OBSTRUCTIVE PULMONARY DISEASE WITH (ACUTE) EXACERBATIO N R07.89 OTHER CHEST 11-30-2016 PAIN R07.9 CHEST PAIN, 11-30-2016 UNSPECIFIED Z90.49 ACQUIRED 11-30-2016 ABSENCE OF OTHER SPECIFIED PARTS OF DIGESTIVE TRACT Z90.710 ACQUIRED 11-30-2016 ABSENCE OF BOTH CERVIX AND UTERUS Z98.51 TUBAL 11-30-2016 LIGATION STATUS E07.9 DISORDER OF 09-08-2016 THYROID, UNSPECIFIED E78.00 PURE 09-08-2016 HYPERCHOLES TEROLEMIA, UNSPECIFIED F32.9 MAJOR 09-08-2016 DEPRESSIVE DISORDER, SINGLE EPISODE, UNSPECIFIED F41.9 ANXIETY 09-08-2016 DISORDER, UNSPECIFIED I10 ESSENTIAL 09-08-2016 (PRIMARY) HYPERTENSIO N 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 J40 BRONCHITIS, 09-08-2016 NOT SPECIFIED ACUTE OR CHRONIC K21.9 GASTRO-ESOP 09-08-2016 HAGEAL REFLUX DISEASE WITHOUT ESOPHAGITIS R05 COUGH 09-08-2016 Z79.1 CHCF 09-08-2016 (CURRENT) USE OF NON-STEROID AL ANTI-INFLAM MATORIES (NSAID) Z79.82 INSPECTOR WELDED PARTS 09-08-2016 (CURRENT) USE OF ASPIRIN Z79.899 OTHER LONG 09-08-2016 TERM (CURRENT) DRUG THERAPY Z88.3 ALLERGY 09-08-2016 STATUS TO OTHER ANTI-INFECT ANNABELLA AGENTS STATUS 244.9 250.00 250.01 272.4 401.9 599.0 724.5 Chronic Drury back pain [facility] [id number] [facility] B37.2 CANDIDIASIS OF SKIN AND NAIL E03.9 HYPOTHYROID ISM, UNSPECIFIED E11.649 TYPE 2 DIABETES MELLITUS WITH HYPOGLYCEMI A WITHOUT COMA E78.4 OTHER HYPERLIPIDE NIKOLAY E86.0 DEHYDRATION E87.6 HYPOKALEMIA F11.20 OPIOID DEPENDENCE, UNCOMPLICAT ED G43.909 MIGRAINE, UNSP, NOT INTRACTABLE , WITHOUT STATUS MIGRAINOSUS H70.90 UNSPECIFIED MASTOIDITIS , UNSPECIFIED EAR H92.02 OTALGIA, LEFT EAR J04.0 ACUTE LARYNGITIS J06.9 ACUTE UPPER RESPIRATORY INFECTION, UNSPECIFIED J18.9 PNEUMONIA, UNSPECIFIED ORGANISM J45.909 UNSPECIFIED ASTHMA, UNCOMPLICAT ED K52.9 NONINFECTIV [...] M54.5 LOW BACK PAIN M54.9 DORSALGIA, UNSPECIFIED M79.604 PAIN IN RIGHT LEG N23 UNSPECIFIED RENAL COLIC N28.9 DISORDER OF KIDNEY AND URETER, UNSPECIFIED N39.0 URINARY TRACT INFECTION, SITE NOT SPECIFIED R10.10 UPPER ABDOMINAL PAIN, UNSPECIFIED R10.84 GENERALIZED ABDOMINAL PAIN R11.0 NAUSEA R13.10 DYSPHAGIA, UNSPECIFIED R16.0 HEPATOMEGAL Y, NOT [...] UNSPECIFIED FRONT WALL OF THORAX, INIT ENCNTR S30.0XXA CONTUSION OF LOWER BACK AND PELVIS, INITIAL ENCOUNTER S40.012A CONTUSION OF LEFT SHOULDER, INITIAL ENCOUNTER [...] T14.8 OTHER INJURY OF UNSPECIFIED BODY REGION W19.XXXA UNSPECIFIED FALL, INITIAL ENCOUNTER Z20.6 CONTACT W AND (SUSPECTED) EXPOSURE TO HUMAN IMMUNODEF VIRUS Z86.69 PERSONAL HISTORY OF DIS OF THE NERVOUS SYS AND SENSE ORGANS Z86.79 PERSONAL HISTORY OF OTHER DISEASES OF THE CIRCULATORY SYSTEM Z98.890 OTHER SPECIFIED POSTPROCEDU RAL STATES Allergies, Adverse Reactions, Alerts Type Drug Allergy Adverse Reaction to Substance Substance Reaction Severity SULFA (sulfonamide) I-HIVES Unknown Levofloxacin I-HIVES Unknown Clinical Alert Notifications Alert Diabetes: no eye exam in the last 365 days Diabetes: no lipid panel in the last 365 days Diabetes: no urine protein screening in the last 365 days Medications Na ND Rx Da [...] ti 4 ve MG /2 ML AL Vital Signs 04-03-2013 21:27 Name Value Interpretat [...] Urine by Screen method (01-09-2017 02:27) Ampheta -18-2 NEGATIV <1000 complet mine 017 E ed [Presen 02:27 ce] in Urine by Screen method 11-Hydr -18-2 NEGATIV <50 complet oxy 017 E ed delta-9 02:27 tetrahy drocann abinol [Presen ce] in Unspeci fied specime n Urinalysis dipstick W Reflex Microscopic panel in Urine (01-09-2017 02:27) Bacteri -18-2 2+ O complet a 017 ed [Presen 02:27 ce] in Urine sedimen t by Light microsc opy Erythro -18-2 OCC 0 complet cytes 017 ed [Presen 02:27 ce] in Urine sedimen t by Light microsc opy Epithel 01-09-2 TNTC 0#/hp complet ial 017 f - ed cells.s 02:27 5#/hp quamous f [Presen ce] in Urine sedimen t by Microsc opy high power field Leukocy 01-09-2 20-50 O complet meagan 017 wbc/hpf ed [#/volu 02:27 me] in Urine Yeast 01-09-2 3+ NONE complet [Presen 017 ed ce] in 02:27 Urine sedimen t by Light microsc opy Urinalysis dipstick W Reflex Microscopic panel in Urine (01-09-2017 02:27) Appeara --2 SL CLEAR complet nce of 017 CLOUDY ed Urine 02:27 Bilirub --2 NEGATIV NEG complet in 017 E ed [Presen 02:27 ce] in Urine by Test strip Erythro -18-2 NEGATIV NEG complet cytes 017 E ed [Presen 02:27 ce] in Urine Color 01-09-2 YELLOW YELLOW complet of 017 ed Urine 02:27 Ketones -18-2 NEGATIV NEG complet 017 E ed [Presen 02:27 ce] in Urine by Automat ed test strip Mucus -18-2 2+ NEG Abnorma complet [Presen 017 l ed ce] in 02:27 Urine sedimen t by Light microsc opy Nitrite -18-2 NEGATIV NEG complet 017 E ed [Presen 02:27 ce] in Urine by Test strip Urobili 07-18-2 0.2 NEG complet nogen 017 ed [Presen 02:27 ce] in Urine by Test strip COMPREHENSIVE METABOLIC PANEL (04-03-2013 18:10) Glucose 10-2 336 74-106 complet 013 mg/dL ed Bld-mCn 18:10 c BUN 10-2 10 7-18 complet Bld-mCn 013 mg/dL ed c 18:10 Creat 04-03-2 1.0 0.6-1.0 complet SerPl-m 013 mg/dL ed Cnc 18:10 ESTIMAT 10-2 127 50-200 complet ED 013 ML/MIN ed CREATIN 18:10 INE CLEARAN CE GFR 04-03-2 58 59- complet (ESTIMA 013 ML/MIN ed ML) 18:10 Sodium 10-2 138 136-145 complet SerPl-s 013 mmoL/L ed Cnc 18:10 Potassi 04-03-2 3.5 3.5-5.1 complet um 013 mmoL/L ed SerPl-s 18:10 Cnc Chlorid 10-2 101 98-107 complet e 013 mmoL/L ed SerPl-s 18:10 Cnc CO2 10-2 22 21.0-32 complet SerPl-s 013 mmoL/L .0 ed Cnc 18:10 Calcium 10-2 9.0 8.5-10. complet 013 mg/dL 1 ed SerPl-m 18:10 Cnc Prot 10-2 7.3 6.4-8.2 complet SerPl-m 013 gm/dL ed Cnc 18:10 Albumin 10-2 3.6 3.4-5.0 complet 013 gm/dL ed SerPl-m 18:10 Cnc Globuli 10-2 3.7 1.3-3.2 complet n 013 gm/dL ed Ser-mCn 18:10 c Albumin 10-2 1.0 UNK 1.1-1.8 complet /Glob 013 ed SerPl-m 18:10 Rto Bilirub 10-2 0.3 0.2-1.0 complet 013 mg/dL ed SerPl-m 18:10 Cnc AST 10-2 35 U/L 15-37 complet SerPl-c 013 ed Cnc 18:10 ALT 10-2 81 U/L 30-65 complet SerPl-c 013 ed Cnc 18:10 ALP 10-10-2 147 U/L 50-136 complet SerPl-c 013 ed Cnc 18:10 LIPASE (04-03-2013 18:10) LIPASE 10-10-2 53 U/L 73-393 complet 013 ed 18:10 [...] complet 013 .8 ed 18:10 MCH RBC 1010-2 29.1 pg 27-31.2 complet Qn 013 ed [...] 013 K/mm3 ed Bld 18:10 Auto Lymphoc 10-2 2.7 0.7-4.5 complet ytes Fr 013 K/mm3 ed Bld 18:10 Auto Monocyt 1010-2 0.4 0.1-1.0 complet es # 013 K/mm3 ed Bld 18:10 Auto Eosinop 10-2 0.4 0.0-0.4 complet hil # 013 K/mm3 ed Bld 18:10 Auto Basophi 10-2 0.1 0-0.2 complet ls # 013 K/MM3 ed Bld 18:10 Auto Encounters Encounter Start End Date Code Location Performer Type Date Emergency WALLY Shah MD (ER) 3 00:03 3 00:46 [facility] Emergency WALLY Shah MD (ER) 3 18:37 3 21:35 [facility]
--- OUTSIDE RECORDS SUMMARY | 2017-05-09 14:13 | External Medical Summary Rpt | CCD ---
Author Author , LEOBARDO Organization [facility]ICMEL[facility] Address Unknown Phone [email or web address] Immunization Name Date Rout CVX Reac Dose [...]
--- OUTSIDE RECORDS SUMMARY | 2017-05-09 14:13 | External Medical Summary Rpt | CCD ---
Author Author , LEOBARDO Organization [facility] Address Unknown Phone [email or web address] Immunization Name Date Rout CVX Reac Dose [...]
--- OUTSIDE RECORDS SUMMARY | 2017-05-09 14:13 | External Medical Summary Rpt | CCD ---
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 J40 BRONCHITIS, 09-08-2016 NOT SPECIFIED ACUTE OR CHRONIC K21.9 GASTRO-ESOP 09-08-2016 HAGEAL REFLUX DISEASE WITHOUT ESOPHAGITIS R05 COUGH 09-08-2016 Z79.1 ALF 09-08-2016 (CURRENT) USE OF NON-STEROID AL ANTI-INFLAM MATORIES (NSAID) Z79.82 SILO ERECTOR 09-08-2016 (CURRENT) USE OF ASPIRIN Z79.899 OTHER LONG 09-08-2016 TERM (CURRENT) DRUG THERAPY Z88.3 ALLERGY 09-08-2016 STATUS TO OTHER ANTI-INFECT ANNABELLA AGENTS STATUS 244.9 250.00 250.01 272.4 401.9 599.0 724.5 Chronic [place] back pain [facility] [id number] [facility] B37.2 CANDIDIASIS OF SKIN AND NAIL E03.9 [...] Shah MD (ER) 3 00:03 3 00:46 [facility] Emergency WALLY Shah MD (ER) 3 18:37 3 21:35 [facility]
--- OUTSIDE RECORDS SUMMARY | 2017-05-09 14:14 | External Medical Summary Rpt ---
[...] Normal No Jan 25 dioxide, 32.0 informati 2017 total on in 12:37 PM [Moles/vo source [...]
--- NOTE | 2017-05-09 14:17 | Emergency Room Report ---
History of Present Illness Time Seen by [id number] Presenting Problem in Triage Pt arrived:Walked Presenting Problem:PT C/O OF DIARRHEA AND VOMITITNG FOR 5 DAYS. STATES SHE CAN'T KEEP ANYTHING DOWN. PT WAS SENT HERE FROM THE GI OFFICE. 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 N Clinical Suspician of Infection? N Mental Status: 1 - Regular (Normal Baseline) Sepsis Risk:Low Sepsis Risk Have you (or family members/close friends) recently traveled outside the [place]? N If Yes, where/when: Have you had exposure to infectious disease within the past month? TB? Other? Specify: Source patient, RN notes reviewed, RN/MD Exam Limitations no limitations Comment This is a 56-year-old feel patient sent to the emergency room from the gastrointestinal clinic by Chepe Mo, with nausea, vomiting, diarrhea, for the past 4-5 days, unable to hold anything down. 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 Chepe would like patient evaluated in the emergency room and receive IV fluids, suspecting possible dehydration. ALLERGIES Coded Allergies: Sulfa (Sulfonamide Antibiotics) (04/03/17) levofloxacin (From LEVAQUIN) (04/03/17) Home Medications Active Scripts Methocarbamol (Robaxin 750MG) 750 MG PO Q8 #21 TAB Prov: 04/15/17 Reported Medications Hydroxyzine Pamoate 25 MG PO Q6 #90 Dicyclomine Hcl (Bentyl (Generic) 10MG Capsule) 10 MG PO Q6H #120 Tiotropium [place] (Spiriva) 1 PUFF IH DAILY #30 Furosemide 40 MG PO BID #30 TAB FLUTICASONE/VILANTEROL (Breo Ellipta 100-25 Mcg INH) 1 POW IH DAILY #60 INSULIN ASPART PROTAM & ASPART (Novolog Mix 70-30 Vial) 60 UNITS SC BID Metformin HCL (Metformin) 500 MG PO DAILY Levothyroxine Sodium (Synthroid 0.1MG) 100 MCG PO DAILY Lovastatin 10 MG PO DAILY #15 Omeprazole (Omeprazole 40MG) 40 MG PO DAILY #30 History Medical History General CAD? No Angina: Yes [place]: No Hypertension? Yes Hyperlipidemia? No CHF? Yes DVT? No PE? No COPD? Yes Asthma? Yes Anemia? Yes GERD? No Gastric ulcers? No GI Bleed? No Hernia? Yes Thyroid Problems? No Hypothyroidism? No CVA? No Seizures? 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 Yes Renal Insuffiency? No End Stage Renal Disease? No UTI? Yes Stones? No BPH? No GB Disease: Yes Nephritic Syndrome? No Asplenia? No Hepatitis? No Sickle Cell Disease? No Arthritis? Yes Migraines? No Cataracts? Yes Glaucoma? No MRSA? No HIV? No TB? No Anxiety? No Depression? No Cancer? No More? 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 Hx LMP menopause Family History Family Hx Diabetes Yes CAD Yes Hypertension Yes Hyperlipidemia No Cancer Yes TB No Social History Smoking Hx Smoker: Current Every Day Smoker Tobacco: Yes Type Cigarettes Packs/day 1 1/2 - 2 Packs Alcohol Alcohol: No Review of Systems All Other Systems Reviewed and Negative Gastrointestinal see HPI, constipation, nausea, vomiting Physical Exam Vital Signs Vital Signs Date Time Temp Pulse Resp B/P Pulse O2 O2 Flow FiO2 Ox Delivery Rate 05/09 1704 98.0 57 18 121/69 97 05/09 1638 98.0 57 18 121/69 97 05/09 1522 98.0 55 18 109/62 97 05/09 1403 98.2 62 20 142/84 95 05/09 1402 98.2 62 20 142/84 95 General Appearance normal appearance, WD/WN, mild distress Respiratory Status Yes: trachea midline, chest symmetrical, non tender chest. No: respiratory distress. Lung Sounds bilateral: normal breath sounds, lungs clear. 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 No Comment 1615-upon reevaluation patient appears medically stable, clinically improving, in no acute distress. Patient had no witnessed episodes of vomiting or diarrhea while in the emergency room. Advise patient of results obtained, need to initiate antibiotics for her urinary tract infection and treat her nausea/ vomiting with ODT Zofran. Patient advised to follow-up with PCP if not better within 2 days. Results/Orders Laboratory Tests 05/09/17 1415: Urine Color YELLOW, Urine Appearance SL CLOUDY, Urine pH 5.5, Ur Specific [place] 1.010, Urine Protein NEGATIVE, Urine Ketones NEGATIVE, Urine Blood TRACE -LYSED, Urine Nitrate POSITIVE H, Urine Bilirubin NEGATIVE, Urine Urobilinogen 0.2, Ur Leukocyte Esterase 3+ H, Urine RBC NONE, Urine WBC 20-50, Ur Squamous Epith Cells 20-50, Urine Bacteria 4+, Urine Mucus 1+, Urine Glucose TRACE H 05/09/17 1405: Sodium 135 L, Potassium 4.9, Chloride 101, Carbon Dioxide 25, BUN 18, Creatinine 0.9, Estimated Creat Clear 114, Estimated GFR (MDRD) 64, Glucose 199 H, Calcium 9.5, Total Bilirubin 0.2, AST 10 L, ALT 17, Alkaline Phosphatase 118 H, Total Protein 7.9, Albumin 3.9, Globulin 4.0 H, Albumin/Globulin Ratio 1.0 L, Amylase 47, Lipase 86, WBC 11.4 H, RBC 4.65, Hgb 12.4, Hct 38.4, MCV 82.6, RDW 13.2, Plt Count 397, MPV 6.9 L, Gran % 63.6, Gran # 7.2, Lymphocytes % 28.4 , Monocytes % 4.0, Eosinophils % 3.2, Basophils % 0.7, Lymphocytes # 3.2, Monocytes # 0.5, Eosinophils # 0.4, Basophils # 0.1, PUBS MCHC 32.3, MCH 26.7 L Current Medication Orders Sig/Lyla Start time Last Medication Dose Route Stop Time Status Admin Lidocaine HCl 0 .STK-MED ONE 05/09 1602 DC .ROUTE Ceftriaxone Sodium 0 .STK-MED ONE 05/09 1601 DC .ROUTE Promethazine HCl 0 .STK-MED ONE 05/09 1601 DC .ROUTE Sodium Chloride 25 ML .STK-MED ONE 05/09 1601 DC IV Ceftriaxone Sodium 1 GM ONCE ONE 05/09 1545 DC 05/09 IM 05/09 1546 1611 Lidocaine HCl 0 ONCE ONE 05/09 1545 DC 05/09 IM 05/09 1546 1612 Promethazine HCl 12.5 MG ONCE ONE 05/09 1545 DC 05/09 IV 05/09 1546 1612 Sodium Chloride 25 ML ONCE ONE 05/09 1545 DC 05/09 IV 05/09 1559 1613 Ondansetron HCl 4 MG ONCE ONE 05/09 1415 DC 05/09 IV 05/09 1416 1417 Sodium Chloride 10 ML PRN PRN 05/09 1415 DCD IV 05/10 1411 Ondansetron HCl 0 .STK-MED ONE 05/09 1413 DC .ROUTE Sodium Chloride 1,000 ML .STK-MED ONE 05/09 1413 DC IV Sodium Chloride 1,000 ML .Q1H1M 05/09 1400 DC 05/09 IV 05/09 1500 1417 Sodium Chloride 10 ML PRN PRN 05/09 1400 DCD IV 05/10 1359 Orders Procedure Date/time Status CULTURE, URINE 05/09 1415 Active IV SALINE LOCK 05/09 1411 Active DIARRHEA PANEL, PCR 05/09 1403 Active URINALYSIS/COMPLETE 05/09 1359 Complete LIPASE 05/09 1359 Complete CBC WITH AUTO DIFF 05/09 1359 Complete CHEM 12 PROFILE 05/09 1359 Complete AMYLASE 05/09 1359 Complete Departure Departure Time of Disposition 1623 Disposition DC Home or Self Care(routine) Clinical Impression Primary Impression: Viral gastroenteritis Secondary Impressions: Dehydration Urinary tract infection Qualifiers: Urinary tract infection type: site unspecified Hematuria presence: without hematuria Qualified Code: N39.0 - Urinary tract infection, site not specified Condition STABLE Referrals SIMBA FULLER APRN (Family): 2 Days-Call Office if not better Patient Instructions DI for Dehydration -- Adult, DI for Urinary Tract Infection (UTI), DI for Viral Gastroenteritis -- Adult Additional Instructions Please take the medications prescribed as directed, increase your fluid intake, follow-up with your family physician within 2 days if no better. Discharge Counseling Counseled pt/family regarding diagnosis, test results, medications/RX, home care, follow up needs Comment Please take the medications prescribed as directed, increase your fluid intake, follow-up with your family physician within 2 days if no better. Prescriptions Current Visit Scripts ONDANSETRON HCL (Zofran 4MG Tab) 4 MG PO Q6HP PRN NAUSEA AND VOMITING #20 TAB NITROFURANTOIN MONOHYD/M-CRYST (Macrobid 100 MG Capsule) 100 MG PO BID #14 CAP ED Critical Care Critical Care No at 1840
--- NOTE | 2017-05-09 14:17 | Emergency Room Report ---
History of Present Illness Time Seen by [id number] Presenting Problem in Triage Pt arrived:Walked Presenting Problem:PT C/O OF DIARRHEA AND VOMITITNG FOR 5 DAYS. STATES SHE CAN'T KEEP ANYTHING DOWN. PT WAS SENT HERE FROM THE GI OFFICE. Onset of symptoms date/time:/ or onset unknown for:MEDICAL HX UNKNOWN Treatment Prior to Arrival: PT WAS SEEN BY GI MEDICAID PLAN COMPLIANCE DIRECTOR Provided by:SELF Sepsis Risk Assessment: Temp: 98.2 B/P: 142/84 MAP: 103 Pulse: 62 Resp: 20 Recent fever? N Clinical Suspician of Infection? N Mental Status: 1 - Regular (Normal Baseline) Sepsis Risk:Low Sepsis Risk Have you (or family members/close friends) recently traveled outside the [place]? N If Yes, where/when: Have you had exposure to infectious disease within the past month? TB? Other? Specify: Source patient, RN notes reviewed, RN/MD Exam Limitations no limitations Comment This is a 56-year-old feel patient sent to the emergency room from the gastrointestinal clinic by Chepe Mo, with nausea, vomiting, diarrhea, for the past 4-5 days, unable to hold anything down. 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 Chepe would like patient evaluated in the emergency room and receive IV fluids, suspecting possible dehydration. ALLERGIES Coded Allergies: Sulfa (Sulfonamide Antibiotics) (04/03/17) levofloxacin (From LEVAQUIN) (04/03/17) Home Medications Active Scripts Methocarbamol (Robaxin 750MG) 750 MG PO Q8 #21 TAB Prov: 04/15/17 Reported Medications Hydroxyzine Pamoate 25 MG PO Q6 #90 Dicyclomine Hcl (Bentyl (Generic) 10MG Capsule) 10 MG PO Q6H #120 Tiotropium [place] (Spiriva) 1 PUFF IH DAILY #30 Furosemide 40 MG PO BID #30 TAB FLUTICASONE/VILANTEROL (Breo Ellipta 100-25 Mcg INH) 1 POW IH DAILY #60 INSULIN ASPART PROTAM & ASPART (Novolog Mix 70-30 Vial) 60 UNITS SC BID Metformin HCL (Metformin) 500 MG PO DAILY Levothyroxine Sodium (Synthroid 0.1MG) 100 MCG PO DAILY Lovastatin 10 MG PO DAILY #15 Omeprazole (Omeprazole 40MG) 40 MG PO DAILY #30 History Medical History General CAD? No Angina: Yes [place]: No Hypertension? Yes Hyperlipidemia? No CHF? Yes DVT? No PE? No COPD? Yes Asthma? Yes Anemia? Yes GERD? No Gastric ulcers? No GI Bleed? No Hernia? Yes Thyroid Problems? No Hypothyroidism? No CVA? No Seizures? 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 Yes Renal Insuffiency? No End Stage Renal Disease? No UTI? Yes Stones? No BPH? No GB Disease: Yes Nephritic Syndrome? No Asplenia? No Hepatitis? No Sickle Cell Disease? No Arthritis? Yes Migraines? No Cataracts? Yes Glaucoma? No MRSA? No HIV? No TB? No Anxiety? No Depression? No Cancer? No More? 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 Hx LMP menopause Family History Family Hx Diabetes Yes CAD Yes Hypertension Yes Hyperlipidemia No Cancer Yes TB No Social History Smoking Hx Smoker: Current Every Day Smoker Tobacco: Yes Type Cigarettes Packs/day 1 1/2 - 2 Packs Alcohol Alcohol: No Review of Systems All Other Systems Reviewed and Negative Gastrointestinal see HPI, constipation, nausea, vomiting Physical Exam Vital Signs Vital Signs Date Time Temp Pulse Resp B/P Pulse O2 O2 Flow FiO2 Ox Delivery Rate 05/09 1704 98.0 57 18 121/69 97 05/09 1638 98.0 57 18 121/69 97 05/09 1522 98.0 55 18 109/62 97 05/09 1403 98.2 62 20 142/84 95 05/09 1402 98.2 62 20 142/84 95 General Appearance normal appearance, WD/WN, mild distress Respiratory Status Yes: trachea midline, chest symmetrical, non tender chest. No: respiratory distress. Lung Sounds bilateral: normal breath sounds, lungs clear. 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 No Comment 1615-upon reevaluation patient appears medically stable, clinically improving, in no acute distress. Patient had no witnessed episodes of vomiting or diarrhea while in the emergency room. Advise patient of results obtained, need to initiate antibiotics for her urinary tract infection and treat her nausea/ vomiting with ODT Zofran. Patient advised to follow-up with PCP if not better within 2 days. Results/Orders Laboratory Tests 05/09/17 1415: Urine Color YELLOW, Urine Appearance SL CLOUDY, Urine pH 5.5, Ur Specific [place] 1.010, Urine Protein NEGATIVE, Urine Ketones NEGATIVE, Urine Blood TRACE -LYSED, Urine Nitrate POSITIVE H, Urine Bilirubin NEGATIVE, Urine Urobilinogen 0.2, Ur Leukocyte Esterase 3+ H, Urine RBC NONE, Urine WBC 20-50, Ur Squamous Epith Cells 20-50, Urine Bacteria 4+, Urine Mucus 1+, Urine Glucose TRACE H 05/09/17 1405: Sodium 135 L, Potassium 4.9, Chloride 101, Carbon Dioxide 25, BUN 18, Creatinine 0.9, Estimated Creat Clear 114, Estimated GFR (MDRD) 64, Glucose 199 H, Calcium 9.5, Total Bilirubin 0.2, AST 10 L, ALT 17, Alkaline Phosphatase 118 H, Total Protein 7.9, Albumin 3.9, Globulin 4.0 H, Albumin/Globulin Ratio 1.0 L, Amylase 47, Lipase 86, WBC 11.4 H, RBC 4.65, Hgb 12.4, Hct 38.4, MCV 82.6, RDW 13.2, Plt Count 397, MPV 6.9 L, Gran % 63.6, Gran # 7.2, Lymphocytes % 28.4 , Monocytes % 4.0, Eosinophils % 3.2, Basophils % 0.7, Lymphocytes # 3.2, Monocytes # 0.5, Eosinophils # 0.4, Basophils # 0.1, PUBS MCHC 32.3, MCH 26.7 L Current Medication Orders Sig/Lyla Start time Last Medication Dose Route Stop Time Status Admin Lidocaine HCl 0 .STK-MED ONE 05/09 1602 DC .ROUTE Ceftriaxone Sodium 0 .STK-MED ONE 05/09 1601 DC .ROUTE Promethazine HCl 0 .STK-MED ONE 05/09 1601 DC .ROUTE Sodium Chloride 25 ML .STK-MED ONE 05/09 1601 DC IV Ceftriaxone Sodium 1 GM ONCE ONE 05/09 1545 DC 05/09 IM 05/09 1546 1611 Lidocaine HCl 0 ONCE ONE 05/09 1545 DC 05/09 IM 05/09 1546 1612 Promethazine HCl 12.5 MG ONCE ONE 05/09 1545 DC 05/09 IV 05/09 1546 1612 Sodium Chloride 25 ML ONCE ONE 05/09 1545 DC 05/09 IV 05/09 1559 1613 Ondansetron HCl 4 MG ONCE ONE 05/09 1415 DC 05/09 IV 05/09 1416 1417 Sodium Chloride 10 ML PRN PRN 05/09 1415 DCD IV 05/10 1411 Ondansetron HCl 0 .STK-MED ONE 05/09 1413 DC .ROUTE Sodium Chloride 1,000 ML .STK-MED ONE 05/09 1413 DC IV Sodium Chloride 1,000 ML .Q1H1M 05/09 1400 DC 05/09 IV 05/09 1500 1417 Sodium Chloride 10 ML PRN PRN 05/09 1400 DCD IV 05/10 1359 Orders Procedure Date/time Status CULTURE, URINE 05/09 1415 Active IV SALINE LOCK 05/09 1411 Active DIARRHEA PANEL, PCR 05/09 1403 Active URINALYSIS/COMPLETE 05/09 1359 Complete LIPASE 05/09 1359 Complete CBC WITH AUTO DIFF 05/09 1359 Complete CHEM 12 PROFILE 05/09 1359 Complete AMYLASE 05/09 1359 Complete Departure Departure Time of Disposition 1623 Disposition DC Home or Self Care(routine) Clinical Impression Primary Impression: Viral gastroenteritis Secondary Impressions: Dehydration Urinary tract infection Qualifiers: Urinary tract infection type: site unspecified Hematuria presence: without hematuria Qualified Code: N39.0 - Urinary tract infection, site not specified Condition STABLE Referrals SIMBA FULLER APRN (Family): 2 Days-Call Office if not better Patient Instructions DI for Dehydration -- Adult, DI for Urinary Tract Infection (UTI), DI for Viral Gastroenteritis -- Adult Additional Instructions Please take the medications prescribed as directed, increase your fluid intake, follow-up with your family physician within 2 days if no better. Discharge Counseling Counseled pt/family regarding diagnosis, test results, medications/RX, home care, follow up needs Comment Please take the medications prescribed as directed, increase your fluid intake, follow-up with your family physician within 2 days if no better. Prescriptions Current Visit Scripts ONDANSETRON HCL (Zofran 4MG Tab) 4 MG PO Q6HP PRN NAUSEA AND VOMITING #20 TAB NITROFURANTOIN MONOHYD/M-CRYST (Macrobid 100 MG Capsule) 100 MG PO BID #14 CAP ED Critical Care Critical Care No at 1840
[2017-05-09 14:26] LABS: HEMOGLOBIN 12.4 g/dL (12.2-16.2); LYMPH # 3.2 K/mm3 (0.7-4.5); LYMPH % 28.4 % (10-50.0)
[2017-05-09 14:27] LABS: URINE BILIRUBIN - DIPSTICK NEGATIVE (NEG); URINE BLOOD TRACE-LYSED (NEG)
[2017-05-09 15:31] LABS: URINE SQUAMOUS CELLS 20-50 #/hpf (0-5)
[2017-05-09] MEDS ORDERED: ZOFRAN4 MG PO (16:25)
[2017-05-09] MEDS ORDERED: MACROBID100 M3 PO (16:26)
[2017-05-09 17:04] VITALS: BP 121/69
== END 2017-05-09 17:06 | disposition home or self-care (01) ==
LOC: ER 13:56
PROVIDERS: Emergency Medicine
DX: A08.4 Viral intestinal infection, unspecified (principal); I10 Essential (primary) hypertension; J44.9 Chronic obstructive pulmonary disease, unspecified; E11.9 Type 2 diabetes mellitus without complications; Z79.4 Long term (current) use of insulin; F17.210 Nicotine dependence, cigarettes, uncomplicated; R82.99 Other abnormal findings in urine
CPT/HCPCS: J2405

== ENCOUNTER 2017-05-14 14:58 | Emergency (ER) | payer MEDICARE, MEDICAID ==
[~2017-05-14] VITALS: Ht 167.6 cm; Wt 106.6 kg
[~2017-05-14 14:58] MED LIST changes: +ZOFRAN4 MG PO
--- OUTSIDE RECORDS SUMMARY | 2017-05-14 15:11 | External Medical Summary Rpt | CCD ---
Author Author , LEOBARDO Organization [facility] Address Unknown Phone [email or web address] Immunization Name Date Rout CVX Reac Dose [...]
--- OUTSIDE RECORDS SUMMARY | 2017-05-14 15:11 | External Medical Summary Rpt | CCD ---
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 J40 BRONCHITIS, 09-08-2016 NOT SPECIFIED ACUTE OR CHRONIC K21.9 GASTRO-ESOP 09-08-2016 HAGEAL REFLUX DISEASE WITHOUT ESOPHAGITIS R05 COUGH 09-08-2016 Z79.1 HAND FUNNEL COATER 09-08-2016 (CURRENT) USE OF NON-STEROID AL ANTI-INFLAM MATORIES (NSAID) Z79.82 CORRECTION 09-08-2016 (CURRENT) USE OF ASPIRIN Z79.899 OTHER LONG 09-08-2016 TERM (CURRENT) DRUG THERAPY Z88.3 ALLERGY 09-08-2016 STATUS TO OTHER ANTI-INFECT ANNABELLA AGENTS STATUS 244.9 250.00 250.01 272.4 401.9 599.0 724.5 Chronic [place] back pain [facility] [id number] [facility] A08.4 VIRAL INTESTINAL INFECTION, UNSPECIFIED B37.2 CANDIDIASIS OF SKIN AND NAIL E03.9 [...] Order Detail nces retati t Range on Antibiotic sensitivity studies (05-12-2017 09:33) Ampicil = 4 complet marilee 017 ug/ml ed suscept 09:33 ibility test by minimum inhibit ory concent ration Amoxici 11-18-2 = 4 complet llin/cl 017 ug/ml ed avulana 09:33 te suscept ibility test by minimum inhibit ory concent ration Ceftazi 11-18-2 <= 1 complet dime/po 017 ug/ml ed tassium 09:33 clavula mark suscept ibility test by minimum inhibit ory concent ration Ceftria 18-2 = 4 complet xone 017 ug/ml ed suscept 09:33 ibility test by minimum inhibit ory concent ration Cefazol -18-2 <= 4 complet in 017 ug/ml ed suscept 09:33 ibility test by minimum inhibit ory concent ration Extende -18-2 = ug/ml complet d 017 ed spectru 09:33 m beta lactama se (ESBL) produci ng bacteri a suscept ibility test by minimum inhibit ory Ertapen -18-2 <= 0.5 complet em 017 ug/ml ed suscept 09:33 ibility test by minimum inhibit ory concent ration Cefepim 18-2 <= 1 complet e 017 ug/ml ed suscept 09:33 ibility test by minimum inhibit ory concent ration Nitrofu 18-2 = 32 complet rantoin 017 ug/ml ed 09:33 suscept ibility test by minimum inhibit ory concent ration Gentami 18-2 <= 1 complet stephanie 017 ug/ml ed suscept 09:33 ibility test by minimum inhibit ory concent ration Imipene 18-2 = 1 complet m 017 ug/ml ed suscept 09:33 ibility test by minimum inhibit ory concent ration Levoflo -18-2 <= 0.12 complet xacin 017 ug/ml ed suscept 09:33 ibility test by minimum inhibit ory concent ration Ampicil -18-2 <= 2/1 complet marilee/sul 017 ug/ml ed bactam 09:33 suscept ibility test by minimum inhibit ory concent ration Trimeth -18-2 <= 20 complet oprim/s 017 ug/ml ed ulfamet 09:33 hoxazol e suscept ibility test by minimum inhibit ory concent ration Tobramy -18-2 <= 1 complet stephanie 017 ug/ml ed suscept 09:33 ibility test by minimum inhibit ory concent ration Piperac <= 4 complet illin/t 017 ug/ml ed azobact 09:33 am suscept ibility test by minimum inhibit ory concent ration Urine culture (05-09-2017 14:15) Urine [id number] complet culture 017 07 ed 14:15 Escheri alena coli SCT EC ESCHERI ALENA COLI L Urinalysis with microscopy (05-09-2017 14:15) Urine 20 - 50 O complet leukocy 017 ed meagan 14:15 wbc/hpf count (number /volume ) Urine = 1.010 1.005-1 complet specifi 017 .030 ed c 14:15 gravity measure ment Erythro NONE 0 complet cytes 017 NONE L ed detecti 14:15 rbc/hpf on in urine sedimen t Urine = NEG complet protein 017 NEGATIV ed 14:15 E mg/dL measure ment by automat ed t Urine = 5.5 5.0-8.5 complet pH 017 ed 14:15 Urine POSITIV NEG complet nitrite 017 E ed 14:15 POSITIV detecti E L on by test strip Mucus 1+ 1+ L OCC complet detecti 017 ed on in 14:15 urine sedimen t by lig Mucus 3+ 3+ L NEG complet detecti 017 ed on in 14:15 urine sedimen t by lig Urine NEGATIV NEG complet ketones 017 E ed 14:15 NEGATIV detecti E L on by mg/dL automat ed meagan Glucose = TRACE NEG complet ur 017 ed test 14:15 strip Urine YELLOW YELLOW complet color 017 YELLOW ed 14:15 L Urine TRACE-L NEG complet blood 017 YSED ed detecti 14:15 TRACE-L on YSED L Urine NEGATIV NEG complet total 017 E ed bilirub 14:15 NEGATIV in E L detecti on by test Bacteri 4+ 4+ L O complet a 017 ed detecti 14:15 on in urine sedimen t by Urine 0.2 0.2 NEG complet urobili 017 L ed nogen 14:15 E.U./dL detecti on by test str [place] 20-50 0-5 complet s 017 20-50 L ed epithel 14:15 #/hpf ial cells detecti on in u Urine SL CLEAR complet appeara 017 CLOUDY ed nce 14:15 SL determi CLOUDY nation L Urinalysis dipstick W Reflex Microscopic panel in Urine (05-09-2017 14:15) Bacteri 4+ O complet a 017 ed [Presen 14:15 ce] in Urine sedimen t by Light microsc opy Mucus 1+ OCC complet [Presen 017 ed ce] in 14:15 Urine sedimen t by Light microsc opy Erythro NONE 0 complet cytes 017 ed [Presen 14:15 ce] in Urine sedimen t by Light microsc opy Epithel 20-50 0#/hp complet ial 017 f - ed cells.s 14:15 5#/hp quamous f [Presen ce] in Urine sedimen t by Microsc opy high power field Leukocy 20-50 O complet meagan 017 wbc/hpf ed [#/volu 14:15 me] in Urine Urinalysis dipstick W Reflex Microscopic panel in Urine (05-09-2017 14:15) Appeara SL CLEAR complet nce of 017 CLOUDY ed Urine 14:15 Bilirub NEGATIV NEG complet in 017 E ed [Presen 14:15 ce] in Urine by Test strip Erythro TRACE-L NEG complet cytes 017 YSED ed [Presen 14:15 ce] in Urine Color YELLOW YELLOW complet of 017 ed Urine 14:15 Ketones NEGATIV NEG complet 017 E ed [Presen 14:15 ce] in Urine by Automat ed test strip Mucus 3+ NEG Abnorma complet [Presen 017 l ed ce] in 14:15 Urine sedimen t by Light microsc opy Nitrite POSITIV NEG Abnorma complet 017 E l ed [Presen 14:15 ce] in Urine by Test strip Urobili 0.2 NEG complet nogen 017 ed [Presen 14:15 ce] in Urine by Test strip CBC w auto diff (05-09-2017 14:05) Automat = 6.9 7.4-10. complet ed 017 fl 4 ed blood 14:05 platele t mean volume tracy [place] % = 4.0 % 1.7-9.3 complet 017 ed 14:05 Absolut = 0.5 0.1-1.0 complet e 017 K/mm3 ed monocyt 14:05 e count Automat = 82.6 82.2-97 complet ed 017 fl .8 ed erythro 14:05 cyte mean corpusc ular v Automat = 32.3 31.8-35 complet ed 017 g/dl .4 ed erythro 14:05 cyte mean corpusc ular h Mean = 26.7 27-31.2 complet corpusc 017 pg ed ular 14:05 hemoglo bin (MCH) determ Lymphoc = 28.4 10-50.0 complet yte 017 % ed count, 14:05 blood, automat ed Absolut = 3.2 0.7-4.5 complet e 017 K/mm3 ed lymphoc 14:05 yte count Blood = 12.4 12.2-16 complet hemoglo 017 g/dL .2 ed bin 14:05 measure ment (mass/v olum Blood = 38.4 37.0-47 complet hematoc 017 % .0 ed rit 14:05 (volume fractio n) Granulo = 63.6 37.0-80 complet cyte 017 % .0 ed percent 14:05 age Blood = 7.2 1.8-7.8 complet granulo 017 K/mm3 ed cytes 14:05 automat ed count (numb Automat = 3.2 % 0.1-12. complet ed 017 0 ed blood 14:05 eosinop hils/10 0 leukocy t Automat = 0.4 0.0-0.4 complet ed 017 K/mm3 ed blood 14:05 eosinop hil count Baso % = 0.7 % 0.1-2.0 complet 017 ed 14:05 Automat = 0.1 0-0.2 complet ed 017 K/MM3 ed blood 14:05 basophi l count (count/ vo Blood = 397 142-424 complet platele 017 K/mm3 ed t count 14:05 Blood = 11.4 4.8-10. complet leukocy 017 K/MM3 8 ed meagan 14:05 count (number /volume ) Automat = 13.2 11.5-17 complet ed 017 % .5 ed erythro 14:05 cyte distrib ution width Red = 4.65 4.2-5.4 complet blood 017 M/mm3 ed cell 14:05 count Lipase measurement (05-09-2017 14:05) Lipase = 86 73-393 complet measure 017 U/L ed ment 14:05 Comprehensive metabolic panel (05-09-2017 14:05) Protein = 7.9 6.4-8.2 complet total 017 gm/dL ed ser/zaira 14:05 s ALT = 17 12-78 complet (SGPT) 017 U/L ed ser/zaira 14:05 s Serum = 10 15-37 complet or 017 U/L ed plasma 14:05 asparta te aminotr ansfera Serum = 135 136-145 complet sodium 017 mmoL/L ed measure 14:05 ment Serum = 4.9 3.5-5.1 complet potassi 017 mmoL/L ed um 14:05 measure ment Serum = 199 74-106 complet or 017 mg/dL ed plasma 14:05 glucose measure ment (mas Serum = 4.0 1.3-3.2 complet globuli 017 gm/dL ed n 14:05 measure ment (mass/v olume) Estimat = 64 59- complet ed 017 ML/MIN ed glomeru 14:05 lar filtrat ion rate (GF Comment: REFERENCE RANGE: >60 ML/MIN/1.73 SQUARE METERS Comment: If this patient is -Dutch, then multiply the Comment: result by 1.210. Estimat = 114 50-200 complet ion of 017 ML/MIN ed creatin 14:05 ine renal clearan ce Serum = 0.9 0.55-1. complet or 017 mg/dL 02 ed plasma 14:05 creatin ine measure ment ( Carbon = 25 21.0-32 complet dioxide 017 mmoL/L .0 ed 14:05 measure ment Serum = 101 98-107 complet or 017 mmoL/L ed plasma 14:05 chlorid e measure ment (mo Serum = 9.5 8.5-10. complet or 017 mg/dL 1 ed plasma 14:05 calcium measure ment (mas Serum = 18 7-18 complet or 017 mg/dL ed plasma 14:05 urea nitroge n measure men Serum = 0.2 0.2-1.0 complet or 017 mg/dL ed plasma 14:05 total bilirub in measure m Serum = 118 46-116 complet or 017 U/L ed plasma 14:05 alkalin e phospha tase tracy Serum = 3.9 3.4-5.0 complet or 017 gm/dL ed plasma 14:05 albumin measure ment (mas Serum = 1.0 1.1-1.8 complet or 017 ed plasma 14:05 albumin /globul in mass ra Amylase ser/plas (05-09-2017 14:05) Amylase = 47 25-115 complet 017 U/L ed ser/zaira 14:05 s Glucose capillary blood glucometer (04-03-2017 10:10) Glucose [...] Microscopic panel in Urine (01-09-2017 02:27) Appeara -18-2 SL CLEAR complet nce of 017 CLOUDY ed Urine 02:27 Bilirub -18-2 NEGATIV NEG complet in 017 E ed [Presen 02:27 ce] in Urine by Test strip Erythro -18-2 NEGATIV NEG complet cytes 017 E ed [Presen 02:27 ce] in Urine Color 18-2 YELLOW YELLOW complet of 017 ed Urine [...] strip COMPREHENSIVE METABOLIC PANEL (04-03-2013 18:10) Glucose 04-03-2 336 74-106 complet 013 mg/dL ed Bld-mCn 18:10 c BUN 1010-2 10 7-18 complet Bld-mCn 013 mg/dL ed c 18:10 Creat 1.0 0.6-1.0 complet SerPl-m 013 mg/dL ed Cnc 18:10 ESTIMAT 04-03- 127 50-200 complet ED 013 ML/MIN ed CREATIN 18:10 INE CLEARAN CE GFR 58 59- complet (ESTIMA 013 ML/MIN ed ML) 18:10 Sodium 138 136-145 complet SerPl-s 013 mmoL/L ed Cnc 18:10 Potassi 3.5 3.5-5.1 complet um 013 mmoL/L ed SerPl-s 18:10 Cnc Chlorid 101 98-107 complet e 013 mmoL/L ed SerPl-s 18:10 Cnc CO2 04-03- 22 21.0-32 complet SerPl-s 013 mmoL/L .0 ed Cnc 18:10 Calcium 9.0 8.5-10. complet 013 mg/dL 1 ed SerPl-m 18:10 Cnc Prot 7.3 6.4-8.2 complet SerPl-m 013 gm/dL ed Cnc 18:10 Albumin 3.6 3.4-5.0 complet 013 gm/dL ed SerPl-m 18:10 Cnc Globuli 04-03- 3.7 1.3-3.2 complet n 013 gm/dL ed Ser-mCn 18:10 c Albumin 1.0 UNK 1.1-1.8 complet /Glob 013 ed SerPl-m 18:10 Rto Bilirub 0.3 0.2-1.0 complet 013 mg/dL ed SerPl-m 18:10 Cnc AST 04-03- 35 U/L 15-37 complet SerPl-c 013 ed Cnc 18:10 ALT 04-03- 81 U/L 30-65 complet SerPl-c 013 ed Cnc 18:10 ALP 04-03- 147 U/L 50-136 complet SerPl-c 013 ed Cnc 18:10 LIPASE (04-03-2013 18:10) LIPASE 53 U/L 73-393 complet 013 ed 18:10 [...] 013 K/mm3 ed Bld 18:10 Auto Eosinop -10-2 0.4 0.0-0.4 complet hil # 013 K/mm3 ed Bld 18:10 Auto Basophi 1010-2 0.1 0-0.2 complet ls # 013 K/MM3 ed Bld 18:10 Auto Encounters Encounter Start End Date Code Location Performer Type Date Emergency WALLY Shah MD (ER) 3 00:03 3 00:46 [facility] Emergency WALLY Shah MD (ER) 3 18:37 3 21:35 [facility]
--- OUTSIDE RECORDS SUMMARY | 2017-05-14 15:11 | External Medical Summary Rpt | CCD ---
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 J40 BRONCHITIS, 09-08-2016 NOT SPECIFIED ACUTE OR CHRONIC K21.9 GASTRO-ESOP 09-08-2016 HAGEAL REFLUX DISEASE WITHOUT ESOPHAGITIS R05 COUGH 09-08-2016 Z79.1 BOOK AUTHOR 09-08-2016 (CURRENT) USE OF NON-STEROID AL ANTI-INFLAM MATORIES (NSAID) Z79.82 ALF 09-08-2016 (CURRENT) USE OF ASPIRIN Z79.899 OTHER LONG 09-08-2016 TERM (CURRENT) DRUG THERAPY Z88.3 ALLERGY 09-08-2016 STATUS TO OTHER ANTI-INFECT ANNABELLA AGENTS STATUS 244.9 250.00 250.01 272.4 401.9 599.0 724.5 Chronic [place] back pain [facility] [id number] [facility] A08.4 VIRAL INTESTINAL INFECTION, UNSPECIFIED B37.2 CANDIDIASIS [...] concent ration Urine culture (05-09-2017 14:15) Urine [id number] complet culture 017 07 ed 14:15 Escheri [...] blood 14:05 platele t mean volume tracy [place] % = 4.0 % 1.7-9.3 complet 017 [...] SQUARE METERS Comment: If this patient is -Croatian, then multiply the Comment: result by 1.210. [...] Shah MD (ER) 3 00:03 3 00:46 [facility] Emergency WALLY Shah MD (ER) 3 18:37 3 21:35 [facility]
--- OUTSIDE RECORDS SUMMARY | 2017-05-14 15:11 | External Medical Summary Rpt | CCD ---
Author Author , LEOBARDO Organization [facility] Address Unknown Phone [email or web address] Immunization Name Date Rout CVX Reac Dose [...]
--- OUTSIDE RECORDS SUMMARY | 2017-05-14 15:13 | External Medical Summary Rpt ---
Author Author [facility] Sears, [employer] Address Unknown Phone Unavailable Results Urinalysis dipstick W Reflex Microscopic panel in Urine Observa Value Referen Units Interpr Notes Date tion ce etation Range Appeara SL CLEAR No No No May 09 nce of CLOUDY informa informa informa 2017 Urine tion in tion in tion in 2:15 PM source source source data data data Bacteri 4+ O No No No May 09 a informa informa informa 2016 [Presen tion in tion in tion in 2:15 PM ce] in source source source Urine data data data sedimen t by Light microsc opy Bilirub NEGATIV NEG No No No May 09 in E informa informa informa 2016 [Presen tion in tion in tion in 2:15 PM ce] in source source source Urine data data data by Test strip Erythro TRACE-L NEG No No No May 09 cytes YSED informa informa informa 2016 [Presen tion in tion in tion in 2:15 PM ce] in source source source Urine data data data Color YELLOW YELLOW No No No May 09 of informa informa informa 2017 Urine tion in tion in tion in 2:15 PM source source source data data data Glucose NEG No High No May 09 [Mass/vol informati informati 2017 2:15 ume] in on in on in PM Urine by source source Test data data strip Ketones NEGATIV NEG mg/dL No No May 09 E informa informa 2016 [Presen tion in tion in 2:15 PM ce] in source source Urine data data by Automat ed test strip Mucus 3+ NEG No Abnorma No May 09 [Presen informa l informa 2016 ce] in tion in tion in 2:15 PM Urine source source sedimen data data t by Light microsc opy Mucus 1+ OCC No No No May 09 [Presen informa informa informa 2016 ce] in tion in tion in tion in 2:15 PM Urine source source source sedimen data data data t by Light microsc opy Nitrite POSITIV NEG No Abnorma No May 09 E informa l informa 2016 [Presen tion in tion in 2:15 PM ce] in source source Urine data data by Test strip pH of 5.0 - 8.5 No Normal No Apr 15 Urine informati informati 2016 2:15 on in on in PM source source data data Protein NEG mg/dL No No May 09 [Mass/vol informati informati 2017 2:15 ume] in on in on in PM Urine by source source Automated data data test strip Erythro NONE 0 rbc/hpf No No May 09 cytes informa informa 2016 [Presen tion in tion in 2:15 PM ce] in source source Urine data data sedimen t by Light microsc opy Specific 1.005 - No Normal No May 09 gravity 1.030 informati informati 2016 2:15 of Urine on in on in PM source source data data Epithel 20-50 0 - 5 #/hpf No No May 09 ial informa informa 2017 cells.s tion in tion in 2:15 PM quamous source source data data [Presen ce] in Urine sedimen t by Microsc opy high power field Urobili 0.2 NEG E.U./dL No No May 09 nogen informa informa 2016 [Presen tion in tion in 2:15 PM ce] in source source Urine data data by Test strip Leukocy [20 O wbc/hpf No No May 09 meagan wbc/hpf informa informa 2016 [#/volu ; 50 tion in tion in 2:15 PM me] in wbc/hpf source source Urine ] data data Urinalysis dipstick W Reflex Microscopic panel in Urine Observa Value Referen Units Interpr Notes Date tion ce etation Range Appeara SL CLEAR No No No May 09 nce of CLOUDY informa informa informa 2017 Urine tion in tion in tion in 2:15 PM source source source data data data Bilirub NEGATIV NEG No No No May 09 in E informa informa informa 2016 [Presen tion in tion in tion in 2:15 PM ce] in source source source Urine data data data by Test strip Erythro TRACE-L NEG No No No May 09 cytes YSED informa informa 2016 [Presen tion in tion in tion in 2:15 PM ce] in source source source Urine data data data Color YELLOW YELLOW No No No May 09 of informa informa informa 2016 Urine tion in tion in tion in 2:15 PM source source source data data data Glucose NEG No High No May 09 [Mass/vol informati informati 2016 2:15 ume] in on in on in PM Urine by source source Test data data strip Ketones NEGATIV NEG mg/dL No No May 09 E informa informa 2016 [Presen tion in tion in 2:15 PM ce] in source source Urine data data by Automat ed test strip Mucus 3+ NEG No Abnorma No May 09 [Presen informa l inform2016 ce] in tion in tion in 2:15 PM Urine source source sedimen data data t by Light microsc opy Nitrite POSITIV NEG No Abnorma No May 09 E informa l 2016 [Presen tion in tion in 2:15 PM ce] in source source Urine data data by Test strip pH of 5.0 - 8.5 No Normal No May 09 Urine ati 2016 2:15 on in on in PM source source data data Protein NEG mg/dL No No May 09 [Mass/vol informati ati 2016 2:15 ume] in on in on in PM Urine by source source Automated data data test strip Specific 1.005 - No Normal No May 09 gravity 1.030 ati 2016 2:15 of Urine on in on in PM source source data data Urobili 0.2 NEG E.U./dL No No May 09 nogen informa informa 2016 [Presen tion in tion in 2:15 PM ce] in source source Urine data data by Test strip CBC W Auto Differential panel in Blood Observa Value Referen Units Interpr Notes Date tion ce etation Range Basophils 0 - 0.2 K/MM3 Normal No Apr 15 2016 2:05 [#/volume on in PM ] in source Blood by data Automated count Basophils 0.1 - 2.0 % Normal No May 09 /100 2016 2:05 leukocyte on in PM s in source Blood by data Automated count Eosinophi 0.0 - 0.4 K/mm3 Normal No Apr 15 ls informati 2016 2:05 [#/volume on in PM ] in source Blood by data Automated count Eosinophi 0.1 - % Normal No May 09 ls/100 12.0 informati 2016 2:05 leukocyte on in PM s in source Blood by data Automated count Granulocy 1.8 - 7.8 K/mm3 Normal No Apr 15 meagan informati 2016 2:05 [#/volume on in PM ] in source Blood by data Automated count Granulocy 37.0 - % Normal No May 09 meagan/100 80.0 informati 2016 2:05 leukocyte on in PM s in source Blood by data Automated count Hematocri 37.0 - % Normal No May 09 t [Volume 47.0 informati 2016 2:05 on in PM Fraction] source of Blood data Hemoglobi 12.2 - g/dL Normal No May 09 n 16.2 informati 2016 2:05 [Mass/vol on in PM ume] in source Blood data Lymphocyt 0.7 - 4.5 K/mm3 Normal No May 09 es informati 2016 2:05 [#/volume on in PM ] in source Unspecifi data ed specimen by Automated count Lymphocyt 10 - 50.0 % Normal No May 09 es inform2016 2:05 [#/volume on in PM ] in source Unspecifi data ed specimen by Automated count Erythrocy 27 - 31.2 pg Low No May 09 te mean inform2016 2:05 corpuscul on in PM ar source hemoglobi data n [Entitic mass] Erythrocy 31.8 - g/dl Normal No May 09 te mean 35.4 informati 2016 2:05 corpuscul on in PM ar source hemoglobi data n concentra tion [Mass/vol ume] by Automated count Erythrocy 82.2 - fl Normal No May 09 te mean 97.8 informati 2016 2:05 corpuscul on in PM ar volume source [Entitic data volume] by Automated count Monocytes 0.1 - 1.0 K/mm3 Normal No May 092016 2:05 [#/volume on in PM ] in source Blood by data Automated count Monocytes 1.7 - 9.3 % Normal No May 09 /100 informati 2017 2:05 leukocyte on in PM s in source Blood by data Automated count Platelet 7.4 - fl Low No May 09 mean 10.4 informati 2016 2:05 volume on in PM [Entitic source volume] data in Blood by Automated count Platelets 142 - 424 K/mm3 Normal No Apr 15 informati 2017 2:05 [#/volume on in PM ] in source Blood data Erythrocy 4.2 - 5.4 M/mm3 Normal No May 09 meagan informati 2016 2:05 [#/volume on in PM ] in source Amniotic data fluid Erythrocy 11.5 - % Normal No May 09 te 17.5 informati 2016 2:05 distribut on in PM ion width source [Entitic data volume] by Automated count Leukocyte 4.8 - K/MM3 High No May 09 s 10.8 informati 2017 2:05 [#/volume on in PM ] in source Blood data Amylase [Enzymatic activity/volume] in Serum or Plasma Observa Value Referen Units Interpr Notes Date tion ce etation Range Amylase 25 - 115 U/L Normal No May 09 [Enzymati informati 2017 2:05 c on in PM activity/ source volume] data in Serum or Plasma Comprehensive metabolic 2000 panel in Serum or Plasma Observa Value Referen Units Interpr Notes Date tion ce etation Range Albumin/G 1.1 - 1.8 No Low No May 09 lobulin informati informati 2016 2:05 [Mass on in on in PM ratio] in source source Serum or data data Plasma Albumin 3.4 - 5.0 gm/dL Normal No May 09 [Mass/vol informati 2016 2:05 ume] in on in PM Serum or source Plasma data Alkaline 46 - 116 U/L High No May 09 phosphata informati 2016 2:05 se on in PM [Enzymati source c data activity/ volume] in Serum or Plasma Bilirubin 0.2 - 1.0 mg/dL Normal No May 09 .total informati 2016 2:05 [Mass/vol on in PM ume] in source Serum or data Plasma Urea 7 - 18 mg/dL Normal No May 09 nitrogen informati 2016 2:05 [Mass/vol on in PM ume] in source Serum or data Plasma Calcium 8.5 - mg/dL Normal No May 09 [Mass/vol 10.1 informati 2017 2:05 ume] in on in PM Serum or source Plasma data Chloride 98 - 107 mmoL/L Normal No May 09 [Moles/vo informati 2016 2:05 lume] in on in PM Serum or source Plasma data Carbon 21.0 - mmoL/L Normal No May 09 dioxide, 32.0 informati 2016 2:05 total on in PM [Moles/vo source lume] in data Serum or Plasma Creatinin 0.55 - mg/dL Normal No May 09 e 1.02 informati 2016 2:05 [Mass/vol on in PM ume] in source Serum or data Plasma Creatinin 50 - 200 ML/MIN Normal No May 09 e renal informati 2016 2:05 clearance on in PM source predicted data by Cockcroft -Gault formula Estimated 59- ML/MIN No REFERENCE May 09 informati RANGE: 2017 2:05 glomerula on in >60 PM r source ML/MIN/1. filtratio data 73 SQUARE n rate METERSIf (GF this patient is -A merican, then multiply theresult by 1.210. Globulin 1.3 - 3.2 gm/dL High No May 09 [Mass/vol informati 2016 2:05 ume] in on in PM Serum source data Glucose 74 - 106 mg/dL High May 09 [Mass/vol informati 2016 2:05 ume] in on in PM Serum or source Plasma data Potassium 3.5 - 5.1 mmoL/L Normal No May 092016 2:05 [Moles/vo on in PM lume] in source Serum or data Plasma Sodium 136 - 145 mmoL/L Low No May 09 [Moles/vo informati 2016 2:05 lume] in on in PM Serum or source Plasma data Aspartate 15 - 37 U/L Low No May 09 informati 2016 2:05 aminotran on in PM sferase source [Enzymati data c activity/ volume] in Serum or Plasma Alanine 12 - 78 U/L Normal No May 09 aminotran informati 2016 2:05 sferase on in PM [Enzymati source c data activity/ volume] in Serum or Plasma Protein 6.4 - 8.2 gm/dL Normal May 09 [Mass/vol informati 2016 2:05 ume] in on in PM Serum or source Plasma data Lipase [Enzymatic activity/volume] in Serum or Plasma Observa Value Referen Units Interpr Notes Date tion ce etation Range Lipase 73 - 393 U/L Normal No May 09 [Enzymati informati 2016 2:05 c on in PM activity/ source volume] data in Serum or Plasma Glucose [Mass/volume] in Capillary blood by Glucometer [...] Sodium 136 - 145 mmoL/L Low No Jan 25 [Moles/vo informati 2017 lume] in on in [...] No No Jan 09 dine informati informati 2017 2:27 [Mass/vol on in [...] Abnorma No Jan 09 [Presen informa l informa 2016 ce] in tion in tion in 2:27 [...] 09 nce of CLOUDY informa informa informa 2016 Urine tion in [...] No Jan 09 [Mass/vol informati informati informati 2016 2:27 ume] in on [...] Abnorma No Jan 09 [Presen informa l informa 2016 ce] in tion in tion in 2:27 [...] 0 - 0.2 K/MM3 Normal No Jan 03 informati 2016 7:50 [#/volume on in PM [...] No Jan 03 t [Volume 47.0 informati 2016 7:50 on in PM Fraction] source of Blood data Hemoglobi 12.2 - g/dL Low No Jan 03 n 16.2 informati 2016 7:50 [Mass/vol on in PM ume] in source Blood data Lymphocyt 0.7 - 4.5 K/mm3 Normal No Jan 03 es informati 2016 7:50 [#/volume on in PM ] in source Unspecifi data ed specimen by Automated count Lymphocyt 10 - 50.0 % Normal No Jan 03 es informati 2016 7:50 [#/volume on in PM ] in source Unspecifi data ed specimen by Automated count Erythrocy 27 - 31.2 pg Normal No Jan 03 te mean informati 2016 7:50 corpuscul on in PM ar source hemoglobi data n [Entitic mass] Erythrocy 31.8 - g/dl Normal No Jan 03 te mean 35.4 informati 2016 7:50 corpuscul on in PM ar source hemoglobi data n concentra tion [Mass/vol ume] by Automated count Erythrocy 82.2 - fl Normal No Jan 03 te mean 97.8 informati 2016 7:50 corpuscul on in PM ar volume source [Entitic data volume] by Automated count Monocytes 0.1 - 1.0 K/mm3 Normal No Jan 03 informati 2016 7:50 [#/volume on in PM ] in source Blood by data Automated count Monocytes 1.7 - 9.3 % Normal No Jan 03 /100 informati 2017 7:50 leukocyte on in PM s in source Blood by data Automated count Platelet 7.4 - fl Low No Jan 03 mean 10.4 informati 2016 7:50 volume on in PM [Entitic source volume] data in Blood by Automated count Platelets 142 - 424 K/mm3 High No Jan 03 informati 2016 7:50 [#/volume on in PM ] in source Blood data Erythrocy 4.2 - 5.4 M/mm3 Low No Jan 03 meagan informati 2016 7:50 [#/volume on in PM ] in source Amniotic data fluid Erythrocy 11.5 - % Normal No Jan 03 te 17.5 informati 2016 7:50 distribut on in PM ion width source [Entitic data volume] by Automated count Leukocyte 4.8 - K/MM3 High No Jan 03 s 10.8 informati 2016 7:50 [#/volume on in PM ] in source Blood data Glucose [Mass/volume] in Capillary blood by Glucometer Observa Value Referen Units Interpr Notes Date tion ce etation Range Glucose 70 - 110 mg/dl No No Jan 03 [Mass/vol informati informati 2016 7:28 ume] in on in on in PM Capillary source source blood by data data Glucomete r CBC W Auto Differential panel in Blood Observa Value Referen Units Interpr Notes Date tion ce etation Range Basophils 0 - 0.2 K/MM3 Normal No Dec 23 inform2016 [#/volume on in 10:20 PM ] in source Blood by data Automated count Basophils 0.1 - 2.0 % Normal No Dec 23 /100 inform2016 leukocyte on in 10:20 PM s in source Blood by data Automated count Eosinophi 0.0 - 0.4 K/mm3 Normal No Dec 23 ls informati 2016 [#/volume on in 10:20 PM ] in source Blood by data Automated count Eosinophi 0.1 - % Normal No Dec 23 ls/100 12.0 informati 2016 leukocyte on in 10:20 PM s [...] Normal No Dec 23 t [Volume 47.0 ati 2016 on in 10:20 PM Fraction] source of Blood data Hemoglobi 12.2 - g/dL Normal No Dec 23 n 16.2 informati 2016 [Mass/vol on in 10:20 PM ume] in source Blood data Lymphocyt 0.7 - 4.5 K/mm3 High No Dec 23 es inform2016 [#/volume on in 10:20 PM ] [...] Normal No Dec 23 te mean 35.4 2016 corpuscul on in 10:20 PM ar source hemoglobi data n concentra tion [Mass/vol ume] by Automated count Erythrocy 82.2 - fl Low No Dec 23 te mean 97.8 informati 2016 corpuscul on in 10:20 PM ar volume source [Entitic data volume] by Automated count Monocytes 0.1 - 1.0 K/mm3 Normal No Dec 23 informati 2016 [#/volume on in 10:20 PM ] in source Blood by data Automated count Monocytes 1.7 - 9.3 % Normal No Dec 1 /100 2016 leukocyte on in 10:20 PM s in source Blood by data Automated count Platelet 7.4 - fl Low No Dec 23 mean 10.4 informati 2016 volume on in 10:20 PM [Entitic source volume] data in Blood by Automated count Platelets 142 - 424 K/mm3 No No Dec 23 informati informati 2016 [#/volume on in on in 10:20 PM ] in source source Blood data data Erythrocy 4.2 - 5.4 M/mm3 Normal No Dec 23 meagan 2016 [#/volume on in 10:20 PM ] in source Amniotic data fluid Erythrocy 11.5 - % Normal No Dec 23 te 17.5 2016 distribut on in 10:20 PM ion width source [Entitic data volume] by Automated count Leukocyte 4.8 - K/MM3 High No Dec 23 s 10.8 inform2016 [#/volume on in 10:20 PM ] in source Blood data
[2017-05-14 15:40] LABS: HEMOGLOBIN 12.3 g/dL (12.2-16.2); LYMPH # 2.1 K/mm3 (0.7-4.5); LYMPH % 25.2 % (10-50.0)
--- NOTE | 2017-05-14 15:43 | Emergency Room Report ---
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 N Clinical Suspician of Infection? N Mental Status: 1 - Regular (Normal Baseline) Sepsis Risk:Low Sepsis Risk Have you (or family members/close friends) recently traveled outside the [place]? N If Yes, where/when: Have you had exposure to infectious disease within the past month? TB? Other? Specify: Source patient, RN notes reviewed, RN/MD Exam Limitations no limitations Comment Patient is sent here from Denisha Ervin's office due to low blood pressure (88 ssytolic). She continues to have nausea, vomiting diarrhea, since last visit in the emergency room, a few days ago. Family advised that she is unable to hold down any solids or liquids. ALLERGIES Coded Allergies: Sulfa (Sulfonamide Antibiotics) (05/14/17) levofloxacin (From LEVAQUIN) (05/14/17) Home Medications Active Scripts Methocarbamol (Robaxin 750MG) 750 MG PO Q8 #21 TAB Prov: 04/15/17 ONDANSETRON HCL (Zofran 4MG Tab) 4 MG PO Q6HP PRN NAUSEA AND VOMITING #20 TAB Prov: 05/09/17 NITROFURANTOIN MONOHYD/M-CRYST (Macrobid 100 MG Capsule) 100 MG PO BID #14 CAP Prov: 05/09/17 Reported Medications Hydroxyzine Pamoate 25 MG PO Q6 #90 Dicyclomine Hcl (Bentyl (Generic) 10MG Capsule) 10 MG PO Q6H #120 Tiotropium Gruver (Spiriva) 1 PUFF IH DAILY #30 TIZANIDINE HCL (Tizanidine Hcl 4 Mg Tablet) 4 MG NG DAILY #60 Furosemide 40 MG PO BID #30 TAB FLUTICASONE/VILANTEROL (Breo Ellipta 100-25 Mcg INH) 1 POW IH DAILY #60 INSULIN ASPART PROTAM & ASPART (Novolog Mix 70-30 Vial) 60 UNITS SC BID Metformin HCL (Metformin) 500 MG PO DAILY Levothyroxine Sodium (Synthroid 0.1MG) 100 MCG PO DAILY Lovastatin 10 MG PO DAILY #15 Clonazepam (Klonopin 1MG) 1 MG PO QHS Omeprazole (Omeprazole 40MG) 40 MG PO DAILY #30 History Medical History General CAD? No Angina: Yes AL: No Hypertension? Yes Hyperlipidemia? No CHF? Yes DVT? No PE? No COPD? Yes Asthma? Yes Anemia? Yes GERD? No Gastric ulcers? No GI Bleed? No Hernia? Yes Thyroid Problems? No Hypothyroidism? No CVA? No Seizures? 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 Yes Renal Insuffiency? No End Stage Renal Disease? No UTI? Yes Stones? No BPH? No GB Disease: Yes Nephritic Syndrome? No Asplenia? No Hepatitis? No Sickle Cell Disease? No Arthritis? Yes Migraines? No Cataracts? Yes Glaucoma? No MRSA? No HIV? No TB? No Anxiety? No Depression? No Cancer? No More? 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 N/A Family History Family Hx Diabetes Yes CAD Yes Hypertension Yes Hyperlipidemia No Cancer Yes TB No Social History Smoking Hx Smoker: Current Every Day Smoker Tobacco: Yes Type Cigarettes Packs/day 1 1/2 - 2 Packs Alcohol Alcohol: No Review of Systems All Other Systems Reviewed and Negative Gastrointestinal see HPI, denies abdominal pain, diarrhea, nausea, vomiting Comment thinks she may be dehydrated Physical Exam Vital Signs Vital Signs Date Time Temp Pulse Resp B/P Pulse O2 O2 Flow FiO2 Ox Delivery Rate 05/14 1827 65 18 127/85 98 05/14 1501 98.5 63 18 135/69 100 General Appearance normal appearance, WD/WN, no apparent distress, fatigued, lethargic Respiratory Status Yes: trachea midline, chest symmetrical, non tender chest. No: respiratory distress. Lung Sounds bilateral: normal breath sounds, lungs clear. 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 No Comment 1630-case d/w Dr Gould, as of patient's findings and presentation, and need to be hospitalized. Dr. Gould would like to have patient rehydrated first, and called back, without days. 1744-no futher symptoms, patient remains in no acute distress, now constantly on the phone, afebrile, previously worked up by clinic as well as in the ER. Will instruct to see denisha Manrique in the office in am. Results/Orders Laboratory Tests 05/14/17 1615: Ammonia 15 L 05/14/17 1530: Sodium 136, Potassium 4.5, Chloride 100, Carbon Dioxide 25, BUN 25 H, Creatinine 1.4 H, Estimated Creat Clear 74, Estimated GFR (MDRD) 39 L, Glucose 164 H, Calcium 8.9, Total Bilirubin 0.2, AST 18, ALT 26, Alkaline Phosphatase 109, Total Protein 7.7, Albumin 3.9, Globulin 3.8 H, Albumin/Globulin Ratio 1.0 L, WBC 8.5, RBC 4.46, Hgb 12.3, Hct 37.1, MCV 83.1, RDW 13.0, Plt Count 293, MPV 6.8 L, Gran % 62.5, Gran # 5.3, Lymphocytes % 25.2, Monocytes % 6.2, Eosinophils % 5.1, Basophils % 1.0, Lymphocytes # 2.1, Monocytes # 0.5, Eosinophils # 0.4, Basophils # 0.1, PUBS MCHC 33.2, MCH 27.6 Orders Procedure Date/time Status AMMONIA 05/14 1605 Complete CBC WITH AUTO DIFF 05/14 151 Complete CHEM 12 PROFILE 05/14 151 Complete Departure Departure Time of Disposition 1820 Disposition DC Home or Self Care(routine) Clinical Impression Primary Impression: Dehydration Secondary Impressions: Gastroenteritis Hypotension Qualifiers: Hypotension type: unspecified hypotension type Qualified Code: I95.9 - Hypotension, unspecified Condition STABLE Referrals DENISHA ERVIN APRN (Family) Patient Instructions DI for Dehydration -- Adult, DI for Hypotension Additional Instructions Please see Denisha Ervin in the morning, in the office, in order to re-assess your medication list. Please discontinue the Phenergan, Tizanidine, Hydroxyzine, Robaxin, Clonazepam at this time, till seen and reevaluated by your PCP. Discharge Counseling Counseled pt/family regarding diagnosis, test results, medications/RX, home care, follow up needs Comment Please see Denisha Ervin in the morning, in the office, in order to re-assess your medication list. Please discontinue the Phenergan, Tizanidine, Hydroxyzine, Robaxin, Clonazepam at this time, till seen and reevaluated by your PCP. ED Critical Care Critical Care No at 1519 at this time, till seen and reevaluated by your PCP. Discharge Counseling Counseled pt/family regarding diagnosis, test results, medications/RX, home care, follow up needs Comment Please see Denisha Ervin in the morning, in the office, in order to re-assess your medication list. Please discontinue the Phenergan, Tizanidine, Hydroxyzine, Robaxin, Clonazepam at this time, till seen and reevaluated by your PCP. ED Critical Care Critical Care No
[2017-05-14] MEDS ORDERED: TIZANIDINE HCL 44 MG NG (15:53)
[2017-05-14] MEDS ORDERED: KLONOPIN1 MG PO (18:24)
[2017-05-14 18:27] VITALS: BP 127/85
== END 2017-05-14 18:28 | disposition home or self-care (01) ==
LOC: ER 14:58
PROVIDERS: Emergency Medicine
DX: E86.0 Dehydration (principal); I95.1 Orthostatic hypotension; A08.4 Viral intestinal infection, unspecified; E11.9 Type 2 diabetes mellitus without complications; Z79.4 Long term (current) use of insulin; F17.210 Nicotine dependence, cigarettes, uncomplicated; I10 Essential (primary) hypertension; J44.9 Chronic obstructive pulmonary disease, unspecified; Z88.2 Allergy status to sulfonamides

== ENCOUNTER 2017-05-31 01:16 | Emergency (ER) | payer MEDICARE, MEDICAID ==
[~2017-05-31] VITALS: Ht 167.6 cm; Wt 104.3 kg
[~2017-05-31 01:16] MED LIST changes: +KLONOPIN1 MG PO; +TIZANIDINE HCL 44 MG NG
[2017-05-31] MEDS ORDERED: NOVOLIN 70/30 710 ML SC (01:35)
--- NOTE | 2017-05-31 01:35 | Emergency Room Report ---
History of Present Illness Time Seen by MD Nieves Presenting Problem in Triage Pt arrived:Walked Presenting Problem:right upper quadrant abdominal pain that goes throughout the abdomen she states she has been coughing alot too. 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 N Clinical Suspician of Infection? N Mental Status: 1 - Regular (Normal Baseline) Sepsis Risk:Low Sepsis Risk Have you (or family members/close friends) recently traveled outside the [place]? N If Yes, where/when: Have you had exposure to infectious disease within the past month? TB? Other? Specify: Source patient, RN notes reviewed, family, old records Exam Limitations no limitations Comment pt with ongoing rt upper abd pain ahd has seen pcp and uk and has tests planned but inc pain tonight Cardiac Chest Pain Chest pain indicative of cardiac No Timing/Duration this evening Severity moderate ALLERGIES Coded Allergies: Sulfa (Sulfonamide Antibiotics) (05/14/17) levofloxacin (From LEVAQUIN) (05/14/17) Home Medications Reported Medications Hydroxyzine Pamoate 25 MG PO Q6 #90 Dicyclomine Hcl (Bentyl (Generic) 10MG Capsule) 10 MG PO Q6H #120 Furosemide 40 MG PO BID #30 TAB FLUTICASONE/VILANTEROL (Breo Ellipta 100-25 Mcg INH) 1 POW IH DAILY #60 INSULIN ASPART PROTAM & ASPART (Novolog Mix 70-30 Vial) 60 UNITS SC BID Levothyroxine Sodium (Synthroid 0.1MG) 100 MCG PO DAILY Lovastatin 10 MG PO DAILY #15 Metformin HCL (Metformin) 1,000 MG PO DAILY Clonazepam (Klonopin 1MG) 1 MG PO QHS INSULIN NPH HUM/REG INSULIN HM (Novolin 70-30 100 Unit/Ml Vial) 60 UNITS SC BID Ondansetron Hydrochloride (Ondansetron 4MG U/D TABLET (NON-CHEMO USE)) 4 MG PO Q4HP PRN nausea #20 Omeprazole (Omeprazole 40MG) 40 MG PO DAILY #30 History Medical History General CAD? No Angina: Yes AR: No Hypertension? Yes Hyperlipidemia? No CHF? Yes DVT? No PE? No COPD? Yes Asthma? Yes Anemia? Yes GERD? No Gastric ulcers? No GI Bleed? No Hernia? Yes Thyroid Problems? No Hypothyroidism? No CVA? No Seizures? 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 Yes Renal Insuffiency? No End Stage Renal Disease? No UTI? Yes Stones? No BPH? No GB Disease: Yes Nephritic Syndrome? No Asplenia? No Hepatitis? No Sickle Cell Disease? No Arthritis? Yes Migraines? No Cataracts? Yes Glaucoma? No MRSA? No HIV? No TB? No Anxiety? No Depression? No Cancer? No More? 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 Respiratory denies cough, denies shortness of breath, denies wheezing Cardiovascular denies syncope Gastrointestinal see HPI, abdominal pain, denies vomiting Genitourinary denies: dysuria, frequency, hesitancy, hematuria. Musculoskeletal denies back pain, denies joint pain, denies joint swelling, denies neck pain Skin denies rash Psychiatric/Neurological denies headache, denies seizure Physical Exam Vital Signs Vital Signs Date Time Temp Pulse Resp B/P Pulse O2 O2 Flow FiO2 Ox Delivery Rate 05/31 0224 83 20 157/51 97 05/31 0122 98.2 83 20 147/83 97 - WBC >12,000 or <4,000 or 10% bands? 2 or more SIRS Criteria Met? B/P:157/51 MAP:104 Creatinine >2.0? UA output<0.5ml/kg/hr for 2 hrs? Platelet count >100,000? Lactate >2.0mmol/1? INR >1.2 or PTT > than 60 sec? Evidence of Organ Dysfunction? Provider documented clinical suspician of infection? N Sepsis Criteria Count: 1 Sepsis Risk: Low Sepsis Risk General Appearance no apparent distress Eye Exam - bilateral eye PERRL, bilateral eye EOMI Ear, Nose, Throat normal ENT inspection Neck supple Respiratory Status No: respiratory distress. Cardiovascular regular rate/rhythm, systolic murmur Peripheral Pulses Pulses normal Yes Gastrointestinal soft, no organomegaly, no pulsatile mass, no guarding, no rebound, tenderness Extremities normal inspection Strength 4 Upper Ext (L), 4 Upper Ext (R), 4 Lower Ext (L), 4 Lower Ext (R) Neurologic alert, level vial inside grinder II-XII nml as tested, no motor/sensory deficits Reflexes Reflexes normal No Mental status normal mood/affect Skin intact, no rash cons.w/shingles Medical Decision Making LABS/Meds/Orders Pt receiving controlled substance in ED? No Results/Orders Laboratory Tests 05/31/17 0220: Urine Color YELLOW, Urine Appearance CLEAR, Urine pH 5.5, Ur Specific [place] 1.010, Urine Protein NEGATIVE, Urine Ketones NEGATIVE, Urine Blood NEGATIVE, Urine Nitrate NEGATIVE, Urine Bilirubin NEGATIVE, Urine Urobilinogen 0.2, Ur Leukocyte Esterase 2+ H, Urine WBC TNTC, Ur Squamous Epith Cells 5-10, Urine Bacteria 1+, Urine Mucus 1+, Urine Glucose NEGATIVE 05/31/17 0145: Sodium 134 L, Potassium 4.0, Chloride 100, Carbon Dioxide 26, BUN 11, Creatinine 1.0, Estimated Creat Clear 101, Estimated GFR (MDRD) 57 L, Glucose 200 H, Calcium 8.9, Total Bilirubin 0.3, AST 5 L, ALT 18, Alkaline Phosphatase 97, Creatine Kinase 58, CK-MB (CK-2) Rel Index 0.9, CK and CKMB Interp < 0.5, Troponin I < 0.02, Total Protein 6.8, Albumin 3.3 L, Globulin 3.5 H, Albumin/ Globulin Ratio 0.9 L, Amylase 35, Lipase 69 L, WBC 9.5, RBC 4.31, Hgb 11.7 L, Hct 35.5 L, MCV 82.3, RDW 13.3, Plt Count 294, MPV 7.1 L, Gran % 58.1, Gran # 5.5, Lymphocytes % 32.4, Monocytes % 4.5, Eosinophils % 4.4, Basophils % 0.6, Lymphocytes # 3.1, Monocytes # 0.4, Eosinophils # 0.4, Basophils # 0.1, PUBS MCHC 32.9, MCH 27.1 Current Medication Orders Sig/Lyla Start time Last Medication Dose Route Stop Time Status Admin Sodium Chloride 1,000 ML .Q4H 05/31 145 AC 05/31 IV 05/31 544 0159 Sodium Chloride 10 ML PRN PRN 05/31 145 AC IV 06/01 134 Sodium Chloride 1,000 ML .STK-MED ONE 05/31 140 DC IV Sodium Chloride 10 ML PRN PRN 05/31 130 AC IV 06/01 130 Orders Procedure Date/time Status DIET-NOTHING BY MOUTH 05/31 B Active CULTURE, URINE 05/[address] ABD & PELVIS W/O CONTRAST 05/[address] ABD/PELVIS REQ 05/31 130 Complete IV SALINE LOCK 05/31 130 Active URINALYSIS/COMPLETE 05/31 130 Complete LIPASE 05/31 130 Complete CBC WITH AUTO DIFF 05/31 130 Complete CARDIAC ENZYMES 05/31 130 Complete CHEM 12 PROFILE 05/31 130 Complete AMYLASE 05/31 130 Complete XRAY/CT/US XRAY/CT/US CT abdomen, pelvis CT interpretation by discussed w/radiologist Time results known: 0327 CT Results normal/NAD Departure Departure Time of Disposition 0330 Disposition DC Home or Self Care(routine) Clinical Impression Primary Impression: Abdominal pain Qualifiers: Abdominal location: right upper quadrant Qualified Code: R10.11 - Right upper quadrant pain Secondary Impressions: UTI (urinary tract infection) Qualifiers: Urinary tract infection type: acute cystitis Hematuria presence: without hematuria Qualified Code: N30.00 - Acute cystitis without hematuria Condition STABLE Referrals SIMBA FULLER APRN (Family) Patient Instructions DI for Abdominal Pain-Adult Additional Instructions see pcp and for follow up Discharge Counseling Counseled pt/family regarding diagnosis, test results, medications/RX, follow up needs ED Critical Care Critical Care No at 0332
--- OUTSIDE RECORDS SUMMARY | 2017-05-31 01:46 | External Medical Summary Rpt | CCD ---
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 J40 BRONCHITIS, 09-08-2016 NOT SPECIFIED ACUTE OR CHRONIC K21.9 GASTRO-ESOP 09-08-2016 HAGEAL REFLUX DISEASE WITHOUT ESOPHAGITIS R05 COUGH 09-08-2016 Z79.1 ATHLETIC TRAINER 09-08-2016 (CURRENT) USE OF NON-STEROID AL ANTI-INFLAM MATORIES (NSAID) Z79.82 LONGTERM 09-08-2016 (CURRENT) USE OF ASPIRIN Z79.899 OTHER LONG 09-08-2016 TERM (CURRENT) DRUG THERAPY Z88.3 ALLERGY 09-08-2016 STATUS TO OTHER ANTI-INFECT ANNABELLA AGENTS STATUS 244.9 250.00 250.01 272.4 401.9 599.0 724.5 Chronic [place] back pain [facility] [id number] [facility] A08.4 VIRAL INTESTINAL INFECTION, UNSPECIFIED B37.2 CANDIDIASIS OF SKIN AND NAIL E03.9 HYPOTHYROID ISM, UNSPECIFIED E11.649 TYPE 2 DIABETES MELLITUS WITH HYPOGLYCEMI A WITHOUT COMA E78.4 OTHER HYPERLIPIDE NIKOLAY E86.0 DEHYDRATION E87.6 HYPOKALEMIA F11.20 OPIOID DEPENDENCE, UNCOMPLICAT ED G43.909 MIGRAINE, UNSP, NOT INTRACTABLE , WITHOUT STATUS MIGRAINOSUS H70.90 UNSPECIFIED MASTOIDITIS , UNSPECIFIED EAR H92.02 OTALGIA, LEFT EAR I95.9 HYPOTENSION , UNSPECIFIED J04.0 ACUTE LARYNGITIS J06.9 ACUTE UPPER RESPIRATORY [...] Order Detail nces retati t Range on HCV RNA SerPl PCR-aCnc (05-25-2017 13:06) HEPATIT LOG12 complet IC C 017 Log ed VIRUS 13:06 base RNA PCR ten value = RESULT: <1.2 L HEPATIT [id number] complet IC C 017 09 ed VIRUS 13:06 negativ RNA PCR e (qualif RESULT: ier value) SCT NHCV Negativ e for HCV RNA L HEPATIT IUM15 complet IC C 017 Interna ed VIRUS 13:06 tional RNA PCR Units/m L = <15 RESULT: L Ammonia measurement (05-14-2017 16:15) Ammonia = 15 19-54 complet 017 umoL/L ed measure 16:15 ment Comprehensive metabolic panel (05-14-2017 15:30) Serum = 1.0 1.1-1.8 complet or 017 ed plasma 15:30 albumin /globul in mass ra Serum = 3.9 3.4-5.0 complet or 017 gm/dL ed plasma 15:30 albumin measure ment (mas Serum = 109 46-116 complet or 017 U/L ed plasma 15:30 alkalin e phospha tase tracy Serum = 0.2 0.2-1.0 complet or 017 mg/dL ed plasma 15:30 total bilirub in measure m Protein = 7.7 6.4-8.2 complet total 017 gm/dL ed ser/zaira 15:30 s ALT = 26 12-78 complet (SGPT) 017 U/L ed ser/zaira 15:30 s Serum = 18 15-37 complet or 017 U/L ed plasma 15:30 asparta te aminotr ansfera Serum = 136 136-145 complet sodium 017 mmoL/L ed measure 15:30 ment Serum = 4.5 3.5-5.1 complet potassi 017 mmoL/L ed um 15:30 measure ment Serum = 164 74-106 complet or 017 mg/dL ed plasma 15:30 glucose measure ment (mas Serum = 3.8 1.3-3.2 complet globuli 017 gm/dL ed n 15:30 measure ment (mass/v olume) Estimat = 39 59- complet ed 017 ML/MIN ed glomeru 15:30 lar filtrat ion rate (GF Estimat = 74 50-200 complet ion of 017 ML/MIN ed creatin 15:30 ine renal clearan ce Serum = 1.4 0.55-1. complet or 017 mg/dL 02 ed plasma 15:30 creatin ine measure ment ( Carbon = 25 21.0-32 complet dioxide 017 mmoL/L .0 ed 15:30 measure ment Serum = 100 98-107 complet or 017 mmoL/L ed plasma 15:30 chlorid e measure ment (mo Serum = 8.9 8.5-10. complet or 017 mg/dL 1 ed plasma 15:30 calcium measure ment (mas Serum = 25 7-18 complet or 017 mg/dL ed plasma 15:30 urea nitroge n measure men CBC w auto diff (05-14-2017 15:30) Absolut = 0.5 0.1-1.0 complet e 017 K/mm3 ed monocyt 15:30 e count Blood = 8.5 4.8-10. complet leukocy 017 K/MM3 8 ed meagan 15:30 count (number /volume ) Automat = 13.0 11.5-17 complet ed 017 % .5 ed erythro 15:30 cyte distrib ution width Red = 4.46 4.2-5.4 complet blood 017 M/mm3 ed cell 15:30 count Blood = 293 142-424 complet platele 017 K/mm3 ed t count 15:30 Automat = 6.8 7.4-10. complet ed 017 fl 4 ed blood 15:30 platele t mean volume tracy [place] % = 6.2 % 1.7-9.3 complet 017 ed 15:30 Automat = 83.1 82.2-97 complet ed 017 fl .8 ed erythro 15:30 cyte mean corpusc ular v Automat = 33.2 31.8-35 complet ed 017 g/dl .4 ed erythro 15:30 cyte mean corpusc ular h Automat = 0.4 0.0-0.4 complet ed 017 K/mm3 ed blood 15:30 eosinop hil count Mean = 27.6 27-31.2 complet corpusc 017 pg ed ular 15:30 hemoglo bin (MCH) determ Lymphoc = 25.2 10-50.0 complet yte 017 % ed count, 15:30 blood, automat ed Absolut = 2.1 0.7-4.5 complet e 017 K/mm3 ed lymphoc 15:30 yte count Blood = 12.3 12.2-16 complet hemoglo 017 g/dL .2 ed bin 15:30 measure ment (mass/v olum Blood = 37.1 37.0-47 complet hematoc 017 % .0 ed rit 15:30 (volume fractio n) Granulo = 62.5 37.0-80 complet cyte 017 % .0 ed percent 15:30 age Blood = 5.3 1.8-7.8 complet granulo 017 K/mm3 ed cytes 15:30 automat ed count (numb Automat = 5.1 % 0.1-12. complet ed 017 0 ed blood 15:30 eosinop hils/10 0 leukocy t Baso % = 1.0 % 0.1-2.0 complet 017 ed 15:30 Automat = 0.1 0-0.2 complet ed 017 K/MM3 ed blood 15:30 basophi l count (count/ vo Antibiotic sensitivity studies (05-12-2017 09:33) Piperac <= 4 complet illin/t 017 ug/ml ed azobact 09:33 am suscept ibility test by minimum inhibit ory concent ration Tobramy <= 1 complet stephanie 017 ug/ml ed suscept 09:33 ibility test by minimum inhibit ory concent ration Trimeth <= 20 complet oprim/s 017 ug/ml ed ulfamet 09:33 hoxazol e suscept ibility test by minimum inhibit ory concent ration Ampicil <= 2/1 complet marilee/sul 017 ug/ml ed bactam 09:33 suscept ibility test by minimum inhibit ory concent ration Levoflo 11-18-2 <= 0.12 complet xacin 017 ug/ml ed suscept 09:33 ibility test by minimum inhibit ory concent ration Imipene 11-18-2 = 1 complet m 017 ug/ml ed suscept 09:33 ibility test by minimum inhibit ory concent ration Gentami 11-18-2 <= 1 complet stephanie 017 ug/ml ed suscept 09:33 ibility test by minimum inhibit ory concent ration Nitrofu 11-18-2 = 32 complet rantoin 017 ug/ml ed 09:33 suscept ibility test by minimum inhibit ory concent ration Cefepim 11-18-2 <= 1 complet e 017 ug/ml ed suscept 09:33 ibility test by minimum inhibit ory concent ration Ertapen -18-2 <= 0.5 complet em 017 ug/ml ed suscept 09:33 ibility test by minimum inhibit ory concent ration Extende 18-2 = ug/ml complet d 017 ed spectru 09:33 m beta lactama se (ESBL) produci ng bacteri a suscept ibility test by minimum inhibit ory Cefazol -18-2 <= 4 complet in 017 ug/ml ed suscept 09:33 ibility test by minimum inhibit ory concent ration Ceftria 18-2 = 4 complet xone 017 ug/ml ed suscept 09:33 ibility test by minimum inhibit ory concent ration Ceftazi -18-2 <= 1 complet dime/po 017 ug/ml ed tassium 09:33 clavula mark suscept ibility test by minimum inhibit ory concent ration Amoxici -18-2 = 4 complet llin/cl 017 ug/ml ed avulana 09:33 te suscept ibility test by minimum inhibit ory concent ration Ampicil -18-2 = 4 complet marilee 017 ug/ml ed suscept 09:33 ibility test by minimum inhibit ory concent ration Urine culture (05-09-2017 14:15) Urine [id number] complet culture 017 07 ed 14:15 Escheri alena coli SCT EC ESCHERI ALENA COLI L Urinalysis with microscopy (05-09-2017 14:15) Mucus 3+ 3+ L NEG complet detecti [...] nce 14:15 SL determi CLOUDY nation L Urine 20 - 50 O complet leukocy [...] in 14:15 urine sedimen t by lig Urinalysis dipstick W Reflex Microscopic panel in [...] 14:15 ce] in Urine by Test strip Amylase ser/plas (05-09-2017 14:05) Amylase = 47 25-115 complet 017 U/L ed ser/zaira 14:05 s Comprehensive metabolic panel (05-09-2017 14:05) Serum = 1.0 1.1-1.8 complet or 017 ed plasma 14:05 albumin /globul in mass ra Protein = 7.9 6.4-8.2 complet total 017 [...] glomeru 14:05 lar filtrat ion rate (GF Estimat = 114 50-200 complet ion of [...] ed plasma 14:05 albumin measure ment (mas CBC w auto diff (05-09-2017 14:05) Automat = 6.9 7.4-10. complet ed 017 fl 4 ed blood 14:05 platele t mean volume tracy [place] % = 4.0 % 1.7-9.3 complet 017 [...] complet measure 017 U/L ed ment 14:05 Glucose capillary blood glucometer (04-03-2017 10:10) Glucose [...] by Microsc opy high power field Leukocy 01-09- 20-50 O complet meagan 017 wbc/hpf ed [#/volu 02:27 me] in Urine Yeast 2 3+ NONE complet [Presen 017 ed ce] in 02:27 Urine sedimen t by Light microsc opy Urinalysis dipstick W Reflex Microscopic panel in Urine (01-09-2017 02:27) Appeara 01-09- SL CLEAR complet nce of 017 CLOUDY [...] sedimen t by Light microsc opy Nitrite 01-09- NEGATIV NEG complet 017 E ed [Presen 02:27 ce] in Urine by Test strip Urobili 01-09-2 0.2 NEG complet nogen 017 ed [Presen 02:27 ce] in Urine by Test strip COMPREHENSIVE METABOLIC PANEL (04-03-2013 18:10) Glucose 336 74-106 complet 013 mg/dL ed Bld-mCn 18:10 c BUN 10 7-18 complet Bld-mCn 013 mg/dL ed [...] 013 mmoL/L ed SerPl-s 18:10 Cnc Chlorid 1010-2 101 98-107 complet e 013 mmoL/L ed SerPl-s 18:10 Cnc CO2 1010-2 22 21.0-32 complet SerPl-s 013 mmoL/L .0 ed Cnc 18:10 Calcium 1010-2 9.0 8.5-10. complet 013 mg/dL 1 ed SerPl-m 18:10 Cnc Prot 1010-2 7.3 6.4-8.2 complet SerPl-m 013 gm/dL ed Cnc 18:10 Albumin 1010-2 3.6 3.4-5.0 complet 013 gm/dL ed SerPl-m 18:10 Cnc Globuli 1010-2 3.7 1.3-3.2 complet n 013 gm/dL ed [...] g/dL .2 ed c 18:10 Hct Fr 10-2 42.4 % 37.0-47 complet Bld 013 .0 ed 18:10 MCV RBC 10-2 87.9 fl 82.2-97 complet 013 .8 ed [...] Shah MD (ER) 3 00:03 3 00:46 [facility] Emergency WALLY Shah MD (ER) 3 18:37 3 21:35 [facility]
--- OUTSIDE RECORDS SUMMARY | 2017-05-31 01:46 | External Medical Summary Rpt | CCD ---
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 TALLY CLERK 09-08-2016 (CURRENT) USE OF NON-STEROID AL ANTI-INFLAM MATORIES (NSAID) Z79.82 [facility] 09-08-2016 (CURRENT) USE OF ASPIRIN Z79.899 OTHER LONG 09-08-2016 TERM (CURRENT) DRUG THERAPY Z88.3 ALLERGY 09-08-2016 STATUS TO OTHER ANTI-INFECT ANNABELLA AGENTS STATUS 244.9 250.00 250.01 272.4 401.9 599.0 724.5 Chronic [place] back pain [facility] [id number] [facility] A08.4 VIRAL INTESTINAL INFECTION, UNSPECIFIED B37.2 CANDIDIASIS OF SKIN AND NAIL E03.9 HYPOTHYROID ISM, UNSPECIFIED E11.649 TYPE 2 DIABETES MELLITUS WITH HYPOGLYCEMI A WITHOUT COMA E78.4 OTHER HYPERLIPIDE NKIOLAY E86.0 DEHYDRATION E87.6 HYPOKALEMIA F11.20 OPIOID DEPENDENCE, [...] ten value = RESULT: <1.2 L HEPATIT [id number] complet IC C 017 09 ed VIRUS [...] blood 15:30 platele t mean volume tracy Cannon % = 6.2 % 1.7-9.3 complet 017 [...] concent ration Urine culture (05-09-2017 14:15) Urine [id number] complet culture 017 07 ed 14:15 Escheri [...] blood 14:05 platele t mean volume tracy Cannon % = 4.0 % 1.7-9.3 complet 017 [...] MD (ER) 3 00:03 3 00:[address] [facility] Emergency WALLY Shah MD (ER) 3 18:37 3 21:[address] [facility]
--- OUTSIDE RECORDS SUMMARY | 2017-05-31 02:02 | External Medical Summary Rpt | CCD ---
Author Author , LEOBARDO Gloria LEOBARDO Address Unknown Phone [email or web address] Providers Care Filter Washer Name Role Phone [facility], [facility]available Unavailable [facility] Unavailable Unavailable [place], [facility] [place] [facility] D[facility], Unavailable Unavailable [facility] Unavailable Unavailable SERVICES, [facility] Unavailable [facility], [facility] LAURIE WELLS, Unavailable Unavailable LAURIE WELLS ANTONIO, Unavailable Unavailable [facility] Unavailable Unavailable SERVICE, [facility] Unavailable Unavailable SERVICE, [facility] José LYONS MD Unavailable Unavailable [facility], José LYONS MD [facility], Unavailable Unavailable [facility] Unavailable Unavailable [facility], [facility], Unavailable Unavailable [facility], Unavailable [facility]available [facility] Unavailable Unavailable ASSOCIATE, [facility] Unavailable Unavailable [place], [facility] SUMMERS, KHURRAM A, Unavailable Unavailable SUMM[facility], KHURRAM A [facility] Unavailable Unavailable [facility], [facility] HOMERFREDO ANDRADE, Unavailable Unavailable HOMER, FREDO [facility], Unavailable Unavailable [facility] Un[facility] Unavailable [facility], [facility] Unavailable Unavailable [facility], [facility]available Unavailable [facility], [facility] Unavailable LLC, [facility] ARVIZU DEIDRA, Unavailable Unavailable ARVIZU DEIDRA [facility] Unavailable Unavailable SPECIAL, [facility] Unavailable Unavailable [place], [facility], [facility] Unavailable Unavailable JOSEPH KESSLER, Unavailable Unavailable JOSEPH KESSLER ANDREW R, Unavailable Unavailable GISELLE SHEA HARRIES Unavailable [facility]available [facility] Unavailable Unavailable INC, [facility] Unavailable Unavailable HOSPITAL P, [facility], Unavailable Unavailable [facility], Unavailable Unavailable [facility] MARIANA GALEANA, Unavailable Unavailable MARIANA GALEANA [facility] Unavailable Unavailable [facility], [facility], Unavailable Unavailable [facility] KAVYA OWENS Unavailable Unavailable ERVIN WICK, Unavailable Unavailable ERVIN HOFF [facility], [facility] Un[facility] Un[facility], [facility] Un[facility], [facility] Un[facility], [facility] Unavailable Unavailable HOLDING, [facility] Un[facility] Un[facility] Un[facility] Unavailable [facility], [facility] Unavailable Unavailable [facility], [facility] Unavailable Unavailable [facility], [facility] M E D SUPPLIES, M E D Unavailable Unavailable SUPPLIES [facility] Unavailable Unavailable SERVICES, [facility] MARNI LUIS ALFREDO, Unavailable Unavailable MARNI LUIS ALFREDO LANDRUM, Unavailable Unavailable KANNAN CAIN JR Unavailable Unavailable F, KANNAN FAJARDO JR, EMMETT P, Unavailable Unavailable RACHEL MÉNDEZ FRANK C, Unavailable Unavailable LILIYA ESCOBAR JOHN, Unavailable Unavailable [facility], [facility], [facility] Unavailable Unavailable LABS, LLC [facility], Unavailable Unavailable PLL[facility], [facility], [facility] PATHOLOGY & CYTOLOGY Unavailable Unavailable LAB, PATHOLOGY & CYTOLOGY LAB PAWSAT MAR, PAWSAT Unavailable Unavailable [facility], Unavailable Unavailable [facility] PUNAYAKA Pichardo R, Unavailable Unavailable PUND, CHRISTOPHER R [facility], Unavailable Unavailable [id number], Unavailable Unavailable [id number] SOKAN, GRACE O, Unavailable Unavailable SOKAN, GRACE O [facility] Unavailable Unavailable E[facility], [facility] Un[facility], [facility] Unavailable Unavailable [facility], [facility] Unavailable Unavailable HOSPITALS, [facility], [facility]available Unavailable [facility] Unavailable [facility]available [id number], [id number] [facility] Unavailable Unavailable OF [facility], Unavailable Unavailable [facility] Purpose Continuity of Care Document - 08-20-2007 through 2016 Problems Code Diagnosis DOS Provider Status E1165 TYPE 2 04-12-2017 [facility] SOLUTIONS [place]CEM [place] L282 OTHER 04-12-2017 [facility] PRURIGO HEALTH SOLUTIONS IN M6009 INFECTIVE 04-12-2017 [facility] MYOSITIS HEALTH MULTIPLE SOLUTIONS SITES IN E119 TYPE 2 04-03-2017 [facility] MELLITUS INC WITHOUT COMPLICATIO NS N3020 OTHER 04-03-2017 [facility] CHRONIC [facility] CYSTITIS INC WITHOUT HEMATURIA N393 STRESS 04-03-2017 [facility] INCONTINENC [facility] E FEMALE INC MALE [id number] PAIN IN 03-26-2017 [facility] RIGHT ELBOW [facility] INC A63093 PAIN IN 03-26-2017 [facility] RIGHT HIP [facility] INC N28346 PAIN IN 03-26-2017 [facility] LEFT HIP [facility] INC J62042 PAIN IN 03-26-2017 [facility] RIGHT KNEE [facility] INC F71820 PAIN IN 03-26-2017 [facility] LEFT KNEE [facility] INC 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 I5030 UNSPECIFIED 03-20-2017 [facility] DIASTOLIC [facility] CONGESTIVE INC HEART FAILURE R0600 DYSPNEA 03-20-2017 [facility] UNSPECIFIED [facility] INC R079 CHEST PAIN 03-20-2017 [facility] UNSPECIFIED [facility] INC R609 EDEMA 03-20-2017 [facility] UNSPECIFIED [facility] INC M545 LOW BACK 03-19-2017 [facility] PAIN [facility] INC [id number] PAIN IN 03-19-2017 [facility] RIGHT LEG [facility] INC R32 UNSPECIFIED 03-13-2017 [facility] URINARY [facility] INCONTINENC INC E I119 HYPERTENSIV 02-14-2017 [facility] E HEART [facility] DISEASE INC WITHOUT HEART FAILURE I6523 OCCLUSION & 02-14-2017 [facility] STENOSIS [facility] BILATERAL INC CAROTID ARTERIES R0602 SHORTNESS 02-14-2017 [facility] OF BREATH [facility] INC R42 DIZZINESS 02-14-2017 [facility] AND [facility] GIDDINESS INC Z720 TOBACCO USE 02-14-2017 [facility] INC E871 HYPO-OSMOLA 01-25-2017 [facility] LITY AND [facility] HYPONATREMI INC A I270 PRIMARY 01-25-2017 [facility] PULMONARY [facility] HYPERTENSIO INC N R011 CARDIAC 01-18-2017 [facility]UR[facility]UR [facility] UNSPECIFIED INC I10 ESSENTIAL 01-09-2017 [facility] PRIMARY [facility] HYPERTENSIO INC N E6137PR CONTUSION 01-09-2017 [facility] OTHER PART [facility] OF HEAD INC INITIAL ENCOUNTER B7460RR SPRAIN 01-09-2017 [facility] UNSPECIFIED [facility] SITE RT INC KNEE INITIAL ENCNTR Z794 SENIOR LIVING 01-09-2017 [facility] CURRENT USE [facility] OF INSULIN INC N97632 OTHER LONG 01-09-2017 [facility] TERM [facility] CURRENT INC DRUG THERAPY J449 CHRONIC 01-03-2017 [facility] OBSTRUCTIVE [facility] PULMONARY INC DISEASE UNS R55 SYNCOPE AND 01-03-2017 [facility] COLLAPSE [facility] INC V94694 PERSONAL 01-03-2017 [facility] HISTORY OF [facility] NICOTINE INC DEPENDENCE N3000 ACUTE 12-23-2016 [facility] CYSTITIS [facility] WITHOUT INC HEMATURIA G01852 PAIN IN 11-06-2016 [facility] LEFT LEG [facility] INC J3089 OTHER 10-31-2016 [facility] [place] J310 CHRONIC 10-31-2016 [facility] RHINITIS [facility] [place] J4550 SEVERE 10-31-2016 [facility] PERSISTENT [facility] [place] UNCOMPLICAT ED B62493 ALLERGY TO 10-31-2016 [facility] OTHER FOODS [facility] [place] 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 ATHY LUMB RGN M549 DORSALGIA 10-23-2016 [facility] UNSPECIFIED [facility] INC R300 DYSURIA 10-19-2016 [facility] INC E039 HYPOTHYROID 10-05-2016 [facility] ISM [facility] UNSPECIFIED INC M7702 MEDIAL 09-19-2016 [facility] EPICONDYLIT [facility] IS LEFT INC ELBOW J040 ACUTE 2016 [facility] LARYNGITIS PHYSICIAN GROUP R46377 SPONDYLOSIS 09-15-2016 [facility] MYELOPATH/R HOSPITALS ADICULOPATH Y THOR RGN P95640 SPONDYLOSIS 09-15-2016 [facility] MYELOPATH/R HOSPITALS ADICULPATHY LS RGN M546 PAIN IN 09-15-2016 [facility] J069 ACUTE UPPER 09-12-2016 [facility] RESPIRATORY INC INFECTION UNSPECIFIED Q63507 PAIN IN 09-08-2016 [facility] LEFT ELBOW PHYSICIANS GROUP J40 BRONCHITIS 09-06-2016 [facility] NOT N EMERGENCY SPECIFIED PHYS ACUTE OR CHRONIC R05 COUGH 09-06-2016 [facility] M542 CERVICALGIA 08-29-2016 [facility] R51 HEADACHE 08-29-2016 [facility] V7500DR CONTUSION 08-29-2016 [facility] OF SCALP PHYSICIANS, INITIAL PLLC ENCOUNTER B727NFB UNSPECIFIED 08-29-2016 [place] INJURY OF MEDICAL NECK IMAGING ASS INITIAL ENCOUNTER P68DIGX UNSPECIFIED 08-29-2016 [facility] INITIAL SERVICE ENCOUNTER A41454 PRIMARY 08-22-2016 [place] OSTEOARTHRI MEDICAL TIS LEFT IMAGING ASS ELBOW K8689 OTHER 08-15-2016 [facility] SPECIFIED PHYSICIANS, DISEASES OF PLLC PANCREAS R1084 GENERALIZED 08-15-2016 [facility] ABDOMINAL PHYSICIANS, PAIN PLLC R8299 OTHER 08-07-2016 [facility] ABNORMAL [facility] FINDINGS IN INC URINE K80013 MIGRAINE 08-04-2016 [facility] UNS PHYSICIANS, INTRACTABLE PLLC W/STATUS MIGRAINOSUS F68775 UNSPECIFIED 08-04-2016 [facility] WITH ACUTE LLC EXACERBATIO N B7549ZF CONTUSION 08-04-2016 [facility] EYEBALL & PHYSICIANS, ORBITAL PLLC TISSUES RT EYE INIT F81834 ELEVATED 07-26-2016 [facility] BLOOD [facility] CELL COUNT HOSPITAL P UNSPECIFIED K529 NONINFECTIV 07-14-2016 [facility] E [facility] GASTROENTER INC ITIS & COLITIS UNS I509 HEART 07-12-2016 [facility] UNSPECIFIED HOSPITAL P R0789 OTHER CHEST 07-12-2016 [facility] PAIN PHYSICIANS, PLLC I272 OTHER 07-05-2016 [facility] SECONDARY [facility] PULMONARY INC HYPERTENSIO N I959 HYPOTENSION 07-05-2016 [facility] UNSPECIFIED INC E109 TYPE 1 07-04-2016 [place] DIABETES [facility] MELLITUS HOSPITAL P WITHOUT COMPLICATIO NS I9589 OTHER 07-04-2016 [facility] HYPOTENSION [facility]YSICIANS, PLLC R400 SOMNOLENCE 07-04-2016 [facility], PLLC G8929 OTHER 06-29-2016 [facility] CHRONIC [facility] PAIN INC M4807 SPINAL 06-29-2016 [facility] STENOSIS [facility] LUMBOSACRAL INC REGION R042 HEMOPTYSIS 06-28-2016 [facility] R918 OTHER 06-28-2016 [facility] NONSPECIFIC [facility] ABNORMAL INC FINDING OF LUNG FIELD R10177 TYPE 2 06-21-2016 [facility] DIABETES [facility] MELLITUS INC W/HYPOGLYCE NIKOLAY W/O COMA M5432 SCIATICA 06-13-2016 [facility] LEFT SIDE PHYSICIANS, [facility] M5442 LUMBAGO 06-13-2016 [facility] WITH PHYSICIANS, SCIATICA PLL LEFT SIDE Q44522 TYPE 2 06-12-2016 [facility] MELLITUS MEDICAL WITH FOOT EQUIPME ULCER X24386 TYPE 2 06-12-2016 [facility] MELLITUS MEDICAL WITH OTHER EQUIPME SKIN ULCER G894 CHRONIC 06-12-2016 [facility] PAIN PHYSICIANS SYNDROME GROUP M4307 SPONDYLOLYS 06-12-2016 [facility] IS PHYSICIANS LUMBOSACRAL GROUP REGION L14507 PERSONAL 06-12-2016 [facility] HISTORY OF PHYSICIANS OTHER GROUP SPECIFIED CONDITIONS E876 HYPOKALEMIA 06-06-2016 [facility], [facility] K5900 CONSTIPATIO 06-06-2016 [place] N MEDICAL UNSPECIFIED IMAGING ASS N200 CALCULUS OF 06-06-2016 [place] KIDNEY [facility]ICAL [facility] ASS N390 URINARY 06-06-2016 [facility] TRACT PHYSICIANS, INFECTION [facility] SITE NOT SPECIFIED R531 WEAKNESS 06-06-2016 [place] [facility] R634 ABNORMAL 06-06-2016 [place] WEIGHT LOSS MEDICAL IMAGING ASS J050 ACUTE 05-18-2016 [facility] OBSTRUCTIVE PHYSICIANS, LARYNGITIS [facility] CROUP L299 PRURITUS 05-18-2016 [facility] UNSPECIFIED PHYSICIANS, [facility] M5127 OTH 05-17-2016 [place] INTERVERTEB MEDICAL RAL DISC IMAGING ASS DISPLACEMEN T LS REGION M5136 OTH 05-17-2016 [place] 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 U0953KX CONTUSION 05-13-2016 [facility] OF RIGHT PHYSICIANS, KNEE [facility] INITIAL ENCOUNTER X31921 MIGRAINE 05-09-2016 [facility] W/O AURA PHYSICIANS, NOT INTRACT PLL W/O STAT MIGRAIN B351 TINEA 04-13-2016 [place] UNGUIUM FOOT & ANKLE CE I7090 UNSPECIFIED 04-13-2016 [place] FOOT & ATHEROSCLER ANKLE CE OSIS O53721 PAIN IN 04-13-2016 [place] UNSPECIFIED FOOT & LIMB ANKLE CE R0781 PLEURODYNIA 03-31-2016 [place] [facility] R52 PAIN 03-31-2016 [facility] UNSPECIFIED [facility]BULANCE SERVICE P47013Q CONTUSION 03-31-2016 [facility] UNS FRONT PHYSICIANS, WALL THORAX PLLC INITIAL ENCNTR S169DAD UNSPECIFIED 03-31-2016 [place] INJURY OF MEDICAL THORAX IMAGING ASS INITIAL ENCOUNTER L0291 CUTANEOUS 03-20-2016 [facility] ABSCESS [facility] UNSPECIFIED INC L61997E CONTUSION 03-17-2016 [facility] LEFT FRONT PHYSICIANS, WALL THORAX PLLC INITIAL ENC A96232V CONTUSION 03-17-2016 [facility] OF LEFT PHYSICIANS, SHOULDER PLLC INITIAL ENCOUNTER M18280 NON-PRSS 03-14-2016 [facility] CHRN ULCER PHYSICIANS SKIN OTH GROUP SITES UNS SEVERITY P06803 CELLULITIS 03-09-2016 [facility] OF [facility] ABDOMINAL INC WALL X6657VP OTHER 03-09-2016 [facility] COMPLICATIO PHYSICIANS, NS PROC NEC PLLC INITIAL ENCOUNTER E049 NONTOXIC 02-17-2016 [facility] GOITER PHYSICIANS UNSPECIFIED GROUP R1310 DYSPHAGIA 02-17-2016 [facility] UNSPECIFIED PHYSICIANS GROUP E26329Q UNS FOREIGN 02-17-2016 [facility] BODY PHYSICIANS LARYNX CAUS GROUP OTH INJURY INIT ENC P609PBO STRAIN 02-10-2016 [facility] MUSCLE FASC [facility] & TENDON INC NECK LEVL INIT ENC B1879SD CONTUSION 02-10-2016 [facility] OF LEFT HIP [facility] INITIAL INC ENCOUNTER L56121H UNSPECIFIED 02-10-2016 [place] INJURY MEDICAL LEFT HIP IMAGING ASS INITIAL ENCOUNTER X01348 UNSPECIFIED 02-07-2016 [facility] KERATITIS LEFT EYE R221 LOCALIZED 02-05-2016 [facility] SWELLING [facility] MASS AND INC LUMP NECK R4702 DYSPHASIA 02-03-2016 [facility] INC R5383 OTHER 06-15-2015 [facility] FATIGUE [facility] INC P15789A CONTUSION 06-03-2015 [facility] RT FRONT PHYSICIANS, WALL THORAX PLLC INITIAL ENCOUNTER E77605 PAIN IN 05-29-2015 [place] RIGHT WRIST MEDICAL IMAGING ASS K56765 PAIN IN 05-29-2015 [place] UNSPECIFIED MEDICAL HIP IMAGING ASS Q4955XY CONTUSION 05-29-2015 [place] OF NOSE MEDICAL INITIAL IMAGING ASS ENCOUNTER U28590S UNSPECIFIED 05-29-2015 [facility] SPRAIN [facility] RIGHT WRIST INC INITIAL ENCOUNTER P9752RW SPRAIN 05-29-2015 [facility] UNSPECIFIED [facility] SITE LT INC KNEE INITIAL ENCNTR Z043 ENCOUNTER 05-29-2015 [place] EXAM & MEDICAL OBSERVATION IMAGING ASS FOLLOW OTH ACCIDENT E1121 TYPE 2 05-25-2015 [place] DIABETES [facility] MELLITUS HOSPITAL P W/DIABETIC NEPHROPATHY I96 GANGRENE 05-25-2015 [facility] NOT ANESTH OF ELSEWHERE THE BLUE CLASSIFIED P95912 NON-PRSS 05-25-2015 [facility]O & OTH PART RT DUBILIER FT W/UNS SEVERITY Q50352 OTHER ACUTE 05-25-2015 [facility] P IS RIGHT ANKLE AND FOOT Z9111 PATIENTS 05-25-2015 [place] NONCOMPLIAN [facility] CE WITH HOSPITAL P DIETARY REGIMEN F65786 NON-PRSS 05-24-2015 [facility] MEDICAL OTH PART LT IMAGING ASS FOOT UNS SEVERITY M2011 HALLUX 05-24-2015 [facility] VALGUS PHYSICIANS, ACQUIRED PLLC RIGHT FOOT 7231 CERVICALGIA 03-06-2015 [place] [facility] 7802 SYNCOPE AND 03-06-2015 [place] COLLAPSE MEDICAL IM[facility]ING ASS 7840 HEADACHE 03-06-2015 [place] [facility] 34225 INJURY OF 03-06-2015 [place] FACE AND MEDICAL NECK OTHER IMAGING ASS AND UNSPECIFIED 17837 ACUTE PAIN 03-05-[address] [facility] DUE TO AMBULANCE TRAUMA SERVICE 87165 PAIN IN 03-05-2015 [place] JOINT MEDICAL PELVIC IMAGING ASS REGION AND THIGH 8470 NECK SPRAIN 03-05-2015 [facility] AND STRAIN PHYSICIANS, PLLC 920 CONTUSION 03-05-2015 [facility] OF FACE PHYSICIANS, SCALP AND PLLC NECK EXCEPT EYE E8889 UNSPECIFIED 03-05-2015 [facility] 7881 DYSURIA 02-24-2015 [place] [address] DIAB W/O 02-09-2015 [facility] COMP TYPE I HOME [JUV] NOT MEDICAL STATED EQUIPME UNCNTRL 62144 OBSTRUCTIVE 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 EQUIPME 03531 EXTRINSIC 02-09-2015 [facility], HOME UNSPECIFIED MEDICAL EQUIPME 81710 DIAB W/OTH 02-03-2015 [facility] MANIFESTS [facility] TYPE I INC [JUV] NOT UNCNTRL 4019 UNSPECIFIED 02-03-2015 [facility] ESSENTIAL [facility] HYPERTENSIO INC N 4139 OTHER AND 02-03-2015 [facility] UNSPECIFIED [facility] ANGINA INC PECTORIS 496 CHRONIC 02-03-2015 [facility] AIRWAY [facility] OBSTRUCTION INC NEC 81241 OTHER 02-03-2015 [facility] MALAISE AND [facility] FATIGUE INC V5867 LONG-TERM 02-03-2015 [facility] USE OF [facility] INSULIN INC 7906 OTHER 02-01-2015 [facility] ABNORMAL [facility] BLOOD INC CHEMISTRY V7389 SPECIAL 02-01-2015 [facility] SCREENING [facility] EXAMINATION INC OTH SPEC VIRAL DZ 7295 PAIN IN 01-06-2015 [place] SOFT MEDICAL TISSUES OF IMAGING ASS LIMB 20192 SWELLING OF 01-06-2015 [place] LIMB MEDICAL IMAGING ASS 7823 EDEMA 01-06-2015 [facility] INC 65772 CHEST PAIN 12-31-2014 [place] UNSPECIFIED MEDICAL IMAGING ASS 47939 PAIN IN 12-17-[facility], MEDICAL SHOULDER IMAGING ASS REGION 01237 PAIN IN 12-17-[facility], MEDICAL FOREARM IMAGING ASS 16037 PAIN IN 12-17-2014 [place] JOINT, MEDICAL LOWER LEG IMAGING ASS 8408 SPRAIN&STRA 12-17-2014 [facility] IN OTH SPEC [facility]OS[facility] SITES INC SHOULDER&UP PER ARM 8409 SPRAIN&STRA 12-17-2014 [facility] IN UNSPEC PHYSICIANS, SITE PLLC SHOULDER&UP PER ARM 66256 SPRAIN AND 12-17-2014 [facility] STRAIN OF [facility] UNSPECIFIED INC SITE OF WRIST 8449 SPRAIN&STRA 12-17-2014 [facility] IN OF [facility] UNSPECIFIED INC SITE OF KNEE&LEG 9221 CONTUSION 12-17-2014 [facility] OF CHEST [facility] WALL INC 84629 OTHER 12-17-2014 [facility] OF MEDICAL CHEST WALL IMAGING ASS 41772 OTHER 12-17-2014 [facility] OF MEDICAL OTHER SITES IMAGING ASS OF TRUNK 9592 INJURY 12-17-[facility] OTHER&UNSPE MEDICAL CIFIED IMAGING ASS SHOULDER&UP PER ARM 9593 INJURY 12-17-[facility] OTHER&UNSPE MEDICAL CIFIED IMAGING ASS ELBOW FOREARM&WRI ST 9597 INJURY 12-17-[facility] OTHER&UNSPE MEDICAL CIFIED KNEE IMAGING ASS LEG ANKLE&FOOT V714 OBSERVATION 12-17-2014Y FOLLOWING MEDICAL OTHER IMAGING ASS ACCIDENT 5718 OTHER 12-16-2014 [place] [facility] CHRONIC SERV NONALCOHOLI FOUNDATION C LIVER DISEASE 99827 ABDOMINAL 12-16-2014 [place] [facility] PAIN RIGHT SERV UPPER [facility]OUND[facility] QUADRANT 7892 SPLENOMEGAL 12-16-2014 [place] [facility] Y SERV [facility] 2512 HYPOGLYCEMI 11-25-2014 [facility] A, [facility] UNSPECIFIED INC 48055 SHORTNESS 11-11-2014 [place] [facility] OF BREATH SERV [facility] 83580 DIAB 10-23-2014 [facility] W/NEURO [facility] MANIFESTS INC TYPE II/UNS TYPE UNCNTRL 11820 UNSPECIFIED 10-23-2014 [facility] CELLULITIS [facility] AND INC ABSCESS OF TOE 34651 ULCER OF 10-23-2014 [facility] OTHER PART PATHOLOGY OF FOOT SERVICES 7224 DEGENERATIO 10-17-2014 [facility] OF MEDICAL CERVICAL IMAGING ASS INTERVERTEB RAL DISC 37735 DIAB W/O 09-27-2014 [facility] COMP TYPE [facility] II/UNS NOT INC STATED UNCNTRL 2724 OTHER AND 09-27-2014 [facility] UNSPECIFIED [facility] INC HYPERLIPIDE NIKOLAY 42801 OBESITY, 09-27-2014 [facility] UNSPECIFIED [facility] INTERNAL MED 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 INC UNSPECIFIED 79236 ALTERED 09-27-2014 [facility] MENTAL [facility] STATUS INTERNAL MED 7862 COUGH 09-27-2014 [place] [facility] 80416 POISONING 09-27-2014 [facility] BY OPIUM , [facility] UNSPECIFIED INTERNAL MED E8502 ACCIDENTAL 09-27-2014 [facility] HAWKINS [facility] O[facility]REL [facility]PITAL P ATED NARCOTICS 5180 PULMONARY 09-26-2014 [place] COLLAPSE MEDICAL IMAGING ASS 03842 FEVER 09-26-2014 [place] UNSPECIFIED MEDICAL IMAGING ASS 7869 OTH 09-26-2014 [place] SYMPTOMS MEDICAL INVOLVING IMAGING ASS RESPIRATORY SYSTEM&CHES T V053 NEED PROPH 09-07-2014 [place] [facility] VACC&INOCUL SERV AT AGAINST FOUNDATION VIRAL HEP 51208 CONTUSION 09-03-2014 [facility] P 31331 CONTUSION 09-03-2014 [facility] HIP [facility] P 54457 CLOSED 05-01-2014 [facility] FRACTURE PHYSICIANS METACARPAL GROUP BONE SITE UNSPECIFIED E8888 OTHER FALL 04-28-2014 [facility] V1582 PERS HX 04-28-2014 [facility] TO[facility]ACCO USE [facility] PRESENTING INC HAZARDS HEALTH 2104 BENIGN 04-27-2014 EAR, NOSE NEOPLASM AND THROAT OTHER&UNSPE SPECIAL CIFIED PARTS MOUTH 85780 DYSFUNCTION 04-27-2014 EAR, NOSE OF AND THROAT EUSTACHIAN SPECIAL TUBE 01591 OTOGENIC 04-27-2014 EAR, NOSE PAIN AND THROAT SPECIAL 83088 DYSPHAGIA 04-27-2014 EAR, NOSE UNSPECIFIED AND THROAT SPECIAL 4770 ALLERGIC 04-13-2014 [facility]FR[facility] DUE TO POLLEN 4778 ALLERGIC 04-13-2014 [facility] DUE TO OTHER ALLERGEN 4772 ALLERGIC 04-06-2014 [facility] DUE TO ANIMAL HAIR AND DANDER 22348 CHRONIC 04-06-2014 [facility] OBSTRUCTIVE [facility] ASTHMA UNSPECIFIED 02096 SENSORINEUR 04-03-2014 EAR, NOSE AL HEARING AND THROAT LOSS SPECIAL BILATERAL 2728 OTHER 03-19-2014 [facility] 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 94350 DIAB 03-16-2014 [facility] TYPE II/UNS NOT UNCNTRL 5939 UNSPECIFIED 03-03-2014 [facility] N EMERGENCY OF KIDNEY PHYS AND URETER 5990 URINARY 03-03-2014 [facility] EMERGENCY INFECTION PHYS SITE NOT SPECIFIED 37997 OTHER 01-28-2014 [facility] DISORDER OF STOMACH AND DUODENUM 5715 CIRRHOSIS 01-28-2014 [facility] WITHOUT MENTION OF ALCOHOL 5723 PORTAL 01-28-2014 [facility] N V7651 SPECIAL 01-28-2014 [facility] FOR MALIGNANT NEOPLASMS COLON 2168 BENIGN 01-21-2014 [...] GOITER, 12-23-2013 [facility] UNSPECIFIED [facility] INC 89183 ABDOMINAL 12-15-2013 [facility] PAIN OTHER [facility] SPECIFIED INC SITE 42443 OTHER ACUTE 12-01-2013 [facility] 53699 ANEURYSM OF 12-01-2013 [facility] ARTERY [facility] 5778 OTHER 12-01-2013 [place] [facility] SPEC[facility] DISEASE OF [facility] PANCREAS 38610 DIARRHEA 12-01-[address] [facility] 25948 ABDOMINAL 12-01-2013 [facility] UNSPECIFIED [facility] SITE 7948 NONSPECIFIC 12-01-2013 [place] [facility] ABNORM[facility] RESULTS [facility] LIVR FUNCTION STUDY V762 SCREENING 11-19-2013 [facility] MALIGNANT NEOPLASM OF THE CERVIX 63070 OTHER CHEST 11-08-2013 [facility]ERG[facility]Y PHYS 44023 OTHER 11-08-2013 [place] NONSPECIFIC MEDICAL ABNORMAL IMAGING ASS FINDING OF LUNG FIELD 7242 LUMBAGO 09-23-2013 [facility] INC V571 OTHER 09-23-2013 [facility] THERAPY INC V5869 LONG-TERM 09-17-2013 [facility] (CURRENT) [facility] USE OF INC OTHER MEDICATIONS 7226 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 UNSPEC 04059 DEGEN 09-11-2013 [place] [facility] LUMBAR/LUMB SERV OSACRAL FOUNDATIO INTERVERTEB RAL DISC 81376 MIXED 09-02-2013 [place] INCONTINENC [facility] E URGE AND [facility] P STRESS 84018 MORBID 08-25-2013 [place] OBESITY [facility] P 4409 GENERALIZED 08-25-2013 [facility] AND MEDICAL UNSPECIFIED IMAGING ASS ATHEROSCLER OSIS 4471 STRICTURE 08-25-2013 [place] OF [facility] 4830 PNEUMONIA 08-25-2013 [place] DUE TO [facility] P PNEUMONIAE 36567 SCOLIOSIS , 08-25-2013 [place] IDIOPATHIC [facility]ICAL IMAGING ASS V8541 BODY MASS 08-25-2013 [facility] 40.0-44.9 HOSPITAL P ADULT 4829 UNSPECIFIED 08-23-2013 [place] B[facility]ERIAL [facility]Y PNEUMONIA SERVICES 55193 OTHER 08-23-2013 [place] DISEASES OF MEDICAL LUNG NOT IMAGING ASS ELSEWHERE CLASSIFIED 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 3540 CARPAL 08-20-2013 [facility] MITCH 7238 OTHER 08-20-2013 [facility] SYNDROMES [facility]UROLOGY AFFECTING CENTER MICTH CERVICAL REGION 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 07766 SPINAL STEN 08-18-2013 [place] LUMB REG MEDICAL W/O IMAGING ASS NEUROGENIC CLAUDICATIO N 8404 ROTATOR 07-26-2013 [place] CUFF SPRAIN [facility] AND STRAIN INC 5989 UNSPECIFIED 05-06-2013 [place] URETHRAL [facility] STRICTURE HOSPITAL P 98282 UNSPECIFIED 04-29-2013 [place] URETHRITIS [facility] P 5952 OTHER 04-08-2013 [place] 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[facility] CYSTITIS [facility] P 95052 DIAB W/O 04-03-2013 [facility] MENTION [facility] COMP TYPE I INC [JUV TYPE] UNCNTRL 36937 UNSPECIFIED 04-03-2013 [place] [facility] CONSTIPATIO SERVICES N 14575 OTHER 03-31-2013 [facility] CHRONIC [facility] ALLERGIC CONJUNCTIVI TIS 61136 NUCLEAR 03-18-2013 [place] [facility] 3669 UNSPECIFIED 03-18-2013 [facility] CATARACT [facility] INC V148 PERSONAL 03-18-2013 [facility] HISTORY [facility] ALLERGY OTH INC SPEC MEDICINAL AGTS 2689 UNSPECIFIED 02-25-2013 [facility] VITAMIN D [facility] DEFICIENCY 4919 UNSPECIFIED 02-04-2013 [facility] CHRONIC [facility] BRONCHITIS 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 12145 MIGRAINE 01-30-2013 [facility] UNSP W/O VALLEY INTRACT W/O INTERNAL STATUS MED MIGRAINOSUS 63181 ABDOMINAL 01-23-2013 [facility], LEFT PHYSICIANS LOWER LA QUADRANT 460 ACUTE 01-22-2013 [place] NASOPHARYNG VALLEY ITIS INTERNAL MEDI 21010 VISUAL 01-14-2013 [place] [facility] 3688 OTHER 01-14-2013 [place] SPECIFIED EYE VISUAL INSTITUTE DISTURBANCE S 490 BRONCHITIS 12-28-2012 [place] NOT VALLEY SPECIFIED INTERNAL ACUTE OR MED CHRONIC 5110 PLEURISY 12-20-2012 [facility] WITHOUT [facility] MENTION INC EFFUS/[place] [address] PAINFUL 12-20-2012 [place] RESPIRATION VALLEY INTERNAL MED 18103 DIAB W/O 12-17-2012 M E D MENTION SUPPLIES COMP TYPE II/UNS TYPE UNCNTRL 52660 URINARY 11-27-2012 [place] FREQUENCY [facility]LEY INTERNAL MEDI 6279 UNSPECIFIED 11-13-2012 [place] [facility] MENOPAUSAL& INC POSTMENOPAU HERBERT DISORDER 94563 PATELLAR 11-13-2012 [facility] TENDINITIS PHYSICIANS GROUP 19008 ACHILLES 11-13-2012 [facility] BURSITIS OR HOME TENDINITIS MEDICAL EQUIPME 64630 OTHER 11-13-2012 [facility] SYNOVITIS PHYSICIANS AND GROUP TENOSYNOVIT IS 8989 UNSPECIFIED 11-13-2012 [facility] DISORDER PHYSICIANS OF MUSCLE GROUP LIGAMENT&FA SCIA 76178 DISORDER OF 11-13-2012 [place] BONE AND MEDICAL CARTILAGE IMAGING ASS UNSPECIFIED V4981 ASYMPTOMATI 11-13-2012 [place] C MEDICAL POSTMENOPAU IMAGING ASS HERBERT STATUS 23833 OSTEOARTHRO 11-07-2012 [place] SIS UNSPEC MEDICAL WHETHER IMAGING ASS GEN/LOC LOWER LEG 4739 UNSPECIFIED 10-17-2012 [place] SINUSITIS BELLFLOWER INTERNAL MEDI 6931 DERMATITIS 09-30-2012 [facility] DUE TO FOOD [facility] TAKEN INTERNALLY V727 DIAGNOSTIC 09-30-2012 [facility] SKIN AND [facility] SENSITIZATI ON TESTS 28797 URGE 08-29-2012 [facility] P 2449 UNSPECIFIED 08-28-2012 [place] [facility] HYPOTHYROID INTERNAL ISM MEDI 20618 OTHER 08-23-2012 [place] SPECIFIED MEDICAL DISORDERS IMAGING ASS OF BLADDER V7612 OTHER 08-23-2012 [place] SCREENING MEDICAL MAMMOGRAM IMAGING ASS 5932 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 [place]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 7533 OTHER 08-09-2012 [place] 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 0419 BACTERIAL 08-08-2012 [place] INFECTION [facility] UNSPECIFIED INTERNAL CCE & UNS MED SITE 02774 DEHYDRATION 08-08-2012 [place] [facility]LL[facility]OWER INTERNAL MED V7231 ROUTINE 08-05-2012 [facility] SONIA 4720 CHRONIC 08-02-2012 [place] RHINITIS [facility] INTERNAL MEDI 17463 MASTODYNIA 08-02-2012 [place] [facility]LLFLOWER INTERNAL MEDI 4011 ESSENTIAL 07-09-2012 [facility] HYPERT[facility]SC N, BENIGN 7964 OTHER 07-05-2012 INPATIENT ABNORMAL CARE, [facility] CLINICAL FINDING 42221 COR 07-01-2012 INPATIENT ATHEROSLERO CARE, [facility] UNSPEC TYPE VESSEL 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/ELSA T 45751 UNSPECIFIED 06-19-2012 [place] VIRAL EMERGENCY INFECTION SERVICES IN CCE & UNS SITE 10938 CONTUSION 06-14-2012 [facility] INC 9233 CONTUSION 06-14-2012 [facility] OF [facility]ER [facility] INC 93765 CONTUSION 06-14-2012 [facility] INC 9599 INJURY 06-14-2012 [place] OTHER AND MEDICAL UNSPECIFIED IMAGING ASS UNSPECIFIED SITE 4659 ACUTE URIS 06-05-2012 [facility] UNSPECIFIED CENTER SITE 8489 UNSPECIFIED 06-05-2012 [facility] SITE [facility] SPRAIN AND CENTER STRAIN V8542 BODY MASS 05-23-2012 [facility] 45.0-49.9 CENTER ADULT 94143 ATROPHIC 05-20-2012 [facility] GASTRITIS SURGIAL WITHOUT ASSOCIATE MENTION OF HEMORRHAGE 77148 NAUSEA WITH 05-20-2012 [facility] VOMITING SURGIAL ASSOCIATE V1279 PERSONAL 05-20-2012 [facility] HISTORY OTH PHYS SURG DISEASES CTR DIGESTIVE DISEASE 4660 ACUTE 05-05-2012 [facility]ERGENCY PHYS 32753 ASTHMA, 05-05-2012 [facility] UNSPECIFIED N EMERGENCY , PHYS UNSPECIFIED STATUS 1129 CANDIDIASIS 05-03-2012 [facility] UNSPECIFIED CENTER SITE 4619 ACUTE 05-03-2012 [facility] SINUSITIS, HEALTHCARE UNSPECIFIED CENTER V0481 NEED 04-17-2012 [facility] PROPHYLACTI HEALTHCARE CENTER VACCINATION &INOCULATIO N FLU 26711 ESOPHAGEAL 04-16-2012 [facility] REFLUX SURGIAL ASSOCIATE 5559 REGIONAL 04-16-2012 [facility] ENTERITIS SURGIAL OF ASSOCIATE UNSPECIFIED SITE 65939 POLYURIA 03-29-2012 [facility] [employer] 60076 UNSPECIFIED 03-18-2012 [facility] VAGINITIS PSC AND VULVOVAGINI TIS 6235 LEUKORRHEA 03-18-2012 [facility] NOT PSC SPECIFIED INFECTIVE 6248 OTH SPEC 03-17-2012 INPATIENT NONINFLAMMA CARE, PLLC TORY DISORDER VULVA&PERIN EUM 92189 LOSS OF 02-20-2012 [place] PSC 86579 UNSPECIFIED 02-14-2012 [place] [facility] ARTHROPATHY INTERNAL MULTIPLE MEDI SITES 56696 ABDOMINAL 02-14-2012 [place] PAIN, VALLEY GENERALIZED INTERNAL MEDI V741 SCREENING 02-14-2012 [place] EXAMINATION VALLEY FOR INTERNAL PULMONARY MEDI TUBERCULOSI S 44749 ABDOMINAL 02-07-2012 [facility] PAIN, LEFT [facility] UPPER INC QUADRANT 19231 VASCULAR 01-06-2012 [facility] ES OF CONJUNCTIVA 90963 SWELLING OR 01-06-2012 [facility] EYE 25616 REDNESS [place] 01-06-2012 [facility] EYE 08035 OTHER 01-06-2012 [place] MEDICAL DISEASES OF SERV NASAL FOUNDATIO CAVITY AND SINUSES 0539 HERPES 12-14-2011 [place] ZOSTER VAL[facility] WITHOUT INTERNAL MENTION OF MED COMPLICATIO N 7891 HEPATOMEGAL 12-07-2011 [facility] Y MEDICAL IMAGING ASS 25842 PAIN IN 11-11-2011 [place] JOINT, VALLEY ANKLE AND INTERNAL FOOT MED 88400 TRANSIENT 11-10-2011 [facility] ARTHROPATHY [facility] ANKLE AND INC FOOT 6826 CELLULITIS 10-19-2011 [place] AND ABSCESS VALLEY OF LEG INTERNAL EXCEPT FOOT MED 4780 HYPERTROPHY 10-12-2011 [facility] OF NASAL [facility] TURBINATES 9164 HIP THI 10-03-2011 [place] LEG&ANK VALLEY INSECT BITE INTERNAL MED NONVENOMOUS W/O INF E9064 BITE OF 10-03-2011 [place] NONVENOMOUS BELLFLOWER ARTHROPOD INTERNAL MED 60680 TRANSIENT 09-25-2011 [facility] VISUAL LOSS [facility] INC 14218 SCOTOMA 09-25-2011 [facility] INVOLVING [facility] CENTRAL INC AREA IN VISUAL FIELD 59260 DISORDERS 09-25-2011 [facility] VISUAL [facility] CORTEX INC ASSOCIATED W/NEOPLASMS 7842 SWELLING 09-25-2011 [place] MASS OR MEDICAL LUMP IN IMAGING ASS HEAD AND NECK 16809 BORDERLINE 09-15-2011 [facility] GLAUC OPEN JAM ANGLE BL FINDINGS LOW RSK 51221 CHRONIC 09-07-2011 [facility] OBSTRUCTIVE [facility] 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EXACERBATIO N 59533 OBSTRUCTIVE 08-30-2011 [place] CHRONIC VALLEY BRONCHITIS INTERNAL WITH MED EXACERBATIO N 4293 CARDIOMEGAL 08-17-2011 [facility] Y MEDICAL IMAGING ASS 38444 CHRONIC 08-09-2011 [facility] TENSION JAM TYPE HEADACHE 89492 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 85063 DIAB 06-25-2011 [facility] W/RENAL [facility] MANIFESTS INC TYPE I [JUV TYPE] UNCNTRL 03780 OBST 06-25-2011 [facility] CHRONIC [facility] BRONCHITIS INC W/ACUTE BRONCHITIS 54004 NAUSEA 06-25-2011 [facility] 7841 THROAT PAIN 06-06-2011 [place] [facility]ICAL SERV FOUNDATIO 03606 OTHER 05-25-2011 [facility] SYMPTOMS [facility] INVOLVING INC HEAD AND NECK 4721 CHRONIC 05-15-2011 E[facility], NOSE PHARYNGITIS AND THROAT SPECIAL 462 ACUTE 05-09-2011 [place] PHARYNGITIS [facility]OWER INTERNAL MED 87210 UNSPECIFIED 04-12-2011 [facility] PHYSICIANS ARTHROPATHY LA ANKLE AND FOOT 6989 UNSPECIFIED 03-28-2011 [facility] PRURITIC [facility] DISORDER INC 6929 CONTACT 03-27-2011 DERMAT[facility]Y DERMATITIS& OTHER CONSULTANTS ECZEMA DUE PSC UNSPEC CAUSE 90939 WHEEZING 03-20-2011 [facility] [facility] 7391 NONALLOPATH 03-08-2011 [facility] GONZALES IC LESION OF CERVICAL REGION NEC 4548 VARICOSE 02-23-2011 [place]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 SERVICES EXTREMITIES W/OTH COMPS 7827 SPONTANEOUS 02-23-2011 [facility] ECCHYMOSES [facility] INC 89725 CONTUSION 02-23-2011 [place] OF THIGH EMERGENCY SERVICES 4439 UNSPECIFIED 02-17-2011 [place] PERIPHERAL MEDICAL VASCULAR IMAGING ASS DISEASE 1101 DERMATOPHYT 02-10-2011 [facility] MAR OSIS OF NAIL 30224 DIAB 02-10-2011 [facility] W/NEURO MANIFESTS TYPE II/UNS NOT UNCNTRL 48240 DIAB 02-10-2011 [facility] W/PERIPH CIRC D/O TYPE II/UNS NOT UNCNTRL 82756 ABDOMINAL 01-18-2011 [place] PAIN RIGHT MEDICAL LOWER IMAGING ASS QUADRANT 27603 HYPERSOMNIA 12-27-2010 [facility] WITH SLEEP DEIDRA APNEA UNSPECIFIED 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 UNSPECIFIED AMBULANCE NOT SERVICE ELSEWHERE CLASSIFIED V1272 PERSONAL 08-25-2010 [facility] HISTORY OF [facility] COLONIC INC POLYPS 31859 BACKGROUND 07-28-2010 [facility] DI[facility]ET[facility] VISION RETINOPATHY 33451 UNSPECIFIED 07-27-2010 [facility] INFECTIVE [facility] OTITIS INC EXTERNA 80449 HYPOXEMIA 06-27-2010 [place] MEDICAL IMAGING ASS 5589 OTH&UNSPEC 10-12-2009 [place] NONINFECTIO EMERGENCY US SERVICES GASTROENTER ASSOCIATES ITIS&COLITI S 03824 PAPANICOLAO 04-16-2009 PATHOLOGY & U SMEAR OF CYTOLOGY VAGINA WITH LAB ASC-US 04843 ABDOMINAL 04-14-2009 [place] PAIN, [facility] EPIGASTRIC INTERNAL MED 90045 ASTHMA 03-19-2009 [place] UNSPECIFIED EMERGENCY WITH SERVICES EXACERBATIO ASSOCIATES N 7306 NONALLOPATH 03-17-2009 [place] IC LESION FAMILY OF LUMBAR CHIROPRACTI REGION NEC C 5999 UNSPECIFIED 03-09-2009 DONNIE DUEÑAS OF URETHRA&URI NARY TRACT 65785 OSTEOARTHRO 03-09-2009 Mamta DUEÑAS INVLV MX CHELSY W SITES BUT NOT SPEC GEN 15594 OTHER 02-18-2009 [place] ABNORMAL EMERGENCY GLUCOSE SERVICES ASSOCIATES V5883 ENCOUNTER 01-25-2009 CARDIOLOGY FOR ASSOCIATES THERAPEUTIC OF DRUG [place] MONITORING 4580 ORTHOSTATIC 01-14-[address] [facility] AMBULANCE HYPOTENSION SERVICE 55989 ASPHYXIA 01-14-2009 [place] MEDICAL IMAGING ASSOCIATES 7336 TIETZES 12-16-2008 [place] DISEASE [facility]OWER INTERNAL MED 70877 STOMATITIS 12-04-2008 [facility], AND CHELSY [place] MUCOSITIS UNSPECIFIED 9778 POISONING 11-26-2008 [place] OTHER SPEC EMERGENCY DRUGS&MEDIC SERVICES INAL ASSOCIATES SUBSTANCES 92267 UNSPECIFIED 10-30-2008 [facility], SITE OF CHELSY Fang ANKLE SPRAIN AND STRAIN E8498 OTHER 10-28-[address] [place] [address] OF IMAGING OCCURRENCE ASSOCIATES E8859 FALL FROM 10-28-2008 [place] OTHER MEDICAL SLIPPING IMAGING TRIPPING OR ASSOCIATES STUMBLING 7873 FLATULENCE 10-21-2008 [place] MEDICAL ERUCTATION SERV AND GAS FOUNDATIO PAIN 24539 VOMITING 09-22-2008 [facility] SERVICES ASSOCIATES 86121 VARIANTS 08-06-2008 [facility] MIGRAINE CHELSY [place] NEC INTRACT MIGRAINE W/[place] 71568 UNS 07-24-2008 [facility] GASTRITIS&G CHELSY [place] ASTRODUODIT IS W/O MENTION HEMORR 37504 ABDOMINAL/P 05-25-2008 [facility] ELVIC [facility] [place] INC MASS/LUMP UNSPEC SITE 69407 NEPHROTIC 04-27-2008 [facility] SYND W/OTH [facility] PATHAL LES INC DZ CLASS ELSW 99805 OTHER SPEC 04-15-2008 [place] MEDICAL GASTRITIS SERV WITHOUT FOUNDATIO MENTION HEMORRHAGE 48586 ERYTHEMA 03-04-2008 [facility] DUE TO BURN [facility] OF INC ABDOMINAL WALL 78918 BLISTERS 03-04-2008 RODRIGUEZ W/EPIDERMAL NATIONAL LOSS [employer]UE [employer]PORATION BURN ABD WALL 41741 DERMATITIS 02-23-2008 [facility] DUE TO [facility] OTHER INC RADIATION 97513 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-2007 [facility] EMERGENCY CARDIOLOGY OSIS 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 SHOP CORONARY ARTERY 61778 OTHER 12-18-2007 [facility]SP[facility]A [facility] RESPIRATORY ABNORMALITI ES 7931 NONSPEC 12-18-2007 [facility] FIND RAD [facility] OTH EXAM HOSP BODY STRUCT LUNG FIELD 45801 NONSPECIFIC 12-18-2007 [facility] ABNORMAL [facility] ELECTROCARD HOSP IOGRAM V142 PERSONAL 12-18-2007 [facility] HISTORY OF [facility] ALLERGY TO HOSP SULFONAMIDE S 2443 OTHER 10-04-2007 [facility] PROF SERV 2810 PERNICIOUS 09-20-2007 [facility] ANEMIA [facility] INTERNAL MED 7244 THORACIC/ANIL 09-17-2007 DANGELO HOFFOSACRBENJAMIN [place]man NEURITIS/RA DICULITIS UNSPEC 7246 DISORDERS 09-17-2007 [facility] OF SACRUM ERVIN [place] 0340 STREPTOCOCC 09-12-2007 [place] AL SORE VALLEY THROAT INTERNAL MED 4149 UNSPECIFIED 08-30-2007 [place] CHRONIC VALLEY ISCHEMIC INTERNAL HEART MED DISEASE 3569 UNSPEC 08-20-2007 [facility] HEREDIT&IDI [facility] OPATHIC INC PERIPHERAL NEUROPATHY 7812 ABNORMALITY 08-20-2007 [place], OF GAIT CHUCK 7820 DISTURBANCE 08-20-2007 [place], OF SKIN CHUCK SENSATION Medications Na ND Rx Da Fi Fi Am Da Di Ph RX Ph St me C No te ll ll ou ys ag ar # ys at rm s nt no ma ic us Or Da si cy ia de te s n re d HY 00 08 10 01 90 30 [...] UN 93 IT 8 /M L AL BE 65 09 10 00 9. 3 RI 80 GA Ac NZ 16 -2 -0 00 TE 16 IN ti ON 20 5- 8- 0 34 EY ve AT 53 20 20 AI AT 61 09 09 D VT E 0 PH CH 10 AR AE 0 M L MG #3 S 93 CA 8 PS UL E 60 09 09 00 20 10 EA [...] TA M BL #3 ET 93 8 ZY 00 08 09 01 30 30 RI 79 GH Ac PA 00 -0 -1 .0 TE 42 AN ti EX 24 2- 0- 00 23 TA ve A 11 20 20 AI 5 53 09 09 D RA MG 0 PH ME AR SH TA M BL #3 ET 93 8 NO 00 09 09 00 10 25 [...] TA 93 BL 8 ET CE 00 08 09 00 20 10 RI 79 MC Ac FD 78 -2 -1 .0 TE 76 KE ti IN 12 8- 0- 00 43 VT ve IR 17 20 20 AI E 66 09 09 D JR 30 0 PH 0 AR WI MG M LL #3 IA CA 93 M PS 8 F UL E AM 65 08 08 00 21 7 [...] G 8 TA BL ET BI 00 02 08 06 30 30 RI 77 AR Ac SO 37 -1 -2 .0 TE 04 NO ti PA 80 2- 7- 00 86 LD ve OL 52 20 20 AI OL 39 09 09 D RI 3 PH CH FU AR AR MA M D RA #3 W TE 93 5 8 MG TA B TR 60 05 08 02 30 30 [...] UN 93 IT 8 /M L AL LA 00 08 08 00 30 30 RI 79 LE Ac NT 08 -0 -1 .0 TE 42 VY ti US 82 3- 3- 00 27 ve 22 20 20 AI LI 10 03 09 09 D ZA 0 3 PH UN AR IT M /M #3 L 93 8 AL GL 00 07 07 03 30 30 RI 74 HU Ac YB 09 -1 -3 .0 TE 18 NT ti UR 39 7- 0- 00 52 ER ve ID 36 20 20 AI E 41 08 09 D NA 5 0 PH NC MG AR Y M C TA #3 BL 93 ET 8 CL 00 07 07 00 90 [...] W MG 93 8 TA BL ET BI 00 02 [...] 93 TA 8 BL ET 00 07 07 00 30 30 RI [...] 93 MG 8 TA BL ET GA 59 07 07 00 90 30 RI 79 AR Ac BA 76 -2 -3 .0 TE 27 NO ti PE 25 1- 0- 00 14 LD ve NT 02 20 20 AI IN 70 09 09 D RI 1 PH CH 30 AR AR 0 M D MG #3 W 93 CA 8 PS UL E VY 66 05 07 02 30 30 [...] L 93 8 AL LE 00 07 07 00 30 30 RI 79 AR Ac VO 37 -1 -3 .0 TE 20 NO ti TH 81 6- 0- 00 96 LD ve YR 80 20 20 AI OX 50 09 09 D RI IN 1 PH CH E AR AR 75 M D #3 W MC 93 G 8 TA BL ET CE 00 07 07 00 20 10 RI 79 AR Ac FD 78 -0 -1 .0 TE 06 NO ti IN 12 4- 6- 00 41 LD ve IR 17 20 20 AI 66 09 09 D RI 30 0 PH CH 0 AR AR MG M D #3 W CA 93 PS 8 UL E TR 00 05 07 01 12 30 RI 78 AR Ac AM 09 -1 -1 0. TE 40 NO ti AD 30 3- 6- 00 03 LD ve OL 05 20 20 0 AI 80 09 09 D RI HC 1 PH CH L AR AR 50 M D #3 W MG 93 8 TA BL ET HY 68 06 07 00 60 20 RI [address] 46 -3 -1 .0 TE 00 NO ti OX 20 0- 6- 00 85 LD ve YZ 36 20 20 AI IN 10 09 09 D RI E 1 PH CH HC AR AR L M D 25 #3 W 93 MG 8 TA BL ET TR 60 05 07 01 30 30 RI 78 AR Ac IA 50 -1 -1 .0 TE 46 NO ti MT 52 8- 6- 00 61 LD ve ER 65 20 20 AI EN 70 09 09 D RI E- 1 PH CH HC AR AR TZ M D #3 W 75 93 -5 8 0 MG TA B 00 06 07 01 30 30 RI 78 No Ac 09 -0 -1 .0 TE 73 t ti 37 4- 6- 00 43 Av ve 24 20 20 AI ai 20 09 09 D la 6 PH bl AR e M #3 93 8 00 06 07 01 90 30 RI 78 No Ac 09 -0 -1 .0 TE 73 t ti 34 4- 6- 00 42 Av ve 35 20 20 AI ai 60 09 09 D la 1 PH bl AR e M #3 93 8 GL 00 07 07 02 30 30 RI 74 HU Ac YB 09 -1 -0 .0 TE 18 NT ti UR 39 7- 2- 00 52 ER ve ID 36 20 20 AI E 41 08 09 D NA 5 0 PH NC MG AR Y M C TA #3 BL 93 ET 8 ME 00 06 07 00 21 6 [...] OF ET CY NT HI AN A BI 00 02 07 04 30 30 RI 77 AR Ac SO 37 -1 -0 .0 TE 04 NO ti PA 80 2- 2- 00 86 LD ve OL 52 20 20 AI OL 39 09 09 D RI 3 PH CH FU AR AR MA M D RA #3 W TE 93 5 8 MG TA B LE 00 07 07 09 30 30 RI 74 AR Ac VO 37 -1 -0 .0 TE 16 NO ti TH 81 6- 2- 00 14 LD ve YR 80 20 20 AI OX 50 08 09 D RI IN 1 PH CH E AR AR 75 M D #3 W MC 93 G 8 TA BL ET NO 00 05 07 01 10 30 RI 78 AR Ac VO 16 -3 -0 .0 TE 62 NO ti LI 91 1- 2- 00 73 LD ve N 83 20 20 AI 70 71 09 09 D RI -3 1 PH CH 0 AR AR 10 M D 0 #3 W UN 93 IT 8 /M L AL VY 66 05 07 01 30 30 [...] D #3 W 93 8 CE 00 06 06 00 [...] e M #3 93 8 00 06 06 00 90 30 RI 78 No Ac 09 -0 -1 .0 TE 73 t ti 34 4- 8- 00 42 Av ve 35 20 20 AI ai 60 09 09 D la 1 PH bl AR e M #3 93 8 GL 00 07 06 01 30 30 RI 74 HU Ac YB 09 -1 -0 .0 TE 18 NT ti UR 39 7- 4- 00 52 ER ve ID 36 20 20 AI E 41 08 09 D NA 5 0 PH NC MG AR Y M C TA #3 BL 93 ET 8 VY 66 05 06 00 30 30 RI 78 AR Ac TO 58 -2 -0 .0 TE 60 NO ti RI 20 8- 4- 00 07 LD ve N 31 20 20 AI 10 33 09 09 D RI -4 1 PH CH 0 AR AR MG M D #3 W TA 93 BL 8 ET AZ 59 05 06 00 6. 5 RI 78 AR Ac IT 76 -2 -0 00 TE 60 NO ti HR 23 8- 4- 0 03 LD ve OM 06 20 20 AI YC 00 09 09 D RI IN 1 PH CH AR AR 25 M D 0 #3 W MG 93 8 TA BL ET BI 00 02 06 03 30 30 RI 77 AR Ac SO 37 -1 -0 .0 TE 04 NO ti PA 80 2- 4- 00 86 LD ve OL 52 20 20 AI OL 39 09 09 D RI 3 PH CH FU AR AR MA M D RA #3 W TE 93 5 8 MG TA B LE 00 07 06 [...] 8 TA BL ET LO 00 06 06 06 30 [...] 93 -5 8 0 MG TA B 00 05 06 00 90 30 RI 78 AR Ac 22 -2 -0 .0 TE 60 NO ti 82 8- 4- 00 06 LD ve 05 20 20 AI 95 09 09 D RI 0 PH CH AR AR M D #3 W 93 8 00 05 06 00 40 10 RI 78 AR Ac 40 -1 -0 .0 TE 46 NO ti 60 8- 4- 00 62 LD ve 35 20 20 AI 90 09 09 D RI 1 PH CH AR AR M D #3 W 93 8 IN 00 05 05 00 90 30 RI 78 AR Ac DO 37 -1 -2 .0 TE 40 NO ti ME 80 3- 1- 00 02 LD ve TH 14 20 20 AI AC 70 09 09 D RI IN 1 PH CH AR AR 50 M D #3 W MG 93 8 CA PS UL E PA 37 05 05 00 28 28 [...] M D #3 W 93 8 TR 00 05 05 00 12 30 RI 78 AR Ac AM 09 -1 -2 0. TE 40 NO ti AD 30 3- 1- 00 03 LD ve OL 05 20 20 0 AI 80 09 09 D RI HC 1 PH CH L AR AR 50 M D #3 W MG 93 8 TA BL ET 00 05 05 00 60 30 [...] M #3 93 8 NO 00 11 05 03 [...] 8 F /M L AL ME 00 04 05 00 2. 1 RI 78 HAYDEN Ac TO 09 -2 -0 00 TE 16 SC ti CL 32 7- 7- 0 52 H ve OP 20 20 20 AI AN RA 30 09 09 D TO VT 5 PH NI DE AR O M 10 #3 93 MG 8 TA BL ET GO 52 04 05 00 40 1 RI 78 HAYDEN Ac LY 26 -2 -0 00 TE 16 SC ti TE 80 2- 7- .0 50 H ve LY 10 20 20 00 AI AN 00 09 09 D TO SO 1 PH NI ANIL AR O TI M ON #3 93 8 GL 00 07 05 00 [...] AR M D #3 W 93 8 LE 00 07 05 07 [...] #3 W 93 TA 8 BL ET DI 00 04 04 00 30 [...] 50 93 0 8 MG TA B BI 00 02 04 02 30 30 RI 77 AR Ac SO 37 -1 -2 .0 TE 04 NO ti PA 80 2- 3- 00 86 LD ve OL 52 20 20 AI OL 39 09 09 D RI 3 PH CH FU AR AR MA M D RA #3 W TE 93 5 8 MG TA B 00 04 04 00 47 12 RI 77 AR Ac 18 -1 -2 3. TE 97 NO ti 20 3- 3- 00 48 LD ve 25 20 20 0 AI 94 09 09 D RI 0 PH CH AR AR M D #3 W 93 8 BA 00 10 04 03 60 [...] TATO AR HN M #3 93 8 TR 50 03 [...] TA 8 BL ET GL 00 07 03 07 30 30 RI 74 AR Ac YB 09 -1 -2 .0 TE 16 NO ti UR 39 6- 6- 00 15 LD ve ID 36 20 20 AI E 41 08 09 D RI 5 0 PH CH MG AR AR M D TA #3 W BL 93 ET 8 BI 00 02 03 01 30 30 [...] #3 W L 93 8 AL 00 01 03 01 60 30 RI 76 AR Ac 59 -3 -2 .0 TE 88 NO ti 10 0- 6- 00 37 LD ve 33 20 20 AI 90 09 09 D RI 1 PH CH AR AR M D #3 W 93 8 DE 00 12 03 02 30 [...] IT 8 F /M L AL 00 10 02 02 60 30 RI [...] TAT[place] AR HN M #3 93 8 GL 00 07 02 06 30 30 RI 74 AR Ac YB 09 -1 -2 .0 TE 16 NO ti UR 39 6- 6- 00 15 LD ve ID 36 20 20 AI E 41 08 09 D RI 5 0 PH CH MG AR AR M D TA #3 W BL 93 ET 8 BI 00 02 02 00 30 30 RI 77 AR Ac SO 37 -1 -2 .0 TE 04 NO ti PA 80 2- 6- 00 86 LD ve OL 52 20 20 AI OL 39 09 09 D RI 3 PH CH FU AR AR MA M D RA #3 W TE 93 5 8 MG TA B 00 01 02 01 40 20 RI 76 AR Ac 59 -1 -2 .0 TE 62 NO ti 13 0- 6- 00 87 LD ve 96 20 20 AI 80 09 09 D RI 1 PH CH AR AR M D #3 W 93 8 LE 00 07 02 06 [...] 50 -3 25 -4 0 CI 00 02 02 00 20 10 RI 77 AR Ac PA 17 -1 -2 .0 TE 04 NO ti OF 25 2- 6- 00 84 LD ve LO 31 20 20 AI XA 26 09 09 D RI CI 0 PH CH N AR AR HC M D L #3 W 50 93 0 8 MG TA B 55 01 02 00 9. 30 RI 76 AR Ac 11 -3 -1 00 TE 87 NO ti 10 0- 2- 0 98 LD ve 73 20 20 AI 70 09 09 D RI 9 PH CH AR AR M D #3 W 93 8 CL 00 12 02 02 60 30 RI 76 AR Ac ON 09 -3 -1 .0 TE 45 NO ti AZ 30 0- 2- 00 30 LD ve EP 83 20 20 AI AM 20 08 09 D RI 1 PH CH 0. AR AR 5 M D MG #3 W 93 TA 8 BL ET TR 50 01 02 00 30 30 RI 76 RI Ac AZ 11 -2 -1 .0 TE 88 TE ti OD 10 9- 2- 00 93 ve ON 43 20 20 AI AI E 30 09 09 D D 50 1 PH PH AR AR MG M MA #3 CY TA 93 BL 8 #3 ET 93 8 00 01 02 00 90 30 RI 76 RI Ac 09 -2 -1 .0 TE 88 TE ti 34 9- 2- 00 89 ve 35 20 20 AI AI 60 09 09 D D 1 PH PH AR AR M MA #3 CY 93 8 #3 93 8 00 01 02 00 30 [...] AR M D #3 W 93 8 DE 00 12 02 01 30 30 RI 76 AR Ac TR 00 -3 -1 .0 TE 46 NO ti OL 95 0- 2- 00 01 LD ve 19 20 20 AI LA 10 08 09 D RI 4 1 PH CH AR AR MG M D #3 W CA 93 PS 8 UL E LO 00 06 02 03 30 30 RI 75 AR Ac RA 78 -1 -1 .0 TE 32 NO ti TA 15 9- 2- 00 00 LD ve DI 07 20 20 AI NE 70 08 09 D RI 1 PH CH 10 AR AR M D MG #3 W 93 TA 8 BL ET GL 00 07 01 05 30 30 RI 74 AR Ac YB 09 -1 -3 .0 TE 16 NO ti UR 39 6- 0- 00 15 LD ve ID 36 20 20 AI E 41 08 09 D RI 5 0 PH CH MG AR AR M D TA #3 W BL 93 ET 8 CL 00 12 01 01 60 30 RI 76 AR Ac ON 3 -3 .0 TE 45 NO ti AZ 30 0- 0- 00 30 LD ve EP 83 20 20 AI AM 20 08 09 D RI 1 PH CH 0. AR AR 5 M D MG #3 W 93 TA 8 BL ET AM 00 01 01 00 30 10 RI 76 AR Ac OX 09 -1 -3 .0 TE 62 NO ti IC 33 0- 0- 00 86 LD ve IL 10 20 20 AI LI 90 09 09 D RI N 5 PH CH 50 AR AR 0 M D MG #3 W 93 CA 8 PS UL E 00 01 01 00 40 20 RI [...] AR M D #3 W 93 8 TI 55 02 01 00 60 30 [...] M IT 8 F /M L AL BA 00 10 01 01 60 30 [...] #3 93 8 00 12 01 00 30 30 RI 76 RI Ac 09 -2 -1 .0 TE 52 TE ti 37 2- 5- 00 20 ve 24 20 20 AI AI 20 08 09 D D 6 PH PH AR AR M MA #3 CY 93 8 #3 93 8 00 12 01 00 [...] 8 BL ET 00 12 01 00 60 30 RI 76 AR Ac 09 -3 -1 .0 TE 45 NO ti 35 0- 5- 00 99 LD ve 50 20 20 AI 20 08 09 D RI 1 PH CH AR AR M D #3 W 93 8 PA 00 09 01 01 [...] W BL 93 ET 8 00 06 01 00 30 30 RI 76 OC Ac 09 -2 -0 .0 TE 24 ON ti 37 5- 1- 00 70 NE ve 15 20 20 AI LL 55 08 09 D 6 PH TATO AR HN M #3 93 8 BI 00 03 01 03 30 30 RI 72 MC Ac SO 37 -0 -0 .0 TE 32 KE ti PA 80 6- 1- 00 28 VT ve OL 52 20 20 AI E OL 39 08 09 D JR 3 PH FU AR WI MA M LL RA #3 IA TE 93 M 5 8 F MG TA B 00 12 12 00 15 15 RI 76 No Ac 09 -0 -1 .0 TE 04 t ti 37 1- 8- 00 07 Av ve 24 20 20 AI ai 20 08 08 D la 6 PH bl AR e M #3 93 8 00 11 12 00 90 30 [...] NI AR O M #3 93 8 NO 00 11 11 00 [...] ti PA 80 6- 0- 00 28 VT ve OL 52 20 20 AI E OL 39 08 08 D JR 3 PH FU AR WI MA M LL RA #3 IA TE 93 M 5 8 F MG TA B LA 00 07 11 02 20 28 RI 74 AR Ac NT 08 -1 -2 .0 TE 16 NO ti US 82 6- 0- 00 17 LD ve 22 20 20 AI 10 03 08 08 D RI 0 3 PH CH UN AR AR IT M D /M #3 W L 93 8 AL GL 00 07 11 03 30 30 RI 74 AR Ac YB 09 -1 -2 .0 TE 16 NO ti UR 39 6- 0- 00 15 LD ve ID 36 20 20 AI E 41 08 08 D RI 5 0 PH CH MG AR AR M D TA #3 W BL 93 ET 8 LE 00 07 11 03 30 30 RI 74 AR Ac VO 37 -1 -2 .0 TE 16 NO ti TH 81 6- 0- 00 14 LD ve YR 80 20 20 AI OX 50 08 08 D RI IN 1 PH CH E AR AR 75 M D #3 W MC 93 G 8 TA BL ET CL 00 06 11 04 60 30 RI 73 AR Ac ON 09 -0 -2 .0 TE 62 NO ti AZ 30 5- 0- 00 67 LD ve EP 83 20 20 AI AM 20 08 08 D RI 1 PH CH 0. AR AR 5 M D MG #3 W 93 TA 8 BL ET LO 00 06 11 01 30 30 [...] #3 W 93 8 LO 00 06 10 00 [...] TA 93 BL 8 ET 00 10 10 00 60 30 [...] AR e M #3 93 8 00 08 10 00 90 30 RI [...] 93 TA 8 BL ET BU 00 09 10 00 60 15 [...] 93 0 8 MG TA B TR 00 09 09 00 40 8 RI 74 AR Ac AM 09 -1 -2 .0 TE 92 NO ti AD 30 1- 6- 00 88 LD ve OL 05 20 20 AI 80 08 08 D RI HC 1 PH CH L AR AR 50 M D #3 W MG 93 8 TA BL ET PA 37 09 09 00 28 28 RI 74 AR Ac IL 00 -1 -2 .0 TE 92 NO ti OS 00 1- 6- 00 85 LD ve EC 45 20 20 AI 50 08 08 D RI OT 2 PH CH C AR AR 20 M D .6 #3 W 93 MG 8 TA BL ET PA 00 09 09 00 40 20 RI 74 AR Ac OC 09 -1 -2 .0 TE 92 NO ti HL 39 1- 6- 00 87 LD ve OR 65 20 20 AI PE 20 08 08 D RI RA 1 PH CH ZI AR AR NE M D #3 W 10 93 8 MG TA B LA 00 07 09 01 20 28 RI 74 AR Ac NT 08 -1 -1 .0 TE 16 NO ti US 82 6- 1- 00 17 LD ve 22 20 20 AI 10 03 08 08 D RI 0 3 PH CH UN AR AR IT M D /M #3 W L 93 8 AL CL 00 06 09 02 60 30 [...] 93 G 8 TA BL ET 00 06 09 01 30 [...] 8 F /M L AL DE 00 07 09 01 30 30 [...] MG 8 TA BL ET NO 00 12 [...] #3 93 8 GL 00 07 08 01 30 30 [...] MC 93 G 8 TA BL ET LE 00 07 08 00 30 30 RI 74 AR Ac VO 37 -1 -0 .0 TE 16 NO ti TH 81 6- 1- 00 14 LD ve YR 80 20 20 AI OX 50 08 08 D RI IN 1 PH CH E AR AR 75 M D #3 W MC 93 G 8 TA BL ET DE 00 07 08 00 30 30 RI 74 AR Ac TR 00 -2 -0 .0 TE 23 NO ti OL 95 2- 1- 00 61 LD ve 19 20 20 AI LA 10 08 08 D RI 4 1 PH CH AR AR MG M D #3 W CA 93 PS 8 UL E LO 00 06 08 01 30 30 RI 73 AR Ac RA 78 -1 -0 .0 TE 79 NO ti TA 15 9- 1- 00 67 LD ve DI 07 20 20 AI NE 70 08 08 D RI 1 PH CH 10 AR AR M D MG #3 W 93 TA 8 BL ET LA 00 07 08 00 20 [...] W BL 93 ET 8 TR 50 07 08 00 30 30 RI 74 No Ac AZ 11 -2 -0 .0 TE 28 t ti OD 10 4- 1- 00 12 Av ve ON 43 20 20 AI ai E 40 08 08 D la 10 1 PH bl 0 AR e MG M #3 TA 93 BL 8 ET HY 00 07 08 00 12 [address] RI [address] 60 -2 -0 0. TE 28 t ti OX 33 4- 1- 00 11 Av ve YZ 96 20 20 0 AI ai IN 92 08 08 D la E 1 PH bl HC AR e L M 50 #3 93 MG 8 TA BL ET 00 07 08 00 90 [...] M #3 93 8 NO 00 12 07 03 10 30 [...] F /M L AL CL 00 06 07 01 60 30 RI 73 AR Ac ON 09 -0 -1 .0 TE 62 NO ti AZ 30 5- 7- 00 67 LD ve EP 83 20 20 AI AM 20 08 08 D RI 1 PH CH 0. AR AR 5 M D MG #3 W 93 TA 8 BL ET AZ 59 06 07 00 [...] #3 W 93 TA 8 BL ET PA 00 [...] TA 93 BL 8 ET 00 06 07 00 30 30 RI [...] 93 TA 8 BL ET 49 04 07 02 18 30 PU [...] 93 ET 8 00 06 07 00 90 30 RI 73 No Ac 09 -2 -0 .0 TE 90 t ti 31 6- 3- 00 74 Av ve 04 20 20 AI ai 30 08 08 D la 1 PH bl AR e M #3 93 8 LE 00 10 06 05 30 30 RI 70 MC Ac VO 37 -2 -1 .0 TE 29 KE ti TH 81 4- 2- 00 59 VT ve YR 80 20 20 AI E OX 50 07 08 D JR IN 1 PH E AR WI 75 M LL #3 IA MC 93 M G 8 F TA BL ET GL 00 03 06 02 30 30 [...] AR M D #3 W 93 8 17 05 06 00 17 16 [...] W CA 93 PS 8 UL E TE 00 05 06 00 20 3 RI 73 CL Ac RC 59 -2 -0 .0 TE 41 AR ti ON 13 - 5- 00 71 KE ve AZ 19 [...] 4 93 8 MG DO SE PK RI 50 05 06 00 30 30 [...] 50 #3 93 MG 8 CA P 49 04 06 01 18 30 PU 18 No Ac 50 -2 -0 0. LM 03 t ti 20 1- 5- 00 O 39 Av ve 67 20 20 0 DO 9 ai 26 08 08 SE la 0 bl PH e AR MA CY 00 05 06 00 90 30 RI [...] #3 93 TA 8 BL ET 00 05 05 00 30 30 WA 69 No Ac 55 -0 -0 .0 L- 70 t ti 50 1- 8- 00 MA 26 Av ve 87 20 20 RT 5 ai 70 08 08 la 2 PH bl AR e MA CY #5 91 FL 00 05 05 00 30 30 WA 69 No Ac UO 09 -0 -0 .0 L- 70 t ti XE 37 1- 8- 00 MA 26 Av ve TI 19 20 20 RT 3 ai NE 85 08 08 la 6 PH bl HC AR e L MA 40 CY MG #5 91 CA PS UL E NO 00 12 05 02 10 30 RI 70 No Ac VO 16 -0 -0 .0 TE 85 t ti LI 91 1- 8- 00 61 Av ve N 83 20 20 AI ai 70 71 07 08 D la -3 1 PH bl 0 AR e 10 M 0 #3 UN 93 IT 8 /M L AL CY 00 03 05 02 1. 7 CL 16 No Ac AN 51 -2 -0 00 IN 78 t ti OC 70 8- 8- 0 IC 79 Av ve OB 03 20 20 ai AL 12 08 08 PH la AM 5 AR bl IN MA e CY 1, 00 0 MC G/ ML BI 00 03 05 01 30 30 RI 72 No Ac SO 37 -0 -0 .0 TE 32 t ti PA 80 6- 8- 00 28 Av ve OL 52 20 20 AI ai OL 39 08 08 D la 3 PH bl FU AR e MA M RA #3 TE 93 5 8 MG TA B RI 50 05 05 00 30 30 [...] MC 93 G 8 TA BL ET 49 04 05 00 18 30 PU 18 No Ac 50 -2 -0 0. LM 03 t ti 20 1- 8- 00 O 39 Av ve 67 20 20 0 DO 9 ai 26 08 08 SE la 0 bl PH e AR MA CY CI 00 04 04 00 20 10 [...] CY 1, 00 0 MC G/ ML HY 00 04 04 00 12 [address] 18 -0 -2 0. TE 77 t ti OX 50 5- 4- 00 30 Av ve YZ 61 20 20 0 AI ai IN 50 08 08 D la E 1 PH bl PA AR e M M 50 #3 93 MG 8 CA P CL 00 04 04 00 60 30 RI 72 No Ac ON 09 -0 -2 .0 TE 76 t ti AZ 30 5- 4- 00 83 Av ve EP 83 20 20 AI ai AM 20 08 08 D la 1 PH bl 0. AR e 5 M MG #3 93 TA 8 BL ET RI 50 04 04 00 30 30 [...] 93 MG 8 CA PS UL E TR 00 03 04 00 8. 2 RI 72 No Ac AM 09 -1 -1 00 TE 50 t ti AD 30 8- 7- 0 40 Av ve OL 05 20 20 AI ai 80 08 08 D la HC 1 PH bl L AR e 50 M #3 MG 93 8 TA BL ET CY 00 03 04 00 1. 7 CL 16 No Ac AN 51 -1 -1 00 IN 67 t ti OC 70 1- 7- 0 IC 31 Av ve OB 03 20 20 ai AL 12 08 08 PH la AM 5 AR bl IN MA e CY 1, 00 0 MC G/ ML CE 00 03 04 00 28 7 [...] 8 MG TA B NO 00 12 04 01 10 30 [...] #3 MG 93 8 TA BL ET FL 00 02 04 00 30 30 [...] 50 #3 93 MG 8 CA P RI 50 03 04 00 30 30 [...] -2 93 5 8 MG TA B HY 00 01 03 00 12 30 [...] MG #3 93 TA 8 BL ET RI 50 01 03 00 30 30 RI 71 No Ac SP 45 -3 -2 .0 TE 81 t ti ER 80 1- 6- 00 36 Av ve DA 30 20 20 AI ai L 00 08 08 D la 1 6 PH bl MG AR e M TA #3 BL 93 ET 8 CL 00 02 03 00 60 30 [...] bl AR e M #3 93 8 GA 59 01 03 00 90 30 RI 71 No Ac BA 76 -1 -2 .0 TE 55 t ti PE 25 7- 5- 00 04 Av ve NT 02 20 20 AI ai IN 70 08 08 D la 1 PH bl 30 AR e 0 M MG #3 93 CA 8 PS UL E FL 00 12 03 01 30 30 RI 71 No Ac UO 09 -1 -2 .0 TE 04 t ti XE 37 3- 5- 00 39 Av ve TI 19 20 20 AI ai NE 85 07 08 D la 6 PH bl HC AR e L M 40 #3 93 MG 8 CA PS UL E SK 60 01 03 [...] M /M #3 L 93 8 AL LE 00 10 03 02 30 30 RI 70 No Ac VO 37 -2 -2 .0 TE 29 t ti TH 81 4- 4- 00 59 Av ve YR 80 20 20 AI ai OX 50 07 08 D la IN 1 PH bl E AR e 75 M #3 MC 93 G 8 TA BL ET Procedures Procedure DOS Code Location Performer Comment PRTBLE [id number] EVELYN RIVAS GASEOUS 9 HOME HOME O2 SYS MEDICAL MEDICAL RENT; EQUIPMENT EQUIPMENT FLWMTR HUMIDFR&M ASK O2 CONC 1 [id number] EVELYN RIVAS [place] 9 HOME HOME 85%/>02 MEDICAL MEDICAL CONC AT EQUIPMENT EQUIPMENT PRSC FLW RATE BLD GLU 03-01-200 A4253 DIABETES DIABETES TEST/REAG 9 [facility] [employer] [facility] HOME BLD GLU MON-50 LANCETS A4259 DIABETES DIABETES PER BOX 9 [facility] PRTBLE E0431 EVELYN RIVAS GASEOUS 9 [...] ASK NORMAL A4256 DIABETES DIABETES LOW AND 9 [facility] CALIBRATO R SOLUTION/ CHIPS LANCETS A4259 DIABETES DIABETES PER BOX 9 CARE [facility] 100 [facility] ESOPHAGOG 4516 [facility] TAY[place]OR ASTRODUOD 8 [facility] ENOSCOPY [facility] WITH CLOS[facility] BIOPSY LEFT 3722 [facility] HEART 8 [facility] CATHETERI ZATION CORONARY 8856 [facility] ARTERIOGR 8 [facility]HY [facility] USING TWO CATHETERS ANGIOCARD 8853 [facility] IOGRAPHY 8 [facility]OS[facility] HEART STRUCTURE S Encounters Encounter Start End Date Code Location Performer Type Date [facility] - [facility] 7 [facility] 7 [facility] - [place] 7 [facility] Lenora 7 [facility] BR[facility]ON - 7 7 [facility] - 7 7 [facility] - 7 7 [facility]PATIEN [facility] BRANDON - 7 7 [facility]PAT[facility] BR[facility]ON - 7 7 [facility] - 7 7 [facility]PAT[facility] BRANDON - 7 7 [facility] - 7 7 [facility]PAT[facility] BRANDON - 7 7 [facility]PATIEN [facility] BRANDON - 7 7 [facility]PATIEN [facility] BRAND[facility] - OTHER 7 7 [facility] - OTHER 7 7 [facility] - 7 7 [facility] - 7 7 [facility]PATIEN [facility] - 7 7 [facility] - 7 7 [facility] - 7 7 [facility]PATIEN [facility] BRANDON - 7 7 [facility] - 7 7 [facility] - OTHER 7 7 [facility] - 7 7 [facility]PATIEN [facility] BRANDON - OTHER 7 7 [facility] - 7 7 [facility]PAT[facility] BRANDON - 7 7 [facility] - 7 7 [facility] - OTHER 7 7 [facility] - 7 7 [facility] - 7 7 [facility] - 6 6 [facility] - 6 6 [facility] - 6 6 [facility] - 6 6 [facility] - 6 6 [facility] - 6 6 [facility] - 6 6 [facility] - 6 6 [facility] - 6 6 [facility] - 6 6 [facility] - 6 6 [facility] - 6 6 [facility] - 6 6 [facility] - 6 6 [facility] BRANDON - 6 6 [facility] - OTHER 6 6 [facility] - OTHER 6 6 [facility] - OTHER 5 5 [facility] - 5 5 [facility]PATIEN [facility] BRANDON - 5 5 [facility]PATIEN [facility] BRANDON - 5 5 [facility]PATIEN [facility] BRANDON - 5 5 [facility]PATIEN [facility] BRANDON - 5 5 [facility]PATIEN [facility] BRANDON - 5 5 [facility]PATIEN [facility] BRANDON - 5 5 [facility]PATI[facility] BRANDON - 5 5 [facility]PATIEN [facility]ERS[facility] - 5 5 Y [facility] - OTHER 5 5 [facility] - 5 5 [facility]PATIEN [facility] BRANDON - 5 5 [facility]PAT[facility] BRANDON - 4 4 [facility] - 4 4 [facility] - 4 4 Y [facility] - 4 4 Y [facility] - 4 4 [facility] BR[facility] - 4 4 [facility] - OTHER [address] [facility] UNIVERS[facility] - 4 4 Y [facility] - OTHER 4 4 [facility] - 4 4 [facility] BR[facility] - 4 4 [facility]PAT[facility] BRANDON - OTHER 4 4 [facility] - 4 4 [facility] BRANDON - 4 4 [facility]PAT[facility] BRANDON - 4 4 [facility] BRANDON - 4 4 [facility] - 3 3 [facility] - 3 3 [facility] BRANDON - 3 3 [facility] BRANDON - 3 3 [facility] BRANDON - 3 3 [facility]PAT[facility] BRANDON - 3 3 [facility] BRANDON - 3 3 [facility]PAT[facility] BRANDON - 3 3 [facility] - 3 3 [facility]PAT[facility] BRANDON - 3 3 [facility]PAT[facility] BRANDON - 3 3 [facility]PAT[facility] BRANDON - 3 3 [facility]PAT[facility] BRANDON - 3 3 [facility]PAT[facility] BRANDON - 3 3 [facility]PAT[facility] BRANDON - 3 3 [facility] - 3 3 [facility] - 3 3 [facility]PAT[facility] BRANDON - 3 3 [facility]PAT[facility] BRANDON - 3 3 [facility] BRANDON - 3 3 [facility] - 3 3 [facility] BR[facility]ON - 2 2 [facility] BR[facility]ON - 2 2 [facility]PATI[facility] CENTRAL - 2 2 [facility] OUTPAT[facility] BRANDON - 2 2 [facility]PATI[facility] BRANDON - 2 2 [facility]PATI[facility] UNIVERSIT - 2 2 [facility] - 2 2 [facility]PAT[facility] BRANDON - 2 2 [facility]PAT[facility] BRANDON - 2 2 [facility]PAT[facility] BR[facility] - 2 2 [facility] - 2 2 [facility] BR[facility]ON - 2 2 [facility] BR[facility] - 2 2 [facility] BR[facility] - 2 2 [facility] BRANDON - 2 2 [facility]PAT[facility] BRANDON - 2 2 [facility] [...] BRANDON - 1 1 [facility] - 1 1 [facility] - 1 1 [facility] BRANDON - 1 1 [facility] [...] BRANDON - 1 1 [facility] BRANDON [facility] 1 1 MEM [...] - 0 0 [facility] BRANDON - 9 9 [facility] BR[facility]ON - 9 9 [facility] - 9 9 [facility] - 9 9 [facility] - 9 9 [facility] - 9 9 [facility] - 9 9 [facility] - 9 9 [facility] - 9 9 [facility] - 9 9 [facility] - 9 [facility] - 9 9 [facility] EMERGENCY 32885 MARLO VIDES, DEPT 9 9 EMERGENCY [facility] VISIT SERVICES ER R HIGH SEVERITY& ASSOCIATE THREAT S [facility] BRANDON - 9 9 [facility] INC OFFICE [id number] LEANA DUEÑAS OUTPATISABRINA 9 9 [facility]Y [facility] T VISIT 15 MINUTES [facility]OSPITAL BR[facility] - 9 9 [facility] T OFFICE [id number] LEANA DUEÑAS OUTPATISABRINA 9 9 [facility] T VISIT 15 MINUTES OFFICE [id number] LEANA DUEÑAS OUTPATIEN 9 9 [facility] T VISIT 15 MINUTES OFFICE [id number] LEANA DUEÑAS OUTPATISABRINA 9 9 [facility]LSY [facility] T VISIT 15 MINUTES OFFICE 27967 NEEL BARNARDPATISABRINA 9 9 [facility] T VISIT SERV 25 [facility] BR[facility] - 8 8 [facility] BRANDON - 8 8 [facility] - 8 8 [facility] BR[facility]ON - 8 8 [facility] - 8 8 [facility]ON - 8 8 [facility] BR[facility]ON - 8 8 [facility] - 8 8 [facility] - 8 8 [facility] - 8 8 [facility]PATI[facility] BRANDON - 8 8 [facility] - 8 8 [facility] - 8 8 [facility] - 8 8 [facility] - 8 8 [facility] 8 [facility]
--- OUTSIDE RECORDS SUMMARY | 2017-05-31 02:02 | External Medical Summary Rpt | CCD ---
Author Author , LEOBARDO Gloria LEOBARDO Address Unknown Phone .iMedicare Care Team Providers Care Vice President Of Communications Name Role Phone [facility], Unavailable Unavailable [facility] Unavailable Unavailable [place], [facility] [place] CHELSY DUEÑAS, Unavailable Unavailable [facility] Unavailable Unavailable SERVICES, [facility] Un[facility] Unavailable [facility]available Unavailable CTR, [facility] LAURIE WELLS, Unavailable Unavailable LAURIE WELLS ANTONIO, Unavailable Unavailable [place] [facility] Unavailable Unavailable SERVICE, [facility] Unavailable Unavailable SERVICE, [facility] José LYONS MD Unavailable Unavailable [facility], José LYONS MD [facility], Unavailable Unavailable [facility] Unavailable Unavailable [facility], [facility], Unavailable Unavailable [facility], Un[facility]available [facility] Unavailable Unavailable ASSOCIATE, [facility] Unavailable Unavailable [place], [facility] SUMMERS, KHURRAM A, Unavailable Unavailable [facility], KHURRAM A [facility] Unavailable Unavailable [facility] HOMERFREDO ANDRADE, Unavailable Unavailable HOMER, FREDO [facility], Unavailable Unavailable [facility] Unavailable Unavailable [facility] EQUIPMENT, [facility] Unavailable Unavailable [facility], [facility]available Unavailable [facility], [facility] Unavailable Unavailable LLC, [facility] ARVIZU DEIDRA, Unavailable Unavailable ARVIZU DEIDRA [facility] Unavailable Unavailable SPECIAL, [facility] Unavailable Unavailable [place], [facility], [facility] Unavailable Unavailable JOSEPH KESSLER, Unavailable Unavailable JOSEPH KESSLER ANDREW R, Unavailable Unavailable GISELLE SHEA HARRIES Unavailable Unavailable [facility] Unavailable Unavailable INC, [facility] Unavailable Unavailable HOSPITAL P, [facility], Unavailable Unavailable [facility], Unavailable Unavailable [facility] MARIANA GALEANA, Unavailable Unavailable MARIANA GALEANA [facility] Unavailable Unavailable [place], [facility], Unavailable Unavailable [facility] KAVYA OWENS Unavailable Unavailable ERVIN WICK, Unavailable Unavailable ERVIN HOFF [facility] Un[facility] Unavailable [facility], [facility] Un[facility] Unavailable [facility], [facility] Un[facility] Un[facility], [facility] Un[facility], [facility] Unavailable Unavailable HOLDING, [facility] Unavailable Un[facility] Un[facility] Unavailable [facility], [facility] Unavailable Unavailable [facility], [facility] Unavailable Unavailable [facility], [facility] M E D SUPPLIES, M E D Unavailable Unavailable SUPPLIES [facility] Unavailable Unavailable SERVICES, [facility] MARNI LUIS ALFREDO, Unavailable Unavailable MARNI LUIS ALFREDO LANDRUM, Unavailable Unavailable KANNAN CAIN JR Unavailable Unavailable F, KANNAN FAJARDO JR, EMMETT P, Unavailable Unavailable RACHEL MÉNDEZ FRANK C, Unavailable Unavailable LILIYA ESCOBAR JOHN, Unavailable Unavailable [facility], [facility], [facility] Unavailable Unavailable LABS, LLC [facility], Unavailable Unavailable PLLC, [facility] Unavailable Unavailable LAB, PATHOLOGY [...] Unavailable EMERGENCY PH[facility], [facility] Unavailable Unavailable SOLUTIONS IN, [facility] Unavailable Unavailable HOSPITALS, [facility], [facility]available Unavailable [facility] Unavailable [facility]available [address][id number], [facility] [facility] Unavailable Unavailable OF 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 I5030 UNSPECIFIED 03-20-2017 [facility] DIASTOLIC [facility] CONGESTIVE INC HEART FAILURE R0600 DYSPNEA 03-20-2017 [facility] UNSPECIFIED [facility] INC R079 CHEST PAIN 03-20-2017 [facility] UNSPECIFIED [facility] INC R609 EDEMA 03-20-2017 [facility] UNSPECIFIED [facility] INC M545 LOW BACK 03-19-2017 [facility] PAIN [facility] INC [id number] PAIN IN 03-19-2017 [facility] RIGHT LEG MEM [...] [facility] PRIMARY [facility] HYPERTENSIO INC N [id number] CONTUSION 01-09-2017 [facility] OTHER PART [facility] OF HEAD INC INITIAL ENCOUNTER [id number] SPRAIN 01-09-2017 [facility] UNSPECIFIED [facility] SITE RT INC KNEE INITIAL ENCNTR Z794 RETIREMENT 01-09-2017 [facility] CURRENT USE [facility] OF INSULIN INC J93000 OTHER LONG 01-09-2017 [facility] TERM [facility] CURRENT INC DRUG THERAPY J449 CHRONIC 01-03-2017 [facility] OBSTRUCTIVE [facility] PULMONARY INC DISEASE UNS R55 SYNCOPE AND 01-03-2017 [facility] COLLAPSE [facility] INC Q95715 PERSONAL 01-03-2017 [facility] HISTORY OF [facility] NICOTINE INC DEPENDENCE N3000 ACUTE 12-23-2016 [facility] CYSTITIS [facility] WITHOUT INC HEMATURIA F27908 PAIN IN 11-06-2016 [facility] LEFT LEG [facility] INC J3089 OTHER 10-31-2016 [facility] [place] J310 CHRONIC 10-31-2016 [facility] RHINITIS [facility] [place] J4550 SEVERE 10-31-2016 [facility] PERSISTENT [facility] [place] UNCOMPLICAT ED K89371 ALLERGY TO 10-31-2016 ALLERGY OTHER FOODS [facility] [place] 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 ATHY LUMB RGN M549 DORSALGIA 10-23-2016 [facility] UNSPECIFIED [facility] INC R300 DYSURIA 10-19-2016 [facility] INC E039 HYPOTHYROID 10-05-2016 [facility] ISM [facility] UNSPECIFIED INC M7702 MEDIAL 09-19-2016 [facility] EPICONDYLIT [facility] IS LEFT INC ELBOW J040 ACUTE 2016 [facility] LARYNGITIS PHYSICIAN GROUP S23173 SPONDYLOSIS 09-15-2016 [facility] MYELOPATH/R HOSPITALS ADICULOPATH Y THOR RGN K54474 SPONDYLOSIS 09-15-2016 [facility] MYELOPATH/R HOSPITALS ADICULPATHY LS RGN M546 PAIN IN 09-15-2016 [facility] J069 ACUTE UPPER 09-12-2016 [facility] RESPIRATORY INC INFECTION UNSPECIFIED [id number] PAIN IN 09-08-2016 [facility] LEFT [facility] PHYSICIANS GROUP J40 BRONCHITIS 09-06-2016 [facility] NOT N EMERGENCY SPECIFIED PHYS ACUTE OR CHRONIC R05 COUGH 09-06-2016 [facility] M542 CERVICALGIA 08-29-2016 [facility] R51 HEADACHE 08-29-2016 [facility] S9546HL CONTUSION 08-29-2016 [facility] OF SCALP PHYSICIANS, INITIAL PLLC ENCOUNTER O757CUX UNSPECIFIED 08-29-2016 [place] INJURY OF MEDICAL NECK IMAGING ASS INITIAL ENCOUNTER I22PJFM UNSPECIFIED 08-29-2016 [facility] INITIAL SERVICE ENCOUNTER L03224 PRIMARY 08-22-2016 [place] OSTEOARTHRI MEDICAL TIS LEFT IMAGING ASS ELBOW K8689 OTHER 08-15-2016 [facility] SPECIFIED PHYSICIANS, DISEASES OF PLLC PANCREAS R1084 GENERALIZED 08-15-2016 [facility] ABDOMINAL PHYSICIANS, PAIN PLLC R8299 OTHER 08-07-2016 [facility] ABNORMAL [facility] FINDINGS IN INC URINE A41804 MIGRAINE 08-04-2016 [facility] UNS PHYSICIANS, INTRACTABLE PLLC W/STATUS MIGRAINOSUS M07864 UNSPECIFIED 08-04-2016 [facility] WITH ACUTE LLC EXACERBATIO N S4888UR CONTUSION 08-04-2016 [facility] EYEBALL & PHYSICIANS, ORBITAL PLLC TISSUES RT EYE INIT V62740 ELEVATED 07-26-2016 [facility] BLOOD [facility] CELL COUNT HOSPITAL P UNSPECIFIED K529 NONINFECTIV 07-14-2016 [facility] E [facility] GASTROENTER INC ITIS & COLITIS UNS I509 HEART 07-12-2016 [facility] UNSPECIFIED HOSPITAL P R0789 OTHER CHEST 07-12-2016 [facility] PAIN PHYSICIANS, PLLC I272 OTHER 07-05-2016 [facility] SECONDARY [facility] PULMONARY INC HYPERTENSIO N I959 HYPOTENSION 07-05-2016 [facility] UNSPECIFIED INC E109 TYPE 1 07-04-2016 [facility] DIABETES [facility]OSPITAL P WITHOUT COMPLICATIO NS I9589 OTHER 07-04-2016 [facility] HYPOTENSION PHYSICIANS, PLLC R400 SOMNOLENCE 07-04-2016 [facility], PLLC G8929 OTHER 06-29-2016 [facility] CHRONIC [facility] PAIN INC M4807 SPINAL 06-29-2016 [facility] STENOSIS [facility] LUMBOSACRAL INC REGION R042 HEMOPTYSIS 06-28-2016 [facility] R918 OTHER 06-28-2016 [facility] NONSPECIFIC [facility] ABNORMAL INC FINDING OF LUNG FIELD Y06272 TYPE 2 06-21-2016 [facility] DIABETES [facility] MELLITUS INC W/HYPOGLYCE NIKOLAY W/O COMA M5432 SCIATICA 06-13-2016 [facility] LEFT SIDE PHYSICIANS, [facility] M5442 LUMBAGO 06-13-2016 [facility] WITH PHYSICIANS, SCIATICA PLL LEFT SIDE I25095 TYPE 2 06-12-2016 [facility] MELLITUS MEDICAL WITH FOOT EQUIPME ULCER M86093 TYPE 2 06-12-2016 [facility] MELLITUS MEDICAL WITH OTHER EQUIPME SKIN ULCER G894 CHRONIC 06-12-2016 [facility] PAIN PHYSICIANS SYNDROME GROUP M4307 SPONDYLOLYS 06-12-2016 [facility] IS PHYSICIANS LUMBOSACRAL GROUP REGION R50003 PERSONAL 06-12-2016 [facility] HISTORY OF PHYSICIANS OTHER GROUP SPECIFIED CONDITIONS E876 HYPOKALEMIA 06-06-2016 [facility], [facility] K5900 CONSTIPATIO 06-06-2016 [place] N MEDICAL UNSPECIFIED IMAGING ASS N200 CALCULUS OF 06-06-2016 [facility] N390 URINARY 06-06-2016 [facility] TRACT PHYSICIANS, INFECTION [facility] SITE NOT SPECIFIED R531 WEAKNESS 06-06-2016 [facility] R634 ABNORMAL 06-06-2016 [facility] WEIGHT LOSS [facility] J050 ACUTE 05-18-2016 [facility] OBSTRUCTIVE PHYSICIANS, LARYNGITIS [facility] CROUP L299 PRURITUS 05-18-2016 [facility] UNSPECIFIED PHYSICIANS, [facility] M5127 OTH 05-17-2016 [place] INTERVERTEB MEDICAL RAL DISC IMAGING ASS DISPLACEMEN T LS REGION M5136 OTH 05-17-2016 [place] 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 N5593RX CONTUSION 05-13-2016 [facility] OF RIGHT PHYSICIANS, KNEE [facility] INITIAL ENCOUNTER U79768 MIGRAINE 05-09-2016 [facility] W/O AURA PHYSICIANS, NOT INTRACT PLL W/O STAT MIGRAIN B351 TINEA 04-13-2016 [place] UNGUIUM FOOT & ANKLE CE I7090 UNSPECIFIED 04-13-2016 [place] FOOT & ATHEROSCLER ANKLE CE OSIS O51429 PAIN IN 04-13-2016 [place] UNSPECIFIED FOOT & LIMB ANKLE CE R0781 PLEURODYNIA 03-31-2016 [facility] R52 PAIN 03-31-2016 [facility] UNSPECIFIED AMBULANCE SERVICE E41537P CONTUSION 03-31-2016 [facility] UNS FRONT PHYSICIANS, WALL THORAX PLLC INITIAL ENCNTR N373YCH UNSPECIFIED 03-31-2016 [place] INJURY OF MEDICAL THORAX IMAGING ASS INITIAL ENCOUNTER L0291 CUTANEOUS 03-20-2016 [facility] ABSCESS [facility] UNSPECIFIED INC X53902R CONTUSION 03-17-2016 [facility] LEFT FRONT PHYSICIANS, WALL THORAX PLLC INITIAL ENC M03608F CONTUSION 03-17-2016 [facility] OF LEFT PHYSICIANS, SHOULDER PLLC INITIAL ENCOUNTER B54458 NON-PRSS 03-14-2016 [facility] CHRN ULCER PHYSICIANS SKIN OTH GROUP SITES UNS SEVERITY W68110 CELLULITIS 03-09-2016 [facility] OF [facility] ABDOMINAL INC WALL G4996QM OTHER 03-09-2016 [facility] COMPLICATIO PHYSICIANS, NS PROC NEC PLLC INITIAL ENCOUNTER E049 NONTOXIC 02-17-2016 [facility] GOITER PHYSICIANS UNSPECIFIED GROUP R1310 DYSPHAGIA 02-17-2016 [facility] UNSPECIFIED PHYSICIANS GROUP X16770I UNS FOREIGN 02-17-2016 [facility] BODY PHYSICIANS LARYNX CAUS GROUP OTH INJURY INIT ENC W459AZN STRAIN 02-10-2016 [facility] MUSCLE FASC [facility] & TENDON INC NECK LEVL INIT ENC Y0241ZB CONTUSION 02-10-2016 [facility] OF LEFT HIP [facility]OS[facility] INITIAL INC ENCOUNTER I96964Y UNSPECIFIED 02-10-2016 [place] INJURY MEDICAL LEFT HIP IMAGING ASS INITIAL ENCOUNTER G71523 UNSPECIFIED 02-07-2016 [facility] KER[facility] LEFT EYE R221 LOCALIZED 02-05-2016 [facility] SWELLING [facility] MASS AND INC LUMP NECK R4702 DYSPHASIA 02-03-2016 [facility] INC R5383 OTHER 06-15-2015 [facility] FATIGUE [facility] INC S12788C CONTUSION 06-03-2015 [facility] RT FRONT PHYSICIANS, WALL THORAX PLLC INITIAL ENCOUNTER L40679 PAIN IN 05-29-2015 [place] RIGHT WRIST MEDICAL IMAGING ASS O98989 PAIN IN 05-29-2015 [place] UNSPECIFIED MEDICAL HIP IMAGING ASS U1189XE CONTUSION 05-29-2015 [place] OF NOSE MEDICAL INITIAL IMAGING ASS ENCOUNTER S16829U UNSPECIFIED 05-29-2015 [facility] SPRAIN [facility] RIGHT WRIST INC INITIAL ENCOUNTER R2369WX SPRAIN 05-29-2015 [facility] UNSPECIFIED [facility] SITE LT INC KNEE INITIAL ENCNTR Z043 ENCOUNTER 05-29-2015 [place] EXAM & MEDICAL OBSERVATION IMAGING ASS FOLLOW OTH ACCIDENT E1121 TYPE 2 05-25-2015 [place] DIABETES [facility] MELLITUS HOSPITAL P W/DIABETIC NEPHROPATHY I96 GANGRENE 05-25-2015 [facility] NOT ANESTH OF ELSEWHERE THE BLUE CLASSIFIED Y61859 NON-PRSS 05-25-2015 [facility] & OTH PART RT DUBILIER FT W/UNS SEVERITY V24632 OTHER ACUTE 05-25-2015 [facility] OSTEOMYELIT HOSPITAL P IS RIGHT ANKLE AND FOOT Z9111 PATIENTS 05-25-2015 [place] NONCOMPLIAN [facility] CE WITH HOSPITAL P DIETARY REGIMEN Z61334 NON-PRSS 05-24-2015 [facility] MEDICAL OTH PART LT IMAGING ASS FOOT UNS SEVERITY M2011 HALLUX 05-24-2015 [facility] VALGUS PHYSICIANS, ACQUIRED PLLC RIGHT FOOT 7231 CERVICALGIA 03-06-2015 [facility] 7802 SYNCOPE AND 03-06-2015 [place] COLLAPSE [facility]ICAL [facility] 7840 HEADACHE 03-06-2015 [facility] 80652 INJURY OF 03-06-2015 [place] FACE AND MEDICAL NECK OTHER IMAGING ASS AND UNSPECIFIED 12645 ACUTE PAIN 03-05-2015 [facility] DUE TO AMBULANCE TRAUMA SERVICE 26023 PAIN IN 03-05-2015 [place] JOINT MEDICAL PELVIC IMAGING ASS REGION AND THIGH 8470 NECK SPRAIN 03-05-2015 [facility] AND STRAIN PHYSICIANS, PLLC 920 CONTUSION 03-05-2015 [facility] OF FACE PHYSICIANS, SCALP AND PLLC NECK EXCEPT EYE E8889 UNSPECIFIED 03-05-2015 [facility] 7881 DYSURIA 02-24-2015 [place] [address] DIAB W/O 02-09-2015 [facility] COMP TYPE I HOME [JUV] NOT MEDICAL STATED EQUIPME UNCNTRL 06660 OBSTRUCTIVE 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 EQUIPME 89263 EXTRINSIC 02-09-2015 [facility]MA, HOME UNSPECIFIED MEDICAL EQUIPME 27783 DIAB W/OTH 02-03-2015 [facility] MANIFESTS [facility] TYPE I INC [JUV] NOT UNCNTRL 4019 UNSPECIFIED 02-03-2015 [facility] ESSENTIAL [facility] HYPERTENSIO INC N 4139 OTHER AND 02-03-2015 [facility] UNSPECIFIED [facility] ANGINA INC PECTORIS 496 CHRONIC 02-03-2015 [facility] AIRWAY [facility] OBSTRUCTION INC NEC 21639 OTHER 02-03-2015 [facility] MALAISE AND [facility] FATIGUE INC V5867 LONG-TERM 02-03-2015 [facility] USE OF [facility] INSULIN INC 7906 OTHER 02-01-2015 [facility] ABNORMAL [facility] BLOOD INC CHEMISTRY V7389 SPECIAL 02-01-2015 [facility] SCREENING [facility] EXAMINATION INC OTH SPEC VIRAL DZ 7295 PAIN IN 01-06-2015 [place] SOFT MEDICAL TISSUES OF IMAGING ASS LIMB 86316 SWELLING OF 01-06-2015 [place] LIMB MEDICAL IMAGING ASS 7823 EDEMA 01-06-2015 [facility] INC 05229 CHEST PAIN 12-31-2014 [place] UNSPECIFIED MEDICAL IMAGING ASS 48087 PAIN IN 12-17-2014 [facility], MEDICAL SHOULDER IMAGING ASS REGION 13520 PAIN IN 12-17-2014 [facility], MEDICAL FOREARM IMAGING ASS 39889 PAIN IN 12-17-2014 [place] JOINT, MEDICAL LOWER LEG IMAGING ASS 8408 SPRAIN&STRA 12-17-2014 [facility] IN OTH SPEC [facility] H[facility] SITES INC SHOULDER&UP PER ARM 8409 SPRAIN&STRA 12-17-2014 [facility] IN UNSPEC PHYSICIANS, SITE PLLC SHOULDER&UP PER ARM 98206 SPRAIN AND 12-17-2014 [facility] STRAIN OF [facility] UNSPECIFIED INC SITE OF WRIST 8449 SPRAIN&STRA 12-17-2014 [facility] IN OF [facility] UNSPECIFIED INC SITE OF KNEE&LEG 9221 CONTUSION 12-17-2014 [facility] OF CHEST MEM HOS[facility] WALL INC 40995 OTHER 12-17-2014 [facility] OF MEDICAL CHEST WALL IMAGING ASS 31352 OTHER 12-17-2014 [facility] INJURY OF MEDICAL OTHER SITES IMAGING ASS OF TRUNK 9592 INJURY 12-17-[facility] OTHER&UNSPE MEDICAL CIFIED IMAGING ASS SHOULDER&UP PER ARM 9593 INJURY 12-17-[facility] OTHER&UNSPE MEDICAL CIFIED IMAGING ASS ELBOW FOREARM&WRI ST 9597 INJURY 12-17-2014 [facility] OTHER&UNSPE MEDICAL CIFIED KNEE IMAGING ASS LEG ANKLE&FOOT V714 OBSERVATION 12-17-2014Y FOLLOWING MEDICAL OTHER IMAGING ASS ACCIDENT 5718 OTHER 12-16-2014 [place] [facility] CHRONIC SERV NONALCOHOLI FOUNDATION C LIVER DISEASE 29071 ABDOMINAL 12-16-2014 [place] [facility] PAIN RIGHT SERV U[facility]ER [facility] QUADRANT 7892 SPLENOMEGAL 12-16-2014 [place] [facility] Y [facility] 2512 HYPOGLYCEMI 11-25-2014 [facility] A, [facility] HOS[facility] UNSPECIFIED INC 88527 SHORTNESS 11-11-2014 [place] [facility] OF BREATH SERV [facility] 80432 DIAB 10-23-2014 [facility] W/NEURO [facility] MANIFESTS INC TYPE II/UNS TYPE UNCNTRL 05584 UNSPECIFIED 10-23-2014 [facility] CELLULITIS [facility] AND INC ABSCESS OF TOE 61588 ULCER OF 10-23-2014 [facility] OTHER PART PATHOLOGY OF FOOT SERVICES 7224 DEGENERATIO 10-17-2014 [facility] OF MEDICAL CERVICAL IMAGING ASS INTERVERTEB RAL DISC 47357 DIAB W/O 09-27-2014 [facility] COMP TYPE [facility] II/UNS NOT INC STATED UNCNTRL 2724 OTHER AND 09-27-2014 [facility] UNSPECIFIED [facility] INC HYPERLIPIDE NIKOLAY 83066 OBESITY, 09-27-2014 [place] UNSPECIFIED [facility]VIN INTERNAL MED 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 INC UNSPECIFIED 69656 ALTERED 09-27-2014 [facility] MENTAL [facility] STATUS INTERNAL MED 7862 COUGH 09-27-2014 [facility] 88278 POISONING 09-27-2014 [place] BY OPIUM , [facility] UNSPECIFIED INTERNAL MED E8502 ACCIDENTAL 09-27-2014 [facility] P ATED NARCOTICS 5180 PULMONARY 09-26-2014 [place] COLLAPSE [facility]ICAL IM[facility]ING ASS 26069 FEVER 09-26-2014 [place] UNSPECIFIED MEDICAL IMAGING ASS 7869 OTH 09-26-2014 [place] SYMPTOMS MEDICAL INVOLVING IMAGING ASS RESPIRATORY SYSTEM&CHES T V053 NEED PROPH 09-07-2014 [place] [facility] VACC&INOCUL SERV AT AGAINST FOUNDATION VIRAL HEP 16768 CONTUSION 09-03-2014 [facility] P 05790 CONTUSION 09-03-2014 [facility] HIP [facility] P 82889 CLOSED 05-01-2014 [facility] FRACTURE PHYSICIANS METACARPAL GROUP BONE SITE UNSPECIFIED E8888 OTHER FALL 04-28-2014 [facility] V1582 PERS HX 04-28-2014 [facility] TOBACCO USE [facility] PRESENTING INC [facility] 2104 BENIGN 04-27-2014 EAR, NOSE NEOPLASM AND THROAT OTHER&UNSPE SPECIAL CIFIED PARTS MOUTH 26997 DYSFUNCTION 04-27-2014 EAR, NOSE OF AND THROAT EUSTACHIAN SPECIAL TUBE 36283 OTOGENIC 04-27-2014 EAR, NOSE PAIN AND THROAT SPECIAL 43636 DYSPHAGIA 04-27-2014 EAR, NOSE UNSPECIFIED AND THROAT SPECIAL 4770 ALLERGIC 04-13-2014 [facility] RH[facility]IS LUIS ALFREDO DUE TO POLLEN 4778 ALLERGIC 04-13-2014 [facility]FR[facility] DUE TO OTHER ALLERGEN 4772 ALLERGIC 04-06-2014 [facility] RHINITIS LUIS ALFREDO DUE TO ANIMAL HAIR AND DANDER 15017 CHRONIC 04-06-2014 [facility] OBSTRUCTIVE LUIS ALFREDO ASTHMA UNSPECIFIED 82317 SENSORINEUR 04-03-2014 EAR, NOSE AL HEARING AND THROAT LOSS SPECIAL BILATERAL 2728 OTHER 03-19-2014 [facility] 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 17652 DIAB 03-16-2014 [place] W/OPHTH [facility]ISION [facility]IF[facility] CENTER TYPE II/UNS NOT UNCNTRL 5939 UNSPECIFIED 03-03-2014 [facility] DISORDER N EMERGENCY OF KIDNEY PHYS AND URETER 5990 URINARY 03-03-2014 [facility] TRACT N EMERGENCY INFECTION PHYS SITE NOT SPECIFIED 33500 OTHER 01-28-2014 [facility] DISORDER OF STOMACH AND DUODENUM 5715 CIRRHOSIS 01-28-2014 [facility] WITHOUT MENTION OF ALCOHOL 5723 PORTAL 01-28-2014 [facility] N V7651 SPECIAL 01-28-2014 [facility] NE[facility]LAS[facility] COLON 2168 [...] GOITER, 12-23-2013 [facility] UNSPECIFIED [facility] 40201 ABDOMINAL 12-15-2013 [facility] OTHER [facility] SPECIFIED INC SITE 42827 OTHER ACUTE 12-01-2013 [facility] 13739 ANEURYSM OF 12-01-2013 [place] [facility] ARTERY [facility] 5778 OTHER 12-01-2013 [place] [facility] DISEASE OF [facility] PANCREAS 81539 DIARRHEA 12-01-2013 [facility] 76585 ABDOMINAL 12-01-2013 [place] [facility] UNSPECIFIED [facility] SITE 7948 NONSPECIFIC 12-01-2013 [place] [facility] ABNORM[facility] RESULTS [facility] LIVR FUNCTION STUDY V762 SCREENING 11-19-2013 [facility] MALIGNANT NEOPLASM OF THE CERVIX 46890 OTHER CHEST 11-08-2013 [facility] 81407 OTHER 11-08-2013 [place] NONSPECIFIC MEDICAL ABNORMAL IMAGING ASS FINDING OF LUNG FIELD 7242 LUMBAGO 09-23-2013 [facility] V571 OTHER 09-23-2013 [facility] THERAPY [facility] V5869 LONG-TERM 09-17-2013 [facility] (CURRENT) [facility] USE OF INC OTHER MEDICATIONS 7226 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 UNSPEC 27801 DEGEN 09-11-2013 [place] [facility] LUMBAR/LUMB SERV OSACRAL F[facility]AT[facility] INTERVERTEB RAL DISC 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 E URGE AND [facility] P STRESS 32344 MORBID 08-25-2013 [facility]ITY [facility] P 4409 GENERALIZED 08-25-2013 [facility] [facility] MEDICAL UNSPECIFIED IMAGING ASS ATHEROSCLER OSIS 4471 STRICTURE 08-25-2013 [place] OF [facility] 4830 PNEUMONIA 08-25-2013 [facility]UE TO [facility] P PNEUMONIAE 51868 SCOLIOSIS , 08-25-2013 [place] IDIOPATHIC MEDICAL IMAGING ASS V8541 BODY MASS 08-25-2013 [facility] 40.0-44.9 HOSPITAL P ADULT 4829 UNSPECIFIED 08-23-2013 [place] BACTERIAL EMERGENCY PNEUMONIA SERVICES 72313 OTHER 08-23-2013 [place] DISEASES OF MEDICAL LUNG NOT IMAGING ASS ELSEWHERE CLASSIFIED 41050 DEGEN 08-23-2013 [place] THORACIC/TH MEDICAL ORACOLUMBAR IMAGING ASS INTERVERTEB RAL DISC 3540 CARPAL 08-20-2013 [facility] MITCH 7238 OTHER 08-20-2013 [facility]ECT[facility] MITCH CERVICAL REGION 18660 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-2013 [place]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 41507 SPINAL STEN 08-18-2013 [place] LUMB REG MEDICAL W/O IMAGING ASS NEUROGENIC CLAUDICATIO N 8404 ROTATOR 07-26-2013 [facility] 5989 UNSPECIFIED 05-06-2013 [facility] [facility] 50730 UNSPECIFIED 04-29-2013 [place] URETHRITIS [facility] P 5952 OTHER 04-08-[address] [place] [address] [facility] CYSTITIS [facility] P 20221 DIAB W/O 04-03-2013 [facility] MENTION [facility] COMP TYPE I INC [JUV TYPE] UNCNTRL 79171 UNSPECIFIED 04-03-2013 [place] EM[facility]GENCY CONSTIPATIO SERVICES N 21371 OTHER 03-31-2013 [facility] CHRONIC [facility] ALLERGIC CONJUNCTIVI TIS 92309 NUCLEAR 03-18-2013 [place] [facility] 3669 UNSPECIFIED 03-18-2013 [facility] CATARACT [facility] INC V148 PERSONAL 03-18-2013 [facility] HISTORY [facility] ALLERGY OTH INC SPEC MEDICINAL AGTS 2689 UNSPECIFIED 02-25-2013 [facility] VITAMIN D [facility] DEFICIENCY 4919 UNSPECIFIED 02-04-2013 [facility] CHRONIC [facility] BRONCHITIS 96029 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 [facility] 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[facility] STATUS ASTHMATICUS 57753 MIGRAINE 01-30-2013 [place] UNSP W/O VALLEY INTRACT W/O INTERNAL STATUS MED MIGRAINOSUS 47397 ABDOMINAL 01-23-2013 [facility]IN, LEFT PHYSICIANS LOWER LA QUADRANT 460 ACUTE 01-22-2013 [place] NASOPHARYNG VALLEY ITIS INTERNAL MEDI 39962 VISUAL 01-14-2013 [place] [facility] 3688 OTHER 01-14-2013 [place] SPECIFIED EYE VISUAL INSTITUTE DISTURBANCE S 490 BRONCHITIS 12-28-2012 [facility] NOT VALLEY SPECIFIED INTERNAL ACUTE OR MED CHRONIC 5110 PLEURISY 12-20-2012 [facility] WITHOUT [facility] MENTION INC EFFUS/[place] [address] PAINFUL 12-20-2012 [place] RESPIRATION VALLEY INTERNAL MED 36141 DIAB W/O 12-17-2012 M E D MENTION SUPPLIES COMP TYPE II/UNS TYPE UNCNTRL 20107 URINARY 11-27-2012 [place] FREQUENCY VALLEY INTERNAL MEDI 6279 UNSPECIFIED 11-13-2012 [facility] MENOPAUSAL& INC POSTMENOPAU HERBERT DISORDER 12760 PATELLAR 11-13-2012 [facility] TENDINITIS PHYSICIANS GROUP 48693 ACHILLES 11-13-2012 [place] BURSITIS OR HOME TENDINITIS MEDICAL EQUIPME 97335 OTHER 11-13-2012 [facility] SYNOVITIS PHYSICIANS AND GROUP TENOSYNOVIT IS 3368 UNSPECIFIED 11-13-2012 [facility] DISORDER PHYSICIANS OF MUSCLE GROUP LIGAMENT&FA SCIA 61705 DISORDER OF 11-13-2012 [place] BONE AND MEDICAL CARTILAGE IMAGING ASS UNSPECIFIED V4981 ASYMPTOMATI 11-13-2012 [place] C MEDICAL POSTMENOPAU IMAGING ASS HERBERT STATUS 42691 OSTEOARTHRO 11-07-2012 [place] SIS UNSPEC MEDICAL WHETHER IMAGING ASS GEN/LOC LOWER LEG 4739 UNSPECIFIED 10-17-2012 [place] SINUSITIS ALVIN INTERNAL MEDI 6931 DERMATITIS 09-30-2012 [facility] DUE TO FOOD [facility] ALFR[facility] TAKEN INTERNALLY V727 DIAGNOSTIC 09-30-2012 [facility] SKIN AND LU[facility] ALFREDO SENSITIZATI ON TESTS 43620 URGE 08-29-2012 [facility] P 2449 UNSPECIFIED 08-28-2012 [place] ALVIN HYPOTHYROID INTERNAL ISM MEDI 40842 OTHER 08-23-2012 [place] SPECIFIED MEDICAL DISORDERS IMAGING ASS OF BLADDER V7612 OTHER 08-23-2012 [place] SCREENING MEDICAL MAMMOGRAM IMAGING ASS 5932 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 [place]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 7533 OTHER 08-09-2012 [place] 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 0419 BACTERIAL 08-08-2012 [place] INFECTION [facility]IN UNSPECIFIED INTERNAL CCE & UNS MED SITE 25612 DEHYDRATION 08-08-2012 [place] ALVIN INTERNAL MED V7231 ROUTINE 08-05-2012 [facility] SONIA 4720 CHRONIC 08-02-2012 [place] RHINITIS ALVIN INTERNAL MEDI 30251 MASTODYNIA 08-02-2012 [place] ALVIN INTERNAL MEDI 4011 ESSENTIAL 07-09-2012 [facility]YP[facility]SC N, BENIGN 7964 OTHER 07-05-2012 INPATIENT ABNORMAL CARE, [facility] CLINICAL FINDING 68893 COR 07-01-2012 INPATIENT ATHEROSLERO CARE, [facility] UNSPEC TYPE VESSEL [place]/ELSA T 84942 UNSPECIFIED 06-19-2012 [place] VIRAL EMERGENCY INFECTION SERVICES IN CCE & UNS SITE 47560 CONTUSION 06-14-2012 [facility] OF [facility] INC 9233 CONTUSION 06-14-2012 [facility] OF [facility] INC 23240 CONTUSION 06-14-2012 [facility] OF [facility] INC 9599 INJURY 06-14-2012 [place] OTHER AND MEDICAL UNSPECIFIED IMAGING ASS UNSPECIFIED SITE 4659 ACUTE URIS 06-05-2012 [facility] UNSPECIFIED CENTER SITE 8489 UNSPECIFIED 06-05-2012 [facility] SPRAIN AND CENTER STRAIN V8542 BODY MASS 05-23-2012 [facility] 45.0-49.9 CENTER ADULT 48950 ATROPHIC 05-20-2012 [facility] GASTRITIS SURGIAL WITHOUT ASSOCIATE MENTION OF HEMORRHAGE 67413 NAUSEA WITH 05-20-2012 [facility] VOMITING SURGIAL ASSOCIATE V1279 PERSONAL 05-20-2012 [facility] HISTORY OTH PHYS SURG DISEASES CTR DIGESTIVE DISEASE 4660 ACUTE 05-05-2012 [facility]ERGENCY PHYS 40670 ASTHMA, 05-05-2012 [facility] UNSPECIFIED N EMERGENCY , PHYS UNSPECIFIED STATUS 1129 CANDIDIASIS 05-03-2012 [facility] UNSPECIFIED CENTER SITE 4619 ACUTE 05-03-2012 [facility] SINUSITIS, HEALTHCARE UNSPECIFIED CENTER V0481 NEED 04-17-2012 [facility] PROPHYLACTI HEALTHCARE CENTER VACCINATION &INOCULATIO N FLU 59006 ESOPHAGEAL 04-16-2012 [facility] REFLUX SURGIAL ASSOCIATE 5559 REGIONAL 04-16-2012 [facility] ENTERITIS SURGIAL OF ASSOCIATE UNSPECIFIED SITE 04039 POLYURIA 03-29-2012 [facility] [employer] 93971 UNSPECIFIED 03-18-2012 [facility] VAGINITIS PSC AND VULVOVAGINI TIS 6235 LEUKORRHEA 03-18-2012 [facility] NOT PSC SPECIFIED INFECTIVE 6248 OTH SPEC 03-17-2012 INPATIENT NONINFLAMMA CARE, PLLC TORY DISORDER VULVA&PERIN EUM 07592 LOSS OF 02-20-2012 C SOPHIE PARAM LYONS [place] PSC 73130 UNSPECIFIED 02-14-2012 [place] VALLEY ARTHROPATHY INTERNAL MULTIPLE MEDI SITES 17993 ABDOMINAL 02-14-2012 [place] PAIN, VALLEY GENERALIZED INTERNAL MEDI V741 SCREENING 02-14-2012 [place] EXAMINATION VALLEY FOR INTERNAL PULMONARY MEDI TUBERCULOSI S 71248 ABDOMINAL 02-07-2012 [facility] PAIN, LEFT [facility] UPPER INC QUADRANT 85899 VASCULAR 01-06-2012 [facility] ES OF CONJUNCTIVA 80959 SWELLING OR 01-06-2012 [facility] EYE 58037 REDNESS OR 01-06-2012 [facility] EYE 18394 OTHER 01-06-2012 [place] MEDICAL DISEASES OF SERV NASAL FOUNDATIO CAVITY AND SINUSES 0539 HERPES 12-14-2011 [place] ZOSTER VALLEY WITHOUT INTERNAL MENTION OF MED COMPLICATIO N 7891 HEPATOMEGAL 12-07-2011 [facility] Y MEDICAL IMAGING ASS 12701 PAIN IN 11-11-2011 [place] JOINT, VALLEY ANKLE AND INTERNAL FOOT MED 77194 TRANSIENT 11-10-2011 [facility] ARTHROPATHY [facility] ANKLE AND INC FOOT 6826 CELLULITIS 10-19-2011 [place] AND ABSCESS VALLEY OF LEG INTERNAL EXCEPT FOOT MED 4780 HYPERTROPHY 10-12-2011 [facility] OF NASAL [facility] ALFREDO TURBINATES 9164 HIP THI 10-03-2011 [facility] LEG&ANK VALLEY INSECT BITE INTERNAL MED NONVENOMOUS W/O INF E9064 BITE OF 10-03-2011 [place] NONVENOMOUS [facility]IN ARTHROPOD INTERNAL MED 84094 TRANSIENT 09-25-2011 [facility] VISUAL LOSS [facility] INC 16591 SCOTOMA 09-25-2011 [facility] INVOLVING [facility] CENTRAL INC AREA IN VISUAL FIELD 24069 DISORDERS 09-25-2011 [facility] VISUAL [facility] CORTEX INC ASSOCIATED W/NEOPLASMS 7842 SWELLING 09-25-2011 [place] MASS OR MEDICAL LUMP IN IMAGING ASS HEAD AND NECK 51267 BORDERLINE 09-15-2011 KE[facility] GLAUC OPEN JAM ANGLE BL FINDINGS LOW RSK 31408 CHRONIC 09-07-2011 [facility] OBSTRUCTIVE [facility]FR[facility]O 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EXACERBATIO N 43772 OBSTRUCTIVE 08-30-2011 [place] CHRONIC VALLEY BRONCHITIS INTERNAL WITH MED EXACERBATIO N 4293 CARDIOMEGAL 08-17-2011 [facility] Y MEDICAL IMAGING ASS 25453 CHRONIC 08-09-2011 [facility] TENSION JAM TYPE HEADACHE 72803 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 14309 DIAB 06-25-2011 [facility] W/RENAL [facility] MANIFESTS INC TYPE I [JUV TYPE] UNCNTRL 34395 OBST 06-25-2011 [facility] CHRONIC [facility] BRONCHITIS INC W/ACUTE BRONCHITIS 12126 NAUSEA 06-25-2011 [facility] EMERGENCY SERVICES 7841 THROAT PAIN 06-06-2011 [place] [facility] SERV F[facility] 89759 OTHER 05-25-2011 [facility] SYMPTOMS [facility] INVOLVING INC HEAD AND NECK 4721 CHRONIC 05-15-2011 E[facility], NOSE PHARYNGITIS AND THROAT SPECIAL 462 ACUTE 05-09-2011 [place] PHARYNGITIS ALVIN INTERNAL MED 92946 UNSPECIFIED 04-12-2011 [facility] PHYSICIANS ARTHROPATHY LA ANKLE AND FOOT 6989 UNSPECIFIED 03-28-2011 [facility] PRURITIC [facility] DISORDER INC 6929 CONTACT 03-27-2011 DERMATOLOGY DERMATITIS& OTHER CONSULTANTS ECZEMA DUE PSC UNSPEC CAUSE 73090 WHEEZING 03-20-2011 [place] [facility] 7391 NONALLOPATH 03-08-2011 KAV[facility] GONZALES IC LESION OF CERVICAL REGION NEC 4548 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 SERVICES EXTREMITIES W/OTH COMPS 7827 SPONTANEOUS 02-23-2011 [facility] ECCHYMOSES [facility] INC 59581 CONTUSION 02-23-2011 [place] OF THIGH EMERGENCY SERVICES 4439 UNSPECIFIED 02-17-2011 [place] PERIPHERAL MEDICAL VASCULAR IMAGING ASS DISEASE 1101 DERMATOPHYT 02-10-2011 [facility] MAR OSIS OF NAIL 98737 DIAB 02-10-2011 [facility] W/NEURO MANIFESTS TYPE II/UNS NOT UNCNTRL 64290 DIAB 02-10-2011 [facility] MAR W/PERIPH CIRC D/O TYPE II/UNS NOT UNCNTRL 63929 ABDOMINAL 01-18-2011 [place] PAIN RIGHT MEDICAL LOWER IMAGING ASS QUADRANT 72429 HYPERSOMNIA 12-27-2010 [facility] WITH SLEEP DEIDRA APNEA UNSPECIFIED 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 51910 OTHER 10-26-2010 [facility] ALTERATION [facility] OF INC CONSCIOUSNE SS 9953 ALLERGY 09-13-2010 [facility] UNSPECIFIED AMBULANCE NOT SERVICE ELSEWHERE CLASSIFIED V1272 PERSONAL 08-25-2010 [facility] HISTORY OF [facility] COLONIC INC POLYPS 42606 BACKGROUND 07-28-2010 [facility] DI[facility]ETIC VISION RETINOPATHY 75412 UNSPECIFIED 07-27-2010 [facility] INFECTIVE [facility] OTITIS INC EXTERNA 24463 HYPOXEMIA 06-27-2010 [place] [facility] 5589 OTH&UNSPEC 10-12-2009 [place] NONINFECTIO EMERGENCY US SERVICES GASTROENTER ASSOCIATES ITIS&COLITI S 32013 PAPANICOLAO 04-16-2009 PATHOLOGY & U SMEAR OF CYTOLOGY VAGINA WITH LAB ASC-US 36229 ABDOMINAL 04-14-2009 [place] PAIN, ALVIN EPIGASTRIC INTERNAL MED 08221 ASTHMA 03-19-2009 [place] UNSPECIFIED EMERGENCY WITH SERVICES EXACERBATIO ASSOCIATES N 7359 NONALLOPATH 03-17-2009 [place] IC LESION FAMILY OF LUMBAR CHIROPRACTI REGION NEC C 5999 UNSPECIFIED 03-09-2009 DONNIE DUEÑAS OF URETHRA&URI NARY TRACT 09396 OSTEOARTHRO 03-09-2009 Mat[place] DUEÑAS INVLV MX CHELSY W SITES BUT NOT SPEC GEN 72947 OTHER 02-18-2009 [place] ABNORMAL EMERGENCY GLUCOSE SERVICES ASSOCIATES V5883 ENCOUNTER 01-25-2009 CARDIOLOGY FOR ASSOCIATES THERAPEUTIC OF DRUG [place] MONITORING 4580 ORTHOSTATIC 01-14-2009 [facility] AMBULANCE HYPOTENSION SERVICE 39893 ASPHYXIA 01-14-2009 [place] [facility]OC[facility]ATES 7336 TIETZES 12-16-2008 [place] DISEASE ALVIN INTERNAL MED 72629 STOMATITIS 12-04-2008 [facility], AND CHELSY [place] MUCOSITIS UNSPECIFIED 9778 POISONING 11-26-2008 [place] OTHER SPEC EMERGENCY DRUGS&MEDIC SERVICES INAL ASSOCIATES SUBSTANCES 04369 UNSPECIFIED 10-30-2008 [facility], SITE OF CHELSY Fang ANKLE SPRAIN AND STRAIN E8498 OTHER 10-28-[address] [place] [address] OF IMAGING OCCURRENCE ASSOCIATES E8859 FALL FROM 10-28-2008 [place] OTHER MEDICAL SLIPPING IMAGING TRIPPING OR ASSOCIATES STUMBLING 7873 FLATULENCE 10-21-2008 [place] MEDICAL ERUCTATION SERV AND GAS FOUNDATIO PAIN 59080 VOMITING 09-22-2008 [facility] EMERGENCY SERVICES ASSOCIATES 45850 VARIANTS 08-06-2008 [facility] MIGRAINE CHELSY [place] NEC INTRACT MIGRAINE W/O SM 19316 UNS 07-24-2008 [facility] GASTRITIS&G CHELSY [place] ASTRODUODIT IS W/O MENTION HEMORR 04961 ABDOMINAL/P 05-25-2008 [facility] ELVIC [facility] [place] INC MASS/LUMP UNSPEC SITE 76607 NEPHROTIC 04-27-2008 [facility] SYND W/OTH [facility] PATHAL LES INC DZ CLASS ELSW 23052 OTHER SPEC 04-15-2008 [place] [facility] GASTRITIS SERV WITHOUT FOUNDATIO MENTION HEMORRHAGE 62080 ERYTHEMA 03-04-2008 [facility] DUE TO BURN [facility] OF INC ABDOMINAL WALL 31736 BLISTERS 03-04-2008 RODRIGUEZ W/EPIDERMAL NATIONAL LOSS DUE CORPORATION BURN ABD WALL 46269 DERMATITIS 02-23-2008 [facility] DUE TO [facility]OS[facility] OTHER INC RADIATION 46909 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-2007 [facility] CARDIOLOGY [place] CORONARY ARTERY 85557 OTHER 12-18-2007 [facility]SPNE[facility] RESPIRATORY ABNORMALITI ES 7931 NONSPEC 12-18-2007 [facility] FIND RAD [facility] OTH EXAM HOSP BODY STRUCT LUNG FIELD 92203 NONSPECIFIC 12-18-2007 [facility] ABNORMAL [facility] ELECTROCARD HOSP IOGRAM V142 PERSONAL 12-18-2007 [facility] HISTORY OF [facility] ALLERGY TO HOSP SULFONAMIDE S 2443 OTHER 10-04-2007 [facility] IS PROF SERV 2810 PERNICIOUS 09-20-2007 [place] ANEMIA ALVIN INTERNAL MED 7244 THORACIC/ANIL 09-17-2007 DANGELO HOFFOSACRBENJAMIN [...] 20 AI AT 61 09 09 D TX E 0 PH CH 10 AR AE [...] 01 30 30 RI 79 GH Ac MT 00 -0 -2 .0 TE 42 AN ti EX 24 2- 4- 00 23 TA ve A 11 20 20 AI 5 53 09 09 D RA MG 0 PH ME AR SH TA M BL #3 ET 93 8 ZY 00 08 09 01 30 30 RI 79 GH Ac MT 00 -0 -1 .0 TE 42 AN [...] ti IN 12 8- 0- 00 43 TX ve IR 17 20 20 AI E [...] 20 AI LI 70 09 09 D TX N 5 PH CH 50 AR AE [...] -1 -2 .0 TE 04 NO ti MT 80 2- 7- 00 86 LD ve [...] 00 30 30 RI 79 GH Ac MT 00 -0 -1 .0 TE 42 AN [...] -1 -3 .0 TE 04 NO ti MT 80 2- 0- 00 86 LD ve [...] 80 1- 0- 00 15 LD ve TX 21 20 20 AI DE 61 09 [...] 4- 2- 00 SI 15 ON ve MT 02 20 20 DE ED 20 09 [...] -1 -0 .0 TE 04 NO ti MT 80 2- 2- 00 86 LD ve [...] -1 -0 .0 TE 04 NO ti MT 80 2- 4- 00 86 LD ve [...] MG 93 8 CA PS UL E MT 37 05 05 00 28 28 RI [...] ti LI 91 8- 1- 00 90 TX ve N 83 20 20 AI E [...] AN RA 30 09 09 D TO TX 5 PH NI DE AR O M [...] 09 D RI TA 1 PH CH TX AR AR N- M D CA #3 W FF 93 8 50 -3 25 -4 0 CI 00 04 04 00 20 10 RI 77 AR Ac MT 17 -1 -2 .0 TE 97 NO [...] -1 -2 .0 TE 04 NO ti MT 80 2- 3- 00 86 LD ve [...] LL 55 08 09 D 6 PH TTAO AR HN M #3 93 8 TR [...] -1 -2 .0 TE 04 NO ti MT 80 2- 6- 00 86 LD ve [...] ti LI 91 8- 2- 00 90 TX ve N 83 20 20 AI E [...] -1 -2 .0 TE 04 NO ti MT 80 2- 6- 00 86 LD ve [...] 09 D RI TA 1 PH CH TX AR AR N- M D CA #3 W FF 93 8 50 -3 25 -4 0 CI 00 02 02 00 20 10 RI 77 AR Ac MT 17 -1 -2 .0 TE 04 NO [...] AN RA 30 09 09 D TO TX 5 PH NI DE AR O M 10 #3 93 MG 8 TA BL ET NO 00 11 01 01 10 30 RI 75 MC Ac VO 16 -0 -3 .0 TE 72 KE ti LI 91 8- 0- 00 90 TX ve N 83 20 20 AI E [...] 66 08 09 D 10 0 PH ATTO AR HN MG M #3 TA 93 [...] AR M D #3 W 93 8 MT 00 09 01 01 40 20 RI [...] -0 -0 .0 TE 32 KE ti MT 80 6- 1- 00 28 TX ve OL 52 20 20 AI E [...] 00 60 30 RI 76 AR Ac MT 09 -1 -1 .0 TE 18 NO [...] ti LI 91 8- 0- 00 90 TX ve N 83 20 20 AI E 70 71 08 08 D JR -3 1 PH 0 AR WI 10 M LL 0 #3 IA UN 93 M IT 8 F /M L AL BI 00 03 11 02 30 30 RI 72 MC Ac SO 37 -0 -2 .0 TE 32 KE ti MT 80 6- 0- 00 28 TX ve OL 52 20 20 AI E [...] 34 2- 0- 00 11 LD ve MT 59 20 20 AI ED 31 08 [...] 08 D RI TA 1 PH CH TX AR AR N- M D CA #3 W FF 93 8 50 -3 25 -4 0 CI 00 09 10 00 20 10 RI 75 AR Ac MT 17 -2 -0 .0 TE 17 NO [...] W MG 93 8 TA BL ET MT 37 09 09 00 28 28 RI 74 AR Ac IL 00 -1 -2 .0 TE 92 NO ti OS 00 1- 6- 00 85 LD ve EC 45 20 20 AI 50 08 08 D RI OT 2 PH CH C AR AR 20 M D .6 #3 W 93 MG 8 TA BL ET MT 00 09 09 00 40 20 RI [...] 34 4- 1- 00 10 LD ve MT 59 20 20 AI ED 31 08 [...] ti LI 91 1- 1- 00 61 TX ve N 83 20 20 AI E [...] ti LI 91 1- 8- 00 61 TX ve N 83 20 20 AI E [...] ti LI 91 1- 7- 00 61 TX ve N 83 20 20 AI E [...] #3 W 93 TA 8 BL ET MT 00 06 07 00 40 10 RI [...] 82 5- 3- 00 76 Av ve MT 07 20 20 AI ai IL 20 [...] ti TH 81 4- 2- 00 59 TX ve YR 80 20 20 AI E [...] 34 9- 5- 00 01 LD ve MT 59 20 20 AI ED 31 08 [...] -0 -0 .0 TE 32 t ti MT 80 6- 8- 00 28 Av ve [...] 00 20 10 RI 72 No Ac MT 17 -1 -2 .0 TE 89 t [...] -0 -0 .0 TE 32 t ti MT 80 6- 7- 00 28 Av ve [...] 25 4- 6- 00 61 Av ve MT 03 20 20 AI ai IL 26 [...] AND 9 [facility]ARE [facility] C[facility] CALIBRATO R SOLUTION/ CHIPS LANCETS A4259 DIABETES DIABETES PER BOX 9 CARE [facility]UB [facility] ESOPHAGOG 4516 [facility] TAYLOR ASTRODUOD 8 [facility] ENOSCOPY [facility] WITH CLOSED BIOPSY LEFT 3722 [facility]EN[facility] HEART 8 [facility] CARDIAC HOSP HOSP CATHETERI ZATION CORONARY 8856 [facility] ARTERIOGR 8 [facility] APHY HOSP HOSP USING TWO CATHETERS ANGIOCARD 8853 [facility]AL IOGRAPHY 8 [facility] OF LEFT HOSP HOSP HEART STRUCTURE S Encounters Encounter Start End Date Code Location Performer Type Date [facility] - [place] 7 [facility] [place] [facility] [place] [facility] [place] [facility] - 7 7 [facility] - 7 7 [facility] - 7 7 [facility] - 7 7 [facility] - 7 7 [facility] - 7 7 [facility] - 7 7 [facility] - 7 7 [facility] - 7 7 [facility] - 7 7 [facility] - OTHER 7 7 [facility] - OTHER 7 7 [facility] - 7 7 [facility] - 7 7 [facility] - 7 7 [facility] - 7 7 [facility] - 7 7 [facility] - 7 7 [facility] - 7 7 [facility] - OTHER 7 7 [facility] - 7 7 [facility] - OTHER 7 7 [facility] - 7 7 [facility] - 7 7 [facility] - 7 7 [facility] - OTHER 7 7 [facility] - 7 7 [facility] - 7 7 [facility] - 6 6 [facility] - 6 6 [facility] - 6 6 [facility] - 6 6 [facility] - 6 [facility] - 6 6 [facility] - 6 6 [facility] - 6 6 [facility] - 6 6 [facility] - 6 6 [facility] - 6 6 [facility] - 6 6 [facility] - 6 6 [facility] - 6 6 [facility] - 6 6 [facility] - OTHER 6 6 [facility] - OTHER 6 6 [facility] - OTHER 5 5 [facility] - 5 5 [facility] BR[facility]ON - 5 5 [facility] BR[facility]ON - 5 5 [facility] BR[facility]ON - 5 5 [facility] BR[facility]ON - 5 5 [facility] BR[facility]ON - 5 5 [facility] BRANDON - 5 5 [facility] BRANDON - 5 5 [facility] - 5 5 [facility] BR[facility] - OTHER 5 5 [facility] - 5 5 [facility] BR[facility] - 5 5 [facility] 4 4 [facility] - 4 4 [facility] 4 4 [facility] - OTHER 4 4 [facility] 4 [facility] - [facility] 3 [facility] - [facility] 2 2 [facility] - 2 2 [facility] - [facility] - 1 [facility] - 9 9 [facility] - 9 [facility] [facility] 9 [facility] [id number] MARLO VIDES, DEPT 9 9 EMERGENCY [facility] VISIT SERVICES ER R HIGH SEVERITY& ASSOCIATE THREAT S [facility] - 9 9 [facility] OFFICE [id number] LEANA DUEÑAS OUTPATISABRINA 9 9 [facility] T VISIT 15 MINUTES [facility] - 9 9 [facility] T OFFICE [id number] LEANA DUEÑAS OUTPATISABRINA 9 9 [facility] T VISIT 15 MINUTES OFFICE [id number] LEANA DUEÑAS OUTPATIEN 9 9 [facility] T VISIT 15 MINUTES OFFICE 23119 LEANA DUEÑAS OUTPATISABRINA 9 9 [facility] T VISIT 15 MINUTES OFFICE 46986 NEEL BARNARDPATISABRINA 9 9 [facility] T VISIT SERV 25 FOUNDATIO [facility] - 8 8 [facility] - 8 8 [facility] - 8 8 [facility] - 8 8 [facility] - 8 8 [facility] - 8 8 [facility] - 8 8 [facility] - 8 8 [facility] - 8 8 [facility] - 8 8 [facility] - 8 8 [facility] - 8 8 [facility] 8 8 [facility] 8 [facility]
[2017-05-31 02:05] LABS: HEMOGLOBIN 11.7 g/dL (12.2-16.2); LYMPH # 3.1 K/mm3 (0.7-4.5); LYMPH % 32.4 % (10-50.0)
--- OUTSIDE RECORDS SUMMARY | 2017-05-31 02:07 | External Medical Summary Rpt | CCD ---
Author Author , LEOBARDO Organization [facility] Address Unknown Phone [email or web address] Immunization Name Date Rout CVX Reac Dose [...]
--- OUTSIDE RECORDS SUMMARY | 2017-05-31 02:07 | External Medical Summary Rpt | CCD ---
Author Author , LEOBARDO Organization [facility] Address Unknown Phone [email or web address] Immunization Name Date Rout CVX Reac Dose [...]
--- OUTSIDE RECORDS SUMMARY | 2017-05-31 02:08 | External Medical Summary Rpt ---
Author Author LEOBARDO Orion, LEOBARDO [employer] Address Unknown Phone Unavailable Results Ammonia [Mass/volume] in Unspecified specimen Observa Value Referen Units Interpr Notes Date tion ce etation Range Ammonia 19 - 54 umoL/L Low AMMONIA May 14 [Mass/vol October 4:15 ume] in FALSELY PM Unspecifi ELEVATED ed DUE TO specimen SLIGHT HEMOLYSIS Comprehensive metabolic 2000 panel in Serum or Plasma Observa Value Referen Units Interpr Notes Date tion ce etation Range Albumin/G 1.1 - 1.8 No Low No May 14 lobulin informati informati 2016 3:30 [Mass on in on in PM ratio] in source source Serum or data data Plasma Albumin 3.4 - 5.0 gm/dL Normal No May 14 [Mass/vol informati 2016 3:30 ume] in on in PM Serum or source Plasma data Alkaline 46 - 116 U/L Normal No May 14 phosphata informati 2016 3:30 se on in PM [Enzymati source c data activity/ volume] in Serum or Plasma Bilirubin 0.2 - 1.0 mg/dL Normal No May 14 .total informati 2016 3:30 [Mass/vol on in PM ume] in source Serum or data Plasma Urea 7 - 18 mg/dL High No May 14 nitrogen informati 2016 3:30 [Mass/vol on in PM ume] in source Serum or data Plasma Calcium 8.5 - mg/dL Normal No May 14 [Mass/vol 10.1 informati 2017 3:30 ume] in on in PM Serum or source Plasma data Chloride 98 - 107 mmoL/L Normal No May 14 [Moles/vo informati 2016 3:30 lume] in on in PM Serum or source Plasma data Carbon 21.0 - mmoL/L Normal No May 14 dioxide, 32.0 informati 2017 3:30 total on in PM [Moles/vo source lume] in data Serum or Plasma Creatinin 0.55 - mg/dL High No Nov 20 e 1.02 informati 2017 3:30 [Mass/vol on in PM ume] in source Serum or data Plasma Creatinin 50 - 200 ML/MIN Normal No May 14 e renal informati 2016 3:30 clearance on in PM source predicted data by Cockcroft -Gault formula Estimated 59- ML/MIN Low REFERENCE May 14 RANGE: 2016 3:30 glomerula >60 PM r ML/MIN/1. filtratio 73 SQUARE n rate METERSIf (GF this patient is -A merican, then multiply theresult by 1.210. Globulin 1.3 - 3.2 gm/dL High No May 14 [Mass/vol informati 2016 3:30 ume] in on in PM Serum source data Glucose 74 - 106 mg/dL High May 14 [Mass/vol informati 2016 3:30 ume] in on in PM Serum or source Plasma data Potassium 3.5 - 5.1 mmoL/L Normal No May 142016 3:30 [Moles/vo on in PM lume] in source Serum or data Plasma Sodium 136 - 145 mmoL/L Normal May 14 [Moles/vo ati 2016 3:30 lume] in on in PM Serum or source Plasma data Aspartate 15 - 37 U/L Normal No May 142016 3:30 aminotran on in PM sferase source [Enzymati data c activity/ volume] in Serum or Plasma Alanine 12 - 78 U/L Normal No May 14 aminotran 2016 3:30 sferase on in PM [Enzymati source c data activity/ volume] in Serum or Plasma Protein 6.4 - 8.2 gm/dL Normal May 14 [Mass/vol informati 2016 3:30 ume] in on in PM Serum or source Plasma data CBC W Auto Differential panel in Blood Observa Value Referen Units Interpr Notes Date tion ce etation Range Basophils 0 - 0.2 K/MM3 Normal No May 14ati 2016 3:30 [#/volume on in PM ] in source Blood by data Automated count Basophils 0.1 - 2.0 % Normal No May 14 /100 informati 2016 3:30 leukocyte on in PM s in source Blood by data Automated count Eosinophi 0.0 - 0.4 K/mm3 Normal No May 14 ls ati 2016 3:30 [#/volume on in PM ] in source Blood by data Automated count Eosinophi 0.1 - % Normal No May 14 ls/100 12.0 informati 2016 3:30 leukocyte on in PM s in source Blood by data Automated count Granulocy 1.8 - 7.8 K/mm3 Normal No May 14 meagan informati 2016 3:30 [#/volume on in PM ] in source Blood by data Automated count Granulocy 37.0 - % Normal No May 14 meagan/100 80.0 informati 2016 3:30 leukocyte on in PM s in source Blood by data Automated count Hematocri 37.0 - % Normal No May 14 t [Volume 47.0 informati 2016 3:30 on in PM Fraction] source of Blood data Hemoglobi 12.2 - g/dL Normal No May 14 n 16.2 informati 2016 3:30 [Mass/vol on in PM ume] in source Blood data Lymphocyt 0.7 - 4.5 K/mm3 Normal No May 14 es informati 2016 3:30 [#/volume on in PM ] in source Unspecifi data ed specimen by Automated count Lymphocyt 10 - 50.0 % Normal No May 14 informati 2016 3:30 [#/volume on in PM ] in source Unspecifi data ed specimen by Automated count Erythrocy 27 - 31.2 pg Normal No May 14 te mean informati 2016 3:30 corpuscul on in PM ar source hemoglobi data n [Entitic mass] Erythrocy 31.8 - g/dl Normal No May 14 te mean 35.4 informati 2016 3:30 corpuscul on in PM ar source hemoglobi data n concentra tion [Mass/vol ume] by Automated count Erythrocy 82.2 - fl Normal No May 14 te mean 97.8 informati 2016 3:30 corpuscul on in PM ar volume source [Entitic data volume] by Automated count Monocytes 0.1 - 1.0 K/mm3 Normal No May 14 informati 2016 3:30 [#/volume on in PM ] in source Blood by data Automated count Monocytes 1.7 - 9.3 % Normal No May 14 informati 2016 3:30 leukocyte on in PM s in source Blood by data Automated count Platelet 7.4 - fl Low No May 14 mean 10.4 informati 2016 3:30 volume on in PM [Entitic source volume] data in Blood by Automated count Platelets 142 - 424 K/mm3 No No May 14 informati informati 2016 3:30 [#/volume on in on in PM ] in source source Blood data data Erythrocy 4.2 - 5.4 M/mm3 Normal No May 14 meagan inform2016 3:30 [#/volume on in PM ] in source Amniotic data fluid Erythrocy 11.5 - % Normal No May 14 te 17.5 ati 2016 3:30 distribut on in PM ion width source [Entitic data volume] by Automated count Leukocyte 4.8 - K/MM3 Normal No May 14 s 10.8 informati 2016 3:30 [#/volume on in PM ] in source Blood data Urinalysis dipstick W Reflex Microscopic panel [...] 8.5 No Normal No May 09 Urine informati informati 2017 2:15 on in on in PM source [...] No No May 09 of informa informa inform2016 Urine tion in tion in tion in [...] 3+ NEG No Abnorma No May 09 [Pres informa l inform2016 ce] in tion in tion in 2:15 PM Urine source source sedimen data data t by Light microsc opy Nitrite POSITIV NEG No Abnorma No May 09 E informa l inform2016 [Presen tion in tion in 2:15 PM ce] in source source Urine data data by Test strip pH of 5.0 - 8.5 No Normal No May 09 Urine informati informati 2016 2:15 on in on in PM source source data data Protein NEG mg/dL No No May 09 [Mass/vol informati informati 2016 [...] Basophils 0 - 0.2 K/MM3 Normal No May 09 informati 2016 2:05 [#/volume on in PM ] in source Blood by data Automated count Basophils 0.1 - 2.0 % Normal No Apr 15 /100 informati 2017 2:05 leukocyte on in PM s in source Blood by data Automated count Eosinophi 0.0 - 0.4 K/mm3 Normal No May 09 ls informati 2016 2:05 [#/volume on in [...] 50.0 % Normal No May 09 es 2016 2:05 [#/volume on in PM ] in source Unspecifi data ed specimen by Automated count Erythrocy 27 - 31.2 pg Low No May 09 te mean informati 2016 2:05 corpuscul on in PM [...] 0.1 - 1.0 K/mm3 Normal No May 09ati 2016 2:05 [#/volume on in PM ] in source Blood by data Automated count Monocytes 1.7 - 9.3 % Normal No Apr 15 /100 informati 2016 2:05 leukocyte on in PM s in source Blood by data Automated count Platelet 7.4 - fl Low No May 09 mean 10.4 informati 2016 2:05 volume on in PM [Entitic source volume] data in Blood by Automated count Platelets 142 - 424 K/mm3 Normal No May 09 inform2016 2:05 [#/volume on in PM ] [...] High No May 09 s 10.8 informati 2016 2:05 [#/volume on in PM [...] Normal No May 09 [Mass/vol 10.1 informati 2016 2:05 ume] in on in [...] Plasma Sodium 136 - 145 mmoL/L Low May 09 [Moles/vo informati 2016 2:05 lume] in on in PM Serum or source Plasma data Aspartate 15 - 37 U/L Low No May 09 informati 2016 2:05 aminotran on in PM sferase source [Enzymati data c activity/ volume] in Serum or Plasma Alanine 12 - 78 U/L Normal May 09 aminotran informati 2016 2:05 sferase on in PM [Enzymati source c data activity/ volume] in Serum or Plasma Protein 6.4 - 8.2 gm/dL Normal May 09 [Mass/vol informati 2016 2:05 ume] in on in PM Serum or source Plasma data Lipase [Enzymatic activity/volume] in Serum or Plasma Observa Value Referen Units Interpr Notes Date ti ce etation Range Lipase 73 - 393 [...] Interpr Notes Date ti ce etation Range Urea 7 - 18 [...] No Jan 09 mine E informa informa 2016 [Presen tion in tion in 2:27 AM ce] in source source Urine data data by Screen method Barbitura <200 ng/mL No No Jan 09 emagan informati informati 2017 2:27 [Mass/vol on in [...] ng/mL No No Jan 09 informati informati 2016 2:27 [Mass/vol on in [...] 0.4 K/mm3 Normal No Jan 03 ls ati 2016 7:50 [#/volume on in PM ] [...] Low No Jan 03 t [Volume 47.0 ati 2016 7:50 on in PM Fraction] source of Blood data Hemoglobi 12.2 - g/dL Low No Jan 03 n 16.2 informati 2017 7:50 [Mass/vol on in PM ume] in source Blood data Lymphocyt 0.7 - 4.5 K/mm3 Normal No Jan 03 es informati 2017 [...] - 9.3 % Normal No Jan 03 / informati 2017 7:50 leukocyte on in PM [...] - 2.0 % Normal No Dec 23 / inform2016 leukocyte on in 10:20 PM s in source Blood by data Automated count Eosinophi 0.0 - 0.4 K/mm3 Normal No Dec 23 ls ati 2016 [#/volume on in 10:20 PM ] in source Blood by data Automated count Eosinophi 0.1 - % Normal No Dec 23 ls/100 12.0 inform2016 leukocyte on in 10:20 PM s in source Blood by data Automated count Granulocy 1.8 - 7.8 K/mm3 High No Dec 23 meagan 2016 [#/volume on in 10:20 PM ] in source Blood by data Automated count Granulocy 37.0 - % Normal No Dec 23 meagan/100 80.0 inform2016 leukocyte on in 10:20 PM s [...] Low No Dec 23 te mean 97.8 2016 corpuscul on in 10:20 PM ar [...] 5.4 M/mm3 Normal No Dec 23 meagan inform2016 [#/volume on in 10:20 PM ] [...]
--- OUTSIDE RECORDS SUMMARY | 2017-05-31 02:08 | External Medical Summary Rpt ---
Author Author LEOBARDO Orion, [employer]OB[employer]O [email or web address] Organization [employer] Address Unknown Phone Unavailable [...]
[2017-05-31] MEDS ORDERED: ONDANSETRON 4MG4 M1 PO (02:23)
[2017-05-31 02:28] LABS: URINE BILIRUBIN - DIPSTICK NEGATIVE (NEG); URINE BLOOD NEGATIVE (NEG)
[2017-05-31 02:36] LABS: BUN 11 mg/dL (7-18)
[2017-05-31 02:38] LABS: GFR (ESTIMATED) 57 ML/MIN (59-)
[2017-05-31 03:37] VITALS: BP 157/51
--- NOTE | 2017-05-31 06:32 | RADIOLOGY REPORT PS360 ---
CT ABD PELVIS W/O CONTRAST CLINICAL INDICATION: Generalized abdominal pain ABD PAIN ORDERING PHYSICIAN: Daniela Shah MD PATIENT AGE: 56 years COMPARISON: 08/15/2016 TECHNIQUE: Axial images obtained with sagittal and coronal reformats. PROCEDURE: Oral Contrast: None IV Contrast: None . FINDINGS: The lung bases are clear. No focal liver lesion evident. 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 Pancreatic fatty infiltration noted. There has been a prior cholecystectomy without biliary dilatation. No hydronephrosis or obstructing ureteral calculus. There is cortical scarring of the right kidney as before. No intestinal obstruction or free air. No focal inflammatory change. No evidence of appendicitis or diverticulitis. Prior hysterectomy. There is mild wedging of L1 anteriorly which is developed since the previous exam. There is some mild haziness of the anterior abdominal wall fat not significantly changed. IMPRESSION: 1. No acute intra-abdominal or pelvic findings. 2. Nonacute findings as described above including renal cortical scarring on the right. 3. Mild wedge compression changes involving the L1 vertebral body with loss of height anteriorly of approximately 25-30% which is developed since 08/15/2016.
== END 2017-05-31 03:50 | disposition home or self-care (01) ==
LOC: ER 01:16
PROVIDERS: Emergency Medicine
DX: R10.11 Right upper quadrant pain (principal); N39.0 Urinary tract infection, site not specified
CPT/HCPCS: J2405

== ENCOUNTER → 2017-06-08 | Outpatient (CLI) | payer MEDICARE, MEDICAID ==
[~2017-06-08] MED LIST changes: +ONDANSETRON 4MG4 M1 PO
--- NOTE | 2017-06-08 12:48 | RADIOLOGY REPORT PS360 ---
US ABD(COMPLETE-MULTI ORGANS HISTORY: FATTY LIVER,SPLENOMEGLY, PORTAL HTN ORDERING PHYSICIAN: BRITTANI AGRAWAL PATIENT AGE: 56 years COMPARISON: None FINDINGS: PANCREAS:Unremarkable. No obvious mass or abnormal fluid collection. No ductal dilatation LIVER:No focal liver lesions demonstrated. Homogeneous echogenicity. No intrahepatic biliary ductal dilatation evident. There is appropriate directional blood flow within the portal vein. Portal vein diameter is within normal limits at 12 mm. KIDNEYS:Unremarkable. Normal size and echogenicity. No hydronephrosis GALLBLADDER:Status post cholecystectomy. Common bile duct is normal at 5 mm. AORTA:No evidence of aneurysmal dilatation. SPLEEN:Borderline splenomegaly at 14 cm. ASCITES:None demonstrated. IMPRESSION: 1. Borderline splenomegaly. 2. Otherwise negative abdominal ultrasound.
== END ==
LOC: RAD 09:21
DX: K76.0 Fatty (change of) liver, not elsewhere classified (principal); R16.1 Splenomegaly, not elsewhere classified; K31.89 Other diseases of stomach and duodenum